=== PATIENT | female | born 2000 | race Caucasian/White ===

== ENCOUNTER 2025-06-14 16:36 | Emergency (ER) | payer OTHER, MEDICAID, SELFPAY ==
[2025-06-14 16:46] VITALS: BP 101/59; PULSE 65; RESP 14; TEMP 36.7; O2SAT 97
[2025-06-14 16:56] VITALS: O2SAT 98
--- NOTE | 2025-06-14 17:16 | ED_ITS ---
HPI - General Adult General Chief complaint: Seizure Stated complaint: Seizure History of Present Illness HPI narrative: This is a 25-year-old female with history of pseudoseizures presenting for a seizure. Patient was at work when she had her typical seizure. EMS was called and she was brought to the hospital. The patient is able to answer my questions appropriately. She is declining all workup. She would like to be discharged. Related Data Allergies Allergy/AdvReac Type Severity Reaction Status Date / Time amoxicillin Allergy Severe Anaphylaxis Verified 06/14/25 16:59 Exam Narrative: APPEARANCE: No apparent distress. Head: atraumatic. EYES: EOMI, PERRL NOSE: Atraumatic NECK: Trachea midline RESPIRATORY: No increased rate of breathing CARDIOVASCULAR: RRR, ABDOMINAL: Non-distended MUSCULOSKELETAl: No obvious deformities NEURO: Alert. Cranial nerves 2-12 grossly intact. Sensation light touch, motor function cerebellar function intact for 4 extremities. Gait exam was normal. SKIN:: Warm, dry. Normal color PSYCHIATRIC: Normal affect Course Vital Signs Vital signs: Vital Signs Temperature 98.0 F 06/14/25 16:46 Pulse Rate 65 06/14/25 16:46 Respiratory Rate 14 06/14/25 16:46 Blood Pressure 101/59 L 06/14/25 16:46 Pulse Oximetry 97 06/14/25 16:46 Oxygen Delivery Room Air 06/14/25 16:46 Temperature 98.0 F 06/14/25 16:46 Pulse Rate 65 06/14/25 16:46 Respiratory Rate 14 06/14/25 16:46 Blood Pressure 101/59 L 06/14/25 16:46 Pulse Oximetry 98 06/14/25 16:56 Oxygen Delivery Room Air 06/14/25 16:56 Medical Decision Making [facility] Narrative Medical decision making narrative: -Course: 25-year-old female with pseudoseizures presenting after typical seizure. By time she arrived in the ED she was able to answer questions appropriately. She has declined all intervention or evaluation. She can answer questions appropriately. Her neurologic exam is normal. She will be discharged. -DDX includes but is not limited to: Pseudo-seizure, seizure Vital Signs Vital Signs: Vital Signs Temperature 98.0 F 06/14/25 16:46 Pulse Rate 65 06/14/25 16:46 Respiratory Rate 14 06/14/25 16:46 Blood Pressure 101/59 L 06/14/25 16:46 Pulse Oximetry 97 06/14/25 16:46 Oxygen Delivery Room Air 06/14/25 16:46 Temperature 98.0 F 06/14/25 16:46 Pulse Rate 65 06/14/25 16:46 Respiratory Rate 14 06/14/25 16:46 Blood Pressure 101/59 L 06/14/25 16:46 Pulse Oximetry 98 06/14/25 16:56 Oxygen Delivery Room Air 06/14/25 16:56 Lab Data Labs: Lab Results 06/14/25 Range/Units 17:12 POC Capillary Glucose 94 (65-105) mg/dl Discharge Plan Discharge Clinical Impression: Seizure disorder Patient Disposition: Home Condition: Stable Instructions: Antibiotic Form, Nonepileptic Seizures (ED) Additional Instructions: Please follow-up with your neurologist. If you develop any new symptoms or want to be evaluated by Please return to the ED. Patient Language: Salvadorean
--- OUTSIDE RECORDS SUMMARY | 2025-06-14 18:21 | XMS_ITS | Encounter Summary ---
Author Organization [facility] Address [address] [place] [address] Care Team Providers Care Pharmacist In Charge Owner Name Role Phone Kassy Jay MD Primary Care Provider [phone] Encounter Details Date Type Department Care Team (Late Contact Info) Description 08/01/[address] [facility] Pediatrics - [facility] [address] [place] [address] [place] [address] [place] [address] Social History Tobacco Use Types Packs/Day Years Used Date Smoking Tobacco: Never Assessed Comments Unknown Sex and Gender Information Value Date Recorded Sex Assigned at Not on file Legal Sex Female 4:02 AM REJOINER Gender Identity Not on file Sexual Orientation Not on file documented as of this encounter Plan of Treatment Upcoming Encounters Date Type Department Care Team (Late Contact Info) Description 06/26/2025 9:00 AM CDT Video Visit [facility] Adult Psychiatry [place] [address] [address] Argelia Law NP [address] [address] 08/08/2025 7:30 AM REJOINER Video Visit [facility] Adult Psychiatry [place] [address] [address] [place] [address] Argelia Law NP 1420 [facility] [address] [place] [address] 09/25/2025 8:00 AM REJOINER Office Visit [facility] Primary Care - Kirby Herrmann [address] [place] [address] Kassy Jay MD [address] [place] [address] documented as of this encounter Visit Diagnoses Not on filedocumented in this encounter Additional Health Concerns Infection Onset Date Last Indicated Resolved Time R/O COVID-19 06/02/2021 06/03/2021 06/03/2021 7:34 PM CDT R/O COVID-19 12/22/2022 12/22/2022 12/22/2022 12:2 5 PM CDT R/O COVID-19 09/07/2023 09/07/2023 09/07/2023 9:52 PM REJOINER documented as of this encounter Care Teams Pharmacist In Charge Owner Relationship Specialty Start Date End Date Kassy Jay MD [address] [place] [address] PCP - General Family Practice 12/04/22 documented as of this encounter
--- OUTSIDE RECORDS SUMMARY | 2025-06-14 18:21 | XMS_ITS | Encounter Summary ---
Author Organization [facility] Address [address] [place] [address] Care Team Providers Care Supervising Film Or Videotape Editor Name Role Phone Kassy Jay MD Primary Care Provider [phone] Encounter Details Date Type Department Care Team (Latest Contact Info) Description 02/13/2005 Outpatient Historical [facility] Gustavo Sims ASTHMA UNSPECIFIED (Primary Dx) Social History Tobacco Use Types Packs/Day Years Used Date Smoking Tobacco: Never Assessed Comments Unknown Sex and Gender Information Value Date Recorded Sex Assigned at Not on file Legal Sex Female 4:02 AM NURSE PLASTICS Gender Identity Not on file Sexual Orientation Not on file documented as of this encounter Plan of Treatment Upcoming Encounters Date Type Department Care Team (Late st Contact Info) Description 06/26/2025 9:00 AM CDT Video Visit [facility] Adult Psychiatry [address] [place] [address] Argelia Law NP [address] [place] [address] [place] [address] 08/08/2025 7:30 AM NURSE PLASTICS Video Visit [facility] Adult Psychiatry [address] [place] [address] Argelia Law NP [address] [place] [address] [place] [address] 09/25/2025 8:00 AM NURSE PLASTICS Office Visit [facility] Primary Care - Kirby Herrmann [address] [place] [phone] Kassy Jay MD [address] [place] [place] [phone] documented as of this encounter Visit Diagnoses Diagnosis Unspecified asthma(493.90)- Primary Unspecified asthma documented in this encounter Additional Health Concerns Infection Onset Date Last Indicated Resolved Time R/O COVID-19 06/02/2021 06/03/2021 06/03/2021 7:34 PM CDT R/O COVID-19 12/22/2022 12/22/2022 12/22/2022 12:2 5 PM CDT R/O COVID-19 09/07/2023 09/07/2023 09/07/2023 9:52 PM NURSE PLASTICS documented as of this encounter Care Teams Supervising Film Or Videotape Editor Relationship Specialty Start Date End Date Kassy Jay MD [address] [place] [place] [phone] PCP - General Family Practice 12/04/22 documented as of this encounter
--- OUTSIDE RECORDS SUMMARY | 2025-06-14 18:21 | XMS_ITS | Encounter Summary ---
Author Organization [facility] Address [address] [place] [address] Care Team Providers Care Manager Ccu Name Role Phone Kassy Jay MD Primary Care Provider [phone] Encounter Details Date Type Department Care Team (Late Contact Info) Description 07/06/2002 Outpatient Historical [facility] Pediatrics - [facility] [address] [place] [address] [place] [address] [place] [address] Social History Tobacco Use Types Packs/Day Years Used Date Smoking Tobacco: Never Assessed Comments Unknown Sex and Gender Information Value Date Recorded Sex Assigned at Not on file Legal Sex Female 4:02 AM SHRIMPING BOAT CAPTAIN Gender Identity Not on file Sexual Orientation Not on file documented as of this encounter Plan of Treatment Upcoming Encounters Date Type Department Care Team (Late Contact Info) Description 06/26/2025 9:00 AM CDT Video Visit [facility] Adult Psychiatry [place] [address] [phone] Argelia Law NP [address] [address] 08/08/2025 7:30 AM SHRIMPING BOAT CAPTAIN Video Visit [facility] Adult Psychiatry [place] [address] [place] [address] [place] [address] Argelia Law NP 1420 [facility] [address] [place] [address] 09/25/2025 8:00 AM SHRIMPING BOAT CAPTAIN Office Visit [facility] Primary Care - Kirby Herrmann [address] [place] [address] Kassy Jay MD [address] [place] [address] [address] documented as of this encounter Visit Diagnoses Not on filedocumented in this encounter Additional Health Concerns Infection Onset Date Last Indicated Resolved Time R/O COVID-19 06/02/2021 06/03/2021 06/03/2021 7:34 PM CDT R/O COVID-19 12/22/2022 12/22/2022 12/22/2022 12:2 5 PM CDT R/O COVID-19 09/07/2023 09/07/2023 09/07/2023 9:52 PM SHRIMPING BOAT CAPTAIN documented as of this encounter Care Teams Manager Ccu Relationship Specialty Start Date End Date Kassy Jay MD [address] [place] [address] [phone] PCP - General Family Practice 12/04/22 documented as of this encounter
--- OUTSIDE RECORDS SUMMARY | 2025-06-14 18:21 | XMS_ITS | Encounter Summary ---
Author Organization [facility] Address [address] [place] [address] Care Team Providers Care Psychological Aide Name Role Phone Kassy Jay MD Primary Care Provider [phone] Encounter Details Date Type Department Care Team (Late Contact Info) Description 06/16/2002 Outpatient Historical [facility] Childrens Respiratory and Sleep Medicine [address] [facility] [address] [address] Gustavo Sims Social History Tobacco Use Types Packs/Day Years Used Date Smoking Tobacco: Never Assessed Comments Unknown Sex and Gender Information Value Date Recorded Sex Assigned at Not on file Legal Sex Female 4:02 AM SINGLE STROKE PREFORMER Gender Identity Not on file Sexual Orientation Not on file documented as of this encounter Plan of Treatment Upcoming Encounters Date Type Department Care Team ([facility] Contact Info) Description 06/26/2025 9:00 AM CDT Video Visit [facility] Adult Psychiatry [address] [phone] Argelia aLw NP [address] [place] [address] 08/08/2025 7:30 AM SINGLE STROKE PREFORMER Video Visit [facility] Adult Psychiatry [address] [address] Argelia Law NP [address] [place] [address] [place] [address] 09/25/2025 8:00 AM SINGLE STROKE PREFORMER Office Visit [facility] Primary Care - Kirby Herrmann [address] [place] [address] [address] Kassy Jay MD [address] [place] [address] [address] documented as of this encounter Visit Diagnoses Not on filedocumented in this encounter Additional Health Concerns Infection Onset Date Last Indicated Resolved Time R/O COVID-19 06/02/2021 06/03/2021 06/03/2021 7:34 PM CDT R/O COVID-19 12/22/2022 12/22/2022 12/22/2022 12:2 5 PM CDT R/O COVID-19 09/07/2023 09/07/2023 09/07/2023 9:52 PM SINGLE STROKE PREFORMER documented as of this encounter Care Teams Psychological Aide Relationship Specialty Start Date End Date Kassy Jay MD [address] [place] [place] [phone] PCP - General Family Practice 12/04/22 documented as of this encounter
--- OUTSIDE RECORDS SUMMARY | 2025-06-14 18:21 | XMS_ITS | Encounter Summary ---
Author Organization [facility] Address [address] [place] [address] Care Team Providers Care Channel Program Manager Name Role Phone Kassy Jay MD Primary Care Provider [phone] Encounter Details Date Type Department Care Team (Latest Contact Info) Description 04/13/2002 Outpatient Historical [facility] [place] [address] [facility] [address] [place] [address] UNS ASTHMA WOSTATUS ASTHMATICUS (Primary Dx) Social History Tobacco Use Types Packs/Day Years Used Date Smoking Tobacco: Never Assessed Comments Unknown Sex and Gender Information Value Date Recorded Sex Assigned at Not on file Legal Sex Female 4:02 AM TAILMAN Gender Identity Not on file Sexual Orientation Not on file documented as of this encounter Plan of Treatment Upcoming Encounters Date Type Department Care Team (Late st Contact Info) Description 06/26/2025 9:00 AM CDT Video Visit [facility] Adult Psychiatry [address] [address] Argelia Law NP [address] [id number] 08/08/2025 7:30 AM TAILMAN Video Visit [facility] Adult Psychiatry [address] [address] Argelia Law, EARLY CHILDHOOD LEAD TEACHER [address] [place] [address] [address] [place] [address] 09/25/2025 8:00 AM TAILMAN Office Visit [facility] Primary Care - Kirby Herrmann [address] [address] [address] Kassy Jay MD [address] [place] [address] [address] documented as of this encounter Visit Diagnoses Diagnosis Unspecified asthma(493.90)- Primary Unspecified asthma documented in this encounter Additional Health Concerns Infection Onset Date Last Indicated Resolved Time R/O COVID-19 06/02/2021 06/03/2021 06/03/2021 7:34 PM CDT R/O COVID-19 12/22/2022 12/22/2022 12/22/2022 12:2 5 PM CDT R/O COVID-19 09/07/2023 09/07/2023 09/07/2023 9:52 PM TAILMAN documented as of this encounter Care Teams Channel Program Manager Relationship Specialty Start Date End Date Kassy Jay MD [address] [place] [address] [phone] PCP - General Family Practice 12/04/22 documented as of this encounter
--- OUTSIDE RECORDS SUMMARY | 2025-06-14 18:21 | XMS_ITS | Encounter Summary ---
Author Organization [facility] Address [address] [place] [address] Care Team Providers Care Automatic I Threading Machine Feeder Name Role Phone Kassy Jay MD Primary Care Provider [phone] Encounter Details Date Type Department Care Team (Late Contact Info) Description 09/30/2002 Outpatient Historical [facility] Pediatrics - [facility] [address] [place] [address] [place] [address] [place] [address] Social History Tobacco Use Types Packs/Day Years Used Date Smoking Tobacco: Never Assessed Comments Unknown Sex and Gender Information Value Date Recorded Sex Assigned at Not on file Legal Sex Female 4:02 AM FISHERIES TECHNICAL OFFICER Gender Identity Not on file Sexual Orientation Not on file documented as of this encounter Plan of Treatment Upcoming Encounters Date Type Department Care Team (Late Contact Info) Description 06/26/2025 9:00 AM CDT Video Visit [facility] Adult Psychiatry [place] [address] [address] Argelia Law NP [address] [address] 08/08/2025 7:30 AM FISHERIES TECHNICAL OFFICER Video Visit [facility] Adult Psychiatry [place] [address] [place] [address] [address] [place] [address] Argelia Law NP 1420 [facility] [address] [place] [address] 09/25/2025 8:00 AM FISHERIES TECHNICAL OFFICER Office Visit [facility] Primary Care - Kirby Herrmann [address] [place] [address] [address] Kassy Jay MD [address] [place] [address] documented as of this encounter Visit Diagnoses Not on filedocumented in this encounter Additional Health Concerns Infection Onset Date Last Indicated Resolved Time R/O COVID-19 06/02/2021 06/03/2021 06/03/2021 7:34 PM CDT R/O COVID-19 12/22/2022 12/22/2022 12/22/2022 12:2 5 PM CDT R/O COVID-19 09/07/2023 09/07/2023 09/07/2023 9:52 PM FISHERIES TECHNICAL OFFICER documented as of this encounter Care Teams Automatic I Threading Machine Feeder Relationship Specialty Start Date End Date Kassy Jay MD [address] [place] [address] [phone] PCP - General Family Practice 12/04/22 documented as of this encounter
--- OUTSIDE RECORDS SUMMARY | 2025-06-14 18:21 | XMS_ITS | Encounter Summary ---
Author Organization [facility] Address [address] [place] [address] Care Team Providers Care Medical Laboratory Technologist Name Role Phone Kassy Jay MD Primary Care Provider [phone] Encounter Details Date Type Department Care Team (Latest Contact Info) Description 10/09/2003 Outpatient Historical [facility] Gustavo Sims ASTHMA UNSPECIFIED (Primary Dx) Social History Tobacco Use Types Packs/Day Years Used Date Smoking Tobacco: Never Assessed Comments Unknown Sex and Gender Information Value Date Recorded Sex Assigned at Not on file Legal Sex Female 4:02 AM TIME STUDY TECHNOLOGIST Gender Identity Not on file Sexual Orientation Not on file documented as of this encounter Plan of Treatment Upcoming Encounters Date Type Department Care Team (Late st Contact Info) Description 06/26/2025 9:00 AM CDT Video Visit [facility] Adult Psychiatry [address] [place] [address] Argelia Law NP [address] [place] [address] [place] [address] 08/08/2025 7:30 AM TIME STUDY TECHNOLOGIST Video Visit [facility] Adult Psychiatry [address] [place] [address] Argelia Law NP [address] [place] [address] [place] [address] 09/25/2025 8:00 AM TIME STUDY TECHNOLOGIST Office Visit [facility] Primary Care - Kirby Herrmann [address] [place] [phone] Kassy Jay MD [address] [place] [address] [phone] documented as of this encounter Visit Diagnoses Diagnosis Unspecified asthma(493.90)- Primary Unspecified asthma documented in this encounter Additional Health Concerns Infection Onset Date Last Indicated Resolved Time R/O COVID-19 06/02/2021 06/03/2021 06/03/2021 7:34 PM CDT R/O COVID-19 12/22/2022 12/22/2022 12/22/2022 12:2 5 PM CDT R/O COVID-19 09/07/2023 09/07/2023 09/07/2023 9:52 PM TIME STUDY TECHNOLOGIST documented as of this encounter Care Teams Medical Laboratory Technologist Relationship Specialty Start Date End Date Kassy Jay MD [address] [place] [address] [phone] PCP - General Family Practice 12/04/22 documented as of this encounter
--- OUTSIDE RECORDS SUMMARY | 2025-06-14 18:21 | XMS_ITS | Encounter Summary ---
Author Organization [facility] Address [address] [place] [address] Care Team Providers Care Hot Packer Name Role Phone Kassy Jay MD Primary Care Provider [phone] Encounter Details Date Type Department Care Team (Late Contact Info) Description 04/07/2002 Outpatient Historical [facility] Pediatrics - [facility] [address] [address] [facility] [address] [place] [address] Darren Tabor MD NO ADDRESS ON FILE Social History Tobacco Use Types Packs/Day Years Used Date Smoking Tobacco: Never Assessed Comments Unknown Sex and Gender Information Value Date Recorded Sex Assigned at Not on file Legal Sex Female 4:02 AM BLENDER SNUFF Gender Identity Not on file Sexual Orientation Not on file documented as of this encounter Plan of Treatment Upcoming Encounters Date Type Department Care Team (Late Contact Info) Description 06/26/2025 9:00 AM CDT Video Visit [facility] Adult Psychiatry [address] [address] Argelia Law NP [address] [place] [address] 08/08/2025 7:30 AM BLENDER SNUFF Video Visit [facility] Adult Psychiatry [address] [address] Argelia Law NP [address] [place] [address] [address] [place] [address] 09/25/2025 8:00 AM BLENDER SNUFF Office Visit [facility] Primary Care - Kirby Herrmann [address] [place] [address] Kassy Jay MD [address] [place] [place] [phone] documented as of this encounter Visit Diagnoses Not on filedocumented in this encounter Additional Health Concerns Infection Onset Date Last Indicated Resolved Time R/O COVID-19 06/02/2021 06/03/2021 06/03/2021 7:34 PM CDT R/O COVID-19 12/22/2022 12/22/2022 12/22/2022 12:2 5 PM CDT R/O COVID-19 09/07/2023 09/07/2023 09/07/2023 9:52 PM BLENDER SNUFF documented as of this encounter Care Teams Hot Packer Relationship Specialty Start Date End Date Kassy Jay MD [address] [place] [address] [phone] PCP - General Family Practice 12/04/22 documented as of this encounter
--- OUTSIDE RECORDS SUMMARY | 2025-06-14 18:21 | XMS_ITS | Encounter Summary ---
Author Organization [facility] Address [address] [place] [address] Care Team Providers Care Credit Card Interviewer Name Role Phone Kassy Jay MD Primary Care Provider [phone] Encounter Details Date Type Department Care Team (Late Contact Info) Description 04/21/2003 Outpatient Historical [facility] Pediatrics - [facility] [address] [facility] [address] [facility] [address] [place] [address] [place] [address] [place] [address] Social History Tobacco Use Types Packs/Day Years Used Date Smoking Tobacco: Never Assessed Comments Unknown Sex and Gender Information Value Date Recorded Sex Assigned at Not on file Legal Sex Female 4:02 AM TANK INSULATOR RUBBER Gender Identity Not on file Sexual Orientation Not on file documented as of this encounter Plan of Treatment Upcoming Encounters Date Type Department Care Team (Late Contact Info) Description 06/26/2025 9:00 AM CDT Video Visit [facility] Adult Psychiatry [place] [address] [address] Argelia Law NP [address] [address] 08/08/2025 7:30 AM TANK INSULATOR RUBBER Video Visit [facility] Adult Psychiatry [place] [address] [place] [address] [address] [place] [address] Argelia Law NP 1420 [facility] [address] [place] [address] [address] 09/25/2025 8:00 AM TANK INSULATOR RUBBER Office Visit [facility] Primary Care - Kirby Herrmann [address] [address] Kassy Jay MD [address] [place] [address] [address] documented as of this encounter Visit Diagnoses Not on filedocumented in this encounter Additional Health Concerns Infection Onset Date Last Indicated Resolved Time R/O COVID-19 06/02/2021 06/03/2021 06/03/2021 7:34 PM CDT R/O COVID-19 12/22/2022 12/22/2022 12/22/2022 12:2 5 PM CDT R/O COVID-19 09/07/2023 09/07/2023 09/07/2023 9:52 PM TANK INSULATOR RUBBER documented as of this encounter Care Teams Credit Card Interviewer Relationship Specialty Start Date End Date Kassy Jay MD [address] [place] [address] [phone] PCP - General Family Practice 12/04/22 documented as of this encounter
--- OUTSIDE RECORDS SUMMARY | 2025-06-14 18:21 | XMS_ITS | Encounter Summary ---
Author Organization [facility] Address [address] [place] [address] Care Team Providers Care Procurement Representative Name Role Phone Kassy Jay MD Primary Care Provider [phone] Encounter Details Date Type Department Care Team (Late Contact Info) Description 10/09/2003 Outpatient Historical [facility] Childrens Respiratory and Sleep Medicine [address] [facility] [address] [address] Gustavo Sims Social History Tobacco Use Types Packs/Day Years Used Date Smoking Tobacco: Never Assessed Comments Unknown Sex and Gender Information Value Date Recorded Sex Assigned at Not on file Legal Sex Female 4:02 AM EXPANDED FUNCTION DENTAL ASSISTANT Gender Identity Not on file Sexual Orientation Not on file documented as of this encounter Plan of Treatment Upcoming Encounters Date Type Department Care Team ([facility] Contact Info) Description 06/26/2025 9:00 AM CDT Video Visit [facility] Adult Psychiatry [address] [phone] Argelia Law NP [address] [place] [address] 08/08/2025 7:30 AM EXPANDED FUNCTION DENTAL ASSISTANT Video Visit [facility] Adult Psychiatry [address] [address] Argelia Law NP [address] [place] [address] [place] [address] 09/25/2025 8:00 AM EXPANDED FUNCTION DENTAL ASSISTANT Office Visit [facility] Primary Care - Kirby Herrmann [address] [place] [address] Kassy Jay MD [address] [place] [address] [address] documented as of this encounter Visit Diagnoses Not on filedocumented in this encounter Additional Health Concerns Infection Onset Date Last Indicated Resolved Time R/O COVID-19 06/02/2021 06/03/2021 06/03/2021 7:34 PM CDT R/O COVID-19 12/22/2022 12/22/2022 12/22/2022 12:2 5 PM CDT R/O COVID-19 09/07/2023 09/07/2023 09/07/2023 9:52 PM EXPANDED FUNCTION DENTAL ASSISTANT documented as of this encounter Care Teams Procurement Representative Relationship Specialty Start Date End Date Kassy Jay MD [address] [place] [address] [phone] PCP - General Family Practice 12/04/22 documented as of this encounter
--- OUTSIDE RECORDS SUMMARY | 2025-06-14 18:21 | XMS_ITS | Encounter Summary ---
Author Organization [facility] Address [address] [place] [address] Care Team Providers Care Dependency Case Manager Name Role Phone Kassy Jay MD Primary Care Provider [phone] Encounter Details Date Type Department Care Team (Late Contact Info) Description 10/07/2002 Outpatient Historical [facility] - [facility] [address] [place] [address] [place] [address] [place] [address] Social History Tobacco Use Types Packs/Day Years Used Date Smoking Tobacco: Never Assessed Comments Unknown Sex and Gender Information Value Date Recorded Sex Assigned at Not on file Legal Sex Female 4:02 AM CUSTOMS HOUSE BROKER Gender Identity Not on file Sexual Orientation Not on file documented as of this encounter Plan of Treatment Upcoming Encounters Date Type Department Care Team (Late Contact Info) Description 06/26/2025 9:00 AM CDT Video Visit [facility] Adult Psychiatry [place] [address] [phone] Argelia Law NP [address] [address] 08/08/2025 7:30 AM CUSTOMS HOUSE BROKER Video Visit [facility] Adult Psychiatry [place] [address] [place] [address] [address] [address] Argelia Law NP 1420 [facility] [address] [address] 09/25/2025 8:00 AM CUSTOMS HOUSE BROKER Office Visit [facility] Primary Care - Kirby Herr[place] [address] [place] [address] Kassy Jay MD [address] [place] [address] documented as of this encounter Visit Diagnoses Not on filedocumented in this encounter Additional Health Concerns Infection Onset Date Last Indicated Resolved Time R/O COVID-19 06/02/2021 06/03/2021 06/03/2021 7:34 PM CDT R/O COVID-19 12/22/2022 12/22/2022 12/22/2022 12:2 5 PM CDT R/O COVID-19 09/07/2023 09/07/2023 09/07/2023 9:52 PM CUSTOMS HOUSE BROKER documented as of this encounter Care Teams Dependency Case Manager Relationship Specialty Start Date End Date Kassy Jay MD [address] [place] [address] [address] PCP - General Family Practice 12/04/22 documented as of this encounter
--- OUTSIDE RECORDS SUMMARY | 2025-06-14 18:21 | XMS_ITS | Encounter Summary ---
Author Organization [facility] Address [address] [place] [address] Care Team Providers Care Senior Counsel Commercial Name Role Phone Kassy Jay MD Primary Care Provider [phone] Encounter Details Date Type Department Care Team (Late Contact Info) Description 12/15/2003 Outpatient Historical [facility] Respiratory and Sleep Medicine [address] [facility] [address] [address] Gustavo Sims Social History Tobacco Use Types Packs/Day Years Used Date Smoking Tobacco: Never Assessed Comments Unknown Sex and Gender Information Value Date Recorded Sex Assigned at Not on file Legal Sex Female 4:02 AM PRESCRIPTION CLERK LENSES Gender Identity Not on file Sexual Orientation Not on file documented as of this encounter Plan of Treatment Upcoming Encounters Date Type Department Care Team ([facility] Contact Info) Description 06/26/2025 9:00 AM CDT Video Visit [facility] Adult Psychiatry [address] [phone] Argelia Law NP [address] [place] [place] [address] 08/08/2025 7:30 AM PRESCRIPTION CLERK LENSES Video Visit [facility] Adult Psychiatry [address] [phone] Argelia Law NP [address] [place] [address] [place] [address] 09/25/2025 8:00 AM PRESCRIPTION CLERK LENSES Office Visit [facility] Primary Care - Kirby Herrmann [address] [place] [address] Kassy Jay MD [address] [place] [address] documented as of this encounter Visit Diagnoses Not on filedocumented in this encounter Additional Health Concerns Infection Onset Date Last Indicated Resolved Time R/O COVID-19 06/02/2021 06/03/2021 06/03/2021 7:34 PM CDT R/O COVID-19 12/22/2022 12/22/2022 12/22/2022 12:2 5 PM CDT R/O COVID-19 09/07/2023 09/07/2023 09/07/2023 9:52 PM PRESCRIPTION CLERK LENSES documented as of this encounter Care Teams Senior Counsel Commercial Relationship Specialty Start Date End Date Kassy Jay MD [address] [place] [address] [phone] PCP - General Family Practice 12/04/22 documented as of this encounter
--- OUTSIDE RECORDS SUMMARY | 2025-06-14 18:21 | XMS_ITS | Encounter Summary ---
Author Organization [facility] Address [address] [place] [address] Care Team Providers Care Environmental Change Analyst Name Role Phone Kassy Jay MD Primary Care Provider [phone] Encounter Details Date Type Department Care Team (Late Contact Info) Description 10/09/2003 Outpatient Historical [facility] Childrens Respiratory and Sleep Medicine [address] [facility] [address] [address] Gustavo Sims Social History Tobacco Use Types Packs/Day Years Used Date Smoking Tobacco: Never Assessed Comments Unknown Sex and Gender Information Value Date Recorded Sex Assigned at Not on file Legal Sex Female 4:02 AM PERCH MACHINE INSPECTOR Gender Identity Not on file Sexual Orientation Not on file documented as of this encounter Plan of Treatment Upcoming Encounters Date Type Department Care Team ([facility] Contact Info) Description 06/26/2025 9:00 AM CDT Video Visit [facility] Adult Psychiatry [address] [phone] Argelia Law NP [address] [place] [address] 08/08/2025 7:30 AM PERCH MACHINE INSPECTOR Video Visit [facility] Adult Psychiatry [address] [phone] Argelia Law NP [address] [place] [address] [place] [address] 09/25/2025 8:00 AM PERCH MACHINE INSPECTOR Office Visit [facility] Primary Care - Kirby Herrmann [address] [place] [address] [address] Kassy Jay MD [address] [place] [address] [address] documented as of this encounter Visit Diagnoses Not on filedocumented in this encounter Additional Health Concerns Infection Onset Date Last Indicated Resolved Time R/O COVID-19 06/02/2021 06/03/2021 06/03/2021 7:34 PM CDT R/O COVID-19 12/22/2022 12/22/2022 12/22/2022 12:2 5 PM CDT R/O COVID-19 09/07/2023 09/07/2023 09/07/2023 9:52 PM PERCH MACHINE INSPECTOR documented as of this encounter Care Teams Environmental Change Analyst Relationship Specialty Start Date End Date Kassy Jay MD [address] [place] [phone] PCP - General Family Practice 12/04/22 documented as of this encounter
--- OUTSIDE RECORDS SUMMARY | 2025-06-14 18:21 | XMS_ITS | Encounter Summary ---
Author Organization [facility] Address [address] [place] [address] Care Team Providers Care Stone Layer Name Role Phone Kassy Jay MD Primary Care Provider [phone] Encounter Details Date Type Department Care Team (Late Contact Info) Description 02/10/2003 Outpatient Historical [facility] - [facility] [address] [place] [address] [place] [address] [place] [address] Social History Tobacco Use Types Packs/Day Years Used Date Smoking Tobacco: Never Assessed Comments Unknown Sex and Gender Information Value Date Recorded Sex Assigned at Not on file Legal Sex Female 4:02 AM PHOTOGRAPHER FINISH Gender Identity Not on file Sexual Orientation Not on file documented as of this encounter Plan of Treatment Upcoming Encounters Date Type Department Care Team (Late Contact Info) Description 06/26/2025 9:00 AM CDT Video Visit [facility] Adult Psychiatry [place] [address] [phone] Argelia Law NP [address] [address] 08/08/2025 7:30 AM PHOTOGRAPHER FINISH Video Visit [facility] Adult Psychiatry [place] [address] [place] [address] [place] [address] Argelia Law NP 1420 [facility] [address] [address] 09/25/2025 8:00 AM PHOTOGRAPHER FINISH Office Visit [facility] Primary Care - Kirby Herrmann [address] [address] [address] Kassy Jay MD [address] [place] [address] documented as of this encounter Visit Diagnoses Not on filedocumented in this encounter Additional Health Concerns Infection Onset Date Last Indicated Resolved Time R/O COVID-19 06/02/2021 06/03/2021 06/03/2021 7:34 PM CDT R/O COVID-19 12/22/2022 12/22/2022 12/22/2022 12:2 5 PM CDT R/O COVID-19 09/07/2023 09/07/2023 09/07/2023 9:52 PM PHOTOGRAPHER FINISH documented as of this encounter Care Teams Stone Layer Relationship Specialty Start Date End Date Kassy Jay MD [address] [place] [address] [address] PCP - General Family Practice 12/04/22 documented as of this encounter
--- OUTSIDE RECORDS SUMMARY | 2025-06-14 18:21 | XMS_ITS | Encounter Summary ---
Author Organization [facility] Address [address] [place] [address] Care Team Providers Care Extractor Loader And Unloader Name Role Phone Kassy Jay MD Primary Care Provider [phone] Encounter Details Date Type Department Care Team (Late Contact Info) Description 03/27/2004 Outpatient Historical [facility] Childrens Respiratory and Sleep Medicine [address] [facility] [address] [address] Gustavo Sims Social History Tobacco Use Types Packs/Day Years Used Date Smoking Tobacco: Never Assessed Comments Unknown Sex and Gender Information Value Date Recorded Sex Assigned at Not on file Legal Sex Female 4:02 AM RUBBER MILL OPERATOR Gender Identity Not on file Sexual Orientation Not on file documented as of this encounter Plan of Treatment Upcoming Encounters Date Type Department Care Team ([facility] Contact Info) Description 06/26/2025 9:00 AM CDT Video Visit [facility] Adult Psychiatry [address] [phone] Argelia Law NP [address] [place] [address] 08/08/2025 7:30 AM RUBBER MILL OPERATOR Video Visit [facility] Adult Psychiatry [address] [address] Argelia Law NP [address] [place] [address] [place] [address] 09/25/2025 8:00 AM RUBBER MILL OPERATOR Office Visit [facility] Primary Care - Kirby Herrmann [address] [place] [address] [address] Kassy Jay MD [address] [place] [address] documented as of this encounter Visit Diagnoses Not on filedocumented in this encounter Additional Health Concerns Infection Onset Date Last Indicated Resolved Time R/O COVID-19 06/02/2021 06/03/2021 06/03/2021 7:34 PM CDT R/O COVID-19 12/22/2022 12/22/2022 12/22/2022 12:2 5 PM CDT R/O COVID-19 09/07/2023 09/07/2023 09/07/2023 9:52 PM RUBBER MILL OPERATOR documented as of this encounter Care Teams Extractor Loader And Unloader Relationship Specialty Start Date End Date Kassy Jay MD [address] [phone] PCP - General Family Practice 12/04/22 documented as of this encounter
--- OUTSIDE RECORDS SUMMARY | 2025-06-14 18:21 | XMS_ITS | Encounter Summary ---
Author Organization [facility] Address [address] [place] [address] Care Team Providers Care Nuclear Supervising Operator Name Role Phone Kassy Jay MD Primary Care Provider [phone] Encounter Details Date Type Department Care Team (Late Contact Info) Description 04/13/2002 Outpatient Historical [facility] Department of Peds at [address] [phone] Diandra Brown MD [address] [facility] [address] [place] [address] [place] [phone] Social History Tobacco Use Types Packs/Day Years Used Date Smoking Tobacco: Never Assessed Comments Unknown Sex and Gender Information Value Date Recorded Sex Assigned at Not on file Legal Sex Female 4:02 AM DRYING FRAME OPERATOR Gender Identity Not on file Sexual Orientation Not on file documented as of this encounter Plan of Treatment Upcoming Encounters Date Type Department Care Team (Late Contact Info) Description 06/26/2025 9:00 AM CDT Video Visit [facility] Adult Psychiatry [place] [address] [phone] Argelia Law NP [address] [address] 08/08/2025 7:30 AM DRYING FRAME OPERATOR Video Visit [facility] Adult Psychiatry [place] [address] [place] [address] [address] [place] [address] Argelia Law NP 1420 [facility] [address] [address] 09/25/2025 8:00 AM DRYING FRAME OPERATOR Office Visit [facility] Primary Care - Kirby Herrmann [address] [place] [address] [address] Kassy Jay MD [address] [place] [address] documented as of this encounter Visit Diagnoses Not on filedocumented in this encounter Additional Health Concerns Infection Onset Date Last Indicated Resolved Time R/O COVID-19 06/02/2021 06/03/2021 06/03/2021 7:34 PM CDT R/O COVID-19 12/22/2022 12/22/2022 12/22/2022 12:2 5 PM CDT R/O COVID-19 09/07/2023 09/07/2023 09/07/2023 9:52 PM DRYING FRAME OPERATOR documented as of this encounter Care Teams Nuclear Supervising Operator Relationship Specialty Start Date End Date Kassy Jay MD [address] [place] [phone] PCP - General Family Practice 12/04/22 documented as of this encounter
--- OUTSIDE RECORDS SUMMARY | 2025-06-14 18:21 | XMS_ITS | Encounter Summary ---
Author Organization [facility] Address [address] [place] [address] Care Team Providers Care Silver Solderer Name Role Phone Kassy Jay MD Primary Care Provider [phone] Encounter Details Date Type Department Care Team (Late Contact Info) Description 04/13/2002 Outpatient Historical [facility] Pediatrics - [facility] [address] [place] [address] [place] [address] [place] [address] Social History Tobacco Use Types Packs/Day Years Used Date Smoking Tobacco: Never Assessed Comments Unknown Sex and Gender Information Value Date Recorded Sex Assigned at Not on file Legal Sex Female 4:02 AM PRODUCT SCIENTIST Gender Identity Not on file Sexual Orientation Not on file documented as of this encounter Plan of Treatment Upcoming Encounters Date Type Department Care Team (Late Contact Info) Description 06/26/2025 9:00 AM CDT Video Visit [facility] Adult Psychiatry [place] [address] [phone] Argelia Law NP [address] [address] 08/08/2025 7:30 AM PRODUCT SCIENTIST Video Visit [facility] Adult Psychiatry [place] [address] [place] [address] [place] [address] Argelia Law NP 1420 [facility] [address] [address] 09/25/2025 8:00 AM PRODUCT SCIENTIST Office Visit [facility] Primary Care - Kirby Herrmann [address] [place] [address] Kassy Jay MD [address] [place] [address] [address] documented as of this encounter Visit Diagnoses Not on filedocumented in this encounter Additional Health Concerns Infection Onset Date Last Indicated Resolved Time R/O COVID-19 06/02/2021 06/03/2021 06/03/2021 7:34 PM CDT R/O COVID-19 12/22/2022 12/22/2022 12/22/2022 12:2 5 PM CDT R/O COVID-19 09/07/2023 09/07/2023 09/07/2023 9:52 PM PRODUCT SCIENTIST documented as of this encounter Care Teams Silver Solderer Relationship Specialty Start Date End Date Kassy Jay MD [address] [place] [address] [phone] PCP - General Family Practice 12/04/22 documented as of this encounter
--- OUTSIDE RECORDS SUMMARY | 2025-06-14 18:21 | XMS_ITS | Encounter Summary ---
Author Organization [facility] Address [address] [place] [address] Care Team Providers Care Coil Connector Name Role Phone Kassy Jay MD Primary Care Provider Encounter Details Date Type Department Care Team (Late Contact Info) Description 07/18/2004 Outpatient Historical [facility] Pediatrics - [facility] [address] [facility] [address] [place] [address] [place] [address] [facility] [address] [address] [address] [place] [address] Social History Tobacco Use Types Packs/Day Years Used Date Smoking Tobacco: Never Assessed Comments Unknown Sex and Gender Information Value Date Recorded Sex Assigned at Not on file Legal Sex Female 4:02 AM TECHNICAL SERVICES ANALYST Gender Identity Not on file Sexual Orientation Not on file documented as of this encounter Plan of Treatment Upcoming Encounters Date Type Department Care Team (Late Contact Info) Description 06/26/2025 9:00 AM CDT Video Visit [facility] Adult Psychiatry [place] [address] [phone] Argelia Law NP [address] [address] 08/08/2025 7:30 AM TECHNICAL SERVICES ANALYST Video Visit [facility] Adult Psychiatry [place] [address] [place] [address] [address] [place] [address] Argelia Law NP 1420 [facility] [address] [address] 09/25/2025 8:00 AM TECHNICAL SERVICES ANALYST Office Visit [facility] Primary Care - Kirby Herrmann [address] [address] Kassy Jay MD [address] [place] [address] [address] documented as of this encounter Visit Diagnoses Not on filedocumented in this encounter Additional Health Concerns Infection Onset Date Last Indicated Resolved Time R/O COVID-19 06/02/2021 06/03/2021 06/03/2021 7:34 PM CDT R/O COVID-19 12/22/2022 12/22/2022 12/22/2022 12:2 5 PM CDT R/O COVID-19 09/07/2023 09/07/2023 09/07/2023 9:52 PM TECHNICAL SERVICES ANALYST documented as of this encounter Care Teams Coil Connector Relationship Specialty Start Date End Date Kassy Jay MD [address] [place] [address] [address] PCP - General Family Practice 12/04/22 documented as of this encounter
--- OUTSIDE RECORDS SUMMARY | 2025-06-14 18:21 | XMS_ITS | Encounter Summary ---
Author Organization [facility] Address [address] [place] [address] Care Team Providers Care Hod Carrier Name Role Phone Kassy Jay MD Primary Care Provider [phone] Encounter Details Date Type Department Care Team (Late Contact Info) Description 08/23/2001 Outpatient Historical [facility] Pediatrics - [facility] [address] [facility] [address] [place] [address] [place] [address] [place] [address] Social History Tobacco Use Types Packs/Day Years Used Date Smoking Tobacco: Never Assessed Comments Unknown Sex and Gender Information Value Date Recorded Sex Assigned at Not on file Legal Sex Female 4:02 AM LAST MODEL DEPARTMENT SUPERVISOR Gender Identity Not on file Sexual Orientation Not on file documented as of this encounter Plan of Treatment Upcoming Encounters Date Type Department Care Team (Late Contact Info) Description 06/26/2025 9:00 AM CDT Video Visit [facility] Adult Psychiatry [place] [address] [phone] Argelia Law NP [address] [address] 08/08/2025 7:30 AM LAST MODEL DEPARTMENT SUPERVISOR Video Visit [facility] Adult Psychiatry [place] [address] [place] [address] [address] [address] Argelia Law NP 1420 [facility] [address] [address] 09/25/2025 8:00 AM LAST MODEL DEPARTMENT SUPERVISOR Office Visit [facility] Primary Care - Kirby Herrmann [address] [place] [address] [address] Kassy Jay MD [address] [place] [address] documented as of this encounter Visit Diagnoses Not on filedocumented in this encounter Additional Health Concerns Infection Onset Date Last Indicated Resolved Time R/O COVID-19 06/02/2021 06/03/2021 06/03/2021 7:34 PM CDT R/O COVID-19 12/22/2022 12/22/2022 12/22/2022 12:2 5 PM CDT R/O COVID-19 09/07/2023 09/07/2023 09/07/2023 9:52 PM LAST MODEL DEPARTMENT SUPERVISOR documented as of this encounter Care Teams Hod Carrier Relationship Specialty Start Date End Date Kassy Jay MD [address] [place] [address] [address] PCP - General Family Practice 12/04/22 documented as of this encounter
--- OUTSIDE RECORDS SUMMARY | 2025-06-14 18:21 | XMS_ITS | Encounter Summary ---
Author Organization [facility] Address [address] [place] [address] Care Team Providers Care Application Processor Name Role Phone Kassy Jay MD Primary Care Provider [phone] Encounter Details Date Type Department Care Team (Latest Contact Info) Description 12/15/2003 Outpatient Historical [facility] Gustavo Sims ASTHMA UNSPECIFIED (Primary Dx) Social History Tobacco Use Types Packs/Day Years Used Date Smoking Tobacco: Never Assessed Comments Unknown Sex and Gender Information Value Date Recorded Sex Assigned at Not on file Legal Sex Female 4:02 AM MORTGAGE ADVISOR Gender Identity Not on file Sexual Orientation Not on file documented as of this encounter Plan of Treatment Upcoming Encounters Date Type Department Care Team (Late st Contact Info) Description 06/26/2025 9:00 AM CDT Video Visit [facility] Adult Psychiatry [address] [place] [address] Argelia Law NP [address] [place] [address] [place] [address] 08/08/2025 7:30 AM MORTGAGE ADVISOR Video Visit [facility] Adult Psychiatry [address] [place] [address] Argelia Law NP [address] [place] [address] [place] [address] 09/25/2025 8:00 AM MORTGAGE ADVISOR Office Visit [facility] Primary Care - Kirby Herrmann [address] [place] [phone] Kassy Jay MD [address] [place] [place] [phone] documented as of this encounter Visit Diagnoses Diagnosis Unspecified asthma(493.90)- Primary Unspecified asthma documented in this encounter Additional Health Concerns Infection Onset Date Last Indicated Resolved Time R/O COVID-19 06/02/2021 06/03/2021 06/03/2021 7:34 PM CDT R/O COVID-19 12/22/2022 12/22/2022 12/22/2022 12:2 5 PM CDT R/O COVID-19 09/07/2023 09/07/2023 09/07/2023 9:52 PM MORTGAGE ADVISOR documented as of this encounter Care Teams Application Processor Relationship Specialty Start Date End Date Kassy Jay MD [address] [place] [phone] PCP - General Family Practice 12/04/22 documented as of this encounter
--- OUTSIDE RECORDS SUMMARY | 2025-06-14 18:21 | XMS_ITS | Encounter Summary ---
Author Organization [facility] Address [address] [place] [address] Care Team Providers Care Sales Analytics Manager Name Role Phone Kassy Jay MD Primary Care Provider [phone] Encounter Details Date Type Department Care Team (Late Contact Info) Description 07/18/2004 Outpatient Historical [facility] Pediatrics - [facility] [address] [facility] [address] [place] [address] [place] [address] [place] [address] Social History Tobacco Use Types Packs/Day Years Used Date Smoking Tobacco: Never Assessed Comments Unknown Sex and Gender Information Value Date Recorded Sex Assigned at Not on file Legal Sex Female 4:02 AM CANDLE WRAPPER Gender Identity Not on file Sexual Orientation Not on file documented as of this encounter Plan of Treatment Upcoming Encounters Date Type Department Care Team (Late Contact Info) Description 06/26/2025 9:00 AM CDT Video Visit [facility] Adult Psychiatry [place] [address] [address] Argelia Law NP [address] [address] 08/08/2025 7:30 AM CANDLE WRAPPER Video Visit [facility] Adult Psychiatry [place] [address] [address] [place] [address] Argelia Law NP 1420 [facility] [address] [address] [place] [address] 09/25/2025 8:00 AM CANDLE WRAPPER Office Visit [facility] Primary Care - Kirby Herr[place] [address] [place] [address] Kassy Jay MD [address] [place] [address] documented as of this encounter Visit Diagnoses Not on filedocumented in this encounter Additional Health Concerns Infection Onset Date Last Indicated Resolved Time R/O COVID-19 06/02/2021 06/03/2021 06/03/2021 7:34 PM CDT R/O COVID-19 12/22/2022 12/22/2022 12/22/2022 12:2 5 PM CDT R/O COVID-19 09/07/2023 09/07/2023 09/07/2023 9:52 PM CANDLE WRAPPER documented as of this encounter Care Teams Sales Analytics Manager Relationship Specialty Start Date End Date Kassy Jay MD [address] [place] [address] PCP - General Family Practice 12/04/22 documented as of this encounter
--- OUTSIDE RECORDS SUMMARY | 2025-06-14 18:21 | XMS_ITS | Encounter Summary ---
Author Organization [facility] Address [address] [place] [address] Care Team Providers Care Acid Adjuster Name Role Phone Kassy Jay MD Primary Care Provider [phone] Encounter Details Date Type Department Care Team (Late Contact Info) Description 03/15/2002 Outpatient Historical [facility] Pediatrics - [facility] [address] [address] [place] [address] [place] [address] [place] [address] Social History Tobacco Use Types Packs/Day Years Used Date Smoking Tobacco: Never Assessed Comments Unknown Sex and Gender Information Value Date Recorded Sex Assigned at Not on file Legal Sex Female 4:02 AM EQUAL EMPLOYMENT OPPORTUNITY OFFICER Gender Identity Not on file Sexual Orientation Not on file documented as of this encounter Plan of Treatment Upcoming Encounters Date Type Department Care Team (Late Contact Info) Description 06/26/2025 9:00 AM CDT Video Visit [facility] Adult Psychiatry [place] [address] [address] Argelia Law NP [address] [address] 08/08/2025 7:30 AM EQUAL EMPLOYMENT OPPORTUNITY OFFICER Video Visit [facility] Adult Psychiatry [place] [address] [address] [place] [address] Argelia Law NP 1420 [facility] [address] [place] [address] 09/25/2025 8:00 AM EQUAL EMPLOYMENT OPPORTUNITY OFFICER Office Visit [facility] Primary Care - Kirby Herrmann [address] [place] [address] Kassy Jay MD [address] [place] [address] documented as of this encounter Visit Diagnoses Not on filedocumented in this encounter Additional Health Concerns Infection Onset Date Last Indicated Resolved Time R/O COVID-19 06/02/2021 06/03/2021 06/03/2021 7:34 PM CDT R/O COVID-19 12/22/2022 12/22/2022 12/22/2022 12:2 5 PM CDT R/O COVID-19 09/07/2023 09/07/2023 09/07/2023 9:52 PM EQUAL EMPLOYMENT OPPORTUNITY OFFICER documented as of this encounter Care Teams Acid Adjuster Relationship Specialty Start Date End Date Kassy Jay MD [address] [place] [address] [phone] PCP - General Family Practice 12/04/22 documented as of this encounter
--- OUTSIDE RECORDS SUMMARY | 2025-06-14 18:21 | XMS_ITS | Encounter Summary ---
Author Organization [facility] Address [address] [place] [address] Care Team Providers Care Holistic Nutritionist Name Role Phone Kassy Jay MD Primary Care Provider [phone] Encounter Details Date Type Department Care Team (Latest Contact Info) Description 03/27/2004 Outpatient Historical [facility] Gustavo Sims ASTHMA UNSPECIFIED (Primary Dx) Social History Tobacco Use Types Packs/Day Years Used Date Smoking Tobacco: Never Assessed Comments Unknown Sex and Gender Information Value Date Recorded Sex Assigned at Not on file Legal Sex Female 4:02 AM LOAD DISPATCHER LOCAL Gender Identity Not on file Sexual Orientation Not on file documented as of this encounter Plan of Treatment Upcoming Encounters Date Type Department Care Team (Late st Contact Info) Description 06/26/2025 9:00 AM CDT Video Visit [facility] Adult Psychiatry [address] [place] [address] Argelia Law NP [address] [place] [address] [place] [address] 08/08/2025 7:30 AM LOAD DISPATCHER LOCAL Video Visit [facility] Adult Psychiatry [address] [place] [address] Argelia Law NP [address] [place] [address] [place] [address] 09/25/2025 8:00 AM LOAD DISPATCHER LOCAL Office Visit [facility] Primary Care - Kirby Herrmann [address] [place] [phone] Kassy Jay MD [address] [place] [phone] documented as of this encounter Visit Diagnoses Diagnosis Unspecified asthma(493.90)- Primary Unspecified asthma documented in this encounter Additional Health Concerns Infection Onset Date Last Indicated Resolved Time R/O COVID-19 06/02/2021 06/03/2021 06/03/2021 7:34 PM CDT R/O COVID-19 12/22/2022 12/22/2022 12/22/2022 12:2 5 PM CDT R/O COVID-19 09/07/2023 09/07/2023 09/07/2023 9:52 PM LOAD DISPATCHER LOCAL documented as of this encounter Care Teams Holistic Nutritionist Relationship Specialty Start Date End Date Kassy Jay MD [address] [place] [address] [phone] PCP - General Family Practice 12/04/22 documented as of this encounter
--- OUTSIDE RECORDS SUMMARY | 2025-06-14 18:21 | XMS_ITS | Encounter Summary ---
Author Organization [facility] Address [address] [place] [address] Care Team Providers Care Farm Management Professor Name Role Phone Kassy Jay MD Primary Care Provider [phone] Encounter Details Date Type Department Care Team (Late Contact Info) Description 04/25/2003 Outpatient Historical [facility] Pediatrics - [facility] [address] [facility] [address] [place] [address] [place] [address] [place] [address] Social History Tobacco Use Types Packs/Day Years Used Date Smoking Tobacco: Never Assessed Comments Unknown Sex and Gender Information Value Date Recorded Sex Assigned at Not on file Legal Sex Female 4:02 AM GAS LOAD DISPATCHER Gender Identity Not on file Sexual Orientation Not on file documented as of this encounter Plan of Treatment Upcoming Encounters Date Type Department Care Team (Late Contact Info) Description 06/26/2025 9:00 AM CDT Video Visit [facility] Adult Psychiatry [place] [address] [address] Argelia Law NP [address] [address] 08/08/2025 7:30 AM GAS LOAD DISPATCHER Video Visit [facility] Adult Psychiatry [place] [address] [place] [address] [address] [place] [address] Argelia Law NP 1420 [facility] [address] [place] [address] 09/25/2025 8:00 AM GAS LOAD DISPATCHER Office Visit [facility] Primary Care - Kirby Herrmann [address] [address] [address] Kassy Jay MD [address] [place] [address] [address] documented as of this encounter Visit Diagnoses Not on filedocumented in this encounter Additional Health Concerns Infection Onset Date Last Indicated Resolved Time R/O COVID-19 06/02/2021 06/03/2021 06/03/2021 7:34 PM CDT R/O COVID-19 12/22/2022 12/22/2022 12/22/2022 12:2 5 PM CDT R/O COVID-19 09/07/2023 09/07/2023 09/07/2023 9:52 PM GAS LOAD DISPATCHER documented as of this encounter Care Teams Farm Management Professor Relationship Specialty Start Date End Date Kassy Jay MD [address] [place] [address] [phone] PCP - General Family Practice 12/04/22 documented as of this encounter
--- OUTSIDE RECORDS SUMMARY | 2025-06-14 18:21 | XMS_ITS | Encounter Summary ---
Author Organization [facility] Address [address] [place] [address] Care Team Providers Care Imaging Clerk Name Role Phone Kassy Jay MD Primary Care Provider [phone] Encounter Details Date Type Department Care Team (Late Contact Info) Description 09/02/2004 Outpatient Historical [facility] Pediatrics - [facility] [address] [facility] [address] [place] [address] [place] [address] [place] [address] Social History Tobacco Use Types Packs/Day Years Used Date Smoking Tobacco: Never Assessed Comments Unknown Sex and Gender Information Value Date Recorded Sex Assigned at Not on file Legal Sex Female 4:02 AM WAREHOUSE PROCESSOR Gender Identity Not on file Sexual Orientation Not on file documented as of this encounter Plan of Treatment Upcoming Encounters Date Type Department Care Team (Late Contact Info) Description 06/26/2025 9:00 AM CDT Video Visit [facility] Adult Psychiatry [place] [address] [phone] Argelia Law NP [address] [address] 08/08/2025 7:30 AM WAREHOUSE PROCESSOR Video Visit [facility] Adult Psychiatry [place] [address] [address] [place] [address] Argelia Law NP 1420 [facility] [address] [address] [address] 09/25/2025 8:00 AM WAREHOUSE PROCESSOR Office Visit [facility] Primary Care - Kirby Herrmann [address] [place] [address] [address] Kassy Jay MD [address] [place] [address] [phone] documented as of this encounter Visit Diagnoses Not on filedocumented in this encounter Additional Health Concerns Infection Onset Date Last Indicated Resolved Time R/O COVID-19 06/02/2021 06/03/2021 06/03/2021 7:34 PM CDT R/O COVID-19 12/22/2022 12/22/2022 12/22/2022 12:2 5 PM CDT R/O COVID-19 09/07/2023 09/07/2023 09/07/2023 9:52 PM WAREHOUSE PROCESSOR documented as of this encounter Care Teams Imaging Clerk Relationship Specialty Start Date End Date Kassy Jay MD [address] [place] [address] [phone] PCP - General Family Practice 12/04/22 documented as of this encounter
--- OUTSIDE RECORDS SUMMARY | 2025-06-14 18:21 | XMS_ITS | Encounter Summary ---
Author Organization [facility] Address [address] [place] [address] Care Team Providers Care Derrick Boat Leverman Name Role Phone Kassy Jay MD Primary Care Provider [phone] Encounter Details Date Type Department Care Team (Late Contact Info) Description 04/18/2002 Outpatient Historical [facility] Pediatrics - [facility] [address] [facility] [address] [place] [address] [place] [address] [place] [address] Social History Tobacco Use Types Packs/Day Years Used Date Smoking Tobacco: Never Assessed Comments Unknown Sex and Gender Information Value Date Recorded Sex Assigned at Not on file Legal Sex Female 4:02 AM SERGER Gender Identity Not on file Sexual Orientation Not on file documented as of this encounter Plan of Treatment Upcoming Encounters Date Type Department Care Team (Late Contact Info) Description 06/26/2025 9:00 AM CDT Video Visit [facility] Adult Psychiatry [place] [address] [address] Argelia Law NP [address] [address] 08/08/2025 7:30 AM SERGER Video Visit [facility] Adult Psychiatry [place] [address] [address] [place] [address] Argelia Law NP 1420 [facility] [address] [address] 09/25/2025 8:00 AM SERGER Office Visit [facility] Primary Care - Kirby Herrmann [address] [place] [address] [address] Kassy Jay MD [address] [place] [address] [address] documented as of this encounter Visit Diagnoses Not on filedocumented in this encounter Additional Health Concerns Infection Onset Date Last Indicated Resolved Time R/O COVID-19 06/02/2021 06/03/2021 06/03/2021 7:34 PM CDT R/O COVID-19 12/22/2022 12/22/2022 12/22/2022 12:2 5 PM CDT R/O COVID-19 09/07/2023 09/07/2023 09/07/2023 9:52 PM SERGER documented as of this encounter Care Teams Derrick Boat Leverman Relationship Specialty Start Date End Date Kassy Jay MD [address] [place] [address] [phone] PCP - General Family Practice 12/04/22 documented as of this encounter
--- OUTSIDE RECORDS SUMMARY | 2025-06-14 18:21 | XMS_ITS | Encounter Summary ---
Author Organization [facility] Address [address] [place] [address] Care Team Providers Care Coding Specialist Name Role Phone Kassy Jay MD Primary Care Provider Encounter Details Date Type Department Care Team (Late Contact Info) Description 02/13/2005 Outpatient Historical [facility] Childrens Respiratory and Sleep Medicine [address] [address] [address] Gustavo Sims Social History Tobacco Use Types Packs/Day Years Used Date Smoking Tobacco: Never Assessed Comments Unknown Sex and Gender Information Value Date Recorded Sex Assigned at Not on file Legal Sex Female 4:02 AM SPOOL CLEANER Gender Identity Not on file Sexual Orientation Not on file documented as of this encounter Plan of Treatment Upcoming Encounters Date Type Department Care Team ([facility] Contact Info) Description 06/26/2025 9:00 AM CDT Video Visit [facility] Adult Psychiatry [address] [phone] Argelia Law NP [address] [place] [address] 08/08/2025 7:30 AM SPOOL CLEANER Video Visit [facility] Adult Psychiatry [address] [address] Argelia Law NP [address] [place] [address] [place] [address] 09/25/2025 8:00 AM SPOOL CLEANER Office Visit [facility] Primary Care - Kirby Herrmann [address] [place] [address] [address] Kassy Jay MD [address] [place] [address] [address] documented as of this encounter Visit Diagnoses Not on filedocumented in this encounter Additional Health Concerns Infection Onset Date Last Indicated Resolved Time R/O COVID-19 06/02/2021 06/03/2021 06/03/2021 7:34 PM CDT R/O COVID-19 12/22/2022 12/22/2022 12/22/2022 12:2 5 PM CDT R/O COVID-19 09/07/2023 09/07/2023 09/07/2023 9:52 PM SPOOL CLEANER documented as of this encounter Care Teams Coding Specialist Relationship Specialty Start Date End Date Kassy Jay MD [address] [place] [address] [phone] PCP - General Family Practice 12/04/22 documented as of this encounter
--- OUTSIDE RECORDS SUMMARY | 2025-06-14 18:21 | XMS_ITS | Encounter Summary ---
Author Organization [facility] Address [address] [place] [address] Care Team Providers Care Calendering Machine Operator Name Role Phone Kassy Jay MD Primary Care Provider [phone] Encounter Details Date Type Department Care Team (Late Contact Info) Description 05/06/2002 Outpatient Historical [facility] Childrens Respiratory and Sleep Medicine [address] [address] [address] Gustavo Sims Social History Tobacco Use Types Packs/Day Years Used Date Smoking Tobacco: Never Assessed Comments Unknown Sex and Gender Information Value Date Recorded Sex Assigned at Not on file Legal Sex Female 4:02 AM FRONT MAKER Gender Identity Not on file Sexual Orientation Not on file documented as of this encounter Plan of Treatment Upcoming Encounters Date Type Department Care Team ([facility] Contact Info) Description 06/26/2025 9:00 AM CDT Video Visit [facility] Adult Psychiatry [address] [phone] Argelia Law NP [address] [place] [address] 08/08/2025 7:30 AM FRONT MAKER Video Visit [facility] Adult Psychiatry [address] [address] Argelia Law NP [address] [place] [address] [place] [address] 09/25/2025 8:00 AM FRONT MAKER Office Visit [facility] Primary Care - Kirby Herrmann [address] [place] [address] [address] Kassy Jay MD [address] [place] [address] [address] documented as of this encounter Visit Diagnoses Not on filedocumented in this encounter Additional Health Concerns Infection Onset Date Last Indicated Resolved Time R/O COVID-19 06/02/2021 06/03/2021 06/03/2021 7:34 PM CDT R/O COVID-19 12/22/2022 12/22/2022 12/22/2022 12:2 5 PM CDT R/O COVID-19 09/07/2023 09/07/2023 09/07/2023 9:52 PM FRONT MAKER documented as of this encounter Care Teams Calendering Machine Operator Relationship Specialty Start Date End Date Kassy Jay MD [address] [place] [address] [phone] PCP - General Family Practice 12/04/22 documented as of this encounter
--- OUTSIDE RECORDS SUMMARY | 2025-06-14 18:21 | XMS_ITS | Encounter Summary ---
Author Organization [facility] Address [address] [place] [address] Care Team Providers Care Strip Mill Operator Name Role Phone Kassy Jay MD Primary Care Provider [phone] Encounter Details Date Type Department Care Team (Late Contact Info) Description 07/13/2001 Outpatient Historical [facility] Pediatrics - [facility] [address] [facility] [address] [place] [address] [place] [address] [place] [address] Social History Tobacco Use Types Packs/Day Years Used Date Smoking Tobacco: Never Assessed Comments Unknown Sex and Gender Information Value Date Recorded Sex Assigned at Not on file Legal Sex Female 4:02 AM MANUAL LATHE MACHINIST Gender Identity Not on file Sexual Orientation Not on file documented as of this encounter Plan of Treatment Upcoming Encounters Date Type Department Care Team (Late Contact Info) Description 06/26/2025 9:00 AM CDT Video Visit [facility] Adult Psychiatry [place] [address] [phone] Argelia Law NP [address] [address] 08/08/2025 7:30 AM MANUAL LATHE MACHINIST Video Visit [facility] Adult Psychiatry [place] [address] [address] [address] [address] [address] Argelia Law NP 1420 [facility] [address] [place] [address] 09/25/2025 8:00 AM MANUAL LATHE MACHINIST Office Visit [facility] Primary Care - Kirby Herrmann [address] [place] [address] [address] Kassy Jay MD [address] [place] [address] [address] documented as of this encounter Visit Diagnoses Not on filedocumented in this encounter Additional Health Concerns Infection Onset Date Last Indicated Resolved Time R/O COVID-19 06/02/2021 06/03/2021 06/03/2021 7:34 PM CDT R/O COVID-19 12/22/2022 12/22/2022 12/22/2022 12:2 5 PM CDT R/O COVID-19 09/07/2023 09/07/2023 09/07/2023 9:52 PM MANUAL LATHE MACHINIST documented as of this encounter Care Teams Strip Mill Operator Relationship Specialty Start Date End Date Kassy Jay MD [address] [place] [address] [phone] PCP - General Family Practice 12/04/22 documented as of this encounter
--- OUTSIDE RECORDS SUMMARY | 2025-06-14 18:21 | XMS_ITS | Encounter Summary ---
Author Organization [facility] Address [address] [place] [address] Care Team Providers Care Interior Specialist Name Role Phone Kassy Jay MD Primary Care Provider [phone] Encounter Details Date Type Department Care Team (Late Contact Info) Description 11/08/2004 Outpatient Historical [facility] Pediatrics - [facility] [address] [place] [address] [place] [address] [place] [address] Social History Tobacco Use Types Packs/Day Years Used Date Smoking Tobacco: Never Assessed Comments Unknown Sex and Gender Information Value Date Recorded Sex Assigned at Not on file Legal Sex Female 4:02 AM RELATIONSHIP ASSOCIATE Gender Identity Not on file Sexual Orientation Not on file documented as of this encounter Plan of Treatment Upcoming Encounters Date Type Department Care Team (Late Contact Info) Description 06/26/2025 9:00 AM CDT Video Visit [facility] Adult Psychiatry [place] [address] [phone] Argelia Law NP [address] [address] 08/08/2025 7:30 AM RELATIONSHIP ASSOCIATE Video Visit [facility] Adult Psychiatry [place] [address] [address] [address] [place] [address] Argelia Law NP 1420 [facility] [address] [place] [address] 09/25/2025 8:00 AM RELATIONSHIP ASSOCIATE Office Visit [facility] Primary Care - Kirby Herrmann [address] [place] [address] Kassy Jay MD [address] [place] [address] [address] documented as of this encounter Visit Diagnoses Not on filedocumented in this encounter Additional Health Concerns Infection Onset Date Last Indicated Resolved Time R/O COVID-19 06/02/2021 06/03/2021 06/03/2021 7:34 PM CDT R/O COVID-19 12/22/2022 12/22/2022 12/22/2022 12:2 5 PM CDT R/O COVID-19 09/07/2023 09/07/2023 09/07/2023 9:52 PM RELATIONSHIP ASSOCIATE documented as of this encounter Care Teams Interior Specialist Relationship Specialty Start Date End Date Kassy Jay MD [address] [place] [address] [address] PCP - General Family Practice 12/04/22 documented as of this encounter
--- OUTSIDE RECORDS SUMMARY | 2025-06-14 18:21 | XMS_ITS | Encounter Summary ---
Author Organization [facility] Address [address] [place] [address] Care Team Providers Care Supervisor Train Operations Name Role Phone Kassy Jay MD Primary Care Provider Encounter Details Date Type Department Care Team (Late Contact Info) Description 09/02/2004 Outpatient Historical [facility] Pediatrics - [facility] [address] [place] [address] [place] [address] [place] [address] Social History Tobacco Use Types Packs/Day Years Used Date Smoking Tobacco: Never Assessed Comments Unknown Sex and Gender Information Value Date Recorded Sex Assigned at Not on file Legal Sex Female 4:02 AM DIETETICS DIRECTOR Gender Identity Not on file Sexual Orientation Not on file documented as of this encounter Plan of Treatment Upcoming Encounters Date Type Department Care Team (Late Contact Info) Description 06/26/2025 9:00 AM CDT Video Visit [facility] Adult Psychiatry [place] [address] [phone] Argelia Law NP [address] [address] 08/08/2025 7:30 AM DIETETICS DIRECTOR Video Visit [facility] Adult Psychiatry [place] [address] [address] [place] [address] Argelia Law NP 1420 [facility] [address] [place] [address] 09/25/2025 8:00 AM DIETETICS DIRECTOR Office Visit [facility] Primary Care - Kirby Herrmann [address] [address] [address] Kassy Jay MD [address] [place] [address] documented as of this encounter Visit Diagnoses Not on filedocumented in this encounter Additional Health Concerns Infection Onset Date Last Indicated Resolved Time R/O COVID-19 06/02/2021 06/03/2021 06/03/2021 7:34 PM CDT R/O COVID-19 12/22/2022 12/22/2022 12/22/2022 12:2 5 PM CDT R/O COVID-19 09/07/2023 09/07/2023 09/07/2023 9:52 PM DIETETICS DIRECTOR documented as of this encounter Care Teams Supervisor Train Operations Relationship Specialty Start Date End Date Kassy Jay MD [address] [place] [address] PCP - General Family Practice 12/04/22 documented as of this encounter
--- OUTSIDE RECORDS SUMMARY | 2025-06-14 18:21 | XMS_ITS | Encounter Summary ---
Author Organization [facility] Address [address] [place] [address] Care Team Providers Care Sales Order Specialist Name Role Phone Kassy Jay MD Primary Care Provider [phone] Encounter Details Date Type Department Care Team (Late Contact Info) Description 06/07/2003 Outpatient Historical [facility] [address] [facility] [address] [address] Gustavo Sims Social History Tobacco Use Types Packs/Day Years Used Date Smoking Tobacco: Never Assessed Comments Unknown Sex and Gender Information Value Date Recorded Sex Assigned at Not on file Legal Sex Female 4:02 AM WATER TREATMENT PLANT MECHANIC Gender Identity Not on file Sexual Orientation Not on file documented as of this encounter Plan of Treatment Upcoming Encounters Date Type Department Care Team ([facility] Contact Info) Description 06/26/2025 9:00 AM CDT Video Visit [facility] Adult Psychiatry [address] [phone] Argelia Law NP [address] [place] [address] 08/08/2025 7:30 AM WATER TREATMENT PLANT MECHANIC Video Visit [facility] Adult Psychiatry [address] [phone] Argelia Law NP [address] [place] [address] [place] [address] 09/25/2025 8:00 AM WATER TREATMENT PLANT MECHANIC Office Visit [facility] Primary Care - Kirby Herrmann [address] [place] [address] Kassy Jay MD [address] [place] [address] documented as of this encounter Visit Diagnoses Not on filedocumented in this encounter Additional Health Concerns Infection Onset Date Last Indicated Resolved Time R/O COVID-19 06/02/2021 06/03/2021 06/03/2021 7:34 PM CDT R/O COVID-19 12/22/2022 12/22/2022 12/22/2022 12:2 5 PM CDT R/O COVID-19 09/07/2023 09/07/2023 09/07/2023 9:52 PM WATER TREATMENT PLANT MECHANIC documented as of this encounter Care Teams Sales Order Specialist Relationship Specialty Start Date End Date Kassy Jay MD [address] [place] [phone] PCP - General Family Practice 12/04/22 documented as of this encounter
--- OUTSIDE RECORDS SUMMARY | 2025-06-14 18:21 | XMS_ITS | Encounter Summary ---
Author Organization [facility] Address [address] [place] [address] Care Team Providers Care Floor Space Allocator Name Role Phone Kassy Jay MD Primary Care Provider [phone] Encounter Details Date Type Department Care Team (Late Contact Info) Description 03/27/2004 Outpatient Historical [facility] [address] [facility] [address] [address] Gustavo Sims Social History Tobacco Use Types Packs/Day Years Used Date Smoking Tobacco: Never Assessed Comments Unknown Sex and Gender Information Value Date Recorded Sex Assigned at Not on file Legal Sex Female 4:02 AM TAXATION ECONOMIST Gender Identity Not on file Sexual Orientation Not on file documented as of this encounter Plan of Treatment Upcoming Encounters Date Type Department Care Team ([facility] Contact Info) Description 06/26/2025 9:00 AM CDT Video Visit [facility] Adult Psychiatry [address] [phone] Argelia Law NP [address] [place] [address] 08/08/2025 7:30 AM TAXATION ECONOMIST Video Visit [facility] Adult Psychiatry [address] [address] Argelia Law NP [address] [place] [address] [place] [address] 09/25/2025 8:00 AM TAXATION ECONOMIST Office Visit [facility] Primary Care - Kirby Herrmann [address] [place] [address] Kassy Jay MD [address] [place] [address] [address] documented as of this encounter Visit Diagnoses Not on filedocumented in this encounter Additional Health Concerns Infection Onset Date Last Indicated Resolved Time R/O COVID-19 06/02/2021 06/03/2021 06/03/2021 7:34 PM CDT R/O COVID-19 12/22/2022 12/22/2022 12/22/2022 12:2 5 PM CDT R/O COVID-19 09/07/2023 09/07/2023 09/07/2023 9:52 PM TAXATION ECONOMIST documented as of this encounter Care Teams Floor Space Allocator Relationship Specialty Start Date End Date Kassy Jay MD [address] [place] [phone] PCP - General Family Practice 12/04/22 documented as of this encounter
--- OUTSIDE RECORDS SUMMARY | 2025-06-14 18:21 | XMS_ITS | Encounter Summary ---
Author Organization [facility] Address [address] [place] [address] Care Team Providers Care Eligibility Specialist Name Role Phone Kassy Jay MD Primary Care Provider [phone] Encounter Details Date Type Department Care Team (Late Contact Info) Description 12/05/2002 Outpatient Historical [facility] [address] [facility] [address] [address] Gustavo Sims Social History Tobacco Use Types Packs/Day Years Used Date Smoking Tobacco: Never Assessed Comments Unknown Sex and Gender Information Value Date Recorded Sex Assigned at Not on file Legal Sex Female 4:02 AM TOWNSHIP CLERK Gender Identity Not on file Sexual Orientation Not on file documented as of this encounter Plan of Treatment Upcoming Encounters Date Type Department Care Team ([facility] Contact Info) Description 06/26/2025 9:00 AM CDT Video Visit [facility] Adult Psychiatry [address] [phone] Argelia Law NP [address] [place] [address] 08/08/2025 7:30 AM TOWNSHIP CLERK Video Visit [facility] Adult Psychiatry [address] [address] Argelia Law NP [address] [place] [address] [place] [address] 09/25/2025 8:00 AM TOWNSHIP CLERK Office Visit [facility] Primary Care - Kirby Herrmann [address] [place] [address] [phone] Kassy Jay MD [address] [place] [address] documented as of this encounter Visit Diagnoses Not on filedocumented in this encounter Additional Health Concerns Infection Onset Date Last Indicated Resolved Time R/O COVID-19 06/02/2021 06/03/2021 06/03/2021 7:34 PM CDT R/O COVID-19 12/22/2022 12/22/2022 12/22/2022 12:2 5 PM CDT R/O COVID-19 09/07/2023 09/07/2023 09/07/2023 9:52 PM TOWNSHIP CLERK documented as of this encounter Care Teams Eligibility Specialist Relationship Specialty Start Date End Date Kassy Jay MD [address] [place] [phone] PCP - General Family Practice 12/04/22 documented as of this encounter
--- OUTSIDE RECORDS SUMMARY | 2025-06-14 18:21 | XMS_ITS | Encounter Summary ---
Author Organization [facility] Address [address] [place] [address] Care Team Providers Care Fleet Driver Name Role Phone Kassy Jay MD Primary Care Provider [phone] Encounter Details Date Type Department Care Team (Late Contact Info) Description 12/15/2003 Outpatient Historical [facility] Children[facility] Res[facility] Sleep Medicine [address] [facility] [address] [address] Gustavo Sims Social History Tobacco Use Types Packs/Day Years Used Date Smoking Tobacco: Never Assessed Comments Unknown Sex and Gender Information Value Date Recorded Sex Assigned at Not on file Legal Sex Female 4:02 AM PLANT BIOLOGY PROFESSOR Gender Identity Not on file Sexual Orientation Not on file documented as of this encounter Plan of Treatment Upcoming Encounters Date Type Department Care Team ([facility] Contact Info) Description 06/26/2025 9:00 AM CDT Video Visit [facility] Adult Psychiatry [address] [phone] Argelia Law NP [address] [place] [address] 08/08/2025 7:30 AM PLANT BIOLOGY PROFESSOR Video Visit [facility] Adult Psychiatry [address] [address] Argelia Law NP [address] [place] [address] [place] [address] 09/25/2025 8:00 AM PLANT BIOLOGY PROFESSOR Office Visit [facility] Primary Care - Kirby Herrmann [address] [place] [address] [address] Kassy Jay MD [address] [place] [address] [address] documented as of this encounter Visit Diagnoses Not on filedocumented in this encounter Additional Health Concerns Infection Onset Date Last Indicated Resolved Time R/O COVID-19 06/02/2021 06/03/2021 06/03/2021 7:34 PM CDT R/O COVID-19 12/22/2022 12/22/2022 12/22/2022 12:2 5 PM CDT R/O COVID-19 09/07/2023 09/07/2023 09/07/2023 9:52 PM PLANT BIOLOGY PROFESSOR documented as of this encounter Care Teams Fleet Driver Relationship Specialty Start Date End Date Kassy Jay MD [address] [phone] PCP - General Family Practice 12/04/22 documented as of this encounter
--- OUTSIDE RECORDS SUMMARY | 2025-06-14 18:21 | XMS_ITS | Encounter Summary ---
Author Organization [facility] Address [address] [place] [address] Care Team Providers Care Manager Fraud Name Role Phone Kassy Jay MD Primary Care Provider [phone] Encounter Details Date Type Department Care Team (Late Contact Info) Description 10/20/2001 Outpatient Historical [facility] Pediatrics - [facility] [address] [facility] [address] [place] [address] [place] [address] [place] [address] Social History Tobacco Use Types Packs/Day Years Used Date Smoking Tobacco: Never Assessed Comments Unknown Sex and Gender Information Value Date Recorded Sex Assigned at Not on file Legal Sex Female 4:02 AM CONTROL TOWER OPERATOR Gender Identity Not on file Sexual Orientation Not on file documented as of this encounter Plan of Treatment Upcoming Encounters Date Type Department Care Team (Late Contact Info) Description 06/26/2025 9:00 AM CDT Video Visit [facility] Adult Psychiatry [place] [address] [phone] Argelia Law NP [address] [address] 08/08/2025 7:30 AM CONTROL TOWER OPERATOR Video Visit [facility] Adult Psychiatry [place] [address] [address] [place] [phone] Argelia Law NP 1420 [facility] [address] [address] [address] 09/25/2025 8:00 AM CONTROL TOWER OPERATOR Office Visit [facility] Primary Care - Kirby Herrmann [address] [address] Kassy Jay MD [address] [place] [address] [address] documented as of this encounter Visit Diagnoses Not on filedocumented in this encounter Additional Health Concerns Infection Onset Date Last Indicated Resolved Time R/O COVID-19 06/02/2021 06/03/2021 06/03/2021 7:34 PM CDT R/O COVID-19 12/22/2022 12/22/2022 12/22/2022 12:2 5 PM CDT R/O COVID-19 09/07/2023 09/07/2023 09/07/2023 9:52 PM CONTROL TOWER OPERATOR documented as of this encounter Care Teams Manager Fraud Relationship Specialty Start Date End Date Kassy Jay MD [address] [place] [address] [phone] PCP - General Family Practice 12/04/22 documented as of this encounter
--- OUTSIDE RECORDS SUMMARY | 2025-06-14 18:21 | XMS_ITS | Encounter Summary ---
Author Organization [facility] Address [address] [place] [address] Care Team Providers Care .Net Architect Name Role Phone Kassy Jay MD Primary Care Provider Encounter Details Date Type Department Care Team (Late Contact Info) Description 02/13/2005 Outpatient Historical [facility] Childrens Respiratory and Sleep Medicine [address] [facility] [address] [address] Gustavo Sims Social History Tobacco Use Types Packs/Day Years Used Date Smoking Tobacco: Never Assessed Comments Unknown Sex and Gender Information Value Date Recorded Sex Assigned at Not on file Legal Sex Female 4:[address]QUIPMENT OPERATOR Gender Identity Not on file Sexual Orientation Not on file documented as of this encounter Plan of Treatment Upcoming Encounters Date Type Department Care Team ([facility] Contact Info) Description 06/26/2025 9:00 AM CDT Video Visit [facility] Adult Psychiatry [address] [phone] Argelia Law NP [address] [place] [address] 08/08/2025 7:[address]QUIPMENT OPERATOR Video Visit [facility] Adult Psychiatry [address] [phone] Argelia Law NP [address] [place] [address] [place] [address] 09/25/2025 8:[address]QUIPMENT OPERATOR Office Visit [facility] Primary Care - Kirby Herrmann [address] [place] [address] Kassy Jay MD [address] [place] [address] documented as of this encounter Visit Diagnoses Not on filedocumented in this encounter Additional Health Concerns Infection Onset Date Last Indicated Resolved Time R/O COVID-19 06/02/2021 06/03/2021 06/03/2021 7:34 PM CDT R/O COVID-19 12/22/2022 12/22/2022 12/22/2022 12:2 5 PM CDT R/O COVID-19 09/07/2023 09/07/2023 09/07/2023 9:[address]QUIPMENT OPERATOR documented as of this encounter Care Teams .Net Architect Relationship Specialty Start Date End Date Kassy Jay MD [address] [phone] PCP - General Family Practice 12/04/22 documented as of this encounter
--- OUTSIDE RECORDS SUMMARY | 2025-06-14 18:21 | XMS_ITS | Encounter Summary ---
Author Organization [facility] Address [address] [place] [address] Care Team Providers Care Bench Precision Assembler Name Role Phone Kassy Jay MD Primary Care Provider [phone] Encounter Details Date Type Department Care Team ([facility] Contact Info) Description 05/09/2004 Outpatient Historical [facility] Pediatrics - [facility] [address] [facility] [address] [place] [address] Garrett Mittal MD [address] [facility] [address] [place] [address] Social History Tobacco Use Types Packs/Day Years Used Date Smoking Tobacco: Never Assessed Comments Unknown Sex and Gender Information Value Date Recorded Sex Assigned at Not on file Legal Sex Female 4:02 AM RETAIL PROJECT MERCHANDISER Gender Identity Not on file Sexual Orientation Not on file documented as of this encounter Last Filed Vital Signs Vital Sign Reading Time Taken Comments Blood Pressure - - Pulse 88 05/09/2004 9:15 AM CDT Temperature 36.9 C (98.4 F) 05/09/2004 9:15 AM CDT Respiratory Rate 25 05/09/2004 9:15 AM CDT Oxygen Saturation - - Inhaled Oxygen Concentration - - Weight 20.9 kg (46 lb) 05/09/2004 9:15 AM CDT Height - - Body Mass Index - - documented in this encounter Plan of Treatment Upcoming Encounters Date Type Department Care Team (Late Contact Info) Description 06/26/2025 9:00 AM CDT Video Visit [facility] Adult Psychiatry [place] [address] [address] [place], [place] [address] Thanh, Argelia Lopez, [place] [address] [address] [place] [address] 08/08/2025 7:30 AM RETAIL PROJECT MERCHANDISER Video Visit [facility] Adult Psychiatry [place] [address] [address] [place], [place] [address] Thanh, Argelia Lopez NP [address] [address] [place] [address] 09/25/2025 8:00 AM RETAIL PROJECT MERCHANDISER Office Visit [facility] Primary Care - Kirby Herrmann [address] [place] [address] [address] Kassy Jay MD [address] [place] [address] [phone] documented as of this encounter Visit Diagnoses Not on filedocumented in this encounter Additional Health Concerns Infection Onset Date Last Indicated Resolved Time R/O COVID-19 06/02/2021 06/03/2021 06/03/2021 7:34 PM CDT R/O COVID-19 12/22/2022 12/22/2022 12/22/2022 12:2 5 PM CDT R/O COVID-19 09/07/2023 09/07/2023 09/07/2023 9:52 PM RETAIL PROJECT MERCHANDISER documented as of this encounter Care Teams Bench Precision Assembler Relationship Specialty Start Date End Date Kassy Jay MD [address] [place] [address] [phone] PCP - General Family Practice 12/04/22 documented as of this encounter
--- OUTSIDE RECORDS SUMMARY | 2025-06-14 18:21 | XMS_ITS | Encounter Summary ---
Author Organization [facility] Address [address] [place] [address] Care Team Providers Care Corporate Lawyer Name Role Phone Kassy Jay MD Primary Care Provider [phone] Encounter Details Date Type Department Care Team (Late Contact Info) Description 11/08/[address] [facility] Pediatrics - [facility] [address] [place] [address] [place] [address] [place] [address] Social History Tobacco Use Types Packs/Day Years Used Date Smoking Tobacco: Never Assessed Comments Unknown Sex and Gender Information Value Date Recorded Sex Assigned at Not on file Legal Sex Female 4:02 AM SHIRT IRONER Gender Identity Not on file Sexual Orientation Not on file documented as of this encounter Plan of Treatment Upcoming Encounters Date Type Department Care Team (Late Contact Info) Description 06/26/2025 9:00 AM CDT Video Visit [facility] Adult Psychiatry [place] [address] [phone] Argelia Law NP [address] [address] 08/08/2025 7:30 AM SHIRT IRONER Video Visit [facility] Adult Psychiatry [place] [address] [address] [place] [address] Argelia Law NP 1420 [facility] [address] [address] [address] 09/25/2025 8:00 AM SHIRT IRONER Office Visit [facility] Primary Care - Kirby Herrmann [address] [place] [address] [address] Kassy Jay MD [address] [place] [address] documented as of this encounter Visit Diagnoses Not on filedocumented in this encounter Additional Health Concerns Infection Onset Date Last Indicated Resolved Time R/O COVID-19 06/02/2021 06/03/2021 06/03/2021 7:34 PM CDT R/O COVID-19 12/22/2022 12/22/2022 12/22/2022 12:2 5 PM CDT R/O COVID-19 09/07/2023 09/07/2023 09/07/2023 9:52 PM SHIRT IRONER documented as of this encounter Care Teams Corporate Lawyer Relationship Specialty Start Date End Date Kassy Jay MD [address] [place] [address] [phone] PCP - General Family Practice 12/04/22 documented as of this encounter
--- OUTSIDE RECORDS SUMMARY | 2025-06-14 18:21 | XMS_ITS | Encounter Summary ---
Author Organization [facility] Address [address] [place] [address] Care Team Providers Care Linoleum Layer Apprentice Name Role Phone Kassy Jay MD Primary Care Provider [phone] Encounter Details Date Type Department Care Team (Late Contact Info) Description 04/14/2002 Outpatient Historical [facility] Pediatrics - [facility] [address] [facility] [address] [facility] [address] [place] [address] [place] [address] [place] [address] Social History Tobacco Use Types Packs/Day Years Used Date Smoking Tobacco: Never Assessed Comments Unknown Sex and Gender Information Value Date Recorded Sex Assigned at Not on file Legal Sex Female 4:02 AM VACUUM TECHNICIAN Gender Identity Not on file Sexual Orientation Not on file documented as of this encounter Plan of Treatment Upcoming Encounters Date Type Department Care Team (Late Contact Info) Description 06/26/2025 9:00 AM CDT Video Visit [facility] Adult Psychiatry [place] [address] [phone] Argelia Law NP [address] [address] 08/08/2025 7:30 AM VACUUM TECHNICIAN Video Visit [facility] Adult Psychiatry [place] [address] [address] [place] [address] Argelia Law NP 1420 [facility] [address] [place] [address] 09/25/2025 8:00 AM VACUUM TECHNICIAN Office Visit [facility] Primary Care - Kirby Herrmann [address] [address] [address] Kassy Jay MD [address] [place] [address] [address] documented as of this encounter Visit Diagnoses Not on filedocumented in this encounter Additional Health Concerns Infection Onset Date Last Indicated Resolved Time R/O COVID-19 06/02/2021 06/03/2021 06/03/2021 7:34 PM CDT R/O COVID-19 12/22/2022 12/22/2022 12/22/2022 12:2 5 PM CDT R/O COVID-19 09/07/2023 09/07/2023 09/07/2023 9:52 PM VACUUM TECHNICIAN documented as of this encounter Care Teams Linoleum Layer Apprentice Relationship Specialty Start Date End Date Kassy Jay MD [address] [place] [address] [phone] PCP - General Family Practice 12/04/22 documented as of this encounter
--- OUTSIDE RECORDS SUMMARY | 2025-06-14 18:21 | XMS_ITS | Encounter Summary ---
Author Organization [facility] Address [address] [place] [address] Care Team Providers Care Manager Of Environmental Services Name Role Phone Kassy Jay MD Primary Care Provider [phone] Encounter Details Date Type Department Care Team (Late Contact Info) Description 03/26/2004 Outpatient Historical [facility] Pediatrics - [facility] [address] [address] [place] [address] [place] [address] [place] [address] Social History Tobacco Use Types Packs/Day Years Used Date Smoking Tobacco: Never Assessed Comments Unknown Sex and Gender Information Value Date Recorded Sex Assigned at Not on file Legal Sex Female 4:02 AM CREPE MACHINE OPERATOR Gender Identity Not on file Sexual Orientation Not on file documented as of this encounter Plan of Treatment Upcoming Encounters Date Type Department Care Team (Late Contact Info) Description 06/26/2025 9:00 AM CDT Video Visit [facility] Adult Psychiatry [place] [address] [phone] Argelia Law NP [address] [address] 08/08/2025 7:30 AM CREPE MACHINE OPERATOR Video Visit [facility] Adult Psychiatry [place] [address] [address] [place] [address] Argelia Law NP 1420 [facility] [address] [place] [address] 09/25/2025 8:00 AM CREPE MACHINE OPERATOR Office Visit [facility] Primary Care - Kirby Herrmann [address] [place] [address] Kassy Jay MD [address] [place] [address] documented as of this encounter Visit Diagnoses Not on filedocumented in this encounter Additional Health Concerns Infection Onset Date Last Indicated Resolved Time R/O COVID-19 06/02/2021 06/03/2021 06/03/2021 7:34 PM CDT R/O COVID-19 12/22/2022 12/22/2022 12/22/2022 12:2 5 PM CDT R/O COVID-19 09/07/2023 09/07/2023 09/07/2023 9:52 PM CREPE MACHINE OPERATOR documented as of this encounter Care Teams Manager Of Environmental Services Relationship Specialty Start Date End Date Kassy Jay MD [address] [place] [address] PCP - General Family Practice 12/04/22 documented as of this encounter
--- OUTSIDE RECORDS SUMMARY | 2025-06-14 18:21 | XMS_ITS | Encounter Summary ---
Author Organization [facility] Address [address] [place] [address] Care Team Providers Care Synthetic Resin Operator Name Role Phone Kassy Jay MD Primary Care Provider [phone] Encounter Details Date Type Department Care Team (Late Contact Info) Description 02/10/2003 Outpatient Historical [facility] Pediatrics - [facility] [address] [facility] [address] [place] [address] [place] [address] [place] [address] Social History Tobacco Use Types Packs/Day Years Used Date Smoking Tobacco: Never Assessed Comments Unknown Sex and Gender Information Value Date Recorded Sex Assigned at Not on file Legal Sex Female 4:02 AM MARKETING AUTOMATION ANALYST Gender Identity Not on file Sexual Orientation Not on file documented as of this encounter Plan of Treatment Upcoming Encounters Date Type Department Care Team (Late Contact Info) Description 06/26/2025 9:00 AM CDT Video Visit [facility] Adult Psychiatry [place] [address] [phone] Argelia Law NP [address] [address] 08/08/2025 7:30 AM MARKETING AUTOMATION ANALYST Video Visit [facility] Adult Psychiatry [place] [address] [address] [place] [address] Argelia Law NP 1420 [facility] [address] [place] [address] 09/25/2025 8:00 AM MARKETING AUTOMATION ANALYST Office Visit [facility] Primary Care - Kirby Herrmann [address] [place] [address] Kassy Jay MD [address] [place] [address] documented as of this encounter Visit Diagnoses Not on filedocumented in this encounter Additional Health Concerns Infection Onset Date Last Indicated Resolved Time R/O COVID-19 06/02/2021 06/03/2021 06/03/2021 7:34 PM CDT R/O COVID-19 12/22/2022 12/22/2022 12/22/2022 12:2 5 PM CDT R/O COVID-19 09/07/2023 09/07/2023 09/07/2023 9:52 PM MARKETING AUTOMATION ANALYST documented as of this encounter Care Teams Synthetic Resin Operator Relationship Specialty Start Date End Date Kassy Jay MD [address] [place] [address] [address] PCP - General Family Practice 12/04/22 documented as of this encounter
--- OUTSIDE RECORDS SUMMARY | 2025-06-14 18:21 | XMS_ITS | Encounter Summary ---
Author Organization Address [address] [place] [address] Care Team Providers Care Vacuum Metalizer Operator Name Role Phone Kassy Jay MD Primary Care Provider [phone] Encounter Details Date Type Department Care Team (Late Contact Info) Description 05/02/2002 Outpatient Historical [facility] Pediatrics - [facility] [address] [facility] [address] [place] [address] [place] [address] [address] [place] [address] Social History Tobacco Use Types Packs/Day Years Used Date Smoking Tobacco: Never Assessed Comments Unknown Sex and Gender Information Value Date Recorded Sex Assigned at Not on file Legal Sex Female 4:02 AM SUPERVISOR HYDROCHLORIC AREA Gender Identity Not on file Sexual Orientation Not on file documented as of this encounter Plan of Treatment Upcoming Encounters Date Type Department Care Team (Late Contact Info) Description 06/26/2025 9:00 AM CDT Video Visit [facility] Adult Psychiatry [place] [address] [address] Argelia Law NP [address] [address] 08/08/2025 7:30 AM SUPERVISOR HYDROCHLORIC AREA Video Visit [facility] Adult Psychiatry [place] [address] [place] [address] [place] [address] Argelia Law NP 1420 [facility] [address] [place] [address] 09/25/2025 8:00 AM SUPERVISOR HYDROCHLORIC AREA Office Visit [facility] Primary Care - Kirby Herrmann [address] [place] [address] [address] Kassy Jay MD [address] [place] [address] [phone] documented as of this encounter Visit Diagnoses Not on filedocumented in this encounter Additional Health Concerns Infection Onset Date Last Indicated Resolved Time R/O COVID-19 06/02/2021 06/03/2021 06/03/2021 7:34 PM CDT R/O COVID-19 12/22/2022 12/22/2022 12/22/2022 12:2 5 PM CDT R/O COVID-19 09/07/2023 09/07/2023 09/07/2023 9:52 PM SUPERVISOR HYDROCHLORIC AREA documented as of this encounter Care Teams Vacuum Metalizer Operator Relationship Specialty Start Date End Date Kassy Jay MD [address] [place] [address] [phone] PCP - General Family Practice 12/04/22 documented as of this encounter
--- OUTSIDE RECORDS SUMMARY | 2025-06-14 18:22 | XMS_ITS | Encounter Summary ---
Author Organization [facility] Address [address] [place] [address] Care Team Providers Care Aerosol Supervisor Name Role Phone Kassy Jay MD Primary Care Provider Encounter Details Date Type Department Care Team (Late Contact Info) Description 06/15/2000 Outpatient Historical [facility] Pediatrics - [facility] [address] [facility] [address] [place] [address] [place] [address] [place] [address] Social History Tobacco Use Types Packs/Day Years Used Date Smoking Tobacco: Never Assessed Comments Unknown Sex and Gender Information Value Date Recorded Sex Assigned at Not on file Legal Sex Female 4:02 AM APPLE THINNER Gender Identity Not on file Sexual Orientation Not on file documented as of this encounter Plan of Treatment Upcoming Encounters Date Type Department Care Team (Late Contact Info) Description 06/26/2025 9:00 AM CDT Video Visit [facility] Adult Psychiatry [place] [address] [address] Argelia Law NP [address] [address] 08/08/2025 7:30 AM APPLE THINNER Video Visit [facility] Adult Psychiatry [place] [address] [place] [address] [address] [place] [address] Argelia Law NP 1420 [facility] [address] [place] [address] 09/25/2025 8:00 AM APPLE THINNER Office Visit [facility] Primary Care - Kirby Herrmann [address] [place] [address] Kassy Jay MD [address] [place] [address] documented as of this encounter Visit Diagnoses Not on filedocumented in this encounter Additional Health Concerns Infection Onset Date Last Indicated Resolved Time R/O COVID-19 06/02/2021 06/03/2021 06/03/2021 7:34 PM CDT R/O COVID-19 12/22/2022 12/22/2022 12/22/2022 12:2 5 PM CDT R/O COVID-19 09/07/2023 09/07/2023 09/07/2023 9:52 PM APPLE THINNER documented as of this encounter Care Teams Aerosol Supervisor Relationship Specialty Start Date End Date Kassy Jay MD [address] [place] [address] [address] PCP - General Family Practice 12/04/22 documented as of this encounter
--- OUTSIDE RECORDS SUMMARY | 2025-06-14 18:22 | XMS_ITS | Encounter Summary ---
Author Organization [facility] Address [address] [place] [address] Care Team Providers Care Rail Car Welder Name Role Phone Kassy Jay MD Primary Care Provider [phone] Encounter Details Date Type Department Care Team (Late Contact Info) Description 01/21/2006 Outpatient Historical [facility] Pediatrics - [facility] [address] [facility] [address] [place] [address] [place] [address] [place] [address] Social History Tobacco Use Types Packs/Day Years Used Date Smoking Tobacco: Never Assessed Comments Unknown Sex and Gender Information Value Date Recorded Sex Assigned at Not on file Legal Sex Female 4:02 AM DOT ETCHER APPRENTICE Gender Identity Not on file Sexual Orientation Not on file documented as of this encounter Plan of Treatment Upcoming Encounters Date Type Department Care Team (Late Contact Info) Description 06/26/2025 9:00 AM CDT Video Visit [facility] Adult Psychiatry [place] [address] [phone] Argelia Law NP [address] [address] 08/08/2025 7:30 AM DOT ETCHER APPRENTICE Video Visit [facility] Adult Psychiatry [place] [address] [place] [address] [address] [place] [address] Argelia Law NP 1420 [facility] [address] [place] [address] 09/25/2025 8:00 AM DOT ETCHER APPRENTICE Office Visit [facility] Primary Care - Kirby Herrmann [address] [address] [address] Kassy Jay MD [address] [place] [address] [address] documented as of this encounter Visit Diagnoses Not on filedocumented in this encounter Additional Health Concerns Infection Onset Date Last Indicated Resolved Time R/O COVID-19 06/02/2021 06/03/2021 06/03/2021 7:34 PM CDT R/O COVID-19 12/22/2022 12/22/2022 12/22/2022 12:2 5 PM CDT R/O COVID-19 09/07/2023 09/07/2023 09/07/2023 9:52 PM DOT ETCHER APPRENTICE documented as of this encounter Care Teams Rail Car Welder Relationship Specialty Start Date End Date Kassy Jay MD [address] [place] [address] [address] PCP - General Family Practice 12/04/22 documented as of this encounter
--- OUTSIDE RECORDS SUMMARY | 2025-06-14 18:22 | XMS_ITS | Encounter Summary ---
Author Organization [facility] Address [address] [place] [address] Care Team Providers Care Pest Control Operator Name Role Phone Kassy Jay MD Primary Care Provider [phone] Encounter Details Date Type Department Care Team (Late Contact Info) Description [address]patient [address] [facility] MAURICIO Yadav, Alley Cid MD [address] [place] [address] Social History Tobacco Use Types Packs/Day Years Used Date Smoking Tobacco: Never Assessed Comments Unknown Sex and Gender Information Value Date Recorded Sex Assigned at Not on file Legal Sex Female 4:02 AM DRAFTING SUPERVISOR Gender Identity Not on file Sexual Orientation Not on file documented as of this encounter Plan of Treatment Upcoming Encounters Date Type Department Care Team (Late Contact Info) Description 06/26/2025 9:00 AM CDT Video Visit [facility] Adult Psychiatry [address] [place] [address] Argelia Law NP [address] [place], [place] [address] [address] 08/08/2025 7:30 AM DRAFTING SUPERVISOR Video Visit [facility] Adult Psychiatry [address] [place] [address] Argelia Lwa NP [address] [place] [address] [address] [place] [address] [address] 09/25/2025 8:00 AM DRAFTING SUPERVISOR Office Visit [facility] Primary Care - Kirby Herrmann [address] [address] [address] Kassy Jay MD [address] [place] [address] [phone] documented as of this encounter Visit Diagnoses Not on filedocumented in this encounter Additional Health Concerns Infection Onset Date Last Indicated Resolved Time R/O COVID-19 06/02/2021 06/03/2021 06/03/2021 7:34 PM CDT R/O COVID-19 12/22/2022 12/22/2022 12/22/2022 12:2 5 PM CDT R/O COVID-19 09/07/2023 09/07/2023 09/07/2023 9:52 PM DRAFTING SUPERVISOR documented as of this encounter Care Teams Pest Control Operator Relationship Specialty Start Date End Date Kassy Jay MD [address] [place] [place] [address] [phone] PCP - General Family Practice 12/04/22 documented as of this encounter
--- OUTSIDE RECORDS SUMMARY | 2025-06-14 18:22 | XMS_ITS | Encounter Summary ---
Author Organization [facility] Address [address] [place] [address] Care Team Providers Care Mime Artist Name Role Phone Kassy Jay MD Primary Care Provider [phone] Encounter Details Date Type Department Care Team ([facility] Contact Info) Description 09/04/[address] [facility] Childrens Respiratory and Sleep Medicine [address] [facility] [address] [address] Gustavo Sims Social History Tobacco Use Types Packs/Day Years Used Date Smoking Tobacco: Never Assessed Comments Unknown Sex and Gender Information Value Date Recorded Sex Assigned at Not on file Legal Sex Female 4:02 AM SUPERVISOR OF GUIDANCE AND TESTING Gender Identity Not on file Sexual Orientation Not on file documented as of this encounter Plan of Treatment Upcoming Encounters Date Type Department Care Team ([facility] Contact Info) Description 06/26/2025 9:00 AM CDT Video Visit [facility] Adult Psychiatry [address] [phone] Argelia Law NP [address] [place] [address] 08/08/2025 7:30 AM SUPERVISOR OF GUIDANCE AND TESTING Video Visit [facility] Adult Psychiatry [address] [address] Argelia Law NP [address] [place] [address] [place] [address] 09/25/2025 8:00 AM SUPERVISOR OF GUIDANCE AND TESTING Office Visit [facility] Primary Care - Kirby Herrmann [address] [place] [address] Kassy Jay MD [address] [place] [place] [address] documented as of this encounter Visit Diagnoses Not on filedocumented in this encounter Additional Health Concerns Infection Onset Date Last Indicated Resolved Time R/O COVID-19 06/02/2021 06/03/2021 06/03/2021 7:34 PM CDT R/O COVID-19 12/22/2022 12/22/2022 12/22/2022 12:2 5 PM CDT R/O COVID-19 09/07/2023 09/07/2023 09/07/2023 9:52 PM SUPERVISOR OF GUIDANCE AND TESTING documented as of this encounter Care Teams Mime Artist Relationship Specialty Start Date End Date Kassy Jay MD [address] [phone] PCP - General Family Practice 12/04/22 documented as of this encounter
--- OUTSIDE RECORDS SUMMARY | 2025-06-14 18:22 | XMS_ITS | Encounter Summary ---
Author Organization [facility] Address [address] [place] [address] Care Team Providers Care Chainer Name Role Phone Kassy Jay MD Primary Care Provider [phone] Encounter Details Date Type Department Care Team (Late Contact Info) Description 01/01/2006 Outpatient Historical [facility] Childrens Respiratory and Sleep Medicine [address] [facility] [address] [address] Gustavo Sims Social History Tobacco Use Types Packs/Day Years Used Date Smoking Tobacco: Never Assessed Comments Unknown Sex and Gender Information Value Date Recorded Sex Assigned at Not on file Legal Sex Female 4:02 AM TEXTILE ENGRAVER Gender Identity Not on file Sexual Orientation Not on file documented as of this encounter Plan of Treatment Upcoming Encounters Date Type Department Care Team ([facility] Contact Info) Description 06/26/2025 9:00 AM CDT Video Visit [facility] Adult Psychiatry [address] [phone] Argelia Law NP [address] [place] [address] 08/08/2025 7:30 AM TEXTILE ENGRAVER Video Visit [facility] Adult Psychiatry [address] [address] Argelia Law NP [address] [place] [address] [place] [address] 09/25/2025 8:00 AM TEXTILE ENGRAVER Office Visit [facility] Primary Care - Kirby Herrmann [address] [place] [address] [address] Kassy Jay MD [address] [place] [address] documented as of this encounter Visit Diagnoses Not on filedocumented in this encounter Additional Health Concerns Infection Onset Date Last Indicated Resolved Time R/O COVID-19 06/02/2021 06/03/2021 06/03/2021 7:34 PM CDT R/O COVID-19 12/22/2022 12/22/2022 12/22/2022 12:2 5 PM CDT R/O COVID-19 09/07/2023 09/07/2023 09/07/2023 9:52 PM TEXTILE ENGRAVER documented as of this encounter Care Teams Chainer Relationship Specialty Start Date End Date Kassy Jay MD [address] [place] [phone] PCP - General Family Practice 12/04/22 documented as of this encounter
--- OUTSIDE RECORDS SUMMARY | 2025-06-14 18:22 | XMS_ITS | Encounter Summary ---
Author Organization [facility] Address [address] [place] [address] Care Team Providers Care Radio Station Engineer Name Role Phone Kassy Jay MD Primary Care Provider [phone] Encounter Details Date Type Department Care Team (Late Contact Info) Description 07/18/2005 Outpatient Historical [facility] Pediatrics - [facility] [address] [facility] [address] [place] [address] [place] [address] [place] [address] Social History Tobacco Use Types Packs/Day Years Used Date Smoking Tobacco: Never Assessed Comments Unknown Sex and Gender Information Value Date Recorded Sex Assigned at Not on file Legal Sex Female 4:02 AM PAN WASHER HAND Gender Identity Not on file Sexual Orientation Not on file documented as of this encounter Plan of Treatment Upcoming Encounters Date Type Department Care Team (Late Contact Info) Description 06/26/2025 9:00 AM CDT Video Visit [facility] Adult Psychiatry [place] [address] [phone] Argelia Law NP [address] [address] 08/08/2025 7:30 AM PAN WASHER HAND Video Visit [facility] Adult Psychiatry [place] [address] [address] [place] [address] Argelia Law NP 1420 [facility] [address] [place] [address] 09/25/2025 8:00 AM PAN WASHER HAND Office Visit [facility] Primary Care - Kirby Herrmann [address] [place] [address] Kassy Jay MD [address] [place] [address] [address] documented as of this encounter Visit Diagnoses Not on filedocumented in this encounter Additional Health Concerns Infection Onset Date Last Indicated Resolved Time R/O COVID-19 06/02/2021 06/03/2021 06/03/2021 7:34 PM CDT R/O COVID-19 12/22/2022 12/22/2022 12/22/2022 12:2 5 PM CDT R/O COVID-19 09/07/2023 09/07/2023 09/07/2023 9:52 PM PAN WASHER HAND documented as of this encounter Care Teams Radio Station Engineer Relationship Specialty Start Date End Date Kassy Jay MD [address] [place] [address] [phone] PCP - General Family Practice 12/04/22 documented as of this encounter
--- OUTSIDE RECORDS SUMMARY | 2025-06-14 18:22 | XMS_ITS | Encounter Summary ---
Author Organization [facility] Address [address] [place] [address] Care Team Providers Care Welding Tester Name Role Phone Kassy Jay MD Primary Care Provider [phone] Encounter Details Date Type Department Care Team (Late Contact Info) Description 03/29/2001 Outpatient Historical [facility] Pediatrics - [facility] [address] [facility] [address] [place] [address] [place] [address] [address] [place] [address] Social History Tobacco Use Types Packs/Day Years Used Date Smoking Tobacco: Never Assessed Comments Unknown Sex and Gender Information Value Date Recorded Sex Assigned at Not on file Legal Sex Female 4:02 AM SENIOR TECHNICAL SPECIALIST Gender Identity Not on file Sexual Orientation Not on file documented as of this encounter Plan of Treatment Upcoming Encounters Date Type Department Care Team (Late Contact Info) Description 06/26/2025 9:00 AM CDT Video Visit [facility] Adult Psychiatry [place] [address] [phone] Argelia Law NP [address] [address] 08/08/2025 7:30 AM SENIOR TECHNICAL SPECIALIST Video Visit [facility] Adult Psychiatry [place] [address] [place] [address] [address] [place] [address] Argelia Law NP 1420 [facility] [address] [address] [address] 09/25/2025 8:00 AM SENIOR TECHNICAL SPECIALIST Office Visit [facility] Primary Care - Kirby Herrmann [address] [place] [address] Kassy Jay MD [address] [place] [address] [address] documented as of this encounter Visit Diagnoses Not on filedocumented in this encounter Additional Health Concerns Infection Onset Date Last Indicated Resolved Time R/O COVID-19 06/02/2021 06/03/2021 06/03/2021 7:34 PM CDT R/O COVID-19 12/22/2022 12/22/2022 12/22/2022 12:2 5 PM CDT R/O COVID-19 09/07/2023 09/07/2023 09/07/2023 9:52 PM SENIOR TECHNICAL SPECIALIST documented as of this encounter Care Teams Welding Tester Relationship Specialty Start Date End Date Kassy Jay MD [address] [place] [address] [phone] PCP - General Family Practice 12/04/22 documented as of this encounter
--- OUTSIDE RECORDS SUMMARY | 2025-06-14 18:22 | XMS_ITS | Encounter Summary ---
Author Organization [facility] Address [address] [place] [address] Care Team Providers Care Professor Of Engineering Name Role Phone Kassy Jay MD Primary Care Provider [phone] Encounter Details Date Type Department Care Team ([facility] Contact Info) Description 08/11/2007 Outpatient Historical [facility] Pediatrics - [facility] [address] [place] [address] [place] [address] [place] [address] Social History Tobacco Use Types Packs/Day Years Used Date Smoking Tobacco: Never Assessed Comments Unknown Sex and Gender Information Value Date Recorded Sex Assigned at Not on file Legal Sex Female 4:02 AM ESCALATION ENGINEER Gender Identity Not on file Sexual Orientation Not on file documented as of this encounter Last Filed Vital Signs Vital Sign Reading Time Taken Comments Blood Pressure - - Pulse 104 08/11/2007 9:45 AM ESCALATION ENGINEER Temperature 36.7 C (98.1 F) 08/11/2007 9:45 AM ESCALATION ENGINEER Respiratory Rate 20 08/11/2007 9:45 AM ESCALATION ENGINEER Oxygen Saturation - - Inhaled Oxygen Concentration - - Weight 34 kg (75 lb) 08/11/2007 9:45 AM ESCALATION ENGINEER Height - - Body Mass Index - - documented in this encounter Plan of Treatment Upcoming Encounters Date Type Department Care Team ([facility] Contact Info) Description 06/26/2025 9:00 AM CDT Video Visit [facility] Adult Psychiatry [place] [address] [address] [place] [address] Argelia Law, ARAMIS [address] [address] [place] [address] 08/08/2025 7:30 AM ESCALATION ENGINEER Video Visit [facility] Adult Psychiatry [place] [address] [address] [place] [address] Argelia Law, ARAMIS [address] [address] [place] [address] 09/25/2025 8:00 AM ESCALATION ENGINEER Office Visit [facility] Primary Care - Kirby Herrmann [address] [place] [address] Kassy Jay MD [address] [place] [address] documented as of this encounter Visit Diagnoses Not on filedocumented in this encounter Additional Health Concerns Infection Onset Date Last Indicated Resolved Time R/O COVID-19 06/02/2021 06/03/2021 06/03/2021 7:34 PM CDT R/O COVID-19 12/22/2022 12/22/2022 12/22/2022 12:2 5 PM CDT R/O COVID-19 09/07/2023 09/07/2023 09/07/2023 9:52 PM ESCALATION ENGINEER documented as of this encounter Care Teams Professor Of Engineering Relationship Specialty Start Date End Date Kassy Jay MD [address] [address] PCP - General Family Practice 12/04/22 documented as of this encounter
--- OUTSIDE RECORDS SUMMARY | 2025-06-14 18:22 | XMS_ITS | Encounter Summary ---
Author Organization [facility] Address [address] [place] [address] Care Team Providers Care Screed Operator Name Role Phone Kassy Jay MD Primary Care Provider [phone] Encounter Details Date Type Department Care Team (Late st Contact Info) Description 04/19/2007 Orders Only [facility] Pediatrics - [facility] [address] [facility] [address] [place] [address] [place] [address] [facility] [address] [place] [address] Social History Tobacco Use Types Packs/Day Years Used Date Smoking Tobacco: Never Assessed Comments Unknown Sex and Gender Information Value Date Recorded Sex Assigned at Not on file Legal Sex Female 4:02 AM ELECTRICAL APPRENTICE Gender Identity Not on file Sexual Orientation Not on file documented as of this encounter Progress Notes * Lacie Malik MD - 02/09/2008 1:24 PM CDT PATIENT'S AGE: 7 yrs, 1 mth, 3 wks, 2 days VITALS: TEMP: 98.3??f Oral PULSE: 78 Apical, Regular RESPIRATIONS: 24. WEIGHT: 68lbs NURSE NAME: Mony Cook L ACCOMPANIED BY: Father. ALLERGIES: CURRENT ALLERGY LIST: AUGMENTIN PEANUTS MEDICATIONS: Patient is taking no medications at present. Needs a refill rx for Epipen. CHIEF COMPLAINT: The child is here for left earache. HISTORY: HPI: Has been vacationing in [place]. Has been swimming. Developed left ear pain on 04-16 which was treated with otc ear drops for swimmers ear. Has been fine since then. Here for evaluation because had ear infections as a younger child. Denies any current pain. Afebrile and no URI symptoms. PHYSICAL EXAM: CONSTITUTIONAL: GENERAL APPEARANCE: Healthy appearing, alert patient, normally nourished, developmentally normal and in no acute distress. EYES: CONJUNCTIVA/LIDS: Conjunctivae and lids appear normal. PUPILS: Pupils equal and round. EARS, NOSE, MOUTH AND THROAT: EXTERNAL/EARS AND NOSE: Overall appearance normal without lesions or masses. EARS: Tympanic membranes shiny without retraction. Canals unremarkable. Hearing grossly normal. NOSE (AND SINUS): No abnormality of the nose or sinuses is noted. ORAL: Inspection of gums, lips, palate, and dentition normal. No lesions or masses. Oral mucosa unremarkable with non-inflamed posterior pharynx. NECK: No lymphadenopathy noted. Supple. RESPIRATORY: Clear to auscultation. Normal respiratory effort. CARDIOVASCULAR: CARDIAC: Regular rhythm with no murmurs, rubs, gallops, or abnormal heart sounds. GASTROINTESTINAL: ABDOMEN: Soft, non-tender, without masses. Bowel sound active. LIVER/SPLEEN/KIDNEY: No hepatosplenomegaly. SKIN: INSPECTION: Good color, no rashes, birthmarks or lesions noted on arms, chest or abdomen. ASSESSMENT/PLAN: 380.12-SWIMMER'S EAR STATUS: Resolved. RETURN VISIT/GUIDANCE: Patient is to return on an as needed basis or to call with concerns or changes in condition. if pain returns Electronically Signed by: Lacie Malik MD on Thursday, April 19, 2007 documented in this encounter Plan of Treatment Upcoming Encounters Date Type Department Care Team (Late st Contact Info) Description 06/26/2025 9:00 AM CDT Video Visit [facility] Adult Psychiatry [place] [address] [place] [address] [place], Argelia Lopez NP [address] [place] [address] 08/08/2025 7:30 AM ELECTRICAL APPRENTICE Video Visit [facility] Adult Psychiatry [place] [address] [address] [place] [address] Argelia LawARAMIS [address] [address] [place] [address] 09/25/2025 8:00 AM ELECTRICAL APPRENTICE Office Visit [facility] Primary Care - Kirby Herrmann [address] [address] [address] Kassy Jay MD [address] [place] [address] documented as of this encounter Visit Diagnoses Not on filedocumented in this encounter Additional Health Concerns Infection Onset Date Last Indicated Resolved Time R/O COVID-19 06/02/2021 06/03/2021 06/03/2021 7:34 PM CDT R/O COVID-19 12/22/2022 12/22/2022 12/22/2022 12:2 5 PM CDT R/O COVID-19 09/07/2023 09/07/2023 09/07/2023 9:52 PM ELECTRICAL APPRENTICE documented as of this encounter Care Teams Screed Operator Relationship Specialty Start Date End Date Kassy Jay MD [address] [place] [address] [address] PCP - General Family Practice 12/04/22 documented as of this encounter
--- OUTSIDE RECORDS SUMMARY | 2025-06-14 18:22 | XMS_ITS | Encounter Summary ---
Author Organization [facility] Address [address] [place] [address] Care Team Providers Care Typesetting Supervisor Name Role Phone Kassy Jay MD Primary Care Provider [phone] Encounter Details Date Type Department Care Team (Late Contact Info) Description 1998 Outpatient Historical [facility] Pediatrics - [facility] [address] [address] [facility] [address] [place] [address] Garrett Mittal MD [address] [address] [place] [address] Social History Tobacco Use Types Packs/Day Years Used Date Smoking Tobacco: Never Assessed Comments Unknown Sex and Gender Information Value Date Recorded Sex Assigned at Not on file Legal Sex Female 4:02 AM PILOT CAN ROUTER Gender Identity Not on file Sexual Orientation Not on file documented as of this encounter Plan of Treatment Upcoming Encounters Date Type Department Care Team (Late Contact Info) Description 06/26/2025 9:00 AM CDT Video Visit [facility] Adult Psychiatry [address] [phone] Argelia Law NP [address] [address] 08/08/2025 7:30 AM PILOT CAN ROUTER Video Visit [facility] Adult Psychiatry [address] [place] [address] Thanh Argelia Renaldosharmaine, ARAMIS [address] [address] [place] [address] 09/25/2025 8:00 AM PILOT CAN ROUTER Office Visit [facility] Primary Care - Kirby Herrmann [address] [place] [address] [address] Kassy Jay MD [address] [place] [address] [address] documented as of this encounter Visit Diagnoses Not on filedocumented in this encounter Additional Health Concerns Infection Onset Date Last Indicated Resolved Time R/O COVID-19 06/02/2021 06/03/2021 06/03/2021 7:34 PM CDT R/O COVID-19 12/22/2022 12/22/2022 12/22/2022 12:2 5 PM CDT R/O COVID-19 09/07/2023 09/07/2023 09/07/2023 9:52 PM PILOT CAN ROUTER documented as of this encounter Care Teams Typesetting Supervisor Relationship Specialty Start Date End Date Kassy Jay MD [address] [place] [address] [address] PCP - General Family Practice 12/04/22 documented as of this encounter
--- OUTSIDE RECORDS SUMMARY | 2025-06-14 18:22 | XMS_ITS | Encounter Summary ---
Author Organization [facility] Address [address] [place] [address] Care Team Providers Care Nutrition Faculty Member Name Role Phone Kassy Jay MD Primary Care Provider [phone] Encounter Details Date Type Department Care Team ([facility] Contact Info) Description 07/03/2007 Outpatient Historical [facility] Pediatrics - [facility] [address] [address] [facility] [address] [place] [address] [place] [address] [facility] [address] [place] [address] Social History Tobacco Use Types Packs/Day Years Used Date Smoking Tobacco: Never Assessed Comments Unknown Sex and Gender Information Value Date Recorded Sex Assigned at Not on file Legal Sex Female 4:02 AM MANAGER OF FINANCIAL PLANNING Gender Identity Not on file Sexual Orientation Not on file documented as of this encounter Last Filed Vital Signs Vital Sign Reading Time Taken Comments Blood Pressure - - Pulse 94 07/03/2007 9:00 AM CDT Temperature 36.9 C (98.4 F) 07/03/2007 9:00 AM CDT Respiratory Rate 20 07/03/2007 9:00 AM CDT Oxygen Saturation - - Inhaled Oxygen Concentration - - Weight 33.1 kg (73 lb) 07/03/2007 9:00 AM CDT Height - - Body Mass Index - - documented in this encounter Plan of Treatment Upcoming Encounters Date Type Department Care Team ([facility] Contact Info) Description 06/26/2025 9:00 AM CDT Video Visit [facility] Adult Psychiatry [place] [address] [address] [place], [place] [address] Argelia Law, ARAMIS [address] [address] [place] [address] 08/08/2025 7:30 AM MANAGER OF FINANCIAL PLANNING Video Visit [facility] Adult Psychiatry [place] [address] [address] [place] [address] Argelia Law, ARAMIS [address] [address] [place] [address] 09/25/2025 8:00 AM MANAGER OF FINANCIAL PLANNING Office Visit [facility] Primary Care - Kirby Herrmann [address] [place] [address] [address] Kassy Jay MD [address] [place] [place] [address] documented as of this encounter Visit Diagnoses Not on filedocumented in this encounter Additional Health Concerns Infection Onset Date Last Indicated Resolved Time R/O COVID-19 06/02/2021 06/03/2021 06/03/2021 7:34 PM CDT R/O COVID-19 12/22/2022 12/22/2022 12/22/2022 12:2 5 PM CDT R/O COVID-19 09/07/2023 09/07/2023 09/07/2023 9:52 PM MANAGER OF FINANCIAL PLANNING documented as of this encounter Care Teams Nutrition Faculty Member Relationship Specialty Start Date End Date Kassy Jay MD [address] [place] [place] [address] [address] PCP - General Family Practice 12/04/22 documented as of this encounter
--- OUTSIDE RECORDS SUMMARY | 2025-06-14 18:22 | XMS_ITS | Encounter Summary ---
Author Organization [facility] Address [address] [place] [address] Care Team Providers Care Furniture Upholsterer Apprentice Name Role Phone Kassy Jay MD Primary Care Provider [phone] Encounter Details Date Type Department Care Team (Late Contact Info) Description 02/26/1999 Outpatient Historical [facility] Pediatrics - [facility] [address] [address] [facility] [address] [place] [address] Darren Tabor MD NO ADDRESS ON FILE Social History Tobacco Use Types Packs/Day Years Used Date Smoking Tobacco: Never Assessed Comments Unknown Sex and Gender Information Value Date Recorded Sex Assigned at Not on file Legal Sex Female 4:02 AM ASSISTANT DIRECTOR OF FINANCIAL AID Gender Identity Not on file Sexual Orientation Not on file documented as of this encounter Plan of Treatment Upcoming Encounters Date Type Department Care Team (Late Contact Info) Description 06/26/2025 9:00 AM CDT Video Visit [facility] Adult Psychiatry [address] [address] Argelia Law NP [address] [place] [address] 08/08/2025 7:30 AM ASSISTANT DIRECTOR OF FINANCIAL AID Video Visit [facility] Adult Psychiatry [address] [address] Argelia Law NP [address] [address] [place] [address] 09/25/2025 8:00 AM ASSISTANT DIRECTOR OF FINANCIAL AID Office Visit [facility] Primary Care - Kirby Herrmann [address] [place] [address] [address] Kassy Jay MD [address] [place] [phone] documented as of this encounter Visit Diagnoses Not on filedocumented in this encounter Additional Health Concerns Infection Onset Date Last Indicated Resolved Time R/O COVID-19 06/02/2021 06/03/2021 06/03/2021 7:34 PM CDT R/O COVID-19 12/22/2022 12/22/2022 12/22/2022 12:2 5 PM CDT R/O COVID-19 09/07/2023 09/07/2023 09/07/2023 9:52 PM ASSISTANT DIRECTOR OF FINANCIAL AID documented as of this encounter Care Teams Furniture Upholsterer Apprentice Relationship Specialty Start Date End Date Kassy Jay MD [address] [place] [address] [place] [phone] PCP - General Family Practice 12/04/22 documented as of this encounter
--- OUTSIDE RECORDS SUMMARY | 2025-06-14 18:22 | XMS_ITS | Encounter Summary ---
Author Organization [facility] Address [address] [place] [address] Care Team Providers Care Medical Liaison Name Role Phone Kassy Jay MD Primary Care Provider [phone] Encounter Details Date Type Department Care Team (Late Contact Info) Description 01/01/2006 Outpatient Historical [facility] Childrens Respiratory [facility] Sleep Medicine [address] [facility] [address] [address] Gustavo Sims Social History Tobacco Use Types Packs/Day Years Used Date Smoking Tobacco: Never Assessed Comments Unknown Sex and Gender Information Value Date Recorded Sex Assigned at Not on file Legal Sex Female 4:02 AM GROUND CREW LINESMAN Gender Identity Not on file Sexual Orientation Not on file documented as of this encounter Plan of Treatment Upcoming Encounters Date Type Department Care Team ([facility] Contact Info) Description 06/26/2025 9:00 AM CDT Video Visit [facility] Adult Psychiatry [address] [phone] Argelia Law NP [address] [place] [address] 08/08/2025 7:30 AM GROUND CREW LINESMAN Video Visit [facility] Adult Psychiatry [address] [address] Argelia Law NP [address] [place] [address] [place] [address] 09/25/2025 8:00 AM GROUND CREW LINESMAN Office Visit [facility] Primary Care - Kirby Herrmann [address] [place] [address] [address] Kassy Jay MD [address] [place] [address] [address] documented as of this encounter Visit Diagnoses Not on filedocumented in this encounter Additional Health Concerns Infection Onset Date Last Indicated Resolved Time R/O COVID-19 06/02/2021 06/03/2021 06/03/2021 7:34 PM CDT R/O COVID-19 12/22/2022 12/22/2022 12/22/2022 12:2 5 PM CDT R/O COVID-19 09/07/2023 09/07/2023 09/07/2023 9:52 PM GROUND CREW LINESMAN documented as of this encounter Care Teams Medical Liaison Relationship Specialty Start Date End Date Kassy Jay MD [address] [phone] PCP - General Family Practice 12/04/22 documented as of this encounter
--- OUTSIDE RECORDS SUMMARY | 2025-06-14 18:22 | XMS_ITS | Encounter Summary ---
Author Organization [facility] Address [address] [place] [address] Care Team Providers Care Manager Of Construction Name Role Phone Kassy Jay MD Primary Care Provider [phone] Encounter Details Date Type Department Care Team (Late Contact Info) Description 11/23/2000 Outpatient Historical [facility] Pediatrics - [facility] [address] [address] [facility] [address] [place] [address] [place] [address] [place] [address] Social History Tobacco Use Types Packs/Day Years Used Date Smoking Tobacco: Never Assessed Comments Unknown Sex and Gender Information Value Date Recorded Sex Assigned at Not on file Legal Sex Female 4:02 AM CHANGE RELEASE MANAGER Gender Identity Not on file Sexual Orientation Not on file documented as of this encounter Plan of Treatment Upcoming Encounters Date Type Department Care Team (Late Contact Info) Description 06/26/2025 9:00 AM CDT [facility] Adult Psychiatry [place] [address] [address] Argelia Law NP [address] [address] 08/08/2025 7:30 AM CHANGE RELEASE MANAGER Video Visit [facility] Adult Psychiatry [place] [address] [address] [place] [address] Argelia Law NP [address] [facility] [address] [place] [address] 09/25/2025 8:00 AM CHANGE RELEASE MANAGER Office Visit [facility] Primary Care - Kirby Herrmann [address] [place] [address] Kassy Jay MD [address] [place] [address] [address] documented as of this encounter Visit Diagnoses Not on filedocumented in this encounter Additional Health Concerns Infection Onset Date Last Indicated Resolved Time R/O COVID-19 06/02/2021 06/03/2021 06/03/2021 7:34 PM CDT R/O COVID-19 12/22/2022 12/22/2022 12/22/2022 12:2 5 PM CDT R/O COVID-19 09/07/2023 09/07/2023 09/07/2023 9:52 PM CHANGE RELEASE MANAGER documented as of this encounter Care Teams Manager Of Construction Relationship Specialty Start Date End Date Kassy Jay MD [address] [place] [address] [address] PCP - General Family Practice 12/04/22 documented as of this encounter
--- OUTSIDE RECORDS SUMMARY | 2025-06-14 18:22 | XMS_ITS | Encounter Summary ---
Author Organization [facility] Address [address] [place] [address] Care Team Providers Care Professor Of Law Name Role Phone Kassy Jay MD Primary Care Provider [phone] Encounter Details Date Type Department Care Team (Late Contact Info) Description 01/21/2006 Outpatient Historical [facility] Pediatrics - [facility] [address] [address] [facility] [address] [place] [address] [place] [address] [place] [address] Social History Tobacco Use Types Packs/Day Years Used Date Smoking Tobacco: Never Assessed Comments Unknown Sex and Gender Information Value Date Recorded Sex Assigned at Not on file Legal Sex Female 4:02 AM ASSEMBLER LAY UPS Gender Identity Not on file Sexual Orientation Not on file documented as of this encounter Plan of Treatment Upcoming Encounters Date Type Department Care Team (Late Contact Info) Description 06/26/2025 9:00 AM CDT Video Visit [facility] Adult Psychiatry [place] [address] [address] Argelia Law NP [address] [address] 08/08/2025 7:30 AM ASSEMBLER LAY UPS Video Visit [facility] Adult Psychiatry [place] [address] [address] [place] [address] Argelia Law NP [address] [facility] [address] [place] [address] 09/25/2025 8:00 AM ASSEMBLER LAY UPS Office Visit [facility] Primary Care - Kirby Herrmann [address] [place] [address] [address] [address] Kassy Jay MD [address] [place] [address] [address] documented as of this encounter Visit Diagnoses Not on filedocumented in this encounter Additional Health Concerns Infection Onset Date Last Indicated Resolved Time R/O COVID-19 06/02/2021 06/03/2021 06/03/2021 7:34 PM CDT R/O COVID-19 12/22/2022 12/22/2022 12/22/2022 12:2 5 PM CDT R/O COVID-19 09/07/2023 09/07/2023 09/07/2023 9:52 PM ASSEMBLER LAY UPS documented as of this encounter Care Teams Professor Of Law Relationship Specialty Start Date End Date Kassy Jay MD [address] [place] [address] [phone] PCP - General Family Practice 12/04/22 documented as of this encounter
--- OUTSIDE RECORDS SUMMARY | 2025-06-14 18:22 | XMS_ITS | Encounter Summary ---
Author Organization [facility] Address [address] [place] [address] Care Team Providers Care Desktop Administrator Name Role Phone Kassy Jay MD Primary Care Provider [phone] Encounter Details Date Type Department Care Team (Late Contact Info) Description 07/21/2005 Outpatient Historical [facility] Pediatrics - [facility] [address] [facility] [address] [place] [address] [place] [address] [address] [place] [address] Social History Tobacco Use Types Packs/Day Years Used Date Smoking Tobacco: Never Assessed Comments Unknown Sex and Gender Information Value Date Recorded Sex Assigned at Not on file Legal Sex Female 4:02 AM FINISHING FRAME RUNNER Gender Identity Not on file Sexual Orientation Not on file documented as of this encounter Plan of Treatment Upcoming Encounters Date Type Department Care Team (Late Contact Info) Description 06/26/2025 9:00 AM CDT Video Visit [facility] Adult Psychiatry [place] [address] [phone] Argelia Law NP [address] [address] 08/08/2025 7:30 AM FINISHING FRAME RUNNER Video Visit [facility] Adult Psychiatry [place] [address] [address] [place] [address] Argelia Law NP [address] [facility] [address] [place] [address] 09/25/2025 8:00 AM FINISHING FRAME RUNNER Office Visit [facility] Primary Care - Kirby Herrmann [address] [place] [address] [address] Kassy Jay MD [address] [place] [address] [address] documented as of this encounter Visit Diagnoses Not on filedocumented in this encounter Additional Health Concerns Infection Onset Date Last Indicated Resolved Time R/O COVID-19 06/02/2021 06/03/2021 06/03/2021 7:34 PM CDT R/O COVID-19 12/22/2022 12/22/2022 12/22/2022 12:2 5 PM CDT R/O COVID-19 09/07/2023 09/07/2023 09/07/2023 9:52 PM FINISHING FRAME RUNNER documented as of this encounter Care Teams Desktop Administrator Relationship Specialty Start Date End Date Kassy Jay MD [address] [place] [address] [address] PCP - General Family Practice 12/04/22 documented as of this encounter
--- OUTSIDE RECORDS SUMMARY | 2025-06-14 18:22 | XMS_ITS | Encounter Summary ---
Author Organization [facility] Address [address] [place] [address] Care Team Providers Care Certified Prosthetist Name Role Phone Kassy Jay MD Primary Care Provider [phone] Encounter Details Date Type Department Care Team ([facility] Contact Info) Description 04/19/2007 Outpatient Historical [facility] Pediatrics - [facility] [address] [place] [address] [place] [address] [facility] [address] [place] [address] Social History Tobacco Use Types Packs/Day Years Used Date Smoking Tobacco: Never Assessed Comments Unknown Sex and Gender Information Value Date Recorded Sex Assigned at Not on file Legal Sex Female 4:02 AM LAW LIBRARIAN Gender Identity Not on file Sexual Orientation Not on file documented as of this encounter Last Filed Vital Signs Vital Sign Reading Time Taken Comments Blood Pressure - - Pulse 78 04/19/2007 10:45 AM CDT Temperature 36.8 C (98.3 F) 04/19/2007 10:45 AM CDT Respiratory Rate 24 04/19/2007 10:45 AM CDT Oxygen Saturation - - Inhaled Oxygen Concentration - - Weight 30.8 kg (68 lb) 04/19/2007 10:45 AM CDT Height - - Body Mass Index - - documented in this encounter Plan of Treatment Upcoming Encounters Date Type Department Care Team ([facility] Contact Info) Description 06/26/2025 9:00 AM CDT Video Visit [facility] Adult Psychiatry [place] [address] [address] [place], [place] [address] Argelia Law, [place] [address] [address] [place] [address] 08/08/2025 7:30 AM LAW LIBRARIAN Video Visit [facility] Adult Psychiatry [place] [address] [address] [place] [address] Argelia Law, ARAM[place] [address] [address] [place] [address] 09/25/2025 8:00 AM LAW LIBRARIAN Office Visit [facility] Primary Care - Kirby Herrmann [address] [place] [address] Kassy Jay MD [address] [place] [phone] documented as of this encounter Visit Diagnoses Not on filedocumented in this encounter Additional Health Concerns Infection Onset Date Last Indicated Resolved Time R/O COVID-19 06/02/2021 06/03/2021 06/03/2021 7:34 PM CDT R/O COVID-19 12/22/2022 12/22/2022 12/22/2022 12:2 5 PM CDT R/O COVID-19 09/07/2023 09/07/2023 09/07/2023 9:52 PM LAW LIBRARIAN documented as of this encounter Care Teams Certified Prosthetist Relationship Specialty Start Date End Date Kassy Jay MD [address] [place] [address] PCP - General Family Practice 12/04/22 documented as of this encounter
--- OUTSIDE RECORDS SUMMARY | 2025-06-14 18:22 | XMS_ITS | Encounter Summary ---
Author Organization [facility] Address [address] [place] [address] Care Team Providers Care Retail Pharmacy Merchandiser Name Role Phone Kassy Jay MD Primary Care Provider [phone] Encounter Details Date Type Department Care Team (Late st Contact Info) Description 04/28/2006 Orders Only [facility] Pediatrics - [facility] [address] [facility] [address] [place] [address] [place] [address] [facility] [address] [place] [address] Social History Tobacco Use Types Packs/Day Years Used Date Smoking Tobacco: Never Assessed Comments Unknown Sex and Gender Information Value Date Recorded Sex Assigned at Not on file Legal Sex Female 4:02 AM PETROLEUM REFINERY LABORER Gender Identity Not on file Sexual Orientation Not on file documented as of this encounter Progress Notes * Lacie Malik MD - 06/29/2008 9:55 PM CDT TIME:10:41 am PATIENT`S HOME PHONE: PATIENT`S WORK PHONE: PATIENT`S INSURANCE: [facility] WHO TOOK THE CALL: Alana Ba A PATIENT'S AGE: 6 yrs, 2 mths, 0 wks, 1 day GENERAL INFORMATION PCP: King. WHO CALLED: Patient`s father called. SECTION 1: REQUESTED ACTION: mcdopa 04/28/06 at 10:42 am MEDICATION REQUEST: Epi-Pen needed for school. Dad states this script is written each year for her school. [address] in [place].////Alana DOCTOR`S RESPONSE: nicole 04/28/06 at 11:33 am MEDICATIONS: Call in to Pharmacy EPIPEN JR INTRAMUSCULAR DEVICE 1:2000 UNITS, use as directed, 1 Dispensed, status: NEW PRESCRIPTION, 04/28/2006. SECTION 2: called out meds and dad aware kr Electronically Signed by: Huyen Merrill on Friday, April 28, 2006 documented in this encounter Plan of Treatment Upcoming Encounters Date Type Department Care Team (Late st Contact Info) Description 06/26/2025 9:00 AM CDT Video Visit [facility] Adult Psychiatry [address] [address] Argelia Law NP [address] [place] [address] 08/08/2025 7:30 AM PETROLEUM REFINERY LABORER Video Visit [facility] Adult Psychiatry [address] [address] Argelia Law NP [address] [place] [address] 09/25/2025 8:00 AM PETROLEUM REFINERY LABORER Office Visit [facility] Primary [place] [address] Kassy Jay MD [address] [place] [address] documented as of this encounter Visit Diagnoses Not on filedocumented in this encounter Additional Health Concerns Infection Onset Date Last Indicated Resolved Time R/O COVID-19 06/02/2021 06/03/2021 06/03/2021 7:34 PM CDT R/O COVID-19 12/22/2022 12/22/2022 12/22/2022 12:2 5 PM CDT R/O COVID-19 09/07/2023 09/07/2023 09/07/2023 9:52 PM PETROLEUM REFINERY LABORER documented as of this encounter Care Teams Retail Pharmacy Merchandiser Relationship Specialty Start Date End Date Kassy Jay MD [address] [place] [phone] PCP - General Family Practice 12/04/22 documented as of this encounter
--- OUTSIDE RECORDS SUMMARY | 2025-06-14 18:22 | XMS_ITS | Encounter Summary ---
Author Organization [facility] Address [address] [place] [address] Care Team Providers Care Biomass Boiler Operator Name Role Phone Kassy Jay MD Primary Care Provider [phone] Encounter Details Date Type Department Care Team ([facility] Contact Info) Description 1998 Outpatient Historical [facility] MAURIC[facility] Tabor, Darren Ruiz MD NO ADDRESS ON FILE Social History Tobacco Use Types Packs/Day Years Used Date Smoking Tobacco: Never Assessed Comments Unknown Sex and Gender Information Value Date Recorded Sex Assigned at Not on file Legal Sex Female 4:02 AM PORT CRANE OPERATOR Gender Identity Not on file Sexual Orientation Not on file documented as of this encounter Plan of Treatment Upcoming Encounters Date Type Department Care Team ([facility] Contact Info) Description 06/26/2025 9:00 AM CDT Video Visit [facility] [place]iatry [address] [place] [address] Argelia Law NP [address] [place], [place] [address] [address] 08/08/2025 7:30 AM PORT CRANE OPERATOR Video Visit [facility] [place] Psychiatry [address] [address] Argelia Law NP [address] [place] [address] [place] [address] 09/25/2025 8:00 AM PORT CRANE OPERATOR Office Visit [facility] Primary Care - Kirby Herrmann [address] [place] [address] [address] Kassy Jay MD [address] [place] [phone] documented as of this encounter Visit Diagnoses Not on filedocumented in this encounter Additional Health Concerns Infection Onset Date Last Indicated Resolved Time R/O COVID-19 06/02/2021 06/03/2021 06/03/2021 7:34 PM CDT R/O COVID-19 12/22/2022 12/22/2022 12/22/2022 12:2 5 PM CDT R/O COVID-19 09/07/2023 09/07/2023 09/07/2023 9:52 PM PORT CRANE OPERATOR documented as of this encounter Care Teams Biomass Boiler Operator Relationship Specialty Start Date End Date Kassy Jay MD [address] [place] [phone] PCP - General Family Practice 12/04/22 documented as of this encounter
--- OUTSIDE RECORDS SUMMARY | 2025-06-14 18:22 | XMS_ITS | Encounter Summary ---
Author Organization [facility] Address [address] [place] [address] Care Team Providers Care Zigzagger Name Role Phone Kassy Jay MD Primary Care Provider [phone] Encounter Details Date Type Department Care Team (Late Contact Info) Description 1998 Outpatient Historical [facility] MAURICIO Yadav, Alley Cid MD [address] [place] [phone] Social History Tobacco Use Types Packs/Day Years Used Date Smoking Tobacco: Never Assessed Comments Unknown Sex and Gender Information Value Date Recorded Sex Assigned at Not on file Legal Sex Female 4:02 AM MATTRESS SPRING ENCASER Gender Identity Not on file Sexual Orientation Not on file documented as of this encounter Plan of Treatment Upcoming Encounters Date Type Department Care Team (Late Contact Info) Description 06/26/2025 9:00 AM CDT Video Visit [facility] Adult [place]iat[place] [address] [place] [address] Argelia Law NP [address] [place], [place] [address] [address] 08/08/2025 7:30 AM MATTRESS SPRING ENCASER Video Visit [facility] Adult Psychiatry [address] [place] [address] Argelia Law NP [address] [address] [place] [address] 09/25/2025 8:00 AM MATTRESS SPRING ENCASER Office Visit [facility] Primary Care - Kirby Herrmann [address] [address] Kassy Jay MD [address] [place] [phone] documented as of this encounter Visit Diagnoses Not on filedocumented in this encounter Additional Health Concerns Infection Onset Date Last Indicated Resolved Time R/O COVID-19 06/02/2021 06/03/2021 06/03/2021 7:34 PM CDT R/O COVID-19 12/22/2022 12/22/2022 12/22/2022 12:2 5 PM CDT R/O COVID-19 09/07/2023 09/07/2023 09/07/2023 9:52 PM MATTRESS SPRING ENCASER documented as of this encounter Care Teams Zigzagger Relationship Specialty Start Date End Date Kassy Jay MD [address] [place] [phone] PCP - General Family Practice 12/04/22 documented as of this encounter
--- OUTSIDE RECORDS SUMMARY | 2025-06-14 18:22 | XMS_ITS | Encounter Summary ---
Author Organization [facility] Address [address] [place] [address] Care Team Providers Care Genetic Counsellor Name Role Phone Kassy Jay MD Primary Care Provider [phone] Encounter Details Date Type Department Care Team (Late Contact Info) Description 08/06/1999 Outpatient Historical [facility] Pediatrics - [facility] [address] [address] [facility] [address] [place] [address] Darren Tabor MD NO ADDRESS ON FILE Social History Tobacco Use Types Packs/Day Years Used Date Smoking Tobacco: Never Assessed Comments Unknown Sex and Gender Information Value Date Recorded Sex Assigned at Not on file Legal Sex Female 4:02 AM GARAGE ATTENDANT Gender Identity Not on file Sexual Orientation Not on file documented as of this encounter Plan of Treatment Upcoming Encounters Date Type Department Care Team (Late Contact Info) Description 06/26/2025 9:00 AM CDT Video Visit [facility] Adult Psychiatry [address] [address] Argelia Law NP [address] [place] [address] 08/08/2025 7:30 AM GARAGE ATTENDANT Video Visit [facility] Adult Psychiatry [address] [address] Argelia Law NP [address] [address] [place] [address] 09/25/2025 8:00 AM GARAGE ATTENDANT Office Visit [facility] Primary Care - Kirby Herrmann [address] [place] [address] Kassy Jay MD [address] [place] [phone] documented as of this encounter Visit Diagnoses Not on filedocumented in this encounter Additional Health Concerns Infection Onset Date Last Indicated Resolved Time R/O COVID-19 06/02/2021 06/03/2021 06/03/2021 7:34 PM CDT R/O COVID-19 12/22/2022 12/22/2022 12/22/2022 12:2 5 PM CDT R/O COVID-19 09/07/2023 09/07/2023 09/07/2023 9:52 PM GARAGE ATTENDANT documented as of this encounter Care Teams Genetic Counsellor Relationship Specialty Start Date End Date Kassy Jay MD [address] [place] [phone] PCP - General Family Practice 12/04/22 documented as of this encounter
--- OUTSIDE RECORDS SUMMARY | 2025-06-14 18:22 | XMS_ITS | Encounter Summary ---
Author Organization [facility] Address [address] [place] [address] Care Team Providers Care Tailor Men'S Ready To Wear Name Role Phone Kassy Jay MD Primary Care Provider [phone] Encounter Details Date Type Department Care Team (Late Contact Info) Description 1998 Outpatient Historical [facility] Pediatrics - [facility] [address] [address] [facility] [address] [place] [address] Darren Tabor MD NO ADDRESS ON FILE Social History Tobacco Use Types Packs/Day Years Used Date Smoking Tobacco: Never Assessed Comments Unknown Sex and Gender Information Value Date Recorded Sex Assigned at Not on file Legal Sex Female 4:02 AM MORGUE KEEPER Gender Identity Not on file Sexual Orientation Not on file documented as of this encounter Plan of Treatment Upcoming Encounters Date Type Department Care Team (Late Contact Info) Description 06/26/2025 9:00 AM CDT Video Visit [facility] Adult Psychiatry [address] [address] Argelia Law NP [address] [place] [address] 08/08/2025 7:30 AM MORGUE KEEPER Video Visit [facility] Adult Psychiatry [address] [address] Argelia Law NP [address] [address] [place] [address] 09/25/2025 8:00 AM MORGUE KEEPER Office Visit [facility] Primary Care - Kirby Herrmann [address] [place] [address] [address] Kassy Jay MD [address] [place] [place] [place] [phone] documented as of this encounter Visit Diagnoses Not on filedocumented in this encounter Additional Health Concerns Infection Onset Date Last Indicated Resolved Time R/O COVID-19 06/02/2021 06/03/2021 06/03/2021 7:34 PM CDT R/O COVID-19 12/22/2022 12/22/2022 12/22/2022 12:2 5 PM CDT R/O COVID-19 09/07/2023 09/07/2023 09/07/2023 9:52 PM MORGUE KEEPER documented as of this encounter Care Teams Tailor Men'S Ready To Wear Relationship Specialty Start Date End Date Kassy Jay MD [address] [place] [place] [phone] PCP - General Family Practice 12/04/22 documented as of this encounter
--- OUTSIDE RECORDS SUMMARY | 2025-06-14 18:22 | XMS_ITS | Clinical Summary ---
Author Organization [facility] Address [address] [facility] [place] [address] Care Team Providers Care Change Control Coordinator Name Role Phone Kassy Jay MD Primary Care Provider [phone] Source Comments [facility] [employer],non-owned Affiliates and Associated Physician Practices is amultiple site organization consisting of ambulatory clinics and hospital sitesin [place], [place], [place] and [place]. This disclosure is being madepursuant to the Care Everywhere program and may not contain all information available regarding this patient. Last updated 18.[facility] [employer] Allergies Active Allergy Reactions Criticality Noted Date Comments Allergy Anaphylaxis High 07/20/2022 Amoxicillin GI Discomfort 03/29/2015 Amoxicillin-Pot Clavulanate Nausea and/or Vomiting Low 07/17/2016 Amoxicillin-Pot Clavulanate Anaphylaxis,GI Discomfort High 09/30/2018 Augmentin Urticaria Medium 08/31/2023 Bee Venom Anaphylaxis High 03/23/2022 Cat Hair Extract Urticaria Medium 03/22/2020 Clavulanic Acid GI Discomfort 03/29/2015 Tree Nuts Shortness of Breath High 02/27/2010 Other reaction(s): Hives, Other (See Comments) Tingling in mouth Venomil Honey Bee Anaphylaxis High 04/23/2020 Medications * This document contains information received from the source organization and may not represent a complete record from that organization. * Be aware that medications may not be up to date on this document. Alwaysverify current medications with the patient. Nebulizer Use as directed Acti ve albuterol (PROVENTIL;VENT LOUISA) (2.5 MG/3ML) 0.083% nebulizer solution 9 Active levonorgestrel (MIRENA, 52 MG,) 20 MCG/24HR IUD 1 (one) device by Intrauterine route as directed Active famotidine (PEPCID) 20 MG tablet Take 1 (one) tablet by mouth 2 times daily 2 Active albuterol HFA (Proventil; Ventolin; Proair) 108 (90 Base) MCG/ACT inhaler Inhale 2 (two) puffs by mouth every 6 hours 2 Active ondansetron (Zofran) 8 MG tablet Take 1 (one) tablet by mouth every 8 hours as needed 3 Active EPINEPHrine (Epipen) 0.3 MG/0.3ML auto-injector pen Inject 0.3 mL into muscle once daily as needed 2 Active gabapentin (Neurontin) 300 MG capsule Take 2 (two) capsules by mouth at bedtime 3 capsules at bedtime 3 Active albuterol-iprat ropium (Duo-Neb) 0.5-2.5 (3) MG/3ML nebulizer solution every 12 hours as needed 2 Active Gvoke PFS 1 MG/0.2ML SOSY INJECT 1 MG UNDER THE SKIN ONCE FOR 1 DOSE 3 Active amphetamine-dex troamphetamine XR 24hr (Adderall XR) 15 MG capsule Take 20 mg by mouth once daily 4 Active amphetamine-dex troamphetamine (Adderall) 10 MG tablet Take 1 (one) tablet by mouth once daily 4 Active benztropine (Cogentin) 1 MG tablet Take 1 (one) tablet by mouth 2 times daily 4 Active cariprazine (Vraylar) 6 MG capsule Take 1 (one) capsule by mouth once daily 4 Active traZODone (Desyrel) 100 MG tablet Take 4 (four) tablets by mouth at bedtime 4 Active folic acid (Folvite) 1 MG tablet Take 1 (one) tablet by mouth once daily 800 mcg Active LORazepam (Ativan) 2 MG tablet Take 1 (one) tablet by mouth every 8 hours as needed 4 Active Sodium Fluoride 5000 Plus 1.1 % 4 Active Active Problems Problem Noted Date Diagnosed Date Abnormal uterine bleeding 08/31/20232022 Acute non-recurrent frontal sinusitis 08/31/2023 08/31/2023 Anemia 08/31/2023 08/31/2023 Bruising 08/31/2023 08/31/2023 Dysgeusia 08/31/2023 08/31/2023 Electrolyte abnormality 08/31/2023 08/31/20 23 Elevated prolactin level 08/31/2023 023 Hyponatremia 08/31/2023 08/31/2023 Major depressive disorder, single episode, unspe cified 08/31/2023 08/31/2023 Pulmonary infiltrates on CXR 08/31/202307/2023 Seizure-like activity 08/31/2023 08/31/2023 Syncope 08/31/2023 08/31/2023 Tinea corporis 08/31/2023 08/31/2023 Vaginal yeast infection 08/31/2023 08/31/20 23 Migraine without status migrainosus, not intract able 08/31/2023 08/31/2023 Status migrainosus 08/31/2023 08/31/2023 History of positive PPD 08/31/2023 08/31/20 23 Loss of appetite 12/05/2022 08/31/2023 Acute post-traumatic stress disorder 12/05/2022 08/31/2023 Bipolar affective disorder, current episode depr essed 12/05/2022 08/31/2023 Hyperprolactinemia 07/21/2022 08/31/2023 Overview (08/31/2023): Last Assessment & Plan: 34 most recently. Likely 2/2 Latuda per endocrine Adverse drug effect 06/17/2022 08/31/2023 Overview (08/31/2023): Consider possible drug reaction. Stop Cymbalta. Zyrtec & solumedrol given. Make appt with urogynaecologist. Axillary hyperhidrosis 06/17/2022 Overview (08/31/2023): Ref to derm, # given Hypoglycemia 06/17/2022 08/31/2023 Overview (08/31/2023): Last Assessment & Plan: Reports several episodes of hypoglycemia since April, was following with [facility] Endocrinology. Recently started on diazoxide. BG meter alarmed low BG on day of presentation, pt attempted to eat but lost consciousness. Possibly due to polypharmacy vs rare insulinoma. - Endocrine follwoing, started on 72hr fasting protocol, fasting started on 07/20/22 at 11AM - q4h BG checks - when BG <60, send serum glucose, insulin, c-peptide, proinsulin, sulfonylurea screen, and beta-hydroxybutyrate - if serum glucose >60, cancel all tests and continue fast, checking BG q1h - if serum glucose 45-60, continue fast and send hourly insulin, C-peptide, proinsulin, sulfonylurea, and beta-hydroxybutyrate unless pt has symptoms of hypoglycemia - end fast if serum glucose <45, symptoms of hypoglycemia, or if 72h elapsed. Give 1mg IV glucagon and send serum glucose before glucagon administration and at 10, 20, and 30 min after. - TSH 0.78, free T4 0.90, A1C 5.6%. Cosyntropin stim test WNL (10.7->22.9->26.4). 17-hydroxyprogesterone pending. Anti-insulin Ab pending. - hold home diazoxide Completed 72h fast today, sent hypoglycemia labs. Discussed with veronica, outpatient fashion supervisor Dr. Mejia will f/u with results & further management. Endo to coordinate sending results to Dr. Mejia. Recurrent. Followed by Dr Diego. Continue freestyle efren to monitor. Screening for tuberculosis 02/05/202208/31 Vitamin B12 deficiency (non anemic) 12/16/2021 08/31/2023 Unspecified mood (affective) disorder 08/19/2021 08/31/2023 Episodic mood disorder 08/19/2021 Injury of left foot 08/09/2021 08/31/2023 Nightmares 07/01/2021 08/31/2023 Bipolar I disorder 04/30/2021 08/31/2023 Atrial tachycardia 04/15/2021 08/31/2023 Elevated blood pressure read ing without diagnosis of hypertension 04/15/2021 08/31/2023 Febrile illness 04/15/2021 08/31/2023 Frequent headaches 04/15/2021 08/31/2023 Hospital discharge follow-up 04/15/202107/2023 Mild intermittent asthma 04/15/2021 023 Pain of right lower extremity 04/15/2021 Weight gain 04/15/2021 08/31/2023 Pain of multiple sites 03/12/2021 Positive TB test 02/26/2021 08/31/2023 Insomnia 11/27/2020 08/31/2023 Breakthrough bleeding associ ated with intrauterine device (IUD) 05/17/2020 Panic disorder without agoraphobia 04/25/2020 Moderate episode of recurrent major depressive d isorder 04/25/2020 Morbid (severe) obesity due to excess calories 0 04/19/2020 08/31/2023 PTSD (post-traumatic stress disorder) 03/18/2020 08/31/2023 ADD (attention deficit disorder) 03/06/2020 Bipolar affective disorder, currently depressed, moderate 03/06/2020 08/31/2023 Generalized anxiety disorder 03/06/202007/2023 Panic disorder 03/06/2020 08/31/2023 Severe episode of recurrent major depressive disorder, without psychotic features 01/27/2020 08/31/2023 Overview (08/31/2023): 06/17/22 PHQ9 = 14 Suicidal ideations 01/27/2020 Gastroesophageal reflux disease 09/22/2019 08/31/2023 Overview (08/31/2023): Last Assessment & Plan: -cont pepcid and ppi Depression with anxiety 09/22/2019 08/31/20 23 Migraine 09/22/2019 08/31/2023 Obsessive-compulsive disorder 09/22/2019 History of positive PPD 09/22/2019 08/31/20 23 Nonspecific reaction to tube rculin skin test without active tuberculosis 03/23/2019 08/31/2023 Psychologic conversion disorder 02/22/2019 08/31/2023 Overview (08/31/2023): Last Assessment & Plan: - pt presenting after shaking episode similar to previous episodes of psychogenic nonepileptic seizures. 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 - Admitted for Observation secondary to sedation. Back to baseline mental status today. 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 Pharmacy list confirmed with patient. Concern of polypharmacy discussed with patient. - witnessed pseudoseizure 11 AM, VS stable and BG 111. No meds given. Self resolved. - Continue home Lamictal, Topomax and gabapentin Anxiety state 08/24/2018 History of OCD (obsessive compulsive disorder) 1 10/25/2017 Obesity (BMI 30-39.9) 08/20/2018 08/31/2023 Body mass index (BMI) less t morton 5th percentile for age in pediatric patient 08/20/2018 08/31/2023 Cluster B personality disorder in adult 05/22/20 Overview (08/31/2023): Last Assessment & Plan: - Continue home Latuda Eczema 06/10/2017 Heart murmur 06/10/2017 History of anemia 06/10/2017 Cat allergies 06/10/2017 08/31/2023 Encounter for health-related screening 7 08/31/2023 Tree nut allergy 03/31/2017 08/31/2023 Generalized anxiety disorder 01/21/2017 Overview (01/14/2018): Overview: Dr. Bowles; on atarax and celexa Irregular menses 01/21/2017 Overview (01/14/2018): Overview: Thinks from [facility]; has follow up with 02/06/17 Generalized anxiety disorder 01/21/201707/2023 Overview (08/31/2023): Overview: Overview: Dr. Bowles; on atarax and celexa Last Assessment & Plan: - patient with chart history of BARBIE, MDD, ptsd, and borderline personality disorder. - follows with psychiatrist and on extensive medication regimen. - cont home duloxetine, lurasidone, lamotrigine, and prazosin. - held several medications including nortriptyline, temazepam,clonazepam and gabapentin given drowsiness Irregular menses 01/21/2017 08/31/2023 Overview (08/31/2023): Overview: Thinks from [facility]; has follow up with 02/06/17 Overview: Overview: Thinks from [facility]; has follow up with 02/06/17 Health management deficit 12/11/20152022 Asthma 03/29/2015 Overview (08/31/2023): Last Assessment & Plan: - stable, cont home inhalers Asthma, moderate persistent 06/16/201108/21 Overview (08/31/2023): Last Assessment & Plan: Without acute exacerbation - substitute Breo to home Advair and albuterol prn. Allergic rhinitis 05/21/2005 Resolved Problems Problem Noted Date Diagnosed Date Resolved Date Scabies 08/31/2023 08/31/2023 09/28/2023 Bilateral impacted cerumen 04/15/2021 08/31/2023 1 11/15/2022 Diarrhea 04/15/2021 08/31/2023 09/28/2023 Overview (08/31/2023): Last Assessment & Plan: -cont linzess Nonintractable epilepsy with complex partial seizures 10/08/2018 08/31/2023 Recurrent major depressive d isorder, in full remission 01/14/2018 01/14/2018 Encounters Date Type Department Care Team Description 03/21/2025 Telephone [facility] - LIST OF FIRST JOB IDEAS [address] [place] [phone] Sam Cui MD Itching Vaginal from Last 3 Months Immunizations Immunization Administration Dates Next Due INFLUENZA VACCINE, TRIV. (AF LURIA, FLUZONE TRIVALENT; 6MO+) (IIV3) 09/04/2011,07/10/2009,07/03/2007,07/18,07/18/2004,08/01/2003,07/06/2002 ,08/23/2001,07/13/2001 Covid Moderna primary monova lent 12+ yr 0.5mL 07/15/2021,11/24/2020,10/27/2020 DTaP VACCINE IM (6wk-6yrs) 02/10/2003,,1998,06/29,1998 FLU VACCINE QUAD IIV4 SPLIT 0.25 ML IM 1,06/21/2020,06/21/2018 FLU VACCINE TRI IIV3 SPLIT I M (FLUVIRIN) 07/01/2021 FLU VACCINE TRI IIV3 SPLIT P F IM (FLUVIRIN) 07/29/2008 HEP B VACCINE, PED/ADOL 1998,1998, HIB-PRP-T 4 DOSE 06/03/1999, 8,1998,04/27 INFLUENZA VACCINE 09/04/2011, 9,07/10/2009,07/29,07/03/2007,07/18/2005,07/18/2004 ,08/01/2003,07/06/2002,08/23/2001,06/22 INFLUENZA VACCINE, QUADR. (A FLURIA, FLUZONE QUADRIVALENT; 6MO+) (IIV4) 06/22/2019 INFLUENZA VACCINE, QUADR. (F LUZONE PF QUADRIVALENT; 6-35MO), 0.25 ML (IIV4) 08/17/2014 INFLUENZA VACCINE, QUADR. (F LUZONE; FLULAVAL; FLUARIX; AFLURIA QUADRIVALENT; 6MO+), 0.5 ML (IIV4) 06/22/2020 MENINGOCOCCAL ACWY (MCV4P) VAC IM 03/31/2017,05/2010 MENINGOCOCCAL ACWY MENVEO 02/27/2010 MENINGOCOCCAL B RECOMBINANT, 2 OR 3 DOSE, IM 06/11/2021,03/31/2017 MMR 02/10/2003,02/26/1999 Meningococcal B Recombinant 2 Dose, IM 7 POLIO IPV 02/10/2003, 9,1998,04/27 TDAP (7yrs+) 05/16/2021, 0,03/05/2011,02/27 VARICELLA 02/15/2016,02/26/1999 Family History Medical History Relation Name Comments Other - Cardiac Father heart diseas e Cancer - Breast Maternal Aunt Hypertension Mother Hypertension Paternal Grandfather CAD (Coronary Artery Disease) Paternal Grandmother Relation Name Status Comments Father Alive Maternal Aunt Alive Maternal Grandfather unknown Other Maternal Grandmother Alive Mother Alive Paternal Grandfather Paternal Grandmother Alive Social History Tobacco Use Types Packs/Day Years Used Date Smoking Tobacco: Never Passive Smoke Exposure: Yes Smokeless Tobacco: Never Tobacco Cessation:Counseling Given: Not Answered Alcohol Use Standard Drinks/Week Comments No 0 (1 standard drink = 0.6 oz pur e alcohol) AUDIT-C Answer Date Recorded Q1: How often do you have a drink containing alcohol? Never 11/26/2023 Q2: How many drinks containi ng alcohol do you have on a typical day when you are drinking? Patient does not drink Q3: How often do you have si x or more drinks on one occasion? Never 11/26/2023 Overall Financial Resource Strain (CARDIA) Answe r Date Recorded Difficulty of Paying Living Expenses Not hard at all 05/20/2019 PHQ-2 Answer Date Recorded Patient Health Questionnaire-2 Score 0 07/05/2024 Hunger Vital Sign Answer Date Recorded Worried About Running Out of Food in the Last Ye ar Never true 05/20/2019 Ran Out of Food in the Last Year Never true 05/20/2019 PRAPARE - Transportation Answer Date Re corded Lack of Transportation (Medical) No 05/20/2019 Lack of Transportation (Non-Medical) No 05/20/2019 Comments No Sex and Gender Information Value Date Recorded Sex Assigned at Not on file Legal Sex Female 9:13 AM CDT Gender Identity Not on file Sexual Orientation Not on file Occupation Industry Job Start Date Job End Date [facility] Not on file Not on file Not on file Last Filed Vital Signs Vital Sign Reading Time Taken Comments Blood Pressure 113/71 10/11/2024 2:05 PM PRIMER POWDER BLENDER WET Pulse 82 10/11/2024 2:05 PM [employer]ER POWDER BLENDER W[employer] Temperature 36.7 C (98.1 F) 10/11/2024 11:52 AM PRIMER POWDER BLENDER WET Respiratory Rate 20 10/11/2024 2:05 PM PRIMER POWDER BLENDER WET Oxygen Saturation 98% 10/11/2024 2:05 PM PRIMER POWDER BLENDER WET Inhaled Oxygen Concentration - - Weight 81.6 kg (180 lb) 10/11/2024 11:52 AM PR[employer]ER POWDER BLENDER WET Height 154.9 cm (5' 1) 10/11/2024 11:52 AM PRIMER POWDER BLENDER WET Body Mass Index 34.01 10/11/2024 11:52 AM PRIMER POWDER BLENDER WET Plan of Treatment Upcoming Encounters Date Type Department Care Team (Late st Contact Info) Description 09/12/2025 9:45 AM PRIMER POWDER BLENDER WET Office Visit [facility] - LIST OF FIRST JOB IDEAS [address] [place] [address], [facility] [address] [place] [phone] [place] [address] [place] [address] [address] [place] [place] [phone] Health Maintenance Due Date Last Done Comments HIV SCREENING 2013 HEPATITIS C SCREENING 02/21/2016 PNEUMOCOCCAL VACCINE (1 of 2 - PCV) 2017 HPV VACCINE (1 - 3-dose SCDM series) 2025 COVID-19 VACCINE ( season) 2025 06/21/2023, 08/03/2022, 07/15/2021, Additional history exists INFLUENZA VACCINE (#1) 2025 , 06/05/2023, 06/20/2022, Additional history exists PAP SMEAR 08/31/2026 08/31/2023, 04/23/2020 DTAP/TDAP/TD VACCINES (10 - Td or Tdap) 05/16/2031 05/16/2021, 02/15/2020, 03/05/2011, Additional history exists ZOSTER VACCINE (1 of 2) 02/26/2048 HEPATITIS B VACCINE Completed 1998, 1998, 1998 HIB VACCINE Completed 06/03/1999, 08/21, 1998, Additional history exists MENINGOCOCCAL GROUPS A/C/Y/W VACCINE Aged Out 03/31/2017, 02/27/2010, 02/27/2010 No longer eligible based on patient's age to complete this topic MENINGOCOCCAL (Group B) VACCINE SHARED DECISION-MAKING Completed 06/11/2021, 03/31/2017, 03/31/2017 Procedures Procedure Name Priority Date/Time Associated Diagnosis Comments PAP IG RFLX HPV HR ALL PATH Routine 08/31/2023 10:35 AM PRIMER POWDER BLENDER WET Routine cervical smear from Last 3 Months or Most Recently Relevant to Health Maintenance Results * PAP IG RFLX HPV HR ALL PATH (08/31/2023 10:35 AM PRIMER POWDER BLENDER WET) Diagnosis [email or web address] INSURANCE BILL Comment: NEGATIVE FOR INTRAEPITHELIAL LESION OR MALIGNANCY. REACTIVE CELLULAR CHANGES AND/OR REPAIR ARE PRESENT. Specimen Adequacy [facility] INSURANCE BILL Comment: Satisfactory for evaluation. Endocervical and/or squamous metaplastic cells (endocervical component) are present. Clinician Provided ICD10 [email or web address] INSURANCE BILL Comment: Z01.419 Z12.4 Z97.5 Performed by [facility] INSURANCE BILL Comment:Casey Dunn hnologist (ASCP) Electronically Signed by [employer] INSURANCE BILL Comment:Mony Hermosillo MD, P athologist Comment . [facility] INSURANCE BILL Note [facility] INSURANCE BILL Comment: The Pap smear is a screening test designed to aid in the detection of premalignant and malignant conditions of the uterine cervix. It is not a diagnostic procedure and should not be used as the sole means of detecting cervical cancer. Both false-positive and false-negative reports do occur. . [facility] CPT Code Automation [email or web address] INSURANCE BILL Comment: This liquid based ThinPrep(R) pap test was screened with the use of an image guided system. Note [facility] INSURANCE BILL Comment: The HPV DNA reflex criteria were not met with this specimen result therefore, no HPV testing was performed. . Pathology/Cytolog y ENTIRE ENDOCERVIX / Unknown 08/31/2023 10:35 AM PRIMER POWDER BLENDER WET 09/01/2023 Narrative [facility] INSURANCE BILL - 09/03/2023 3:09 PM PR[employer]ER POWDER BLENDER WET Source.............Cervix No. of containers..01 ThinPrep Vial Resulting Agency Comment Lab Testing performed at: [facility] [id number] Sam Cui MD LAB - PATHOLOGY/CYTOLOGY ORDERAB LES Final Result [email or web address] INSURANCE BILL [address] [place] [address] from Last 3 Months or Most Recently Relevant to Health Maintenance Insurance MEDICAID [employer] Care Teams Change Control Coordinator Relationship Specialty Start Date End Date Kassy Jay MD [address] [place] [phone] PCP - General Family Medicine 06/15/23
--- OUTSIDE RECORDS SUMMARY | 2025-06-14 18:22 | XMS_ITS | Encounter Summary ---
Author Organization [facility] Address [address] [place] [address] Care Team Providers Care Underwater Hunter Trapper Name Role Phone Kassy Jay MD Primary Care Provider [phone] Encounter Details Date Type Department Care Team (Late Contact Info) Description 07/27/2000 Outpatient Historical [facility] - [facility] [address] [place] [address] [place] [address] [place] [address] Social History Tobacco Use Types Packs/Day Years Used Date Smoking Tobacco: Never Assessed Comments Unknown Sex and Gender Information Value Date Recorded Sex Assigned at Not on file Legal Sex Female 4:02 AM OXYGEN THERAPY TECHNICIAN Gender Identity Not on file Sexual Orientation Not on file documented as of this encounter Plan of Treatment Upcoming Encounters Date Type Department Care Team (Late Contact Info) Description 06/26/2025 9:00 AM CDT Video Visit [facility] [place] [address] [phone] Argelia Law NP [address] [address] 08/08/2025 7:30 AM OXYGEN THERAPY TECHNICIAN Video Visit [facility] [place] [address] [place] [address] [place] [place] [place] [phone] Argelia Law NP [address] [facility] [address] [place] [address] 09/25/2025 8:00 AM OXYGEN THERAPY TECHNICIAN Office Visit [facility] - [facility] [place] [address] [place] [phone] Kassy Jay MD [address] [place] [phone] documented as of this encounter Visit Diagnoses Not on filedocumented in this encounter Additional Health Concerns Infection Onset Date Last Indicated Resolved Time R/O COVID-19 06/02/2021 06/03/2021 06/03/2021 7:34 PM CDT R/O COVID-19 12/22/2022 12/22/2022 12/22/2022 12:2 5 PM CDT R/O COVID-19 09/07/2023 09/07/2023 09/07/2023 9:52 PM OXYGEN THERAPY TECHNICIAN documented as of this encounter Care Teams Underwater Hunter Trapper Relationship Specialty Start Date End Date Kassy Jay MD [address] [place] [phone] PCP - General Family Practice 12/04/22 documented as of this encounter
--- OUTSIDE RECORDS SUMMARY | 2025-06-14 18:22 | XMS_ITS | Encounter Summary ---
Author Organization [facility] Address [address] [place] [address] Care Team Providers Care Program Checker Name Role Phone Kassy Jay MD Primary Care Provider [phone] Encounter Details Date Type Department Care Team (Late Contact Info) Description 04/19/[address] [facility] Pediatrics - [facility] [address] [address] [facility] [address] [place] [address] Darren Tabor MD NO ADDRESS ON FILE Social History Tobacco Use Types Packs/Day Years Used Date Smoking Tobacco: Never Assessed Comments Unknown Sex and Gender Information Value Date Recorded Sex Assigned at Not on file Legal Sex Female 4:02 AM PROVIDER RELATIONS MANAGER Gender Identity Not on file Sexual Orientation Not on file documented as of this encounter Plan of Treatment Upcoming Encounters Date Type Department Care Team (Late Contact Info) Description 06/26/2025 9:00 AM CDT Video Visit [facility] Adult Psychiatry [address] [phone] Argelia Law NP [address] [place] [address] 08/08/2025 7:30 AM PROVIDER RELATIONS MANAGER Video Visit [facility] Adult Psychiatry [address] [phone] Argelia Law NP [address] [place] [address] [place] [address] 09/25/2025 8:00 AM PROVIDER RELATIONS MANAGER Office Visit [facility] Primary Care - [place] [facility] [address] [place] [phone] Kassy Jay MD [address] [place] [phone] documented as of this encounter Visit Diagnoses Not on filedocumented in this encounter Additional Health Concerns Infection Onset Date Last Indicated Resolved Time R/O COVID-19 06/02/2021 06/03/2021 06/03/2021 7:34 PM CDT R/O COVID-19 12/22/2022 12/22/2022 12/22/2022 12:2 5 PM CDT R/O COVID-19 09/07/2023 09/07/2023 09/07/2023 9:52 PM PROVIDER RELATIONS MANAGER documented as of this encounter Care Teams Program Checker Relationship Specialty Start Date End Date Kassy Jay MD [address] [place] [phone] PCP - General Family Practice 12/04/22 documented as of this encounter
--- OUTSIDE RECORDS SUMMARY | 2025-06-14 18:22 | XMS_ITS | Encounter Summary ---
Author Organization [facility] Address [address] [place] [address] Care Team Providers Care Director Of Assisted Living Name Role Phone Kassy Jay MD Primary Care Provider [phone] Encounter Details Date Type Department Care Team (Late Contact Info) Description 08/16/1999 Outpatient Historical [facility] ([facility] Pediatrics - [facility] [address] [address] [facility] [address] [place] [address] Darren Tabor MD NO ADDRESS ON FILE Social History Tobacco Use Types Packs/Day Years Used Date Smoking Tobacco: Never Assessed Comments Unknown Sex and Gender Information Value Date Recorded Sex Assigned at Not on file Legal Sex Female 4:02 AM MANAGER LEASING Gender Identity Not on file Sexual Orientation Not on file documented as of this encounter Plan of Treatment Upcoming Encounters Date Type Department Care Team (Late Contact Info) Description 06/26/2025 9:00 AM CDT Video Visit [facility] Adult Psychiatry [address] [address] Argelia Law NP [address] [place] [address] 08/08/2025 7:30 AM MANAGER LEASING Video Visit [facility] Adult Psychiatry [address] [address] Argelia Law NP [address] [address] [place] [address] 09/25/2025 8:00 AM MANAGER LEASING Office Visit [facility] Primary Care - Kirby Herrmann [address] [place] [address] [address] Kassy Jay MD [address] [place] [place] [phone] documented as of this encounter Visit Diagnoses Not on filedocumented in this encounter Additional Health Concerns Infection Onset Date Last Indicated Resolved Time R/O COVID-19 06/02/2021 06/03/2021 06/03/2021 7:34 PM CDT R/O COVID-19 12/22/2022 12/22/2022 12/22/2022 12:2 5 PM CDT R/O COVID-19 09/07/2023 09/07/2023 09/07/2023 9:52 PM MANAGER LEASING documented as of this encounter Care Teams Director Of Assisted Living Relationship Specialty Start Date End Date Kassy Jay MD [address] [place] [address] [place] [phone] PCP - General Family Practice 12/04/22 documented as of this encounter
--- OUTSIDE RECORDS SUMMARY | 2025-06-14 18:22 | XMS_ITS | Encounter Summary ---
Author Organization [facility] Address [address] [place] [address] Care Team Providers Care Exercise Teacher Name Role Phone Kassy Jay MD Primary Care Provider [phone] Encounter Details Date Type Department Care Team ([facility] Contact Info) Description 1998 Outpatient Historical [facility] MAURICIO Tabor, Darren Ruiz MD NO ADDRESS ON FILE Social History Tobacco Use Types Packs/Day Years Used Date Smoking Tobacco: Never Assessed Comments Unknown Sex and Gender Information Value Date Recorded Sex Assigned at Not on file Legal Sex Female 4:02 AM AIRCRAFT ORDNANCE SYSTEMS MECHANIC Gender Identity Not on file Sexual Orientation Not on file documented as of this encounter Plan of Treatment Upcoming Encounters Date Type Department Care Team ([facility] Contact Info) Description 06/26/2025 9:00 AM CDT Video Visit [facility] Adult Psychiatry [address] [place] [address] Argelia Law NP [address] [place], [place] [address] [address] 08/08/2025 7:30 AM AIRCRAFT ORDNANCE SYSTEMS MECHANIC Video Visit [facility] Adult Psychiatry [address] [place] [place] [address] Argelia Law NP [address] [place] [address] [place] [address] 09/25/2025 8:00 AM AIRCRAFT ORDNANCE SYSTEMS MECHANIC Office Visit [facility] Primary Care - Kirby Herrmann [address] [place] [address] [address] Kassy Jay MD [address] [place] [phone] documented as of this encounter Visit Diagnoses Not on filedocumented in this encounter Additional Health Concerns Infection Onset Date Last Indicated Resolved Time R/O COVID-19 06/02/2021 06/03/2021 06/03/2021 7:34 PM CDT R/O COVID-19 12/22/2022 12/22/2022 12/22/2022 12:2 5 PM CDT R/O COVID-19 09/07/2023 09/07/2023 09/07/2023 9:52 PM AIRCRAFT ORDNANCE SYSTEMS MECHANIC documented as of this encounter Care Teams Exercise Teacher Relationship Specialty Start Date End Date Kassy Jay MD [address] [place] [address] [phone] PCP - General Family Practice 12/04/22 documented as of this encounter
--- OUTSIDE RECORDS SUMMARY | 2025-06-14 18:22 | XMS_ITS | Encounter Summary ---
Author Organization [facility] Address [address] [place] [address] Care Team Providers Care Sheet Folder Name Role Phone Kassy Jay MD Primary Care Provider [phone] Encounter Details Date Type Department Care Team (Latest Contact Info) Description 01/01/2006 Outpatient Historical [facility] Gustavo Sims Extrinsic Asthma, Unspecified (Primary Dx) Social History Tobacco Use Types Packs/Day Years Used Date Smoking Tobacco: Never Assessed Comments Unknown Sex and Gender Information Value Date Recorded Sex Assigned at Not on file Legal Sex Female 4:02 AM WEDGER Gender Identity Not on file Sexual Orientation Not on file documented as of this encounter Plan of Treatment Upcoming Encounters Date Type Department Care Team (Late st Contact Info) Description 06/26/2025 9:00 AM CDT Video Visit [facility] Adult Psychiatry [address] [place] [address] Argelia Law NP [address] [place], [place] [address] [address] 08/08/2025 7:30 AM WEDGER Video Visit [facility] Adult Psychiatry [address] [address] [place] [address] Argelia Law NP [address] [place], [place] [address] [place] [address] 09/25/2025 8:00 AM WEDGER Office Visit [facility] Primary Care - Kirby Herrmann [address] [place] [phone] Kassy Jay MD [address] [place] [phone] documented as of this encounter Visit Diagnoses Diagnosis Extrinsic asthma, unspecified- Primary documented in this encounter Additional Health Concerns Infection Onset Date Last Indicated Resolved Time R/O COVID-19 06/02/2021 06/03/2021 06/03/2021 7:34 PM CDT R/O COVID-19 12/22/2022 12/22/2022 12/22/2022 12:2 5 PM CDT R/O COVID-19 09/07/2023 09/07/2023 09/07/2023 9:52 PM WEDGER documented as of this encounter Care Teams Sheet Folder Relationship Specialty Start Date End Date Kassy Jay MD [address] [place] [address] [phone] PCP - General Family Practice 12/04/22 documented as of this encounter
--- OUTSIDE RECORDS SUMMARY | 2025-06-14 18:22 | XMS_ITS | Encounter Summary ---
Author Organization [facility] Address [address] [place] [address] Care Team Providers Care Ingredient Scaler Name Role Phone Kassy Jay MD Primary Care Provider [phone] Encounter Details Date Type Department Care Team (Late Contact Info) Description 06/03/1999 Outpatient Historical [facility] Pediatrics - [facility] [address] [address] [facility] [address] [place] [address] Darren Tabor MD NO ADDRESS ON FILE Social History Tobacco Use Types Packs/Day Years Used Date Smoking Tobacco: Never Assessed Comments Unknown Sex and Gender Information Value Date Recorded Sex Assigned at Not on file Legal Sex Female 4:02 AM CERAMIST Gender Identity Not on file Sexual Orientation Not on file documented as of this encounter Plan of Treatment Upcoming Encounters Date Type Department Care Team (Late Contact Info) Description 06/26/2025 9:00 AM CDT Video Visit [facility] Adult Psychiatry [address] [address] Argelia Law NP [address] [place] [address] 08/08/2025 7:30 AM CERAMIST Video Visit [facility] Adult Psychiatry [address] [address] Argelia Law NP [address] [address] [place] [address] 09/25/2025 8:00 AM CERAMIST Office Visit [facility] Primary Care - Kirby Herrmann [address] [place] [address] [phone] Kassy Jay MD [address] [place] [address] [phone] documented as of this encounter Visit Diagnoses Not on filedocumented in this encounter Additional Health Concerns Infection Onset Date Last Indicated Resolved Time R/O COVID-19 06/02/2021 06/03/2021 06/03/2021 7:34 PM CDT R/O COVID-19 12/22/2022 12/22/2022 12/22/2022 12:2 5 PM CDT R/O COVID-19 09/07/2023 09/07/2023 09/07/2023 9:52 PM CERAMIST documented as of this encounter Care Teams Ingredient Scaler Relationship Specialty Start Date End Date Kassy Jay MD [address] [place] [phone] PCP - General Family Practice 12/04/22 documented as of this encounter
--- OUTSIDE RECORDS SUMMARY | 2025-06-14 18:22 | XMS_ITS | Encounter Summary ---
Author Organization [facility] Address [address] [place] [address] Care Team Providers Care Service Desk Technician Name Role Phone Kassy Jay MD Primary Care Provider Encounter Details Date Type Department Care Team (Late Contact Info) Description 09/11/[address] [facility] Pediatrics - [facility] [address] [address] [facility] [address] [place] [address] [place] [address] [place] [address] Social History Tobacco Use Types Packs/Day Years Used Date Smoking Tobacco: Never Assessed Comments Unknown Sex and Gender Information Value Date Recorded Sex Assigned at Not on file Legal Sex Female 4:02 AM BRIGADIER Gender Identity Not on file Sexual Orientation Not on file documented as of this encounter Last Filed Vital Signs Vital Sign Reading Time Taken Comments Blood Pressure - - Pulse 88 09/11/2006 8:45 AM BRIGADIER Temperature 36.7 C (98 F) 09/11/2006 8:45 AM BRIGADIER Respiratory Rate 20 09/11/2006 8:45 AM BRIGADIER Oxygen Saturation - - Inhaled Oxygen Concentration - - Weight 30.2 kg (66 lb 8 oz) 09/11/2006 8:[address] Height - - Body Mass Index - - documented in this encounter Plan of Treatment Upcoming Encounters Date Type Department Care Team (Late Contact Info) Description 06/26/2025 9:00 AM CDT Video Visit [facility] Adult Psychiatry [place] [address] [address] [place], [place] [address] Thanh, Argelia Lopez, [place] [address] [address] [place], [place] [address] 08/08/2025 7:30 AM BRIGADIER Video Visit [facility] Adult Psychiatry [place] [address] [address] [place], [place] [address] Thanh, Argelia Lopez NP [address] [address] [place], [place] [address] 09/25/2025 8:00 AM BRIGADIER Office Visit [facility] Primary Care - Kirby Herrmann [address] [place] [phone] Kassy Jay MD [address] [place] [phone] documented as of this encounter Visit Diagnoses Not on filedocumented in this encounter Additional Health Concerns Infection Onset Date Last Indicated Resolved Time R/O COVID-19 06/02/2021 06/03/2021 06/03/2021 7:34 PM CDT R/O COVID-19 12/22/2022 12/22/2022 12/22/2022 12:2 5 PM CDT R/O COVID-19 09/07/2023 09/07/2023 09/07/2023 9:52 PM BRIGADIER documented as of this encounter Care Teams Service Desk Technician Relationship Specialty Start Date End Date Kassy Jay MD [address] [place] [phone] PCP - General Family Practice 12/04/22 documented as of this encounter
--- OUTSIDE RECORDS SUMMARY | 2025-06-14 18:22 | XMS_ITS | Encounter Summary ---
Author Organization [facility] Address [address] [place] [address] Care Team Providers Care News Assistant Name Role Phone Kassy Jay MD Primary Care Provider [phone] Encounter Details Date Type Department Care Team ([facility] Contact Info) Description 1998 Outpatient Historical [facility] MAURICIO Tabor, Darren Ruiz MD NO ADDRESS ON FILE Social History Tobacco Use Types Packs/Day Years Used Date Smoking Tobacco: Never Assessed Comments Unknown Sex and Gender Information Value Date Recorded Sex Assigned at Not on file Legal Sex Female 4:02 AM NET C DEVELOPER Gender Identity Not on file Sexual Orientation Not on file documented as of this encounter Plan of Treatment Upcoming Encounters Date Type Department Care Team ([facility] Contact Info) Description 06/26/2025 9:00 AM CDT Video Visit [facility] Adult Psychiatry [address] [place] [address] Argelia Law NP [address] [place], [place] [address] [address] 08/08/2025 7:30 AM NET C DEVELOPER Video Visit [facility] Adult Psychiatry [address] [place] [address] Argelia Law NP [address] [place] [address] [place] [address] 09/25/2025 8:00 AM NET C DEVELOPER Office Visit [facility] Primary Care - Kirby Herrmann [address] [place] [address] Kassy Jay MD [address] [place] [address] [phone] documented as of this encounter Visit Diagnoses Not on filedocumented in this encounter Additional Health Concerns Infection Onset Date Last Indicated Resolved Time R/O COVID-19 06/02/2021 06/03/2021 06/03/2021 7:34 PM CDT R/O COVID-19 12/22/2022 12/22/2022 12/22/2022 12:2 5 PM CDT R/O COVID-19 09/07/2023 09/07/2023 09/07/2023 9:52 PM NET C DEVELOPER documented as of this encounter Care Teams News Assistant Relationship Specialty Start Date End Date Kassy Jay MD [address] [place] [address] [phone] PCP - General Family Practice 12/04/22 documented as of this encounter
--- OUTSIDE RECORDS SUMMARY | 2025-06-14 18:22 | XMS_ITS | Encounter Summary ---
Author Organization [facility] Address [address] [place] [address] Care Team Providers Care Colored Liquid Plastic Applier Name Role Phone Kassy Jay MD Primary Care Provider [phone] Encounter Details Date Type Department Care Team (Late Contact Info) Description 1998 Outpatient Historical [facility] Pediatrics - [facility] [address] [address] [facility] [address] [place] [address] Darren Tabor MD NO ADDRESS ON FILE Social History Tobacco Use Types Packs/Day Years Used Date Smoking Tobacco: Never Assessed Comments Unknown Sex and Gender Information Value Date Recorded Sex Assigned at Not on file Legal Sex Female 4:02 AM HEADING MACHINE OPERATOR Gender Identity Not on file Sexual Orientation Not on file documented as of this encounter Plan of Treatment Upcoming Encounters Date Type Department Care Team (Late Contact Info) Description 06/26/2025 9:00 AM CDT Video Visit [facility] Adult Psychiatry [address] [address] Argelia Law NP [address] [place] [address] 08/08/2025 7:30 AM HEADING MACHINE OPERATOR Video Visit [facility] Adult Psychiatry [address] [address] Argelia Law NP [address] [address] [place] [address] 09/25/2025 8:00 AM HEADING MACHINE OPERATOR Office Visit [facility] Primary Care - Kirby Herrmann [address] [place] [phone] Kassy Jay MD [address] [place] [phone] documented as of this encounter Visit Diagnoses Not on filedocumented in this encounter Additional Health Concerns Infection Onset Date Last Indicated Resolved Time R/O COVID-19 06/02/2021 06/03/2021 06/03/2021 7:34 PM CDT R/O COVID-19 12/22/2022 12/22/2022 12/22/2022 12:2 5 PM CDT R/O COVID-19 09/07/2023 09/07/2023 09/07/2023 9:52 PM HEADING MACHINE OPERATOR documented as of this encounter Care Teams Colored Liquid Plastic Applier Relationship Specialty Start Date End Date Kassy Jay MD [address] [place] [phone] PCP - General Family Practice 12/04/22 documented as of this encounter
--- OUTSIDE RECORDS SUMMARY | 2025-06-14 18:22 | XMS_ITS | Encounter Summary ---
Author Organization [facility] Address [address] [place] [address] Care Team Providers Care Supervisor Metalizing Name Role Phone Kassy Jay MD Primary Care Provider [phone] Encounter Details Date Type Department Care Team (Late Contact Info) Description 11/20/1999 Outpatient Historical [facility] Pediatrics - [facility] [address] [address] [facility] [address] [place] [address] [place] [address] [facility] [place] [address] Social History Tobacco Use Types Packs/Day Years Used Date Smoking Tobacco: Never Assessed Comments Unknown Sex and Gender Information Value Date Recorded Sex Assigned at Not on file Legal Sex Female 4:02 AM DIRECTOR OF KNOWLEDGE MANAGEMENT Gender Identity Not on file Sexual Orientation Not on file documented as of this encounter Plan of Treatment Upcoming Encounters Date Type Department Care Team (Late Contact Info) Description 06/26/2025 9:00 AM CDT Video Visit [facility] Adult Psychiatry [address] [address] Argelia Law NP [address] [address] 08/08/2025 7:30 AM DIRECTOR OF KNOWLEDGE MANAGEMENT Video Visit [facility] Adult Psychiatry [place] [address] [address] [place] [address] Argelia Law NP [address]20 [facility] [address] [place] [address] 09/25/2025 8:00 AM DIRECTOR OF KNOWLEDGE MANAGEMENT Office Visit [facility] Primary Care - Kirby Herrmann [address] [address] Kassy Jay MD [address] [place] [address] [phone] documented as of this encounter Visit Diagnoses Not on filedocumented in this encounter Additional Health Concerns Infection Onset Date Last Indicated Resolved Time R/O COVID-19 06/02/2021 06/03/2021 06/03/2021 7:34 PM CDT R/O COVID-19 12/22/2022 12/22/2022 12/22/2022 12:2 5 PM CDT R/O COVID-19 09/07/2023 09/07/2023 09/07/2023 9:52 PM DIRECTOR OF KNOWLEDGE MANAGEMENT documented as of this encounter Care Teams Supervisor Metalizing Relationship Specialty Start Date End Date Kassy Jay MD [address] [place] [address] [phone] PCP - General Family Practice 12/04/22 documented as of this encounter
--- OUTSIDE RECORDS SUMMARY | 2025-06-14 18:22 | XMS_ITS | Encounter Summary ---
Author Organization [facility] Address [address] [place] [address] Care Team Providers Care Cup Machine Operator Name Role Phone Kassy Jay MD Primary Care Provider Encounter Details Date Type Department Care Team ([facility] Contact Info) Description 08/27/2005 Outpatient Historical [facility] Pediatrics - [facility] [address] [address] [facility] [address] [place] [address] [place] [address] [facility] [address] [place] [address] Social History Tobacco Use Types Packs/Day Years Used Date Smoking Tobacco: Never Assessed Comments Unknown Sex and Gender Information Value Date Recorded Sex Assigned at Not on file Legal Sex Female 4:02 AM COMMISSARY ASSISTANT Gender Identity Not on file Sexual Orientation Not on file documented as of this encounter Last Filed Vital Signs Vital Sign Reading Time Taken Comments Blood Pressure - - Pulse 102 08/27/2005 3:00 PM COMMISSARY ASSISTANT Temperature 36.8 C (98.3 F) 08/27/2005 3:00 PM COMMISSARY ASSISTANT Respiratory Rate 21 08/27/2005 3:00 PM COMMISSARY ASSISTANT Oxygen Saturation - - Inhaled Oxygen Concentration - - Weight 25.9 kg (57 lb) 08/27/2005 3:00 PM COMMISSARY ASSISTANT Height - - Body Mass Index - - documented in this encounter Plan of Treatment Upcoming Encounters Date Type Department Care Team (Late st Contact Info) Description 06/26/2025 9:00 AM CDT Video Visit [facility] Adult Psychiatry [place] [address] [place] [address] Thanh Argelia John, [place] [address] [address] [place], [place] [address] 08/08/2025 7:30 AM COMMISSARY ASSISTANT Video Visit [facility] Adult Psychiatry [place] [address] [address] [place], [place] [address] Argelia Law, [place] [address] [address] [place], [place] [address] 09/25/2025 8:00 AM COMMISSARY ASSISTANT Office Visit [facility] Primary Care - Kirby Herrmann [address] [place] [address] [address] Kassy Jay MD [address] [place] [address] [phone] documented as of this encounter Visit Diagnoses Not on filedocumented in this encounter Additional Health Concerns Infection Onset Date Last Indicated Resolved Time R/O COVID-19 06/02/2021 06/03/2021 06/03/2021 7:34 PM CDT R/O COVID-19 12/22/2022 12/22/2022 12/22/2022 12:2 5 PM CDT R/O COVID-19 09/07/2023 09/07/2023 09/07/2023 9:52 PM COMMISSARY ASSISTANT documented as of this encounter Care Teams Cup Machine Operator Relationship Specialty Start Date End Date Kassy Jay MD [address] [place] [address] [phone] PCP - General Family Practice 12/04/22 documented as of this encounter
--- OUTSIDE RECORDS SUMMARY | 2025-06-14 18:22 | XMS_ITS | Encounter Summary ---
Author Organization [facility] Address [address] [place] [address] Care Team Providers Care Career Center Director Name Role Phone Kassy Jay MD Primary Care Provider [phone] Encounter Details Date Type Department Care Team (Late Contact Info) Description 07/21/2005 Outpatient Historical [facility] Pediatrics - [facility] [address] [address] [facility] [address] [place] [address] [place] [address] [facility] [place] [address] Social History Tobacco Use Types Packs/Day Years Used Date Smoking Tobacco: Never Assessed Comments Unknown Sex and Gender Information Value Date Recorded Sex Assigned at Not on file Legal Sex Female 4:02 AM DATA ENTRY ASSOCIATE Gender Identity Not on file Sexual Orientation Not on file documented as of this encounter Plan of Treatment Upcoming Encounters Date Type Department Care Team (Late Contact Info) Description 06/26/2025 9:00 AM CDT Video Visit [facility] Adult Psychiatry [place] [address] [address] Argelia Law NP [address] [address] 08/08/2025 7:30 AM DATA ENTRY ASSOCIATE Video Visit [facility] Adult Psychiatry [place] [address] [address] [place] [address] Argelia Law NP [address] [facility] [address] [place] [address] 09/25/2025 8:00 AM DATA ENTRY ASSOCIATE Office Visit [facility] Primary Care - Kirby Herrmann [address] [place] [address] Kasys Jay MD [address] [place] [phone] documented as of this encounter Visit Diagnoses Not on filedocumented in this encounter Additional Health Concerns Infection Onset Date Last Indicated Resolved Time R/O COVID-19 06/02/2021 06/03/2021 06/03/2021 7:34 PM CDT R/O COVID-19 12/22/2022 12/22/2022 12/22/2022 12:2 5 PM CDT R/O COVID-19 09/07/2023 09/07/2023 09/07/2023 9:52 PM DATA ENTRY ASSOCIATE documented as of this encounter Care Teams Career Center Director Relationship Specialty Start Date End Date Kassy Jay MD [address] [place] [phone] PCP - General Family Practice 12/04/22 documented as of this encounter
--- OUTSIDE RECORDS SUMMARY | 2025-06-14 18:22 | XMS_ITS | Encounter Summary ---
Author Organization [facility] Address [address] [place] [address] Care Team Providers Care Wallcovering Texturer Name Role Phone Kassy Jay MD Primary Care Provider [phone] Encounter Details Date Type Department Care Team ([facility] Contact Info) Description 09/04/2005 Outpatient Historical [facility] [address] [facility] [facility] [address] Gustavo Sims Social History Tobacco Use Types Packs/Day Years Used Date Smoking Tobacco: Never Assessed Comments Unknown Sex and Gender Information Value Date Recorded Sex Assigned at Not on file Legal Sex Female 4:02 AM BOAT REPAIRER Gender Identity Not on file Sexual Orientation Not on file documented as of this encounter Plan of Treatment Upcoming Encounters Date Type Department Care Team ([facility] Contact Info) Description 06/26/2025 9:00 AM CDT Video Visit [facility] Adult Psychiatry [address] [phone] Argelia Law NP [address] [place] [address] 08/08/2025 7:30 AM BOAT REPAIRER Video Visit [facility] Adult Psychiatry [address] [address] Argelia Law NP [address] [place] [address] [place] [address] 09/25/2025 8:00 AM BOAT REPAIRER Office Visit [facility] Primary Care - Kirby Herrmann [address] [place] [address] [address] Kassy Jay MD [address] [place] [address] documented as of this encounter Visit Diagnoses Not on filedocumented in this encounter Additional Health Concerns Infection Onset Date Last Indicated Resolved Time R/O COVID-19 06/02/2021 06/03/2021 06/03/2021 7:34 PM CDT R/O COVID-19 12/22/2022 12/22/2022 12/22/2022 12:2 5 PM CDT R/O COVID-19 09/07/2023 09/07/2023 09/07/2023 9:52 PM BOAT REPAIRER documented as of this encounter Care Teams Wallcovering Texturer Relationship Specialty Start Date End Date Kassy Jay MD [address] [place] [address] [phone] PCP - General Family Practice 12/04/22 documented as of this encounter
--- OUTSIDE RECORDS SUMMARY | 2025-06-14 18:22 | XMS_ITS | Encounter Summary ---
Author Organization [facility] Address [address] [place] [address] Care Team Providers Care Check Out Cashier Name Role Phone Kassy Jay MD Primary Care Provider [phone] Encounter Details Date Type Department Care Team (Late Contact Info) Description 05/16/2006 Outpatient Historical [facility] Pediatrics - [facility] [address] [facility] [address] [place] [address] [place] [address] [place] [address] Social History Tobacco Use Types Packs/Day Years Used Date Smoking Tobacco: Never Assessed Comments Unknown Sex and Gender Information Value Date Recorded Sex Assigned at Not on file Legal Sex Female 4:02 AM CLINICAL DOCUMENTATION CONSULTANT Gender Identity Not on file Sexual Orientation Not on file documented as of this encounter Plan of Treatment Upcoming Encounters Date Type Department Care Team (Late Contact Info) Description 06/26/2025 9:00 AM CDT Video Visit [facility] Adult Psychiatry [place] [address] [address] Argelia Law NP [address] [address] 08/08/2025 7:30 AM CLINICAL DOCUMENTATION CONSULTANT Video Visit [facility] Adult Psychiatry [place] [address] [address] [address] [place] [address] Argelia Law NP 1420 [facility] [address] [place] [address] [address] 09/25/2025 8:00 AM CLINICAL DOCUMENTATION CONSULTANT Office Visit [facility] Primary Care - Kirby Herrmann [address] [place] [address] Kassy Jay MD [address] [place] [address] [address] documented as of this encounter Visit Diagnoses Not on filedocumented in this encounter Additional Health Concerns Infection Onset Date Last Indicated Resolved Time R/O COVID-19 06/02/2021 06/03/2021 06/03/2021 7:34 PM CDT R/O COVID-19 12/22/2022 12/22/2022 12/22/2022 12:2 5 PM CDT R/O COVID-19 09/07/2023 09/07/2023 09/07/2023 9:52 PM CLINICAL DOCUMENTATION CONSULTANT documented as of this encounter Care Teams Check Out Cashier Relationship Specialty Start Date End Date Kassy Jay MD [address] [place] [address] [address] PCP - General Family Practice 12/04/22 documented as of this encounter
--- OUTSIDE RECORDS SUMMARY | 2025-06-14 18:22 | XMS_ITS | Encounter Summary ---
Author Organization [facility] Address [address] [place] [address] Care Team Providers Care Director Marketing Communications Name Role Phone Kassy Jay MD Primary Care Provider [phone] Encounter Details Date Type Department Care Team (Late Contact Info) Description 02/03/2001 Outpatient Historical [facility] Pediatrics - [facility] [address] [place] [address] [place] [address] [place] [address] Social History Tobacco Use Types Packs/Day Years Used Date Smoking Tobacco: Never Assessed Comments Unknown Sex and Gender Information Value Date Recorded Sex Assigned at Not on file Legal Sex Female 4:02 AM MACHINE TAILER Gender Identity Not on file Sexual Orientation Not on file documented as of this encounter Plan of Treatment Upcoming Encounters Date Type Department Care Team (Late Contact Info) Description 06/26/2025 9:00 AM CDT Video Visit [facility] Adult Psychiatry [place] [address] [address] Argelia Law NP [address] [address] 08/08/2025 7:30 AM MACHINE TAILER Video Visit [facility] Adult Psychiatry [place] [address] [address] [place] [address] Argelia Law NP 1420 [facility] [address] [place] [address] 09/25/2025 8:00 AM MACHINE TAILER Office Visit [facility] Primary Care - Kirby Herrmann [address] [place] [address] [address] Kassy Jay MD [address] [place] [address] [address] documented as of this encounter Visit Diagnoses Not on filedocumented in this encounter Additional Health Concerns Infection Onset Date Last Indicated Resolved Time R/O COVID-19 06/02/2021 06/03/2021 06/03/2021 7:34 PM CDT R/O COVID-19 12/22/2022 12/22/2022 12/22/2022 12:2 5 PM CDT R/O COVID-19 09/07/2023 09/07/2023 09/07/2023 9:52 PM MACHINE TAILER documented as of this encounter Care Teams Director Marketing Communications Relationship Specialty Start Date End Date Kassy Jay MD [address] [place] [address] [phone] PCP - General Family Practice 12/04/22 documented as of this encounter
--- OUTSIDE RECORDS SUMMARY | 2025-06-14 18:22 | XMS_ITS | Encounter Summary ---
Author Organization [facility] Address [address] [place] [address] Care Team Providers Care Machine Hostler Name Role Phone Kassy Jay MD Primary Care Provider Encounter Details Date Type Department Care Team (Late Contact Info) Description 01/01/2000 Outpatient Historical [facility] Pediatrics - [facility] [address] [place] [address] [place] [address] [place] [address] Social History Tobacco Use Types Packs/Day Years Used Date Smoking Tobacco: Never Assessed Comments Unknown Sex and Gender Information Value Date Recorded Sex Assigned at Not on file Legal Sex Female 4:02 AM COMBINE DRIVER Gender Identity Not on file Sexual Orientation Not on file documented as of this encounter Plan of Treatment Upcoming Encounters Date Type Department Care Team (Late Contact Info) Description 06/26/2025 9:00 AM CDT Video Visit [facility] Adult Psychiatry [place] [address] [phone] Argelia Law NP [address] [address] 08/08/2025 7:30 AM COMBINE DRIVER Video Visit [facility] Adult Psychiatry [place] [address] [address] [place] [address] Argelia Law NP 1420 [facility] [address] [place] [address] 09/25/2025 8:00 AM COMBINE DRIVER Office Visit [facility] Primary Care - Kirby Herrmann [address] [address] [address] Kassy Jay MD [address] [place] [address] [address] documented as of this encounter Visit Diagnoses Not on filedocumented in this encounter Additional Health Concerns Infection Onset Date Last Indicated Resolved Time R/O COVID-19 06/02/2021 06/03/2021 06/03/2021 7:34 PM CDT R/O COVID-19 12/22/2022 12/22/2022 12/22/2022 12:2 5 PM CDT R/O COVID-19 09/07/2023 09/07/2023 09/07/2023 9:52 PM COMBINE DRIVER documented as of this encounter Care Teams Machine Hostler Relationship Specialty Start Date End Date Kassy Jay MD [address] [place] [address] [address] PCP - General Family Practice 12/04/22 documented as of this encounter
--- OUTSIDE RECORDS SUMMARY | 2025-06-14 18:22 | XMS_ITS | Encounter Summary ---
Author Organization [facility] Address [address] [place] [address] Care Team Providers Care Conveyor Technician Name Role Phone Kassy Jay MD Primary Care Provider [phone] Encounter Details Date Type Department Care Team (Late Contact Info) Description 07/21/2005 Outpatient Historical [facility] Pediatrics - [facility] [address] [facility] [address] [facility] [address] [place] [address] [place] [address] [place] [address] Social History Tobacco Use Types Packs/Day Years Used Date Smoking Tobacco: Never Assessed Comments Unknown Sex and Gender Information Value Date Recorded Sex Assigned at Not on file Legal Sex Female 4:02 AM COMMUNITY ADMINISTRATOR Gender Identity Not on file Sexual Orientation Not on file documented as of this encounter Plan of Treatment Upcoming Encounters Date Type Department Care Team (Late Contact Info) Description 06/26/2025 9:00 AM CDT Video Visit [facility] Adult Psychiatry [place] [address] [place] [address] [address] Argelia Law NP [address] [place] [address] [address] 08/08/2025 7:30 AM COMMUNITY ADMINISTRATOR Video Visit [facility] Adult Psychiatry [place] [address] [address] [place] [address] [address] Argelia Law NP 1420 [facility] [address] [address] 09/25/2025 8:00 AM COMMUNITY ADMINISTRATOR Office Visit [facility] Primary Care - Kirby Herrmann [address] [place] [address] [address] Kassy Jay MD [address] [place] [address] [address] documented as of this encounter Visit Diagnoses Not on filedocumented in this encounter Additional Health Concerns Infection Onset Date Last Indicated Resolved Time R/O COVID-19 06/02/2021 06/03/2021 06/03/2021 7:34 PM CDT R/O COVID-19 12/22/2022 12/22/2022 12/22/2022 12:2 5 PM CDT R/O COVID-19 09/07/2023 09/07/2023 09/07/2023 9:52 PM COMMUNITY ADMINISTRATOR documented as of this encounter Care Teams Conveyor Technician Relationship Specialty Start Date End Date Kassy Jay MD [address] [place] [address] [phone] PCP - General Family Practice 12/04/22 documented as of this encounter
--- OUTSIDE RECORDS SUMMARY | 2025-06-14 18:22 | XMS_ITS | Encounter Summary ---
Author Organization [facility] Address [address] [place] [address] Care Team Providers Care Data Designer Name Role Phone Kassy Jay MD Primary Care Provider [phone] Encounter Details Date Type Department Care Team ([facility] [address] [facility] Contact Info) Description 1998 Outpatient [address] [facility] MAURICIO Tabor, Darren Ruiz MD NO ADDRESS ON FILE Social History Tobacco Use Types Packs/Day Years Used Date Smoking Tobacco: Never Assessed Comments Unknown Sex and Gender Information Value Date Recorded Sex Assigned at Not on file Legal Sex Female 4:02 AM B AND B GANG WORKER Gender Identity Not on file Sexual Orientation Not on file documented as of this encounter Plan of Treatment Upcoming Encounters Date Type Department Care Team ([facility] [address] Contact Info) Description 06/26/2025 9:00 AM CDT Video Visit [facility] Adult Psychiatry [address] [place] [address] Argelia Law NP [address] [place], [place] [address] [place] [address] 08/08/2025 7:30 AM B AND B GANG WORKER Video Visit [facility] Adult Psychiatry [address] [place] [address] Argelia Law NP [address] [place] [address] [place] [address] 09/25/2025 8:00 AM B AND B GANG WORKER Office Visit [facility] Primary Care - Kirby Herrmann [address] [place] [address] [address] Kassy Jay MD [address] [place] [address] [phone] documented as of this encounter Visit Diagnoses Not on filedocumented in this encounter Additional Health Concerns Infection Onset Date Last Indicated Resolved Time R/O COVID-19 06/02/2021 06/03/2021 06/03/2021 7:34 PM CDT R/O COVID-19 12/22/2022 12/22/2022 12/22/2022 12:2 5 PM CDT R/O COVID-19 09/07/2023 09/07/2023 09/07/2023 9:52 PM B AND B GANG WORKER documented as of this encounter Care Teams Data Designer Relationship Specialty Start Date End Date Kassy Jay MD [address] [place] [phone] PCP - General Family Practice 12/04/22 documented as of this encounter
--- OUTSIDE RECORDS SUMMARY | 2025-06-14 18:22 | XMS_ITS | Encounter Summary ---
Author Organization [facility] Address [address] [place] [address] Care Team Providers Care Pecan Grower Name Role Phone Kassy Jay MD Primary Care Provider [phone] Encounter Details Date Type Department Care Team ([facility] Contact Info) Description 07/29/2005 Outpatient Historical [facility] Pediatrics - [facility] [address] [place] [address] [place] [address] [facility] [address] [place] [address] Social History Tobacco Use Types Packs/Day Years Used Date Smoking Tobacco: Never Assessed Comments Unknown Sex and Gender Information Value Date Recorded Sex Assigned at Not on file Legal Sex Female 4:02 AM BINGO CHECKER Gender Identity Not on file Sexual Orientation Not on file documented as of this encounter Last Filed Vital Signs Vital Sign Reading Time Taken Comments Blood Pressure - - Pulse 64 07/29/2005 3:45 PM BINGO CHECKER Temperature 37.1 C (98.7 F) 07/29/2005 3:45 PM BINGO CHECKER Respiratory Rate 32 07/29/2005 3:45 PM BINGO CHECKER Oxygen Saturation - - Inhaled Oxygen Concentration - - Weight 25.2 kg (55 lb 8 oz) 07/29/2005 3:[address] Height - - Body Mass Index - - documented in this encounter Plan of Treatment Upcoming Encounters Date Type Department Care Team (Late Contact Info) Description 06/26/2025 9:00 AM CDT Video Visit [facility] Adult Psychiatry [place] [address] [address] [place] [address] Argelia Law, [place] [address] [address] [place] [address] 08/08/2025 7:30 AM BINGO CHECKER Video Visit [facility] Adult Psychiatry [place] [address] [address] [place] [address] Argelia Law NP [address] [address] [place] [address] 09/25/2025 8:00 AM BINGO CHECKER Office Visit [facility] Primary Care - Kirby Herrmann [address] [place] [address] Kassy Jay MD [address] [place] [address] [address] documented as of this encounter Visit Diagnoses Not on filedocumented in this encounter Additional Health Concerns Infection Onset Date Last Indicated Resolved Time R/O COVID-19 06/02/2021 06/03/2021 06/03/2021 7:34 PM CDT R/O COVID-19 12/22/2022 12/22/2022 12/22/2022 12:2 5 PM CDT R/O COVID-19 09/07/2023 09/07/2023 09/07/2023 9:52 PM BINGO CHECKER documented as of this encounter Care Teams Pecan Grower Relationship Specialty Start Date End Date Kassy Jay MD [address] [place] [phone] PCP - General Family Practice 12/04/22 documented as of this encounter
--- OUTSIDE RECORDS SUMMARY | 2025-06-14 18:22 | XMS_ITS | Encounter Summary ---
Author Organization [facility] Address [address] [place] [address] Care Team Providers Care Nurses' Registry Director Name Role Phone Kassy Jay MD Primary Care Provider [phone] Encounter Details Date Type Department Care Team (Late Contact Info) Description 1998 Outpatient Historical [facility] Pediatrics - [facility] [address] [address] [facility] [address] [place] [address] Darren Tabor MD NO ADDRESS ON FILE Social History Tobacco Use Types Packs/Day Years Used Date Smoking Tobacco: Never Assessed Comments Unknown Sex and Gender Information Value Date Recorded Sex Assigned at Not on file Legal Sex Female 4:02 AM PERFORATOR LOADER Gender Identity Not on file Sexual Orientation Not on file documented as of this encounter Plan of Treatment Upcoming Encounters Date Type Department Care Team (Late Contact Info) Description 06/26/2025 9:00 AM CDT Video Visit [facility] Adult Psychiatry [address] [address] Argelia Law NP [address] [place] [address] 08/08/2025 7:30 AM PERFORATOR LOADER Video Visit [facility] Adult Psychiatry [address] [address] Argelia Law NP [address] [place] [address] [place] [address] 09/25/2025 8:00 AM PERFORATOR LOADER Office Visit [facility] Primary Care - Kirby Herrmann [address] [place] [address] Kassy Jay MD [address] [phone] documented as of this encounter Visit Diagnoses Not on filedocumented in this encounter Additional Health Concerns Infection Onset Date Last Indicated Resolved Time R/O COVID-19 06/02/2021 06/03/2021 06/03/2021 7:34 PM CDT R/O COVID-19 12/22/2022 12/22/2022 12/22/2022 12:2 5 PM CDT R/O COVID-19 09/07/2023 09/07/2023 09/07/2023 9:52 PM PERFORATOR LOADER documented as of this encounter Care Teams Nurses' Registry Director Relationship Specialty Start Date End Date Kassy Jay MD [address] [phone] PCP - General Family Practice 12/04/22 documented as of this encounter
--- OUTSIDE RECORDS SUMMARY | 2025-06-14 18:22 | XMS_ITS | Encounter Summary ---
Author Organization [facility] Address [address] [place] [address] Care Team Providers Care Turf Keeper Name Role Phone Kassy Jay MD Primary Care Provider [phone] Encounter Details Date Type Department Care Team (Late st Contact Info) Description 01/21/2006 Orders Only [facility] Pediatrics - [facility] [address] [facility] [facility] [address] [place] [address] [place] [address] [facility] [address] [place] [address] Social History Tobacco Use Types Packs/Day Years Used Date Smoking Tobacco: Never Assessed Comments Unknown Sex and Gender Information Value Date Recorded Sex Assigned at Not on file Legal Sex Female 4:02 AM CERTIFIED REAL ESTATE APPRAISER Gender Identity Not on file Sexual Orientation Not on file documented as of this encounter Progress Notes * Lacie Malik MD - 06/30/2008 3:28 AM CDT PATIENT'S AGE: 5 yrs, 10 mths, 3 wks, 5 days VITALS: TEMP: 102??f Oral PULSE: 92 Apical, Regular RESPIRATIONS: 23. WEIGHT: 62lbs NURSE NAME: Dianne Alvarez S ACCOMPANIED BY: Mother. HISTORY PROVIDED BY: Mother. ALLERGIES: Allergies are as listed. MEDICATIONS: Tylenol CHIEF COMPLAINT: The child is here for evaluation of fever, sore throat. HISTORY: HPI: SORE THROAT: The sore throat began approximately 1 day ago. The patient has no symptoms of abdominal pain, the patient does not have a cough, has no symptoms of ear pain, the degree of the fever hasbeen up to 104, has no symptoms of headache, has no symptoms of loss of appetite, the patient does not have nasal congestion, has no symptoms of rash, the patient does not have any vomiting, has no symptoms of wheezing. Therapies tried include Tylenol. PHYSICAL EXAM: CONSTITUTIONAL: GENERAL APPEARANCE: Healthy appearing, [...] the nose or sinuses is noted. ORAL: ERYTHEMA NOTED ON THE POSTERIOR PHARYNX. NECK: Supple. RESPIRATORY: Clear to auscultation. Normal respiratory effort. CARDIOVASCULAR: CARDIAC: Regular rhythm with no murmurs, rubs, gallops, or abnormal heart sounds. GASTROINTESTINAL: ABDOMEN: Soft, non-tender, without masses. Bowel sound active. LIVER/SPLEEN/KIDNEY: No hepatosplenomegaly. LYMPHATICS: MULTIPLE MOBILE, NON-TENDER, ENLARGED LYMPH NODES NOTED IN THE ANTERIOR CERVICAL CHAINSBILATERALLY. SKIN: INSPECTION: Good color, no rashes, birthmarks or lesions noted on arms, chest or abdomen. OFFICE PROCEDURE: RAPID STREP: The rapid strep test done in the office was POSITIVE. ASSESSMENT/PLAN: 034.0-STREPTOCOCCAL SORE THROAT MEDICATIONS: CEPHALEXIN ORAL SUSPENSION WHEN RECONSTITUTED 250 MG/5ML MILLILITERS, 5 cc po tid x 10 days, 150 Dispensed, status: NEW PRESCRIPTION, 01/21/2006. LAB ORDERS: Order number: [id number] Test Ordered: RAPID STREP [id number] RETURN VISIT/GUIDANCE: Instructed to:Take OTC meds as directed Call office if concerned or if child is no better Return if symptoms are not resolved. Electronically Signed by: Lacie Malik M.D. on Saturday, January 21, 2006 documented in this encounter Plan of Treatment Upcoming Encounters Date Type Department Care Team (Late st Contact Info) Description 06/26/2025 9:00 AM CDT Video Visit [facility] Adult Psychiatry [address] [address] [place] [address] Thanh, Argelia Lopez NP [address] [address] [place] [address] 08/08/2025 7:30 AM CERTIFIED REAL ESTATE APPRAISER Video Visit [facility] Adult Psychiatry [address] [address] [place] [address] Argelia Law NP [address] [address] [place] [address] 09/25/2025 8:00 AM CERTIFIED REAL ESTATE APPRAISER Office Visit [facility] Primary Care - Kirby Herrmann [address] [place] [address] Kassy Jay MD [address] [place] [address] [phone] documented as of this encounter Visit Diagnoses Not on filedocumented in this encounter Additional Health Concerns Infection Onset Date Last Indicated Resolved Time R/O COVID-19 06/02/2021 06/03/2021 06/03/2021 7:34 PM CDT R/O COVID-19 12/22/2022 12/22/2022 12/22/2022 12:2 5 PM CDT R/O COVID-19 09/07/2023 09/07/2023 09/07/2023 9:52 PM CERTIFIED REAL ESTATE APPRAISER documented as of this encounter Care Teams Turf Keeper Relationship Specialty Start Date End Date Kassy Jay MD [address] [place] [address] PCP - General Family Practice 12/04/22 documented as of this encounter
--- OUTSIDE RECORDS SUMMARY | 2025-06-14 18:22 | XMS_ITS | Encounter Summary ---
Author Organization [facility] Address [address] [place] [address] Care Team Providers Care Senior Staff Accountant Name Role Phone Kassy Jay MD Primary Care Provider [phone] Encounter Details Date Type Department Care Team (Late Contact Info) Description 06/30/2007 Outpatient Historical [facility] Pediatrics - [facility] [address] [facility] [address] [place] [address] [place] [address] [place] [address] Social History Tobacco Use Types Packs/Day Years Used Date Smoking Tobacco: Never Assessed Comments Unknown Sex and Gender Information Value Date Recorded Sex Assigned at Not on file Legal Sex Female 4:02 AM COPPER PLATE PRINTER Gender Identity Not on file Sexual Orientation Not on file documented as of this encounter Plan of Treatment Upcoming Encounters Date Type Department Care Team (Late Contact Info) Description 06/26/2025 9:00 AM CDT Video Visit [facility] Adult Psychiatry [place] [address] [address] Argelia Law NP [address] [address] 08/08/2025 7:30 AM COPPER PLATE PRINTER Video Visit [facility] Adult Psychiatry [place] [address] [place] [address] [place] [address] Argelia Law NP 1420 [facility] [address] [place] [address] 09/25/2025 8:00 AM COPPER PLATE PRINTER Office Visit [facility] Primary Care - Kirby Herr[place] [address] [place] [address] Kassy Jay MD [address] [place] [address] documented as of this encounter Visit Diagnoses Not on filedocumented in this encounter Additional Health Concerns Infection Onset Date Last Indicated Resolved Time R/O COVID-19 06/02/2021 06/03/2021 06/03/2021 7:34 PM CDT R/O COVID-19 12/22/2022 12/22/2022 12/22/2022 12:2 5 PM CDT R/O COVID-19 09/07/2023 09/07/2023 09/07/2023 9:52 PM COPPER PLATE PRINTER documented as of this encounter Care Teams Senior Staff Accountant Relationship Specialty Start Date End Date Kassy Jay MD [address] [place] [address] [address] PCP - General Family Practice 12/04/22 documented as of this encounter
--- OUTSIDE RECORDS SUMMARY | 2025-06-14 18:22 | XMS_ITS | Encounter Summary ---
Author Organization [facility] Address [address] [place] [address] Care Team Providers Care Director Education Name Role Phone Kassy Jay MD Primary Care Provider [phone] Encounter Details Date Type Department Care Team ([facility] Contact Info) Description 1998 Outpatient Historical [facility] MAURICIO Tabor, Darren Ruiz MD NO ADDRESS ON FILE Social History Tobacco Use Types Packs/Day Years Used Date Smoking Tobacco: Never Assessed Comments Unknown Sex and Gender Information Value Date Recorded Sex Assigned at Not on file Legal Sex Female 4:02 AM CIGAR MAKING SUPERVISOR Gender Identity Not on file Sexual Orientation Not on file documented as of this encounter Plan of Treatment Upcoming Encounters Date Type Department Care Team ([facility] Contact Info) Description 06/26/2025 9:00 AM CDT Video Visit [facility] Adult Psychiatry [address] [place] [address] Argelia Law NP [address] [place], [place] [address] [address] 08/08/2025 7:30 AM CIGAR MAKING SUPERVISOR Video Visit [facility] Adult Psychiatry [address] [place] [address] Argelia Law NP [address] [place] [address] [place] [address] 09/25/2025 8:00 AM CIGAR MAKING SUPERVISOR Office Visit [facility] Primary Care - Kirby Herrmann [address] [place] [address] Kassy Jay MD [address] [place] [phone] documented as of this encounter Visit Diagnoses Not on filedocumented in this encounter Additional Health Concerns Infection Onset Date Last Indicated Resolved Time R/O COVID-19 06/02/2021 06/03/2021 06/03/2021 7:34 PM CDT R/O COVID-19 12/22/2022 12/22/2022 12/22/2022 12:2 5 PM CDT R/O COVID-19 09/07/2023 09/07/2023 09/07/2023 9:52 PM CIGAR MAKING SUPERVISOR documented as of this encounter Care Teams Director Education Relationship Specialty Start Date End Date Kassy Jay MD [address] [place] [phone] PCP - General Family Practice 12/04/22 documented as of this encounter
--- OUTSIDE RECORDS SUMMARY | 2025-06-14 18:22 | XMS_ITS | Encounter Summary ---
Author Organization [facility] Address [address] [place] [address] Care Team Providers Care Supervisor Kosher Dietary Service Name Role Phone Kassy Jay MD Primary Care Provider [phone] Encounter Details Date Type Department Care Team (Late Contact Info) Description 1998 Outpatient Historical [facility] Pediatrics - [facility] [address] [address] [facility] [address] [place] [address] Darren Tabor MD NO ADDRESS ON FILE Social History Tobacco Use Types Packs/Day Years Used Date Smoking Tobacco: Never Assessed Comments Unknown Sex and Gender Information Value Date Recorded Sex Assigned at Not on file Legal Sex Female 4:02 AM ASSOCIATE PROFESSOR OF CRIMINAL JUSTICE Gender Identity Not on file Sexual Orientation Not on file documented as of this encounter Plan of Treatment Upcoming Encounters Date Type Department Care Team (Late Contact Info) Description 06/26/2025 9:00 AM CDT Video Visit [facility] Adult Psychiatry [address] [address] Argelia Law NP [address] [place] [address] 08/08/2025 7:30 AM ASSOCIATE PROFESSOR OF CRIMINAL JUSTICE Video Visit [facility] Adult Psychiatry [address] [address] Argelia Law NP [address] [place] [address] [place] [address] 09/25/2025 8:00 AM ASSOCIATE PROFESSOR OF CRIMINAL JUSTICE Office Visit [facility] Primary Care - Kirby Herrmann [address] [place] [address] [address] Kassy Jay MD [address] [place] [place] [place] [phone] documented as of this encounter Visit Diagnoses Not on filedocumented in this encounter Additional Health Concerns Infection Onset Date Last Indicated Resolved Time R/O COVID-19 06/02/2021 06/03/2021 06/03/2021 7:34 PM CDT R/O COVID-19 12/22/2022 12/22/2022 12/22/2022 12:2 5 PM CDT R/O COVID-19 09/07/2023 09/07/2023 09/07/2023 9:52 PM ASSOCIATE PROFESSOR OF CRIMINAL JUSTICE documented as of this encounter Care Teams Supervisor Kosher Dietary Service Relationship Specialty Start Date End Date Kassy Jay MD [address] [place] [phone] PCP - General Family Practice 12/04/22 documented as of this encounter
--- OUTSIDE RECORDS SUMMARY | 2025-06-14 18:22 | XMS_ITS | Encounter Summary ---
Author Organization [facility] Address [address] [place] [address] Care Team Providers Care Secretary Office Clerk Name Role Phone Kassy Jay MD Primary Care Provider [phone] Encounter Details Date Type Department Care Team (Late st Contact Info) Description 09/11/2006 Orders Only [facility] Pediatrics - [facility] [address] [facility] [address] [place] [address] [place] [address] [facility] [address] [place] [address] Social History Tobacco Use Types Packs/Day Years Used Date Smoking Tobacco: Never Assessed Comments Unknown Sex and Gender Information Value Date Recorded Sex Assigned at Not on file Legal Sex Female 4:02 AM STIFF STRAW HAT WASHER Gender Identity Not on file Sexual Orientation Not on file documented as of this encounter Progress Notes * Lacie Malik MD - 07/05/2008 4:31 AM CDT PATIENT'S AGE: 6 yrs, 6 mths, 2 wks, 1 day VITALS: TEMP: 98??f Oral PULSE: 88 Apical, Regular RESPIRATIONS: 20. WEIGHT: [id number] NURSE NAME: Jesusita Williamson L ACCOMPANIED BY: Father. ALLERGIES: CURRENT ALLERGY LIST: AUGMENTIN PEANUTS MEDICATIONS: otc CHIEF COMPLAINT: The child is here for evaluation of cough. HISTORY: HPI: URI: The upper respiratory symptoms began approximately 3 weeks ago. The patient has no symptoms ofchest congestion, the patient has a cough, the patient does not have ear pain, the patient does nothave a fever, no loss of appetite, the patient has nasal congestion, symptoms include post nasal drainage, no symptoms of shortness of breath, no symptoms of sore throat, the patient does not have any vomiting, no symptoms of wheezing. The symptoms have not changed intermittently. The patient is sally cough suppressant. PHYSICAL EXAM: CONSTITUTIONAL: GENERAL APPEARANCE: Healthy appearing, [...] pharynx. NECK: No lymphadenopathy noted. Supple. RESPIRATORY: HARSH BREATH SOUNDS BILATERALLY. CARDIOVASCULAR: CARDIAC: Regular rhythm with no murmurs, rubs, gallops, or abnormal heart sounds. GASTROINTESTINAL: ABDOMEN: Soft, non-tender, without masses. Bowel sound active. LIVER/SPLEEN/KIDNEY: No hepatosplenomegaly. SKIN: INSPECTION: Good color, no rashes, birthmarks or lesions noted on arms, chest or abdomen. ASSESSMENT/PLAN: 466.0-BRONCHITIS ACUTE MEDICATIONS: ZITHROMAX ORAL SUSPENSION WHEN RECONSTITUTED 200 MG/5ML MILLILITERS, 1 and 1/2 tsp po today, 3/4 tsp po daily x 4 days, 22.5 Dispensed, status: NEW PRESCRIPTION, 09/11/2006. RETURN VISIT/GUIDANCE: Instructed to:Take OTC meds as directed Call office if concerned or if child is no better Return if symptoms are not resolved. Electronically Signed by: Lacie Malik MD on Thursday, September 11, 2006 documented in this encounter Plan of Treatment Upcoming Encounters Date Type Department Care Team (Late st Contact Info) Description 06/26/2025 9:00 AM CDT Video Visit [facility] Adult Psychiatry [place] [address] [place] [address] [place] [address] Argelia Law, [place] [address] [place] [address] [address] [place] [address] 08/08/2025 7:30 AM STIFF STRAW HAT WASHER Video Visit [facility] Adult Psychiatry [place] [address] [address] [address] [place], [place] [address] Argelia Law NP [address] [place] [address] [address] [place], [place] [address] 09/25/2025 8:00 AM STIFF STRAW HAT WASHER Office Visit [facility] Primary Care - Kirby Herrmann [address] [place] [address] [address] Kassy Jay MD [address] [place] [phone] documented as of this encounter Visit Diagnoses Not on filedocumented in this encounter Additional Health Concerns Infection Onset Date Last Indicated Resolved Time R/O COVID-19 06/02/2021 06/03/2021 06/03/2021 7:34 PM CDT R/O COVID-19 12/22/2022 12/22/2022 12/22/2022 12:2 5 PM CDT R/O COVID-19 09/07/2023 09/07/2023 09/07/2023 9:52 PM STIFF STRAW HAT WASHER documented as of this encounter Care Teams Secretary Office Clerk Relationship Specialty Start Date End Date Kassy Jay MD [address] [place] [phone] PCP - General Family Practice 12/04/22 documented as of this encounter
--- OUTSIDE RECORDS SUMMARY | 2025-06-14 18:22 | XMS_ITS | Encounter Summary ---
Author Organization [facility] Address [address] [place] [address] Care Team Providers Care Train System Operator Name Role Phone Kassy Jay MD Primary Care Provider [phone] Encounter Details Date Type Department Care Team (Late st Contact Info) Description 05/16/2006 Orders Only [facility] Pediatrics - [facility] [address] [facility] [address] [place] [address] [place] [address] [facility] [address] [place] [address] Social History Tobacco Use Types Packs/Day Years Used Date Smoking Tobacco: Never Assessed Comments Unknown Sex and Gender Information Value Date Recorded Sex Assigned at Not on file Legal Sex Female 4:02 AM IMITATION MARBLE MECHANIC Gender Identity Not on file Sexual Orientation Not on file documented as of this encounter Progress Notes * Lacie Malik MD - 06/29/2008 11:38 PM CDT PATIENT'S AGE: 6 yrs, 2 mths, 2 wks, 5 days VITALS: TEMP: 98.4??f Oral PULSE: 96 Apical, Regular RESPIRATIONS: 28. WEIGHT: 65lbs NURSE NAME: Polly Vides A ACCOMPANIED BY: Father. ALLERGIES: CURRENT ALLERGY LIST: AUGMENTIN MEDICATIONS: pulmonary rx CHIEF COMPLAINT: The child is here for evaluation of sore throat, vomiting. HISTORY: HPI: SORE THROAT: The sore throat began approximately 2 days ago. The patient has no symptoms of chest congestion, the patient has a cough, the patient does not have diarrhea, has no symptoms of ear pain,the patient does not have a fever, has no symptoms of hoarseness, has symptoms of loss of appetite,the patient does not have nasal congestion, has no symptoms of rash, has no symptoms of shortness of breath, the patient has vomiting, has no symptoms of wheezing. The symptoms have been worsening. No therapies have been tried. PHYSICAL EXAM: CONSTITUTIONAL: GENERAL APPEARANCE: Healthy appearing, [...] the nose or sinuses is noted. ORAL: PETECHIAE NOTED ON THE PALATE, ERYTHEMA NOTED ON THE POSTERIOR PHARYNX. NECK: No lymphadenopathy noted. Supple. RESPIRATORY: Clear [...] strep test done in the office was negative. ASSESSMENT/PLAN: 462-PHARYNGITIS MEDICATIONS: CEPHALEXIN ORAL SUSPENSION WHEN RECONSTITUTED 250 MG/5ML MILLILITERS, 5 cc po tid x 10 days, 150 Dispensed, status: NEW PRESCRIPTION, 05/16/2006. LAB ORDERS: Order number: [id number] Test Ordered: STREPTOCOCCUS, GROUP A CULTURE 4485 Order number: [id number] Test Ordered: RAPID STREP [id number] RETURN VISIT/GUIDANCE: Instructed to:Take OTC meds as directed Call office if concerned or if child is no better Return if symptoms are not resolved. Call thursday for results Electronically Signed by: Lacie Malik M.D. on Tuesday, May 16, 2006 documented in this encounter Plan of Treatment Upcoming Encounters Date Type Department Care Team (Late st Contact Info) Description 06/26/2025 9:00 AM CDT Video Visit [facility] Adult Psychiatry [place] [address] [address] [place] [address] Thanh, Argelia Lopez NP [address] [place] [address] [place] [address] 08/08/2025 7:30 AM IMITATION MARBLE MECHANIC Video Visit [facility] Adult Psychiatry [address] [place] [address] Thanh, Argelia Lopez NP [address] [place] [address] [place] [address] 09/25/2025 8:00 AM IMITATION MARBLE MECHANIC Office Visit [facility] Primary Care - Kirby Herrmann [address] [place] [address] [address] Kassy Jay MD [address] [place] [address] documented as of this encounter Visit Diagnoses Not on filedocumented in this encounter Additional Health Concerns Infection Onset Date Last Indicated Resolved Time R/O COVID-19 06/02/2021 06/03/2021 06/03/2021 7:34 PM CDT R/O COVID-19 12/22/2022 12/22/2022 12/22/2022 12:2 5 PM CDT R/O COVID-19 09/07/2023 09/07/2023 09/07/2023 9:52 PM IMITATION MARBLE MECHANIC documented as of this encounter Care Teams Train System Operator Relationship Specialty Start Date End Date Kassy Jay MD [address] [address] PCP - General Family Practice 12/04/22 documented as of this encounter
--- OUTSIDE RECORDS SUMMARY | 2025-06-14 18:22 | XMS_ITS | Encounter Summary ---
Author Organization [facility] Address [address] [place] [address] Care Team Providers Care Signal Repairer Name Role Phone Kassy Jay MD Primary Care Provider [phone] Encounter Details Date Type Department Care Team (Late Contact Info) Description 10/14/1999 Outpatient Historical [facility] Pediatrics - [facility] [address] [facility] [address] [place] [address] [place] [address] [facility] [facility] [facility] [address] [place] [address] Social History Tobacco Use Types Packs/Day Years Used Date Smoking Tobacco: Never Assessed Comments Unknown Sex and Gender Information Value Date Recorded Sex Assigned at Not on file Legal Sex Female 4:02 AM BOTTOM SANDER Gender Identity Not on file Sexual Orientation Not on file documented as of this encounter Plan of Treatment Upcoming Encounters Date Type Department Care Team (Late Contact Info) Description 06/26/2025 9:00 AM CDT Video Visit [facility] Adult Psychiatry [place] [address] [address] Agrelia Law NP [address] [address] 08/08/2025 7:30 AM BOTTOM SANDER Video Visit [facility] Adult Psychiatry [place] [address] [place] [address] [place] [address] Argelia Law NP 1420 [facility] [address] [place] [address] 09/25/2025 8:00 AM BOTTOM SANDER Office Visit [facility] Primary Care - Kirby Herrmann [address] [place] [address] Kassy Jay MD [address] [place] [address] documented as of this encounter Visit Diagnoses Not on filedocumented in this encounter Additional Health Concerns Infection Onset Date Last Indicated Resolved Time R/O COVID-19 06/02/2021 06/03/2021 06/03/2021 7:34 PM CDT R/O COVID-19 12/22/2022 12/22/2022 12/22/2022 12:2 5 PM CDT R/O COVID-19 09/07/2023 09/07/2023 09/07/2023 9:52 PM BOTTOM SANDER documented as of this encounter Care Teams Signal Repairer Relationship Specialty Start Date End Date Kassy Jay MD [address] [place] [address] [address] PCP - General Family Practice 12/04/22 documented as of this encounter
--- OUTSIDE RECORDS SUMMARY | 2025-06-14 18:22 | XMS_ITS | Encounter Summary ---
Author Organization [facility] Address [address] [place] [address] Care Team Providers Care Petroleum Products Sales Representative Name Role Phone Kassy Jay MD Primary Care Provider [phone] Encounter Details Date Type Department Care Team (Late Contact Info) Description 02/24/2001 Outpatient Historical [facility] Pediatrics - [facility] [address] [facility] [address] [place] [address] [place] [address] [facility] [address] [place] [address] Social History Tobacco Use Types Packs/Day Years Used Date Smoking Tobacco: Never Assessed Comments Unknown Sex and Gender Information Value Date Recorded Sex Assigned at Not on file Legal Sex Female 4:02 AM CLAIM PROCESSOR Gender Identity Not on file Sexual Orientation Not on file documented as of this encounter Plan of Treatment Upcoming Encounters Date Type Department Care Team (Late Contact Info) Description 06/26/2025 9:00 AM CDT Video Visit [facility] Adult Psychiatry [place] [address] [address] Argelai Law NP [address] [address] 08/08/2025 7:30 AM CLAIM PROCESSOR Video Visit [facility] Adult Psychiatry [place] [address] [place] [address] [address] [place] [address] Argelia Law NP 1420 [facility] [address] [place] [address] 09/25/2025 8:00 AM CLAIM PROCESSOR Office Visit [facility] Primary Care - Kirby Herrmann [address] [place] [address] Kassy Jay MD [address] [place] [address] [address] documented as of this encounter Visit Diagnoses Not on filedocumented in this encounter Additional Health Concerns Infection Onset Date Last Indicated Resolved Time R/O COVID-19 06/02/2021 06/03/2021 06/03/2021 7:34 PM CDT R/O COVID-19 12/22/2022 12/22/2022 12/22/2022 12:2 5 PM CDT R/O COVID-19 09/07/2023 09/07/2023 09/07/2023 9:52 PM CLAIM PROCESSOR documented as of this encounter Care Teams Petroleum Products Sales Representative Relationship Specialty Start Date End Date Kassy Jay MD [address] [place] [address] [address] PCP - General Family Practice 12/04/22 documented as of this encounter
--- OUTSIDE RECORDS SUMMARY | 2025-06-14 18:22 | XMS_ITS | Encounter Summary ---
Author Organization [facility] Address [address] [place] [address] Care Team Providers Care Business Strategist Name Role Phone Kassy Jay MD Primary Care Provider [phone] Encounter Details Date Type Department Care Team (Late Contact Info) Description 04/06/1999 Outpatient Historical [facility] Pediatrics - [facility] [address] [facility] [address] [place] [address] Darren Tabor MD NO ADDRESS ON FILE Social History Tobacco Use Types Packs/Day Years Used Date Smoking Tobacco: Never Assessed Comments Unknown Sex and Gender Information Value Date Recorded Sex Assigned at Not on file Legal Sex Female 4:02 AM FLAGMAN Gender Identity Not on file Sexual Orientation Not on file documented as of this encounter Plan of Treatment Upcoming Encounters Date Type Department Care Team (Late Contact Info) Description 06/26/2025 9:00 AM CDT Video Visit [facility] Adult Psychiatry [address] [address] Argelia Law NP [address] [place] [address] 08/08/2025 7:30 AM FLAGMAN Video Visit [facility] Adult Psychiatry [address] [address] Argelia Law NP [address] [place] [address] [place] [address] 09/25/2025 8:00 AM FLAGMAN Office Visit [facility] Primary Care - Kirby Herrmann [address] [place] [address] Kassy Jay MD [address] [place] [phone] documented as of this encounter Visit Diagnoses Not on filedocumented in this encounter Additional Health Concerns Infection Onset Date Last Indicated Resolved Time R/O COVID-19 06/02/2021 06/03/2021 06/03/2021 7:34 PM CDT R/O COVID-19 12/22/2022 12/22/2022 12/22/2022 12:2 5 PM CDT R/O COVID-19 09/07/2023 09/07/2023 09/07/2023 9:52 PM FLAGMAN documented as of this encounter Care Teams Business Strategist Relationship Specialty Start Date End Date Kassy Jay MD [address] [place] [phone] PCP - General Family Practice 12/04/22 documented as of this encounter
--- OUTSIDE RECORDS SUMMARY | 2025-06-14 18:22 | XMS_ITS | Encounter Summary ---
Author Organization [facility] Address [address] [place] [address] Care Team Providers Care Agricultural Real Estate Agent Name Role Phone Kassy Jay MD Primary Care Provider [phone] Encounter Details Date Type Department Care Team (Late Contact Info) Description 1998 Outpatient Historical [facility] Pediatrics - [facility] [address] [facility] [address] [place] [address] [place] [address] [facility] [place] [address] Social History Tobacco Use Types Packs/Day Years Used Date Smoking Tobacco: Never Assessed Comments Unknown Sex and Gender Information Value Date Recorded Sex Assigned at Not on file Legal Sex Female 4:02 AM PULPER OPERATOR Gender Identity Not on file Sexual Orientation Not on file documented as of this encounter Plan of Treatment Upcoming Encounters Date Type Department Care Team (Late Contact Info) Description 06/26/2025 9:00 AM CDT Video Visit [facility] Adult Psychiatry [place] [address] [address] Argelia Law NP [address] [address] 08/08/2025 7:30 AM PULPER OPERATOR Video Visit [facility] Adult Psychiatry [place] [address] [place] [address] [address] [place] [address] Argelia Law NP 1420 [facility] [address] [place] [address] 09/25/2025 8:00 AM PULPER OPERATOR Office Visit [facility] Primary Care - Kirby Herrmann [address] [place] [address] [address] Kassy Jay MD [address] [place] [address] documented as of this encounter Visit Diagnoses Not on filedocumented in this encounter Additional Health Concerns Infection Onset Date Last Indicated Resolved Time R/O COVID-19 06/02/2021 06/03/2021 06/03/2021 7:34 PM CDT R/O COVID-19 12/22/2022 12/22/2022 12/22/2022 12:2 5 PM CDT R/O COVID-19 09/07/2023 09/07/2023 09/07/2023 9:52 PM PULPER OPERATOR documented as of this encounter Care Teams Agricultural Real Estate Agent Relationship Specialty Start Date End Date Kassy Jay MD [address] [place] [address] [address] PCP - General Family Practice 12/04/22 documented as of this encounter
--- OUTSIDE RECORDS SUMMARY | 2025-06-14 18:22 | XMS_ITS | Encounter Summary ---
Author Organization [facility] Address [address] [place] [address] Care Team Providers Care Account Receivable Associate Name Role Phone Kassy Jay MD Primary Care Provider [phone] Encounter Details Date Type Department Care Team (Late Contact Info) Description 06/30/2007 Outpatient Historical [facility] Pediatrics - [facility] [address] [place] [address] [place] [address] [address] [place] [address] Social History Tobacco Use Types Packs/Day Years Used Date Smoking Tobacco: Never Assessed Comments Unknown Sex and Gender Information Value Date Recorded Sex Assigned at Not on file Legal Sex Female 4:02 AM PATIENT ACCOUNTS COORDINATOR Gender Identity Not on file Sexual Orientation Not on file documented as of this encounter Plan of Treatment Upcoming Encounters Date Type Department Care Team (Late Contact Info) Description 06/26/2025 9:00 AM CDT Video Visit [facility] Adult Psychiatry [place] [address] [address] Argelia Law NP [address] [address] 08/08/2025 7:30 AM PATIENT ACCOUNTS COORDINATOR Video Visit [facility] Adult Psychiatry [place] [address] [address] [place] [address] Argelia Law NP 1420 [facility] [address] [place] [address] 09/25/2025 8:00 AM PATIENT ACCOUNTS COORDINATOR Office Visit [facility] Primary Care - Kirby Herr[place] [address] [place] [address] Kassy Jay MD [address] [place] [phone] documented as of this encounter Visit Diagnoses Not on filedocumented in this encounter Additional Health Concerns Infection Onset Date Last Indicated Resolved Time R/O COVID-19 06/02/2021 06/03/2021 06/03/2021 7:34 PM CDT R/O COVID-19 12/22/2022 12/22/2022 12/22/2022 12:2 5 PM CDT R/O COVID-19 09/07/2023 09/07/2023 09/07/2023 9:52 PM PATIENT ACCOUNTS COORDINATOR documented as of this encounter Care Teams Account Receivable Associate Relationship Specialty Start Date End Date Kassy Jay MD [address] [place] [address] [address] PCP - General Family Practice 12/04/22 documented as of this encounter
--- OUTSIDE RECORDS SUMMARY | 2025-06-14 18:22 | XMS_ITS | Encounter Summary ---
Author Organization [facility] Address [address] [place] [address] Care Team Providers Care Driver Trainee Name Role Phone Kassy Jay MD Primary Care Provider [phone] Encounter Details Date Type Department Care Team (Late Contact Info) Description 05/16/2006 Outpatient Historical [facility] Pediatrics - [facility] [address] [facility] [facility] [address] [place] [address] [place] [address] [place] [address] Social History Tobacco Use Types Packs/Day Years Used Date Smoking Tobacco: Never Assessed Comments Unknown Sex and Gender Information Value Date Recorded Sex Assigned at Not on file Legal Sex Female 4:02 AM PULVERIZER Gender Identity Not on file Sexual Orientation Not on file documented as of this encounter Plan of Treatment Upcoming Encounters Date Type Department Care Team (Late Contact Info) Description 06/26/2025 9:00 AM CDT Video Visit [facility] Adult Psychiatry [place] [address] [address] Argelia Law NP [address] [address] 08/08/2025 7:30 AM PULVERIZER Video Visit [facility] Adult Psychiatry [place] [address] [address] [place] [address] Argelia Law NP 1420 [facility] [address] [place] [address] 09/25/2025 8:00 AM PULVERIZER Office Visit [facility] Primary Care - Kirby Herrmann [address] [place] [address] Kassy Jay MD [address] [place] [address] documented as of this encounter Visit Diagnoses Not on filedocumented in this encounter Additional Health Concerns Infection Onset Date Last Indicated Resolved Time R/O COVID-19 06/02/2021 06/03/2021 06/03/2021 7:34 PM CDT R/O COVID-19 12/22/2022 12/22/2022 12/22/2022 12:2 5 PM CDT R/O COVID-19 09/07/2023 09/07/2023 09/07/2023 9:52 PM PULVERIZER documented as of this encounter Care Teams Driver Trainee Relationship Specialty Start Date End Date Kassy Jay MD [address] [place] [address] [address] PCP - General Family Practice 12/04/22 documented as of this encounter
--- OUTSIDE RECORDS SUMMARY | 2025-06-14 18:22 | XMS_ITS | Encounter Summary ---
Author Organization [facility] Address [address] [place] [address] Care Team Providers Care Lna Name Role Phone Kassy Jay MD Primary Care Provider [phone] Encounter Details Date Type Department Care Team (Latest Contact Info) Description 09/04/2005 Outpatient Historical [facility] Gustavo Sims EXTRINSIC ASTHMA UNSPECIFIED (Primary Dx) Social History Tobacco Use Types Packs/Day Years Used Date Smoking Tobacco: Never Assessed Comments Unknown Sex and Gender Information Value Date Recorded Sex Assigned at Not on file Legal Sex Female 4:02 AM WELL DRILL OPERATOR HELPER CABLE TOOL Gender Identity Not on file Sexual Orientation Not on file documented as of this encounter Plan of Treatment Upcoming Encounters Date Type Department Care Team (Late st Contact Info) Description 06/26/2025 9:00 AM CDT Video Visit [facility] Adult [place]iat[place] [address] [place] [address] Argelia Law NP [address] [place], [place] [address] [place] [address] 08/08/2025 7:30 AM WELL DRILL OPERATOR HELPER CABLE TOOL Video Visit [facility] Adult Psychiatry [address] [address] Argelia Law NP [address] [place], [place] [address] [place] [address] 09/25/2025 8:00 AM WELL DRILL OPERATOR HELPER CABLE TOOL Office Visit [facility] Primary Care - Kirby Herrmann [address] [place] [address] Kassy Jay MD [address] [place] [address] [place] [phone] documented as of this encounter Visit Diagnoses Diagnosis Extrinsic asthma, unspecified- Primary documented in this encounter Additional Health Concerns Infection Onset Date Last Indicated Resolved Time R/O COVID-19 06/02/2021 06/03/2021 06/03/2021 7:34 PM CDT R/O COVID-19 12/22/2022 12/22/2022 12/22/2022 12:2 5 PM CDT R/O COVID-19 09/07/2023 09/07/2023 09/07/2023 9:52 PM WELL DRILL OPERATOR HELPER CABLE TOOL documented as of this encounter Care Teams Lna Relationship Specialty Start Date End Date Kassy Jay MD [address] [place] [address] PCP - General Family Practice 12/04/22 documented as of this encounter
--- OUTSIDE RECORDS SUMMARY | 2025-06-14 18:22 | XMS_ITS | Encounter Summary ---
Author Organization [facility] Address [address] [place] [address] Care Team Providers Care Staff Command And Control Officer Name Role Phone Kassy Jay MD Primary Care Provider [phone] Encounter Details Date Type Department Care Team (Late Contact Info) Description 03/02/2000 Outpatient Historical [facility] Pediatrics - [facility] [address] [place] [address] [place] [address] [place] [address] Social History Tobacco Use Types Packs/Day Years Used Date Smoking Tobacco: Never Assessed Comments Unknown Sex and Gender Information Value Date Recorded Sex Assigned at Not on file Legal Sex Female 4:02 AM SUTURE POLISHER Gender Identity Not on file Sexual Orientation Not on file documented as of this encounter Plan of Treatment Upcoming Encounters Date Type Department Care Team (Late Contact Info) Description 06/26/2025 9:00 AM CDT Video Visit [facility] Adult Psychiatry [place] [address] [phone] Argelia Law NP [address] [address] 08/08/2025 7:30 AM SUTURE POLISHER Video Visit [facility] Adult Psychiatry [place] [address] [address] [place] [address] Argelia Law NP 1420 [facility] [address] [place] [address] 09/25/2025 8:00 AM SUTURE POLISHER Office Visit [facility] Primary Care - Kirby Herrmann [address] [place] [address] Kassy Jay MD [address] [place] [phone] documented as of this encounter Visit Diagnoses Not on filedocumented in this encounter Additional Health Concerns Infection Onset Date Last Indicated Resolved Time R/O COVID-19 06/02/2021 06/03/2021 06/03/2021 7:34 PM CDT R/O COVID-19 12/22/2022 12/22/2022 12/22/2022 12:2 5 PM CDT R/O COVID-19 09/07/2023 09/07/2023 09/07/2023 9:52 PM SUTURE POLISHER documented as of this encounter Care Teams Staff Command And Control Officer Relationship Specialty Start Date End Date Kassy Jay MD [address] [place] [address] PCP - General Family Practice 12/04/22 documented as of this encounter
--- OUTSIDE RECORDS SUMMARY | 2025-06-14 18:22 | XMS_ITS | Encounter Summary ---
Author Organization [facility] Address [address] [place] [address] Care Team Providers Care Compliance Paralegal Name Role Phone Kassy Jay MD Primary Care Provider [phone] Encounter Details Date Type Department Care Team (Late Contact Info) Description 1998 Outpatient Historical [facility] Pediatrics - [facility] [address] [address] [facility] [address] [place] [address] Darren Tabor MD NO ADDRESS ON FILE Social History Tobacco Use Types Packs/Day Years Used Date Smoking Tobacco: Never Assessed Comments Unknown Sex and Gender Information Value Date Recorded Sex Assigned at Not on file Legal Sex Female 4:02 AM LIQUOR INSPECTOR Gender Identity Not on file Sexual Orientation Not on file documented as of this encounter Plan of Treatment Upcoming Encounters Date Type Department Care Team (Late Contact Info) Description 06/26/2025 9:00 AM CDT Video Visit [facility] Adult Psychiatry [address] [address] Argelia Law NP [address] [place] [address] 08/08/2025 7:30 AM LIQUOR INSPECTOR Video Visit [facility] Adult Psychiatry [address] [address] Argelia Law NP [address] [place] [address] [address] [place] [address] 09/25/2025 8:00 AM LIQUOR INSPECTOR Office Visit [facility] Primary Care - Kirby Herrmann [address] [place] [address] Kassy Jay MD [address] [place] [phone] documented as of this encounter Visit Diagnoses Not on filedocumented in this encounter Additional Health Concerns Infection Onset Date Last Indicated Resolved Time R/O COVID-19 06/02/2021 06/03/2021 06/03/2021 7:34 PM CDT R/O COVID-19 12/22/2022 12/22/2022 12/22/2022 12:2 5 PM CDT R/O COVID-19 09/07/2023 09/07/2023 09/07/2023 9:52 PM LIQUOR INSPECTOR documented as of this encounter Care Teams Compliance Paralegal Relationship Specialty Start Date End Date Kassy Jay MD [address] [place] [phone] PCP - General Family Practice 12/04/22 documented as of this encounter
--- OUTSIDE RECORDS SUMMARY | 2025-06-14 18:22 | XMS_ITS | Encounter Summary ---
Author Organization [facility] Address [address] [place] [address] Care Team Providers Care Loan Officer Name Role Phone Kassy Jay MD Primary Care Provider Encounter Details Date Type Department Care Team (Late Contact Info) Description 07/18/2005 Outpatient Historical [facility] Pediatrics - [facility] [address] [facility] [address] [facility] [address] [place] [address] [place] [address] [place] [address] Social History Tobacco Use Types Packs/Day Years Used Date Smoking Tobacco: Never Assessed Comments Unknown Sex and Gender Information Value Date Recorded Sex Assigned at Not on file Legal Sex Female 4:02 AM AIRPLANE FLIGHT ATTENDANT Gender Identity Not on file Sexual Orientation Not on file documented as of this encounter Plan of Treatment Upcoming Encounters Date Type Department Care Team (Late Contact Info) Description 06/26/2025 9:00 AM CDT Video Visit [facility] Adult Psychiatry [place] [address] [address] Argelia Law NP [address] [address] 08/08/2025 7:30 AM AIRPLANE FLIGHT ATTENDANT Video Visit [facility] Adult Psychiatry [place] [address] [address] [place] [address] Argelia Law NP 1420 [facility] [address] [address] 09/25/2025 8:00 AM AIRPLANE FLIGHT ATTENDANT Office Visit [facility] Primary Care - Kirby Herrmann [address] [address] [address] [address] Kassy Jay MD [address] [place] [address] [address] documented as of this encounter Visit Diagnoses Not on filedocumented in this encounter Additional Health Concerns Infection Onset Date Last Indicated Resolved Time R/O COVID-19 06/02/2021 06/03/2021 06/03/2021 7:34 PM CDT R/O COVID-19 12/22/2022 12/22/2022 12/22/2022 12:2 5 PM CDT R/O COVID-19 09/07/2023 09/07/2023 09/07/2023 9:52 PM AIRPLANE FLIGHT ATTENDANT documented as of this encounter Care Teams Loan Officer Relationship Specialty Start Date End Date Kassy Jay MD [address] [place] [address] [phone] PCP - General Family Practice 12/04/22 documented as of this encounter
--- OUTSIDE RECORDS SUMMARY | 2025-06-14 18:22 | XMS_ITS | Encounter Summary ---
Author Organization [facility] Address [address] [place] [address] Care Team Providers Care Crate Tier Name Role Phone Kassy Jay MD Primary Care Provider [phone] Encounter Details Date Type Department Care Team ([facility] Contact Info) Description 05/21/2005 Outpatient Historical [facility] Pediatrics - [facility] [address] [address] [facility] [address] [place] [address] Garrett Mittal MD [address] [facility] [address] [place] [address] Social History Tobacco Use Types Packs/Day Years Used Date Smoking Tobacco: Never Assessed Comments Unknown Sex and Gender Information Value Date Recorded Sex Assigned at Not on file Legal Sex Female 4:02 AM KEG FILLER Gender Identity Not on file Sexual Orientation Not on file documented as of this encounter Last Filed Vital Signs Vital Sign Reading Time Taken Comments Blood Pressure - - Pulse 99 05/21/2005 4:15 PM CDT Temperature 37 C (98.6 F) 05/21/2005 4:15 PM CDT Respiratory Rate 22 05/21/2005 4:15 PM CDT Oxygen Saturation - - Inhaled Oxygen Concentration - - Weight 24.5 kg (54 lb) 05/21/2005 4:15 PM CDT Height - - Body Mass Index - - documented in this encounter Plan of Treatment Upcoming Encounters Date Type Department Care Team ([facility] Contact Info) Description 06/26/2025 9:00 AM CDT Video Visit [facility] Adult Psychiatry [place] [address] [address] [place] [address] Argelia Law, MARKETING TECHNOLOGY SPECIALIST [address] [address] [place] [address] 08/08/2025 7:30 AM KEG FILLER Video Visit [facility] Adult Psychiatry [place] [address] [address] [place] [address] Thanh Argelia Lopez, [place] [address] [address] [place] [address] 09/25/2025 8:00 AM KEG FILLER Office Visit [facility] Primary Care - Kirby Herrmann [address] [place] [address] [address] Kassy Jay MD [address] [phone] documented as of this encounter Visit Diagnoses Not on filedocumented in this encounter Additional Health Concerns Infection Onset Date Last Indicated Resolved Time R/O COVID-19 06/02/2021 06/03/2021 06/03/2021 7:34 PM CDT R/O COVID-19 12/22/2022 12/22/2022 12/22/2022 12:2 5 PM CDT R/O COVID-19 09/07/2023 09/07/2023 09/07/2023 9:52 PM KEG FILLER documented as of this encounter Care Teams Crate Tier Relationship Specialty Start Date End Date Kassy Jay MD [address] [phone] PCP - General Family Practice 12/04/22 documented as of this encounter
--- OUTSIDE RECORDS SUMMARY | 2025-06-14 18:22 | XMS_ITS | Encounter Summary ---
Author Organization [facility] Address [address] [place] [address] Care Team Providers Care Associate Professor Computer Science Name Role Phone Kassy Jay MD Primary Care Provider [phone] Encounter Details Date Type Department Care Team (Late Contact Info) Description 1998 Outpatient Historical [facility] Pediatrics - [facility] [address] [address] [facility] [address] [place] [address] Darren Tabor MD NO ADDRESS ON FILE Social History Tobacco Use Types Packs/Day Years Used Date Smoking Tobacco: Never Assessed Comments Unknown Sex and Gender Information Value Date Recorded Sex Assigned at Not on file Legal Sex Female 4:02 AM CELL STRIPPER Gender Identity Not on file Sexual Orientation Not on file documented as of this encounter Plan of Treatment Upcoming Encounters Date Type Department Care Team (Late Contact Info) Description 06/26/2025 9:00 AM CDT Video Visit [facility] Adult Psychiatry [address] [address] Argelia Law NP [address] [place] [address] 08/08/2025 7:30 AM CELL STRIPPER Video Visit [facility] Adult Psychiatry [address] [address] Argelia Law NP [address] [address] [place] [address] 09/25/2025 8:00 AM CELL STRIPPER Office Visit [facility] Primary Care - Kirby Herrmann [address] [place] [address] Kassy Jay MD [address] [place] [place] [phone] documented as of this encounter Visit Diagnoses Not on filedocumented in this encounter Additional Health Concerns Infection Onset Date Last Indicated Resolved Time R/O COVID-19 06/02/2021 06/03/2021 06/03/2021 7:34 PM CDT R/O COVID-19 12/22/2022 12/22/2022 12/22/2022 12:2 5 PM CDT R/O COVID-19 09/07/2023 09/07/2023 09/07/2023 9:52 PM CELL STRIPPER documented as of this encounter Care Teams Associate Professor Computer Science Relationship Specialty Start Date End Date Kassy Jay MD [address] [phone] PCP - General Family Practice 12/04/22 documented as of this encounter
--- OUTSIDE RECORDS SUMMARY | 2025-06-14 18:22 | XMS_ITS | Encounter Summary ---
Author Organization [facility] Address [address] [place] [address] Care Team Providers Care Bar Tacker Name Role Phone Kassy Jay MD Primary Care Provider [phone] Encounter Details Date Type Department Care Team (Late Contact Info) Description 02/11/1999 Outpatient Historical [facility] Pediatrics - [facility] [address] [address] [facility] [address] [place] [address] Darren Tabor MD NO ADDRESS ON FILE Social History Tobacco Use Types Packs/Day Years Used Date Smoking Tobacco: Never Assessed Comments Unknown Sex and Gender Information Value Date Recorded Sex Assigned at Not on file Legal Sex Female 4:02 AM ATTENUATOR Gender Identity Not on file Sexual Orientation Not on file documented as of this encounter Plan of Treatment Upcoming Encounters Date Type Department Care Team (Late Contact Info) Description 06/26/2025 9:00 AM CDT Video Visit [facility] Adult Psychiatry [address] [address] Argelia Law NP [address] [place] [address] 08/08/2025 7:30 AM ATTENUATOR Video Visit [facility] Adult Psychiatry [address] [address] Argelia Law NP [address] [address] [place] [address] 09/25/2025 8:00 AM ATTENUATOR Office Visit [facility] Primary Care - Kirby Herrmann [address] [place] [address] [address] Kassy Jay MD [address] [phone] documented as of this encounter Visit Diagnoses Not on filedocumented in this encounter Additional Health Concerns Infection Onset Date Last Indicated Resolved Time R/O COVID-19 06/02/2021 06/03/2021 06/03/2021 7:34 PM CDT R/O COVID-19 12/22/2022 12/22/2022 12/22/2022 12:2 5 PM CDT R/O COVID-19 09/07/2023 09/07/2023 09/07/2023 9:52 PM ATTENUATOR documented as of this encounter Care Teams Bar Tacker Relationship Specialty Start Date End Date Kassy Jay MD [address] [place] [address] [phone] PCP - General Family Practice 12/04/22 documented as of this encounter
--- OUTSIDE RECORDS SUMMARY | 2025-06-14 18:23 | XMS_ITS | Encounter Summary ---
Author Organization [facility] Address [address] [place] [address] Care Team Providers Care Report Writer Name Role Phone Kassy Jay MD Primary Care Provider [phone] Encounter Details Date Type Department Care Team (Late Contact Info) Description 12/06/2007 Outpatient Historical [facility] Pediatrics - [facility] [address] [facility] [place] [address] [place] [address] [place] [address] Social History Tobacco Use Types Packs/Day Years Used Date Smoking Tobacco: Never Assessed Comments Unknown Sex and Gender Information Value Date Recorded Sex Assigned at Not on file Legal Sex Female 4:02 AM HARDSCAPE FOREMAN Gender Identity Not on file Sexual Orientation Not on file documented as of this encounter Plan of Treatment Upcoming Encounters Date Type Department Care Team (Late Contact Info) Description 06/26/2025 9:00 AM CDT Video Visit [facility] Adult Psychiatry [place] [address] [address] Argelia Law NP [address] [address] 08/08/2025 7:30 AM HARDSCAPE FOREMAN Video Visit [facility] Adult Psychiatry [place] [address] [address] [place] [address] Argelia Law NP 1420 [facility] [address] [address] [address] 09/25/2025 8:00 AM HARDSCAPE FOREMAN Office Visit [facility] Primary Care - Kirby Herrmann [address] [place] [address] Kassy Jay MD [address] [place] [phone] documented as of this encounter Visit Diagnoses Not on filedocumented in this encounter Additional Health Concerns Infection Onset Date Last Indicated Resolved Time R/O COVID-19 06/02/2021 06/03/2021 06/03/2021 7:34 PM CDT R/O COVID-19 12/22/2022 12/22/2022 12/22/2022 12:2 5 PM CDT R/O COVID-19 09/07/2023 09/07/2023 09/07/2023 9:52 PM HARDSCAPE FOREMAN documented as of this encounter Care Teams Report Writer Relationship Specialty Start Date End Date Kassy Jay MD [address] [place] [phone] PCP - General Family Practice 12/04/22 documented as of this encounter
--- OUTSIDE RECORDS SUMMARY | 2025-06-14 18:23 | XMS_ITS | Encounter Summary ---
Author Organization [facility] Address [address] [place] [address] Care Team Providers Care Alteration Hand Name Role Phone Kassy Jay MD Primary Care Provider [phone] Encounter Details Date Type Department Care Team (Late Contact Info) Description 12/06/2007 Outpatient Historical [facility] Pediatrics - [facility] [address] [place] [address] [place] [address] [address] [place] [address] Social History Tobacco Use Types Packs/Day Years Used Date Smoking Tobacco: Never Assessed Comments Unknown Sex and Gender Information Value Date Recorded Sex Assigned at Not on file Legal Sex Female 4:02 AM ENGINEERING TEST SPECIALIST Gender Identity Not on file Sexual Orientation Not on file documented as of this encounter Plan of Treatment Upcoming Encounters Date Type Department Care Team (Late Contact Info) Description 06/26/2025 9:00 AM CDT Video Visit [facility] Adult Psychiatry [place] [address] [phone] Argelia Law NP [address] [address] 08/08/2025 7:30 AM ENGINEERING TEST SPECIALIST Video Visit [facility] Adult Psychiatry [place] [address] [address] [place] [phone] Argelia Law NP [address] [facility] [address] [place] [address] 09/25/2025 8:00 AM ENGINEERING TEST SPECIALIST Office Visit [facility] Primary Care - Kirby Herrmann [address] [place] [phone] Kassy Jay MD [address] [place] [address] documented as of this encounter Visit Diagnoses Not on filedocumented in this encounter Additional Health Concerns Infection Onset Date Last Indicated Resolved Time R/O COVID-19 06/02/2021 06/03/2021 06/03/2021 7:34 PM CDT R/O COVID-19 12/22/2022 12/22/2022 12/22/2022 12:2 5 PM CDT R/O COVID-19 09/07/2023 09/07/2023 09/07/2023 9:52 PM ENGINEERING TEST SPECIALIST documented as of this encounter Care Teams Alteration Hand Relationship Specialty Start Date End Date Kassy Jay MD [address] [place] [address] [phone] PCP - General Family Practice 12/04/22 documented as of this encounter
--- OUTSIDE RECORDS SUMMARY | 2025-06-14 18:23 | XMS_ITS | Encounter Summary ---
Author Organization [facility] Address [address] [place] [address] Care Team Providers Care Logistics Lead Name Role Phone Kassy Jay MD Primary Care Provider [phone] Encounter Details Date Type Department Care Team (Late st Contact Info) Description 12/06/2007 Orders Only [facility] Pediatrics - [facility] [address] [place] [address] [place] [address] [address] [address] [place] [address] Social History Tobacco Use Types Packs/Day Years Used Date Smoking Tobacco: Never Assessed Comments Unknown Sex and Gender Information Value Date Recorded Sex Assigned at Not on file Legal Sex Female 4:02 AM DINING ROOM HOST Gender Identity Not on file Sexual Orientation Not on file documented as of this encounter Progress Notes * Lacie Malik MD - 02/24/2008 6:49 PM CDT PATIENT'S AGE: 7 yrs, 9 mths, 1 wk, 3 days VITALS: TEMP: 98.4??f Oral PULSE: 116 Apical, Regular RESPIRATIONS: 20. WEIGHT: [id number] NURSE NAME: Lakeshia Fan J ACCOMPANIED BY: Father. ALLERGIES: CURRENT ALLERGY LIST: AUGMENTIN PEANUTS MEDICATIONS: Albuterol, Singulair CHIEF COMPLAINT: Coughing and wheezing. HISTORY: HPI: Coughing for a couple weeks - worse at night. Wheezing occasionally with increasing frequency.No fevers. Had to use albuterol twice at school today, had to stop dance class and rest because of cough. Is on singulair. No known exposures to anything that triggered asthma. PHYSICAL EXAM: CONSTITUTIONAL: GENERAL APPEARANCE: Healthy appearing, [...] pharynx. NECK: No lymphadenopathy noted. Supple. RESPIRATORY: MODERATE EXPIRATORY WHEEZE HEARD THROUGHOUT BOTH LUNG GORDON. CARDIOVASCULAR: CARDIAC: Regular rhythm with no murmurs, rubs, gallops, or abnormal heart sounds. GASTROINTESTINAL: ABDOMEN: Soft, non-tender, without masses. Bowel sound active. LIVER/SPLEEN/KIDNEY: No hepatosplenomegaly. SKIN: INSPECTION: Good color, no rashes, birthmarks or lesions noted on arms, chest or abdomen. OFFICE PROCEDURE: Nebulizer treatment administered using 2.5 mg Albuterol in 2 cc Normal Saline. RESPONSE TO TREATMENT #1 Response to treatment showed increased aeration, decreased wheezing. ASSESSMENT/PLAN: 493.92-ASTHMA UNS W AC EXACER MEDICATIONS: ORAPRED ODT ORAL TABLET DISPERSIBLE 15 MG TABLETS, 3 po daily x 5 days, 15 Dispensed, status: NEW PRESCRIPTION, 12/06/2007. albuterol q 4 - 6 hours RETURN VISIT/GUIDANCE: Patient is to return on an as needed basis or to call with concerns or changes in condition. Electronically Signed by: Lacie Malik MD on Thursday, December 06, 2007 documented in this encounter Plan of Treatment Upcoming Encounters Date Type Department Care Team (Late st Contact Info) Description 06/26/2025 9:00 AM CDT Video Visit [facility] Adult Psychiatry [place] [address] [address] [place], [place] [phone] Argelia Law, [place] [address] [address] [place] [address] 08/08/2025 7:30 AM DINING ROOM HOST Video Visit [facility] Adult Psychiatry [place] [address] [address] [place] [phone] Argelia Law NP [address] [address] [place] [address] 09/25/2025 8:00 AM DINING ROOM HOST Office Visit [facility] Primary Care - [facility] Herrmann [address] [place] [address] Kassy Jay MD [address] [place] [place] [phone] documented as of this encounter Visit Diagnoses Not on filedocumented in this encounter Additional Health Concerns Infection Onset Date Last Indicated Resolved Time R/O COVID-19 06/02/2021 06/03/2021 06/03/2021 7:34 PM CDT R/O COVID-19 12/22/2022 12/22/2022 12/22/2022 12:2 5 PM CDT R/O COVID-19 09/07/2023 09/07/2023 09/07/2023 9:52 PM DINING ROOM HOST documented as of this encounter Care Teams Logistics Lead Relationship Specialty Start Date End Date Kassy Jay MD [address] [place] [phone] PCP - General Family Practice 12/04/22 documented as of this encounter
--- OUTSIDE RECORDS SUMMARY | 2025-06-14 18:23 | XMS_ITS | Encounter Summary ---
Author Organization [facility] Address [address] [place] [address] Care Team Providers Care Vector Control Assistant Name Role Phone Kassy Jay MD Primary Care Provider [phone] Encounter Details Date Type Department Care Team (Late st Contact Info) Description 08/11/2007 Orders Only [facility] Pediatrics - [facility] [address] [place] [address] [place] [address] [facility] [address] [place] [address] Social History Tobacco Use Types Packs/Day Years Used Date Smoking Tobacco: Never Assessed Comments Unknown Sex and Gender Information Value Date Recorded Sex Assigned at Not on file Legal Sex Female 4:02 AM WRECKING CRANE ENGINE OPERATOR Gender Identity Not on file Sexual Orientation Not on file documented as of this encounter Progress Notes * Lacie Malik MD - 02/03/2008 7:28 PM CDT PATIENT'S AGE: 7 yrs, 5 mths, 2 wks, 0 days VITALS: TEMP: 98.1??f Oral PULSE: 104 Apical, Regular RESPIRATIONS: 20. WEIGHT: 75lbs NURSE NAME: Jeanna Jean ACCOMPANIED BY: Father. ALLERGIES: CURRENT ALLERGY LIST: AUGMENTIN PEANUTS MEDICATIONS: RN/MA reviewed medications. ALBUTEROL, Advair, Singulair. CHIEF COMPLAINT: The child is here for evaluation of cough. HISTORY: HPI: COUGH: The symptoms began approximately 1 month ago, to 2 months ago. The patient has no symptoms of chest congestion, the patient has a cough, no symptoms of coughing up blood, the patient does nothave a fever, no symptoms of loss of appetite, the patient does not have nasal congestion, no symptoms of shortness of breath, the patient does not have any vomiting, no symptoms of wheezing. The symptoms have not changed a great deal recently. Patient has been diagnosed with asthma. cough is worseat night and with exercise PHYSICAL EXAM: CONSTITUTIONAL: GENERAL APPEARANCE: Healthy appearing, [...] Supple. RESPIRATORY: Clear to auscultation. Normal respiratory effort.prolonged exp phase CARDIOVASCULAR: CARDIAC: Regular rhythm with no murmurs, rubs, gallops, or abnormal heart sounds. GASTROINTESTINAL: ABDOMEN: Soft, non-tender, without masses. Bowel sound active. LIVER/SPLEEN/KIDNEY: No hepatosplenomegaly. SKIN: INSPECTION: Good color, no rashes, birthmarks or lesions noted on arms, chest or abdomen. ASSESSMENT/PLAN: 493.92-ASTHMA UNS W AC EXACER MEDICATIONS: ORAPRED ORAL SOLUTION 15 MG/5ML MILLILITERS, 2 tsp po bid x 5 days, 100 Dispensed, status: NEW PRESCRIPTION, 08/11/2007. RETURN VISIT/GUIDANCE: Patient is to return on an as needed basis or to call with concerns or changes in condition., inb Electronically Signed by: Lacie Malik MD on Thursday, August 11, 2007 documented in this encounter Plan of Treatment Upcoming Encounters Date Type Department Care Team (Late st Contact Info) Description 06/26/2025 9:00 AM CDT Video Visit [facility] Adult Psychiatry [place] [address] [address] [place] [address] Thanh, Argelia Lopez, [place] [address] [address] [place] [address] 08/08/2025 7:30 AM WRECKING CRANE ENGINE OPERATOR Video Visit [facility] Adult Psychiatry [place] [address] [place] [address] Thanh, Argelia Lopez NP [address] [address] [place] [address] 09/25/2025 8:00 AM WRECKING CRANE ENGINE OPERATOR Office Visit [facility] Primary Care - [facility] Herrmann [address] [place] [address] Kassy Jay MD [address] [place] [phone] documented as of this encounter Visit Diagnoses Not on filedocumented in this encounter Additional Health Concerns Infection Onset Date Last Indicated Resolved Time R/O COVID-19 06/02/2021 06/03/2021 06/03/2021 7:34 PM CDT R/O COVID-19 12/22/2022 12/22/2022 12/22/2022 12:2 5 PM CDT R/O COVID-19 09/07/2023 09/07/2023 09/07/2023 9:52 PM WRECKING CRANE ENGINE OPERATOR documented as of this encounter Care Teams Vector Control Assistant Relationship Specialty Start Date End Date Kassy Jay MD [address] [place] [address] PCP - General Family Practice 12/04/22 documented as of this encounter
--- OUTSIDE RECORDS SUMMARY | 2025-06-14 18:23 | XMS_ITS | Encounter Summary ---
Author Organization [facility] Address [address] [place] [address] Care Team Providers Care Paratransit Operator Name Role Phone Kassy Jay MD Primary Care Provider [phone] Encounter Details Date Type Department Care Team (Late Contact Info) Description 05/04/2008 Outpatient Historical [facility] [address] [facility] [address] [place] [address] Headache Social History Tobacco Use Types Packs/Day Years Used Date Smoking Tobacco: Never Assessed Comments No Sex and Gender Information Value Date Recorded Sex Assigned at Not on file Legal Sex 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 Gender Identity Not on file Sexual Orientation Not on file documented as of this encounter Plan of Treatment Upcoming Encounters Date Type Department Care Team ([facility] Contact Info) Description 06/26/2025 9:00 AM CDT Video Visit [facility] Adult Psychiatry [address] [phone] Argelia Law NP [address] [address] 08/08/2025 7:30 AM 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 Video Visit [facility] Adult Psychiatry [address] [phone] Debbie Lawney John, BANQUET BARTENDER [address] [address] [place] [address] 09/25/2025 8:00 AM 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 Office Visit [facility] Primary Care - Kirby Herrmann [address] [place] [address] [address] Kassy Jay MD [address] [place] [phone] documented as of this encounter Visit Diagnoses Diagnosis Headache(784.0) Headache documented in this encounter Additional Health Concerns Infection Onset Date Last Indicated Resolved Time R/O COVID-19 06/02/2021 06/03/2021 06/03/2021 7:34 PM CDT R/O COVID-19 12/22/2022 12/22/2022 12/22/2022 12:2 5 PM CDT R/O COVID-19 09/07/2023 09/07/2023 09/07/2023 9:52 PM 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
--- OUTSIDE RECORDS SUMMARY | 2025-06-14 18:23 | XMS_ITS | Clinical Summary ---
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 TECHNICIAN Office Visit [facility] Primary Care - Michael Herrmann [address] [place] [phone] Kassy Jay MD [address] [place] [phone] Health Maintenance Due Date Last Done Comments HPV/Cotest (21-29) 2019 HPV VACCINES (1 - 3-dose SCD M series) 2025 COVID-19 Vaccine (2024-2 6 season) 2025 06/21/2023, 08/03/2022, 07/15/2021, Additional history exists CERVICAL CANCER SCREENING 08/31/2026 PAP SMEAR 08/31/2026 08/31/2023, 04/23/2020 DTAP/TDAP/TD VACCINES (10 - Td or Tdap) 05/16/2031 05/16/2021, 02/15/2020, 03/05/2011, Additional history exists HEPATITIS B VACCINES Completed 1998, 1998, 1998 Preventative Visit- Commercial Completed 0 10/11/2024, 09/06/2024, 10/07/2023, Additional history exists INFLUENZA VACCINE Completed 05/31/2025, , 06/05/2023, Additional history exists Medical Devices Implanted Type Area Violin Repairer Device Identifier Shelf Expiration Date Model / Serial / Lot Clip Ti Med/Lg 3200 - Csc - [id number] Implanted:Qty: 2 on 01/03/2025 by Tarik Cervantes DO at [facility] Clip N/A: Abdomen TELEFLEX- WECK CLOSURE SYS 06/09/2029 [id number] / / [id number] Iud Procedures Procedure Name Priority Date/Time Associated Diagnosis Comments HOLTER MONITOR Routine 04/09/2025 9:20 PM CDT Chest pain, unspecified type Anorexia Syncope, unspecified syncope type CBC WITH DIFFERENTIAL Routine 04/07/2025 2:47 PM CDT Iron deficiency anemia, unspecified iron deficiency anemia type COMPREHENSIVE METABOLIC PANEL Routine 04/07/2025 2:47 PM CDT BARBIE (generalized anxiety disorder) Severe calorie deficiency STRESS TEST EXERCISE TREADMILL Routine 04/06/2025 1:34 PM CDT Chest pain, unspecified type Anorexia Syncope, unspecified syncope type HCG QUALITATIVE, SERUM Stat 2:57 PM CDT TROPONIN BASELINE, 5TH GEN Stat 04/01/2025 2:57 PM CDT COMPREHENSIVE METABOLIC PANEL Stat 04/01/2025 2:57 PM CDT CBC WITH DIFFERENTIAL Stat 04/01/2025 2:57 PM CDT EKG 12-LEAD Stat 04/01/2025 2:53 PM CDT URINALYSIS WITH REFLEX CULTURE Routine 03/29/2025 8:12 AM CDT Severe calorie deficiency AMYLASE Routine 03/29/2025 8:10 AM CDT Severe calorie deficiency VITAMIN D 25 HYDROXY Routine 03/29/2025 8:10 AM CDT Encounter for vitamin deficiency screening Severe calorie deficiency VITAMIN B12 AND FOLATE Routine 8:10 AM CDT Vitamin B12 deficiency (non anemic) Severe calorie deficiency CK Routine 03/29/2025 8:10 AM CDT Severe calorie deficiency MAGNESIUM LEVEL Routine 03/29/2025 8:10 AM CDT Encounter for vitamin deficiency screening Severe calorie deficiency IRON, TIBC, AND PERCENT SATURATION Routine 03/29/2025 8:10 AM CDT Iron deficiency anemia, unspecified iron deficiency anemia type FERRITIN Routine 03/29/2025 8:10 AM CDT Iron deficiency anemia, unspecified iron deficiency anemia type CBC WITH DIFFERENTIAL Routine 03/29/2025 8:10 AM CDT Iron deficiency anemia, unspecified iron deficiency anemia type TSH REFLEXIVE Routine 03/29/2025 8:10 AM CDT BARBIE (generalized anxiety disorder) HEMOGLOBIN A1C Routine 03/29/2025 8:10 AM CDT Screening for diabetes mellitus COMPREHENSIVE METABOLIC PANEL Routine 03/29/2025 8:10 AM CDT BARBIE (generalized anxiety disorder) Severe calorie deficiency VA ECG ROUTINE ECG W/LEAST 12 LDS W/I&R Routine 03/29/2025 7:30 AM CDT Severe calorie deficiency Abnormal weight loss BARBIE (generalized anxiety disorder) from Last 3 Months Results * HOLTER MONITOR (04/09/2025 9:20 PM CDT) 04/09/2025 9:20 PM CDT Narrative INTERFACE SYSTEM - 04/10/2025 4:32 PM CDT [place] [id number] Test Date: 2025-04-09 Pat Name: ISAURA FRANCIS Department: Room: Gender: Female Industrial Service Technician: : 2000 Requested By: JARETT Gibson Order Number: [id number] Travon RODRIGUEZ: Hayes Otero Interpretive Statements Patient monitored for 2d, analyzable time was 2d starting on 04/06/2025 12:51 pm. Primary rhythm was Sinus Rhythm. Average heart rate was 79 bpm, Minimum heart rate was 53 bpm on Day :52:14 am, Max heart rate was 147 bpm on Day :55:52 pm SVE(s): [place] was less than 0.01 %, 3 total SVE(s) PVC(s): [place] was less than 0.01 %, 5 total PVC(s), 2 disparate morphologies Patient recorded 3 event(s) during the monitoring period Impression: 1. Primary rhythm was sinus with normal heart rate profile. 2. Trivial ectopy burden. 3. There were 3 patient triggered symptomatic events for symptoms of dizziness, lightheadedness, chest pain. Symptoms corresponded to normal sinus rhythm and mild sinus tachycardia. Electronically Signed On 04-10-2025 16:32:38 CDT by Hayes Otero Procedure Note Hayes Otero MD - 04/10/2025 [place] [address] Test Date: 2025-04-09 Pat Name: ISAURA FRANCIS Department: Room: Gender: Female Industrial Service Technician: : 2000 Requested By: JARETT Gibson Order Number: [id number] Travon RODRIGUEZ: Hayes Otero Interpretive Statements Patient monitored for 2d, analyzable time was 2d starting on 2:51 pm. Primary rhythm was Sinus Rhythm. Average heart rate was 79 bpm, Minimumheart rate was 53 bpm on Day :52:14 am, Max heart rate was 147 bpm on Day:55:52 pm SVE(s): [place] was less than 0.01 %, 3 total SVE(s) PVC(s): [place] was less than 0.01 %, 5 total PVC(s), 2 disparatemorphologies Patient recorded 3 event(s) during the monitoring period Impression: 1. Primary rhythm was sinus with normal heart rate profile. 2. Trivial ectopy burden. 3. There were 3 patient triggered symptomatic events for symptoms of dizziness, lightheadedness, chest pain. Symptoms corresponded to normal sinus rhythm and mild sinus tachycardia. Electronically Signed On 04-10-2025 16:32:38 CDT by Hayes Otero Jarett Rodney MD CARDIAC SERVICES ORDERABLES Final Result INTERFACE SYSTEM Refer to clinic/hospital department * (ABNORMAL) CBC WITH DIFFERENTIAL (04/07/2025 2:47 PM CDT) Only the most recent of3 resultswithin the time period is included. WBC 7.2 3.8 - 10.8 Thousand/ uL [facility] RBC 5.04 3.80 - 5.10 Million/u L [facility] HEMOGLOBIN 14.6 11.7 - 15.5 g/dL [facility] HEMATOCRIT 45.5(H) 35.0 - 45.0 % [facility] MCV 90.3 80.0 - 100.0 fL [facility] MCH 29.0 27.0 - 33.0 pg [facility] MCHC 32.1 32.0 - 36.0 g/dL [facility] Comment: For adults, a slight decrease in the calculated MCHC value (in the range of 30 to 32 g/dL) is most likely not clinically significant; however, it should be interpreted with caution in correlation with other red cell parameters and the patient's clinical condition. RDW 13.0 11.0 - 15.0 % [facility] PLATELETS 261 140 - 400 Thousand/ uL [facility] MPV 9.9 7.5 - 12.5 fL [facility] NEUTROPHIL ABSOLUTE 4,889 1,500 - 7,800 cells/uL [facility] LYMPHOCYTE ABSOLUTE 1,937 850 - 3,900 cells/uL [facility] MONOCYTE ABSOLUTE 302 200 - 950 cells/uL [facility] EOSINOPHIL ABSOLUTE 43 15 - 500 cells/uL [facility] BASOPHILS ABSOLUTE 29 0 - 200 cells/uL [facility] NEUTROPHIL 67.9 % [facility] Faina[facility]sor[facility] LYMPHOCYTES 26.9 % [facility] Fain[facility]sor[facility] el[facility] MONOCYTE 4.2 % [facility] EisenbergOsor[facility] elvi Ramos EOSINOPHILS 0.6 % [facility] EisenbergOsorio elvi Ramos BASOPHILS 0.4 % [facility] Comment: Test Performed at: [facility] [place] [address] [place] [address] Lc Andrews Blood 04/07/2025 2:47 PM CDT 04/07/2025 2:48 PM CDT Rayne Rojo RETOUCHER PHOTOENGRAVING HEMATOLOGY ORDERABLES Final Result [facility] [phone] [facility] [address] [address] [place] [address] * (ABNORMAL) COMPREHENSIVE METABOLIC PANEL (04/07/2025 2:47 PM CDT) Only the most recent of3 resultswithin the time period is included. GLUCOSE 144(H) 65 - 99 mg/dL [facility] Comment: Fasting reference interval For someone without known diabetes, a glucose value >125 mg/dL indicates that they may have diabetes and this should be confirmed with a follow-up test. BUN 12 7 - 25 mg/dL [facility] CREATININE 0.63 0.50 - 0.96 mg/dL [facility] GFR 125 > OR = 60 mL/min/1. 73m2 [facility] BUN/CREAT RATIO SEE NOTE: 6 - 22 (calc) [facility] Comment: Not Reported: BUN and Creatinine are within reference range. SODIUM 140 135 - 146 mmol/L [facility] POTASSIUM 3.9 3.5 - 5.3 mmol/L [facility] CHLORIDE 103 98 - 110 mmol/L [facility] CO2 28 20 - 32 mmol/L [facility] CALCIUM 9.8 8.6 - 10.2 mg/dL [facility] TOTAL PROTEIN 7.2 6.1 - 8.1 g/dL [facility] ALBUMIN 4.6 3.6 - 5.1 g/dL [facility] GLOBULIN 2.6 1.9 - 3.7 g/dL (calc) [facility] ALBUMIN/GLOBULIN RATIO 1.8 1.0 - 2.5 (calc) [facility] BILIRUBIN TOTAL 0.3 0.2 - 1.2 mg/dL [facility] ALKALINE PHOSPHATASE 50 31 - 125 U/L [facility]so AST 13 10 - 30 U/L [facility] ALT 12 6 - 29 U/L [facility] Comment: Test Performed at: [facility] [place] [address] [place] [address] Lc Andrews Blood 04/07/2025 2:47 PM CDT 04/07/2025 2:48 PM CDT Rayne Rojo RETOUCHER PHOTOENGRAVING CHEMISTRY ORDERABLES Final Result [facility] [phone] [facility] [place] [address] [place] [address] * STRESS TEST EXERCISE TREADMILL (04/06/2025 1:34 PM CDT) EJECTION FRACTION EF: INTERFACE SYSTEM 04/06/2025 2:00 PM CDT Narrative INTERFACE SYSTEM - 04/06/2025 2:48 PM CDT [facility] Heart and Vascular Testing Stress Electrography Redd Protocol Patient: Isaura Francis Study ID: Gender: F : 2000 Age: 25 Race: KIT Height 154.9cm Study Date: 04/06/2025 Weight: 71.7kg Access. #: [id number] BP: 116 / 88 *Referring Physician:Jarett Johns *Ordering Physician:Jarett Johns maintenance groundman: Nurse: JESSE Indications: Chest pain. Syncope. History: PMH: Asthma. Anorexia. Anxiety. GERD. ADHD. PTSD. Risk factors: Hypertension. Family history is significant for coronary artery disease. STUDY CONCLUSIONS: SUMMARY: - Stress ECG conclusions: The stress ECG is negative for ischemia. Mays scoring: exercise time of 6 min 30 sec; maximum ST deviation of 0mm; no angina; resulting score is 7. This score predicts a low risk of cardiac events. - Stress data: There is a normal resting blood pressure with an appropriate response to stress. The patient experienced no chest pain during stress. Patient experienced moderate dizziness at peak stress, relieving in recovery with rest. Functional capacity was decreased. Impressions: Maximal Exercise Treadmill Stress Test at 86% of predicted heart rate for age. Negative for ischemia by ECG. Cardiac Anatomy: Baseline ECG: Sinus tachycardia [address]-T wave abnormalities. Stress protocol: - Baseline HR: 110bpm BP: 116/88 - Peak stress HR: 166bpm BP: 158/80 - Recovery HR: 106bpm BP: 126/80 Stress results: Maximal heart rate during stress was 166bpm (86% of maximal predicted heart rate). The maximal predicted heart rate was 193bpm. The target heart rate was 164bpm. The target heart rate was achieved. The heart rate response to stress is normal. There is a normal resting blood pressure with an appropriate response to stress. The rate-pressure product for the peak heart rate and blood pressure was 85549vf Hg/min. The patient experienced no chest pain during stress. The patient experienced moderate dizziness during peak stress, relieving in recovery with rest. Functional capacity was decreased. Treadmill exercise testing was performed using the Redd protocol. The patient exercised for 6 min 25 sec, to protocol stage 3, to a maximal work rate of 8.2mets. Exercise was terminated moderate dyspnea and moderate fatigue. Stress ECG: The stress ECG is negative for ischemia. Mays scoring: exercise time of 6 min 30 sec; maximum ST deviation of 0mm; no angina; resulting score is 7. This score predicts a low risk of cardiac events. Procedure data: MCHOD Consent: The risks, benefits, and alternatives to the procedure were explained to the patient and informed consent was obtained. Procedure information: The patient arrived at the laboratory. A baseline ECG was recorded. Surface ECG leads and manual cuff blood pressure measurements were monitored. Study completion: There were no complications. Redd protocol. Stress electrography. Birthdate: Patient birthdate: 2000. Age: Patient is 25year(s) old. Sex: gender: female. Height: 154.9cm. 61in. Weight: 71.7kg. 158.1lb. Body mass index: 29.9kg/m^2. Body surface area: 1.78m^2. Blood pressure: 116/88 Patient status: Outpatient. Study date: Study date: 04/06/2025. Study time: 02:00 PM. Location: Echo laboratory. Prepared and Electronically Authenticated Jarett Rodney [id number] Procedure Note Jarett Rodney MD - 04/06/2025 [facility] Stress Electrography Redd Protocol Patient: Isaura Francis Study ID: Gender: F : 2000 Age: 25 Race: KIT Height 154.9cm Study Date: 04/06/2025 Weight: 71.7kg Access. #: [id number] BP: 116 / 88 *Referring Physician:* Jarett Rodney *Ordering Physician:Jarett Johns maintenance groundman: Nurse: JESSE Indications: Chest pain. Syncope. History: PMH: Asthma. Anorexia. Anxiety. GERD. ADHD. PTSD. Risk factors: Hypertension. Family history is significant for coronary artery disease. STUDY CONCLUSIONS: SUMMARY: - Stress ECG conclusions: The stress ECG is negative for ischemia. Mays scoring: exercise time of 6 min 30 sec; maximum ST deviation of 0mm;no angina; resulting score is 7. This score predicts a low risk ofcardiac events. - Stress data: There is a normal resting blood pressure with anappropriate response to stress. The patient experienced no chest pain duringstress. Patient experienced moderate dizziness at peak stress, relieving inrecovery with rest. Functional capacity was decreased. Impressions: Maximal Exercise Treadmill Stress Test at 86% of predictedheart rate for age. Negative for ischemia by ECG. Cardiac Anatomy: Baseline ECG: Sinus tachycardia [address]-T waveabnormalities. Stress protocol: - Baseline HR: 110bpm BP: 116/88 - Peak stress HR: 166bpm BP: 158/80 - Recovery HR: 106bpm BP: 126/80 Stress results: Maximal heart rate during stress was 166bpm (86% ofmaximal predicted heart rate). The maximal predicted heart rate was 193bpm. Thetarget heart rate was 164bpm. The target heart rate was achieved. The heartrate response to stress is normal. There is a normal resting blood pressurewith an appropriate response to stress. The rate-pressure product for the peakheart rate and blood pressure was 74303iz Hg/min. The patient experienced nochest pain during stress. The patient experienced moderate dizziness duringpeak stress, relieving in recovery with rest. Functional capacity wasdecreased. Treadmill exercise testing was performed using the Redd protocol. Thepatient exercised for 6 min 25 sec, to protocol stage 3, to a maximal work rateof 8.2mets. Exercise was terminated moderate dyspnea and moderate fatigue. Stress ECG: The stress ECG is negative for ischemia. Mays scoring: exercise time of 6 min 30 sec; maximum ST deviation of 0mm; no angina; resulting score is 7. This score predicts a low risk of cardiac events. Procedure data: MCHOD Consent: The risks, benefits, and alternatives to the procedurewere explained to the patient and informed consent was obtained. Procedure information: The patient arrived at the laboratory. A baseline ECG was recorded. Surface ECG leads and manual cuff blood pressure measurementswere monitored. Study completion: There were no complications.Redd protocol. Stress electrography. Birthdate: Patient birthdate:2000. Age: Patient is 25year(s) old. Sex: gender: female. Height: 154.9cm. 61in. Weight: 71.7kg. 158.1lb. Body mass index: 29.9kg/m^2.Body surface area: 1.78m^2. Blood pressure: 116/88 Patient status: Outpatient. Study date: Study date: 04/06/2025. Study time: 02:00 PM. Location: Echo laboratory. Prepared and ElectronicallyAuthenticated Jarett Rodney [id number]:45 us Jarett Rodney MD MT ORDERABLES Final Resul t INTERFACE SYSTEM Refer to clinic/hospital department * TROPONIN BASELINE, 5TH GEN (04/01/2025 2:57 PM CDT) TROPONIN T, BASELINE 5TH GEN <6 <=10 ng/L 04/01/2025 3:53 PM CDT [facility] [id number] [facility] Blood Venipuncture / Unknown 04/01/2025 2:57 PM CDT 04/01/2025 3:18 PM CDT Narrative [facility] - 04/01/2025 3:53 PM CDT Troponin Undetectable us Protocol [facility] MD CHEMISTRY ORDERABLES Final Result Performing Organization Address City/[facility]/ZIP Co de Phone Number [facility] CLIA# [id number] [address] [place] [address] * HCG QUALITATIVE, BLOOD (04/01/2025 2:57 PM CDT) HCG QUAL, BLOOD Negative Negative 04/01/2025 3:34 PM CDT [facility] Blood Venipuncture / Unknown 04/01/2025 2:57 PM CDT 04/01/2025 3:13 PM CDT us Protocol [facility] MD CHEMISTRY ORDERABLES Final Result Performing Organization Address City/[facility] Co de Phone Number [facility] CLIA# [id number] [address] [place] [address] * EKG 12-LEAD (04/01/2025 2:53 PM CDT) Only the most recent of2 resultswithin the time period is included. 04/01/2025 2:53 PM CDT Narrative INTERFACE SYSTEM - 04/02/2025 11:56 AM CDT [facility] [id number] [place] [address] Test Date: 2025-04-01 Pat Name: ISAURA FRANCIS Department: 92 Room: Gender: Female Industrial Service Technician: : 2000 Requested By: Order Number: [id number] Travon MD: Loy Malone Measurements Intervals [place] Rate: 77 P: 20 VA: 150 QRS: 11 QRSD: 80 T: 35 QT: 386 QTc: 436 Interpretive Statements Normal sinus rhythm with sinus arrhythmia Normal ECG Compared to ECG 03/03/2025 17:52:21 T-wave abnormality no longer present Electronically Signed On 04-02-2025 11:56:32 CDT by Loy Malone Procedure Note Loy Malone MD - 04/02/2025 [facility] [place] [address] [place] [address] Test Date: 2025-04-01 Pat Name: ISAURA FRANCIS Department: 92 Room: Gender: Female Industrial Service Technician: : 2000 Requested By: Order Number: [id number] Reading MD: Loy Malone Measurements Intervals [place] Rate: 77 P: 20 VA: 150 QRS: 11 QRSD: 80 T: 35 QT: 386 QTc: 436 Interpretive Statements Normal sinus rhythm with sinus arrhythmia Normal ECG Compared to ECG 03/03/2025 17:52:21 T-wave abnormality no longer present Electronically Signed On 04-02-2025 11:56:32 CDT by Loy Malone us Protocol [facility] MD ECG ORDERABLES Final Result Performing Organization Address City/State/[facility] Co de Phone Number INTERFACE SYSTEM Refer to clinic/hospital department * URINALYSIS WITH REFLEX CULTURE (03/29/2025 8:12 AM CDT) COLOR UA YELLOW YELLOW [facility] CLARITY UA CLEAR CLEAR [facility] SPECIFIC GRAVITY UA 1.019 1.001 - 1.035 [facility] PH UA 6.5 5.0 - 8.0 [facility] GLUCOSE UA NEGATIVE NEGATIVE [facility] BILIRUBIN UA NEGATIVE NEGATIVE [facility] KETONES UA NEGATIVE NEGATIVE [facility] BLOOD UA NEGATIVE NEGATIVE [facility] PROTEIN UA NEGATIVE NEGATIVE [facility] NITRITE UA NEGATIVE NEGATIVE [facility] LEUKOCYTE ESTERASE UA NEGATIVE NEGATIVE [facility] WBC UA NONE SEEN < OR = 5 /HPF [facility] RBC UA NONE SEEN < OR = 2 /HPF [facility] EPITHELIAL CELLS, URINE 0-5 < OR = 5 /HPF [facility] BACTERIA UA NONE SEEN NONE SEEN /HPF [facility] HYALINE CAST NONE SEEN NONE SEEN /LPF [facility] URINE NOTE [facility] Comment: This urine was analyzed for the presence of WBC, RBC, bacteria, casts, and other formed elements. Only those elements seen were reported. URINE CULTURE [facility] Comment: NO CULTURE INDICATED Test Performed at: [place] [address] [address] [address] [facility] Darryl Urine URINE SPECIMEN OBTAINED BY CLEAN CATCH PROCEDURE / Unknown 03/29/2025 8:12 AM CDT 03/29/2025 8:12 AM CDT Rayne Rojo [facility] URINE ORDERABLES Jessica l Result Performing Organization Address City/[facility]/ZIP Code Phone Number [facility] [phone] [place] [address] [place] [address] * TSH REFLEXIVE (03/29/2025 8:10 AM CDT) Pathologist [facility] TSH 2.22 mIU/L [facility] Comment: Reference Range > or = 20 Years 0.40-4.50 Ranges First trimester 0.26-2.66 Second trimester 0.55-2.73 Third trimester 0.43-2.91 FASTING:NO FASTING: NO Test Performed at: [place] [address] [address] [address] SusiJeanette Andre Blood 03/29/2025 8:10 AM CDT 03/29/2025 8:11 AM CDT Rayne Rojo [facility] CHEMISTRY ORDERABLES Final Result Performing Organization Address City/[facility]/ZIP Code Phone Number [facility] [phone] [place] [address] [place] [address] * (ABNORMAL) VITAMIN B12 AND FOLATE (03/29/2025 8:10 AM CDT) VITAMIN B12 466 200 - 1100 pg/mL [facility] FOLATE, SERUM 4.5(L) ng/mL [facility] Comment: Reference Range Low: <3.4 Borderline: 3.4-5.4 Normal: >5.4 Test Performed at: [facility] [address] [place] [address] Lc Andrews MD Blood 03/29/2025 8:10 AM CDT 03/29/2025 8:11 AM CDT Rayne Rojo [facility] CHEMISTRY ORDERABLES Final Result Performing Organization Address [facility] Co de Phone Number [facility] [phone] [facility] [address] * IRON, TIBC, AND PERCENT SATURATION (03/29/2025 8:10 AM CDT) IRON 50 40 - 190 mcg/dL [facility] [facility] TIBC 287 250 - 450 mcg/dL (calc) [facility] IRON % SATURATION 17 16 - 45 % (calc) [facility] Comment: FASTING:NO FASTING: NO Test Performed at: [facility] [address] Lc Andrews MD Blood 03/29/2025 8:10 AM CDT 03/29/2025 8:11 AM CDT Rayne Rojo [facility] CHEMISTRY ORDERABLES Final Result Performing Organization Address [facility] de Phone Number [facility] [phone] [facility] [address] * VITAMIN D 25 HYDROXY (03/29/2025 8:10 AM CDT) VITAMIN D, 25 OH, TOTAL 55 30 - 100 ng/mL [facility] Comment: Vitamin D Status 25-OH Vitamin D: Deficiency: <20 ng/mL Insufficiency: 20 - 29 ng/mL Optimal: > or = 30 ng/mL For 25-OH Vitamin D testing on patients on D2-supplementation and patients for whom quantitation of D2 and D3 fractions is required, the QuestAssureD(TM) 25-OH VIT D, (D2,D3), LC/MS/MS is recommended: order code 27266 (patients >2yrs). See Note 1 Note 1 For additional information, please refer to http://education.2Win-Solutions/faq/ANB283 (This link is being provided for informational/ educational purposes only.) FASTING:NO FASTING: NO Test Performed at: [facility] [address] [facility] [place] [address] Lc Andrews MD Blood 03/29/2025 8:10 AM CDT 03/29/2025 8:11 AM CDT Rayne Rojo [facility] CHEMISTRY ORDERABLES Final Result Performing Organization Address City/State/ZIP Mi de Phone Number [facility] [phone] [facility] [place] [id number] [facility] [place] [address] * MAGNESIUM LEVEL (03/29/2025 8:10 AM CDT) Pathologist [facility] MAGNESIUM 1.9 1.5 - 2.5 mg/dL [facility] Comment: Test Performed at: [facility] [place] [address] [place] [address] Lc Andrews Blood 03/29/2025 8:10 AM CDT 03/29/2025 8:11 AM CDT Rayne ESPOSITOP CHEMISTRY ORDERABLES Final Result Performing Organization Address City/[facility]/ZIP [facility] Phone Number [facility] [phone] [place] [address] [place] [address] * HEMOGLOBIN A1C (03/29/2025 8:10 AM CDT) HEMOGLOBIN A1C 5.2 <5.7 % of total Hgb [facility] Comment: For the purpose of screening for the presence of diabetes: <5.7% Consistent with the absence of diabetes 5.7-6.4% Consistent with increased risk for diabetes (prediabetes) > or =6.5% Consistent with diabetes This assay result is consistent with a decreased risk of diabetes. Currently, no consensus exists regarding use of hemoglobin A1c for diagnosis of diabetes in children. According to [place] Diabetes Association (ADA) guidelines, hemoglobin A1c <7.0% represents optimal control in non- diabetic patients. Different metrics may apply to specific patient populations. Standards of Medical Care in Diabetes(ADA). ESTIMATED AVERAGE GLUCOSE (MG/DL) 103 mg/dL [facility] elvi Ramos ESTIMATED AVERAGE GLUCOSE (MMOL/L) 5.7 mmol/L [facility] Comment: FASTING:NO FASTING: NO Test Performed at: [place] [address] [place] [address] SusiJeanette Andrews Blood 03/29/2025 8:10 AM CDT 03/29/2025 8:11 AM CDT Rayne ESPOSITOP CHEMISTRY ORDERABLES Final Result [facility] [phone] [facility] [place] [address] [place] [address] * FERRITIN (03/29/2025 8:10 AM CDT) FERRITIN 32 16 - 154 ng/mL [facility] Comment: Test Performed at: [facility] [address] [place] [address] SusiJeanette Andrews MD Blood 03/29/2025 8:10 AM CDT 03/29/2025 8:11 AM CDT Rayne ESPOSITOP CHEMISTRY ORDERABLES Final Result Performing Organization Address City/State/ZIP Co va Phone Number [facility] [phone] [facility] [address] [place] [address] * CK (03/29/2025 8:10 AM CDT) CK 30 20 - 239 U/L [facility] MediaOsorio elvi Ramos Comment: Test Performed at: [place] [address] [place] [address] Lc Andrews Blood 03/29/2025 8:10 AM CDT 03/29/2025 8:11 AM CDT Rayne Rojo [facility] CHEMISTRY ORDERABLES Final Result [facility] [phone] [place] [address] [place] [address] * AMYLASE (03/29/2025 8:10 AM CDT) AMYLASE 28 21 - 101 U/L [facility] Comment: FASTING:NO FASTING: NO Test Performed at: [place] [address] [place] [address] SusiJeanette Andre Vo Blood 03/29/2025 8:10 AM CDT 03/29/2025 8:11 AM CDT Rayne Rojo [facility] CHEMISTRY ORDERABLES Final Result Performing Organization Address City/[facility]/ZIP Code Phone Number [facility] [phone] [place] [address] [address] [place] [address] from Last 3 Months Insurance [facility] MEDICAID AETNA OPEN CHOICE PPO STUDENT RESOURCES [id number] AETNA CHOICE POS II RX INFOCROSSING Medicaid RX [facility] [employer] RX [place] PLANS (INTERNAL) [facility] Plans [facility] MEDICAID AETNA OPEN CHOICE PPO Advance Directives For more information, please contact: [phone] * Full Code (Latest Code Status on File) Date Activated Date Inactivated Comments 09/14/2023 4:20 AM 09/18/2023 1:37 PM * Full Code Date Activated Date Inactivated Comments 09/07/2023 11:32 PM 09/13/2023 11:23 PM * Full Code Date Activated Date Inactivated Comments 08/06/2022 6:03 PM 08/11/2022 2:17 PM * Full Code Date Activated Date Inactivated Comments 12/11/2021 10:32 PM 12/14/2021 8:32 PM * Full Code Date Activated Date Inactivated Comments 10/03/2021 8:57 PM 10/10/2021 1:06 PM Care Teams Multimedia Services Coordinator Relationship Specialty Start Date End Date Kassy Jay MD [address] [facility] [address] [place] [facility] [place] [phone] PCP - General Family Practice 12/04/22
--- OUTSIDE RECORDS SUMMARY | 2025-06-14 18:23 | XMS_ITS | Clinical Summary ---
Author Organization [facility] Address [address] [place] [address] Care Team Providers Care Rotor Plate Washer Name Role Phone Kassy Jay MD Primary Care Provider [phone] No, Physician Unavailable Allergies Active Allergy Reactions Criticality Noted Date Comments Amoxicillin-Pot Clavulanate Hives,Stomach upset Medium 09/30/2018 Venom-Honey Bee Anaphylaxis High 07/20/2022 Cat Dander Anaphylaxis High 07/20/2022 Tree Nut Anaphylaxis High 09/30/2018 Medications albuterol HFA (PROVENTIL HFA,VENTOLIN HFA,PROAIR HFA) 90 mcg/actuation inhaler Inhale 2 puffs every 30 minutes as needed 0 Active famotidine (PEPCID) 20 mg tablet Take 20 mg by mouth 2 (two) times a day Active EPINEPHrine 0.3 mg/0.3 mL auto-injection syringeIndicati ons:Anaphylaxis Inject 1 Syringe into the muscle as instructed Active fluticasone propion-salmete roL (ADVAIR DISKUS) 250-50 mcg/dose diskus inhaler Inhale 1 puff every 12 hours 2 Active cetirizine (ZyrTEC) 10 mg tablet Take 10 mg by mouth daily [address] (CYMBALTA) 60 mg capsule Take 120 mg by mouth daily Take with 30mg for total of 90mg daily 2 Active gabapentin (NEURONTIN) 300 mg capsule Take 300 mg by mouth 2 (two) times a day 1 Active lamoTRIgine (LaMICtal) 200 mg tablet Take 200 mg by mouth 2 (two) times a day 1 Active lurasidone (LATUDA) 120 mg tablet Take 120 mg by mouth nightly 2 Active linaCLOtide (LINZESS) 145 mcg capsule Take 145 mcg by mouth daily before breakfast 2 Active montelukast (SINGULAIR) 10 mg tablet Take 10 mg by mouth daily 2 Active oxybutynin XL (DITROPAN-XL) 5 mg 24 hr tablet Take 5 mg by mouth daily [address] (PROTONIX) 40 mg EC tablet Take 40 mg by mouth nightly 2 Active prazosin (MINIPRESS) 2 mg capsule Take 4 mg by mouth nightly 2 Active topiramate (TOPAMAX) 100 mg tablet Take 100 mg by mouth nightly 2 Active levomefolate calcium 15 mg tablet Take 15 mg by mouth daily 2 Active Active Problems Problem Noted Date Diagnosed Date Psychogenic nonepileptic seizure 08/25/2022 Assessment & Plan (08/26/2022 1:10 PM ROADS SUPERINTENDENT): - pt presenting after shaking episode similar to previous episodes of psychogenic nonepileptic seizures. 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 - Admitted for Observation secondary to sedation. Back to baseline mental status today. Assessment & Plan (08/25/2022 10:54 PM ROADS SUPERINTENDENT): - pt presenting after shaking episode similar to previous episodes of psychogenic nonepileptic seizures. 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 - she is being admitted for observation given ongoing drowsiness. She was awake and able to answer questions on my exam although it appears she has been less interactive for previous providers. - highest concern that her decreased alertness is volitional as she has had different levels of interaction with different staff in similar time frames. She did receive IV benzodiazepines earlier so will monitor overnight and reassess mental status in AM. -Will hold several of her sedating medications as discussed below. Hyperprolactinemia 07/21/2022 Assessment & Plan (07/22/2022 9:01 AM CDT): 34 most recently. Likely 2/2 Latuda per endocrine Hypoglycemia 07/20/2022 Assessment & Plan (07/23/2022 2:36 PM CDT): Reports several episodes of hypoglycemia since April, was following with [facility]. Recently started on diazoxide. BG [...] sent hypoglycemia labs. Discussed with veronica, outpatient security auditor Dr. Mejia will f/u with results & further management. Endo to coordinate sending results to Dr. Mejia. Assessment & Plan (07/20/2022 8:32 PM CDT): -Possibly due to polypharmacy vs rare insulinoma. -Endocrine consulted, continue 72hr fasting protocol per endocrine, fasting started on 07/20/22 at 11AM. Continue home diazoxide. -Obtain ACTH stim test, Hb A1c in AM and fT4 in AM. Constipation 07/20/2022 Assessment & Plan (08/25/2022 10:40 PM ROADS SUPERINTENDENT): -cont linzess Assessment & Plan (07/21/2022 10:08 AM CDT): - Continue home Linzess and Colace Assessment & Plan (07/20/2022 8:31 PM CDT): -Continue home Linzess and Colace. Asthma 11/06/2020 Assessment & Plan (08/26/2022 1:11 PM ROADS SUPERINTENDENT): - stable, cont home inhalers Assessment & Plan (08/25/2022 10:41 PM ROADS SUPERINTENDENT): -cont home inhalers Gastroesophageal reflux disease 11/06/2020 Assessment & Plan (08/26/2022 1:11 PM ROADS SUPERINTENDENT): -cont pepcid and ppi Assessment & Plan (08/25/2022 10:40 PM ROADS SUPERINTENDENT): - cont pepcid and ppi Assessment & Plan (07/21/2022 10:00 AM CDT): - Patient reports on dual therapy with Pepcid and Pantoprazole, continue Assessment & Plan (07/20/2022 8:31 PM CDT): -Patient reports on dual therapy with Pepcid and Pantoprazole, continue while inpatient. Breakthrough bleeding associ ated with intrauterine device (IUD) 05/17/2020 Attention deficit hyperactiv ity disorder (ADHD), predominantly inattentive type 04/25/2020 Moderate episode of recurrent major depressive d isorder 04/25/2020 Dissociative convulsions 03/06/2020 Severe episode of recurrent major depressive disorder, without psychotic features 01/27/2020 Iron deficiency anemia 10/28/2018 Overview (05/17/2020): 10/09 start niferex Nonintractable epilepsy with complex partial seizures (CMS/HCC) 10/08/2018 Assessment & Plan (07/22/2022 9:01 AM CDT): Patient reports follows with [facility] psychiatry. Pharmacy list confirmed with patient. Concern of polypharmacy discussed with patient. - witnessed pseudoseizure 07/22 AM, VS stable and BG 111. No meds given. Self resolved. - Continue home Lamictal, Topomax and gabapentin Assessment & Plan (07/20/2022 8:27 PM CDT): -Patient reports follows with [facility] psychiatry. Pharmacy list confirmed with patient. Concern of polypharmacy discussed with patient. -Continue home Lamictal, Topomax and gabapentin. History of OCD (obsessive compulsive disorder) 1 10/25/2017 Cluster B personality disorder in adult (CMS/HCC ) 05/22/2018 Assessment & Plan (07/21/2022 10:00 AM CDT): - Continue home Latuda Assessment & Plan (07/20/2022 8:30 PM CDT): -Continue home Latuda. Atopic dermatitis 06/10/2017 Heart murmur 06/10/2017 History of anemia 06/10/2017 Generalized anxiety disorder 01/21/2017 Overview (05/17/2020): Overview: Overview: Dr. Bowles; on atarax and celexa Assessment & Plan (08/26/2022 1:11 PM ROADS SUPERINTENDENT): - patient with chart history of BARBIE, MDD, ptsd, and borderline personality disorder. - follows with psychiatrist and on extensive medication regimen. - cont home duloxetine, lurasidone, lamotrigine, and prazosin. - held several medications including nortriptyline, temazepam,clonazepam and gabapentin given drowsiness Assessment & Plan (08/25/2022 10:46 PM ROADS SUPERINTENDENT): - patient with chart history of BARBIE, MDD, ptsd, and borderline personality disorder. - follows with psychiatrist and on extensive medication regimen. - cont home duloxetine, lurasidone, lamotrigine, and prazosin. - holding several medications including nortriptyline, temazepam,clonazepam and gabapentin given drowsiness Assessment & Plan (07/21/2022 10:00 AM CDT): - Continue home duloxetine, nortriptyline, clonazepam, temazepam and prazosin Assessment & Plan (07/20/2022 8:29 PM CDT): -Continue home duloxetine, nortriptyline, clonazepam, temazepam and prazosin. Irregular menses 01/21/2017 Overview (05/17/2020): Overview: Overview: Thinks from [facility]; has follow up with 02/06/17 Asthma, moderate persistent 06/16/2011 Assessment & Plan (07/21/2022 9:59 AM CDT): Without acute exacerbation - substitute Breo to home Advair and albuterol prn. Assessment & Plan (07/20/2022 8:30 PM CDT): -Without acute exacerbation, substitute Breo to home Advair and albuterol prn. Allergic rhinitis 05/21/2005 Immunizations Immunization Administration Dates Next Due Influenza, Unspecified 06/20/2022 Surgical History Surgery Date Site/Laterality Comments NO PAST SURGERIES Medical History Medical History Date Comments Seizures (HCC) Nonepileptic BARBIE (generalized anxiety disorder) OCD (obsessive compulsive disorder) Pseudoseizure Asthma Borderline personality disorder (HCC) History of electroconvulsive therapy Family History Medical History Relation Name Comments No Known Problems Father No Known Problems Mother Relation Name Status Comments Father Mother Social History Tobacco Use Types Packs/Day Years Used Date Smoking Tobacco: Never Smokeless Tobacco: Never Tobacco Cessation:Counseling Given: Not Answered AUDIT-C Answer Date Recorded Q1: How often do you have a drink containing alcohol? Never 07/20/2022 Q2: How many drinks containi ng alcohol do you have on a typical day when you are drinking? Patient does not drink Q3: How often do you have si x or more drinks on one occasion? Never 07/20/2022 PHQ-2 Answer Date Recorded PHQ-2 Total Score (If total score is 3 or more points, staff should administer the PHQ-9) 6 08/25/2022 Comments No Sex and Gender Information Value Date Recorded Sex Assigned at Not on file Legal Sex Female 11:33 PM ROADS SUPERINTENDENT Gender Identity Female 05/17/2020 9:28 AM CDT Sexual Orientation Straight 05/17/2020 9: 28 AM CDT Obstetrics History Last Filed Vital Signs Vital Sign Reading Time Taken Comments Blood Pressure 106/54 08/26/2022 8:50 AM ROADS SUPERINTENDENT Pulse 92 08/26/2022 8:18 AM ROADS SUPERINTENDENT Temperature 36.6 C (97.9 F) 08/26/2022 8:18 AM ROADS SUPERINTENDENT Respiratory Rate 16 08/26/2022 8:18 AM ROADS SUPERINTENDENT Oxygen Saturation 97% 08/26/2022 8:18 AM ROADS SUPERINTENDENT Inhaled Oxygen Concentration - - Weight 93.4 kg (205 lb 14.4 oz) 022 11:06 PM ROADS SUPERINTENDENT Height 154.9 cm (5' 1) 08/25/2022 11:0 6 PM ROADS SUPERINTENDENT Body Mass Index 38.9 08/25/2022 11:06 PM ROADS SUPERINTENDENT Plan of Treatment Health Maintenance Due Date Last Done Comments Cervical Cancer Screening 1998 Hepatitis C Screening 1998 Regular Well Visit/Exam 18-64 02/26/2016 Pneumococcal vaccine <65 (1 of 2 - PCV) 2017 Depression Screening 08/25/2023 08/25/2022, 08/25/20 22 HPV Vaccines (1 - 3-dose SCD M series) 2025 Covid-19 Vaccine (4 - 2024-2 6 season) 2025 07/15/2021, 11/24/2020, 10/27/2020 Influenza Vaccine (#1) 2025 , 06/20/2022, 06/05/2022, Additional history exists DTaP/Tdap/Td Vaccine (10 - T d or Tdap) 05/16/2031 05/16/2021, 02/15/2020, 03/05/2011, Additional history exists Hepatitis B Screening Completed 1998 , 1998, 1998 Varicella Vaccines Completed 02/15/2016, 02/26/1999 Insurance BLUE [facility] CHOICE OOS [facility] CHOICE OOS Member Subscriber Plan / Payer (Ef fective 2017-Present) Name:Isaura Holland Relation to Subscriber:Child Name:AMALIAORIN Date of :[birth year]99 (Home) Address: [address] [place] [address] Payer ID:[id number] (NAIC) Type:[employer] Address: [address] BLUE [place] BLUE ACC CHOICE OOS [place]UE [place] Advance Directives For more information, please contact: [phone] * Full Code (Latest Code Status on File) Date Activated Date Inactivated Comments 08/25/2022 11:05 PM 08/26/2022 6:08 PM * Full Code Date Activated Date Inactivated Comments 07/20/2022 7:11 PM 07/23/2022 7:19 PM Care Teams Rotor Plate Washer Relationship Specialty Start Date End Date Kassy Jay MD [address] [place] [phone] PCP - General Family Practice 07/21/22 No, Physician 08/26/22
--- OUTSIDE RECORDS SUMMARY | 2025-06-14 18:23 | XMS_ITS | Encounter Summary ---
Author Organization [facility] Address [address] [place] [address] Care Team Providers Care Screen Making Technician Name Role Phone Kassy Jay MD Primary Care Provider [phone] Encounter Details Date Type Department Care Team (Late Contact Info) Description 12/06/2007 Outpatient Historical [facility] Pediatrics - [facility] [address] [place] [address] [place] [address] [place] [address] Social History Tobacco Use Types Packs/Day Years Used Date Smoking Tobacco: Never Assessed Comments Unknown Sex and Gender Information Value Date Recorded Sex Assigned at Not on file Legal Sex Female 4:02 AM ORNITHOLOGY TEACHER Gender Identity Not on file Sexual Orientation Not on file documented as of this encounter Plan of Treatment Upcoming Encounters Date Type Department Care Team (Late Contact Info) Description 06/26/2025 9:00 AM CDT Video Visit [facility] Adult Psychiatry [place] [address] [phone] Argelia Law NP [address] [address] 08/08/2025 7:30 AM ORNITHOLOGY TEACHER Video Visit [facility] Adult Psychiatry [place] [address] [place] [address] [address] [place] [address] Argelia Law NP [address] [facility] [address] [place] [address] 09/25/2025 8:00 AM ORNITHOLOGY TEACHER Office Visit [facility] Primary Care - [place] [address] [place] [address] Kassy Jay MD [address] [place] [address] documented as of this encounter Visit Diagnoses Not on filedocumented in this encounter Additional Health Concerns Infection Onset Date Last Indicated Resolved Time R/O COVID-19 06/02/2021 06/03/2021 06/03/2021 7:34 PM CDT R/O COVID-19 12/22/2022 12/22/2022 12/22/2022 12:2 5 PM CDT R/O COVID-19 09/07/2023 09/07/2023 09/07/2023 9:52 PM ORNITHOLOGY TEACHER documented as of this encounter Care Teams Screen Making Technician Relationship Specialty Start Date End Date Kassy Jay MD [address] [place] [phone] PCP - General Family Practice 12/04/22 documented as of this encounter
[2025-06-14 18:42] VITALS: BP 93/56; PULSE 63; RESP 12; O2SAT 98
== END 2025-06-14 18:47 | disposition home or self-care (01) ==
PROVIDERS: Emergency Provider Emergency Medicine
DX: R56.9 Unspecified convulsions (principal)
CPT/HCPCS: 82948; 99282

== ENCOUNTER 2025-06-16 08:45 | Emergency (ER) | payer OTHER, MEDICAID, SELFPAY ==
--- NOTE | ~2025-06-16 | CT_ITS ---
EXAMINATION: CT brain wo con DATE: 06/16/2025 09:21 INDICATION: Head injury TECHNIQUE: Computed tomography (CT) of the head was performed without intravenous contrast. The dose-length product was 529.67 mGy-cm. COMPARISON: None FINDINGS: No acute intracranial hemorrhage. No mass effect. No midline shift. No hydrocephalus. No skull fracture. Visualized paranasal sinuses mastoid air cells are clear. IMPRESSION: 1. No acute intracranial hemorrhage. No mass effect. Reviewed, dictated and finalized at location Q.
[2025-06-16 08:48] VITALS: BP 136/85; PULSE 75; RESP 18; TEMP 36.8; O2SAT 100
--- OUTSIDE RECORDS SUMMARY | 2025-06-16 09:19 | XMS_ITS | Encounter Summary ---
Author Organization [facility] Address [address] [place] [address] Care Team Providers Care Magistrate Name Role Phone Kassy Jay MD Primary Care Provider [phone] Encounter Details Date Type Department Care Team (Late Contact Info) Description 09/02/2004 Outpatient Historical [facility] Pediatrics - [facility] [address] [place] [address] [place] [address] [address] [place] [address] Social History Tobacco Use Types Packs/Day Years Used Date Smoking Tobacco: Never Assessed Comments Unknown Sex and Gender Information Value Date Recorded Sex Assigned at Not on file Legal Sex Female 4:02 AM WATER COMMISSIONER Gender Identity Not on file Sexual Orientation Not on file documented as of this encounter Plan of Treatment Upcoming Encounters Date Type Department Care Team (Late Contact Info) Description 06/26/2025 9:00 AM CDT Video Visit [facility] Adult Psychiatry [place] [address] [phone] Argelia Law NP [address] [address] 08/08/2025 7:30 AM WATER COMMISSIONER Video Visit [facility] Adult Psychiatry [place] [address] [place] [address] [address] [place] [address] Argelia Law NP [address] [facility] [address] [place] [address] 09/25/2025 8:00 AM WATER COMMISSIONER Office Visit [facility] Primary Care - [place] [address] [place] [address] Kassy Jay MD [address] [place] [address] documented as of this encounter Visit Diagnoses Not on filedocumented in this encounter Additional Health Concerns Infection Onset Date Last Indicated Resolved Time R/O COVID-19 06/02/2021 06/03/2021 06/03/2021 7:34 PM CDT R/O COVID-19 12/22/2022 12/22/2022 12/22/2022 12:2 5 PM CDT R/O COVID-19 09/07/2023 09/07/2023 09/07/2023 9:52 PM WATER COMMISSIONER documented as of this encounter Care Teams Magistrate Relationship Specialty Start Date End Date Kassy Jay MD [address] [place] [phone] PCP - General Family Practice 12/04/22 documented as of this encounter
--- OUTSIDE RECORDS SUMMARY | 2025-06-16 09:20 | XMS_ITS | Encounter Summary ---
Author Organization [facility] Address [address] [place] [address] Care Team Providers Care Slope Hoist Operator Name Role Phone Kassy Jay MD Primary Care Provider [phone] Encounter Details Date Type Department Care Team ([facility] Contact Info) Description 04/19/2007 Outpatient Historical [facility] - [facility] [address] [facility] [address] [place] [address] [place] [address] [facility] [address] [place] [address] Social History Tobacco Use Types Packs/Day Years Used Date Smoking Tobacco: Never Assessed Comments Unknown Sex and Gender Information Value Date Recorded Sex Assigned at Not on file Legal Sex Female 4:02 AM CROSSBAND LAYER Gender Identity Not on file Sexual Orientation [...] Upcoming Encounters Date Type Department Care Team ([facility] Contact Info) Description 06/26/2025 9:00 AM CDT Video Visit [facility] Adult [facility]ry [place] [address] [address] [place] [address] Argelia Law, ARAMIS [address] [address] [place] [address] 08/08/2025 7:30 AM CROSSBAND LAYER Video Visit [facility] Adult [facility] [place] [address] [address] [place] [address] Argelia Law, ARAMIS [address] [address] [place] [address] 09/25/2025 8:00 AM CROSSBAND LAYER Office Visit [facility] Primary Care - Kirby Herrmann [address] [place] [address] [address] Kassy Jay MD [address] [place] [address] documented as of this encounter Visit Diagnoses Not on filedocumented in this encounter Additional Health Concerns Infection Onset Date Last Indicated Resolved Time R/O COVID-19 06/02/2021 06/03/2021 06/03/2021 7:34 PM CDT R/O COVID-19 12/22/2022 12/22/2022 12/22/2022 12:2 5 PM CDT R/O COVID-19 09/07/2023 09/07/2023 09/07/2023 9:52 PM CROSSBAND LAYER documented as of this encounter Care Teams Slope Hoist Operator Relationship Specialty Start Date End Date Kassy Jay MD [address] [place] [address] PCP - General Family Practice 12/04/22 documented as of this encounter
--- OUTSIDE RECORDS SUMMARY | 2025-06-16 09:20 | XMS_ITS | Encounter Summary ---
Author Organization [facility] Address [address] [place] [address] Care Team Providers Care Core Driller Helper Name Role Phone Kassy Jay MD Primary Care Provider [phone] Encounter Details Date Type Department Care Team (Late Contact Info) Description 04/13/2002 Outpatient Historical [facility] Pediatrics - [facility] [address] [facility] [address] [place] [address] [place] [address] [facility] [address] [place] [address] Social History Tobacco Use Types Packs/Day Years Used Date Smoking Tobacco: Never Assessed Comments Unknown Sex and Gender Information Value Date Recorded Sex Assigned at Not on file Legal Sex Female 4:02 AM ARMORED SERVICE TECHNICIAN Gender Identity Not on file Sexual Orientation Not on file documented as of this encounter Plan of Treatment Upcoming Encounters Date Type Department Care Team (Late Contact Info) Description 06/26/2025 9:00 AM CDT Video Visit [facility] Adult Psychiatry [place] [address] [address] Argelia Law NP [address] [address] 08/08/2025 7:30 AM ARMORED SERVICE TECHNICIAN Video Visit [facility] Adult Psychiatry [place] [address] [address] [place] [address] Argelia Law NP 1420 [facility] [address] [place] [address] 09/25/2025 8:00 AM ARMORED SERVICE TECHNICIAN Office Visit [facility] Primary Care - Kirby Herrmann [address] [place] [address] [address] Kassy Jay MD [address] [place] [address] documented as of this encounter Visit Diagnoses Not on filedocumented in this encounter Additional Health Concerns Infection Onset Date Last Indicated Resolved Time R/O COVID-19 06/02/2021 06/03/2021 06/03/2021 7:34 PM CDT R/O COVID-19 12/22/2022 12/22/2022 12/22/2022 12:2 5 PM CDT R/O COVID-19 09/07/2023 09/07/2023 09/07/2023 9:52 PM ARMORED SERVICE TECHNICIAN documented as of this encounter Care Teams Core Driller Helper Relationship Specialty Start Date End Date Kassy Jay MD [address] [place] [address] [address] PCP - General Family Practice 12/04/22 documented as of this encounter
--- OUTSIDE RECORDS SUMMARY | 2025-06-16 09:20 | XMS_ITS | Encounter Summary ---
Author Organization [facility] Address [address] [place] [address] Care Team Providers Care Cardiology Tech Name Role Phone Kassy Jay MD Primary Care Provider [phone] Encounter Details Date Type Department Care Team (Latest Contact Info) Description 10/09/2003 Outpatient Historical [facility] Gustavo Sims ASTHMA UNSPECIFIED (Primary Dx) Social History Tobacco Use Types Packs/Day Years Used Date Smoking Tobacco: Never Assessed Comments Unknown Sex and Gender Information Value Date Recorded Sex Assigned at Not on file Legal Sex Female 4:02 AM DATABASE DEVELOPMENT PROJECT MANAGER Gender Identity Not on file Sexual Orientation Not on file documented as of this encounter Plan of Treatment Upcoming Encounters Date Type Department Care Team (Late st Contact Info) Description 06/26/2025 9:00 AM CDT Video Visit [facility] Adult Psychiatry [address] [place] [address] Argelia Law NP [address] [place] [address] [place] [address] 08/08/2025 7:30 AM DATABASE DEVELOPMENT PROJECT MANAGER Video Visit [facility] Adult Psychiatry [address] [place] [address] Argelia Law NP [address] [place] [address] [place] [address] 09/25/2025 8:00 AM DATABASE DEVELOPMENT PROJECT MANAGER Office Visit [facility] Primary Care - Kirby Herrmann [address] [place] [place] [phone] Kassy Jay MD [address] [place] [phone] documented as of this encounter Visit Diagnoses Diagnosis Unspecified asthma(493.90)- Primary Unspecified asthma documented in this encounter Additional Health Concerns Infection Onset Date Last Indicated Resolved Time R/O COVID-19 06/02/2021 06/03/2021 06/03/2021 7:34 PM CDT R/O COVID-19 12/22/2022 12/22/2022 12/22/2022 12:2 5 PM CDT R/O COVID-19 09/07/2023 09/07/2023 09/07/2023 9:52 PM DATABASE DEVELOPMENT PROJECT MANAGER documented as of this encounter Care Teams Cardiology Tech Relationship Specialty Start Date End Date Kassy Jay MD [address] [place] [phone] PCP - General Family Practice 12/04/22 documented as of this encounter
--- OUTSIDE RECORDS SUMMARY | 2025-06-16 09:20 | XMS_ITS | Encounter Summary ---
Author Organization [facility] Address [address] [place] [address] Care Team Providers Care Polymer Chemist Name Role Phone Kassy Jay MD Primary Care Provider [phone] Encounter Details Date Type Department Care Team (Late Contact Info) Description 06/30/2007 Outpatient Historical [facility] Pediatrics - [facility] [address] [facility] [address] [place] [address] [place] [address] [address] [place] [address] Social History Tobacco Use Types Packs/Day Years Used Date Smoking Tobacco: Never Assessed Comments Unknown Sex and Gender Information Value Date Recorded Sex Assigned at Not on file Legal Sex Female 4:02 AM FLAT SURFACER JEWEL Gender Identity Not on file Sexual Orientation Not on file documented as of this encounter Plan of Treatment Upcoming Encounters Date Type Department Care Team (Late Contact Info) Description 06/26/2025 9:00 AM CDT Video Visit [facility] Adult Psychiatry [place] [address] [phone] Argelia Law NP [address] [address] 08/08/2025 7:30 AM FLAT SURFACER JEWEL Video Visit [facility] Adult Psychiatry [place] [address] [address] [place] [address] Argelia Law NP 1420 [facility] [address] [place] [address] 09/25/2025 8:00 AM FLAT SURFACER JEWEL Office Visit [facility] Primary Care - Kirby Herrmann [address] [place] [address] Kassy Jay MD [address] [place] [address] [address] documented as of this encounter Visit Diagnoses Not on filedocumented in this encounter Additional Health Concerns Infection Onset Date Last Indicated Resolved Time R/O COVID-19 06/02/2021 06/03/2021 06/03/2021 7:34 PM CDT R/O COVID-19 12/22/2022 12/22/2022 12/22/2022 12:2 5 PM CDT R/O COVID-19 09/07/2023 09/07/2023 09/07/2023 9:52 PM FLAT SURFACER JEWEL documented as of this encounter Care Teams Polymer Chemist Relationship Specialty Start Date End Date Kassy Jay MD [address] [place] [address] [phone] PCP - General Family Practice 12/04/22 documented as of this encounter
--- OUTSIDE RECORDS SUMMARY | 2025-06-16 09:20 | XMS_ITS | Encounter Summary ---
Author Organization [facility] Address [address] [place] [address] Care Team Providers Care Agile Developer Name Role Phone Kassy Jay MD Primary Care Provider [phone] Encounter Details Date Type Department Care Team (Late Contact Info) Description 10/20/2001 Outpatient Historical [facility] Pediatrics - [facility] [address] [facility] [address] [place] [address] [place] [address] [facility] [facility] [facility] [address] [place] [address] Social History Tobacco Use Types Packs/Day Years Used Date Smoking Tobacco: Never Assessed Comments Unknown Sex and Gender Information Value Date Recorded Sex Assigned at Not on file Legal Sex Female 4:02 AM HOT ROOM ATTENDANT Gender Identity Not on file Sexual Orientation Not on file documented as of this encounter Plan of Treatment Upcoming Encounters Date Type Department Care Team (Late Contact Info) Description 06/26/2025 9:00 AM CDT Video Visit [facility] Adult Psychiatry [place] [address] [address] Argelia Law NP [address] [address] 08/08/2025 7:30 AM HOT ROOM ATTENDANT Video Visit [facility] Adult Psychiatry [place] [address] [address] [place] [address] Argelia Law NP 1420 [facility] [address] [place] [address] 09/25/2025 8:00 AM HOT ROOM ATTENDANT Office Visit [facility] Primary Care - Kirby Herrmann [address] [place] [address] [address] Kassy Jay MD [address] [place] [address] documented as of this encounter Visit Diagnoses Not on filedocumented in this encounter Additional Health Concerns Infection Onset Date Last Indicated Resolved Time R/O COVID-19 06/02/2021 06/03/2021 06/03/2021 7:34 PM CDT R/O COVID-19 12/22/2022 12/22/2022 12/22/2022 12:2 5 PM CDT R/O COVID-19 09/07/2023 09/07/2023 09/07/2023 9:52 PM HOT ROOM ATTENDANT documented as of this encounter Care Teams Agile Developer Relationship Specialty Start Date End Date Kassy Jay MD [address] [place] [address] [address] PCP - General Family Practice 12/04/22 documented as of this encounter
--- OUTSIDE RECORDS SUMMARY | 2025-06-16 09:20 | XMS_ITS | Encounter Summary ---
Author Organization [facility] Address [address] [place] [address] Care Team Providers Care Regional Tanker Truck Driver Name Role Phone Kasys Jay MD Primary Care Provider [phone] Encounter Details Date Type Department Care Team (Late Contact Info) Description 11/08/2004 Outpatient Historical [facility] Pediatrics - [facility] [address] [place] [address] [place] [address] [address] [address] [facility] [address] [place] [address] Social History Tobacco Use Types Packs/Day Years Used Date Smoking Tobacco: Never Assessed Comments Unknown Sex and Gender Information Value Date Recorded Sex Assigned at Not on file Legal Sex Female 4:02 AM OUTSOLE TACKER Gender Identity Not on file Sexual Orientation Not on file documented as of this encounter Plan of Treatment Upcoming Encounters Date Type Department Care Team (Late Contact Info) Description 06/26/2025 9:00 AM CDT Video Visit [facility] Adult Psychiatry [place] [address] [phone] Argelia Law NP [address] [address] 08/08/2025 7:30 AM OUTSOLE TACKER Video Visit [facility] Adult Psychiatry [place] [address] [address] [place] [address] Argelia Law NP 1420 [facility] [address] [place] [address] 09/25/2025 8:00 AM OUTSOLE TACKER Office Visit [facility] Primary Care - Kirby Herrmann [address] [place] [address] [address] Kassy Jay MD [address] [place] [address] documented as of this encounter Visit Diagnoses Not on filedocumented in this encounter Additional Health Concerns Infection Onset Date Last Indicated Resolved Time R/O COVID-19 06/02/2021 06/03/2021 06/03/2021 7:34 PM CDT R/O COVID-19 12/22/2022 12/22/2022 12/22/2022 12:2 5 PM CDT R/O COVID-19 09/07/2023 09/07/2023 09/07/2023 9:52 PM OUTSOLE TACKER documented as of this encounter Care Teams Regional Tanker Truck Driver Relationship Specialty Start Date End Date Kassy Jay MD [address] [place] [address] [address] PCP - General Family Practice 12/04/22 documented as of this encounter
--- OUTSIDE RECORDS SUMMARY | 2025-06-16 09:20 | XMS_ITS | Encounter Summary ---
Author Organization [facility] Address [address] [place] [address] Care Team Providers Care Senior Devops Engineer Name Role Phone Kassy Jay MD Primary Care Provider [phone] Encounter Details Date Type Department Care Team (Late Contact Info) Description 03/15/2002 Outpatient Historical [facility] Pediatrics - [facility] [address] [facility] [address] [place] [address] [place] [address] [place] [address] Social History Tobacco Use Types Packs/Day Years Used Date Smoking Tobacco: Never Assessed Comments Unknown Sex and Gender Information Value Date Recorded Sex Assigned at Not on file Legal Sex Female 4:02 AM FISHING GUIDE Gender Identity Not on file Sexual Orientation Not on file documented as of this encounter Plan of Treatment Upcoming Encounters Date Type Department Care Team (Late Contact Info) Description 06/26/2025 9:00 AM CDT Video Visit [facility] Adult Psychiatry [place] [address] [phone] Argelia Law NP [address] [address] 08/08/2025 7:30 AM FISHING GUIDE Video Visit [facility] Adult Psychiatry [place] [address] [address] [place] [address] Argelia Law NP 1420 [facility] [address] [place] [address] 09/25/2025 8:00 AM FISHING GUIDE Office Visit [facility] Primary Care - Kirby Herrmann [address] [place] [address] Kassy Jay MD [address] [place] [address] [address] documented as of this encounter Visit Diagnoses Not on filedocumented in this encounter Additional Health Concerns Infection Onset Date Last Indicated Resolved Time R/O COVID-19 06/02/2021 06/03/2021 06/03/2021 7:34 PM CDT R/O COVID-19 12/22/2022 12/22/2022 12/22/2022 12:2 5 PM CDT R/O COVID-19 09/07/2023 09/07/2023 09/07/2023 9:52 PM FISHING GUIDE documented as of this encounter Care Teams Senior Devops Engineer Relationship Specialty Start Date End Date Kassy Jay MD [address] [place] [address] [phone] PCP - General Family Practice 12/04/22 documented as of this encounter
--- OUTSIDE RECORDS SUMMARY | 2025-06-16 09:20 | XMS_ITS | Encounter Summary ---
Author Organization [facility] Address [address] [place] [address] Care Team Providers Care Electronic Coils Supervisor Name Role Phone Kassy Jay MD Primary Care Provider [phone] Encounter Details Date Type Department Care Team (Late Contact Info) Description 09/30/2002 Outpatient Historical [facility] Pediatrics - [facility] [address] [facility] [address] [facility] [address] [place] [address] [place] [address] [place] [address] Social History Tobacco Use Types Packs/Day Years Used Date Smoking Tobacco: Never Assessed Comments Unknown Sex and Gender Information Value Date Recorded Sex Assigned at Not on file Legal Sex Female 4:02 AM MIDDLEWARE CONSULTANT Gender Identity Not on file Sexual Orientation Not on file documented as of this encounter Plan of Treatment Upcoming Encounters Date Type Department Care Team (Late Contact Info) Description 06/26/2025 9:00 AM CDT Video Visit [facility] Adult Psychiatry [place] [address] [address] Argelia Law NP [address] [address] 08/08/2025 7:30 AM MIDDLEWARE CONSULTANT Video Visit [facility] Adult Psychiatry [place] [address] [address] [place] [address] Argelia Law NP 1420 [facility] [address] [place] [address] 09/25/2025 8:00 AM MIDDLEWARE CONSULTANT Office Visit [facility] Primary Care - Kirby Herrmann [address] [place] [address] Kassy Jay MD [address] [place] [address] documented as of this encounter Visit Diagnoses Not on filedocumented in this encounter Additional Health Concerns Infection Onset Date Last Indicated Resolved Time R/O COVID-19 06/02/2021 06/03/2021 06/03/2021 7:34 PM CDT R/O COVID-19 12/22/2022 12/22/2022 12/22/2022 12:2 5 PM CDT R/O COVID-19 09/07/2023 09/07/2023 09/07/2023 9:52 PM MIDDLEWARE CONSULTANT documented as of this encounter Care Teams Electronic Coils Supervisor Relationship Specialty Start Date End Date Kassy Jay MD [address] [place] [address] [address] PCP - General Family Practice 12/04/22 documented as of this encounter
--- OUTSIDE RECORDS SUMMARY | 2025-06-16 09:20 | XMS_ITS | Encounter Summary ---
Author Organization [facility] Address [address] [place] [address] Care Team Providers Care Reinsurance Accountant Name Role Phone Kassy Jay MD Primary Care Provider [phone] Encounter Details Date Type Department Care Team (Late Contact Info) Description 08/01/2003 Outpatient Historical [facility] Pediatrics - [facility] [address] [facility] [address] [place] [address] [place] [address] [facility] [place] [address] Social History Tobacco Use Types Packs/Day Years Used Date Smoking Tobacco: Never Assessed Comments Unknown Sex and Gender Information Value Date Recorded Sex Assigned at Not on file Legal Sex Female 4:02 AM LYFT DRIVER Gender Identity Not on file Sexual Orientation Not on file documented as of this encounter Plan of Treatment Upcoming Encounters Date Type Department Care Team (Late Contact Info) Description 06/26/2025 9:00 AM CDT Video Visit [facility] Adult Psychiatry [place] [address] [address] Argelia Law NP [address] [address] 08/08/2025 7:30 AM LYFT DRIVER Video Visit [facility] Adult Psychiatry [place] [address] [address] [place] [address] Argelia Law NP 1420 [facility] [address] [place] [address] 09/25/2025 8:00 AM LYFT DRIVER Office Visit [facility] Primary Care - Kirby Herrmann [address] [address] [address] Kassy Jay MD [address] [place] [address] [address] documented as of this encounter Visit Diagnoses Not on filedocumented in this encounter Additional Health Concerns Infection Onset Date Last Indicated Resolved Time R/O COVID-19 06/02/2021 06/03/2021 06/03/2021 7:34 PM CDT R/O COVID-19 12/22/2022 12/22/2022 12/22/2022 12:2 5 PM CDT R/O COVID-19 09/07/2023 09/07/2023 09/07/2023 9:52 PM LYFT DRIVER documented as of this encounter Care Teams Reinsurance Accountant Relationship Specialty Start Date End Date Kassy Jay MD [address] [place] [address] [phone] PCP - General Family Practice 12/04/22 documented as of this encounter
--- OUTSIDE RECORDS SUMMARY | 2025-06-16 09:20 | XMS_ITS | Encounter Summary ---
Author Organization [facility] Address [address] [place] [address] Care Team Providers Care Distance Learning Program Coordinator Name Role Phone Kassy Jay MD Primary Care Provider [phone] Encounter Details Date Type Department Care Team ([facility] Contact Info) Description 05/09/2004 Outpatient Historical [facility] - [facility] [address] [facility] [address] [place] [address] Garrett Mittal MD [address] [facility] [address] [place] [address] Social History Tobacco Use Types Packs/Day Years Used Date Smoking Tobacco: Never Assessed Comments Unknown Sex and Gender Information Value Date Recorded Sex Assigned at Not on file Legal Sex Female 4:02 AM ACCOUNTANT COST Gender Identity Not on file Sexual Orientation [...] [facility] [place] [address] [address] [place] [address] Thanh, Argelia Lopez, [place] [address] [address] [place] [address] 08/08/2025 7:30 AM ACCOUNTANT COST Video Visit [facility] Adult [facility]iatry [place] [address] [address] [place] [address] Thanh, Argelia oLpez NP [address] [address] [place] [address] 09/25/2025 8:00 AM ACCOUNTANT COST [facility] Visit [facility] Primary Care - Kirby Herrmann [address] [place] [address] [address] Kassy Jay MD [address] [place] [address] documented as of this encounter Visit Diagnoses Not on filedocumented in this encounter Additional Health Concerns Infection Onset Date Last Indicated Resolved Time R/O COVID-19 06/02/2021 06/03/2021 06/03/2021 7:34 PM CDT R/O COVID-19 12/22/2022 12/22/2022 12/22/2022 12:2 5 PM CDT R/O COVID-19 09/07/2023 09/07/2023 09/07/2023 9:52 PM ACCOUNTANT COST documented as of this encounter Care Teams Distance Learning Program Coordinator Relationship Specialty Start Date End Date Kassy Jay MD [address] [place] [phone] PCP - General Family Practice 12/04/22 documented as of this encounter
--- OUTSIDE RECORDS SUMMARY | 2025-06-16 09:20 | XMS_ITS | Encounter Summary ---
Author Organization [facility] Address [address] [place] [address] Care Team Providers Care Belt Builder Helper Name Role Phone Kassy Jay MD Primary Care Provider [phone] Encounter Details Date Type Department Care Team (Late Contact Info) Description 02/10/2003 Outpatient Historical [facility] Pediatrics - [facility] [address] [place] [address] [place] [address] [place] [address] Social History Tobacco Use Types Packs/Day Years Used Date Smoking Tobacco: Never Assessed Comments Unknown Sex and Gender Information Value Date Recorded Sex Assigned at Not on file Legal Sex Female 4:02 AM HOOP PUNCH OPERATOR HELPER Gender Identity Not on file Sexual Orientation Not on file documented as of this encounter Plan of Treatment Upcoming Encounters Date Type Department Care Team (Late Contact Info) Description 06/26/2025 9:00 AM CDT Video Visit [facility] Adult Psychiatry [place] [address] [phone] Argelia Law NP [address] [address] 08/08/2025 7:30 AM HOOP PUNCH OPERATOR HELPER Video Visit [facility] Adult Psychiatry [place] [address] [place] [address] [address] [address] [phone] Argelia Law NP 1420 [facility] [address] [address] 09/25/2025 8:00 AM HOOP PUNCH OPERATOR HELPER Office Visit [facility] Primary Care - Kirby Herr[place] [address] [place] [address] Kassy Jay MD [address] [place] [address] documented as of this encounter Visit Diagnoses Not on filedocumented in this encounter Additional Health Concerns Infection Onset Date Last Indicated Resolved Time R/O COVID-19 06/02/2021 06/03/2021 06/03/2021 7:34 PM CDT R/O COVID-19 12/22/2022 12/22/2022 12/22/2022 12:2 5 PM CDT R/O COVID-19 09/07/2023 09/07/2023 09/07/2023 9:52 PM HOOP PUNCH OPERATOR HELPER documented as of this encounter Care Teams Belt Builder Helper Relationship Specialty Start Date End Date Kassy Jay MD [address] [place] [phone] PCP - General Family Practice 12/04/22 documented as of this encounter
--- OUTSIDE RECORDS SUMMARY | 2025-06-16 09:20 | XMS_ITS | Encounter Summary ---
Author Organization [facility] Address [address] [place] [address] Care Team Providers Care Shirt Marker Name Role Phone Kassy Jay MD Primary Care Provider Encounter Details Date Type Department Care Team (Late Contact Info) Description 12/05/2002 Outpatient Historical [facility] Childrens Res[facility] Medicine [address] [facility] [address] [address] Gustavo Sims Social History Tobacco Use Types Packs/Day Years Used Date Smoking Tobacco: Never Assessed Comments Unknown Sex and Gender Information Value Date Recorded Sex Assigned at Not on file Legal Sex Female 4:02 AM NATURAL GAS PLANT SUPERVISOR Gender Identity Not on file Sexual Orientation Not on file documented as of this encounter Plan of Treatment Upcoming Encounters Date Type Department Care Team ([facility] Contact Info) Description 06/26/2025 9:00 AM CDT Video Visit [facility] Adult Psychiatry [address] [phone] Argelia Law NP [address] [place] [address] 08/08/2025 7:30 AM NATURAL GAS PLANT SUPERVISOR Video Visit [facility] Adult Psychiatry [address] [phone] Argelia Law NP [address] [place] [address] [place] [address] 09/25/2025 8:00 AM NATURAL GAS PLANT SUPERVISOR Office Visit [facility] Primary Care - Kirby Herrmann [address] [place] [address] Kassy Jay MD [address] [place] [address] documented as of this encounter Visit Diagnoses Not on filedocumented in this encounter Additional Health Concerns Infection Onset Date Last Indicated Resolved Time R/O COVID-19 06/02/2021 06/03/2021 06/03/2021 7:34 PM CDT R/O COVID-19 12/22/2022 12/22/2022 12/22/2022 12:2 5 PM CDT R/O COVID-19 09/07/2023 09/07/2023 09/07/2023 9:52 PM NATURAL GAS PLANT SUPERVISOR documented as of this encounter Care Teams Shirt Marker Relationship Specialty Start Date End Date Kassy Jay MD [address] [phone] PCP - General Family Practice 12/04/22 documented as of this encounter
--- OUTSIDE RECORDS SUMMARY | 2025-06-16 09:20 | XMS_ITS | Encounter Summary ---
Author Organization [facility] Address [address] [place] [address] Care Team Providers Care Conche Loader And Unloader Name Role Phone Kassy Jay MD Primary Care Provider [phone] Encounter Details Date Type Department Care Team (Late Contact Info) Description 04/21/2003 Outpatient Historical [facility] Pediatrics - [facility] [address] [address] [facility] [address] [place] [address] [place] [address] [place] [address] Social History Tobacco Use Types Packs/Day Years Used Date Smoking Tobacco: Never Assessed Comments Unknown Sex and Gender Information Value Date Recorded Sex Assigned at Not on file Legal Sex Female 4:02 AM SILVICULTURE FORESTER Gender Identity Not on file Sexual Orientation Not on file documented as of this encounter Plan of Treatment Upcoming Encounters Date Type Department Care Team (Late Contact Info) Description 06/26/2025 9:00 AM CDT Video Visit [facility] Adult Psychiatry [place] [address] [phone] Argelia Law NP [address] [address] 08/08/2025 7:30 AM SILVICULTURE FORESTER Video Visit [facility] Adult Psychiatry [place] [address] [place] [address] [address] [address] Argelia Law NP 1420 [facility] [address] [place] [address] 09/25/2025 8:00 AM SILVICULTURE FORESTER Office Visit [facility] Primary Care - Kirby Herrmann [address] [place] [address] [address] Kassy Jay MD [address] [place] [address] [address] documented as of this encounter Visit Diagnoses Not on filedocumented in this encounter Additional Health Concerns Infection Onset Date Last Indicated Resolved Time R/O COVID-19 06/02/2021 06/03/2021 06/03/2021 7:34 PM CDT R/O COVID-19 12/22/2022 12/22/2022 12/22/2022 12:2 5 PM CDT R/O COVID-19 09/07/2023 09/07/2023 09/07/2023 9:52 PM SILVICULTURE FORESTER documented as of this encounter Care Teams Conche Loader And Unloader Relationship Specialty Start Date End Date Kassy Jay MD [address] [place] [address] [phone] PCP - General Family Practice 12/04/22 documented as of this encounter
--- OUTSIDE RECORDS SUMMARY | 2025-06-16 09:20 | XMS_ITS | Encounter Summary ---
Author Organization [facility] Address [address] [place] [address] Care Team Providers Care Bee Keeper Name Role Phone Kassy Jay MD Primary Care Provider [phone] Encounter Details Date Type Department Care Team (Late Contact Info) Description 08/23/2001 Outpatient Historical [facility] Pediatrics - [facility] [address] [facility] [facility] [address] [place] [address] [place] [address] [place] [address] Social History Tobacco Use Types Packs/Day Years Used Date Smoking Tobacco: Never Assessed Comments Unknown Sex and Gender Information Value Date Recorded Sex Assigned at Not on file Legal Sex Female 4:02 AM TERRITORY MANAGER GENERAL SALES Gender Identity Not on file Sexual Orientation Not on file documented as of this encounter Plan of Treatment Upcoming Encounters Date Type Department Care Team (Late Contact Info) Description 06/26/2025 9:00 AM CDT Video Visit [facility] Adult Psychiatry [place] [address] [phone] Argelia Law NP [address] [address] 08/08/2025 7:30 AM TERRITORY MANAGER GENERAL SALES Video Visit [facility] Adult Psychiatry [place] [address] [place] [address] [address] [place] [address] Argelia Law NP 1420 [facility] [address] [place] [address] 09/25/2025 8:00 AM TERRITORY MANAGER GENERAL SALES Office Visit [facility] Primary Care - Kirby Herrmann [address] [address] [address] Kassy Jay MD [address] [place] [address] documented as of this encounter Visit Diagnoses Not on filedocumented in this encounter Additional Health Concerns Infection Onset Date Last Indicated Resolved Time R/O COVID-19 06/02/2021 06/03/2021 06/03/2021 7:34 PM CDT R/O COVID-19 12/22/2022 12/22/2022 12/22/2022 12:2 5 PM CDT R/O COVID-19 09/07/2023 09/07/2023 09/07/2023 9:52 PM TERRITORY MANAGER GENERAL SALES documented as of this encounter Care Teams Bee Keeper Relationship Specialty Start Date End Date Kassy Jay MD [address] [place] [address] [phone] PCP - General Family Practice 12/04/22 documented as of this encounter
--- OUTSIDE RECORDS SUMMARY | 2025-06-16 09:20 | XMS_ITS | Encounter Summary ---
Author Organization [facility] Address [address] [place] [address] Care Team Providers Care Glycerine Plant Operator Name Role Phone Kassy Jay MD Primary Care Provider [phone] Encounter Details Date Type Department Care Team (Late Contact Info) Description 03/27/2004 Outpatient Historical [facility] Childrens Respiratory and Sleep Medicine [address] [facility] [address] [address] Gustavo Sims Social History Tobacco Use Types Packs/Day Years Used Date Smoking Tobacco: Never Assessed Comments Unknown Sex and Gender Information Value Date Recorded Sex Assigned at Not on file Legal Sex Female 4:02 AM SUSTAINABILITY OFFICER Gender Identity Not on file Sexual Orientation Not on file documented as of this encounter Plan of Treatment Upcoming Encounters Date Type Department Care Team ([facility] Contact Info) Description 06/26/2025 9:00 AM CDT Video Visit [facility] Adult Psychiatry [address] [phone] Argelia Law NP [address] [place] [address] 08/08/2025 7:30 AM SUSTAINABILITY OFFICER Video Visit [facility] Adult Psychiatry [address] [address] Argelia Law NP [address] [place] [address] [place] [address] 09/25/2025 8:00 AM SUSTAINABILITY OFFICER Office Visit [facility] Primary Care - Kirby Herrmann [address] [place] [address] [address] Kassy Jay MD [address] [place] [address] documented as of this encounter Visit Diagnoses Not on filedocumented in this encounter Additional Health Concerns Infection Onset Date Last Indicated Resolved Time R/O COVID-19 06/02/2021 06/03/2021 06/03/2021 7:34 PM CDT R/O COVID-19 12/22/2022 12/22/2022 12/22/2022 12:2 5 PM CDT R/O COVID-19 09/07/2023 09/07/2023 09/07/2023 9:52 PM SUSTAINABILITY OFFICER documented as of this encounter Care Teams Glycerine Plant Operator Relationship Specialty Start Date End Date Kassy Jay MD [address] [place] [phone] PCP - General Family Practice 12/04/22 documented as of this encounter
--- OUTSIDE RECORDS SUMMARY | 2025-06-16 09:20 | XMS_ITS | Encounter Summary ---
Author Organization [facility] Address [address] [place] [address] Care Team Providers Care Paying Teller Name Role Phone Kassy Jay MD Primary Care Provider [phone] Encounter Details Date Type Department Care Team (Late Contact Info) Description 05/02/2002 Outpatient Historical [facility] Pediatrics - [facility] [address] [place] [address] [place] [address] [address] [place] [address] Social History Tobacco Use Types Packs/Day Years Used Date Smoking Tobacco: Never Assessed Comments Unknown Sex and Gender Information Value Date Recorded Sex Assigned at Not on file Legal Sex Female 4:02 AM CARROT GRADER INSPECTOR Gender Identity Not on file Sexual Orientation Not on file documented as of this encounter Plan of Treatment Upcoming Encounters Date Type Department Care Team (Late Contact Info) Description 06/26/2025 9:00 AM CDT Video Visit [facility] Adult Psychiatry [place] [address] [address] Argelia Law NP [address] [address] 08/08/2025 7:30 AM CARROT GRADER INSPECTOR Video Visit [facility] Adult Psychiatry [place] [address] [place] [address] [address] [place] [address] Argelia Law NP 1420 [facility] [address] [place] [address] 09/25/2025 8:00 AM CARROT GRADER INSPECTOR Office Visit [facility] Primary Care - Kirby Herrmann [address] [place] [address] [address] Kassy Jay MD [address] [place] [address] [address] documented as of this encounter Visit Diagnoses Not on filedocumented in this encounter Additional Health Concerns Infection Onset Date Last Indicated Resolved Time R/O COVID-19 06/02/2021 06/03/2021 06/03/2021 7:34 PM CDT R/O COVID-19 12/22/2022 12/22/2022 12/22/2022 12:2 5 PM CDT R/O COVID-19 09/07/2023 09/07/2023 09/07/2023 9:52 PM CARROT GRADER INSPECTOR documented as of this encounter Care Teams Paying Teller Relationship Specialty Start Date End Date Kassy Jay MD [address] [place] [address] [phone] PCP - General Family Practice 12/04/22 documented as of this encounter
--- OUTSIDE RECORDS SUMMARY | 2025-06-16 09:20 | XMS_ITS | Encounter Summary ---
Author Organization [facility] Address [address] [place] [address] Care Team Providers Care Engagement Engineer Name Role Phone Kassy Jay MD Primary Care Provider Encounter Details Date Type Department Care Team (Late Contact Info) Description 11/08/2004 Outpatient Historical [facility] Pediatrics - [facility] [address] [facility] [address] [place] [address] [place] [address] [facility] [place] [address] Social History Tobacco Use Types Packs/Day Years Used Date Smoking Tobacco: Never Assessed Comments Unknown Sex and Gender Information Value Date Recorded Sex Assigned at Not on file Legal Sex Female 4:02 AM RADIO ASSEMBLER Gender Identity Not on file Sexual Orientation Not on file documented as of this encounter Plan of Treatment Upcoming Encounters Date Type Department Care Team (Late Contact Info) Description 06/26/2025 9:00 AM CDT Video Visit [facility] Adult Psychiatry [place] [address] [address] Argelia Law NP [address] [address] 08/08/2025 7:30 AM RADIO ASSEMBLER Video Visit [facility] Adult Psychiatry [place] [address] [place] [address] [address] [place] [address] Argelia Law NP 1420 [facility] [address] [address] 09/25/2025 8:00 AM RADIO ASSEMBLER Office Visit [facility] Primary Care - Kirby Herrmann [address] [place] [address] Kassy Jay MD [address] [place] [address] [address] documented as of this encounter Visit Diagnoses Not on filedocumented in this encounter Additional Health Concerns Infection Onset Date Last Indicated Resolved Time R/O COVID-19 06/02/2021 06/03/2021 06/03/2021 7:34 PM CDT R/O COVID-19 12/22/2022 12/22/2022 12/22/2022 12:2 5 PM CDT R/O COVID-19 09/07/2023 09/07/2023 09/07/2023 9:52 PM RADIO ASSEMBLER documented as of this encounter Care Teams Engagement Engineer Relationship Specialty Start Date End Date Kassy Jay MD [address] [place] [address] [phone] PCP - General Family Practice 12/04/22 documented as of this encounter
--- OUTSIDE RECORDS SUMMARY | 2025-06-16 09:20 | XMS_ITS | Encounter Summary ---
Author Organization [facility] Address [address] [place] [address] Care Team Providers Care Svp Digital Sales Food & Cooking Name Role Phone Kassy Jay MD Primary Care Provider Encounter Details Date Type Department Care Team (Late Contact Info) Description 07/18/2004 Outpatient Historical [facility] Pediatrics - [facility] [address] [address] [facility] [address] [place] [address] [place] [address] [place] [address] Social History Tobacco Use Types Packs/Day Years Used Date Smoking Tobacco: Never Assessed Comments Unknown Sex and Gender Information Value Date Recorded Sex Assigned at Not on file Legal Sex Female 4:02 AM GROUND OPERATIONS SUPERVISOR Gender Identity Not on file Sexual Orientation Not on file documented as of this encounter Plan of Treatment Upcoming Encounters Date Type Department Care Team (Late Contact Info) Description 06/26/2025 9:00 AM CDT Video Visit [facility] Adult Psychiatry [place] [address] [address] Argelia Law NP [address] [address] 08/08/2025 7:30 AM GROUND OPERATIONS SUPERVISOR Video Visit [facility] Adult Psychiatry [place] [address] [place] [address] [address] [address] Argelia Law NP 1420 [facility] [address] [address] 09/25/2025 8:00 AM GROUND OPERATIONS SUPERVISOR Office Visit [facility] Primary Care - Kirby Herrmann [address] [place] [address] Kassy Jay MD [address] [place] [address] [address] documented as of this encounter Visit Diagnoses Not on filedocumented in this encounter Additional Health Concerns Infection Onset Date Last Indicated Resolved Time R/O COVID-19 06/02/2021 06/03/2021 06/03/2021 7:34 PM CDT R/O COVID-19 12/22/2022 12/22/2022 12/22/2022 12:2 5 PM CDT R/O COVID-19 09/07/2023 09/07/2023 09/07/2023 9:52 PM GROUND OPERATIONS SUPERVISOR documented as of this encounter Care Teams Svp Digital Sales Food & Cooking Relationship Specialty Start Date End Date Kassy Jay MD [address] [place] [address] [phone] PCP - General Family Practice 12/04/22 documented as of this encounter
--- OUTSIDE RECORDS SUMMARY | 2025-06-16 09:20 | XMS_ITS | Encounter Summary ---
Author Organization [facility] Address [address] [place] [address] Care Team Providers Care Ocean Freight Manager Name Role Phone Kassy Jay MD Primary Care Provider [phone] Encounter Details Date Type Department Care Team (Late Contact Info) Description 07/13/2001 Outpatient Historical [facility] Pediatrics - [facility] [address] [facility] [address] [place] [address] [place] [address] [place] [address] Social History Tobacco Use Types Packs/Day Years Used Date Smoking Tobacco: Never Assessed Comments Unknown Sex and Gender Information Value Date Recorded Sex Assigned at Not on file Legal Sex Female 4:02 AM ELECTRICAL CONTROLS TECHNICIAN Gender Identity Not on file Sexual Orientation Not on file documented as of this encounter Plan of Treatment Upcoming Encounters Date Type Department Care Team (Late Contact Info) Description 06/26/2025 9:00 AM CDT Video Visit [facility] Adult Psychiatry [place] [address] [address] Argelia Law NP [address] [address] 08/08/2025 7:30 AM ELECTRICAL CONTROLS TECHNICIAN Video Visit [facility] Adult Psychiatry [place] [address] [place] [address] [address] [address] Argelia Law NP 1420 [facility] [address] [address] 09/25/2025 8:00 AM ELECTRICAL CONTROLS TECHNICIAN Office Visit [facility] Primary Care - Kirby Herrmann [address] [place] [address] [address] Kassy Jay MD [address] [place] [address] [address] documented as of this encounter Visit Diagnoses Not on filedocumented in this encounter Additional Health Concerns Infection Onset Date Last Indicated Resolved Time R/O COVID-19 06/02/2021 06/03/2021 06/03/2021 7:34 PM CDT R/O COVID-19 12/22/2022 12/22/2022 12/22/2022 12:2 5 PM CDT R/O COVID-19 09/07/2023 09/07/2023 09/07/2023 9:52 PM ELECTRICAL CONTROLS TECHNICIAN documented as of this encounter Care Teams Ocean Freight Manager Relationship Specialty Start Date End Date Kassy Jay MD [address] [place] [address] [phone] PCP - General Family Practice 12/04/22 documented as of this encounter
--- OUTSIDE RECORDS SUMMARY | 2025-06-16 09:20 | XMS_ITS | Encounter Summary ---
Author Organization [facility] Address [address] [place] [address] Care Team Providers Care Top Stop Attacher Name Role Phone Kassy Jay MD Primary Care Provider [phone] Encounter Details Date Type Department Care Team (Late Contact Info) Description 06/07/2003 Outpatient Historical [facility] Childrens Respiratory and Sleep Medicine [address] [facility] [address] [address] Gustavo Sims Social History Tobacco Use Types Packs/Day Years Used Date Smoking Tobacco: Never Assessed Comments Unknown Sex and Gender Information Value Date Recorded Sex Assigned at Not on file Legal Sex Female 4:02 AM SEMICONDUCTOR ASSEMBLER Gender Identity Not on file Sexual Orientation Not on file documented as of this encounter Plan of Treatment Upcoming Encounters Date Type Department Care Team ([facility] Contact Info) Description 06/26/2025 9:00 AM CDT Video Visit [facility] Adult Psychiatry [address] [phone] Argelia Law NP [address] [place] [address] 08/08/2025 7:30 AM SEMICONDUCTOR ASSEMBLER Video Visit [facility] Adult Psychiatry [address] [address] Argelia Law NP [address] [place] [address] [place] [address] 09/25/2025 8:00 AM SEMICONDUCTOR ASSEMBLER Office Visit [facility] Primary Care - Kirby Herrmann [address] [place] [address] [address] Kassy Jay MD [address] [place] [address] [address] documented as of this encounter Visit Diagnoses Not on filedocumented in this encounter Additional Health Concerns Infection Onset Date Last Indicated Resolved Time R/O COVID-19 06/02/2021 06/03/2021 06/03/2021 7:34 PM CDT R/O COVID-19 12/22/2022 12/22/2022 12/22/2022 12:2 5 PM CDT R/O COVID-19 09/07/2023 09/07/2023 09/07/2023 9:52 PM SEMICONDUCTOR ASSEMBLER documented as of this encounter Care Teams Top Stop Attacher Relationship Specialty Start Date End Date Kassy Jay MD [address] [place] [phone] PCP - General Family Practice 12/04/22 documented as of this encounter
--- OUTSIDE RECORDS SUMMARY | 2025-06-16 09:20 | XMS_ITS | Encounter Summary ---
Author Organization [facility] Address [address] [place] [address] Care Team Providers Care Dealer Compliance Representative Name Role Phone Kassy Jay MD Primary Care Provider [phone] Encounter Details Date Type Department Care Team (Late Contact Info) Description 10/09/2003 Outpatient Historical [facility] Childrens Respiratory and Sleep Medicine [address] [facility] [address] [address] Gustavo Sims Social History Tobacco Use Types Packs/Day Years Used Date Smoking Tobacco: Never Assessed Comments Unknown Sex and Gender Information Value Date Recorded Sex Assigned at Not on file Legal Sex Female 4:02 AM SEAMARK ADVANCED OPERATOR MAINTAINER Gender Identity Not on file Sexual Orientation Not on file documented as of this encounter Plan of Treatment Upcoming Encounters Date Type Department Care Team ([facility] Contact Info) Description 06/26/2025 9:00 AM CDT Video Visit [facility] Adult Psychiatry [address] [phone] Argelia Law NP [address] [place] [address] 08/08/2025 7:30 AM SEAMARK ADVANCED OPERATOR MAINTAINER Video Visit [facility] Adult Psychiatry [address] [address] Argelia Law NP [address] [place] [address] [place] [address] 09/25/2025 8:00 AM SEAMARK ADVANCED OPERATOR MAINTAINER Office Visit [facility] Primary Care - Kirby Herrmann [address] [place] [phone] Kassy Jay MD [address] [place] [address] documented as of this encounter Visit Diagnoses Not on filedocumented in this encounter Additional Health Concerns Infection Onset Date Last Indicated Resolved Time R/O COVID-19 06/02/2021 06/03/2021 06/03/2021 7:34 PM CDT R/O COVID-19 12/22/2022 12/22/2022 12/22/2022 12:2 5 PM CDT R/O COVID-19 09/07/2023 09/07/2023 09/07/2023 9:52 PM SEAMARK ADVANCED OPERATOR MAINTAINER documented as of this encounter Care Teams Dealer Compliance Representative Relationship Specialty Start Date End Date Kassy Jay MD [address] [place] [place] [phone] PCP - General Family Practice 12/04/22 documented as of this encounter
--- OUTSIDE RECORDS SUMMARY | 2025-06-16 09:20 | XMS_ITS | Encounter Summary ---
Author Organization [facility] Address [address] [place] [address] Care Team Providers Care Directory Clerk Name Role Phone Kassy Jay MD Primary Care Provider [phone] Encounter Details Date Type Department Care Team ([facility] Contact Info) Description 07/03/2007 Outpatient Historical [facility] - [facility] [address] [facility] [address] [place] [address] [place] [address] [facility] [address] [place] [address] Social History Tobacco Use Types Packs/Day Years Used Date Smoking Tobacco: Never Assessed Comments Unknown Sex and Gender Information Value Date Recorded Sex Assigned at Not on file Legal Sex Female 4:02 AM ENTHONE SOLDER STRIPPER Gender Identity Not on file Sexual [...] Date Type Department Care Team ([facility] Contact Info) Description 06/26/2025 9:00 AM CDT Video Visit [facility] Adult [facility]iat[facility] [place] [address] [address] [place], [place] [address] Argelia Law, [place] [address] [address] [place] [address] 08/08/2025 7:30 AM ENTHONE SOLDER STRIPPER Video Visit [facility] Adult [facility]iat[facility] [place] [address] [address] [place] [address] Argelia Law, ARAMIS [address] [address] [place] [address] 09/25/2025 8:00 AM ENTHONE SOLDER STRIPPER Office Visit [facility] Primary Care - Kirby Herrmann [address] [place] [address] [address] Kassy Jay MD [address] [place] [address] documented as of this encounter Visit Diagnoses Not on filedocumented in this encounter Additional Health Concerns Infection Onset Date Last Indicated Resolved Time R/O COVID-19 06/02/2021 06/03/2021 06/03/2021 7:34 PM CDT R/O COVID-19 12/22/2022 12/22/2022 12/22/2022 12:2 5 PM CDT R/O COVID-19 09/07/2023 09/07/2023 09/07/2023 9:52 PM ENTHONE SOLDER STRIPPER documented as of this encounter Care Teams Directory Clerk Relationship Specialty Start Date End Date Kassy aJy MD [address] [place] [phone] PCP - General Family Practice 12/04/22 documented as of this encounter
--- OUTSIDE RECORDS SUMMARY | 2025-06-16 09:20 | XMS_ITS | Encounter Summary ---
Author Organization [facility] Address [address] [place] [address] Care Team Providers Care Database Analyst Name Role Phone Kassy Jay MD Primary Care Provider [phone] Encounter Details Date Type Department Care Team (Late st Contact Info) Description 04/19/2007 Orders Only [facility] Pediatrics - [facility] [address] [facility] [address] [place] [address] [place] [address] [facility] [address] [place] [address] Social History Tobacco Use Types Packs/Day Years Used Date Smoking Tobacco: Never Assessed Comments Unknown Sex and Gender Information Value Date Recorded Sex Assigned at Not on file Legal Sex Female 4:02 AM COOK ITALIAN STYLE FOOD Gender Identity Not on file Sexual Orientation [...] earache. HISTORY: HPI: Has been vacationing in [place]. Has been swimming. Developed left ear pain [...] CDT Video Visit [facility] Adult Psychiatry [place] [address] [place] [address] S[place], Argelia Lopez NP [address] [place] [address] 08/08/2025 7:30 AM COOK ITALIAN STYLE FOOD Video Visit [facility] Adult Psychiatry [place] [address] [address] [place] [address] Argelia LawARAMIS [address] [address] [place] [address] 09/25/2025 8:00 AM COOK ITALIAN STYLE FOOD Office Visit [facility] Primary Care - Kirby Herrmann [address] [place] [address] Kassy Jay MD [address] [place] [address] documented as of this encounter Visit Diagnoses Not on filedocumented in this encounter Additional Health Concerns Infection Onset Date Last Indicated Resolved Time R/O COVID-19 06/02/2021 06/03/2021 06/03/2021 7:34 PM CDT R/O COVID-19 12/22/2022 12/22/2022 12/22/2022 12:2 5 PM CDT R/O COVID-19 09/07/2023 09/07/2023 09/07/2023 9:52 PM COOK ITALIAN STYLE FOOD documented as of this encounter Care Teams Database Analyst Relationship Specialty Start Date End Date Kassy Jay MD [address] [place] [address] [phone] PCP - General Family Practice 12/04/22 documented as of this encounter
--- OUTSIDE RECORDS SUMMARY | 2025-06-16 09:20 | XMS_ITS | Encounter Summary ---
Author Organization [facility] Address [address] [place] [address] Care Team Providers Care Rug Inspector Helper Name Role Phone Kassy Jay MD Primary Care Provider [phone] Encounter Details Date Type Department Care Team (Late Contact Info) Description 03/27/2004 Outpatient Historical [facility] Childrens Respiratory and Sleep Medicine [address] [facility] [place] [facility] [address] [address] Gustavo Sims Social History Tobacco Use Types Packs/Day Years Used Date Smoking Tobacco: Never Assessed Comments Unknown Sex and Gender Information Value Date Recorded Sex Assigned at Not on file Legal Sex Female 4:02 AM CABBAGE SALTER Gender Identity Not on file Sexual Orientation Not on file documented as of this encounter Plan of Treatment Upcoming Encounters Date Type Department Care Team ([facility] Contact Info) Description 06/26/2025 9:00 AM CDT Video Visit [facility] Adult Psychiatry [address] [phone] Argelia Law NP [address] [place] [address] 08/08/2025 7:30 AM CABBAGE SALTER Video Visit [facility] Adult Psychiatry [address] [address] Argelia Law NP [address] [place] [address] [place] [address] 09/25/2025 8:00 AM CABBAGE SALTER Office Visit [facility] Primary Care - Kirby Herrmann [address] [place] [address] [address] Kassy Jay MD [address] [place] [address] documented as of this encounter Visit Diagnoses Not on filedocumented in this encounter Additional Health Concerns Infection Onset Date Last Indicated Resolved Time R/O COVID-19 06/02/2021 06/03/2021 06/03/2021 7:34 PM CDT R/O COVID-19 12/22/2022 12/22/2022 12/22/2022 12:2 5 PM CDT R/O COVID-19 09/07/2023 09/07/2023 09/07/2023 9:52 PM CABBAGE SALTER documented as of this encounter Care Teams Rug Inspector Helper Relationship Specialty Start Date End Date Kassy Jay MD [address] [place] [phone] PCP - General Family Practice 12/04/22 documented as of this encounter
--- OUTSIDE RECORDS SUMMARY | 2025-06-16 09:20 | XMS_ITS | Encounter Summary ---
Author Organization [facility] Address [address] [place] [address] Care Team Providers Care Shipping Processor Name Role Phone Kassy Jay MD Primary Care Provider [phone] Encounter Details Date Type Department Care Team (Late Contact Info) Description 06/16/2002 Outpatient Historical [facility] Childrens Respiratory and Sleep Medicine [address] [facility] [address] [address] Gustavo Sims Social History Tobacco Use Types Packs/Day Years Used Date Smoking Tobacco: Never Assessed Comments Unknown Sex and Gender Information Value Date Recorded Sex Assigned at Not on file Legal Sex Female 4:02 AM HEAD OF ICT Gender Identity Not on file Sexual Orientation Not on file documented as of this encounter Plan of Treatment Upcoming Encounters Date Type Department Care Team ([facility] Contact Info) Description 06/26/2025 9:00 AM CDT Video Visit [facility] Adult Psychiatry [address] [phone] Argelia Law NP [address] [place] [address] 08/08/2025 7:30 AM HEAD OF ICT Video Visit [facility] Adult Psychiatry [address] [address] Argelia Law NP [address] [place] [address] [place] [address] 09/25/2025 8:00 AM HEAD OF ICT Office Visit [facility] Primary Care - Kirby Herrmann [address] [place] [address] Kassy Jay MD [address] [place] [place] [place] [address] [address] documented as of this encounter Visit Diagnoses Not on filedocumented in this encounter Additional Health Concerns Infection Onset Date Last Indicated Resolved Time R/O COVID-19 06/02/2021 06/03/2021 06/03/2021 7:34 PM CDT R/O COVID-19 12/22/2022 12/22/2022 12/22/2022 12:2 5 PM CDT R/O COVID-19 09/07/2023 09/07/2023 09/07/2023 9:52 PM HEAD OF ICT documented as of this encounter Care Teams Shipping Processor Relationship Specialty Start Date End Date Kassy Jay MD [address] [place] [place] [address] [phone] PCP - General Family Practice 12/04/22 documented as of this encounter
--- OUTSIDE RECORDS SUMMARY | 2025-06-16 09:20 | XMS_ITS | Encounter Summary ---
Author Organization [facility] Address [address] [place] [address] Care Team Providers Care Upholstery Instructor Name Role Phone Kassy Jay MD Primary Care Provider [phone] Encounter Details Date Type Department Care Team (Late Contact Info) Description 10/09/2003 Outpatient Historical [facility] Childrens Respiratory and Sleep Medicine [address] [facility] [address] [address] Gustavo Sims Social History Tobacco Use Types Packs/Day Years Used Date Smoking Tobacco: Never Assessed Comments Unknown Sex and Gender Information Value Date Recorded Sex Assigned at Not on file Legal Sex Female 4:02 AM ATMOSPHERIC DRIER TENDER Gender Identity Not on file Sexual Orientation Not on file documented as of this encounter Plan of Treatment Upcoming Encounters Date Type Department Care Team ([facility] Contact Info) Description 06/26/2025 9:00 AM CDT Video Visit [facility] Adult Psychiatry [address] [phone] Argelia Law NP [address] [place] [address] 08/08/2025 7:30 AM ATMOSPHERIC DRIER TENDER Video Visit [facility] Adult Psychiatry [address] [address] Argelia Law NP [address] [place] [address] [place] [address] 09/25/2025 8:00 AM ATMOSPHERIC DRIER TENDER Office Visit [facility] Primary Care - Kirby Herrmann [address] [place] [address] [address] Kassy Jay MD [address] [place] [address] [address] documented as of this encounter Visit Diagnoses Not on filedocumented in this encounter Additional Health Concerns Infection Onset Date Last Indicated Resolved Time R/O COVID-19 06/02/2021 06/03/2021 06/03/2021 7:34 PM CDT R/O COVID-19 12/22/2022 12/22/2022 12/22/2022 12:2 5 PM CDT R/O COVID-19 09/07/2023 09/07/2023 09/07/2023 9:52 PM ATMOSPHERIC DRIER TENDER documented as of this encounter Care Teams Upholstery Instructor Relationship Specialty Start Date End Date Kassy Jay MD [address] [phone] PCP - General Family Practice 12/04/22 documented as of this encounter
--- OUTSIDE RECORDS SUMMARY | 2025-06-16 09:20 | XMS_ITS | Encounter Summary ---
Author Organization [facility] Address [address] [place] [address] Care Team Providers Care Corporate Coordinator Name Role Phone Kassy Jay MD Primary Care Provider [phone] Encounter Details Date Type Department Care Team (Latest Contact Info) Description 12/15/2003 Outpatient Historical [facility] Gustavo Sims ASTHMA UNSPECIFIED (Primary Dx) Social History Tobacco Use Types Packs/Day Years Used Date Smoking Tobacco: Never Assessed Comments Unknown Sex and Gender Information Value Date Recorded Sex Assigned at Not on file Legal Sex Female 4:02 AM ORCHESTRA MUSICIAN Gender Identity Not on file Sexual Orientation Not on file documented as of this encounter Plan of Treatment Upcoming Encounters Date Type Department Care Team (Late st Contact Info) Description 06/26/2025 9:00 AM CDT Video Visit [facility] Adult Psychiatry [address] [place] [address] Argelia Law NP [address] [place] [address] [place] [address] 08/08/2025 7:30 AM ORCHESTRA MUSICIAN Video Visit [facility] Adult Psychiatry [address] [place] [address] Argelia Law NP [address] [place] [address] [place] [address] 09/25/2025 8:00 AM ORCHESTRA MUSICIAN Office Visit [facility] Primary Care - Kirby Herrmann [address] [place] [phone] Kassy Jay MD [address] [place] [address] [phone] documented as of this encounter Visit Diagnoses Diagnosis Unspecified asthma(493.90)- Primary Unspecified asthma documented in this encounter Additional Health Concerns Infection Onset Date Last Indicated Resolved Time R/O COVID-19 06/02/2021 06/03/2021 06/03/2021 7:34 PM CDT R/O COVID-19 12/22/2022 12/22/2022 12/22/2022 12:2 5 PM CDT R/O COVID-19 09/07/2023 09/07/2023 09/07/2023 9:52 PM ORCHESTRA MUSICIAN documented as of this encounter Care Teams Corporate Coordinator Relationship Specialty Start Date End Date Kassy Jay MD [address] [place] [address] [phone] PCP - General Family Practice 12/04/22 documented as of this encounter
--- OUTSIDE RECORDS SUMMARY | 2025-06-16 09:20 | XMS_ITS | Encounter Summary ---
Author Organization [facility] Address [address] [place] [address] Care Team Providers Care Code Enforcement Inspector Name Role Phone Kassy Jay MD Primary Care Provider [phone] Encounter Details Date Type Department Care Team (Late Contact Info) Description 12/15/2003 Outpatient Historical [facility] Childrens Respiratory and Sleep Medicine [address] [facility] [address] [address] Gustavo Sims Social History Tobacco Use Types Packs/Day Years Used Date Smoking Tobacco: Never Assessed Comments Unknown Sex and Gender Information Value Date Recorded Sex Assigned at Not on file Legal Sex Female 4:02 AM OWNER Gender Identity Not on file Sexual Orientation Not on file documented as of this encounter Plan of Treatment Upcoming Encounters Date Type Department Care Team ([facility] Contact Info) Description 06/26/2025 9:00 AM CDT Video Visit [facility] Adult Psychiatry [address] [phone] Argelia Law NP [address] [place] [address] 08/08/2025 7:30 AM OWNER Video Visit [facility] Adult Psychiatry [address] [address] Argelia Law NP [address] [place] [address] [place] [address] 09/25/2025 8:00 AM OWNER Office Visit [facility] Primary Care - Kirby Herrmann [address] [place] [address] [address] Kassy Jay MD [address] [place] [place] [address] documented as of this encounter Visit Diagnoses Not on filedocumented in this encounter Additional Health Concerns Infection Onset Date Last Indicated Resolved Time R/O COVID-19 06/02/2021 06/03/2021 06/03/2021 7:34 PM CDT R/O COVID-19 12/22/2022 12/22/2022 12/22/2022 12:2 5 PM CDT R/O COVID-19 09/07/2023 09/07/2023 09/07/2023 9:52 PM OWNER documented as of this encounter Care Teams Code Enforcement Inspector Relationship Specialty Start Date End Date Kassy Jay MD [address] [phone] PCP - General Family Practice 12/04/22 documented as of this encounter
--- OUTSIDE RECORDS SUMMARY | 2025-06-16 09:20 | XMS_ITS | Encounter Summary ---
Author Organization [facility] Address [address] [place] [address] Care Team Providers Care Batch And Furnace Operator Name Role Phone Kassy Jay MD Primary Care Provider [phone] Encounter Details Date Type Department Care Team (Latest Contact Info) Description 02/13/2005 Outpatient Historical [facility] Gustavo Sims ASTHMA UNSPECIFIED (Primary Dx) Social History Tobacco Use Types Packs/Day Years Used Date Smoking Tobacco: Never Assessed Comments Unknown Sex and Gender Information Value Date Recorded Sex Assigned at Not on file Legal Sex Female 4:02 AM CAGE LOADER Gender Identity Not on file Sexual Orientation Not on file documented as of this encounter Plan of Treatment Upcoming Encounters Date Type Department Care Team (Late st Contact Info) Description 06/26/2025 9:00 AM CDT Video Visit [facility] Adult Psychiatry [address] [place] [address] Argelia Law NP [address] [place] [address] [place] [address] 08/08/2025 7:30 AM CAGE LOADER Video Visit [facility] Adult Psychiatry [address] [place] [address] Argelia Law NP [address] [place] [address] [place] [address] 09/25/2025 8:00 AM CAGE LOADER Office Visit [facility] Primary Care - Kirby Herrmann [address] [place] [address] [phone] Kassy Jay MD [address] [place] [phone] documented as of this encounter Visit Diagnoses Diagnosis Unspecified asthma(493.90)- Primary Unspecified asthma documented in this encounter Additional Health Concerns Infection Onset Date Last Indicated Resolved Time R/O COVID-19 06/02/2021 06/03/2021 06/03/2021 7:34 PM CDT R/O COVID-19 12/22/2022 12/22/2022 12/22/2022 12:2 5 PM CDT R/O COVID-19 09/07/2023 09/07/2023 09/07/2023 9:52 PM CAGE LOADER documented as of this encounter Care Teams Batch And Furnace Operator Relationship Specialty Start Date End Date Kassy Jay MD [address] [place] [phone] PCP - General Family Practice 12/04/22 documented as of this encounter
--- OUTSIDE RECORDS SUMMARY | 2025-06-16 09:20 | XMS_ITS | Encounter Summary ---
Author Organization [facility] Address [address] [place] [address] Care Team Providers Care Trimmer Buffing Wheel Name Role Phone Kassy Jay MD Primary Care Provider [phone] Encounter Details Date Type Department Care Team (Late Contact Info) Description 06/30/2007 Outpatient Historical [facility] Pediatrics - [facility] [address] [place] [address] [place] [address] [facility] [address] [place] [address] Social History Tobacco Use Types Packs/Day Years Used Date Smoking Tobacco: Never Assessed Comments Unknown Sex and Gender Information Value Date Recorded Sex Assigned at Not on file Legal Sex Female 4:02 AM HEMP FIBER TAKER OFF Gender Identity Not on file Sexual Orientation Not on file documented as of this encounter Plan of Treatment Upcoming Encounters Date Type Department Care Team (Late Contact Info) Description 06/26/2025 9:00 AM CDT Video Visit [facility] Adult Psychiatry [place] [address] [address] Argelia Law NP [address] [address] 08/08/2025 7:30 AM HEMP FIBER TAKER OFF Video Visit [facility] Adult Psychiatry [place] [address] [address] [address] [address] Argelia Law NP [address] [facility] [address] [address] 09/25/2025 8:00 AM HEMP FIBER TAKER OFF Office Visit [facility] Primary Care - Kirby Herrmann [address] [place] [address] Kassy Jay MD [address] [place] [address] documented as of this encounter Visit Diagnoses Not on filedocumented in this encounter Additional Health Concerns Infection Onset Date Last Indicated Resolved Time R/O COVID-19 06/02/2021 06/03/2021 06/03/2021 7:34 PM CDT R/O COVID-19 12/22/2022 12/22/2022 12/22/2022 12:2 5 PM CDT R/O COVID-19 09/07/2023 09/07/2023 09/07/2023 9:52 PM HEMP FIBER TAKER OFF documented as of this encounter Care Teams Trimmer Buffing Wheel Relationship Specialty Start Date End Date Kassy Jay MD [address] [place] [phone] PCP - General Family Practice 12/04/22 documented as of this encounter
--- OUTSIDE RECORDS SUMMARY | 2025-06-16 09:20 | XMS_ITS | Encounter Summary ---
Author Organization [facility] Address [address] [place] [address] Care Team Providers Care Honing Job Setter Name Role Phone Kassy Jay MD Primary Care Provider [phone] Encounter Details Date Type Department Care Team (Late Contact Info) Description 04/14/2002 Outpatient Historical [facility] - [facility] [address] [facility] [address] [place] [address] [place] [address] [facility] [address] [place] [address] Social History Tobacco Use Types Packs/Day Years Used Date Smoking Tobacco: Never Assessed Comments Unknown Sex and Gender Information Value Date Recorded Sex Assigned at Not on file Legal Sex Female 4:02 AM RECEPTIONIST TELEPHONE OPERATOR Gender Identity Not on file Sexual Orientation Not on file documented as of this encounter Plan of Treatment Upcoming Encounters Date Type Department Care Team (Late Contact Info) Description 06/26/2025 9:00 AM CDT Video Visit [facility] [place] [address] [address] Argelia Law NP [address] [address] 08/08/2025 7:30 AM RECEPTIONIST TELEPHONE OPERATOR Video Visit [facility] [place] [address] [address] [address] [address] Argelia Law NP 1420 [facility] [address] [place] [address] 09/25/2025 8:00 AM RECEPTIONIST TELEPHONE OPERATOR Office Visit [facility] - [place] Herrmann [address] [place] [address] [address] Kassy Jay MD [address] [place] [address] documented as of this encounter Visit Diagnoses Not on filedocumented in this encounter Additional Health Concerns Infection Onset Date Last Indicated Resolved Time R/O COVID-19 06/02/2021 06/03/2021 06/03/2021 7:34 PM CDT R/O COVID-19 12/22/2022 12/22/2022 12/22/2022 12:2 5 PM CDT R/O COVID-19 09/07/2023 09/07/2023 09/07/2023 9:52 PM RECEPTIONIST TELEPHONE OPERATOR documented as of this encounter Care Teams Honing Job Setter Relationship Specialty Start Date End Date Kassy Jay MD [address] [place] [address] [address] PCP - General Family Practice 12/04/22 documented as of this encounter
--- OUTSIDE RECORDS SUMMARY | 2025-06-16 09:20 | XMS_ITS | Encounter Summary ---
Author Organization [facility] Address [address] [place] [address] Care Team Providers Care Staff Interpreter Name Role Phone Kassy Jay MD Primary Care Provider [phone] Encounter Details Date Type Department Care Team (Late Contact Info) Description 03/26/2004 Outpatient Historical [facility] Pediatrics - [facility] [address] [facility] [address] [place] [address] [place] [address] [facility] [address] [place] [address] Social History Tobacco Use Types Packs/Day Years Used Date Smoking Tobacco: Never Assessed Comments Unknown Sex and Gender Information Value Date Recorded Sex Assigned at Not on file Legal Sex Female 4:02 AM JUNIOR ELECTRICAL ENGINEER Gender Identity Not on file Sexual Orientation Not on file documented as of this encounter Plan of Treatment Upcoming Encounters Date Type Department Care Team (Late Contact Info) Description 06/26/2025 9:00 AM CDT Video Visit [facility] Adult Psychiatry [place] [address] [phone] Argelia Law NP [address] [address] 08/08/2025 7:30 AM JUNIOR ELECTRICAL ENGINEER Video Visit [facility] Adult Psychiatry [place] [address] [place] [address] [address] [place] [address] Argelia Law NP 1420 [facility] 61 [place] [address] 09/25/2025 8:00 AM JUNIOR ELECTRICAL ENGINEER Office Visit [facility] Primary Care - Kirby Herrmann [address] [address] [address] Kassy Jay MD [address] [place] [address] [address] documented as of this encounter Visit Diagnoses Not on filedocumented in this encounter Additional Health Concerns Infection Onset Date Last Indicated Resolved Time R/O COVID-19 06/02/2021 06/03/2021 06/03/2021 7:34 PM CDT R/O COVID-19 12/22/2022 12/22/2022 12/22/2022 12:2 5 PM CDT R/O COVID-19 09/07/2023 09/07/2023 09/07/2023 9:52 PM JUNIOR ELECTRICAL ENGINEER documented as of this encounter Care Teams Staff Interpreter Relationship Specialty Start Date End Date Kassy Jay MD [address] [place] [address] [address] PCP - General Family Practice 12/04/22 documented as of this encounter
--- OUTSIDE RECORDS SUMMARY | 2025-06-16 09:20 | XMS_ITS | Encounter Summary ---
Author Organization [facility] Address [address] [place] [address] Care Team Providers Care Acid Changer Name Role Phone Kassy Jay MD Primary Care Provider [phone] Encounter Details Date Type Department Care Team (Late Contact Info) Description 10/07/2002 Outpatient Historical [facility] Pediatrics - [facility] [address] [facility] [address] [place] [address] [place] [address] [facility] [address] [place] [address] Social History Tobacco Use Types Packs/Day Years Used Date Smoking Tobacco: Never Assessed Comments Unknown Sex and Gender Information Value Date Recorded Sex Assigned at Not on file Legal Sex Female 4:02 AM ACQUISITIONS ANALYST Gender Identity Not on file Sexual Orientation Not on file documented as of this encounter Plan of Treatment Upcoming Encounters Date Type Department Care Team (Late Contact Info) Description 06/26/2025 9:00 AM CDT Video Visit [facility] Adult Psychiatry [place] [address] [address] Argelia Law NP [address] [address] 08/08/2025 7:30 AM ACQUISITIONS ANALYST Video Visit [facility] Adult Psychiatry [place] [address] [place] [address] [place] [address] Argelia Law NP 1420 [facility] [address] [place] [address] 09/25/2025 8:00 AM ACQUISITIONS ANALYST Office Visit [facility] Primary Care - Kirby Herrmann [address] [place] [address] [address] Kassy Jay MD [address] [place] [address] [address] documented as of this encounter Visit Diagnoses Not on filedocumented in this encounter Additional Health Concerns Infection Onset Date Last Indicated Resolved Time R/O COVID-19 06/02/2021 06/03/2021 06/03/2021 7:34 PM CDT R/O COVID-19 12/22/2022 12/22/2022 12/22/2022 12:2 5 PM CDT R/O COVID-19 09/07/2023 09/07/2023 09/07/2023 9:52 PM ACQUISITIONS ANALYST documented as of this encounter Care Teams Acid Changer Relationship Specialty Start Date End Date Kassy Jay MD [address] [place] [address] [address] PCP - General Family Practice 12/04/22 documented as of this encounter
--- OUTSIDE RECORDS SUMMARY | 2025-06-16 09:20 | XMS_ITS | Encounter Summary ---
Author Organization [facility] Address [address] [place] [address] Care Team Providers Care Cobol Application Developer Name Role Phone Kassy Jay MD Primary Care Provider Encounter Details Date Type Department Care Team (Late Contact Info) Description 09/02/2004 Outpatient Historical [facility] Pediatric[facility] - [facility] [address] [facility] [address] [place] [address] [place] [address] [facility] [facility] [address] [place] [address] Social History Tobacco Use Types Packs/Day Years Used Date Smoking Tobacco: Never Assessed Comments Unknown Sex and Gender Information Value Date Recorded Sex Assigned at Not on file Legal Sex Female 4:02 AM COMPRESSION MOLDING MACHINE TENDER Gender Identity Not on file Sexual Orientation Not on file documented as of this encounter Plan of Treatment Upcoming Encounters Date Type Department Care Team (Late Contact Info) Description 06/26/2025 9:00 AM CDT Video Visit [facility] Adult Psychiatry [place] [address] [address] Argelia Law NP [address] [address] 08/08/2025 7:30 AM COMPRESSION MOLDING MACHINE TENDER Video Visit [facility] Adult Psychiatry [place] [address] [place] [address] [address] [place] [address] Argelia Law NP 1420 [facility] 61 [place] [address] 09/25/2025 8:00 AM COMPRESSION MOLDING MACHINE TENDER Office Visit [facility] Primary Care - Kirby Herrmann [address] [place] [address] [address] Kassy Jay MD [address] [place] [address] [address] documented as of this encounter Visit Diagnoses Not on filedocumented in this encounter Additional Health Concerns Infection Onset Date Last Indicated Resolved Time R/O COVID-19 06/02/2021 06/03/2021 06/03/2021 7:34 PM CDT R/O COVID-19 12/22/2022 12/22/2022 12/22/2022 12:2 5 PM CDT R/O COVID-19 09/07/2023 09/07/2023 09/07/2023 9:52 PM COMPRESSION MOLDING MACHINE TENDER documented as of this encounter Care Teams Cobol Application Developer Relationship Specialty Start Date End Date Kassy Jay MD [address] [place] [address] [address] PCP - General Family Practice 12/04/22 documented as of this encounter
--- OUTSIDE RECORDS SUMMARY | 2025-06-16 09:20 | XMS_ITS | Encounter Summary ---
Author Organization [facility] Address [address] [place] [address] Care Team Providers Care Quill Machine Operator Name Role Phone Kassy Jay MD Primary Care Provider [phone] Encounter Details Date Type Department Care Team (Late Contact Info) Description 07/18/2004 Outpatient Historical [facility] Pediatrics - [facility] [address] [facility] [address] [place] [address] [place] [address] [facility] [address] [place] [address] Social History Tobacco Use Types Packs/Day Years Used Date Smoking Tobacco: Never Assessed Comments Unknown Sex and Gender Information Value Date Recorded Sex Assigned at Not on file Legal Sex Female 4:02 AM SAW FILER Gender Identity Not on file Sexual Orientation Not on file documented as of this encounter Plan of Treatment Upcoming Encounters Date Type Department Care Team (Late Contact Info) Description 06/26/2025 9:00 AM CDT Video Visit [facility] Adult Psychiatry [place] [address] [phone] Argelia Law NP [address] [address] 08/08/2025 7:30 AM SAW FILER Video Visit [facility] Adult Psychiatry [place] [address] [place] [address] [address] [place] [address] Argelia Law NP 1420 [facility] [address] [place] [address] 09/25/2025 8:00 AM SAW FILER Office Visit [facility] Primary Care - Kirby Herrmann [address] [address] [address] Kassy Jay MD [address] [place] [address] [address] documented as of this encounter Visit Diagnoses Not on filedocumented in this encounter Additional Health Concerns Infection Onset Date Last Indicated Resolved Time R/O COVID-19 06/02/2021 06/03/2021 06/03/2021 7:34 PM CDT R/O COVID-19 12/22/2022 12/22/2022 12/22/2022 12:2 5 PM CDT R/O COVID-19 09/07/2023 09/07/2023 09/07/2023 9:52 PM SAW FILER documented as of this encounter Care Teams Quill Machine Operator Relationship Specialty Start Date End Date Kassy Jay MD [address] [place] [address] [address] PCP - General Family Practice 12/04/22 documented as of this encounter
--- OUTSIDE RECORDS SUMMARY | 2025-06-16 09:20 | XMS_ITS | Encounter Summary ---
Author Organization [facility] Address [address] [place] [address] Care Team Providers Care Felt Finisher Name Role Phone Kassy Jay MD Primary Care Provider [phone] Encounter Details Date Type Department Care Team (Late Contact Info) Description 05/06/2002 Outpatient Historical [facility] [address] [facility] [address] [address] Gustavo Sims Social History Tobacco Use Types Packs/Day Years Used Date Smoking Tobacco: Never Assessed Comments Unknown Sex and Gender Information Value Date Recorded Sex Assigned at Not on file Legal Sex Female 4:02 AM DRIER AND PULVERIZER TENDER Gender Identity Not on file Sexual Orientation Not on file documented as of this encounter Plan of Treatment Upcoming Encounters Date Type Department Care Team ([facility] Contact Info) Description 06/26/2025 9:00 AM CDT Video Visit [facility] Adult Psychiatry [address] [phone] Argelia Law NP [address] [place] [address] 08/08/2025 7:30 AM DRIER AND PULVERIZER TENDER Video Visit [facility] Adult Psychiatry [address] [phone] Argelia Law NP [address] [place] [address] [place] [address] 09/25/2025 8:00 AM DRIER AND PULVERIZER TENDER Office Visit [facility] Primary Care - Kirby Herrmann [address] [place] [address] [address] Kassy Jay MD [address] [place] [address] documented as of this encounter Visit Diagnoses Not on filedocumented in this encounter Additional Health Concerns Infection Onset Date Last Indicated Resolved Time R/O COVID-19 06/02/2021 06/03/2021 06/03/2021 7:34 PM CDT R/O COVID-19 12/22/2022 12/22/2022 12/22/2022 12:2 5 PM CDT R/O COVID-19 09/07/2023 09/07/2023 09/07/2023 9:52 PM DRIER AND PULVERIZER TENDER documented as of this encounter Care Teams Felt Finisher Relationship Specialty Start Date End Date Kassy Jay MD [address] [place] [place] [place] [phone] PCP - General Family Practice 12/04/22 documented as of this encounter
--- OUTSIDE RECORDS SUMMARY | 2025-06-16 09:20 | XMS_ITS | Encounter Summary ---
Author Organization [facility] Address [address] [place] [address] Care Team Providers Care Director Talent Name Role Phone Kassy Jay MD Primary Care Provider [phone] Encounter Details Date Type Department Care Team (Latest Contact Info) Description 04/13/2002 Outpatient Historical [facility] [place] [address] [facility] [address] [place] [address] UNS ASTHMA WOSTATUS ASTHMATICUS (Primary Dx) Social History Tobacco Use Types Packs/Day Years Used Date Smoking Tobacco: Never Assessed Comments Unknown Sex and Gender Information Value Date Recorded Sex Assigned at Not on file Legal Sex Female 4:02 AM DEFENCE FORCE MEMBER OTHER RANKS Gender Identity Not on file Sexual Orientation Not on file documented as of this encounter Plan of Treatment Upcoming Encounters Date Type Department Care Team (Late st Contact Info) Description 06/26/2025 9:00 AM CDT Video Visit [facility] Adult Psychiatry [address] [address] Argelia Law NP [address] [phone] 08/08/2025 7:30 AM DEFENCE FORCE MEMBER OTHER RANKS Video Visit [facility] Adult Psychiatry [address] [address] Argelia Law, EMERGENCY ROOM RN [address] [place] [address] [address] [place] [address] 09/25/2025 8:00 AM DEFENCE FORCE MEMBER OTHER RANKS Office Visit [facility] Primary Care - Kirby Herrmann [address] [place] [address] Kassy Jay MD [address] [place] [address] [address] documented as of this encounter Visit Diagnoses Diagnosis Unspecified asthma(493.90)- Primary Unspecified asthma documented in this encounter Additional Health Concerns Infection Onset Date Last Indicated Resolved Time R/O COVID-19 06/02/2021 06/03/2021 06/03/2021 7:34 PM CDT R/O COVID-19 12/22/2022 12/22/2022 12/22/2022 12:2 5 PM CDT R/O COVID-19 09/07/2023 09/07/2023 09/07/2023 9:52 PM DEFENCE FORCE MEMBER OTHER RANKS documented as of this encounter Care Teams Director Talent Relationship Specialty Start Date End Date Kassy Jay MD [address] [place] [address] [address] PCP - General Family Practice 12/04/22 documented as of this encounter
--- OUTSIDE RECORDS SUMMARY | 2025-06-16 09:20 | XMS_ITS | Encounter Summary ---
Author Organization [facility] Address [address] [place] [address] Care Team Providers Care Academic Affairs Dean Name Role Phone Kassy Jay MD Primary Care Provider [phone] Encounter Details Date Type Department Care Team (Late Contact Info) Description 04/18/2002 Outpatient Historical [facility] Pediatric[facility] - [facility] [address] [facility] [address] [place] [address] [place] [address] [address] [facility] [address] [place] [address] Social History Tobacco Use Types Packs/Day Years Used Date Smoking Tobacco: Never Assessed Comments Unknown Sex and Gender Information Value Date Recorded Sex Assigned at Not on file Legal Sex Female 4:02 AM SAFETY TEACHER Gender Identity Not on file Sexual Orientation Not on file documented as of this encounter Plan of Treatment Upcoming Encounters Date Type Department Care Team (Late Contact Info) Description 06/26/2025 9:00 AM CDT Video Visit [facility] Adult Psychiatry [place] [address] [phone] Argelia Law NP [address] [address] 08/08/2025 7:30 AM SAFETY TEACHER Video Visit [facility] Adult Psychiatry [place] [address] [place] [address] [address] [address] [address] Argelia Law NP 1420 [facility] [address] [address] [address] 09/25/2025 8:00 AM SAFETY TEACHER Office Visit [facility] Primary Care - Kirby Herrmann [address] [address] [address] Kassy Jay MD [address] [place] [address] [address] documented as of this encounter Visit Diagnoses Not on filedocumented in this encounter Additional Health Concerns Infection Onset Date Last Indicated Resolved Time R/O COVID-19 06/02/2021 06/03/2021 06/03/2021 7:34 PM CDT R/O COVID-19 12/22/2022 12/22/2022 12/22/2022 12:2 5 PM CDT R/O COVID-19 09/07/2023 09/07/2023 09/07/2023 9:52 PM SAFETY TEACHER documented as of this encounter Care Teams Academic Affairs Dean Relationship Specialty Start Date End Date Kassy Jay MD [address] [place] [address] [address] PCP - General Family Practice 12/04/22 documented as of this encounter
--- OUTSIDE RECORDS SUMMARY | 2025-06-16 09:20 | XMS_ITS | Encounter Summary ---
Author Organization [facility] Address [address] [place] [address] Care Team Providers Care Knifer Up Name Role Phone Kassy Jay MD Primary Care Provider [phone] Encounter Details Date Type Department Care Team (Late Contact Info) Description 04/07/2002 Outpatient Historical [facility] - [facility] [address] [address] [facility] [address] [place] [address] Darren Tabor MD NO ADDRESS ON FILE Social History Tobacco Use Types Packs/Day Years Used Date Smoking Tobacco: Never Assessed Comments Unknown Sex and Gender Information Value Date Recorded Sex Assigned at Not on file Legal Sex Female 4:02 AM BILLING CUSTOMER SERVICE REPRESENTATIVE Gender Identity Not on file Sexual Orientation Not on file documented as of this encounter Plan of Treatment Upcoming Encounters Date Type Department Care Team (Late Contact Info) Description 06/26/2025 9:00 AM CDT Video Visit [facility] Psychiat[facility] [address] [phone] Argelia Law NP [address] [place] [address] 08/08/2025 7:30 AM BILLING CUSTOMER SERVICE REPRESENTATIVE Video Visit [facility] [address] [address] Argelia Law NP [address] [place] [address] [address] [address] [place] [address] 09/25/2025 8:00 AM BILLING CUSTOMER SERVICE REPRESENTATIVE Office Visit [facility] Primary Care - Kirby Herrmann [address] [place] [address] [address] Kassy Jay MD [address] [phone] documented as of this encounter Visit Diagnoses Not on filedocumented in this encounter Additional Health Concerns Infection Onset Date Last Indicated Resolved Time R/O COVID-19 06/02/2021 06/03/2021 06/03/2021 7:34 PM CDT R/O COVID-19 12/22/2022 12/22/2022 12/22/2022 12:2 5 PM CDT R/O COVID-19 09/07/2023 09/07/2023 09/07/2023 9:52 PM BILLING CUSTOMER SERVICE REPRESENTATIVE documented as of this encounter Care Teams Knifer Up Relationship Specialty Start Date End Date Kassy Jay MD [address] [phone] PCP - General Family Practice 12/04/22 documented as of this encounter
--- OUTSIDE RECORDS SUMMARY | 2025-06-16 09:20 | XMS_ITS | Encounter Summary ---
Author Organization [facility] Address [address] [place] [address] Care Team Providers Care Medical Librarian Name Role Phone Kassy Jay MD Primary Care Provider [phone] Encounter Details Date Type Department Care Team (Late Contact Info) Description 07/06/2002 Outpatient Historical [facility] Pediatrics - [facility] [address] [facility] [address] [place] [address] [place] [address] [place] [address] Social History Tobacco Use Types Packs/Day Years Used Date Smoking Tobacco: Never Assessed Comments Unknown Sex and Gender Information Value Date Recorded Sex Assigned at Not on file Legal Sex Female 4:02 AM HOSE MENDER Gender Identity Not on file Sexual Orientation Not on file documented as of this encounter Plan of Treatment Upcoming Encounters Date Type Department Care Team (Late Contact Info) Description 06/26/2025 9:00 AM CDT Video Visit [facility] Adult Psychiatry [place] [address] [phone] Argelia Law NP [address] [address] 08/08/2025 7:30 AM HOSE MENDER Video Visit [facility] Adult Psychiatry [place] [address] [address] [address] [address] [address] Argelia Law NP 1420 [facility] [address] [address] 09/25/2025 8:00 AM HOSE MENDER Office Visit [facility] Primary Care - Kirby Herrmann [address] [place] [address] Kassy Jay MD [address] [place] [address] [address] documented as of this encounter Visit Diagnoses Not on filedocumented in this encounter Additional Health Concerns Infection Onset Date Last Indicated Resolved Time R/O COVID-19 06/02/2021 06/03/2021 06/03/2021 7:34 PM CDT R/O COVID-19 12/22/2022 12/22/2022 12/22/2022 12:2 5 PM CDT R/O COVID-19 09/07/2023 09/07/2023 09/07/2023 9:52 PM HOSE MENDER documented as of this encounter Care Teams Medical Librarian Relationship Specialty Start Date End Date Kassy Jay MD [address] [place] [address] [phone] PCP - General Family Practice 12/04/22 documented as of this encounter
--- OUTSIDE RECORDS SUMMARY | 2025-06-16 09:20 | XMS_ITS | Encounter Summary ---
Author Organization [facility] Address [address] [place] [address] Care Team Providers Care Air Compressor Mechanic Name Role Phone Kassy Jay MD Primary Care Provider [phone] Encounter Details Date Type Department Care Team (Late Contact Info) Description 02/13/2005 Outpatient Historical [facility] [address] [facility] [address] [address] Gustavo Sims Social History Tobacco Use Types Packs/Day Years Used Date Smoking Tobacco: Never Assessed Comments Unknown Sex and Gender Information Value Date Recorded Sex Assigned at Not on file Legal Sex Female 4:02 AM TYPING SECTION CHIEF Gender Identity Not on file Sexual Orientation Not on file documented as of this encounter Plan of Treatment Upcoming Encounters Date Type Department Care Team ([facility] Contact Info) Description 06/26/2025 9:00 AM CDT Video Visit [facility] Adult [facility]iatry [address] [phone] Argelia Law NP [address] [place] [address] 08/08/2025 7:30 AM TYPING SECTION CHIEF Video Visit [facility] [address] [address] Agrelia Law NP [address] [place] [address] [place] [address] 09/25/2025 8:00 AM TYPING SECTION CHIEF Office Visit [facility] Primary Care - Kirby Herrmann [address] [place] [address] [address] Kassy Jay MD [address] [place] [address] documented as of this encounter Visit Diagnoses Not on filedocumented in this encounter Additional Health Concerns Infection Onset Date Last Indicated Resolved Time R/O COVID-19 06/02/2021 06/03/2021 06/03/2021 7:34 PM CDT R/O COVID-19 12/22/2022 12/22/2022 12/22/2022 12:2 5 PM CDT R/O COVID-19 09/07/2023 09/07/2023 09/07/2023 9:52 PM TYPING SECTION CHIEF documented as of this encounter Care Teams Air Compressor Mechanic Relationship Specialty Start Date End Date Kassy Jay MD [address] [place] [phone] PCP - General Family Practice 12/04/22 documented as of this encounter
--- OUTSIDE RECORDS SUMMARY | 2025-06-16 09:20 | XMS_ITS | Encounter Summary ---
Author Organization [facility] Address [address] [place] [address] Care Team Providers Care Union Steward Name Role Phone Kassy Jay MD Primary Care Provider [phone] Encounter Details Date Type Department Care Team (Latest Contact Info) Description 03/27/2004 Outpatient Historical [facility] Gustavo Sims ASTHMA UNSPECIFIED (Primary Dx) Social History Tobacco Use Types Packs/Day Years Used Date Smoking Tobacco: Never Assessed Comments Unknown Sex and Gender Information Value Date Recorded Sex Assigned at Not on file Legal Sex Female 4:02 AM SPRINKLER FITTER Gender Identity Not on file Sexual Orientation Not on file documented as of this encounter Plan of Treatment Upcoming Encounters Date Type Department Care Team (Late st Contact Info) Description 06/26/2025 9:00 AM CDT Video Visit [facility] Adult Psychiatry [address] [place] [address] Argelia Law NP [address] [place] [address] [place] [address] 08/08/2025 7:30 AM SPRINKLER FITTER Video Visit [facility] Adult Psychiatry [address] [place] [address] Argelia Law NP [address] [place] [address] [place] [address] 09/25/2025 8:00 AM SPRINKLER FITTER Office Visit [facility] Primary Care - Kirby Herrmann [address] [place] [address] [phone] Kassy Jay MD [address] [place] [phone] documented as of this encounter Visit Diagnoses Diagnosis Unspecified asthma(493.90)- Primary Unspecified asthma documented in this encounter Additional Health Concerns Infection Onset Date Last Indicated Resolved Time R/O COVID-19 06/02/2021 06/03/2021 06/03/2021 7:34 PM CDT R/O COVID-19 12/22/2022 12/22/2022 12/22/2022 12:2 5 PM CDT R/O COVID-19 09/07/2023 09/07/2023 09/07/2023 9:52 PM SPRINKLER FITTER documented as of this encounter Care Teams Union Steward Relationship Specialty Start Date End Date Kassy Jay MD [address] [place] [phone] PCP - General Family Practice 12/04/22 documented as of this encounter
--- OUTSIDE RECORDS SUMMARY | 2025-06-16 09:20 | XMS_ITS | Encounter Summary ---
Author Organization [facility] Address [address] [place] [address] Care Team Providers Care Risk Management Consultant Name Role Phone Kassy Jay MD Primary Care Provider [phone] Encounter Details Date Type Department Care Team (Late Contact Info) Description 12/15/2003 Outpatient Historical [facility] [address] [facility] [address] [address] Gustavo Sims Social History Tobacco Use Types Packs/Day Years Used Date Smoking Tobacco: Never Assessed Comments Unknown Sex and Gender Information Value Date Recorded Sex Assigned at Not on file Legal Sex Female 4:02 AM GUIDE CRUISE Gender Identity Not on file Sexual Orientation Not on file documented as of this encounter Plan of Treatment Upcoming Encounters Date Type Department Care Team ([facility] Contact Info) Description 06/26/2025 9:00 AM CDT Video Visit [facility] Adult Psychiatry [address] [phone] Argelia Law NP [address] [place] [address] 08/08/2025 7:30 AM GUIDE CRUISE Video Visit [facility] Adult Psychiatry [address] [address] Argelia Law NP [address] [place] [address] [place] [address] 09/25/2025 8:00 AM GUIDE CRUISE Office Visit [facility] Primary Care - Kirby Herrmann [address] [place] [address] [address] Kassy Jay MD [address] [place] [address] [address] documented as of this encounter Visit Diagnoses Not on filedocumented in this encounter Additional Health Concerns Infection Onset Date Last Indicated Resolved Time R/O COVID-19 06/02/2021 06/03/2021 06/03/2021 7:34 PM CDT R/O COVID-19 12/22/2022 12/22/2022 12/22/2022 12:2 5 PM CDT R/O COVID-19 09/07/2023 09/07/2023 09/07/2023 9:52 PM GUIDE CRUISE documented as of this encounter Care Teams Risk Management Consultant Relationship Specialty Start Date End Date Kassy Jay MD [address] [place] [address] [phone] PCP - General Family Practice 12/04/22 documented as of this encounter
--- OUTSIDE RECORDS SUMMARY | 2025-06-16 09:20 | XMS_ITS | Encounter Summary ---
Author Organization [facility] Address [address] [place] [address] Care Team Providers Care Layout Man Name Role Phone Kassy Jay MD Primary Care Provider [phone] Encounter Details Date Type Department Care Team (Late Contact Info) Description 04/25/2003 Outpatient Historical [facility] Pediatrics - [facility] [address] [place] [address] [place] [address] [place] [address] Social History Tobacco Use Types Packs/Day Years Used Date Smoking Tobacco: Never Assessed Comments Unknown Sex and Gender Information Value Date Recorded Sex Assigned at Not on file Legal Sex Female 4:02 AM TRAINING ASSOCIATE Gender Identity Not on file Sexual Orientation Not on file documented as of this encounter Plan of Treatment Upcoming Encounters Date Type Department Care Team (Late Contact Info) Description 06/26/2025 9:00 AM CDT Video Visit [facility] Adult Psychiatry [place] [address] [phone] Argelia Law NP [address] [address] 08/08/2025 7:30 AM TRAINING ASSOCIATE Video Visit [facility] Adult Psychiatry [place] [address] [place] [address] [address] Argelia Law NP [address] [facility] [address] [address] 09/25/2025 8:00 AM TRAINING ASSOCIATE Office Visit [facility] Primary Care - Kirby Herrmann [address] [place] [address] Kassy Jay MD [address] [place] [address] [phone] documented as of this encounter Visit Diagnoses Not on filedocumented in this encounter Additional Health Concerns Infection Onset Date Last Indicated Resolved Time R/O COVID-19 06/02/2021 06/03/2021 06/03/2021 7:34 PM CDT R/O COVID-19 12/22/2022 12/22/2022 12/22/2022 12:2 5 PM CDT R/O COVID-19 09/07/2023 09/07/2023 09/07/2023 9:52 PM TRAINING ASSOCIATE documented as of this encounter Care Teams Layout Man Relationship Specialty Start Date End Date Kassy Jay MD [address] [place] [address] [phone] PCP - General Family Practice 12/04/22 documented as of this encounter
--- OUTSIDE RECORDS SUMMARY | 2025-06-16 09:20 | XMS_ITS | Encounter Summary ---
Author Organization [facility] Address [address] [place] [address] Care Team Providers Care Pizza [employer] Team Member Name Role Phone Kassy Jay MD Primary Care Provider [phone] Encounter Details Date Type Department Care Team (Late Contact Info) Description 02/13/2005 Outpatient Historical [facility] Children[facility] Respiratory [facility] Sleep Medicine [address] [facility] [address] [address] Gustavo Sims Social History Tobacco Use Types Packs/Day Years Used Date Smoking Tobacco: Never Assessed Comments Unknown Sex and Gender Information Value Date Recorded Sex Assigned at Not on file Legal Sex Female 4:02 AM MANAGEMENT SME Gender Identity Not on file Sexual Orientation Not on file documented as of this encounter Plan of Treatment Upcoming Encounters Date Type Department Care Team ([facility] Contact Info) Description 06/26/2025 9:00 AM CDT Video Visit [facility] Adult Psychiatry [address] [phone] Argelia Law NP [address] [place] [address] 08/08/2025 7:30 AM MANAGEMENT SME Video Visit [facility] Adult Psychiatry [address] [phone] Argelia Law NP [address] [place] [address] [place] [address] 09/25/2025 8:00 AM MANAGEMENT SME Office Visit [facility] Primary Care - Kirby Herrmann [address] [place] [phone] Kassy Jay MD [address] [place] [phone] documented as of this encounter Visit Diagnoses Not on filedocumented in this encounter Additional Health Concerns Infection Onset Date Last Indicated Resolved Time R/O COVID-19 06/02/2021 06/03/2021 06/03/2021 7:34 PM CDT R/O COVID-19 12/22/2022 12/22/2022 12/22/2022 12:2 5 PM CDT R/O COVID-19 09/07/2023 09/07/2023 09/07/2023 9:52 PM MANAGEMENT SME documented as of this encounter Care Teams Pizza Hut Team Member Relationship Specialty Start Date End Date Kassy Jay MD [address] [place] [place] [address] [phone] PCP - General Family Practice 12/04/22 documented as of this encounter
--- OUTSIDE RECORDS SUMMARY | 2025-06-16 09:20 | XMS_ITS | Encounter Summary ---
Author Organization [facility] Address [address] [place] [address] Care Team Providers Care Manager Target Name Role Phone Kassy Jay MD Primary Care Provider [phone] Encounter Details Date Type Department Care Team (Late Contact Info) Description 02/10/2003 Outpatient Historical [facility] - [facility] [address] [place] [address] [place] [address] [place] [address] Social History Tobacco Use Types Packs/Day Years Used Date Smoking Tobacco: Never Assessed Comments Unknown Sex and Gender Information Value Date Recorded Sex Assigned at Not on file Legal Sex Female 4:02 AM PIPING SUPERVISOR Gender Identity Not on file Sexual Orientation Not on file documented as of this encounter Plan of Treatment Upcoming Encounters Date Type Department Care Team (Late Contact Info) Description 06/26/2025 9:00 AM CDT Video Visit [facility] Adult Psychiatry [place] [address] [phone] Argelia Law NP [address] [address] 08/08/2025 7:30 AM PIPING SUPERVISOR Video Visit [facility] Adult Psychiatry [place] [address] [place] [address] [address] [address] Argelia Law NP [address] [facility] [address] [address] 09/25/2025 8:00 AM PIPING SUPERVISOR Office Visit [facility] Primary Care - Kirby Herrmann [address] [place] [address] [address] Kassy Jay MD [address] [place] [address] [phone] documented as of this encounter Visit Diagnoses Not on filedocumented in this encounter Additional Health Concerns Infection Onset Date Last Indicated Resolved Time R/O COVID-19 06/02/2021 06/03/2021 06/03/2021 7:34 PM CDT R/O COVID-19 12/22/2022 12/22/2022 12/22/2022 12:2 5 PM CDT R/O COVID-19 09/07/2023 09/07/2023 09/07/2023 9:52 PM PIPING SUPERVISOR documented as of this encounter Care Teams Manager Target Relationship Specialty Start Date End Date Kassy Jay MD [address] [place] [address] [phone] PCP - General Family Practice 12/04/22 documented as of this encounter
--- OUTSIDE RECORDS SUMMARY | 2025-06-16 09:20 | XMS_ITS | Encounter Summary ---
Author Organization [facility] Address [address] [place] [address] Care Team Providers Care Pump Servicer Supervisor Name Role Phone Kassy Jay MD Primary Care Provider [phone] Encounter Details Date Type Department Care Team (Late Contact Info) Description 04/13/2002 Outpatient Historical [facility] Department of Peds at [address] [phone] Diandra Brown MD [address] [facility] [address] [address] Social History Tobacco Use Types Packs/Day Years Used Date Smoking Tobacco: Never Assessed Comments Unknown Sex and Gender Information Value Date Recorded Sex Assigned at Not on file Legal Sex Female 4:02 AM INFORMATION SCIENTIST Gender Identity Not on file Sexual Orientation Not on file documented as of this encounter Plan of Treatment Upcoming Encounters Date Type Department Care Team (Late Contact Info) Description 06/26/2025 9:00 AM CDT Video Visit [facility] Adult Psychiatry [place] [address] [phone] Argelia Law NP [address] [address] 08/08/2025 7:30 AM INFORMATION SCIENTIST Video Visit [facility] Adult Psychiatry [place] [address] [place] [address] [address] [address] Argelia Law NP 1420 [facility] [address] [address] 09/25/2025 8:00 AM INFORMATION SCIENTIST Office Visit [facility] Primary Care - Kirby Herrmann [address] [place] [address] [address] Kassy Jay MD [address] [place] [address] [phone] documented as of this encounter Visit Diagnoses Not on filedocumented in this encounter Additional Health Concerns Infection Onset Date Last Indicated Resolved Time R/O COVID-19 06/02/2021 06/03/2021 06/03/2021 7:34 PM CDT R/O COVID-19 12/22/2022 12/22/2022 12/22/2022 12:2 5 PM CDT R/O COVID-19 09/07/2023 09/07/2023 09/07/2023 9:52 PM INFORMATION SCIENTIST documented as of this encounter Care Teams Pump Servicer Supervisor Relationship Specialty Start Date End Date Kassy Jay MD [address] [place] [address] [phone] PCP - General Family Practice 12/04/22 documented as of this encounter
--- OUTSIDE RECORDS SUMMARY | 2025-06-16 09:21 | XMS_ITS | Encounter Summary ---
Author Organization [facility] Address [address] [place] [address] Care Team Providers Care Ring Making Machine Operator Name Role Phone Kassy Jay MD Primary Care Provider [phone] Encounter Details Date Type Department Care Team (Late Contact Info) Description 07/18/2005 Outpatient Historical [facility] Pediatrics - [facility] [address] [facility] [address] [place] [address] [place] [address] [place] [address] Social History Tobacco Use Types Packs/Day Years Used Date Smoking Tobacco: Never Assessed Comments Unknown Sex and Gender Information Value Date Recorded Sex Assigned at Not on file Legal Sex Female 4:02 AM TELEMARKETING MANAGER Gender Identity Not on file Sexual Orientation Not on file documented as of this encounter Plan of Treatment Upcoming Encounters Date Type Department Care Team (Late Contact Info) Description 06/26/2025 9:00 AM CDT Video Visit [facility] Adult Psychiatry [place] [address] [phone] Argelia Law NP [address] [address] 08/08/2025 7:30 AM TELEMARKETING MANAGER Video Visit [facility] Adult Psychiatry [place] [address] [place] [address] [address] [address] Argelia Law NP 1420 [facility] [address] [address] 09/25/2025 8:00 AM TELEMARKETING MANAGER Office Visit [facility] Primary Care - Kirby Herrmann [address] [place] [address] [address] Kassy Jay MD [address] [place] [address] [address] documented as of this encounter Visit Diagnoses Not on filedocumented in this encounter Additional Health Concerns Infection Onset Date Last Indicated Resolved Time R/O COVID-19 06/02/2021 06/03/2021 06/03/2021 7:34 PM CDT R/O COVID-19 12/22/2022 12/22/2022 12/22/2022 12:2 5 PM CDT R/O COVID-19 09/07/2023 09/07/2023 09/07/2023 9:52 PM TELEMARKETING MANAGER documented as of this encounter Care Teams Ring Making Machine Operator Relationship Specialty Start Date End Date Kassy Jay MD [address] [place] [phone] PCP - General Family Practice 12/04/22 documented as of this encounter
--- OUTSIDE RECORDS SUMMARY | 2025-06-16 09:21 | XMS_ITS | Encounter Summary ---
Author Organization [facility] Address [address] [place] [address] Care Team Providers Care Business Services Associate Name Role Phone Kassy Jay MD Primary Care Provider [phone] Encounter Details Date Type Department Care Team (Late Contact Info) Description 02/24/2001 Outpatient Historical [facility] Pediatrics - [facility] [address] [facility] [address] [place] [address] [place] [address] [place] [address] Social History Tobacco Use Types Packs/Day Years Used Date Smoking Tobacco: Never Assessed Comments Unknown Sex and Gender Information Value Date Recorded Sex Assigned at Not on file Legal Sex Female 4:02 AM FOLDING MACHINE TENDER Gender Identity Not on file Sexual Orientation Not on file documented as of this encounter Plan of Treatment Upcoming Encounters Date Type Department Care Team (Late Contact Info) Description 06/26/2025 9:00 AM CDT Video Visit [facility] Adult Psychiatry [place] [address] [phone] Argelia Law NP [address] [address] 08/08/2025 7:30 AM FOLDING MACHINE TENDER Video Visit [facility] Adult Psychiatry [place] [address] [place] [address] [address] [address] Argelia Law NP 1420 [facility] [address] [address] 09/25/2025 8:00 AM FOLDING MACHINE TENDER Office Visit [facility] Primary Care - Kirby Herrmann [address] [place] [address] [address] [address] Kassy Jay MD [address] [place] [address] [address] documented as of this encounter Visit Diagnoses Not on filedocumented in this encounter Additional Health Concerns Infection Onset Date Last Indicated Resolved Time R/O COVID-19 06/02/2021 06/03/2021 06/03/2021 7:34 PM CDT R/O COVID-19 12/22/2022 12/22/2022 12/22/2022 12:2 5 PM CDT R/O COVID-19 09/07/2023 09/07/2023 09/07/2023 9:52 PM FOLDING MACHINE TENDER documented as of this encounter Care Teams Business Services Associate Relationship Specialty Start Date End Date Kassy Jay MD [address] [place] [place] [place] [address] [phone] PCP - General Family Practice 12/04/22 documented as of this encounter
--- OUTSIDE RECORDS SUMMARY | 2025-06-16 09:21 | XMS_ITS | Encounter Summary ---
Author Organization [facility] Address [address] [place] [address] Care Team Providers Care Automotive Dismantler Name Role Phone Kassy Jay MD Primary Care Provider [phone] Encounter Details Date Type Department Care Team (Late st Contact Info) Description 04/28/2006 Orders Only [facility] Pediatrics - [facility] [address] [facility] [address] [place] [address] [place] [address] [facility] [address] [place] [address] Social History Tobacco Use Types Packs/Day Years Used Date Smoking Tobacco: Never Assessed Comments Unknown Sex and Gender Information Value Date Recorded Sex Assigned at Not on file Legal Sex Female 4:02 AM WELL TENDER Gender Identity Not on file Sexual Orientation Not on file documented as of this encounter Progress Notes * Lacie Malik MD - 06/29/2008 9:55 PM CDT TIME:10:41 am PATIENT`S HOME PHONE: PATIENT`S WORK PHONE: PATIENT`S INSURANCE: [facility] WHO TOOK THE CALL: Alana Ba A PATIENT'S AGE: 6 yrs, 2 mths, 0 wks, 1 day GENERAL INFORMATION PCP: King. WHO CALLED: Patient`s father called. SECTION 1: REQUESTED ACTION: [facility] 04/28/06 at 10:42 am MEDICATION REQUEST: Epi-Pen needed for school. Dad states this script is written each year for her school. [address] in [place].////[place] DOCTOR`S RESPONSE: nicole 04/28/06 at 11:33 am [...] AM CDT Video Visit [facility] Adult Psychiatry [address] [address] Argelia Law NP [address] [place] [address] 08/08/2025 7:30 AM WELL TENDER Video Visit [facility] Adult Psychiatry [address] [address] Argelia Law NP [address] [place] [address] 09/25/2025 8:00 AM WELL TENDER Office Visit [facility] Primary [place] [address] [place] [address] Kassy Jay MD [address] [place] [address] documented as of this encounter Visit Diagnoses Not on filedocumented in this encounter Additional Health Concerns Infection Onset Date Last Indicated Resolved Time R/O COVID-19 06/02/2021 06/03/2021 06/03/2021 7:34 PM CDT R/O COVID-19 12/22/2022 12/22/2022 12/22/2022 12:2 5 PM CDT R/O COVID-19 09/07/2023 09/07/2023 09/07/2023 9:52 PM WELL TENDER documented as of this encounter Care Teams Automotive Dismantler Relationship Specialty Start Date End Date Kassy Jay MD [address] [place] [phone] PCP - General Family Practice 12/04/22 documented as of this encounter
--- OUTSIDE RECORDS SUMMARY | 2025-06-16 09:21 | XMS_ITS | Encounter Summary ---
Author Organization [facility] Address [address] [place] [address] Care Team Providers Care Direct Marketing Manager Name Role Phone Kassy Jay MD [...] on file Legal Sex Female 4:02 AM GARDENING MANAGER Gender Identity Not on file Sexual Orientation Not on file documented as of this encounter Plan of Treatment Upcoming Encounters Date Type Department Care Team (Late st Contact Info) Description 06/26/2025 9:00 AM CDT Video Visit [facility] Adult Psychiatry [address] [place] [address] Argelia Law NP [address] [place], [place] [address] [place] [id number] 08/08/2025 7:30 AM GARDENING MANAGER Video Visit [facility] Adult Psychiatry [address] [address] Argelia Law NP [address] [place] [address] [place] [address] 09/25/2025 8:00 AM GARDENING MANAGER Office Visit [facility] Primary Care - Kirby Herrmann [address] [place] [address] [address] Kassy Jay MD [address] [place] [place] [phone] documented as of this encounter Visit Diagnoses Diagnosis Extrinsic asthma, unspecified- Primary documented in this encounter Additional Health Concerns Infection Onset Date Last Indicated Resolved Time R/O COVID-19 06/02/2021 06/03/2021 06/03/2021 7:34 PM CDT R/O COVID-19 12/22/2022 12/22/2022 12/22/2022 12:2 5 PM CDT R/O COVID-19 09/07/2023 09/07/2023 09/07/2023 9:52 PM GARDENING MANAGER documented as of this encounter Care Teams Direct Marketing Manager Relationship Specialty Start Date End Date Kassy Jay MD [address] [place] [address] PCP - General Family Practice 12/04/22 documented as of this encounter
--- OUTSIDE RECORDS SUMMARY | 2025-06-16 09:21 | XMS_ITS | Encounter Summary ---
Author Organization [facility] Address [address] [place] [address] Care Team Providers Care Construction Person Name Role Phone Kassy Jay MD Primary Care Provider [phone] Encounter Details Date Type Department Care Team ([facility] Contact Info) Description 05/21/2005 Outpatient Historical [facility] Pediatrics - [facility] [address] [place] [address] Garrett Mittal MD [address] [facility] [address] [place] [address] Social History Tobacco Use Types Packs/Day Years Used Date Smoking Tobacco: Never Assessed Comments Unknown Sex and Gender Information Value Date Recorded Sex Assigned at Not on file Legal Sex Female 4:02 AM SOLUTION SALES SENIOR EXECUTIVE Gender Identity Not on file Sexual Orientation [...] Department Care Team ([facility] Contact Info) Description 06/26/2025 9:00 AM CDT Video Visit [facility] Adult Psychiatry [place] [address] [address] [place] [address] Argelia Law, SERVICE ADVISOR [address] [address] [place] [address] 08/08/2025 7:30 AM SOLUTION SALES SENIOR EXECUTIVE Video Visit [facility] Adult Psychiatry [place] [address] [address] [place] [address] Thanh Argelia Lopez, ARAMIS [address] [address] [place] [address] 09/25/2025 8:00 AM SOLUTION SALES SENIOR EXECUTIVE Office Visit [facility] Primary Care - Kirby Herrmann [address] [place] [address] [address] Kassy Jay MD [address] [place] [place] [address] documented as of this encounter Visit Diagnoses Not on filedocumented in this encounter Additional Health Concerns Infection Onset Date Last Indicated Resolved Time R/O COVID-19 06/02/2021 06/03/2021 06/03/2021 7:34 PM CDT R/O COVID-19 12/22/2022 12/22/2022 12/22/2022 12:2 5 PM CDT R/O COVID-19 09/07/2023 09/07/2023 09/07/2023 9:52 PM SOLUTION SALES SENIOR EXECUTIVE documented as of this encounter Care Teams Construction Person Relationship Specialty Start Date End Date Kassy Jay MD [address] [address] PCP - General Family Practice 12/04/22 documented as of this encounter
--- OUTSIDE RECORDS SUMMARY | 2025-06-16 09:21 | XMS_ITS | Encounter Summary ---
Author Organization [facility] Address [address] [place] [address] Care Team Providers Care Welding Machine Assembler Name Role Phone Kassy Jay MD Primary Care Provider [phone] Encounter Details Date Type Department Care Team (Late Contact Info) Description 01/01/[address] [facility] Childrens Respiratory and Sleep Medicine [address] [facility] [address] [address] Gustavo Sims Social History Tobacco Use Types Packs/Day Years Used Date Smoking Tobacco: Never Assessed Comments Unknown Sex and Gender Information Value Date Recorded Sex Assigned at Not on file Legal Sex Female 4:02 AM INTERNAL GRINDER Gender Identity Not on file Sexual Orientation Not on file documented as of this encounter Plan of Treatment Upcoming Encounters Date Type Department Care Team ([facility] Contact Info) Description 06/26/2025 9:00 AM CDT Video Visit [facility] Adult Psychiatry [address] [phone] Argelia Law NP [address] [place] [address] 08/08/2025 7:30 AM INTERNAL GRINDER Video Visit [facility] Adult Psychiatry [address] [address] Argelia Law NP [address] [place] [address] [place] [address] 09/25/2025 8:00 AM INTERNAL GRINDER Office Visit [facility] Primary Care - Kirby Herrmann [address] [place] [address] [address] Kassy Jay MD [address] [place] [address] documented as of this encounter Visit Diagnoses Not on filedocumented in this encounter Additional Health Concerns Infection Onset Date Last Indicated Resolved Time R/O COVID-19 06/02/2021 06/03/2021 06/03/2021 7:34 PM CDT R/O COVID-19 12/22/2022 12/22/2022 12/22/2022 12:2 5 PM CDT R/O COVID-19 09/07/2023 09/07/2023 09/07/2023 9:52 PM INTERNAL GRINDER documented as of this encounter Care Teams Welding Machine Assembler Relationship Specialty Start Date End Date Kassy Jay MD [address] [phone] PCP - General Family Practice 12/04/22 documented as of this encounter
--- OUTSIDE RECORDS SUMMARY | 2025-06-16 09:21 | XMS_ITS | Encounter Summary ---
Author Organization [facility] Address [address] [place] [address] Care Team Providers Care White Shoe Examiner Name Role Phone Kassy Jay MD Primary Care Provider [phone] Encounter Details Date Type Department Care Team (Late Contact Info) Description 04/19/1999 Outpatient Historical [facility] Pediatrics - [facility] [address] [address] [facility] [address] [place] [address] Darren Tabor MD NO ADDRESS ON FILE Social History Tobacco Use Types Packs/Day Years Used Date Smoking Tobacco: Never Assessed Comments Unknown Sex and Gender Information Value Date Recorded Sex Assigned at Not on file Legal Sex Female 4:02 AM PULL OUT OPERATOR Gender Identity Not on file Sexual Orientation Not on file documented as of this encounter Plan of Treatment Upcoming Encounters Date Type Department Care Team (Late Contact Info) Description 06/26/2025 9:00 AM CDT Video Visit [facility] Adult Psychiatry [address] [address] Argelia Law NP [address] [place] [address] 08/08/2025 7:30 AM PULL OUT OPERATOR Video Visit [facility] Adult Psychiatry [address] [address] Argelia Law NP [address] [address] [place] [address] 09/25/2025 8:00 AM PULL OUT OPERATOR Office Visit [facility] Primary Care - Kirby Herrmann [address] [place] [address] [address] Kassy Jay MD [address] [place] [phone] documented as of this encounter Visit Diagnoses Not on filedocumented in this encounter Additional Health Concerns Infection Onset Date Last Indicated Resolved Time R/O COVID-19 06/02/2021 06/03/2021 06/03/2021 7:34 PM CDT R/O COVID-19 12/22/2022 12/22/2022 12/22/2022 12:2 5 PM CDT R/O COVID-19 09/07/2023 09/07/2023 09/07/2023 9:52 PM PULL OUT OPERATOR documented as of this encounter Care Teams White Shoe Examiner Relationship Specialty Start Date End Date Kassy Jay MD [address] [phone] PCP - General Family Practice 12/04/22 documented as of this encounter
--- OUTSIDE RECORDS SUMMARY | 2025-06-16 09:21 | XMS_ITS | Encounter Summary ---
Author Organization [facility] Address [address] [place] [address] Care Team Providers Care Clinic Director Name Role Phone Kassy Jay MD Primary Care Provider [phone] Encounter Details Date Type Department Care Team (Late Contact Info) Description 05/16/2006 Outpatient Historical [facility] Pediatrics - [facility] [address] [place] [address] [place] [address] [place] [address] Social History Tobacco Use Types Packs/Day Years Used Date Smoking Tobacco: Never Assessed Comments Unknown Sex and Gender Information Value Date Recorded Sex Assigned at Not on file Legal Sex Female 4:02 AM RELIGION PROFESSOR Gender Identity Not on file Sexual Orientation Not on file documented as of this encounter Plan of Treatment Upcoming Encounters Date Type Department Care Team (Late Contact Info) Description 06/26/2025 9:00 AM CDT Video Visit [facility] Adult Psychiatry [place] [address] [phone] Argelia Law NP [address] [address] 08/08/2025 7:30 AM RELIGION PROFESSOR Video Visit [facility] Adult Psychiatry [place] [address] [address] [place] [address] Argelia Law NP [address] [facility] [address] [place] [address] 09/25/2025 8:00 AM RELIGION PROFESSOR Office Visit [facility] Primary Care - Kirby Herrmann [address] [place] [address] [address] Kassy Jay MD [address] [place] [address] [address] documented as of this encounter Visit Diagnoses Not on filedocumented in this encounter Additional Health Concerns Infection Onset Date Last Indicated Resolved Time R/O COVID-19 06/02/2021 06/03/2021 06/03/2021 7:34 PM CDT R/O COVID-19 12/22/2022 12/22/2022 12/22/2022 12:2 5 PM CDT R/O COVID-19 09/07/2023 09/07/2023 09/07/2023 9:52 PM RELIGION PROFESSOR documented as of this encounter Care Teams Clinic Director Relationship Specialty Start Date End Date Kassy Jay MD [address] [place] [address] [phone] PCP - General Family Practice 12/04/22 documented as of this encounter
--- OUTSIDE RECORDS SUMMARY | 2025-06-16 09:21 | XMS_ITS | Encounter Summary ---
Author Organization [facility] Address [address] [place] [address] Care Team Providers Care Interactive Art Director Name Role Phone Kassy Jay MD Primary Care Provider [phone] Encounter Details Date Type Department Care Team ([facility] Contact Info) Description 09/04/2005 Outpatient Historical [facility] Childrens Respiratory and Sleep Medicine [address] [facility] [address] [address] Gustavo Sims Social History Tobacco Use Types Packs/Day Years Used Date Smoking Tobacco: Never Assessed Comments Unknown Sex and Gender Information Value Date Recorded Sex Assigned at Not on file Legal Sex Female 4:02 AM DRY CLEANER PRESSER Gender Identity Not on file Sexual Orientation Not on file documented as of this encounter Plan of Treatment Upcoming Encounters Date Type Department Care Team ([facility] Contact Info) Description 06/26/2025 9:00 AM CDT Video Visit [facility] Adult Psychiatry [address] [phone] Argelia Law NP [address] [place] [address] 08/08/2025 7:30 AM DRY CLEANER PRESSER Video Visit [facility] Adult Psychiatry [address] [address] Argelia Law NP [address] [place] [address] [place] [address] 09/25/2025 8:00 AM DRY CLEANER PRESSER Office Visit [facility] Primary Care - Kirby Herramnn [address] [place] [address] Kassy Jay MD [address] [place] [place] [address] documented as of this encounter Visit Diagnoses Not on filedocumented in this encounter Additional Health Concerns Infection Onset Date Last Indicated Resolved Time R/O COVID-19 06/02/2021 06/03/2021 06/03/2021 7:34 PM CDT R/O COVID-19 12/22/2022 12/22/2022 12/22/2022 12:2 5 PM CDT R/O COVID-19 09/07/2023 09/07/2023 09/07/2023 9:52 PM DRY CLEANER PRESSER documented as of this encounter Care Teams Interactive Art Director Relationship Specialty Start Date End Date Kassy Jay MD [address] [place] [place] [address] [phone] PCP - General Family Practice 12/04/22 documented as of this encounter
--- OUTSIDE RECORDS SUMMARY | 2025-06-16 09:21 | XMS_ITS | Encounter Summary ---
Author Organization [facility] Address [address] [place] [address] Care Team Providers Care Apprentice Embalmer Name Role Phone Kassy Jay MD Primary Care Provider [phone] Encounter Details Date Type Department Care Team (Late st Contact Info) Description 05/16/2006 Orders Only [facility] Pediatrics - [facility] [address] [address] [facility] [address] [place] [address] [place] [address] [facility] [address] [place] [address] Social History Tobacco Use Types Packs/Day Years Used Date Smoking Tobacco: Never Assessed Comments Unknown Sex and Gender Information Value Date Recorded Sex Assigned at Not on file Legal Sex Female 4:02 AM WEB CONTENT DEVELOPER Gender Identity Not on file Sexual [...] NEW PRESCRIPTION, 05/16/2006. LAB ORDERS: Order number: [id number] Test Ordered: STREPTOCOCCUS, GROUP A CULTURE 4485 Order number: [id number] Test Ordered: RAPID STREP [id number] RETURN VISIT/GUIDANCE: Instructed to:Take OTC meds as [...] Description 06/26/2025 9:00 AM CDT Video Visit [facility] Adult Psychiatry [address] [address] [place] [address] Thanh, Argelia Lopez NP [address] [address] [place] [address] 08/08/2025 7:30 AM WEB CONTENT DEVELOPER Video Visit [facility] Adult Psychiatry [address] [place] [address] Thanh, Argelia Lopez NP [address] [address] [place] [address] 09/25/2025 8:00 AM WEB CONTENT DEVELOPER Office Visit [facility] Primary Care - Kirby Herrmann [address] [place] [address] [address] Kassy Jay MD [address] [place] [address] [phone] documented as of this encounter Visit Diagnoses Not on filedocumented in this encounter Additional Health Concerns Infection Onset Date Last Indicated Resolved Time R/O COVID-19 06/02/2021 06/03/2021 06/03/2021 7:34 PM CDT R/O COVID-19 12/22/2022 12/22/2022 12/22/2022 12:2 5 PM CDT R/O COVID-19 09/07/2023 09/07/2023 09/07/2023 9:52 PM WEB CONTENT DEVELOPER documented as of this encounter Care Teams Apprentice Embalmer Relationship Specialty Start Date End Date Kassy Jay MD [address] [address] PCP - General Family Practice 12/04/22 documented as of this encounter
--- OUTSIDE RECORDS SUMMARY | 2025-06-16 09:21 | XMS_ITS | Encounter Summary ---
Author Organization [facility] Address [address] [place] [address] Care Team Providers Care Supervisor Education Name Role Phone Kassy Jay MD Primary Care Provider [phone] Encounter Details Date Type Department Care Team (Late Contact Info) Description 07/21/2005 Outpatient Historical [facility] Pediatrics - [facility] [address] [facility] [address] [place] [address] [place] [address] [place] [address] Social History Tobacco Use Types Packs/Day Years Used Date Smoking Tobacco: Never Assessed Comments Unknown Sex and Gender Information Value Date Recorded Sex Assigned at Not on file Legal Sex Female 4:02 AM AUTOMOTIVE ELECTRICAL FITTER Gender Identity Not on file Sexual Orientation Not on file documented as of this encounter Plan of Treatment Upcoming Encounters Date Type Department Care Team (Late Contact Info) Description 06/26/2025 9:00 AM CDT Video Visit [facility] Adult Psychiatry [place] [address] [address] Argelia Law NP [address] [address] 08/08/2025 7:30 AM AUTOMOTIVE ELECTRICAL FITTER Video Visit [facility] Adult Psychiatry [place] [address] [address] [place] [address] Argelia Law NP [address] [facility] [address] [place] [address] 09/25/2025 8:00 AM AUTOMOTIVE ELECTRICAL FITTER Office Visit [facility] Primary Care - Kirby Herrmann [address] [place] [address] Kassy Jay MD [address] [place] [address] documented as of this encounter Visit Diagnoses Not on filedocumented in this encounter Additional Health Concerns Infection Onset Date Last Indicated Resolved Time R/O COVID-19 06/02/2021 06/03/2021 06/03/2021 7:34 PM CDT R/O COVID-19 12/22/2022 12/22/2022 12/22/2022 12:2 5 PM CDT R/O COVID-19 09/07/2023 09/07/2023 09/07/2023 9:52 PM AUTOMOTIVE ELECTRICAL FITTER documented as of this encounter Care Teams Supervisor Education Relationship Specialty Start Date End Date Kassy Jay MD [address] [place] [address] [phone] PCP - General Family Practice 12/04/22 documented as of this encounter
--- OUTSIDE RECORDS SUMMARY | 2025-06-16 09:21 | XMS_ITS | Clinical Summary ---
Author Organization [facility] Address [address] [facility] [address] [address] Care Team Providers Care Therapeutic Radiologist Name Role Phone Kassy Jay MD Primary Care Provider [phone] Source Comments [facility] [employer],non-owned Affiliates and Associated Physician Practices is amultiple site organization consisting of ambulatory clinics and hospital sitesin [place], [place], [place] and [place]. This disclosure is being madepursuant to the Care Everywhere program and may not contain all information available regarding this patient. Last updated 18.[facility] [employer] Allergies Active Allergy Reactions Criticality Noted Date [...] Zyrtec & solumedrol given. Make appt with bone worker. 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 Recently started on diazoxide. BG meter [...] sent hypoglycemia labs. Discussed with veronica, outpatient leasing property manager Dr. Mejia will f/u with results & [...] Assessment & Plan: Patient reports follows with [facility] psychiatry. Pharmacy list confirmed with patient. Concern [...] Type Department Care Team Description 03/21/2025 Telephone [facility] - JUNIOR BUSINESS ANALYST [address] [place] [address] Sam Cui MD Itching Vaginal from [...] Industry Job Start Date Job End Date [employer] [facility] Not on file Not on file Not on file Last Filed Vital Signs Vital Sign Reading Time Taken Comments Blood Pressure 113/71 10/11/2024 2:05 PM FUDGE CANDY MAKER Pulse 82 10/11/2024 2:05 PM FUDGE CANDY MAKER Temperature 36.7 C (98.1 F) 10/11/2024 11:52 AM FUDGE CANDY MAKER Respiratory Rate 20 10/11/2024 2:05 PM FUDGE CANDY MAKER Oxygen Saturation 98% 10/11/2024 2:05 PM FUDGE CANDY MAKER Inhaled Oxygen Concentration - - Weight 81.6 kg (180 lb) 10/11/2024 11:52 AM FUDGE CANDY MAKER Height 154.9 cm (5' 1) 10/11/2024 11:52 AM FUDGE CANDY MAKER Body Mass Index 34.01 10/11/2024 11:52 AM FUDGE CANDY MAKER Plan of Treatment Upcoming Encounters Date Type Department Care Team (Late st Contact Info) Description 09/12/2025 9:45 AM FUDGE CANDY MAKER Office Visit [facility] - JUNIOR BUSINESS ANALYST [address] [place] [address], [facility] [address] [place] [address] [place] [address] [place] [address] [address] [place] [address] Health Maintenance [...] HR ALL PATH Routine 08/31/2023 10:35 AM FUDGE CANDY MAKER Routine cervical smear from Last 3 Months or Most Recently Relevant to Health Maintenance Results * PAP IG RFLX HPV HR ALL PATH (08/31/2023 10:35 AM FUDGE CANDY MAKER) Diagnosis [facility] INSURANCE BILL Comment: NEGATIVE FOR INTRAEPITHELIAL LESION OR MALIGNANCY. REACTIVE CELLULAR CHANGES AND/OR REPAIR ARE PRESENT. Specimen Adequacy [facility] INSURANCE BILL Comment: Satisfactory for evaluation. Endocervical and/or squamous metaplastic cells (endocervical component) are present. Clinician Provided ICD10 [facility] INSURANCE BILL Comment: Z01.419 Z12.4 Z97.5 Performed by [facility] INSURANCE BILL Comment:Casey Dunn hnologist (ASCP) Electronically Signed by [employer] INSURANCE BILL Comment:Mony Hermosillo MD, P athologist Comment . [facility] INSURANCE BILL Note [facility] INSURANCE BILL Comment: The Pap smear is a screening test designed to aid in the detection of premalignant and malignant conditions of the uterine cervix. It is not a diagnostic procedure and should not be used as the sole means of detecting cervical cancer. Both false-positive and false-negative reports do occur. . [facility] CPT Code Automation [facility] INSURANCE BILL Comment: This liquid based ThinPrep(R) pap test was screened with the use of an image guided system. Note [facility] INSURANCE BILL Comment: The HPV DNA reflex criteria were not met with this specimen result therefore, no HPV testing was performed. . Pathology/Cytolog y ENTIRE ENDOCERVIX / Unknown 08/31/2023 10:35 AM FUDGE CANDY MAKER 09/01/2023 Narrative [facility] INSURANCE BILL - 09/03/2023 3:09 PM FUDGE CANDY MAKER Source.............Cervix No. of containers..01 ThinPrep Vial Resulting Agency Comment Lab Testing performed at: [facility] [id number] Sam Cui MD LAB - PATHOLOGY/CYTOLOGY ORDERAB LES Final Result [facility] INSURANCE BILL [address] [place] [address] from Last 3 Months or Most Recently Relevant to Health Maintenance Insurance MEDICAID [employer] Care Teams Therapeutic Radiologist Relationship Specialty Start Date End Date Kassy Jay MD [address] [place] [phone] PCP - General Family Medicine 06/15/23
--- OUTSIDE RECORDS SUMMARY | 2025-06-16 09:21 | XMS_ITS | Encounter Summary ---
Author Organization [facility] Address [address] [place] [address] Care Team Providers Care Butadiene Converter Operator Name Role Phone Kassy Jay MD Primary Care Provider [phone] Encounter Details Date Type Department Care Team (Latest Contact Info) Description 01/01/2006 Outpatient Historical [facility] Gustavo Sims Extrinsic Asthma, Unspecified (Primary Dx) Social History Tobacco Use Types Packs/Day Years Used Date Smoking Tobacco: Never Assessed Comments Unknown Sex and Gender Information Value Date Recorded Sex Assigned at Not on file Legal Sex Female 4:02 AM MILIEU TECHNICIAN Gender Identity Not on file Sexual Orientation Not on file documented as of this encounter Plan of Treatment Upcoming Encounters Date Type Department Care Team (Late st Contact Info) Description 06/26/2025 9:00 AM CDT Video Visit [facility] Adult Psychiatry [address] [place] [address] Argelia Law NP [address] [place], [place] [address] [address] 08/08/2025 7:30 AM MILIEU TECHNICIAN Video Visit [facility] Adult Psychiatry [address] [address] [place] [address] Argelia Law NP [address] [place], [place] [address] [place] [address] 09/25/2025 8:00 AM MILIEU TECHNICIAN Office Visit [facility] Primary Care - Kirby Herrmann [address] [place] [address] [address] Kassy Jay MD [address] [place] [place] [phone] documented as of this encounter Visit Diagnoses Diagnosis Extrinsic asthma, unspecified- Primary documented in this encounter Additional Health Concerns Infection Onset Date Last Indicated Resolved Time R/O COVID-19 06/02/2021 06/03/2021 06/03/2021 7:34 PM CDT R/O COVID-19 12/22/2022 12/22/2022 12/22/2022 12:2 5 PM CDT R/O COVID-19 09/07/2023 09/07/2023 09/07/2023 9:52 PM MILIEU TECHNICIAN documented as of this encounter Care Teams Butadiene Converter Operator Relationship Specialty Start Date End Date Kassy Jay MD [address] [place] [address] PCP - General Family Practice 12/04/22 documented as of this encounter
--- OUTSIDE RECORDS SUMMARY | 2025-06-16 09:21 | XMS_ITS | Encounter Summary ---
Author Organization [facility] Address [address] [place] [address] Care Team Providers Care Extractor Operator Helper Name Role Phone Kassy Jay MD Primary Care Provider [phone] Encounter Details Date Type Department Care Team (Late Contact Info) Description 07/21/[address] [facility] Pediatrics - [facility] [address] [facility] [facility] [address] [place] [address] [place] [address] [place] [address] Social History Tobacco Use Types Packs/Day Years Used Date Smoking Tobacco: Never Assessed Comments Unknown Sex and Gender Information Value Date Recorded Sex Assigned at Not on file Legal Sex Female 4:02 AM NITROGLYCERIN NEUTRALIZER Gender Identity Not on file Sexual Orientation Not on file documented as of this encounter Plan of Treatment Upcoming Encounters Date Type Department Care Team (Late Contact Info) Description 06/26/2025 9:00 AM CDT Video Visit [facility] Adult Psychiatry [place] [address] [address] Argelia Law NP [address] [address] 08/08/2025 7:30 AM NITROGLYCERIN NEUTRALIZER Video Visit [facility] Adult Psychiatry [place] [address] [address] [place] [address] Argelia Law NP 1420 [facility] [address] [place] [address] 09/25/2025 8:00 AM NITROGLYCERIN NEUTRALIZER Office Visit [facility] Primary Care - Kirby Herrmann [address] [place] [address] Kassy Jay MD [address] [place] [address] documented as of this encounter Visit Diagnoses Not on filedocumented in this encounter Additional Health Concerns Infection Onset Date Last Indicated Resolved Time R/O COVID-19 06/02/2021 06/03/2021 06/03/2021 7:34 PM CDT R/O COVID-19 12/22/2022 12/22/2022 12/22/2022 12:2 5 PM CDT R/O COVID-19 09/07/2023 09/07/2023 09/07/2023 9:52 PM NITROGLYCERIN NEUTRALIZER documented as of this encounter Care Teams Extractor Operator Helper Relationship Specialty Start Date End Date Kassy Jay MD [address] [place] [address] [address] PCP - General Family Practice 12/04/22 documented as of this encounter
--- OUTSIDE RECORDS SUMMARY | 2025-06-16 09:21 | XMS_ITS | Encounter Summary ---
Author Organization [facility] Address [address] [place] [address] Care Team Providers Care Visual Artist Name Role Phone Kassy Jay MD Primary Care Provider [phone] Encounter Details Date Type Department Care Team (Late Contact Info) Description 07/18/2005 Outpatient Historical [facility] Pediatrics - [facility] [address] [facility] [address] [place] [address] [place] [address] [place] [address] Social History Tobacco Use Types Packs/Day Years Used Date Smoking Tobacco: Never Assessed Comments Unknown Sex and Gender Information Value Date Recorded Sex Assigned at Not on file Legal Sex Female 4:02 AM MAILING MACHINE ASSISTANT Gender Identity Not on file Sexual Orientation Not on file documented as of this encounter Plan of Treatment Upcoming Encounters Date Type Department Care Team (Late Contact Info) Description 06/26/2025 9:00 AM CDT Video Visit [facility] Adult Psychiatry [place] [address] [address] Argelia Law NP [address] [address] 08/08/2025 7:30 AM MAILING MACHINE ASSISTANT Video Visit [facility] Adult Psychiatry [place] [address] [address] [place] [address] Argelia Law NP 1420 [facility] [address] [place] [address] 09/25/2025 8:00 AM MAILING MACHINE ASSISTANT Office Visit [facility] Primary Care - Kirby Herrmann [address] [place] [place] [address] Kassy Jay MD [address] [place] [address] [address] documented as of this encounter Visit Diagnoses Not on filedocumented in this encounter Additional Health Concerns Infection Onset Date Last Indicated Resolved Time R/O COVID-19 06/02/2021 06/03/2021 06/03/2021 7:34 PM CDT R/O COVID-19 12/22/2022 12/22/2022 12/22/2022 12:2 5 PM CDT R/O COVID-19 09/07/2023 09/07/2023 09/07/2023 9:52 PM MAILING MACHINE ASSISTANT documented as of this encounter Care Teams Visual Artist Relationship Specialty Start Date End Date Kassy Jay MD [address] [place] [address] [address] PCP - General Family Practice 12/04/22 documented as of this encounter
--- OUTSIDE RECORDS SUMMARY | 2025-06-16 09:21 | XMS_ITS | Encounter Summary ---
Author Organization [facility] Address [address] [place] [address] Care Team Providers Care Clerk Cashier Name Role Phone Kassy Jay MD Primary Care Provider [phone] Encounter Details Date Type Department Care Team ([facility] Contact Info) Description 08/27/2005 Outpatient Historical [facility] Pediatrics - [facility] [address] [place] [address] [place] [address] [facility] [address] [place] [address] Social History Tobacco Use Types Packs/Day Years Used Date Smoking Tobacco: Never Assessed Comments Unknown Sex and Gender Information Value Date Recorded Sex Assigned at Not on file Legal Sex Female 4:02 AM PRE CODER Gender Identity Not on file Sexual Orientation Not on file documented as of this encounter Last Filed Vital Signs Vital Sign Reading Time Taken Comments Blood Pressure - - Pulse 102 08/27/2005 3:00 PM PRE CODER Temperature 36.8 C (98.3 F) 08/27/2005 3:00 PM PRE CODER Respiratory Rate 21 08/27/2005 3:00 PM PRE CODER Oxygen Saturation - - Inhaled Oxygen Concentration - - Weight 25.9 kg (57 lb) 08/27/2005 3:00 PM PRE CODER Height - - Body Mass Index - - documented in this encounter Plan of Treatment Upcoming Encounters Date Type Department Care Team (Late st Contact Info) Description 06/26/2025 9:00 AM CDT Video Visit [facility] Adult Psychiatry [place] [address] [address] [place] [address] Thanh Argelia John, [place] [address] [address] [place] [address] 08/08/2025 7:30 AM PRE CODER Video Visit [facility] Adult Psychiatry [place] [address] [address] [place] [address] Argelia Law, [place] [address] [address] [place] [address] 09/25/2025 8:00 AM PRE CODER Office Visit [facility] Primary Care - Kirby Herrmann [address] [place] [address] Kassy Jay MD [address] [place] [address] [address] documented as of this encounter Visit Diagnoses Not on filedocumented in this encounter Additional Health Concerns Infection Onset Date Last Indicated Resolved Time R/O COVID-19 06/02/2021 06/03/2021 06/03/2021 7:34 PM CDT R/O COVID-19 12/22/2022 12/22/2022 12/22/2022 12:2 5 PM CDT R/O COVID-19 09/07/2023 09/07/2023 09/07/2023 9:52 PM PRE CODER documented as of this encounter Care Teams Clerk Cashier Relationship Specialty Start Date End Date Kassy Jay MD [address] [place] [phone] PCP - General Family Practice 12/04/22 documented as of this encounter
--- OUTSIDE RECORDS SUMMARY | 2025-06-16 09:21 | XMS_ITS | Encounter Summary ---
Author Organization [facility] Address [address] [place] [address] Care Team Providers Care Manufacturing Business Analyst Name Role Phone Kassy Jay MD Primary Care Provider [phone] Encounter Details Date Type Department Care Team (Late Contact Info) Description 08/16/1999 Outpatient Historical [facility] Pediatrics - [facility] [address] [address] [facility] [address] [place] [address] Darren Tabor MD NO ADDRESS ON FILE Social History Tobacco Use Types Packs/Day Years Used Date Smoking Tobacco: Never Assessed Comments Unknown Sex and Gender Information Value Date Recorded Sex Assigned at Not on file Legal Sex Female 4:02 AM MEDICAL OFFICE REP Gender Identity Not on file Sexual Orientation Not on file documented as of this encounter Plan of Treatment Upcoming Encounters Date Type Department Care Team (Late Contact Info) Description 06/26/2025 9:00 AM CDT Video Visit [facility] Adult Psychiatry [address] [address] Argelia Law NP [address] [place] [address] 08/08/2025 7:30 AM MEDICAL OFFICE REP Video Visit [facility] Adult Psychiatry [address] [address] Argelia Law NP [address] [address] [place] [address] 09/25/2025 8:00 AM MEDICAL OFFICE REP Office Visit [facility] Primary Care - Kirby Herrmann [address] [place] [address] [address] Kassy Jay MD [address] [place] [phone] documented as of this encounter Visit Diagnoses Not on filedocumented in this encounter Additional Health Concerns Infection Onset Date Last Indicated Resolved Time R/O COVID-19 06/02/2021 06/03/2021 06/03/2021 7:34 PM CDT R/O COVID-19 12/22/2022 12/22/2022 12/22/2022 12:2 5 PM CDT R/O COVID-19 09/07/2023 09/07/2023 09/07/2023 9:52 PM MEDICAL OFFICE REP documented as of this encounter Care Teams Manufacturing Business Analyst Relationship Specialty Start Date End Date Kassy Jay MD [address] [place] [phone] PCP - General Family Practice 12/04/22 documented as of this encounter
--- OUTSIDE RECORDS SUMMARY | 2025-06-16 09:21 | XMS_ITS | Encounter Summary ---
Author Organization [facility] Address [address] [place] [address] Care Team Providers Care Laboratory Veterinarian Name Role Phone Kassy Jay MD Primary Care Provider [phone] Encounter Details Date Type Department Care Team ([facility] Contact Info) Description 07/29/2005 Outpatient Historical [facility] Pediatrics - [facility] [address] [place] [address] [place] [address] [facility] [address] [place] [address] Social History Tobacco Use Types Packs/Day Years Used Date Smoking Tobacco: Never Assessed Comments Unknown Sex and Gender Information Value Date Recorded Sex Assigned at Not on file Legal Sex Female 4:02 AM PLANT SUPERINTENDENT Gender Identity Not on file Sexual Orientation Not on file documented as of this encounter Last Filed Vital Signs Vital Sign Reading Time Taken Comments Blood Pressure - - Pulse 64 07/29/2005 3:45 PM PLANT SUPERINTENDENT Temperature 37.1 C (98.7 F) 07/29/2005 3:45 PM PLANT SUPERINTENDENT Respiratory Rate 32 07/29/2005 3:45 PM PLANT SUPERINTENDENT Oxygen Saturation - - Inhaled Oxygen Concentration - - Weight 25.2 kg (55 lb 8 oz) 07/29/2005 3:[address] Height - - Body Mass Index - - documented in this encounter Plan of Treatment Upcoming Encounters Date Type Department Care Team (Late Contact Info) Description 06/26/2025 9:00 AM CDT Video Visit [facility] Adult Psychiatry [place] [address] [address] [place] [address] Argelia Law, [place] [address] [address] [place] [address] 08/08/2025 7:30 AM PLANT SUPERINTENDENT Video Visit [facility] Adult Psychiatry [place] [address] [address] [place] [address] Argelia Law NP [address] [address] [place] [address] 09/25/2025 8:00 AM PLANT SUPERINTENDENT Office Visit [facility] Primary Care - Kirby Herrmann [address] [place] [address] Kassy Jay MD [address] [place] [address] [address] documented as of this encounter Visit Diagnoses Not on filedocumented in this encounter Additional Health Concerns Infection Onset Date Last Indicated Resolved Time R/O COVID-19 06/02/2021 06/03/2021 06/03/2021 7:34 PM CDT R/O COVID-19 12/22/2022 12/22/2022 12/22/2022 12:2 5 PM CDT R/O COVID-19 09/07/2023 09/07/2023 09/07/2023 9:52 PM PLANT SUPERINTENDENT documented as of this encounter Care Teams Laboratory Veterinarian Relationship Specialty Start Date End Date Kassy Jay MD [address] [place] [place] [phone] PCP - General Family Practice 12/04/22 documented as of this encounter
--- OUTSIDE RECORDS SUMMARY | 2025-06-16 09:21 | XMS_ITS | Encounter Summary ---
Author Organization [facility] Address [address] [place] [address] Care Team Providers Care Manufacturing Test Technician Name Role Phone Kassy Jay MD Primary Care Provider [phone] Encounter Details Date Type Department Care Team (Late Contact Info) Description 08/06/1999 Outpatient Historical [facility] Pediatrics - [facility] [address] [address] [facility] [address] [place] [address] Darren Tabor MD NO ADDRESS ON FILE Social History Tobacco Use Types Packs/Day Years Used Date Smoking Tobacco: Never Assessed Comments Unknown Sex and Gender Information Value Date Recorded Sex Assigned at Not on file Legal Sex Female 4:02 AM AUTO BODY SHOP MANAGER Gender Identity Not on file Sexual Orientation Not on file documented as of this encounter Plan of Treatment Upcoming Encounters Date Type Department Care Team (Late Contact Info) Description 06/26/2025 9:00 AM CDT Video Visit [facility] Adult Psychiatry [address] [address] Argelia Law NP [address] [place] [address] 08/08/2025 7:30 AM AUTO BODY SHOP MANAGER Video Visit [facility] Adult Psychiatry [address] [address] Argelia Law NP [address] [address] [place] [address] 09/25/2025 8:00 AM AUTO BODY SHOP MANAGER Office Visit [facility] Primary Care - Kirby Herrmann [address] [place] [address] [address] Kassy Jay MD [address] [place] [place] [address] [phone] documented as of this encounter Visit Diagnoses Not on filedocumented in this encounter Additional Health Concerns Infection Onset Date Last Indicated Resolved Time R/O COVID-19 06/02/2021 06/03/2021 06/03/2021 7:34 PM CDT R/O COVID-19 12/22/2022 12/22/2022 12/22/2022 12:2 5 PM CDT R/O COVID-19 09/07/2023 09/07/2023 09/07/2023 9:52 PM AUTO BODY SHOP MANAGER documented as of this encounter Care Teams Manufacturing Test Technician Relationship Specialty Start Date End Date Kassy Jay MD [address] [phone] PCP - General Family Practice 12/04/22 documented as of this encounter
--- OUTSIDE RECORDS SUMMARY | 2025-06-16 09:21 | XMS_ITS | Encounter Summary ---
Author Organization [facility] Address [address] [place] [address] Care Team Providers Care Rail Grinder Name Role Phone Kassy Jay MD Primary Care Provider [phone] Encounter Details Date Type Department Care Team (Late Contact Info) Description 11/23/[address] [facility] Pediatrics - [facility] [address] [facility] [address] [place] [address] [place] [address] [place] [address] Social History Tobacco Use Types Packs/Day Years Used Date Smoking Tobacco: Never Assessed Comments Unknown Sex and Gender Information Value Date Recorded Sex Assigned at Not on file Legal Sex Female 4:02 AM DEVELOPMENT VICE PRESIDENT Gender Identity Not on file Sexual Orientation Not on file documented as of this encounter Plan of Treatment Upcoming Encounters Date Type Department Care Team (Late Contact Info) Description 06/26/2025 9:00 AM CDT Video Visit [facility] Adult Psychiatry [place] [address] [address] Argelia Law NP [address] [address] 08/08/2025 7:30 AM DEVELOPMENT VICE PRESIDENT Video Visit [facility] Adult Psychiatry [place] [address] [address] [place] [address] Argelia Law NP 1420 [facility] [address] [place] [address] 09/25/2025 8:00 AM DEVELOPMENT VICE PRESIDENT Office Visit [facility] Primary Care - Kirby Herrmann [address] [address] [address] Kassy Jay MD [address] [place] [address] [address] documented as of this encounter Visit Diagnoses Not on filedocumented in this encounter Additional Health Concerns Infection Onset Date Last Indicated Resolved Time R/O COVID-19 06/02/2021 06/03/2021 06/03/2021 7:34 PM CDT R/O COVID-19 12/22/2022 12/22/2022 12/22/2022 12:2 5 PM CDT R/O COVID-19 09/07/2023 09/07/2023 09/07/2023 9:52 PM DEVELOPMENT VICE PRESIDENT documented as of this encounter Care Teams Rail Grinder Relationship Specialty Start Date End Date Kassy Jay MD [address] [place] [address] PCP - General Family Practice 12/04/22 documented as of this encounter
--- OUTSIDE RECORDS SUMMARY | 2025-06-16 09:21 | XMS_ITS | Encounter Summary ---
Author Organization [facility] Address [address] [place] [address] Care Team Providers Care Online Tutor Name Role Phone Kassy Jay MD Primary Care Provider [phone] Encounter Details Date Type Department Care Team (Late st Contact Info) Description 09/11/2006 Orders Only [facility] Pediatrics - [facility] [address] [address] [facility] [address] [place] [address] [place] [address] [facility] [address] [place] [address] Social History Tobacco Use Types Packs/Day Years Used Date Smoking Tobacco: Never Assessed Comments Unknown Sex and Gender Information Value Date Recorded Sex Assigned at Not on file Legal Sex Female 4:02 AM VEGETABLE FARMWORKER Gender Identity Not on file Sexual Orientation Not on file documented as of this encounter Progress Notes * Lacie Malik MD - 07/05/2008 4:31 AM CDT PATIENT'S AGE: 6 yrs, 6 mths, 2 wks, 1 day VITALS: TEMP: 98??f Oral PULSE: 88 Apical, Regular RESPIRATIONS: 20. WEIGHT: [id number] NURSE NAME: Jesusita Williamson L ACCOMPANIED BY: [...] CDT Video Visit [facility] Adult Psychiatry [place] [address] [place] [address] [address] [place] [address] Argelia Law, [place] [address] [address] [place] [address] 08/08/2025 7:30 AM VEGETABLE FARMWORKER Video Visit [facility] Adult Psychiatry [place] [address] [address] [place] [address] Argelia Law NP [address] [address] [place] [address] 09/25/2025 8:00 AM VEGETABLE FARMWORKER Office Visit [facility] Primary Care - Kirby Herrmann [address] [place] [address] Kassy Jay MD [address] [place] [address] documented as of this encounter Visit Diagnoses Not on filedocumented in this encounter Additional Health Concerns Infection Onset Date Last Indicated Resolved Time R/O COVID-19 06/02/2021 06/03/2021 06/03/2021 7:34 PM CDT R/O COVID-19 12/22/2022 12/22/2022 12/22/2022 12:2 5 PM CDT R/O COVID-19 09/07/2023 09/07/2023 09/07/2023 9:52 PM VEGETABLE FARMWORKER documented as of this encounter Care Teams Online Tutor Relationship Specialty Start Date End Date Kassy Jay MD [address] [place] [phone] PCP - General Family Practice 12/04/22 documented as of this encounter
--- OUTSIDE RECORDS SUMMARY | 2025-06-16 09:21 | XMS_ITS | Encounter Summary ---
Author Organization [facility] Address [address] [place] [address] Care Team Providers Care Elevator Service Mechanic Name Role Phone Kassy Jay MD Primary Care Provider [phone] Encounter Details Date Type Department Care Team (Late Contact Info) Description 01/21/2006 Outpatient Historical [facility] Pediatrics - [facility] [address] [facility] [address] [place] [address] [place] [address] [address] [place] [address] Social History Tobacco Use Types Packs/Day Years Used Date Smoking Tobacco: Never Assessed Comments Unknown Sex and Gender Information Value Date Recorded Sex Assigned at Not on file Legal Sex Female 4:02 AM LOAN AUDITOR Gender Identity Not on file Sexual Orientation Not on file documented as of this encounter Plan of Treatment Upcoming Encounters Date Type Department Care Team (Late Contact Info) Description 06/26/2025 9:00 AM CDT Video Visit [facility] Adult Psychiatry [place] [address] [address] Argelia Law NP [address] [address] 08/08/2025 7:30 AM LOAN AUDITOR Video Visit [facility] Adult Psychiatry [place] [address] [address] [place] [address] Argelia Law NP 1420 [facility] [address] [place] [address] 09/25/2025 8:00 AM LOAN AUDITOR Office Visit [facility] Primary Care - Kirby Herrmann [address] [place] [address] Kassy Jay MD [address] [place] [address] documented as of this encounter Visit Diagnoses Not on filedocumented in this encounter Additional Health Concerns Infection Onset Date Last Indicated Resolved Time R/O COVID-19 06/02/2021 06/03/2021 06/03/2021 7:34 PM CDT R/O COVID-19 12/22/2022 12/22/2022 12/22/2022 12:2 5 PM CDT R/O COVID-19 09/07/2023 09/07/2023 09/07/2023 9:52 PM LOAN AUDITOR documented as of this encounter Care Teams Elevator Service Mechanic Relationship Specialty Start Date End Date Kassy Jay MD [address] [place] [address] [address] PCP - General Family Practice 12/04/22 documented as of this encounter
--- OUTSIDE RECORDS SUMMARY | 2025-06-16 09:21 | XMS_ITS | Encounter Summary ---
Author Organization [facility] Address [address] [place] [address] Care Team Providers Care Painter Aircraft Name Role Phone Kassy Jay MD Primary Care Provider [phone] Encounter Details Date Type Department Care Team (Late Contact Info) Description 02/03/[address] [facility] Pediatrics - [facility] [address] [place] [address] [place] [address] [place] [address] Social History Tobacco Use Types Packs/Day Years Used Date Smoking Tobacco: Never Assessed Comments Unknown Sex and Gender Information Value Date Recorded Sex Assigned at Not on file Legal Sex Female 4:02 AM INSPECTING MACHINE ADJUSTER Gender Identity Not on file Sexual Orientation Not on file documented as of this encounter Plan of Treatment Upcoming Encounters Date Type Department Care Team (Late Contact Info) Description 06/26/2025 9:00 AM CDT Video Visit [facility] Adult Psychiatry [place] [address] [phone] Argelia Law NP [address] [address] 08/08/2025 7:30 AM INSPECTING MACHINE ADJUSTER Video Visit [facility] Adult Psychiatry [place] [address] [address] [place] [address] Argelia Law NP 1420 [facility] [address] [place] [address] 09/25/2025 8:00 AM INSPECTING MACHINE ADJUSTER Office Visit [facility] Primary Care - Kirby Herrmann [address] [place] [address] Kassy Jay MD [address] [place] [address] documented as of this encounter Visit Diagnoses Not on filedocumented in this encounter Additional Health Concerns Infection Onset Date Last Indicated Resolved Time R/O COVID-19 06/02/2021 06/03/2021 06/03/2021 7:34 PM CDT R/O COVID-19 12/22/2022 12/22/2022 12/22/2022 12:2 5 PM CDT R/O COVID-19 09/07/2023 09/07/2023 09/07/2023 9:52 PM INSPECTING MACHINE ADJUSTER documented as of this encounter Care Teams Painter Aircraft Relationship Specialty Start Date End Date Kassy Jay MD [address] [place] [address] [address] PCP - General Family Practice 12/04/22 documented as of this encounter
--- OUTSIDE RECORDS SUMMARY | 2025-06-16 09:21 | XMS_ITS | Encounter Summary ---
Author Organization [facility] Address [address] [place] [address] Care Team Providers Care Service Desk Director Name Role Phone Kassy Jay MD Primary Care Provider [phone] Encounter Details Date Type Department Care Team (Late st Contact Info) Description 01/21/2006 Orders Only [facility] Pediatrics - [facility] [address] [place] [address] [place] [address] [facility] [address] [place] [address] Social History Tobacco Use Types Packs/Day Years Used Date Smoking Tobacco: Never Assessed Comments Unknown Sex and Gender Information Value Date Recorded Sex Assigned at Not on file Legal Sex Female 4:02 AM EDITORIAL DIRECTOR Gender Identity Not on file Sexual [...] NEW PRESCRIPTION, 01/21/2006. LAB ORDERS: Order number: [id number] Test Ordered: RAPID STREP [id number] RETURN VISIT/GUIDANCE: Instructed to:Take OTC meds as [...] Visit [facility] Adult Psychiatry [address] [address] [place] [address] Thanh, Argelia Lopez NP [address] [address] [place] [address] 08/08/2025 7:30 AM EDITORIAL DIRECTOR Video Visit [facility] Adult Psychiatry [address] [address] [place] [address] Argelia Law NP [address] [address] [place] [address] 09/25/2025 8:00 AM EDITORIAL DIRECTOR Office Visit [facility] Primary Care - Kirby Herrmann [address] [place] [address] Kassy Jay MD [address] [place] [address] documented as of this encounter Visit Diagnoses Not on filedocumented in this encounter Additional Health Concerns Infection Onset Date Last Indicated Resolved Time R/O COVID-19 06/02/2021 06/03/2021 06/03/2021 7:34 PM CDT R/O COVID-19 12/22/2022 12/22/2022 12/22/2022 12:2 5 PM CDT R/O COVID-19 09/07/2023 09/07/2023 09/07/2023 9:52 PM EDITORIAL DIRECTOR documented as of this encounter Care Teams Service Desk Director Relationship Specialty Start Date End Date Kassy Jay MD [address] [place] [address] PCP - General Family Practice 12/04/22 documented as of this encounter
--- OUTSIDE RECORDS SUMMARY | 2025-06-16 09:21 | XMS_ITS | Encounter Summary ---
Author Organization [facility] Address [address] [place] [address] Care Team Providers Care Wharfinger Chief Name Role Phone Kassy Jay MD Primary Care Provider [phone] Encounter Details Date Type Department Care Team ([facility] Contact Info) Description 09/04/2005 Outpatient Historical [facility] [address] [facility] [address] [address] Gustavo Sims Social History Tobacco Use Types Packs/Day Years Used Date Smoking Tobacco: Never Assessed Comments Unknown Sex and Gender Information Value Date Recorded Sex Assigned at Not on file Legal Sex Female 4:02 AM RN RECRUITMENT Gender Identity Not on file Sexual Orientation Not on file documented as of this encounter Plan of Treatment Upcoming Encounters Date Type Department Care Team ([facility] Contact Info) Description 06/26/2025 9:00 AM CDT Video Visit [facility] Adult Psychiatry [address] [phone] Argelia Law NP [address] [place] [address] 08/08/2025 7:30 AM RN RECRUITMENT Video Visit [facility] Adult Psychiatry [address] [address] Argelia Law NP [address] [place] [address] [place] [address] 09/25/2025 8:00 AM RN RECRUITMENT Office Visit [facility] Primary Care - Kirby Herrmann [address] [place] [address] [address] Kassy Jay MD [address] [place] [address] documented as of this encounter Visit Diagnoses Not on filedocumented in this encounter Additional Health Concerns Infection Onset Date Last Indicated Resolved Time R/O COVID-19 06/02/2021 06/03/2021 06/03/2021 7:34 PM CDT R/O COVID-19 12/22/2022 12/22/2022 12/22/2022 12:2 5 PM CDT R/O COVID-19 09/07/2023 09/07/2023 09/07/2023 9:52 PM RN RECRUITMENT documented as of this encounter Care Teams Wharfinger Chief Relationship Specialty Start Date End Date Kassy Jay MD [address] [place] [address] [phone] PCP - General Family Practice 12/04/22 documented as of this encounter
--- OUTSIDE RECORDS SUMMARY | 2025-06-16 09:21 | XMS_ITS | Encounter Summary ---
Author Organization [facility] Address [address] [place] [address] Care Team Providers Care Camera Supervisor Name Role Phone Kassy Jay MD Primary Care Provider [phone] Encounter Details Date Type Department Care Team (Late Contact Info) Description 07/21/2005 Outpatient Historical [facility] Pediatrics - [facility] [address] [facility] [address] [place] [address] [place] [address] [place] [address] Social History Tobacco Use Types Packs/Day Years Used Date Smoking Tobacco: Never Assessed Comments Unknown Sex and Gender Information Value Date Recorded Sex Assigned at Not on file Legal Sex Female 4:02 AM RN MANAGER Gender Identity Not on file Sexual Orientation Not on file documented as of this encounter Plan of Treatment Upcoming Encounters Date Type Department Care Team (Late Contact Info) Description 06/26/2025 9:00 AM CDT Video Visit [facility] Adult Psychiatry [place] [address] [address] Argelia Law NP [address] [address] 08/08/2025 7:30 AM RN MANAGER Video Visit [facility] Adult Psychiatry [place] [address] [address] [place] [address] Argelia Law NP 1420 [facility] [address] [place] [address] 09/25/2025 8:00 AM RN MANAGER Office Visit [facility] Primary Care - Kirby Herrmann [address] [place] [address] [address] Kassy Jay MD [address] [place] [address] [address] documented as of this encounter Visit Diagnoses Not on filedocumented in this encounter Additional Health Concerns Infection Onset Date Last Indicated Resolved Time R/O COVID-19 06/02/2021 06/03/2021 06/03/2021 7:34 PM CDT R/O COVID-19 12/22/2022 12/22/2022 12/22/2022 12:2 5 PM CDT R/O COVID-19 09/07/2023 09/07/2023 09/07/2023 9:52 PM RN MANAGER documented as of this encounter Care Teams Camera Supervisor Relationship Specialty Start Date End Date Kassy Jay MD [address] [place] [address] [address] [address] PCP - General Family Practice 12/04/22 documented as of this encounter
--- OUTSIDE RECORDS SUMMARY | 2025-06-16 09:21 | XMS_ITS | Encounter Summary ---
Author Organization [facility] Address [address] [place] [address] Care Team Providers Care Passenger Relations Representative Name Role Phone Kassy Jay MD Primary Care Provider [phone] Encounter Details Date Type Department Care Team (Late Contact Info) Description 01/21/2006 Outpatient Historical [facility] Pediatrics - [facility] [address] [place] [address] [place] [address] [place] [address] Social History Tobacco Use Types Packs/Day Years Used Date Smoking Tobacco: Never Assessed Comments Unknown Sex and Gender Information Value Date Recorded Sex Assigned at Not on file Legal Sex Female 4:02 AM PATIENT TRANSPORTER Gender Identity Not on file Sexual Orientation Not on file documented as of this encounter Plan of Treatment Upcoming Encounters Date Type Department Care Team (Late Contact Info) Description 06/26/2025 9:00 AM CDT Video Visit [facility] Adult Psychiatry [place] [address] [address] Argelia Law NP [address] [address] 08/08/2025 7:30 AM PATIENT TRANSPORTER Video Visit [facility] Adult Psychiatry [place] [address] [address] [place] [address] Argelia Law NP 1420 [facility] [address] [place] [address] 09/25/2025 8:00 AM PATIENT TRANSPORTER Office Visit [facility] Primary Care - Kirby Herrmann [address] [address] [address] [address] Kassy Jay MD [address] [place] [address] [address] documented as of this encounter Visit Diagnoses Not on filedocumented in this encounter Additional Health Concerns Infection Onset Date Last Indicated Resolved Time R/O COVID-19 06/02/2021 06/03/2021 06/03/2021 7:34 PM CDT R/O COVID-19 12/22/2022 12/22/2022 12/22/2022 12:2 5 PM CDT R/O COVID-19 09/07/2023 09/07/2023 09/07/2023 9:52 PM PATIENT TRANSPORTER documented as of this encounter Care Teams Passenger Relations Representative Relationship Specialty Start Date End Date Kassy Jay MD [address] [place] [address] [address] [phone] PCP - General Family Practice 12/04/22 documented as of this encounter
--- OUTSIDE RECORDS SUMMARY | 2025-06-16 09:21 | XMS_ITS | Encounter Summary ---
Author Organization [facility] Address [address] [place] [address] Care Team Providers Care Tobacco Drying Machine Operator Name Role Phone Kassy Jay MD Primary Care Provider Encounter Details Date Type Department Care Team (Late Contact Info) Description 03/29/2001 Outpatient Historical [facility] Pediatrics - [facility] [address] [facility] [address] [facility] [address] [place] [address] [place] [address] [place] [address] Social History Tobacco Use Types Packs/Day Years Used Date Smoking Tobacco: Never Assessed Comments Unknown Sex and Gender Information Value Date Recorded Sex Assigned at Not on file Legal Sex Female 4:02 AM BUSINESS SERVICES MANAGER Gender Identity Not on file Sexual Orientation Not on file documented as of this encounter Plan of Treatment Upcoming Encounters Date Type Department Care Team (Late Contact Info) Description 06/26/2025 9:00 AM CDT Video Visit [facility] Adult Psychiatry [place] [address] [address] Argelia Law NP [address] [address] 08/08/2025 7:30 AM BUSINESS SERVICES MANAGER Video Visit [facility] Adult Psychiatry [place] [address] [address] [place] [address] Argelia Law NP 1420 [facility] [address] [place] [address] 09/25/2025 8:00 AM BUSINESS SERVICES MANAGER Office Visit [facility] Primary Care - Kirby Herrmann [address] [place] [address] Kassy Jay MD [address] [place] [address] [address] documented as of this encounter Visit Diagnoses Not on filedocumented in this encounter Additional Health Concerns Infection Onset Date Last Indicated Resolved Time R/O COVID-19 06/02/2021 06/03/2021 06/03/2021 7:34 PM CDT R/O COVID-19 12/22/2022 12/22/2022 12/22/2022 12:2 5 PM CDT R/O COVID-19 09/07/2023 09/07/2023 09/07/2023 9:52 PM BUSINESS SERVICES MANAGER documented as of this encounter Care Teams Tobacco Drying Machine Operator Relationship Specialty Start Date End Date Kassy Jya MD [address] [place] [address] [address] PCP - General Family Practice 12/04/22 documented as of this encounter
--- OUTSIDE RECORDS SUMMARY | 2025-06-16 09:21 | XMS_ITS | Encounter Summary ---
Author Organization [facility] Address [address] [place] [address] Care Team Providers Care Grapple Operator Name Role Phone Kassy Jay MD Primary Care Provider [phone] Encounter Details Date Type Department Care Team (Late Contact Info) Description 05/16/2006 Outpatient Historical [facility] Pediatrics - [facility] [address] [place] [address] [place] [address] [place] [address] Social History Tobacco Use Types Packs/Day Years Used Date Smoking Tobacco: Never Assessed Comments Unknown Sex and Gender Information Value Date Recorded Sex Assigned at Not on file Legal Sex Female 4:02 AM WINDOW DISPLAY DESIGNER Gender Identity Not on file Sexual Orientation Not on file documented as of this encounter Plan of Treatment Upcoming Encounters Date Type Department Care Team (Late Contact Info) Description 06/26/2025 9:00 AM CDT Video Visit [facility] Adult Psychiatry [place] [address] [address] Argelia Law NP [address] [address] 08/08/2025 7:30 AM WINDOW DISPLAY DESIGNER Video Visit [facility] Adult Psychiatry [place] [address] [address] [place] [address] Argelia Law NP 1420 [facility] [address] [place] [address] 09/25/2025 8:00 AM WINDOW DISPLAY DESIGNER Office Visit [facility] Primary Care - Kirby Herrmann [address] [place] [address] Kassy Jay MD [address] [place] [address] [address] documented as of this encounter Visit Diagnoses Not on filedocumented in this encounter Additional Health Concerns Infection Onset Date Last Indicated Resolved Time R/O COVID-19 06/02/2021 06/03/2021 06/03/2021 7:34 PM CDT R/O COVID-19 12/22/2022 12/22/2022 12/22/2022 12:2 5 PM CDT R/O COVID-19 09/07/2023 09/07/2023 09/07/2023 9:52 PM WINDOW DISPLAY DESIGNER documented as of this encounter Care Teams Grapple Operator Relationship Specialty Start Date End Date Kassy Jay MD [address] [place] [address] [address] PCP - General Family Practice 12/04/22 documented as of this encounter
--- OUTSIDE RECORDS SUMMARY | 2025-06-16 09:21 | XMS_ITS | Encounter Summary ---
Author Organization [facility] Address [address] [place] [address] Care Team Providers Care Joint Cutter Machine Name Role Phone Kassy Jay MD Primary Care Provider [phone] Encounter Details Date Type Department Care Team ([facility] Contact Info) Description 08/11/2007 Outpatient Historical [facility] Pediatrics - [facility] [address] [facility] [facility] [address] [place] [address] [place] [address] [place] [address] Social History Tobacco Use Types Packs/Day Years Used Date Smoking Tobacco: Never Assessed Comments Unknown Sex and Gender Information Value Date Recorded Sex Assigned at Not on file Legal Sex Female 4:02 AM TECHNICAL DOCUMENT WRITER Gender Identity Not on file Sexual Orientation Not on file documented as of this encounter Last Filed Vital Signs Vital Sign Reading Time Taken Comments Blood Pressure - - Pulse 104 08/11/2007 9:45 AM TECHNICAL DOCUMENT WRITER Temperature 36.7 C (98.1 F) 08/11/2007 9:45 AM TECHNICAL DOCUMENT WRITER Respiratory Rate 20 08/11/2007 9:45 AM TECHNICAL DOCUMENT WRITER Oxygen Saturation - - Inhaled Oxygen Concentration - - Weight 34 kg (75 lb) 08/11/2007 9:45 AM TECHNICAL DOCUMENT WRITER Height - - Body Mass Index - - documented in this encounter Plan of Treatment Upcoming Encounters Date Type Department Care Team ([facility] Contact Info) Description 06/26/2025 9:00 AM CDT Video Visit [facility] Adult Psychiatry [place] [address] [address] [place] [address] Argelia Law, [place] [address] [address] [place] [address] 08/08/2025 7:30 AM TECHNICAL DOCUMENT WRITER Video Visit [facility] Adult Psychiatry [place] [address] [address] [place] [address] Argelia Law, [place] [address] [address] [place] [address] 09/25/2025 8:00 AM TECHNICAL DOCUMENT WRITER Office Visit [facility] Primary Care - Kirby Herrmann [address] [place] [address] [address] Kassy Jay MD [address] [place] [place] [place] [address] documented as of this encounter Visit Diagnoses Not on filedocumented in this encounter Additional Health Concerns Infection Onset Date Last Indicated Resolved Time R/O COVID-19 06/02/2021 06/03/2021 06/03/2021 7:34 PM CDT R/O COVID-19 12/22/2022 12/22/2022 12/22/2022 12:2 5 PM CDT R/O COVID-19 09/07/2023 09/07/2023 09/07/2023 9:52 PM TECHNICAL DOCUMENT WRITER documented as of this encounter Care Teams Joint Cutter Machine Relationship Specialty Start Date End Date Kassy Jay MD [address] [address] PCP - General Family Practice 12/04/22 documented as of this encounter
--- OUTSIDE RECORDS SUMMARY | 2025-06-16 09:21 | XMS_ITS | Encounter Summary ---
Author Organization [facility] Address [address] [place] [address] Care Team Providers Care Crutch Maker Name Role Phone Kassy Jay MD Primary Care Provider [phone] Encounter Details Date Type Department Care Team (Late Contact Info) Description 09/11/2006 Outpatient Historical [facility] Pediatrics - [facility] [address] [address] [facility] [address] [place] [address] [place] [address] [place] [address] Social History Tobacco Use Types Packs/Day Years Used Date Smoking Tobacco: Never Assessed Comments Unknown Sex and Gender Information Value Date Recorded Sex Assigned at Not on file Legal Sex Female 4:02 AM BLOOD BANK CREDIT CLERK Gender Identity Not on file Sexual Orientation Not on file documented as of this encounter Last Filed Vital Signs Vital Sign Reading Time Taken Comments Blood Pressure - - Pulse 88 09/11/2006 8:45 AM BLOOD BANK CREDIT CLERK Temperature 36.7 C (98 F) 09/11/2006 8:45 AM BLOOD BANK CREDIT CLERK Respiratory Rate 20 09/11/2006 8:45 AM BLOOD BANK CREDIT CLERK Oxygen Saturation - - Inhaled Oxygen Concentration - - Weight 30.2 kg (66 lb 8 oz) 09/11/2006 8:[address] Height - - Body Mass Index - - documented in this encounter Plan of Treatment Upcoming Encounters Date Type Department Care Team (Late Contact Info) Description 06/26/2025 9:00 AM CDT Video Visit [facility] Adult Psychiatry [place] [address] [address] [place], [place] [address] Thanh, Argelia Lopez, [place] [address] [address] [place], [place] [address] 08/08/2025 7:30 AM BLOOD BANK CREDIT CLERK Video Visit [facility] Adult Psychiatry [place] [address] [address] [place], [place] [address] Thanh, Argelia Lopez NP [address] [address] [place], [place] [address] 09/25/2025 8:00 AM BLOOD BANK CREDIT CLERK Office Visit [facility] Primary Care - Kirby Herrmann [address] [place] [address] [address] Kassy Jay MD [address] [place] [address] documented as of this encounter Visit Diagnoses Not on filedocumented in this encounter Additional Health Concerns Infection Onset Date Last Indicated Resolved Time R/O COVID-19 06/02/2021 06/03/2021 06/03/2021 7:34 PM CDT R/O COVID-19 12/22/2022 12/22/2022 12/22/2022 12:2 5 PM CDT R/O COVID-19 09/07/2023 09/07/2023 09/07/2023 9:52 PM BLOOD BANK CREDIT CLERK documented as of this encounter Care Teams Crutch Maker Relationship Specialty Start Date End Date Kassy Jay MD [address] [place] [address] PCP - General Family Practice 12/04/22 documented as of this encounter
--- OUTSIDE RECORDS SUMMARY | 2025-06-16 09:21 | XMS_ITS | Encounter Summary ---
Author Organization [facility] Address [address] [place] [address] Care Team Providers Care Scudding Inspector Name Role Phone Kassy Jay MD Primary Care Provider [phone] Encounter Details Date Type Department Care Team (Late Contact Info) Description 11/20/1999 Outpatient Historical [facility] Pediatrics - [facility] [address] [facility] [address] [place] [address] [place] [address] [place] [address] Social History Tobacco Use Types Packs/Day Years Used Date Smoking Tobacco: Never Assessed Comments Unknown Sex and Gender Information Value Date Recorded Sex Assigned at Not on file Legal Sex Female 4:02 AM TAXIMETER REPAIRER Gender Identity Not on file Sexual Orientation Not on file documented as of this encounter Plan of Treatment Upcoming Encounters Date Type Department Care Team (Late Contact Info) Description 06/26/2025 9:00 AM CDT Video Visit [facility] Adult Psychiatry [place] [address] [address] Argelia Law NP [address] [address] 08/08/2025 7:30 AM TAXIMETER REPAIRER Video Visit [facility] Adult Psychiatry [place] [address] [address] [place] [address] Argelia Law NP 1420 [facility] [address] [place] [address] 09/25/2025 8:00 AM TAXIMETER REPAIRER Office Visit [facility] Primary Care - Kirby Herrmann [address] [place] [address] Kassy Jay MD [address] [place] [address] [address] documented as of this encounter Visit Diagnoses Not on filedocumented in this encounter Additional Health Concerns Infection Onset Date Last Indicated Resolved Time R/O COVID-19 06/02/2021 06/03/2021 06/03/2021 7:34 PM CDT R/O COVID-19 12/22/2022 12/22/2022 12/22/2022 12:2 5 PM CDT R/O COVID-19 09/07/2023 09/07/2023 09/07/2023 9:52 PM TAXIMETER REPAIRER documented as of this encounter Care Teams Scudding Inspector Relationship Specialty Start Date End Date Kassy Jay MD [address] [place] [address] [address] PCP - General Family Practice 12/04/22 documented as of this encounter
--- OUTSIDE RECORDS SUMMARY | 2025-06-16 09:21 | XMS_ITS | Encounter Summary ---
Author Organization [facility] Address [address] [place] [address] Care Team Providers Care Spring Coiling Machine Setter Name Role Phone Kassy Jay MD Primary Care Provider [phone] Encounter Details Date Type Department Care Team (Late Contact Info) Description 01/01/2006 Outpatient Historical [facility] [address] [facility] [address] [address] Gustavo Sims Social History Tobacco Use Types Packs/Day Years Used Date Smoking Tobacco: Never Assessed Comments Unknown Sex and Gender Information Value Date Recorded Sex Assigned at Not on file Legal Sex Female 4:02 AM LEAN MANAGER Gender Identity Not on file Sexual Orientation Not on file documented as of this encounter Plan of Treatment Upcoming Encounters Date Type Department Care Team ([facility] Contact Info) Description 06/26/2025 9:00 AM CDT Video Visit [facility] Adult Psychiatry [address] [phone] Argelia Law NP [address] [place] [address] 08/08/2025 7:30 AM LEAN MANAGER Video Visit [facility] Adult Psychiatry [address] [address] Argelia Law NP [address] [place] [address] [place] [address] 09/25/2025 8:00 AM LEAN MANAGER Office Visit [facility] Primary Care - Kirby Herrmann [address] [place] [address] Kassy Jay MD [address] [place] [address] documented as of this encounter Visit Diagnoses Not on filedocumented in this encounter Additional Health Concerns Infection Onset Date Last Indicated Resolved Time R/O COVID-19 06/02/2021 06/03/2021 06/03/2021 7:34 PM CDT R/O COVID-19 12/22/2022 12/22/2022 12/22/2022 12:2 5 PM CDT R/O COVID-19 09/07/2023 09/07/2023 09/07/2023 9:52 PM LEAN MANAGER documented as of this encounter Care Teams Spring Coiling Machine Setter Relationship Specialty Start Date End Date Kassy Jay MD [address] [place] [address] [phone] PCP - General Family Practice 12/04/22 documented as of this encounter
--- OUTSIDE RECORDS SUMMARY | 2025-06-16 09:21 | XMS_ITS | Encounter Summary ---
Author Organization [facility] Address [address] [place] [address] Care Team Providers Care Electric Motor Controls Assembler Name Role Phone Kassy Jay MD Primary Care Provider [phone] Encounter Details Date Type Department Care Team (Late Contact Info) Description 06/03/1999 Outpatient Historical [facility] Pediatrics - [facility] [address] [address] [facility] [address] [place] [address] Darren Tabor MD NO ADDRESS ON FILE Social History Tobacco Use Types Packs/Day Years Used Date Smoking Tobacco: Never Assessed Comments Unknown Sex and Gender Information Value Date Recorded Sex Assigned at Not on file Legal Sex Female 4:02 AM ROUNDHOUSE WORKER Gender Identity Not on file Sexual Orientation Not on file documented as of this encounter Plan of Treatment Upcoming Encounters Date Type Department Care Team (Late Contact Info) Description 06/26/2025 9:00 AM CDT Video Visit [facility] Adult Psychiatry [address] [address] Argelia Law NP [address] [place] [address] 08/08/2025 7:30 AM ROUNDHOUSE WORKER Video Visit [facility] Adult Psychiatry [address] [address] Argelia Law NP [address] [address] [address] [place] [address] 09/25/2025 8:00 AM ROUNDHOUSE WORKER Office Visit [facility] Primary Care - Kirby Herrmann [address] [place] [address] Kassy Jay MD [address] [place] [phone] documented as of this encounter Visit Diagnoses Not on filedocumented in this encounter Additional Health Concerns Infection Onset Date Last Indicated Resolved Time R/O COVID-19 06/02/2021 06/03/2021 06/03/2021 7:34 PM CDT R/O COVID-19 12/22/2022 12/22/2022 12/22/2022 12:2 5 PM CDT R/O COVID-19 09/07/2023 09/07/2023 09/07/2023 9:52 PM ROUNDHOUSE WORKER documented as of this encounter Care Teams Electric Motor Controls Assembler Relationship Specialty Start Date End Date Kassy Jay MD [address] [place] [address] [phone] PCP - General Family Practice 12/04/22 documented as of this encounter
--- OUTSIDE RECORDS SUMMARY | 2025-06-16 09:22 | XMS_ITS | Encounter Summary ---
Author Organization [facility] Address [address] [place] [address] Care Team Providers Care Gameroom Technician Name Role Phone Kassy Jay MD Primary Care Provider [phone] Encounter Details Date Type Department Care Team (Late Contact Info) Description 06/15/2000 Outpatient Historical [facility] Pediatrics - [facility] [address] [address] [facility] [address] [place] [address] [place] [address] [facility] [address] [place] [address] Social History Tobacco Use Types Packs/Day Years Used Date Smoking Tobacco: Never Assessed Comments Unknown Sex and Gender Information Value Date Recorded Sex Assigned at Not on file Legal Sex Female 4:02 AM REGASIFICATION PLANT OPERATOR Gender Identity Not on file Sexual Orientation Not on file documented as of this encounter Plan of Treatment Upcoming Encounters Date Type Department Care Team (Late Contact Info) Description 06/26/2025 9:00 AM CDT Video Visit [facility] Adult Psychiatry [place] [address] [phone] Argelia Law NP [address] [address] 08/08/2025 7:30 AM REGASIFICATION PLANT OPERATOR Video Visit [facility] Adult Psychiatry [place] [address] [place] [address] [place] [address] Argelia Law NP [address] [facility] [address] [place] [address] 09/25/2025 8:00 AM REGASIFICATION PLANT OPERATOR Office Visit [facility] Primary Care - Kirby Herrmann [address] [place] [address] Kassy Jay MD [address] [place] [address] [phone] documented as of this encounter Visit Diagnoses Not on filedocumented in this encounter Additional Health Concerns Infection Onset Date Last Indicated Resolved Time R/O COVID-19 06/02/2021 06/03/2021 06/03/2021 7:34 PM CDT R/O COVID-19 12/22/2022 12/22/2022 12/22/2022 12:2 5 PM CDT R/O COVID-19 09/07/2023 09/07/2023 09/07/2023 9:52 PM REGASIFICATION PLANT OPERATOR documented as of this encounter Care Teams Gameroom Technician Relationship Specialty Start Date End Date Kassy Jay MD [address] [place] [address] [phone] PCP - General Family Practice 12/04/22 documented as of this encounter
--- OUTSIDE RECORDS SUMMARY | 2025-06-16 09:22 | XMS_ITS | Encounter Summary ---
Author Organization [facility] Address [address] [place] [address] Care Team Providers Care Boxing Machine Operator Name Role Phone Kassy Jay MD Primary Care Provider [phone] Encounter Details Date Type Department Care Team (Late Contact Info) Description 1998 Outpatient Historical [facility]IC[facility] Yadav, Alley Cid MD [address] [place] [address] Social History Tobacco Use Types Packs/Day Years Used Date Smoking Tobacco: Never Assessed Comments Unknown Sex and Gender Information Value Date Recorded Sex Assigned at Not on file Legal Sex Female 4:02 AM POWER SWEEPER OPERATOR Gender Identity Not on file Sexual Orientation Not on file documented as of this encounter Plan of Treatment Upcoming Encounters Date Type Department Care Team (Late Contact Info) Description 06/26/2025 9:00 AM CDT Video Visit [facility] Adult Psychiatry [address] [place] [address] Argelia Law NP [address] [place], [place] [address] [address] 08/08/2025 7:30 AM POWER SWEEPER OPERATOR Video Visit [facility] Adult Psychiatry [address] [place] [address] Argelia Law NP [address] [address] [place] [address] 09/25/2025 8:00 AM POWER SWEEPER OPERATOR Office Visit [facility] Primary Care - Kirby Herrmann [address] [place] [address] Kassy Jay MD [address] [place] [phone] documented as of this encounter Visit Diagnoses Not on filedocumented in this encounter Additional Health Concerns Infection Onset Date Last Indicated Resolved Time R/O COVID-19 06/02/2021 06/03/2021 06/03/2021 7:34 PM CDT R/O COVID-19 12/22/2022 12/22/2022 12/22/2022 12:2 5 PM CDT R/O COVID-19 09/07/2023 09/07/2023 09/07/2023 9:52 PM POWER SWEEPER OPERATOR documented as of this encounter Care Teams Boxing Machine Operator Relationship Specialty Start Date End Date Kassy Jay MD [address] [place] [address] [phone] PCP - General Family Practice 12/04/22 documented as of this encounter
--- OUTSIDE RECORDS SUMMARY | 2025-06-16 09:22 | XMS_ITS | Encounter Summary ---
Author Organization [facility] Address [address] [place] [address] Care Team Providers Care Solderer Production Line Name Role Phone Kassy Jay MD Primary Care Provider [phone] Encounter Details Date Type Department Care Team ([facility] Contact Info) Description 1998 Outpatient Historical [facility] MA[facility] Tabor, Darren Ruiz MD NO ADDRESS ON FILE Social History Tobacco Use Types Packs/Day Years Used Date Smoking Tobacco: Never Assessed Comments Unknown Sex and Gender Information Value Date Recorded Sex Assigned at Not on file Legal Sex Female 4:02 AM CIRCUS TRAINER Gender Identity Not on file Sexual Orientation Not on file documented as of this encounter Plan of Treatment Upcoming Encounters Date Type Department Care Team ([facility] Contact Info) Description 06/26/2025 9:00 AM CDT Video Visit [facility] Adult Psychiatry [address] [place] [address] Argelia Law NP [address] [place], [place] [address] [address] 08/08/2025 7:30 AM CIRCUS TRAINER Video Visit [facility] Adult Psychiatry [address] [place] [place] [address] Argelia Law NP [address] [place] [address] [place] [address] 09/25/2025 8:00 AM CIRCUS TRAINER Office Visit [facility] Primary Care - Kirby Herrmann [address] [place] [address] [address] Kassy Jay MD [address] [place] [address] [phone] documented as of this encounter Visit Diagnoses Not on filedocumented in this encounter Additional Health Concerns Infection Onset Date Last Indicated Resolved Time R/O COVID-19 06/02/2021 06/03/2021 06/03/2021 7:34 PM CDT R/O COVID-19 12/22/2022 12/22/2022 12/22/2022 12:2 5 PM CDT R/O COVID-19 09/07/2023 09/07/2023 09/07/2023 9:52 PM CIRCUS TRAINER documented as of this encounter Care Teams Solderer Production Line Relationship Specialty Start Date End Date Kassy Jay MD [address] [place] [address] [phone] PCP - General Family Practice 12/04/22 documented as of this encounter
--- OUTSIDE RECORDS SUMMARY | 2025-06-16 09:22 | XMS_ITS | Encounter Summary ---
Author Organization [facility] Address [address] [place] [address] Care Team Providers Care Freight Weigher Name Role Phone Kassy Jay MD Primary Care Provider [phone] Encounter Details Date Type Department Care Team (Late Contact Info) Description [address] [facility] Pediatrics - [facility] [address] [facility] [address] [place] [address] Garrett Mittal MD [address] [facility] [address] [place] [address] Social History Tobacco Use Types Packs/Day Years Used Date Smoking Tobacco: Never Assessed Comments Unknown Sex and Gender Information Value Date Recorded Sex Assigned at Not on file Legal Sex Female 4:02 AM ROCK ROOM WORKER Gender Identity Not on file Sexual Orientation Not on file documented as of this encounter Plan of Treatment Upcoming Encounters Date Type Department Care Team (Late Contact Info) Description 06/26/2025 9:00 AM CDT Video Visit [facility] Adult Psychiatry [address] [phone] Argelia Law NP [address] [address] 08/08/2025 7:30 AM ROCK ROOM WORKER Video Visit [facility] Adult Psychiatry [address] [place] [address] Thanh Argelia Renaldosharmaine, ARAMIS [address] [address] [place] [address] 09/25/2025 8:00 AM ROCK ROOM WORKER Office Visit [facility] Primary Care - Kirby Herrmann [address] [place] [address] Kassy Jay MD [address] [place] [address] [phone] documented as of this encounter Visit Diagnoses Not on filedocumented in this encounter Additional Health Concerns Infection Onset Date Last Indicated Resolved Time R/O COVID-19 06/02/2021 06/03/2021 06/03/2021 7:34 PM CDT R/O COVID-19 12/22/2022 12/22/2022 12/22/2022 12:2 5 PM CDT R/O COVID-19 09/07/2023 09/07/2023 09/07/2023 9:52 PM ROCK ROOM WORKER documented as of this encounter Care Teams Freight Weigher Relationship Specialty Start Date End Date Kassy Jay MD [address] [place] [address] [phone] PCP - General Family Practice 12/04/22 documented as of this encounter
--- OUTSIDE RECORDS SUMMARY | 2025-06-16 09:22 | XMS_ITS | Encounter Summary ---
Author Organization [facility] Address [address] [place] [address] Care Team Providers Care Management Assistant Name Role Phone Kassy Jay MD Primary Care Provider [phone] Encounter Details Date Type Department Care Team (Late Contact Info) Description 1998 Outpatient Historical [facility] Pediatrics - [facility] [address] [address] [facility] [address] [place] [address] Darren Tabor MD NO ADDRESS ON FILE Social History Tobacco Use Types Packs/Day Years Used Date Smoking Tobacco: Never Assessed Comments Unknown Sex and Gender Information Value Date Recorded Sex Assigned at Not on file Legal Sex Female 4:02 AM ASPHALT PAVER Gender Identity Not on file Sexual Orientation Not on file documented as of this encounter Plan of Treatment Upcoming Encounters Date Type Department Care Team (Late Contact Info) Description 06/26/2025 9:00 AM CDT Video Visit [facility] Adult Psychiatry [address] [address] Argelia Law NP [address] [place] [address] 08/08/2025 7:30 AM ASPHALT PAVER Video Visit [facility] Adult Psychiatry [address] [address] Argelia Law NP [address] [place] [address] [place] [address] 09/25/2025 8:00 AM ASPHALT PAVER Office Visit [facility] Primary Care - Kirby Herrmann [address] [place] [address] [address] Kassy Jay MD [address] [phone] documented as of this encounter Visit Diagnoses Not on filedocumented in this encounter Additional Health Concerns Infection Onset Date Last Indicated Resolved Time R/O COVID-19 06/02/2021 06/03/2021 06/03/2021 7:34 PM CDT R/O COVID-19 12/22/2022 12/22/2022 12/22/2022 12:2 5 PM CDT R/O COVID-19 09/07/2023 09/07/2023 09/07/2023 9:52 PM ASPHALT PAVER documented as of this encounter Care Teams Management Assistant Relationship Specialty Start Date End Date Kassy Jay MD [address] [place] [phone] PCP - General Family Practice 12/04/22 documented as of this encounter
--- OUTSIDE RECORDS SUMMARY | 2025-06-16 09:22 | XMS_ITS | Encounter Summary ---
Author Organization [facility] Address [address] [place] [address] Care Team Providers Care Manager In Home Name Role Phone Kassy Jay MD Primary Care Provider [phone] Encounter Details Date Type Department Care Team (Late Contact Info) Description 07/27/[address] [facility] Pediatrics - [facility] [address] [facility] [address] [place] [address] [place] [address] [place] [address] Social History Tobacco Use Types Packs/Day Years Used Date Smoking Tobacco: Never Assessed Comments Unknown Sex and Gender Information Value Date Recorded Sex Assigned at Not on file Legal Sex Female 4:02 AM DENT REMOVER Gender Identity Not on file Sexual Orientation Not on file documented as of this encounter Plan of Treatment Upcoming Encounters Date Type Department Care Team (Late Contact Info) Description 06/26/2025 9:00 AM CDT Video Visit [facility] Adult Psychiatry [place] [address] [address] Argelia Law NP [address] [address] 08/08/2025 7:30 AM DENT REMOVER Video Visit [facility] Adult Psychiatry [place] [address] [place] [address] [place] [address] Argelia Law NP [address] [facility] [address] [address] 09/25/2025 8:00 AM DENT REMOVER Office Visit [facility] Primary Care - Kirby Herrmann [address] [address] [address] Kassy Jay MD [address] [place] [phone] documented as of this encounter Visit Diagnoses Not on filedocumented in this encounter Additional Health Concerns Infection Onset Date Last Indicated Resolved Time R/O COVID-19 06/02/2021 06/03/2021 06/03/2021 7:34 PM CDT R/O COVID-19 12/22/2022 12/22/2022 12/22/2022 12:2 5 PM CDT R/O COVID-19 09/07/2023 09/07/2023 09/07/2023 9:52 PM DENT REMOVER documented as of this encounter Care Teams Manager In Home Relationship Specialty Start Date End Date Kassy Jay MD [address] [place] [address] [phone] PCP - General Family Practice 12/04/22 documented as of this encounter
--- OUTSIDE RECORDS SUMMARY | 2025-06-16 09:22 | XMS_ITS | Encounter Summary ---
Author Organization [facility] Address [address] [place] [address] Care Team Providers Care Label Printing Machinist Name Role Phone Kassy Jay MD Primary Care Provider [phone] Encounter Details Date Type Department Care Team ([facility] Contact Info) Description 1998 Outpatient Historical HIS [facility] MA[facility] Tabor, Darren Ruiz MD NO ADDRESS ON FILE Social History Tobacco Use Types Packs/Day Years Used Date Smoking Tobacco: Never Assessed Comments Unknown Sex and Gender Information Value Date Recorded Sex Assigned at Not on file Legal Sex Female 4:02 AM SHUTTLECOCK ASSEMBLER Gender Identity Not on file Sexual Orientation Not on file documented as of this encounter Plan of Treatment Upcoming Encounters Date Type Department Care Team ([facility] Contact Info) Description 06/26/2025 9:00 AM CDT Video Visit [facility] Adult Psychiatry [address] [place] [address] Argelia Law NP [address] [place], [place] [address] [address] 08/08/2025 7:30 AM SHUTTLECOCK ASSEMBLER Video Visit [facility] Adult Psychiatry [address] [place] [address] Argelia Law NP [address] [place] [address] [place] [address] 09/25/2025 8:00 AM SHUTTLECOCK ASSEMBLER Office Visit [facility] Primary Care - Kirby Herrmann [address] [place] [address] Kassy Jay MD [address] [place] [place] [phone] documented as of this encounter Visit Diagnoses Not on filedocumented in this encounter Additional Health Concerns Infection Onset Date Last Indicated Resolved Time R/O COVID-19 06/02/2021 06/03/2021 06/03/2021 7:34 PM CDT R/O COVID-19 12/22/2022 12/22/2022 12/22/2022 12:2 5 PM CDT R/O COVID-19 09/07/2023 09/07/2023 09/07/2023 9:52 PM SHUTTLECOCK ASSEMBLER documented as of this encounter Care Teams Label Printing Machinist Relationship Specialty Start Date End Date Kassy Jay MD [address] [phone] PCP - General Family Practice 12/04/22 documented as of this encounter
--- OUTSIDE RECORDS SUMMARY | 2025-06-16 09:22 | XMS_ITS | Encounter Summary ---
Author Organization [facility] Address [address] [place] [address] Care Team Providers Care Curator Zoological Museum Name Role Phone Kassy Jay MD Primary Care Provider [phone] Encounter Details Date Type Department Care Team (Late Contact Info) Description 1998 Outpatient Historical [facility] Pediatrics - [facility] [address] [address] [facility] [address] [place] [address] Darren Tabor MD NO ADDRESS ON FILE Social History Tobacco Use Types Packs/Day Years Used Date Smoking Tobacco: Never Assessed Comments Unknown Sex and Gender Information Value Date Recorded Sex Assigned at Not on file Legal Sex Female 4:02 AM JOURNEYMAN ELECTRICIAN PV INSTALLER Gender Identity Not on file Sexual Orientation Not on file documented as of this encounter Plan of Treatment Upcoming Encounters Date Type Department Care Team (Late Contact Info) Description 06/26/2025 9:00 AM CDT Video Visit [facility] Adult Psychiatry [address] [address] Argelia Law NP [address] [place] [address] 08/08/2025 7:30 AM JOURNEYMAN ELECTRICIAN PV INSTALLER Video Visit [facility] Adult Psychiatry [address] [address] Argelia Law NP [address] [place] [address] [place] [address] 09/25/2025 8:00 AM JOURNEYMAN ELECTRICIAN PV INSTALLER Office Visit [facility] Primary Care - Kirby Herrmann [address] [place] [address] [address] Kassy Jay MD [address] [phone] documented as of this encounter Visit Diagnoses Not on filedocumented in this encounter Additional Health Concerns Infection Onset Date Last Indicated Resolved Time R/O COVID-19 06/02/2021 06/03/2021 06/03/2021 7:34 PM CDT R/O COVID-19 12/22/2022 12/22/2022 12/22/2022 12:2 5 PM CDT R/O COVID-19 09/07/2023 09/07/2023 09/07/2023 9:52 PM JOURNEYMAN ELECTRICIAN PV INSTALLER documented as of this encounter Care Teams Curator Zoological Museum Relationship Specialty Start Date End Date Kassy Jay MD [address] [phone] PCP - General Family Practice 12/04/22 documented as of this encounter
--- OUTSIDE RECORDS SUMMARY | 2025-06-16 09:22 | XMS_ITS | Encounter Summary ---
Author Organization [facility] Address [address] [place] [address] Care Team Providers Care Dairy Farmworker Name Role Phone Kassy Jay MD Primary Care Provider [phone] Encounter Details Date Type Department Care Team (Late Contact Info) Description 1998 Outpatient Historical [facility] Pediatrics - [facility] [address] [address] [facility] [address] [place] [address] Darren Tabor MD NO ADDRESS ON FILE Social History Tobacco Use Types Packs/Day Years Used Date Smoking Tobacco: Never Assessed Comments Unknown Sex and Gender Information Value Date Recorded Sex Assigned at Not on file Legal Sex Female 4:02 AM MANAGER LINE Gender Identity Not on file Sexual Orientation Not on file documented as of this encounter Plan of Treatment Upcoming Encounters Date Type Department Care Team (Late Contact Info) Description 06/26/2025 9:00 AM CDT Video Visit [facility] Adult Psychiatry [address] [address] Argelia Law NP [address] [place] [address] 08/08/2025 7:30 AM MANAGER LINE Video Visit [facility] Adult Psychiatry [address] [address] Argelia Law NP [address] [address] [place] [address] 09/25/2025 8:00 AM MANAGER LINE Office Visit [facility] Primary Care - Kirby Herrmann [address] [place] [address] [address] Kassy Jay MD [address] [place] [phone] documented as of this encounter Visit Diagnoses Not on filedocumented in this encounter Additional Health Concerns Infection Onset Date Last Indicated Resolved Time R/O COVID-19 06/02/2021 06/03/2021 06/03/2021 7:34 PM CDT R/O COVID-19 12/22/2022 12/22/2022 12/22/2022 12:2 5 PM CDT R/O COVID-19 09/07/2023 09/07/2023 09/07/2023 9:52 PM MANAGER LINE documented as of this encounter Care Teams Dairy Farmworker Relationship Specialty Start Date End Date Kassy Jay MD [address] [place] [place] [phone] PCP - General Family Practice 12/04/22 documented as of this encounter
--- OUTSIDE RECORDS SUMMARY | 2025-06-16 09:22 | XMS_ITS | Encounter Summary ---
Author Organization [facility] Address [address] [place] [address] Care Team Providers Care Managed Security Sales Consultant Name Role Phone Kassy Jay MD Primary Care Provider [phone] Encounter Details Date Type Department Care Team (Late st Contact Info) Description 12/06/2007 Orders Only [facility] Pediatrics - [facility] [address] [facility] [address] [place] [address] [place] [address] [facility] [address] [place] [address] Social History Tobacco Use Types Packs/Day Years Used Date Smoking Tobacco: Never Assessed Comments Unknown Sex and Gender Information Value Date Recorded Sex Assigned at Not on file Legal Sex Female 4:02 AM HIGH SCHOOL GUIDANCE COUNSELOR Gender Identity Not on file Sexual Orientation Not on file documented as of this encounter Progress Notes * Lacie Malik MD - 02/24/2008 6:49 PM CDT PATIENT'S AGE: 7 yrs, 9 mths, 1 wk, 3 days VITALS: TEMP: 98.4??f Oral PULSE: 116 Apical, Regular RESPIRATIONS: 20. WEIGHT: 22kim1au NURSE NAME: Lakeshia Fan J ACCOMPANIED BY: [...] [facility] Adult Psychiatry [place] [address] [address] [place], [place] [address] Argelia Law, ARAM[place] [address] [address] [place] [address] 08/08/2025 7:30 AM HIGH SCHOOL GUIDANCE COUNSELOR Video Visit [facility] Adult Psychiatry [place] [address] [address] [place] [address] Argelia Law NP [address] [address] [place] [address] 09/25/2025 8:00 AM HIGH SCHOOL GUIDANCE COUNSELOR Office Visit [facility] Primary Care - Kirby Herrmann [address] [place] [phone] Kassy Jay MD [address] [place] [address] [phone] documented as of this encounter Visit Diagnoses Not on filedocumented in this encounter Additional Health Concerns Infection Onset Date Last Indicated Resolved Time R/O COVID-19 06/02/2021 06/03/2021 06/03/2021 7:34 PM CDT R/O COVID-19 12/22/2022 12/22/2022 12/22/2022 12:2 5 PM CDT R/O COVID-19 09/07/2023 09/07/2023 09/07/2023 9:52 PM HIGH SCHOOL GUIDANCE COUNSELOR documented as of this encounter Care Teams Managed Security Sales Consultant Relationship Specialty Start Date End Date Kassy Jay MD [address] [place] [phone] PCP - General Family Practice 12/04/22 documented as of this encounter
--- OUTSIDE RECORDS SUMMARY | 2025-06-16 09:22 | XMS_ITS | Encounter Summary ---
Author Organization [facility] Address [address] [place] [address] Care Team Providers Care Dead Mail Checker Name Role Phone Kassy Jay MD Primary Care Provider [phone] Encounter Details Date Type Department Care Team (Late Contact Info) Description 12/06/2007 Outpatient Historical [facility] Pediatrics - [facility] [address] [facility] [address] [place] [address] [place] [address] [place] [address] Social History Tobacco Use Types Packs/Day Years Used Date Smoking Tobacco: Never Assessed Comments Unknown Sex and Gender Information Value Date Recorded Sex Assigned at Not on file Legal Sex Female 4:02 AM PLEATER Gender Identity Not on file Sexual Orientation Not on file documented as of this encounter Plan of Treatment Upcoming Encounters Date Type Department Care Team (Late Contact Info) Description 06/26/2025 9:00 AM CDT Video Visit [facility] Adult Psychiatry [place] [address] [address] Argelia Law NP [address] [address] 08/08/2025 7:30 AM PLEATER Video Visit [facility] Adult Psychiatry [place] [address] [address] [place] [address] Argelia Law NP [address]20 [facility] [address] [place] [address] 09/25/2025 8:00 AM PLEATER Office Visit [facility] Primary Care - Kirby Herrmann [address] [place] [address] Kassy Jay MD [address] [place] [address] [phone] documented as of this encounter Visit Diagnoses Not on filedocumented in this encounter Additional Health Concerns Infection Onset Date Last Indicated Resolved Time R/O COVID-19 06/02/2021 06/03/2021 06/03/2021 7:34 PM CDT R/O COVID-19 12/22/2022 12/22/2022 12/22/2022 12:2 5 PM CDT R/O COVID-19 09/07/2023 09/07/2023 09/07/2023 9:52 PM PLEATER documented as of this encounter Care Teams Dead Mail Checker Relationship Specialty Start Date End Date Kassy Jay MD [address] [place] [address] [phone] PCP - General Family Practice 12/04/22 documented as of this encounter
--- OUTSIDE RECORDS SUMMARY | 2025-06-16 09:22 | XMS_ITS | Clinical Summary ---
Author Organization [facility] Address [address] [place] [address] Care Team Providers Care Director Enterprise Systems Name Role Phone Kassy Jay MD Primary Care Provider [phone] No, Physician Unavailable Allergies Active Allergy Reactions [...] 08/25/2022 Assessment & Plan (08/26/2022 1:10 PM BRIM PLATER): - pt presenting after shaking episode similar to previous episodes of psychogenic nonepileptic seizures. 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 - Admitted for Observation secondary to sedation. Back to baseline mental status today. Assessment & Plan (08/25/2022 10:54 PM BRIM PLATER): - pt presenting after shaking episode similar [...] of hypoglycemia since April, was following with [facility] Endocrinology. Recently started on diazoxide. BG [...] sent hypoglycemia labs. Discussed with veronica, outpatient tsa screener Dr. Mejia will f/u with results & [...] 07/20/2022 Assessment & Plan (08/25/2022 10:40 PM BRIM PLATER): -cont linzess Assessment & Plan (07/21/2022 10:08 AM CDT): - Continue home Linzess and Colace Assessment & Plan (07/20/2022 8:31 PM CDT): -Continue home Linzess and Colace. Asthma 11/06/2020 Assessment & Plan (08/26/2022 1:11 PM BRIM PLATER): - stable, cont home inhalers Assessment & Plan (08/25/2022 10:41 PM BRIM PLATER): -cont home inhalers Gastroesophageal reflux disease 11/06/2020 Assessment & Plan (08/26/2022 1:11 PM BRIM PLATER): -cont pepcid and ppi Assessment & Plan (08/25/2022 10:40 PM BRIM PLATER): - cont pepcid and ppi Assessment & [...] 9:01 AM CDT): Patient reports follows with [facility] psychiatry. Pharmacy list confirmed with patient. Concern of polypharmacy discussed with patient. - witnessed pseudoseizure 07/22 AM, VS stable and BG 111. No meds given. Self resolved. - Continue home Lamictal, Topomax and gabapentin Assessment & Plan (07/20/2022 8:27 PM CDT): -Patient reports follows with [facility] psychiatry. Pharmacy list confirmed with patient. [...] celexa Assessment & Plan (08/26/2022 1:11 PM BRIM PLATER): - patient with chart history of BARBIE, MDD, ptsd, and borderline personality disorder. - follows with psychiatrist and on extensive medication regimen. - cont home duloxetine, lurasidone, lamotrigine, and prazosin. - held several medications including nortriptyline, temazepam,clonazepam and gabapentin given drowsiness Assessment & Plan (08/25/2022 10:46 PM BRIM PLATER): - patient with chart history of BARBIE, [...] 01/21/2017 Overview (05/17/2020): Overview: Overview: Thinks from [facility]; has follow up with 02/06/17 Asthma, moderate [...] on file Legal Sex Female 11:33 PM BRIM PLATER Gender Identity Female 05/17/2020 9:28 AM CDT Sexual Orientation Straight 05/17/2020 9: 28 AM CDT Obstetrics History Last Filed Vital Signs Vital Sign Reading Time Taken Comments Blood Pressure 106/54 08/26/2022 8:50 AM BRIM PLATER Pulse 92 08/26/2022 8:18 AM BRIM PLATER Temperature 36.6 C (97.9 F) 08/26/2022 8:18 AM BRIM PLATER Respiratory Rate 16 08/26/2022 8:18 AM BRIM PLATER Oxygen Saturation 97% 08/26/2022 8:18 AM BRIM PLATER Inhaled Oxygen Concentration - - Weight 93.4 kg (205 lb 14.4 oz) 022 11:06 PM BRIM PLATER Height 154.9 cm (5' 1) 08/25/2022 11:0 6 PM BRIM PLATER Body Mass Index 38.9 08/25/2022 11:06 PM BRIM PLATER Plan of Treatment Health Maintenance Due Date [...] Varicella Vaccines Completed 02/15/2016, 02/26/1999 Insurance BLUE [facility] CHOICE OOS [facility] CHOICE OOS Member Subscriber Plan / Payer (Ef fective 2017-Present) Name:Isaura Holland Relation to Subscriber:Child Name:AMALIAORIN Date of :1899 (Home) Address: [address] [place] [address] Payer ID:[id number] (NAIC) Type:[employer] Address: [address] BLUE ID BLUE ACC CHOICE OOS [place]ALTH[place] BLUE [place] Advance Directives For more information, please contact: [phone] * Full Code (Latest Code Status on File) Date Activated Date Inactivated Comments 08/25/2022 11:05 PM 08/26/2022 6:08 PM * Full Code Date Activated Date Inactivated Comments 07/20/2022 7:11 PM 07/23/2022 7:19 PM Care Teams Director Enterprise Systems Relationship Specialty Start Date End Date Kassy Jay MD [address] [place] [phone] PCP - General Family Practice 07/21/22 No, Physician 08/26/22
--- OUTSIDE RECORDS SUMMARY | 2025-06-16 09:22 | XMS_ITS | Encounter Summary ---
Author Organization [facility] Address [address] [place] [address] Care Team Providers Care Flight Engineer Name Role Phone Kassy Jay MD Primary Care Provider [phone] Encounter Details Date Type Department Care Team (Late Contact Info) Description 02/26/1999 Outpatient Historical [facility] Pediatrics - [facility] [address] [address] [facility] [address] [place] [address] Darren Tabor MD NO ADDRESS ON FILE Social History Tobacco Use Types Packs/Day Years Used Date Smoking Tobacco: Never Assessed Comments Unknown Sex and Gender Information Value Date Recorded Sex Assigned at Not on file Legal Sex Female 4:02 AM STONE CRUSHER OPERATOR Gender Identity Not on file Sexual Orientation Not on file documented as of this encounter Plan of Treatment Upcoming Encounters Date Type Department Care Team (Late Contact Info) Description 06/26/2025 9:00 AM CDT Video Visit [facility] Adult Psychiatry [address] [address] Argelia Law NP [address] [place] [address] 08/08/2025 7:30 AM STONE CRUSHER OPERATOR Video Visit [facility] Adult Psychiatry [address] [address] Argelia Law NP [address] [address] [place] [address] 09/25/2025 8:00 AM STONE CRUSHER OPERATOR Office Visit [facility] Primary Care - Kirby Herrmann [address] [place] [address] Kassy Jay MD [address] [place] [phone] documented as of this encounter Visit Diagnoses Not on filedocumented in this encounter Additional Health Concerns Infection Onset Date Last Indicated Resolved Time R/O COVID-19 06/02/2021 06/03/2021 06/03/2021 7:34 PM CDT R/O COVID-19 12/22/2022 12/22/2022 12/22/2022 12:2 5 PM CDT R/O COVID-19 09/07/2023 09/07/2023 09/07/2023 9:52 PM STONE CRUSHER OPERATOR documented as of this encounter Care Teams Flight Engineer Relationship Specialty Start Date End Date Kassy Jay MD [address] [place] [address] [phone] PCP - General Family Practice 12/04/22 documented as of this encounter
--- OUTSIDE RECORDS SUMMARY | 2025-06-16 09:22 | XMS_ITS | Encounter Summary ---
Author Organization [facility] Address [address] [place] [address] Care Team Providers Care University Internship Name Role Phone Kassy Jay MD Primary Care Provider [phone] Encounter Details Date Type Department Care Team (Late Contact Info) Description 10/14/1999 Outpatient Historical [facility] Pediatrics - [facility] [address] [address] [facility] [address] [place] [address] [place] [address] [place] [address] Social History Tobacco Use Types Packs/Day Years Used Date Smoking Tobacco: Never Assessed Comments Unknown Sex and Gender Information Value Date Recorded Sex Assigned at Not on file Legal Sex Female 4:02 AM HUNTING AND FISHING GUIDE Gender Identity Not on file Sexual Orientation Not on file documented as of this encounter Plan of Treatment Upcoming Encounters Date Type Department Care Team (Late Contact Info) Description 06/26/2025 9:00 AM CDT Video Visit [facility] Adult Psychiatry [place] [address] [address] Argelia Law NP [address] [address] 08/08/2025 7:30 AM HUNTING AND FISHING GUIDE Video Visit [facility] Adult Psychiatry [place] [address] [address] [place] [address] Argelia Law NP [address]20 [facility] [address] [place] [address] 09/25/2025 8:00 AM HUNTING AND FISHING GUIDE Office Visit [facility] Primary Care - Kirby Herrmann [address] [place] [address] Kassy Jay MD [address] [place] [address] documented as of this encounter Visit Diagnoses Not on filedocumented in this encounter Additional Health Concerns Infection Onset Date Last Indicated Resolved Time R/O COVID-19 06/02/2021 06/03/2021 06/03/2021 7:34 PM CDT R/O COVID-19 12/22/2022 12/22/2022 12/22/2022 12:2 5 PM CDT R/O COVID-19 09/07/2023 09/07/2023 09/07/2023 9:52 PM HUNTING AND FISHING GUIDE documented as of this encounter Care Teams University Internship Relationship Specialty Start Date End Date Kassy Jay MD [address] [place] [address] [phone] PCP - General Family Practice 12/04/22 documented as of this encounter
--- OUTSIDE RECORDS SUMMARY | 2025-06-16 09:22 | XMS_ITS | Encounter Summary ---
Author Organization [facility] Address [address] [place] [address] Care Team Providers Care Rail Car Unloader Name Role Phone Kassy Jay MD Primary Care Provider [phone] Encounter Details Date Type Department Care Team (Late Contact Info) Description 1998 Outpatient Historical [facility] MAURICIO Yadav, Alley Cid MD [address] [place] [address] Social History Tobacco Use Types Packs/Day Years Used Date Smoking Tobacco: Never Assessed Comments Unknown Sex and Gender Information Value Date Recorded Sex Assigned at Not on file Legal Sex Female 4:02 AM DEVIL TENDER Gender Identity Not on file Sexual Orientation Not on file documented as of this encounter Plan of Treatment Upcoming Encounters Date Type Department Care Team (Late Contact Info) Description 06/26/2025 9:00 AM CDT Video Visit [facility] Adult [place]iatry [address] [place] [address] Argelia Law NP [address] [place], [place] [address] [address] 08/08/2025 7:30 AM DEVIL TENDER Video Visit [facility] Adult Psychiatry [address] [place] [address] Argelia Law NP [address] [address] [place] [address] 09/25/2025 8:00 AM DEVIL TENDER Office Visit [facility] Primary Care - Kirby Herrmann [address] [address] Kassy Jay MD [address] [place] [phone] documented as of this encounter Visit Diagnoses Not on filedocumented in this encounter Additional Health Concerns Infection Onset Date Last Indicated Resolved Time R/O COVID-19 06/02/2021 06/03/2021 06/03/2021 7:34 PM CDT R/O COVID-19 12/22/2022 12/22/2022 12/22/2022 12:2 5 PM CDT R/O COVID-19 09/07/2023 09/07/2023 09/07/2023 9:52 PM DEVIL TENDER documented as of this encounter Care Teams Rail Car Unloader Relationship Specialty Start Date End Date Kassy Jay MD [address] [place] [phone] PCP - General Family Practice 12/04/22 documented as of this encounter
--- OUTSIDE RECORDS SUMMARY | 2025-06-16 09:22 | XMS_ITS | Encounter Summary ---
Author Organization [facility] Address [address] [place] [address] Care Team Providers Care Plant Breeder Scientist Name Role Phone Kassy Jay MD Primary Care Provider [phone] Encounter Details Date Type Department Care Team (Late Contact Info) Description 1998 Outpatient Historical [facility] Pediatrics - [facility] [address] [facility] [address] [place] [address] [place] [address] [address] [address] [address] [place] [address] Social History Tobacco Use Types Packs/Day Years Used Date Smoking Tobacco: Never Assessed Comments Unknown Sex and Gender Information Value Date Recorded Sex Assigned at Not on file Legal Sex Female 4:02 AM FINANCIAL RETIREMENT PLAN SPECIALIST Gender Identity Not on file Sexual Orientation Not on file documented as of this encounter Plan of Treatment Upcoming Encounters Date Type Department Care Team (Late Contact Info) Description 06/26/2025 9:00 AM CDT Video Visit [facility] Adult Psychiatry [place] [address] [address] Argelia Law NP [address] [address] 08/08/2025 7:30 AM FINANCIAL RETIREMENT PLAN SPECIALIST Video Visit [facility] Adult Psychiatry [place] [address] [address] [place] [address] Argelia Law NP 1420 [facility] [address] [place] [address] 09/25/2025 8:00 AM FINANCIAL RETIREMENT PLAN SPECIALIST Office Visit [facility] Primary Care - Kirby Herrmann [address] [place] [address] Kassy Jay MD [address] [place] [address] [phone] documented as of this encounter Visit Diagnoses Not on filedocumented in this encounter Additional Health Concerns Infection Onset Date Last Indicated Resolved Time R/O COVID-19 06/02/2021 06/03/2021 06/03/2021 7:34 PM CDT R/O COVID-19 12/22/2022 12/22/2022 12/22/2022 12:2 5 PM CDT R/O COVID-19 09/07/2023 09/07/2023 09/07/2023 9:52 PM FINANCIAL RETIREMENT PLAN SPECIALIST documented as of this encounter Care Teams Plant Breeder Scientist Relationship Specialty Start Date End Date Kassy Jay MD [address] [place] [address] [phone] PCP - General Family Practice 12/04/22 documented as of this encounter
--- OUTSIDE RECORDS SUMMARY | 2025-06-16 09:22 | XMS_ITS | Encounter Summary ---
Author Organization [facility] Address [address] [place] [address] Care Team Providers Care Podopediatrician Name Role Phone Kassy Jay MD Primary Care Provider [phone] Encounter Details Date Type Department Care Team (Late Contact Info) Description 02/11/[address] [facility] Pediatrics - [facility] [address] [address] [facility] [address] [place] [address] Darren Tabor MD NO ADDRESS ON FILE Social History Tobacco Use Types Packs/Day Years Used Date Smoking Tobacco: Never Assessed Comments Unknown Sex and Gender Information Value Date Recorded Sex Assigned at Not on file Legal Sex Female 4:02 AM MATH AND PHYSICS INSTRUCTOR Gender Identity Not on file Sexual Orientation Not on file documented as of this encounter Plan of Treatment Upcoming Encounters Date Type Department Care Team (Late Contact Info) Description 06/26/2025 9:00 AM CDT Video Visit [facility] Adult Psychiatry [address] [address] Argelia Law NP [address] [place] [address] 08/08/2025 7:30 AM MATH AND PHYSICS INSTRUCTOR Video Visit [facility] Adult Psychiatry [address] [address] Argelia Law NP [address] [address] [place] [address] 09/25/2025 8:00 AM MATH AND PHYSICS INSTRUCTOR Office Visit [facility] Primary Care - Kirby Herrmann [address] [place] [address] Kassy Jay MD [address] [place] [place] [phone] documented as of this encounter Visit Diagnoses Not on filedocumented in this encounter Additional Health Concerns Infection Onset Date Last Indicated Resolved Time R/O COVID-19 06/02/2021 06/03/2021 06/03/2021 7:34 PM CDT R/O COVID-19 12/22/2022 12/22/2022 12/22/2022 12:2 5 PM CDT R/O COVID-19 09/07/2023 09/07/2023 09/07/2023 9:52 PM MATH AND PHYSICS INSTRUCTOR documented as of this encounter Care Teams Podopediatrician Relationship Specialty Start Date End Date Kassy Jay MD [address] [phone] PCP - General Family Practice 12/04/22 documented as of this encounter
--- OUTSIDE RECORDS SUMMARY | 2025-06-16 09:22 | XMS_ITS | Encounter Summary ---
Author Organization [facility] Address [address] [place] [address] Care Team Providers Care Glass Furnace Operator Name Role Phone Kassy Jay MD Primary Care Provider [phone] Encounter Details Date Type Department Care Team (Late Contact Info) Description 12/06/2007 Outpatient Historical [facility] Pediatrics - [facility] [address] [place] [address] [place] [address] [place] [address] Social History Tobacco Use Types Packs/Day Years Used Date Smoking Tobacco: Never Assessed Comments Unknown Sex and Gender Information Value Date Recorded Sex Assigned at Not on file Legal Sex Female 4:02 AM DECK SCALER Gender Identity Not on file Sexual Orientation Not on file documented as of this encounter Plan of Treatment Upcoming Encounters Date Type Department Care Team (Late Contact Info) Description 06/26/2025 9:00 AM CDT Video Visit [facility] Adult Psychiatry [place] [address] [address] Argelia Law NP [address] [address] 08/08/2025 7:30 AM DECK SCALER Video Visit [facility] Adult Psychiatry [place] [address] [place] [address] [address] [place] [address] Argelia Law NP 1420 [facility] [address] [place] [address] 09/25/2025 8:00 AM DECK SCALER Office Visit [facility] Primary Care - Kirby Herrmann [address] [place] [address] Kasys Jay MD [address] [place] [address] documented as of this encounter Visit Diagnoses Not on filedocumented in this encounter Additional Health Concerns Infection Onset Date Last Indicated Resolved Time R/O COVID-19 06/02/2021 06/03/2021 06/03/2021 7:34 PM CDT R/O COVID-19 12/22/2022 12/22/2022 12/22/2022 12:2 5 PM CDT R/O COVID-19 09/07/2023 09/07/2023 09/07/2023 9:52 PM DECK SCALER documented as of this encounter Care Teams Glass Furnace Operator Relationship Specialty Start Date End Date Kassy Jay MD [address] [place] [address] [address] PCP - General Family Practice 12/04/22 documented as of this encounter
--- OUTSIDE RECORDS SUMMARY | 2025-06-16 09:22 | XMS_ITS | Encounter Summary ---
Author Organization [facility] Address [address] [place] [address] Care Team Providers Care Primer Supervisor Name Role Phone Kassy Jay MD Primary Care Provider [phone] Encounter Details Date Type Department Care Team ([facility] Contact Info) Description 1998 Outpatient Historical [facility] MAURICIO Tabor, Darren Ruiz MD NO ADDRESS ON FILE Social History Tobacco Use Types Packs/Day Years Used Date Smoking Tobacco: Never Assessed Comments Unknown Sex and Gender Information Value Date Recorded Sex Assigned at Not on file Legal Sex Female 4:02 AM TIMBER SUPERVISOR Gender Identity Not on file Sexual Orientation Not on file documented as of this encounter Plan of Treatment Upcoming Encounters Date Type Department Care Team ([facility] Contact Info) Description 06/26/2025 9:00 AM CDT Video Visit [facility]3] Adult [place]iat[place] [address] [place] [address] Argelia Law NP [address] [place], [place] [address] [place] [address] 08/08/2025 7:30 AM TIMBER SUPERVISOR Video Visit [facility] ([facility]3] [place] Psychiatry [address] [place] [address] Argelia Law NP [address] [place] [address] [place] [address] 09/25/2025 8:00 AM TIMBER SUPERVISOR Office Visit [facility] ([facility]3] Primary Care - Kirby Herrmann [address] [place] [address] [address] Kassy Jay MD [address] [place] [phone] documented as of this encounter Visit Diagnoses Not on filedocumented in this encounter Additional Health Concerns Infection Onset Date Last Indicated Resolved Time R/O COVID-19 06/02/2021 06/03/2021 06/03/2021 7:34 PM CDT R/O COVID-19 12/22/2022 12/22/2022 12/22/2022 12:2 5 PM CDT R/O COVID-19 09/07/2023 09/07/2023 09/07/2023 9:52 PM TIMBER SUPERVISOR documented as of this encounter Care Teams Primer Supervisor Relationship Specialty Start Date End Date Kassy Jay MD [address] [place] [address] [phone] PCP - General Family Practice 12/04/22 documented as of this encounter
--- OUTSIDE RECORDS SUMMARY | 2025-06-16 09:22 | XMS_ITS | Encounter Summary ---
Author Organization [facility] Address [address] [place] [address] Care Team Providers Care Tank Car Reconditioner Name Role Phone Kassy Jay MD Primary Care Provider [phone] Encounter Details Date Type Department Care Team (Late Contact Info) Description 1998 Outpatient Historical [facility] Pediatrics - [facility] [address] [address] [facility] [address] [place] [address] Darren Tabor MD NO ADDRESS ON FILE Social History Tobacco Use Types Packs/Day Years Used Date Smoking Tobacco: Never Assessed Comments Unknown Sex and Gender Information Value Date Recorded Sex Assigned at Not on file Legal Sex Female 4:02 AM PIZZAMAKER Gender Identity Not on file Sexual Orientation Not on file documented as of this encounter Plan of Treatment Upcoming Encounters Date Type Department Care Team (Late Contact Info) Description 06/26/2025 9:00 AM CDT Video Visit [facility] Adult Psychiatry [address] [address] Argelia Law NP [address] [place] [address] 08/08/2025 7:30 AM PIZZAMAKER Video Visit [facility] Adult Psychiatry [address] [address] Argelia Law NP [address] [place] [address] [place] [address] 09/25/2025 8:00 AM PIZZAMAKER Office Visit [facility] Primary Care - Kirby Herrmann [address] [place] [address] [address] Kassy Jay MD [address] [place] [phone] documented as of this encounter Visit Diagnoses Not on filedocumented in this encounter Additional Health Concerns Infection Onset Date Last Indicated Resolved Time R/O COVID-19 06/02/2021 06/03/2021 06/03/2021 7:34 PM CDT R/O COVID-19 12/22/2022 12/22/2022 12/22/2022 12:2 5 PM CDT R/O COVID-19 09/07/2023 09/07/2023 09/07/2023 9:52 PM PIZZAMAKER documented as of this encounter Care Teams Tank Car Reconditioner Relationship Specialty Start Date End Date Kassy Jay MD [address] [place] [phone] PCP - General Family Practice 12/04/22 documented as of this encounter
--- OUTSIDE RECORDS SUMMARY | 2025-06-16 09:22 | XMS_ITS | Encounter Summary ---
Author Organization [facility] Address [address] [place] [address] Care Team Providers Care Data Conversion Operator Name Role Phone Kassy Jay MD Primary Care Provider [phone] Encounter Details Date Type Department Care Team ([facility] Contact Info) Description 1998 Outpatient Historical HIS [facility] DR[facility] MAURICIO Tabor, Darren Ruiz MD NO ADDRESS ON FILE Social History Tobacco Use Types Packs/Day Years Used Date Smoking Tobacco: Never Assessed Comments Unknown Sex and Gender Information Value Date Recorded Sex Assigned at Not on file Legal Sex Female 4:02 AM LEAD INFORMATICA DEVELOPER Gender Identity Not on file Sexual Orientation Not on file documented as of this encounter Plan of Treatment Upcoming Encounters Date Type Department Care Team ([facility] Contact Info) Description 06/26/2025 9:00 AM CDT Video Visit [facility] Adult Psychiatry [address] [place] [address] Argelia Law NP [address] [place], [place] [address] [address] 08/08/2025 7:30 AM LEAD INFORMATICA DEVELOPER Video Visit [facility] [place] Psychiatry [address] [place] [address] Argelia Law NP [address] [place] [address] [place] [address] 09/25/2025 8:00 AM LEAD INFORMATICA DEVELOPER Office Visit [facility] Primary Care - Kirby Herrmann [address] [place] [address] [address] [address] Kassy Jay MD [address] [place] [phone] documented as of this encounter Visit Diagnoses Not on filedocumented in this encounter Additional Health Concerns Infection Onset Date Last Indicated Resolved Time R/O COVID-19 06/02/2021 06/03/2021 06/03/2021 7:34 PM CDT R/O COVID-19 12/22/2022 12/22/2022 12/22/2022 12:2 5 PM CDT R/O COVID-19 09/07/2023 09/07/2023 09/07/2023 9:52 PM LEAD INFORMATICA DEVELOPER documented as of this encounter Care Teams Data Conversion Operator Relationship Specialty Start Date End Date Kassy Jay MD [address] [place] [address] [phone] PCP - General Family Practice 12/04/22 documented as of this encounter
--- OUTSIDE RECORDS SUMMARY | 2025-06-16 09:22 | XMS_ITS | Encounter Summary ---
Author Organization [facility] Address [address] [place] [address] Care Team Providers Care Window Decorator Name Role Phone Kassy Jay MD Primary Care Provider [phone] Encounter Details Date Type Department Care Team (Late Contact Info) Description 03/02/2000 Outpatient Historical [facility] Pediatrics - [facility] [address] [address] [facility] [address] [place] [address] [place] [address] [place] [address] Social History Tobacco Use Types Packs/Day Years Used Date Smoking Tobacco: Never Assessed Comments Unknown Sex and Gender Information Value Date Recorded Sex Assigned at Not on file Legal Sex Female 4:02 AM MOTOR EQUIPMENT CAPTAIN Gender Identity Not on file Sexual Orientation Not on file documented as of this encounter Plan of Treatment Upcoming Encounters Date Type Department Care Team (Late Contact Info) Description 06/26/2025 9:00 AM CDT Video Visit [facility] Adult Psychiatry [place] [address] [address] Argelia Law NP [address] [address] 08/08/2025 7:30 AM MOTOR EQUIPMENT CAPTAIN Video Visit [facility] Adult Psychiatry [place] [address] [place] [address] [address] [place] [address] Argelia Law NP 1420 [facility] 61 [place] [address] 09/25/2025 8:00 AM MOTOR EQUIPMENT CAPTAIN Office Visit [facility] Primary Care - Kirby Herrmann [address] [phone] Kassy Jay MD [address] [place] [phone] documented as of this encounter Visit Diagnoses Not on filedocumented in this encounter Additional Health Concerns Infection Onset Date Last Indicated Resolved Time R/O COVID-19 06/02/2021 06/03/2021 06/03/2021 7:34 PM CDT R/O COVID-19 12/22/2022 12/22/2022 12/22/2022 12:2 5 PM CDT R/O COVID-19 09/07/2023 09/07/2023 09/07/2023 9:52 PM MOTOR EQUIPMENT CAPTAIN documented as of this encounter Care Teams Window Decorator Relationship Specialty Start Date End Date Kassy Jay MD [address] [place] [address] [phone] PCP - General Family Practice 12/04/22 documented as of this encounter
--- OUTSIDE RECORDS SUMMARY | 2025-06-16 09:22 | XMS_ITS | Encounter Summary ---
Author Organization [facility] Address [address] [place] [address] Care Team Providers Care Case Technician Name Role Phone Kassy Jay MD Primary Care Provider [phone] Encounter Details Date Type Department Care Team (Late Contact Info) Description 12/06/2007 Outpatient Historical [facility] Pediatrics - [facility] [address] [address] [facility] [address] [place] [address] [place] [address] [facility] [address] [place] [address] Social History Tobacco Use Types Packs/Day Years Used Date Smoking Tobacco: Never Assessed Comments Unknown Sex and Gender Information Value Date Recorded Sex Assigned at Not on file Legal Sex Female 4:02 AM INSTALLER METAL FLOORING Gender Identity Not on file Sexual Orientation Not on file documented as of this encounter Plan of Treatment Upcoming Encounters Date Type Department Care Team (Late Contact Info) Description 06/26/2025 9:00 AM CDT Video Visit [facility] Adult Psychiatry [place] [address] [address] Argelia Law NP [address] [address] 08/08/2025 7:30 AM INSTALLER METAL FLOORING Video Visit [facility] Adult Psychiatry [place] [address] [place] [address] [address] [place] [address] Argelia Law NP 1420 [facility] 61 [place] [address] 09/25/2025 8:00 AM INSTALLER METAL FLOORING Office Visit [facility] Primary Care - Kirby Herrmann [address] [place] [address] [address] Kassy Jay MD [address] [place] [address] [phone] documented as of this encounter Visit Diagnoses Not on filedocumented in this encounter Additional Health Concerns Infection Onset Date Last Indicated Resolved Time R/O COVID-19 06/02/2021 06/03/2021 06/03/2021 7:34 PM CDT R/O COVID-19 12/22/2022 12/22/2022 12/22/2022 12:2 5 PM CDT R/O COVID-19 09/07/2023 09/07/2023 09/07/2023 9:52 PM INSTALLER METAL FLOORING documented as of this encounter Care Teams Case Technician Relationship Specialty Start Date End Date Kassy Jay MD [address] [place] [address] [address] [phone] PCP - General Family Practice 12/04/22 documented as of this encounter
--- OUTSIDE RECORDS SUMMARY | 2025-06-16 09:22 | XMS_ITS | Encounter Summary ---
Author Organization [facility] Address [address] [place] [address] Care Team Providers Care Power Plant Manager Name Role Phone Kassy Jay MD Primary Care Provider [phone] Encounter Details Date Type Department Care Team (Late Contact Info) Description 1998 Outpatient Historical [facility] Pediatrics - [place] [address] [address] [facility] [address] [place] [address] Darren Tabor MD NO ADDRESS ON FILE Social History Tobacco Use Types Packs/Day Years Used Date Smoking Tobacco: Never Assessed Comments Unknown Sex and Gender Information Value Date Recorded Sex Assigned at Not on file Legal Sex Female 4:02 AM PATTERNMAKER WOOD Gender Identity Not on file Sexual Orientation Not on file documented as of this encounter Plan of Treatment Upcoming Encounters Date Type Department Care Team (Late Contact Info) Description 06/26/2025 9:00 AM CDT Video Visit [facility] Adult Psychiatry [address] [address] Argelia Law NP [address] [place] [address] 08/08/2025 7:30 AM PATTERNMAKER WOOD Video Visit [facility] Adult Psychiatry [address] [address] Argelia Law NP [address] [place] [address] [place] [address] 09/25/2025 8:00 AM PATTERNMAKER WOOD Office Visit [facility] Primary Care - Kirby Herrmann [address] [place] [address] [address] Kassy Jay MD [address] [place] [phone] documented as of this encounter Visit Diagnoses Not on filedocumented in this encounter Additional Health Concerns Infection Onset Date Last Indicated Resolved Time R/O COVID-19 06/02/2021 06/03/2021 06/03/2021 7:34 PM CDT R/O COVID-19 12/22/2022 12/22/2022 12/22/2022 12:2 5 PM CDT R/O COVID-19 09/07/2023 09/07/2023 09/07/2023 9:52 PM PATTERNMAKER WOOD documented as of this encounter Care Teams Power Plant Manager Relationship Specialty Start Date End Date Kassy Jay MD [address] [place] [address] [phone] PCP - General Family Practice 12/04/22 documented as of this encounter
--- OUTSIDE RECORDS SUMMARY | 2025-06-16 09:22 | XMS_ITS | Encounter Summary ---
Author Organization [facility] Address [address] [place] [address] Care Team Providers Care Icicle Machine Operator Name Role Phone Kassy Jay MD Primary Care Provider [phone] Encounter Details Date Type Department Care Team (Late Contact Info) Description 05/04/2008 Outpatient Historical [facility] [address] [facility] [address] [place] [address] Headache Social History Tobacco Use Types Packs/Day Years Used Date Smoking Tobacco: Never Assessed Comments No Sex and Gender Information Value Date Recorded Sex Assigned at Not on file Legal Sex Female 4:02 AM VP CLINICAL Gender Identity Not on file Sexual Orientation Not on file documented as of this encounter Plan of Treatment Upcoming Encounters Date Type Department Care Team ([facility] Contact Info) Description 06/26/2025 9:00 AM CDT Video Visit [facility] Adult Psychiatry [address] [phone] Argelia Law NP [address] [address] 08/08/2025 7:30 AM VP CLINICAL Video Visit [facility] Adult Psychiatry [address] [phone] Debbie Lawney John, RADIOLOGY SCHEDULER [address] [place] [address] [place] [address] 09/25/2025 8:00 AM VP CLINICAL Office Visit [facility] Primary Care - Kirby Herrmann [address] [place] [address] [address] Kassy Jay MD [address] [phone] documented as of this encounter Visit Diagnoses Diagnosis Headache(784.0) Headache documented in this encounter Additional Health Concerns Infection Onset Date Last Indicated Resolved Time R/O COVID-19 06/02/2021 06/03/2021 06/03/2021 7:34 PM CDT R/O COVID-19 12/22/2022 12/22/2022 12/22/2022 12:2 5 PM CDT R/O COVID-19 09/07/2023 09/07/2023 09/07/2023 9:52 PM VP CLINICAL documented as of this encounter Care Teams Icicle Machine Operator Relationship Specialty Start Date End Date Kassy Jay MD [address] [place] [phone] PCP - General Family Practice 12/04/22 documented as of this encounter
--- OUTSIDE RECORDS SUMMARY | 2025-06-16 09:22 | XMS_ITS | Encounter Summary ---
Author Organization [facility] Address [address] [place] [address] Care Team Providers Care Orthotist Or Prosthetist Name Role Phone Kassy Jay MD Primary Care Provider [phone] Encounter Details Date Type Department Care Team (Late Contact Info) Description 1998 Outpatient Historical [facility] Pediatrics - [facility] [address] [address] [facility] [address] [place] [address] Darren Tabor MD NO ADDRESS ON FILE Social History Tobacco Use Types Packs/Day Years Used Date Smoking Tobacco: Never Assessed Comments Unknown Sex and Gender Information Value Date Recorded Sex Assigned at Not on file Legal Sex Female 4:02 AM DIAMOND GRINDER Gender Identity Not on file Sexual Orientation Not on file documented as of this encounter Plan of Treatment Upcoming Encounters Date Type Department Care Team (Late Contact Info) Description 06/26/2025 9:00 AM CDT Video Visit [facility] Adult Psychiatry [address] [address] Argelia Law NP [address] [place] [address] 08/08/2025 7:30 AM DIAMOND GRINDER Video Visit [facility] Adult Psychiatry [address] [address] Argelia Law NP [address] [place] [address] [place] [address] 09/25/2025 8:00 AM DIAMOND GRINDER Office Visit [facility] Primary Care - Kirby Herrmann [address] [place] [address] [address] Kassy Jay MD [address] [place] [phone] documented as of this encounter Visit Diagnoses Not on filedocumented in this encounter Additional Health Concerns Infection Onset Date Last Indicated Resolved Time R/O COVID-19 06/02/2021 06/03/2021 06/03/2021 7:34 PM CDT R/O COVID-19 12/22/2022 12/22/2022 12/22/2022 12:2 5 PM CDT R/O COVID-19 09/07/2023 09/07/2023 09/07/2023 9:52 PM DIAMOND GRINDER documented as of this encounter Care Teams Orthotist Or Prosthetist Relationship Specialty Start Date End Date Kassy Jay MD [address] [place] [place] [address] [phone] PCP - General Family Practice 12/04/22 documented as of this encounter
--- OUTSIDE RECORDS SUMMARY | 2025-06-16 09:22 | XMS_ITS | Encounter Summary ---
Author Organization [facility] Address [address] [place] [address] Care Team Providers Care Horseradish Grinder Name Role Phone Kassy Jay MD Primary Care Provider [phone] Encounter Details Date Type Department Care Team ([facility] Contact Info) Description 1998 Outpatient Historical HIS [facility] DR[facility] MAURICIO Tabor, Darren Ruiz MD NO ADDRESS ON FILE Social History Tobacco Use Types Packs/Day Years Used Date Smoking Tobacco: Never Assessed Comments Unknown Sex and Gender Information Value Date Recorded Sex Assigned at Not on file Legal Sex Female 4:02 AM MECHANICAL TEST ENGINEER Gender Identity Not on file Sexual Orientation Not on file documented as of this encounter Plan of Treatment Upcoming Encounters Date Type Department Care Team ([facility] Contact Info) Description 06/26/2025 9:00 AM CDT Video Visit [facility] Adult Psychiatry [address] [place] [address] Argelia Law NP [address] [place], [place] [address] [address] 08/08/2025 7:30 AM MECHANICAL TEST ENGINEER Video Visit [facility] Adult Psychiatry [address] [address] Argelia Law NP [address] [place] [address] [place] [address] 09/25/2025 8:00 AM MECHANICAL TEST ENGINEER Office Visit [facility] Primary Care - Kirby Herrmann [address] [place] [address] Kassy Jay MD [address] [place] [phone] documented as of this encounter Visit Diagnoses Not on filedocumented in this encounter Additional Health Concerns Infection Onset Date Last Indicated Resolved Time R/O COVID-19 06/02/2021 06/03/2021 06/03/2021 7:34 PM CDT R/O COVID-19 12/22/2022 12/22/2022 12/22/2022 12:2 5 PM CDT R/O COVID-19 09/07/2023 09/07/2023 09/07/2023 9:52 PM MECHANICAL TEST ENGINEER documented as of this encounter Care Teams Horseradish Grinder Relationship Specialty Start Date End Date Kassy Jay MD [address] [place] [phone] PCP - General Family Practice 12/04/22 documented as of this encounter
--- OUTSIDE RECORDS SUMMARY | 2025-06-16 09:22 | XMS_ITS | Encounter Summary ---
Author Organization [facility] Address [address] [place] [address] Care Team Providers Care New Home Sales Consultant Name Role Phone Kassy Jay MD Primary Care Provider [phone] Encounter Details Date Type Department Care Team (Late st Contact Info) Description 08/11/2007 Orders Only [facility] Pediatrics - [facility] [address] [address] [facility] [address] [place] [address] [place] [address] [facility] [address] [place] [address] Social History Tobacco Use Types Packs/Day Years Used Date Smoking Tobacco: Never Assessed Comments Unknown Sex and Gender Information Value Date Recorded Sex Assigned at Not on file Legal Sex Female 4:02 AM RADIO DESPATCHER Gender Identity Not on file Sexual Orientation [...] [facility] Adult Psychiatry [place] [address] [place] [address] Thanh, Argelia Lopez, [place] [address] [place] [address] [place] [address] 08/08/2025 7:30 AM RADIO DESPATCHER Video Visit [facility] Adult Psychiatry [place] [address] [place] [phone] Thanh, Argelia Lopez NP [address] [place] [address] [address] [place] [address] 09/25/2025 8:00 AM RADIO DESPATCHER Office Visit [facility] Primary Care - Kirby Herrmann [address] [place] [phone] Kassy Jya MD [address] [place] [phone] documented as of this encounter Visit Diagnoses Not on filedocumented in this encounter Additional Health Concerns Infection Onset Date Last Indicated Resolved Time R/O COVID-19 06/02/2021 06/03/2021 06/03/2021 7:34 PM CDT R/O COVID-19 12/22/2022 12/22/2022 12/22/2022 12:2 5 PM CDT R/O COVID-19 09/07/2023 09/07/2023 09/07/2023 9:52 PM RADIO DESPATCHER documented as of this encounter Care Teams New Home Sales Consultant Relationship Specialty Start Date End Date Kassy Jay MD [address] [place] [address] [phone] PCP - General Family Practice 12/04/22 documented as of this encounter
--- OUTSIDE RECORDS SUMMARY | 2025-06-16 09:22 | XMS_ITS | Encounter Summary ---
Author Organization [facility] Address [address] [place] [address] Care Team Providers Care News Clerk Name Role Phone Kassy Jay MD Primary Care Provider [phone] Encounter Details Date Type Department Care Team (Late Contact Info) Description 04/06/1999 Outpatient Historical [facility] - [facility] [phone] [id number] [facility] [address] [place] [address] Darren Tabor MD NO ADDRESS ON FILE Social History Tobacco Use Types Packs/Day Years Used Date Smoking Tobacco: Never Assessed Comments Unknown Sex and Gender Information Value Date Recorded Sex Assigned at Not on file Legal Sex Female 4:02 AM [employer] Gender Identity Not on file Sexual Orientation Not on file documented as of this encounter Plan of Treatment Upcoming Encounters Date Type Department Care Team (Late Contact Info) Description 06/26/2025 9:00 AM CDT Video Visit [facility] [address] [phone] Argelia Law NP [address] [place] [id number] 08/08/2025 7:30 AM [employer] Video Visit [facility] [address] [phone] Argelia Law NP [address] [address] [address] [id number] 09/25/2025 8:00 AM [employer] Office Visit [facility] - Kirby Herrmann [address] [place] [phone] Kassy Jay MD [address] [place] [phone] documented as of this encounter Visit Diagnoses Not on filedocumented in this encounter Additional Health Concerns Infection Onset Date Last Indicated Resolved Time R/O COVID-19 06/02/2021 06/03/2021 06/03/2021 7:34 PM CDT R/O COVID-19 12/22/2022 12/22/2022 12/22/2022 12:2 5 PM CDT R/O COVID-19 09/07/2023 09/07/2023 09/07/2023 9:52 PM [employer] documented as of this encounter Care Teams News Clerk Relationship Specialty Start Date End Date Kassy Jay MD [address] [place] [place] [id number] PCP - General Family Practice 12/04/22 documented as of this encounter
--- OUTSIDE RECORDS SUMMARY | 2025-06-16 09:22 | XMS_ITS | Clinical Summary ---
Author Organization [facility] Address [address] [place] [address] Phone Care Team Providers Care Rhythmic Gymnastics Coach Name Role Phone Kassy Jay MD Primary Care Provider [phone] Allergies Active Allergy Reactions Criticality Noted Date [...] Zyrtec & solumedrol given. 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 Psychogenic nonepileptic seizure 12/16/2021 08/19/2023 Nightmares 07/01/2021 [...] Description 06/12/2025 2:00 PM CDT Video Visit [facility] [place] [address] [address] [place] [address] Argelia Law NP Bipolar 1 disorder, mixed, partial remission (CMS/HCC) (Primary Dx); BARBIE (generalized anxiety disorder); Borderline personality disorder (CMS/HCC); Attention deficit hyperactivity disorder (ADHD), predominantly inattentive type; Insomnia, unspecified type; Atypical anorexia nervosa; PTSD (post-traumatic stress disorder); Panic disorder; Unspecified mood (affective) disorder 06/12/2025 [facility] Psychiatry [address] [address] [place] [address] Argelia Law NP Attention deficit hyperactivity disorder (ADHD), predominantly inattentive type 06/07/2025 External Device Data STL ABSTRACTION Provider, Abstract 06/06/2025 External Device Data STL ABSTRACTION Provider, Abstract 06/02/2025 [facility] Psychiatry [address] [place] [address] Argelia Law NP BARBIE (generalized anxiety disorder) 05/30/2025 External Device Data STL ABSTRACTION Provider, Abstract 05/29/2025 7:30 AM CDT Video Visit [facility] Psychiatry [address] [place] [address] Argelia Law NP Attention deficit hyperactivity disorder (ADHD), predominantly inattentive type (Primary Dx); BARBIE (generalized anxiety disorder); Insomnia, unspecified type; Bipolar 1 disorder, mixed, partial remission (CMS/HCC); Borderline personality disorder (CMS/HCC); Atypical anorexia nervosa; PTSD (post-traumatic stress disorder); Panic disorder 05/29/2025 [facility] Psychiatry [address] [place] [address] Argelia Law NP Attention deficit hyperactivity disorder (ADHD), predominantly inattentive type (Primary Dx) 05/24/2025 External Device Data STL ABSTRACTION Provider, Abstract 05/23/2025 Telephone [facility] Psych[facility]ry [facility] [address] and [place] [facility] [place] [address] Argelia Law NP Medication Problem 05/18/2025 Refill [facility] Adult Psychiatry [address] [place] [address] Argelia Law NP BARBIE (generalized anxiety disorder) 05/18/2025 Refill [facility] Adult Psychiatry [address] [address] [place], [place] [address] Argelia Law NP Insomnia, unspecified type (Primary Dx) 05/09/2025 7:30 AM CDT Video Visit [facility] Adult Psychiatry [address] [address] [place], [place] [address] Argelia Law NP Bipolar 1 disorder, mixed, partial remission (CMS/HCC) (Primary Dx); Borderline personality disorder (CMS/HCC); BARBIE (generalized anxiety disorder); Atypical anorexia nervosa; Insomnia, unspecified type; PTSD (post-traumatic stress disorder); Attention deficit hyperactivity disorder (ADHD), predominantly inattentive type; Panic disorder 05/03/2025 [facility] Adult Psychiatry [address] [address] [place] [address] Argelia Law NP BARBIE (generalized anxiety disorder) 05/02/2025 External Device Data STL ABSTRACTION Provider, Abstract 04/29/2025 [facility] Adult Psychiatry [address] [address] [place], [place] [address] Argelia Law NP BARBIE (generalized anxiety disorder); Bipolar 1 disorder, mixed (CMS/HCC) 04/27/2025 [facility] Psychiatry [address] [place] [address] Argelia Law NP BARBIE (generalized anxiety disorder) 04/26/2025 Telephone [facility] Psychiatry [address] AND [facility] [place] [address] Argelia Law NP Letter for School/Work 04/12/2025 Telephone [facility] Primary Care - Michael Herrmann [address] [place] [address] Kassy Jay MD Provider Call 04/10/2025 4:00 PM CDT Video Visit [facility] Adult Psychiatry [address] [address] [place] [address] Argelia Law NP Bipolar 1 disorder, mixed, partial remission (CMS/HCC) (Primary Dx); Unspecified mood (affective) disorder; BARBIE (generalized anxiety disorder); Borderline personality disorder (CMS/HCC); Attention deficit hyperactivity disorder (ADHD), predominantly inattentive type; Atypical anorexia nervosa; Insomnia, unspecified type; PTSD (post-traumatic stress disorder); Panic disorder 04/10/2025 [facility] Adult Psychiatry [address] [address] [place] [address] Argelia Law NP Attention deficit hyperactivity disorder (ADHD), predominantly inattentive type 04/10/2025 [facility] [place] [address] Kassy Jay MD [facility] Physician Form 04/10/2025 [facility] [address] [place] [address] Kassy Jay MD Remote Monitoring 04/09/2025 Results Follow-Up [facility] [place] [address] Rayne Rojo FNP COMPREHENSIVE METABOLIC PANEL, CBC WITH DIFFERENTIAL 04/07/2025 2:40 PM CDT Clinical Support [facility] [place] [address] Severe calorie deficiency (Primary Dx) 04/07/[facility] [place] [address] Kassy Jay MD Blood Pressure Monitoring 04/07/2025 [facility] [place] [address] Kassy Jay MD Provider Call; Patient Communication 04/07/2025 [facility] [place] [address] Kassy Jay MD Needs Orders Written 04/06/2025 12:52 PM CDT - 04/06/2025 11:59 PM CDT Hospital Encounter [facility] Heart and Vascular Testing [facility] [address] [facility] [address] [place] [address] Jarett Rodney MD Discharge Disposition: Home or Self Care 04/06/2025 12:51 PM CDT - 04/06/2025 11:59 PM CDT Hospital Encounter [facility] Heart and Vascular Testing [facility] [address] [facility] [address] [place] [address] Jarett Rodney MD Discharge Disposition: Home or Self Care 04/06/2025 Results Follow-Up [facility] Heart [facility] Vascular - [address] [place] [address] Jarett Rodney MD STRESS TEST EXERCISE TREADMILL, HOLTER MONITOR 04/06/2025 Chart Note [facility] - [address] [facility] [address] [facility] [address] [place] [address] Anthony Rae ANP 04/03/2025 12:50 PM CDT Office Visit [facility] - [address] [facility] [address] [facility] [address] [place] [address] Jarett Rodney MD Chest pain, unspecified type (Primary Dx); Anorexia; Syncope, unspecified syncope type 04/01/2025 4:15 PM CDT - 04/01/2025 4:50 PM CDT Emergency [facility] [address] [place] [address] Concussion with loss of consciousness of 30 minutes or less, initial encounter (Primary Dx) Discharge Disposition: Home or Self Care 04/01/2025 Travel 03/31/2025 Telephone [facility] Primary Care - [place] Herrmann [address] [place] [address] Kassy Jay MD Information 03/31/2025 Telephone [facility] Heart and Vascular - [address] [address] [address] [place] [address] Rayne Rojo FNP urgent new pt appt; 1st call, LMOR 03/31/25 03/31/2025 Results Follow-Up [facility] Care [facility] [address] [place] [address] Ranye Rojo FNP COMPREHENSIVE METABOLIC PANEL, HEMOGLOBIN A1C, TSH REFLEXIVE, Additional followed-up results: 03/31/2025 [facility] [address] [place] [address] Kassy Jay MD Clinical Consult Before Scheduling; Patient Communication 03/29/2025 7:30 AM CDT Office Visit [facility] [address] [place] [address] Rayne Rojo FNP Severe calorie deficiency (Primary Dx); Abnormal weight loss; Vitamin B12 deficiency (non anemic); Iron deficiency anemia, unspecified iron deficiency anemia type; BARBIE (generalized anxiety disorder); Encounter for vitamin deficiency screening; Screening for diabetes mellitus; Primary insomnia; Gastroesophageal reflux disease without esophagitis 03/23/2025 [facility] [address] [place] [address] Kassy Jay MD Provider Call 03/21/2025 [facility] [address] [place] [address] Kassy Jay MD Needs Orders Written; Patient Communication 03/21/2025 [facility] Psychiatry [place] [address] [place] [facility] [place] [phone] Argelia Law, [place] Medication Question from Last 3 Months Immunizations Immunization Administration [...] Augustin Love in 2011 from fall in group home No Known Problems Paternal Grandmother Celiac Disease [...] Never 02/09/2020 How often do you attend shinto or spiritism serv ices? 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 Gender Identity Not on file [...] [facility] Psych[facility] [address] [address] [place] [address] Argelia Law NP [address] [place] [address] [place] [address] 08/08/2025 7:30 AM KERFER MACHINE OPERATOR Video Visit [facility] Adult Psychiatry [address] [address] [place] [address] Argelia Law NP [address] [place] [address], [place] [address] 09/25/2025 8:00 AM KERFER MACHINE OPERATOR Office Visit [facility] Primary Care - [place] Herrmann [address] [place] [address] Kassy Jay MD [address] [place] [address] Health Maintenance Due Date Last Done Comments HPV/Cotest (-) 2019 HPV VACCINES (1 - 3-dose SCD [...] history exists Medical Devices Implanted Type Area Strap Maker Device Identifier Shelf Expiration Date Model / Serial / Lot Clip Ti Med/Lg 3200 - Csc - [id number] Implanted:Qty: 2 on 01/03/2025 by Tarik Cervantes DO at [facility] N/A: Abdomen TELEFLEX- WECK CLOSURE SYS 06/09/2029 [id number] / / [id number] Iud Procedures Procedure Name Priority Date/Time Associated [...] BARBIE (generalized anxiety disorder) Severe calorie deficiency HI ECG ROUTINE ECG W/LEAST 12 LDS W/I&R Routine 03/29/2025 7:30 AM CDT Severe calorie deficiency Abnormal weight loss BARBIE (generalized anxiety disorder) from Last 3 Months Results * HOLTER MONITOR (04/09/2025 9:20 PM CDT) 04/09/2025 9:20 PM CDT Narrative INTERFACE SYSTEM - 04/10/2025 4:32 PM [address]T [address] [address] Test Date: 2025-04-09 Pat Name: ISAURA FRANCIS Department: Room: Gender: Female 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 Primary rhythm was Sinus Rhythm. Average heart rate was 79 bpm, Minimum heart rate was 53 bpm on Day 3 / :52:14 am, Max heart rate was 147 bpm on Day :55:52 pm SVE(s): Lenore was less than 0.01 %, 3 total SVE(s) PVC(s): Lenore was less than 0.01 %, 5 total [...] Procedure Note Hayes Otero MD - 04/10/[address] [address] Test Date: 2025-04-09 Pat Name: ISAURA FRANCIS Department: Room: Gender: Female Rivet Hole Machine Operator: : 2000 Requested By: JARETT Gibson Order Number: [id number] Reading MD: Hayes Otero Interpretive Statements Patient monitored for 2d, analyzable time was 2d starting on 2:51 pm. Primary rhythm was Sinus Rhythm. Average heart rate was 79 bpm, Minimumheart rate was 53 bpm on Day 3 :52:14 am, Max heart rate was 147 bpm on Day:55:52 pm SVE(s): Lenore was less than 0.01 %, 3 total SVE(s) PVC(s): Lenore was less than 0.01 %, 5 total [...] On 04-10-2025 16:32:38 CDT by Hayes Otero us Jarett Rodney MD CARDIAC SERVICES ORDERABLES Final Result INTERFACE SYSTEM Refer to clinic/hospital department * (ABNORMAL) CBC WITH DIFFERENTIAL (04/07/2025 2:47 PM CDT) Only the most recent of3 resultswithin the time period is included. WBC 7.2 3.8 - 10.8 Thousand/ uL [facility] RBC 5.04 3.80 - 5.10 Million/u L [facility] HEMOGLOBIN 14.6 11.7 - 15.5 g/dL [facility] HEMATOCRIT 45.5(H) 35.0 - 45.0 % [facility] MCV 90.3 80.0 - 100.0 fL [facility] MCH 29.0 27.0 - 33.0 pg [facility] MCHC 32.1 32.0 - 36.0 g/dL [facility] Comment: For adults, a slight decrease in the calculated MCHC value (in the range of 30 to 32 g/dL) is most likely not clinically significant; however, it should be interpreted with caution in correlation with other red cell parameters and the patient's clinical condition. RDW 13.0 11.0 - 15.0 % [facility] PLATELETS 261 140 - 400 Thousand/ uL [facility] MPV 9.9 7.5 - 12.5 fL [facility] NEUTROPHIL ABSOLUTE 4,889 1,500 - 7,800 cells/uL [facility] LYMPHOCYTE ABSOLUTE 1,937 850 - 3,900 cells/uL [facility] MONOCYTE ABSOLUTE 302 200 - 950 cells/uL [facility] EOSINOPHIL ABSOLUTE 43 15 - 500 cells/uL [facility] BASOPHILS ABSOLUTE 29 0 - 200 cells/uL [facility] NEUTROPHIL 67.9 % [facility] LYMPHOCYTES 26.9 % [facility] MONOCYTE 4.2 % [facility] EOSINOPHILS 0.6 % [facility] BASOPHILS 0.4 % [facility] Comment: Test Performed at: [facility] [address] [place] [address] Lc Andrews Blood 04/07/2025 2:47 PM CDT 04/07/2025 2:48 PM CDT Rayne Rojo BRICKLAYER PAVING BRICK HEMATOLOGY ORDERABLES Final Result [facility] [phone] [facility] [address] [place] [address] * (ABNORMAL) COMPREHENSIVE METABOLIC PANEL (04/07/2025 2:47 PM CDT) Only the most recent of3 resultswithin the time period is included. GLUCOSE 144(H) 65 - 99 mg/dL [facility] Comment: Fasting reference interval For someone without known diabetes, a glucose value >125 mg/dL indicates that they may have diabetes and this should be confirmed with a follow-up test. BUN 12 7 - 25 mg/dL [facility] CREATININE 0.63 0.50 - 0.96 mg/dL [facility] GFR 125 > OR = 60 mL/min/1. 73m2 [facility] BUN/CREAT RATIO SEE NOTE: (calc) [facility] Comment: Not Reported: BUN and Creatinine are within reference range. SODIUM 140 135 - 146 mmol/L [facility] POTASSIUM 3.9 3.5 - 5.3 mmol/L [facility] Richard CHLORIDE 103 98 - 110 mmol/L [facility] Richard CO2 28 20 - 32 mmol/L [facility] Richard CALCIUM 9.8 8.6 - 10.2 mg/dL [facility] TOTAL PROTEIN 7.2 6.1 - 8.1 g/dL [facility] Richard ALBUMIN 4.6 3.6 - 5.1 g/dL [facility] Richard GLOBULIN 2.6 1.9 - 3.7 g/dL (calc) [facility] Richard ALBUMIN/GLOBULIN RATIO 1.8 1.0 - 2.5 (calc) [facility] Ramos BILIRUBIN TOTAL 0.3 0.2 - 1.2 mg/dL [facility] Richard ALKALINE PHOSPHATASE 50 31 - 125 U/L [facility] AST 13 10 - 30 U/L [facility] ALT 12 6 - 29 U/L [facility] Comment: Test Performed at: [facility] [address] [place] [address] Susi-Jeanette Thi Vo Blood 04/07/2025 2:47 PM CDT 04/07/2025 2:48 PM CDT Rayne Rojo BRICKLAYER PAVING BRICK CHEMISTRY ORDERABLES Final Result [facility] [phone] [facility] [address] [place] [address] * STRESS TEST EXERCISE TREADMILL (04/06/2025 1:34 PM CDT) EJECTION FRACTION EF: INTERFACE SYSTEM 04/06/2025 2:00 PM CDT Narrative INTERFACE SYSTEM - 04/06/2025 2:48 PM CDT [facility] Stress Electrography Redd Protocol Patient: Isaura Francis Study ID: Gender: Karan : 2000 Age: 25 Race: KIT Height 154.9cm Study Date: 04/06/2025 Weight: 71.7kg Access. #: [id number] BP: 116 / 88 *Referring Physician:Jarett Johns *Ordering Physician:* Jarett Rodney road packer operator: Nurse: JESSE Indications: Chest pain. Syncope. History: [...] peak heart rate and blood pressure was 57527sg Hg/min. The patient experienced no chest pain [...] laboratory. Prepared and Electronically Authenticated Jarett Rodney [id number]:48:45 Procedure Note Jarett Rodney MD - 04/06/2025 [facility] Stress Electrography Redd Protocol Patient: Isaura Francis Study ID: Gender: F : 2000 Age: 25 Race: KIT Height 154.9cm Study Date: 04/06/2025 Weight: 71.7kg Access. #: [id number] BP: 116 / 88 *Referring Physician:Jarett Johns *Ordering Physician:Jarett Johns road packer operator: Nurse: HT Indications: Chest pain. Syncope. History: PMH: Asthma. [...] the peakheart rate and blood pressure was 01786pu Hg/min. The patient experienced nochest pain during [...] Echo laboratory. Prepared and ElectronicallyAuthenticated Jarett Rodney [id number]:48:45 us Jarett Rodney MD NM ORDERABLES Final Resul t Performing Organization Address City/State/[facility] Co de Phone Number INTERFACE SYSTEM Refer to clinic/hospital department * TROPONIN BASELINE, 5TH GEN (04/01/2025 2:57 PM CDT) TROPONIN T, BASELINE 5TH GEN <6 <=10 ng/L 04/01/2025 3:53 PM CDT [facility] [place] [facility] Blood Venipuncture / Unknown 04/01/2025 2:57 PM CDT 04/01/2025 3:18 PM CDT Narrative [facility] [place] [facility] - 04/01/2025 3:53 PM CDT Troponin Undetectable us Protocol [facility] MD CHEMISTRY ORDERABLES Final Result [facility] [place] [facility] CLIA# [id number] [address] [place] [address] * HCG QUALITATIVE, BLOOD (04/01/2025 2:57 PM CDT) HCG QUAL, BLOOD Negative Negative 04/01/2025 3:34 PM CDT [facility] [place] [facility] Blood Venipuncture / Unknown 04/01/2025 2:57 PM CDT 04/01/2025 3:13 PM CDT us Protocol [facility] MD CHEMISTRY ORDERABLES Final Result [facility] LABORATORY SERVICES - [facility]# [id number] [address] [place] [address] * EKG 12-LEAD (04/01/2025 2:53 PM CDT) Only the most recent of2 resultswithin the time period is included. 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 Operator: : 2000 Requested By: Order Number: [id number] Reading : Loy Malone Measurements Intervals [place] Rate: 77 P: 20 HI: 150 QRS: 11 QRSD: 80 T: 35 QT: 386 QTc: 436 Interpretive Statements Normal sinus rhythm with sinus arrhythmia Normal ECG Compared to ECG 03/03/2025 17:52:21 T-wave abnormality no longer present Electronically Signed On 04-02-2025 11:56:32 CDT by Loy Malone Procedure Note Loy Malone MD - 04/02/2025 [place] [address] Test Date: 2025-04-01 Pat Name: ISAURA FRANCIS Department: 92 Room: Gender: Female 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 Machine Operator: : 2000 Requested By: Order Number: [id number] Reading : Loy Malone Measurements Intervals [place] Rate: 77 P: 20 HI: 150 QRS: 11 QRSD: 80 T: 35 QT: 386 QTc: 436 Interpretive Statements Normal sinus rhythm with sinus arrhythmia Normal ECG Compared to ECG 03/03/2025 17:52:21 T-wave abnormality no longer present Electronically Signed On 7-13-2025 11:56:32 CDT by Loy Malone Protocol [facility] MD ECG ORDERABLES Final Result INTERFACE SYSTEM Refer to clinic/hospital department * URINALYSIS WITH REFLEX CULTURE (03/29/2025 8:12 AM CDT) COLOR UA YELLOW YELLOW [facility] CLARITY UA CLEAR CLEAR [facility] SPECIFIC GRAVITY UA 1.019 1.001 - 1.[address] [facility] PH UA 6.5 5.0 - 8.[address] [facility] GLUCOSE UA NEGATIVE NEGATIVE [facility] BILIRUBIN UA NEGATIVE NEGATIVE [facility] KETONES UA NEGATIVE NEGATIVE [facility] BLOOD UA NEGATIVE NEGATIVE [facility] PROTEIN UA NEGATIVE NEGATIVE [facility] NITRITE UA NEGATIVE NEGATIVE [facility] LEUKOCYTE ESTERASE UA NEGATIVE NEGATIVE [facility] WBC UA NONE SEEN < OR = 5 /HPF [facility] RBC UA NONE SEEN < OR = 2 /HPF [facility] EPITHELIAL CELLS, URINE 0-5 < OR = 5 /HPF [facility] BACTERIA UA NONE SEEN NONE SEEN /HPF [facility] HYALINE CAST NONE SEEN NONE SEEN /LPF [facility] URINE NOTE [facility] Comment: This urine was analyzed for the presence of WBC, RBC, bacteria, casts, and other formed elements. Only those elements seen were reported. URINE CULTURE [facility] Comment: NO CULTURE INDICATED Test Performed at: [employer] [place] [address] [place] [address] Lc Andre Vo Urine URINE SPECIMEN OBTAINED BY CLEAN CATCH PROCEDURE / Unknown 03/29/2025 8:12 AM CDT 03/29/2025 8:12 AM CDT us Rayne Rojo BRICKLAYER PAVING BRICK URINE ORDERABLES Jessica l Result [facility] [phone] [place] [address] [address] [place] [address] * TSH REFLEXIVE (03/29/2025 8:10 AM CDT) TSH 2.22 mIU/L [facility] Comment: Reference Range > or = 20 Years 0.40-4.50 Ranges First trimester 0.26-2.66 Second trimester 0.55-2.73 Third trimester 0.43-2.91 FASTING:NO FASTING: NO Test Performed at: [place] [address] [place] [address] Lc Andrews Blood 03/29/2025 8:10 AM CDT 03/29/2025 8:11 AM CDT Rayne Rojo [facility] CHEMISTRY ORDERABLES Final Result [facility] [phone] [place] [address] [address] [place] [address] * (ABNORMAL) VITAMIN B12 AND FOLATE (03/29/2025 8:10 AM CDT) Pathologist [facility] VITAMIN B12 466 200 - 1100 pg/mL [facility] FOLATE, SERUM 4.5(L) ng/mL [facility] Comment: Reference Range Low: <3.4 Borderline: 3.4-5.4 Normal: >5.4 Test Performed at: [place] [address] [place] [address] [facility] Elvi Andrews MD Blood 03/29/2025 8:10 AM CDT 03/29/2025 8:11 AM CDT Rayne Rojo [facility] CHEMISTRY ORDERABLES Final Result Performing Organization Address City/State/ZIP [facility] Phone Number [facility] [phone] [facility] [address] [place] [address] * IRON, TIBC, AND PERCENT SATURATION (03/29/2025 8:10 AM CDT) Pathologist [facility] IRON 50 40 - 190 mcg/dL [facility] TIBC 287 250 - 450 mcg/dL (calc) [facility] IRON % SATURATION 17 16 - 45 % (calc) [facility] Comment: FASTING:NO FASTING: NO Test Performed at: [facility] [address] [place] [address] Lc Andrews MD Blood 03/29/2025 8:10 AM CDT 03/29/2025 8:11 AM CDT Rayne Rojo [facility] CHEMISTRY ORDERABLES Final Result [facility] [phone] [facility] [address] [place], [place] [address]ner [place] [address] * VITAMIN D 25 HYDROXY (03/29/2025 8:10 AM CDT) Pathologist [facility] VITAMIN D, 25 OH, TOTAL 55 30 - 100 ng/mL [facility] Comment: Vitamin D Status 25-OH Vitamin D: Deficiency: <20 ng/mL Insufficiency: 20 - 29 ng/mL Optimal: > or = 30 ng/mL For 25-OH Vitamin D testing on patients on D2-supplementation and patients for whom quantitation of D2 and D3 fractions is required, the QuestAssureD(TM) 25-OH VIT D, (D2,D3), LC/MS/MS is recommended: order code 02495 (patients >2yrs). See Note 1 Note 1 For additional information, please refer to http://education.Health: Elt/faq/RZN750 (This link is being provided for informational/ educational purposes only.) FASTING:NO FASTING: NO Test Performed at: [facility] [address] [place] [address] Lc Andrews MD Blood 03/29/2025 8:10 AM CDT 03/29/2025 8:11 AM CDT Rayne [facility] CHEMISTRY ORDERABLES Final Result [facility] [phone] [facility] [address] [place] [address] [place] [address] * MAGNESIUM LEVEL (03/29/2025 8:10 AM CDT) MAGNESIUM 1.9 1.5 - 2.5 mg/dL [facility] Comment: Test Performed at: [facility] [address] [address] [address] [facility] Blood 03/29/2025 8:10 AM CDT 03/29/2025 8:11 AM CDT Rayne Rojo [facility] CHEMISTRY ORDERABLES Final Result [facility] [phone] [facility] [place] [facility] [address] [address] [address] * HEMOGLOBIN A1C (03/29/2025 8:10 AM CDT) HEMOGLOBIN A1C 5.2 <5.7 % of total Hgb [facility] Comment: For the purpose of screening for the presence of diabetes: <5.7% Consistent with the absence of diabetes 5.7-6.4% Consistent with increased risk for diabetes (prediabetes) > or =6.5% Consistent with diabetes This assay result is consistent with a decreased risk of diabetes. Currently, no consensus exists regarding use of hemoglobin A1c for diagnosis of diabetes in children. According to [place] Diabetes Association (ADA) guidelines, hemoglobin A1c <7.0% represents optimal control in non- diabetic patients. Different metrics may apply to specific patient populations. Standards of Medical Care in Diabetes(ADA). ESTIMATED AVERAGE GLUCOSE (MG/DL) 103 mg/dL [facility] ESTIMATED AVERAGE GLUCOSE (MMOL/L) 5.7 mmol/L [facility] eliv Raoms Comment: FASTING:NO FASTING: NO Test Performed at: [facility] [address] [address] [address] [facility] Blood 03/29/2025 8:10 AM CDT 03/29/2025 8:11 AM CDT Rayne Rojo [facility] CHEMISTRY ORDERABLES Final Result [facility] [phone] [place] [address] [address] [address] * FERRITIN (03/29/2025 8:10 AM CDT) FERRITIN 32 16 - 154 ng/mL [facility] Comment: Test Performed at: [facility] [address] [place] [address] SusiJeanette Andrews MD Blood 03/29/2025 8:10 AM CDT 03/29/2025 8:11 AM CDT Rayne Rojo [facility] CHEMISTRY ORDERABLES Final Result Performing Organization Address City/[facility]/ZIP [facility] Phone Number [facility] [phone] [facility] [facility] [address] [place] [address] * CK (03/29/2025 8:10 AM CDT) Pathologist [facility] CK 30 20 - 239 U/L [facility] Comment: Test Performed at: [facility] [place] [address] [address] [address] SusiJeanette Andrews Blood 03/29/2025 8:10 AM CDT 03/29/2025 8:11 AM CDT Rayne Rojo [facility] CHEMISTRY ORDERABLES Final Result Performing Organization Address City/State/ZIP [facility] Phone Number [facility] [phone] [place] [address] [address] [address] * AMYLASE (03/29/2025 8:10 AM CDT) AMYLASE 28 21 - 101 U/L [facility] Comment: FASTING:NO FASTING: NO Test Performed at: [facility] [place] [address] [address] [address] Lc Andrews Blood 03/29/2025 8:10 AM CDT 03/29/2025 8:11 AM CDT Rayne Boydezequielcarmencita [facility] CHEMISTRY ORDERABLES Final Result [facility] [phone] [facility] [address] [address] [place] [address] from Last 3 Months Insurance [employer] [address] AETNA OPEN CHOICE PPO STUDENT RESOURCES [id number] AETNA CHOICE POS II RX INFOCROSSING Medicaid RX [facility] RX [place] PLANS (INTERNAL) [facility] Plans BC[place] [address] AET[employer] OPEN CHOICE PPO Advance Directives For more information, please contact: [phone] * Full Code (Latest Code Status on [...] 8:57 PM 10/10/2021 1:06 PM Care Teams Rhythmic Gymnastics Coach Relationship Specialty Start Date End Date Kassy Jay MD [address] [place] [address] PCP - General Family Practice 12/04/22
--- OUTSIDE RECORDS SUMMARY | 2025-06-16 09:22 | XMS_ITS | Encounter Summary ---
Author Organization [facility] Address [address] [place] [address] Care Team Providers Care Workers Compensation Claims Analyst Name Role Phone Kassy Jay MD Primary Care Provider [phone] Encounter Details Date Type Department Care Team (Late Contact Info) Description 01/01/2000 Outpatient Historical [facility] Pediatrics - [facility] [address] [place] [address] [place] [address] [place] [address] Social History Tobacco Use Types Packs/Day Years Used Date Smoking Tobacco: Never Assessed Comments Unknown Sex and Gender Information Value Date Recorded Sex Assigned at Not on file Legal Sex Female 4:02 AM MULTIMEDIA PRODUCTION ASSISTANT Gender Identity Not on file Sexual Orientation Not on file documented as of this encounter Plan of Treatment Upcoming Encounters Date Type Department Care Team (Late Contact Info) Description 06/26/2025 9:00 AM CDT Video Visit [facility] Adult Psychiatry [place] [address] [address] Argelia Law NP [address] [address] 08/08/2025 7:30 AM MULTIMEDIA PRODUCTION ASSISTANT Video Visit [facility] Adult Psychiatry [place] [address] [place] [address] [address] [place] [address] Argelia Law NP [address] [facility] [address] [place] [address] 09/25/2025 8:00 AM MULTIMEDIA PRODUCTION ASSISTANT Office Visit [facility] Primary Care - [place] [address] [place] [address] Kassy Jay MD [address] [place] [address] documented as of this encounter Visit Diagnoses Not on filedocumented in this encounter Additional Health Concerns Infection Onset Date Last Indicated Resolved Time R/O COVID-19 06/02/2021 06/03/2021 06/03/2021 7:34 PM CDT R/O COVID-19 12/22/2022 12/22/2022 12/22/2022 12:2 5 PM CDT R/O COVID-19 09/07/2023 09/07/2023 09/07/2023 9:52 PM MULTIMEDIA PRODUCTION ASSISTANT documented as of this encounter Care Teams Workers Compensation Claims Analyst Relationship Specialty Start Date End Date Kassy Jay MD [address] [place] [address] PCP - General Family Practice 12/04/22 documented as of this encounter
[2025-06-16] MEDS: SODIUM CHLORIDE 0.9% IV 1,000 ML 999 ML IV CONT (09:44)
[2025-06-16] MEDS: ONDANSETRON INJ 4 MG/2 ML VIAL IV PUSH (09:45)
--- NOTE | 2025-06-16 09:55 | ED.GENADULT ---
HPI - General Adult General Chief complaint: Unspecified Stated complaint: ?concussion Time Seen by Provider: 06/16/25 09:12 Source: patient Mode of arrival: ambulatory Limitations: no limitations History of Present Illness HPI narrative: This is a 25-year-old female that presents to the emergency department for a headache, nausea, dizziness. Reports she was seen a couple of days prior after a pseudo-seizure. She did sustain a head injury during this. She had refused any further workup at the time, including CT brain. Presents for further evaluation. She also endorses a rash to the lower abdomen which has been present over the last 2 weeks. Describes it as itchy. She does not endorse any concern for STDs. Denies fevers, dysuria. Related Data Allergies Allergy/AdvReac Type Severity Reaction Status Date / Time amoxicillin Allergy Severe Anaphylaxis Verified 06/16/25 08:56 Review of Systems Review of Systems: All systems reviewed & are unremarkable except as noted in HPI and below PMFSH Past Medical History Medical History (Updated 06/16/25 @ 10:36 by Justyna Martinez PA-C) Anxiety GERD (gastroesophageal reflux disease) Bipolar disorder Exam Narrative: GENERAL: Well-appearing, well-nourished, and in no acute distress. HEAD: Normocephalic, atraumatic. EYES: PERRLA and EOMI. ENT: Nares clear, no rhinorrhea or epistaxis. Mucous membranes moist. Oropharynx without tonsillar hypertrophy exudate or other lesions. Bilateral TMs pearly moore non-bulging NECK: Supple. No adenopathy or masses. No midline spinal tenderness CHEST: Clear to auscultation. No respiratory distress. No wheezes rales or rhonchi HEART: Regular rate and rhythm. No murmur heard. Normal peripheral pulses. EXTREMITIES: Normal range of motion. No edema. Strength equal in bilateral upper and lower extremities (5/5) SKIN: Warm, dry, no rash. NEURO: No focal deficits. Alert and oriented x3. CN II-XII grossly intact PSYCH: Normal mood and affect Course Vital Signs Vital signs: Vital Signs Temperature 98.2 F 06/16/25 08:48 Pulse Rate 75 06/16/25 08:48 Respiratory Rate 18 06/16/25 08:48 Blood Pressure 136/85 06/16/25 08:48 Pulse Oximetry 100 06/16/25 08:48 Oxygen Delivery Room Air 09/26/25 08:48 Temperature 98.2 F 06/16/25 08:48 Pulse Rate 75 06/16/25 08:48 Respiratory Rate 18 06/16/25 08:48 Blood Pressure 136/85 06/16/25 08:48 Pulse Oximetry 100 06/16/25 08:48 Oxygen Delivery Room Air 06/16/25 08:48 Medical Decision Making MDM Narrative Medical decision making narrative: Patient presents the emergency department after a head injury 2 days ago with headache, nausea, dizziness. Her vitals are stable. CT brain without acute findings. She is neurologically intact. Additionally endorsing a rash on her abdomen which is itchy. She does not have any concern for STDs, does not want to be tested or treated. Rash looks suspicious for folliculitis. Will be started on topical mupirocin as this is been persistent/irritative for the last couple of weeks. She was given warnings to return to the ER Differential Diagnosis Differential Diagnosis: Concussion, subdural hemorrhage, folliculitis, candidiasis Vital Signs Vital Signs: Vital Signs Temperature 98.2 F 06/16/25 08:48 Pulse Rate 75 06/16/25 08:48 Respiratory Rate 18 06/16/25 08:48 Blood Pressure 136/85 06/16/25 08:48 Pulse Oximetry 100 06/16/25 08:48 Oxygen Delivery Room Air 06/16/25 08:48 Temperature 98.2 F 06/16/25 08:48 Pulse Rate 75 06/16/25 08:48 Respiratory Rate 18 06/16/25 08:48 Blood Pressure 136/85 06/16/25 08:48 Pulse Oximetry 100 06/16/25 08:48 Oxygen Delivery Room Air 06/16/25 08:48 Imaging Data Radiologist's impression: ITS Impressions Head CT 06/16/25 09:23 IMPRESSION: 1. No acute intracranial hemorrhage. No mass effect. Critical Care Time Critical Care Time Critical Care Time: No Discharge Plan Discharge Clinical Impression: Head injury, Rash Patient Disposition: Home Condition: Stable Instructions: Antibiotic Form, Head Injury (ED), Acute Rash (ED) Additional Instructions: Return to the emergency department if you experience fever, chest pain, shortness of breath, abdominal pain with nausea and vomiting, weakness, numbness, or any other symptoms that are concerning to you. Rest. Remain well hydrated. Tylenol or ibuprofen as needed for pain. Apply antibiotic ointment as prescribed Follow up with primary care doctor Patient Language: Belarusian Prescriptions: New mupirocin [Centany] 2 % ointment 1 applic topical TID 7 Days Qty: 22 0RF Follow-up/Referrals: UNKNOWN,DOCTOR [Primary Care Provider]
[2025-06-16 10:49] VITALS: BP 142/90; PULSE 79; RESP 18; O2SAT 99
== END 2025-06-16 10:51 | disposition home or self-care (01) ==
PROVIDERS: Emergency Provider Physician Assistant
DX: S09.90XA Unspecified injury of head, initial encounter (principal); R21 Rash and other nonspecific skin eruption; X58.XXXA Exposure to other specified factors, initial encounter
CPT/HCPCS: 70450; 96361; 96374; 99284; J2405; J7030

== ENCOUNTER 2025-06-22 08:26 | Emergency (ER) | payer OTHER, MEDICAID, SELFPAY ==
--- OUTSIDE RECORDS SUMMARY | 2022-07-21 04:24 | XMS_ITS | Continuity of Care Document ---
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 Name Role Phone Briana Siegel MD Unavailable Unavailable Allergies, Adverse Reactions, Alerts Substance Reaction Status Criticality POTASSIUM CLAVULANATE abdominal pain(mild) Active No Information AMOXICILLIN TRIHYDRATE abdominal pain(mild) Active No Information Medications Medication Instructions Dosage Effective Dates (start - stop) Status Comments ProAir HFA 90 mcg/actuation aerosol inhaler inhale 2 puffs by Oral route 4 times every day prn 2 puffs - Active hold until patient calls to fill EpiPen 0.3 mg/0.3 mL injection, auto-injector take 1 by Subcutaneous route once NEEDED - Active OK FOR GENERIC Latuda 120 mg tablet take 1 tablet by oral route every day with food (at least 350 calories) 120 MG - Active Dosage increase per psych 08/19/21 prazosin 2 mg capsule take 2 capsule by oral route every day 4 MG - Active Zyrtec 10 mg tablet take 1 tablet by oral route every day 10 MG - Active iron 325 mg (65 mg iron) tablet take 1 tablet by oral route every day 325 MG - Active B12 5,000 mcg-100 mcg sublingual lozenge - Active metformin 1,000 mg tablet TAKE 1 TABLET TWICE A DAY WITH MORNING AND EVENING MEALS - Active Please dispense day supply. Pepcid 20 mg tablet take 1 tablet by oral route 2 times every day 20 MG - Active Advair Diskus 250 mcg-50 mcg/dose powder for inhalation inhale 1 puff by inhalation route 2 times every day approximately 12 hours apart at the same times each day 1.00 puff - Active gabapentin 300 mg capsule take 1 capsule by oral route 2 times every day 300 MG - Active This is a dosage change to 300mg bid Lamictal 200 mg tablet take 1 tablet by oral route 2 times every day 200 MG - Active Ubrelvy 100 mg tablet take 1 tablet by oral route once may repeat dose once after 2 hours if needed, not to exceed 200 mg in24 hours 100 MG - Active Mirena 20 mcg/24 hours (6 yrs) 52 mg intrauterine device insert 1 by Intrauterine route 1 - Active Klonopin 2 mg tablet take 1 tablet by oral route 3 times every day 2 MG - Active zaleplon 10 mg capsule take 2 capsule by oral route every day at bedtime 20 MG - Active desvenlafaxine ER 100 mg tablet,extended release 24 hr take 1 tablet by oral route every day 100 MG - Active nortriptyline 50 mg capsule take 1 Capsule by oral route every bedtime 50 MG - Active Procedures Procedure Date Chest Xray, 2 Views FORM CHARGE OFFICE NQRSQ-[id number]-WLHDLQUP BODY MASS INDEX DOCD SYST BP LT 130 MM HG DIAST BP < 80 MM HG Pt inelig neg scrn depres PREVENTATIVE-EST: 18-39 BODY MASS INDEX DOCD SYST BP LT 130 MM HG DIAST BP 80-89 MM HG SPECIAL SERVICE OR FORM CHARGE DSCHRG MED/CURRENT MED MERGE X-RAY FOOT COMPLETE OFFICE CUCUR-CDV-ICAABOOU BODY MASS INDEX DOCD SYST BP LT 130 MM HG DIAST BP < 80 MM HG IMMUN ADMIN (INC PERCUTANEOUS) SINGLE, F IRST INJ (Trumenba) Meningococcal Recombinant, Li poprotein Brief Emotional/Behavioral A ssessment, With Scoring/Doct, Per Stndrd Instrument Clin depression screen doc PREVENTATIVE-EST: 18- OFFICE KUQZA-XYB-ZNVX BODY MASS INDEX DOCD SYST BP LT 130 MM HG DIAST BP 80-89 MM HG IMMUN ADMIN (INC PERCUTANEOUS) SINGLE, F IRST INJ TDAP INTRAMUSCULAR USE OFFICE XMOTA-KYB-ZIDQIRVY BODY MASS INDEX DOCD SYST BP LT 130 MM HG DIAST BP 80-89 MM HG Chest Xray, 2 Views Clin depression screen doc CBC, INC PLATELETS AND DIFFERENTIAL COMPREHEN METABOLIC PANEL CMP HEMOGLOBIN A1C HGA1C, GLYCO ROUTINE VENIPUNCTURE OFFICE EIQLE-AAR-QNNZVAIA BODY MASS INDEX DOCD SYST BP LT 130 MM HG DIAST BP < 80 MM HG OFFICE NGJPD-YOX-EUIYHSTW GENERAL HEALTH PANEL HEMOGLOBIN A1C HGA1C, GLYCO LIPID PANEL ROUTINE VENIPUNCTURE PREVENTATIVE-EST: 18-39 BODY MASS INDEX DOCD SYST BP LT 130 MM HG DIAST BP < 80 MM HG OFFICE OETTJ-HNN-ZRDLXAKY BODY MASS INDEX DOCD SYST BP LT 130 MM HG DIAST BP >= 90 MM HG Chest Xray, 2 Views Kept Appointment No Charge Encounter Feb Transitional Care- First 7 Days Of Disch arge Pt inelig neg scrn depres OFFICE JCSYV-BBW-THMVAODL GIJIEJ-QMEEULFHC-5GC HOUR BODY MASS INDEX DOCD SYST BP LT 130 MM HG DIAST BP 80-89 MM HG EAR WASH, REMOVAL IMPACTED CERUMEN Requi ring Instrumentation GENERAL HEALTH PANEL INFLUENZA, RAPID INFLUENZA B, RAPID - OFFICE LAB 020 ROUTINE VENIPUNCTURE Chest Xray, 3 Views Kept Appointment No Charge Encounter Mar PREVENTATIVE-EST: 18-39 BODY MASS INDEX DOCD SYST BP LT 130 MM HG DIAST BP < 80 MM HG SKIN TEST, PPD OFFICE FBGLZ-TIF-GQUJUAOF BODY MASS INDEX DOCD SYST BP LT 130 MM HG DIAST BP 80-89 MM HG Advance Directives Directive Yes / No Effective Date File Name Life Support Not Answered N/A N/A Intubation Not Answered N/A N/A Antibiotics Not Answered N/A N/A IV Fluid Support Not Answered N/A N/A Tube Feed Not Answered N/A N/A Other Directive N/A N/A WARNING:The information contained in this section is historical and is provided for information only and does not constitute a legal document or any assurance that the information is still accurate. Please verify the information with the coronado of the legal document before using it for clinical purposes. Encounters Encounter Description Practice Location Reason(s) For Visit Diagnoses Date Provider Providers Copied on Encounter [facility], [address], [place], [place], [address] , [place] tel:[phone] Anisha STARKS No Information 2 Christal Johnson. [address], [address], [place], [place], [address], . tel:[phone] [facility], [address], [place], [place], [address] , tel: [phone] [facility] Encounter for screening for respiratory tuberculosis 2 Christal Johnson. [address], [address] , [place], [address] [place] [address], . tel:[phone] Referring Provider: Briana Siegel, [address], [place], [address] [place] [address]. tel:[phone] [facility], [address], [place], [place], [address] , tel:[phone] Anisha IM No Information 2 Christal Johnson. [address], [address] , [place], [address] [place] [address], . tel:[phone] Referring Provider: Briana Siegel, [address], [place], [address] [place] [address]. tel:[phone] [facility], [address], [place], [address] [place] [address] , tel:[phone] Anisha IM Screening for tuberculosis 2 Christal Johnson. [address], [address] , [place], [address] [place] [address], . tel:[phone] [facility], [address], [place], [place], [address] , tel: [phone] Anisha IM No Information 2 Christal Johnson. [address], [address] , [place], [address] [place] [address], . tel:[phone] OFFICE LIRXM-CFY-RHK RONEN [facility], [address], [place], [address] , tel: [phone] [facility] Obesity (chief complaint). ..continued (chief complaint) Obesity (BMI 30-39.9)Body mass index [BMI] 36.0-36.9, adult 2 Christal Johnson. [address], [address], [place], [place], [address], . tel:[phone] Referring Provider: [address], [place], [address]. tel:[phone] [facility], [address], [place], [place], [address] , tel:[phone] [facility] No Information 2 Yina Kerns. [address] [facility] [address], [place], [facility], . tel:[phone] [facility], [address], [place], [place], [address] , tel:[phone] [facility] IM No Information 2 Christal Johnson. [address], [address], [place], [address] [place] [address], . tel:[phone] PREVENTATIVE- EST: 18-39 [facility], [address], [place], [place], [address] , tel:[phone] [facility] preventive exam (chief complaint) Body mass index [BMI] 36.0-36.9, adultPhysical exam 2 Christal Johnson. [address], [address], [place], [place], [address], . tel:[phone] Referring Provider: [address], [place], [address]. tel:[phone] [facility], [address], [place], [place], [address] , tel: [phone] [facility] IM No Information 2 Christal Johnson. [address], [address], [place], [address] [place] [address], . tel:[phone] [facility], [address], [place], [place], [address] , tel: [phone] Anisha IM No Information 1 Christal Johnson. [address], [address], [place], [address] [place] [address], . tel:[phone] Referring Provider: Briana Siegel, [address], [place], [address] [place] [address]. tel:[phone] [facility], [address], [place], [place], [address] , tel: [phone] Anisha IM No Information 1 Yolie Fenton. [address], [address], [place], [address] [place] [address], . tel:[phone] Referring Provider: Briana Siegel, [address], [place], [address] [place] [address]. tel:[phone] [facility], [address], [place], [address] [place] [address] , tel: [phone] [facility] Unspecified injury of left foot, subsequent encounter 1 Yolie Fenton. [facility] [address], [place], [address] [place] [address], . tel:[phone] Referring Provider: Jossy Urbano, [facility] [address], [place], [address] [place] [address]. [phone] OFFICE VCTFQ-UGH-FSH RONEN [facility], [address], [place], [place], [address] , tel: [phone] Anisha IM many concerns, return to work note (chief complaint) Body mass index [BMI] 33.0-33.9, adultInjury of left foot, subsequent encounter 1 Yolie Fenton. [address], [address], [place], [address] [place] [address], . tel:[phone] Referring Provider: Briana Siegel, [address], [place], [address]. tel:[phone] [facility], [address], [place], [place], [address] , tel: [phone] Anisha STARKS No Information 1 Christal Johnson. [address], [address], [place], [place], [address], . tel:[phone] Referring Provider: Briana Siegel, [address], [place], [address]. tel:[phone] PREVENTATIVE- EST: 18-39 [facility], [address], [place], [place], [address] , tel: [phone] Anisha IM physical (chief complaint) Encntr for general adult medical exam w/o abnormal findingsNeed for hepatitis C screening testChronic insomniaAnxie ty and depressionMil d intermittent asthma with allergic rhinitis without complicationH istory of positive PPDGastroesop hageal reflux disease, unspecified whether esophagitis presentPain of multiple sitesElevated blood pressure reading in office without diagnosis of hypertensionD ysgeusiaBilat eral impacted cerumenEncoun ter for screening for depressionBod y mass index (BMI) 33.0-33.9, adultEncounte r for exam of blood pressure w/o abnormal findingsEncou nter for immunization 1 Yolie Fenton. [address], [address], [place], [place], [address], . tel:[phone] Referring Provider: Briana Siegel, [address], [place], [address]. tel:[phone] OFFICE YDRLT-HGI-QBF RONEN [facility], [address], [place], [address] , [place] tel: [phone] Anisha IM migraines (chief complaint) Body mass index (BMI) 35.0-35.9, adultStatus migrainosusPa in of multiple sitesAnxiety and depressionMaj or depressive disorder, single episode, unspecifiedCh ronic insomniaBilat eral impacted cerumen 1 Yolie Fenton. [address], [address], [place], [place], [address], [place]. tel:[phone] Referring Provider: Briana Siegel, [address], [place], [address]. tel:[phone] [facility], [address], [place], [address] , [place] tel: [phone] Anisha IM Pulmonary infiltrates on CXR 1 Shonna Cedillo. [address], [address], [place], [place], [address], [place]. tel:[phone] [facility], [address], [place], [address] , [place] tel: [phone] [facility] Nonspecific reaction to skin test w/o active tuberculosis 1 Christal Johnson. [address], [address], [place], [place], [address], [place]. tel:[phone] Referring Provider: Briana Siegel, [address], [place], [address]. tel:[phone] [facility], [address], [place], [address] , tel: [phone] Anisha IM Nonspecific reaction to tuberculin skin test without active tuberculosis 1 Shonna Cedillo. [address], [address], [place], [place], [address], [place]. tel:[phone] OFFICE LXIYB-UJV-BVD RONEN [facility], [address], [place], [place], [address] , tel: [phone] Anisha IM med check (chief complaint) Mild intermittent asthma, unspecified whether complicatedSe heidi episode of recurrent major depressive disorder, without psychotic featuresObesi ty (BMI 30-39.9) 1 Shonna Cedillo. [address], [address], [place], [address], [place]. tel:[phone] Referring Provider: Sauyma Ruiz, [address] [facility] [address], [place], [address]. tel:[phone] [facility], [address], [place], [place], [address] , [place] tel: [phone] [facility] Diarrhea, unspecified type Sep-2 0 Real Cheng. [address], [place], [place], [address]. tel:[phone] [facility], [address], [place], [address] , [place] tel: [phone] [facility] Diarrhea, unspecified type Sep-2 0 Shonna Cedillo. [address], [address], [place], [place], [address], [place]. tel:[phone] OFFICE SMIOZ-UZM-RQJ ANDED [facility], [address], [place], [address] , [place] tel: [phone] Danitason TEREZA Asthma (chief complaint) Mild intermittent asthma, unspecified whether complicatedGa stroesophagea l reflux disease, esophagitis presence not specifiedDiar oscar, unspecified type Sep-1 0 Shonna Cedillo. [address], [address], [place], [place], [address], [place]. tel:[phone] Referring Provider: Skylar Noble, [address], [place], [address]. tel:[phone] PREVENTATIVE- EST: 18-39 [facility], [address], [place], [place], [address] , [place] tel: [phone] [facility] Physical Exam (chief complaint) Body mass index (BMI) 40.0-44.9, adultMorbid (severe) obesity due to excess caloriesEncou nter for general adult medical examination with abnormal findingsSever e episode of recurrent major depressive disorder, without psychotic featuresPain in both lower extremitiesPa in in left leg 0202 0 Shonna Cedillo. [address], [address], [place], [address], [place]. tel:[phone] Referring Provider: Skylar Noble, [address], [place], [address]. tel:[phone] OFFICE QEKRB-NGG-DMQ RONEN [facility], [address], [place], [address] , tel: [phone] Anisha IM Rt leg pain (chief complaint) Elevated blood pressure reading without diagnosis of hypertensionA nxiety and depressionPai n of right lower extremityBody mass index (BMI) 40.0-44.9, adult 0 Yolie Fenton. [address], [address], [place], [place], [address], . tel:[phone] Referring Provider: Skylar Noble, [address], [place], [address]. tel:[phone] [facility], [address], [place], [place], [address] , tel: [phone] [facility] Nonspecific reaction to skin test w/o active tuberculosis Feb-0 0 Real Cheng. [address], [address], [place], [place], [address]. tel:[phone] Referring Provider: Skylar Noble, [address], [place], [address]. tel:[phone] [facility], [address], [place], [place], [address] , tel: [phone] Anisha IM Positive TB test Feb-0 0 Real Cheng. [address], [address], [place], [place], [address]. tel:[phone] Transitional Care- First 7 Days Of Discharge [facility], [address], [place], [place], [address] , tel: [phone] Anisha STARKS Telehealth hospital follow up (chief complaint) Hospital discharge follow-upSeve re episode of recurrent major depressive disorder, without psychotic features 0 Real Cheng. [address], [address], [place], [place], [address]. tel:[phone] Referring Provider: Skylar Noble, [address], [place], [address]. tel:[phone] OFFICE XHSVM-FON-OGO RONEN [facility], [address], [place], [place], [address] , tel: [phone] Anisha STARKS many concerns (chief complaint) Weight gainFebrile illnessFreque nt headachesAlle rgic rhinitis, unspecified seasonality, unspecified triggerAnxiet y and depressionPse udoseizuresMi ld intermittent asthma, unspecified whether complicatedGa stroesophagea l reflux disease, esophagitis presence not specifiedBila teral impacted cerumenAtrial tachycardiaBo dy mass index (BMI) 38.0-38.9, adult 0 Yolie Fenton. [address], [address], [place], [place], [address], . tel:[phone] Referring Provider: Skylar Noble, [address], [place], [address]. tel:[phone] [facility], [address], [place], [address] , tel: [phone] Anisha IM Nonspecific reaction to skin test w/o active tuberculosis 9 Real Cheng. [address], [address], [place], [place], [address]. tel:[phone] [facility], [address], [place], [address] , tel: [phone] [facility] Nonspecific reaction to skin test w/o active tuberculosis 3 9 Rela Cheng. [address], [address], [place], [place], [address]. tel:[phone] Referring Provider: Skylar Noble, [address], [place], [address]. tel:[phone] [facility], [address], [place], [address] , tel: [phone] Danitason IM Positive PPD Real Cheng. [address], [address], [place], [place], [address]. tel:[phone] Referring Provider: Skylar Noble, [address] [facility] [address], [place], [address]. tel:[phone] PREVENTATIVE- EST: 18-39 [facility], [address], [place], [place], [address] , tel: [phone] [facility] Physical exam (chief complaint) Body mass index (BMI) 36.0-36.9, adultEncounte r for general adult medical examination with abnormal findingsConve rsion disorder Shonna Cedillo. [address], [address], [place], [place], [address], . tel:[phone] Referring Provider: Skylar Noble, [address] [facility] [address], [place], [address]. tel:[phone] OFFICE GDRKQ-RCN-CQW RONEN [facility], [address], [place], [address] , tel: [phone] Tesson IM rash fingers/sto mach (chief complaint) Dyshidrotic eczemaEczema, unspecified type Real Cheng. [address], [address], [place], [place], [address]. tel:[phone] Referring Provider: Skylar Noble, [address], [place], [address]. tel:[phone] [facility], [address], [place], [place], [address] , tel: [phone] Tesson IM Cold symptoms (chief complaint) Body mass index (BMI) 37.0-37.9, adultAcute non-recurrent frontal sinusitisBMI pediatric, less than 5th percentile for age 9 Shonna Cedillo. [address], [address], [place], [place], [address], . tel:[phone] Referring Provider: Skylar Noble, [address], [place], [address]. tel:[phone] [facility], [address], [place], [place], [address] , tel: [phone] Anisha IM Seizures (chief complaint) Seizure-like activityEleva lyndon blood pressure reading without diagnosis of hypertension 9 Real Cheng. [address], [address], [place], [place], [address]. tel:[phone] Referring Provider: Skylar Noble, [address], [place], [address]. tel:[phone] [facility], [address], [place], [place], [address] , tel: [phone] Danitason IM Body mass index (BMI) 38.0-38.9, adultSyncope, unspecified syncope typeBMI pediatric, less than 5th percentile for age 8 Shonna Cedillo. [address], [address], [place], [place], [address], . tel:[phone] Referring Provider: Skylar Noble, [address], [place], [address]. tel:[phone] [facility], [address], [place], [place], [address] , tel: [phone] Danitason IM Abnormal uterine bleedingBruis ingMigraine without status migrainosus, not intractable, unspecified migraine typeGAD (generalized anxiety disorder)Atop ic dermatitis, unspecified typeHistory of anemiaHeart murmurCat allergies 7 Yolie Fenton. [address], [address], [place], [place], [address], [place]. tel:[phone] Referring Provider: Skylar Noble, [address], [place], [address]. tel:[phone] [facility], [address], [place], [address] , [place] tel: [phone] Tess[facility] IM Encntr for general adult medical exam w/o abnormal findingsAbnor mal uterine bleedingGAD (generalized anxiety disorder)Mild intermittent asthma without complicationT ree nut allergy 7 Real Cheng. [address], [address], [place], [place], [address]. tel:[phone] Referring Provider: Skylar Noble, [address], [place], [address]. tel:[phone] [facility], [address], [place], [address] , [place] tel: [phone] [facility] Panic disorder 6 Michael Linares. [address], [address], [place], [address], [place]. tel:[phone] Referring Provider: Vijay Gibson, [address], [place], [address]. tel:[phone] [facility], [address], [place], [place], [address] , [place] tel: [phone] [facility] Physical examEncounter for immunization 6 Sergio Cloud. [address], [address], [place], [address], [place]. tel:[phone] Referring Provider: Vijay Gibson, [address], [place], [address]. tel:[phone] [facility], [address], [place], [place], [address] , tel: [phone] [facility] Screening 6 Michael Linares. [address], [address], [place], [place], [address], . tel:[phone] Referring Provider: Vijay Gibson, [address], [place], [address] [place] [address]. tel:[phone] [facility], [address], [place], [place], [address] , tel:[phone] [facility] Jock itchTinea corporisVagin al yeast infection 6 Sergio Cloud. [address], [place], [place], [address], . tel:[phone] Referring Provider: Vijay Gibson, [facility] [address], [place], [address] [place] [address]. tel:[phone] [facility], [address], [place], [address] , tel:[phone] [facility] Scabies 6 Sergio Cloud. [address], [place], [place], [address], . tel:[phone] Referring Provider: Vijay Gibson, [facility] [address], [place], [address]. tel:[phone] [facility], [address], [place], [place], [address] , tel: [phone] Tesson IM Routine medical examKnee painAsthma 5 Michael Linares. [facility] [address], [place], [place], [id number], . tel: [phone] Referring Provider: Vijay Gibson, [address], [place], [address]. tel:[phone] Family History Family Member Type Diagnosis Age At Onset Father Problem (finding) raised blood lipids Mother Problem (finding) hypertension Father Problem (finding) coronary arterioscleros is Mother Problem (finding) migraine Mother Problem (finding) osteoarthritis Mother Problem (finding) asthma Immunizations Vaccine Date Status Comments Moderna (Low Dose) COVID19 Vaccine, 0.25mL per dose, booster dose administered Source: Other Provid er Fluzone Quad, split virus, 0.5mL dosage administered Source: Other Provid er meningococcal B, recombinant , 2 or 3 dose schedule administered Source: New Immuniza tion Record Tdap administered Source: New Imm unization Record Moderna COVID19 Vaccine, 0.5 mL per dose, 2 doses, administered 28 days apart administered Source: Other Provid er Moderna COVID19 Vaccine, 0.5 mL per dose, 2 doses, administered 28 days apart administered Source: Other Provid er Fluzone Quad, split virus, 0.5mL dosage administered Note: [facility] ; So urce: Other Registry Fluzone Quad, split virus, 0.5mL dosage administered Note: [facility] ; So urce: Other Provider Fluzone Quad, split virus, 0.5mL dosage administered Source: Other Provid er meningococcal B, recombinant , 3 dose schedule administered Source: New Immuniza tion Record meningococcal MCV4P administered Source: New Immunization Record Varicella administered Source: New Imm unization Record Influenza, injectable, quadrivalent, preservative free, 6-35 mos administered Source: Other Provid er Tdap administered Source: Other P rovider measles, mumps and rubella virus vaccine administered Source: Other Provid er Varicella administered Source: Other P rovider MMR administered Source: Other P rovider hepatitis B vaccine, pediatr ic or pediatric/adolescent dosage administered Source: O ther Provider hepatitis B vaccine, pediatr ic or pediatric/adolescent dosage administered Source: O ther Provider Hep B, adolescent or pediatr ic, 3 dose administered Source: Other Provid er meningococcal B, recombinant , 2 or 3 dose schedule pending Source: New Immuniza tion Record Payers Payer name Insurance type Covered libertarian ID Authoriza tion(s) BCBS ACCESS CHOICE BL [id number] BCBS ACCESS CHOICE BL [id number] BC[employer] ACCESS CHOICE BL [id number] [employer] INACTIVE OUT OF STATE BL [id number] [employer] INACTIVE OUT OF STATE BL [id number] Social History Type Description Quantity Date Captured Comments Alcohol Use Details Unknown Caffeine Use Details Unknown Tobacco Use Status No Information Smoking Status No Information Sex Female Sexual Orientation Straight or heterosexual Gender Identity Female Chief Complaint And Reason For Visit No Information Reason For Referral Reason For Referral No Information Plan Of Treatment Date Type Action Status Goal Dietary manageme nt education, guidance, and counseling completed Goal Dietary manageme nt education, guidance, and counseling completed Goal Dietary manageme nt education, guidance, and counseling completed Goal Dietary manageme nt education, guidance, and counseling completed Goal Dietary manageme nt education, guidance, and counseling completed Goal Dietary manageme nt education, guidance, and counseling completed Goal Dietary manageme nt education, guidance, and counseling completed Goal Dietary manageme nt education, guidance, and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 depressive disorder, without psychotic features Encouraged her to le t her parents hold her meds. Discussed need to reach out for suicidal plans. Encouraged continued follow up with psychiatrist and counseling, daily outdoor physical activity, activities to distract self and give her a sense of purpose. Tried my best to encourage her. RTC 3 months and prn. Related to Hospital discharge follow-up Disease process Your heart is beatin g fast today and I suspect related to your symptoms including anxiety and frequent use of albuterol. Will follow over time and check labs as detailed above. Related to Atrial tachycardia I cannot prescribe o meprazole to you because of the potential interaction with your high dose citalopram. When combined, these meds can cause a deadly heart rhythm condition (prolonged QT syndrome). Tagamet can also have an interaction. Will prescribe pepcid 20mg daily. OK to add tums as needed. Related to Gastroesophageal reflux disease, esophagitis presence not specified Your ears were irrig ated today to clear the cerumen impaction. Related to Bilateral impacted cerumen Add breo as detailed above and try to use your albuterol only as needed. Related to Mild intermittent asthma, unspecified whether complicated You have stated this is controlled but have also had a recent ER visit for this concern. Continue to follow up with your psychiatrist and would advise to follow up with your neurologist as well. 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 Continue to follow all care advice from your psychiatrist. if you have any thoughts of harm to yourself or others then go to the ER. Related to Anxiety and depression Your allergies may a lso be contributing to your symptoms. Try taking a stronger anti-histamine such as xyxal daily instead of claritin. You have not found flonase to be helpful in the past. Discussed trial of ipratropium spray. Will add breo 100mcg once daily to help with your chest symptoms. It can be increased to a higher dosage if needed. i would not recommend prednisone pills at this time. Related to Allergic rhinitis, unspecified seasonality, unspecified trigger It is common to have frequent headaches when your body is feeling poorly and you have head injury. I would recommend you follow up with your neurologist for this concern. OK to take tylenol as needed. Avoid ibuprofen and anti-inflammatory meds since these can cause stomach acid to be worse. Related to Frequent headaches Your Influenza testi ng is negative today and you have had a flu shot so likely not influenza at this time. I can check your white blood cells in lab testing today. Try taking mucinex as needed for your cold symptoms. Please drink lots of fluids. Related to Febrile illness I can check your thy roid lab testing today but the most likely cause for your weight gain is the meds you are taking. Work on diet and exercise to improve. Will check labs today for cbc, cmp, and TSH. Related to Weight gain Disease process Dietary management e ducation, guidance, and counseling Related to Body mass index (BMI) 38.0-38.9, adult Work on better diet and exercise to achieve weight loss goals. Desired BMI 18-25. Current BMI 36. Related to Body mass index (BMI) 36.0-36.9, adult Focus on health main tenance and disease prevention. Advised good diet and exercise. PPD placed today, will return on 03/23/19 for reading. Related to Encounter for general adult medical examination with abnormal findings Continue with your psychiatrist. 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 Related to Dyshidrotic eczema Rx TAC 0.1% cream bi d and emollients as above.Declined to write note for emotional support animal. RTC as previously scheduled and prn. Related to Eczema, unspecified type Disease process Start Doxycycline 10 0 mg twice daily for ten days. Increase fluids and rest. Start hot, steamy showers. Use humidifier in bedroom at night. Use nasal saline rinses as well. Tylenol, ibuprofen, or Aleve for aches and pains. Mucinex DM will help with congestion and cough. Call if no improvement. Related to Acute non-recurrent frontal sinusitis Disease process Dietary management e ducation, guidance, and counseling Related to Body mass index (BMI) 37.0-37.9, adult She will follow up w ith new neurologist as scheduled. Discussed staying open to the possibility that these could be pseudoseizures and that it doesn't mean she's faking. Needs to work at finding a psychiatrist and a counselor she likes and can stay with [facility] either way. Happy to refer her if needed; she plans to ask one of the counselors for a new psychiatrist and stick with one of the two counselors. Will request notes from Dr. Jones. Related to Seizure-like activity She reports typicall y 105/70 when seen in the ER. She is seen frequently so okay to watch.RTC as previously scheduled and prn. Related to Elevated blood pressure reading without diagnosis of hypertension Disease process Assessments Type Assessment Date No Information Patient Care Teams Name Effective Dates (start - stop) Status Members No Information
--- OUTSIDE RECORDS SUMMARY | 2024-05-20 13:58 | XMS_ITS | Continuity of Care Document ---
Author Organization [facility] Address [address] [place] [address] Phone Care Team Providers Care Buggy Ladle Tender Name Role Phone Ruddy Mera MD Unavailable Unavailable Advance Directives Directive Yes / No Effective Date File Name No Information Encounters Encounter Description Practice Location Reason(s) For Visit Diagnoses Date Provider Providers Copied on Encounter [facility], [address], [place], [place], [id number], [place] tel:[phone] [facility] No Information Samaria Fox. [address], [address] [facility] [address], [place], [place], [id number] , [place]. tel: [phone] Family History Family Member Type Diagnosis Age [...]
--- NOTE | ~2025-06-22 | XR_ITS ---
EXAMINATION: XR chest 2V, 06/22/2025 12:00 CDT HISTORY: Sob, SHARP CHEST PAIN, HIGH BLOOD PRESSURE COMPARISON: No comparisons available. Technique: 2 views obtained. Findings: The lungs are clear, no effusion. No pneumothorax. Heart is normal size. Mediastinal and hilar contours are within normal limits. Bony thorax no acute abnormality. Impression: No acute cardiopulmonary abnormality. Reviewed, dictated and finalized at location P. Impression: No acute cardiopulmonary abnormality.
--- NOTE | ~2025-06-22 | CT_ITS ---
EXAMINATION: CT brain wo con COMPARISON: None HISTORY: seizure, AMS TECHNIQUE: Axial images were obtained through the brain without IV contrast. CT scan performed using dose optimization techniques including the following automated exposure control; adjustment of mA and/or kV; use of iterative reconstruction technique. Automatic exposure control was used to reduce radiation dose. Permanent radiation dose record is archived to PACS. FINDINGS: No acute infarct or parenchymal hemorrhage. No abnormal mass or mass effect. No midline shift. No extra-axial fluid collections. No hydrocephalus. . Mastoid air cells unremarkable. Sinuses and orbits unremarkable. No acute fracture. No significant facial or scalp soft tissue swelling evident. No radiopaque foreign body is seen. Impression: 1.No acute intracranial abnormality. Reviewed, dictated and finalized at location P. Impression: 1.No acute intracranial abnormality.
--- NOTE | ~2025-06-22 | CT_ITS ---
EXAMINATION: CT cervical spine wo con COMPARISON: None HISTORY: trauma TECHNIQUE: Axial images were obtained through the spine without IV contrast. Coronal, sagittal reconstruction images were obtained from the axial views. CT scan performed using dose optimization techniques including the following automated exposure control; adjustment of mA and/or kV; use of iterative reconstruction technique. Automatic exposure control was used to reduce radiation dose. Permanent radiation dose record is archived to PACS. FINDINGS: The vertebral heights are intact. No fracture or subluxation. Moderate loss of disc height at C5-6 with mild canal and foraminal stenosis. Soft tissues unremarkable. Impression: No acute abnormality. Reviewed, dictated and finalized at location P. Impression: No acute abnormality.
[2025-06-22 08:26] VITALS: BP 150/106; PULSE 78; RESP 18; TEMP 36.6; O2SAT 100
[2025-06-22 08:47] VITALS: PULSE 80; O2SAT 99
[2025-06-22 08:59] LABS: Hematocrit 40.9 % (37.0-47.0); Hemoglobin 13.8 g/dL (12.0-15.0); Immature Granulocyte Percent A 0.3 % (0-0.5); Lymphocytes Absolute Auto 2.14 K/mm3 (0.9-3.2); Mean Corpuscular HGB Conc 33.7 g/dl (32-36); Mean Corpuscular Hemoglobin 29.4 pg (26-34); Mean Corpuscular Volume 87.2 fl (80-100); Nucleated Red Blood Cells Absolute Auto 0.000 K/mm3 (0.0-0.012); Nucleated Red Blood Cells Perc 0.0 % (0.0-0.2); Platelet Count Result 243 k/mm3 (150-375); Red Blood Count 4.69 M/mm3 (4.2-5.4); White Blood Count 9.6 K/mm3 (4.5-10.0)
--- NOTE | 2025-06-22 09:04 | ED.GENADULT ---
HPI - General Adult General Chief complaint: Altered Mental Status Stated complaint: altered LOC Time Seen by Provider: 06/22/25 08:31 History of Present Illness HPI narrative: 25-year-old female history of pseudo-seizure presents to the emergency department for evaluation for altered mental status. Patient states that this morning she was having some anxiety and she did take her Ativan. 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 Patient reports she was having difficulty finding her class. Upon arrival to the emergency department by EMS patient is more alert and appropriate. Patient was concerned that perhaps she was having a stroke because 1 her father had a stroke a few months ago he was having similar symptoms. Patient denies any focal numbness or weakness. Patient also complains of neck pain secondary to a head injury that happened a few weeks ago. Related Data Home Medications ?Medication ?Instructions ?Recorded ?Confirmed ?Last Taken ?Type benztropine 1 mg tablet 1 mg PO BID 06/22/25 06/22/25 06/22/25 History cariprazine 6 mg capsule (Vraylar) 6 mg PO DAILY 06/22/25 06/22/25 06/22/25 History famotidine 20 mg tablet (Pepcid) 20 mg PO BID 06/22/25 06/22/25 06/22/25 History fluoxetine 20 mg capsule 20 mg PO DAILY 06/22/25 06/22/25 06/22/25 History fluoxetine 40 mg capsule 40 mg PO DAILY 06/22/25 06/22/25 06/22/25 History lorazepam 2 mg tablet 2 mg PO TID 06/22/25 06/22/25 06/22/25 History methylphenidate HCl 18 mg 18 mg PO ONCE 06/22/25 06/22/25 06/22/25 History tablet,extended release 24 hr (Concerta) methylphenidate HCl 5 mg tablet 5 mg PO BID 06/22/25 06/22/25 06/22/25 History (Ritalin) thiamine HCl (vitamin B1) 250 mg 250 mg PO DAILY 06/22/25 06/22/25 06/22/25 History tablet (Vitamin B-1) trazodone 100 mg tablet 300 mg PO HS 06/22/25 06/22/25 06/21/25 History trazodone 300 mg tablet 300 mg PO HS 06/22/25 06/22/25 06/21/25 History Allergies Allergy/AdvReac Type Severity Reaction Status Date / Time amoxicillin Allergy Severe Anaphylaxis Verified 06/22/25 08:50 Review of Systems Review of Systems: All systems reviewed & are unremarkable except as noted in HPI and below PMFSH Past Medical History Medical History (Updated 06/22/25 @ 12:37 by Alex Rouse MD) Anxiety GERD (gastroesophageal reflux disease) Bipolar disorder Exam Narrative: APPEARANCE: Well appearing, no pain, no distress, well-nourished. HEAD: normocephalic, atraumatic. EYES: PERRLA/EOMI, conjunctivae clear. NOSE: Normal no drainage EARS:TMS clear with good light reflex. THROAT: Pharynx clear, no exudate. NECK: Supple. No adenopathy, no masses. RESPIRATORY: Airway patent, respirations nonlabored. Clear to auscultation bilaterally, no rales, rhonchi, wheezing. CARDIOVASCULAR: Regular rate and rhythm without murmurs rubs or gallops. ABDOMINAL: Soft, nontender, nondistended, normal bowel sounds MUSCULOSKELETAL: Moves all extremities. Strength/ROM intact, No edema, No calf tenderness. NEURO: Alert. Cranial nerves II through XII intact. Good gait. Good coordination SKIN: Warm, dry. Normal Color Course Vital Signs Vital signs: Vital Signs Temperature 97.9 F 06/22/25 08:26 Pulse Rate 78 06/22/25 08:26 Respiratory Rate 18 06/22/25 08:26 Blood Pressure 150/106 H 06/22/25 08:26 Pulse Oximetry 100 06/22/25 08:26 Oxygen Delivery Room Air 06/22/25 08:26 Temperature 97.9 F 06/22/25 08:26 Pulse Rate 77 06/22/25 13:00 Respiratory Rate 16 06/22/25 13:00 Blood Pressure 145/99 H 06/22/25 13:00 Pulse Oximetry 97 06/22/25 13:00 Oxygen Delivery Room Air 06/22/25 08:47 Medical Decision Making [facility] Narrative Medical decision making narrative: 25-year-old female presents emergency department for evaluation for a period of confusion. Patient did take her Ativan this morning patient does have a history of pseudoseizures. Patient is unsure if she had a pseudo-seizure. Patient is currently afebrile no leukocytosis hemoglobin of 13.8. Patient has an INR of 1.0 with no acute abnormalities on her CMP UA was negative for infection. Negative the urine drug screen and patient is negative influenza RSV COVID and for strep. Patient does complain of feeling ill and having some chest congestion and sore throat but patient's chest x-ray is negative for acute cardiopulmonary abnormality. Head CT was negative for acute intracranial abnormality. Patient was complaining of neck pain after a recent head injury last week and her cervical CT spine was negative. Patient was updated results of her workup. Symptoms may be secondary to post concussive syndrome. Patient was up to the results of workup she was comfortable plan for discharge and close follow-up. Patient was provided Tessalon Perles for cough. Patient did request a work note and school note. At time of discharge patient was working on a computer and doing her school work Differential Diagnosis Differential Diagnosis: Pseudo-seizure, seizure subdural, subarachnoid hemorrhage, anxiety, adverse drug reaction Vital Signs Vital Signs: Vital Signs Temperature 97.9 F 06/22/25 08:26 Pulse Rate 78 06/22/25 08:26 Respiratory Rate 18 06/22/25 08:26 Blood Pressure 150/106 H 06/22/25 08:26 Pulse Oximetry 100 06/22/25 08:26 Oxygen Delivery Room Air 06/22/25 08:26 Temperature 97.9 F 06/22/25 08:26 Pulse Rate 77 06/22/25 13:00 Respiratory Rate 16 06/22/25 13:00 Blood Pressure 145/99 H 06/22/25 13:00 Pulse Oximetry 97 06/22/25 13:00 Oxygen Delivery Room Air 06/22/25 08:47 Lab Data Lab results reviewed: Yes I reviewed the patient's lab results. 06/22/25 08:52 06/22/25 08:52 Labs: Lab Results 06/22/25 06/22/25 06/22/25 Range/Units 08:52 09:27 09:36 WBC 9.6 (4.5-10.0) K/mm3 RBC 4.69 (4.2-5.4) M/mm3 Hgb 13.8 (12.0-15.0) g/dL Hct 40.9 (37.0-47.0) % MCV 87.2 (80-100) fl MCH 29.4 (26-34) pg MCHC 33.7 (32-36) g/dl RDW 12.0 (11.5-14.5) % Plt Count 243 (150-375) k/mm3 MPV 9.5 (7.4-10.4) fl Immature Gran % (Auto) 0.3 (0-0.5) % Neut % (Auto) 66.0 (45.5-73.1) % Lymph % (Auto) 22.4 (18.3-44.2) % Cascade % (Auto) 6.3 (2.6-8.5) % Eos % (Auto) 4.4 (0-4.4) % Baso % (Auto) 0.6 (0.2-1.2) % Lymph # (Auto) 2.14 (0.9-3.2) K/mm3 Cascade # (Auto) 0.6 (0.1-0.6) K/mm3 Eos # (Auto) 0.4 H (0-0.3) K/mm3 Baso # (Auto) 0.1 (0.0-0.1) K/mm3 Abs Immat Gran (auto) 0.03 (0.00-0.031) K/mm3 Absolute Neuts (auto) 6.3 (1.3-6.7) K/mm3 Absolute Nucleated RBC 0.000 (0.0-0.012) K/mm3 Nucleated RBC % 0.0 (0.0-0.2) % PT 12.9 (11.1-14.7) Seconds INR 1.0 APTT 29.9 (22.3-36.8) Seconds Sodium 139 (137-145) mmol/L Potassium 4.1 (3.4-5.0) mmol/L Chloride 103 (98-107) mmol/L Carbon Dioxide 26 (22-30) mmol/L Anion Gap 10 (4-12) mmol/L BUN 13 (7-17) mg/dL Creatinine 0.55 L (0.7-1.0) mg/dL Estim Creat Clear Calc 121 ml/min Estimated GFR > 60 (59 - ) Glucose 101 (65-110) mg/dL Lactic Acid 1.3 (0.7-2.0) mmol/L Calcium 9.3 (8.4-10.2) mg/dL Total Bilirubin 0.3 (0.2-1.3) mg/dL AST 26 (14-36) U/L ALT 23 (6-35) U/L Alkaline Phosphatase 59 (38-126) U/L Total Protein 7.6 (6.3-8.2) g/dL Albumin 4.5 (3.5-5.1) g/dL Urine Color Yellow (Yellow) Urine Appearance Clear (Clear) Urine pH 8.5 (5.0-9.0) Ur Specific [place] 1.011 (1.001-1.035) Urine Protein Negative (Negative) mg/dL Urine Glucose (UA) Negative (Negative) mg/dL Urine Ketones Negative (Negative) mg/dL Ur Blood (Man) Negative (Negative) Urine Nitrate Negative (Negative) Urine Bilirubin Negative (Negative) Urine Urobilinogen 0.2 (<2.0) mg/dL Leukocyte Esterase Rfl Negative (Negative) SENAIT/UL Urine Opiates Screen Negative (Negative) Urine Methadone Screen Negative (Negative) Ur Barbiturates Screen Negative (Negative) Ur Phencyclidine Scrn Negative (Negative) Ur Amphetamine Screen Negative (Negative) U Benzodiazepines Scrn Negative (Negative) Urine Cocaine Screen Negative (Negative) U Cannabinoids Screen Negative (Negative) Influenza A (RT-PCR) Negative (Negative) Influenza B (RT-PCR) Negative (Negative) RSV (RT-PCR) Negative (Negative) SARS-CoV-2 RNA (RT-PCR) Negative (Negative) Group A Strep (PCR) Not detected (Negative) Imaging Data Radiologist's impression: Impressions Head CT 06/22/25 09:18 Impression: 1.No acute intracranial abnormality. Cervical Spine CT 06/22/25 11:41 Impression: No acute abnormality. Chest X-Ray 06/22/25 12:19 Impression: No acute cardiopulmonary abnormality. Discharge Plan Discharge Clinical Impression: Acute confusion, Acute viral syndrome, Cough Patient Disposition: Home Condition: Stable Instructions: Antibiotic Form Additional Instructions: Have close follow-up with your primary care physician. Elsa Bhatt for cough. If you have any worsening symptoms and please call or return to the emergency department. Patient Language: Dutch Prescriptions: New benzonatate 100 mg capsule 100 mg PO TID PRN (Reason: cough) Qty: 14 0RF No Action benztropine 1 mg tablet 1 mg PO BID methylphenidate HCl [Concerta] 18 mg tablet extended release 24hr 18 mg PO ONCE famotidine [Pepcid] 20 mg tablet 20 mg PO BID fluoxetine 40 mg capsule 40 mg PO DAILY lorazepam 2 mg tablet 2 mg PO TID fluoxetine 20 mg capsule 20 mg PO DAILY methylphenidate HCl [Ritalin] 5 mg tablet 5 mg PO BID trazodone 100 mg tablet 300 mg PO HS trazodone 300 mg tablet 300 mg PO HS thiamine HCl (vitamin B1) [Vitamin B-1] 250 mg tablet 250 mg PO DAILY Vraylar 6 mg capsule 6 mg PO DAILY Follow-up/Referrals: UNKNOWN,DOCTOR [Primary Care Provider] Stand Alone Forms: Work/School Release IP
[2025-06-22 09:10] LABS: INR 1.0; Partial Thromboplastin Time 29.9 Seconds (22.3-36.8); Prothrombin Time 12.9 Seconds (11.1-14.7)
[2025-06-22 09:19] LABS: Alanine Aminotransferase 23 U/L (6-35); Albumin Level 4.5 g/dL (3.5-5.1); Alkaline Phosphatase 59 U/L (38-126); Anion Gap 10 mmol/L (4-12); Aspartate Amino Transferase 26 U/L (14-36); Bilirubin,Total 0.3 mg/dL (0.2-1.3); Blood Urea Nitrogen 13 mg/dL (7-17); Calcium 9.3 mg/dL (8.4-10.2); Carbon Dioxide 26 mmol/L (22-30); Chloride 103 mmol/L (98-107); Estimated CRCL calculation 121 ml/min; Estimated Glomerular Filt Rate > 60; Glucose 101 mg/dL (65-110); Potassium 4.1 mmol/L (3.4-5.0); Sodium 139 mmol/L (137-145); Total Protein 7.6 g/dL (6.3-8.2)
--- OUTSIDE RECORDS SUMMARY | 2025-06-22 09:29 | XMS_ITS | Encounter Summary ---
Author Organization [facility] Address [address] [place] [address] Care Team Providers Care Refrigeration Mechanic Name Role Phone Kassy Jay MD Primary Care Provider [phone] Encounter Details Date Type Department Care Team (Late Contact Info) Description 10/09/2003 Outpatient Historical [facility] Childrens Respiratory and Sleep Medicine [address] [address] Gustavo Sims Social History Tobacco Use Types Packs/Day Years Used Date Smoking Tobacco: Never Assessed Comments Unknown Sex and Gender Information Value Date Recorded Sex Assigned at Not on file Legal Sex Female 4:02 AM MATERNITY NURSE Gender Identity Not on file Sexual Orientation Not on file documented as of this encounter Plan of Treatment Upcoming Encounters Date Type Department Care Team ([facility] Contact Info) Description 06/26/2025 9:00 AM CDT Video Visit [facility] Adult Psychiatry [address] [phone] Argelia Law NP [address] [place] [address] 08/08/2025 7:30 AM MATERNITY NURSE Video Visit [facility] Adult Psychiatry [address] [address] Argelia Law NP [address] [place] [address] [place] [address] 09/25/2025 8:00 AM MATERNITY NURSE Office Visit [facility] Primary Care - Kirby Herrmann [address] [place] [address] Kassy Jay MD [address] [place] [address] documented as of this encounter Visit Diagnoses Not on filedocumented in this encounter Additional Health Concerns Infection Onset Date Last Indicated Resolved Time R/O COVID-19 06/02/2021 06/03/2021 06/03/2021 7:34 PM CDT R/O COVID-19 12/22/2022 12/22/2022 12/22/2022 12:2 5 PM CDT R/O COVID-19 09/07/2023 09/07/2023 09/07/2023 9:52 PM MATERNITY NURSE documented as of this encounter Care Teams Refrigeration Mechanic Relationship Specialty Start Date End Date Kassy Jay MD [address] [place] [place] [phone] PCP - General Family Practice 12/04/22 documented as of this encounter
--- OUTSIDE RECORDS SUMMARY | 2025-06-22 09:29 | XMS_ITS | Encounter Summary ---
Author Organization [facility] Address [address] [place] [address] Care Team Providers Care Slipper Maker Name Role Phone Kassy Jay MD Primary Care Provider [phone] Encounter Details Date Type Department Care Team (Latest Contact Info) Description 04/13/2002 Outpatient Historical [facility] [place] [address] [facility] [address] [place] [address] UNS ASTHMA WOSTATUS ASTHMATICUS (Primary Dx) Social History Tobacco Use Types Packs/Day Years Used Date Smoking Tobacco: Never Assessed Comments Unknown Sex and Gender Information Value Date Recorded Sex Assigned at Not on file Legal Sex Female 4:02 AM UNDERWRITING SPECIALIST Gender Identity Not on file Sexual Orientation Not on file documented as of this encounter Plan of Treatment Upcoming Encounters Date Type Department Care Team (Late st Contact Info) Description 06/26/2025 9:00 AM CDT Video Visit [facility] Adult Psychiatry [address] [address] Argelia Law NP [address] [id number] 08/08/2025 7:30 AM UNDERWRITING SPECIALIST Video Visit [facility] Adult Psychiatry [address] [address] Argelia Law, INSULATION CUTTER AND FORMER [address] [address] [address] [address] 09/25/2025 8:00 AM UNDERWRITING SPECIALIST Office Visit [facility] Primary Care - Kirby Herrmann [address] [place] [address] [address] Kassy Jay MD [address] [place] [address] documented as of this encounter Visit Diagnoses Diagnosis Unspecified asthma(493.90)- Primary Unspecified asthma documented in this encounter Additional Health Concerns Infection Onset Date Last Indicated Resolved Time R/O COVID-19 06/02/2021 06/03/2021 06/03/2021 7:34 PM CDT R/O COVID-19 12/22/2022 12/22/2022 12/22/2022 12:2 5 PM CDT R/O COVID-19 09/07/2023 09/07/2023 09/07/2023 9:5 2 PM UNDERWRITING SPECIALIST documented as of this encounter Care Teams Slipper Maker Relationship Specialty Start Date End Date Kassy Jay MD [address] [place] [address] [address] PCP - General Family Practice 12/04/22 documented as of this encounter
--- OUTSIDE RECORDS SUMMARY | 2025-06-22 09:29 | XMS_ITS | Encounter Summary ---
Author Organization [facility] Address [address] [place] [address] Care Team Providers Care Curing Press Operator Name Role Phone Kassy Jay MD Primary Care Provider [phone] Encounter Details Date Type Department Care Team (Late Contact Info) Description 02/13/2005 Outpatient Historical [facility] Childrens Respiratory and Sleep Medicine [address] [address] Gustavo Sims Social History Tobacco Use Types Packs/Day Years Used Date Smoking Tobacco: Never Assessed Comments Unknown Sex and Gender Information Value Date Recorded Sex Assigned at Not on file Legal Sex Female 4:02 AM WRINKLE CHASER Gender Identity Not on file Sexual Orientation Not on file documented as of this encounter Plan of Treatment Upcoming Encounters Date Type Department Care Team ([facility] Contact Info) Description 06/26/2025 9:00 AM CDT Video Visit [facility] Adult Psychiatry [address] [phone] Argelia Law NP [address] [place] [address] 08/08/2025 7:30 AM WRINKLE CHASER Video Visit [facility] Adult Psychiatry [address] [address] Argelia Law NP [address] [place] [address] [place] [address] 09/25/2025 8:00 AM WRINKLE CHASER Office Visit [facility] Primary Care - Kirby Herrmann [address] [place] [address] Kassy Jay MD [address] [place] [address] [address] documented as of this encounter Visit Diagnoses Not on filedocumented in this encounter Additional Health Concerns Infection Onset Date Last Indicated Resolved Time R/O COVID-19 06/02/2021 06/03/2021 06/03/2021 7:34 PM CDT R/O COVID-19 12/22/2022 12/22/2022 12/22/2022 12:2 5 PM CDT R/O COVID-19 09/07/2023 09/07/2023 09/07/2023 9:52 PM WRINKLE CHASER documented as of this encounter Care Teams Curing Press Operator Relationship Specialty Start Date End Date Kassy Jay MD [address] [place] [place] [phone] PCP - General Family Practice 12/04/22 documented as of this encounter
--- OUTSIDE RECORDS SUMMARY | 2025-06-22 09:29 | XMS_ITS | Encounter Summary ---
Author Organization [facility] Address [address] [place] [address] Care Team Providers Care Senior Technical Support Engineer Name Role Phone Kassy Jay MD Primary Care Provider [phone] Encounter Details Date Type Department Care Team (Late Contact Info) Description 02/13/2005 Outpatient Historical [facility] Childrens Respiratory and Sleep Medicine [address] [facility] [address] [address] Gustavo Sims Social History Tobacco Use Types Packs/Day Years Used Date Smoking Tobacco: Never Assessed Comments Unknown Sex and Gender Information Value Date Recorded Sex Assigned at Not on file Legal Sex Female 4:02 AM REAL ESTATE ANALYST Gender Identity Not on file Sexual Orientation Not on file documented as of this encounter Plan of Treatment Upcoming Encounters Date Type Department Care Team ([facility] Contact Info) Description 06/26/2025 9:00 AM CDT Video Visit [facility] Adult Psychiatry [address] [phone] Argelia Law NP [address] [place] [address] 08/08/2025 7:30 AM REAL ESTATE ANALYST Video Visit [facility] Adult Psychiatry [address] [address] Argelia aLw NP [address] [place] [address] [place] [address] 09/25/2025 8:00 AM REAL ESTATE ANALYST Office Visit [facility] Primary Care - Kirby Herrmann [address] [place] [address] [address] Kassy Jay MD [address] [place] [address] [address] documented as of this encounter Visit Diagnoses Not on filedocumented in this encounter Additional Health Concerns Infection Onset Date Last Indicated Resolved Time R/O COVID-19 06/02/2021 06/03/2021 06/03/2021 7:34 PM CDT R/O COVID-19 12/22/2022 12/22/2022 12/22/2022 12:2 5 PM CDT R/O COVID-19 09/07/2023 09/07/2023 09/07/2023 9:52 PM REAL ESTATE ANALYST documented as of this encounter Care Teams Senior Technical Support Engineer Relationship Specialty Start Date End Date Kassy Jay MD [address] [place] [phone] PCP - General Family Practice 12/04/22 documented as of this encounter
--- OUTSIDE RECORDS SUMMARY | 2025-06-22 09:29 | XMS_ITS | Encounter Summary ---
Author Organization [facility] Address [address] [place] [address] Care Team Providers Care Compliance Lead Name Role Phone Kassy Jay MD Primary Care Provider [phone] Encounter Details Date Type Department Care Team (Late Contact Info) Description 05/06/2002 Outpatient Historical [facility] Childrens Respiratory and Sleep Medicine [address] [facility] [address] [address] Gustavo Sims Social History Tobacco Use Types Packs/Day Years Used Date Smoking Tobacco: Never Assessed Comments Unknown Sex and Gender Information Value Date Recorded Sex Assigned at Not on file Legal Sex Female 4:02 AM CORE MEASURES ABSTRACTOR Gender Identity Not on file Sexual Orientation Not on file documented as of this encounter Plan of Treatment Upcoming Encounters Date Type Department Care Team ([facility] Contact Info) Description 06/26/2025 9:00 AM CDT Video Visit [facility] Adult Psychiatry [address] [phone] Argelia Law NP [address] [place] [address] 08/08/2025 7:30 AM CORE MEASURES ABSTRACTOR Video Visit [facility] Adult Psychiatry [address] [address] Argelia Law NP [address] [place] [address] [place] [address] 09/25/2025 8:00 AM CORE MEASURES ABSTRACTOR Office Visit [facility] Primary Care - Kirby Herrmann [address] [place] [address] [address] Kassy Jay MD [address] [place] [address] [address] documented as of this encounter Visit Diagnoses Not on filedocumented in this encounter Additional Health Concerns Infection Onset Date Last Indicated Resolved Time R/O COVID-19 06/02/2021 06/03/2021 06/03/2021 7:34 PM CDT R/O COVID-19 12/22/2022 12/22/2022 12/22/2022 12:2 5 PM CDT R/O COVID-19 09/07/2023 09/07/2023 09/07/2023 9:52 PM CORE MEASURES ABSTRACTOR documented as of this encounter Care Teams Compliance Lead Relationship Specialty Start Date End Date Kassy Jay MD [address] [address] [place] [phone] PCP - General Family Practice 12/04/22 documented as of this encounter
--- OUTSIDE RECORDS SUMMARY | 2025-06-22 09:29 | XMS_ITS | Encounter Summary ---
Author Organization [facility] Address [address] [place] [address] Care Team Providers Care Inspector Aluminum Boat Name Role Phone Kassy Jay MD Primary Care Provider [phone] Encounter Details Date Type Department Care Team (Late Contact Info) Description 10/20/2001 Outpatient Historical [facility] [address] [place] [address] [place] [address] [place] [address] Social History Tobacco Use Types Packs/Day Years Used Date Smoking Tobacco: Never Assessed Comments Unknown Sex and Gender Information Value Date Recorded Sex Assigned at Not on file Legal Sex Female 4:02 AM INBOUND CUSTOMER SERVICE AGENT Gender Identity Not on file Sexual Orientation Not on file documented as of this encounter Plan of Treatment Upcoming Encounters Date Type Department Care Team (Late Contact Info) Description 06/26/2025 9:00 AM CDT Video Visit [facility] Adult Psychiat[facility] [place] [address] [phone] Argelia Law NP [address] [address] 08/08/2025 7:30 AM INBOUND CUSTOMER SERVICE AGENT Video Visit [facility] Adult Psychiatry [place] [address] [address] [address] [address] Argelia Law NP [address]20 [facility] [address] [address] 09/25/2025 8:00 AM INBOUND CUSTOMER SERVICE AGENT Office Visit [facility] Primary Care - Kirby Herrmann [address] [address] Kassy Jay MD [address] [place] [address] [address] documented as of this encounter Visit Diagnoses Not on filedocumented in this encounter Additional Health Concerns Infection Onset Date Last Indicated Resolved Time R/O COVID-19 06/02/2021 06/03/2021 06/03/2021 7:34 PM CDT R/O COVID-19 12/22/2022 12/22/2022 12/22/2022 12:2 5 PM CDT R/O COVID-19 09/07/2023 09/07/2023 09/07/2023 9:52 PM INBOUND CUSTOMER SERVICE AGENT documented as of this encounter Care Teams Inspector Aluminum Boat Relationship Specialty Start Date End Date Kassy Jay MD [address] [place] [address] [phone] PCP - General Family Practice 12/04/22 documented as of this encounter
--- OUTSIDE RECORDS SUMMARY | 2025-06-22 09:29 | XMS_ITS | Encounter Summary ---
Author Organization [facility] Address [address] [place] [address] Care Team Providers Care Ship'S Carpenter Name Role Phone Kassy Jay MD Primary Care Provider [phone] Encounter Details Date Type Department Care Team (Late Contact Info) Description 03/27/2004 Outpatient Historical [facility] Childrens Respiratory and Sleep Medicine [address] [facility] [address] [address] Gustavo Sims Social History Tobacco Use Types Packs/Day Years Used Date Smoking Tobacco: Never Assessed Comments Unknown Sex and Gender Information Value Date Recorded Sex Assigned at Not on file Legal Sex Female 4:02 AM HEALTH AND SAFETY COORDINATOR Gender Identity Not on file Sexual Orientation Not on file documented as of this encounter Plan of Treatment Upcoming Encounters Date Type Department Care Team ([facility] Contact Info) Description 06/26/2025 9:00 AM CDT Video Visit [facility] Adult Psychiatry [address] [phone] Argelia Law NP [address] [place] [address] 08/08/2025 7:30 AM HEALTH AND SAFETY COORDINATOR Video Visit [facility] Adult Psychiatry [address] [address] Argelia Law NP [address] [place] [address] [place] [address] 09/25/2025 8:00 AM HEALTH AND SAFETY COORDINATOR Office Visit [facility] Primary Care - Kirby Herrmann [address] [place] [address] Kassy Jay MD [address] [place] [place] [address] [address] documented as of this encounter Visit Diagnoses Not on filedocumented in this encounter Additional Health Concerns Infection Onset Date Last Indicated Resolved Time R/O COVID-19 06/02/2021 06/03/2021 06/03/2021 7:34 PM CDT R/O COVID-19 12/22/2022 12/22/2022 12/22/2022 12:2 5 PM CDT R/O COVID-19 09/07/2023 09/07/2023 09/07/2023 9:52 PM HEALTH AND SAFETY COORDINATOR documented as of this encounter Care Teams Ship'S Carpenter Relationship Specialty Start Date End Date Kassy Jay MD [address] [place] [place] [phone] PCP - General Family Practice 12/04/22 documented as of this encounter
--- OUTSIDE RECORDS SUMMARY | 2025-06-22 09:29 | XMS_ITS | Encounter Summary ---
Author Organization [facility] Address [address] [place] [address] Care Team Providers Care Hydraulic Jack Adjuster Name Role Phone Kassy Jay MD Primary Care Provider [phone] Encounter Details Date Type Department Care Team (Late Contact Info) Description 04/13/2002 Outpatient Historical [facility] Department of Peds at [address] [phone] Diandra Brown MD [address] [place] [address] [place] [phone] Social History Tobacco Use Types Packs/Day Years Used Date Smoking Tobacco: Never Assessed Comments Unknown Sex and Gender Information Value Date Recorded Sex Assigned at Not on file Legal Sex Female 4:02 AM PERINATAL EDUCATOR Gender Identity Not on file Sexual Orientation Not on file documented as of this encounter Plan of Treatment Upcoming Encounters Date Type Department Care Team (Late Contact Info) Description 06/26/2025 9:00 AM CDT Video Visit [facility] Adult Psychiatry [place] [address] [phone] Argelia Law NP [address] [address] 08/08/2025 7:30 AM PERINATAL EDUCATOR Video Visit [facility]3] Adult Psychiatry [place] [address] [address] [address] [address] Argelia Law NP 14[address] [facility] [address] [address] 09/25/2025 8:00 AM PERINATAL EDUCATOR Office Visit [facility]3] Primary Care - Kirby Herrmann [address] [place] [address] [address] Kassy Jay MD [address] [place] [address] [phone] documented as of this encounter Visit Diagnoses Not on filedocumented in this encounter Additional Health Concerns Infection Onset Date Last Indicated Resolved Time R/O COVID-19 06/02/2021 06/03/2021 06/03/2021 7:34 PM CDT R/O COVID-19 12/22/2022 12/22/2022 12/22/2022 12:2 5 PM CDT R/O COVID-19 09/07/2023 09/07/2023 09/07/2023 9:52 PM PERINATAL EDUCATOR documented as of this encounter Care Teams Hydraulic Jack Adjuster Relationship Specialty Start Date End Date Kassy Jay MD [address] [place] [phone] PCP - General Family Practice 12/04/22 documented as of this encounter
--- OUTSIDE RECORDS SUMMARY | 2025-06-22 09:29 | XMS_ITS | Encounter Summary ---
Author Organization [facility] Address [address] [place] [address] Care Team Providers Care Lunchroom Supervisor Name Role Phone Kassy Jay MD Primary Care Provider [phone] Encounter Details Date Type Department Care Team (Late Contact Info) Description 07/18/2004 Outpatient Historical [facility] Pediatrics - [facility] [address] [place] [address] [place] [address] [place] [address] Social History Tobacco Use Types Packs/Day Years Used Date Smoking Tobacco: Never Assessed Comments Unknown Sex and Gender Information Value Date Recorded Sex Assigned at Not on file Legal Sex Female 4:02 AM BARBER APPRENTICE Gender Identity Not on file Sexual Orientation Not on file documented as of this encounter Plan of Treatment Upcoming Encounters Date Type Department Care Team (Late Contact Info) Description 06/26/2025 9:00 AM CDT Video Visit [facility] Adult Psychiatry [place] [address] [phone] Argelia Law NP [address] [address] 08/08/2025 7:30 AM BARBER APPRENTICE Video Visit [facility] Adult Psychiatry [place] [address] [address] [address] [address] Argelia Law NP [address] [facility] [address] [address] 09/25/2025 8:00 AM BARBER APPRENTICE Office Visit [facility] Primary Care - Kirby Herrmann [address] [address] Kassy Jay MD [address] [place] [address] [address] documented as of this encounter Visit Diagnoses Not on filedocumented in this encounter Additional Health Concerns Infection Onset Date Last Indicated Resolved Time R/O COVID-19 06/02/2021 06/03/2021 06/03/2021 7:34 PM CDT R/O COVID-19 12/22/2022 12/22/2022 12/22/2022 12:2 5 PM CDT R/O COVID-19 09/07/2023 09/07/2023 09/07/2023 9:52 PM BARBER APPRENTICE documented as of this encounter Care Teams Lunchroom Supervisor Relationship Specialty Start Date End Date Kassy Jay MD [address] [place] [address] [phone] PCP - General Family Practice 12/04/22 documented as of this encounter
--- OUTSIDE RECORDS SUMMARY | 2025-06-22 09:29 | XMS_ITS | Encounter Summary ---
Author Organization [facility] Address [address] [place] [address] Care Team Providers Care Life Skills Instructor Name Role Phone Kassy Jay MD Primary Care Provider [phone] Encounter Details Date Type Department Care Team (Late Contact Info) Description 04/13/2002 Outpatient Historical [facility] Pediatrics - [facility] [address] [place] [address] [place] [address] [place] [address] Social History Tobacco Use Types Packs/Day Years Used Date Smoking Tobacco: Never Assessed Comments Unknown Sex and Gender Information Value Date Recorded Sex Assigned at Not on file Legal Sex Female 4:02 AM JAVA JSF DEVELOPER Gender Identity Not on file Sexual Orientation Not on file documented as of this encounter Plan of Treatment Upcoming Encounters Date Type Department Care Team (Late Contact Info) Description 06/26/2025 9:00 AM CDT Video Visit [facility] Adult Psychiatry [place] [address] [phone] Argelia Law NP [address] [address] 08/08/2025 7:30 AM JAVA JSF DEVELOPER Video Visit [facility] Adult Psychiatry [place] [address] [place] [address] [address] [address] [address] Argelia Law NP [address]20 [facility] [address] [address] 09/25/2025 8:00 AM JAVA JSF DEVELOPER Office Visit [facility] Primary Care - Kirby Herrmann [address] [place] [address] [address] Kassy Jay MD [address] [place] [address] [address] documented as of this encounter Visit Diagnoses Not on filedocumented in this encounter Additional Health Concerns Infection Onset Date Last Indicated Resolved Time R/O COVID-19 06/02/2021 06/03/2021 06/03/2021 7:34 PM CDT R/O COVID-19 12/22/2022 12/22/2022 12/22/2022 12:2 5 PM CDT R/O COVID-19 09/07/2023 09/07/2023 09/07/2023 9:52 PM JAVA JSF DEVELOPER documented as of this encounter Care Teams Life Skills Instructor Relationship Specialty Start Date End Date Kassy Jay MD [address] [place] [address] PCP - General Family Practice 12/04/22 documented as of this encounter
--- OUTSIDE RECORDS SUMMARY | 2025-06-22 09:29 | XMS_ITS | Encounter Summary ---
Author Organization [facility] Address [address] [place] [address] Care Team Providers Care Manager Life Sciences Name Role Phone Kassy Jay MD Primary Care Provider [phone] Encounter Details Date Type Department Care Team (Late Contact Info) Description 04/21/2003 Outpatient Historical [facility] Pediatrics - [facility] [address] [facility] [place] [address] [place] [address] [place] [address] Social History Tobacco Use Types Packs/Day Years Used Date Smoking Tobacco: Never Assessed Comments Unknown Sex and Gender Information Value Date Recorded Sex Assigned at Not on file Legal Sex Female 4:02 AM FIRST AID TRAINER Gender Identity Not on file Sexual Orientation Not on file documented as of this encounter Plan of Treatment Upcoming Encounters Date Type Department Care Team (Late Contact Info) Description 06/26/2025 9:00 AM CDT Video Visit [facility] Adult Psychiatry [place] [address] [address] Argelia Law NP [address] [address] 08/08/2025 7:30 AM FIRST AID TRAINER Video Visit [facility] Adult Psychiatry [place] [address] [place] [address] [address] [place] [address] Argelia Law NP 1420 [facility] [address] [place] [address] 09/25/2025 8:00 AM FIRST AID TRAINER Office Visit [facility] Primary Care - Kirby Herrmann [address] [place] [place] [address] Kassy Jay MD [address] [place] [address] documented as of this encounter Visit Diagnoses Not on filedocumented in this encounter Additional Health Concerns Infection Onset Date Last Indicated Resolved Time R/O COVID-19 06/02/2021 06/03/2021 06/03/2021 7:34 PM CDT R/O COVID-19 12/22/2022 12/22/2022 12/22/2022 12:2 5 PM CDT R/O COVID-19 09/07/2023 09/07/2023 09/07/2023 9:52 PM FIRST AID TRAINER documented as of this encounter Care Teams Manager Life Sciences Relationship Specialty Start Date End Date Kassy Jay MD [address] [place] [address] PCP - General Family Practice 12/04/22 documented as of this encounter
--- OUTSIDE RECORDS SUMMARY | 2025-06-22 09:29 | XMS_ITS | Encounter Summary ---
Author Organization [facility] Address [address] [place] [address] Care Team Providers Care Shift Production Supervisor Name Role Phone Kassy Jay MD Primary Care Provider [phone] Encounter Details Date Type Department Care Team (Late Contact Info) Description 04/14/2002 Outpatient Historical [facility]3] Pediatrics - [facility] [address] [facility] [address] [facility] [address] [place] [address] [place] [address] [place] [address] Social History Tobacco Use Types Packs/Day Years Used Date Smoking Tobacco: Never Assessed Comments Unknown Sex and Gender Information Value Date Recorded Sex Assigned at Not on file Legal Sex Female 4:02 AM CYTOLOGY SUPERVISOR Gender Identity Not on file Sexual Orientation Not on file documented as of this encounter Plan of Treatment Upcoming Encounters Date Type Department Care Team (Late Contact Info) Description 06/26/2025 9:00 AM CDT Video Visit [facility]3] Adult Psychiatry [place] [address] [address] Argelia Law NP [address] [address] 08/08/2025 7:30 AM CYTOLOGY SUPERVISOR Video Visit [facility]3] Adult Psychiatry [place] [address] [address] [place] [address] Argelia Law NP 1420 [facility] [address] [place] [address] 09/25/2025 8:00 AM CYTOLOGY SUPERVISOR Office Visit [facility]3] Primary Care - Kirby Herrmann [address] [place] [address] Kassy Jay MD [address] [place] [address] documented as of this encounter Visit Diagnoses Not on filedocumented in this encounter Additional Health Concerns Infection Onset Date Last Indicated Resolved Time R/O COVID-19 06/02/2021 06/03/2021 06/03/2021 7:34 PM CDT R/O COVID-19 12/22/2022 12/22/2022 12/22/2022 12:2 5 PM CDT R/O COVID-19 09/07/2023 09/07/2023 09/07/2023 9:52 PM CYTOLOGY SUPERVISOR documented as of this encounter Care Teams Shift Production Supervisor Relationship Specialty Start Date End Date Kassy Jay MD [address] [place] [address] [address] PCP - General Family Practice 12/04/22 documented as of this encounter
--- OUTSIDE RECORDS SUMMARY | 2025-06-22 09:29 | XMS_ITS | Encounter Summary ---
Author Organization [facility] Address [address] [place] [address] Care Team Providers Care Oil Field Roustabout Name Role Phone Kassy Jay MD Primary Care Provider [phone] Encounter Details Date Type Department Care Team (Late Contact Info) Description 12/05/2002 Outpatient Historical [facility] Childrens Respiratory and Sleep Medicine [address] [facility] [address] [address] Gustavo Sims Social History Tobacco Use Types Packs/Day Years Used Date Smoking Tobacco: Never Assessed Comments Unknown Sex and Gender Information Value Date Recorded Sex Assigned at Not on file Legal Sex Female 4:02 AM V/STOL LANDING SIGNAL OFFICER Gender Identity Not on file Sexual Orientation Not on file documented as of this encounter Plan of Treatment Upcoming Encounters Date Type Department Care Team ([facility] Contact Info) Description 06/26/2025 9:00 AM CDT Video Visit [facility] Adult Psychiatry [address] [phone] Argelia Law NP [address] [place] [address] 08/08/2025 7:30 AM V/STOL LANDING SIGNAL OFFICER Video Visit [facility] Adult Psychiatry [address] [address] Argelia Law NP [address] [place] [address] [place] [address] 09/25/2025 8:00 AM V/STOL LANDING SIGNAL OFFICER Office Visit [facility] Primary Care - Kirby Herrmann [address] [place] [place] [address] Kassy Jay MD [address] [place] [address] documented as of this encounter Visit Diagnoses Not on filedocumented in this encounter Additional Health Concerns Infection Onset Date Last Indicated Resolved Time R/O COVID-19 06/02/2021 06/03/2021 06/03/2021 7:34 PM CDT R/O COVID-19 12/22/2022 12/22/2022 12/22/2022 12:2 5 PM CDT R/O COVID-19 09/07/2023 09/07/2023 09/07/2023 9:52 PM V/STOL LANDING SIGNAL OFFICER documented as of this encounter Care Teams Oil Field Roustabout Relationship Specialty Start Date End Date Kassy Jay MD [address] [place] [address] [phone] PCP - General Family Practice 12/04/22 documented as of this encounter
--- OUTSIDE RECORDS SUMMARY | 2025-06-22 09:29 | XMS_ITS | Encounter Summary ---
Author Organization [facility] Address [address] [place] [address] Care Team Providers Care Bench Worker Helper Name Role Phone Kassy Jay MD Primary Care Provider [phone] Encounter Details Date Type Department Care Team (Late Contact Info) Description 06/16/2002 Outpatient Historical [facility] Childrens Respiratory and Sleep Medicine [address] [facility] [address] [address] Gustavo Sims Social History Tobacco Use Types Packs/Day Years Used Date Smoking Tobacco: Never Assessed Comments Unknown Sex and Gender Information Value Date Recorded Sex Assigned at Not on file Legal Sex Female 4:02 AM SUPERVISOR INTELLIGENCE ANALYST Gender Identity Not on file Sexual Orientation Not on file documented as of this encounter Plan of Treatment Upcoming Encounters Date Type Department Care Team ([facility] Contact Info) Description 06/26/2025 9:00 AM CDT Video Visit [facility] Adult Psychiatry [address] [phone] Argelia Law NP [address] [place] [address] 08/08/2025 7:30 AM SUPERVISOR INTELLIGENCE ANALYST Video Visit [facility] Adult Psychiatry [address] [address] Argelia Law NP [address] [place] [address] [place] [address] 09/25/2025 8:00 AM SUPERVISOR INTELLIGENCE ANALYST Office Visit [facility] Primary Care - Kirby Herrmann [address] [place] [address] Kassy Jay MD [address] [place] [address] documented as of this encounter Visit Diagnoses Not on filedocumented in this encounter Additional Health Concerns Infection Onset Date Last Indicated Resolved Time R/O COVID-19 06/02/2021 06/03/2021 06/03/2021 7:34 PM CDT R/O COVID-19 12/22/2022 12/22/2022 12/22/2022 12:2 5 PM CDT R/O COVID-19 09/07/2023 09/07/2023 09/07/2023 9:52 PM SUPERVISOR INTELLIGENCE ANALYST documented as of this encounter Care Teams Bench Worker Helper Relationship Specialty Start Date End Date Kassy Jay MD [address] [place] [place] [phone] PCP - General Family Practice 12/04/22 documented as of this encounter
--- OUTSIDE RECORDS SUMMARY | 2025-06-22 09:29 | XMS_ITS | Encounter Summary ---
Author Organization [facility] Address [address] [place] [address] Care Team Providers Care Production Control Expert Name Role Phone Kassy Jay MD Primary Care Provider [phone] Encounter Details Date Type Department Care Team (Late Contact Info) Description 06/07/2003 Outpatient Historical [facility] Childrens Respiratory and Sleep Medicine [address] [facility] [address] [address] Gustavo Sims Social History Tobacco Use Types Packs/Day Years Used Date Smoking Tobacco: Never Assessed Comments Unknown Sex and Gender Information Value Date Recorded Sex Assigned at Not on file Legal Sex Female 4:02 AM WEB SITE SPECIALIST Gender Identity Not on file Sexual Orientation Not on file documented as of this encounter Plan of Treatment Upcoming Encounters Date Type Department Care Team ([facility] Contact Info) Description 06/26/2025 9:00 AM CDT Video Visit [facility] Adult Psychiatry [address] [phone] Argelia Law NP [address] [place] [address] 08/08/2025 7:30 AM WEB SITE SPECIALIST Video Visit [facility] Adult Psychiatry [address] [address] Argelia Law NP [address] [place] [address] [place] [address] 09/25/2025 8:00 AM WEB SITE SPECIALIST Office Visit [facility] Primary Care - Kirby Herrmann [address] [place] [address] [address] Kassy Jay MD [address] [place] [place] [address] [address] documented as of this encounter Visit Diagnoses Not on filedocumented in this encounter Additional Health Concerns Infection Onset Date Last Indicated Resolved Time R/O COVID-19 06/02/2021 06/03/2021 06/03/2021 7:34 PM CDT R/O COVID-19 12/22/2022 12/22/2022 12/22/2022 12:2 5 PM CDT R/O COVID-19 09/07/2023 09/07/2023 09/07/2023 9:52 PM WEB SITE SPECIALIST documented as of this encounter Care Teams Production Control Expert Relationship Specialty Start Date End Date Kassy Jay MD [address] [place] [place] [phone] PCP - General Family Practice 12/04/22 documented as of this encounter
--- OUTSIDE RECORDS SUMMARY | 2025-06-22 09:29 | XMS_ITS | Encounter Summary ---
Author Organization [facility] Address [address] [place] [address] Care Team Providers Care News Commentator Name Role Phone Kassy Jay MD Primary Care Provider [phone] Encounter Details Date Type Department Care Team (Latest Contact Info) Description 03/27/2004 Outpatient Historical [facility] Gustavo Sims ASTHMA UNSPECIFIED (Primary Dx) Social History Tobacco Use Types Packs/Day Years Used Date Smoking Tobacco: Never Assessed Comments Unknown Sex and Gender Information Value Date Recorded Sex Assigned at Not on file Legal Sex Female 4:02 AM ORACLE ENDECA CONSULTANT Gender Identity Not on file Sexual Orientation Not on file documented as of this encounter Plan of Treatment Upcoming Encounters Date Type Department Care Team (Late st Contact Info) Description 06/26/2025 9:00 AM CDT Video Visit [facility] Adult Psychiatry [address] [place] [address] Argelia Law NP [address] [place] [address] [place] [address] 08/08/2025 7:30 AM ORACLE ENDECA CONSULTANT Video Visit [facility] Adult Psychiatry [address] [place] [address] Argelia Law NP [address] [place] [address] [place] [address] 09/25/2025 8:00 AM ORACLE ENDECA CONSULTANT Office Visit [facility] Primary Care - Kirby Herrmann [address] [place] [phone] Kassy Jay MD [address] [place] [phone] documented as of this encounter Visit Diagnoses Diagnosis Unspecified asthma(493.90)- Primary Unspecified asthma documented in this encounter Additional Health Concerns Infection Onset Date Last Indicated Resolved Time R/O COVID-19 06/02/2021 06/03/2021 06/03/2021 7:34 PM CDT R/O COVID-19 12/22/2022 12/22/2022 12/22/2022 12:2 5 PM CDT R/O COVID-19 09/07/2023 09/07/2023 09/07/2023 9:52 PM ORACLE ENDECA CONSULTANT documented as of this encounter Care Teams News Commentator Relationship Specialty Start Date End Date Kassy Jay MD [address] [place] [phone] PCP - General Family Practice 12/04/22 documented as of this encounter
--- OUTSIDE RECORDS SUMMARY | 2025-06-22 09:29 | XMS_ITS | Encounter Summary ---
Author Organization [facility] Address [address] [place] [address] Care Team Providers Care Tnt Line Supervisor Name Role Phone Kassy Jay MD Primary Care Provider [phone] Encounter Details Date Type Department Care Team (Late Contact Info) Description 12/15/2003 Outpatient Historical [facility] Childrens Respiratory and Sleep Medicine [address] [facility] [address] [address] Gustavo Sims Social History Tobacco Use Types Packs/Day Years Used Date Smoking Tobacco: Never Assessed Comments Unknown Sex and Gender Information Value Date Recorded Sex Assigned at Not on file Legal Sex Female 4:02 AM HOSPITAL TELEVISION RENTAL CLERK Gender Identity Not on file Sexual Orientation Not on file documented as of this encounter Plan of Treatment Upcoming Encounters Date Type Department Care Team ([facility] Contact Info) Description 06/26/2025 9:00 AM CDT Video Visit [facility] Adult Psychiatry [address] [phone] Argelia Law NP [address] [place] [address] 08/08/2025 7:30 AM HOSPITAL TELEVISION RENTAL CLERK Video Visit [facility] Adult Psychiatry [address] [address] Argelia Law NP [address] [place] [address] [place] [address] 09/25/2025 8:00 AM HOSPITAL TELEVISION RENTAL CLERK Office Visit [facility] Primary Care - Kirby Herrmann [address] [place] [address] Kassy Jay MD [address] [place] [place] [address] [address] documented as of this encounter Visit Diagnoses Not on filedocumented in this encounter Additional Health Concerns Infection Onset Date Last Indicated Resolved Time R/O COVID-19 06/02/2021 06/03/2021 06/03/2021 7:34 PM CDT R/O COVID-19 12/22/2022 12/22/2022 12/22/2022 12:2 5 PM CDT R/O COVID-19 09/07/2023 09/07/2023 09/07/2023 9:52 PM HOSPITAL TELEVISION RENTAL CLERK documented as of this encounter Care Teams Tnt Line Supervisor Relationship Specialty Start Date End Date Kassy Jay MD [address] [place] [place] [phone] PCP - General Family Practice 12/04/22 documented as of this encounter
--- OUTSIDE RECORDS SUMMARY | 2025-06-22 09:29 | XMS_ITS | Encounter Summary ---
Author Organization [facility] Address [address] [place] [address] Care Team Providers Care Pathologist Name Role Phone Kassy Jay MD Primary Care Provider [phone] Encounter Details Date Type Department Care Team (Latest Contact Info) Description 10/09/2003 Outpatient Historical [facility] Gustavo Sims ASTHMA UNSPECIFIED (Primary Dx) Social History Tobacco Use Types Packs/Day Years Used Date Smoking Tobacco: Never Assessed Comments Unknown Sex and Gender Information Value Date Recorded Sex Assigned at Not on file Legal Sex Female 4:02 AM LOIN TRIMMER Gender Identity Not on file Sexual Orientation Not on file documented as of this encounter Plan of Treatment Upcoming Encounters Date Type Department Care Team (Late st Contact Info) Description 06/26/2025 9:00 AM CDT Video Visit [facility] Adult Psychiatry [address] [place] [address] Argelia Law NP [address] [place] [address] [place] [address] 08/08/2025 7:30 AM LOIN TRIMMER Video Visit [facility] Adult Psychiatry [address] [place] [address] Argelia Law NP [address] [place] [address] [place] [address] 09/25/2025 8:00 AM LOIN TRIMMER Office Visit [facility] Primary Care - Kirby Herrmann [address] [place] [phone] Kassy Jay MD [address] [place] [phone] documented as of this encounter Visit Diagnoses Diagnosis Unspecified asthma(493.90)- Primary Unspecified asthma documented in this encounter Additional Health Concerns Infection Onset Date Last Indicated Resolved Time R/O COVID-19 06/02/2021 06/03/2021 06/03/2021 7:34 PM CDT R/O COVID-19 12/22/2022 12/22/2022 12/22/2022 12:2 5 PM CDT R/O COVID-19 09/07/2023 09/07/2023 09/07/2023 9:52 PM LOIN TRIMMER documented as of this encounter Care Teams Pathologist Relationship Specialty Start Date End Date Kassy Jay MD [address] [place] [address] [phone] PCP - General Family Practice 12/04/22 documented as of this encounter
--- OUTSIDE RECORDS SUMMARY | 2025-06-22 09:29 | XMS_ITS | Encounter Summary ---
Author Organization [facility] Address [address] [place] [address] Care Team Providers Care Holder Pile Driving Name Role Phone Kassy Jay MD Primary Care Provider [phone] Encounter Details Date Type Department Care Team (Late Contact Info) Description 03/26/2004 Outpatient Historical [facility] Pediatrics - [facility] [address] [facility] [address] [place] [address] [place] [address] [place] [address] Social History Tobacco Use Types Packs/Day Years Used Date Smoking Tobacco: Never Assessed Comments Unknown Sex and Gender Information Value Date Recorded Sex Assigned at Not on file Legal Sex Female 4:02 AM BAKERY CHEF Gender Identity Not on file Sexual Orientation Not on file documented as of this encounter Plan of Treatment Upcoming Encounters Date Type Department Care Team (Late Contact Info) Description 06/26/2025 9:00 AM CDT Video Visit [facility] Adult Psychiatry [place] [address] [phone] Argelia Law NP [address] [address] 08/08/2025 7:30 AM BAKERY CHEF Video Visit [facility] Adult Psychiatry [place] [address] [address] [address] [address] Argelia Law NP [address] [facility] [address] [address] 09/25/2025 8:00 AM BAKERY CHEF Office Visit [facility] Primary Care - Kirby Herrmann [address] [place] [address] Kassy Jay MD [address] [place] [address] documented as of this encounter Visit Diagnoses Not on filedocumented in this encounter Additional Health Concerns Infection Onset Date Last Indicated Resolved Time R/O COVID-19 06/02/2021 06/03/2021 06/03/2021 7:34 PM CDT R/O COVID-19 12/22/2022 12/22/2022 12/22/2022 12:2 5 PM CDT R/O COVID-19 09/07/2023 09/07/2023 09/07/2023 9:52 PM BAKERY CHEF documented as of this encounter Care Teams Holder Pile Driving Relationship Specialty Start Date End Date Kassy Jay MD [address] [place] [address] [phone] PCP - General Family Practice 12/04/22 documented as of this encounter
--- OUTSIDE RECORDS SUMMARY | 2025-06-22 09:29 | XMS_ITS | Encounter Summary ---
Author Organization [facility] Address [address] [place] [address] Care Team Providers Care Commercial Journeyman Electrician Name Role Phone Kassy Jay MD Primary Care Provider [phone] Encounter Details Date Type Department Care Team (Late Contact Info) Description 08/23/2001 Outpatient Historical [facility] Pediatrics - [facility] [address] [facility] [address] [place] [address] [place] [address] [place] [address] Social History Tobacco Use Types Packs/Day Years Used Date Smoking Tobacco: Never Assessed Comments Unknown Sex and Gender Information Value Date Recorded Sex Assigned at Not on file Legal Sex Female 4:02 AM FELT MACHINE MECHANIC Gender Identity Not on file Sexual Orientation Not on file documented as of this encounter Plan of Treatment Upcoming Encounters Date Type Department Care Team (Late Contact Info) Description 06/26/2025 9:00 AM CDT Video Visit [facility] Adult Psychiatry [place] [address] [phone] Argelia Law NP [address] [address] 08/08/2025 7:30 AM FELT MACHINE MECHANIC Video Visit [facility] Adult Psychiatry [place] [address] [place] [address] [address] [address] Argelia Law NP 1420 [facility] [address] [address] 09/25/2025 8:00 AM FELT MACHINE MECHANIC Office Visit [facility] Primary Care - Kirby Herrmann [address] [place] [address] Kassy Jay MD [address] [place] [address] documented as of this encounter Visit Diagnoses Not on filedocumented in this encounter Additional Health Concerns Infection Onset Date Last Indicated Resolved Time R/O COVID-19 06/02/2021 06/03/2021 06/03/2021 7:34 PM CDT R/O COVID-19 12/22/2022 12/22/2022 12/22/2022 12:2 5 PM CDT R/O COVID-19 09/07/2023 09/07/2023 09/07/2023 9:52 PM FELT MACHINE MECHANIC documented as of this encounter Care Teams Commercial Journeyman Electrician Relationship Specialty Start Date End Date Kassy Jay MD [address] [place] [address] [phone] PCP - General Family Practice 12/04/22 documented as of this encounter
--- OUTSIDE RECORDS SUMMARY | 2025-06-22 09:29 | XMS_ITS | Encounter Summary ---
Author Organization [facility] Address [address] [place] [address] Care Team Providers Care Cmm Programmer Name Role Phone Kassy Jay MD Primary Care Provider [phone] Encounter Details Date Type Department Care Team (Late Contact Info) Description 04/07/2002 Outpatient Historical [facility] Pediatrics - [facility] [address] [address] [facility] [address] [place] [address] Darren Tabor MD NO ADDRESS ON FILE Social History Tobacco Use Types Packs/Day Years Used Date Smoking Tobacco: Never Assessed Comments Unknown Sex and Gender Information Value Date Recorded Sex Assigned at Not on file Legal Sex Female 4:02 AM INSULATOR HELPER Gender Identity Not on file Sexual Orientation Not on file documented as of this encounter Plan of Treatment Upcoming Encounters Date Type Department Care Team (Late Contact Info) Description 06/26/2025 9:00 AM CDT Video Visit [facility] Adult Psychiatry [address] [address] Argelia Law NP [address] [place] [address] 08/08/2025 7:30 AM INSULATOR HELPER Video Visit [facility] Adult Psychiatry [address] [address] Argelia Law NP [address] [address] [place] [address] 09/25/2025 8:00 AM INSULATOR HELPER Office Visit [facility] Primary Care - Kirby Herrmann [address] [place] [address] [address] Kassy Jay MD [address] [place] [phone] documented as of this encounter Visit Diagnoses Not on filedocumented in this encounter Additional Health Concerns Infection Onset Date Last Indicated Resolved Time R/O COVID-19 06/02/2021 06/03/2021 06/03/2021 7:34 PM CDT R/O COVID-19 12/22/2022 12/22/2022 12/22/2022 12:2 5 PM CDT R/O COVID-19 09/07/2023 09/07/2023 09/07/2023 9:52 PM INSULATOR HELPER documented as of this encounter Care Teams Cmm Programmer Relationship Specialty Start Date End Date Kassy Jay MD [address] [place] [place] [phone] PCP - General Family Practice 12/04/22 documented as of this encounter
--- OUTSIDE RECORDS SUMMARY | 2025-06-22 09:29 | XMS_ITS | Encounter Summary ---
Author Organization [facility] Address [address] [place] [address] Care Team Providers Care Garment Supervisor Name Role Phone Kassy Jay MD Primary Care Provider [phone] Encounter Details Date Type Department Care Team (Late Contact Info) Description 07/13/2001 Outpatient Historical [facility] Pediatrics - [facility] [address] [facility] [address] [place] [address] [place] [address] [place] [address] Social History Tobacco Use Types Packs/Day Years Used Date Smoking Tobacco: Never Assessed Comments Unknown Sex and Gender Information Value Date Recorded Sex Assigned at Not on file Legal Sex Female 4:02 AM SALES AGENT PROTECTIVE SERVICE Gender Identity Not on file Sexual Orientation Not on file documented as of this encounter Plan of Treatment Upcoming Encounters Date Type Department Care Team (Late Contact Info) Description 06/26/2025 9:00 AM CDT Video Visit [facility] Adult Psychiatry [place] [address] [phone] Argelia Law NP [address] [address] 08/08/2025 7:30 AM SALES AGENT PROTECTIVE SERVICE Video Visit [facility] Adult Psychiatry [place] [address] [address] [place] [address] Argelia Law NP [address]20 [facility] [address] [place] [address] 09/25/2025 8:00 AM SALES AGENT PROTECTIVE SERVICE Office Visit [facility] Primary Care - Kirby Herrmann [address] [place] [address] Kassy Jay MD [address] [place] [address] documented as of this encounter Visit Diagnoses Not on filedocumented in this encounter Additional Health Concerns Infection Onset Date Last Indicated Resolved Time R/O COVID-19 06/02/2021 06/03/2021 06/03/2021 7:34 PM CDT R/O COVID-19 12/22/2022 12/22/2022 12/22/2022 12:2 5 PM CDT R/O COVID-19 09/07/2023 09/07/2023 09/07/2023 9:52 PM SALES AGENT PROTECTIVE SERVICE documented as of this encounter Care Teams Garment Supervisor Relationship Specialty Start Date End Date Kassy Jay MD [address] [place] [address] [address] PCP - General Family Practice 12/04/22 documented as of this encounter
--- OUTSIDE RECORDS SUMMARY | 2025-06-22 09:29 | XMS_ITS | Encounter Summary ---
Author Organization [facility] Address [address] [place] [address] Care Team Providers Care Baker Paint Name Role Phone Kassy Jay MD Primary Care Provider [phone] Encounter Details Date Type Department Care Team (Late Contact Info) Description 04/18/2002 Outpatient Historical [facility] Pediatrics - [facility] [address] [facility] [address] [place] [address] [place] [address] [place] [address] Social History Tobacco Use Types Packs/Day Years Used Date Smoking Tobacco: Never Assessed Comments Unknown Sex and Gender Information Value Date Recorded Sex Assigned at Not on file Legal Sex Female 4:02 AM ROTARY ROCK DRILLING MACHINE OPERATOR Gender Identity Not on file Sexual Orientation Not on file documented as of this encounter Plan of Treatment Upcoming Encounters Date Type Department Care Team (Late Contact Info) Description 06/26/2025 9:00 AM CDT Video Visit [facility] Adult Psychiatry [place] [address] [phone] Argelia Law NP [address] [address] 08/08/2025 7:30 AM ROTARY ROCK DRILLING MACHINE OPERATOR Video Visit [facility] Adult Psychiatry [place] [address] [address] [place] [address] Argelia Law NP 1420 [facility] [address] [place] [address] 09/25/2025 8:00 AM ROTARY ROCK DRILLING MACHINE OPERATOR Office Visit [facility] Primary Care - Kirby Herrmann [address] [place] [address] [address] Kassy Jay MD [address] [place] [address] documented as of this encounter Visit Diagnoses Not on filedocumented in this encounter Additional Health Concerns Infection Onset Date Last Indicated Resolved Time R/O COVID-19 06/02/2021 06/03/2021 06/03/2021 7:34 PM CDT R/O COVID-19 12/22/2022 12/22/2022 12/22/2022 12:2 5 PM CDT R/O COVID-19 09/07/2023 09/07/2023 09/07/2023 9:52 PM ROTARY ROCK DRILLING MACHINE OPERATOR documented as of this encounter Care Teams Baker Paint Relationship Specialty Start Date End Date Kassy Jay MD [address] [place] [address] [address] PCP - General Family Practice 12/04/22 documented as of this encounter
--- OUTSIDE RECORDS SUMMARY | 2025-06-22 09:29 | XMS_ITS | Encounter Summary ---
Author Organization [facility] Address [address] [place] [address] Care Team Providers Care Farmworker Bulbs Name Role Phone Kassy Jay MD Primary Care Provider [phone] Encounter Details Date Type Department Care Team (Late Contact Info) Description 03/27/2004 Outpatient Historical [facility] Childrens Respiratory and Sleep Medicine [address] [facility] [address] [address] Gustavo Sims Social History Tobacco Use Types Packs/Day Years Used Date Smoking Tobacco: Never Assessed Comments Unknown Sex and Gender Information Value Date Recorded Sex Assigned at Not on file Legal Sex Female 4:02 AM BIOLOGY INTERNSHIP Gender Identity Not on file Sexual Orientation Not on file documented as of this encounter Plan of Treatment Upcoming Encounters Date Type Department Care Team ([facility] Contact Info) Description 06/26/2025 9:00 AM CDT Video Visit [facility] Adult Psychiatry [address] [phone] Argelia Law NP [address] [place] [address] 08/08/2025 7:30 AM BIOLOGY INTERNSHIP Video Visit [facility] Adult Psychiatry [address] [address] Argelia Law NP [address] [place] [address] [place] [address] 09/25/2025 8:00 AM BIOLOGY INTERNSHIP Office Visit [facility] Primary Care - Kirby Herrmann [address] [place] [address] [phone] Kassy Jay MD [address] [place] [address] [address] documented as of this encounter Visit Diagnoses Not on filedocumented in this encounter Additional Health Concerns Infection Onset Date Last Indicated Resolved Time R/O COVID-19 06/02/2021 06/03/2021 06/03/2021 7:34 PM CDT R/O COVID-19 12/22/2022 12/22/2022 12/22/2022 12:2 5 PM CDT R/O COVID-19 09/07/2023 09/07/2023 09/07/2023 9:52 PM BIOLOGY INTERNSHIP documented as of this encounter Care Teams Farmworker Bulbs Relationship Specialty Start Date End Date Kassy Jay MD [address] [place] [address] [phone] PCP - General Family Practice 12/04/22 documented as of this encounter
--- OUTSIDE RECORDS SUMMARY | 2025-06-22 09:29 | XMS_ITS | Encounter Summary ---
Author Organization [facility] Address [address] [place] [address] Care Team Providers Care Spike Machine Heater Name Role Phone Kassy Jay MD Primary Care Provider [phone] Encounter Details Date Type Department Care Team ([facility] Contact Info) Description 04/19/2007 Outpatient Historical [facility] Pediatrics - [facility] [address] [facility] [address] [place] [address] [place] [address] [facility] [address] [place] [address] Social History Tobacco Use Types Packs/Day Years Used Date Smoking Tobacco: Never Assessed Comments Unknown Sex and Gender Information Value Date Recorded Sex Assigned at Not on file Legal Sex Female 4:02 AM RADIO EQUIPMENT INSTALLER Gender Identity Not on file Sexual [...] Upcoming Encounters Date Type Department Care Team ([facility] Contact Info) Description 06/26/2025 9:00 AM CDT Video Visit [facility] Adult Psychiatry [place] [address] [address] [place], [place] [address] Argelia Law, [place] [address] [address] [place] [address] 08/08/2025 7:30 AM RADIO EQUIPMENT INSTALLER Video Visit [facility] Adult Psychiatry [place] [address] [address] [place] [address] Argelia Law, [place] [address] [address] [place] [address] 09/25/2025 8:00 AM RADIO EQUIPMENT INSTALLER Office Visit [facility] Primary Care - Kirby Herrmann [address] [place] [address] Kassy Jay MD [address] [place] [address] documented as of this encounter Visit Diagnoses Not on filedocumented in this encounter Additional Health Concerns Infection Onset Date Last Indicated Resolved Time R/O COVID-19 06/02/2021 06/03/2021 06/03/2021 7:34 PM CDT R/O COVID-19 12/22/2022 12/22/2022 12/22/2022 12:2 5 PM CDT R/O COVID-19 09/07/2023 09/07/2023 09/07/2023 9:52 PM RADIO EQUIPMENT INSTALLER documented as of this encounter Care Teams Spike Machine Heater Relationship Specialty Start Date End Date Kassy Jay MD [address] [place] [phone] PCP - General Family Practice 12/04/22 documented as of this encounter
--- OUTSIDE RECORDS SUMMARY | 2025-06-22 09:29 | XMS_ITS | Encounter Summary ---
Author Organization [facility] Address [address] [place] [address] Care Team Providers Care Clinical Informatics Manager Name Role Phone Kassy Jay MD Primary Care Provider [phone] Encounter Details Date Type Department Care Team ([facility] Contact Info) Description 05/09/2004 Outpatient Historical [facility] Pediatrics - [facility] [address] [address] [facility] [address] [place] [address] [place] [address] [facility] [address] [address] [place] [address] Social History Tobacco Use Types Packs/Day Years Used Date Smoking Tobacco: Never Assessed Comments Unknown Sex and Gender Information Value Date Recorded Sex Assigned at Not on file Legal Sex Female 4:02 AM PAPER SLITTER Gender Identity Not on file Sexual Orientation [...] Description 06/26/2025 9:00 AM CDT Video Visit [facility] Adult Psychiatry [place] [address] [address] [place] [address] Thanh, Argelia Lopez, [place] [address] [address] [place] [address] 08/08/2025 7:30 AM PAPER SLITTER Video Visit [facility] Adult Psychiatry [place] [address] [address] [place] [address] Thanh, Argelia Lopez NP [address] [address] [place] [address] 09/25/2025 8:00 AM PAPER SLITTER Office Visit [facility] Primary Care - Kirby Herrmann [address] [place] [address] [address] Kassy Jay MD [address] [place] [address] documented as of this encounter Visit Diagnoses Not on filedocumented in this encounter Additional Health Concerns Infection Onset Date Last Indicated Resolved Time R/O COVID-19 06/02/2021 06/03/2021 06/03/2021 7:34 PM CDT R/O COVID-19 12/22/2022 12/22/2022 12/22/2022 12:2 5 PM CDT R/O COVID-19 09/07/2023 09/07/2023 09/07/2023 9:52 PM PAPER SLITTER documented as of this encounter Care Teams Clinical Informatics Manager Relationship Specialty Start Date End Date Kassy Jay MD [address] [place] [phone] PCP - General Family Practice 12/04/22 documented as of this encounter
--- OUTSIDE RECORDS SUMMARY | 2025-06-22 09:29 | XMS_ITS | Encounter Summary ---
Author Organization [facility] Address [address] [place] [address] Care Team Providers Care Regional Sales Trainer Name Role Phone Kassy Jay MD Primary Care Provider [phone] Encounter Details Date Type Department Care Team (Late Contact Info) Description 11/08/2004 Outpatient Historical [facility] Pediatrics - [facility] [address] [address] [facility] [address] [place] [address] [place] [address] [facility] [place] [address] Social History Tobacco Use Types Packs/Day Years Used Date Smoking Tobacco: Never Assessed Comments Unknown Sex and Gender Information Value Date Recorded Sex Assigned at Not on file Legal Sex Female 4:02 AM SALES RECRUITER Gender Identity Not on file Sexual Orientation Not on file documented as of this encounter Plan of Treatment Upcoming Encounters Date Type Department Care Team (Late Contact Info) Description 06/26/2025 9:00 AM CDT Video Visit [facility] Adult Psychiatry [place] [address] [address] Argelia Law NP [address] [address] 08/08/2025 7:30 AM SALES RECRUITER Video Visit [facility] Adult Psychiatry [place] [address] [address] [place] [address] Argelia Law NP 1420 [facility] [address] [place] [address] 09/25/2025 8:00 AM SALES RECRUITER Office Visit [facility] Primary Care - Kirby Herrmann [address] [address] [address] [address] Kassy Jay MD [address] [place] [address] [address] documented as of this encounter Visit Diagnoses Not on filedocumented in this encounter Additional Health Concerns Infection Onset Date Last Indicated Resolved Time R/O COVID-19 06/02/2021 06/03/2021 06/03/2021 7:34 PM CDT R/O COVID-19 12/22/2022 12/22/2022 12/22/2022 12:2 5 PM CDT R/O COVID-19 09/07/2023 09/07/2023 09/07/2023 9:52 PM SALES RECRUITER documented as of this encounter Care Teams Regional Sales Trainer Relationship Specialty Start Date End Date Kassy Jay MD [address] [place] [address] [phone] PCP - General Family Practice 12/04/22 documented as of this encounter
--- OUTSIDE RECORDS SUMMARY | 2025-06-22 09:29 | XMS_ITS | Encounter Summary ---
Author Organization [facility] Address [address] [place] [address] Care Team Providers Care Barrow Worker Name Role Phone Kassy Jay MD Primary Care Provider [phone] Encounter Details Date Type Department Care Team (Late Contact Info) Description 06/30/2007 Outpatient Historical [facility] Pediatrics - [facility] [address] [facility] [address] [place] [address] [place] [address] [place] [address] Social History Tobacco Use Types Packs/Day Years Used Date Smoking Tobacco: Never Assessed Comments Unknown Sex and Gender Information Value Date Recorded Sex Assigned at Not on file Legal Sex Female 4:02 AM MUNITIONS HANDLER Gender Identity Not on file Sexual Orientation Not on file documented as of this encounter Plan of Treatment Upcoming Encounters Date Type Department Care Team (Late Contact Info) Description 06/26/2025 9:00 AM CDT Video Visit [facility] Adult Psychiatry [place] [address] [phone] Argelia Law NP [address] [address] 08/08/2025 7:30 AM MUNITIONS HANDLER Video Visit [facility] Adult Psychiatry [place] [address] [address] [place] [address] Argelia Law NP 1420 [facility] [address] [place] [address] 09/25/2025 8:00 AM MUNITIONS HANDLER Office Visit [facility] Primary Care - Kirby Herrmann [address] [place] [address] [address] [address] Kassy Jay MD [address] [place] [address] [address] documented as of this encounter Visit Diagnoses Not on filedocumented in this encounter Additional Health Concerns Infection Onset Date Last Indicated Resolved Time R/O COVID-19 06/02/2021 06/03/2021 06/03/2021 7:34 PM CDT R/O COVID-19 12/22/2022 12/22/2022 12/22/2022 12:2 5 PM CDT R/O COVID-19 09/07/2023 09/07/2023 09/07/2023 9:52 PM MUNITIONS HANDLER documented as of this encounter Care Teams Barrow Worker Relationship Specialty Start Date End Date Kassy Jay MD [address] [place] [address] [phone] PCP - General Family Practice 12/04/22 documented as of this encounter
--- OUTSIDE RECORDS SUMMARY | 2025-06-22 09:29 | XMS_ITS | Encounter Summary ---
Author Organization [facility] Address [address] [place] [address] Care Team Providers Care Soil Science Professor Name Role Phone Kassy Jay MD Primary Care Provider [phone] Encounter Details Date Type Department Care Team (Late Contact Info) Description 09/30/2002 Outpatient Historical [facility] Pediatrics - [facility] [address] [facility] [address] [place] [address] [place] [address] [place] [address] Social History Tobacco Use Types Packs/Day Years Used Date Smoking Tobacco: Never Assessed Comments Unknown Sex and Gender Information Value Date Recorded Sex Assigned at Not on file Legal Sex Female 4:02 AM POSITION CLASSIFICATION MANAGER Gender Identity Not on file Sexual Orientation Not on file documented as of this encounter Plan of Treatment Upcoming Encounters Date Type Department Care Team (Late Contact Info) Description 06/26/2025 9:00 AM CDT Video Visit [facility] Adult Psychiatry [place] [address] [address] Argelia Law NP [address] [address] 08/08/2025 7:30 AM POSITION CLASSIFICATION MANAGER Video Visit [facility] Adult Psychiatry [place] [address] [address] [place] [address] Argelia Law NP 1420 [facility] [address] [place] [address] 09/25/2025 8:00 AM POSITION CLASSIFICATION MANAGER Office Visit [facility] Primary Care - Kirby Herrmann [address] [place] [address] [address] [address] Kassy Jay MD [address] [place] [address] [address] documented as of this encounter Visit Diagnoses Not on filedocumented in this encounter Additional Health Concerns Infection Onset Date Last Indicated Resolved Time R/O COVID-19 06/02/2021 06/03/2021 06/03/2021 7:34 PM CDT R/O COVID-19 12/22/2022 12/22/2022 12/22/2022 12:2 5 PM CDT R/O COVID-19 09/07/2023 09/07/2023 09/07/2023 9:52 PM POSITION CLASSIFICATION MANAGER documented as of this encounter Care Teams Soil Science Professor Relationship Specialty Start Date End Date Kassy Jay MD [address] [place] [address] [address] PCP - General Family Practice 12/04/22 documented as of this encounter
--- OUTSIDE RECORDS SUMMARY | 2025-06-22 09:29 | XMS_ITS | Encounter Summary ---
Author Organization [facility] Address [address] [place] [address] Care Team Providers Care Theater Technician Name Role Phone Kassy Jya MD Primary Care Provider [phone] Encounter Details Date Type Department Care Team (Late st Contact Info) Description 04/19/2007 Orders Only [facility] Pediatrics - [facility] [address] [facility] [address] [place] [address] [place] [address] [facility] [address] [place] [address] Social History Tobacco Use Types Packs/Day Years Used Date Smoking Tobacco: Never Assessed Comments Unknown Sex and Gender Information Value Date Recorded Sex Assigned at Not on file Legal Sex Female 4:02 AM ASSISTANT ANALYST Gender Identity Not on file Sexual [...] earache. HISTORY: HPI: Has been vacationing in [place]. Has been swimming. Developed left ear pain [...] CDT Video Visit [facility] Adult Psychiatry [place] [address] [place] [address] [place], Argelia Lopez NP [address] [place] [address] 08/08/2025 7:30 AM ASSISTANT ANALYST Video Visit [facility] Adult Psychiatry [place] [address] [address] [place] [address] Argelia LawARAMIS [address] [address] [place] [address] 09/25/2025 8:00 AM ASSISTANT ANALYST Office Visit [facility] Primary Care - Kirby Herrmann [address] [place] [address] [address] Kassy Jay MD [address] [place] [address] documented as of this encounter Visit Diagnoses Not on filedocumented in this encounter Additional Health Concerns Infection Onset Date Last Indicated Resolved Time R/O COVID-19 06/02/2021 06/03/2021 06/03/2021 7:34 PM CDT R/O COVID-19 12/22/2022 12/22/2022 12/22/2022 12:2 5 PM CDT R/O COVID-19 09/07/2023 09/07/2023 09/07/2023 9:52 PM ASSISTANT ANALYST documented as of this encounter Care Teams Theater Technician Relationship Specialty Start Date End Date Kassy Jay MD [address] [place] [address] [phone] PCP - General Family Practice 12/04/22 documented as of this encounter
--- OUTSIDE RECORDS SUMMARY | 2025-06-22 09:29 | XMS_ITS | Encounter Summary ---
Author Organization [facility] Address [address] [place] [address] Care Team Providers Care Computer Typesetter Name Role Phone Kassy Jay MD Primary Care Provider [phone] Encounter Details Date Type Department Care Team (Late Contact Info) Description 06/30/2007 Outpatient Historical [facility] Pediatrics - [facility] [address] [facility] [address] [place] [address] [place] [address] [address] [place] [address] Social History Tobacco Use Types Packs/Day Years Used Date Smoking Tobacco: Never Assessed Comments Unknown Sex and Gender Information Value Date Recorded Sex Assigned at Not on file Legal Sex Female 4:02 AM PURCHASER Gender Identity Not on file Sexual Orientation Not on file documented as of this encounter Plan of Treatment Upcoming Encounters Date Type Department Care Team (Late Contact Info) Description 06/26/2025 9:00 AM CDT Video Visit [facility] Adult Psychiatry [place] [address] [address] Argelia Law NP [address] [address] 08/08/2025 7:30 AM PURCHASER Video Visit [facility] Adult Psychiatry [place] [address] [address] [place] [address] Argelia Law NP 1420 [facility] [address] [place] [address] 09/25/2025 8:00 AM PURCHASER Office Visit [facility] Primary Care - Kirby Herr[place] [address] [place] [address] [address] Kassy Jay MD [address] [place] [address] documented as of this encounter Visit Diagnoses Not on filedocumented in this encounter Additional Health Concerns Infection Onset Date Last Indicated Resolved Time R/O COVID-19 06/02/2021 06/03/2021 06/03/2021 7:34 PM CDT R/O COVID-19 12/22/2022 12/22/2022 12/22/2022 12:2 5 PM CDT R/O COVID-19 09/07/2023 09/07/2023 09/07/2023 9:52 PM PURCHASER documented as of this encounter Care Teams Computer Typesetter Relationship Specialty Start Date End Date Kassy Jay MD [address] [place] [address] [address] [address] PCP - General Family Practice 12/04/22 documented as of this encounter
--- OUTSIDE RECORDS SUMMARY | 2025-06-22 09:29 | XMS_ITS | Encounter Summary ---
Author Organization [facility] Address [address] [place] [address] Care Team Providers Care Quality Supervisor Name Role Phone Kassy Jay MD Primary Care Provider [phone] Encounter Details Date Type Department Care Team (Latest Contact Info) Description 02/13/2005 Outpatient Historical [facility] Gustavo Sims ASTHMA UNSPECIFIED (Primary Dx) Social History Tobacco Use Types Packs/Day Years Used Date Smoking Tobacco: Never Assessed Comments Unknown Sex and Gender Information Value Date Recorded Sex Assigned at Not on file Legal Sex Female 4:02 AM SENIOR SECURITY ANALYST Gender Identity Not on file Sexual Orientation Not on file documented as of this encounter Plan of Treatment Upcoming Encounters Date Type Department Care Team (Late st Contact Info) Description 06/26/2025 9:00 AM CDT Video Visit [facility] Adult Psychiatry [address] [place] [address] Argelia Law NP [address] [place] [address] [place] [address] 08/08/2025 7:30 AM SENIOR SECURITY ANALYST Video Visit [facility] Adult Psychiatry [address] [place] [address] Argelia Law NP [address] [place] [address] [place] [address] 09/25/2025 8:00 AM SENIOR SECURITY ANALYST Office Visit [facility] Primary Care - Kirby Herrmann [address] [place] [address] [phone] Kassy Jay MD [address] [place] [phone] documented as of this encounter Visit Diagnoses Diagnosis Unspecified asthma(493.90)- Primary Unspecified asthma documented in this encounter Additional Health Concerns Infection Onset Date Last Indicated Resolved Time R/O COVID-19 06/02/2021 06/03/2021 06/03/2021 7:34 PM CDT R/O COVID-19 12/22/2022 12/22/2022 12/22/2022 12:2 5 PM CDT R/O COVID-19 09/07/2023 09/07/2023 09/07/2023 9:52 PM SENIOR SECURITY ANALYST documented as of this encounter Care Teams Quality Supervisor Relationship Specialty Start Date End Date Kassy Jay MD [address] [place] [address] [phone] PCP - General Family Practice 12/04/22 documented as of this encounter
--- OUTSIDE RECORDS SUMMARY | 2025-06-22 09:29 | XMS_ITS | Encounter Summary ---
Author Organization [facility] Address [address] [place] [address] Care Team Providers Care Engraver Seals Name Role Phone Kassy Jay MD Primary Care Provider [phone] Encounter Details Date Type Department Care Team (Late Contact Info) Description 08/01/2003 Outpatient Historical [facility] Pediatrics - [facility] [address] [facility] [address] [place] [address] [place] [address] [facility] [address] [place] [address] Social History Tobacco Use Types Packs/Day Years Used Date Smoking Tobacco: Never Assessed Comments Unknown Sex and Gender Information Value Date Recorded Sex Assigned at Not on file Legal Sex Female 4:02 AM JOB PLACEMENT SPECIALIST Gender Identity Not on file Sexual Orientation Not on file documented as of this encounter Plan of Treatment Upcoming Encounters Date Type Department Care Team (Late Contact Info) Description 06/26/2025 9:00 AM CDT Video Visit [facility] Adult Psychiatry [place] [address] [address] Argelia Law NP [address] [address] 08/08/2025 7:30 AM JOB PLACEMENT SPECIALIST Video Visit [facility] Adult Psychiatry [place] [address] [address] [place] [address] Argelia Law NP 1420 [facility] [address] [place] [address] 09/25/2025 8:00 AM JOB PLACEMENT SPECIALIST Office Visit [facility] Primary Care - Kirby Herrmann [address] [place] [address] [address] Kassy Jay MD [address] [place] [address] [address] documented as of this encounter Visit Diagnoses Not on filedocumented in this encounter Additional Health Concerns Infection Onset Date Last Indicated Resolved Time R/O COVID-19 06/02/2021 06/03/2021 06/03/2021 7:34 PM CDT R/O COVID-19 12/22/2022 12/22/2022 12/22/2022 12:2 5 PM CDT R/O COVID-19 09/07/2023 09/07/2023 09/07/2023 9:52 PM JOB PLACEMENT SPECIALIST documented as of this encounter Care Teams Engraver Seals Relationship Specialty Start Date End Date Kassy Jay MD [address] [place] [address] [address] PCP - General Family Practice 12/04/22 documented as of this encounter
--- OUTSIDE RECORDS SUMMARY | 2025-06-22 09:29 | XMS_ITS | Encounter Summary ---
Author Organization [facility] Address [address] [place] [address] Care Team Providers Care Waterworks Pump Station Operator Name Role Phone Kassy Jay MD Primary Care Provider [phone] Encounter Details Date Type Department Care Team (Late Contact Info) Description 07/18/2004 Outpatient Historical [facility] Pediatrics - [facility] [address] [facility] [address] [place] [address] [place] [address] [facility] [address] [address] [facility] [address] [place] [address] Social History Tobacco Use Types Packs/Day Years Used Date Smoking Tobacco: Never Assessed Comments Unknown Sex and Gender Information Value Date Recorded Sex Assigned at Not on file Legal Sex Female 4:02 AM CAR RENTAL CLERK Gender Identity Not on file Sexual Orientation Not on file documented as of this encounter Plan of Treatment Upcoming Encounters Date Type Department Care Team (Late Contact Info) Description 06/26/2025 9:00 AM CDT Video Visit [facility] Adult Psychiatry [place] [address] [phone] Argelia Law NP [address] [address] 08/08/2025 7:30 AM CAR RENTAL CLERK Video Visit [facility] Adult Psychiatry [place] [address] [address] [place] [address] Argelia Law NP 1420 [facility] [address] [place] [address] 09/25/2025 8:00 AM CAR RENTAL CLERK Office Visit [facility] Primary Care - Kirby Herrmann [address] [place] [address] [address] Kassy Jay MD [address] [place] [address] [address] documented as of this encounter Visit Diagnoses Not on filedocumented in this encounter Additional Health Concerns Infection Onset Date Last Indicated Resolved Time R/O COVID-19 06/02/2021 06/03/2021 06/03/2021 7:34 PM CDT R/O COVID-19 12/22/2022 12/22/2022 12/22/2022 12:2 5 PM CDT R/O COVID-19 09/07/2023 09/07/2023 09/07/2023 9:52 PM CAR RENTAL CLERK documented as of this encounter Care Teams Waterworks Pump Station Operator Relationship Specialty Start Date End Date Kassy Jay MD [address] [place] [address] [address] PCP - General Family Practice 12/04/22 documented as of this encounter
--- OUTSIDE RECORDS SUMMARY | 2025-06-22 09:29 | XMS_ITS | Encounter Summary ---
Author Organization [facility] Address [address] [place] [address] Care Team Providers Care Screen Making Technician Name Role Phone Kassy Jay MD Primary Care Provider [phone] Encounter Details Date Type Department Care Team ([facility] Contact Info) Description 07/03/2007 Outpatient Historical [facility] Pediatrics - [facility] [address] [facility] [address] [place] [address] [place] [address] [facility] [address] [place] [address] Social History Tobacco Use Types Packs/Day Years Used Date Smoking Tobacco: Never Assessed Comments Unknown Sex and Gender Information Value Date Recorded Sex Assigned at Not on file Legal Sex Female 4:02 AM BACKUP ADMINISTRATOR Gender Identity Not on file Sexual [...] [facility] Adult [facility] [place] [address] [address] [place], [place] [address] Argelia Law, [place] [address] [address] [place] [address] 08/08/2025 7:30 AM BACKUP ADMINISTRATOR Video Visit [facility] Adult Psychiatry [place] [address] [address] [place] [address] Argelia Law, [place] [address] [address] [place] [address] 09/25/2025 8:00 AM BACKUP ADMINISTRATOR Office Visit [facility] Primary Care - Kirby Herrmann [address] [place] [address] [address] Kassy Jay MD [address] [place] [address] documented as of this encounter Visit Diagnoses Not on filedocumented in this encounter Additional Health Concerns Infection Onset Date Last Indicated Resolved Time R/O COVID-19 06/02/2021 06/03/2021 06/03/2021 7:34 PM CDT R/O COVID-19 12/22/2022 12/22/2022 12/22/2022 12:2 5 PM CDT R/O COVID-19 09/07/2023 09/07/2023 09/07/2023 9:52 PM BACKUP ADMINISTRATOR documented as of this encounter Care Teams Screen Making Technician Relationship Specialty Start Date End Date Kassy Jay MD [address] [place] [address] PCP - General Family Practice 12/04/22 documented as of this encounter
--- OUTSIDE RECORDS SUMMARY | 2025-06-22 09:29 | XMS_ITS | Encounter Summary ---
Author Organization [facility] Address [address] [place] [address] Care Team Providers Care Polysomnographic Technician Name Role Phone Kassy Jay MD Primary Care Provider [phone] Encounter Details Date Type Department Care Team (Late Contact Info) Description 04/25/2003 Outpatient Historical [facility] Pediatrics - [facility] [address] [facility] [address] [place] [address] [place] [address] [place] [address] Social History Tobacco Use Types Packs/Day Years Used Date Smoking Tobacco: Never Assessed Comments Unknown Sex and Gender Information Value Date Recorded Sex Assigned at Not on file Legal Sex Female 4:02 AM VINEGAR MAKER Gender Identity Not on file Sexual Orientation Not on file documented as of this encounter Plan of Treatment Upcoming Encounters Date Type Department Care Team (Late Contact Info) Description 06/26/2025 9:00 AM CDT Video Visit [facility] Adult Psychiatry [place] [address] [address] Argelia Law NP [address] [address] 08/08/2025 7:30 AM VINEGAR MAKER Video Visit [facility] Adult Psychiatry [place] [address] [address] [place] [address] Argelia Law NP 1420 [facility] [address] [place] [address] 09/25/2025 8:00 AM VINEGAR MAKER Office Visit [facility] Primary Care - Kirby Herrmann [address] [place] [address] [address] Kassy Jay MD [address] [place] [address] [address] documented as of this encounter Visit Diagnoses Not on filedocumented in this encounter Additional Health Concerns Infection Onset Date Last Indicated Resolved Time R/O COVID-19 06/02/2021 06/03/2021 06/03/2021 7:34 PM CDT R/O COVID-19 12/22/2022 12/22/2022 12/22/2022 12:2 5 PM CDT R/O COVID-19 09/07/2023 09/07/2023 09/07/2023 9:52 PM VINEGAR MAKER documented as of this encounter Care Teams Polysomnographic Technician Relationship Specialty Start Date End Date Kassy Jay MD [address] [place] [address] [address] [phone] PCP - General Family Practice 12/04/22 documented as of this encounter
--- OUTSIDE RECORDS SUMMARY | 2025-06-22 09:29 | XMS_ITS | Encounter Summary ---
Author Organization [facility] Address [address] [place] [address] Care Team Providers Care Quality Inspector Name Role Phone Kassy Jay MD Primary Care Provider [phone] Encounter Details Date Type Department Care Team (Late Contact Info) Description 11/08/2004 Outpatient Historical [facility] Pediatrics - [facility] [address] [address] [facility] [address] [place] [address] [place] [address] [facility] [address] [address] [place] [address] Social History Tobacco Use Types Packs/Day Years Used Date Smoking Tobacco: Never Assessed Comments Unknown Sex and Gender Information Value Date Recorded Sex Assigned at Not on file Legal Sex Female 4:02 AM COMMISSION CLERK Gender Identity Not on file Sexual Orientation Not on file documented as of this encounter Plan of Treatment Upcoming Encounters Date Type Department Care Team (Late Contact Info) Description 06/26/2025 9:00 AM CDT Video Visit [facility] Adult Psychiatry [place] [address] [address] Argelia Law NP [address] [address] 08/08/2025 7:30 AM COMMISSION CLERK Video Visit [facility] Adult Psychiatry [place] [address] [place] [address] [address] [place] [address] Argelia Law NP 1420 [facility] [address] [place] [address] 09/25/2025 8:00 AM COMMISSION CLERK Office Visit [facility] Primary Care - Kirby Herrmann [address] [place] [address] [address] [address] Kassy Jay MD [address] [place] [address] [address] documented as of this encounter Visit Diagnoses Not on filedocumented in this encounter Additional Health Concerns Infection Onset Date Last Indicated Resolved Time R/O COVID-19 06/02/2021 06/03/2021 06/03/2021 7:34 PM CDT R/O COVID-19 12/22/2022 12/22/2022 12/22/2022 12:2 5 PM CDT R/O COVID-19 09/07/2023 09/07/2023 09/07/2023 9:52 PM COMMISSION CLERK documented as of this encounter Care Teams Quality Inspector Relationship Specialty Start Date End Date Kassy Jay MD [address] [place] [address] [address] PCP - General Family Practice 12/04/22 documented as of this encounter
--- OUTSIDE RECORDS SUMMARY | 2025-06-22 09:29 | XMS_ITS | Encounter Summary ---
Author Organization [facility] Address [address] [place] [address] Care Team Providers Care Sulfonation Equipment Operator Name Role Phone Kassy Jay MD Primary Care Provider [phone] Encounter Details Date Type Department Care Team (Late Contact Info) Description 02/10/2003 Outpatient Historical [facility] Pediatrics - [facility] [address] [facility] [address] [place] [address] [place] [address] [place] [address] Social History Tobacco Use Types Packs/Day Years Used Date Smoking Tobacco: Never Assessed Comments Unknown Sex and Gender Information Value Date Recorded Sex Assigned at Not on file Legal Sex Female 4:02 AM FLEXOGRAPHIC PRINTING MACHINIST Gender Identity Not on file Sexual Orientation Not on file documented as of this encounter Plan of Treatment Upcoming Encounters Date Type Department Care Team (Late Contact Info) Description 06/26/2025 9:00 AM CDT Video Visit [facility] Adult Psychiatry [place] [address] [address] Argelia Law NP [address] [address] 08/08/2025 7:30 AM FLEXOGRAPHIC PRINTING MACHINIST Video Visit [facility] Adult Psychiatry [place] [address] [address] [address] [place] [address] Argelia Law NP 1420 [facility] [address] [place] [address] 09/25/2025 8:00 AM FLEXOGRAPHIC PRINTING MACHINIST Office Visit [facility] Primary Care - Kirby Herrmann [address] [place] [address] [address] Kassy Jay MD [address] [place] [address] documented as of this encounter Visit Diagnoses Not on filedocumented in this encounter Additional Health Concerns Infection Onset Date Last Indicated Resolved Time R/O COVID-19 06/02/2021 06/03/2021 06/03/2021 7:34 PM CDT R/O COVID-19 12/22/2022 12/22/2022 12/22/2022 12:2 5 PM CDT R/O COVID-19 09/07/2023 09/07/2023 09/07/2023 9:52 PM FLEXOGRAPHIC PRINTING MACHINIST documented as of this encounter Care Teams Sulfonation Equipment Operator Relationship Specialty Start Date End Date Kassy Jay MD [address] [place] [address] [address] PCP - General Family Practice 12/04/22 documented as of this encounter
--- OUTSIDE RECORDS SUMMARY | 2025-06-22 09:29 | XMS_ITS | Encounter Summary ---
Author Organization [facility] Address [address] [place] [address] Care Team Providers Care Cold Strip Roller Name Role Phone Kassy Jya MD Primary Care Provider [phone] Encounter Details Date Type Department Care Team (Late Contact Info) Description 09/02/2004 Outpatient Historical [facility] Pediatrics - [facility] [address] [address] [facility] [address] [place] [address] [place] [address] [facility] [facility] [address] [place] [address] Social History Tobacco Use Types Packs/Day Years Used Date Smoking Tobacco: Never Assessed Comments Unknown Sex and Gender Information Value Date Recorded Sex Assigned at Not on file Legal Sex Female 4:02 AM TUG BOAT CAPTAIN Gender Identity Not on file Sexual Orientation Not on file documented as of this encounter Plan of Treatment Upcoming Encounters Date Type Department Care Team (Late Contact Info) Description 06/26/2025 9:00 AM CDT Video Visit [facility] Adult Psychiatry [place] [address] [address] Argelia Law NP [address] [address] 08/08/2025 7:30 AM TUG BOAT CAPTAIN Video Visit [facility] Adult Psychiatry [place] [address] [address] [place] [address] Argelia Law NP 1420 [facility] [address] [place] [address] 09/25/2025 8:00 AM TUG BOAT CAPTAIN Office Visit [facility] Primary Care - Kirby Herrmann [address] [address] [address] Kassy Jay MD [address] [place] [address] documented as of this encounter Visit Diagnoses Not on filedocumented in this encounter Additional Health Concerns Infection Onset Date Last Indicated Resolved Time R/O COVID-19 06/02/2021 06/03/2021 06/03/2021 7:34 PM CDT R/O COVID-19 12/22/2022 12/22/2022 12/22/2022 12:2 5 PM CDT R/O COVID-19 09/07/2023 09/07/2023 09/07/2023 9:52 PM TUG BOAT CAPTAIN documented as of this encounter Care Teams Cold Strip Roller Relationship Specialty Start Date End Date Kassy Jay MD [address] [place] [address] [address] PCP - General Family Practice 12/04/22 documented as of this encounter
--- OUTSIDE RECORDS SUMMARY | 2025-06-22 09:29 | XMS_ITS | Encounter Summary ---
Author Organization [facility] Address [address] [place] [address] Care Team Providers Care Summer Law Clerk Name Role Phone Kassy Jay MD Primary Care Provider [phone] Encounter Details Date Type Department Care Team (Latest Contact Info) Description 12/15/2003 Outpatient Historical [facility] Gustavo Sims ASTHMA UNSPECIFIED (Primary Dx) Social History Tobacco Use Types Packs/Day Years Used Date Smoking Tobacco: Never Assessed Comments Unknown Sex and Gender Information Value Date Recorded Sex Assigned at Not on file Legal Sex Female 4:02 AM RETAIL LOSS PREVENTION SPECIALIST Gender Identity Not on file Sexual Orientation Not on file documented as of this encounter Plan of Treatment Upcoming Encounters Date Type Department Care Team (Late st Contact Info) Description 06/26/2025 9:00 AM CDT Video Visit [facility] Adult Psychiatry [address] [place] [address] Argelia Law NP [address] [place] [address] [place] [address] 08/08/2025 7:30 AM RETAIL LOSS PREVENTION SPECIALIST Video Visit [facility] Adult Psychiatry [address] [place] [address] Argelia Law NP [address] [place] [address] [place] [address] 09/25/2025 8:00 AM RETAIL LOSS PREVENTION SPECIALIST Office Visit [facility] Primary Care - Kirby Herrmann [address] [place] [phone] Kassy Jay MD [address] [place] [place] [phone] documented as of this encounter Visit Diagnoses Diagnosis Unspecified asthma(493.90)- Primary Unspecified asthma documented in this encounter Additional Health Concerns Infection Onset Date Last Indicated Resolved Time R/O COVID-19 06/02/2021 06/03/2021 06/03/2021 7:34 PM CDT R/O COVID-19 12/22/2022 12/22/2022 12/22/2022 12:2 5 PM CDT R/O COVID-19 09/07/2023 09/07/2023 09/07/2023 9:52 PM RETAIL LOSS PREVENTION SPECIALIST documented as of this encounter Care Teams Summer Law Clerk Relationship Specialty Start Date End Date Kassy Jay MD [address] [place] [phone] PCP - General Family Practice 12/04/22 documented as of this encounter
--- OUTSIDE RECORDS SUMMARY | 2025-06-22 09:29 | XMS_ITS | Encounter Summary ---
Author Organization [facility] Address [address] [place] [address] Care Team Providers Care Steam Generating Powerplant Mechanic Name Role Phone Kassy Jay MD Primary Care Provider [phone] Encounter Details Date Type Department Care Team (Late Contact Info) Description 09/02/2004 Outpatient Historical [facility] Pediatrics - [facility] [address] [facility] [address] [place] [address] [place] [address] [place] [address] Social History Tobacco Use Types Packs/Day Years Used Date Smoking Tobacco: Never Assessed Comments Unknown Sex and Gender Information Value Date Recorded Sex Assigned at Not on file Legal Sex Female 4:02 AM INVENTORY ANALYST Gender Identity Not on file Sexual Orientation Not on file documented as of this encounter Plan of Treatment Upcoming Encounters Date Type Department Care Team (Late Contact Info) Description 06/26/2025 9:00 AM CDT Video Visit [facility] Adult Psychiatry [place] [address] [address] Argelia Law NP [address] [address] 08/08/2025 7:30 AM INVENTORY ANALYST Video Visit [facility] Adult Psychiatry [place] [address] [address] [address] [address] [place] [address] Argelia Law NP 1420 [facility] [address] [place] [address] 09/25/2025 8:00 AM INVENTORY ANALYST Office Visit [facility] Primary Care - Kirby Herr[place] [address] [place] [address] [address] Kassy Jay MD [address] [place] [address] documented as of this encounter Visit Diagnoses Not on filedocumented in this encounter Additional Health Concerns Infection Onset Date Last Indicated Resolved Time R/O COVID-19 06/02/2021 06/03/2021 06/03/2021 7:34 PM CDT R/O COVID-19 12/22/2022 12/22/2022 12/22/2022 12:2 5 PM CDT R/O COVID-19 09/07/2023 09/07/2023 09/07/2023 9:52 PM INVENTORY ANALYST documented as of this encounter Care Teams Steam Generating Powerplant Mechanic Relationship Specialty Start Date End Date Kassy Jay MD [address] [place] [address] [phone] PCP - General Family Practice 12/04/22 documented as of this encounter
--- OUTSIDE RECORDS SUMMARY | 2025-06-22 09:29 | XMS_ITS | Encounter Summary ---
Author Organization [facility] Address [address] [place] [address] Care Team Providers Care Drying Machine Operator Package Yarns Name Role Phone Kassy Jay MD Primary Care Provider [phone] Encounter Details Date Type Department Care Team (Late Contact Info) Description 02/10/2003 Outpatient Historical [facility] Pediatrics - [facility] [address] [place] [address] [place] [address] [place] [address] Social History Tobacco Use Types Packs/Day Years Used Date Smoking Tobacco: Never Assessed Comments Unknown Sex and Gender Information Value Date Recorded Sex Assigned at Not on file Legal Sex Female 4:02 AM ENGINEERING COORDINATOR Gender Identity Not on file Sexual Orientation Not on file documented as of this encounter Plan of Treatment Upcoming Encounters Date Type Department Care Team (Late Contact Info) Description 06/26/2025 9:00 AM CDT Video Visit [facility] Adult Psychiatry [place] [address] [phone] Argelia Law NP [address] [address] 08/08/2025 7:30 AM ENGINEERING COORDINATOR Video Visit [facility] Adult Psychiatry [place] [address] [place] [address] [place] [address] Argelia Law NP 1420 [facility] [address] [place] [address] 09/25/2025 8:00 AM ENGINEERING COORDINATOR Office Visit [facility] Primary Care - Kirby Herrmann [address] [address] [address] Kassy Jay MD [address] [place] [address] [address] documented as of this encounter Visit Diagnoses Not on filedocumented in this encounter Additional Health Concerns Infection Onset Date Last Indicated Resolved Time R/O COVID-19 06/02/2021 06/03/2021 06/03/2021 7:34 PM CDT R/O COVID-19 12/22/2022 12/22/2022 12/22/2022 12:2 5 PM CDT R/O COVID-19 09/07/2023 09/07/2023 09/07/2023 9:52 PM ENGINEERING COORDINATOR documented as of this encounter Care Teams Drying Machine Operator Package Yarns Relationship Specialty Start Date End Date Kassy Jay MD [address] [place] [phone] PCP - General Family Practice 12/04/22 documented as of this encounter
--- OUTSIDE RECORDS SUMMARY | 2025-06-22 09:29 | XMS_ITS | Encounter Summary ---
Author Organization [facility] Address [address] [place] [address] Care Team Providers Care Relief Cook Name Role Phone aKssy Jay MD Primary Care Provider [phone] Encounter Details Date Type Department Care Team (Late Contact Info) Description 10/09/2003 Outpatient Historical [facility] Childrens Respiratory and Sleep Medicine [address] [facility] [address] [address] Gustavo Sims Social History Tobacco Use Types Packs/Day Years Used Date Smoking Tobacco: Never Assessed Comments Unknown Sex and Gender Information Value Date Recorded Sex Assigned at Not on file Legal Sex Female 4:02 AM PILOT SAFETY INSPECTOR Gender Identity Not on file Sexual Orientation Not on file documented as of this encounter Plan of Treatment Upcoming Encounters Date Type Department Care Team ([facility] Contact Info) Description 06/26/2025 9:00 AM CDT Video Visit [facility] Adult Psychiatry [address] [phone] Argelia Law NP [address] [place] [address] 08/08/2025 7:30 AM PILOT SAFETY INSPECTOR Video Visit [facility] Adult Psychiatry [address] [address] Argelia Law NP [address] [place] [address] [place] [address] 09/25/2025 8:00 AM PILOT SAFETY INSPECTOR Office Visit [facility] Primary Care - Kirby Herrmann [address] [place] [address] [address] Kassy Jay MD [address] [place] [place] [address] documented as of this encounter Visit Diagnoses Not on filedocumented in this encounter Additional Health Concerns Infection Onset Date Last Indicated Resolved Time R/O COVID-19 06/02/2021 06/03/2021 06/03/2021 7:34 PM CDT R/O COVID-19 12/22/2022 12/22/2022 12/22/2022 12:2 5 PM CDT R/O COVID-19 09/07/2023 09/07/2023 09/07/2023 9:52 PM PILOT SAFETY INSPECTOR documented as of this encounter Care Teams Relief Cook Relationship Specialty Start Date End Date Kassy Jay MD [address] [phone] PCP - General Family Practice 12/04/22 documented as of this encounter
--- OUTSIDE RECORDS SUMMARY | 2025-06-22 09:29 | XMS_ITS | Encounter Summary ---
Author Organization [facility] Address [address] [place] [address] Care Team Providers Care Sqe Name Role Phone Kassy Jay MD Primary Care Provider [phone] Encounter Details Date Type Department Care Team (Late Contact Info) Description 03/15/2002 Outpatient Historical [facility] Pediatrics - [facility] [address] [facility] [address] [place] [address] [place] [address] [place] [address] Social History Tobacco Use Types Packs/Day Years Used Date Smoking Tobacco: Never Assessed Comments Unknown Sex and Gender Information Value Date Recorded Sex Assigned at Not on file Legal Sex Female 4:02 AM STEWARD/STEWARDESS Gender Identity Not on file Sexual Orientation Not on file documented as of this encounter Plan of Treatment Upcoming Encounters Date Type Department Care Team (Late Contact Info) Description 06/26/2025 9:00 AM CDT Video Visit [facility] Adult Psychiatry [place] [address] [phone] Argelia Law NP [address] [address] 08/08/2025 7:30 AM STEWARD/STEWARDESS Video Visit [facility] Adult Psychiatry [place] [address] [place] [address] [address] [place] [address] Argelia Law NP 1420 [facility] [address] [place] [address] [address] 09/25/2025 8:00 AM STEWARD/STEWARDESS Office Visit [facility] Primary Care - Kirby Herrmann [address] [place] [address] [address] Kassy Jay MD [address] [place] [address] documented as of this encounter Visit Diagnoses Not on filedocumented in this encounter Additional Health Concerns Infection Onset Date Last Indicated Resolved Time R/O COVID-19 06/02/2021 06/03/2021 06/03/2021 7:34 PM CDT R/O COVID-19 12/22/2022 12/22/2022 12/22/2022 12:2 5 PM CDT R/O COVID-19 09/07/2023 09/07/2023 09/07/2023 9:52 PM STEWARD/STEWARDESS documented as of this encounter Care Teams Sqe Relationship Specialty Start Date End Date Kassy Jay MD [address] [place] [address] [phone] PCP - General Family Practice 12/04/22 documented as of this encounter
--- OUTSIDE RECORDS SUMMARY | 2025-06-22 09:29 | XMS_ITS | Encounter Summary ---
Author Organization [facility] Address [address] [place] [address] Care Team Providers Care Print Binding And Finishing Worker Name Role Phone Kassy Jay MD Primary Care Provider [phone] Encounter Details Date Type Department Care Team (Late Contact Info) Description 07/06/2002 Outpatient Historical [facility] Pediatrics - [facility] [address] [facility] [address] [place] [address] [place] [address] [place] [address] Social History Tobacco Use Types Packs/Day Years Used Date Smoking Tobacco: Never Assessed Comments Unknown Sex and Gender Information Value Date Recorded Sex Assigned at Not on file Legal Sex Female 4:02 AM MARRIAGE AND FAMILY TEACHER Gender Identity Not on file Sexual Orientation Not on file documented as of this encounter Plan of Treatment Upcoming Encounters Date Type Department Care Team (Late Contact Info) Description 06/26/2025 9:00 AM CDT Video Visit [facility] Adult Psychiatry [place] [address] [phone] Argelia Law NP [address] [address] 08/08/2025 7:30 AM MARRIAGE AND FAMILY TEACHER Video Visit [facility] Adult Psychiatry [place] [address] [address] [place] [address] Argelia Law NP 1420 [facility] [address] [place] [address] 09/25/2025 8:00 AM MARRIAGE AND FAMILY TEACHER Office Visit [facility] Primary Care - Kirby Herrmann [address] [address] [address] Kassy Jay MD [address] [place] [address] documented as of this encounter Visit Diagnoses Not on filedocumented in this encounter Additional Health Concerns Infection Onset Date Last Indicated Resolved Time R/O COVID-19 06/02/2021 06/03/2021 06/03/2021 7:34 PM CDT R/O COVID-19 12/22/2022 12/22/2022 12/22/2022 12:2 5 PM CDT R/O COVID-19 09/07/2023 09/07/2023 09/07/2023 9:52 PM MARRIAGE AND FAMILY TEACHER documented as of this encounter Care Teams Print Binding And Finishing Worker Relationship Specialty Start Date End Date Kassy Jay MD [address] [place] [address] [phone] PCP - General Family Practice 12/04/22 documented as of this encounter
--- OUTSIDE RECORDS SUMMARY | 2025-06-22 09:29 | XMS_ITS | Encounter Summary ---
Author Organization [facility] Address [address] [place] [address] Care Team Providers Care Senior Cisco Network Engineer Name Role Phone Kassy Jay MD Primary Care Provider [phone] Encounter Details Date Type Department Care Team (Late Contact Info) Description 10/07/2002 Outpatient Historical [facility] Pediatrics - [facility] [address] [facility] [address] [place] [address] [place] [address] [place] [address] Social History Tobacco Use Types Packs/Day Years Used Date Smoking Tobacco: Never Assessed Comments Unknown Sex and Gender Information Value Date Recorded Sex Assigned at Not on file Legal Sex Female 4:02 AM RUBBER FACTORY WORKER Gender Identity Not on file Sexual Orientation Not on file documented as of this encounter Plan of Treatment Upcoming Encounters Date Type Department Care Team (Late Contact Info) Description 06/26/2025 9:00 AM CDT Video Visit [facility] Adult Psychiatry [place] [address] [phone] Argelia Law NP [address] [address] 08/08/2025 7:30 AM RUBBER FACTORY WORKER Video Visit [facility] Adult Psychiatry [place] [address] [address] [address] [address] Argelia Law NP 1420 [facility] [address] [place] [address] 09/25/2025 8:00 AM RUBBER FACTORY WORKER Office Visit [facility] Primary Care - Kirby Herrmann [address] [address] [address] Kassy Jay MD [address] [place] [address] documented as of this encounter Visit Diagnoses Not on filedocumented in this encounter Additional Health Concerns Infection Onset Date Last Indicated Resolved Time R/O COVID-19 06/02/2021 06/03/2021 06/03/2021 7:34 PM CDT R/O COVID-19 12/22/2022 12/22/2022 12/22/2022 12:2 5 PM CDT R/O COVID-19 09/07/2023 09/07/2023 09/07/2023 9:52 PM RUBBER FACTORY WORKER documented as of this encounter Care Teams Senior Cisco Network Engineer Relationship Specialty Start Date End Date Kassy Jay MD [address] [place] [address] [phone] PCP - General Family Practice 12/04/22 documented as of this encounter
--- OUTSIDE RECORDS SUMMARY | 2025-06-22 09:29 | XMS_ITS | Encounter Summary ---
Author Organization [facility] Address [address] [place] [address] Care Team Providers Care Material Processor Name Role Phone Kassy Jay MD Primary Care Provider [phone] Encounter Details Date Type Department Care Team (Late Contact Info) Description 05/02/2002 Outpatient Historical [facility] Pediatrics - [facility] [address] [place] [address] [place] [address] [place] [address] Social History Tobacco Use Types Packs/Day Years Used Date Smoking Tobacco: Never Assessed Comments Unknown Sex and Gender Information Value Date Recorded Sex Assigned at Not on file Legal Sex Female 4:02 AM SUBSCRIPTION CREW LEADER Gender Identity Not on file Sexual Orientation Not on file documented as of this encounter Plan of Treatment Upcoming Encounters Date Type Department Care Team (Late Contact Info) Description 06/26/2025 9:00 AM CDT Video Visit [facility] Adult Psychiatry [place] [address] [phone] Argelia Law NP [address] [address] 08/08/2025 7:30 AM SUBSCRIPTION CREW LEADER Video Visit [facility] Adult Psychiatry [place] [address] [address] [place] [address] [address] Argelia Law NP 1420 [facility] [address] [place] [address] 09/25/2025 8:00 AM SUBSCRIPTION CREW LEADER Office Visit [facility] Primary Care - Kirby Herrmann [address] [place] [address] [address] Kassy Jay MD [address] [place] [address] [address] documented as of this encounter Visit Diagnoses Not on filedocumented in this encounter Additional Health Concerns Infection Onset Date Last Indicated Resolved Time R/O COVID-19 06/02/2021 06/03/2021 06/03/2021 7:34 PM CDT R/O COVID-19 12/22/2022 12/22/2022 12/22/2022 12:2 5 PM CDT R/O COVID-19 09/07/2023 09/07/2023 09/07/2023 9:52 PM SUBSCRIPTION CREW LEADER documented as of this encounter Care Teams Material Processor Relationship Specialty Start Date End Date Kassy Jay MD [address] [place] [address] [phone] PCP - General Family Practice 12/04/22 documented as of this encounter
--- OUTSIDE RECORDS SUMMARY | 2025-06-22 09:29 | XMS_ITS | Encounter Summary ---
Author Organization [facility] Address [address] [place] [address] Care Team Providers Care Product Safety Officer Name Role Phone Kasys Jay MD Primary Care Provider [phone] Encounter Details Date Type Department Care Team (Late Contact Info) Description 12/15/2003 Outpatient Historical [facility] Childrens Respiratory and Sleep Medicine [address] [facility] [address] [address] Gustavo Sims Social History Tobacco Use Types Packs/Day Years Used Date Smoking Tobacco: Never Assessed Comments Unknown Sex and Gender Information Value Date Recorded Sex Assigned at Not on file Legal Sex Female 4:02 AM HEARING AND SPEECH ASSISTANT Gender Identity Not on file Sexual Orientation Not on file documented as of this encounter Plan of Treatment Upcoming Encounters Date Type Department Care Team ([facility] [address] Contact Info) Description 06/26/2025 9:00 AM CDT Video Visit [facility] Adult Psychiatry [address] [phone] Argelia Law NP [address] [place] [address] 08/08/2025 7:30 AM HEARING AND SPEECH ASSISTANT Video Visit [facility] Adult Psychiatry [address] [address] Argelia Law NP [address] [place] [address] [place] [address] 09/25/2025 8:00 AM HEARING AND SPEECH ASSISTANT Office Visit [facility] Primary Care - Kirby Herrmann [address] [place] [address] [address] Kassy Jay MD [address] [place] [address] documented as of this encounter Visit Diagnoses Not on filedocumented in this encounter Additional Health Concerns Infection Onset Date Last Indicated Resolved Time R/O COVID-19 06/02/2021 06/03/2021 06/03/2021 7:34 PM CDT R/O COVID-19 12/22/2022 12/22/2022 12/22/2022 12:2 5 PM CDT R/O COVID-19 09/07/2023 09/07/2023 09/07/2023 9:52 PM HEARING AND SPEECH ASSISTANT documented as of this encounter Care Teams Product Safety Officer Relationship Specialty Start Date End Date Kassy Jay MD [address] [phone] PCP - General Family Practice 12/04/22 documented as of this encounter
[2025-06-22] MEDS: LACTATED RINGERS 1,000 ML 999 ML IV CONT (09:30)
--- OUTSIDE RECORDS SUMMARY | 2025-06-22 09:30 | XMS_ITS | Encounter Summary ---
Author Organization [facility] Address [address] [place] [address] Care Team Providers Care Operation Specialist Name Role Phone Kassy Jay MD Primary Care Provider [phone] Encounter Details Date Type Department Care Team (Late Contact Info) Description 11/23/2000 Outpatient Historical [facility] Pediatrics - [facility] [address] [facility] [address] [place] [address] [place] [address] [place] [address] Social History Tobacco Use Types Packs/Day Years Used Date Smoking Tobacco: Never Assessed Comments Unknown Sex and Gender Information Value Date Recorded Sex Assigned at Not on file Legal Sex Female 4:02 AM BOWLING ALLEY OPERATOR Gender Identity Not on file Sexual Orientation Not on file documented as of this encounter Plan of Treatment Upcoming Encounters Date Type Department Care Team (Late Contact Info) Description 06/26/2025 9:00 AM CDT Video Visit [facility] Adult Psychiatry [place] [address] [phone] Argelia Law NP [address] [address] 08/08/2025 7:30 AM BOWLING ALLEY OPERATOR Video Visit [facility] Adult Psychiatry [place] [address] [address] [place] [address] [address] Argelia Law NP 1420 [facility] [address] [place] [address] 09/25/2025 8:00 AM BOWLING ALLEY OPERATOR Office Visit [facility] Primary Care - Kirby Herrmann [address] [place] [address] [address] [address] Kassy Jay MD [address] [place] [address] [phone] documented as of this encounter Visit Diagnoses Not on filedocumented in this encounter Additional Health Concerns Infection Onset Date Last Indicated Resolved Time R/O COVID-19 06/02/2021 06/03/2021 06/03/2021 7:34 PM CDT R/O COVID-19 12/22/2022 12/22/2022 12/22/2022 12:2 5 PM CDT R/O COVID-19 09/07/2023 09/07/2023 09/07/2023 9:52 PM BOWLING ALLEY OPERATOR documented as of this encounter Care Teams Operation Specialist Relationship Specialty Start Date End Date Kassy Jay MD [address] [place] [address] [address] PCP - General Family Practice 12/04/22 documented as of this encounter
--- OUTSIDE RECORDS SUMMARY | 2025-06-22 09:30 | XMS_ITS | Encounter Summary ---
Author Organization [facility] Address [address] [place] [address] Care Team Providers Care Filing And Polishing Supervisor Name Role Phone Kassy Jay MD Primary Care Provider [phone] Encounter Details Date Type Department Care Team (Late Contact Info) Description 03/29/2001 Outpatient Historical [facility] Pediatrics - [facility] [address] [facility] [address] [place] [address] [place] [address] [place] [address] Social History Tobacco Use Types Packs/Day Years Used Date Smoking Tobacco: Never Assessed Comments Unknown Sex and Gender Information Value Date Recorded Sex Assigned at Not on file Legal Sex Female 4:02 AM SAFETY SITTER Gender Identity Not on file Sexual Orientation Not on file documented as of this encounter Plan of Treatment Upcoming Encounters Date Type Department Care Team (Late Contact Info) Description 06/26/2025 9:00 AM CDT Video Visit [facility] Adult Psychiatry [place] [address] [phone] Argelia Law NP [address] [address] 08/08/2025 7:30 AM SAFETY SITTER Video Visit [facility] Adult Psychiatry [place] [address] [address] [address] [place] [phone] Argelia Law NP 1420 [facility] [address] [place] [address] 09/25/2025 8:00 AM SAFETY SITTER Office Visit [facility] Primary Care - Kirby Herrmann [address] [place] [address] Kassy Jay MD [address] [place] [address] [address] documented as of this encounter Visit Diagnoses Not on filedocumented in this encounter Additional Health Concerns Infection Onset Date Last Indicated Resolved Time R/O COVID-19 06/02/2021 06/03/2021 06/03/2021 7:34 PM CDT R/O COVID-19 12/22/2022 12/22/2022 12/22/2022 12:2 5 PM CDT R/O COVID-19 09/07/2023 09/07/2023 09/07/2023 9:52 PM SAFETY SITTER documented as of this encounter Care Teams Filing And Polishing Supervisor Relationship Specialty Start Date End Date Kassy Jay MD [address] [place] [address] [phone] PCP - General Family Practice 12/04/22 documented as of this encounter
--- OUTSIDE RECORDS SUMMARY | 2025-06-22 09:30 | XMS_ITS | Encounter Summary ---
Author Organization [facility] Address [address] [place] [address] Care Team Providers Care Fire Protection Inspector Name Role Phone Kassy Jay MD Primary Care Provider [phone] Encounter Details Date Type Department Care Team (Late Contact Info) Description 05/16/2006 Outpatient Historical [facility] Pediatrics - [facility] [address] [place] [address] [place] [address] [place] [address] Social History Tobacco Use Types Packs/Day Years Used Date Smoking Tobacco: Never Assessed Comments Unknown Sex and Gender Information Value Date Recorded Sex Assigned at Not on file Legal Sex Female 4:02 AM TRANSFER MAN Gender Identity Not on file Sexual Orientation Not on file documented as of this encounter Plan of Treatment Upcoming Encounters Date Type Department Care Team (Late Contact Info) Description 06/26/2025 9:00 AM CDT Video Visit [facility] Adult Psychiatry [place] [address] [phone] Argelia Law NP [address] [address] 08/08/2025 7:30 AM TRANSFER MAN Video Visit [facility] Adult Psychiatry [place] [address] [place] [address] [place] [address] Argelia Law NP 1420 [facility] [address] [place] [address] 09/25/2025 8:00 AM TRANSFER MAN Office Visit [facility] Primary Care - Kirby Herr[place] [address] [place] [address] Kassy Jay MD [address] [place] [address] documented as of this encounter Visit Diagnoses Not on filedocumented in this encounter Additional Health Concerns Infection Onset Date Last Indicated Resolved Time R/O COVID-19 06/02/2021 06/03/2021 06/03/2021 7:34 PM CDT R/O COVID-19 12/22/2022 12/22/2022 12/22/2022 12:2 5 PM CDT R/O COVID-19 09/07/2023 09/07/2023 09/07/2023 9:52 PM TRANSFER MAN documented as of this encounter Care Teams Fire Protection Inspector Relationship Specialty Start Date End Date Kassy Jay MD [address] [place] [address] PCP - General Family Practice 12/04/22 documented as of this encounter
--- OUTSIDE RECORDS SUMMARY | 2025-06-22 09:30 | XMS_ITS | Encounter Summary ---
Author Organization [facility] Address [address] [place] [address] Care Team Providers Care Fur Ironer Name Role Phone Kassy Jay MD Primary Care Provider [phone] Encounter Details Date Type Department Care Team (Late st Contact Info) Description 09/11/2006 Orders Only [facility] Pediatrics - [facility] [address] [place] [address] [place] [address] [facility] [address] [place] [address] Social History Tobacco Use Types Packs/Day Years Used Date Smoking Tobacco: Never Assessed Comments Unknown Sex and Gender Information Value Date Recorded Sex Assigned at Not on file Legal Sex Female 4:02 AM DIVISION SERVICE MANAGER Gender Identity Not on file Sexual Orientation Not on file documented as of this encounter Progress Notes * Lacie Malik MD - 07/05/2008 4:31 AM CDT PATIENT'S AGE: 6 yrs, 6 mths, 2 wks, 1 day VITALS: TEMP: 98??f Oral PULSE: 88 Apical, Regular RESPIRATIONS: 20. WEIGHT: [id number] NURSE NAME: Jesusita Williamson L ACCOMPANIED BY: [...] 06/26/2025 9:00 AM CDT Video Visit [facility] Adult Psychiatry [place] [address] [place] [address] [place] [address] Argelia Law, [place] [address] [address] [place] [address] 08/08/2025 7:30 AM DIVISION SERVICE MANAGER Video Visit [facility] Adult Psychiatry [place] [address] [address] [place], [place] [address] Argelia Law NP [address] [place] [address] [place], [place] [address] 09/25/2025 8:00 AM DIVISION SERVICE MANAGER Office Visit [facility] Primary Care - Kirby Herrmann [address] [place] [address] Kassy Jay MD [address] [place] [address] documented as of this encounter Visit Diagnoses Not on filedocumented in this encounter Additional Health Concerns Infection Onset Date Last Indicated Resolved Time R/O COVID-19 06/02/2021 06/03/2021 06/03/2021 7:34 PM CDT R/O COVID-19 12/22/2022 12/22/2022 12/22/2022 12:2 5 PM CDT R/O COVID-19 09/07/2023 09/07/2023 09/07/2023 9:52 PM DIVISION SERVICE MANAGER documented as of this encounter Care Teams Fur Ironer Relationship Specialty Start Date End Date Kassy Jay MD [address] [place] [address] PCP - General Family Practice 12/04/22 documented as of this encounter
--- OUTSIDE RECORDS SUMMARY | 2025-06-22 09:30 | XMS_ITS | Encounter Summary ---
Author Organization [facility] Address [address] [place] [address] Care Team Providers Care Newspaper Photographer Name Role Phone Kassy Jay MD Primary Care Provider [phone] Encounter Details Date Type Department Care Team (Late Contact Info) Description 05/16/2006 Outpatient Historical [facility] Pediatrics - [facility] [address] [facility] [address] [place] [address] [place] [address] [place] [address] Social History Tobacco Use Types Packs/Day Years Used Date Smoking Tobacco: Never Assessed Comments Unknown Sex and Gender Information Value Date Recorded Sex Assigned at Not on file Legal Sex Female 4:02 AM ELECTRIC STOVE MECHANIC Gender Identity Not on file Sexual Orientation Not on file documented as of this encounter Plan of Treatment Upcoming Encounters Date Type Department Care Team (Late Contact Info) Description 06/26/2025 9:00 AM CDT Video Visit [facility] Adult Psychiatry [place] [address] [phone] Argelia Law NP [address] [address] 08/08/2025 7:30 AM ELECTRIC STOVE MECHANIC Video Visit [facility] Adult Psychiatry [place] [address] [place] [address] [place] [address] Argelia Law NP 1420 [facility] 61 [place] [address] 09/25/2025 8:00 AM ELECTRIC STOVE MECHANIC Office Visit [facility] Primary Care - Kirby Herrmann [address] [place] [address] Kassy Jay MD [address] [place] [address] documented as of this encounter Visit Diagnoses Not on filedocumented in this encounter Additional Health Concerns Infection Onset Date Last Indicated Resolved Time R/O COVID-19 06/02/2021 06/03/2021 06/03/2021 7:34 PM CDT R/O COVID-19 12/22/2022 12/22/2022 12/22/2022 12:2 5 PM CDT R/O COVID-19 09/07/2023 09/07/2023 09/07/2023 9:52 PM ELECTRIC STOVE MECHANIC documented as of this encounter Care Teams Newspaper Photographer Relationship Specialty Start Date End Date Kassy Jay MD [address] [place] [address] [address] PCP - General Family Practice 12/04/22 documented as of this encounter
--- OUTSIDE RECORDS SUMMARY | 2025-06-22 09:30 | XMS_ITS | Encounter Summary ---
Author Organization [facility] Address [address] [place] [address] Care Team Providers Care Hadoop Consultant Name Role Phone Kassy Jay MD Primary Care Provider [phone] Encounter Details Date Type Department Care Team (Late Contact Info) Description 07/21/2005 Outpatient Historical [facility] Pediatrics - [facility] [address] [place] [address] [place] [address] [place] [address] Social History Tobacco Use Types Packs/Day Years Used Date Smoking Tobacco: Never Assessed Comments Unknown Sex and Gender Information Value Date Recorded Sex Assigned at Not on file Legal Sex Female 4:02 AM PELT DROPPER Gender Identity Not on file Sexual Orientation Not on file documented as of this encounter Plan of Treatment Upcoming Encounters Date Type Department Care Team (Late Contact Info) Description 06/26/2025 9:00 AM CDT Video Visit [facility] Adult Psychiatry [place] [address] [phone] Argelia Law NP [address] [address] 08/08/2025 7:30 AM PELT DROPPER Video Visit [facility] Adult Psychiatry [place] [address] [place] [address] [address] [place] [address] Argelia Law NP 1420 [facility] 61 [place] [address] 09/25/2025 8:00 AM PELT DROPPER Office Visit [facility] Primary Care - Kirby Herrmann [address] [place] [address] Kassy Jay MD [address] [place] [address] [address] documented as of this encounter Visit Diagnoses Not on filedocumented in this encounter Additional Health Concerns Infection Onset Date Last Indicated Resolved Time R/O COVID-19 06/02/2021 06/03/2021 06/03/2021 7:34 PM CDT R/O COVID-19 12/22/2022 12/22/2022 12/22/2022 12:2 5 PM CDT R/O COVID-19 09/07/2023 09/07/2023 09/07/2023 9:52 PM PELT DROPPER documented as of this encounter Care Teams Hadoop Consultant Relationship Specialty Start Date End Date Kassy Jay MD [address] [place] [address] [address] PCP - General Family Practice 12/04/22 documented as of this encounter
--- OUTSIDE RECORDS SUMMARY | 2025-06-22 09:30 | XMS_ITS | Encounter Summary ---
Author Organization [facility] Address [address] [place] [address] Care Team Providers Care Security Officer Name Role Phone Kassy Jay MD Primary Care Provider [phone] Encounter Details Date Type Department Care Team (Late Contact Info) Description 07/18/2005 Outpatient Historical [facility] Pediatrics - [facility] [address] [facility] [address] [place] [address] [place] [address] [place] [address] Social History Tobacco Use Types Packs/Day Years Used Date Smoking Tobacco: Never Assessed Comments Unknown Sex and Gender Information Value Date Recorded Sex Assigned at Not on file Legal Sex Female 4:02 AM VACCINE CUSTOMER REPRESENTATIVE Gender Identity Not on file Sexual Orientation Not on file documented as of this encounter Plan of Treatment Upcoming Encounters Date Type Department Care Team (Late Contact Info) Description 06/26/2025 9:00 AM CDT Video Visit [facility] Adult Psychiatry [place] [address] [phone] Argelia Law NP [address] [address] 08/08/2025 7:30 AM VACCINE CUSTOMER REPRESENTATIVE Video Visit [facility] Adult Psychiatry [place] [address] [place] [address] [place] [address] Argelia Law NP 1420 [facility] 61 [place] [address] 09/25/2025 8:00 AM VACCINE CUSTOMER REPRESENTATIVE Office Visit [facility] Primary Care - Kirby Herrmann [address] [place] [address] Kassy Jay MD [address] [place] [address] documented as of this encounter Visit Diagnoses Not on filedocumented in this encounter Additional Health Concerns Infection Onset Date Last Indicated Resolved Time R/O COVID-19 06/02/2021 06/03/2021 06/03/2021 7:34 PM CDT R/O COVID-19 12/22/2022 12/22/2022 12/22/2022 12:2 5 PM CDT R/O COVID-19 09/07/2023 09/07/2023 09/07/2023 9:52 PM VACCINE CUSTOMER REPRESENTATIVE documented as of this encounter Care Teams Security Officer Relationship Specialty Start Date End Date Kassy Jay MD [address] [place] [address] [address] PCP - General Family Practice 12/04/22 documented as of this encounter
--- OUTSIDE RECORDS SUMMARY | 2025-06-22 09:30 | XMS_ITS | Encounter Summary ---
Author Organization [facility] Address [address] [place] [address] Care Team Providers Care Weight Trainer Name Role Phone Kassy Jay MD Primary Care Provider [phone] Encounter Details Date Type Department Care Team (Latest Contact Info) Description 09/04/2005 Outpatient Historical [facility] Gustavo Sims EXTRINSIC ASTHMA UNSPECIFIED (Primary Dx) Social History Tobacco Use Types Packs/Day Years Used Date Smoking Tobacco: Never Assessed Comments Unknown Sex and Gender Information Value Date Recorded Sex Assigned at Not on file Legal Sex Female 4:02 AM INTERNAL SALES ENGINEER Gender Identity Not on file Sexual Orientation Not on file documented as of this encounter Plan of Treatment Upcoming Encounters Date Type Department Care Team (Late st Contact Info) Description 06/26/2025 9:00 AM CDT Video Visit [facility] Adult [place]iatry [address] [place] [address] Argelia Law NP [address] [place], [place] [address] [address] 08/08/2025 7:30 AM INTERNAL SALES ENGINEER Video Visit [facility] Adult Psychiatry [address] [place] [address] Argelia Law NP [address] [place], [place] [address] [address] 09/25/2025 8:00 AM INTERNAL SALES ENGINEER Office Visit [facility] Primary Care - Kirby Herrmann [address] [place] [address] Kassy Jay MD [address] [place] [phone] documented as of this encounter Visit Diagnoses Diagnosis Extrinsic asthma, unspecified- Primary documented in this encounter Additional Health Concerns Infection Onset Date Last Indicated Resolved Time R/O COVID-19 06/02/2021 06/03/2021 06/03/2021 7:34 PM CDT R/O COVID-19 12/22/2022 12/22/2022 12/22/2022 12:2 5 PM CDT R/O COVID-19 09/07/2023 09/07/2023 09/07/2023 9:52 PM INTERNAL SALES ENGINEER documented as of this encounter Care Teams Weight Trainer Relationship Specialty Start Date End Date Kassy Jay MD [address] [place] [address] PCP - General Family Practice 12/04/22 documented as of this encounter
--- OUTSIDE RECORDS SUMMARY | 2025-06-22 09:30 | XMS_ITS | Encounter Summary ---
Author Organization [facility] Address [address] [place] [address] Care Team Providers Care English As A Second Language Teacher Name Role Phone Kassy Jay MD Primary Care Provider [phone] Encounter Details Date Type Department Care Team (Late st Contact Info) Description 04/28/2006 Orders Only [facility] Pediatrics - [facility] [address] [facility] [address] [place] [address] [place] [address] [facility] [address] [place] [address] Social History Tobacco Use Types Packs/Day Years Used Date Smoking Tobacco: Never Assessed Comments Unknown Sex and Gender Information Value Date Recorded Sex Assigned at Not on file Legal Sex Female 4:02 AM ABRASIVE MIXER HELPER Gender Identity Not on file Sexual Orientation Not on file documented as of this encounter Progress Notes * Lacie Malik MD - 06/29/2008 9:55 PM CDT TIME:10:41 am PATIENT`S HOME PHONE: PATIENT`S WORK PHONE: PATIENT`S INSURANCE: [facility] WHO TOOK THE CALL: Alana Ba A [...] Visit [facility] Adult Psychiatry [address] [address] Argelia Law NP [address] [place] [address] 08/08/2025 7:30 AM ABRASIVE MIXER HELPER Video Visit [facility] Adult Psychiatry [address] [address] Argelia Law NP [address] [place] [address] 09/25/2025 8:00 AM ABRASIVE MIXER HELPER Office Visit [facility] Primary [place] [address] Kassy Jay MD [address] [place] [address] documented as of this encounter Visit Diagnoses Not on filedocumented in this encounter Additional Health Concerns Infection Onset Date Last Indicated Resolved Time R/O COVID-19 06/02/2021 06/03/2021 06/03/2021 7:34 PM CDT R/O COVID-19 12/22/2022 12/22/2022 12/22/2022 12:2 5 PM CDT R/O COVID-19 09/07/2023 09/07/2023 09/07/2023 9:52 PM ABRASIVE MIXER HELPER documented as of this encounter Care Teams English As A Second Language Teacher Relationship Specialty Start Date End Date Kassy Jay MD [address] [place] [phone] PCP - General Family Practice 12/04/22 documented as of this encounter
--- OUTSIDE RECORDS SUMMARY | 2025-06-22 09:30 | XMS_ITS | Encounter Summary ---
Author Organization [facility] Address [address] [place] [address] Care Team Providers Care Healthcare Analyst Name Role Phone Kassy Jay MD Primary Care Provider [phone] Encounter Details Date Type Department Care Team (Late Contact Info) Description 01/01/2006 Outpatient Historical [facility] [address] [facility] [address] [address] Gustavo Sims Social History Tobacco Use Types Packs/Day Years Used Date Smoking Tobacco: Never Assessed Comments Unknown Sex and Gender Information Value Date Recorded Sex Assigned at Not on file Legal Sex Female 4:02 AM PHOTOENGRAVING PROOFER APPRENTICE Gender Identity Not on file Sexual Orientation Not on file documented as of this encounter Plan of Treatment Upcoming Encounters Date Type Department Care Team ([facility] Contact Info) Description 06/26/2025 9:00 AM CDT Video Visit [facility] Adult Psychiatry [address] [phone] Argelia Law NP [address] [place] [address] 08/08/2025 7:30 AM PHOTOENGRAVING PROOFER APPRENTICE Video Visit [facility] Adult Psychiatry [address] [address] Argelia Law NP [address] [place] [address] [place] [address] 09/25/2025 8:00 AM PHOTOENGRAVING PROOFER APPRENTICE Office Visit [facility] Primary Care - Kirby Herrmann [address] [place] [address] Kassy Jay MD [address] [place] [address] [address] documented as of this encounter Visit Diagnoses Not on filedocumented in this encounter Additional Health Concerns Infection Onset Date Last Indicated Resolved Time R/O COVID-19 06/02/2021 06/03/2021 06/03/2021 7:34 PM CDT R/O COVID-19 12/22/2022 12/22/2022 12/22/2022 12:2 5 PM CDT R/O COVID-19 09/07/2023 09/07/2023 09/07/2023 9:52 PM PHOTOENGRAVING PROOFER APPRENTICE documented as of this encounter Care Teams Healthcare Analyst Relationship Specialty Start Date End Date Kassy Jay MD [address] [phone] PCP - General Family Practice 12/04/22 documented as of this encounter
--- OUTSIDE RECORDS SUMMARY | 2025-06-22 09:30 | XMS_ITS | Encounter Summary ---
Author Organization [facility] Address [address] [place] [address] Care Team Providers Care Wash House Worker Name Role Phone Kassy Jay MD Primary Care Provider [phone] Encounter Details Date Type Department Care Team (Late Contact Info) Description 01/21/2006 Outpatient Historical [facility] Pediatrics - [facility] [address] [facility] [address] [place] [address] [place] [address] [place] [address] Social History Tobacco Use Types Packs/Day Years Used Date Smoking Tobacco: Never Assessed Comments Unknown Sex and Gender Information Value Date Recorded Sex Assigned at Not on file Legal Sex Female 4:02 AM NEON GLASS BENDER Gender Identity Not on file Sexual Orientation Not on file documented as of this encounter Plan of Treatment Upcoming Encounters Date Type Department Care Team (Late Contact Info) Description 06/26/2025 9:00 AM CDT Video Visit [facility] Adult Psychiatry [place] [address] [phone] Argelia Law NP [address] [address] 08/08/2025 7:30 AM NEON GLASS BENDER Video Visit [facility] Adult Psychiatry [place] [address] [place] [address] [address] [place] [address] Argelia Law NP 1420 [facility] [address] [place] [address] 09/25/2025 8:00 AM NEON GLASS BENDER Office Visit [facility] Primary Care - Kirby Herrmann [address] [place] [address] Kassy Jay MD [address] [place] [address] [address] documented as of this encounter Visit Diagnoses Not on filedocumented in this encounter Additional Health Concerns Infection Onset Date Last Indicated Resolved Time R/O COVID-19 06/02/2021 06/03/2021 06/03/2021 7:34 PM CDT R/O COVID-19 12/22/2022 12/22/2022 12/22/2022 12:2 5 PM CDT R/O COVID-19 09/07/2023 09/07/2023 09/07/2023 9:52 PM NEON GLASS BENDER documented as of this encounter Care Teams Wash House Worker Relationship Specialty Start Date End Date Kassy Jay MD [address] [place] [address] [address] PCP - General Family Practice 12/04/22 documented as of this encounter
--- OUTSIDE RECORDS SUMMARY | 2025-06-22 09:30 | XMS_ITS | Encounter Summary ---
Author Organization [facility] Address [address] [place] [address] Care Team Providers Care Dump Grader Name Role Phone Kassy Jay MD Primary Care Provider [phone] Encounter Details Date Type Department Care Team (Late Contact Info) Description 07/21/2005 Outpatient Historical [facility] Pediatrics - [facility] [address] [facility] [address] [place] [address] [place] [address] [place] [address] Social History Tobacco Use Types Packs/Day Years Used Date Smoking Tobacco: Never Assessed Comments Unknown Sex and Gender Information Value Date Recorded Sex Assigned at Not on file Legal Sex Female 4:02 AM CROSSCUTTER ROLLED GLASS Gender Identity Not on file Sexual Orientation Not on file documented as of this encounter Plan of Treatment Upcoming Encounters Date Type Department Care Team (Late Contact Info) Description 06/26/2025 9:00 AM CDT Video Visit [facility] Adult Psychiatry [place] [address] [address] Argelia Law NP [address] [address] 08/08/2025 7:30 AM CROSSCUTTER ROLLED GLASS Video Visit [facility] Adult Psychiatry [place] [address] [place] [address] [address] [place] [address] Argelia Law NP 1420 [facility] [address] [place] [address] 09/25/2025 8:00 AM CROSSCUTTER ROLLED GLASS Office Visit [facility] Primary Care - Kirby Herrmann [address] [place] [address] Kassy Jay MD [address] [place] [address] [address] documented as of this encounter Visit Diagnoses Not on filedocumented in this encounter Additional Health Concerns Infection Onset Date Last Indicated Resolved Time R/O COVID-19 06/02/2021 06/03/2021 06/03/2021 7:34 PM CDT R/O COVID-19 12/22/2022 12/22/2022 12/22/2022 12:2 5 PM CDT R/O COVID-19 09/07/2023 09/07/2023 09/07/2023 9:52 PM CROSSCUTTER ROLLED GLASS documented as of this encounter Care Teams Dump Grader Relationship Specialty Start Date End Date Kassy Jay MD [address] [place] [address] [address] PCP - General Family Practice 12/04/22 documented as of this encounter
--- OUTSIDE RECORDS SUMMARY | 2025-06-22 09:30 | XMS_ITS | Encounter Summary ---
Author Organization [facility] Address [address] [place] [address] Care Team Providers Care Languages And Literature Instructor Name Role Phone Kassy Jay MD Primary Care Provider [phone] Encounter Details Date Type Department Care Team (Late Contact Info) Description 09/11/2006 Outpatient Historical [facility] Pediatrics - [facility] [address] [address] [place] [address] [place] [address] [place] [address] Social History Tobacco Use Types Packs/Day Years Used Date Smoking Tobacco: Never Assessed Comments Unknown Sex and Gender Information Value Date Recorded Sex Assigned at Not on file Legal Sex Female 4:02 AM INFORMATION MANAGEMENT OFFICER Gender Identity Not on file Sexual Orientation Not on file documented as of this encounter Last Filed Vital Signs Vital Sign Reading Time Taken Comments Blood Pressure - - Pulse 88 09/11/2006 8:45 AM INFORMATION MANAGEMENT OFFICER Temperature 36.7 C (98 F) 09/11/2006 8:45 AM INFORMATION MANAGEMENT OFFICER Respiratory Rate 20 09/11/2006 8:45 AM INFORMATION MANAGEMENT OFFICER Oxygen Saturation - - Inhaled Oxygen Concentration - - Weight 30.2 kg (66 lb 8 oz) 09/11/2006 8:[address] Height - - Body Mass Index - - documented in this encounter Plan of Treatment Upcoming Encounters Date Type Department Care Team (Late Contact Info) Description 06/26/2025 9:00 AM CDT Video Visit [facility] Adult Psychiatry [place] [address] [address] [place] [address] Thanh, Argelia Lopez, ARAMIS [address] [address] [place] [address] 08/08/2025 7:30 AM INFORMATION MANAGEMENT OFFICER Video Visit [facility] Adult Psychiatry [place] [address] [address] [place] [address] Thanh, Argelia Lopez NP [address] [address] [place] [address] 09/25/2025 8:00 AM INFORMATION MANAGEMENT OFFICER Office Visit [facility] Primary Care - Kirby Herrmann [address] [place] [address] [address] Kassy Jay MD [address] [place] [address] documented as of this encounter Visit Diagnoses Not on filedocumented in this encounter Additional Health Concerns Infection Onset Date Last Indicated Resolved Time R/O COVID-19 06/02/2021 06/03/2021 06/03/2021 7:34 PM CDT R/O COVID-19 12/22/2022 12/22/2022 12/22/2022 12:2 5 PM CDT R/O COVID-19 09/07/2023 09/07/2023 09/07/2023 9:52 PM INFORMATION MANAGEMENT OFFICER documented as of this encounter Care Teams Languages And Literature Instructor Relationship Specialty Start Date End Date Kassy Jay MD [address] [place] [address] PCP - General Family Practice 12/04/22 documented as of this encounter
--- OUTSIDE RECORDS SUMMARY | 2025-06-22 09:30 | XMS_ITS | Clinical Summary ---
Author Organization [facility] Address [address] [place] [address] Care Team Providers Care Wood Heel Attacher Name Role Phone Kassy Jay MD Primary Care Provider [phone] Source Comments [facility],non-owned Affiliates and Associated Physician Practices is amultiple site organization consisting of ambulatory clinics and hospital sitesin [place], [place], [place] and [place]. This disclosure is being madepursuant to the Care Everywhere program and may not contain all information available regarding this patient. Last updated 18.[facility] Allergies Active Allergy Reactions Criticality Noted Date [...] Zyrtec & solumedrol given. Make appt with afterschool. 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 Recently started on diazoxide. BG meter [...] sent hypoglycemia labs. Discussed with veronica, outpatient diorama model maker Dr. Mejia will f/u with results & [...] Assessment & Plan: Patient reports follows with [facility] psychiatry. Pharmacy list confirmed with patient. Concern [...] d isorder, in full remission 01/14/2018 01/14/2018 Immunizations Immunization Administration Dates Next Due INFLUENZA VACCINE, TRIV. (AF LURIA, FLUZONE TRIVALENT; 6MO+) (IIV3) 09/04/2011,07/10/2009,07/03/2007,07/18,07/18/2004,08/01/2003,07/06/2002 ,08/23/2001,07/13/2001 Covid Moderna primary monova lent 12+ yr 0.5mL 07/15/2021,11/24/2020,10/27/2020 DTaP VACCINE IM (6wk-6yrs) 02/10/2003,,1998,06/29,1998 FLU VACCINE QUAD IIV4 SPLIT 0.25 ML IM ,06/21/2020,06/21/2018 FLU VACCINE TRI IIV3 SPLIT I M [...] Industry Job Start Date Job End Date [employer] Not on file Not on file Not on file Last Filed Vital Signs Vital Sign Reading Time Taken Comments Blood Pressure 113/71 10/11/2024 2:05 PM EDITING INTERNSHIP Pulse 82 10/11/2024 2:05 PM EDITING INTERNSHIP Temperature 36.7 C (98.1 F) 10/11/2024 11:52 AM EDITING INTERNSHIP Respiratory Rate 20 10/11/2024 2:05 PM EDITING INTERNSHIP Oxygen Saturation 98% 10/11/2024 2:05 PM EDITING INTERNSHIP Inhaled Oxygen Concentration - - Weight 81.6 kg (180 lb) 10/11/2024 11:52 AM EDITING INTERNSHIP Height 154.9 cm (5' 1) 10/11/2024 11:52 AM EDITING INTERNSHIP Body Mass Index 34.01 10/11/2024 11:52 AM EDITING INTERNSHIP Plan of Treatment Upcoming Encounters Date Type Department Care Team (Late st Contact Info) Description 09/12/2025 9:45 AM EDITING INTERNSHIP Office Visit [facility] - RETURNING OFFICER [address] [facility] [address] [place] [address] Sam Cui MD [address] [facility] [address] [place] [address] Health Maintenance [...] HR ALL PATH Routine 08/31/2023 10:35 AM EDITING INTERNSHIP Routine cervical smear from Last 3 Months or Most Recently Relevant to Health Maintenance Results * PAP IG RFLX HPV HR ALL PATH (08/31/2023 10:35 AM EDIT[employer] INTERNSHIP) Diagnosis [facility] INSURANCE BILL Comment: NEGATIVE FOR INTRAEPITHELIAL LESION OR MALIGNANCY. REACTIVE CELLULAR CHANGES AND/OR REPAIR ARE PRESENT. Specimen Adequacy [facility] INSURANCE BILL Comment: Satisfactory for evaluation. Endocervical and/or squamous metaplastic cells (endocervical component) are present. Clinician Provided ICD10 [facility] INSURANCE BILL Comment: Z01.419 Z12.4 Z97.5 Performed by [facility] INSURANCE BILL Comment:Casey Dunn hnologist (ASCP) Electronically Signed by [facility] INSURANCE BILL Comment:Mony Hermosillo MD, P athologist Comment . [facility] INSURANCE BILL Note [facility] INSURANCE BILL Comment: The Pap smear is a screening test designed to aid in the detection of premalignant and malignant conditions of the uterine cervix. It is not a diagnostic procedure and should not be used as the sole means of detecting cervical cancer. Both false-positive and false-negative reports do occur. . [facility] CPT Code Automation [facility] INSURANCE BILL Comment: This liquid based ThinPrep(R) pap test was screened with the use of an image guided system. Note [facility] INSURANCE BILL Comment: The HPV DNA reflex criteria were not met with this specimen result therefore, no HPV testing was performed. . Pathology/Cytolog y ENTIRE ENDOCERVIX / Unknown 08/31/2023 10:35 AM EDITING INTERNSHIP 09/01/2023 Narrative [facility] INSURANCE BILL - 09/03/2023 3:09 PM EDITING INTERNSHIP Source.............Cervix No. of containers..01 ThinPrep Vial Resulting Agency Comment Lab Testing performed at: [facility] [id number] Sam Cui MD LAB - PATHOLOGY/CYTOLOGY ORDERAB LES Final Result [facility] INSURANCE BILL [address] [place] [address] from Last 3 Months or Most Recently Relevant to Health Maintenance Insurance MEDICAID [employer] Care Teams Wood Heel Attacher Relationship Specialty Start Date End Date Kassy Jay MD [address] [place] [phone] PCP - General Family Medicine 06/15/23
--- OUTSIDE RECORDS SUMMARY | 2025-06-22 09:30 | XMS_ITS | Encounter Summary ---
Author Organization [facility] Address [address] [place] [address] Care Team Providers Care Web Press Operator Name Role Phone Kassy Jay MD Primary Care Provider [phone] Encounter Details Date Type Department Care Team (Late st Contact Info) Description 01/21/[address] [facility] Pediatrics - [facility] [address] [facility] [address] [place] [address] [place] [address] [facility] [address] [place] [address] Social History Tobacco Use Types Packs/Day Years Used Date Smoking Tobacco: Never Assessed Comments Unknown Sex and Gender Information Value Date Recorded Sex Assigned at Not on file Legal Sex Female 4:02 AM LIFE AGENT Gender Identity Not on file Sexual [...] ear pain, the degree of the fever has been up to 104, has no symptoms of [...] NEW PRESCRIPTION, 01/21/2006. LAB ORDERS: Order number: [id number] Test Ordered: RAPID STREP [id number] RETURN VISIT/GUIDANCE: Instructed to:Take OTC meds as [...] Visit [facility] Adult Psychiatry [address] [address] [place] [address] Thanh, Argelia Lopez NP [address] [address] [place] [address] 08/08/2025 7:30 AM LIFE AGENT Video Visit [facility] Adult Psychiatry [address] [address] [place] [address] Thanh, Argelia Lopez NP [address] [address] [place] [address] 09/25/2025 8:00 AM LIFE AGENT Office Visit [facility] Primary Care - Kirby Herrmann [address] [place] [address] Kassy Jay MD [address] [place] [address] documented as of this encounter Visit Diagnoses Not on filedocumented in this encounter Additional Health Concerns Infection Onset Date Last Indicated Resolved Time R/O COVID-19 06/02/2021 06/03/2021 06/03/2021 7:34 PM CDT R/O COVID-19 12/22/2022 12/22/2022 12/22/2022 12:2 5 PM CDT R/O COVID-19 09/07/2023 09/07/2023 09/07/2023 9:52 PM LIFE AGENT documented as of this encounter Care Teams Web Press Operator Relationship Specialty Start Date End Date Kassy Jay MD [address] [place] [address] [address] PCP - General Family Practice 12/04/22 documented as of this encounter
--- OUTSIDE RECORDS SUMMARY | 2025-06-22 09:30 | XMS_ITS | Encounter Summary ---
Author Organization [facility] Address [address] [place] [address] Care Team Providers Care Station Supervisor Name Role Phone Kassy Jay MD Primary Care Provider [phone] Encounter Details Date Type Department Care Team ([facility] Contact Info) Description 08/27/2005 Outpatient Historical [facility] Pediatrics - [facility] [address] [facility] [address] [place] [address] [place] [address] [facility] [address] [place] [address] Social History Tobacco Use Types Packs/Day Years Used Date Smoking Tobacco: Never Assessed Comments Unknown Sex and Gender Information Value Date Recorded Sex Assigned at Not on file Legal Sex Female 4:02 AM ROUGH RIB GRADER Gender Identity Not on file Sexual Orientation Not on file documented as of this encounter Last Filed Vital Signs Vital Sign Reading Time Taken Comments Blood Pressure - - Pulse 102 08/27/2005 3:00 PM ROUGH RIB GRADER Temperature 36.8 C (98.3 F) 08/27/2005 3:00 PM ROUGH RIB GRADER Respiratory Rate 21 08/27/2005 3:00 PM ROUGH RIB GRADER Oxygen Saturation - - Inhaled Oxygen Concentration - - Weight 25.9 kg (57 lb) 08/27/2005 3:00 PM ROUGH RIB GRADER Height - - Body Mass Index - - documented in this encounter Plan of Treatment Upcoming Encounters Date Type Department Care Team (Late st Contact Info) Description 06/26/2025 9:00 AM CDT Video Visit [facility] Adult Psychiatry [place] [address] [address] [place] [address] Thanh Argelia John, HOME ORGANIZER [address] [address] [place] [address] 08/08/2025 7:30 AM ROUGH RIB GRADER Video Visit [facility] Adult Psychiatry [place] [address] [address] [place] [address] Argelia Law, ARAMIS [address] [address] [place] [address] 09/25/2025 8:00 AM ROUGH RIB GRADER Office Visit [facility] Primary Care - Kirby Herrmann [address] [place] [address] Kassy Jay MD [address] [place] [address] documented as of this encounter Visit Diagnoses Not on filedocumented in this encounter Additional Health Concerns Infection Onset Date Last Indicated Resolved Time R/O COVID-19 06/02/2021 06/03/2021 06/03/2021 7:34 PM CDT R/O COVID-19 12/22/2022 12/22/2022 12/22/2022 12:2 5 PM CDT R/O COVID-19 09/07/2023 09/07/2023 09/07/2023 9:52 PM ROUGH RIB GRADER documented as of this encounter Care Teams Station Supervisor Relationship Specialty Start Date End Date Kassy Jay MD [address] [place] [address] [address] PCP - General Family Practice 12/04/22 documented as of this encounter
--- OUTSIDE RECORDS SUMMARY | 2025-06-22 09:30 | XMS_ITS | Encounter Summary ---
Author Organization [facility] Address [address] [place] [address] Care Team Providers Care Progressive Care Unit Registered Nurse Name Role Phone Kassy Jay MD Primary Care Provider [phone] Encounter Details Date Type Department Care Team (Late Contact Info) Description 07/18/2005 Outpatient Historical [facility] Pediatrics - [facility] [address] [facility] [address] [facility] [address] [place] [address] [place] [address] [place] [address] Social History Tobacco Use Types Packs/Day Years Used Date Smoking Tobacco: Never Assessed Comments Unknown Sex and Gender Information Value Date Recorded Sex Assigned at Not on file Legal Sex Female 4:02 AM RUG CLEANER HELPER Gender Identity Not on file Sexual Orientation Not on file documented as of this encounter Plan of Treatment Upcoming Encounters Date Type Department Care Team (Late Contact Info) Description 06/26/2025 9:00 AM CDT Video Visit [facility] Adult Psychiatry [place] [address] [address] Argelia Law NP [address] [address] 08/08/2025 7:30 AM RUG CLEANER HELPER Video Visit [facility] Adult Psychiatry [place] [address] [address] [place] [address] Argelia Law NP [address] [facility] [address] [place] [address] 09/25/2025 8:00 AM RUG CLEANER HELPER Office Visit [facility] Primary Care - Kirby Herrmann [address] [place] [address] Kassy Jay MD [address] [place] [address] documented as of this encounter Visit Diagnoses Not on filedocumented in this encounter Additional Health Concerns Infection Onset Date Last Indicated Resolved Time R/O COVID-19 06/02/2021 06/03/2021 06/03/2021 7:34 PM CDT R/O COVID-19 12/22/2022 12/22/2022 12/22/2022 12:2 5 PM CDT R/O COVID-19 09/07/2023 09/07/2023 09/07/2023 9:52 PM RUG CLEANER HELPER documented as of this encounter Care Teams Progressive Care Unit Registered Nurse Relationship Specialty Start Date End Date Kassy Jay MD [address] [place] [address] [address] PCP - General Family Practice 12/04/22 documented as of this encounter
--- OUTSIDE RECORDS SUMMARY | 2025-06-22 09:30 | XMS_ITS | Encounter Summary ---
Author Organization [facility] Address [address] [place] [address] Care Team Providers Care Wire Tester Name Role Phone Kassy Jay MD Primary Care Provider [phone] Encounter Details Date Type Department Care Team (Late Contact Info) Description 07/21/2005 Outpatient Historical [facility] Pediatrics - [facility] [address] [facility] [address] [place] [address] [place] [address] [place] [address] Social History Tobacco Use Types Packs/Day Years Used Date Smoking Tobacco: Never Assessed Comments Unknown Sex and Gender Information Value Date Recorded Sex Assigned at Not on file Legal Sex Female 4:02 AM SLAG DUMPER Gender Identity Not on file Sexual Orientation Not on file documented as of this encounter Plan of Treatment Upcoming Encounters Date Type Department Care Team (Late Contact Info) Description 06/26/2025 9:00 AM CDT Video Visit [facility] Adult Psychiatry [place] [address] [address] Argelia Law NP [address] [address] 08/08/2025 7:30 AM SLAG DUMPER Video Visit [facility] Adult Psychiatry [place] [address] [address] [place] [address] Argelia Law NP [address] [facility] [address] [place] [address] 09/25/2025 8:00 AM SLAG DUMPER Office Visit [facility] Primary Care - Kirby Herrmann [address] [place] [address] Kassy Jay MD [address] [place] [address] documented as of this encounter Visit Diagnoses Not on filedocumented in this encounter Additional Health Concerns Infection Onset Date Last Indicated Resolved Time R/O COVID-19 06/02/2021 06/03/2021 06/03/2021 7:34 PM CDT R/O COVID-19 12/22/2022 12/22/2022 12/22/2022 12:2 5 PM CDT R/O COVID-19 09/07/2023 09/07/2023 09/07/2023 9:52 PM SLAG DUMPER documented as of this encounter Care Teams Wire Tester Relationship Specialty Start Date End Date Kassy Jay MD [address] [place] [address] [address] PCP - General Family Practice 12/04/22 documented as of this encounter
--- OUTSIDE RECORDS SUMMARY | 2025-06-22 09:30 | XMS_ITS | Encounter Summary ---
Author Organization [facility] Address [address] [place] [address] Care Team Providers Care Vacuum Applicator Operator Name Role Phone Kassy Jay MD Primary Care Provider [phone] Encounter Details Date Type Department Care Team (Late Contact Info) Description 01/21/[address] [facility] Pediatrics - [facility] [address] [facility] [address] [place] [address] [place] [address] [place] [address] Social History Tobacco Use Types Packs/Day Years Used Date Smoking Tobacco: Never Assessed Comments Unknown Sex and Gender Information Value Date Recorded Sex Assigned at Not on file Legal Sex Female 4:02 AM FLIPPING MACHINE OPERATOR Gender Identity Not on file Sexual Orientation Not on file documented as of this encounter Plan of Treatment Upcoming Encounters Date Type Department Care Team (Late Contact Info) Description 06/26/2025 9:00 AM CDT Video Visit [facility] Adult Psychiatry [place] [address] [address] Argelia Law NP [address] [address] 08/08/2025 7:30 AM FLIPPING MACHINE OPERATOR Video Visit [facility] Adult Psychiatry [place] [address] [address] [place] [address] Argelia Law NP [address] [facility] [address] [place] [address] 09/25/2025 8:00 AM FLIPPING MACHINE OPERATOR Office Visit [facility] Primary Care - Kirby Herrmann [address] [place] [address] Kassy Jay MD [address] [place] [address] [address] documented as of this encounter Visit Diagnoses Not on filedocumented in this encounter Additional Health Concerns Infection Onset Date Last Indicated Resolved Time R/O COVID-19 06/02/2021 06/03/2021 06/03/2021 7:34 PM CDT R/O COVID-19 12/22/2022 12/22/2022 12/22/2022 12:2 5 PM CDT R/O COVID-19 09/07/2023 09/07/2023 09/07/2023 9:52 PM FLIPPING MACHINE OPERATOR documented as of this encounter Care Teams Vacuum Applicator Operator Relationship Specialty Start Date End Date Kassy Jay MD [address] [place] [address] [address] PCP - General Family Practice 12/04/22 documented as of this encounter
--- OUTSIDE RECORDS SUMMARY | 2025-06-22 09:30 | XMS_ITS | Encounter Summary ---
Author Organization [facility] Address [address] [place] [address] Care Team Providers Care Screen Repairer Crusher Name Role Phone Kassy Jay MD Primary Care Provider [phone] Encounter Details Date Type Department Care Team ([facility] Contact Info) Description 07/29/2005 Outpatient Historical [facility] Pediatrics - [facility] [address] [facility] [address] [place] [address] [place] [address] [facility] [address] [place] [address] Social History Tobacco Use Types Packs/Day Years Used Date Smoking Tobacco: Never Assessed Comments Unknown Sex and Gender Information Value Date Recorded Sex Assigned at Not on file Legal Sex Female 4:02 AM BOX SEALING MACHINE OPERATOR Gender Identity Not on file Sexual Orientation Not on file documented as of this encounter Last Filed Vital Signs Vital Sign Reading Time Taken Comments Blood Pressure - - Pulse 64 07/29/2005 3:45 PM BOX SEALING MACHINE OPERATOR Temperature 37.1 C (98.7 F) 07/29/2005 3:45 PM BOX SEALING MACHINE OPERATOR Respiratory Rate 32 07/29/2005 3:45 PM BOX SEALING MACHINE OPERATOR Oxygen Saturation - - Inhaled Oxygen Concentration - - Weight 25.2 kg (55 lb 8 oz) 07/29/2005 3:[address] Height - - Body Mass Index - - documented in this encounter Plan of Treatment Upcoming Encounters Date Type Department Care Team (Late Contact Info) Description 06/26/2025 9:00 AM CDT Video Visit [facility] Adult Psychiatry [place] [address] [address] [place] [address] Argelia Law, ARAMIS [address] [address] [place] [address] 08/08/2025 7:30 AM BOX SEALING MACHINE OPERATOR Video Visit [facility] Adult Psychiatry [place] [address] [address] [place] [address] Argelia Law NP [address] [address] [place] [address] 09/25/2025 8:00 AM BOX SEALING MACHINE OPERATOR Office Visit [facility] Primary Care - Kirby Herrmann [address] [place] [address] [address] Kassy Jay MD [address] [place] [address] documented as of this encounter Visit Diagnoses Not on filedocumented in this encounter Additional Health Concerns Infection Onset Date Last Indicated Resolved Time R/O COVID-19 06/02/2021 06/03/2021 06/03/2021 7:34 PM CDT R/O COVID-19 12/22/2022 12/22/2022 12/22/2022 12:2 5 PM CDT R/O COVID-19 09/07/2023 09/07/2023 09/07/2023 9:52 PM BOX SEALING MACHINE OPERATOR documented as of this encounter Care Teams Screen Repairer Crusher Relationship Specialty Start Date End Date Kassy Jay MD [address] [place] [address] PCP - General Family Practice 12/04/22 documented as of this encounter
--- OUTSIDE RECORDS SUMMARY | 2025-06-22 09:30 | XMS_ITS | Encounter Summary ---
Author Organization [facility] Address [address] [place] [address] Care Team Providers Care Pole Cutter Name Role Phone Kassy Jay MD Primary Care Provider [phone] Encounter Details Date Type Department Care Team ([facility] Contact Info) Description 09/04/2005 Outpatient Historical [facility] Childrens Respiratory and Sleep Medicine [address] [facility] [address] [address] Gustavo Sims Social History Tobacco Use Types Packs/Day Years Used Date Smoking Tobacco: Never Assessed Comments Unknown Sex and Gender Information Value Date Recorded Sex Assigned at Not on file Legal Sex Female 4:02 AM REGISTER OF DEEDS Gender Identity Not on file Sexual Orientation Not on file documented as of this encounter Plan of Treatment Upcoming Encounters Date Type Department Care Team ([facility] Contact Info) Description 06/26/2025 9:00 AM CDT Video Visit [facility] Adult Psychiatry [address] [phone] Argelia Law NP [address] [place] [address] 08/08/2025 7:30 AM REGISTER OF DEEDS Video Visit [facility] Adult Psychiatry [address] [address] Argelia Law NP [address] [place] [address] [place] [address] 09/25/2025 8:00 AM REGISTER OF DEEDS Office Visit [facility] Primary Care - Kirby Herrmann [address] [place] [address] Kassy Jay MD [address] [place] [address] documented as of this encounter Visit Diagnoses Not on filedocumented in this encounter Additional Health Concerns Infection Onset Date Last Indicated Resolved Time R/O COVID-19 06/02/2021 06/03/2021 06/03/2021 7:34 PM CDT R/O COVID-19 12/22/2022 12/22/2022 12/22/2022 12:2 5 PM CDT R/O COVID-19 09/07/2023 09/07/2023 09/07/2023 9:52 PM REGISTER OF DEEDS documented as of this encounter Care Teams Pole Cutter Relationship Specialty Start Date End Date Kassy Jay MD [address] [place] [place] [address] [phone] PCP - General Family Practice 12/04/22 documented as of this encounter
--- OUTSIDE RECORDS SUMMARY | 2025-06-22 09:30 | XMS_ITS | Encounter Summary ---
Author Organization [facility] Address [address] [place] [address] Care Team Providers Care Cellar Supervisor Name Role Phone Kassy Jay MD Primary Care Provider [phone] Encounter Details Date Type Department Care Team (Late st Contact Info) Description 05/16/2006 Orders Only [facility] Pediatrics - [facility] [address] [place] [address] [place] [address] [facility] [address] [place] [address] Social History Tobacco Use Types Packs/Day Years Used Date Smoking Tobacco: Never Assessed Comments Unknown Sex and Gender Information Value Date Recorded Sex Assigned at Not on file Legal Sex Female 4:02 AM OLEOMARGARINE MAKER Gender Identity Not on file Sexual [...] NEW PRESCRIPTION, 05/16/2006. LAB ORDERS: Order number: [id number] Test Ordered: STREPTOCOCCUS, GROUP A CULTURE 4485 Order number: [id number] Test Ordered: RAPID STREP [id number] RETURN VISIT/GUIDANCE: Instructed to:Take OTC meds as [...] Visit [facility] Adult Psychiatry [address] [address] [place] [address] Thanh, Argelia Lopez NP [address] [address] [place] [address] 08/08/2025 7:30 AM OLEOMARGARINE MAKER Video Visit [facility] Adult Psychiatry [address] [place] [address] Thanh, Argelia Lopez NP [address] [address] [place] [address] 09/25/2025 8:00 AM OLEOMARGARINE MAKER Office Visit [facility] Primary Care - Kirby Herrmann [address] [place] [address] Kassy Jay MD [address] [place] [address] [address] documented as of this encounter Visit Diagnoses Not on filedocumented in this encounter Additional Health Concerns Infection Onset Date Last Indicated Resolved Time R/O COVID-19 06/02/2021 06/03/2021 06/03/2021 7:34 PM CDT R/O COVID-19 12/22/2022 12/22/2022 12/22/2022 12:2 5 PM CDT R/O COVID-19 09/07/2023 09/07/2023 09/07/2023 9:52 PM OLEOMARGARINE MAKER documented as of this encounter Care Teams Cellar Supervisor Relationship Specialty Start Date End Date Kassy Jay MD [address] [place] [address] PCP - General Family Practice 12/04/22 documented as of this encounter
--- OUTSIDE RECORDS SUMMARY | 2025-06-22 09:30 | XMS_ITS | Encounter Summary ---
Author Organization [facility] Address [address] [place] [address] Care Team Providers Care Coil Wrapper Name Role Phone Kassy Jay MD Primary Care Provider [phone] Encounter Details Date Type Department Care Team (Late Contact Info) Description 01/01/2006 Outpatient Historical [facility] Childrens Respiratory and Sleep Medicine [address] [facility] [address] [address] Gustavo Sims Social History Tobacco Use Types Packs/Day Years Used Date Smoking Tobacco: Never Assessed Comments Unknown Sex and Gender Information Value Date Recorded Sex Assigned at Not on file Legal Sex Female 4:02 AM LOLLYPOP MACHINE OPERATOR Gender Identity Not on file Sexual Orientation Not on file documented as of this encounter Plan of Treatment Upcoming Encounters Date Type Department Care Team ([facility] Contact Info) Description 06/26/2025 9:00 AM CDT Video Visit [facility] Adult Psychiatry [address] [phone] Argelia Law NP [address] [place] [address] 08/08/2025 7:30 AM LOLLYPOP MACHINE OPERATOR Video Visit [facility] Adult Psychiatry [address] [address] Argelia Law NP [address] [place] [address] [place] [address] 09/25/2025 8:00 AM LOLLYPOP MACHINE OPERATOR Office Visit [facility] Primary Care - Kirby Herrmann [address] [place] [address] Kassy Jay MD [address] [place] [place] [address] documented as of this encounter Visit Diagnoses Not on filedocumented in this encounter Additional Health Concerns Infection Onset Date Last Indicated Resolved Time R/O COVID-19 06/02/2021 06/03/2021 06/03/2021 7:34 PM CDT R/O COVID-19 12/22/2022 12/22/2022 12/22/2022 12:2 5 PM CDT R/O COVID-19 09/07/2023 09/07/2023 09/07/2023 9:52 PM LOLLYPOP MACHINE OPERATOR documented as of this encounter Care Teams Coil Wrapper Relationship Specialty Start Date End Date Kassy Jay MD [address] [phone] PCP - General Family Practice 12/04/22 documented as of this encounter
--- OUTSIDE RECORDS SUMMARY | 2025-06-22 09:30 | XMS_ITS | Encounter Summary ---
Author Organization [facility] Address [address] [place] [address] Care Team Providers Care Char Filter Tank Tender Name Role Phone Kassy Jay MD Primary Care Provider [phone] Encounter Details Date Type Department Care Team (Late Contact Info) Description 06/03/1999 Outpatient Historical [facility] Pediatrics - [facility] [address] [address] [facility] [address] [place] [address] Darren Tabor MD NO ADDRESS ON FILE Social History Tobacco Use Types Packs/Day Years Used Date Smoking Tobacco: Never Assessed Comments Unknown Sex and Gender Information Value Date Recorded Sex Assigned at Not on file Legal Sex Female 4:02 AM TABBER Gender Identity Not on file Sexual Orientation Not on file documented as of this encounter Plan of Treatment Upcoming Encounters Date Type Department Care Team (Late Contact Info) Description 06/26/2025 9:00 AM CDT Video Visit [facility] Adult Psychiatry [address] [address] Argelia Law NP [address] [place] [address] 08/08/2025 7:30 AM TABBER Video Visit [facility] Adult Psychiatry [address] [address] Argelia Law NP [address] [address] [address] [place] [address] 09/25/2025 8:00 AM TABBER Office Visit [facility] Primary Care - Kirby Herrmann [address] [place] [address] [address] [address] Kassy Jay MD [address] [phone] documented as of this encounter Visit Diagnoses Not on filedocumented in this encounter Additional Health Concerns Infection Onset Date Last Indicated Resolved Time R/O COVID-19 06/02/2021 06/03/2021 06/03/2021 7:34 PM CDT R/O COVID-19 12/22/2022 12/22/2022 12/22/2022 12:2 5 PM CDT R/O COVID-19 09/07/2023 09/07/2023 09/07/2023 9:52 PM TABBER documented as of this encounter Care Teams Char Filter Tank Tender Relationship Specialty Start Date End Date Kassy Jay MD [address] [place] [place] [place] [phone] PCP - General Family Practice 12/04/22 documented as of this encounter
--- OUTSIDE RECORDS SUMMARY | 2025-06-22 09:30 | XMS_ITS | Encounter Summary ---
Author Organization [facility] Address [address] [place] [address] Care Team Providers Care Receptionist Clerk Name Role Phone Kassy Jay MD Primary Care Provider [phone] Encounter Details Date Type Department Care Team (Latest Contact Info) Description 01/01/2006 Outpatient Historical [facility] Gustaov Sims Extrinsic Asthma, Unspecified (Primary Dx) Social History Tobacco Use Types Packs/Day Years Used Date Smoking Tobacco: Never Assessed Comments Unknown Sex and Gender Information Value Date Recorded Sex Assigned at Not on file Legal Sex Female 4:02 AM INTERNAL AUDIT DIRECTOR Gender Identity Not on file Sexual Orientation Not on file documented as of this encounter Plan of Treatment Upcoming Encounters Date Type Department Care Team (Late st Contact Info) Description 06/26/2025 9:00 AM CDT Video Visit [facility] Adult Psychiatry [address] [place] [address] Argelia Law NP [address] [place], [place] [address] [address] 08/08/2025 7:30 AM INTERNAL AUDIT DIRECTOR Video Visit [facility] Adult Psychiatry [address] [address] [place] [address] Argelia Law NP [address] [place], [place] [address] [place] [address] 09/25/2025 8:00 AM INTERNAL AUDIT DIRECTOR Office Visit [facility] Primary Care - Kirby Herrmann [address] [place] [address] Kassy Jay MD [address] [phone] documented as of this encounter Visit Diagnoses Diagnosis Extrinsic asthma, unspecified- Primary documented in this encounter Additional Health Concerns Infection Onset Date Last Indicated Resolved Time R/O COVID-19 06/02/2021 06/03/2021 06/03/2021 7:34 PM CDT R/O COVID-19 12/22/2022 12/22/2022 12/22/2022 12:2 5 PM CDT R/O COVID-19 09/07/2023 09/07/2023 09/07/2023 9:52 PM INTERNAL AUDIT DIRECTOR documented as of this encounter Care Teams Receptionist Clerk Relationship Specialty Start Date End Date Kassy Jay MD [address] [place] [address] [phone] PCP - General Family Practice 12/04/22 documented as of this encounter
--- OUTSIDE RECORDS SUMMARY | 2025-06-22 09:30 | XMS_ITS | Encounter Summary ---
Author Organization [facility] Address [address] [place] [address] Care Team Providers Care A R Collections Rep Name Role Phone Kassy Jay MD Primary Care Provider [phone] Encounter Details Date Type Department Care Team ([facility] Contact Info) Description 05/21/2005 Outpatient Historical [facility] Pediatrics - [facility] [address] [facility] [address] [place] [address] Garrett Mittal MD [address] [facility] [facility] [address] [place] [address] Social History Tobacco Use Types Packs/Day Years Used Date Smoking Tobacco: Never Assessed Comments Unknown Sex and Gender Information Value Date Recorded Sex Assigned at Not on file Legal Sex Female 4:02 AM ENGINEER Gender Identity Not on file Sexual [facility] [place] [address] [address] [place] [address] Argelia Law, AIRCRAFT INSTRUMENT ENGINEER [address] [address] [place] [address] 08/08/2025 7:30 AM ENGINEER Video Visit [facility] Adult Psychiatry [place] [address] [address] [place] [address] Thanh Argelia Lopez, [place] [address] [address] [place] [address] 09/25/2025 8:00 AM ENGINEER Office Visit [facility] Primary Care - Kirby Herrmann [address] [place] [address] [address] Kassy Jay MD [address] [place] [place] [phone] documented as of this encounter Visit Diagnoses Not on filedocumented in this encounter Additional Health Concerns Infection Onset Date Last Indicated Resolved Time R/O COVID-19 06/02/2021 06/03/2021 06/03/2021 7:34 PM CDT R/O COVID-19 12/22/2022 12/22/2022 12/22/2022 12:2 5 PM CDT R/O COVID-19 09/07/2023 09/07/2023 09/07/2023 9:52 PM ENGINEER documented as of this encounter Care Teams A R Collections Rep Relationship Specialty Start Date End Date Kassy Jay MD [address] [phone] PCP - General Family Practice 12/04/22 documented as of this encounter
--- OUTSIDE RECORDS SUMMARY | 2025-06-22 09:30 | XMS_ITS | Encounter Summary ---
Author Organization [facility] Address [address] [place] [address] Care Team Providers Care Calendering Machine Operator Name Role Phone Kassy Jay MD Primary Care Provider [phone] Encounter Details Date Type Department Care Team ([facility] Contact Info) Description 09/04/2005 Outpatient Historical [facility] Childrens Respiratory and Sleep Medicine [address] [facility] [address] [address] Gustavo Sims Social History Tobacco Use Types Packs/Day Years Used Date Smoking Tobacco: Never Assessed Comments Unknown Sex and Gender Information Value Date Recorded Sex Assigned at Not on file Legal Sex Female 4:02 AM SALES PERFORMANCE ANALYST Gender Identity Not on file Sexual Orientation Not on file documented as of this encounter Plan of Treatment Upcoming Encounters Date Type Department Care Team ([facility] Contact Info) Description 06/26/2025 9:00 AM CDT Video Visit [facility] Adult Psychiatry [address] [phone] Argelia Law NP [address] [place] [address] 08/08/2025 7:30 AM SALES PERFORMANCE ANALYST Video Visit [facility]3] Adult Psychiatry [address] [address] Argelia Law NP [address] [place] [address] [place] [address] 09/25/2025 8:00 AM SALES PERFORMANCE ANALYST Office Visit [facility]3] Primary Care - Kirby Hrermann [address] [place] [address] [address] Kassy Jay MD [address] [place] [address] documented as of this encounter Visit Diagnoses Not on filedocumented in this encounter Additional Health Concerns Infection Onset Date Last Indicated Resolved Time R/O COVID-19 06/02/2021 06/03/2021 06/03/2021 7:34 PM CDT R/O COVID-19 12/22/2022 12/22/2022 12/22/2022 12:2 5 PM CDT R/O COVID-19 09/07/2023 09/07/2023 09/07/2023 9:52 PM SALES PERFORMANCE ANALYST documented as of this encounter Care Teams Calendering Machine Operator Relationship Specialty Start Date End Date Kassy Jay MD [address] [phone] PCP - General Family Practice 12/04/22 documented as of this encounter
--- OUTSIDE RECORDS SUMMARY | 2025-06-22 09:30 | XMS_ITS | Encounter Summary ---
Author Organization [facility] Address [address] [place] [address] Care Team Providers Care Voicer Name Role Phone Kassy Jay MD Primary Care Provider [phone] Encounter Details Date Type Department Care Team (Late Contact Info) Description 02/24/[address] [facility] Pediatrics - [facility] [address] [facility] [address] [place] [address] [place] [address] [address] [address] [place] [address] Social History Tobacco Use Types Packs/Day Years Used Date Smoking Tobacco: Never Assessed Comments Unknown Sex and Gender Information Value Date Recorded Sex Assigned at Not on file Legal Sex Female 4:02 AM LAND CLEARER Gender Identity Not on file Sexual Orientation Not on file documented as of this encounter Plan of Treatment Upcoming Encounters Date Type Department Care Team (Late Contact Info) Description 06/26/2025 9:00 AM CDT Video Visit [facility] Adult Psychiatry [address] [address] Argelia Law NP [address] [address] 08/08/2025 7:30 AM LAND CLEARER Video Visit [facility] Adult Psychiatry [place] [address] [address] [address] [address] Argelia Law NP [address] [facility] [address] [address] 09/25/2025 8:00 AM LAND CLEARER Office Visit [facility] Primary Care - Kirby Herrmann [address] [place] [place] [address] Kassy Jay MD [address] [place] [place] [address] documented as of this encounter Visit Diagnoses Not on filedocumented in this encounter Additional Health Concerns Infection Onset Date Last Indicated Resolved Time R/O COVID-19 06/02/2021 06/03/2021 06/03/2021 7:34 PM CDT R/O COVID-19 12/22/2022 12/22/2022 12/22/2022 12:2 5 PM CDT R/O COVID-19 09/07/2023 09/07/2023 09/07/2023 9:52 PM LAND CLEARER documented as of this encounter Care Teams Voicer Relationship Specialty Start Date End Date Kassy Jay MD [address] [phone] PCP - General Family Practice 12/04/22 documented as of this encounter
--- OUTSIDE RECORDS SUMMARY | 2025-06-22 09:30 | XMS_ITS | Encounter Summary ---
Author Organization [facility] Address [address] [place] [address] Care Team Providers Care Tangible Personal Property Appraiser Name Role Phone Kassy Jay MD Primary Care Provider [phone] Encounter Details Date Type Department Care Team (Late Contact Info) Description 02/03/2001 Outpatient Historical [facility] Pediatrics - [facility] [address] [facility] [address] [facility] [address] [place] [address] [place] [address] [place] [address] Social History Tobacco Use Types Packs/Day Years Used Date Smoking Tobacco: Never Assessed Comments Unknown Sex and Gender Information Value Date Recorded Sex Assigned at Not on file Legal Sex Female 4:02 AM ADMINISTRATIVE DIETITIAN Gender Identity Not on file Sexual Orientation Not on file documented as of this encounter Plan of Treatment Upcoming Encounters Date Type Department Care Team (Late Contact Info) Description 06/26/2025 9:00 AM CDT Video Visit [facility] Adult Psychiatry [address] [address] [address] Argelia Law NP [address] [address] 08/08/2025 7:30 AM ADMINISTRATIVE DIETITIAN Video Visit [facility] Adult Psychiatry [place] [address] [address] [place] [address] Argelia Law NP [address] [facility] [address] [address] 09/25/2025 8:00 AM ADMINISTRATIVE DIETITIAN Office Visit [facility] Primary Care - Kirby Herrmann [address] [place] [address] Kassy Jay MD [address] [place] [address] [address] documented as of this encounter Visit Diagnoses Not on filedocumented in this encounter Additional Health Concerns Infection Onset Date Last Indicated Resolved Time R/O COVID-19 06/02/2021 06/03/2021 06/03/2021 7:34 PM CDT R/O COVID-19 12/22/2022 12/22/2022 12/22/2022 12:2 5 PM CDT R/O COVID-19 09/07/2023 09/07/2023 09/07/2023 9:52 PM ADMINISTRATIVE DIETITIAN documented as of this encounter Care Teams Tangible Personal Property Appraiser Relationship Specialty Start Date End Date Kassy Jay MD [address] [phone] PCP - General Family Practice 12/04/22 documented as of this encounter
--- OUTSIDE RECORDS SUMMARY | 2025-06-22 09:30 | XMS_ITS | Encounter Summary ---
Author Organization [facility] Address [address] [place] [address] Care Team Providers Care Production Broaching Machine Operator Name Role Phone Kassy Jay MD Primary Care Provider [phone] Encounter Details Date Type Department Care Team ([facility] Contact Info) Description 08/11/2007 Outpatient Historical [facility] Pediatrics - [facility] [address] [place] [address] [place] [address] [place] [address] Social History Tobacco Use Types Packs/Day Years Used Date Smoking Tobacco: Never Assessed Comments Unknown Sex and Gender Information Value Date Recorded Sex Assigned at Not on file Legal Sex Female 4:02 AM WELL DRILL OPERATOR CABLE TOOL Gender Identity Not on file Sexual Orientation Not on file documented as of this encounter Last Filed Vital Signs Vital Sign Reading Time Taken Comments Blood Pressure - - Pulse 104 08/11/2007 9:45 AM WELL DRILL OPERATOR CABLE TOOL Temperature 36.7 C (98.1 F) 08/11/2007 9:45 AM WELL DRILL OPERATOR CABLE TOOL Respiratory Rate 20 08/11/2007 9:45 AM WELL DRILL OPERATOR CABLE TOOL Oxygen Saturation - - Inhaled Oxygen Concentration - - Weight 34 kg (75 lb) 08/11/2007 9:45 AM WELL DRILL OPERATOR CABLE TOOL Height - - Body Mass Index - - documented in this encounter Plan of Treatment Upcoming Encounters Date Type Department Care Team ([facility] Contact Info) Description 06/26/2025 9:00 AM CDT Video Visit [facility] Adult Psychiatry [place] [address] [address] [place] [address] Argelia Law, ARAMIS [address] [address] [place] [address] 08/08/2025 7:30 AM WELL DRILL OPERATOR CABLE TOOL Video Visit [facility] Adult Psychiatry [place] [address] [address] [place] [address] Argelia Law, ARAMIS [address] [address] [place] [address] 09/25/2025 8:00 AM WELL DRILL OPERATOR CABLE TOOL Office Visit [facility] Primary Care - Kirby Herrmann [address] [place] [address] [address] Kassy Jay MD [address] [place] [phone] documented as of this encounter Visit Diagnoses Not on filedocumented in this encounter Additional Health Concerns Infection Onset Date Last Indicated Resolved Time R/O COVID-19 06/02/2021 06/03/2021 06/03/2021 7:34 PM CDT R/O COVID-19 12/22/2022 12/22/2022 12/22/2022 12:2 5 PM CDT R/O COVID-19 09/07/2023 09/07/2023 09/07/2023 9:52 PM WELL DRILL OPERATOR CABLE TOOL documented as of this encounter Care Teams Production Broaching Machine Operator Relationship Specialty Start Date End Date Kassy Jay MD [address] [address] PCP - General Family Practice 12/04/22 documented as of this encounter
--- OUTSIDE RECORDS SUMMARY | 2025-06-22 09:31 | XMS_ITS | Encounter Summary ---
Author Organization [facility] Address [address] [place] [address] Care Team Providers Care Gas Pipe Layer Name Role Phone Kassy Jay MD Primary Care Provider [phone] Encounter Details Date Type Department Care Team (Late Contact Info) Description 1998 Outpatient Historical [facility] MAURICIO Yadav, Alley Cid MD [address] [place] [address] Social History Tobacco Use Types Packs/Day Years Used Date Smoking Tobacco: Never Assessed Comments Unknown Sex and Gender Information Value Date Recorded Sex Assigned at Not on file Legal Sex Female 4:02 AM INDUSTRIAL SAFETY AND HEALTH SPECIALIST Gender Identity Not on file Sexual Orientation Not on file documented as of this encounter Plan of Treatment Upcoming Encounters Date Type Department Care Team (Late Contact Info) Description 06/26/2025 9:00 AM CDT Video Visit [facility] Adult Psychiatry [address] [place] [address] Argelia Law NP [address] [place], [place] [address] [address] 08/08/2025 7:30 AM INDUSTRIAL SAFETY AND HEALTH SPECIALIST Video Visit [facility] Adult Psychiatry [address] [place] [address] Argelia Law NP [address] [address] [place] [address] 09/25/2025 8:00 AM INDUSTRIAL SAFETY AND HEALTH SPECIALIST Office Visit [facility] Primary Care - Kirby Herr[place] [address] [place] [place] [address] Kassy Jay MD [address] [place] [phone] documented as of this encounter Visit Diagnoses Not on filedocumented in this encounter Additional Health Concerns Infection Onset Date Last Indicated Resolved Time R/O COVID-19 06/02/2021 06/03/2021 06/03/2021 7:34 PM CDT R/O COVID-19 12/22/2022 12/22/2022 12/22/2022 12:2 5 PM CDT R/O COVID-19 09/07/2023 09/07/2023 09/07/2023 9:52 PM INDUSTRIAL SAFETY AND HEALTH SPECIALIST documented as of this encounter Care Teams Gas Pipe Layer Relationship Specialty Start Date End Date Kassy Jay MD [address] [place] [address] [phone] PCP - General Family Practice 12/04/22 documented as of this encounter
--- OUTSIDE RECORDS SUMMARY | 2025-06-22 09:31 | XMS_ITS | Encounter Summary ---
Author Organization [facility] Address [address] [place] [address] Care Team Providers Care Rn Mobile Name Role Phone Kassy Jay MD Primary Care Provider [phone] Encounter Details Date Type Department Care Team (Late Contact Info) Description 10/14/1999 Outpatient Historical [facility] Pediatrics - [facility] [address] [address] [place] [address] [place] [address] [place] [address] Social History Tobacco Use Types Packs/Day Years Used Date Smoking Tobacco: Never Assessed Comments Unknown Sex and Gender Information Value Date Recorded Sex Assigned at Not on file Legal Sex Female 4:02 AM WHOLESALE AND RETAIL MERCHANT Gender Identity Not on file Sexual Orientation Not on file documented as of this encounter Plan of Treatment Upcoming Encounters Date Type Department Care Team (Late Contact Info) Description 06/26/2025 9:00 AM CDT Video Visit [facility] Adult Psychiatry [place] [address] [phone] Argelia Law NP [address] [address] 08/08/2025 7:30 AM WHOLESALE AND RETAIL MERCHANT Video Visit [facility] Adult Psychiatry [place] [address] [address] [place] [address] Argelia Law NP [address]20 [facility] [address] [place] [address] 09/25/2025 8:00 AM WHOLESALE AND RETAIL MERCHANT Office Visit [facility] Primary Care - Kirby Herrmann [address] [place] [phone] Kassy Jay MD [address] [place] [address] documented as of this encounter Visit Diagnoses Not on filedocumented in this encounter Additional Health Concerns Infection Onset Date Last Indicated Resolved Time R/O COVID-19 06/02/2021 06/03/2021 06/03/2021 7:34 PM CDT R/O COVID-19 12/22/2022 12/22/2022 12/22/2022 12:2 5 PM CDT R/O COVID-19 09/07/2023 09/07/2023 09/07/2023 9:52 PM WHOLESALE AND RETAIL MERCHANT documented as of this encounter Care Teams Rn Mobile Relationship Specialty Start Date End Date Kassy Jay MD [address] [place] [address] [address] PCP - General Family Practice 12/04/22 documented as of this encounter
--- OUTSIDE RECORDS SUMMARY | 2025-06-22 09:31 | XMS_ITS | Encounter Summary ---
Author Organization [facility] Address [address] [place] [address] Care Team Providers Care Nutrition Technician Name Role Phone Kassy Jay MD Primary Care Provider [phone] Encounter Details Date Type Department Care Team (Late Contact Info) Description 08/16/1999 Outpatient Historical [facility] [place]s - [place] [address] [address] [facility] [address] [place] [address] Darren Tabor MD NO ADDRESS ON FILE Social History Tobacco Use Types Packs/Day Years Used Date Smoking Tobacco: Never Assessed Comments Unknown Sex and Gender Information Value Date Recorded Sex Assigned at Not on file Legal Sex Female 4:02 AM RIVET CATCHER Gender Identity Not on file Sexual Orientation Not on file documented as of this encounter Plan of Treatment Upcoming Encounters Date Type Department Care Team (Late Contact Info) Description 06/26/2025 9:00 AM CDT Video Visit [facility] Adult Psychiatry [address] [address] Argelia Law NP [address] [place] [address] 08/08/2025 7:30 AM RIVET CATCHER Video Visit [facility] Adult Psychiatry [address] [address] Argelia Law NP [address] [place] [address] [place] [address] 09/25/2025 8:00 AM RIVET CATCHER Office Visit [facility] Primary Care - Kirby Herrmann [address] [place] [address] Kassy Jay MD [address] [place] [place] [place] [place] [phone] documented as of this encounter Visit Diagnoses Not on filedocumented in this encounter Additional Health Concerns Infection Onset Date Last Indicated Resolved Time R/O COVID-19 06/02/2021 06/03/2021 06/03/2021 7:34 PM CDT R/O COVID-19 12/22/2022 12/22/2022 12/22/2022 12:2 5 PM CDT R/O COVID-19 09/07/2023 09/07/2023 09/07/2023 9:52 PM RIVET CATCHER documented as of this encounter Care Teams Nutrition Technician Relationship Specialty Start Date End Date Kassy Jay MD [address] [place] [phone] PCP - General Family Practice 12/04/22 documented as of this encounter
--- OUTSIDE RECORDS SUMMARY | 2025-06-22 09:31 | XMS_ITS | Encounter Summary ---
Author Organization [facility] Address [address] [place] [address] Care Team Providers Care Hosiery Looper Name Role Phone Kassy Jay MD Primary Care Provider Encounter Details Date Type Department Care Team (Late Contact Info) Description 02/11/1999 Outpatient Historical [facility] Pediatrics - [facility] [address] [address] [facility] [address] [place] [address] Darren Tabor MD NO ADDRESS ON FILE Social History Tobacco Use Types Packs/Day Years Used Date Smoking Tobacco: Never Assessed Comments Unknown Sex and Gender Information Value Date Recorded Sex Assigned at Not on file Legal Sex Female 4:02 AM CARD SERVICES SPECIALIST Gender Identity Not on file Sexual Orientation Not on file documented as of this encounter Plan of Treatment Upcoming Encounters Date Type Department Care Team (Late Contact Info) Description 06/26/2025 9:00 AM CDT Video Visit [facility] Adult Psychiatry [address] [address] Argelia Law NP [address] [place] [address] 08/08/2025 7:30 AM CARD SERVICES SPECIALIST Video Visit [facility] Adult Psychiatry [address] [address] Argelia Law NP [address] [address] [place] [address] 09/25/2025 8:00 AM CARD SERVICES SPECIALIST Office Visit [facility] Primary Care - Kirby Herrmann [address] [place] [address] [address] Kassy aJy MD [address] [phone] documented as of this encounter Visit Diagnoses Not on filedocumented in this encounter Additional Health Concerns Infection Onset Date Last Indicated Resolved Time R/O COVID-19 06/02/2021 06/03/2021 06/03/2021 7:34 PM CDT R/O COVID-19 12/22/2022 12/22/2022 12/22/2022 12:2 5 PM CDT R/O COVID-19 09/07/2023 09/07/2023 09/07/2023 9:52 PM CARD SERVICES SPECIALIST documented as of this encounter Care Teams Hosiery Looper Relationship Specialty Start Date End Date Kassy Jay MD [address] [place] [phone] PCP - General Family Practice 12/04/22 documented as of this encounter
--- OUTSIDE RECORDS SUMMARY | 2025-06-22 09:31 | XMS_ITS | Encounter Summary ---
Author Organization [facility] Address [address] [place] [address] Care Team Providers Care Cycle Specialist Name Role Phone Kassy Jay MD Primary Care Provider [phone] Encounter Details Date Type Department Care Team (Late st Contact Info) Description 12/06/2007 Orders Only [facility] Pediatrics - [facility] [address] [facility] [address] [place] [address] [place] [address] [facility] [address] [place] [address] Social History Tobacco Use Types Packs/Day Years Used Date Smoking Tobacco: Never Assessed Comments Unknown Sex and Gender Information Value Date Recorded Sex Assigned at Not on file Legal Sex Female 4:02 AM OVERHEAD DISTRIBUTION ENGINEER Gender Identity Not on file Sexual Orientation Not on file documented as of this encounter Progress Notes * Lacie Malik MD - 02/24/2008 6:49 PM CDT PATIENT'S AGE: 7 yrs, 9 mths, 1 wk, 3 days VITALS: TEMP: 98.4??f Oral PULSE: 116 Apical, Regular RESPIRATIONS: 20. WEIGHT: [id number] NURSE NAME: Lakeshia Fan J ACCOMPANIED BY: [...] [facility] Adult Psychiatry [place] [address] [address] [place], [place] [address] Argelia Law, [place] [address] [address] [place] [address] 08/08/2025 7:30 AM OVERHEAD DISTRIBUTION ENGINEER Video Visit [facility] Adult Psychiatry [place] [address] [address] [place] [address] Argelia Law NP [address] [address] [place] [address] 09/25/2025 8:00 AM OVERHEAD DISTRIBUTION ENGINEER Office Visit [facility] Primary Care - Kirby Herrmann [address] [place] [address] Kassy Jay MD [address] [place] [address] documented as of this encounter Visit Diagnoses Not on filedocumented in this encounter Additional Health Concerns Infection Onset Date Last Indicated Resolved Time R/O COVID-19 06/02/2021 06/03/2021 06/03/2021 7:34 PM CDT R/O COVID-19 12/22/2022 12/22/2022 12/22/2022 12:2 5 PM CDT R/O COVID-19 09/07/2023 09/07/2023 09/07/2023 9:52 PM OVERHEAD DISTRIBUTION ENGINEER documented as of this encounter Care Teams Cycle Specialist Relationship Specialty Start Date End Date Kassy Jay MD [address] [place] [address] [phone] PCP - General Family Practice 12/04/22 documented as of this encounter
--- OUTSIDE RECORDS SUMMARY | 2025-06-22 09:31 | XMS_ITS | Encounter Summary ---
Author Organization [facility] Address [address] [place] [address] Care Team Providers Care Industrial Electrician Journeyman Name Role Phone Kassy Jay MD Primary Care Provider [phone] Encounter Details Date Type Department Care Team (Late Contact Info) Description 05/04/2008 Outpatient Historical [facility] [address] [facility] [address] [place] [address] Headache Social History Tobacco Use Types Packs/Day Years Used Date Smoking Tobacco: Never Assessed Comments No Sex and Gender Information Value Date Recorded Sex Assigned at Not on file Legal Sex Female 4:02 AM CRA Gender Identity Not on file Sexual Orientation Not on file documented as of this encounter Plan of Treatment Upcoming Encounters Date Type Department Care Team ([facility] Contact Info) Description 06/26/2025 9:00 AM CDT Video Visit [facility] Adult Psychiatry [address] [phone] Argelia Law NP [address] [address] 08/08/2025 7:30 AM CRA Video Visit [facility] Adult Psychiatry [address] [phone] Debbie Lawney John, OUTPATIENT THERAPIST [address] [address] [place] [address] 09/25/2025 8:00 AM CRA Office Visit [facility] Primary Care - Kirby Herrmann [address] [place] [address] [address] Kassy Jay MD [address] [phone] documented as of this encounter Visit Diagnoses Diagnosis Headache(784.0) Headache documented in this encounter Additional Health Concerns Infection Onset Date Last Indicated Resolved Time R/O COVID-19 06/02/2021 06/03/2021 06/03/2021 7:34 PM CDT R/O COVID-19 12/22/2022 12/22/2022 12/22/2022 12:2 5 PM CDT R/O COVID-19 09/07/2023 09/07/2023 09/07/2023 9:52 PM CRA documented as of this encounter Care Teams Industrial Electrician Journeyman Relationship Specialty Start Date End Date Kassy Jay MD [address] [place] [phone] PCP - General Family Practice 12/04/22 documented as of this encounter
--- OUTSIDE RECORDS SUMMARY | 2025-06-22 09:31 | XMS_ITS | Encounter Summary ---
Author Organization [facility] Address [address] [place] [address] Care Team Providers Care Cook Helper Vegetable Name Role Phone Kassy Jay MD Primary Care Provider [phone] Encounter Details Date Type Department Care Team (Late Contact Info) Description 1998 Outpatient Historical [facility] Pediatrics - [facility] [address] [address] [facility] [address] [place] [address] Darren Tabor MD NO ADDRESS ON FILE Social History Tobacco Use Types Packs/Day Years Used Date Smoking Tobacco: Never Assessed Comments Unknown Sex and Gender Information Value Date Recorded Sex Assigned at Not on file Legal Sex Female 4:02 AM FOREST SUPERVISOR Gender Identity Not on file Sexual Orientation Not on file documented as of this encounter Plan of Treatment Upcoming Encounters Date Type Department Care Team (Late Contact Info) Description 06/26/2025 9:00 AM CDT Video Visit [facility] Adult Psychiatry [address] [address] Argelia Law NP [address] [place] [address] 08/08/2025 7:30 AM FOREST SUPERVISOR Video Visit [facility] Adult Psychiatry [address] [address] Argelia Law NP [address] [address] [place] [address] 09/25/2025 8:00 AM FOREST SUPERVISOR Office Visit [facility] Primary Care - Kirby Herrmann [address] [place] [address] [address] Kassy Jay MD [address] [place] [phone] documented as of this encounter Visit Diagnoses Not on filedocumented in this encounter Additional Health Concerns Infection Onset Date Last Indicated Resolved Time R/O COVID-19 06/02/2021 06/03/2021 06/03/2021 7:34 PM CDT R/O COVID-19 12/22/2022 12/22/2022 12/22/2022 12:2 5 PM CDT R/O COVID-19 09/07/2023 09/07/2023 09/07/2023 9:52 PM FOREST SUPERVISOR documented as of this encounter Care Teams Cook Helper Vegetable Relationship Specialty Start Date End Date Kassy Jay MD [address] [place] [address] [phone] PCP - General Family Practice 12/04/22 documented as of this encounter
--- OUTSIDE RECORDS SUMMARY | 2025-06-22 09:31 | XMS_ITS | Encounter Summary ---
Author Organization [facility] Address [address] [place] [address] Care Team Providers Care Double Head Machine Operator Name Role Phone Kassy Jay MD Primary Care Provider [phone] Encounter Details Date Type Department Care Team (Late Contact Info) Description 11/20/1999 Outpatient Historical [facility] Pediatrics - [facility] [address] [facility] [address] [place] [address] [place] [address] [facility] [address] [address] [place] [address] Social History Tobacco Use Types Packs/Day Years Used Date Smoking Tobacco: Never Assessed Comments Unknown Sex and Gender Information Value Date Recorded Sex Assigned at Not on file Legal Sex Female 4:02 AM CHUCKING AND BORING MACHINE OPERATOR Gender Identity Not on file Sexual Orientation Not on file documented as of this encounter Plan of Treatment Upcoming Encounters Date Type Department Care Team (Late Contact Info) Description 06/26/2025 9:00 AM CDT Video Visit [facility] Adult Psychiatry [place] [address] [address] Argelia Law NP [address] [address] 08/08/2025 7:30 AM CHUCKING AND BORING MACHINE OPERATOR Video Visit [facility] Adult Psychiatry [place] [address] [address] [place] [address] Argelia Law NP [address] [facility] [address] [place] [address] 09/25/2025 8:00 AM CHUCKING AND BORING MACHINE OPERATOR Office Visit [facility] Primary Care - Kirby Herrmann [address] [place] [address] Kassy Jay MD [address] [place] [address] documented as of this encounter Visit Diagnoses Not on filedocumented in this encounter Additional Health Concerns Infection Onset Date Last Indicated Resolved Time R/O COVID-19 06/02/2021 06/03/2021 06/03/2021 7:34 PM CDT R/O COVID-19 12/22/2022 12/22/2022 12/22/2022 12:2 5 PM CDT R/O COVID-19 09/07/2023 09/07/2023 09/07/2023 9:52 PM CHUCKING AND BORING MACHINE OPERATOR documented as of this encounter Care Teams Double Head Machine Operator Relationship Specialty Start Date End Date Kassy Jay MD [address] [place] [address] [phone] PCP - General Family Practice 12/04/22 documented as of this encounter
--- OUTSIDE RECORDS SUMMARY | 2025-06-22 09:31 | XMS_ITS | Clinical Summary ---
Author Organization [facility] Address [address] [place] [address] Care Team Providers Care Last Pattern Grader Name Role Phone Kassy Jay MD Primary Care Provider [phone] No, Physician Unavailable Allergies Active Allergy Reactions [...] 08/25/2022 Assessment & Plan (08/26/2022 1:10 PM MEDICAL ILLUSTRATOR): - pt presenting after shaking episode similar to previous episodes of psychogenic nonepileptic seizures. 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 - Admitted for Observation secondary to sedation. Back to baseline mental status today. Assessment & Plan (08/25/2022 10:54 PM MEDICAL ILLUSTRATOR): - pt presenting after shaking episode similar [...] of hypoglycemia since April, was following with [facility] Endocrinology. Recently started on diazoxide. BG [...] sent hypoglycemia labs. Discussed with veronica, outpatient field service engineer Dr. Mejia will f/u with results & [...] 07/20/2022 Assessment & Plan (08/25/2022 10:40 PM MEDICAL ILLUSTRATOR): -cont linzess Assessment & Plan (07/21/2022 10:08 AM CDT): - Continue home Linzess and Colace Assessment & Plan (07/20/2022 8:31 PM CDT): -Continue home Linzess and Colace. Asthma 11/06/2020 Assessment & Plan (08/26/2022 1:11 PM MEDICAL ILLUSTRATOR): - stable, cont home inhalers Assessment & Plan (08/25/2022 10:41 PM MEDICAL ILLUSTRATOR): -cont home inhalers Gastroesophageal reflux disease 11/06/2020 Assessment & Plan (08/26/2022 1:11 PM MEDICAL ILLUSTRATOR): -cont pepcid and ppi Assessment & Plan (08/25/2022 10:40 PM MEDICAL ILLUSTRATOR): - cont pepcid and ppi Assessment & [...] 9:01 AM CDT): Patient reports follows with [facility] psychiatry. Pharmacy list confirmed with patient. Concern of polypharmacy discussed with patient. - witnessed pseudoseizure 07/22 AM, VS stable and BG 111. No meds given. Self resolved. - Continue home Lamictal, Topomax and gabapentin Assessment & Plan (07/20/2022 8:27 PM CDT): -Patient reports follows with [facility] psychiatry. Pharmacy list confirmed with patient. [...] celexa Assessment & Plan (08/26/2022 1:11 PM MEDICAL ILLUSTRATOR): - patient with chart history of BARBIE, MDD, ptsd, and borderline personality disorder. - follows with psychiatrist and on extensive medication regimen. - cont home duloxetine, lurasidone, lamotrigine, and prazosin. - held several medications including nortriptyline, temazepam,clonazepam and gabapentin given drowsiness Assessment & Plan (08/25/2022 10:46 PM MEDICAL ILLUSTRATOR): - patient with chart history of BARBIE, [...] 01/21/2017 Overview (05/17/2020): Overview: Overview: [facility]inks from [facility]; has follow up with 02/06/17 Asthma, moderate [...] on file Legal Sex Female 11:33 PM MEDICAL ILLUSTRATOR Gender Identity Female 05/17/2020 9:28 AM CDT Sexual Orientation Straight 05/17/2020 9: 28 AM CDT Obstetrics History Last Filed Vital Signs Vital Sign Reading Time Taken Comments Blood Pressure 106/54 08/26/2022 8:50 AM MEDICAL ILLUSTRATOR Pulse 92 08/26/2022 8:18 AM MEDICAL ILLUSTRATOR Temperature 36.6 C (97.9 F) 08/26/2022 8:18 AM MEDICAL ILLUSTRATOR Respiratory Rate 16 08/26/2022 8:18 AM MEDICAL ILLUSTRATOR Oxygen Saturation 97% 08/26/2022 8:18 AM MEDICAL ILLUSTRATOR Inhaled Oxygen Concentration - - Weight 93.4 kg (205 lb 14.4 oz) 022 11:06 PM MEDICAL ILLUSTRATOR Height 154.9 cm (5' 1) 08/25/2022 11:0 6 PM MEDICAL ILLUSTRATOR Body Mass Index 38.9 08/25/2022 11:06 PM MEDICAL ILLUSTRATOR Plan of Treatment Health Maintenance Due Date [...] Varicella Vaccines Completed 02/15/2016, 02/26/1999 Insurance [facility]UE [facility] CHOICE OOS [facility] CHOICE OOS Member Subscriber Plan / Payer (Ef fective 2017-Present) Name:Isaura Holland Relation to Subscriber:Child Name:AMALIAORIN Date of :1899 (Home) Address: [address] [place] [place] [address] Payer ID:[id number] (NAIC) Type:[employer] Address: [address] [place] CHOICE [place]UE [place] Advance Directives For more information, please contact: [phone] * Full Code (Latest Code Status on File) Date Activated Date Inactivated Comments 08/25/2022 11:05 PM 08/26/2022 6:08 PM * Full Code Date Activated Date Inactivated Comments 07/20/2022 7:11 PM 07/23/2022 7:19 PM Care Teams Last Pattern Grader Relationship Specialty Start Date End Date Kassy Jay MD [address] [place] [phone] PCP - General Family Practice 07/21/22 No, Physician 08/26/22
--- OUTSIDE RECORDS SUMMARY | 2025-06-22 09:31 | XMS_ITS | Encounter Summary ---
Author Organization [facility] Address [address] [place] [address] Care Team Providers Care Data Coder Operator Name Role Phone Kassy Jay MD Primary Care Provider [phone] Encounter Details Date Type Department Care Team (Late Contact Info) Description 04/19/1999 Outpatient Historical [facility] Pediatrics - [facility] [address] [address] [facility] [address] [place] [address] Darren Tabor MD NO ADDRESS ON FILE Social History Tobacco Use Types Packs/Day Years Used Date Smoking Tobacco: Never Assessed Comments Unknown Sex and Gender Information Value Date Recorded Sex Assigned at Not on file Legal Sex Female 4:02 AM PIPE FITTER Gender Identity Not on file Sexual Orientation Not on file documented as of this encounter Plan of Treatment Upcoming Encounters Date Type Department Care Team (Late Contact Info) Description 06/26/2025 9:00 AM CDT Video Visit [facility] Adult Psychiatry [address] [address] Argelia Law NP [address] [place] [address] 08/08/2025 7:30 AM PIPE FITTER Video Visit [facility] Adult Psychiatry [address] [address] Argelia Law NP [address] [place] [address] [place] [address] 09/25/2025 8:00 AM PIPE FITTER Office Visit [facility] Primary Care - Kirby Herrmann [address] [place] [address] Kassy Jay MD [address] [place] [phone] documented as of this encounter Visit Diagnoses Not on filedocumented in this encounter Additional Health Concerns Infection Onset Date Last Indicated Resolved Time R/O COVID-19 06/02/2021 06/03/2021 06/03/2021 7:34 PM CDT R/O COVID-19 12/22/2022 12/22/2022 12/22/2022 12:2 5 PM CDT R/O COVID-19 09/07/2023 09/07/2023 09/07/2023 9:52 PM PIPE FITTER documented as of this encounter Care Teams Data Coder Operator Relationship Specialty Start Date End Date Kassy Jay MD [address] [place] [phone] PCP - General Family Practice 12/04/22 documented as of this encounter
--- OUTSIDE RECORDS SUMMARY | 2025-06-22 09:31 | XMS_ITS | Encounter Summary ---
Author Organization [facility] Address [address] [place] [address] Care Team Providers Care Aluminum Container Tester Name Role Phone Kassy Jay MD Primary Care Provider [phone] Encounter Details Date Type Department Care Team (Late Contact Info) Description 02/26/1999 Outpatient Historical [facility] Pediatrics - [facility] [address] [address] [facility] [address] [place] [address] Darren Tabor MD NO ADDRESS ON FILE Social History Tobacco Use Types Packs/Day Years Used Date Smoking Tobacco: Never Assessed Comments Unknown Sex and Gender Information Value Date Recorded Sex Assigned at Not on file Legal Sex Female 4:02 AM UNIVERSAL BANKER Gender Identity Not on file Sexual Orientation Not on file documented as of this encounter Plan of Treatment Upcoming Encounters Date Type Department Care Team (Late Contact Info) Description 06/26/2025 9:00 AM CDT Video Visit [facility] Adult Psychiatry [address] [address] Argelia Law NP [address] [place] [address] 08/08/2025 7:30 AM UNIVERSAL BANKER Video Visit [facility] Adult Psychiatry [address] [address] Argelia Law NP [address] [place] [address] [place] [address] 09/25/2025 8:00 AM UNIVERSAL BANKER Office Visit [facility] Primary Care - Kirby Herrmann [address] [place] [address] Kassy Jay MD [address] [place] [address] [phone] documented as of this encounter Visit Diagnoses Not on filedocumented in this encounter Additional Health Concerns Infection Onset Date Last Indicated Resolved Time R/O COVID-19 06/02/2021 06/03/2021 06/03/2021 7:34 PM CDT R/O COVID-19 12/22/2022 12/22/2022 12/22/2022 12:2 5 PM CDT R/O COVID-19 09/07/2023 09/07/2023 09/07/2023 9:52 PM UNIVERSAL BANKER documented as of this encounter Care Teams Aluminum Container Tester Relationship Specialty Start Date End Date Kassy Jay MD [address] [place] [address] [phone] PCP - General Family Practice 12/04/22 documented as of this encounter
--- OUTSIDE RECORDS SUMMARY | 2025-06-22 09:31 | XMS_ITS | Encounter Summary ---
Author Organization [facility] Address [address] [place] [address] Care Team Providers Care Glaciologist Name Role Phone Kassy Jay MD Primary Care Provider [phone] Encounter Details Date Type Department Care Team (Late Contact Info) Description 08/06/[address] [facility] Pediatrics - [facility] [address] [address] [facility] [address] [place] [address] Darren Tabor MD NO ADDRESS ON FILE Social History Tobacco Use Types Packs/Day Years Used Date Smoking Tobacco: Never Assessed Comments Unknown Sex and Gender Information Value Date Recorded Sex Assigned at Not on file Legal Sex Female 4:02 AM BOOM SUPERVISOR Gender Identity Not on file Sexual Orientation Not on file documented as of this encounter Plan of Treatment Upcoming Encounters Date Type Department Care Team (Late Contact Info) Description 06/26/2025 9:00 AM CDT Video Visit [facility] Adult Psychiatry [address] [address] Argelia Law NP [address] [place] [address] 08/08/2025 7:30 AM BOOM SUPERVISOR Video Visit [facility] Adult Psychiatry [address] [address] Argelia Law NP [address] [place] [address] [place] [address] 09/25/2025 8:00 AM BOOM SUPERVISOR Office Visit [facility] Primary Care - Kirby Herrmann [address] [place] [address] [address] [phone] Kassy Jay MD [address] [place] [phone] documented as of this encounter Visit Diagnoses Not on filedocumented in this encounter Additional Health Concerns Infection Onset Date Last Indicated Resolved Time R/O COVID-19 06/02/2021 06/03/2021 06/03/2021 7:34 PM CDT R/O COVID-19 12/22/2022 12/22/2022 12/22/2022 12:2 5 PM CDT R/O COVID-19 09/07/2023 09/07/2023 09/07/2023 9:52 PM BOOM SUPERVISOR documented as of this encounter Care Teams Glaciologist Relationship Specialty Start Date End Date Kassy Jay MD [address] [place] [place] [phone] PCP - General Family Practice 12/04/22 documented as of this encounter
--- OUTSIDE RECORDS SUMMARY | 2025-06-22 09:31 | XMS_ITS | Encounter Summary ---
Author Organization [facility] Address [address] [place] [address] Care Team Providers Care Track Layer Head Name Role Phone Kassy Jay MD Primary Care Provider [phone] Encounter Details Date Type Department Care Team ([facility] Contact Info) Description 1998 Outpatient Historical [facility] Tabor, Darren Ruiz MD NO ADDRESS ON FILE Social History Tobacco Use Types Packs/Day Years Used Date Smoking Tobacco: Never Assessed Comments Unknown Sex and Gender Information Value Date Recorded Sex Assigned at Not on file Legal Sex Female 4:02 AM LOADER DEMOLDER Gender Identity Not on file Sexual Orientation Not on file documented as of this encounter Plan of Treatment Upcoming Encounters Date Type Department Care Team ([facility] Contact Info) Description 06/26/2025 9:00 AM CDT Video Visit [facility] Adult [place]iatry [address] [place] [address] Argelia Law NP [address] [place], [place] [address] [address] 08/08/2025 7:30 AM LOADER DEMOLDER Video Visit [facility] [place] Psychiatry [address] [address] Argelia Law NP [address] [place] [address] [address] 09/25/2025 8:00 AM LOADER DEMOLDER Office Visit [facility] Primary Care - Kirby Herrmann [address] [place] [address] [address] Kassy Jay MD [address] [place] [address] [phone] documented as of this encounter Visit Diagnoses Not on filedocumented in this encounter Additional Health Concerns Infection Onset Date Last Indicated Resolved Time R/O COVID-19 06/02/2021 06/03/2021 06/03/2021 7:34 PM CDT R/O COVID-19 12/22/2022 12/22/2022 12/22/2022 12:2 5 PM CDT R/O COVID-19 09/07/2023 09/07/2023 09/07/2023 9:52 PM LOADER DEMOLDER documented as of this encounter Care Teams Track Layer Head Relationship Specialty Start Date End Date Kassy Jay MD [address] [place] [address] [phone] PCP - General Family Practice 12/04/22 documented as of this encounter
--- OUTSIDE RECORDS SUMMARY | 2025-06-22 09:31 | XMS_ITS | Encounter Summary ---
Author Organization [facility] Address [address] [place] [address] Care Team Providers Care Clinical Specialist Name Role Phone Kassy Jay MD Primary Care Provider [phone] Encounter Details Date Type Department Care Team (Late Contact Info) Description 1998 Outpatient Historical [facility] Pediatrics - [facility] [address] [address] [facility] [address] [place] [address] Garrett Mittal MD [address] [facility] [address] [place] [address] Social History Tobacco Use Types Packs/Day Years Used Date Smoking Tobacco: Never Assessed Comments Unknown Sex and Gender Information Value Date Recorded Sex Assigned at Not on file Legal Sex Female 4:02 AM INSTRUCTOR TRAFFIC SAFETY Gender Identity Not on file Sexual Orientation Not on file documented as of this encounter Plan of Treatment Upcoming Encounters Date Type Department Care Team (Late Contact Info) Description 06/26/2025 9:00 AM CDT Video Visit [facility] Adult Psychiatry [address] [phone] Argelia Law NP [address] [address] 08/08/2025 7:30 AM INSTRUCTOR TRAFFIC SAFETY Video Visit [facility] Adult Psychiatry [address] [place] [address] Thanh Argelia Renaldosharmaine, [place] [address] [place] [address] [address] [place] [address] 09/25/2025 8:00 AM INSTRUCTOR TRAFFIC SAFETY Office Visit [facility] Primary Care - Kirby Herrmann [address] [place] [address] [phone] Kassy Jay MD [address] [place] [address] [phone] documented as of this encounter Visit Diagnoses Not on filedocumented in this encounter Additional Health Concerns Infection Onset Date Last Indicated Resolved Time R/O COVID-19 06/02/2021 06/03/2021 06/03/2021 7:34 PM CDT R/O COVID-19 12/22/2022 12/22/2022 12/22/2022 12:2 5 PM CDT R/O COVID-19 09/07/2023 09/07/2023 09/07/2023 9:52 PM INSTRUCTOR TRAFFIC SAFETY documented as of this encounter Care Teams Clinical Specialist Relationship Specialty Start Date End Date Kassy Jay MD [address] [place] [phone] PCP - General Family Practice 12/04/22 documented as of this encounter
--- OUTSIDE RECORDS SUMMARY | 2025-06-22 09:31 | XMS_ITS | Encounter Summary ---
Author Organization [facility] Address [address] [place] [address] Care Team Providers Care Performance Manager Name Role Phone Kassy Jay MD Primary Care Provider [phone] Encounter Details Date Type Department Care Team (Late Contact Info) Description 1998 Outpatient Historical [facility] Pediatrics - [place] [address] [address] [facility] [address] [place] [address] Darren Tabor MD NO ADDRESS ON FILE Social History Tobacco Use Types Packs/Day Years Used Date Smoking Tobacco: Never Assessed Comments Unknown Sex and Gender Information Value Date Recorded Sex Assigned at Not on file Legal Sex Female 4:02 AM ENGINEERING RESEARCH MANAGER Gender Identity Not on file Sexual Orientation Not on file documented as of this encounter Plan of Treatment Upcoming Encounters Date Type Department Care Team (Late Contact Info) Description 06/26/2025 9:00 AM CDT Video Visit [facility] Adult Psychiatry [address] [address] Argelia Law NP [address] [place] [address] 08/08/2025 7:30 AM ENGINEERING RESEARCH MANAGER Video Visit [facility] Adult Psychiatry [address] [address] Argelia Law NP [address] [place] [address] [place] [address] 09/25/2025 8:00 AM ENGINEERING RESEARCH MANAGER Office Visit [facility] Primary Care - Kirby Herrmann [address] [place] [address] [phone] Kassy Jay MD [address] [phone] documented as of this encounter Visit Diagnoses Not on filedocumented in this encounter Additional Health Concerns Infection Onset Date Last Indicated Resolved Time R/O COVID-19 06/02/2021 06/03/2021 06/03/2021 7:34 PM CDT R/O COVID-19 12/22/2022 12/22/2022 12/22/2022 12:2 5 PM CDT R/O COVID-19 09/07/2023 09/07/2023 09/07/2023 9:52 PM ENGINEERING RESEARCH MANAGER documented as of this encounter Care Teams Performance Manager Relationship Specialty Start Date End Date Kassy Jay MD [address] [place] [phone] PCP - General Family Practice 12/04/22 documented as of this encounter
--- OUTSIDE RECORDS SUMMARY | 2025-06-22 09:31 | XMS_ITS | Encounter Summary ---
Author Organization [facility] Address [address] [place] [address] Care Team Providers Care Engine Service Repairer Name Role Phone Kassy Jay MD Primary Care Provider [phone] Encounter Details Date Type Department Care Team (Late Contact Info) Description 1998 Outpatient Historical [facility] Pediatrics - [facility] [address] [address] [facility] [address] [place] [address] [place] [address] [facility] [address] [place] [address] Social History Tobacco Use Types Packs/Day Years Used Date Smoking Tobacco: Never Assessed Comments Unknown Sex and Gender Information Value Date Recorded Sex Assigned at Not on file Legal Sex Female 4:02 AM LIVESTOCK FARM WORKERS Gender Identity Not on file Sexual Orientation Not on file documented as of this encounter Plan of Treatment Upcoming Encounters Date Type Department Care Team (Late Contact Info) Description 06/26/2025 9:00 AM CDT Video Visit [facility] Adult Psychiatry [place] [address] [address] Argelia Law NP [address] [address] 08/08/2025 7:30 AM LIVESTOCK FARM WORKERS Video Visit [facility] Adult Psychiatry [place] [address] [place] [address] [place] [address] Argelia Law NP [address] [facility] [address] [place] [address] 09/25/2025 8:00 AM LIVESTOCK FARM WORKERS Office Visit [facility] Primary Care - Kirby Herrmann [address] [address] Kassy Jay MD [address] [place] [phone] documented as of this encounter Visit Diagnoses Not on filedocumented in this encounter Additional Health Concerns Infection Onset Date Last Indicated Resolved Time R/O COVID-19 06/02/2021 06/03/2021 06/03/2021 7:34 PM CDT R/O COVID-19 12/22/2022 12/22/2022 12/22/2022 12:2 5 PM CDT R/O COVID-19 09/07/2023 09/07/2023 09/07/2023 9:52 PM LIVESTOCK FARM WORKERS documented as of this encounter Care Teams Engine Service Repairer Relationship Specialty Start Date End Date Kassy Jay MD [address] [place] [address] [phone] PCP - General Family Practice 12/04/22 documented as of this encounter
--- OUTSIDE RECORDS SUMMARY | 2025-06-22 09:31 | XMS_ITS | Encounter Summary ---
Author Organization [facility] Address [address] [place] [address] Care Team Providers Care Special Procedures Technologist Name Role Phone Kassy Jay MD Primary Care Provider [phone] Encounter Details Date Type Department Care Team (Late Contact Info) Description [address] [facility] Pediatrics - [facility] [address] [address] [facility] [address] [place] [address] Darren Tabor MD NO ADDRESS ON FILE Social History Tobacco Use Types Packs/Day Years Used Date Smoking Tobacco: Never Assessed Comments Unknown Sex and Gender Information Value Date Recorded Sex Assigned at Not on file Legal Sex Female 4:02 AM CASE RESOURCE MANAGER Gender Identity Not on file Sexual Orientation Not on file documented as of this encounter Plan of Treatment Upcoming Encounters Date Type Department Care Team (Late Contact Info) Description 06/26/2025 9:00 AM CDT Video Visit [facility] Adult Psychiatry [address] [address] Argelia Law NP [address] [place] [address] 08/08/2025 7:30 AM CASE RESOURCE MANAGER Video Visit [facility] Adult Psychiatry [address] [address] Argelia Law NP [address] [place] [address] [place] [address] 09/25/2025 8:00 AM CASE RESOURCE MANAGER Office Visit [facility] Primary Care - Kirby Herrmann [address] [place] [phone] Kassy Jay MD [address] [place] [phone] documented as of this encounter Visit Diagnoses Not on filedocumented in this encounter Additional Health Concerns Infection Onset Date Last Indicated Resolved Time R/O COVID-19 06/02/2021 06/03/2021 06/03/2021 7:34 PM CDT R/O COVID-19 12/22/2022 12/22/2022 12/22/2022 12:2 5 PM CDT R/O COVID-19 09/07/2023 09/07/2023 09/07/2023 9:52 PM CASE RESOURCE MANAGER documented as of this encounter Care Teams Special Procedures Technologist Relationship Specialty Start Date End Date Kassy Jay MD [address] [phone] PCP - General Family Practice 12/04/22 documented as of this encounter
--- OUTSIDE RECORDS SUMMARY | 2025-06-22 09:31 | XMS_ITS | Encounter Summary ---
Author Organization [facility] Address [address] [place] [address] Care Team Providers Care Steel Placer Name Role Phone Kassy Jay MD Primary Care Provider [phone] Encounter Details Date Type Department Care Team ([facility] Contact Info) Description 1998 Outpatient Historical [facility] MAURICIO Tabor, Darren Ruiz MD NO ADDRESS ON FILE Social History Tobacco Use Types Packs/Day Years Used Date Smoking Tobacco: Never Assessed Comments Unknown Sex and Gender Information Value Date Recorded Sex Assigned at Not on file Legal Sex Female 4:02 AM BABY REGISTRY SALES CONSULTANT Gender Identity Not on file Sexual Orientation Not on file documented as of this encounter Plan of Treatment Upcoming Encounters Date Type Department Care Team ([facility] Contact Info) Description 06/26/2025 9:00 AM CDT Video Visit [facility] Adult Psychiatry [address] [place] [address] Argelia Law NP [address] [place], [place] [address] [address] 08/08/2025 7:30 AM BABY REGISTRY SALES CONSULTANT Video Visit [facility] Adult Psychiatry [address] [place] [place] [address] Argelia Law NP [address] [place] [address] [place] [address] 09/25/2025 8:00 AM BABY REGISTRY SALES CONSULTANT Office Visit [facility] Primary Care - Kirby Herrmann [address] [place] [address] [address] Kassy Jay MD [address] [place] [phone] documented as of this encounter Visit Diagnoses Not on filedocumented in this encounter Additional Health Concerns Infection Onset Date Last Indicated Resolved Time R/O COVID-19 06/02/2021 06/03/2021 06/03/2021 7:34 PM CDT R/O COVID-19 12/22/2022 12/22/2022 12/22/2022 12:2 5 PM CDT R/O COVID-19 09/07/2023 09/07/2023 09/07/2023 9:52 PM BABY REGISTRY SALES CONSULTANT documented as of this encounter Care Teams Steel Placer Relationship Specialty Start Date End Date Kassy Jay MD [address] [place] [phone] PCP - General Family Practice 12/04/22 documented as of this encounter
--- OUTSIDE RECORDS SUMMARY | 2025-06-22 09:31 | XMS_ITS | Encounter Summary ---
Author Organization [facility] Address [address] [place] [address] Care Team Providers Care Cableway Operator Name Role Phone Kassy Jay MD Primary Care Provider [phone] Encounter Details Date Type Department Care Team (Late Contact Info) Description 12/06/2007 Outpatient Historical [facility] Pediatrics - [facility] [address] [facility] [address] [place] [address] [place] [address] [facility] [address] [place] [address] Social History Tobacco Use Types Packs/Day Years Used Date Smoking Tobacco: Never Assessed Comments Unknown Sex and Gender Information Value Date Recorded Sex Assigned at Not on file Legal Sex Female 4:02 AM EXTENSION FORESTER Gender Identity Not on file Sexual Orientation Not on file documented as of this encounter Plan of Treatment Upcoming Encounters Date Type Department Care Team (Late Contact Info) Description 06/26/2025 9:00 AM CDT Video Visit [facility] Adult Psychiatry [place] [address] [address] Argelia Law NP [address] [address] 08/08/2025 7:30 AM EXTENSION FORESTER Video Visit [facility] Adult Psychiatry [place] [address] [place] [address] [place] [address] Argelia Law NP [address] [facility] [address] [place] [address] 09/25/2025 8:00 AM EXTENSION FORESTER Office Visit [facility] Primary Care - Kirby Herrmann [address] [address] Kassy Jay MD [address] [place] [address] [phone] documented as of this encounter Visit Diagnoses Not on filedocumented in this encounter Additional Health Concerns Infection Onset Date Last Indicated Resolved Time R/O COVID-19 06/02/2021 06/03/2021 06/03/2021 7:34 PM CDT R/O COVID-19 12/22/2022 12/22/2022 12/22/2022 12:2 5 PM CDT R/O COVID-19 09/07/2023 09/07/2023 09/07/2023 9:52 PM EXTENSION FORESTER documented as of this encounter Care Teams Cableway Operator Relationship Specialty Start Date End Date Kassy Jay MD [address] [place] [address] [phone] PCP - General Family Practice 12/04/22 documented as of this encounter
--- OUTSIDE RECORDS SUMMARY | 2025-06-22 09:31 | XMS_ITS | Encounter Summary ---
Author Organization [facility] Address [address] [place] [address] Care Team Providers Care Ruching Machine Operator Name Role Phone Kassy Jay MD Primary Care Provider Encounter Details Date Type Department Care Team ([facility] Contact Info) Description 1998 Outpatient Historical [facility] MAURICIO Tabor, Darren Ruiz MD NO ADDRESS ON FILE Social History Tobacco Use Types Packs/Day Years Used Date Smoking Tobacco: Never Assessed Comments Unknown Sex and Gender Information Value Date Recorded Sex Assigned at Not on file Legal Sex Female 4:02 AM INTERNATIONAL BANK MANAGER Gender Identity Not on file Sexual Orientation Not on file documented as of this encounter Plan of Treatment Upcoming Encounters Date Type Department Care Team ([facility] Contact Info) Description 06/26/2025 9:00 AM CDT Video Visit [facility] [place] [address] [place] [address] Argelia Law NP [address] [place], [place] [address] [id number] 08/08/2025 7:30 AM INTERNATIONAL BANK MANAGER Video Visit [facility] [place] [address] [place] [phone] Argelia Law NP [address] [place] [address] [place] [address] 09/25/2025 8:00 AM INTERNATIONAL BANK MANAGER Office Visit [facility] [place] Primary Care - Kirby Herrmann [address] [place] [address] Kassy Jay MD [address] [place] [phone] documented as of this encounter Visit Diagnoses Not on filedocumented in this encounter Additional Health Concerns Infection Onset Date Last Indicated Resolved Time R/O COVID-19 06/02/2021 06/03/2021 06/03/2021 7:34 PM CDT R/O COVID-19 12/22/2022 12/22/2022 12/22/2022 12:2 5 PM CDT R/O COVID-19 09/07/2023 09/07/2023 09/07/2023 9:52 PM INTERNATIONAL BANK MANAGER documented as of this encounter Care Teams Ruching Machine Operator Relationship Specialty Start Date End Date Kassy Jay MD [address] [place] [place] [phone] PCP - General Family Practice 12/04/22 documented as of this encounter
--- OUTSIDE RECORDS SUMMARY | 2025-06-22 09:31 | XMS_ITS | Encounter Summary ---
Author Organization [facility] Address [address] [place] [address] Care Team Providers Care Rough Rib Grader Name Role Phone Kassy Jay MD Primary Care Provider [phone] Encounter Details Date Type Department Care Team (Late Contact Info) Description 1998 Outpatient Historical HIS [facility] DR[facility] MAURICIO Yadav, Alley Cid MD [address] [place] [phone] Social History Tobacco Use Types Packs/Day Years Used Date Smoking Tobacco: Never Assessed Comments Unknown Sex and Gender Information Value Date Recorded Sex Assigned at Not on file Legal Sex Female 4:02 AM LUMP ROOM SUPERVISOR Gender Identity Not on file Sexual Orientation Not on file documented as of this encounter Plan of Treatment Upcoming Encounters Date Type Department Care Team (Late Contact Info) Description 06/26/2025 9:00 AM CDT Video Visit [facility] [place]iat[place] [address] [place] [phone] Argelia Law NP [address] [place] [address] [place] [address] 08/08/2025 7:30 AM LUMP ROOM SUPERVISOR Video Visit [facility] Adult [place]iatry [address] [place] [address] Argelia Law NP [address] [address] [place] [address] 09/25/2025 8:00 AM LUMP ROOM SUPERVISOR Office Visit [facility] Primary Care - Kirby Herrmann [address] [place] [phone] Kassy Jay MD [address] [place] [phone] documented as of this encounter Visit Diagnoses Not on filedocumented in this encounter Additional Health Concerns Infection Onset Date Last Indicated Resolved Time R/O COVID-19 06/02/2021 06/03/2021 06/03/2021 7:34 PM CDT R/O COVID-19 12/22/2022 12/22/2022 12/22/2022 12:2 5 PM CDT R/O COVID-19 09/07/2023 09/07/2023 09/07/2023 9:52 PM LUMP ROOM SUPERVISOR documented as of this encounter Care Teams Rough Rib Grader Relationship Specialty Start Date End Date Kassy Jay MD [address] [place] [phone] PCP - General Family Practice 12/04/22 documented as of this encounter
--- OUTSIDE RECORDS SUMMARY | 2025-06-22 09:31 | XMS_ITS | Clinical Summary ---
Author Organization [facility] Address [address] [place] [address] Phone Care Team Providers Care Account Retention Representative Name Role Phone Kassy Jay MD Primary Care Provider [phone] Allergies Active Allergy Reactions Criticality Noted Date [...] (40 mg) by mouth daily. 30 Capsule Active cariprazine (Vraylar) 6 mg Capsule capsuleIndicatio ns:Unspecified mood (affective) disorder,Bipolar 1 disorder, mixed, partial remission (CMS/HCC),BARBIE (generalized anxiety disorder),Border line personality disorder (CMS/HCC) Take 1 Capsule (6 mg) by mouth daily. 30 Capsule 1 2024 Discontinued(R eorder) FLUoxetine (PROzac) 40 mg capsuleIndicatio ns:BARBIE (generalized anxiety disorder) Take 1 Capsule (40 mg) by mouth daily. 30 Capsule 025 2024 Discontinued amphetamine-dext roamphetamine (ADDERALL XR) [...] 10 mg 30 Tablet 025 2024 Discontinued LORazepam (ATIVAN) 2 mg tabletIndication s:BARBIE (generalized anxiety disorder) Take 1 Tablet (2 mg) by mouth 3 times daily as needed for Anxiety. 90 Tablet 025 2024 Discontinued(O ther) methylphenidate ER 27 [...] menses 01/21/2017 Overview (04/15/2021): Overview: [facility]; has follow up with 02/06/17 Overview: Overview: [facility]; has follow up with 02/06/17 Gastroesophageal reflux disease Asthma Elevated prolactin level Resolved Problems Problem Noted Date Diagnosed Date Resolved Date Adjustment disorder with mix ed disturbance of emotions and conduct 09/08/2023 03/22/2024 Axillary hyperhidrosis 06/17/202208/19 Overview (06/17/2022): Ref to derm, # given Drug reaction 06/17/2022 08/19/2023 Overview (06/17/2022): Consider possible drug reaction. Stop Cymbalta. Zyrtec & solumedrol given. Make appt with fish and game warden. Psychogenic nonepileptic seizure 12/16/2021 08/19/2023 Nightmares 07/01/2021 [...] Encounters Date Type Department Care Team Description 06/20/2025 Telephone [facility] [place] [address] [place] [facility] [place] [phone] Argelia Law NP Erroneous encounter-disregard 06/12/2025 2:00 PM CDT Video Visit [facility] [place] [address] [place] [phone] Argelia Law NP Bipolar 1 disorder, mixed, partial remission (CMS/HCC) (Primary Dx); BARBIE (generalized anxiety disorder); Borderline personality disorder (CMS/HCC); Attention deficit hyperactivity disorder (ADHD), predominantly inattentive type; Insomnia, unspecified type; Atypical anorexia nervosa; PTSD (post-traumatic stress disorder); Panic disorder; Unspecified mood (affective) disorder 06/12/2025 [facility] [place] [address] [place] [address] Argelia Law NP Attention deficit hyperactivity disorder (ADHD), predominantly inattentive type 06/07/2025 External Device Data STL ABSTRACTION Provider, Abstract 06/06/2025 External Device Data [facility] ABSTRACTION Provider, Abstract 06/02/2025 [facility] [place] [address] [place] [address] Argelia Law NP BARBIE (generalized anxiety disorder) 05/30/2025 External Device Data STL ABSTRACTION Provider, Abstract 05/29/2025 7:30 AM CDT Video Visit [facility] [place] [address] [place] [address] Argelia Law NP Attention deficit hyperactivity disorder (ADHD), predominantly inattentive type (Primary Dx); BARBIE (generalized anxiety disorder); Insomnia, unspecified type; Bipolar 1 disorder, mixed, partial remission (CMS/HCC); Borderline personality disorder (CMS/HCC); Atypical anorexia nervosa; PTSD (post-traumatic stress disorder); Panic disorder 05/29/2025 [facility] [place] [address] [place] [address] Argelia Law NP Attention deficit hyperactivity disorder (ADHD), predominantly inattentive type (Primary Dx) 05/24/2025 External Device Data STL ABSTRACTION Provider, Abstract 05/23/2025 Telephone [facility] [place] [address] [place] [address] [address] [facility] [address] [place], [place] [address] Argelia Law NP Medication Problem 05/18/2025 [facility] [place] [address] [place] [address] Argelia Law NP BARBIE (generalized anxiety disorder) 05/18/2025 [facility] [place] [address] [place], [place] [address] Argelia Law NP Insomnia, unspecified type (Primary Dx) 05/09/2025 7:30 AM CDT Video Visit [facility] [place] [address] [place] [address] Argelia Law NP Bipolar 1 disorder, mixed, partial remission (CMS/HCC) (Primary Dx); Borderline personality disorder (CMS/HCC); BARBIE (generalized anxiety disorder); Atypical anorexia nervosa; Insomnia, unspecified type; PTSD (post-traumatic stress disorder); Attention deficit hyperactivity disorder (ADHD), predominantly inattentive type; Panic disorder 05/03/2025 [facility] [place] [address] [place] [address] rAgelia Law NP BARBIE (generalized anxiety disorder) 05/02/2025 External Device Data STL ABSTRACTION Provider, Abstract 04/29/2025 [facility] [place] [address] [place] [address] Argelia Law NP BARBIE (generalized anxiety disorder); Bipolar 1 disorder, mixed (CMS/HCC) 04/27/2025 [facility] [address] [place] [address] Argelia Law NP BARBIE (generalized anxiety disorder) 04/26/2025 Telephone [facility] [address] [place] [address] Argelia Law NP Letter for School/Work 04/12/2025 Telephone [facility] - Michael Herrmann [facility] [place] [address] Kassy Jay MD Provider Call 04/10/2025 4:00 PM CDT Video Visit [facility] [address] [place] [address] Argelia Law NP Bipolar 1 disorder, mixed, partial remission (CMS/HCC) (Primary Dx); Unspecified mood (affective) disorder; BARBIE (generalized anxiety disorder); Borderline personality disorder (CMS/HCC); Attention deficit hyperactivity disorder (ADHD), predominantly inattentive type; Atypical anorexia nervosa; Insomnia, unspecified type; PTSD (post-traumatic stress disorder); Panic disorder 04/10/2025 [facility] [place] [address] [place] [address] Argelia Law NP Attention deficit hyperactivity disorder (ADHD), predominantly inattentive type 04/10/2025 [facility] [place] [address] [place] [phone] Kassy [facility] MD [facility] 04/10/2025 [facility] Alize [place] [address] [address] Kassy Jay MD Remote Monitoring 04/09/2025 Results Follow-Up [facility] Alize [place] [address] [phone] Rayne Rojo FNP COMPREHENSIVE METABOLIC PANEL, CBC WITH DIFFERENTIAL 04/07/2025 2:40 PM CDT [facility] [place] [phone] Severe calorie deficiency (Primary Dx) 04/07/2025 [facility] [phone] Kassy Jay MD Blood Pressure Monitoring 04/07/2025 [facility] [phone] Kassy Jay MD Provider Call; Patient Communication 04/07/2025 [facility] [address] [address] Kassy Jay MD Needs Orders Written 04/06/2025 12:52 PM CDT - 04/06/2025 11:59 PM CDT Hospital Encounter [facility] [address] [address] [place] [address] Jarett Rodney MD Discharge Disposition: Home or Self Care 04/06/2025 12:51 PM CDT - 04/06/2025 11:59 PM CDT Hospital Encounter [facility] Testing [facility] [address] [facility] [address] [place] [address] Jarett Rodney MD Discharge Disposition: Home or Self Care 04/06/2025 Results Follow-Up [facility] - [address] [place] [address] Jarett Rodney MD STRESS TEST EXERCISE TREADMILL, HOLTER MONITOR 04/06/2025 Chart Note [facility] - [address] [facility] [address] [address] [facility] [address] [place] [address] Anthony Rae ANP 04/03/2025 12:50 PM CDT Office Visit [facility] - [address] [facility] [address] [address] [facility] [address] [place] [address] Jarett Rodney MD Chest pain, unspecified type (Primary Dx); Anorexia; Syncope, unspecified syncope type 04/01/2025 4:15 PM CDT - 04/01/2025 4:50 PM CDT Emergency [facility] [address] [place] [address] Concussion with loss of consciousness of 30 minutes or less, initial encounter (Primary Dx) Discharge Disposition: Home or Self Care 04/01/2025 Travel 03/31/2025 Telephone [facility] - [place] Herrmann [address] [place] [address] Kassy Jay MD Information 03/31/2025 Telephone [facility] - [address] [place] [address] Rayne Rojo FNP urgent new pt appt; 1st call, LMOR 03/31/25 03/31/2025 Results Follow-Up [facility] - Michael [address] [address] Rayne Rojo FNP COMPREHENSIVE METABOLIC PANEL, HEMOGLOBIN A1C, TSH REFLEXIVE, Additional followed-up results: 03/31/2025 Telephone [facility] - Michael [address] [address] Kassy Jay MD Clinical Consult Before Scheduling; Patient Communication 03/29/2025 7:30 AM CDT Office Visit [facility] - Michael [address] [address] Rayne Rojo FNP Severe calorie deficiency (Primary Dx); Abnormal weight loss; Vitamin B12 deficiency (non anemic); Iron deficiency anemia, unspecified iron deficiency anemia type; BARBIE (generalized anxiety disorder); Encounter for vitamin deficiency screening; Screening for diabetes mellitus; Primary insomnia; Gastroesophageal reflux disease without esophagitis 03/23/2025 [facility] [address] [address] Kassy Jay MD Provider Call from Last 3 Months Immunizations Immunization Administration [...] Never 02/09/2020 How often do you attend presybeterian or restorationist serv ices? 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 Gender Identity Not on file [...] CDT Video Visit [facility] [address] [address] Argelia Law NP [facility] [address] [address] 08/08/2025 7:30 AM PUMPING PLANT OPERATOR Video Visit [facility] [address] [address] Argelia Law NP [address] [address] 09/25/2025 8:00 AM PUMPING PLANT OPERATOR Office Visit [facility] [place] [phone] Kassy Jay MD [address] [address] [phone] Health Maintenance Due Date Last Done Comments HPV/Cotest (21-) 2019 HPV VACCINES (1 - 3-dose SCD M series) 2025 COVID-19 Vaccine (6 - 2024-2 6 season) 2025 06/21/2023, 08/03/2022, 07/15/2021, Additional [...] history exists Medical Devices Implanted Type Area Tape Maker Device Identifier Shelf Expiration Date Model / Serial / Lot Clip Med/Lg 3200 - Csc - [id number] Implanted:Qty: 2 on 01/03/2025 by Tarik Cervantes DO at [facility] N/A: Abdomen TELEFLEX- WECK CLOSURE SYS 06/09/2029 [id number] / / [id number] Iud Procedures Procedure Name Priority Date/Time Associated [...] BARBIE (generalized anxiety disorder) Severe calorie deficiency [place] ECG ROUTINE ECG W/LEAST 12 LDS W/I&R Routine 03/29/2025 7:30 AM CDT Severe calorie deficiency Abnormal weight loss BARBIE (generalized anxiety disorder) from Last 3 Months Results * HOLTER MONITOR (04/09/2025 9:20 PM CDT) 04/09/2025 9:20 PM CDT Narrative INTERFACE SYSTEM - 04/10/2025 4:32 PM CDT [address] [address] Test Date: 2025-04-09 Pat Name: ISAURA FRANCIS Department: Room: Gender: Female City Carrier Assistant: : 2000 Requested By: JARETT Gibson Order Number: [id number] Reading MD: Hayes Otero Interpretive Statements Patient monitored for 2d, analyzable time was 2d starting on 04/06/2025 12:51 pm. Primary rhythm was Sinus Rhythm. Average heart rate was 79 bpm, Minimum heart rate was 53 bpm on Day 3 / 05:52:14 am, Max heart rate was 147 bpm on Day 1 / 12:55:52 pm SVE(s): [place] was less than 0.01 %, 3 total SVE(s) PVC(s): [place] was less than 0.01 %, 5 total [...] Procedure Note Hayes Otero MD - 04/10/[address] [address] Test Date: 2025-04-09 Pat Name: ISAURA FRANCIS Department: Room: Gender: Female City Carrier Assistant: : 2000 Requested By: JARETT Gibson Order Number: [id number] Reading MD: Hayes Otero Interpretive Statements Patient monitored for 2d, analyzable time was 2d starting on 512:51 pm. Primary rhythm was Sinus Rhythm. Average heart rate was 79 bpm, Minimumheart rate was 53 bpm on Day 3 :52:14 am, Max heart rate was 147 bpm on Day:55:52 pm SVE(s): [place] was less than 0.01 %, 3 total SVE(s) PVC(s): [place] was less than 0.01 %, 5 total [...] Richard MCHC 32.1 32.0 - 36.0 g/dL [facility] Comment: For adults, a slight decrease in the calculated MCHC value (in the range of 30 to 32 g/dL) is most likely not clinically significant; however, it should be interpreted with caution in correlation with other red cell parameters and the patient's clinical condition. RDW 13.0 11.0 - 15.0 % [facility] PLATELETS 261 140 - 400 Thousand/ uL [facility] MPV 9.9 7.5 - 12.5 fL [facility] Richard NEUTROPHIL ABSOLUTE 4,889 1,500 - 7,800 cells/uL [facility] Ramos LYMPHOCYTE ABSOLUTE 1,937 850 - 3,900 cells/uL [facility] el[facility] Ramos MONOCYTE ABSOLUTE 302 200 - 950 cells/uL [facility] Ramos EOSINOPHIL ABSOLUTE 43 15 - 500 cells/uL [facility] Ramos BASOPHILS ABSOLUTE 29 0 - 200 cells/uL [facility] NEUTROPHIL 67.9 % [facility] LYMPHOCYTES 26.9 % [facility] MONOCYTE 4.2 % [facility] Richard EOSINOPHILS 0.6 % [facility] BASOPHILS 0.4 % [facility] Comment: Test Performed at: [place] [address] [place] [address] Lc Andrews Blood 04/07/2025 2:47 PM CDT 04/07/2025 2:48 PM CDT Rayne Rojo [facility] HEMATOLOGY ORDERABLES Final Result [facility] [phone] [place] [address] [place] [address] * (ABNORMAL) COMPREHENSIVE METABOLIC PANEL (04/07/2025 2:47 PM CDT) Only the most recent of3 resultswithin the time period is included. GLUCOSE 144(H) 65 - 99 mg/dL [facility] Comment: Fasting reference interval For someone without known diabetes, a glucose value >125 mg/dL indicates that they may have diabetes and this should be confirmed with a follow-up test. BUN 12 7 - 25 mg/dL [facility] el[facility] CREATININE 0.63 0.50 - 0.96 mg/dL [facility] GFR 125 > OR = 60 mL/min/1. 73m2 [facility] BUN/CREAT RATIO SEE NOTE: 6 - 22 (calc) [facility] Comment: Not Reported: BUN and Creatinine are within reference range. SODIUM 140 135 - 146 mmol/L [facility] POTASSIUM 3.9 3.5 - 5.3 mmol/L [facility] elvi Ramos CHLORIDE 103 98 - 110 mmol/L [facility] elvi Ramos CO2 28 20 - 32 mmol/L [facility] elvi Ramos CALCIUM 9.8 8.6 - 10.2 mg/dL [facility] el[facility] TOTAL PROTEIN 7.2 6.1 - 8.1 g/dL [facility] elvi Ramos ALBUMIN 4.6 3.6 - 5.1 g/dL [facility] Richard GLOBULIN 2.6 1.9 - 3.7 g/dL (calc) [facility] ALBUMIN/GLOBULIN RATIO 1.8 1.0 - 2.5 (calc) [facility] BILIRUBIN TOTAL 0.3 0.2 - 1.2 mg/dL [facility]Osorio Ramos ALKALINE PHOSPHATASE 50 31 - 125 U/L [facility] el[facility] AST 13 10 - 30 U/L [facility] el[facility] ALT 12 6 - 29 U/L [facility] el[facility] Ramos Comment: Test Performed at: [place] [address] [address] [place] [address] Lc Andrews Blood 04/07/2025 2:47 PM CDT 04/07/2025 2:48 PM CDT Rayne GONZALEZ CHEMISTRY ORDERABLES Final Result [facility] [phone] [facility] [address] [address] [place] [address] * STRESS TEST EXERCISE TREADMILL (04/06/2025 1:34 PM CDT) EJECTION FRACTION EF: INTERFACE SYSTEM 04/06/2025 2:00 PM CDT Narrative INTERFACE SYSTEM - 04/06/2025 2:48 PM CDT [facility] Stress Electrography Redd Protocol Patient: Isaura Francis Study ID: Gender: Karan : 2000 Age: 25 Race: KIT Height 154.9cm Study Date: 04/06/2025 Weight: 71.7kg Access. #: [id number] BP: 116 / 88 *Referring Physician:Jarett Johns *Ordering Physician:Jarett Johns core laying machine operator: Nurse: HT Indications: Chest pain. Syncope. [...] peak heart rate and blood pressure was [address]no Hg/min. The patient experienced no chest pain [...] laboratory. Prepared and Electronically Authenticated Jarett Rodney [id number]:48:45 Procedure Note Jarett Rodney MD - 04/06/2025 [facility] Stress Electrography Redd Protocol Patient: Isaura Francis Study ID: Gender: Karan : 2000 Age: 25 Race: KIT Height 154.9cm Study Date: 04/06/2025 Weight: 71.7kg Access. #: [id number] BP: 116 / 88 *Referring Physician:* Jarett Rodney *Ordering Physician:* Jarett Rodney core laying machine operator: Nurse: HT Indications: Chest pain. Syncope. [...] the peakheart rate and blood pressure was 05254wi Hg/min. The patient experienced nochest pain during [...] date: 04/06/2025. Study time: 02:00 PM. Location: [place] laboratory. Prepared and ElectronicallyAuthenticated Jarett Rodney [id number]:[id number]:45 us Jarett Rodney MD NM ORDERABLES Final Resul t INTERFACE SYSTEM Refer to clinic/hospital department * TROPONIN BASELINE, 5TH GEN (04/01/2025 2:57 PM CDT) TROPONIN T, BASELINE 5TH GEN <6 <=10 ng/L 04/01/2025 3:53 PM CDT [facility] Blood Venipuncture / Unknown 04/01/2025 2:57 PM CDT 04/01/2025 3:18 PM CDT Narrative [facility] LABORATORY [facility] - 04/01/2025 3:53 PM CDT Troponin Undetectable us Protocol [facility] MD CHEMISTRY ORDERABLES Final Result Performing Organization Address City/[facility]/ZIP Co de Phone Number [facility] [employer] [facility] CLIA# [id number] [address] [place] [address] * HCG QUALITATIVE, BLOOD (04/01/2025 2:57 PM CDT) Pathologist [facility] HCG QUAL, BLOOD Negative Negative 04/01/2025 3:34 PM CDT [facility] Blood Venipuncture / Unknown 04/01/2025 2:57 PM CDT 04/01/2025 3:13 PM CDT us Protocol [facility] Emergency MD CHEMISTRY ORDERABLES Final Result [facility] CLIA# [id number] [address] [place] [address] * EKG 12-LEAD (04/01/2025 2:53 PM CDT) Only the most recent of2 resultswithin the time period is included. 04/01/2025 2:53 PM CDT Narrative INTERFACE SYSTEM - 04/02/2025 11:56 [place] [address] Test Date: 2025-04-01 Pat Name: ISAURA FRANCIS Department: 92 Room: Gender: Female City Carrier Assistant: : 2000 Requested By: Order Number: [id number] Reading MD: Loy Malone Measurements Intervals [place] Rate: 77 P: 20 NH: 150 QRS: 11 QRSD: 80 T: 35 QT: 386 QTc: 436 Interpretive Statements Normal sinus rhythm with sinus arrhythmia Normal ECG Compared to ECG 03/03/2025 17:52:21 T-wave abnormality no longer present Electronically Signed On 04-02-2025 11:56:32 CDT by Loy Malone Procedure Note Loy Malone MD - 04/02/2025 [place] [address] Test Date: 2025-04-01 Pat Name: ISAURA FRANCIS Department: 92 Room: Gender: Female City Carrier Assistant: : 2000 Requested By: Order Number: [id number] Reading : Loy Malone Measurements Intervals [place] Rate: 77 P: 20 NH: 150 QRS: 11 QRSD: 80 T: 35 QT: 386 QTc: 436 Interpretive Statements Normal sinus rhythm with sinus arrhythmia Normal ECG Compared to ECG 03/03/2025 17:52:21 T-wave abnormality no longer present Electronically Signed On 04-02-2025 11:56:32 CDT by Loy Malone us Protocol [facility] MD ECG ORDERABLES Final Result INTERFACE SYSTEM Refer to clinic/hospital department * URINALYSIS WITH REFLEX CULTURE (03/29/2025 8:12 AM CDT) COLOR UA YELLOW YELLOW [facility] CLARITY UA CLEAR CLEAR [facility] SPECIFIC GRAVITY UA 1.019 1.001 - 1.035 [facility] PH UA 6.5 5.0 - 8.0 [facility] GLUCOSE UA NEGATIVE NEGATIVE [facility] BILIRUBIN UA NEGATIVE NEGATIVE [facility] KETONES UA NEGATIVE NEGATIVE [facility] BLOOD UA NEGATIVE NEGATIVE [facility] PROTEIN UA NEGATIVE NEGATIVE [facility] NITRITE UA NEGATIVE NEGATIVE [facility] LEUKOCYTE ESTERASE UA NEGATIVE NEGATIVE [facility] WBC UA NONE SEEN < OR = 5 /HPF [facility] RBC UA NONE SEEN < OR = 2 /HPF [facility] EPITHELIAL CELLS, URINE 0-5 < OR = 5 /HPF [facility] BACTERIA UA NONE SEEN NONE SEEN /HPF [facility] HYALINE CAST NONE SEEN NONE SEEN /LPF [facility] URINE NOTE [facility] Comment: This urine was analyzed for the presence of WBC, RBC, bacteria, casts, and other formed elements. Only those elements seen were reported. URINE CULTURE [facility] Comment: NO CULTURE INDICATED Test Performed at: [place] [address] [address] [place] [address] Lc Andrews Urine URINE SPECIMEN OBTAINED BY CLEAN CATCH PROCEDURE / Unknown 03/29/2025 8:12 AM CDT 03/29/2025 8:12 AM CDT Rayne Rojo DIGITAL MARKETING MANAGER URINE ORDERABLES Jessica l Result [facility] [phone] [place] [address] [address] [place] [address] * TSH REFLEXIVE (03/29/2025 8:10 AM CDT) TSH 2.22 mIU/L [facility] Comment: Reference Range > or = 20 Years 0.40-4.50 Ranges First trimester 0.26-2.66 Second trimester 0.55-2.73 Third trimester 0.43-2.91 FASTING:NO FASTING: NO Test Performed at: [facility] [place] [address] [address] [place] [address] Lc Andrews Blood 03/29/2025 8:10 AM CDT 03/29/2025 8:11 AM CDT Rayne Rojo [facility] CHEMISTRY ORDERABLES Final Result [facility] [phone] [facility] [address] [place] [address] * (ABNORMAL) VITAMIN B12 AND FOLATE (03/29/2025 8:10 AM CDT) Pathologist [facility] VITAMIN B12 466 200 - 1100 pg/mL [facility] FOLATE, SERUM 4.5(L) ng/mL [facility] Comment: Reference Range Low: <3.4 Borderline: 3.4-5.4 Normal: >5.4 Test Performed at: [employer] [address] [place] [address] Lc Andrews MD Blood 03/29/2025 8:10 AM CDT 03/29/2025 8:11 AM CDT Rayne Rojo [facility] CHEMISTRY ORDERABLES Final Result Performing Organization Address City/State/ZIP [place] Phone Number [facility] [phone] [facility] ([facility])[address] [address] * IRON, TIBC, AND PERCENT SATURATION (03/29/2025 8:10 AM CDT) Pathologist [facility] IRON 50 40 - 190 mcg/dL [facility] TIBC 287 250 - 450 mcg/dL (calc) [facility] IRON % SATURATION 17 16 - 45 % (calc) [facility] Comment: FASTING:NO FASTING: NO Test Performed at: [employer] [address] [address] [place] [address] Lc Andrews MD Blood 03/29/2025 8:10 AM CDT 03/29/2025 8:11 AM CDT Rayne Rojo [facility] CHEMISTRY ORDERABLES Final Result Performing Organization Address City/[facility]/ZIP Co de Phone Number [facility] [phone] [facility] ([facility])[place] [address] [place] [address] * VITAMIN D 25 HYDROXY (03/29/2025 8:10 AM CDT) VITAMIN D, 25 OH, TOTAL 55 30 - 100 ng/mL [facility] Comment: Vitamin D Status 25-OH Vitamin D: Deficiency: <20 ng/mL Insufficiency: 20 - 29 ng/mL Optimal: > or = 30 ng/mL For 25-OH Vitamin D testing on patients on D2-supplementation and patients for whom quantitation of D2 and D3 fractions is required, the [facility](TM) 25-OH VIT D, (D2,D3), LC/MS/MS is recommended: order code 53740 (patients >2yrs). See Note 1 Note 1 For additional information, please refer to http://education.BIlprospekt/faq/KWM983 (This link is being provided for informational/ educational purposes only.) FASTING:NO FASTING: NO Test Performed at: [place] [address] [address] [place] [address] Lc Andrews MD Blood 03/29/2025 8:10 AM CDT 03/29/2025 8:11 AM CDT Rayne Rojo [facility] CHEMISTRY ORDERABLES Final Result Performing Organization Address City/[facility]/ZIP Co de Phone Number [facility] [phone] [facility] ([facility])[place] [address] [place] [address] * MAGNESIUM LEVEL (03/29/2025 8:10 AM CDT) MAGNESIUM 1.9 1.5 - 2.5 mg/dL [facility] Comment: Test Performed at: [facility] [address] [address] [place] [address] Lc Andrews Blood 03/29/2025 8:10 AM CDT 03/29/2025 8:11 AM CDT Rayne Rojo [facility] CHEMISTRY ORDERABLES Final Result Performing Organization Address City/[facility]/ZIP Code Phone Number [facility] [phone] [place] [address] [address] [place] [address] * HEMOGLOBIN A1C (03/29/2025 8:10 AM CDT) Pathologist [facility] HEMOGLOBIN A1C 5.2 <5.7 % of total Hgb [facility] ([facility])Osorio Ramos Comment: For the purpose of screening for the presence of diabetes: <5.7% Consistent with the absence of diabetes 5.7-6.4% Consistent with increased risk for diabetes (prediabetes) > or =6.5% Consistent with diabetes This assay result is consistent with a decreased risk of diabetes. Currently, no consensus exists regarding use of hemoglobin A1c for diagnosis of diabetes in children. According to [place] Diabetes Association (ADA) guidelines, hemoglobin A1c <7.0% represents optimal control in non- diabetic patients. Different metrics may apply to specific patient populations. Standards of Medical Care in Diabetes(ADA). ESTIMATED AVERAGE GLUCOSE (MG/DL) 103 mg/dL [facility] ([facility])Osorio Ramos ESTIMATED AVERAGE GLUCOSE (MMOL/L) 5.7 mmol/L [facility] ([facility])Osorio Ramos Comment: FASTING:NO FASTING: NO Test Performed at: [place] [address] [address] [place] [address] [facility] Blood 03/29/2025 8:10 AM CDT 03/29/2025 8:11 AM CDT Rayne Rojo [facility] CHEMISTRY ORDERABLES Final Result Performing Organization Address City/[facility]/ZIP Code Phone Number [facility] [phone] [place] [address] [address] [place] [address] * FERRITIN (03/29/2025 8:10 AM CDT) Pathologist [facility] FERRITIN 32 16 - 154 ng/mL [facility] Comment: Test Performed at: [facility] [address] [address] [place] [address] SusiJeanette Andrews MD Blood 03/29/2025 8:10 AM CDT 03/29/2025 8:11 AM CDT Rayne Rojo DIGITAL MARKETING MANAGER CHEMISTRY ORDERABLES Final Result Performing Organization Address City/State/ZIP [facility] Phone Number [facility] [phone] [facility] ([facility] [address] [place] [address] * CK (03/29/2025 8:10 AM CDT) CK 30 20 - 239 U/L [facility] Comment: Test Performed at: [facility] ([facility])[place] [address] [address] [place] [address] [facility] Andrews Blood 03/29/2025 8:10 AM CDT 03/29/2025 8:11 AM CDT Rayne [facility] CHEMISTRY ORDERABLES Final Result [facility] [phone] [place] [address] [address] [place] [address] * AMYLASE (03/29/2025 8:10 AM CDT) AMYLASE 28 21 - 101 U/L [facility] ([facility] Comment: FASTING:NO FASTING: NO Test Performed at: [place] [address] [address] [place] [address] [facility] Blood 03/29/2025 8:10 AM CDT 03/29/2025 8:11 AM CDT Rayne Rojo DIGITAL MARKETING MANAGER CHEMISTRY ORDERABLES Final Result [facility] [phone] [place] [address] [address] [place] [address] from Last 3 Months Insurance [facility] [place] AETNA OPEN CHOICE PPO [facility] [id number] AETNA CHOICE POS II RX INFOCROSSING Medicaid RX [facility] [employer] RX [place] PLANS (INTERNAL) [facility] Plans [facility] [place] AETNA OPEN CHOICE PPO Advance Directives For more information, please contact: [phone] * Full Code (Latest Code Status on [...] 8:57 PM 10/10/2021 1:06 PM Care Teams Account Retention Representative Relationship Specialty Start Date End Date Kassy Jay MD [address] [place] [phone] PCP - General Family Practice 12/04/22
--- OUTSIDE RECORDS SUMMARY | 2025-06-22 09:31 | XMS_ITS | Encounter Summary ---
Author Organization [facility] Address [address] [place] [address] Care Team Providers Care Remote Recruiter Name Role Phone Kassy Jay MD Primary Care Provider [phone] Encounter Details Date Type Department Care Team (Late Contact Info) Description 12/06/2007 Outpatient Historical [facility] Pediatrics - [facility] [address] [facility] [address] [place] [address] [place] [address] [place] [address] Social History Tobacco Use Types Packs/Day Years Used Date Smoking Tobacco: Never Assessed Comments Unknown Sex and Gender Information Value Date Recorded Sex Assigned at Not on file Legal Sex Female 4:02 AM COMMANDING OFFICER MOTORIZED SQUAD Gender Identity Not on file Sexual Orientation Not on file documented as of this encounter Plan of Treatment Upcoming Encounters Date Type Department Care Team (Late Contact Info) Description 06/26/2025 9:00 AM CDT Video Visit [facility] Adult Psychiatry [place] [address] [address] Argelia Law NP [address] [address] 08/08/2025 7:30 AM COMMANDING OFFICER MOTORIZED SQUAD Video Visit [facility] Adult Psychiatry [place] [address] [place] [address] [place] [address] Argelia Law NP 1420 [facility] [address] [place] [address] 09/25/2025 8:00 AM COMMANDING OFFICER MOTORIZED SQUAD Office Visit [facility] Primary Care - [place] Herr[place] [address] [place] [address] Kassy Jay MD [address] [place] [address] documented as of this encounter Visit Diagnoses Not on filedocumented in this encounter Additional Health Concerns Infection Onset Date Last Indicated Resolved Time R/O COVID-19 06/02/2021 06/03/2021 06/03/2021 7:34 PM CDT R/O COVID-19 12/22/2022 12/22/2022 12/22/2022 12:2 5 PM CDT R/O COVID-19 09/07/2023 09/07/2023 09/07/2023 9:52 PM COMMANDING OFFICER MOTORIZED SQUAD documented as of this encounter Care Teams Remote Recruiter Relationship Specialty Start Date End Date Kassy Jay MD [address] [place] [address] PCP - General Family Practice 12/04/22 documented as of this encounter
--- OUTSIDE RECORDS SUMMARY | 2025-06-22 09:31 | XMS_ITS | Encounter Summary ---
Author Organization [facility] Address [address] [place] [address] Care Team Providers Care Hand Tube Winder Name Role Phone Kassy Jay MD Primary Care Provider [phone] Encounter Details Date Type Department Care Team (Late Contact Info) Description 07/27/2000 Outpatient Historical [facility] Pediatrics - [facility] [address] [place] [address] [place] [address] [place] [address] Social History Tobacco Use Types Packs/Day Years Used Date Smoking Tobacco: Never Assessed Comments Unknown Sex and Gender Information Value Date Recorded Sex Assigned at Not on file Legal Sex Female 4:02 AM DRYING UNIT FELTING MACHINE OPERATOR Gender Identity Not on file Sexual Orientation Not on file documented as of this encounter Plan of Treatment Upcoming Encounters Date Type Department Care Team (Late Contact Info) Description 06/26/2025 9:00 AM CDT Video Visit [facility] Adult Psychiatry [place] [address] [address] Argelia Law NP [address] [address] 08/08/2025 7:30 AM DRYING UNIT FELTING MACHINE OPERATOR Video Visit [facility] Adult Psychiatry [place] [address] [place] [address] [place] [address] Argelia Law NP 1420 [facility] [address] [place] [address] 09/25/2025 8:00 AM DRYING UNIT FELTING MACHINE OPERATOR Office Visit [facility] Primary Care - [place] [address] [place] [address] Kassy Jay MD [address] [place] [address] documented as of this encounter Visit Diagnoses Not on filedocumented in this encounter Additional Health Concerns Infection Onset Date Last Indicated Resolved Time R/O COVID-19 06/02/2021 06/03/2021 06/03/2021 7:34 PM CDT R/O COVID-19 12/22/2022 12/22/2022 12/22/2022 12:2 5 PM CDT R/O COVID-19 09/07/2023 09/07/2023 09/07/2023 9:52 PM DRYING UNIT FELTING MACHINE OPERATOR documented as of this encounter Care Teams Hand Tube Winder Relationship Specialty Start Date End Date Kassy Jay MD [address] [place] [phone] PCP - General Family Practice 12/04/22 documented as of this encounter
--- OUTSIDE RECORDS SUMMARY | 2025-06-22 09:31 | XMS_ITS | Encounter Summary ---
Author Organization [facility] Address [address] [place] [address] Care Team Providers Care Medical Specialist Name Role Phone Kassy Jay MD Primary Care Provider [phone] Encounter Details Date Type Department Care Team (Late Contact Info) Description 1998 Outpatient Historical [facility] Pediatrics - [facility] [address] [address] [facility] [address] [place] [address] Darren Tabor MD NO ADDRESS ON FILE Social History Tobacco Use Types Packs/Day Years Used Date Smoking Tobacco: Never Assessed Comments Unknown Sex and Gender Information Value Date Recorded Sex Assigned at Not on file Legal Sex Female 4:02 AM HAND MEXICAN FOOD MAKER Gender Identity Not on file Sexual Orientation Not on file documented as of this encounter Plan of Treatment Upcoming Encounters Date Type Department Care Team (Late Contact Info) Description 06/26/2025 9:00 AM CDT Video Visit [facility] Adult Psychiatry [address] [address] Argelia Law NP [address] [place] [address] 08/08/2025 7:30 AM HAND MEXICAN FOOD MAKER Video Visit [facility] Adult Psychiatry [address] [address] Argelia Law NP [address] [place] [address] [place] [address] 09/25/2025 8:00 AM HAND MEXICAN FOOD MAKER Office Visit [facility] Primary Care - Kirby Herrmann [address] [place] [address] Kassy Jay MD [address] [place] [place] [phone] documented as of this encounter Visit Diagnoses Not on filedocumented in this encounter Additional Health Concerns Infection Onset Date Last Indicated Resolved Time R/O COVID-19 06/02/2021 06/03/2021 06/03/2021 7:34 PM CDT R/O COVID-19 12/22/2022 12/22/2022 12/22/2022 12:2 5 PM CDT R/O COVID-19 09/07/2023 09/07/2023 09/07/2023 9:52 PM HAND MEXICAN FOOD MAKER documented as of this encounter Care Teams Medical Specialist Relationship Specialty Start Date End Date Kassy Jay MD [address] [place] [phone] PCP - General Family Practice 12/04/22 documented as of this encounter
--- OUTSIDE RECORDS SUMMARY | 2025-06-22 09:31 | XMS_ITS | Encounter Summary ---
Author Organization [facility] Address [address] [place] [address] Care Team Providers Care Flight Engineer Helicopter Name Role Phone Kassy Jay MD Primary Care Provider Encounter Details Date Type Department Care Team (Late Contact Info) Description 12/06/2007 Outpatient Historical [facility] Pediatrics - [facility] [address] [place] [address] [place] [address] [place] [address] Social History Tobacco Use Types Packs/Day Years Used Date Smoking Tobacco: Never Assessed Comments Unknown Sex and Gender Information Value Date Recorded Sex Assigned at Not on file Legal Sex Female 4:02 AM SOLAR DEVELOPMENT ENGINEER Gender Identity Not on file Sexual Orientation Not on file documented as of this encounter Plan of Treatment Upcoming Encounters Date Type Department Care Team (Late Contact Info) Description 06/26/2025 9:00 AM CDT Video Visit [facility] Adult Psychiatry [place] [address] [address] Argelia Law NP [address] [address] 08/08/2025 7:30 AM SOLAR DEVELOPMENT ENGINEER Video Visit [facility] Adult Psychiatry [place] [address] [place] [address] [place] [address] Argelia Law NP 1420 [facility] [address] [place] [address] 09/25/2025 8:00 AM SOLAR DEVELOPMENT ENGINEER Office Visit [facility] Primary Care - Kirby Herrmann [address] [place] [address] Kassy Jay MD [address] [place] [phone] documented as of this encounter Visit Diagnoses Not on filedocumented in this encounter Additional Health Concerns Infection Onset Date Last Indicated Resolved Time R/O COVID-19 06/02/2021 06/03/2021 06/03/2021 7:34 PM CDT R/O COVID-19 12/22/2022 12/22/2022 12/22/2022 12:2 5 PM CDT R/O COVID-19 09/07/2023 09/07/2023 09/07/2023 9:52 PM SOLAR DEVELOPMENT ENGINEER documented as of this encounter Care Teams Flight Engineer Helicopter Relationship Specialty Start Date End Date Kassy Jay MD [address] [place] [address] [address] PCP - General Family Practice 12/04/22 documented as of this encounter
--- OUTSIDE RECORDS SUMMARY | 2025-06-22 09:31 | XMS_ITS | Encounter Summary ---
Author Organization [facility] Address [address] [place] [address] Care Team Providers Care Supervisor Cigar Making Hand Name Role Phone Kassy Jay MD Primary Care Provider [phone] Encounter Details Date Type Department Care Team (Late Contact Info) Description 06/15/2000 Outpatient Historical [facility] Pediatrics - [facility] [address] [facility] [place] [address] [place] [address] [place] [address] Social History Tobacco Use Types Packs/Day Years Used Date Smoking Tobacco: Never Assessed Comments Unknown Sex and Gender Information Value Date Recorded Sex Assigned at Not on file Legal Sex Female 4:02 AM WEB ANALYST Gender Identity Not on file Sexual Orientation Not on file documented as of this encounter Plan of Treatment Upcoming Encounters Date Type Department Care Team (Late Contact Info) Description 06/26/2025 9:00 AM CDT Video Visit [facility] Adult Psychiatry [place] [address] [address] Argelia Law NP [address] [address] 08/08/2025 7:30 AM WEB ANALYST Video Visit [facility] Adult Psychiatry [place] [address] [place] [address] [place] [address] Argelia Law NP 1420 [facility] [address] [place] [address] 09/25/2025 8:00 AM WEB ANALYST Office Visit [facility] Primary Care - Kirby Herrmann [address] [place] [address] Kassy Jay MD [address] [place] [phone] documented as of this encounter Visit Diagnoses Not on filedocumented in this encounter Additional Health Concerns Infection Onset Date Last Indicated Resolved Time R/O COVID-19 06/02/2021 06/03/2021 06/03/2021 7:34 PM CDT R/O COVID-19 12/22/2022 12/22/2022 12/22/2022 12:2 5 PM CDT R/O COVID-19 09/07/2023 09/07/2023 09/07/2023 9:52 PM WEB ANALYST documented as of this encounter Care Teams Supervisor Cigar Making Hand Relationship Specialty Start Date End Date Kassy Jay MD [address] [place] [address] [address] [phone] PCP - General Family Practice 12/04/22 documented as of this encounter
--- OUTSIDE RECORDS SUMMARY | 2025-06-22 09:31 | XMS_ITS | Encounter Summary ---
Author Organization [facility] Address [address] [place] [address] Care Team Providers Care Director Of Exhibits Name Role Phone Kassy Jay MD Primary Care Provider [phone] Encounter Details Date Type Department Care Team (Late Contact Info) Description 03/02/2000 Outpatient Historical [facility] Pediatrics - [facility] [address] [place] [address] [place] [address] [place] [address] Social History Tobacco Use Types Packs/Day Years Used Date Smoking Tobacco: Never Assessed Comments Unknown Sex and Gender Information Value Date Recorded Sex Assigned at Not on file Legal Sex Female 4:02 AM AUTO GARAGE MECHANIC Gender Identity Not on file Sexual Orientation Not on file documented as of this encounter Plan of Treatment Upcoming Encounters Date Type Department Care Team (Late Contact Info) Description 06/26/2025 9:00 AM CDT Video Visit [facility] Adult Psychiatry [place] [address] [phone] Argelia Law NP [address] [address] 08/08/2025 7:30 AM AUTO GARAGE MECHANIC Video Visit [facility] Adult Psychiatry [place] [address] [place] [address] [place] [address] Argelia Law NP 1420 [facility] [address] [place] [address] 09/25/2025 8:00 AM AUTO GARAGE MECHANIC Office Visit [facility] Primary Care - Kirby Herrmann [address] [place] [address] [address] Kassy Jay MD [address] [place] [address] documented as of this encounter Visit Diagnoses Not on filedocumented in this encounter Additional Health Concerns Infection Onset Date Last Indicated Resolved Time R/O COVID-19 06/02/2021 06/03/2021 06/03/2021 7:34 PM CDT R/O COVID-19 12/22/2022 12/22/2022 12/22/2022 12:2 5 PM CDT R/O COVID-19 09/07/2023 09/07/2023 09/07/2023 9:52 PM AUTO GARAGE MECHANIC documented as of this encounter Care Teams Director Of Exhibits Relationship Specialty Start Date End Date Kassy Jay MD [address] [place] [address] [phone] PCP - General Family Practice 12/04/22 documented as of this encounter
--- OUTSIDE RECORDS SUMMARY | 2025-06-22 09:31 | XMS_ITS | Encounter Summary ---
Author Organization [facility] Address [address] [place] [address] Care Team Providers Care Fast Food Assistant Restaurant Manager Name Role Phone Kassy Jay MD Primary Care Provider [phone] Encounter Details Date Type Department Care Team ([facility] Contact Info) Description 1998 Outpatient Historical [facility] MAURICIO Tabor, Darren Ruiz MD NO ADDRESS ON FILE Social History Tobacco Use Types Packs/Day Years Used Date Smoking Tobacco: Never Assessed Comments Unknown Sex and Gender Information Value Date Recorded Sex Assigned at Not on file Legal Sex Female 4:02 AM WEB GRAPHIC DESIGNER Gender Identity Not on file Sexual Orientation Not on file documented as of this encounter Plan of Treatment Upcoming Encounters Date Type Department Care Team ([facility] Contact Info) Description 06/26/2025 9:00 AM CDT Video Visit [facility] Adult Psychiatry [address] [place] [address] Argelia Law NP [address] [place], [place] [address] [address] 08/08/2025 7:30 AM WEB GRAPHIC DESIGNER Video Visit [facility] Adult Psychiatry [address] [place] [address] Argelia Law NP [address] [place] [address] [place] [address] 09/25/2025 8:00 AM WEB GRAPHIC DESIGNER Office Visit [facility] Primary Care - Kirby Herrmann [address] [place] [address] [address] Kassy Jay MD [address] [place] [place] [phone] documented as of this encounter Visit Diagnoses Not on filedocumented in this encounter Additional Health Concerns Infection Onset Date Last Indicated Resolved Time R/O COVID-19 06/02/2021 06/03/2021 06/03/2021 7:34 PM CDT R/O COVID-19 12/22/2022 12/22/2022 12/22/2022 12:2 5 PM CDT R/O COVID-19 09/07/2023 09/07/2023 09/07/2023 9:52 PM WEB GRAPHIC DESIGNER documented as of this encounter Care Teams Fast Food Assistant Restaurant Manager Relationship Specialty Start Date End Date Kassy Jay MD [address] [place] [phone] PCP - General Family Practice 12/04/22 documented as of this encounter
--- OUTSIDE RECORDS SUMMARY | 2025-06-22 09:31 | XMS_ITS | Encounter Summary ---
Author Organization [facility] Address [address] [place] [address] Care Team Providers Care Envelope Press Operator Name Role Phone Kassy Jay MD Primary Care Provider [phone] Encounter Details Date Type Department Care Team (Late Contact Info) Description 1998 Outpatient Historical [facility] Pediatrics - [facility] [address] [address] [facility] [address] [place] [address] Darren Tabor MD NO ADDRESS ON FILE Social History Tobacco Use Types Packs/Day Years Used Date Smoking Tobacco: Never Assessed Comments Unknown Sex and Gender Information Value Date Recorded Sex Assigned at Not on file Legal Sex Female 4:02 AM METAL FILER Gender Identity Not on file Sexual Orientation Not on file documented as of this encounter Plan of Treatment Upcoming Encounters Date Type Department Care Team (Late Contact Info) Description 06/26/2025 9:00 AM CDT Video Visit [facility] Adult Psychiatry [address] [address] Argelia Law NP [address] [place] [address] 08/08/2025 7:30 AM METAL FILER Video Visit [facility] Adult Psychiatry [address] [address] Argelia Law NP [address] [address] [place] [address] 09/25/2025 8:00 AM METAL FILER Office Visit [facility] Primary Care - Kirby Herrmann [address] [place] [address] Kassy Jay MD [address] [place] [phone] documented as of this encounter Visit Diagnoses Not on filedocumented in this encounter Additional Health Concerns Infection Onset Date Last Indicated Resolved Time R/O COVID-19 06/02/2021 06/03/2021 06/03/2021 7:34 PM CDT R/O COVID-19 12/22/2022 12/22/2022 12/22/2022 12:2 5 PM CDT R/O COVID-19 09/07/2023 09/07/2023 09/07/2023 9:52 PM METAL FILER documented as of this encounter Care Teams Envelope Press Operator Relationship Specialty Start Date End Date Kassy Jay MD [address] [place] [place] [phone] PCP - General Family Practice 12/04/22 documented as of this encounter
--- OUTSIDE RECORDS SUMMARY | 2025-06-22 09:31 | XMS_ITS | Encounter Summary ---
Author Organization [facility] Address [address] [place] [address] Care Team Providers Care Baseball Scout Name Role Phone Kassy Jay MD Primary Care Provider [phone] Encounter Details Date Type Department Care Team (Late Contact Info) Description 01/01/2000 Outpatient Historical [facility] Pediatrics - [facility] [address] [facility] [address] [place] [address] [place] [address] [place] [address] Social History Tobacco Use Types Packs/Day Years Used Date Smoking Tobacco: Never Assessed Comments Unknown Sex and Gender Information Value Date Recorded Sex Assigned at Not on file Legal Sex Female 4:02 AM ROLL CHANGER Gender Identity Not on file Sexual Orientation Not on file documented as of this encounter Plan of Treatment Upcoming Encounters Date Type Department Care Team (Late Contact Info) Description 06/26/2025 9:00 AM CDT Video Visit [facility] Adult Psychiatry [place] [address] [address] Argelia Law NP [address] [address] 08/08/2025 7:30 AM ROLL CHANGER Video Visit [facility] Adult Psychiatry [place] [address] [address] [place] [address] Argelia Law NP [address] [facility] [address] [place] [address] 09/25/2025 8:00 AM ROLL CHANGER Office Visit [facility] Primary Care - Kirby Herrmann [address] [place] [phone] Kassy Jay MD [address] [place] [phone] documented as of this encounter Visit Diagnoses Not on filedocumented in this encounter Additional Health Concerns Infection Onset Date Last Indicated Resolved Time R/O COVID-19 06/02/2021 06/03/2021 06/03/2021 7:34 PM CDT R/O COVID-19 12/22/2022 12/22/2022 12/22/2022 12:2 5 PM CDT R/O COVID-19 09/07/2023 09/07/2023 09/07/2023 9:52 PM ROLL CHANGER documented as of this encounter Care Teams Baseball Scout Relationship Specialty Start Date End Date Kassy Jay MD [address] [place] [address] [phone] PCP - General Family Practice 12/04/22 documented as of this encounter
--- OUTSIDE RECORDS SUMMARY | 2025-06-22 09:31 | XMS_ITS | Encounter Summary ---
Author Organization [facility] Address [address] [place] [address] Care Team Providers Care Trimming Inspector Name Role Phone Kassy Jay MD Primary Care Provider [phone] Encounter Details Date Type Department Care Team (Late Contact Info) Description 1998 Outpatient Historical [facility] Pediatrics - [facility] [address] [address] [facility] [address] [place] [address] Darren Tabor MD NO ADDRESS ON FILE Social History Tobacco Use Types Packs/Day Years Used Date Smoking Tobacco: Never Assessed Comments Unknown Sex and Gender Information Value Date Recorded Sex Assigned at Not on file Legal Sex Female 4:02 AM ADMINISTRATOR SOCIAL WELFARE Gender Identity Not on file Sexual Orientation Not on file documented as of this encounter Plan of Treatment Upcoming Encounters Date Type Department Care Team (Late Contact Info) Description 06/26/2025 9:00 AM CDT Video Visit [facility] Adult Psychiatry [address] [address] Argelia Law NP [address] [place] [address] 08/08/2025 7:30 AM ADMINISTRATOR SOCIAL WELFARE Video Visit [facility] Adult Psychiatry [address] [address] Argelia Law NP [address] [place] [address] [place] [address] 09/25/2025 8:00 AM ADMINISTRATOR SOCIAL WELFARE Office Visit [facility] Primary Care - Kirby Herrmann [address] [place] [address] Kassy Jay MD [address] [place] [phone] documented as of this encounter Visit Diagnoses Not on filedocumented in this encounter Additional Health Concerns Infection Onset Date Last Indicated Resolved Time R/O COVID-19 06/02/2021 06/03/2021 06/03/2021 7:34 PM CDT R/O COVID-19 12/22/2022 12/22/2022 12/22/2022 12:2 5 PM CDT R/O COVID-19 09/07/2023 09/07/2023 09/07/2023 9:52 PM ADMINISTRATOR SOCIAL WELFARE documented as of this encounter Care Teams Trimming Inspector Relationship Specialty Start Date End Date Kassy Jay MD [address] [place] [phone] PCP - General Family Practice 12/04/22 documented as of this encounter
--- OUTSIDE RECORDS SUMMARY | 2025-06-22 09:31 | XMS_ITS | Encounter Summary ---
Author Organization [facility] Address [address] [place] [address] Care Team Providers Care Tape Librarian Name Role Phone Kassy Jay MD Primary Care Provider [phone] Encounter Details Date Type Department Care Team (Late st Contact Info) Description 08/11/2007 Orders Only [facility] Pediatrics - [facility] [address] [place] [address] [place] [address] [facility] [address] [place] [address] Social History Tobacco Use Types Packs/Day Years Used Date Smoking Tobacco: Never Assessed Comments Unknown Sex and Gender Information Value Date Recorded Sex Assigned at Not on file Legal Sex Female 4:02 AM CABLE TELEVISION TECHNICIAN Gender Identity Not on file Sexual [...] of coughing up blood, the patient does not have a fever, no symptoms of loss of appetite, the patient does not have nasal congestion, no symptoms of shortness of breath, the patient does not have any vomiting, no symptoms of wheezing. The symptoms have not changed a great deal recently. Patient has been diagnosed with asthma. cough is worse at night and with exercise PHYSICAL EXAM: CONSTITUTIONAL: [...] Visit [facility] Adult Psychiatry [address] [address] [address] [place], [place] [address] Thanh, Argelia Lopez, [place] [address] [address] [place], [place] [address] 08/08/2025 7:30 AM CABLE TELEVISION TECHNICIAN Video Visit [facility] Adult Psychiatry [place] [phone] [place] [address] [place], [place] [address] Thanh, Argelia Lopez NP [address] [address] [place], [place] [address] 09/25/2025 8:00 AM CABLE TELEVISION TECHNICIAN Office Visit [facility] Primary Care - Kirby Herrmann [address] [place] [address] [phone] Kassy Jay MD [address] [place] [phone] documented as of this encounter Visit Diagnoses Not on filedocumented in this encounter Additional Health Concerns Infection Onset Date Last Indicated Resolved Time R/O COVID-19 06/02/2021 06/03/2021 06/03/2021 7:34 PM CDT R/O COVID-19 12/22/2022 12/22/2022 12/22/2022 12:2 5 PM CDT R/O COVID-19 09/07/2023 09/07/2023 09/07/2023 9:52 PM CABLE TELEVISION TECHNICIAN documented as of this encounter Care Teams Tape Librarian Relationship Specialty Start Date End Date Kassy Jay MD [address] [place] [address] [phone] PCP - General Family Practice 12/04/22 documented as of this encounter
--- OUTSIDE RECORDS SUMMARY | 2025-06-22 09:31 | XMS_ITS | Encounter Summary ---
Author Organization [facility] Address [address] [place] [address] Care Team Providers Care Animal Caretaker Name Role Phone Kassy Jay MD Primary Care Provider [phone] Encounter Details Date Type Department Care Team (Late Contact Info) Description 04/06/1999 Outpatient Historical [facility] Pediatrics - [facility] [address] [address] [facility] [address] [place] [address] Darren Tabor MD NO ADDRESS ON FILE Social History Tobacco Use Types Packs/Day Years Used Date Smoking Tobacco: Never Assessed Comments Unknown Sex and Gender Information Value Date Recorded Sex Assigned at Not on file Legal Sex Female 4:02 AM INSERTING OPERATOR Gender Identity Not on file Sexual Orientation Not on file documented as of this encounter Plan of Treatment Upcoming Encounters Date Type Department Care Team (Late Contact Info) Description 06/26/2025 9:00 AM CDT Video Visit [facility] Adult Psychiatry [address] [address] Argelia Law NP [address] [place] [address] 08/08/2025 7:30 AM INSERTING OPERATOR Video Visit [facility] Adult Psychiatry [address] [address] Argelia Law NP [address] [place] [address] [place] [address] 09/25/2025 8:00 AM INSERTING OPERATOR Office Visit [facility] Primary Care - Kirby Herrmann [address] [place] [phone] Kassy Jay MD [address] [place] [phone] documented as of this encounter Visit Diagnoses Not on filedocumented in this encounter Additional Health Concerns Infection Onset Date Last Indicated Resolved Time R/O COVID-19 06/02/2021 06/03/2021 06/03/2021 7:34 PM CDT R/O COVID-19 12/22/2022 12/22/2022 12/22/2022 12:2 5 PM CDT R/O COVID-19 09/07/2023 09/07/2023 09/07/2023 9:52 PM INSERTING OPERATOR documented as of this encounter Care Teams Animal Caretaker Relationship Specialty Start Date End Date Kassy Jay MD [address] [place] [place] [phone] PCP - General Family Practice 12/04/22 documented as of this encounter
--- OUTSIDE RECORDS SUMMARY | 2025-06-22 09:31 | XMS_ITS | Encounter Summary ---
Author Organization [facility] Address [address] [place] [address] Care Team Providers Care Aeronautical Drafter Name Role Phone Kassy Jay MD Primary Care Provider Encounter Details Date Type Department Care Team ([facility] Contact Info) Description 1998 Outpatient Historical 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 Gender Identity Not on file Sexual Orientation Not on file documented as of this encounter Plan of Treatment Upcoming Encounters Date Type Department Care Team ([facility] Contact Info) Description 06/26/2025 9:00 AM CDT Video Visit [facility] [place] Psychiatry [address] [place] [address] Argelia Law NP [address] [place], [place] [address] [address] 08/08/2025 7:30 AM SPEECH COMMUNICATION INSTRUCTOR Video Visit [facility] [place] Psychiatry [address] [place] [address] Argelia Law NP [address] [place] [address] [place] [address] 09/25/2025 8:00 AM SPEECH COMMUNICATION INSTRUCTOR Office Visit [facility] Primary Care - Kirby Herrmann [address] [place] [address] [address] Kassy Jay MD [address] [place] [phone] documented as of this encounter Visit Diagnoses Not on filedocumented in this encounter Additional Health Concerns Infection Onset Date Last Indicated Resolved Time R/O COVID-19 06/02/2021 06/03/2021 06/03/2021 7:34 PM CDT R/O COVID-19 12/22/2022 12/22/2022 12/22/2022 12:2 5 PM CDT R/O COVID-19 09/07/2023 09/07/2023 09/07/2023 9:52 PM SPEECH COMMUNICATION INSTRUCTOR documented as of this encounter Care Teams Aeronautical Drafter Relationship Specialty Start Date End Date Kassy Jay MD [address] [phone] PCP - General Family Practice 12/04/22 documented as of this encounter
[2025-06-22 09:34] LABS: Influenza A QL RT-PCR Negative (Negative); Influenza B QL RT-PCR Negative (Negative); RSV RNA, RT-PCR Negative (Negative); SARS-CoV-2 RNA PCR Negative (Negative)
[2025-06-22 09:43] LABS: Add Urine Microscopic? NO; Appearance Urine Clear (Clear); Glucose Urine UA Negative (Negative); Leukocyte Esterase Ur Negative LEU/UL (Negative); Nitrate Urine Negative (Negative); Specific Grav Ur 1.011 (1.001-1.035)
[2025-06-22 09:56] LABS: Strep Group A RT-PCR NOT DETECTED (Negative)
[2025-06-22 10:00] LABS: Cannabinoid Screen Urine Negative (Negative)
[2025-06-22] MEDS: BENZONATATE 100 MG CAPSULE 200 MG PO (11:50)
[2025-06-22 12:06] VITALS: BP 141/94; PULSE 74; RESP 23; O2SAT 100
[2025-06-22 12:27] VITALS: BP 151/108; PULSE 79; RESP 30; O2SAT 100
[2025-06-22 12:31] VITALS: BP 127/93; PULSE 76; RESP 26; O2SAT 99
[2025-06-22 13:00] VITALS: BP 145/99; PULSE 77; RESP 16; O2SAT 97
== END 2025-06-22 13:00 | disposition home or self-care (01) ==
PROVIDERS: Emergency Provider Emergency Medicine
DX: R41.0 Disorientation, unspecified (principal); B34.9 Viral infection, unspecified; R05.9 Cough, unspecified; Z20.822 Contact with and (suspected) exposure to COVID-19; K21.9 Gastro-esophageal reflux disease without esophagitis; F41.9 Anxiety disorder, unspecified; F31.9 Bipolar disorder, unspecified; Z79.899 Other long term (current) drug therapy
CPT/HCPCS: 36415; 70450; 71046; 72125; 80053; 80307; 81003; 83605; 85025; 85610; 85730; 87637; 87651; 96360; 99284; A9270; J7120

== ENCOUNTER 2025-06-28 09:28 | Emergency (ER) | payer OTHER, MEDICAID, SELFPAY ==
[2025-06-28] VITALS (9 sets, daily range): BP systolic 132–142; BP diastolic 81–96; PULSE 71–93; RESP 14–20; TEMP 36.6; O2SAT 98–100
--- NOTE | 2025-06-28 10:18 | ECG_ITS ---
Test Date: 2025-06-28 10:33:37 Measurements Intervals [place] Rate: 69 P: 6 IA: 157 QRS: 9 QRSD: 94 T: 43 QT: 382 QTc: 411 Interpretive Statements SINUS RHYTHM BASELINE ARTIFACT- I, II, AVR, V1 NORMAL ECG No previous ECG available for comparison Electronically Signed On 06-28-2025 10:41:11 CDT by Phillip Duval D.O.
[2025-06-28] MEDS: SODIUM CHLORIDE 0.9% IV 1,000 ML 999 ML IV CONT (10:22)
--- NOTE | 2025-06-28 10:26 | ED.GENADULT ---
HPI - General Adult General Chief complaint: Seizure Stated complaint: seizure Time Seen by Provider: 06/28/25 09:40 History of Present Illness HPI narrative: Chavez Francis is a 25-year-old female who presents today with complaints of having history of the chronic dizziness for years, eating disorder, pseudoseizures. She states that she sees a neurologist for her dizziness but they have cleared her for being treated with seizures to her neurologist and says that her seizures are psychiatric and she sees her psychiatrist for her seizure disorder. She states that she only takes Ativan for seizures and today she is asking if she can be started on Keppra. She states that today she was at class and when outside is a phone and when she came back in class she did feel a little bit dizzy and held onto the wall and slid down the wall onto the floor. She has a friend with her that within the classroom who said that she did not hit her head she basically just slid down the wall and when she lay down her eyes were fluttering and the friend thinks maybe lasted for about 3 minutes and EMS brought her here. Patient states that she is currently on a she is on Scopolamine patch for her dizziness. Related Data Home Medications ?Medication ?Instructions ?Recorded ?Confirmed ?Last Taken ?Type benztropine 1 mg tablet 1 mg PO BID 06/22/25 06/22/25 06/22/25 History cariprazine 6 mg capsule (Vraylar) 6 mg PO DAILY 06/22/25 06/22/25 06/22/25 History famotidine 20 mg tablet (Pepcid) 20 mg PO BID 06/22/25 06/22/25 06/22/25 History fluoxetine 20 mg capsule 20 mg PO DAILY 06/22/25 06/22/25 06/22/25 History fluoxetine 40 mg capsule 40 mg PO DAILY 06/22/25 06/22/25 06/22/25 History lorazepam 2 mg tablet 2 mg PO TID 06/22/25 06/22/25 06/22/25 History methylphenidate HCl 18 mg 18 mg PO ONCE 06/22/25 06/22/25 06/22/25 History tablet,extended release 24 hr (Concerta) methylphenidate HCl 5 mg tablet 5 mg PO BID 06/22/25 06/22/25 06/22/25 History (Ritalin) thiamine HCl (vitamin B1) 250 mg 250 mg PO DAILY 06/22/25 06/22/25 06/22/25 History tablet (Vitamin B-1) trazodone 100 mg tablet 300 mg PO HS 06/22/25 06/22/25 06/21/25 History trazodone 300 mg tablet 300 mg PO HS 06/22/25 06/22/25 06/21/25 History Allergies Allergy/AdvReac Type Severity Reaction Status Date / Time amoxicillin Allergy Severe Anaphylaxis Verified 06/28/25 09:40 Review of Systems Review of Systems: All systems reviewed & are unremarkable except as noted in HPI and below PMFSH Past Medical History Medical History Anxiety GERD (gastroesophageal reflux disease) Bipolar disorder Exam Narrative: GENERAL: Well-appearing, well-nourished, and in no acute distress. HEAD: Normocephalic, atraumatic. EYES: PERRLA and EOMI. ENT: Nares clear, no rhinorrhea or epistaxis. Mucous membranes moist. Oropharynx without tonsillar hypertrophy exudate or other lesions. NECK: Supple. No adenopathy or masses. No carotid bruits or JVD CHEST: Clear to auscultation. No respiratory distress. No wheezes rales or rhonchi HEART: Regular rate and rhythm. No murmur heard. Normal peripheral pulses. ABDOMEN: Soft, nontender, nondistended, normal active bowel sounds. EXTREMITIES: Normal range of motion. No edema. SKIN: Warm, dry, no rash. NEURO: No focal deficits. Alert and oriented x3. PSYCH: Normal mood and affect. Course Vital Signs Vital signs: Vital Signs Temperature 36.6 C 06/28/25 09:27 Pulse Rate 88 06/28/25 09:27 Respiratory Rate 18 06/28/25 09:27 Blood Pressure 142/94 H 06/28/25 09:27 Pulse Oximetry 99 06/28/25 09:27 Oxygen Delivery Room Air 06/28/25 09:27 Temperature 36.6 C 06/28/25 09:27 Pulse Rate 82 06/28/25 10:22 Respiratory Rate 20 06/28/25 10:22 Blood Pressure 134/96 H 06/28/25 10:22 Pulse Oximetry 100 06/28/25 10:22 Oxygen Delivery Room Air 06/28/25 09:36 Medical Decision Making MDM Narrative Medical decision making narrative: 25-year-old female who presents today with reports of having her pseudoseizures at school today. It was witnessed by a friend who is here with her here the states that she did not hit her head she held onto the wall and slid down the wall the left side of her body and laid down and then had a eye fluttering that the friend feels like lasted about 3 minutes. Patient states that she has been worked up with Neurology and Psychiatry for these in the believes they are psychiatric seizures and she only takes Ativan for them. Otherwise she has been in her normal state of health . Concern for : electrolyte imbalance, anemia, anxiety, UTI, infection Plan to check labs and give IV fluids and likely d/c home with continued management with her specialties. EKG-sinus rhythm rate 69 CBC-no leukocytosis, hemodynamically stable CMP-unremarkable Troponin-negative Magnesium-1.8 Lactate-1.2 UA-unremarkable Urine -negative Patient's workup is grossly stable she was here last week for similar and had a very thorough workup completed as well I feel comfortable with discharging her and stable condition home to continue her home medications and follow up with her neurologist and her psychiatrist and is always return precautions as needed. Medical Records Medical records reviewed: Yes I reviewed the external patient's medical records. Vital Signs Vital Signs: Vital Signs Temperature 36.6 C 06/28/25 09:27 Pulse Rate 88 06/28/25 09:27 Respiratory Rate 18 06/28/25 09:27 Blood Pressure 142/94 H 06/28/25 09:27 Pulse Oximetry 99 06/28/25 09:27 Oxygen Delivery Room Air 06/28/25 09:27 Temperature 36.6 C 06/28/25 09:27 Pulse Rate 82 06/28/25 10:22 Respiratory Rate 20 06/28/25 10:22 Blood Pressure 134/96 H 06/28/25 10:22 Pulse Oximetry 100 06/28/25 10:22 Oxygen Delivery Room Air 06/28/25 09:36 Vitals reviewed by me Lab Data Lab results reviewed: Yes I reviewed the patient's lab results. 06/28/25 10:32 06/28/25 10:32 Labs: Lab Results 10/08/25 10/08/25 Range/Units 10:32 10:38 WBC 8.4 (4.5-10.0) K/mm3 RBC 4.64 (4.2-5.4) M/mm3 Hgb 13.5 (12.0-15.0) g/dL Hct 40.6 (37.0-47.0) % MCV 87.5 (80-100) fl MCH 29.1 (26-34) pg MCHC 33.3 (32-36) g/dl RDW 11.8 (11.5-14.5) % Plt Count 242 (150-375) k/mm3 MPV 9.5 (7.4-10.4) fl Immature Gran % (Auto) 0.6 H (0-0.5) % Neut % (Auto) 61.2 (45.5-73.1) % Lymph % (Auto) 29.0 (18.3-44.2) % [place] % (Auto) 6.1 (2.6-8.5) % Eos % (Auto) 2.7 (0-4.4) % Baso % (Auto) 0.4 (0.2-1.2) % Lymph # (Auto) 2.44 (0.9-3.2) K/mm3 [place] # (Auto) 0.5 (0.1-0.6) K/mm3 Eos # (Auto) 0.2 (0-0.3) K/mm3 Baso # (Auto) 0.0 (0.0-0.1) K/mm3 Abs Immat Gran (auto) 0.05 H (0.00-0.031) K/mm3 Absolute Neuts (auto) 5.2 (1.3-6.7) K/mm3 Absolute Nucleated RBC 0.000 (0.0-0.012) K/mm3 Nucleated RBC % 0.0 (0.0-0.2) % Sodium 137 (137-145) mmol/L Potassium 4.0 (3.4-5.0) mmol/L Chloride 101 (98-107) mmol/L Carbon Dioxide 27 (22-30) mmol/L Anion Gap 9 (4-12) mmol/L BUN 14 (7-17) mg/dL Creatinine 0.53 L (0.7-1.0) mg/dL Estim Creat Clear Calc 126 ml/min Estimated GFR > 60 (59 - ) Glucose 100 (65-110) mg/dL Lactic Acid 1.2 (0.7-2.0) mmol/L Calcium 9.5 (8.4-10.2) mg/dL Magnesium 1.8 (1.6-2.3) mg/dL Total Bilirubin 0.1 L (0.2-1.3) mg/dL AST 23 (14-36) U/L ALT 23 (6-35) U/L Alkaline Phosphatase 59 (38-126) U/L Troponin I < 0.012 (0.000-0.034) ng/mL Total Protein 7.6 (6.3-8.2) g/dL Albumin 4.6 (3.5-5.1) g/dL Urine Color Yellow (Yellow) Urine Appearance Clear (Clear) Urine pH 8.0 (5.0-9.0) Ur Specific [place] 1.007 (1.001-1.035) Urine Protein Negative (Negative) mg/dL Urine Glucose (UA) Negative (Negative) mg/dL Urine Ketones Negative (Negative) mg/dL Ur Blood (Man) Negative (Negative) Urine Nitrate Negative (Negative) Urine Bilirubin Negative (Negative) Urine Urobilinogen 0.2 (<2.0) mg/dL Leukocyte Esterase Rfl Negative (Negative) SENAIT/UL POC Urine HCG, Qual Negative (Negative) ECG Data EKG #1: ECG completion date: 06/28/25 ECG completion time: 10:33 Interpretation: Rate 69 [place] 157 QRSd 94 QT 382 QTc 411 --[place]-- P 6 QRS 9 T 43 SINUS RHYTHM BASELINE ARTIFACT- I, II, AVR, V1 NORMAL ECG Discharge Plan Discharge Clinical Impression: Seizures, transient Patient Disposition: Home Condition: Stable Instructions: Antibiotic Form, Nonepileptic Seizures (ED) Additional Instructions: Continue to take your medications as previously prescribed make sure drinking plenty of fluid and eating 3 meals a day. Please follow-up with your neurologist and your psychiatrist as discussed. If he should develop any new or worsening symptoms as always return to the emergency department. Patient Language: Burmese Prescriptions: No Action benztropine 1 mg tablet 1 mg PO BID methylphenidate HCl [Concerta] 18 mg tablet extended release 24hr 18 mg PO ONCE famotidine [Pepcid] 20 mg tablet 20 mg PO BID fluoxetine 40 mg capsule 40 mg PO DAILY lorazepam 2 mg tablet 2 mg PO TID fluoxetine 20 mg capsule 20 mg PO DAILY methylphenidate HCl [Ritalin] 5 mg tablet 5 mg PO BID trazodone 100 mg tablet 300 mg PO HS trazodone 300 mg tablet 300 mg PO HS thiamine HCl (vitamin B1) [Vitamin B-1] 250 mg tablet 250 mg PO DAILY Vraylar 6 mg capsule 6 mg PO DAILY benzonatate 100 mg capsule 100 mg PO TID PRN (Reason: cough) Qty: 14 0RF Follow-up/Referrals: UNKNOWN,DOCTOR [Primary Care Provider] Stand Alone Forms: Work/School Release IP Time of Disposition: 11:32
[2025-06-28 10:41] LABS: BEDSIDEPREGUCG Negative (Negative)
[2025-06-28 10:42] LABS: Hematocrit 40.6 % (37.0-47.0); Hemoglobin 13.5 g/dL (12.0-15.0); Immature Granulocyte Percent A 0.6 % (0-0.5); Lymphocytes Absolute Auto 2.44 K/mm3 (0.9-3.2); Mean Corpuscular HGB Conc 33.3 g/dl (32-36); Mean Corpuscular Hemoglobin 29.1 pg (26-34); Mean Corpuscular Volume 87.5 fl (80-100); Nucleated Red Blood Cells Absolute Auto 0.000 K/mm3 (0.0-0.012); Nucleated Red Blood Cells Perc 0.0 % (0.0-0.2); Platelet Count Result 242 k/mm3 (150-375); Red Blood Count 4.64 M/mm3 (4.2-5.4); White Blood Count 8.4 K/mm3 (4.5-10.0)
[2025-06-28 10:50] LABS: Add Urine Microscopic? NO; Appearance Urine Clear (Clear); Glucose Urine UA Negative (Negative); Leukocyte Esterase Ur Negative LEU/UL (Negative); Nitrate Urine Negative (Negative); Specific Grav Ur 1.007 (1.001-1.035)
[2025-06-28 10:53] LABS: Alanine Aminotransferase 23 U/L (6-35); Albumin Level 4.6 g/dL (3.5-5.1); Alkaline Phosphatase 59 U/L (38-126); Anion Gap 9 mmol/L (4-12); Aspartate Amino Transferase 23 U/L (14-36); Bilirubin,Total 0.1 mg/dL (0.2-1.3); Blood Urea Nitrogen 14 mg/dL (7-17); Calcium 9.5 mg/dL (8.4-10.2); Carbon Dioxide 27 mmol/L (22-30); Chloride 101 mmol/L (98-107); Estimated CRCL calculation 126 ml/min; Estimated Glomerular Filt Rate > 60; Glucose 100 mg/dL (65-110); Magnesium 1.8 mg/dL (1.6-2.3); Potassium 4.0 mmol/L (3.4-5.0); Sodium 137 mmol/L (137-145); Total Protein 7.6 g/dL (6.3-8.2)
[2025-06-28 11:05] LABS: Troponin I < 0.012 ng/mL (0.000-0.034)
== END 2025-06-28 11:47 | disposition home or self-care (01) ==
PROVIDERS: Emergency Provider Nurse Practitioner Family
DX: R56.9 Unspecified convulsions (principal); K21.9 Gastro-esophageal reflux disease without esophagitis; F41.9 Anxiety disorder, unspecified; F31.9 Bipolar disorder, unspecified; Z79.899 Other long term (current) drug therapy
CPT/HCPCS: 36415; 80053; 81003; 81025; 83605; 83735; 84484; 85025; 93005; 96360; 99284; J7030

== ENCOUNTER 2025-07-18 10:02 | Emergency (ER) | payer OTHER, MEDICAID, SELFPAY ==
--- NOTE | ~2025-07-18 | CT_ITS ---
EXAMINATION: CT brain wo con COMPARISON: None HISTORY: AMS TECHNIQUE: Axial images were obtained through the brain without IV contrast. CT scan performed using dose optimization techniques including the following automated exposure control; adjustment of mA and/or kV; use of iterative reconstruction technique. Automatic exposure control was used to reduce radiation dose. Permanent radiation dose record is archived to PACS. FINDINGS: No acute infarct or parenchymal hemorrhage. No abnormal mass or mass effect. No midline shift. No extra-axial fluid collections. No hydrocephalus. . Mastoid air cells unremarkable. Sinuses and orbits unremarkable. No acute fracture. No significant facial or scalp soft tissue swelling evident. No radiopaque foreign body is seen. Impression: 1.No acute intracranial abnormality. Reviewed, dictated and finalized at location P. Impression: 1.No acute intracranial abnormality.
[2025-07-18 10:01] VITALS: BP 133/75; PULSE 113; RESP 18; TEMP 36.8; O2SAT 99
--- NOTE | 2025-07-18 10:07 | ECG_ITS ---
Test Date: 2025-07-18 10:09:26 Measurements Intervals [place] Rate: 111 P: 23 MO: 140 QRS: 3 QRSD: 86 T: 54 QT: 340 QTc: 462 Interpretive Statements SINUS TACHYCARDIA ABNORMAL ECG Compared to ECG 06/28/2025 10:33:37 HEART RATE HAS INCREASED Electronically Signed On 07-18-2025 10:23:23 CDT by Phillip Duval D.O.
[2025-07-18 10:08] VITALS: PULSE 113
[2025-07-18 10:31] VITALS: BP 119/71; PULSE 113; RESP 21; O2SAT 98
--- NOTE | 2025-07-18 10:39 | ED.SEIZURE ---
HPI - Seizure General Chief Complaint: Seizure Stated Complaint: pseudoseizure Time Seen by Provider: 07/18/25 10:13 Source: patient Mode of arrival: ambulatory Limitations: no limitations History of Present Illness HPI Narrative: This is a 25 year old female that presents to the ER for a possible seizure. Reports history of pseudoseizures. Reports she went to the bathroom during class and then ended up in the office and they called an ambulance as she seemed confused. Denies focal numbness, weakness. Related Data Home Medications ?Medication ?Instructions ?Recorded ?Confirmed ?Last Taken ?Type benztropine 1 mg tablet 1 mg PO BID 06/22/25 07/18/25 07/18/25 History cariprazine 6 mg capsule (Vraylar) 6 mg PO DAILY 06/22/25 07/18/25 07/18/25 History famotidine 20 mg tablet (Pepcid) 20 mg PO BID 06/22/25 07/18/25 07/18/25 History fluoxetine 20 mg capsule 20 mg PO DAILY 06/22/25 07/18/25 07/18/25 History fluoxetine 40 mg capsule 40 mg PO DAILY 06/22/25 07/18/25 07/18/25 History lorazepam 2 mg tablet 2 mg PO TID 06/22/25 07/18/25 07/18/25 History methylphenidate HCl 18 mg 18 mg PO ONCE 06/22/25 07/18/25 07/18/25 History tablet,extended release 24 hr (Concerta) methylphenidate HCl 5 mg tablet 5 mg PO BID 06/22/25 07/18/25 07/18/25 History (Ritalin) thiamine HCl (vitamin B1) 250 mg 250 mg PO DAILY 06/22/25 07/18/25 07/18/25 History tablet (Vitamin B-1) trazodone 100 mg tablet 200 mg PO HS 06/22/25 07/18/25 07/17/25 History Allergies Allergy/AdvReac Type Severity Reaction Status Date / Time amoxicillin Allergy Severe Anaphylaxis Verified 07/18/25 10:09 Review of Systems Review of Systems: All systems reviewed & are unremarkable except as noted in HPI and below PMFSH Past Medical History Medical History Anxiety GERD (gastroesophageal reflux disease) Bipolar disorder Exam Narrative: GENERAL: Well-appearing, well-nourished, and in no acute distress. HEAD: Normocephalic, atraumatic. EYES: PERRLA and EOMI. ENT: Nares clear, no rhinorrhea or epistaxis. Mucous membranes moist. Oropharynx without tonsillar hypertrophy exudate or other lesions. Bilateral TMs [place] non-bulging NECK: Supple. No adenopathy or masses. CHEST: Clear to auscultation. No respiratory distress. No wheezes rales or rhonchi HEART: Regular rate and rhythm. No murmur heard. Normal peripheral pulses. ABDOMEN: Soft, nontender, nondistended, normal active bowel sounds. EXTREMITIES: Normal range of motion. No edema. Strength equal in bilateral upper and lower extremities (5/5) SKIN: Warm, dry, no rash. NEURO: No focal deficits. Alert and oriented x3. Cranial nerves 2-12 grossly PSYCH: Normal mood and affect Course Vital Signs Vital signs: Vital Signs Temperature 98.2 F 07/18/25 10:01 Pulse Rate 113 H 07/18/25 10:01 Respiratory Rate 18 07/18/25 10:01 Blood Pressure 133/75 07/18/25 10:01 Pulse Oximetry 99 07/18/25 10:01 Oxygen Delivery Room Air 07/18/25 10:01 Temperature 98.2 F 07/18/25 10:01 Pulse Rate 86 07/18/25 13:46 Respiratory Rate 19 07/18/25 13:46 Blood Pressure 156/79 H 07/18/25 13:46 Pulse Oximetry 97 07/18/25 13:46 Oxygen Delivery Room Air 07/18/25 10:01 MDM - Seizure MDM Narrative Medical decision making narrative: Patient presents to the emergency department for a possible pseudo seizure today. History of same. Reportedly was confused at her school and ended up in the [employer] office. She is afebrile and nontoxic appearing. Alert oriented in the ER without focal deficits. Tachycardic upon arrival, this normalized with IV fluids. Cbc without leukocytosis. Metabolic panel without concerning findings. Urine without evidence of infection. Drug screen negative. test negative. Alcohol level is not elevated. CT brain without acute findings. Patient updated on her workup. Instructed to have further follow-up with her primary provider. She was given warnings to return to the ER Differential Diagnosis Differential diagnosis: Likely focal seizure, new onset seizure and other (Pseudo-seizure, electrolyte derangement, dehydration, infection, intoxication, adverse drug reaction) Lab Data Attestation: I reviewed the patient's lab results. 07/18/25 10:44 07/18/25 10:44 Labs: Lab Results 07/18/25 07/18/25 07/18/25 Range/Units 10:44 12:02 12:17 WBC 8.3 (4.5-10.0) K/mm3 RBC 4.49 (4.2-5.4) M/mm3 Hgb 13.1 (12.0-15.0) g/dL Hct 39.5 (37.0-47.0) % MCV 88.0 (80-100) fl MCH 29.2 (26-34) pg MCHC 33.2 (32-36) g/dl RDW 12.1 (11.5-14.5) % Plt Count 224 (150-375) k/mm3 MPV 9.2 (7.4-10.4) fl Immature Gran % (Auto) 0.6 H (0-0.5) % Neut % (Auto) 55.0 (45.5-73.1) % Lymph % (Auto) 29.6 (18.3-44.2) % [place] % (Auto) 5.8 (2.6-8.5) % Eos % (Auto) 8.6 H (0-4.4) % Baso % (Auto) 0.4 (0.2-1.2) % Lymph # (Auto) 2.47 (0.9-3.2) K/mm3 [place] # (Auto) 0.5 (0.1-0.6) K/mm3 Eos # (Auto) 0.7 H (0-0.3) K/mm3 Baso # (Auto) 0.0 (0.0-0.1) K/mm3 Abs Immat Gran (auto) 0.05 H (0.00-0.031) K/mm3 Absolute Neuts (auto) 4.6 (1.3-6.7) K/mm3 Absolute Nucleated RBC 0.000 (0.0-0.012) K/mm3 Nucleated RBC % 0.0 (0.0-0.2) % PT 12.5 (11.1-14.7) Seconds INR 0.9 APTT 27.9 (22.3-36.8) Seconds Sodium 136 L (137-145) mmol/L Potassium 4.4 (3.4-5.0) mmol/L Chloride 105 (98-107) mmol/L Carbon Dioxide 23 (22-30) mmol/L Anion Gap 8 (4-12) mmol/L BUN 25 H D (7-17) mg/dL Creatinine 0.54 L (0.7-1.0) mg/dL Estim Creat Clear Calc 125 ml/min Estimated GFR > 60 (59 - ) Glucose 102 (65-110) mg/dL Calcium 9.2 (8.4-10.2) mg/dL Total Bilirubin 0.2 (0.2-1.3) mg/dL AST 26 (14-36) U/L ALT 23 (6-35) U/L Alkaline Phosphatase 57 (38-126) U/L Total Protein 7.2 (6.3-8.2) g/dL Albumin 4.3 (3.5-5.1) g/dL Urine Color Yellow (Yellow) Urine Appearance Clear (Clear) Urine pH 5.5 (5.0-9.0) Ur Specific [place] 1.019 (1.001-1.035) Urine Protein Negative (Negative) mg/dL Urine Glucose (UA) Negative (Negative) mg/dL Urine Ketones Negative (Negative) mg/dL Ur Blood (Man) 1+ H (Negative) Urine Nitrate Negative (Negative) Urine Bilirubin Negative (Negative) Urine Urobilinogen 0.2 (<2.0) mg/dL Add Ur Microanalysis Reviewed Leukocyte Esterase Rfl 1+ H (Negative) SENAIT/UL Urine RBC 0-2 (0-2) /hpf Urine WBC 0-5 (0-3) /hpf Ur Squamous Epith Cells None seen (Few) /hpf Urine Bacteria Rare /hpf Urine Casts 0-2 POC Urine HCG, Qual Negative (Negative) Urine Opiates Screen Negative (Negative) Urine Methadone Screen Negative (Negative) Ur Barbiturates Screen Negative (Negative) Ur Phencyclidine Scrn Negative (Negative) Ur Amphetamine Screen Negative (Negative) U Benzodiazepines Scrn Negative (Negative) Urine Cocaine Screen Negative (Negative) U Cannabinoids Screen Negative (Negative) Ethyl Alcohol < 10 (<10) mg/dL Imaging Data Radiologist's impression: ITS Impressions Head CT 07/18/25 11:11 Impression: 1.No acute intracranial abnormality. ECG Data EKG #1: ECG completion date: 07/18/25 EKG Interpretation: tachycardia, sinus rhythm, no ST changes and normal QT Critical Care Time Critical Care Time Critical Care Time: No Discharge Plan Discharge Clinical Impression: Acute confusion Patient Disposition: Home Condition: Improved Instructions: Altered Mental Status (ED) Additional Instructions: Return to the emergency department if you experience fever, chest pain, shortness of breath, abdominal pain with nausea and vomiting, weakness, numbness, or any other symptoms that are concerning to you. Follow up with your primary care doctor Patient Language: Estonian Prescriptions: No Action benztropine 1 mg tablet 1 mg PO BID methylphenidate HCl [Concerta] 18 mg tablet extended release 24hr 18 mg PO ONCE famotidine [Pepcid] 20 mg tablet 20 mg PO BID fluoxetine 40 mg capsule 40 mg PO DAILY lorazepam 2 mg tablet 2 mg PO TID fluoxetine 20 mg capsule 20 mg PO DAILY methylphenidate HCl [Ritalin] 5 mg tablet 5 mg PO BID trazodone 100 mg tablet 200 mg PO HS thiamine HCl (vitamin B1) [Vitamin B-1] 250 mg tablet 250 mg PO DAILY Vraylar 6 mg capsule 6 mg PO DAILY Follow-up/Referrals: UNKNOWN,DOCTOR [Primary Care Provider]
[2025-07-18] MEDS: SODIUM CHLORIDE 0.9% IV 1,000 ML 999 ML IV CONT (10:40)
[2025-07-18 10:54] LABS: Hematocrit 39.5 % (37.0-47.0); Hemoglobin 13.1 g/dL (12.0-15.0); Immature Granulocyte Percent A 0.6 % (0-0.5); Lymphocytes Absolute Auto 2.47 K/mm3 (0.9-3.2); Mean Corpuscular HGB Conc 33.2 g/dl (32-36); Mean Corpuscular Hemoglobin 29.2 pg (26-34); Mean Corpuscular Volume 88.0 fl (80-100); Nucleated Red Blood Cells Absolute Auto 0.000 K/mm3 (0.0-0.012); Nucleated Red Blood Cells Perc 0.0 % (0.0-0.2); Platelet Count Result 224 k/mm3 (150-375); Red Blood Count 4.49 M/mm3 (4.2-5.4); White Blood Count 8.3 K/mm3 (4.5-10.0)
--- NOTE | 2025-07-18 11:00 | PC.NURSE ---
Pt attempted to give a urine sample and was not able too.
[2025-07-18 11:01] VITALS: BP 119/69; PULSE 107; RESP 24; O2SAT 99
[2025-07-18 11:07] LABS: INR 0.9; Prothrombin Time 12.5 Seconds (11.1-14.7)
[2025-07-18 11:08] LABS: Alanine Aminotransferase 23 U/L (6-35); Albumin Level 4.3 g/dL (3.5-5.1); Alkaline Phosphatase 57 U/L (38-126); Anion Gap 8 mmol/L (4-12); Aspartate Amino Transferase 26 U/L (14-36); Bilirubin,Total 0.2 mg/dL (0.2-1.3); Blood Urea Nitrogen 25 mg/dL (7-17); Calcium 9.2 mg/dL (8.4-10.2); Carbon Dioxide 23 mmol/L (22-30); Chloride 105 mmol/L (98-107); Estimated CRCL calculation 125 ml/min; Estimated Glomerular Filt Rate > 60; Glucose 102 mg/dL (65-110); Partial Thromboplastin Time 27.9 Seconds (22.3-36.8); Potassium 4.4 mmol/L (3.4-5.0); Sodium 136 mmol/L (137-145); Total Protein 7.2 g/dL (6.3-8.2)
[2025-07-18 12:20] LABS: BEDSIDEPREGUCG Negative (Negative)
[2025-07-18 12:25] LABS: Add Urine Microscopic? YES; Appearance Urine Clear (Clear); Glucose Urine UA Negative (Negative); Leukocyte Esterase Ur 1+ LEU/UL (Negative); Need Manual Microscopic Reviewed; Nitrate Urine Negative (Negative); Non Pathogenic Casts 0-2; Specific Grav Ur 1.019 (1.001-1.035)
[2025-07-18 12:32] VITALS: BP 104/72; PULSE 78; RESP 23; O2SAT 100
[2025-07-18 12:45] LABS: Cannabinoid Screen Urine Negative (Negative)
--- OUTSIDE RECORDS SUMMARY | 2025-07-18 13:22 | XMS_ITS | Clinical Summary ---
Author Organization [facility] Address [address] [place] [address] Care Team Providers Care Inspector And Adjuster [employer] Name Role Phone Kassy Jay MD Primary Care Provider [phone] No, Physician Unavailable Allergies Active Allergy Reactions [...] 08/25/2022 Assessment & Plan (08/26/2022 1:10 PM HAND CULTIVATOR): - pt presenting after shaking episode similar to previous episodes of psychogenic nonepileptic seizures. 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 - Admitted for Observation secondary to sedation. Back to baseline mental status today. Assessment & Plan (08/25/2022 10:54 PM HAND CULTIVATOR): - pt presenting after shaking episode similar [...] sent hypoglycemia labs. Discussed with veronica, outpatient graphics edit technician Dr. Mejia will f/u with results & [...] 07/20/2022 Assessment & Plan (08/25/2022 10:40 PM HAND CULTIVATOR): -cont linzess Assessment & Plan (07/21/2022 10:08 AM CDT): - Continue home Linzess and Colace Assessment & Plan (07/20/2022 8:31 PM CDT): -Continue home Linzess and Colace. Asthma 11/06/2020 Assessment & Plan (08/26/2022 1:11 PM HAND CULTIVATOR): - stable, cont home inhalers Assessment & Plan (08/25/2022 10:41 PM HAND CULTIVATOR): -cont home inhalers Gastroesophageal reflux disease 11/06/2020 Assessment & Plan (08/26/2022 1:11 PM HAND CULTIVATOR): -cont pepcid and ppi Assessment & Plan (08/25/2022 10:40 PM HAND CULTIVATOR): - cont pepcid and ppi Assessment & [...] 9:01 AM CDT): Patient reports follows with [facility] psychiatry. Pharmacy list confirmed with patient. Concern of polypharmacy discussed with patient. - witnessed pseudoseizure 07/22 AM, VS stable and BG 111. No meds given. Self resolved. - Continue home Lamictal, Topomax and gabapentin Assessment & Plan (07/20/2022 8:27 PM CDT): -[facility] [...] celexa Assessment & Plan (08/26/2022 1:11 PM HAND CULTIVATOR): - patient with chart history of BARBIE, MDD, ptsd, and borderline personality disorder. - follows with psychiatrist and on extensive medication regimen. - cont home duloxetine, lurasidone, lamotrigine, and prazosin. - held several medications including nortriptyline, temazepam,clonazepam and gabapentin given drowsiness Assessment & Plan (08/25/2022 10:46 PM HAND CULTIVATOR): - patient with chart history of BARBIE, [...] 01/21/2017 Overview (05/17/2020): Overview: Overview: Thinks from [facility]; has follow up with 02/06/17 Asthma, moderate [...] on file Legal Sex Female 11:33 PM HAND CULTIVATOR Gender Identity Female 05/17/2020 9:28 AM CDT Sexual Orientation Straight 05/17/2020 9: 28 AM CDT Obstetrics History Last Filed Vital Signs Vital Sign Reading Time Taken Comments Blood Pressure 106/54 08/26/2022 8:50 AM HAND CULTIVATOR Pulse 92 08/26/2022 8:18 AM HAND CULTIVATOR Temperature 36.6 C (97.9 F) 08/26/2022 8:18 AM HAND CULTIVATOR Respiratory Rate 16 08/26/2022 8:18 AM HAND CULTIVATOR Oxygen Saturation 97% 08/26/2022 8:18 AM HAND CULTIVATOR Inhaled Oxygen Concentration - - Weight 93.4 kg (205 lb 14.4 oz) 022 11:06 PM HAND CULTIVATOR Height 154.9 cm (5' 1) 08/25/2022 11:0 6 PM HAND CULTIVATOR Body Mass Index 38.9 08/25/2022 11:06 PM HAND CULTIVATOR Plan of Treatment Health Maintenance Due Date [...] Varicella Vaccines Completed 02/15/2016, 02/26/1999 Insurance BLUE [facility] CHOICE OOS [facility] CHOICE OOS Member Subscriber Plan / Payer (Ef fective 2017-Present) Name:Isaura Holland Relation to Subscriber:Child Name:AMALIAORIN Date of :1899 (Home) Address: [address] [place] [address] Payer ID:[id number] (NAIC) Type:Arista [employer] Address: [address] [place]UE [place] BLUE [place] CHOICE [place] Advance Directives For more information, please contact: [phone] * Full Code (Latest Code Status on File) Date Activated Date Inactivated Comments 08/25/2022 11:05 PM 08/26/2022 6:08 PM * Full Code Date Activated Date Inactivated Comments 07/20/2022 7:11 PM 07/23/2022 7:19 PM Care Teams Inspector And Adjuster [employer] Relationship Specialty Start Date End Date Kassy Jay MD [id number] [place] [id number] PCP - General Family Practice 07/21/22 No, Physician 08/26/22
--- OUTSIDE RECORDS SUMMARY | 2025-07-18 13:23 | XMS_ITS | Clinical Summary ---
Author Organization [facility] Address [address] [facility] [address] [address] Care Team Providers Care Funeral Service Practitioner/Embalmer Name Role Phone Kassy Jay MD Primary Care Provider [phone] Source Comments [facility] [employer],non-owned Affiliates and Associated Physician Practices is amultiple site organization consisting of ambulatory clinics and hospital sitesin [place], [place], [place] and [place]. This disclosure is being madepursuant to the Care Everywhere program and may not contain all information available regarding this patient. Last updated 18.[facility] [employer] Allergies Active Allergy Reactions Criticality Noted Date [...] Zyrtec & solumedrol given. Make appt with securities supervisor. 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 Endocrinology. Recently started on diazoxide. BG [...] sent hypoglycemia labs. Discussed with veronica, outpatient feed and farm management adviser Dr. Mejia will f/u with results & [...] Assessment & Plan: Patient reports follows with [facility] psychiatry. Pharmacy list confirmed with patient. [...] Comments Blood Pressure 113/71 10/11/2024 2:05 PM RESEARCH AND DEVELOPMENT TECHNICIAN Pulse 82 10/11/2024 2:05 PM RESEARCH AND DEVELOPMENT TECHNICIAN Temperature 36.7 C (98.1 F) 10/11/2024 11:52 AM RESEARCH AND DEVELOPMENT TECHNICIAN Respiratory Rate 20 10/11/2024 2:05 PM RESEARCH AND DEVELOPMENT TECHNICIAN Oxygen Saturation 98% 10/11/2024 2:05 PM RESEARCH AND DEVELOPMENT TECHNICIAN Inhaled Oxygen Concentration - - Weight 81.6 kg (180 lb) 10/11/2024 11:52 AM RESEARCH AND DEVELOPMENT TECHNICIAN Height 154.9 cm (5' 1) 10/11/2024 11:52 AM RESEARCH AND DEVELOPMENT TECHNICIAN Body Mass Index 34.01 10/11/2024 11:52 AM RESEARCH AND DEVELOPMENT TECHNICIAN Plan of Treatment Upcoming Encounters Date Type Department Care Team (Late st Contact Info) Description 09/12/2025 9:45 AM RESEARCH AND DEVELOPMENT TECHNICIAN Office Visit [facility] Medical [facility] - EQUIPMENT SCHEDULER [address] [facility], [facility] [address] [address] Sam Cui MD [address] [facility] [address] [place] [address] Health Maintenance [...] HR ALL PATH Routine 08/31/2023 10:35 AM RESEARCH AND DEVELOPMENT TECHNICIAN Routine cervical smear from Last 3 Months or Most Recently Relevant to Health Maintenance Results * PAP IG RFLX HPV HR ALL PATH (08/31/2023 10:35 AM RESEARCH AND DEVELOPMENT TECHNICIAN) Diagnosis [facility] INSURANCE BILL Comment: NEGATIVE FOR INTRAEPITHELIAL LESION OR MALIGNANCY. REACTIVE CELLULAR CHANGES AND/OR REPAIR ARE PRESENT. Specimen Adequacy [facility] INSURANCE BILL Comment: Satisfactory for evaluation. Endocervical and/or squamous metaplastic cells (endocervical component) are present. Clinician Provided ICD10 [facility] INSURANCE BILL Comment: Z01.419 Z12.4 Z97.5 Performed by [facility] INSURANCE BILL Comment:Casey Dunn hnologist (ASCP) Electronically Signed by [facility] INSURANCE BILL Comment:Mony Hermosillo MD, P athologist Comment . [facility] INSURANCE BILL Note [facility] INSURANCE BILL Comment: The Pap smear is a screening test designed to aid in the detection of premalignant and malignant conditions of the uterine cervix. It is not a diagnostic procedure and should not be used as the sole means of detecting cervical cancer. Both false-positive and false-negative reports do occur. . IGLBP CPT Code Automation [facility] INSURANCE BILL Comment: This liquid based ThinPrep(R) pap test was screened with the use of an image guided system. Note [facility] INSURANCE BILL Comment: The HPV DNA reflex criteria were not met with this specimen result therefore, no HPV testing was performed. . Pathology/Cytolog y ENTIRE ENDOCERVIX / Unknown 08/31/2023 10:35 AM RESEARCH AND DEVELOPMENT TECHNICIAN 09/01/2023 Narrative [facility] INSURANCE BILL - 09/03/2023 3:09 PM RESEARCH AND DEVELOPMENT TECHNICIAN Source.............Cervix No. of containers..01 ThinPrep Vial Resulting Agency Comment Lab Testing performed at: [facility] [id number] Sam Cui MD LAB - PATHOLOGY/CYTOLOGY ORDERAB LES Final Result [facility] INSURANCE BILL [address] [place] [address] from Last 3 Months or Most Recently Relevant to Health Maintenance Insurance [place] [address] [employer] Care Teams Funeral Service Practitioner/Embalmer Relationship Specialty Start Date End Date Kassy Jay MD [address] [place] [phone] PCP - General Family Medicine 06/15/23
[2025-07-18 13:46] VITALS: BP 156/79; PULSE 86; RESP 19; O2SAT 97
== END 2025-07-18 13:48 | disposition home or self-care (01) ==
PROVIDERS: Emergency Medicine; Emergency Provider Physician Assistant
DX: R41.0 Disorientation, unspecified (principal); K21.9 Gastro-esophageal reflux disease without esophagitis; F31.9 Bipolar disorder, unspecified; F41.9 Anxiety disorder, unspecified; Z79.899 Other long term (current) drug therapy
CPT/HCPCS: 36415; 70450; 80053; 80307; 81001; 81025; 82077; 85025; 85610; 85730; 87086; 93005; 96360; 99284; J7030

== ENCOUNTER 2025-07-29 15:13 | Emergency (ER) | payer OTHER, MEDICAID, SELFPAY ==
--- OUTSIDE RECORDS SUMMARY | 2024-05-20 12:58 | XMS_ITS | Continuity of Care Document ---
Author Organization [facility] Address [address] [place] [address] Phone Care Team Providers Care Oil Refinery Process Technician Name Role Phone Ruddy Mera MD Unavailable Unavailable Advance Directives Directive Yes / No Effective Date File Name No Information Encounters Encounter Description Practice Location Reason(s) For Visit Diagnoses Date Provider Providers Copied on Encounter [facility], [address], [place], [place], [id number], [place] tel:[phone] [facility] No Information Samaria Fox. [address], [facility] [address], [place], [place], [id number] , [place]. tel: [phone] Family History Family Member Type Diagnosis Age [...]
--- NOTE | ~2025-07-29 | CT_ITS ---
EXAMINATION: CT brain wo con COMPARISON: None HISTORY: SEIZURE TECHNIQUE: Axial images were obtained through the brain without IV contrast. CT scan performed using dose optimization techniques including the following automated exposure control; adjustment of mA and/or kV; use of iterative reconstruction technique. Automatic exposure control was used to reduce radiation dose. Permanent radiation dose record is archived to PACS. FINDINGS: No acute infarct or parenchymal hemorrhage. No abnormal mass or mass effect. No midline shift. No extra-axial fluid collections. No hydrocephalus. . Mastoid air cells unremarkable. Moderate right maxillary sinusitis No acute fracture. No significant facial or scalp soft tissue swelling evident. No radiopaque foreign body is seen. Impression: 1.No acute intracranial abnormality. Reviewed, dictated and finalized at location P. CONFORMING MACHINE OPERATOR Impression: 1.No acute intracranial abnormality.
--- NOTE | ~2025-07-29 | CT_ITS ---
EXAMINATION: CT cervical spine wo con COMPARISON: None HISTORY: SEIZURE TECHNIQUE: Axial images were obtained through the spine without IV contrast. Coronal, sagittal reconstruction images were obtained from the axial views. CT scan performed using dose optimization techniques including the following automated exposure control; adjustment of mA and/or kV; use of iterative reconstruction technique. Automatic exposure control was used to reduce radiation dose. Permanent radiation dose record is archived to PACS. FINDINGS: The vertebral heights are intact. No fracture or subluxation. Moderate loss of disc height at C5-C6. Soft tissues unremarkable. Impression: No acute abnormality. Reviewed, dictated and finalized at location P. EYOR MINE Impression: No acute abnormality.
--- NOTE | ~2025-07-29 | XR_ITS ---
EXAMINATION: XR chest 1V portable COMPARISON: No comparisons available. HISTORY: SEIZURE FINDINGS: The lungs are clear, no effusion. No pneumothorax. Heart is normal size. Mediastinal and hilar contours are within normal limits. Bony thorax no acute abnormality. Miscellaneous: None Impression: No acute cardiopulmonary abnormality. Reviewed, dictated and finalized at location P. RUMENT REPAIR TECHNICIAN Impression: No acute cardiopulmonary abnormality.
--- OUTSIDE RECORDS SUMMARY | 2025-07-29 15:15 | XMS_ITS | Clinical Summary ---
Author Organization [facility] Address [address] [facility] [address] [place] [address] Care Team Providers Care Drywall Metal Stud Worker Name Role Phone Kassy Jay MD Primary Care Provider [phone] Source Comments [facility] [employer],non-owned Affiliates and Associated Physician Practices is amultiple site organization consisting of ambulatory clinics and hospital sitesin [place], [place], [place] and [place]. This disclosure is being madepursuant to the Care Everywhere program and may not contain all information available regarding this patient. Last updated 18.[facility] [employer] Allergies Active Allergy Reactions Criticality Noted Date [...] Zyrtec & solumedrol given. Make appt with chairman president and chief executive officer. Axillary hyperhidrosis 06/17/2022 Overview (08/31/2023): Ref to derm, # given Hypoglycemia 06/17/2022 08/31/2023 Overview (08/31/2023): Last Assessment & Plan: Reports several episodes of hypoglycemia since April, was following with [facility] Endocrinology. Recently started on diazoxide. BG meter [...] sent hypoglycemia labs. Discussed with veronica, outpatient photoradio operator Dr. Mejia will f/u with results & [...] Assessment & Plan: Patient reports follows with [facility] psychiatry. Pharmacy list confirmed with patient. Concern [...] Industry Job Start Date Job End Date [facility] Not on file Not on file Not on file Last Filed Vital Signs Vital Sign Reading Time Taken Comments Blood Pressure 113/71 10/11/2024 2:05 PM [employer] Pulse 82 10/11/2024 2:05 PM [employer] Temperature 36.7 C (98.1 F) 10/11/2024 11:52 AM COMMUNITY HEALTH ADVOCATE Respiratory Rate 20 10/11/2024 2:05 PM [employer] Oxygen Saturation 98% 10/11/2024 2:05 PM COMM[employer]ITY HEALTH [employer] Inhaled Oxygen Concentration - - Weight 81.6 kg (180 lb) 10/11/2024 11:52 AM COMM[employer]ITY HEALTH AD[employer] Height 154.9 cm (5' 1) 10/11/2024 11:52 AM COMMUNITY HEALTH AD[employer]OCATE Body Mass Index 34.01 10/11/2024 11:52 AM COMMUNITY HEALTH AD[employer]OCATE Plan of Treatment Upcoming Encounters Date Type Department Care Team (Late st Contact Info) Description 09/12/2025 9:45 AM COMMUNITY HEALTH ADVOCATE Office Visit [facility] Health Medical Group - RN TESTING [address] [facility], [facility] [address] [address] Sam Cui MD [address] [facility] [address] [place] [address] Health Maintenance [...] HR ALL PATH Routine 08/31/2023 10:35 AM COMMUNITY HEALTH ADVOCATE Routine cervical smear from Last 3 Months or Most Recently Relevant to Health Maintenance Results * PAP IG RFLX HPV HR ALL PATH (08/31/2023 10:35 AM COMMUNITY HEALTH ADVOCATE) Diagnosis [facility] INSURANCE BILL Comment: NEGATIVE FOR INTRAEPITHELIAL LESION OR MALIGNANCY. REACTIVE CELLULAR CHANGES AND/OR REPAIR ARE PRESENT. Specimen Adequacy [facility] INSURANCE BILL Comment: Satisfactory for evaluation. Endocervical and/or squamous metaplastic cells (endocervical component) are present. Clinician Provided ICD10 [facility] INSURANCE BILL Comment: Z01.419 Z12.4 Z97.5 Performed by [facility] INSURANCE BILL Comment:Casey Dunn hnologist (ASCP) Electronically Signed by [facility] INSURANCE BILL Comment:Mony Hermosillo MD, P athologist Comment . [facility] INSURANCE BILL Note [facility] INSURANCE BILL Comment: The Pap smear is a screening test designed to aid in the detection of premalignant and malignant conditions of the uterine cervix. It is not a diagnostic procedure and should not be used as the sole means of detecting cervical cancer. Both false-positive and false-negative reports do occur. . IGLBP CPT Code Automation [facility] INSURANCE BILL Comment: This liquid based ThinPrep(R) pap test was screened with the use of an image guided system. Note [facility] INSURANCE BILL Comment: The HPV DNA reflex criteria were not met with this specimen result therefore, no HPV testing was performed. . Pathology/Cytolog y ENTIRE ENDOCERVIX / Unknown 08/31/2023 10:35 AM [facility] 09/01/2023 Narrative [facility] INSURANCE BILL - 09/03/2023 3:09 PM COMM[employer]ITY HE[employer] Source.............Cervix No. of containers..01 ThinPrep Vial Resulting Agency Comment Lab Testing performed at: [facility] [facility] [id number] Sam Cui MD LAB - PATHOLOGY/CYTOLOGY ORDERAB LES Final Result [facility] INSURANCE BILL [address] [place] [address] from Last 3 Months or Most Recently Relevant to Health Maintenance Insurance MEDICAID [employer] Care Teams Drywall Metal Stud Worker Relationship Specialty Start Date End Date Kassy Jay MD [address] [place] [phone] PCP - General Family Medicine 06/15/23
[2025-07-29 16:07] VITALS: BP 114/75; PULSE 82; RESP 18; TEMP 36.4; O2SAT 99
--- NOTE | 2025-07-29 16:36 | ED.SEIZURE ---
HPI - Seizure General Chief Complaint: Seizure Stated Complaint: seizure Time Seen by Provider: 07/29/25 16:35 Source: patient Mode of arrival: ambulatory Limitations: no limitations History of Present Illness HPI Narrative: 25 YEARS OLD WHITE FEMALE WITH HISTORY OF PSEUDO SEIZURE LAST 1 WAS 1 MONTH AGO CURRENTLY ON ATIVAN 2 MG T.I.D. PATIENT IS TELLING ME THAT SHE HAD TO SEIZURE TODAY AT SCHOOL WITNESSED BY COLLEAGUE. PATIENT CAME ALONE, NO SIGNIFICANT OTHER'S OR FRIENDS AT THE BEDSIDE AT THIS TIME. PATIENT REPORT THIS SEIZURE TODAY IS DIFFERENT THAN HER JAZZMINE THE SEIZURE BECAUSE THE POST ICTAL DURATION TODAY SHORTER THAN NORMAL. SHE DENIES BITING HER TONGUE OR URINE INCONTINENCE. PATIENT MAIN COMPLAINT AT THIS TIME IS NECK PAIN. PATIENT DENIES SEXUAL ACTIVITY, DRINKING OR SMOKING OR USING DRUGS PATIENT DENIED RUNNING OUT OF ATIVAN. BEEN USING IT EVERY DAY ON TIME. MD complaint: seizure Related Data Home Medications ?Medication ?Instructions ?Recorded ?Confirmed ?Last Taken ?Type benztropine 1 mg tablet 1 mg PO BID 06/22/25 07/18/25 07/18/25 History cariprazine 6 mg capsule (Vraylar) 6 mg PO DAILY 06/22/25 07/18/25 07/18/25 History famotidine 20 mg tablet (Pepcid) 20 mg PO BID 06/22/25 07/18/25 07/18/25 History fluoxetine 20 mg capsule 20 mg PO DAILY 06/22/25 07/18/25 07/18/25 History fluoxetine 40 mg capsule 40 mg PO DAILY 06/22/25 07/18/25 07/18/25 History lorazepam 2 mg tablet 2 mg PO TID 06/22/25 07/18/25 07/18/25 History methylphenidate HCl 18 mg 18 mg PO ONCE 06/22/25 07/18/25 07/18/25 History tablet,extended release 24 hr (Concerta) methylphenidate HCl 5 mg tablet 5 mg PO BID 06/22/25 07/18/25 07/18/25 History (Ritalin) thiamine HCl (vitamin B1) 250 mg 250 mg PO DAILY 06/22/25 07/18/25 07/18/25 History tablet (Vitamin B-1) trazodone 100 mg tablet 200 mg PO HS 06/22/25 07/18/25 07/17/25 History Allergies Allergy/AdvReac Type Severity Reaction Status Date / Time amoxicillin Allergy Severe Anaphylaxis Verified 07/18/25 10:09 [facility] Past Medical History Medical History Anxiety GERD (gastroesophageal reflux disease) Bipolar disorder Exam Narrative: GENERAL APPEARANCE: WELL-DEVELOPED, WELL-NOURISHED SKIN: NORMAL COLOR HEAD: NORMOCEPHALIC, NONTRAUMATIC EYES: CLEAR CONJUNCTIVA ENT: OROPHARYNX NORMAL, EARS NORMAL, NOSE NORMAL NECK: DIFFUSE POSTERIOR, SLIGHT LIMITED RANGE OF MOTION, C-COLLAR ON CHEST AND RESPIRATORY: AIRWAY PATENT, NO RESPIRATORY DISTRESS, NO ACCESSORY MUSCLE USE HEART: REGULAR RATE/RHYTHM ABDOMEN: SOFT, NONTENDER, NO ORGANOMEGALY, QUIET BOWEL SOUNDS VASCULAR: NORMAL PERIPHERAL PULSES, NORMAL CAPILLARY REFILL. MUSCULOSKELETAL: NORMAL RANGE OF MOTION, NONTENDER BACK NEUROLOGIC: ALERT AND ORIENTED ?3, LOG PREPARER IS NORMAL TESTED, NO GROSS MOTOR DEFICIT Course Vital Signs Vital signs: Vital Signs Temperature 36.4 C 07/29/25 16:07 Pulse Rate 82 07/29/25 16:07 Respiratory Rate 18 07/29/25 16:07 Blood Pressure 114/75 07/29/25 16:07 Pulse Oximetry 99 07/29/25 16:07 Temperature 36.4 C 07/29/25 16:07 Pulse Rate 61 07/29/25 18:25 Respiratory Rate 19 07/29/25 18:25 Blood Pressure 110/70 07/29/25 18:25 Pulse Oximetry 100 07/29/25 18:25 Oxygen Delivery Room Air 07/29/25 16:17 MDM - Seizure MDM Narrative Medical decision making narrative: PATIENT IS TELLING ME THAT SHE HAD SEIZURE X2 PRIOR TO ARRIVAL WITH SHORTER PERIODS OF POSTICTAL COMPARED TO HER REGULAR JAZZMINE THE SEIZURE, HISTORY OF PSEUDO-SEIZURE CURRENTLY ON ATIVAN 2 MG T.I.D. VITAL SIGNS ARE STABLE PHYSICAL EXAMINATION SHOWING C-COLLAR ON, TENDERNESS OF THE NECK POSTERIORLY OTHERWISE WITHIN NORMAL LIMIT DIFFERENTIAL DIAGNOSIS INCLUDES WITH SEIZURE, STRESS, ANXIETY, DEPRESSION, NECK SPRAIN/STRAIN BLOOD WORKUP TODAY INCLUDES CBC, CMP SHOWED NO SIGNIFICANT ABNORMALITIES CT HEAD WITHOUT CONTRAST AND CT CERVICAL SPINE WITHOUT CONTRAST SHOWED NO SIGNIFICANT ABNORMALITY CHEST X-RAY SHOWED NO SIGNIFICANT ABNORMALITY DIAGNOSIS: SEIZURE WORKUP TODAY SHOWED NO SIGNIFICANT ABNORMALITY TO EXPLAIN PATIENT CONDITION. PSEUDO SEIZURE IS MY CONCERN. PATIENT TO FOLLOW-UP WITH HER NEUROLOGIST SOON POSSIBLE. THE PT WAS DISCHARGED TO HOME.THE PT,S CONDITION UPON DISCHARGE WAS FAIR,EDUCATION WAS PROVIDED TO THE PT IN REFERENCE TO THE FINAL IMPRESSION,DISCHARGE STUDY RESULTS,TREATMENT,PROGNOSIS AND NEED FOR FOLLOW UP . Differential Diagnosis Differential diagnosis: Likely other ( ABOVE) Medical Records Attestation: I reviewed the patient's medical records. Lab Data Attestation: I reviewed the patient's lab results. 07/29/25 17:30 07/29/25 17:30 Labs: Lab Results 07/29/25 Range/Units 17:30 WBC 8.9 (4.5-10.0) K/mm3 RBC 4.65 (4.2-5.4) M/mm3 Hgb 13.4 (12.0-15.0) g/dL Hct 40.1 (37.0-47.0) % MCV 86.2 (80-100) fl MCH 28.8 (26-34) pg MCHC 33.4 (32-36) g/dl RDW 11.9 (11.5-14.5) % Plt Count 256 (150-375) k/mm3 MPV 9.4 (7.4-10.4) fl Immature Gran % (Auto) 0.2 (0-0.5) % Neut % (Auto) 58.6 (45.5-73.1) % Lymph % (Auto) 32.1 (18.3-44.2) % [place] % (Auto) 4.7 (2.6-8.5) % Eos % (Auto) 4.1 (0-4.4) % Baso % (Auto) 0.3 (0.2-1.2) % Lymph # (Auto) 2.87 (0.9-3.2) K/mm3 [place] # (Auto) 0.4 (0.1-0.6) K/mm3 Eos # (Auto) 0.4 H (0-0.3) K/mm3 Baso # (Auto) 0.0 (0.0-0.1) K/mm3 Abs Immat Gran (auto) 0.02 (0.00-0.031) K/mm3 Absolute Neuts (auto) 5.2 (1.3-6.7) K/mm3 Absolute Nucleated RBC 0.000 (0.0-0.012) K/mm3 Nucleated RBC % 0.0 (0.0-0.2) % Sodium 135 L (137-145) mmol/L Potassium 3.8 (3.4-5.0) mmol/L Chloride 101 (98-107) mmol/L Carbon Dioxide 26 (22-30) mmol/L Anion Gap 8 (4-12) mmol/L BUN 25 H (7-17) mg/dL Creatinine 0.57 L (0.7-1.0) mg/dL Estim Creat Clear Calc Not Reportable Estimated GFR > 60 (59 - ) Glucose 85 (65-110) mg/dL Calcium 9.4 (8.4-10.2) mg/dL Total Bilirubin 0.3 (0.2-1.3) mg/dL AST 37 H (14-36) U/L ALT 18 (6-35) U/L Alkaline Phosphatase 56 (38-126) U/L Total Creatine Kinase 51 (30-135) U/L Total Protein 7.6 (6.3-8.2) g/dL Albumin 4.5 (3.5-5.1) g/dL Imaging Data Radiologist's impression: Impressions Head CT 07/29/25 17:33 Impression: 1.No acute intracranial abnormality. Chest X-Ray 07/29/25 17:41 Impression: No acute cardiopulmonary abnormality. Cervical Spine CT 07/29/25 17:45 Impression: No acute abnormality. Critical Care Time Critical Care Time Critical Care Time: No Discharge Plan Discharge Clinical Impression: Recurrent seizures Patient Disposition: Home Condition: Improved Instructions: Recurrent Seizures in Adults (ED) Patient Language: Indonesian Prescriptions: No Action benztropine 1 mg tablet 1 mg PO BID methylphenidate HCl [Concerta] 18 mg tablet extended release 24hr 18 mg PO ONCE famotidine [Pepcid] 20 mg tablet 20 mg PO BID fluoxetine 40 mg capsule 40 mg PO DAILY lorazepam 2 mg tablet 2 mg PO TID fluoxetine 20 mg capsule 20 mg PO DAILY methylphenidate HCl [Ritalin] 5 mg tablet 5 mg PO BID trazodone 100 mg tablet 200 mg PO HS thiamine HCl (vitamin B1) [Vitamin B-1] 250 mg tablet 250 mg PO DAILY Vraylar 6 mg capsule 6 mg PO DAILY Follow-up/Referrals: UNKNOWN,DOCTOR [Primary Care Provider]
[2025-07-29 17:36] LABS: Hematocrit 40.1 % (37.0-47.0); Hemoglobin 13.4 g/dL (12.0-15.0); Immature Granulocyte Percent A 0.2 % (0-0.5); Lymphocytes Absolute Auto 2.87 K/mm3 (0.9-3.2); Mean Corpuscular HGB Conc 33.4 g/dl (32-36); Mean Corpuscular Hemoglobin 28.8 pg (26-34); Mean Corpuscular Volume 86.2 fl (80-100); Nucleated Red Blood Cells Absolute Auto 0.000 K/mm3 (0.0-0.012); Nucleated Red Blood Cells Perc 0.0 % (0.0-0.2); Platelet Count Result 256 k/mm3 (150-375); Red Blood Count 4.65 M/mm3 (4.2-5.4); White Blood Count 8.9 K/mm3 (4.5-10.0)
[2025-07-29 17:49] LABS: Alanine Aminotransferase 18 U/L (6-35); Albumin Level 4.5 g/dL (3.5-5.1); Alkaline Phosphatase 56 U/L (38-126); Anion Gap 8 mmol/L (4-12); Aspartate Amino Transferase 37 U/L (14-36); Bilirubin,Total 0.3 mg/dL (0.2-1.3); Blood Urea Nitrogen 25 mg/dL (7-17); Calcium 9.4 mg/dL (8.4-10.2); Carbon Dioxide 26 mmol/L (22-30); Chloride 101 mmol/L (98-107); Creatine Kinase 51 U/L (30-135); Estimated Glomerular Filt Rate > 60; Glucose 85 mg/dL (65-110); Potassium 3.8 mmol/L (3.4-5.0); Sodium 135 mmol/L (137-145); Total Protein 7.6 g/dL (6.3-8.2)
[2025-07-29 18:25] VITALS: BP 110/70; PULSE 61; RESP 19; O2SAT 100
== END 2025-07-29 19:10 | disposition home or self-care (01) ==
PROVIDERS: Emergency Provider Emergency Medicine
DX: R56.9 Unspecified convulsions (principal); K21.9 Gastro-esophageal reflux disease without esophagitis; F31.9 Bipolar disorder, unspecified; F41.9 Anxiety disorder, unspecified
CPT/HCPCS: 36415; 70450; 71045; 72125; 80053; 82550; 85025; 99284

== ENCOUNTER 2025-08-02 18:43 | Emergency (ER) | payer OTHER, MEDICAID, SELFPAY ==
--- OUTSIDE RECORDS SUMMARY | 2024-05-20 12:58 | XMS_ITS | Continuity of Care Document ---
Author Organization [facility] Address [address] [place] [address] Phone Care Team Providers Care Water Inspector Name Role Phone Ruddy Mera MD Unavailable Unavailable Advance Directives Directive Yes / No Effective Date File Name No Information Encounters Encounter Description Practice Location Reason(s) For Visit Diagnoses Date Provider Providers Copied on Encounter [facility], [address], [place], [place], [id number], [place] tel:[phone] [facility] No Information Samaria Fox. [address], [address], [place], [place], [id number] , [place]. tel: [phone] Family History Family Member Type Diagnosis Age At Onset Mother Problem (finding) Asthma Payers Payer name Insurance type Covered republican ID Authoriza tion(s) No Information Social History Type Description Quantity Date Captured Comments Alcohol Use Details Unknown Caffeine Use Details Unknown Tobacco Use Status Smoking Status Never smoker Non-Smoking Tobacco Use Details : No Details Available : No Details Available Sex Female Gender Identity Chief Complaint And Reason For Visit No Information Reason For Referral Reason For Referral No Information History Of Present Illness Encounter Date Complaint History Of Prese nt Illness No Information Functional Status Date Functional Assessmen t No Information Instructions Date Instruction Additional Infor mation No Information Assessments Type Assessment Date No Information Patient Care Teams Name Effective Dates (start - stop) Status Members No Information
--- OUTSIDE RECORDS SUMMARY | 2024-05-20 12:58 | XMS_ITS | Continuity of Care Document ---
Author Organization [facility] Address [address] [place] [address] Phone Care Team Providers Care Pets Salesperson Name Role Phone Ruddy Mera MD Unavailable Unavailable Advance Directives Directive Yes / No Effective Date File Name No Information Encounters Encounter Description Practice Location Reason(s) For Visit Diagnoses Date Provider Providers Copied on Encounter [facility], [address], [place], [place], [id number], [place] tel:[phone] [facility] No Information Samaria Fox. [address], [facility] [address], [place], [place], [id number] , [place]. tel: [phone] Family History Family Member Type Diagnosis Age At Onset Mother Problem (finding) Asthma Payers Payer name Insurance type Covered libertarian ID Authoriza tion(s) No Information Social History [...]
--- OUTSIDE RECORDS SUMMARY | 2025-02-21 04:30 | XMS_ITS | Continuity of Care Document ---
Author Organization [facility] Address [address] [place] [address] Phone Care Team Providers Care Chimney Repairer Name Role Phone Annita Pena DMD Unavailable Unavailable Allergies, Adverse Reactions, Alerts Substance Reaction Status Criticality amoxicillin DifficultyBreathing, Hives Active N o Information Medications Medication Instructions Dosage Effective Dates (start - stop) Status Comments Sodium Fluoride 5000 Plus 1.1 % dental cream Place pea sized amount on toothbrush and brush for 2 minutes at night; spit and do not rinse. - Active Procedures Procedure Date Periapical first film Periapical ea add Periapical ea add Periapical ea add Dental bitewings four films Periodic oral evaluation Caries risk assessment w/ low risk Sealant Not Recommended Dental prophylaxis adult ages 13 & older Dental prophylaxis adult ages 13 & older Dental panoramic film Comprehensive oral evaluation Caries risk assessment w/ low risk Jul- Sealant Not Recommended Periapical first film Periapical ea add Periapical ea add Periapical ea add Periapical ea add Do Not Charge Periapical Xrays Dental bitewings four films Do Not Charge Periapical Xrays 24 Advance Directives Directive Yes / No Effective Date File Name No Information Encounters Encounter Description Practice Location Reason(s) For Visit Diagnoses Date Provider Providers Copied on Encounter [facility], [address] [place] [address], [id number], tel:[phone] DARYL Jones Encounter for screening for dental disordersEncounter for dental examination and cleaning without abnormal findingsBody mass index [BMI] 32.0-32.9, adult 5 [place] Annita. [address], [place], [address], [place]. tel:[phone] Referring Provider: Mary Cheek [facility], [address], [place], [address]. [facility], [address] [place] [address], [id number], tel:[phone] DARYL Avendano Jones Deposits [accretions] on teeth 4 [place] Marie. [address] [facility], [place], [address], [place]. tel:[phone] Referring Provider: Billie Mayen [facility], [address], [place], [address]. [facility], [address] [place] [address], [id number], tel:[phone] DARYL Anderson Encounter for dental examination and cleaning without abnormal findings 4 [place] MIKAYLA Ronna. [address], [place], [address], [place]. tel:[phone] Family History Family Member Type Diagnosis Age At Onset No Information Payers Payer name Insurance type Covered constitution party ID Authoriza tion(s) [employer] [place] [id number] Social History Type Description Quantity Date Captured Comments Alcohol Use Details Unknown Caffeine Use Details Unknown Tobacco Use Status No Information Smoking Status No Information Sex Female Sexual Orientation Straight or heterosexual Gender Identity Female Vital Signs Date / Time: Height Weight BMI Pulse Rate Blood Pressure Temperature Respiratory Rate Body Surface Area Head Circumference Head Circ. Percentile Wt./Xavier. Percentile BMI percentile Pulse Ox Inhaled Ox 10:28 AM 61.00 in 78.925 kg (174.00 lbs) 32.8 8 kg/m eter (2) 87 /min 123/90 mm[Hg] Chief Complaint And Reason For Visit No Information Reason For Referral Reason For Referral No Information Plan Of Treatment Date Type Action Status Goal MOSBIRT Screening. Due on due Goal BMI Adult Follow-Up. Due on due Goal Depression Follow-Up. Due on due Goal Tobacco screening. Due on due Goal PAP. Due on due Goal Depression screening. Due on due Goal Tdap. Due on due Goal Hepatitis C screening. Due o n due Goal Tobacco Cessation. Due on due Goal BMI. Due on due Goal HIV Screen. Due on due Goal Dietary manageme nt education, guidance, and counseling completed Appointment Isaura Francis BOOKED Appointment Isaura Francis BOOKED History Of Present Illness Encounter Date Complaint History Of Prese nt Illness No Information Functional Status Date Functional Assessmen t No Information Instructions Date Instruction Additional Infor mation Giving encouragement to exercise Related to Body mass index [BMI] 32.0-32.9, adult Dietary management e ducation, guidance, and counseling Related to Body mass index [BMI] 32.0-32.9, adult Assessments Type Assessment Date assessment Encounter for screening for dent al disorders assessment Encounter for dental examination and cleaning without abnormal findings assessment Body mass index [BMI] 32.0-32.9, adult Patient Care Teams Name Effective Dates (start - stop) Status Members No Information
--- OUTSIDE RECORDS SUMMARY | 2025-02-21 04:30 | XMS_ITS | Continuity of Care Document ---
Author Organization [facility] Address [address] [place] [address] Phone Care Team Providers Care Semi Driver Name Role Phone Annita Pena DMD Unavailable [...] Diagnoses Date Provider Providers Copied on Encounter [facility], [address] [place] [address], [id number], tel:[phone] DARYL Jones Encounter for screening for dental disordersEncounter for dental examination and cleaning without abnormal findingsBody mass index [BMI] 32.0-32.9, adult 5 [place] Annita. [address], [place], [address], [place]. tel:[phone] Referring Provider: Mary Cheek [facility], [address], [place], [address]. [facility], [address] [place] [address], [id number], tel:[phone] DARYL Avendano Jones Deposits [accretions] on teeth 4 [place] Marie. [address] [facility], [place], [address], [place]. tel:[phone] Referring Provider: Billie Mayen [facility], [address], [place], [address]. [facility], [address] [place] [address], [id number], tel:[phone] DARYL Anderson Encounter for dental examination and cleaning without abnormal findings 4 [place] MIKAYLA Ronna. [address], [place], [address], [place]. tel:[phone] Family History Family Member Type Diagnosis Age At Onset No Information Payers Payer name Insurance type Covered republican ID Authoriza tion(s) [employer] Adult [employer] [place] [id number] Social History Type Description Quantity Date Captured [...] BMI Adult Follow-Up. Due on due Goal HIV Screen. Due on due Goal Depression Follow-Up. Due on due Goal Tobacco screening. Due on due Goal PAP. Due on due Goal Depression screening. Due on due Goal Tdap. Due on due Goal Hepatitis C screening. Due o n due Goal Tobacco Cessation. Due on due Goal BMI. Due on due Goal Dietary manageme nt [...]
--- NOTE | ~2025-08-02 | CT_ITS ---
CT brain wo con HISTORY:head injury COMPARISON: None. TECHNIQUE: Axial images were obtained of the head without intravenous contrast. FINDINGS: No acute intracranial hemorrhage, mass effect or midline shift. No extra-axial fluid collections. The calvarium is intact. Visualized paranasal sinuses and mastoid air cells are clear. IMPRESSION: No acute intracranial hemorrhage or extra axial fluid collections. All CT scans at this facility are performed using low dose modulation techniques as appropriate to perform exam including the following: automated exposure control; use of iterative reconstruction technique; adjustment of the mA and/or kV according to patient size (this includes techniques or standardized protocols for targeted exams where dose is matched to indication/reason for exam). Reviewed, dictated and finalized at location S. S WASHER IMPRESSION: No acute intracranial hemorrhage or extra axial fluid collections. All CT scans at this facility are performed using low dose modulation techniqu es as appropriate to perform exam including the following: automated exposure c ontrol; use of iterative reconstruction technique; adjustment of the mA and/or kV according to patient size (this includes techniques or standardized protocol s for targeted exams where dose is matched to indication/reason for exam).
--- NOTE | ~2025-08-02 | CT_ITS ---
CT cervical spine wo con HISTORY: trauma COMPARISON: None TECHNIQUE: Axial images of the cervical spine were obtained. Multiplanar reconstruction in the coronal, sagittal and axial reformats to evaluate for cervical fracture. FINDINGS: The images demonstrate no acute fracture or paravertebral soft tissue swelling. Degenerative changes with disc space narrowing and endplate sclerosis C5-C6. No severe central canal or foraminal stenosis. The visualized aspect of the upper lungs are clear. IMPRESSION: No acute fracture or subluxation. All CT scans at this facility are performed using low dose modulation techniques as appropriate to perform exam including the following: automated exposure control; adjustment of the mA and/or kV according to patient size (this includes techniques or standardized protocols for targeted exams where does is matched to indication/reason for exam; i.e. extremities or head); use of iterative reconstruction technique). Reviewed, dictated and finalized at location S. CREW OFFICER IMPRESSION: No acute fracture or subluxation. All CT scans at this facility are performed using low dose modulation techniqu es as appropriate to perform exam including the following: automated exposure c ontrol; adjustment of the mA and/or kV according to patient size (this includes techniques or standardized protocols for targeted exams where does is matched to indication/reason for exam; i.e. extremities or head); use of iterative ajit nstruction technique).
--- OUTSIDE RECORDS SUMMARY | 2025-08-02 18:45 | XMS_ITS | Encounter Summary ---
Author Organization [facility] Address [address] [place] [address] Care Team Providers Care Shuttle Route Vehicle Operator Name Role Phone Kassy Jay MD Primary Care Provider [phone] Encounter Details Date Type Department Care Team (Late Contact Info) Description 08/01/2003 Outpatient Historical [facility] Pediatrics - [facility] [id number] [place] [address] [place] [address] [place] [address] Social History Tobacco Use Types Packs/Day Years Used Date Smoking Tobacco: Never Assessed Comments Unknown Sex and Gender Information Value Date Recorded Sex Assigned at Not on file Legal Sex Female 4:02 AM AZURE DEVELOPER Gender Identity Not on file Sexual Orientation Not on file documented as of this encounter Plan of Treatment Upcoming Encounters Date Type Department Care Team (Late Contact Info) Description 08/15/2025 1:30 PM AZURE DEVELOPER Office Visit [facility] Primary Care - Kirby Herrmann [address] [place] [phone] Kassy Jay MD [address] [place] [phone] 09/25/2025 8:30 AM AZURE DEVELOPER Video Visit [facility] Adult Psychiatry Varinder [address] [address] [address] [place] [phone] Argelia Law NP [address] [address] [address] [place] [address] documented as of this encounter Visit Diagnoses Not on filedocumented in this encounter Additional Health Concerns Infection Onset Date Last Indicated Resolved Time R/O COVID-19 06/02/2021 06/03/2021 06/03/2021 7:34 PM CDT R/O COVID-19 12/22/2022 12/22/2022 12/22/2022 12:2 5 PM CDT R/O COVID-19 09/07/2023 09/07/2023 09/07/2023 9:52 PM AZURE DEVELOPER documented as of this encounter Care Teams Shuttle Route Vehicle Operator Relationship Specialty Start Date End Date Kassy Jay MD [address] [place] [phone] PCP - General Family Practice 12/04/22 documented as of this encounter
--- OUTSIDE RECORDS SUMMARY | 2025-08-02 18:45 | XMS_ITS | Encounter Summary ---
Author Organization [facility] Address [address] [place] [address] Care Team Providers Care Molder Meat Name Role Phone Kassy Jay MD Primary Care Provider [phone] Encounter Details Date Type Department Care Team (Latest Contact Info) Description 03/27/2004 Outpatient Historical [facility] Gustavo Sims ASTHMA UNSPECIFIED (Primary Dx) Social History Tobacco Use Types Packs/Day Years Used Date Smoking Tobacco: Never Assessed Comments Unknown Sex and Gender Information Value Date Recorded Sex Assigned at Not on file Legal Sex Female 4:02 AM INSPECTOR BALANCE WHEEL MOTION Gender Identity Not on file Sexual Orientation Not on file documented as of this encounter Plan of Treatment Upcoming Encounters Date Type Department Care Team (Late st Contact Info) Description 08/15/2025 1:30 PM INSPECTOR BALANCE WHEEL MOTION Office Visit [facility] Primary Care - [place] [address] [place] [phone] Kassy Jay MD [address] [place] [phone] 09/25/2025 8:30 AM INSPECTOR BALANCE WHEEL MOTION Video Visit [facility] Adult Psychiatry [place] [address] [address] [place] [phone] Argelia Law NP [address] [address] [place] [address] documented as of this encounter Visit Diagnoses Diagnosis Unspecified asthma(493.90)- Primary Unspecified asthma documented in this encounter Additional Health Concerns Infection Onset Date Last Indicated Resolved Time R/O COVID-19 06/02/2021 06/03/2021 06/03/2021 7:34 PM CDT R/O COVID-19 12/22/2022 12/22/2022 12/22/2022 12:2 5 PM CDT R/O COVID-19 09/07/2023 09/07/2023 09/07/2023 9:52 PM INSPECTOR BALANCE WHEEL MOTION documented as of this encounter Care Teams Molder Meat Relationship Specialty Start Date End Date Kassy Jay MD [address] [place] [phone] PCP - General Family Practice 12/04/22 documented as of this encounter
--- OUTSIDE RECORDS SUMMARY | 2025-08-02 18:45 | XMS_ITS | Encounter Summary ---
Author Organization [facility] Address [address] [place] [address] Care Team Providers Care Community Relations Officer Name Role Phone Kassy Jay MD Primary Care Provider [phone] Encounter Details Date Type Department Care Team (Late Contact Info) Description 02/10/2003 Outpatient Historical [facility] Pediatrics - [facility] [address] [place] [address] [place] [address] [place] [address] Social History Tobacco Use Types Packs/Day Years Used Date Smoking Tobacco: Never Assessed Comments Unknown Sex and Gender Information Value Date Recorded Sex Assigned at Not on file Legal Sex Female 4:02 AM LUBRICATING SPECIALIST Gender Identity Not on file Sexual Orientation Not on file documented as of this encounter Plan of Treatment Upcoming Encounters Date Type Department Care Team (Late Contact Info) Description 08/15/2025 1:30 PM LUBRICATING SPECIALIST Office Visit [facility] Primary Care - Kirby Herrmann [address] [place] [phone] Kassy Jay MD [address] [place] [phone] 09/25/2025 8:30 AM LUBRICATING SPECIALIST Video Visit [facility] Adult Psychiatry [place] [address] [address] [place] [phone] Argelia Law NP [address] [address] [place] [address] documented as of this encounter Visit Diagnoses Not on filedocumented in this encounter Additional Health Concerns Infection Onset Date Last Indicated Resolved Time R/O COVID-19 06/02/2021 06/03/2021 06/03/2021 7:34 PM CDT R/O COVID-19 12/22/2022 12/22/2022 12/22/2022 12:2 5 PM CDT R/O COVID-19 09/07/2023 09/07/2023 09/07/2023 9:52 PM LUBRICATING SPECIALIST documented as of this encounter Care Teams Community Relations Officer Relationship Specialty Start Date End Date Kassy Jay MD [address] [place] [address] [phone] PCP - General Family Practice 12/04/22 documented as of this encounter
--- OUTSIDE RECORDS SUMMARY | 2025-08-02 18:45 | XMS_ITS | Encounter Summary ---
Author Organization [facility] Address [address] [place] [address] Care Team Providers Care Tube And Manifold Builder Name Role Phone Kassy Jay MD Primary Care Provider [phone] Encounter Details Date Type Department Care Team (Late Contact Info) Description 03/27/2004 Outpatient Historical [facility] Childrens Respiratory and Sleep Medicine [address] [facility] [address] [address] Gustavo Sims Social History Tobacco Use Types Packs/Day Years Used Date Smoking Tobacco: Never Assessed Comments Unknown Sex and Gender Information Value Date Recorded Sex Assigned at Not on file Legal Sex Female 4:02 AM PRIMER WATERPROOFING MACHINE ADJUSTER Gender Identity Not on file Sexual Orientation Not on file documented as of this encounter Plan of Treatment Upcoming Encounters Date Type Department Care Team (Late Contact Info) Description 08/15/2025 1:30 PM PRIMER WATERPROOFING MACHINE ADJUSTER Office Visit [facility] Primary [place] [phone] Kassy Jay MD [address] [place] [phone] 09/25/2025 8:30 AM PRIMER WATERPROOFING MACHINE ADJUSTER Video Visit [facility] Adult Psychiatry [address] [address] [address] [phone] [place], Argelia Lopez NP [address] [address] [place] [address] documented as of this encounter Visit Diagnoses Not on filedocumented in this encounter Additional Health Concerns Infection Onset Date Last Indicated Resolved Time R/O COVID-19 06/02/2021 06/03/2021 06/03/2021 7:34 PM CDT R/O COVID-19 12/22/2022 12/22/2022 12/22/2022 12:2 5 PM CDT R/O COVID-19 09/07/2023 09/07/2023 09/07/2023 9:52 PM PRIMER WATERPROOFING MACHINE ADJUSTER documented as of this encounter Care Teams Tube And Manifold Builder Relationship Specialty Start Date End Date Kassy Jay MD [address] [facility] [place] [phone] PCP - General Family Practice 12/04/22 documented as of this encounter
--- OUTSIDE RECORDS SUMMARY | 2025-08-02 18:45 | XMS_ITS | Encounter Summary ---
Author Organization [facility] Address [address] [place] [address] Care Team Providers Care Airfreight Loading Supervisor Name Role Phone Kassy Jay MD Primary Care Provider [phone] Encounter Details Date Type Department Care Team (Late Contact Info) Description 12/15/2003 Outpatient Historical [facility] Childrens Respiratory and Sleep Medicine [address] [facility] [address] [address] Gustavo Sims Social History Tobacco Use Types Packs/Day Years Used Date Smoking Tobacco: Never Assessed Comments Unknown Sex and Gender Information Value Date Recorded Sex Assigned at Not on file Legal Sex Female 4:02 AM MANAGER COLLEGE Gender Identity Not on file Sexual Orientation Not on file documented as of this encounter Plan of Treatment Upcoming Encounters Date Type Department Care Team (Late Contact Info) Description 08/15/2025 1:30 PM MANAGER COLLEGE Office Visit [facility] [place] [phone] Kassy Jay MD [address] [place] [address] 09/25/2025 8:30 AM MANAGER COLLEGE Video Visit [facility] Adult Psychiatry [address] [address] [address] [phone] [place], Argelia Lopez NP [address] [address] [place] [address] documented as of this encounter Visit Diagnoses Not on filedocumented in this encounter Additional Health Concerns Infection Onset Date Last Indicated Resolved Time R/O COVID-19 06/02/2021 06/03/2021 06/03/2021 7:34 PM CDT R/O COVID-19 12/22/2022 12/22/2022 12/22/2022 12:2 5 PM CDT R/O COVID-19 09/07/2023 09/07/2023 09/07/2023 9:52 PM MANAGER COLLEGE documented as of this encounter Care Teams Airfreight Loading Supervisor Relationship Specialty Start Date End Date Kassy Jay MD [address] [facility] [place] [phone] PCP - General Family Practice 12/04/22 documented as of this encounter
--- OUTSIDE RECORDS SUMMARY | 2025-08-02 18:45 | XMS_ITS | Encounter Summary ---
Author Organization [facility] Address [address] [place] [address] Care Team Providers Care Careers Adviser Name Role Phone Kassy Jay MD Primary Care Provider [phone] Encounter Details Date Type Department Care Team (Late Contact Info) Description 02/13/2005 Outpatient Historical [facility] Childrens Respiratory and Sleep Medicine [address] [facility] [address] [address] Gustavo Sims Social History Tobacco Use Types Packs/Day Years Used Date Smoking Tobacco: Never Assessed Comments Unknown Sex and Gender Information Value Date Recorded Sex Assigned at Not on file Legal Sex Female 4:02 AM TALEND DEVELOPER Gender Identity Not on file Sexual Orientation Not on file documented as of this encounter Plan of Treatment Upcoming Encounters Date Type Department Care Team (Late Contact Info) Description 08/15/2025 1:30 PM TALEND DEVELOPER Office Visit [facility] [place] [phone] Kassy Jay MD [address] [place] [address] 09/25/2025 8:30 AM TALEND DEVELOPER Video Visit [facility] Adult Psychiatry [address] [place] [address] [place] [phone] [place], Argelia Lopez NP [address] [address] [place] [address] documented as of this encounter Visit Diagnoses Not on filedocumented in this encounter Additional Health Concerns Infection Onset Date Last Indicated Resolved Time R/O COVID-19 06/02/2021 06/03/2021 06/03/2021 7:34 PM CDT R/O COVID-19 12/22/2022 12/22/2022 12/22/2022 12:2 5 PM CDT R/O COVID-19 09/07/2023 09/07/2023 09/07/2023 9:52 PM TALEND DEVELOPER documented as of this encounter Care Teams Careers Adviser Relationship Specialty Start Date End Date Kassy Jay MD [address] [facility] [place] [address] PCP - General Family Practice 12/04/22 documented as of this encounter
--- OUTSIDE RECORDS SUMMARY | 2025-08-02 18:45 | XMS_ITS | Encounter Summary ---
Author Organization [facility] Address [address] [place] [address] Care Team Providers Care Backfiller Name Role Phone Kassy Jay MD Primary Care Provider [phone] Encounter Details Date Type Department Care Team (Latest Contact Info) Description 12/15/2003 Outpatient Historical [facility] Gustavo Sims ASTHMA UNSPECIFIED (Primary Dx) Social History Tobacco Use Types Packs/Day Years Used Date Smoking Tobacco: Never Assessed Comments Unknown Sex and Gender Information Value Date Recorded Sex Assigned at Not on file Legal Sex Female 4:02 AM NURSE AUDITOR Gender Identity Not on file Sexual Orientation Not on file documented as of this encounter Plan of Treatment Upcoming Encounters Date Type Department Care Team (Late st Contact Info) Description 08/15/2025 1:30 PM NURSE AUDITOR Office Visit [facility] Primary Care - Kirby Herrmann [address] [phone] Kassy Jay MD [address] [place] [address] [address] [phone] 09/25/2025 8:30 AM NURSE AUDITOR Video Visit [facility] Adult Psychiatry [place] [address] [address] [place] [phone] Argelia Law NP [address] [address] [place] [address] documented as of this encounter Visit Diagnoses Diagnosis Unspecified asthma(493.90)- Primary Unspecified asthma documented in this encounter Additional Health Concerns Infection Onset Date Last Indicated Resolved Time R/O COVID-19 06/02/2021 06/03/2021 06/03/2021 7:34 PM CDT R/O COVID-19 12/22/2022 12/22/2022 12/22/2022 12:2 5 PM CDT R/O COVID-19 09/07/2023 09/07/2023 09/07/2023 9:52 PM NURSE AUDITOR documented as of this encounter Care Teams Backfiller Relationship Specialty Start Date End Date Kassy Jay MD [address] [place] [address] [address] [phone] PCP - General Family Practice 12/04/22 documented as of this encounter
--- OUTSIDE RECORDS SUMMARY | 2025-08-02 18:45 | XMS_ITS | Encounter Summary ---
Author Organization [facility] Address [address] [place] [address] Care Team Providers Care Photographic Laboratory Supervisor Name Role Phone Kassy Jay MD Primary Care Provider [phone] Encounter Details Date Type Department Care Team (Late Contact Info) Description 06/07/2003 Outpatient Historical [facility] Childrens Respiratory and Sleep Medicine [address] [facility] [address] [address] Gustavo Sims Social History Tobacco Use Types Packs/Day Years Used Date Smoking Tobacco: Never Assessed Comments Unknown Sex and Gender Information Value Date Recorded Sex Assigned at Not on file Legal Sex Female 4:02 AM SHOP TAILOR Gender Identity Not on file Sexual Orientation Not on file documented as of this encounter Plan of Treatment Upcoming Encounters Date Type Department Care Team (Late Contact Info) Description 08/15/2025 1:30 PM SHOP TAILOR Office Visit [facility] Primary [place] [phone] Kassy Jay MD [address] [place] [address] 09/25/2025 8:30 AM SHOP TAILOR Video Visit [facility] Adult Psychiatry [place] [address] [place] [phone] [place], Argelia Lopez NP [address] [address] [place] [address] documented as of this encounter Visit Diagnoses Not on filedocumented in this encounter Additional Health Concerns Infection Onset Date Last Indicated Resolved Time R/O COVID-19 06/02/2021 06/03/2021 06/03/2021 7:34 PM CDT R/O COVID-19 12/22/2022 12/22/2022 12/22/2022 12:2 5 PM CDT R/O COVID-19 09/07/2023 09/07/2023 09/07/2023 9:52 PM SHOP TAILOR documented as of this encounter Care Teams Photographic Laboratory Supervisor Relationship Specialty Start Date End Date Kassy Jay MD [address] [facility] [place] [phone] PCP - General Family Practice 12/04/22 documented as of this encounter
--- OUTSIDE RECORDS SUMMARY | 2025-08-02 18:45 | XMS_ITS | Encounter Summary ---
Author Organization [facility] Address [address] [place] [address] Care Team Providers Care Grease Maker Name Role Phone Kassy Jay MD Primary Care Provider [phone] Encounter Details Date Type Department Care Team (Latest Contact Info) Description 10/09/2003 Outpatient Historical [facility] Gustavo Sims ASTHMA UNSPECIFIED (Primary Dx) Social History Tobacco Use Types Packs/Day Years Used Date Smoking Tobacco: Never Assessed Comments Unknown Sex and Gender Information Value Date Recorded Sex Assigned at Not on file Legal Sex Female 4:02 AM INSPECTOR ELECTROMECHANICAL Gender Identity Not on file Sexual Orientation Not on file documented as of this encounter Plan of Treatment Upcoming Encounters Date Type Department Care Team (Late st Contact Info) Description 08/15/2025 1:30 PM INSPECTOR ELECTROMECHANICAL Office Visit [facility] Primary Care - Kirby Herrmann [address] [place] [address] [address] [address] Kassy Jay MD [address] [phone] 09/25/2025 8:30 AM INSPECTOR ELECTROMECHANICAL Video Visit [facility] Adult Psychiatry [place] [address] [address] [place] [phone] Argelia Law NP [address] [address] [place] [address] documented as of this encounter Visit Diagnoses Diagnosis Unspecified asthma(493.90)- Primary Unspecified asthma documented in this encounter Additional Health Concerns Infection Onset Date Last Indicated Resolved Time R/O COVID-19 06/02/2021 06/03/2021 06/03/2021 7:34 PM CDT R/O COVID-19 12/22/2022 12/22/2022 12/22/2022 12:2 5 PM CDT R/O COVID-19 09/07/2023 09/07/2023 09/07/2023 9:52 PM INSPECTOR ELECTROMECHANICAL documented as of this encounter Care Teams Grease Maker Relationship Specialty Start Date End Date Kassy Jay MD [address] [place] [address] [phone] PCP - General Family Practice 12/04/22 documented as of this encounter
--- OUTSIDE RECORDS SUMMARY | 2025-08-02 18:45 | XMS_ITS | Encounter Summary ---
Author Organization [facility] Address [address] [place] [address] Care Team Providers Care Tree Farmer Name Role Phone Kassy Jay MD Primary Care Provider Encounter Details Date Type Department Care Team (Late Contact Info) Description 07/18/2004 Outpatient Historical [facility] Pediatrics - [facility] [address] [place] [address] [place] [address] [place] [address] Social History Tobacco Use Types Packs/Day Years Used Date Smoking Tobacco: Never Assessed Comments Unknown Sex and Gender Information Value Date Recorded Sex Assigned at Not on file Legal Sex Female 4:02 AM SENIOR IT BUSINESS ANALYST Gender Identity Not on file Sexual Orientation Not on file documented as of this encounter Plan of Treatment Upcoming Encounters Date Type Department Care Team (Late Contact Info) Description 08/15/2025 1:30 PM SENIOR IT BUSINESS ANALYST Office Visit [facility] Primary Care - Kirby Herrmann [address] [address] [address] [phone] Kassy Jay MD [address] [place] [address] [phone] 09/25/2025 8:30 AM SENIOR IT BUSINESS ANALYST Video Visit [facility] Adult Psychiatry [place] [address] [address] [place] [phone] Argelia Law NP [address] [address] [place] [address] documented as of this encounter Visit Diagnoses Not on filedocumented in this encounter Additional Health Concerns Infection Onset Date Last Indicated Resolved Time R/O COVID-19 06/02/2021 06/03/2021 06/03/2021 7:34 PM CDT R/O COVID-19 12/22/2022 12/22/2022 12/22/2022 12:2 5 PM CDT R/O COVID-19 09/07/2023 09/07/2023 09/07/2023 9:52 PM SENIOR IT BUSINESS ANALYST documented as of this encounter Care Teams Tree Farmer Relationship Specialty Start Date End Date Kassy Jay MD [address] [place] [address] [phone] PCP - General Family Practice 12/04/22 documented as of this encounter
--- OUTSIDE RECORDS SUMMARY | 2025-08-02 18:45 | XMS_ITS | Encounter Summary ---
Author Organization [facility] Address [address] [place] [address] Care Team Providers Care Food Production Supervisor Name Role Phone Kassy Jay MD Primary Care Provider [phone] Encounter Details Date Type Department Care Team (Late Contact Info) Description 10/09/2003 Outpatient Historical [facility] Childrens Respiratory and Sleep Medicine [address] [facility] [address] [address] Gustavo Sims Social History Tobacco Use Types Packs/Day Years Used Date Smoking Tobacco: Never Assessed Comments Unknown Sex and Gender Information Value Date Recorded Sex Assigned at Not on file Legal Sex Female 4:02 AM CORPORATE STRATEGIST Gender Identity Not on file Sexual Orientation Not on file documented as of this encounter Plan of Treatment Upcoming Encounters Date Type Department Care Team (Late Contact Info) Description 08/15/2025 1:30 PM CORPORATE STRATEGIST Office Visit [facility] Primary [place] [phone] Kassy Jay MD [address] [place] [phone] 09/25/2025 8:30 AM CORPORATE STRATEGIST Video Visit [facility] Adult Psychiatry [address] [address] [place] [phone] [place], Argelia Lopez NP [address] [address] [place] [address] documented as of this encounter Visit Diagnoses Not on filedocumented in this encounter Additional Health Concerns Infection Onset Date Last Indicated Resolved Time R/O COVID-19 06/02/2021 06/03/2021 06/03/2021 7:34 PM CDT R/O COVID-19 12/22/2022 12/22/2022 12/22/2022 12:2 5 PM CDT R/O COVID-19 09/07/2023 09/07/2023 09/07/2023 9:52 PM CORPORATE STRATEGIST documented as of this encounter Care Teams Food Production Supervisor Relationship Specialty Start Date End Date Kassy Jay MD [address] [facility] [place] [phone] PCP - General Family Practice 12/04/22 documented as of this encounter
--- OUTSIDE RECORDS SUMMARY | 2025-08-02 18:45 | XMS_ITS | Encounter Summary ---
Author Organization [facility] Address [address] [place] [address] Care Team Providers Care Aoc Director Intelligence Officer Name Role Phone Kassy Jay MD Primary Care Provider [phone] Encounter Details Date Type Department Care Team (Late Contact Info) Description 02/13/2005 Outpatient Historical [facility] Childrens Respiratory and Sleep Medicine [address] [facility] [address] [address] Gustavo Sims Social History Tobacco Use Types Packs/Day Years Used Date Smoking Tobacco: Never Assessed Comments Unknown Sex and Gender Information Value Date Recorded Sex Assigned at Not on file Legal Sex Female 4:02 AM INTERNAL RECRUITER Gender Identity Not on file Sexual Orientation Not on file documented as of this encounter Plan of Treatment Upcoming Encounters Date Type Department Care Team (Late Contact Info) Description 08/15/2025 1:30 PM INTERNAL RECRUITER Office Visit [facility] [place] [phone] Kassy aJy MD [address] [place] [phone] 09/25/2025 8:30 AM INTERNAL RECRUITER Video Visit [facility] Adult Psychiatry [place] [address] [place] [phone] [place], Argelia Lopez NP [address] [address] [place] [address] documented as of this encounter Visit Diagnoses Not on filedocumented in this encounter Additional Health Concerns Infection Onset Date Last Indicated Resolved Time R/O COVID-19 06/02/2021 06/03/2021 06/03/2021 7:34 PM CDT R/O COVID-19 12/22/2022 12/22/2022 12/22/2022 12:2 5 PM CDT R/O COVID-19 09/07/2023 09/07/2023 09/07/2023 9:52 PM INTERNAL RECRUITER documented as of this encounter Care Teams Aoc Director Intelligence Officer Relationship Specialty Start Date End Date Kassy Jay MD [address] [facility] [place] [address] PCP - General Family Practice 12/04/22 documented as of this encounter
--- OUTSIDE RECORDS SUMMARY | 2025-08-02 18:45 | XMS_ITS | Encounter Summary ---
Author Organization [facility] Address [address] [place] [address] Care Team Providers Care Manager State Name Role Phone Kassy Jay MD Primary Care Provider [phone] Encounter Details Date Type Department Care Team (Late Contact Info) Description 03/27/2004 Outpatient Historical [facility] Childrens Respiratory and Sleep Medicine [address] [facility] [facility] [address] Gustavo Sims Social History Tobacco Use Types Packs/Day Years Used Date Smoking Tobacco: Never Assessed Comments Unknown Sex and Gender Information Value Date Recorded Sex Assigned at Not on file Legal Sex Female 4:02 AM ASSESSMENT NURSE Gender Identity Not on file Sexual Orientation Not on file documented as of this encounter Plan of Treatment Upcoming Encounters Date Type Department Care Team (Late Contact Info) Description 08/15/2025 1:30 PM ASSESSMENT NURSE Office Visit [facility] [place] [phone] Kassy Jay MD [address] [place] [address] 09/25/2025 8:30 AM ASSESSMENT NURSE Video Visit [facility] Adult Psychiatry [address] [address] [place] [phone] [place], Argelia Lopez NP [address] [address] [place] [address] documented as of this encounter Visit Diagnoses Not on filedocumented in this encounter Additional Health Concerns Infection Onset Date Last Indicated Resolved Time R/O COVID-19 06/02/2021 06/03/2021 06/03/2021 7:34 PM CDT R/O COVID-19 12/22/2022 12/22/2022 12/22/2022 12:2 5 PM CDT R/O COVID-19 09/07/2023 09/07/2023 09/07/2023 9:52 PM ASSESSMENT NURSE documented as of this encounter Care Teams Manager State Relationship Specialty Start Date End Date Kassy Jay MD [address] [facility] [place] [address] PCP - General Family Practice 12/04/22 documented as of this encounter
--- OUTSIDE RECORDS SUMMARY | 2025-08-02 18:45 | XMS_ITS | Encounter Summary ---
Author Organization [facility] Address [address] [place] [address] Care Team Providers Care Aircraft Structural Fitter Name Role Phone Kassy Jay MD Primary Care Provider [phone] Encounter Details Date Type Department Care Team (Late Contact Info) Description 09/02/2004 Outpatient Historical [facility] - [facility] [address] [place] [address] [place] [address] [facility] [facility] [address] [place] [address] Social History Tobacco Use Types Packs/Day Years Used Date Smoking Tobacco: Never Assessed Comments Unknown Sex and Gender Information Value Date Recorded Sex Assigned at Not on file Legal Sex Female 4:02 AM MANAGER SUPPLY CHAIN PLANNING Gender Identity Not on file Sexual Orientation Not on file documented as of this encounter Plan of Treatment Upcoming Encounters Date Type Department Care Team (Late Contact Info) Description 08/15/2025 1:30 PM MANAGER SUPPLY CHAIN PLANNING Office Visit [facility] Primary Care - Kirby Herr[place] [address] [place] [phone] Kassy Jay MD [address] [place] [phone] 09/25/2025 8:30 AM MANAGER SUPPLY CHAIN PLANNING Video Visit [facility] Adult Psychiatry [place] [address] [address] [place] [address] Argelia Law NP [address] [address] [place] [address] documented as of this encounter Visit Diagnoses Not on filedocumented in this encounter Additional Health Concerns Infection Onset Date Last Indicated Resolved Time R/O COVID-19 06/02/2021 06/03/2021 06/03/2021 7:34 PM CDT R/O COVID-19 12/22/2022 12/22/2022 12/22/2022 12:2 5 PM CDT R/O COVID-19 09/07/2023 09/07/2023 09/07/2023 9:52 PM MANAGER SUPPLY CHAIN PLANNING documented as of this encounter Care Teams Aircraft Structural Fitter Relationship Specialty Start Date End Date Kassy Jay MD [address] [place] [address] PCP - General Family Practice 12/04/22 documented as of this encounter
--- OUTSIDE RECORDS SUMMARY | 2025-08-02 18:45 | XMS_ITS | Encounter Summary ---
Author Organization [facility] Address [address] [place] [address] Care Team Providers Care Government Relations Manager Name Role Phone Kasys Jay MD Primary Care Provider [phone] Encounter Details Date Type Department Care Team ([facility] Contact Info) Description 05/09/2004 Outpatient Historical [facility] - [facility] [address] [place] [address] [place] Mittal [place] [address] [place] [address] Social History Tobacco Use Types Packs/Day Years Used Date Smoking Tobacco: Never Assessed Comments Unknown Sex and Gender Information Value Date Recorded Sex Assigned at Not on file Legal Sex Female 4:02 AM STEEL CHIPPER Gender Identity Not on file Sexual Orientation [...] (Late Contact Info) Description 08/15/2025 1:30 PM STEEL CHIPPER Office Visit [facility] Primary Care - [place] Herrmann [address] [place] [address] Kassy Jay MD [address] [place] [phone] 09/25/2025 8:30 AM STEEL CHIPPER Video Visit [facility] Adult Psychiatry [place] [address] [facility] [address] [place] [address] Argelia Law NP [address] [facility] [address] [place] [address] documented as of this encounter Visit Diagnoses Not on filedocumented in this encounter Additional Health Concerns Infection Onset Date Last Indicated Resolved Time R/O COVID-19 06/02/2021 06/03/2021 06/03/2021 7:34 PM CDT R/O COVID-19 12/22/2022 12/22/2022 12/22/2022 12:2 5 PM CDT R/O COVID-19 09/07/2023 09/07/2023 09/07/2023 9:52 PM STEEL CHIPPER documented as of this encounter Care Teams Government Relations Manager Relationship Specialty Start Date End Date Kassy Jay MD [address] [place] [address] [phone] PCP - General Family Practice 12/04/22 documented as of this encounter
--- OUTSIDE RECORDS SUMMARY | 2025-08-02 18:45 | XMS_ITS | Encounter Summary ---
Author Organization [facility] Address [address] [place] [address] Care Team Providers Care Docket Clerk Name Role Phone Kassy Jay MD Primary Care Provider [phone] Encounter Details Date Type Department Care Team (Latest Contact Info) Description 02/13/2005 Outpatient Historical [facility] Gustavo Sims ASTHMA UNSPECIFIED (Primary Dx) Social History Tobacco Use Types Packs/Day Years Used Date Smoking Tobacco: Never Assessed Comments Unknown Sex and Gender Information Value Date Recorded Sex Assigned at Not on file Legal Sex Female 4:02 AM METER READER CHIEF Gender Identity Not on file Sexual Orientation Not on file documented as of this encounter Plan of Treatment Upcoming Encounters Date Type Department Care Team (Late st Contact Info) Description 08/15/2025 1:30 PM METER READER CHIEF Office Visit [facility] Primary Care - Kirby Herrmann [address] [place] [phone] Kassy Jay MD [address] [place] [address] [phone] 09/25/2025 8:30 AM METER READER CHIEF Video Visit [facility] Adult Psychiatry [place] [address] [address] [place] [phone] Argelia Law NP [address] [address] [place] [address] documented as of this encounter Visit Diagnoses Diagnosis Unspecified asthma(493.90)- Primary Unspecified asthma documented in this encounter Additional Health Concerns Infection Onset Date Last Indicated Resolved Time R/O COVID-19 06/02/2021 06/03/2021 06/03/2021 7:34 PM CDT R/O COVID-19 12/22/2022 12/22/2022 12/22/2022 12:2 5 PM CDT R/O COVID-19 09/07/2023 09/07/2023 09/07/2023 9:52 PM METER READER CHIEF documented as of this encounter Care Teams Docket Clerk Relationship Specialty Start Date End Date Kassy Jay MD [address] [place] [address] [phone] PCP - General Family Practice 12/04/22 documented as of this encounter
--- OUTSIDE RECORDS SUMMARY | 2025-08-02 18:45 | XMS_ITS | Encounter Summary ---
Author Organization [facility] Address [address] [place] [address] Care Team Providers Care Automobile Parker Name Role Phone Kassy Jay MD Primary Care Provider [phone] Encounter Details Date Type Department Care Team (Late Contact Info) Description 02/10/2003 Outpatient Historical [facility] - [facility] [address] [place] [address] [place] [address] [facility] [address] [place] [address] Social History Tobacco Use Types Packs/Day Years Used Date Smoking Tobacco: Never Assessed Comments Unknown Sex and Gender Information Value Date Recorded Sex Assigned at Not on file Legal Sex Female 4:02 AM TRACER CLERK Gender Identity Not on file Sexual Orientation Not on file documented as of this encounter Plan of Treatment Upcoming Encounters Date Type Department Care Team (Late Contact Info) Description 08/15/2025 1:30 PM TRACER CLERK Office Visit [facility] Primary Care - Kirby Herr[place] [address] [place] [phone] Kassy Jay MD [address] [place] [phone] 09/25/2025 8:30 AM TRACER CLERK Video Visit [facility] Adult Psychiatry [place] [address] [address] [place] [phone] Argelia Law NP [address] [address] [place] [address] documented as of this encounter Visit Diagnoses Not on filedocumented in this encounter Additional Health Concerns Infection Onset Date Last Indicated Resolved Time R/O COVID-19 06/02/2021 06/03/2021 06/03/2021 7:34 PM CDT R/O COVID-19 12/22/2022 12/22/2022 12/22/2022 12:2 5 PM CDT R/O COVID-19 09/07/2023 09/07/2023 09/07/2023 9:52 PM TRACER CLERK documented as of this encounter Care Teams Automobile Parker Relationship Specialty Start Date End Date Kassy Jay MD [address] [place] [address] [phone] PCP - General Family Practice 12/04/22 documented as of this encounter
--- OUTSIDE RECORDS SUMMARY | 2025-08-02 18:45 | XMS_ITS | Encounter Summary ---
Author Organization [facility] Address [address] [place] [address] Care Team Providers Care Injection Wax Molder Name Role Phone Kassy Jay MD Primary Care Provider [phone] Encounter Details Date Type Department Care Team (Late Contact Info) Description 03/26/2004 Outpatient Historical [facility] Pediatrics - [facility] [address] [place] [address] [place] [address] [place] [address] Social History Tobacco Use Types Packs/Day Years Used Date Smoking Tobacco: Never Assessed Comments Unknown Sex and Gender Information Value Date Recorded Sex Assigned at Not on file Legal Sex Female 4:02 AM FAMILY MEDICINE RESIDENT Gender Identity Not on file Sexual Orientation Not on file documented as of this encounter Plan of Treatment Upcoming Encounters Date Type Department Care Team (Late Contact Info) Description 08/15/2025 1:30 PM FAMILY MEDICINE RESIDENT Office Visit [facility] Primary Care - Kirby Herrmann [address] [place] [phone] Kassy Jay MD [address] [place] [phone] 09/25/2025 8:30 AM FAMILY MEDICINE RESIDENT Video Visit [facility] Adult Psychiatry [place] [address] [address] [place] [phone] Argelia Law NP [address] [address] [place] [address] documented as of this encounter Visit Diagnoses Not on filedocumented in this encounter Additional Health Concerns Infection Onset Date Last Indicated Resolved Time R/O COVID-19 06/02/2021 06/03/2021 06/03/2021 7:34 PM CDT R/O COVID-19 12/22/2022 12/22/2022 12/22/2022 12:2 5 PM CDT R/O COVID-19 09/07/2023 09/07/2023 09/07/2023 9:52 PM FAMILY MEDICINE RESIDENT documented as of this encounter Care Teams Injection Wax Molder Relationship Specialty Start Date End Date Kassy Jay MD [address] [place] [address] [phone] PCP - General Family Practice 12/04/22 documented as of this encounter
--- OUTSIDE RECORDS SUMMARY | 2025-08-02 18:45 | XMS_ITS | Encounter Summary ---
Author Organization [facility] Address [address] [place] [address] Care Team Providers Care Sweeper Driver Name Role Phone Kassy Jay MD Primary Care Provider Encounter Details Date Type Department Care Team (Late Contact Info) Description 04/25/2003 Outpatient Historical [facility] Pediatrics - [facility] [address] [place] [address] [place] [address] [facility] [address] [place] [address] Social History Tobacco Use Types Packs/Day Years Used Date Smoking Tobacco: Never Assessed Comments Unknown Sex and Gender Information Value Date Recorded Sex Assigned at Not on file Legal Sex Female 4:02 AM SHOT POLISHER AND INSPECTOR Gender Identity Not on file Sexual Orientation Not on file documented as of this encounter Plan of Treatment Upcoming Encounters Date Type Department Care Team (Late Contact Info) Description 08/15/2025 1:30 PM SHOT POLISHER AND INSPECTOR Office Visit [facility] Primary Care - Kirby Herrmann [address] [place] [address] [phone] Kassy Jay MD [address] [place] [phone] 09/25/2025 8:30 AM SHOT POLISHER AND INSPECTOR Video Visit [facility] Adult Psychiatry [place] [address] [address] [place] [phone] Argelia Law NP [address] [address] [place] [address] documented as of this encounter Visit Diagnoses Not on filedocumented in this encounter Additional Health Concerns Infection Onset Date Last Indicated Resolved Time R/O COVID-19 06/02/2021 06/03/2021 06/03/2021 7:34 PM CDT R/O COVID-19 12/22/2022 12/22/2022 12/22/2022 12:2 5 PM CDT R/O COVID-19 09/07/2023 09/07/2023 09/07/2023 9:52 PM SHOT POLISHER AND INSPECTOR documented as of this encounter Care Teams Sweeper Driver Relationship Specialty Start Date End Date Kassy Jay MD [address] [place] [address] [phone] PCP - General Family Practice 12/04/22 documented as of this encounter
--- OUTSIDE RECORDS SUMMARY | 2025-08-02 18:45 | XMS_ITS | Encounter Summary ---
Author Organization [facility] Address [address] [place] [address] Care Team Providers Care Active Directory Systems Administrator Name Role Phone Kassy Jay MD Primary Care Provider [phone] Encounter Details Date Type Department Care Team (Late Contact Info) Description 04/21/2003 Outpatient Historical [facility] Pediatrics - [facility] [address] [facility] [address] [facility] [address] [place] [address] [place] [address] [place] [address] Social History Tobacco Use Types Packs/Day Years Used Date Smoking Tobacco: Never Assessed Comments Unknown Sex and Gender Information Value Date Recorded Sex Assigned at Not on file Legal Sex Female 4:02 AM REFRACTORY MANAGER Gender Identity Not on file Sexual Orientation Not on file documented as of this encounter Plan of Treatment Upcoming Encounters Date Type Department Care Team (Late Contact Info) Description 08/15/2025 1:30 PM REFRACTORY MANAGER Office Visit [facility] Primary Care - Kirby Herrmann [address] [address] [phone] Kassy Jay MD [address] [place] [place] [phone] 09/25/2025 8:30 AM REFRACTORY MANAGER Video Visit [facility] Adult Psychiatry [place] [address] [address] [place] [phone] Argelia Law NP [address] [address] [place] [address] documented as of this encounter Visit Diagnoses Not on filedocumented in this encounter Additional Health Concerns Infection Onset Date Last Indicated Resolved Time R/O COVID-19 06/02/2021 06/03/2021 06/03/2021 7:34 PM CDT R/O COVID-19 12/22/2022 12/22/2022 12/22/2022 12:2 5 PM CDT R/O COVID-19 09/07/2023 09/07/2023 09/07/2023 9:52 PM REFRACTORY MANAGER documented as of this encounter Care Teams Active Directory Systems Administrator Relationship Specialty Start Date End Date Kassy Jay MD [address] [place] [address] [phone] PCP - General Family Practice 12/04/22 documented as of this encounter
--- OUTSIDE RECORDS SUMMARY | 2025-08-02 18:45 | XMS_ITS | Encounter Summary ---
Author Organization [facility] Address [address] [place] [address] Care Team Providers Care Director Global Name Role Phone Kassy Jay MD Primary Care Provider [phone] Encounter Details Date Type Department Care Team (Late Contact Info) Description 11/08/2004 Outpatient Historical [facility] Pediatrics - [facility] [address] [place] [address] [place] [address] [place] [address] Social History Tobacco Use Types Packs/Day Years Used Date Smoking Tobacco: Never Assessed Comments Unknown Sex and Gender Information Value Date Recorded Sex Assigned at Not on file Legal Sex Female 4:02 AM MIDDLE SCHOOL MUSIC TEACHER Gender Identity Not on file Sexual Orientation Not on file documented as of this encounter Plan of Treatment Upcoming Encounters Date Type Department Care Team (Late Contact Info) Description 08/15/2025 1:30 PM MIDDLE SCHOOL MUSIC TEACHER Office Visit [facility] Primary Care - Kirby Herrmann [address] [place] [phone] Kassy Jay MD [address] [place] [address] [phone] 09/25/2025 8:30 AM MIDDLE SCHOOL MUSIC TEACHER Video Visit [facility] Adult Psychiatry [place] [address] [address] [place] [phone] Argelia Law NP [address] [address] [place] [address] documented as of this encounter Visit Diagnoses Not on filedocumented in this encounter Additional Health Concerns Infection Onset Date Last Indicated Resolved Time R/O COVID-19 06/02/2021 06/03/2021 06/03/2021 7:34 PM CDT R/O COVID-19 12/22/2022 12/22/2022 12/22/2022 12:2 5 PM CDT R/O COVID-19 09/07/2023 09/07/2023 09/07/2023 9:52 PM MIDDLE SCHOOL MUSIC TEACHER documented as of this encounter Care Teams Director Global Relationship Specialty Start Date End Date Kassy Jay MD [address] [place] [address] [phone] PCP - General Family Practice 12/04/22 documented as of this encounter
--- OUTSIDE RECORDS SUMMARY | 2025-08-02 18:45 | XMS_ITS | Encounter Summary ---
Author Organization [facility] Address [address] [place] [address] Care Team Providers Care Final Dressing Cutter Name Role Phone Kassy Jay MD Primary Care Provider [phone] Encounter Details Date Type Department Care Team (Late Contact Info) Description 12/15/2003 Outpatient Historical [facility] Childrens Respiratory and Sleep Medicine [address] [facility] [address] [address] Gustavo Sims Social History Tobacco Use Types Packs/Day Years Used Date Smoking Tobacco: Never Assessed Comments Unknown Sex and Gender Information Value Date Recorded Sex Assigned at Not on file Legal Sex Female 4:02 AM GAS OPERATION MANAGER Gender Identity Not on file Sexual Orientation Not on file documented as of this encounter Plan of Treatment Upcoming Encounters Date Type Department Care Team (Late Contact Info) Description 08/15/2025 1:30 PM GAS OPERATION MANAGER Office Visit [facility] Primary [place] [phone] Kassy Jay MD [address] [place] [phone] 09/25/2025 8:30 AM GAS OPERATION MANAGER Video Visit [facility] Adult Psychiatry [place] [address] [place] [phone] [place], Argelia Lopez NP [address] [address] [place] [address] documented as of this encounter Visit Diagnoses Not on filedocumented in this encounter Additional Health Concerns Infection Onset Date Last Indicated Resolved Time R/O COVID-19 06/02/2021 06/03/2021 06/03/2021 7:34 PM CDT R/O COVID-19 12/22/2022 12/22/2022 12/22/2022 12:2 5 PM CDT R/O COVID-19 09/07/2023 09/07/2023 09/07/2023 9:52 PM GAS OPERATION MANAGER documented as of this encounter Care Teams Final Dressing Cutter Relationship Specialty Start Date End Date Kassy Jay MD [address] [facility] [place] [phone] PCP - General Family Practice 12/04/22 documented as of this encounter
--- OUTSIDE RECORDS SUMMARY | 2025-08-02 18:45 | XMS_ITS | Encounter Summary ---
Author Organization [facility] Address [address] [place] [address] Care Team Providers Care Residential Designer Name Role Phone Kassy Jay MD Primary Care Provider [phone] Encounter Details Date Type Department Care Team (Late Contact Info) Description 12/05/2002 Outpatient Historical [facility] Childrens Respiratory and Sleep Medicine [address] [facility] [address] [address] [address] Gustavo Sims Social History Tobacco Use Types Packs/Day Years Used Date Smoking Tobacco: Never Assessed Comments Unknown Sex and Gender Information Value Date Recorded Sex Assigned at Not on file Legal Sex Female 4:02 AM MENTAL HEALTH ADVANCED PRACTICE NURSE Gender Identity Not on file Sexual Orientation Not on file documented as of this encounter Plan of Treatment Upcoming Encounters Date Type Department Care Team (Late Contact Info) Description 08/15/2025 1:30 PM MENTAL HEALTH ADVANCED PRACTICE NURSE Office Visit [facility] [place] [phone] Kassy Jay MD [address] [place] [phone] 09/25/2025 8:30 AM MENTAL HEALTH ADVANCED PRACTICE NURSE Video Visit [facility] Adult Psychiatry [address] [address] [place] [phone] [place], Argelia Lopez NP [address] [address] [place] [address] documented as of this encounter Visit Diagnoses Not on filedocumented in this encounter Additional Health Concerns Infection Onset Date Last Indicated Resolved Time R/O COVID-19 06/02/2021 06/03/2021 06/03/2021 7:34 PM CDT R/O COVID-19 12/22/2022 12/22/2022 12/22/2022 12:2 5 PM CDT R/O COVID-19 09/07/2023 09/07/2023 09/07/2023 9:52 PM MENTAL HEALTH ADVANCED PRACTICE NURSE documented as of this encounter Care Teams Residential Designer Relationship Specialty Start Date End Date Kassy Jay MD [address] [facility] [place] [phone] PCP - General Family Practice 12/04/22 documented as of this encounter
--- OUTSIDE RECORDS SUMMARY | 2025-08-02 18:45 | XMS_ITS | Encounter Summary ---
Author Organization [facility] Address [address] [place] [address] Care Team Providers Care Hydraulic Plumber Name Role Phone Kassy Jay MD Primary Care Provider [phone] Encounter Details Date Type Department Care Team (Late Contact Info) Description 11/08/2004 Outpatient Historical [facility] ([facility]3] Pediatrics - [facility] [address] [facility] [address] [place] [address] [place] [address] [facility] [address] [place] [address] Social History Tobacco Use Types Packs/Day Years Used Date Smoking Tobacco: Never Assessed Comments Unknown Sex and Gender Information Value Date Recorded Sex Assigned at Not on file Legal Sex Female 4:02 AM EMERGENCY ROOM SPECIALIST Gender Identity Not on file Sexual Orientation Not on file documented as of this encounter Plan of Treatment Upcoming Encounters Date Type Department Care Team (Late Contact Info) Description 08/15/2025 1:30 PM EMERGENCY ROOM SPECIALIST Office Visit [facility] ([facility]3] Primary Care - Kirby Herr[place] [address] [phone] Kassy Jay MD [address] [place] [phone] 09/25/2025 8:30 AM EMERGENCY ROOM SPECIALIST Video Visit [facility] ([facility]3] Adult Psychiatry [place] [address] [address] [place] [phone] Argelia Law NP [address] [address] [place] [address] documented as of this encounter Visit Diagnoses Not on filedocumented in this encounter Additional Health Concerns Infection Onset Date Last Indicated Resolved Time R/O COVID-19 06/02/2021 06/03/2021 06/03/2021 7:34 PM CDT R/O COVID-19 12/22/2022 12/22/2022 12/22/2022 12:2 5 PM CDT R/O COVID-19 09/07/2023 09/07/2023 09/07/2023 9:52 PM EMERGENCY ROOM SPECIALIST documented as of this encounter Care Teams Hydraulic Plumber Relationship Specialty Start Date End Date Kassy Jay MD [address] [place] [address] [phone] PCP - General Family Practice 12/04/22 documented as of this encounter
--- OUTSIDE RECORDS SUMMARY | 2025-08-02 18:45 | XMS_ITS | Encounter Summary ---
Author Organization [facility] Address [address] [place] [address] Care Team Providers Care Director Of Group Counseling Program Name Role Phone Kassy Jay MD Primary Care Provider [phone] Encounter Details Date Type Department Care Team (Late Contact Info) Description 10/09/2003 Outpatient Historical [facility] [address] [facility] [address] [address] Gustavo Sims Social History Tobacco Use Types Packs/Day Years Used Date Smoking Tobacco: Never Assessed Comments Unknown Sex and Gender Information Value Date Recorded Sex Assigned at Not on file Legal Sex Female 4:02 AM SLURRY PLANT OPERATOR Gender Identity Not on file Sexual Orientation Not on file documented as of this encounter Plan of Treatment Upcoming Encounters Date Type Department Care Team (Late Contact Info) Description 08/15/2025 1:30 PM SLURRY PLANT OPERATOR Office Visit [facility] [place] [phone] Kassy Jay MD [address] [place] [address] 09/25/2025 8:30 AM SLURRY PLANT OPERATOR Video Visit [facility] Adult Psychiatry [address] [address] [place] [phone] [place], Argelia Lopez NP [address] [address] [place] [address] documented as of this encounter Visit Diagnoses Not on filedocumented in this encounter Additional Health Concerns Infection Onset Date Last Indicated Resolved Time R/O COVID-19 06/02/2021 06/03/2021 06/03/2021 7:34 PM CDT R/O COVID-19 12/22/2022 12/22/2022 12/22/2022 12:2 5 PM CDT R/O COVID-19 09/07/2023 09/07/2023 09/07/2023 9:52 PM SLURRY PLANT OPERATOR documented as of this encounter Care Teams Director Of Group Counseling Program Relationship Specialty Start Date End Date Kassy Jay MD [address] [facility] [place] [phone] PCP - General Family Practice 12/04/22 documented as of this encounter
--- OUTSIDE RECORDS SUMMARY | 2025-08-02 18:45 | XMS_ITS | Encounter Summary ---
Author Organization [facility] Address [address] [place] [address] Care Team Providers Care Supervisor Customer Complaint Service Name Role Phone Kassy Jay MD Primary Care Provider [phone] Encounter Details Date Type Department Care Team (Late Contact Info) Description 07/18/2004 Outpatient Historical [facility] Pediatrics - [facility] [address] [facility] [address] [place] [address] [place] [address] [place] [address] Social History Tobacco Use Types Packs/Day Years Used Date Smoking Tobacco: Never Assessed Comments Unknown Sex and Gender Information Value Date Recorded Sex Assigned at Not on file Legal Sex Female 4:02 AM FINAL RAIL CUTTER Gender Identity Not on file Sexual Orientation Not on file documented as of this encounter Plan of Treatment Upcoming Encounters Date Type Department Care Team (Late Contact Info) Description 08/15/2025 1:30 PM FINAL RAIL CUTTER Office Visit [facility] Primary Care - Kirby Herrmann [address] [place] [address] [phone] Kassy Jay MD [address] [place] [address] [phone] 09/25/2025 8:30 AM FINAL RAIL CUTTER Video Visit [facility] Adult Psychiatry Varinder [address] [address] [place] [phone] Argelia Law NP [address] [address] [place] [address] documented as of this encounter Visit Diagnoses Not on filedocumented in this encounter Additional Health Concerns Infection Onset Date Last Indicated Resolved Time R/O COVID-19 06/02/2021 06/03/2021 06/03/2021 7:34 PM CDT R/O COVID-19 12/22/2022 12/22/2022 12/22/2022 12:2 5 PM CDT R/O COVID-19 09/07/2023 09/07/2023 09/07/2023 9:52 PM FINAL RAIL CUTTER documented as of this encounter Care Teams Supervisor Customer Complaint Service Relationship Specialty Start Date End Date Kassy Jay MD [address] [place] [address] [phone] PCP - General Family Practice 12/04/22 documented as of this encounter
[2025-08-02 18:46] VITALS: BP 130/88; PULSE 86; RESP 16; TEMP 36.6; O2SAT 98
--- OUTSIDE RECORDS SUMMARY | 2025-08-02 18:46 | XMS_ITS | Encounter Summary ---
Author Organization [facility] Address [address] [place] [address] Care Team Providers Care Shaker Out Name Role Phone Kassy Jay MD Primary Care Provider [phone] Encounter Details Date Type Department Care Team (Latest Contact Info) Description 01/01/2006 Outpatient Historical [facility] Gustavo Sims Extrinsic Asthma, Unspecified (Primary Dx) Social History Tobacco Use Types Packs/Day Years Used Date Smoking Tobacco: Never Assessed Comments Unknown Sex and Gender Information Value Date Recorded Sex Assigned at Not on file Legal Sex Female 4:02 AM SMASH HAND Gender Identity Not on file Sexual Orientation Not on file documented as of this encounter Plan of Treatment Upcoming Encounters Date Type Department Care Team (Late st Contact Info) Description 08/15/2025 1:30 PM SMASH HAND Office Visit [facility] Primary Care - Kirby Herrmann [address] [address] [phone] Kassy Jay MD [address] [place] [address] [phone] 09/25/2025 8:30 AM SMASH HAND Video Visit [facility] Adult Psychiatry [place] [address] [address] [place] [phone] Argelia Law NP [address] [address] [place] [address] documented as of this encounter Visit Diagnoses Diagnosis Extrinsic asthma, unspecified- Primary documented in this encounter Additional Health Concerns Infection Onset Date Last Indicated Resolved Time R/O COVID-19 06/02/2021 06/03/2021 06/03/2021 7:34 PM CDT R/O COVID-19 12/22/2022 12/22/2022 12/22/2022 12:2 5 PM CDT R/O COVID-19 09/07/2023 09/07/2023 09/07/2023 9:52 PM SMASH HAND documented as of this encounter Care Teams Shaker Out Relationship Specialty Start Date End Date Kassy Jay MD [address] [place] [address] [phone] PCP - General Family Practice 12/04/22 documented as of this encounter
--- OUTSIDE RECORDS SUMMARY | 2025-08-02 18:46 | XMS_ITS | Encounter Summary ---
Author Organization [facility] Address [address] [place] [address] Care Team Providers Care Operating Cost Clerk Name Role Phone Kassy Jay MD Primary Care Provider [phone] Encounter Details Date Type Department Care Team (Late Contact Info) Description 1998 Outpatient Historical [facility] Pediatrics - [facility] [address] [facility] [address] [place] [address] Darren Tabor MD NO ADDRESS ON FILE Social History Tobacco Use Types Packs/Day Years Used Date Smoking Tobacco: Never Assessed Comments Unknown Sex and Gender Information Value Date Recorded Sex Assigned at Not on file Legal Sex Female 4:02 AM OXYGEN EQUIPMENT TECHNICIAN Gender Identity Not on file Sexual Orientation Not on file documented as of this encounter Plan of Treatment Upcoming Encounters Date Type Department Care Team (Late Contact Info) Description 08/15/2025 1:30 PM OXYGEN EQUIPMENT TECHNICIAN Office Visit [facility] Primary Care - Kirby Herrmann [address] [address] [phone] Kassy Jay MD [address] [place] [place] [phone] 09/25/2025 8:30 AM OXYGEN EQUIPMENT TECHNICIAN Video Visit [facility] [address]iatry [address] [phone] Argelia Law, [place] [address] [address] [place] [address] documented as of this encounter Visit Diagnoses Not on filedocumented in this encounter Additional Health Concerns Infection Onset Date Last Indicated Resolved Time R/O COVID-19 06/02/2021 06/03/2021 06/03/2021 7:34 PM CDT R/O COVID-19 12/22/2022 12/22/2022 12/22/2022 12:2 5 PM CDT R/O COVID-19 09/07/2023 09/07/2023 09/07/2023 9:52 PM OXYGEN EQUIPMENT TECHNICIAN documented as of this encounter Care Teams Operating Cost Clerk Relationship Specialty Start Date End Date Kassy Jay MD [address] [phone] PCP - General Family Practice 12/04/22 documented as of this encounter
--- OUTSIDE RECORDS SUMMARY | 2025-08-02 18:46 | XMS_ITS | Encounter Summary ---
Author Organization [facility] Address [address] [place] [address] Care Team Providers Care Resident Physician In Radiology Name Role Phone Kassy Jay MD Primary Care Provider Encounter Details Date Type Department Care Team (Late Contact Info) Description 10/07/2002 Outpatient Historical [facility] Pediatrics - [facility] [address] [facility] [address] [place] [address] [place] [address] [place] [address] Social History Tobacco Use Types Packs/Day Years Used Date Smoking Tobacco: Never Assessed Comments Unknown Sex and Gender Information Value Date Recorded Sex Assigned at Not on file Legal Sex Female 4:02 AM TEST INSPECTION ENGINEER Gender Identity Not on file Sexual Orientation Not on file documented as of this encounter Plan of Treatment Upcoming Encounters Date Type Department Care Team (Late Contact Info) Description 08/15/2025 1:30 PM TEST INSPECTION ENGINEER Office Visit [facility] Primary Care - Kirby Herrmann [address] [address] [phone] Kassy Jay MD [address] [place] [phone] 09/25/2025 8:30 AM TEST INSPECTION ENGINEER Video Visit [facility] Adult Psychiatry Varinder [address] [address] [place] [phone] Argelia Law NP [address] [address] [place] [address] documented as of this encounter Visit Diagnoses Not on filedocumented in this encounter Additional Health Concerns Infection Onset Date Last Indicated Resolved Time R/O COVID-19 06/02/2021 06/03/2021 06/03/2021 7:34 PM CDT R/O COVID-19 12/22/2022 12/22/2022 12/22/2022 12:2 5 PM CDT R/O COVID-19 09/07/2023 09/07/2023 09/07/2023 9:52 PM TEST INSPECTION ENGINEER documented as of this encounter Care Teams Resident Physician In Radiology Relationship Specialty Start Date End Date Kassy Jay MD [address] [phone] PCP - General Family Practice 12/04/22 documented as of this encounter
--- OUTSIDE RECORDS SUMMARY | 2025-08-02 18:46 | XMS_ITS | Encounter Summary ---
Author Organization [facility] Address [address] [place] [address] Care Team Providers Care Inside Sales Associate Name Role Phone Kassy Jay MD Primary Care Provider Encounter Details Date Type Department Care Team (Late Contact Info) Description 07/18/2005 Outpatient Historical [facility] Pediatrics - [facility] [address] [address] [facility] [address] [place] [address] [place] [address] [facility] [address] [place] [address] Social History Tobacco Use Types Packs/Day Years Used Date Smoking Tobacco: Never Assessed Comments Unknown Sex and Gender Information Value Date Recorded Sex Assigned at Not on file Legal Sex Female 4:02 AM HIM ASSISTANT Gender Identity Not on file Sexual Orientation Not on file documented as of this encounter Plan of Treatment Upcoming Encounters Date Type Department Care Team (Late Contact Info) Description 08/15/2025 1:30 PM HIM ASSISTANT Office Visit [facility] Primary Care - Kirby Herrmann [address] [address] [phone] Kassy Jay MD [address] [phone] 09/25/2025 8:30 AM HIM ASSISTANT Video Visit [facility] Adult Psychiatry Varinder [address] [address] [place] [phone] Argelia Law NP [address] [address] [place] [address] documented as of this encounter Visit Diagnoses Not on filedocumented in this encounter Additional Health Concerns Infection Onset Date Last Indicated Resolved Time R/O COVID-19 06/02/2021 06/03/2021 06/03/2021 7:34 PM CDT R/O COVID-19 12/22/2022 12/22/2022 12/22/2022 12:2 5 PM CDT R/O COVID-19 09/07/2023 09/07/2023 09/07/2023 9:52 PM HIM ASSISTANT documented as of this encounter Care Teams Inside Sales Associate Relationship Specialty Start Date End Date Kassy Jay MD [address] [place] [address] [phone] PCP - General Family Practice 12/04/22 documented as of this encounter
--- OUTSIDE RECORDS SUMMARY | 2025-08-02 18:46 | XMS_ITS | Encounter Summary ---
Author Organization [facility] Address [address] [place] [address] Care Team Providers Care Jacquard Loom Heddles Tier Name Role Phone Kassy Jay MD Primary Care Provider [phone] Encounter Details Date Type Department Care Team (Late Contact Info) Description 07/21/[address] [facility] Pediatrics - [facility] [address] [facility] [address] [place] [address] [place] [address] [facility] [address] [place] [address] Social History Tobacco Use Types Packs/Day Years Used Date Smoking Tobacco: Never Assessed Comments Unknown Sex and Gender Information Value Date Recorded Sex Assigned at Not on file Legal Sex Female 4:02 AM SLATE CUTTER Gender Identity Not on file Sexual Orientation Not on file documented as of this encounter Plan of Treatment Upcoming Encounters Date Type Department Care Team (Late Contact Info) Description 08/15/2025 1:30 PM SLATE CUTTER Office Visit [facility] Primary Care - Kirby Herrmann [address] [address] [phone] Kassy Jay MD [address] [address] [phone] 09/25/2025 8:30 AM SLATE CUTTER Video Visit [facility] Adult Psychiatry Varinder [address] [address] [place] [phone] Argelia Law NP [address] [address] [place] [address] documented as of this encounter Visit Diagnoses Not on filedocumented in this encounter Additional Health Concerns Infection Onset Date Last Indicated Resolved Time R/O COVID-19 06/02/2021 06/03/2021 06/03/2021 7:34 PM CDT R/O COVID-19 12/22/2022 12/22/2022 12/22/2022 12:2 5 PM CDT R/O COVID-19 09/07/2023 09/07/2023 09/07/2023 9:52 PM SLATE CUTTER documented as of this encounter Care Teams Jacquard Loom Heddles Tier Relationship Specialty Start Date End Date Kassy Jay MD [address] [place] [phone] PCP - General Family Practice 12/04/22 documented as of this encounter
--- OUTSIDE RECORDS SUMMARY | 2025-08-02 18:46 | XMS_ITS | Encounter Summary ---
Author Organization [facility] Address [address] [place] [address] Care Team Providers Care Can Crimper Name Role Phone Kassy Jay MD Primary Care Provider [phone] Encounter Details Date Type Department Care Team (Late Contact Info) Description 1998 Outpatient Historical [facility] Pediatrics - [facility] [address] [facility] [address] [place] [address] Darren Tabor MD NO ADDRESS [...] (Late Contact Info) Description 08/15/2025 1:30 PM CRA Office Visit [facility] Primary Care - Kirby Herrmann [address] [phone] Kassy Jay MD [address] [place] [place] [phone] 09/25/2025 8:30 AM CRA Video Visit [facility] [address]iatry [address] [phone] Argelia Law, [place] [address] [address] [place] [address] documented as of this encounter Visit Diagnoses Not on filedocumented in this encounter Additional Health Concerns Infection Onset Date Last Indicated Resolved Time R/O COVID-19 06/02/2021 06/03/2021 06/03/2021 7:34 PM CDT R/O COVID-19 12/22/2022 12/22/2022 12/22/2022 12:2 5 PM CDT R/O COVID-19 09/07/2023 09/07/2023 09/07/2023 9:52 PM CRA documented as of this encounter Care Teams Can Crimper Relationship Specialty Start Date End Date Kassy Jay MD [address] [place] [phone] PCP - General Family Practice 12/04/22 documented as of this encounter
--- OUTSIDE RECORDS SUMMARY | 2025-08-02 18:46 | XMS_ITS | Encounter Summary ---
Author Organization Address [address] [place] [address] Care Team Providers Care Clinical Outcomes Manager Name Role Phone Kassy Jay MD Primary Care Provider [phone] Encounter Details Date Type Department Care Team (Late Contact Info) Description 07/13/2001 Outpatient Historical [facility] Pediatrics - [facility] [address] [facility] [address] [place] [address] [place] [address] [facility] [place] [address] Social History Tobacco Use Types Packs/Day Years Used Date Smoking Tobacco: Never Assessed Comments Unknown Sex and Gender Information Value Date Recorded Sex Assigned at Not on file Legal Sex Female 4:02 AM METAL DOOR ASSEMBLER Gender Identity Not on file Sexual Orientation Not on file documented as of this encounter Plan of Treatment Upcoming Encounters Date Type Department Care Team (Late Contact Info) Description 08/15/2025 1:30 PM METAL DOOR ASSEMBLER Office Visit [facility] Primary Care - Kirby Herrmann [address] [place] [address] [phone] Kassy Jay MD [address] [place] [address] [phone] 09/25/2025 8:30 AM METAL DOOR ASSEMBLER Video Visit [facility] Adult Psychiatry Var[place] [address] [address] [place] [phone] Argelia Law NP [address] [address] [place] [address] documented as of this encounter Visit Diagnoses Not on filedocumented in this encounter Additional Health Concerns Infection Onset Date Last Indicated Resolved Time R/O COVID-19 06/02/2021 06/03/2021 06/03/2021 7:34 PM CDT R/O COVID-19 12/22/2022 12/22/2022 12/22/2022 12:2 5 PM CDT R/O COVID-19 09/07/2023 09/07/2023 09/07/2023 9:52 PM METAL DOOR ASSEMBLER documented as of this encounter Care Teams Clinical Outcomes Manager Relationship Specialty Start Date End Date Kassy Jay MD [address] [place] [address] [phone] PCP - General Family Practice 12/04/22 documented as of this encounter
--- OUTSIDE RECORDS SUMMARY | 2025-08-02 18:46 | XMS_ITS | Encounter Summary ---
Author Organization [facility] Address [address] [place] [address] Care Team Providers Care Supervisor Instrument Maintenance Name Role Phone Kassy Jay MD Primary Care Provider [phone] Encounter Details Date Type Department Care Team ([facility] Contact Info) Description 07/03/2007 Outpatient Historical [facility] Pediatrics - [facility] [address] [address] [facility] [address] [place] [address] [place] [address] [facility] [address] [place] [address] Social History Tobacco Use Types Packs/Day Years Used Date Smoking Tobacco: Never Assessed Comments Unknown Sex and Gender Information Value Date Recorded Sex Assigned at Not on file Legal Sex Female 4:02 AM ELECTRONICS INSTRUCTOR Gender Identity Not on file Sexual [...] Upcoming Encounters Date Type Department Care Team ([facility] Contact Info) Description 08/15/2025 1:30 PM ELECTRONICS INSTRUCTOR Office Visit [facility] Primary Care - Michael Herrmann [address] [place] [phone] Kassy Jay MD [address] [place] [phone] 09/25/2025 8:30 AM ELECTRONICS INSTRUCTOR Video Visit [facility] Adult Psychiatry Varinder [address] [address] [place] [address] Argelia Law NP [address] [address] [place] [address] documented as of this encounter Visit Diagnoses Not on filedocumented in this encounter Additional Health Concerns Infection Onset Date Last Indicated Resolved Time R/O COVID-19 06/02/2021 06/03/2021 06/03/2021 7:34 PM CDT R/O COVID-19 12/22/2022 12/22/2022 12/22/2022 12:2 5 PM CDT R/O COVID-19 09/07/2023 09/07/2023 09/07/2023 9:52 PM ELECTRONICS INSTRUCTOR documented as of this encounter Care Teams Supervisor Instrument Maintenance Relationship Specialty Start Date End Date Kassy Jay MD [address] [place] [phone] PCP - General Family Practice 12/04/22 documented as of this encounter
--- OUTSIDE RECORDS SUMMARY | 2025-08-02 18:46 | XMS_ITS | Encounter Summary ---
Author Organization [facility] Address [address] [place] [address] Care Team Providers Care Inhalation Therapy Aides Teacher Name Role Phone Kassy Jay MD Primary Care Provider Encounter Details Date Type Department Care Team (Late Contact Info) Description 07/21/2005 Outpatient Historical [facility] ([facility]3] Pediatrics - [facility] [address] [place] [address] [place] [address] [place] [address] Social History Tobacco Use Types Packs/Day Years Used Date Smoking Tobacco: Never Assessed Comments Unknown Sex and Gender Information Value Date Recorded Sex Assigned at Not on file Legal Sex Female 4:02 AM TEXTILE MACHINE OPERATOR Gender Identity Not on file Sexual Orientation Not on file documented as of this encounter Plan of Treatment Upcoming Encounters Date Type Department Care Team (Late Contact Info) Description 08/15/2025 1:30 PM TEXTILE MACHINE OPERATOR Office Visit [facility] ([facility]3] Primary Care - Kirby Herr[place] [address] [place] [phone] Kassy Jay MD [address] [place] [phone] 09/25/2025 8:30 AM TEXTILE MACHINE OPERATOR Video Visit [facility] ([facility]3] Adult Psychiatry Varinder [address] [address] [place] [address] Argelia Law NP [address] [address] [place] [address] documented as of this encounter Visit Diagnoses Not on filedocumented in this encounter Additional Health Concerns Infection Onset Date Last Indicated Resolved Time R/O COVID-19 06/02/2021 06/03/2021 06/03/2021 7:34 PM CDT R/O COVID-19 12/22/2022 12/22/2022 12/22/2022 12:2 5 PM CDT R/O COVID-19 09/07/2023 09/07/2023 09/07/2023 9:52 PM TEXTILE MACHINE OPERATOR documented as of this encounter Care Teams Inhalation Therapy Aides Teacher Relationship Specialty Start Date End Date Kassy Jay MD [address] [place] [address] [phone] PCP - General Family Practice 12/04/22 documented as of this encounter
--- OUTSIDE RECORDS SUMMARY | 2025-08-02 18:46 | XMS_ITS | Encounter Summary ---
Author Organization [facility] Address [address] [place] [address] Care Team Providers Care Water Treatment Plant Mechanic Name Role Phone Kassy Jay MD Primary Care Provider [phone] Encounter Details Date Type Department Care Team (Late Contact Info) Description 05/02/2002 Outpatient Historical [facility] Pediatrics - [facility] [address] [place] [address] [place] [address] [address] [address] [place] [address] Social History Tobacco Use Types Packs/Day Years Used Date Smoking Tobacco: Never Assessed Comments Unknown Sex and Gender Information Value Date Recorded Sex Assigned at Not on file Legal Sex Female 4:02 AM MATH AND SCIENCE INSTRUCTOR Gender Identity Not on file Sexual Orientation Not on file documented as of this encounter Plan of Treatment Upcoming Encounters Date Type Department Care Team (Late Contact Info) Description 08/15/2025 1:30 PM MATH AND SCIENCE INSTRUCTOR Office Visit [facility] Primary Care - Kirby Herrmann [address] [place] [phone] Kassy Jay MD [address] [place] [address] [phone] 09/25/2025 8:30 AM MATH AND SCIENCE INSTRUCTOR Video Visit [facility] Adult Psychiatry Varinder [address] [address] [place] [address] Argelia Law NP [address] [address] [place] [address] documented as of this encounter Visit Diagnoses Not on filedocumented in this encounter Additional Health Concerns Infection Onset Date Last Indicated Resolved Time R/O COVID-19 06/02/2021 06/03/2021 06/03/2021 7:34 PM CDT R/O COVID-19 12/22/2022 12/22/2022 12/22/2022 12:2 5 PM CDT R/O COVID-19 09/07/2023 09/07/2023 09/07/2023 9:52 PM MATH AND SCIENCE INSTRUCTOR documented as of this encounter Care Teams Water Treatment Plant Mechanic Relationship Specialty Start Date End Date Kassy Jay MD [address] [place] [address] [phone] PCP - General Family Practice 12/04/22 documented as of this encounter
--- OUTSIDE RECORDS SUMMARY | 2025-08-02 18:46 | XMS_ITS | Encounter Summary ---
Author Organization [facility] Address [address] [place] [address] Care Team Providers Care Grill Chef Name Role Phone Kassy Jay MD Primary Care Provider [phone] Encounter Details Date Type Department Care Team (Late st Contact Info) Description 04/19/2007 Orders Only [facility] Pediatrics - [facility] [address] [address] [place] [address] [place] [address] [facility] [address] [place] [address] Social History Tobacco Use Types Packs/Day Years Used Date Smoking Tobacco: Never Assessed Comments Unknown Sex and Gender Information Value Date Recorded Sex Assigned at Not on file Legal Sex Female 4:02 AM FRONT END WHEEL LOADER OPERATOR Gender Identity Not on file Sexual [...] st Contact Info) Description 08/15/2025 1:30 PM FRONT END WHEEL LOADER OPERATOR Office Visit [facility] Primary Care - Kirby Herrmann [address] [address] [phone] Kassy Jay MD [address] [place] [address] 09/25/2025 8:30 AM FRONT END WHEEL LOADER OPERATOR Video Visit [facility] Adult Psychiatry Eleva [address] [facility] [address] [place] [address] Thanh, Argelia Lopez, [place]AM[place] [address] [facility] [address] [place] [address] documented as of this encounter Visit Diagnoses Not on filedocumented in this encounter Additional Health Concerns Infection Onset Date Last Indicated Resolved Time R/O COVID-19 06/02/2021 06/03/2021 06/03/2021 7:34 PM CDT R/O COVID-19 12/22/2022 12/22/2022 12/22/2022 12:2 5 PM CDT R/O COVID-19 09/07/2023 09/07/2023 09/07/2023 9:52 PM FRONT END WHEEL LOADER OPERATOR documented as of this encounter Care Teams Grill Chef Relationship Specialty Start Date End Date Kassy Jay MD [address] [place] [phone] PCP - General Family Practice 12/04/22 documented as of this encounter
--- OUTSIDE RECORDS SUMMARY | 2025-08-02 18:46 | XMS_ITS | Encounter Summary ---
Author Organization [facility] Address [address] [place] [address] Care Team Providers Care Special Officer Automat Name Role Phone Kassy Jay MD Primary Care Provider [phone] Encounter Details Date Type Department Care Team ([facility] Contact Info) Description 08/11/2007 Outpatient Historical [facility] Pediatrics - [facility] [address] [facility] [address] [address] [place] [address] [place] [address] [place] [address] Social History Tobacco Use Types Packs/Day Years Used Date Smoking Tobacco: Never Assessed Comments Unknown Sex and Gender Information Value Date Recorded Sex Assigned at Not on file Legal Sex Female 4:02 AM YOGA INSTRUCTOR Gender Identity Not on file Sexual Orientation Not on file documented as of this encounter Last Filed Vital Signs Vital Sign Reading Time Taken Comments Blood Pressure - - Pulse 104 08/11/2007 9:45 AM YOGA INSTRUCTOR Temperature 36.7 C (98.1 F) 08/11/2007 9:45 AM YOGA INSTRUCTOR Respiratory Rate 20 08/11/2007 9:45 AM YOGA INSTRUCTOR Oxygen Saturation - - Inhaled Oxygen Concentration - - Weight 34 kg (75 lb) 08/11/2007 9:45 AM YOGA INSTRUCTOR Height - - Body Mass Index - - documented in this encounter Plan of Treatment Upcoming Encounters Date Type Department Care Team ([facility] Contact Info) Description 08/15/2025 1:30 PM YOGA INSTRUCTOR Office Visit [facility] Primary Care - Michael Herrmann [address] [place] [phone] Kassy Jay MD [address] [place] [phone] 09/25/2025 8:30 AM YOGA INSTRUCTOR Video Visit [facility] Adult Psychiatry Varinder [address] [address] [place] [address] Argelia Law NP [address] [facility] [address] [place] [address] documented as of this encounter Visit Diagnoses Not on filedocumented in this encounter Additional Health Concerns Infection Onset Date Last Indicated Resolved Time R/O COVID-19 06/02/2021 06/03/2021 06/03/2021 7:34 PM CDT R/O COVID-19 12/22/2022 12/22/2022 12/22/2022 12:2 5 PM CDT R/O COVID-19 09/07/2023 09/07/2023 09/07/2023 9:52 PM YOGA INSTRUCTOR documented as of this encounter Care Teams Special Officer Automat Relationship Specialty Start Date End Date Kassy Jay MD [address] [place] [address] [phone] PCP - General Family Practice 12/04/22 documented as of this encounter
--- OUTSIDE RECORDS SUMMARY | 2025-08-02 18:46 | XMS_ITS | Encounter Summary ---
Author Organization [facility] Address [address] [place] [address] Care Team Providers Care Die Cutter Operator Name Role Phone Kassy Jay MD Primary Care Provider [phone] Encounter Details Date Type Department Care Team ([facility] Contact Info) Description 04/19/2007 Outpatient Historical [facility] Pediatrics - [facility] [address] [facility] [address] [place] [address] [place] [address] [facility] [address] [place] [address] Social History Tobacco Use Types Packs/Day Years Used Date Smoking Tobacco: Never Assessed Comments Unknown Sex and Gender Information Value Date Recorded Sex Assigned at Not on file Legal Sex Female 4:02 AM CASE MANAGEMENT MANAGER Gender Identity Not on file Sexual [...] [facility] Contact Info) Description 08/15/2025 1:30 PM CASE MANAGEMENT MANAGER Office Visit [facility] Primary Care - Michael Herrmann [address] [place] [phone] Kassy Jay MD [address] [place] [phone] 09/25/2025 8:30 AM CASE MANAGEMENT MANAGER Video Visit [facility] Adult Psychiatry Varinder [address] [address] [place] [address] Argelia Law NP [address] [address] [place] [address] documented as of this encounter Visit Diagnoses Not on filedocumented in this encounter Additional Health Concerns Infection Onset Date Last Indicated Resolved Time R/O COVID-19 06/02/2021 06/03/2021 06/03/2021 7:34 PM CDT R/O COVID-19 12/22/2022 12/22/2022 12/22/2022 12:2 5 PM CDT R/O COVID-19 09/07/2023 09/07/2023 09/07/2023 9:52 PM CASE MANAGEMENT MANAGER documented as of this encounter Care Teams Die Cutter Operator Relationship Specialty Start Date End Date Kassy Jay MD [address] [place] [phone] PCP - General Family Practice 12/04/22 documented as of this encounter
--- OUTSIDE RECORDS SUMMARY | 2025-08-02 18:46 | XMS_ITS | Encounter Summary ---
Author Organization [facility] Address [address] [place] [address] Care Team Providers Care Ski Patroller Name Role Phone Kassy Jay MD Primary Care Provider [phone] Encounter Details Date Type Department Care Team (Late Contact Info) Description 02/11/1999 Outpatient Historical [facility] Pediatrics - [facility] [address] [facility] [address] [place] [address] Darren Tabor MD NO ADDRESS ON FILE Social History Tobacco Use Types Packs/Day Years Used Date Smoking Tobacco: Never Assessed Comments Unknown Sex and Gender Information Value Date Recorded Sex Assigned at Not on file Legal Sex Female 4:02 AM PICKLE SOLUTION MAKER Gender Identity Not on file Sexual Orientation Not on file documented as of this encounter Plan of Treatment Upcoming Encounters Date Type Department Care Team (Late Contact Info) Description 08/15/2025 1:30 PM PICKLE SOLUTION MAKER Office Visit [facility] Primary Care - Kirby Herrmann [address] [phone] Kassy Jay MD [address] [place] [address] [phone] 09/25/2025 8:30 AM PICKLE SOLUTION MAKER Video Visit [facility] [address]iatry [address] [phone] Argelia Law, [place] [address] [address] [place] [address] documented as of this encounter Visit Diagnoses Not on filedocumented in this encounter Additional Health Concerns Infection Onset Date Last Indicated Resolved Time R/O COVID-19 06/02/2021 06/03/2021 06/03/2021 7:34 PM CDT R/O COVID-19 12/22/2022 12/22/2022 12/22/2022 12:2 5 PM CDT R/O COVID-19 09/07/2023 09/07/2023 09/07/2023 9:52 PM PICKLE SOLUTION MAKER documented as of this encounter Care Teams Ski Patroller Relationship Specialty Start Date End Date Kassy Jay MD [address] [phone] PCP - General Family Practice 12/04/22 documented as of this encounter
--- OUTSIDE RECORDS SUMMARY | 2025-08-02 18:46 | XMS_ITS | Encounter Summary ---
Author Organization [facility] Address [address] [place] [address] Care Team Providers Care Legal Counsel Name Role Phone Kassy Jay MD Primary Care Provider [phone] Encounter Details Date Type Department Care Team (Late Contact Info) Description 01/01/2006 Outpatient Historical [facility] [address] [facility] [address] [address] Gustavo Sims Social History Tobacco Use Types Packs/Day Years Used Date Smoking Tobacco: Never Assessed Comments Unknown Sex and Gender Information Value Date Recorded Sex Assigned at Not on file Legal Sex Female 4:02 AM TECHNOLOGY INFUSION SPECIALIST Gender Identity Not on file Sexual Orientation Not on file documented as of this encounter Plan of Treatment Upcoming Encounters Date Type Department Care Team (Late Contact Info) Description 08/15/2025 1:30 PM TECHNOLOGY INFUSION SPECIALIST Office Visit [facility] [place] [phone] Kasys Jay MD [address] [place] [address] 09/25/2025 8:30 AM TECHNOLOGY INFUSION SPECIALIST Video Visit [facility] Adult Psychiatry [address] [address] [address] [phone] [place], Argelia Lopez NP [address] [address] [place] [address] documented as of this encounter Visit Diagnoses Not on filedocumented in this encounter Additional Health Concerns Infection Onset Date Last Indicated Resolved Time R/O COVID-19 06/02/2021 06/03/2021 06/03/2021 7:34 PM CDT R/O COVID-19 12/22/2022 12/22/2022 12/22/2022 12:2 5 PM CDT R/O COVID-19 09/07/2023 09/07/2023 09/07/2023 9:52 PM TECHNOLOGY INFUSION SPECIALIST documented as of this encounter Care Teams Legal Counsel Relationship Specialty Start Date End Date Kassy Jay MD [address] [facility] [address] [place] [phone] PCP - General Family Practice 12/04/22 documented as of this encounter
--- OUTSIDE RECORDS SUMMARY | 2025-08-02 18:46 | XMS_ITS | Encounter Summary ---
Author Organization Address [address] [place] [address] Care Team Providers Care Print Project Manager Name Role Phone Kassy Jay MD Primary Care Provider [phone] Encounter Details Date Type Department Care Team (Late Contact Info) Description 01/01/2000 Outpatient Historical [facility] Pediatrics - [facility] [address] [facility] [address] [place] [address] [place] [address] [facility] [facility] [address] [place] [address] Social History Tobacco Use Types Packs/Day Years Used Date Smoking Tobacco: Never Assessed Comments Unknown Sex and Gender Information Value Date Recorded Sex Assigned at Not on file Legal Sex Female 4:02 AM HYDROELECTRIC MECHANIC Gender Identity Not on file Sexual Orientation Not on file documented as of this encounter Plan of Treatment Upcoming Encounters Date Type Department Care Team (Late Contact Info) Description 08/15/2025 1:30 PM HYDROELECTRIC MECHANIC Office Visit [facility] Primary Care - Kirby Herrmann [address] [address] [phone] Kassy Jay MD [address] [address] [address] [phone] 09/25/2025 8:30 AM HYDROELECTRIC MECHANIC Video Visit [facility] Adult Psychiatry Varinder [address] [address] [address] [address] [phone] Argelia Law NP [address] [address] [place] [address] documented as of this encounter Visit Diagnoses Not on filedocumented in this encounter Additional Health Concerns Infection Onset Date Last Indicated Resolved Time R/O COVID-19 06/02/2021 06/03/2021 06/03/2021 7:34 PM CDT R/O COVID-19 12/22/2022 12/22/2022 12/22/2022 12:2 5 PM CDT R/O COVID-19 09/07/2023 09/07/2023 09/07/2023 9:52 PM HYDROELECTRIC MECHANIC documented as of this encounter Care Teams Print Project Manager Relationship Specialty Start Date End Date Kassy Jay MD [address] [place] [address] [phone] PCP - General Family Practice 12/04/22 documented as of this encounter
--- OUTSIDE RECORDS SUMMARY | 2025-08-02 18:46 | XMS_ITS | Encounter Summary ---
Author Organization [facility] Address [address] [place] [address] Care Team Providers Care Aviation Support Equipment Repairer Name Role Phone Kassy Jay MD Primary Care Provider [phone] Encounter Details Date Type Department Care Team (Late st Contact Info) Description 09/11/2006 Orders Only [facility] Pediatrics - [facility] [address] [facility] [address] [place] [address] [place] [address] [facility] [address] [place] [address] Social History Tobacco Use Types Packs/Day Years Used Date Smoking Tobacco: Never Assessed Comments Unknown Sex and Gender Information Value Date Recorded Sex Assigned at Not on file Legal Sex Female 4:02 AM MACHINE PROGRAMMER Gender Identity Not on file Sexual Orientation Not on file documented as of this encounter Progress Notes * Lacie Malik MD - 07/05/2008 4:31 AM CDT PATIENT'S AGE: 6 yrs, 6 mths, 2 wks, 1 day VITALS: TEMP: 98??f Oral PULSE: 88 Apical, Regular RESPIRATIONS: 20. WEIGHT: [id number] NURSE NAME: Jesusita Williamson L ACCOMPANIED BY: [...] have not changed intermittently. The patient is slaly cough suppressant. PHYSICAL EXAM: CONSTITUTIONAL: GENERAL APPEARANCE: [...] symptoms are not resolved. Electronically Signed by: Laice Malik MD on Thursday, September 11, 2006 documented in this encounter Plan of Treatment Upcoming Encounters Date Type Department Care Team (Late st Contact Info) Description 08/15/2025 1:30 PM MACHINE PROGRAMMER Office Visit [facility] Primary Care - Kirby Herrmann [address] [place] [address] [phone] Kassy Jay MD [address] [place] [place] [phone] 09/25/2025 8:30 AM MACHINE PROGRAMMER Video Visit [facility] Adult Psychiatry Varinder [address] [address] [place] [address] Argelia Law NP [address], [place] [address] documented as of this encounter Visit Diagnoses Not on filedocumented in this encounter Additional Health Concerns Infection Onset Date Last Indicated Resolved Time R/O COVID-19 06/02/2021 06/03/2021 06/03/2021 7:34 PM CDT R/O COVID-19 12/22/2022 12/22/2022 12/22/2022 12:2 5 PM CDT R/O COVID-19 09/07/2023 09/07/2023 09/07/2023 9:52 PM MACHINE PROGRAMMER documented as of this encounter Care Teams Aviation Support Equipment Repairer Relationship Specialty Start Date End Date Kassy Jay MD [address] [phone] PCP - General Family Practice 12/04/22 documented as of this encounter
--- OUTSIDE RECORDS SUMMARY | 2025-08-02 18:46 | XMS_ITS | Encounter Summary ---
Author Organization [facility] Address [address] [place] [address] Care Team Providers Care Information Systems Security Analyst Name Role Phone Kassy Jay MD Primary Care Provider [phone] Encounter Details Date Type Department Care Team (Late Contact Info) Description 04/18/2002 Outpatient Historical [facility] Pediatrics - [place] [address] [place] [address] [place] [address] [facility] [address] [address] [place] [address] Social History Tobacco Use Types Packs/Day Years Used Date Smoking Tobacco: Never Assessed Comments Unknown Sex and Gender Information Value Date Recorded Sex Assigned at Not on file Legal Sex Female 4:02 AM CLIENT ONBOARDING ANALYST Gender Identity Not on file Sexual Orientation Not on file documented as of this encounter Plan of Treatment Upcoming Encounters Date Type Department Care Team (Late Contact Info) Description 08/15/2025 1:30 PM CLIENT ONBOARDING ANALYST Office Visit [facility] Primary Care - Kirby Herrmann [address] [place] [phone] Kassy Jay MD [address] [place] [place] [phone] 09/25/2025 8:30 AM CLIENT ONBOARDING ANALYST Video Visit [facility] Adult Psychiatry Varinder [address] [address] [place] [phone] Argelia Law NP [address] [address] [place] [address] documented as of this encounter Visit Diagnoses Not on filedocumented in this encounter Additional Health Concerns Infection Onset Date Last Indicated Resolved Time R/O COVID-19 06/02/2021 06/03/2021 06/03/2021 7:34 PM CDT R/O COVID-19 12/22/2022 12/22/2022 12/22/2022 12:2 5 PM CDT R/O COVID-19 09/07/2023 09/07/2023 09/07/2023 9:52 PM CLIENT ONBOARDING ANALYST documented as of this encounter Care Teams Information Systems Security Analyst Relationship Specialty Start Date End Date Kassy Jay MD [address] [place] [address] [phone] PCP - General Family Practice 12/04/22 documented as of this encounter
--- OUTSIDE RECORDS SUMMARY | 2025-08-02 18:46 | XMS_ITS | Encounter Summary ---
Author Organization [facility] Address [address] [place] [address] Care Team Providers Care Mattress Stripper Name Role Phone Kassy Jay MD Primary Care Provider [phone] Encounter Details Date Type Department Care Team (Late Contact Info) Description 1998 Outpatient Historical [facility] Pediatrics - [facility] [address] [place] [address] [place] [address] [place] [address] Social History Tobacco Use Types Packs/Day Years Used Date Smoking Tobacco: Never Assessed Comments Unknown Sex and Gender Information Value Date Recorded Sex Assigned at Not on file Legal Sex Female 4:02 AM PALS SPECIALIST Gender Identity Not on file Sexual Orientation Not on file documented as of this encounter Plan of Treatment Upcoming Encounters Date Type Department Care Team (Late Contact Info) Description 08/15/2025 1:30 PM PALS SPECIALIST Office Visit [facility] Primary Care - Kirby Herr[place] [address] [place] [phone] Kassy Jay MD [address] [place] [phone] 09/25/2025 8:30 AM PALS SPECIALIST Video Visit [facility] Adult Psychiatry [place] [address] [address] [place] [address] Argelia Law NP [address] [address] [place] [address] documented as of this encounter Visit Diagnoses Not on filedocumented in this encounter Additional Health Concerns Infection Onset Date Last Indicated Resolved Time R/O COVID-19 06/02/2021 06/03/2021 06/03/2021 7:34 PM CDT R/O COVID-19 12/22/2022 12/22/2022 12/22/2022 12:2 5 PM CDT R/O COVID-19 09/07/2023 09/07/2023 09/07/2023 9:52 PM PALS SPECIALIST documented as of this encounter Care Teams Mattress Stripper Relationship Specialty Start Date End Date Kassy Jay MD [address] [place] [phone] PCP - General Family Practice 12/04/22 documented as of this encounter
--- OUTSIDE RECORDS SUMMARY | 2025-08-02 18:46 | XMS_ITS | Encounter Summary ---
Author Organization [facility] Address [address] [place] [address] Care Team Providers Care Ultrasound Spec Name Role Phone Kassy Jay MD Primary Care Provider [phone] Encounter Details Date Type Department Care Team ([facility] Contact Info) Description 08/27/2005 Outpatient Historical [facility] Pediatrics - [facility] [address] [place] [address] [place] [address] [facility] [address] [place] [address] Social History Tobacco Use Types Packs/Day Years Used Date Smoking Tobacco: Never Assessed Comments Unknown Sex and Gender Information Value Date Recorded Sex Assigned at Not on file Legal Sex Female 4:02 AM WINDOWS INFRASTRUCTURE ENGINEER Gender Identity Not on file Sexual Orientation Not on file documented as of this encounter Last Filed Vital Signs Vital Sign Reading Time Taken Comments Blood Pressure - - Pulse 102 08/27/2005 3:00 PM WINDOWS INFRASTRUCTURE ENGINEER Temperature 36.8 C (98.3 F) 08/27/2005 3:00 PM WINDOWS INFRASTRUCTURE ENGINEER Respiratory Rate 21 08/27/2005 3:00 PM WINDOWS INFRASTRUCTURE ENGINEER Oxygen Saturation - - Inhaled Oxygen Concentration - - Weight 25.9 kg (57 lb) 08/27/2005 3:00 PM WINDOWS INFRASTRUCTURE ENGINEER Height - - Body Mass Index - - documented in this encounter Plan of Treatment Upcoming Encounters Date Type Department Care Team (Late st Contact Info) Description 08/15/2025 1:30 PM WINDOWS INFRASTRUCTURE ENGINEER Office Visit [facility] Primary Care - Michael Herrmann [address] [place] [phone] Kassy Jay MD [address] [place] [phone] 09/25/2025 8:30 AM WINDOWS INFRASTRUCTURE ENGINEER Video Visit [facility] Adult Psychiatry [place] [address] [address] [place] [address] Argelia Law NP [address] [address] [place] [address] documented as of this encounter Visit Diagnoses Not on filedocumented in this encounter Additional Health Concerns Infection Onset Date Last Indicated Resolved Time R/O COVID-19 06/02/2021 06/03/2021 06/03/2021 7:34 PM CDT R/O COVID-19 12/22/2022 12/22/2022 12/22/2022 12:2 5 PM CDT R/O COVID-19 09/07/2023 09/07/2023 09/07/2023 9:52 PM WINDOWS INFRASTRUCTURE ENGINEER documented as of this encounter Care Teams Ultrasound Spec Relationship Specialty Start Date End Date Kassy Jay MD [address] [place] [address] [phone] PCP - General Family Practice 12/04/22 documented as of this encounter
--- OUTSIDE RECORDS SUMMARY | 2025-08-02 18:46 | XMS_ITS | Encounter Summary ---
Author Organization [facility] Address [address] [place] [address] Care Team Providers Care Police Cadet Name Role Phone Kassy Jay MD Primary Care Provider [phone] Encounter Details Date Type Department Care Team (Late Contact Info) Description 06/30/2007 Outpatient Historical [facility] Pediatrics - [facility] [address] [place] [address] [place] [address] [place] [address] Social History Tobacco Use Types Packs/Day Years Used Date Smoking Tobacco: Never Assessed Comments Unknown Sex and Gender Information Value Date Recorded Sex Assigned at Not on file Legal Sex Female 4:02 AM FOURDRINIER MACHINE OPERATOR Gender Identity Not on file Sexual Orientation Not on file documented as of this encounter Plan of Treatment Upcoming Encounters Date Type Department Care Team (Late Contact Info) Description 08/15/2025 1:30 PM FOURDRINIER MACHINE OPERATOR Office Visit [facility] Primary Care - Kirby Hermrann [address] [place] [phone] Kassy Jay MD [address] [place] [phone] 09/25/2025 8:30 AM FOURDRINIER MACHINE OPERATOR Video Visit [facility] Adult Psychiatry Var[place] [address] [address] [place] [phone] Argelia Law NP [address] [address] [place] [address] documented as of this encounter Visit Diagnoses Not on filedocumented in this encounter Additional Health Concerns Infection Onset Date Last Indicated Resolved Time R/O COVID-19 06/02/2021 06/03/2021 06/03/2021 7:34 PM CDT R/O COVID-19 12/22/2022 12/22/2022 12/22/2022 12:2 5 PM CDT R/O COVID-19 09/07/2023 09/07/2023 09/07/2023 9:52 PM FOURDRINIER MACHINE OPERATOR documented as of this encounter Care Teams Police Cadet Relationship Specialty Start Date End Date Kassy Jay MD [address] [place] [address] [phone] PCP - General Family Practice 12/04/22 documented as of this encounter
--- OUTSIDE RECORDS SUMMARY | 2025-08-02 18:46 | XMS_ITS | Encounter Summary ---
Author Organization [facility] Address [address] [place] [address] Care Team Providers Care Dermatology Specialist Name Role Phone Kassy Jay MD Primary Care Provider [phone] Encounter Details Date Type Department Care Team ([facility] Contact Info) Description 1998 Outpatient Historical [facility] [address] Tabor, Darren Ruiz MD NO ADDRESS ON FILE Social History Tobacco Use Types Packs/Day Years Used Date Smoking Tobacco: Never Assessed Comments Unknown Sex and Gender Information Value Date Recorded Sex Assigned at Not on file Legal Sex Female 4:02 AM UNDER PRESSER Gender Identity Not on file Sexual Orientation Not on file documented as of this encounter Plan of Treatment Upcoming Encounters Date Type Department Care Team ([facility] Contact Info) Description 08/15/2025 1:30 PM UNDER PRESSER Office Visit [facility] Primary Care - Kirby Herrmann [address] [place] [address] [address] [phone] Kassy Jay MD [address] [place] [address] [phone] 09/25/2025 8:30 AM UNDER PRESSER Video Visit [facility] Adult Psychiatry [place] [address] [address] [place] [phone] Argelia Law NP [address] [address] [place] [address] documented as of this encounter Visit Diagnoses Not on filedocumented in this encounter Additional Health Concerns Infection Onset Date Last Indicated Resolved Time R/O COVID-19 06/02/2021 06/03/2021 06/03/2021 7:34 PM CDT R/O COVID-19 12/22/2022 12/22/2022 12/22/2022 12:2 5 PM CDT R/O COVID-19 09/07/2023 09/07/2023 09/07/2023 9:52 PM UNDER PRESSER documented as of this encounter Care Teams Dermatology Specialist Relationship Specialty Start Date End Date Kassy Jay MD [address] [place] [phone] PCP - General Family Practice 12/04/22 documented as of this encounter
--- OUTSIDE RECORDS SUMMARY | 2025-08-02 18:46 | XMS_ITS | Encounter Summary ---
Author Organization [facility] Address [address] [place] [address] Care Team Providers Care Cognos Report Developer Name Role Phone Kassy Jay MD Primary Care Provider [phone] Encounter Details Date Type Department Care Team (Late Contact Info) Description 08/06/1999 Outpatient Historical [facility] Pediatrics - [facility] [address] [place] [address] Darren Tabor MD NO ADDRESS ON FILE Social History Tobacco Use Types Packs/Day Years Used Date Smoking Tobacco: Never Assessed Comments Unknown Sex and Gender Information Value Date Recorded Sex Assigned at Not on file Legal Sex Female 4:02 AM CEMENT TILE MAKER Gender Identity Not on file Sexual Orientation Not on file documented as of this encounter Plan of Treatment Upcoming Encounters Date Type Department Care Team (Late Contact Info) Description 08/15/2025 1:30 PM CEMENT TILE MAKER Office Visit [facility] Primary Care - Kirby Herrmann [address] [address] [phone] Kassy Jay MD [address] [place] [phone] 09/25/2025 8:30 AM CEMENT TILE MAKER Video Visit [facility] [address]iatry [address] [phone] Argelia Law, [place] [address] [address] [place] [address] documented as of this encounter Visit Diagnoses Not on filedocumented in this encounter Additional Health Concerns Infection Onset Date Last Indicated Resolved Time R/O COVID-19 06/02/2021 06/03/2021 06/03/2021 7:34 PM CDT R/O COVID-19 12/22/2022 12/22/2022 12/22/2022 12:2 5 PM CDT R/O COVID-19 09/07/2023 09/07/2023 09/07/2023 9:52 PM CEMENT TILE MAKER documented as of this encounter Care Teams Cognos Report Developer Relationship Specialty Start Date End Date Kassy Jay MD [address] [place] [phone] PCP - General Family Practice 12/04/22 documented as of this encounter
--- OUTSIDE RECORDS SUMMARY | 2025-08-02 18:46 | XMS_ITS | Encounter Summary ---
Author Organization [facility] Address [address] [place] [address] Care Team Providers Care Brand Inspector Name Role Phone Kassy Jay MD Primary Care Provider Encounter Details Date Type Department Care Team (Late Contact Info) Description 04/19/1999 Outpatient Historical [facility] Pediatrics - [facility] [address] [place] [address] Darren Tabor MD NO ADDRESS ON FILE Social History Tobacco Use Types Packs/Day Years Used Date Smoking Tobacco: Never Assessed Comments Unknown Sex and Gender Information Value Date Recorded Sex Assigned at Not on file Legal Sex Female 4:02 AM TAFFY PULLER Gender Identity Not on file Sexual Orientation Not on file documented as of this encounter Plan of Treatment Upcoming Encounters Date Type Department Care Team (Late Contact Info) Description 08/15/2025 1:30 PM TAFFY PULLER Office Visit [facility] Primary Care - Kirby Herrmann [address] [place] [address] [phone] Kassy Jay MD [address] [place] [place] [address] [phone] 09/25/2025 8:30 AM TAFFY PULLER Video Visit [facility] Adult Psychiatry [address] [phone] Argelia Law, [place] [address] [address] [place] [address] documented as of this encounter Visit Diagnoses Not on filedocumented in this encounter Additional Health Concerns Infection Onset Date Last Indicated Resolved Time R/O COVID-19 06/02/2021 06/03/2021 06/03/2021 7:34 PM CDT R/O COVID-19 12/22/2022 12/22/2022 12/22/2022 12:2 5 PM CDT R/O COVID-19 09/07/2023 09/07/2023 09/07/2023 9:52 PM TAFFY PULLER documented as of this encounter Care Teams Brand Inspector Relationship Specialty Start Date End Date Kassy Jay MD [address] [phone] PCP - General Family Practice 12/04/22 documented as of this encounter
--- OUTSIDE RECORDS SUMMARY | 2025-08-02 18:46 | XMS_ITS | Encounter Summary ---
Author Organization [facility] Address [address] [place] [address] Care Team Providers Care Tomato Pulper Operator Name Role Phone Kassy Jay MD Primary Care Provider [phone] Encounter Details Date Type Department Care Team (Late Contact Info) Description 06/30/2007 Outpatient Historical [facility] Pediatrics - [facility] [address] [facility] [address] [place] [address] [place] [address] [place] [address] Social History Tobacco Use Types Packs/Day Years Used Date Smoking Tobacco: Never Assessed Comments Unknown Sex and Gender Information Value Date Recorded Sex Assigned at Not on file Legal Sex Female 4:02 AM PRIMER INSERTING MACHINE ADJUSTER Gender Identity Not on file Sexual Orientation Not on file documented as of this encounter Plan of Treatment Upcoming Encounters Date Type Department Care Team (Late Contact Info) Description 08/15/2025 1:30 PM PRIMER INSERTING MACHINE ADJUSTER Office Visit [facility] Primary Care - Kirby Herrmann [address] [place] [phone] Kassy Jay MD [address] [place] [place] [phone] 09/25/2025 8:30 AM PRIMER INSERTING MACHINE ADJUSTER Video Visit [facility] Adult Psychiatry [place] [address] [address] [place] [phone] Argelia Law NP [address] [address] [place] [address] documented as of this encounter Visit Diagnoses Not on filedocumented in this encounter Additional Health Concerns Infection Onset Date Last Indicated Resolved Time R/O COVID-19 06/02/2021 06/03/2021 06/03/2021 7:34 PM CDT R/O COVID-19 12/22/2022 12/22/2022 12/22/2022 12:2 5 PM CDT R/O COVID-19 09/07/2023 09/07/2023 09/07/2023 9:52 PM PRIMER INSERTING MACHINE ADJUSTER documented as of this encounter Care Teams Tomato Pulper Operator Relationship Specialty Start Date End Date Kassy Jay MD [address] [place] [address] [phone] PCP - General Family Practice 12/04/22 documented as of this encounter
--- OUTSIDE RECORDS SUMMARY | 2025-08-02 18:46 | XMS_ITS | Encounter Summary ---
Author Organization [facility] Address [address] [place] [address] Care Team Providers Care Steel Pickler Name Role Phone Kassy Jay MD Primary Care Provider [phone] Encounter Details Date Type Department Care Team (Late Contact Info) Description 1998 Outpatient Historical [facility] Pediatrics - [facility] [address] [place] [address] Darren Tabor MD NO ADDRESS ON FILE Social History Tobacco Use Types Packs/Day Years Used Date Smoking Tobacco: Never Assessed Comments Unknown Sex and Gender Information Value Date Recorded Sex Assigned at Not on file Legal Sex Female 4:02 AM RUBBERIZING MECHANIC Gender Identity Not on file Sexual Orientation Not on file documented as of this encounter Plan of Treatment Upcoming Encounters Date Type Department Care Team (Late Contact Info) Description 08/15/2025 1:30 PM RUBBERIZING MECHANIC Office Visit [facility] Primary Care - Kirby Herrmann [address] [address] [phone] Kassy Jay MD [address] [place] [address] [phone] 09/25/2025 8:30 AM RUBBERIZING MECHANIC Video Visit [facility] Adult Psychiatry [address] [phone] Argelia Law, [place] [address] [address] [place] [address] documented as of this encounter Visit Diagnoses Not on filedocumented in this encounter Additional Health Concerns Infection Onset Date Last Indicated Resolved Time R/O COVID-19 06/02/2021 06/03/2021 06/03/2021 7:34 PM CDT R/O COVID-19 12/22/2022 12/22/2022 12/22/2022 12:2 5 PM CDT R/O COVID-19 09/07/2023 09/07/2023 09/07/2023 9:52 PM RUBBERIZING MECHANIC documented as of this encounter Care Teams Steel Pickler Relationship Specialty Start Date End Date Kassy Jay MD [address] [place] [phone] PCP - General Family Practice 12/04/22 documented as of this encounter
--- OUTSIDE RECORDS SUMMARY | 2025-08-02 18:46 | XMS_ITS | Encounter Summary ---
Author Organization [facility] Address [address] [place] [address] Care Team Providers Care Protein Purification Scientist Name Role Phone Kassy Jay MD Primary Care Provider [phone] Encounter Details Date Type Department Care Team (Late Contact Info) Description 07/21/2005 Outpatient Historical [facility] Pediatrics - [facility] [address] [facility] [address] [place] [address] [place] [address] [place] [address] Social History Tobacco Use Types Packs/Day Years Used Date Smoking Tobacco: Never Assessed Comments Unknown Sex and Gender Information Value Date Recorded Sex Assigned at Not on file Legal Sex Female 4:02 AM PRINCIPAL SYSTEM SOFTWARE ENGINEER Gender Identity Not on file Sexual Orientation Not on file documented as of this encounter Plan of Treatment Upcoming Encounters Date Type Department Care Team (Late Contact Info) Description 08/15/2025 1:30 PM PRINCIPAL SYSTEM SOFTWARE ENGINEER Office Visit [facility] Primary Care - Kirby Herrmann [address] [place] [address] [address] [phone] Kassy Jay MD [address] [address] [phone] 09/25/2025 8:30 AM PRINCIPAL SYSTEM SOFTWARE ENGINEER Video Visit [facility] Adult Psychiatry [place] [address] [address] [place] [phone] Argelia Law NP [address] [address] [place] [address] documented as of this encounter Visit Diagnoses Not on filedocumented in this encounter Additional Health Concerns Infection Onset Date Last Indicated Resolved Time R/O COVID-19 06/02/2021 06/03/2021 06/03/2021 7:34 PM CDT R/O COVID-19 12/22/2022 12/22/2022 12/22/2022 12:2 5 PM CDT R/O COVID-19 09/07/2023 09/07/2023 09/07/2023 9:52 PM PRINCIPAL SYSTEM SOFTWARE ENGINEER documented as of this encounter Care Teams Protein Purification Scientist Relationship Specialty Start Date End Date Kassy Jay MD [address] [place] [place] [address] [phone] PCP - General Family Practice 12/04/22 documented as of this encounter
--- OUTSIDE RECORDS SUMMARY | 2025-08-02 18:46 | XMS_ITS | Encounter Summary ---
Author Organization [facility] Address [address] [place] [address] Care Team Providers Care Robotics Specialist Name Role Phone Kasys Jay MD Primary Care Provider [phone] Encounter Details Date Type Department Care Team (Late Contact Info) Description 09/04/2005 Outpatient Historical [facility] [address] [address] Gustavo Sims Social History Tobacco Use Types Packs/Day Years Used Date Smoking Tobacco: Never Assessed Comments Unknown Sex and Gender Information Value Date Recorded Sex Assigned at Not on file Legal Sex Female 4:02 AM LITHOGRAPHER APPRENTICE Gender Identity Not on file Sexual Orientation Not on file documented as of this encounter Plan of Treatment Upcoming Encounters Date Type Department Care Team (Late Contact Info) Description 08/15/2025 1:30 PM LITHOGRAPHER APPRENTICE Office Visit [facility] [place] [phone] Kassy Jay MD [address] [place] [phone] 09/25/2025 8:30 AM LITHOGRAPHER APPRENTICE Video Visit [facility] Adult Psychiatry [address] [address] [place] [phone] Mitchell, Argelia Lopez NP [address] [address] [place] [address] documented as of this encounter Visit Diagnoses Not on filedocumented in this encounter Additional Health Concerns Infection Onset Date Last Indicated Resolved Time R/O COVID-19 06/02/2021 06/03/2021 06/03/2021 7:34 PM CDT R/O COVID-19 12/22/2022 12/22/2022 12/22/2022 12:2 5 PM CDT R/O COVID-19 09/07/2023 09/07/2023 09/07/2023 9:52 PM LITHOGRAPHER APPRENTICE documented as of this encounter Care Teams Robotics Specialist Relationship Specialty Start Date End Date Kassy Jay MD [address] [facility] [place] [place] [phone] PCP - General Family Practice 12/04/22 documented as of this encounter
--- OUTSIDE RECORDS SUMMARY | 2025-08-02 18:46 | XMS_ITS | Encounter Summary ---
Author Organization [facility] Address [address] [place] [address] Care Team Providers Care Coffee Shop Aide Name Role Phone Kassy Jay MD Primary Care Provider [phone] Encounter Details Date Type Department Care Team (Late Contact Info) Description 09/11/2006 Outpatient Historical [facility] Pediatrics - [facility] [address] [facility] [address] [place] [address] [place] [address] [place] [address] Social History Tobacco Use Types Packs/Day Years Used Date Smoking Tobacco: Never Assessed Comments Unknown Sex and Gender Information Value Date Recorded Sex Assigned at Not on file Legal Sex Female 4:02 AM MUSIC MANAGER Gender Identity Not on file Sexual Orientation Not on file documented as of this encounter Last Filed Vital Signs Vital Sign Reading Time Taken Comments Blood Pressure - - Pulse 88 09/11/2006 8:45 AM MUSIC MANAGER Temperature 36.7 C (98 F) 09/11/2006 8:45 AM MUSIC MANAGER Respiratory Rate 20 09/11/2006 8:45 AM MUSIC MANAGER Oxygen Saturation - - Inhaled Oxygen Concentration - - Weight 30.2 kg (66 lb 8 oz) 09/11/2006 8:[address] Height - - Body Mass Index - - documented in this encounter Plan of Treatment Upcoming Encounters Date Type Department Care Team (Late Contact Info) Description 08/15/2025 1:30 PM MUSIC MANAGER Office Visit [facility] Primary Care - Michael Herrmann [address] [place] [address] Kassy Jay MD [address] [place] [phone] 09/25/2025 8:30 AM MUSIC MANAGER Video Visit [facility] Adult Psychiatry [place] [address] [facility] [address] [place] [address] Argelia Law NP [address] [facility] [address] [place] [address] documented as of this encounter Visit Diagnoses Not on filedocumented in this encounter Additional Health Concerns Infection Onset Date Last Indicated Resolved Time R/O COVID-19 06/02/2021 06/03/2021 06/03/2021 7:34 PM CDT R/O COVID-19 12/22/2022 12/22/2022 12/22/2022 12:2 5 PM CDT R/O COVID-19 09/07/2023 09/07/2023 09/07/2023 9:52 PM MUSIC MANAGER documented as of this encounter Care Teams Coffee Shop Aide Relationship Specialty Start Date End Date Kassy Jay MD [address] [place] [phone] PCP - General Family Practice 12/04/22 documented as of this encounter
--- OUTSIDE RECORDS SUMMARY | 2025-08-02 18:46 | XMS_ITS | Encounter Summary ---
Author Organization [facility] Address [address] [place] [address] Care Team Providers Care Visual Coordinator Name Role Phone Kassy Jay MD Primary Care Provider [phone] Encounter Details Date Type Department Care Team (Late st Contact Info) Description 04/28/2006 Orders Only [facility] Pediatrics - [facility] [address] [place] [address] [place] [address] [facility] [address] [place] [address] Social History Tobacco Use Types Packs/Day Years Used Date Smoking Tobacco: Never Assessed Comments Unknown Sex and Gender Information Value Date Recorded Sex Assigned at Not on file Legal Sex Female 4:02 AM GAMEPLAY PROGRAMMER Gender Identity Not on file Sexual Orientation Not on file documented as of this encounter Progress Notes * Lacie Malik MD - 06/29/2008 9:55 PM CDT TIME:10:41 am PATIENT`S HOME PHONE: PATIENT`S WORK PHONE: PATIENT`S INSURANCE: [facility] WHO TOOK THE CALL: Alana Ba [...] st Contact Info) Description 08/15/2025 1:30 PM GAMEPLAY PROGRAMMER Office Visit [facility] Primary Care - Kirby Herrmann [address] [place] [place] [address] Kassy Jay MD [address] [place] [address] 09/25/2025 8:30 AM GAMEPLAY PROGRAMMER Video Visit [facility] Adult Psychiatry [place] [address] [place] [address] Argelia Law NP [address] [address] documented as of this encounter Visit Diagnoses Not on filedocumented in this encounter Additional Health Concerns Infection Onset Date Last Indicated Resolved Time R/O COVID-19 06/02/2021 06/03/2021 06/03/2021 7:34 PM CDT R/O COVID-19 12/22/2022 12/22/2022 12/22/2022 12:2 5 PM CDT R/O COVID-19 09/07/2023 09/07/2023 09/07/2023 9:52 PM GAMEPLAY PROGRAMMER documented as of this encounter Care Teams Visual Coordinator Relationship Specialty Start Date End Date Kassy Jay MD [address] [place] [address] [place] [phone] PCP - General Family Practice 12/04/22 documented as of this encounter
--- OUTSIDE RECORDS SUMMARY | 2025-08-02 18:46 | XMS_ITS | Encounter Summary ---
Author Organization [facility] Address [address] [place] [address] Care Team Providers Care Sanitary Aide Name Role Phone Kassy Jay MD Primary Care Provider [phone] Encounter Details Date Type Department Care Team (Late Contact Info) Description 1998 Outpatient Historical [facility] Pediatrics - [facility] [address] [facility] [address] [place] [address] Garrett Mittal MD [address] [place] [address] Social History Tobacco Use Types Packs/Day Years Used Date Smoking Tobacco: Never Assessed Comments Unknown Sex and Gender Information Value Date Recorded Sex Assigned at Not on file Legal Sex Female 4:02 AM MEDICAL ASSISTANT SECRETARY Gender Identity Not on file Sexual Orientation Not on file documented as of this encounter Plan of Treatment Upcoming Encounters Date Type Department Care Team (Late Contact Info) Description 08/15/2025 1:30 PM MEDICAL ASSISTANT SECRETARY Office Visit [facility] Primary Care - Kirby Herrmann [address] [place] [phone] Kassy Jay MD [address] [place] [phone] 09/25/2025 8:30 AM MEDICAL ASSISTANT SECRETARY Video Visit [facility] Adult Psychiatry [place] [address] [place] [address] [address] [place] [address] Argelia Law NP [address] [place] [address] [address] [place] [address] documented as of this encounter Visit Diagnoses Not on filedocumented in this encounter Additional Health Concerns Infection Onset Date Last Indicated Resolved Time R/O COVID-19 06/02/2021 06/03/2021 06/03/2021 7:34 PM CDT R/O COVID-19 12/22/2022 12/22/2022 12/22/2022 12:2 5 PM CDT R/O COVID-19 09/07/2023 09/07/2023 09/07/2023 9:52 PM MEDICAL ASSISTANT SECRETARY documented as of this encounter Care Teams Sanitary Aide Relationship Specialty Start Date End Date Kassy Jay MD [address] [place] [phone] PCP - General Family Practice 12/04/22 documented as of this encounter
--- OUTSIDE RECORDS SUMMARY | 2025-08-02 18:46 | XMS_ITS | Encounter Summary ---
Author Organization [facility] Address [address] [place] [address] Care Team Providers Care Shingle Sawyer Name Role Phone Kassy Jay MD Primary Care Provider [phone] Encounter Details Date Type Department Care Team (Late Contact Info) Description 06/03/1999 Outpatient Historical [facility] Pediatrics - [facility] [address] [facility] [address] [place] [address] Darren Tabor MD NO ADDRESS ON FILE Social History Tobacco Use Types Packs/Day Years Used Date Smoking Tobacco: Never Assessed Comments Unknown Sex and Gender Information Value Date Recorded Sex Assigned at Not on file Legal Sex Female 4:02 AM DISTRICT MANAGER PRIMARY CARE SALES Gender Identity Not on file Sexual Orientation Not on file documented as of this encounter Plan of Treatment Upcoming Encounters Date Type Department Care Team (Late Contact Info) Description 08/15/2025 1:30 PM DISTRICT MANAGER PRIMARY CARE SALES Office Visit [facility] Primary Care - Kirby Herr[address] [place] [phone] Kassy Jay MD [address] [place] [phone] 09/25/2025 8:30 AM DISTRICT MANAGER PRIMARY CARE SALES Video Visit [facility] [address] Psychiatry [address] [phone] Argelia Law, [place] [address] [place] [address] [address] [place] [address] documented as of this encounter Visit Diagnoses Not on filedocumented in this encounter Additional Health Concerns Infection Onset Date Last Indicated Resolved Time R/O COVID-19 06/02/2021 06/03/2021 06/03/2021 7:34 PM CDT R/O COVID-19 12/22/2022 12/22/2022 12/22/2022 12:2 5 PM CDT R/O COVID-19 09/07/2023 09/07/2023 09/07/2023 9:52 PM DISTRICT MANAGER PRIMARY CARE SALES documented as of this encounter Care Teams Shingle Sawyer Relationship Specialty Start Date End Date Kassy Jay MD [address] [place] [phone] PCP - General Family Practice 12/04/22 documented as of this encounter
--- OUTSIDE RECORDS SUMMARY | 2025-08-02 18:46 | XMS_ITS | Clinical Summary ---
Author Organization [facility] Address [address] [facility] [address] [place] [address] Care Team Providers Care Load Blocker Name Role Phone Kassy Jay MD Primary Care Provider [phone] Source Comments [facility],non-owned Affiliates and Associated Physician Practices is amultiple site organization consisting of ambulatory clinics and hospital sitesin [place], [place], [place] and [place]. This disclosure is being madepursuant to the Care Everywhere program and may not contain all information available regarding this patient. Last updated 18.[facility] Allergies Active Allergy Reactions Criticality Noted Date [...] Zyrtec & solumedrol given. Make appt with agricultural engineering technologist. 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 Endocrinology. Recently started on diazoxide. BG [...] sent hypoglycemia labs. Discussed with veronica, outpatient central supply supervisor Dr. Mejia will f/u with results [...] & Plan: Patient reports follows with [facility] psychiatry. Pharmacy list confirmed with patient. [...] Industry Job Start Date Job End Date [employer] Not on file Not on file Not on file Last Filed Vital Signs Vital Sign Reading Time Taken Comments Blood Pressure 113/71 10/11/2024 2:05 PM REAL ESTATE TEACHER Pulse 82 10/11/2024 2:05 PM REAL ESTATE TEACHER Temperature 36.7 C (98.1 F) 10/11/2024 11:52 AM REAL ESTATE TEACHER Respiratory Rate 20 10/11/2024 2:05 PM REAL ESTATE TEACHER Oxygen Saturation 98% 10/11/2024 2:05 PM REAL ESTATE TEACHER Inhaled Oxygen Concentration - - Weight 81.6 kg (180 lb) 10/11/2024 11:52 AM REAL ESTATE TEACHER Height 154.9 cm (5' 1) 10/11/2024 11:52 AM REAL ESTATE TEACHER Body Mass Index 34.01 10/11/2024 11:52 AM REAL ESTATE TEACHER Plan of Treatment Upcoming Encounters Date Type Department Care Team (Late st Contact Info) Description 09/12/2025 9:45 AM REAL ESTATE TEACHER Office Visit [facility] Health Medical Group - FRONT END JAVA DEVELOPER [address] [facility] [address] [place] [address] Sam Cui MD [address] [facility] [address] [place] [address] Health Maintenance [...] HR ALL PATH Routine 08/31/2023 10:35 AM REAL ESTATE TEACHER Routine cervical smear from Last 3 Months or Most Recently Relevant to Health Maintenance Results * PAP IG RFLX HPV HR ALL PATH (08/31/2023 10:35 AM REAL ESTATE TEACHER) Diagnosis [facility] INSURANCE BILL Comment: NEGATIVE FOR INTRAEPITHELIAL LESION OR MALIGNANCY. REACTIVE CELLULAR CHANGES AND/OR REPAIR ARE PRESENT. Specimen Adequacy [facility] INSURANCE BILL Comment: Satisfactory for evaluation. Endocervical and/or squamous metaplastic cells (endocervical component) are present. Clinician Provided ICD10 [facility] INSURANCE BILL Comment: Z01.419 Z12.4 Z97.5 Performed by [facility] INSURANCE BILL Comment:Casey Dunn hnologist (ASCP) Electronically Signed by [facility] INSURANCE BILL Comment:Mony Hermosillo MD, P athologist Comment . [facility] INSURANCE BILL Note [facility] INSURANCE BILL Comment: The Pap smear is a screening test designed to aid in the detection of premalignant and malignant conditions of the uterine cervix. It is not a diagnostic procedure and should not be used as the sole means of detecting cervical cancer. Both false-positive and false-negative reports do occur. . [facility] CPT Code Automation [facility] INSURANCE BILL Comment: This liquid based ThinPrep(R) pap test was screened with the use of an image guided system. Note [facility] INSURANCE BILL Comment: The HPV DNA reflex criteria were not met with this specimen result therefore, no HPV testing was performed. . Pathology/Cytolog y ENTIRE ENDOCERVIX / Unknown 08/31/2023 10:35 AM REAL ESTATE TEACHER 09/01/2023 Narrative [facility] INSURANCE BILL - 09/03/2023 3:09 PM REAL ESTATE TEACHER Source.............Cervix No. of containers..01 ThinPrep Vial Resulting Agency Comment Lab Testing performed at: [facility] [id number] Sam Cui MD LAB - PATHOLOGY/CYTOLOGY ORDERAB LES Final Result [facility] INSURANCE BILL [address] [place] [address] from Last 3 Months or Most Recently Relevant to Health Maintenance Insurance MEDICAID [employer] Care Teams Load Blocker Relationship Specialty Start Date End Date Kassy Jay MD [address] [place] [phone] PCP - General Family Medicine 06/15/23
--- OUTSIDE RECORDS SUMMARY | 2025-08-02 18:46 | XMS_ITS | Encounter Summary ---
Author Organization [facility] Address [address] [place] [address] Care Team Providers Care Linker Up Name Role Phone Kassy Jay MD Primary Care Provider [phone] Encounter Details Date Type Department Care Team (Late Contact Info) Description 04/13/2002 Outpatient Historical [facility] Pediatrics - [facility] [address] [facility] [address] [place] [address] [place] [address] [address] [facility] [place] [address] Social History Tobacco Use Types Packs/Day Years Used Date Smoking Tobacco: Never Assessed Comments Unknown Sex and Gender Information Value Date Recorded Sex Assigned at Not on file Legal Sex Female 4:02 AM LAY BROTHER Gender Identity Not on file Sexual Orientation Not on file documented as of this encounter Plan of Treatment Upcoming Encounters Date Type Department Care Team (Late Contact Info) Description 08/15/2025 1:30 PM LAY BROTHER Office Visit [facility] Primary Care - Kirby Herr[address] [place] [phone] Kassy Jay MD [address] [place] [phone] 09/25/2025 8:30 AM LAY BROTHER Video Visit [facility] Adult Psychiatry [place] [address] [place] [address] [address] [place] [address] Argelia Law NP [address] [place] [address] [address] [place] [address] documented as of this encounter Visit Diagnoses Not on filedocumented in this encounter Additional Health Concerns Infection Onset Date Last Indicated Resolved Time R/O COVID-19 06/02/2021 06/03/2021 06/03/2021 7:34 PM CDT R/O COVID-19 12/22/2022 12/22/2022 12/22/2022 12:2 5 PM CDT R/O COVID-19 09/07/2023 09/07/2023 09/07/2023 9:52 PM LAY BROTHER documented as of this encounter Care Teams Linker Up Relationship Specialty Start Date End Date Kassy Jay MD [address] [place] [phone] PCP - General Family Practice 12/04/22 documented as of this encounter
--- OUTSIDE RECORDS SUMMARY | 2025-08-02 18:46 | XMS_ITS | Encounter Summary ---
Author Organization [facility] Address [address] [place] [address] Care Team Providers Care Telephone Interceptor Operator Name Role Phone Kassy Jay MD Primary Care Provider [phone] Encounter Details Date Type Department Care Team (Late Contact Info) Description 08/23/2001 Outpatient Historical [facility] Pediatrics - [facility] [address] [facility] [address] [place] [address] [place] [address] [facility] [facility] [address] [place] [address] Social History Tobacco Use Types Packs/Day Years Used Date Smoking Tobacco: Never Assessed Comments Unknown Sex and Gender Information Value Date Recorded Sex Assigned at Not on file Legal Sex Female 4:02 AM COMPRESSOR STATION ENGINEER Gender Identity Not on file Sexual Orientation Not on file documented as of this encounter Plan of Treatment Upcoming Encounters Date Type Department Care Team (Late Contact Info) Description 08/15/2025 1:30 PM COMPRESSOR STATION ENGINEER Office Visit [facility] Primary Care - [address] [phone] Kassy Jay MD [address] [place] [phone] 09/25/2025 8:30 AM COMPRESSOR STATION ENGINEER Video Visit [facility] Adult Psychiatry [place] [address] [place] [address] [address] [phone] Argelia Law NP [address] [place] [address] [address] [place] [address] documented as of this encounter Visit Diagnoses Not on filedocumented in this encounter Additional Health Concerns Infection Onset Date Last Indicated Resolved Time R/O COVID-19 06/02/2021 06/03/2021 06/03/2021 7:34 PM CDT R/O COVID-19 12/22/2022 12/22/2022 12/22/2022 12:2 5 PM CDT R/O COVID-19 09/07/2023 09/07/2023 09/07/2023 9:52 PM COMPRESSOR STATION ENGINEER documented as of this encounter Care Teams Telephone Interceptor Operator Relationship Specialty Start Date End Date Kassy Jay MD [address] [place] [address] [phone] PCP - General Family Practice 12/04/22 documented as of this encounter
--- OUTSIDE RECORDS SUMMARY | 2025-08-02 18:46 | XMS_ITS | Encounter Summary ---
Author Organization [facility] Address [address] [place] [address] Care Team Providers Care Expansion Joint Finisher Name Role Phone Kassy Jay MD Primary Care Provider [phone] Encounter Details Date Type Department Care Team (Late Contact Info) Description 09/04/2005 Outpatient Historical [facility] Children[facility] Respiratory and Sleep Medicine [address] [facility] [address] [address] Gustavo Sims Social History Tobacco Use Types Packs/Day Years Used Date Smoking Tobacco: Never Assessed Comments Unknown Sex and Gender Information Value Date Recorded Sex Assigned at Not on file Legal Sex Female 4:02 AM RISK COMPLIANCE ANALYST Gender Identity Not on file Sexual Orientation Not on file documented as of this encounter Plan of Treatment Upcoming Encounters Date Type Department Care Team (Late Contact Info) Description 08/15/2025 1:30 PM RISK COMPLIANCE ANALYST Office Visit [facility] [place] [phone] Kassy Jay MD [address] [place] [phone] 09/25/2025 8:30 AM RISK COMPLIANCE ANALYST Video Visit [facility] Adult Psychiatry [place] [address] [address] [place] [phone] [place], Argelia Lopez NP [address] [place] [address] [address] [address] documented as of this encounter Visit Diagnoses Not on filedocumented in this encounter Additional Health Concerns Infection Onset Date Last Indicated Resolved Time R/O COVID-19 06/02/2021 06/03/2021 06/03/2021 7:34 PM CDT R/O COVID-19 12/22/2022 12/22/2022 12/22/2022 12:2 5 PM CDT R/O COVID-19 09/07/2023 09/07/2023 09/07/2023 9:52 PM RISK COMPLIANCE ANALYST documented as of this encounter Care Teams Expansion Joint Finisher Relationship Specialty Start Date End Date Kassy Jay MD [address] [facility] [address] [place] [phone] PCP - General Family Practice 12/04/22 documented as of this encounter
--- OUTSIDE RECORDS SUMMARY | 2025-08-02 18:46 | XMS_ITS | Encounter Summary ---
Author Organization [facility] Address [address] [place] [address] Care Team Providers Care Space Operations Officer Name Role Phone Kassy Jay MD Primary Care Provider [phone] Encounter Details Date Type Department Care Team (Late Contact Info) Description 02/26/1999 Outpatient Historical [facility] Pediatrics - [facility] [address] [facility] [address] [place] [address] Darren Tabor MD NO ADDRESS ON FILE Social History Tobacco Use Types Packs/Day Years Used Date Smoking Tobacco: Never Assessed Comments Unknown Sex and Gender Information Value Date Recorded Sex Assigned at Not on file Legal Sex Female 4:02 AM MANAGER INTERNET RETAILS SALES Gender Identity Not on file Sexual Orientation Not on file documented as of this encounter Plan of Treatment Upcoming Encounters Date Type Department Care Team (Late Contact Info) Description 08/15/2025 1:30 PM MANAGER INTERNET RETAILS SALES Office Visit [facility] Primary Care - Kirby Herr[address] [address] [phone] Kassy Jay MD [address] [place] [phone] 09/25/2025 8:30 AM MANAGER INTERNET RETAILS SALES Video Visit [facility] Adult Psychiatry [address] [phone] Argelia Law, [place] [address] [place] [address] [address] [place] [address] documented as of this encounter Visit Diagnoses Not on filedocumented in this encounter Additional Health Concerns Infection Onset Date Last Indicated Resolved Time R/O COVID-19 06/02/2021 06/03/2021 06/03/2021 7:34 PM CDT R/O COVID-19 12/22/2022 12/22/2022 12/22/2022 12:2 5 PM CDT R/O COVID-19 09/07/2023 09/07/2023 09/07/2023 9:52 PM MANAGER INTERNET RETAILS SALES documented as of this encounter Care Teams Space Operations Officer Relationship Specialty Start Date End Date Kassy Jay MD [address] [place] [phone] PCP - General Family Practice 12/04/22 documented as of this encounter
--- OUTSIDE RECORDS SUMMARY | 2025-08-02 18:46 | XMS_ITS | Encounter Summary ---
Author Organization [facility] Address [address] [place] [address] Care Team Providers Care Fur Glazer Name Role Phone Kassy Jay MD Primary Care Provider [phone] Encounter Details Date Type Department Care Team (Late Contact Info) Description 11/23/2000 Outpatient Historical [facility] Pediatrics - [facility] [address] [place] [address] [place] [address] [place] [address] Social History Tobacco Use Types Packs/Day Years Used Date Smoking Tobacco: Never Assessed Comments Unknown Sex and Gender Information Value Date Recorded Sex Assigned at Not on file Legal Sex Female 4:02 AM BANQUET DIRECTOR Gender Identity Not on file Sexual Orientation Not on file documented as of this encounter Plan of Treatment Upcoming Encounters Date Type Department Care Team (Late Contact Info) Description 08/15/2025 1:30 PM BANQUET DIRECTOR Office Visit [facility] Primary Care - [address] [place] [phone] Kassy Jay MD [address] [place] [place] [phone] 09/25/2025 8:30 AM BANQUET DIRECTOR Video Visit [facility] Adult Psychiatry [place] [address] [place] [address] [address] [place] [phone] Argelia Law NP [address] [place] [address] [address] [address] [address] documented as of this encounter Visit Diagnoses Not on filedocumented in this encounter Additional Health Concerns Infection Onset Date Last Indicated Resolved Time R/O COVID-19 06/02/2021 06/03/2021 06/03/2021 7:34 PM CDT R/O COVID-19 12/22/2022 12/22/2022 12/22/2022 12:2 5 PM CDT R/O COVID-19 09/07/2023 09/07/2023 09/07/2023 9:52 PM BANQUET DIRECTOR documented as of this encounter Care Teams Fur Glazer Relationship Specialty Start Date End Date Kassy Jay MD [address] [place] [address] [phone] PCP - General Family Practice 12/04/22 documented as of this encounter
--- OUTSIDE RECORDS SUMMARY | 2025-08-02 18:46 | XMS_ITS | Encounter Summary ---
Author Organization [employer] Address [address] [place] [address] Care Team Providers Care Cottonseed Meat Presser Name Role Phone Kassy Jay MD Primary Care Provider [phone] Encounter Details Date Type Department Care Team (Late st Contact Info) Description 08/01/2025 External Device Data [facility] ABSTRACTION Provider, Abstract NO ADDRESS ON FILE Social History Tobacco Use Types Packs/Day Years Used Date Smoking Tobacco: Never Cigarettes Passive Smoke Exposure: Yes Smokeless Tobacco: Never Alcohol Use Standard Drinks/Week Comments Never 0 [...] Never 02/09/2020 How often do you attend pentecostalism or anabaptist serv ices? 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 Primary Care - Kirby Herrmann [address] [place] [address] [phone] Kassy Jay MD [address] [place] [place] [phone] 09/25/2025 8:30 AM CERAMIC PRODUCTS SALES ENGINEER Video Visit [facility] Adult Psychiatry [place] [address] [place] [address] [place] [address] Argelia Law NP [address] [place] [address] documented as of this encounter Visit Diagnoses Not on filedocumented in this encounter Care Teams Cottonseed Meat Presser Relationship Specialty Start Date End Date Kassy Jay MD [address] [place] [address] PCP - General Family Practice 12/04/22 documented as of this encounter
--- OUTSIDE RECORDS SUMMARY | 2025-08-02 18:46 | XMS_ITS | Encounter Summary ---
Author Organization [facility] Address [address] [place] [address] Care Team Providers Care Human Resources Manager Name Role Phone Kassy Jay MD Primary Care Provider [phone] Encounter Details Date Type Department Care Team ([facility] Contact Info) Description 1998 Outpatient Historical HIS [facility] DR. MAURICIO Tabor, Darren Ruiz MD NO ADDRESS ON FILE Social History Tobacco Use Types Packs/Day Years Used Date Smoking Tobacco: Never Assessed Comments Unknown Sex and Gender Information Value Date Recorded Sex Assigned at Not on file Legal Sex Female 4:02 AM OPTICIAN Gender Identity Not on file Sexual Orientation Not on file documented as of this encounter Plan of Treatment Upcoming Encounters Date Type Department Care Team ([facility] Contact Info) Description 08/15/2025 1:30 PM OPTICIAN Office Visit [facility] Primary Care - Kirby Herr[place] [address] [place] [address] Kassy Jay MD [address] [place] [phone] 09/25/2025 8:30 AM OPTICIAN Video Visit [facility] Adult Psychiatry [place] [address] [address] [place] [address] Argelia Law NP [address] [address] [place] [address] documented as of this encounter Visit Diagnoses Not on filedocumented in this encounter Additional Health Concerns Infection Onset Date Last Indicated Resolved Time R/O COVID-19 06/02/2021 06/03/2021 06/03/2021 7:34 PM CDT R/O COVID-19 12/22/2022 12/22/2022 12/22/2022 12:2 5 PM CDT R/O COVID-19 09/07/2023 09/07/2023 09/07/2023 9:52 PM OPTICIAN documented as of this encounter Care Teams Human Resources Manager Relationship Specialty Start Date End Date Kassy Jay MD [address] [place] [place] [phone] PCP - General Family Practice 12/04/22 documented as of this encounter
--- OUTSIDE RECORDS SUMMARY | 2025-08-02 18:46 | XMS_ITS | Encounter Summary ---
Author Organization [facility] Address [address] [place] [address] Care Team Providers Care Cotton Puller Name Role Phone Kassy Jay MD Primary Care Provider [phone] Encounter Details Date Type Department Care Team (Late Contact Info) Description 03/02/2000 Outpatient Historical [facility] Pediatrics - [facility] [address] [facility] [address] [place] [address] [place] [address] [place] [address] Social History Tobacco Use Types Packs/Day Years Used Date Smoking Tobacco: Never Assessed Comments Unknown Sex and Gender Information Value Date Recorded Sex Assigned at Not on file Legal Sex Female 4:02 AM DIRECTOR GEOTHERMAL OPERATIONS Gender Identity Not on file Sexual Orientation Not on file documented as of this encounter Plan of Treatment Upcoming Encounters Date Type Department Care Team (Late Contact Info) Description 08/15/2025 1:30 PM DIRECTOR GEOTHERMAL OPERATIONS Office Visit [facility] Primary Care - Kirby Herrmann [address] [place] [phone] Kassy Jay MD [address] [place] [phone] 09/25/2025 8:30 AM DIRECTOR GEOTHERMAL OPERATIONS Video Visit [facility] Adult Psychiatry [place] [address] [address] [place] [address] Argelia Law NP [address] [address] [place] [address] documented as of this encounter Visit Diagnoses Not on filedocumented in this encounter Additional Health Concerns Infection Onset Date Last Indicated Resolved Time R/O COVID-19 06/02/2021 06/03/2021 06/03/2021 7:34 PM CDT R/O COVID-19 12/22/2022 12/22/2022 12/22/2022 12:2 5 PM CDT R/O COVID-19 09/07/2023 09/07/2023 09/07/2023 9:52 PM DIRECTOR GEOTHERMAL OPERATIONS documented as of this encounter Care Teams Cotton Puller Relationship Specialty Start Date End Date Kassy Jay MD [address] [place] [address] [phone] PCP - General Family Practice 12/04/22 documented as of this encounter
--- OUTSIDE RECORDS SUMMARY | 2025-08-02 18:46 | XMS_ITS | Encounter Summary ---
Author Organization [facility] Address [address] [place] [address] Care Team Providers Care Letterer Name Role Phone Kassy Jay MD Primary Care Provider [phone] Encounter Details Date Type Department Care Team (Latest Contact Info) Description 04/13/2002 Outpatient Historical HIS [place] [address] [facility] [address] [place] [address] UNS ASTHMA WOSTATUS ASTHMATICUS (Primary Dx) Social History Tobacco Use Types Packs/Day Years Used Date Smoking Tobacco: Never Assessed Comments Unknown Sex and Gender Information Value Date Recorded Sex Assigned at Not on file Legal Sex Female 4:02 AM PROFILER HAND Gender Identity Not on file Sexual Orientation Not on file documented as of this encounter Plan of Treatment Upcoming Encounters Date Type Department Care Team (Late st Contact Info) Description 08/15/2025 1:30 PM PROFILER HAND Office Visit [facility] Primary Care - [address] [place] [address] Kassy Jay MD [address] [place] [phone] 09/25/2025 8:30 AM PROFILER HAND Video Visit [facility] Adult Psychiatry [address] [address] [place] [address] Argelia LwaARAMIS [address] [address] [place] [address] documented as of this encounter Visit Diagnoses Diagnosis Unspecified asthma(493.90)- Primary Unspecified asthma documented in this encounter Additional Health Concerns Infection Onset Date Last Indicated Resolved Time R/O COVID-19 06/02/2021 06/03/2021 06/03/2021 7:34 PM CDT R/O COVID-19 12/22/2022 12/22/2022 12/22/2022 12:2 5 PM CDT R/O COVID-19 09/07/2023 09/07/2023 09/07/2023 9:52 PM PROFILER HAND documented as of this encounter Care Teams Letterer Relationship Specialty Start Date End Date Kassy Jay MD [address] [place] [phone] PCP - General Family Practice 12/04/22 documented as of this encounter
--- OUTSIDE RECORDS SUMMARY | 2025-08-02 18:46 | XMS_ITS | Encounter Summary ---
Author Organization [facility] Address [address] [place] [address] Care Team Providers Care Cloth Painter Name Role Phone Kassy Jay MD Primary Care Provider [phone] Encounter Details Date Type Department Care Team ([facility] Contact Info) Description 05/21/[address] [facility] Pediatrics - [facility] [address] [place] [address] Garrett Mittal MD [address] [facility] [address] [address] [place] [address] Social History Tobacco Use Types Packs/Day Years Used Date Smoking Tobacco: Never Assessed Comments Unknown Sex and Gender Information Value Date Recorded Sex Assigned at Not on file Legal Sex Female 4:02 AM ORDER PICKER/ASSEMBLER Gender Identity Not on file Sexual Orientation [...] Care Team ([facility] Contact Info) Description 08/15/2025 1:30 PM ORDER PICKER/ASSEMBLER Office Visit [facility] Primary Care - Michael Herrmann [address] [place] [address] Kassy Jay MD [address] [place] [phone] 09/25/2025 8:30 AM ORDER PICKER/ASSEMBLER Video Visit [facility] Adult Psychiatry [place] [address] [address] [place] [address] Argelia Law NP [address] [facility] [address] [place] [address] documented as of this encounter Visit Diagnoses Not on filedocumented in this encounter Additional Health Concerns Infection Onset Date Last Indicated Resolved Time R/O COVID-19 06/02/2021 06/03/2021 06/03/2021 7:34 PM CDT R/O COVID-19 12/22/2022 12/22/2022 12/22/2022 12:2 5 PM CDT R/O COVID-19 09/07/2023 09/07/2023 09/07/2023 9:52 PM ORDER PICKER/ASSEMBLER documented as of this encounter Care Teams Cloth Painter Relationship Specialty Start Date End Date Kassy Jay MD [address] [place] [address] [phone] PCP - General Family Practice 12/04/22 documented as of this encounter
--- OUTSIDE RECORDS SUMMARY | 2025-08-02 18:46 | XMS_ITS | Encounter Summary ---
Author Organization [facility] Address [address] [place] [address] Care Team Providers Care Forming Machine Tender Name Role Phone Kassy Jay MD Primary Care Provider [phone] Encounter Details Date Type Department Care Team (Late Contact Info) Description 1998 Outpatient Historical [facility] Pediatrics - [facility] [address] [address] [facility] [address] [place] [address] Darren Tabor MD NO ADDRESS ON FILE Social History Tobacco Use Types Packs/Day Years Used Date Smoking Tobacco: Never Assessed Comments Unknown Sex and Gender Information Value Date Recorded Sex Assigned at Not on file Legal Sex Female 4:02 AM FRUIT HARVESTER MACHINE OPERATOR Gender Identity Not on file Sexual Orientation Not on file documented as of this encounter Plan of Treatment Upcoming Encounters Date Type Department Care Team (Late Contact Info) Description 08/15/2025 1:30 PM FRUIT HARVESTER MACHINE OPERATOR Office Visit [facility] Primary Care - Kirby Herrmann [address] [phone] Kassy Jay MD [address] [place] [phone] 09/25/2025 8:30 AM FRUIT HARVESTER MACHINE OPERATOR Video Visit [facility] Adult Psychiatry [address] [phone] Argelia Law, [place] [address] [address] [place] [address] documented as of this encounter Visit Diagnoses Not on filedocumented in this encounter Additional Health Concerns Infection Onset Date Last Indicated Resolved Time R/O COVID-19 06/02/2021 06/03/2021 06/03/2021 7:34 PM CDT R/O COVID-19 12/22/2022 12/22/2022 12/22/2022 12:2 5 PM CDT R/O COVID-19 09/07/2023 09/07/2023 09/07/2023 9:52 PM FRUIT HARVESTER MACHINE OPERATOR documented as of this encounter Care Teams Forming Machine Tender Relationship Specialty Start Date End Date Kassy Jay MD [address] [place] [phone] PCP - General Family Practice 12/04/22 documented as of this encounter
--- OUTSIDE RECORDS SUMMARY | 2025-08-02 18:46 | XMS_ITS | Encounter Summary ---
Author Organization [facility] Address [address] [place] [address] Care Team Providers Care Career Services Coordinator Name Role Phone Kassy Jay MD Primary Care Provider [phone] Encounter Details Date Type Department Care Team (Late st Contact Info) Description 01/21/2006 Orders Only [facility] Pediatrics - [facility] [address] [facility] [address] [place] [address] [place] [address] [facility] [address] [place] [address] Social History Tobacco Use Types Packs/Day Years Used Date Smoking Tobacco: Never Assessed Comments Unknown Sex and Gender Information Value Date Recorded Sex Assigned at Not on file Legal Sex Female 4:02 AM MINERAL ECONOMIST Gender Identity Not on file Sexual [...] NEW PRESCRIPTION, 01/21/2006. LAB ORDERS: Order number: [id number] Test Ordered: RAPID STREP [id number] RETURN VISIT/GUIDANCE: Instructed to:Take OTC meds as directed Call office if concerned or if child is no better Return if symptoms are not resolved. Electronically Signed by: Lacie Malik M.D. on Saturday, January 21, 2006 documented in this encounter Plan of Treatment Upcoming Encounters Date Type Department Care Team (Late st Contact Info) Description 08/15/2025 1:30 PM MINERAL ECONOMIST Office Visit [facility] Primary Care - Kirby Herrmann [address] [place] [address] [address] Kassy Jay MD [address] [place] [place] [place] [phone] 09/25/2025 8:30 AM MINERAL ECONOMIST Video Visit [facility] Adult Psychiatry [place] [address] [place] [address] Argelia Law NP [address] [place] [address] documented as of this encounter Visit Diagnoses Not on filedocumented in this encounter Additional Health Concerns Infection Onset Date Last Indicated Resolved Time R/O COVID-19 06/02/2021 06/03/2021 06/03/2021 7:34 PM CDT R/O COVID-19 12/22/2022 12/22/2022 12/22/2022 12:2 5 PM CDT R/O COVID-19 09/07/2023 09/07/2023 09/07/2023 9:52 PM MINERAL ECONOMIST documented as of this encounter Care Teams Career Services Coordinator Relationship Specialty Start Date End Date Kassy Jay MD [address] [place] [place] [address] PCP - General Family Practice 12/04/22 documented as of this encounter
--- OUTSIDE RECORDS SUMMARY | 2025-08-02 18:46 | XMS_ITS | Encounter Summary ---
Author Organization [facility] Address [address] [place] [address] Care Team Providers Care Camp Tender Name Role Phone Kassy Jay MD Primary Care Provider [phone] Encounter Details Date Type Department Care Team (Late Contact Info) Description 05/16/2006 Outpatient Historical [facility] Pediatrics - [facility] [address] [facility] [address] [place] [address] [place] [address] [facility] [address] [place] [address] Social History Tobacco Use Types Packs/Day Years Used Date Smoking Tobacco: Never Assessed Comments Unknown Sex and Gender Information Value Date Recorded Sex Assigned at Not on file Legal Sex Female 4:02 AM BUILDING SUPPLIES SALESPERSON RETAIL Gender Identity Not on file Sexual Orientation Not on file documented as of this encounter Plan of Treatment Upcoming Encounters Date Type Department Care Team (Late Contact Info) Description 08/15/2025 1:30 PM BUILDING SUPPLIES SALESPERSON RETAIL Office Visit [facility] Primary Care - Kirby Herrmann [address] [place] [phone] Kassy Jay MD [address] [place] [place] [phone] 09/25/2025 8:30 AM BUILDING SUPPLIES SALESPERSON RETAIL Video Visit [facility] Adult Psychiatry [place] [address] [address] [place] [address] Argelia Law NP [address] [address] [place] [address] documented as of this encounter Visit Diagnoses Not on filedocumented in this encounter Additional Health Concerns Infection Onset Date Last Indicated Resolved Time R/O COVID-19 06/02/2021 06/03/2021 06/03/2021 7:34 PM CDT R/O COVID-19 12/22/2022 12/22/2022 12/22/2022 12:2 5 PM CDT R/O COVID-19 09/07/2023 09/07/2023 09/07/2023 9:52 PM BUILDING SUPPLIES SALESPERSON RETAIL documented as of this encounter Care Teams Camp Tender Relationship Specialty Start Date End Date Kassy Jay MD [address] [place] [place] [address] [phone] PCP - General Family Practice 12/04/22 documented as of this encounter
--- OUTSIDE RECORDS SUMMARY | 2025-08-02 18:46 | XMS_ITS | Encounter Summary ---
Author Organization [facility] Address [address] [place] [address] Care Team Providers Care Labeling Associate Name Role Phone Kassy Jay MD Primary Care Provider [phone] Encounter Details Date Type Department Care Team (Late Contact Info) Description 04/06/1999 Outpatient Historical [facility] Pediatrics - [facility] [address] [facility] [address] [place] [address] Darren Tabor MD NO ADDRESS ON FILE Social History Tobacco Use Types Packs/Day Years Used Date Smoking Tobacco: Never Assessed Comments Unknown Sex and Gender Information Value Date Recorded Sex Assigned at Not on file Legal Sex Female 4:[address] Gender Identity Not on file Sexual Orientation Not on file documented as of this encounter Plan of Treatment Upcoming Encounters Date Type Department Care Team (Late Contact Info) Description 08/15/2025 1:[address] Office Visit [facility] Primary Care - Kirby Herrmann [address] [phone] Kassy Jay MD [address] [place] [address] [place] [phone] 09/25/2025 8:[address] Video Visit [facility] Adult Psychiatry [address] [phone] Argelia Law, [place] [address] [address] [place] [address] documented as of this encounter Visit Diagnoses Not on filedocumented in this encounter Additional Health Concerns Infection Onset Date Last Indicated Resolved Time R/O COVID-19 06/02/2021 06/03/2021 06/03/2021 7:34 PM CDT R/O COVID-19 12/22/2022 12/22/2022 12/22/2022 12:2 5 PM CDT R/O COVID-19 09/07/2023 09/07/2023 09/07/2023 9:[address] documented as of this encounter Care Teams Labeling Associate Relationship Specialty Start Date End Date Kassy Jay MD [address] [place] [phone] PCP - General Family Practice 12/04/22 documented as of this encounter
--- OUTSIDE RECORDS SUMMARY | 2025-08-02 18:46 | XMS_ITS | Encounter Summary ---
Author Organization [facility] Address [address] [place] [address] Care Team Providers Care Dynamometer Tester Engine Name Role Phone Kassy Jay MD Primary Care Provider [phone] Encounter Details Date Type Department Care Team (Late Contact Info) Description 1998 Outpatient Historical HIS MMG DR. MAURICIO Yadav, Alley Cid MD [address] [place] [address] Social History Tobacco Use Types Packs/Day Years Used Date Smoking Tobacco: Never Assessed Comments Unknown Sex and Gender Information Value Date Recorded Sex Assigned at Not on file Legal Sex Female 4:02 AM METAL MILLING MACHINE OPERATOR Gender Identity Not on file Sexual Orientation Not on file documented as of this encounter Plan of Treatment Upcoming Encounters Date Type Department Care Team (Late Contact Info) Description 08/15/2025 1:30 PM METAL MILLING MACHINE OPERATOR Office Visit [facility] Primary Care - Kirby Herrmann [address] [phone] Kassy Jay MD [address] [place] [place] [phone] 09/25/2025 8:30 AM METAL MILLING MACHINE OPERATOR Video Visit [facility] Adult Psychiatry [address] [address] [place] [phone] Argelia Law, ARAM[place] [address] [address] [place] [address] documented as of this encounter Visit Diagnoses Not on filedocumented in this encounter Additional Health Concerns Infection Onset Date Last Indicated Resolved Time R/O COVID-19 06/02/2021 06/03/2021 06/03/2021 7:34 PM CDT R/O COVID-19 12/22/2022 12/22/2022 12/22/2022 12:2 5 PM CDT R/O COVID-19 09/07/2023 09/07/2023 09/07/2023 9:52 PM METAL MILLING MACHINE OPERATOR documented as of this encounter Care Teams Dynamometer Tester Engine Relationship Specialty Start Date End Date Kassy Jay MD [address] [place] [phone] PCP - General Family Practice 12/04/22 documented as of this encounter
--- OUTSIDE RECORDS SUMMARY | 2025-08-02 18:46 | XMS_ITS | Encounter Summary ---
Author Organization [facility] Address [address] [place] [address] Care Team Providers Care Residence Leasing Agent Name Role Phone Kassy Jay MD Primary Care Provider [phone] Encounter Details Date Type Department Care Team (Late st Contact Info) Description 05/16/2006 Orders Only [facility] Pediatrics - [facility] [address] [facility] [address] [place] [address] [place] [address] [facility] [address] [place] [address] Social History Tobacco Use Types Packs/Day Years Used Date Smoking Tobacco: Never Assessed Comments Unknown Sex and Gender Information Value Date Recorded Sex Assigned at Not on file Legal Sex Female 4:02 AM SANITIZER Gender Identity Not on file Sexual Orientation [...] NEW PRESCRIPTION, 05/16/2006. LAB ORDERS: Order number: [id number] Test Ordered: STREPTOCOCCUS, GROUP A CULTURE [id number] Order number: [id number] Test Ordered: RAPID STREP [id number] RETURN VISIT/GUIDANCE: Instructed to:Take OTC meds as directed Call office if concerned or if child is no better Return if symptoms are not resolved. Call thursday for results Electronically Signed by: Lacie Malik M.D. on Tuesday, May 16, 2006 documented in this encounter Plan of Treatment Upcoming Encounters Date Type Department Care Team (Late st Contact Info) Description 08/15/2025 1:30 PM SANITIZER Office Visit [facility] Primary Care - Kirby Herrmann [address] [place] [address] [address] Kassy Jay MD [address] [place] [place] [address] 09/25/2025 8:30 AM SANITIZER Video Visit [facility] Adult Psychiatry [place] [address] [place] [address] Argelia Law NP [address] [address] documented as of this encounter Visit Diagnoses Not on filedocumented in this encounter Additional Health Concerns Infection Onset Date Last Indicated Resolved Time R/O COVID-19 06/02/2021 06/03/2021 06/03/2021 7:34 PM CDT R/O COVID-19 12/22/2022 12/22/2022 12/22/2022 12:2 5 PM CDT R/O COVID-19 09/07/2023 09/07/2023 09/07/2023 9:52 PM SANITIZER documented as of this encounter Care Teams Residence Leasing Agent Relationship Specialty Start Date End Date Kassy Jay MD [address] [place] [phone] PCP - General Family Practice 12/04/22 documented as of this encounter
--- OUTSIDE RECORDS SUMMARY | 2025-08-02 18:46 | XMS_ITS | Encounter Summary ---
Author Organization [facility] Address [address] [place] [address] Care Team Providers Care Cloth Brushing And Sueding Supervisor Name Role Phone Kassy Jay MD Primary Care Provider [phone] Encounter Details Date Type Department Care Team (Late Contact Info) Description 09/30/2002 Outpatient Historical [facility] Pediatrics - [facility] [address] [place] [address] [place] [address] [facility] [address] [place] [address] Social History Tobacco Use Types Packs/Day Years Used Date Smoking Tobacco: Never Assessed Comments Unknown Sex and Gender Information Value Date Recorded Sex Assigned at Not on file Legal Sex Female 4:02 AM ANTIQUE FURNITURE REPRODUCER Gender Identity Not on file Sexual Orientation Not on file documented as of this encounter Plan of Treatment Upcoming Encounters Date Type Department Care Team (Late Contact Info) Description 08/15/2025 1:30 PM ANTIQUE FURNITURE REPRODUCER Office Visit [facility] Primary Care - Kirby Herrmann [address] [place] [address] [phone] Kassy Jay MD [address] [phone] 09/25/2025 8:30 AM ANTIQUE FURNITURE REPRODUCER Video Visit [facility] Adult Psychiatry [place] [address] [address] [place] [phone] Argelia Law NP [address] [address] [place] [address] documented as of this encounter Visit Diagnoses Not on filedocumented in this encounter Additional Health Concerns Infection Onset Date Last Indicated Resolved Time R/O COVID-19 06/02/2021 06/03/2021 06/03/2021 7:34 PM CDT R/O COVID-19 12/22/2022 12/22/2022 12/22/2022 12:2 5 PM CDT R/O COVID-19 09/07/2023 09/07/2023 09/07/2023 9:52 PM ANTIQUE FURNITURE REPRODUCER documented as of this encounter Care Teams Cloth Brushing And Sueding Supervisor Relationship Specialty Start Date End Date Kassy Jay MD [address] [place] [address] [address] PCP - General Family Practice 12/04/22 documented as of this encounter
--- OUTSIDE RECORDS SUMMARY | 2025-08-02 18:46 | XMS_ITS | Encounter Summary ---
Author Organization [facility] Address [address] [place] [address] Care Team Providers Care Excavating Machine Operator Name Role Phone Kassy Jay MD Primary Care Provider [phone] Encounter Details Date Type Department Care Team (Late Contact Info) Description 05/16/[address] [facility] Pediatrics - [facility] [address] [place] [address] [place] [address] [place] [address] Social History Tobacco Use Types Packs/Day Years Used Date Smoking Tobacco: Never Assessed Comments Unknown Sex and Gender Information Value Date Recorded Sex Assigned at Not on file Legal Sex Female 4:02 AM RADIATOR SPECIALIST Gender Identity Not on file Sexual Orientation Not on file documented as of this encounter Plan of Treatment Upcoming Encounters Date Type Department Care Team (Late Contact Info) Description 08/15/2025 1:30 PM RADIATOR SPECIALIST Office Visit [facility] Primary Care - Kirby Herr[address] [place] [phone] Kassy Jay MD [address] [place] [phone] 09/25/2025 8:30 AM RADIATOR SPECIALIST Video Visit [facility] Adult Psychiatry Varinder [address] [address] [place] [address] Argelia Law NP [address] [address] [place] [address] documented as of this encounter Visit Diagnoses Not on filedocumented in this encounter Additional Health Concerns Infection Onset Date Last Indicated Resolved Time R/O COVID-19 06/02/2021 06/03/2021 06/03/2021 7:34 PM CDT R/O COVID-19 12/22/2022 12/22/2022 12/22/2022 12:2 5 PM CDT R/O COVID-19 09/07/2023 09/07/2023 09/07/2023 9:52 PM RADIATOR SPECIALIST documented as of this encounter Care Teams Excavating Machine Operator Relationship Specialty Start Date End Date Kassy Jay MD [address] [place] [address] PCP - General Family Practice 12/04/22 documented as of this encounter
--- OUTSIDE RECORDS SUMMARY | 2025-08-02 18:46 | XMS_ITS | Encounter Summary ---
Author Organization [facility] Address [address] [place] [address] Care Team Providers Care Hoop Expander Name Role Phone Kassy Jay MD Primary Care Provider [phone] Encounter Details Date Type Department Care Team (Late Contact Info) Description 06/15/2000 Outpatient Historical [facility] Pediatrics - [facility] [address] [facility] [address] [place] [address] [place] [address] [address] [place] [address] Social History Tobacco Use Types Packs/Day Years Used Date Smoking Tobacco: Never Assessed Comments Unknown Sex and Gender Information Value Date Recorded Sex Assigned at Not on file Legal Sex Female 4:02 AM VASCULAR TECHNICIAN Gender Identity Not on file Sexual Orientation Not on file documented as of this encounter Plan of Treatment Upcoming Encounters Date Type Department Care Team (Late Contact Info) Description 08/15/2025 1:30 PM VASCULAR TECHNICIAN Office Visit [facility] Primary Care - Kirby Herrmann [address] [place] [address] [address] [phone] Kassy Jay MD [address] [place] [phone] 09/25/2025 8:30 AM VASCULAR TECHNICIAN Video Visit [facility] Adult Psychiatry Varinder [address] [address] [place] [address] Argelia Law NP [address] [address] [place] [address] documented as of this encounter Visit Diagnoses Not on filedocumented in this encounter Additional Health Concerns Infection Onset Date Last Indicated Resolved Time R/O COVID-19 06/02/2021 06/03/2021 06/03/2021 7:34 PM CDT R/O COVID-19 12/22/2022 12/22/2022 12/22/2022 12:2 5 PM CDT R/O COVID-19 09/07/2023 09/07/2023 09/07/2023 9:52 PM VASCULAR TECHNICIAN documented as of this encounter Care Teams Hoop Expander Relationship Specialty Start Date End Date Kassy Jay MD [address] [place] [address] [phone] PCP - General Family Practice 12/04/22 documented as of this encounter
--- OUTSIDE RECORDS SUMMARY | 2025-08-02 18:46 | XMS_ITS | Encounter Summary ---
Author Organization [facility] Address [address] [place] [address] Care Team Providers Care Casino Controller Name Role Phone Kassy Jay MD Primary Care Provider [phone] Encounter Details Date Type Department Care Team (Late Contact Info) Description 04/13/2002 Outpatient Historical [facility] Department of Peds at [address] [phone] Diandra Brown MD [address] [place] [address] Social History Tobacco Use Types Packs/Day Years Used Date Smoking Tobacco: Never Assessed Comments Unknown Sex and Gender Information Value Date Recorded Sex Assigned at Not on file Legal Sex Female 4:02 AM REGULATORY ADMINISTRATOR Gender Identity Not on file Sexual Orientation Not on file documented as of this encounter Plan of Treatment Upcoming Encounters Date Type Department Care Team (Late Contact Info) Description 08/15/2025 1:30 PM REGULATORY ADMINISTRATOR Office Visit [facility] Primary Care - [address] [place] [phone] Kassy Jay MD [address] [place] [phone] 09/25/2025 8:30 AM REGULATORY ADMINISTRATOR Video Visit [facility] Adult Psychiatry Varinder [address] [address] [place] [phone] Argelia Law NP [address] [address] [place] [address] documented as of this encounter Visit Diagnoses Not on filedocumented in this encounter Additional Health Concerns Infection Onset Date Last Indicated Resolved Time R/O COVID-19 06/02/2021 06/03/2021 06/03/2021 7:34 PM CDT R/O COVID-19 12/22/2022 12/22/2022 12/22/2022 12:2 5 PM CDT R/O COVID-19 09/07/2023 09/07/2023 09/07/2023 9:52 PM REGULATORY ADMINISTRATOR documented as of this encounter Care Teams Casino Controller Relationship Specialty Start Date End Date Kassy Jay MD [address] [place] [address] PCP - General Family Practice 12/04/22 documented as of this encounter
--- OUTSIDE RECORDS SUMMARY | 2025-08-02 18:46 | XMS_ITS | Encounter Summary ---
Author Organization [facility] Address [address] [place] [address] Care Team Providers Care Steam Turbine Operator Name Role Phone Kassy Jay MD Primary Care Provider [phone] Encounter Details Date Type Department Care Team (Late Contact Info) Description 1998 Outpatient Historical [facility] Pediatrics - [facility] [address] [place] [address] Darren Tabor MD NO ADDRESS ON FILE Social History Tobacco Use Types Packs/Day Years Used Date Smoking Tobacco: Never Assessed Comments Unknown Sex and Gender Information Value Date Recorded Sex Assigned at Not on file Legal Sex Female 4:02 AM PROPAGATOR Gender Identity Not on file Sexual Orientation Not on file documented as of this encounter Plan of Treatment Upcoming Encounters Date Type Department Care Team (Late Contact Info) Description 08/15/2025 1:30 PM PROPAGATOR Office Visit [facility] Primary Care - Kirby Herrmann [address] [place] [phone] Kassy Jay MD [address] [place] [address] [phone] 09/25/2025 8:30 AM PROPAGATOR Video Visit [facility] [address]iatry [address] [phone] Argelia Law, [place] [address] [address] [address] [address] [address] documented as of this encounter Visit Diagnoses Not on filedocumented in this encounter Additional Health Concerns Infection Onset Date Last Indicated Resolved Time R/O COVID-19 06/02/2021 06/03/2021 06/03/2021 7:34 PM CDT R/O COVID-19 12/22/2022 12/22/2022 12/22/2022 12:2 5 PM CDT R/O COVID-19 09/07/2023 09/07/2023 09/07/2023 9:52 PM PROPAGATOR documented as of this encounter Care Teams Steam Turbine Operator Relationship Specialty Start Date End Date Kassy Jay MD [address] [phone] PCP - General Family Practice 12/04/22 documented as of this encounter
--- OUTSIDE RECORDS SUMMARY | 2025-08-02 18:46 | XMS_ITS | Encounter Summary ---
Author Organization [facility] Address [address] [place] [address] Care Team Providers Care Director Supply Chain Name Role Phone Kassy Jay MD Primary Care Provider [phone] Encounter Details Date Type Department Care Team ([facility] Contact Info) Description 07/29/2005 Outpatient Historical [facility]3] Pediatrics - [facility] [address] [facility] [facility] [address] [place] [address] [place] [address] [facility] [address] [place] [address] Social History Tobacco Use Types Packs/Day Years Used Date Smoking Tobacco: Never Assessed Comments Unknown Sex and Gender Information Value Date Recorded Sex Assigned at Not on file Legal Sex Female 4:02 AM SUPERVISOR COMPOSING ROOM Gender Identity Not on file Sexual Orientation Not on file documented as of this encounter Last Filed Vital Signs Vital Sign Reading Time Taken Comments Blood Pressure - - Pulse 64 07/29/2005 3:45 PM SUPERVISOR COMPOSING ROOM Temperature 37.1 C (98.7 F) 07/29/2005 3:45 PM SUPERVISOR COMPOSING ROOM Respiratory Rate 32 07/29/2005 3:45 PM SUPERVISOR COMPOSING ROOM Oxygen Saturation - - Inhaled Oxygen Concentration - - Weight 25.2 kg (55 lb 8 oz) 07/29/2005 3:[address] Height - - Body Mass Index - - documented in this encounter Plan of Treatment Upcoming Encounters Date Type Department Care Team (Late Contact Info) Description 08/15/2025 1:30 PM SUPERVISOR COMPOSING ROOM Office Visit [facility]3] Primary Care - Kirby Herrmann [address] [place] [address] [phone] Kassy Jay MD [address] [place] [place] [phone] 09/25/2025 8:30 AM SUPERVISOR COMPOSING ROOM Video Visit [facility]3] Adult Psychiatry Varinder [address] [address] [place] [address] Argelia Law NP [address] [address] [place] [address] documented as of this encounter Visit Diagnoses Not on filedocumented in this encounter Additional Health Concerns Infection Onset Date Last Indicated Resolved Time R/O COVID-19 06/02/2021 06/03/2021 06/03/2021 7:34 PM CDT R/O COVID-19 12/22/2022 12/22/2022 12/22/2022 12:2 5 PM CDT R/O COVID-19 09/07/2023 09/07/2023 09/07/2023 9:52 PM SUPERVISOR COMPOSING ROOM documented as of this encounter Care Teams Director Supply Chain Relationship Specialty Start Date End Date Kassy Jay MD [address] [place] [phone] PCP - General Family Practice 12/04/22 documented as of this encounter
--- OUTSIDE RECORDS SUMMARY | 2025-08-02 18:46 | XMS_ITS | Encounter Summary ---
Author Organization [facility] Address [address] [place] [address] Care Team Providers Care Base Loader Name Role Phone Kassy Jay MD Primary Care Provider [phone] Encounter Details Date Type Department Care Team (Late Contact Info) Description 08/16/1999 Outpatient Historical [facility] Pediatrics - [facility] [address] [facility] [address] [place] [address] Darren Tabor MD NO ADDRESS ON FILE Social History Tobacco Use Types Packs/Day Years Used Date Smoking Tobacco: Never Assessed Comments Unknown Sex and Gender Information Value Date Recorded Sex Assigned at Not on file Legal Sex Female 4:02 AM FUR REPAIR INSPECTOR Gender Identity Not on file Sexual Orientation Not on file documented as of this encounter Plan of Treatment Upcoming Encounters Date Type Department Care Team (Late Contact Info) Description 08/15/2025 1:30 PM FUR REPAIR INSPECTOR Office Visit [facility] Primary Care - Kirby Hermrann [address] [place] [address] [phone] Kassy Jay MD [address] [place] [phone] 09/25/2025 8:30 AM FUR REPAIR INSPECTOR Video Visit [facility] [address]iatry [address] [phone] Argelia Law, [place] [address] [address] [place] [address] documented as of this encounter Visit Diagnoses Not on filedocumented in this encounter Additional Health Concerns Infection Onset Date Last Indicated Resolved Time R/O COVID-19 06/02/2021 06/03/2021 06/03/2021 7:34 PM CDT R/O COVID-19 12/22/2022 12/22/2022 12/22/2022 12:2 5 PM CDT R/O COVID-19 09/07/2023 09/07/2023 09/07/2023 9:52 PM FUR REPAIR INSPECTOR documented as of this encounter Care Teams Base Loader Relationship Specialty Start Date End Date Kassy Jay MD [address] [phone] PCP - General Family Practice 12/04/22 documented as of this encounter
--- OUTSIDE RECORDS SUMMARY | 2025-08-02 18:46 | XMS_ITS | Encounter Summary ---
Author Organization [facility] Address [address] [place] [address] Care Team Providers Care Case Mgr Name Role Phone Kassy Jay MD Primary Care Provider [phone] Encounter Details Date Type Department Care Team (Late Contact Info) Description 11/20/1999 Outpatient Historical [facility] Pediatrics - [facility] [address] [facility] [address] [place] [address] [place] [address] [place] [address] Social History Tobacco Use Types Packs/Day Years Used Date Smoking Tobacco: Never Assessed Comments Unknown Sex and Gender Information Value Date Recorded Sex Assigned at Not on file Legal Sex Female 4:02 AM TEACHER MUSIC Gender Identity Not on file Sexual Orientation Not on file documented as of this encounter Plan of Treatment Upcoming Encounters Date Type Department Care Team (Late Contact Info) Description 08/15/2025 1:30 PM TEACHER MUSIC Office Visit [facility] Primary Care - Kirby Herrmann [address] [place] [address] [address] [phone] Kassy Jay MD [address] [address] [phone] 09/25/2025 8:30 AM TEACHER MUSIC Video Visit [facility] Adult Psychiatry Varinder [address] [address] [place] [phone] Argelia Law NP [address] [address] [place] [address] documented as of this encounter Visit Diagnoses Not on filedocumented in this encounter Additional Health Concerns Infection Onset Date Last Indicated Resolved Time R/O COVID-19 06/02/2021 06/03/2021 06/03/2021 7:34 PM CDT R/O COVID-19 12/22/2022 12/22/2022 12/22/2022 12:2 5 PM CDT R/O COVID-19 09/07/2023 09/07/2023 09/07/2023 9:52 PM TEACHER MUSIC documented as of this encounter Care Teams Case Mgr Relationship Specialty Start Date End Date Kassy Jay MD [address] [place] [address] [phone] PCP - General Family Practice 12/04/22 documented as of this encounter
--- OUTSIDE RECORDS SUMMARY | 2025-08-02 18:46 | XMS_ITS | Encounter Summary ---
Author Organization [facility] Address [address] [place] [address] Care Team Providers Care Field Underwriter Name Role Phone Kassy Jay MD Primary Care Provider [phone] Encounter Details Date Type Department Care Team (Late Contact Info) Description 05/06/2002 Outpatient Historical [facility]3] [facility] [address] [address] Gustavo Sims Social History Tobacco Use Types Packs/Day Years Used Date Smoking Tobacco: Never Assessed Comments Unknown Sex and Gender Information Value Date Recorded Sex Assigned at Not on file Legal Sex Female 4:02 AM AGRICULTURE INTERN Gender Identity Not on file Sexual Orientation Not on file documented as of this encounter Plan of Treatment Upcoming Encounters Date Type Department Care Team (Late Contact Info) Description 08/15/2025 1:30 PM AGRICULTURE INTERN Office Visit [facility]3] [place] [place] [phone] Kassy Jay MD [address] [place] [phone] 09/25/2025 8:30 AM AGRICULTURE INTERN Video Visit [facility]3] Adult Psychiatry [address] [address] [address] [place] [phone] [place], Argelia Lopez NP [address] [address] [place] [address] documented as of this encounter Visit Diagnoses Not on filedocumented in this encounter Additional Health Concerns Infection Onset Date Last Indicated Resolved Time R/O COVID-19 06/02/2021 06/03/2021 06/03/2021 7:34 PM CDT R/O COVID-19 12/22/2022 12/22/2022 12/22/2022 12:2 5 PM CDT R/O COVID-19 09/07/2023 09/07/2023 09/07/2023 9:52 PM AGRICULTURE INTERN documented as of this encounter Care Teams Field Underwriter Relationship Specialty Start Date End Date Kassy Jay MD [address] [facility] [address] [place] [phone] PCP - General Family Practice 12/04/22 documented as of this encounter
--- OUTSIDE RECORDS SUMMARY | 2025-08-02 18:46 | XMS_ITS | Encounter Summary ---
Author Organization [facility] Address [address] [place] [address] Care Team Providers Care Getterer Name Role Phone Kassy Jay MD Primary Care Provider [phone] Encounter Details Date Type Department Care Team (Late Contact Info) Description 07/06/[address] [facility] Pediatrics - [facility] [address] [address] [facility] [address] [place] [address] [place] [address] [place] [address] Social History Tobacco Use Types Packs/Day Years Used Date Smoking Tobacco: Never Assessed Comments Unknown Sex and Gender Information Value Date Recorded Sex Assigned at Not on file Legal Sex Female 4:02 AM CAREER TECHNOLOGY TEACHER Gender Identity Not on file Sexual Orientation Not on file documented as of this encounter Plan of Treatment Upcoming Encounters Date Type Department Care Team (Late Contact Info) Description 08/15/2025 1:30 PM CAREER TECHNOLOGY TEACHER Office Visit [facility] Primary Care - Kirby Herrmann [address] [place] [address] [phone] Kassy Jay MD [address] [place] [phone] 09/25/2025 8:30 AM CAREER TECHNOLOGY TEACHER Video Visit [facility] Adult Psychiatry Varinder [address] [address] [place] [address] [phone] Argelia Law NP [address] [address] [place] [address] documented as of this encounter Visit Diagnoses Not on filedocumented in this encounter Additional Health Concerns Infection Onset Date Last Indicated Resolved Time R/O COVID-19 06/02/2021 06/03/2021 06/03/2021 7:34 PM CDT R/O COVID-19 12/22/2022 12/22/2022 12/22/2022 12:2 5 PM CDT R/O COVID-19 09/07/2023 09/07/2023 09/07/2023 9:52 PM CAREER TECHNOLOGY TEACHER documented as of this encounter Care Teams Getterer Relationship Specialty Start Date End Date Kassy Jay MD [address] [place] [address] [phone] PCP - General Family Practice 12/04/22 documented as of this encounter
--- OUTSIDE RECORDS SUMMARY | 2025-08-02 18:46 | XMS_ITS | Encounter Summary ---
Author Organization [facility] Address [address] [place] [address] Care Team Providers Care Software Asset Manager Name Role Phone Kassy Jay MD Primary Care Provider Encounter Details Date Type Department Care Team (Late Contact Info) Description 01/01/2006 Outpatient Historical [facility] [address] [facility] [address] [address] Gustavo Sims Social History Tobacco Use Types Packs/Day Years Used Date Smoking Tobacco: Never Assessed Comments Unknown Sex and Gender Information Value Date Recorded Sex Assigned at Not on file Legal Sex Female 4:02 AM MANAGER RADIATION Gender Identity Not on file Sexual Orientation Not on file documented as of this encounter Plan of Treatment Upcoming Encounters Date Type Department Care Team (Late Contact Info) Description 08/15/2025 1:30 PM MANAGER RADIATION Office Visit [facility] Primary [place] [phone] Kassy Jay MD [address] [place] [address] 09/25/2025 8:30 AM MANAGER RADIATION Video Visit [facility] Adult Psychiatry [address] [address] [address] [phone] [place], Argelia Lopez NP [address] [address] [place] [address] documented as of this encounter Visit Diagnoses Not on filedocumented in this encounter Additional Health Concerns Infection Onset Date Last Indicated Resolved Time R/O COVID-19 06/02/2021 06/03/2021 06/03/2021 7:34 PM CDT R/O COVID-19 12/22/2022 12/22/2022 12/22/2022 12:2 5 PM CDT R/O COVID-19 09/07/2023 09/07/2023 09/07/2023 9:52 PM MANAGER RADIATION documented as of this encounter Care Teams Software Asset Manager Relationship Specialty Start Date End Date Kassy Jay MD [address] [facility] [address] [phone] PCP - General Family Practice 12/04/22 documented as of this encounter
--- OUTSIDE RECORDS SUMMARY | 2025-08-02 18:46 | XMS_ITS | Encounter Summary ---
Author Organization [facility] Address [address] [place] [address] Care Team Providers Care Decision Support Analyst Name Role Phone Kassy Jay MD Primary Care Provider [phone] Encounter Details Date Type Department Care Team (Late Contact Info) Description 03/15/2002 Outpatient Historical [facility] Pediatrics - [facility] [address] [address] [facility] [address] [address] [place] [address] [place] [address] [facility] [facility] [address] [place] [address] Social History Tobacco Use Types Packs/Day Years Used Date Smoking Tobacco: Never Assessed Comments Unknown Sex and Gender Information Value Date Recorded Sex Assigned at Not on file Legal Sex Female 4:02 AM VOCATIONAL NURSE LVN Gender Identity Not on file Sexual Orientation Not on file documented as of this encounter Plan of Treatment Upcoming Encounters Date Type Department Care Team (Late Contact Info) Description 08/15/2025 1:30 PM VOCATIONAL NURSE LVN Office Visit [facility] Primary Care - Kirby Herrmann [address] [place] [address] [address] [phone] Kassy Jay MD [address] [place] [phone] 09/25/2025 8:30 AM VOCATIONAL NURSE LVN Video Visit [facility] Adult Psychiatry Varinder [address] [address] [address] [phone] Argelia Law NP [address] [address] [place] [address] documented as of this encounter Visit Diagnoses Not on filedocumented in this encounter Additional Health Concerns Infection Onset Date Last Indicated Resolved Time R/O COVID-19 06/02/2021 06/03/2021 06/03/2021 7:34 PM CDT R/O COVID-19 12/22/2022 12/22/2022 12/22/2022 12:2 5 PM CDT R/O COVID-19 09/07/2023 09/07/2023 09/07/2023 9:52 PM VOCATIONAL NURSE LVN documented as of this encounter Care Teams Decision Support Analyst Relationship Specialty Start Date End Date Kassy Jay MD [address] [place] [phone] PCP - General Family Practice 12/04/22 documented as of this encounter
--- OUTSIDE RECORDS SUMMARY | 2025-08-02 18:46 | XMS_ITS | Encounter Summary ---
Author Organization [facility] Address [address] [place] [address] Care Team Providers Care Concrete Paving Supervisor Name Role Phone Kassy Jay MD Primary Care Provider Encounter Details Date Type Department Care Team (Late Contact Info) Description 01/21/2006 Outpatient Historical [facility] Pediatrics - [facility] [address] [place] [address] [place] [address] [address] [place] [address] Social History Tobacco Use Types Packs/Day Years Used Date Smoking Tobacco: Never Assessed Comments Unknown Sex and Gender Information Value Date Recorded Sex Assigned at Not on file Legal Sex Female 4:02 AM PAPER NOVELTY MAKER Gender Identity Not on file Sexual Orientation Not on file documented as of this encounter Plan of Treatment Upcoming Encounters Date Type Department Care Team (Late Contact Info) Description 08/15/2025 1:30 PM PAPER NOVELTY MAKER Office Visit [facility] Primary Care - Kirby Herr[place] [address] [phone] Kassy Jay MD [address] [place] [place] [phone] 09/25/2025 8:30 AM PAPER NOVELTY MAKER Video Visit [facility] Adult Psychiatry [place] [address] [address] [place] [address] Argelia Law NP [address] [address] [place] [address] documented as of this encounter Visit Diagnoses Not on filedocumented in this encounter Additional Health Concerns Infection Onset Date Last Indicated Resolved Time R/O COVID-19 06/02/2021 06/03/2021 06/03/2021 7:34 PM CDT R/O COVID-19 12/22/2022 12/22/2022 12/22/2022 12:2 5 PM CDT R/O COVID-19 09/07/2023 09/07/2023 09/07/2023 9:52 PM PAPER NOVELTY MAKER documented as of this encounter Care Teams Concrete Paving Supervisor Relationship Specialty Start Date End Date Kassy Jay MD [address] [place] [address] [phone] PCP - General Family Practice 12/04/22 documented as of this encounter
--- OUTSIDE RECORDS SUMMARY | 2025-08-02 18:46 | XMS_ITS | Encounter Summary ---
Author Organization [facility] Address [address] [place] [address] Care Team Providers Care Frame Tender Name Role Phone Kassy Jay MD Primary Care Provider [phone] Encounter Details Date Type Department Care Team (Late Contact Info) Description 04/14/2002 Outpatient Historical [facility] Pediatrics - [facility] [address] [address] [facility] [facility] [address] [place] [address] [place] [address] [address] [facility] [address] [address] [place] [address] Social History Tobacco Use Types Packs/Day Years Used Date Smoking Tobacco: Never Assessed Comments Unknown Sex and Gender Information Value Date Recorded Sex Assigned at Not on file Legal Sex Female 4:02 AM LEAF STICKER Gender Identity Not on file Sexual Orientation Not on file documented as of this encounter Plan of Treatment Upcoming Encounters Date Type Department Care Team (Late Contact Info) Description 08/15/2025 1:30 PM LEAF STICKER Office Visit [facility] Primary Care - Kirby Herrmann [address] [phone] Kassy Jay MD [address] [place] [address] [phone] 09/25/2025 8:30 AM LEAF STICKER Video Visit [facility] Adult Psychiatry [place] [address] [address] [place] [phone] Argelia Law NP [address] [address] [place] [address] documented as of this encounter Visit Diagnoses Not on filedocumented in this encounter Additional Health Concerns Infection Onset Date Last Indicated Resolved Time R/O COVID-19 06/02/2021 06/03/2021 06/03/2021 7:34 PM CDT R/O COVID-19 12/22/2022 12/22/2022 12/22/2022 12:2 5 PM CDT R/O COVID-19 09/07/2023 09/07/2023 09/07/2023 9:52 PM LEAF STICKER documented as of this encounter Care Teams Frame Tender Relationship Specialty Start Date End Date Kassy Jay MD [address] [address] [phone] PCP - General Family Practice 12/04/22 documented as of this encounter
--- OUTSIDE RECORDS SUMMARY | 2025-08-02 18:46 | XMS_ITS | Encounter Summary ---
Author Organization [facility] Address [address] [place] [address] Care Team Providers Care Email Manager Name Role Phone Kassy Jay MD Primary Care Provider [phone] Encounter Details Date Type Department Care Team ([facility] Contact Info) Description 1998 Outpatient Historical [facility] MAURICIO Tabor, Darren Ruiz MD NO ADDRESS ON FILE Social History Tobacco Use Types Packs/Day Years Used Date Smoking Tobacco: Never Assessed Comments Unknown Sex and Gender Information Value Date Recorded Sex Assigned at Not on file Legal Sex Female 4:02 AM PERIOPERATIVE NURSE Gender Identity Not on file Sexual Orientation Not on file documented as of this encounter Plan of Treatment Upcoming Encounters Date Type Department Care Team ([facility] Contact Info) Description 08/15/2025 1:30 PM PERIOPERATIVE NURSE Office Visit [facility] Primary Care - Kirby Herrmann [address] [phone] Kassy Jay MD [address] [place] [place] [address] [phone] 09/25/2025 8:30 AM PERIOPERATIVE NURSE Video Visit [facility] Adult Psychiatry [place] [address] [address] [place] [phone] Argelia Law NP [address] [address] [place] [address] documented as of this encounter Visit Diagnoses Not on filedocumented in this encounter Additional Health Concerns Infection Onset Date Last Indicated Resolved Time R/O COVID-19 06/02/2021 06/03/2021 06/03/2021 7:34 PM CDT R/O COVID-19 12/22/2022 12/22/2022 12/22/2022 12:2 5 PM CDT R/O COVID-19 09/07/2023 09/07/2023 09/07/2023 9:52 PM PERIOPERATIVE NURSE documented as of this encounter Care Teams Email Manager Relationship Specialty Start Date End Date Kassy Jay MD [address] [place] [phone] PCP - General Family Practice 12/04/22 documented as of this encounter
--- OUTSIDE RECORDS SUMMARY | 2025-08-02 18:46 | XMS_ITS | Encounter Summary ---
Author Organization [facility] Address [address] [place] [address] Care Team Providers Care Crystallizer Operator Name Role Phone Kassy Jay MD Primary Care Provider [phone] Encounter Details Date Type Department Care Team (Late Contact Info) Description 04/07/2002 Outpatient Historical [facility] Pediatrics - [facility] [address] [facility] [address] [place] [address] Darren Tabor MD NO ADDRESS ON FILE Social History Tobacco Use Types Packs/Day Years Used Date Smoking Tobacco: Never Assessed Comments Unknown Sex and Gender Information Value Date Recorded Sex Assigned at Not on file Legal Sex Female 4:02 AM CELLOPHANE BAG MACHINE OPERATOR Gender Identity Not on file Sexual Orientation Not on file documented as of this encounter Plan of Treatment Upcoming Encounters Date Type Department Care Team (Late Contact Info) Description 08/15/2025 1:30 PM CELLOPHANE BAG MACHINE OPERATOR Office Visit [facility] Primary Care - Kirby Herrmann [address] [phone] Kassy Jay MD [address] [place] [address] [phone] 09/25/2025 8:30 AM CELLOPHANE BAG MACHINE OPERATOR Video Visit [facility] [address]iatry [address] [phone] Argelia Law, [place] [address] [address] [place] [address] documented as of this encounter Visit Diagnoses Not on filedocumented in this encounter Additional Health Concerns Infection Onset Date Last Indicated Resolved Time R/O COVID-19 06/02/2021 06/03/2021 06/03/2021 7:34 PM CDT R/O COVID-19 12/22/2022 12/22/2022 12/22/2022 12:2 5 PM CDT R/O COVID-19 09/07/2023 09/07/2023 09/07/2023 9:52 PM CELLOPHANE BAG MACHINE OPERATOR documented as of this encounter Care Teams Crystallizer Operator Relationship Specialty Start Date End Date Kassy Jay MD [address] [place] [phone] PCP - General Family Practice 12/04/22 documented as of this encounter
--- OUTSIDE RECORDS SUMMARY | 2025-08-02 18:46 | XMS_ITS | Encounter Summary ---
Author Organization [facility] Address [address] [place] [address] Care Team Providers Care On Air Announcer Name Role Phone Kassy Jay MD Primary Care Provider [phone] Encounter Details Date Type Department Care Team (Latest Contact Info) Description 09/04/2005 Outpatient Historical [facility] Gustavo Sims EXTRINSIC ASTHMA UNSPECIFIED (Primary Dx) Social History Tobacco Use Types Packs/Day Years Used Date Smoking Tobacco: Never Assessed Comments Unknown Sex and Gender Information Value Date Recorded Sex Assigned at Not on file Legal Sex Female 4:02 AM ADULT BASIC EDUCATION TEACHER Gender Identity Not on file Sexual Orientation Not on file documented as of this encounter Plan of Treatment Upcoming Encounters Date Type Department Care Team (Late st Contact Info) Description 08/15/2025 1:30 PM ADULT BASIC EDUCATION TEACHER Office Visit [facility] Primary Care - Kirby Herrmann [address] [address] [phone] Kassy Jay MD [address] [place] [address] [phone] 09/25/2025 8:30 AM ADULT BASIC EDUCATION TEACHER Video Visit [facility] Adult Psychiatry [place] [address] [address] [place] [phone] Argelia Law NP [address] [address] [place] [address] documented as of this encounter Visit Diagnoses Diagnosis Extrinsic asthma, unspecified- Primary documented in this encounter Additional Health Concerns Infection Onset Date Last Indicated Resolved Time R/O COVID-19 06/02/2021 06/03/2021 06/03/2021 7:34 PM CDT R/O COVID-19 12/22/2022 12/22/2022 12/22/2022 12:2 5 PM CDT R/O COVID-19 09/07/2023 09/07/2023 09/07/2023 9:52 PM ADULT BASIC EDUCATION TEACHER documented as of this encounter Care Teams On Air Announcer Relationship Specialty Start Date End Date Kassy Jay MD [address] [place] [address] [phone] PCP - General Family Practice 12/04/22 documented as of this encounter
--- OUTSIDE RECORDS SUMMARY | 2025-08-02 18:46 | XMS_ITS | Encounter Summary ---
Author Organization [facility] [facility] Address [address] [place] [address] Care Team Providers Care Quantitative Consultant Name Role Phone Kassy Jay MD Primary Care Provider [phone] Encounter Details Date Type Department Care Team (Late Contact Info) Description 02/24/2001 Outpatient Historical [facility] Pediatrics - [facility] [address] [place] [address] [place] [address] [place] [address] Social History Tobacco Use Types Packs/Day Years Used Date Smoking Tobacco: Never Assessed Comments Unknown Sex and Gender Information Value Date Recorded Sex Assigned at Not on file Legal Sex Female 4:02 AM ELECTRONIC INDUCTION HARDENER Gender Identity Not on file Sexual Orientation Not on file documented as of this encounter Plan of Treatment Upcoming Encounters Date Type Department Care Team (Late Contact Info) Description 08/15/2025 1:30 PM ELECTRONIC INDUCTION HARDENER Office Visit [facility] Primary Care - Kirby Herrmann [address] [phone] Kassy Jay MD [address] [address] [phone] 09/25/2025 8:30 AM ELECTRONIC INDUCTION HARDENER Video Visit [facility] Adult Psychiatry [place] [address] [address] [place] [phone] Argelia Law NP [address] [address] [place] [address] documented as of this encounter Visit Diagnoses Not on filedocumented in this encounter Additional Health Concerns Infection Onset Date Last Indicated Resolved Time R/O COVID-19 06/02/2021 06/03/2021 06/03/2021 7:34 PM CDT R/O COVID-19 12/22/2022 12/22/2022 12/22/2022 12:2 5 PM CDT R/O COVID-19 09/07/2023 09/07/2023 09/07/2023 9:52 PM ELECTRONIC INDUCTION HARDENER documented as of this encounter Care Teams Quantitative Consultant Relationship Specialty Start Date End Date Kassy Jay MD [address] [place] [place] [address] [phone] PCP - General Family Practice 12/04/22 documented as of this encounter
--- OUTSIDE RECORDS SUMMARY | 2025-08-02 18:46 | XMS_ITS | Encounter Summary ---
Author Organization [facility] Address [address] [place] [address] Care Team Providers Care Securities Attorney Name Role Phone Kassy Jay MD Primary Care Provider [phone] Encounter Details Date Type Department Care Team (Late Contact Info) Description 03/29/2001 Outpatient Historical [facility] Pediatrics - [facility] [address] [place] [address] [place] [address] [place] [address] Social History Tobacco Use Types Packs/Day Years Used Date Smoking Tobacco: Never Assessed Comments Unknown Sex and Gender Information Value Date Recorded Sex Assigned at Not on file Legal Sex Female 4:02 AM MICROCOMPUTER SUPPORT SPECIALIST Gender Identity Not on file Sexual Orientation Not on file documented as of this encounter Plan of Treatment Upcoming Encounters Date Type Department Care Team (Late Contact Info) Description 08/15/2025 1:30 PM MICROCOMPUTER SUPPORT SPECIALIST Office Visit [facility] Primary Care - Kirby Herrmann [address] [phone] Kassy Jay MD [address] [address] [phone] 09/25/2025 8:30 AM MICROCOMPUTER SUPPORT SPECIALIST Video Visit [facility] Adult Psychiatry [place] [address] [address] [place] [phone] Argelia Law NP [address] [address] [place] [address] documented as of this encounter Visit Diagnoses Not on filedocumented in this encounter Additional Health Concerns Infection Onset Date Last Indicated Resolved Time R/O COVID-19 06/02/2021 06/03/2021 06/03/2021 7:34 PM CDT R/O COVID-19 12/22/2022 12/22/2022 12/22/2022 12:2 5 PM CDT R/O COVID-19 09/07/2023 09/07/2023 09/07/2023 9:52 PM MICROCOMPUTER SUPPORT SPECIALIST documented as of this encounter Care Teams Securities Attorney Relationship Specialty Start Date End Date Kassy Jay MD [address] [place] [address] [phone] PCP - General Family Practice 12/04/22 documented as of this encounter
--- OUTSIDE RECORDS SUMMARY | 2025-08-02 18:46 | XMS_ITS | Encounter Summary ---
Author Organization [facility] Address [address] [place] [address] Care Team Providers Care Decorator Lighting Fixtures Name Role Phone Kassy Jay MD Primary Care Provider [phone] Encounter Details Date Type Department Care Team ([facility] Contact Info) Description 1998 Outpatient Historical [facility] MAURICIO Tabor, Darren Ruiz MD NO ADDRESS ON FILE Social History Tobacco Use Types Packs/Day Years Used Date Smoking Tobacco: Never Assessed Comments Unknown Sex and Gender Information Value Date Recorded Sex Assigned at Not on file Legal Sex Female 4:02 AM ELECTRIC APPLIANCE INSTALLER Gender Identity Not on file Sexual Orientation Not on file documented as of this encounter Plan of Treatment Upcoming Encounters Date Type Department Care Team ([facility] Contact Info) Description 08/15/2025 1:30 PM ELECTRIC APPLIANCE INSTALLER Office Visit [facility] Primary Care - Kirby Herrmann [address] [phone] Kassy Jay MD [address] [phone] 09/25/2025 8:30 AM ELECTRIC APPLIANCE INSTALLER Video Visit [facility] Adult Psychiatry [place] [address] [address] [place] [phone] Argelia Law NP [address] [address] [place] [address] documented as of this encounter Visit Diagnoses Not on filedocumented in this encounter Additional Health Concerns Infection Onset Date Last Indicated Resolved Time R/O COVID-19 06/02/2021 06/03/2021 06/03/2021 7:34 PM CDT R/O COVID-19 12/22/2022 12/22/2022 12/22/2022 12:2 5 PM CDT R/O COVID-19 09/07/2023 09/07/2023 09/07/2023 9:52 PM ELECTRIC APPLIANCE INSTALLER documented as of this encounter Care Teams Decorator Lighting Fixtures Relationship Specialty Start Date End Date Kassy Jay MD [address] [place] [address] [phone] PCP - General Family Practice 12/04/22 documented as of this encounter
--- OUTSIDE RECORDS SUMMARY | 2025-08-02 18:46 | XMS_ITS | Encounter Summary ---
Author Organization [facility] Address [address] [place] [address] Care Team Providers Care Lay Health Advocate Name Role Phone Kassy Jya MD Primary Care Provider [phone] Encounter Details Date Type Department Care Team (Late Contact Info) Description 10/14/1999 Outpatient Historical [facility] Pediatrics - [facility] [address] [place] [address] [place] [address] [place] [address] Social History Tobacco Use Types Packs/Day Years Used Date Smoking Tobacco: Never Assessed Comments Unknown Sex and Gender Information Value Date Recorded Sex Assigned at Not on file Legal Sex Female 4:02 AM CHIPS SCREEN TENDER Gender Identity Not on file Sexual Orientation Not on file documented as of this encounter Plan of Treatment Upcoming Encounters Date Type Department Care Team (Late Contact Info) Description 08/15/2025 1:30 PM CHIPS SCREEN TENDER Office Visit [facility] Primary Care - Kirby Herrmann [address] [phone] Kassy Jay MD [address] [address] [phone] 09/25/2025 8:30 AM CHIPS SCREEN TENDER Video Visit [facility] Adult Psychiatry [place] [address] [address] [place] [phone] Argelia Law NP [address] [address] [place] [address] documented as of this encounter Visit Diagnoses Not on filedocumented in this encounter Additional Health Concerns Infection Onset Date Last Indicated Resolved Time R/O COVID-19 06/02/2021 06/03/2021 06/03/2021 7:34 PM CDT R/O COVID-19 12/22/2022 12/22/2022 12/22/2022 12:2 5 PM CDT R/O COVID-19 09/07/2023 09/07/2023 09/07/2023 9:52 PM CHIPS SCREEN TENDER documented as of this encounter Care Teams Lay Health Advocate Relationship Specialty Start Date End Date Kassy Jay MD [address] [place] [address] [phone] PCP - General Family Practice 12/04/22 documented as of this encounter
--- OUTSIDE RECORDS SUMMARY | 2025-08-02 18:46 | XMS_ITS | Encounter Summary ---
Author Organization [facility] Address [address] [place] [address] Care Team Providers Care Scrap Separator Name Role Phone Kassy Jay MD Primary Care Provider [phone] Encounter Details Date Type Department Care Team (Late Contact Info) Description 1998 Outpatient Historical [facility] Pediatrics - [facility] [address] [place] [address] Darren Tabor MD NO ADDRESS ON FILE Social History Tobacco Use Types Packs/Day Years Used Date Smoking Tobacco: Never Assessed Comments Unknown Sex and Gender Information Value Date Recorded Sex Assigned at Not on file Legal Sex Female 4:02 AM PET WALKER Gender Identity Not on file Sexual Orientation Not on file documented as of this encounter Plan of Treatment Upcoming Encounters Date Type Department Care Team (Late Contact Info) Description 08/15/2025 1:30 PM PET WALKER Office Visit [facility] Primary Care - Kirby Herrmann [address] [phone] Kassy Jay MD [address] [place] [address] [phone] 09/25/2025 8:30 AM PET WALKER Video Visit [facility] Adult Psychiatry [address] [phone] Argelia Law, [place] [address] [address] [place] [address] documented as of this encounter Visit Diagnoses Not on filedocumented in this encounter Additional Health Concerns Infection Onset Date Last Indicated Resolved Time R/O COVID-19 06/02/2021 06/03/2021 06/03/2021 7:34 PM CDT R/O COVID-19 12/22/2022 12/22/2022 12/22/2022 12:2 5 PM CDT R/O COVID-19 09/07/2023 09/07/2023 09/07/2023 9:52 PM PET WALKER documented as of this encounter Care Teams Scrap Separator Relationship Specialty Start Date End Date Kassy Jay MD [address] [place] [phone] PCP - General Family Practice 12/04/22 documented as of this encounter
--- OUTSIDE RECORDS SUMMARY | 2025-08-02 18:46 | XMS_ITS | Encounter Summary ---
Author Organization [facility] Address [address] [place] [address] Care Team Providers Care Mash Filter Press Operator Name Role Phone Kassy Jay MD Primary Care Provider [phone] Encounter Details Date Type Department Care Team (Late Contact Info) Description 01/21/2006 Outpatient Historical [facility] Pediatrics - [facility] [address] [place] [address] [place] [address] [place] [address] Social History Tobacco Use Types Packs/Day Years Used Date Smoking Tobacco: Never Assessed Comments Unknown Sex and Gender Information Value Date Recorded Sex Assigned at Not on file Legal Sex Female 4:02 AM CONTAINER FINISHER Gender Identity Not on file Sexual Orientation Not on file documented as of this encounter Plan of Treatment Upcoming Encounters Date Type Department Care Team (Late Contact Info) Description 08/15/2025 1:30 PM CONTAINER FINISHER Office Visit [facility] Primary Care - Kirby Herrmann [address] [place] [address] [phone] Kassy Jay MD [address] [place] [address] [phone] 09/25/2025 8:30 AM CONTAINER FINISHER Video Visit [facility] Adult Psychiatry [place] [address] [address] [place] [phone] Argelia Law NP [address] [address] [place] [address] documented as of this encounter Visit Diagnoses Not on filedocumented in this encounter Additional Health Concerns Infection Onset Date Last Indicated Resolved Time R/O COVID-19 06/02/2021 06/03/2021 06/03/2021 7:34 PM CDT R/O COVID-19 12/22/2022 12/22/2022 12/22/2022 12:2 5 PM CDT R/O COVID-19 09/07/2023 09/07/2023 09/07/2023 9:52 PM CONTAINER FINISHER documented as of this encounter Care Teams Mash Filter Press Operator Relationship Specialty Start Date End Date Kassy Jay MD [address] [place] [address] [phone] PCP - General Family Practice 12/04/22 documented as of this encounter
--- OUTSIDE RECORDS SUMMARY | 2025-08-02 18:46 | XMS_ITS | Encounter Summary ---
Author Organization [facility] Address [address] [place] [address] Care Team Providers Care Field Service Engineer Name Role Phone Kassy Jay MD Primary Care Provider [phone] Encounter Details Date Type Department Care Team (Late Contact Info) Description 1998 Outpatient Historical [facility] MAURICIO Yadav, Alley Cid MD [address] [place] [phone] Social History Tobacco Use Types Packs/Day Years Used Date Smoking Tobacco: Never Assessed Comments Unknown Sex and Gender Information Value Date Recorded Sex Assigned at Not on file Legal Sex Female 4:02 AM SPUDDER Gender Identity Not on file Sexual Orientation Not on file documented as of this encounter Plan of Treatment Upcoming Encounters Date Type Department Care Team (Late Contact Info) Description 08/15/2025 1:30 PM SPUDDER Office Visit [facility] Primary Care - [address] [place] [phone] Kassy Jay MD [address] [place] [phone] 09/25/2025 8:30 AM SPUDDER Video Visit [facility] Adult Psychiatry [address] [address] [place] [phone] Argelia Law, [place] [address] [address] [place] [address] documented as of this encounter Visit Diagnoses Not on filedocumented in this encounter Additional Health Concerns Infection Onset Date Last Indicated Resolved Time R/O COVID-19 06/02/2021 06/03/2021 06/03/2021 7:34 PM CDT R/O COVID-19 12/22/2022 12/22/2022 12/22/2022 12:2 5 PM CDT R/O COVID-19 09/07/2023 09/07/2023 09/07/2023 9:52 PM SPUDDER documented as of this encounter Care Teams Field Service Engineer Relationship Specialty Start Date End Date Kassy Jay MD [address] [place] [phone] PCP - General Family Practice 12/04/22 documented as of this encounter
--- OUTSIDE RECORDS SUMMARY | 2025-08-02 18:46 | XMS_ITS | Encounter Summary ---
Author Organization [facility] Address [address] [place] [address] Care Team Providers Care Bilingual Sales Consultant Name Role Phone Kassy Jay MD Primary Care Provider [phone] Encounter Details Date Type Department Care Team (Late Contact Info) Description 07/27/2000 Outpatient Historical [facility] Pediatrics - [facility] [address] [place] [address] [place] [address] [place] [address] Social History Tobacco Use Types Packs/Day Years Used Date Smoking Tobacco: Never Assessed Comments Unknown Sex and Gender Information Value Date Recorded Sex Assigned at Not on file Legal Sex Female 4:02 AM STOREKEEPER STEWARD Gender Identity Not on file Sexual Orientation Not on file documented as of this encounter Plan of Treatment Upcoming Encounters Date Type Department Care Team (Late Contact Info) Description 08/15/2025 1:30 PM STOREKEEPER STEWARD Office Visit [facility] Primary Care - [place] [address] [place] [phone] Kassy Jay MD [address] [place] [phone] 09/25/2025 8:30 AM STOREKEEPER STEWARD Video Visit [facility] Adult Psychiatry [place] [address] [address] [place] [phone] Argelia Law NP [address] [address] [place] [address] documented as of this encounter Visit Diagnoses Not on filedocumented in this encounter Additional Health Concerns Infection Onset Date Last Indicated Resolved Time R/O COVID-19 06/02/2021 06/03/2021 06/03/2021 7:34 PM CDT R/O COVID-19 12/22/2022 12/22/2022 12/22/2022 12:2 5 PM CDT R/O COVID-19 09/07/2023 09/07/2023 09/07/2023 9:52 PM STOREKEEPER STEWARD documented as of this encounter Care Teams Bilingual Sales Consultant Relationship Specialty Start Date End Date Kassy Jay MD [address] [place] [address] [phone] PCP - General Family Practice 12/04/22 documented as of this encounter
--- OUTSIDE RECORDS SUMMARY | 2025-08-02 18:46 | XMS_ITS | Encounter Summary ---
Author Organization [facility] Address [address] [place] [address] Care Team Providers Care Veneer Clipper Name Role Phone Kassy Jay MD Primary Care Provider [phone] Encounter Details Date Type Department Care Team (Late Contact Info) Description 02/03/[address] [facility] Pediatrics - [facility] [address] [place] [address] [place] [address] [place] [address] Social History Tobacco Use Types Packs/Day Years Used Date Smoking Tobacco: Never Assessed Comments Unknown Sex and Gender Information Value Date Recorded Sex Assigned at Not on file Legal Sex Female 4:02 AM STEEL HANDLER Gender Identity Not on file Sexual Orientation Not on file documented as of this encounter Plan of Treatment Upcoming Encounters Date Type Department Care Team (Late Contact Info) Description 08/15/2025 1:30 PM STEEL HANDLER Office Visit [facility] Primary Care - [place] [address] [address] [phone] Kassy Jay MD [address] [place] [phone] 09/25/2025 8:30 AM STEEL HANDLER Video Visit [facility] Adult Psychiatry [place] [address] [address] [place] [phone] Argelia Law NP [address] [address] [place] [address] documented as of this encounter Visit Diagnoses Not on filedocumented in this encounter Additional Health Concerns Infection Onset Date Last Indicated Resolved Time R/O COVID-19 06/02/2021 06/03/2021 06/03/2021 7:34 PM CDT R/O COVID-19 12/22/2022 12/22/2022 12/22/2022 12:2 5 PM CDT R/O COVID-19 09/07/2023 09/07/2023 09/07/2023 9:52 PM STEEL HANDLER documented as of this encounter Care Teams Veneer Clipper Relationship Specialty Start Date End Date Kassy Jay MD [address] [place] [address] [phone] PCP - General Family Practice 12/04/22 documented as of this encounter
--- OUTSIDE RECORDS SUMMARY | 2025-08-02 18:46 | XMS_ITS | Encounter Summary ---
Author Organization [facility] Address [address] [place] [address] Care Team Providers Care Oracle Database Developer Name Role Phone Kassy Jay MD Primary Care Provider [phone] Encounter Details Date Type Department Care Team ([facility] Contact Info) Description 1998 Outpatient Historical [facility] MAURICIO Tabor, Darren Ruiz MD NO ADDRESS ON FILE Social History Tobacco Use Types Packs/Day Years Used Date Smoking Tobacco: Never Assessed Comments Unknown Sex and Gender Information Value Date Recorded Sex Assigned at Not on file Legal Sex Female 4:02 AM SULFIDE HEAD OPERATOR Gender Identity Not on file Sexual Orientation Not on file documented as of this encounter Plan of Treatment Upcoming Encounters Date Type Department Care Team ([facility] Contact Info) Description 08/15/2025 1:30 PM SULFIDE HEAD OPERATOR Office Visit [facility] Primary Care - [place] [address] [phone] Kassy Jay MD [address] [place] [phone] 09/25/2025 8:30 AM SULFIDE HEAD OPERATOR Video Visit [facility] Adult Psychiatry [place] [address] [address] [place] [phone] Argelia Law NP [address] [address] [place] [address] documented as of this encounter Visit Diagnoses Not on filedocumented in this encounter Additional Health Concerns Infection Onset Date Last Indicated Resolved Time R/O COVID-19 06/02/2021 06/03/2021 06/03/2021 7:34 PM CDT R/O COVID-19 12/22/2022 12/22/2022 12/22/2022 12:2 5 PM CDT R/O COVID-19 09/07/2023 09/07/2023 09/07/2023 9:52 PM SULFIDE HEAD OPERATOR documented as of this encounter Care Teams Oracle Database Developer Relationship Specialty Start Date End Date Kassy Jay MD [address] [place] [phone] PCP - General Family Practice 12/04/22 documented as of this encounter
--- OUTSIDE RECORDS SUMMARY | 2025-08-02 18:46 | XMS_ITS | Encounter Summary ---
Author Organization [facility] Address [address] [place] [address] Care Team Providers Care Batch Mixer Name Role Phone Kassy Jay MD Primary Care Provider Encounter Details Date Type Department Care Team (Late Contact Info) Description 10/20/2001 Outpatient Historical [facility] Pediatrics - [facility] [address] [address] [facility] [address] [place] [address] [place] [address] [place] [address] Social History Tobacco Use Types Packs/Day Years Used Date Smoking Tobacco: Never Assessed Comments Unknown Sex and Gender Information Value Date Recorded Sex Assigned at Not on file Legal Sex Female 4:02 AM GUIDE FOREIGN TOUR Gender Identity Not on file Sexual Orientation Not on file documented as of this encounter Plan of Treatment Upcoming Encounters Date Type Department Care Team (Late Contact Info) Description 08/15/2025 1:30 PM GUIDE FOREIGN TOUR Office Visit [facility] Primary Care - [place] [address] [address] [phone] Kassy Jay MD [address] [address] [phone] 09/25/2025 8:30 AM GUIDE FOREIGN TOUR Video Visit [facility] Adult Psychiatry Var[place] [address] [address] [place] [phone] Argelia Law NP [address] [address] [place] [address] documented as of this encounter Visit Diagnoses Not on filedocumented in this encounter Additional Health Concerns Infection Onset Date Last Indicated Resolved Time R/O COVID-19 06/02/2021 06/03/2021 06/03/2021 7:34 PM CDT R/O COVID-19 12/22/2022 12/22/2022 12/22/2022 12:2 5 PM CDT R/O COVID-19 09/07/2023 09/07/2023 09/07/2023 9:52 PM GUIDE FOREIGN TOUR documented as of this encounter Care Teams Batch Mixer Relationship Specialty Start Date End Date Kassy Jay MD [address] [place] [phone] PCP - General Family Practice 12/04/22 documented as of this encounter
--- OUTSIDE RECORDS SUMMARY | 2025-08-02 18:46 | XMS_ITS | Encounter Summary ---
Author Organization [facility] Address [address] [place] [address] Care Team Providers Care Plant Maintenance Worker Name Role Phone Kassy Jay MD Primary Care Provider Encounter Details Date Type Department Care Team (Late Contact Info) Description 06/16/2002 Outpatient Historical [facility] [address] [facility] [address] [address] Gustavo Sims Social History Tobacco Use Types Packs/Day Years Used Date Smoking Tobacco: Never Assessed Comments Unknown Sex and Gender Information Value Date Recorded Sex Assigned at Not on file Legal Sex Female 4:02 AM HUMAN RESOURCES TRAINER Gender Identity Not on file Sexual Orientation Not on file documented as of this encounter Plan of Treatment Upcoming Encounters Date Type Department Care Team (Late Contact Info) Description 08/15/2025 1:30 PM HUMAN RESOURCES TRAINER Office Visit [facility] [place] [phone] Kassy Jay MD [address] [place] [phone] 09/25/2025 8:30 AM HUMAN RESOURCES TRAINER Video Visit [facility] Adult Psychiatry [address] [address] [place] [phone] [place], Argelia Lopez NP [address] [address] [place] [address] documented as of this encounter Visit Diagnoses Not on filedocumented in this encounter Additional Health Concerns Infection Onset Date Last Indicated Resolved Time R/O COVID-19 06/02/2021 06/03/2021 06/03/2021 7:34 PM CDT R/O COVID-19 12/22/2022 12/22/2022 12/22/2022 12:2 5 PM CDT R/O COVID-19 09/07/2023 09/07/2023 09/07/2023 9:52 PM HUMAN RESOURCES TRAINER documented as of this encounter Care Teams Plant Maintenance Worker Relationship Specialty Start Date End Date Kassy Jay MD [address] [facility] [place] [phone] PCP - General Family Practice 12/04/22 documented as of this encounter
--- OUTSIDE RECORDS SUMMARY | 2025-08-02 18:46 | XMS_ITS | Encounter Summary ---
Author Organization [facility] Address [address] [place] [address] Care Team Providers Care Bankruptcy Legal Assistant Name Role Phone Kassy Jay MD Primary Care Provider [phone] Encounter Details Date Type Department Care Team (Late Contact Info) Description 07/18/2005 Outpatient Historical [facility] - [facility] [address] [place] [address] [place] [address] [place] [address] Social History Tobacco Use Types Packs/Day Years Used Date Smoking Tobacco: Never Assessed Comments Unknown Sex and Gender Information Value Date Recorded Sex Assigned at Not on file Legal Sex Female 4:02 AM LEAF SUCKER OPERATOR Gender Identity Not on file Sexual Orientation Not on file documented as of this encounter Plan of Treatment Upcoming Encounters Date Type Department Care Team (Late Contact Info) Description 08/15/2025 1:30 PM LEAF SUCKER OPERATOR Office Visit [facility] Primary Care - [place] [address] [phone] Kassy Jay MD [address] [place] [place] [address] [phone] 09/25/2025 8:30 AM LEAF SUCKER OPERATOR Video Visit [facility] Adult Psychiatry [place] [address] [address] [place] [phone] Argelia Law NP [address] [address] [place] [address] documented as of this encounter Visit Diagnoses Not on filedocumented in this encounter Additional Health Concerns Infection Onset Date Last Indicated Resolved Time R/O COVID-19 06/02/2021 06/03/2021 06/03/2021 7:34 PM CDT R/O COVID-19 12/22/2022 12/22/2022 12/22/2022 12:2 5 PM CDT R/O COVID-19 09/07/2023 09/07/2023 09/07/2023 9:52 PM LEAF SUCKER OPERATOR documented as of this encounter Care Teams Bankruptcy Legal Assistant Relationship Specialty Start Date End Date Kassy Jay MD [address] [place] [address] [phone] PCP - General Family Practice 12/04/22 documented as of this encounter
--- OUTSIDE RECORDS SUMMARY | 2025-08-02 18:47 | XMS_ITS | Clinical Summary ---
Author Organization [facility] Address [address] [place] [address] Phone Care Team Providers Care Electrotype Finisher Name Role Phone Kassy Jay MD Primary Care Provider [phone] Allergies Active Allergy Reactions Criticality Noted Date [...] for Anaphylaxis. 1 Each 1 025 Active methylphenidate HCl 27 mg Extended Release tabletIndication s:Attention deficit hyperactivity disorder (ADHD), predominantly inattentive type Take 1 Tablet (27 mg) by mouth daily in the morning. Max Daily Amount: 27 mg 30 Tablet 025 Active methylphenidate HCl 27 mg Extended Release tabletIndication s:Attention deficit hyperactivity disorder (ADHD), predominantly inattentive type Take 1 Tablet (27 mg) by mouth daily in the morning. Max Daily Amount: 27 mg 30 Tablet 025 Active methylphenidate HCl (Ritalin) 5 mg tabletIndication s:Attention deficit hyperactivity disorder (ADHD), predominantly inattentive type Take 1 Tablet (5 mg) by mouth 2 times daily. Max Daily Amount: 10 mg 60 Tablet 025 Active methylphenidate HCl (Ritalin) 5 mg tabletIndication s:Attention deficit hyperactivity disorder (ADHD), predominantly inattentive type Take 1 Tablet (5 mg) by mouth 2 times daily. Max Daily Amount: 10 mg 60 Tablet 025 Active methylphenidate HCl (Ritalin) 5 mg tabletIndication s:Attention deficit hyperactivity disorder (ADHD), predominantly inattentive type Take 1 Tablet (5 mg) by mouth 2 times daily. Max Daily Amount: 10 mg 60 Tablet 026 Active methylphenidate HCl 27 mg Extended Release tabletIndication s:Attention deficit hyperactivity disorder (ADHD), predominantly inattentive type Take 1 Tablet (27 mg) by mouth daily in the morning. Max Daily Amount: 27 mg 30 Tablet 026 Active traZODone (DESYREL) 100 mg tabletIndication s:Insomnia, unspecified type Take 2 Tablets (200 mg) by mouth daily at bedtime. 60 Tablet 3 Active FLUoxetine (PROzac) 20 mg capsuleIndicatio ns:BARBIE (generalized anxiety disorder) Take 1 Capsule (20 mg) by mouth daily. 30 Capsule 3 Active cariprazine (Vraylar) 6 mg Capsule capsuleIndicatio ns:BARBIE (generalized anxiety disorder),Unspec ified mood (affective) disorder,Bipolar 1 disorder, mixed, partial remission (CMS/HCC),Border line personality disorder (CMS/HCC) Take 1 Capsule (6 mg) by mouth daily. 30 Capsule 3 Active FLUoxetine (PROzac) 40 mg capsuleIndicatio ns:BARBIE (generalized anxiety disorder) Take 1 Capsule (40 mg) by mouth daily. 30 Capsule 3 Active LORazepam (ATIVAN) 2 mg tabletIndication s:BARBIE (generalized anxiety disorder) Take 1 Tablet (2 mg) by mouth 3 times daily as needed for Anxiety. 90 Tablet 3 Active traZODone (DESYREL) 300 mg tabletIndication s:BARBIE (generalized anxiety disorder) Take 1 Tablet (300 mg) by mouth daily at bedtime. Take with 1 Tablet (100mg) for total of 400mg at bedtime. 30 Tablet 1 025 2024 Discontinued traZODone (DESYREL) 100 mg tabletIndication s:Insomnia, unspecified type TAKE 1 TABLET BY MOUTH DAILY AT BEDTIME. TAKE WITH 1 TABLET (300MG) FOR TOTAL OF 400MG AT BEDTIME. 90 Tablet 025 2024 Discontinued(R eorder) LORazepam (ATIVAN) 2 mg tabletIndication s:BARBIE (generalized anxiety disorder) Take 1 Tablet (2 mg) by mouth 3 times daily as needed for Anxiety. 90 Tablet 1 025 2024 Discontinued(R eorder) FLUoxetine (PROzac) 20 mg capsuleIndicatio ns:BARBIE (generalized anxiety disorder) Take 1 Capsule (20 mg) by mouth daily. 30 Capsule 1 025 2024 Discontinued FLUoxetine (PROzac) 40 mg capsuleIndicatio ns:BARBIE (generalized anxiety disorder) Take 1 Capsule (40 mg) by mouth daily. 30 Capsule 1 025 2024 Discontinued methylphenidate ER 27 mg tablet,extended release 24 hrIndications:At tention deficit hyperactivity disorder (ADHD), predominantly inattentive type Take 1 Tablet (27 mg) by mouth daily in the morning. Max Daily Amount: 27 mg 30 Tablet 025 2024 Discontinued methylphenidate HCl (Ritalin) 5 mg tabletIndication s:Attention deficit hyperactivity disorder (ADHD), predominantly inattentive type Take 1 Tablet (5 mg) by mouth 2 times daily. Max Daily Amount: 10 mg 60 Tablet 025 2024 Discontinued cariprazine (Vraylar) 6 mg Capsule capsuleIndicatio ns:Unspecified mood (affective) disorder,Bipolar 1 disorder, mixed, partial remission (CMS/HCC),BARBIE (generalized anxiety disorder),Border line personality disorder (CMS/HCC) Take 1 Capsule (6 mg) by mouth daily. 30 Capsule 1 025 2024 Discontinued(R eorder) benztropine (COGENTIN) 1 mg tabletIndication s:Unspecified mood (affective) disorder TAKE 1 TABLET BY MOUTH TWICE A DAY 180 Tablet 025 2024 Discontinued Active Problems Problem Noted Date Diagnosed Date [...] menses 01/21/2017 Overview (04/15/2021): Overview: [facility] has follow up with 02/06/17 Overview: Overview: [facility]; has follow up with 02/06/17 Gastroesophageal reflux disease Asthma Elevated prolactin level Resolved Problems Problem Noted Date Diagnosed Date Resolved Date Adjustment disorder with mix ed disturbance of emotions and conduct 09/08/2023 03/22/2024 Axillary hyperhidrosis 06/17/202208/19 Overview (06/17/2022): Ref to derm, # given Drug reaction 06/17/2022 08/19/2023 Overview (06/17/2022): Consider possible drug reaction. Stop Cymbalta. Zyrtec & solumedrol given. Make appt with apartment community assistant manager. Psychogenic nonepileptic seizure 12/16/2021 08/19/2023 Nightmares 07/01/2021 [...] Unspecified asthma, with exacerbation 12/06/2007 08/19/2023 Routine infant or child health check 07/03/2007 01/14/2008 Acute [...] Encounters Date Type Department Care Team Description 08/01/2025 External Device Data STL ABSTRACTION Provider, Abstract 07/27/2025 7:30 AM HEAT TREAT FURNACE OPERATOR Video Visit [facility] [address] [place] [address] [place], [place] [address] Argelia Law NP Bipolar 1 disorder, mixed, partial remission (CMS/HCC) (Primary Dx); Insomnia, unspecified type; BARBIE (generalized anxiety disorder); Unspecified mood (affective) disorder; Borderline personality disorder (CMS/HCC); Attention deficit hyperactivity disorder (ADHD), predominantly inattentive type; Panic disorder; PTSD (post-traumatic stress disorder); Atypical anorexia nervosa 07/27/2025 [facility] Psych[facility] [address] [address] [place] [address] Argelia Law NP Attention deficit hyperactivity disorder (ADHD), predominantly inattentive type 07/25/2025 External Device Data STL ABSTRACTION Provider, Abstract 07/19/2025 External Device Data STL ABSTRACTION Provider, Abstract 07/19/2025 External Device Data STL ABSTRACTION Provider, Abstract 07/05/2025 [facility] Psych[facility] [address] [address] [place] [address] Argelia Law NP BARBIE (generalized anxiety disorder) 07/02/2025 [facility] Psych[facility] [address] [address] [place] [address] Argelia Law NP Unspecified mood (affective) disorder 06/26/2025 9:00 AM CDT Video Visit [facility] [address] [address] [place] [address] Argelia Law NP Bipolar 1 disorder, mixed, partial remission (CMS/HCC) (Primary Dx); Attention deficit hyperactivity disorder (ADHD), predominantly inattentive type; PTSD (post-traumatic stress disorder); BARBIE (generalized anxiety disorder); Panic disorder; Borderline personality disorder (CMS/HCC); Insomnia, unspecified type; Atypical anorexia nervosa; Unspecified mood (affective) disorder 06/26/2025 [facility] Psych[facility] [address] [address] [place] [address] Argelia Law NP Attention deficit hyperactivity disorder (ADHD), predominantly inattentive type 06/20/2025 [facility] [address] [place] [address] Argelia Law NP Erroneous encounter-disregard 06/12/2025 2:00 PM CDT Video Visit [facility] [address] [place] [address] Argelia Law NP Bipolar 1 disorder, mixed, partial remission (CMS/HCC) (Primary Dx); BARBIE (generalized anxiety disorder); Borderline personality disorder (CMS/HCC); Attention deficit hyperactivity disorder (ADHD), predominantly inattentive type; Insomnia, unspecified type; Atypical anorexia nervosa; PTSD (post-traumatic stress disorder); Panic disorder; Unspecified mood (affective) disorder 06/12/2025 [facility] Psych[facility] [address] [address] [place] [address] Argelia Law NP Attention deficit hyperactivity disorder (ADHD), predominantly inattentive type 06/07/2025 External Device Data STL ABSTRACTION Provider, Abstract 06/06/2025 External Device Data STL ABSTRACTION Provider, Abstract 06/02/2025 [facility] Psych[facility] [address] [address] [place] [address] Argelia Law NP BARBIE (generalized anxiety disorder) 05/30/2025 External Device Data STL ABSTRACTION Provider, Abstract 05/29/2025 7:30 AM CDT Video Visit [facility] [address] [address] [place] [address] Argelia Law NP Attention deficit hyperactivity disorder (ADHD), predominantly inattentive type (Primary Dx); BARBIE (generalized anxiety disorder); Insomnia, unspecified type; Bipolar 1 disorder, mixed, partial remission (CMS/HCC); Borderline personality disorder (CMS/HCC); Atypical anorexia nervosa; PTSD (post-traumatic stress disorder); Panic disorder 05/29/2025 Refill [facility] [address] [address] [place] [address] Argelia Law NP Attention deficit hyperactivity disorder (ADHD), predominantly inattentive type (Primary Dx) 05/24/2025 External Device Data STL ABSTRACTION Provider, Abstract 05/23/2025 Telephone [facility] and [place] [id number] [facility] [place] [address] Argelia Law NP Medication Problem 05/18/2025 Refill [facility] [address] [address] [place] [address] Argelia Law NP BARBIE (generalized anxiety disorder) 05/18/2025 [facility] Psych[facility] [address] [address] [place] [address] Argelia Law NP Insomnia, unspecified type (Primary Dx) 05/09/2025 7:30 AM CDT Video Visit [facility] [address] [address] [place] [address] Argelia Law NP Bipolar 1 disorder, mixed, partial remission (CMS/HCC) (Primary Dx); Borderline personality disorder (CMS/HCC); BARBIE (generalized anxiety disorder); Atypical anorexia nervosa; Insomnia, unspecified type; PTSD (post-traumatic stress disorder); Attention deficit hyperactivity disorder (ADHD), predominantly inattentive type; Panic disorder 05/03/2025 [facility] [address] [place] [address] Argelia Law NP BARBIE (generalized anxiety disorder) 05/02/2025 External Device Data STL ABSTRACTION Provider, Abstract from Last 3 Months Immunizations Immunization Administration [...] Augustin Love in 2011 from fall in retirement No Known Problems Paternal Grandmother Celiac Disease [...] Never 02/09/2020 How often do you attend christianity or rastafari serv ices? Never 02/09/2020 Do you belong to any clubs o r organizations such as christianity groups, unions, fraternal or athletic groups, or [...] on file Legal Sex Female 4:02 AM HEAT TREAT FURNACE OPERATOR Gender Identity Not on file Sexual [...] st Contact Info) Description 08/15/2025 1:30 PM HEAT TREAT FURNACE OPERATOR Office Visit [facility] [place] [address] Kassy Jay MD [address] [place] [phone] 09/25/2025 8:30 AM HEAT TREAT FURNACE OPERATOR Video Visit [facility] [place] [address] [place] [phone] [place], Argelia Lopze NP [address] [address] [place] [address] Health Maintenance Due Date Last Done Comments HPV/Cotest (21-29) 2019 HPV VACCINES (1 - 3-dose SCD M series) 2025 COVID-19 Vaccine (6 - 2024-2 6 season) 2025 06/21/2023, 08/03/2022, 07/15/2021, Additional history exists CERVICAL CANCER SCREENING 08/31/2026 PAP SMEAR 08/31/2026 08/31/2023, 04/23/2020 DTAP/TDAP/TD VACCINES (10 - Td or Tdap) 05/16/2031 05/16/2021, 02/15/2020, 03/05/2011, Additional history exists HEPATITIS B VACCINES Completed 1998, 1998, 1998 INFLUENZA VACCINE Completed 05/31/2025, , 06/05/2023, Additional history exists Medical Devices Implanted Type Area Leadite Worker Device Identifier Shelf Expiration Date Model / Serial / Lot Clip Ti Med/Lg [id number] - Csc - [id number] Implanted:Qty: 2 on 01/03/2025 by Tarik Cervantes DO at [facility] N/A: Abdomen TELEFLEX- WECK CLOSURE SYS 06/09/2029 [id number] / / [id number] Iud Insurance [facility] MEDICAID [facility] Epigami [id number] AETNA CHOICE POS II RX INFOCROSSING Medicaid RX [facility] [employer] RX [place] PL[employer] (INTERNAL) [facility] Internal Plans [facility] HEALTHY [facility] MEDICAID Advance Directives For more information, please contact: [phone] * Full Code (Latest Code Status on [...] 8:57 PM 10/10/2021 1:06 PM Care Teams Electrotype Finisher Relationship Specialty Start Date End Date Kassy Jay MD [address] [place] [phone] PCP - General Family Practice 12/04/22
--- OUTSIDE RECORDS SUMMARY | 2025-08-02 18:47 | XMS_ITS | Encounter Summary ---
Author Organization [facility] Address [address] [place] [address] Care Team Providers Care Shoe Ironer Name Role Phone Kassy Jay MD Primary Care Provider [phone] Encounter Details Date Type Department Care Team (Late Contact Info) Description 05/04/2008 Outpatient Historical [facility] [address] [address] [place] [address] Headache Social History Tobacco Use Types Packs/Day Years Used Date Smoking Tobacco: Never Assessed Comments No Sex and Gender Information Value Date Recorded Sex Assigned at Not on file Legal Sex Female 4:02 AM KNIT GOODS CUTTER HAND Gender Identity Not on file Sexual Orientation Not on file documented as of this encounter Plan of Treatment Upcoming Encounters Date Type Department Care Team (Late Contact Info) Description 08/15/2025 1:30 PM KNIT GOODS CUTTER HAND Office Visit [facility] Primary Care - [address] [phone] Kassy Jay MD [address] [place] [phone] 09/25/2025 8:30 AM KNIT GOODS CUTTER HAND Video Visit [facility] Adult Psychiatry [address] [address] [place] [address] Thanh Argelia Lopez, CLINICAL SCIENCE CONSULTANT [address] [address] [place] [address] documented as of this encounter Visit Diagnoses Diagnosis Headache(784.0) Headache documented in this encounter Additional Health Concerns Infection Onset Date Last Indicated Resolved Time R/O COVID-19 06/02/2021 06/03/2021 06/03/2021 7:34 PM CDT R/O COVID-19 12/22/2022 12/22/2022 12/22/2022 12:2 5 PM CDT R/O COVID-19 09/07/2023 09/07/2023 09/07/2023 9:52 PM KNIT GOODS CUTTER HAND documented as of this encounter Care Teams Shoe Ironer Relationship Specialty Start Date End Date Kassy Jay MD [address] [place] [phone] PCP - General Family Practice 12/04/22 documented as of this encounter
--- OUTSIDE RECORDS SUMMARY | 2025-08-02 18:47 | XMS_ITS | Encounter Summary ---
Author Organization [facility] Address [address] [place] [address] Care Team Providers Care Chauffeur Airport Limousine Name Role Phone Kassy Jay MD Primary Care Provider [phone] Encounter Details Date Type Department Care Team (Late Contact Info) Description 12/06/2007 Outpatient Historical [facility] Pediatrics - [facility] [address] [place] [address] [place] [address] [place] [address] Social History Tobacco Use Types Packs/Day Years Used Date Smoking Tobacco: Never Assessed Comments Unknown Sex and Gender Information Value Date Recorded Sex Assigned at Not on file Legal Sex Female 4:02 AM CRUSHING FOREMAN Gender Identity Not on file Sexual Orientation Not on file documented as of this encounter Plan of Treatment Upcoming Encounters Date Type Department Care Team (Late Contact Info) Description 08/15/2025 1:30 PM CRUSHING FOREMAN Office Visit [facility] Primary Care - [place] [address] [place] [phone] Kassy Jay MD [address] [place] [phone] 09/25/2025 8:30 AM CRUSHING FOREMAN Video Visit [facility] Adult Psychiatry [place] [address] [address] [place] [phone] Argelia Law NP [address] [address] [place] [address] documented as of this encounter Visit Diagnoses Not on filedocumented in this encounter Additional Health Concerns Infection Onset Date Last Indicated Resolved Time R/O COVID-19 06/02/2021 06/03/2021 06/03/2021 7:34 PM CDT R/O COVID-19 12/22/2022 12/22/2022 12/22/2022 12:2 5 PM CDT R/O COVID-19 09/07/2023 09/07/2023 09/07/2023 9:52 PM CRUSHING FOREMAN documented as of this encounter Care Teams Chauffeur [employer] Limousine Relationship Specialty Start Date End Date Kassy Jay MD [address] [place] [address] [phone] PCP - General Family Practice 12/04/22 documented as of this encounter
--- OUTSIDE RECORDS SUMMARY | 2025-08-02 18:47 | XMS_ITS | Encounter Summary ---
Author Organization [facility] Address [address] [place] [address] Care Team Providers Care Machine Ceramic Coater Name Role Phone Kassy Jay MD Primary Care Provider [phone] Encounter Details Date Type Department Care Team (Late st Contact Info) Description 08/11/2007 Orders Only [facility] Pediatrics - [facility] [address] [place] [address] [place] [address] [facility] [address] [place] [address] Social History Tobacco Use Types Packs/Day Years Used Date Smoking Tobacco: Never Assessed Comments Unknown Sex and Gender Information Value Date Recorded Sex Assigned at Not on file Legal Sex Female 4:02 AM AIRPORT MAINTENANCE LABORER Gender Identity Not on file Sexual [...] st Contact Info) Description 08/15/2025 1:30 PM AIRPORT MAINTENANCE LABORER Office Visit [facility] Primary Care - [place] [address] [place] [address] [phone] Kassy Jay MD [address] [place] [phone] 09/25/2025 8:30 AM AIRPORT MAINTENANCE LABORER Video Visit [facility] Adult Psychiatry [place] [address] [address] [place] [address] Argelia Law NP [address] [address] [place] [address] documented as of this encounter Visit Diagnoses Not on filedocumented in this encounter Additional Health Concerns Infection Onset Date Last Indicated Resolved Time R/O COVID-19 06/02/2021 06/03/2021 06/03/2021 7:34 PM CDT R/O COVID-19 12/22/2022 12/22/2022 12/22/2022 12:2 5 PM CDT R/O COVID-19 09/07/2023 09/07/2023 09/07/2023 9:52 PM AIRPORT MAINTENANCE LABORER documented as of this encounter Care Teams Machine Ceramic Coater Relationship Specialty Start Date End Date Kassy Jay MD [address] [place] [phone] PCP - General Family Practice 12/04/22 documented as of this encounter
--- OUTSIDE RECORDS SUMMARY | 2025-08-02 18:47 | XMS_ITS | Encounter Summary ---
Author Organization [facility] Address [address] [place] [address] Care Team Providers Care Animal Husbandry Technician Name Role Phone Kassy Jay MD Primary Care Provider [phone] Encounter Details Date Type Department Care Team (Late st Contact Info) Description 12/06/2007 Orders Only [facility] Pediatrics - [facility] [address] [place] [address] [place] [address] [facility] [address] [place] [address] Social History Tobacco Use Types Packs/Day Years Used Date Smoking Tobacco: Never Assessed Comments Unknown Sex and Gender Information Value Date Recorded Sex Assigned at Not on file Legal Sex Female 4:02 AM COREMAKER SUPERVISOR Gender Identity Not on file Sexual Orientation Not on file documented as of this encounter Progress Notes * Lacie Malik MD - 02/24/2008 6:49 PM CDT PATIENT'S AGE: 7 yrs, 9 mths, 1 wk, 3 days VITALS: TEMP: 98.4??f Oral PULSE: 116 Apical, Regular RESPIRATIONS: 20. WEIGHT: [id number] NURSE NAME: Lakeshia Fan J ACCOMPANIED BY: [...] st Contact Info) Description 08/15/2025 1:30 PM COREMAKER SUPERVISOR Office Visit [facility] Primary Care - [place] [address] [place] [phone] Kassy Jay MD [address] [place] [address] 09/25/2025 8:30 AM COREMAKER SUPERVISOR Video Visit [facility] Adult Psychiatry [place] [address] [address] [place] [address] Argelia Law NP [address] [address] [place] [address] documented as of this encounter Visit Diagnoses Not on filedocumented in this encounter Additional Health Concerns Infection Onset Date Last Indicated Resolved Time R/O COVID-19 06/02/2021 06/03/2021 06/03/2021 7:34 PM CDT R/O COVID-19 12/22/2022 12/22/2022 12/22/2022 12:2 5 PM CDT R/O COVID-19 09/07/2023 09/07/2023 09/07/2023 9:52 PM COREMAKER SUPERVISOR documented as of this encounter Care Teams Animal Husbandry Technician Relationship Specialty Start Date End Date Kassy Jay MD [address] [place] [phone] PCP - General Family Practice 12/04/22 documented as of this encounter
--- OUTSIDE RECORDS SUMMARY | 2025-08-02 18:47 | XMS_ITS | Clinical Summary ---
Author Organization [facility] Address [address] [place] [address] Care Team Providers Care Beauty Director Name Role Phone Kassy Jay MD Primary Care Provider [phone] No, Physician Unavailable Allergies Active Allergy Reactions [...] 08/25/2022 Assessment & Plan (08/26/2022 1:10 PM POT RELINER): - pt presenting after shaking episode similar to previous episodes of psychogenic nonepileptic seizures. 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 - Admitted for Observation secondary to sedation. Back to baseline mental status today. Assessment & Plan (08/25/2022 10:54 PM POT RELINER): - pt presenting after shaking episode similar [...] of hypoglycemia since April, was following with [facility] Endocrinology. Recently started on diazoxide. BG [...] sent hypoglycemia labs. Discussed with veronica, outpatient printed circuit board preassembler Dr. Mejia will f/u with results & [...] 07/20/2022 Assessment & Plan (08/25/2022 10:40 PM POT RELINER): -cont linzess Assessment & Plan (07/21/2022 10:08 AM CDT): - Continue home Linzess and Colace Assessment & Plan (07/20/2022 8:31 PM CDT): -Continue home Linzess and Colace. Asthma 11/06/2020 Assessment & Plan (08/26/2022 1:11 PM POT RELINER): - stable, cont home inhalers Assessment & Plan (08/25/2022 10:41 PM POT RELINER): -cont home inhalers Gastroesophageal reflux disease 11/06/2020 Assessment & Plan (08/26/2022 1:11 PM POT RELINER): -cont pepcid and ppi Assessment & Plan (08/25/2022 10:40 PM POT RELINER): - cont pepcid and ppi Assessment & [...] 9:01 AM CDT): Patient reports follows with [facility] psychiatry. Pharmacy list confirmed with patient. Concern of polypharmacy discussed with patient. - witnessed pseudoseizure 07/22 AM, VS stable and BG 111. No meds given. Self resolved. - Continue home Lamictal, Topomax and gabapentin Assessment & Plan (07/20/2022 8:27 PM CDT): -Patient reports follows with [facility] psychiatry. Pharmacy list confirmed with patient. [...] celexa Assessment & Plan (08/26/2022 1:11 PM POT RELINER): - patient with chart history of BARBIE, MDD, ptsd, and borderline personality disorder. - follows with psychiatrist and on extensive medication regimen. - cont home duloxetine, lurasidone, lamotrigine, and prazosin. - held several medications including nortriptyline, temazepam,clonazepam and gabapentin given drowsiness Assessment & Plan (08/25/2022 10:46 PM POT RELINER): - patient with chart history of BARBIE, [...] 01/21/2017 Overview (05/17/2020): Overview: Overview: [facility]; has follow up with 02/06/17 Asthma, [...] on file Legal Sex Female 11:33 PM POT RELINER Gender Identity Female 05/17/2020 9:28 AM CDT Sexual Orientation Straight 05/17/2020 9: 28 AM CDT Last Filed Vital Signs Vital Sign Reading Time Taken Comments Blood Pressure 106/54 08/26/2022 8:50 AM POT RELINER Pulse 92 08/26/2022 8:18 AM POT RELINER Temperature 36.6 C (97.9 F) 08/26/2022 8:18 AM POT RELINER Respiratory Rate 16 08/26/2022 8:18 AM POT RELINER Oxygen Saturation 97% 08/26/2022 8:18 AM POT RELINER Inhaled Oxygen Concentration - - Weight 93.4 kg (205 lb 14.4 oz) 022 11:06 PM POT RELINER Height 154.9 cm (5' 1) 08/25/2022 11:0 6 PM POT RELINER Body Mass Index 38.9 08/25/2022 11:06 PM POT RELINER Plan of Treatment Health Maintenance Due Date Last Done Comments Cervical Cancer Screening 1998 Hepatitis C Screening 1998 Regular Well Visit/Exam 18-64 02/26/2016 Pneumococcal vaccine <65 (1 of 2 - PCV) 2017 Depression Screening 08/25/2023 08/25/2022, 08/25/20 22 HPV Vaccines (1 - 3-dose SCD M series) 2025 Covid-19 Vaccine (4 - 2024-2 6 season) 2025 07/15/2021, 11/24/2020, 10/27/2020 Influenza Vaccine (#1) 2025 3, 06/20/2022, 06/05/2022, Additional history exists DTaP/Tdap/Td Vaccine (10 - T d or Tdap) 05/16/2031 05/16/2021, 02/15/2020, 03/05/2011, Additional history exists Hepatitis B Screening Completed 1998 , 1998, 1998 Varicella Vaccines Completed 02/15/2016, 02/26/1999 Insurance [facility]UE [facility] CHO[facility] OOS Member Subscriber Plan / Payer (Ef fective 2017-Present) Name:Isaura Holland Relation to Subscriber:Child Name:ORIN HOLLAND Date of :[birth year]99 (Home) Address: [address] [place] [address] Payer ID:[id number] (NAIC) Type:[employer] Address: [address] [place]UE [place] [employer] [employer] [place] [address] Advance Directives For more information, please contact: [phone] * Full Code (Latest Code Status on File) Date Activated Date Inactivated Comments 08/25/2022 11:05 PM 08/26/2022 6:08 PM * Full Code Date Activated Date Inactivated Comments 07/20/2022 7:11 PM 07/23/2022 7:19 PM Care Teams Beauty Director Relationship Specialty Start Date End Date Kassy Jay MD [address] [place] [phone] PCP - General Family Practice 07/21/22 No, Physician 08/26/22
--- OUTSIDE RECORDS SUMMARY | 2025-08-02 18:47 | XMS_ITS | Encounter Summary ---
Author Organization [facility] Address [address] [place] [address] Care Team Providers Care Electric Powerline Examiner Name Role Phone Kassy Jay MD Primary Care Provider [phone] Encounter Details Date Type Department Care Team (Late Contact Info) Description 12/06/2007 Outpatient Historical [facility] Pediatrics - [facility] [address] [place] [address] [place] [address] [place] [address] Social History Tobacco Use Types Packs/Day Years Used Date Smoking Tobacco: Never Assessed Comments Unknown Sex and Gender Information Value Date Recorded Sex Assigned at Not on file Legal Sex Female 4:02 AM ANTIQUE CLOCKS REPAIRER Gender Identity Not on file Sexual Orientation Not on file documented as of this encounter Plan of Treatment Upcoming Encounters Date Type Department Care Team (Late Contact Info) Description 08/15/2025 1:30 PM ANTIQUE CLOCKS REPAIRER Office Visit [facility] Primary Care - Kirby Herrmann [address] [place] [phone] Kassy Jay MD [address] [place] [phone] 09/25/2025 8:30 AM ANTIQUE CLOCKS REPAIRER Video Visit [facility] Adult Psychiatry [place] [address] [address] [place] [phone] Argelia Law NP [address] [address] [place] [address] documented as of this encounter Visit Diagnoses Not on filedocumented in this encounter Additional Health Concerns Infection Onset Date Last Indicated Resolved Time R/O COVID-19 06/02/2021 06/03/2021 06/03/2021 7:34 PM CDT R/O COVID-19 12/22/2022 12/22/2022 12/22/2022 12:2 5 PM CDT R/O COVID-19 09/07/2023 09/07/2023 09/07/2023 9:52 PM ANTIQUE CLOCKS REPAIRER documented as of this encounter Care Teams Electric Powerline Examiner Relationship Specialty Start Date End Date Kassy Jay MD [address] [place] [phone] PCP - General Family Practice 12/04/22 documented as of this encounter
--- OUTSIDE RECORDS SUMMARY | 2025-08-02 18:47 | XMS_ITS | Encounter Summary ---
Author Organization [facility] Address [address] [place] [address] Care Team Providers Care Warehouse Inventory Clerk Name Role Phone Kassy Jay MD Primary Care Provider [phone] Encounter Details Date Type Department Care Team (Late Contact Info) Description 12/06/2007 Outpatient Historical [facility] Pediatrics - [facility] [address] [place] [address] [place] [address] [place] [address] Social History Tobacco Use Types Packs/Day Years Used Date Smoking Tobacco: Never Assessed Comments Unknown Sex and Gender Information Value Date Recorded Sex Assigned at Not on file Legal Sex Female 4:02 AM HOUSE PAINTING INSTRUCTOR Gender Identity Not on file Sexual Orientation Not on file documented as of this encounter Plan of Treatment Upcoming Encounters Date Type Department Care Team (Late Contact Info) Description 08/15/2025 1:30 PM HOUSE PAINTING INSTRUCTOR Office Visit [facility] Primary Care - Kirby Herrmann [address] [place] [phone] Kassy Jay MD [address] [place] [phone] 09/25/2025 8:30 AM HOUSE PAINTING INSTRUCTOR Video Visit [facility] Adult Psychiatry [place] [address] [address] [place] [phone] Argelia Law NP [address] [address] [place] [address] documented as of this encounter Visit Diagnoses Not on filedocumented in this encounter Additional Health Concerns Infection Onset Date Last Indicated Resolved Time R/O COVID-19 06/02/2021 06/03/2021 06/03/2021 7:34 PM CDT R/O COVID-19 12/22/2022 12/22/2022 12/22/2022 12:2 5 PM CDT R/O COVID-19 09/07/2023 09/07/2023 09/07/2023 9:52 PM HOUSE PAINTING INSTRUCTOR documented as of this encounter Care Teams Warehouse Inventory Clerk Relationship Specialty Start Date End Date Kassy Jay MD [address] [place] [address] [phone] PCP - General Family Practice 12/04/22 documented as of this encounter
--- NOTE | 2025-08-02 19:10 | ECG_ITS ---
Test Date: 2025-08-02 20:03:28 Measurements Intervals [place] Rate: 68 P: 30 MA: 152 QRS: -1 QRSD: 90 T: 50 QT: 385 QTc: 411 Interpretive Statements SINUS RHYTHM VOLTAGE CRITERIA FOR LVH, CONSIDER NORMAL VARIANT Electronically Signed On 08-02-2025 22:34:16 CARPENTER REPAIRER by Ramírez Casas D.O
--- NOTE | 2025-08-02 19:19 | PC.NURSE ---
Pt. attempted to get out of bed stating I wanna go home. Bed alarm under pt. Pt. is A&Ox1. Speech clear. Pt. states she has nobody we can contact for her. No contacts listed in chart.
--- NOTE | 2025-08-02 19:25 | PC.NURSE ---
asked pt if she could go to the bathroom to provide us a sample and she said she did nto have to go at this time. pt reports that I want to go home
--- NOTE | 2025-08-02 19:31 | ED.GENADULT ---
HPI - General Adult General Chief complaint: Seizure Stated complaint: possible seizure? Time Seen by Provider: 08/02/25 19:19 History of Present Illness HPI narrative: 25-year-old female present to the emergency department for evaluation after having a suspected nonepileptic seizure. Patient does have a history of nonepileptic seizures and states she no longer has follow-up with Neurology. Patient states she no longer has follow-up with her counselor either. Patient states this is primarily due to an insurance issue and patient reports that her insurance is now valid and that she is going to start having therapy sessions again this July. Patient arrived to the emergency department via EMS for having a pseudo-seizure or syncopal episode in the bathroom at work. Patient suspects that she did strike her head. Patient is complaining of midline cervical spine tenderness. Related Data Home Medications ?Medication ?Instructions ?Recorded ?Confirmed ?Last Taken ?Type benztropine 1 mg tablet 1 mg PO BID 06/22/25 07/18/25 07/18/25 History cariprazine 6 mg capsule (Vraylar) 6 mg PO DAILY 06/22/25 07/18/25 07/18/25 History famotidine 20 mg tablet (Pepcid) 20 mg PO BID 06/22/25 07/18/25 07/18/25 History fluoxetine 20 mg capsule 20 mg PO DAILY 06/22/25 07/18/25 07/18/25 History fluoxetine 40 mg capsule 40 mg PO DAILY 06/22/25 07/18/25 07/18/25 History lorazepam 2 mg tablet 2 mg PO TID 06/22/25 07/18/25 07/18/25 History methylphenidate HCl 18 mg 18 mg PO ONCE 06/22/25 07/18/25 07/18/25 History tablet,extended release 24 hr (Concerta) methylphenidate HCl 5 mg tablet 5 mg PO BID 06/22/25 07/18/25 07/18/25 History (Ritalin) thiamine HCl (vitamin B1) 250 mg 250 mg PO DAILY 06/22/25 07/18/25 07/18/25 History tablet (Vitamin B-1) trazodone 100 mg tablet 200 mg PO HS 06/22/25 07/18/25 07/17/25 History Allergies Allergy/AdvReac Type Severity Reaction Status Date / Time amoxicillin Allergy Severe Anaphylaxis Verified 10/28/25 10:09 Review of Systems Review of Systems: All systems reviewed & are unremarkable except as noted in HPI and below PMFSH Past Medical History Medical History Anxiety GERD (gastroesophageal reflux disease) Bipolar disorder Exam Narrative: APPEARANCE: Well appearing, no pain, no distress, well-nourished. HEAD: normocephalic, atraumatic. EYES: PERRLA/EOMI, conjunctivae clear. NOSE: Normal no drainage EARS:TMS clear with good light reflex. THROAT: Pharynx clear, no exudate. NECK: Supple. No adenopathy, no masses. RESPIRATORY: Airway patent, respirations nonlabored. Clear to auscultation bilaterally, no rales, rhonchi, wheezing. CARDIOVASCULAR: Regular rate and rhythm without murmurs rubs or gallops. ABDOMINAL: Soft, nontender, nondistended, normal bowel sounds MUSCULOSKELETAL: Moves all extremities. Strength/ROM intact, No edema, No calf tenderness. NEURO: Alert. Cranial nerves II through XII intact. Good gait. Good coordination SKIN: Warm, dry. Normal Color Course Vital Signs Vital signs: Vital Signs Temperature 97.8 F 08/02/25 18:46 Pulse Rate 86 08/02/25 18:46 Respiratory Rate 16 08/02/25 18:46 Blood Pressure 130/88 08/02/25 18:46 Pulse Oximetry 98 08/02/25 18:46 Oxygen Delivery Room Air 08/02/25 18:46 Temperature 97.8 F 08/02/25 18:46 Pulse Rate 88 08/02/25 20:20 Respiratory Rate 16 08/02/25 20:20 Blood Pressure 126/72 08/02/25 20:20 Pulse Oximetry 98 08/02/25 20:20 Oxygen Delivery Room Air 08/02/25 18:46 Medical Decision Making MDM Narrative Medical decision making narrative: 25-year-old female present to the emergency department for evaluation after having a suspected nonepileptic seizure during which she struck her head. Upon arrival emergency department patient was in a C-collar and patient did complain of head pain and midline cervical spine tenderness. CT brain CT cervical spine were negative. Patient was cleared from the C-collar. Plan time of re-evaluation patient is alert and appropriate and back to her normal baseline. Patient is requesting discharge home. Patient was strongly encouraged to have close follow-up with her counselor. Differential Diagnosis Differential Diagnosis: Non epileptic seizure, subdural hematoma, subarachnoid hemorrhage, cervical spine fracture Vital Signs Vital Signs: Vital Signs Temperature 97.8 F 08/02/25 18:46 Pulse Rate 86 08/02/25 18:46 Respiratory Rate 16 08/02/25 18:46 Blood Pressure 130/88 08/02/25 18:46 Pulse Oximetry 98 08/02/25 18:46 Oxygen Delivery Room Air 08/02/25 18:46 Temperature 97.8 F 08/02/25 18:46 Pulse Rate 88 08/02/25 20:20 Respiratory Rate 16 08/02/25 20:20 Blood Pressure 126/72 08/02/25 20:20 Pulse Oximetry 98 08/02/25 20:20 Oxygen Delivery Room Air 08/02/25 18:46 Lab Data Lab results reviewed: Yes I reviewed the patient's lab results. 08/02/25 19:21 08/02/25 19:21 Labs: Lab Results 08/02/25 Range/Units 19:21 WBC 13.9 H (4.5-10.0) K/mm3 RBC 5.16 (4.2-5.4) M/mm3 Hgb 14.9 (12.0-15.0) g/dL Hct 43.9 (37.0-47.0) % MCV 85.1 (80-100) fl MCH 28.9 (26-34) pg MCHC 33.9 (32-36) g/dl RDW 11.9 (11.5-14.5) % Plt Count 336 (150-375) k/mm3 MPV 9.5 (7.4-10.4) fl Immature Gran % (Auto) 0.4 (0-0.5) % Neut % (Auto) 68.4 (45.5-73.1) % Lymph % (Auto) 22.4 (18.3-44.2) % [place] % (Auto) 7.7 (2.6-8.5) % Eos % (Auto) 0.7 (0-4.4) % Baso % (Auto) 0.4 (0.2-1.2) % Lymph # (Auto) 3.11 (0.9-3.2) K/mm3 [place] # (Auto) 1.1 H (0.1-0.6) K/mm3 Eos # (Auto) 0.1 (0-0.3) K/mm3 Baso # (Auto) 0.1 (0.0-0.1) K/mm3 Abs Immat Gran (auto) 0.05 H (0.00-0.031) K/mm3 Absolute Neuts (auto) 9.5 H (1.3-6.7) K/mm3 Absolute Nucleated RBC 0.000 (0.0-0.012) K/mm3 Nucleated RBC % 0.0 (0.0-0.2) % Sodium 136 L (137-145) mmol/L Potassium 3.8 (3.4-5.0) mmol/L Chloride 104 (98-107) mmol/L Carbon Dioxide 20 L (22-30) mmol/L Anion Gap 12 (4-12) mmol/L BUN 13 D (7-17) mg/dL Creatinine 0.50 L (0.7-1.0) mg/dL Estim Creat Clear Calc 134 ml/min Estimated GFR > 60 (59 - ) Glucose 97 (65-110) mg/dL Lactic Acid 0.7 (0.7-2.0) mmol/L Calcium 9.9 (8.4-10.2) mg/dL Total Bilirubin 0.3 (0.2-1.3) mg/dL AST 47 H (14-36) U/L ALT 24 (6-35) U/L Alkaline Phosphatase 68 (38-126) U/L Total Protein 8.0 (6.3-8.2) g/dL Albumin 4.9 (3.5-5.1) g/dL Discharge Plan Discharge Clinical Impression: Head injury Patient Disposition: Home Condition: Stable Instructions: Antibiotic Form, Nonepileptic Seizures (ED) Additional Instructions: Continued to seek outpatient follow-up with your counselor as. Have follow-up with neurology. If you have any worsening symptoms then please call or return to the emergency department Patient Language: Belarusian Prescriptions: No Action benztropine 1 mg tablet 1 mg PO BID methylphenidate HCl [Concerta] 18 mg tablet extended release 24hr 18 mg PO ONCE famotidine [Pepcid] 20 mg tablet 20 mg PO BID fluoxetine 40 mg capsule 40 mg PO DAILY lorazepam 2 mg tablet 2 mg PO TID fluoxetine 20 mg capsule 20 mg PO DAILY methylphenidate HCl [Ritalin] 5 mg tablet 5 mg PO BID trazodone 100 mg tablet 200 mg PO HS thiamine HCl (vitamin B1) [Vitamin B-1] 250 mg tablet 250 mg PO DAILY Vraylar 6 mg capsule 6 mg PO DAILY Follow-up/Referrals: UNKNOWN,DOCTOR [Primary Care Provider]
[2025-08-02 19:33] LABS: Hematocrit 43.9 % (37.0-47.0); Hemoglobin 14.9 g/dL (12.0-15.0); Immature Granulocyte Percent A 0.4 % (0-0.5); Lymphocytes Absolute Auto 3.11 K/mm3 (0.9-3.2); Mean Corpuscular HGB Conc 33.9 g/dl (32-36); Mean Corpuscular Hemoglobin 28.9 pg (26-34); Mean Corpuscular Volume 85.1 fl (80-100); Nucleated Red Blood Cells Absolute Auto 0.000 K/mm3 (0.0-0.012); Nucleated Red Blood Cells Perc 0.0 % (0.0-0.2); Platelet Count Result 336 k/mm3 (150-375); Red Blood Count 5.16 M/mm3 (4.2-5.4); White Blood Count 13.9 K/mm3 (4.5-10.0)
--- NOTE | 2025-08-02 19:42 | PC.NURSE ---
This RN and Blanca Godfrey RN asked the pt if she had anyone we could reach out to for her and she stated No. i dont want them to know i am here. they dont even live in this state. pts emergency contact is the [facility] main line.
--- NOTE | 2025-08-02 19:43 | PC.NURSE ---
pt was found by this RN wandering the hallway stating i want to go home. pt is still A&Ox1. pt was brought back to bed bed alarm in place
--- NOTE | 2025-08-02 19:57 | PC.NURSE ---
Dr. Rouse at bedside talking with pt. Pt. refusing urine sample at this time. Dr. Rouse aware.
--- OUTSIDE RECORDS SUMMARY | 2025-08-02 20:11 | XMS_ITS | Encounter Summary ---
Author Organization [facility] Address [address] [place] [address] Care Team Providers Care Hand Trimmer Name Role Phone Kassy Jay MD Primary Care Provider [phone] Encounter Details Date Type Department Care Team (Late Contact Info) Description 09/02/2004 Outpatient Historical [facility] Pediatrics - [facility] [address] [place] [address] [place] [address] [place] [address] Social History Tobacco Use Types Packs/Day Years Used Date Smoking Tobacco: Never Assessed Comments Unknown Sex and Gender Information Value Date Recorded Sex Assigned at Not on file Legal Sex Female 4:02 AM MEDICAL OFFICE COORDINATOR Gender Identity Not on file Sexual Orientation Not on file documented as of this encounter Plan of Treatment Upcoming Encounters Date Type Department Care Team (Late Contact Info) Description 08/15/2025 1:30 PM MEDICAL OFFICE COORDINATOR Office Visit [facility] Primary Care - Kirby Herrmann [address] [place] [phone] Kassy Jay MD [address] [place] [phone] 09/25/2025 8:30 AM MEDICAL OFFICE COORDINATOR Video Visit [facility] Adult Psychiatry Var[place] [address] [address] [address] [phone] Argelia Law NP [address] [address] [address] [place] [address] documented as of this encounter Visit Diagnoses Not on filedocumented in this encounter Additional Health Concerns Infection Onset Date Last Indicated Resolved Time R/O COVID-19 06/02/2021 06/03/2021 06/03/2021 7:34 PM CDT R/O COVID-19 12/22/2022 12/22/2022 12/22/2022 12:2 5 PM CDT R/O COVID-19 09/07/2023 09/07/2023 09/07/2023 9:52 PM MEDICAL OFFICE COORDINATOR documented as of this encounter Care Teams Hand Trimmer Relationship Specialty Start Date End Date Kassy Jay MD [address] [place] [address] [phone] PCP - General Family Practice 12/04/22 documented as of this encounter
--- OUTSIDE RECORDS SUMMARY | 2025-08-02 20:11 | XMS_ITS | Encounter Summary ---
Author Organization [facility] Address [address] [place] [address] Care Team Providers Care Erosion Control Coordinator Name Role Phone Kassy Jay MD Primary Care Provider [phone] Encounter Details Date Type Department Care Team (Latest Contact Info) Description 02/13/2005 Outpatient Historical [facility] Gustavo Sims ASTHMA UNSPECIFIED (Primary Dx) Social History Tobacco Use Types Packs/Day Years Used Date Smoking Tobacco: Never Assessed Comments Unknown Sex and Gender Information Value Date Recorded Sex Assigned at Not on file Legal Sex Female 4:02 AM ICE SCRAPER Gender Identity Not on file Sexual Orientation Not on file documented as of this encounter Plan of Treatment Upcoming Encounters Date Type Department Care Team (Late st Contact Info) Description 08/15/2025 1:30 PM ICE SCRAPER Office Visit [facility] Primary Care - Kirby Herrmann [address] [place] [phone] Kassy Jay MD [address] [place] [address] [phone] 09/25/2025 8:30 AM ICE SCRAPER Video Visit [facility] Adult Psychiatry [place] [address] [address] [address] [place] [phone] Argelia Law NP [address] [address] [address] [place] [address] documented as of this encounter Visit Diagnoses Diagnosis Unspecified asthma(493.90)- Primary Unspecified asthma documented in this encounter Additional Health Concerns Infection Onset Date Last Indicated Resolved Time R/O COVID-19 06/02/2021 06/03/2021 06/03/2021 7:34 PM CDT R/O COVID-19 12/22/2022 12/22/2022 12/22/2022 12:2 5 PM CDT R/O COVID-19 09/07/2023 09/07/2023 09/07/2023 9:52 PM ICE SCRAPER documented as of this encounter Care Teams Erosion Control Coordinator Relationship Specialty Start Date End Date Kassy Jay MD [address] [place] [address] [phone] PCP - General Family Practice 12/04/22 documented as of this encounter
--- OUTSIDE RECORDS SUMMARY | 2025-08-02 20:11 | XMS_ITS | Encounter Summary ---
Author Organization [facility] Address [address] [place] [address] Care Team Providers Care Process Eng Name Role Phone Kassy Jay MD Primary Care Provider [phone] Encounter Details Date Type Department Care Team (Late Contact Info) Description 11/08/2004 Outpatient Historical [facility] Pediatrics - [facility] [address] [place] [address] [place] [address] [place] [address] Social History Tobacco Use Types Packs/Day Years Used Date Smoking Tobacco: Never Assessed Comments Unknown Sex and Gender Information Value Date Recorded Sex Assigned at Not on file Legal Sex Female 4:02 AM BREAD JOCKEY Gender Identity Not on file Sexual Orientation Not on file documented as of this encounter Plan of Treatment Upcoming Encounters Date Type Department Care Team (Late Contact Info) Description 08/15/2025 1:30 PM BREAD JOCKEY Office Visit [facility] Primary Care - Kirby Herrmann [address] [place] [phone] Kassy Jay MD [address] [phone] 09/25/2025 8:30 AM BREAD JOCKEY Video Visit [facility] Adult Psychiatry [place] [address] [address] [address] [phone] Argelia Law NP [address] [address] [address] [address] documented as of this encounter Visit Diagnoses Not on filedocumented in this encounter Additional Health Concerns Infection Onset Date Last Indicated Resolved Time R/O COVID-19 06/02/2021 06/03/2021 06/03/2021 7:34 PM CDT R/O COVID-19 12/22/2022 12/22/2022 12/22/2022 12:2 5 PM CDT R/O COVID-19 09/07/2023 09/07/2023 09/07/2023 9:52 PM BREAD JOCKEY documented as of this encounter Care Teams Process Eng Relationship Specialty Start Date End Date Kassy Jay MD [address] [place] [address] [phone] PCP - General Family Practice 12/04/22 documented as of this encounter
--- OUTSIDE RECORDS SUMMARY | 2025-08-02 20:11 | XMS_ITS | Encounter Summary ---
Author Organization [facility] Address [address] [place] [address] Care Team Providers Care Nitrocellulose Operator Name Role Phone Kassy Jay MD Primary Care Provider [phone] Encounter Details Date Type Department Care Team (Late Contact Info) Description 09/02/2004 Outpatient Historical [facility] Pediatrics - [facility] [address] [facility] [address] [place] [address] [place] [address] [place] [address] Social History Tobacco Use Types Packs/Day Years Used Date Smoking Tobacco: Never Assessed Comments Unknown Sex and Gender Information Value Date Recorded Sex Assigned at Not on file Legal Sex Female 4:02 AM FAMILY SERVICES MANAGER Gender Identity Not on file Sexual Orientation Not on file documented as of this encounter Plan of Treatment Upcoming Encounters Date Type Department Care Team (Late Contact Info) Description 08/15/2025 1:30 PM FAMILY SERVICES MANAGER Office Visit [facility] Primary Care - Kirby Herrmann [address] [place] [phone] Kassy Jay MD [address] [place] [phone] 09/25/2025 8:30 AM FAMILY SERVICES MANAGER Video Visit [facility] Adult Psychiatry Var[place] [address] [address] [place] [address] Argelia Law NP [address] [address] [place] [address] documented as of this encounter Visit Diagnoses Not on filedocumented in this encounter Additional Health Concerns Infection Onset Date Last Indicated Resolved Time R/O COVID-19 06/02/2021 06/03/2021 06/03/2021 7:34 PM CDT R/O COVID-19 12/22/2022 12/22/2022 12/22/2022 12:2 5 PM CDT R/O COVID-19 09/07/2023 09/07/2023 09/07/2023 9:52 PM FAMILY SERVICES MANAGER documented as of this encounter Care Teams Nitrocellulose Operator Relationship Specialty Start Date End Date Kassy Jay MD [address] [place] [address] [address] PCP - General Family Practice 12/04/22 documented as of this encounter
--- OUTSIDE RECORDS SUMMARY | 2025-08-02 20:11 | XMS_ITS | Encounter Summary ---
Author Organization [facility] Address [address] [place] [address] Care Team Providers Care Street Sprinkler Name Role Phone Kassy Jay MD Primary Care Provider [phone] Encounter Details Date Type Department Care Team (Late Contact Info) Description 11/08/2004 Outpatient Historical [facility] Pediatrics - [facility] [address] [place] [address] [place] [address] [place] [address] Social History Tobacco Use Types Packs/Day Years Used Date Smoking Tobacco: Never Assessed Comments Unknown Sex and Gender Information Value Date Recorded Sex Assigned at Not on file Legal Sex Female 4:02 AM CHANNEL CEMENTER Gender Identity Not on file Sexual Orientation Not on file documented as of this encounter Plan of Treatment Upcoming Encounters Date Type Department Care Team (Late Contact Info) Description 08/15/2025 1:30 PM CHANNEL CEMENTER Office Visit [facility] Primary Care - Kirby Herrmann [address] [place] [address] [phone] Kassy Jay MD [address] [place] [phone] 09/25/2025 8:30 AM CHANNEL CEMENTER Video Visit [facility] Adult Psychiatry Var[place] [address] [address] [place] [phone] Argelia Law NP [address] [address] [place] [address] documented as of this encounter Visit Diagnoses Not on filedocumented in this encounter Additional Health Concerns Infection Onset Date Last Indicated Resolved Time R/O COVID-19 06/02/2021 06/03/2021 06/03/2021 7:34 PM CDT R/O COVID-19 12/22/2022 12/22/2022 12/22/2022 12:2 5 PM CDT R/O COVID-19 09/07/2023 09/07/2023 09/07/2023 9:52 PM CHANNEL CEMENTER documented as of this encounter Care Teams Street Sprinkler Relationship Specialty Start Date End Date Kassy Jay MD [address] [place] [address] [address] PCP - General Family Practice 12/04/22 documented as of this encounter
--- OUTSIDE RECORDS SUMMARY | 2025-08-02 20:11 | XMS_ITS | Encounter Summary ---
Author Organization [facility] Address [address] [place] [address] Care Team Providers Care Venue Attendant Name Role Phone Kassy Jay MD Primary Care Provider [phone] Encounter Details Date Type Department Care Team (Late Contact Info) Description 02/13/2005 Outpatient Historical [facility] Childrens Respiratory and Sleep Medicine [address] [facility] [address] [address] Gustavo Sims Social History Tobacco Use Types Packs/Day Years Used Date Smoking Tobacco: Never Assessed Comments Unknown Sex and Gender Information Value Date Recorded Sex Assigned at Not on file Legal Sex Female 4:02 AM HIDES AND SKINS COLORER Gender Identity Not on file Sexual Orientation Not on file documented as of this encounter Plan of Treatment Upcoming Encounters Date Type Department Care Team (Late Contact Info) Description 08/15/2025 1:30 PM HIDES AND SKINS COLORER Office Visit [facility] Primary [place] [address] [phone] Kassy Jay MD [address] [place] [address] 09/25/2025 8:30 AM HIDES AND SKINS COLORER Video Visit [facility] Adult Psychiatry [address] [address] [address] [place] [phone] [place], Argelia Lopez NP [address] [address] [place] [address] documented as of this encounter Visit Diagnoses Not on filedocumented in this encounter Additional Health Concerns Infection Onset Date Last Indicated Resolved Time R/O COVID-19 06/02/2021 06/03/2021 06/03/2021 7:34 PM CDT R/O COVID-19 12/22/2022 12/22/2022 12/22/2022 12:2 5 PM CDT R/O COVID-19 09/07/2023 09/07/2023 09/07/2023 9:52 PM HIDES AND SKINS COLORER documented as of this encounter Care Teams Venue Attendant Relationship Specialty Start Date End Date Kassy Jay MD [address] [facility] [address] [address] PCP - General Family Practice 12/04/22 documented as of this encounter
--- OUTSIDE RECORDS SUMMARY | 2025-08-02 20:11 | XMS_ITS | Encounter Summary ---
Author Organization [facility] Address [address] [place] [address] Care Team Providers Care Wood Patternmaker Apprentice Name Role Phone Kassy Jay MD Primary Care Provider [phone] Encounter Details Date Type Department Care Team (Late Contact Info) Description 02/13/2005 Outpatient Historical [facility] Childrens Respiratory and Sleep Medicine [address] [facility] [address] [address] Gustavo Sims Social History Tobacco Use Types Packs/Day Years Used Date Smoking Tobacco: Never Assessed Comments Unknown Sex and Gender Information Value Date Recorded Sex Assigned at Not on file Legal Sex Female 4:02 AM CELL BIOLOGY SCIENTIST Gender Identity Not on file Sexual Orientation Not on file documented as of this encounter Plan of Treatment Upcoming Encounters Date Type Department Care Team (Late Contact Info) Description 08/15/2025 1:30 PM CELL BIOLOGY SCIENTIST Office Visit [facility] [place] [address] [place] [phone] Kassy Jay MD [address] [place] [address] 09/25/2025 8:30 AM CELL BIOLOGY SCIENTIST Video Visit [facility] Adult Psychiatry [place] [address] [address] [place] [phone] [place], Argelia Lopez NP [address] [address] [place] [address] documented as of this encounter Visit Diagnoses Not on filedocumented in this encounter Additional Health Concerns Infection Onset Date Last Indicated Resolved Time R/O COVID-19 06/02/2021 06/03/2021 06/03/2021 7:34 PM CDT R/O COVID-19 12/22/2022 12/22/2022 12/22/2022 12:2 5 PM CDT R/O COVID-19 09/07/2023 09/07/2023 09/07/2023 9:52 PM CELL BIOLOGY SCIENTIST documented as of this encounter Care Teams Wood Patternmaker Apprentice Relationship Specialty Start Date End Date Kassy Jay MD [address] [facility] [address] [place] [address] PCP - General Family Practice 12/04/22 documented as of this encounter
--- OUTSIDE RECORDS SUMMARY | 2025-08-02 20:12 | XMS_ITS | Encounter Summary ---
Author Organization [facility] Address [address] [place] [address] Care Team Providers Care Clerical Clerk Name Role Phone Kassy Jay MD Primary Care Provider [phone] Encounter Details Date Type Department Care Team (Late Contact Info) Description 07/18/2004 Outpatient Historical [facility] Pediatrics - [facility] [address] [place] [address] [place] [address] [place] [address] Social History Tobacco Use Types Packs/Day Years Used Date Smoking Tobacco: Never Assessed Comments Unknown Sex and Gender Information Value Date Recorded Sex Assigned at Not on file Legal Sex Female 4:02 AM CONTRACTOR GENERAL ENGINEERING Gender Identity Not on file Sexual Orientation Not on file documented as of this encounter Plan of Treatment Upcoming Encounters Date Type Department Care Team (Late Contact Info) Description 08/15/2025 1:30 PM CONTRACTOR GENERAL ENGINEERING Office Visit [facility] Primary Care - Kirby Herrmann [address] [address] [phone] Kassy Jay MD [address] [place] [phone] 09/25/2025 8:30 AM CONTRACTOR GENERAL ENGINEERING Video Visit [facility] Adult Psychiatry Varinder [address] [address] [place] [address] Argelia Law NP [address] [address] [place] [address] documented as of this encounter Visit Diagnoses Not on filedocumented in this encounter Additional Health Concerns Infection Onset Date Last Indicated Resolved Time R/O COVID-19 06/02/2021 06/03/2021 06/03/2021 7:34 PM CDT R/O COVID-19 12/22/2022 12/22/2022 12/22/2022 12:2 5 PM CDT R/O COVID-19 09/07/2023 09/07/2023 09/07/2023 9:52 PM CONTRACTOR GENERAL ENGINEERING documented as of this encounter Care Teams Clerical Clerk Relationship Specialty Start Date End Date Kassy Jay MD [address] [place] [address] [phone] PCP - General Family Practice 12/04/22 documented as of this encounter
--- OUTSIDE RECORDS SUMMARY | 2025-08-02 20:12 | XMS_ITS | Encounter Summary ---
Author Organization [facility] Address [address] [place] [address] Care Team Providers Care Home Health Administrator Name Role Phone Kassy Jay MD Primary Care Provider [phone] Encounter Details Date Type Department Care Team (Latest Contact Info) Description 03/27/2004 Outpatient Historical [facility] Gustavo Sims ASTHMA UNSPECIFIED (Primary Dx) Social History Tobacco Use Types Packs/Day Years Used Date Smoking Tobacco: Never Assessed Comments Unknown Sex and Gender Information Value Date Recorded Sex Assigned at Not on file Legal Sex Female 4:02 AM MATERIAL CONTROL MANAGER Gender Identity Not on file Sexual Orientation Not on file documented as of this encounter Plan of Treatment Upcoming Encounters Date Type Department Care Team (Late st Contact Info) Description 08/15/2025 1:30 PM MATERIAL CONTROL MANAGER Office Visit [facility] Primary Care - Kirby Herrmann [address] [address] [phone] Kassy Jay MD [address] [place] [address] [phone] 09/25/2025 8:30 AM MATERIAL CONTROL MANAGER Video Visit [facility] Adult Psychiatry [facility] [address] [address] [place] [phone] Argelia Law NP [address] [address] [place] [address] documented as of this encounter Visit Diagnoses Diagnosis Unspecified asthma(493.90)- Primary Unspecified asthma documented in this encounter Additional Health Concerns Infection Onset Date Last Indicated Resolved Time R/O COVID-19 06/02/2021 06/03/2021 06/03/2021 7:34 PM CDT R/O COVID-19 12/22/2022 12/22/2022 12/22/2022 12:2 5 PM CDT R/O COVID-19 09/07/2023 09/07/2023 09/07/2023 9:52 PM MATERIAL CONTROL MANAGER documented as of this encounter Care Teams Home Health Administrator Relationship Specialty Start Date End Date Kassy Jay MD [address] [place] [address] [phone] PCP - General Family Practice 12/04/22 documented as of this encounter
--- OUTSIDE RECORDS SUMMARY | 2025-08-02 20:12 | XMS_ITS | Encounter Summary ---
Author Organization [facility] Address [address] [place] [address] Care Team Providers Care Manager Pacu Name Role Phone Kassy Jay MD Primary Care Provider [phone] Encounter Details Date Type Department Care Team (Late Contact Info) Description 10/09/2003 Outpatient Historical [facility] Childrens Respiratory and Sleep Medicine [address] [facility] [address] [address] Gustavo Sims Social History Tobacco Use Types Packs/Day Years Used Date Smoking Tobacco: Never Assessed Comments Unknown Sex and Gender Information Value Date Recorded Sex Assigned at Not on file Legal Sex Female 4:02 AM FIRER LOW PRESSURE Gender Identity Not on file Sexual Orientation Not on file documented as of this encounter Plan of Treatment Upcoming Encounters Date Type Department Care Team (Late Contact Info) Description 08/15/2025 1:30 PM FIRER LOW PRESSURE Office Visit [facility] Primary [place] [phone] Kassy Jay MD [address] [place] [phone] 09/25/2025 8:30 AM FIRER LOW PRESSURE Video Visit [facility] Adult Psychiatry [place] [address] [address] [phone] [place], Argelia Lopez NP [address] [address] [address] [address] [address] documented as of this encounter Visit Diagnoses Not on filedocumented in this encounter Additional Health Concerns Infection Onset Date Last Indicated Resolved Time R/O COVID-19 06/02/2021 06/03/2021 06/03/2021 7:34 PM CDT R/O COVID-19 12/22/2022 12/22/2022 12/22/2022 12:2 5 PM CDT R/O COVID-19 09/07/2023 09/07/2023 09/07/2023 9:52 PM FIRER LOW PRESSURE documented as of this encounter Care Teams Manager Pacu Relationship Specialty Start Date End Date Kassy Jay MD [address] [facility] [address] [phone] PCP - General Family Practice 12/04/22 documented as of this encounter
--- OUTSIDE RECORDS SUMMARY | 2025-08-02 20:12 | XMS_ITS | Encounter Summary ---
Author Organization [facility] Address [address] [place] [address] Care Team Providers Care Wax Pot Tender Name Role Phone Kassy Jay MD Primary Care Provider [phone] Encounter Details Date Type Department Care Team (Late Contact Info) Description 03/27/2004 Outpatient Historical [facility] Childrens Respiratory and Sleep Medicine [address] [facility] [address] [address] Gustavo Sims Social History Tobacco Use Types Packs/Day Years Used Date Smoking Tobacco: Never Assessed Comments Unknown Sex and Gender Information Value Date Recorded Sex Assigned at Not on file Legal Sex Female 4:02 AM FILTERING MACHINE TENDER Gender Identity Not on file Sexual Orientation Not on file documented as of this encounter Plan of Treatment Upcoming Encounters Date Type Department Care Team (Late Contact Info) Description 08/15/2025 1:30 PM FILTERING MACHINE TENDER Office Visit [facility] Primary [place] [phone] Kassy Jay MD [address] [place] [phone] 09/25/2025 8:30 AM FILTERING MACHINE TENDER Video Visit [facility] Adult Psychiatry [place] [address] [address] [place] [phone] [place], Argelia Lopez NP [address] [address] [address] [address] [address] documented as of this encounter Visit Diagnoses Not on filedocumented in this encounter Additional Health Concerns Infection Onset Date Last Indicated Resolved Time R/O COVID-19 06/02/2021 06/03/2021 06/03/2021 7:34 PM CDT R/O COVID-19 12/22/2022 12/22/2022 12/22/2022 12:2 5 PM CDT R/O COVID-19 09/07/2023 09/07/2023 09/07/2023 9:52 PM FILTERING MACHINE TENDER documented as of this encounter Care Teams Wax Pot Tender Relationship Specialty Start Date End Date Kassy Jay MD [address] [facility] [address] [place] [address] PCP - General Family Practice 12/04/22 documented as of this encounter
--- OUTSIDE RECORDS SUMMARY | 2025-08-02 20:12 | XMS_ITS | Encounter Summary ---
Author Organization [facility] Address [address] [place] [address] Care Team Providers Care Urology Teacher Name Role Phone Kassy Jay MD Primary Care Provider [phone] Encounter Details Date Type Department Care Team (Late Contact Info) Description 02/10/2003 Outpatient Historical [facility] Pediatrics - [facility] [address] [place] [address] [place] [address] [facility] [facility] [address] [place] [address] Social History Tobacco Use Types Packs/Day Years Used Date Smoking Tobacco: Never Assessed Comments Unknown Sex and Gender Information Value Date Recorded Sex Assigned at Not on file Legal Sex Female 4:02 AM OPTICAL GOODS DRILL OPERATOR Gender Identity Not on file Sexual Orientation Not on file documented as of this encounter Plan of Treatment Upcoming Encounters Date Type Department Care Team (Late Contact Info) Description 08/15/2025 1:30 PM OPTICAL GOODS DRILL OPERATOR Office Visit [facility] Primary Care - Kirby Herrmann [address] [place] [address] [phone] Kassy Jay MD [address] [place] [phone] 09/25/2025 8:30 AM OPTICAL GOODS DRILL OPERATOR Video Visit [facility] Adult Psychiatry [place] [address] [address] [address] [address] Argelia Law NP [address] [address] [address] [address] documented as of this encounter Visit Diagnoses Not on filedocumented in this encounter Additional Health Concerns Infection Onset Date Last Indicated Resolved Time R/O COVID-19 06/02/2021 06/03/2021 06/03/2021 7:34 PM CDT R/O COVID-19 12/22/2022 12/22/2022 12/22/2022 12:2 5 PM CDT R/O COVID-19 09/07/2023 09/07/2023 09/07/2023 9:52 PM OPTICAL GOODS DRILL OPERATOR documented as of this encounter Care Teams Urology Teacher Relationship Specialty Start Date End Date Kassy Jay MD [address] [place] [address] [address] PCP - General Family Practice 12/04/22 documented as of this encounter
--- OUTSIDE RECORDS SUMMARY | 2025-08-02 20:12 | XMS_ITS | Encounter Summary ---
Author Organization [facility] Address [address] [place] [address] Care Team Providers Care Gear Grinding Machine Operator Name Role Phone Kassy Jay MD Primary Care Provider [phone] Encounter Details Date Type Department Care Team (Late Contact Info) Description 05/06/2002 Outpatient Historical [facility] Childrens Respiratory and Sleep Medicine [address] [facility] [address] [address] Gustavo Sims Social History Tobacco Use Types Packs/Day Years Used Date Smoking Tobacco: Never Assessed Comments Unknown Sex and Gender Information Value Date Recorded Sex Assigned at Not on file Legal Sex Female 4:02 AM BEND SORTER Gender Identity Not on file Sexual Orientation Not on file documented as of this encounter Plan of Treatment Upcoming Encounters Date Type Department Care Team (Late Contact Info) Description 08/15/2025 1:30 PM BEND SORTER Office Visit [facility] [place] [place] [phone] Kassy Jay MD [address] [place] [phone] 09/25/2025 8:30 AM BEND SORTER Video Visit [facility] Adult Psychiatry [place] [address] [address] [phone] [place], Argelia Lopez NP [address] [address] [address] [address] [address] documented as of this encounter Visit Diagnoses Not on filedocumented in this encounter Additional Health Concerns Infection Onset Date Last Indicated Resolved Time R/O COVID-19 06/02/2021 06/03/2021 06/03/2021 7:34 PM CDT R/O COVID-19 12/22/2022 12/22/2022 12/22/2022 12:2 5 PM CDT R/O COVID-19 09/07/2023 09/07/2023 09/07/2023 9:52 PM BEND SORTER documented as of this encounter Care Teams Gear Grinding Machine Operator Relationship Specialty Start Date End Date Kassy Jay MD [address] [facility] [address] [address] PCP - General Family Practice 12/04/22 documented as of this encounter
--- OUTSIDE RECORDS SUMMARY | 2025-08-02 20:12 | XMS_ITS | Encounter Summary ---
Author Organization [facility] Address [address] [place] [address] Care Team Providers Care Director Of Occupational Therapy Name Role Phone Kassy Jay MD Primary Care Provider [phone] Encounter Details Date Type Department Care Team (Late st Contact Info) Description 04/28/2006 Orders Only [facility] Pediatrics - [facility] [address] [facility] [address] [place] [address] [place] [address] [facility] [address] [place] [address] Social History Tobacco Use Types Packs/Day Years Used Date Smoking Tobacco: Never Assessed Comments Unknown Sex and Gender Information Value Date Recorded Sex Assigned at Not on file Legal Sex Female 4:02 AM SPEED RUNNER Gender Identity Not on file Sexual Orientation Not on file documented as of this encounter Progress Notes * Lacie Malik MD - 06/29/2008 9:55 PM CDT TIME:10:41 am PATIENT`S HOME PHONE: PATIENT`S WORK PHONE: PATIENT`S INSURANCE: [facility] WHO TOOK THE CALL: Alana Ba A [...] st Contact Info) Description 08/15/2025 1:30 PM SPEED RUNNER Office Visit [facility] Primary Care - Kirby Herrmann [address] [place] [address] Kassy Jay MD [address] [place] [place] [address] 09/25/2025 8:30 AM SPEED RUNNER Video Visit [facility] Adult Psychiatry [place] [address] [place] [address] Argelia Law NP [address] [address] documented as of this encounter Visit Diagnoses Not on filedocumented in this encounter Additional Health Concerns Infection Onset Date Last Indicated Resolved Time R/O COVID-19 06/02/2021 06/03/2021 06/03/2021 7:34 PM CDT R/O COVID-19 12/22/2022 12/22/2022 12/22/2022 12:2 5 PM CDT R/O COVID-19 09/07/2023 09/07/2023 09/07/2023 9:52 PM SPEED RUNNER documented as of this encounter Care Teams Director Of Occupational Therapy Relationship Specialty Start Date End Date Kassy Jay MD [address] [place] [address] [place] [phone] PCP - General Family Practice 12/04/22 documented as of this encounter
--- OUTSIDE RECORDS SUMMARY | 2025-08-02 20:12 | XMS_ITS | Encounter Summary ---
Author Organization [facility] Address [address] [place] [address] Care Team Providers Care Design Release Engineer Name Role Phone Kassy Jay MD Primary Care Provider [phone] Encounter Details Date Type Department Care Team (Late Contact Info) Description 04/07/2002 Outpatient Historical [facility] Pediatrics - [facility] [address] [facility] [address] [place] [address] Darren Tabor MD NO ADDRESS ON FILE Social History Tobacco Use Types Packs/Day Years Used Date Smoking Tobacco: Never Assessed Comments Unknown Sex and Gender Information Value Date Recorded Sex Assigned at Not on file Legal Sex Female 4:02 AM YOUTH CARE PROFESSIONAL Gender Identity Not on file Sexual Orientation Not on file documented as of this encounter Plan of Treatment Upcoming Encounters Date Type Department Care Team (Late Contact Info) Description 08/15/2025 1:30 PM YOUTH CARE PROFESSIONAL Office Visit [facility] Primary Care - Kirby Herr[place] [address] [place] [phone] Kassy Jay MD [address] [place] [place] [address] [phone] 09/25/2025 8:30 AM YOUTH CARE PROFESSIONAL Video Visit [facility] Adult Psychiatry [address] [phone] Argelia Law, [place] [address] [address] [place] [address] documented as of this encounter Visit Diagnoses Not on filedocumented in this encounter Additional Health Concerns Infection Onset Date Last Indicated Resolved Time R/O COVID-19 06/02/2021 06/03/2021 06/03/2021 7:34 PM CDT R/O COVID-19 12/22/2022 12/22/2022 12/22/2022 12:2 5 PM CDT R/O COVID-19 09/07/2023 09/07/2023 09/07/2023 9:52 PM YOUTH CARE PROFESSIONAL documented as of this encounter Care Teams Design Release Engineer Relationship Specialty Start Date End Date Kassy Jay MD [address] [address] PCP - General Family Practice 12/04/22 documented as of this encounter
--- OUTSIDE RECORDS SUMMARY | 2025-08-02 20:12 | XMS_ITS | Encounter Summary ---
Author Organization [facility] Address [address] [place] [address] Care Team Providers Care Spring Forger Name Role Phone Kassy Jay MD Primary Care Provider [phone] Encounter Details Date Type Department Care Team ([facility] Contact Info) Description 08/11/2007 Outpatient Historical [facility] Pediatrics - [facility] [address] [place] [address] [place] [address] [address] [facility] [address] [place] [address] Social History Tobacco Use Types Packs/Day Years Used Date Smoking Tobacco: Never Assessed Comments Unknown Sex and Gender Information Value Date Recorded Sex Assigned at Not on file Legal Sex Female 4:02 AM VIRTUAL CUSTOMER ASSISTANT Gender Identity Not on file Sexual Orientation Not on file documented as of this encounter Last Filed Vital Signs Vital Sign Reading Time Taken Comments Blood Pressure - - Pulse 104 08/11/2007 9:45 AM VIRTUAL CUSTOMER ASSISTANT Temperature 36.7 C (98.1 F) 08/11/2007 9:45 AM VIRTUAL CUSTOMER ASSISTANT Respiratory Rate 20 08/11/2007 9:45 AM VIRTUAL CUSTOMER ASSISTANT Oxygen Saturation - - Inhaled Oxygen Concentration - - Weight 34 kg (75 lb) 08/11/2007 9:45 AM VIRTUAL CUSTOMER ASSISTANT Height - - Body Mass Index - - documented in this encounter Plan of Treatment Upcoming Encounters Date Type Department Care Team ([facility] Contact Info) Description 08/15/2025 1:30 PM VIRTUAL CUSTOMER ASSISTANT Office Visit [facility] Primary Care - Michael Herrmann [address] [place] [phone] Kassy Jay MD [address] [place] [phone] 09/25/2025 8:30 AM VIRTUAL CUSTOMER ASSISTANT Video Visit [facility] Adult Psychiatry [place] [address] [address] [place] [address] Argelia Law NP [address] [facility] [address] [place] [address] documented as of this encounter Visit Diagnoses Not on filedocumented in this encounter Additional Health Concerns Infection Onset Date Last Indicated Resolved Time R/O COVID-19 06/02/2021 06/03/2021 06/03/2021 7:34 PM CDT R/O COVID-19 12/22/2022 12/22/2022 12/22/2022 12:2 5 PM CDT R/O COVID-19 09/07/2023 09/07/2023 09/07/2023 9:52 PM VIRTUAL CUSTOMER ASSISTANT documented as of this encounter Care Teams Spring Forger Relationship Specialty Start Date End Date Kassy Jay MD [address] [place] [phone] PCP - General Family Practice 12/04/22 documented as of this encounter
--- OUTSIDE RECORDS SUMMARY | 2025-08-02 20:12 | XMS_ITS | Encounter Summary ---
Author Organization [facility] Address [address] [place] [address] Care Team Providers Care Social Research Assistant Name Role Phone Kassy Jay MD Primary Care Provider [phone] Encounter Details Date Type Department Care Team (Late Contact Info) Description 10/07/2002 Outpatient Historical [facility] - [place] [address] [address] [place] [facility] [facility] [address] [facility] [place] [address] [place] [address] [facility] [address] [place] [address] Social History Tobacco Use Types Packs/Day Years Used Date Smoking Tobacco: Never Assessed Comments Unknown Sex and Gender Information Value Date Recorded Sex Assigned at Not on file Legal Sex Female 4:02 AM DEMENTIA PROGRAM DIRECTOR Gender Identity Not on file Sexual Orientation Not on file documented as of this encounter Plan of Treatment Upcoming Encounters Date Type Department Care Team (Late Contact Info) Description 08/15/2025 1:30 PM DEMENTIA PROGRAM DIRECTOR Office Visit [facility] Primary Care - Kirby Herrmann [address] [place] [phone] Kassy Jay MD [address] [place] [address] [phone] 09/25/2025 8:30 AM DEMENTIA PROGRAM DIRECTOR Video Visit [facility] Adult Psychiatry [place] [address] [address] [place] [address] Argelia Law NP [address] [address] [place] [address] documented as of this encounter Visit Diagnoses Not on filedocumented in this encounter Additional Health Concerns Infection Onset Date Last Indicated Resolved Time R/O COVID-19 06/02/2021 06/03/2021 06/03/2021 7:34 PM CDT R/O COVID-19 12/22/2022 12/22/2022 12/22/2022 12:2 5 PM CDT R/O COVID-19 09/07/2023 09/07/2023 09/07/2023 9:52 PM DEMENTIA PROGRAM DIRECTOR documented as of this encounter Care Teams Social Research Assistant Relationship Specialty Start Date End Date Kassy Jay MD [address] [place] [address] [phone] PCP - General Family Practice 12/04/22 documented as of this encounter
--- OUTSIDE RECORDS SUMMARY | 2025-08-02 20:12 | XMS_ITS | Encounter Summary ---
Author Organization [facility] Address [address] [place] [address] Care Team Providers Care Brass Cutter Name Role Phone Kassy Jay MD Primary Care Provider Encounter Details Date Type Department Care Team (Late Contact Info) Description 07/06/2002 Outpatient Historical [facility] Pediatrics - [facility] [address] [facility] [address] [place] [address] [place] [address] [address] [place] [address] Social History Tobacco Use Types Packs/Day Years Used Date Smoking Tobacco: Never Assessed Comments Unknown Sex and Gender Information Value Date Recorded Sex Assigned at Not on file Legal Sex Female 4:02 AM TROUBLE LINEMAN Gender Identity Not on file Sexual Orientation Not on file documented as of this encounter Plan of Treatment Upcoming Encounters Date Type Department Care Team (Late Contact Info) Description 08/15/2025 1:30 PM TROUBLE LINEMAN Office Visit [facility] Primary Care - Kirby Herrmann [address] [phone] Kassy Jay MD [address] [phone] 09/25/2025 8:30 AM TROUBLE LINEMAN Video Visit [facility] Adult Psychiatry [place] [address] [address] [place] [address] Argelia Law NP [address] [address] [place] [address] documented as of this encounter Visit Diagnoses Not on filedocumented in this encounter Additional Health Concerns Infection Onset Date Last Indicated Resolved Time R/O COVID-19 06/02/2021 06/03/2021 06/03/2021 7:34 PM CDT R/O COVID-19 12/22/2022 12/22/2022 12/22/2022 12:2 5 PM CDT R/O COVID-19 09/07/2023 09/07/2023 09/07/2023 9:52 PM TROUBLE LINEMAN documented as of this encounter Care Teams Brass Cutter Relationship Specialty Start Date End Date Kassy Jay MD [address] [place] [address] [phone] PCP - General Family Practice 12/04/22 documented as of this encounter
--- OUTSIDE RECORDS SUMMARY | 2025-08-02 20:12 | XMS_ITS | Encounter Summary ---
Author Organization [facility] Address [address] [place] [address] Care Team Providers Care Poultry Helper Name Role Phone Kassy Jay MD Primary Care Provider [phone] Encounter Details Date Type Department Care Team (Late Contact Info) Description 02/10/2003 Outpatient Historical [facility] Pediatrics - [facility] [address] [facility] [address] [place] [address] [place] [address] [facility] [address] [place] [address] Social History Tobacco Use Types Packs/Day Years Used Date Smoking Tobacco: Never Assessed Comments Unknown Sex and Gender Information Value Date Recorded Sex Assigned at Not on file Legal Sex Female 4:02 AM PATIENT FINANCIAL SPECIALIST Gender Identity Not on file Sexual Orientation Not on file documented as of this encounter Plan of Treatment Upcoming Encounters Date Type Department Care Team (Late Contact Info) Description 08/15/2025 1:30 PM PATIENT FINANCIAL SPECIALIST Office Visit [facility] Primary Care - Kirby Herrmann [address] [address] [phone] Kassy Jay MD [address] [place] [place] [phone] 09/25/2025 8:30 AM PATIENT FINANCIAL SPECIALIST Video Visit [facility] Adult Psychiatry [place] [address] [address] [place] [address] Argelia Law NP [address] [address] [place] [address] documented as of this encounter Visit Diagnoses Not on filedocumented in this encounter Additional Health Concerns Infection Onset Date Last Indicated Resolved Time R/O COVID-19 06/02/2021 06/03/2021 06/03/2021 7:34 PM CDT R/O COVID-19 12/22/2022 12/22/2022 12/22/2022 12:2 5 PM CDT R/O COVID-19 09/07/2023 09/07/2023 09/07/2023 9:52 PM PATIENT FINANCIAL SPECIALIST documented as of this encounter Care Teams Poultry Helper Relationship Specialty Start Date End Date Kassy Jay MD [address] [place] [address] [phone] PCP - General Family Practice 12/04/22 documented as of this encounter
--- OUTSIDE RECORDS SUMMARY | 2025-08-02 20:12 | XMS_ITS | Encounter Summary ---
Author Organization [facility] Address [address] [place] [address] Care Team Providers Care Battery Recharger Name Role Phone Kassy Jay MD Primary Care Provider [phone] Encounter Details Date Type Department Care Team (Late Contact Info) Description 04/21/2003 Outpatient Historical [facility] Pediatrics - [facility] [address] [facility] [address] [place] [address] [place] [address] [facility] [address] [place] [address] Social History Tobacco Use Types Packs/Day Years Used Date Smoking Tobacco: Never Assessed Comments Unknown Sex and Gender Information Value Date Recorded Sex Assigned at Not on file Legal Sex Female 4:02 AM PANTOGRAPH OPERATOR Gender Identity Not on file Sexual Orientation Not on file documented as of this encounter Plan of Treatment Upcoming Encounters Date Type Department Care Team (Late Contact Info) Description 08/15/2025 1:30 PM PANTOGRAPH OPERATOR Office Visit [facility] Primary Care - Kirby Herrmann [address] [phone] Kassy Jay MD [address] [place] [address] [phone] 09/25/2025 8:30 AM PANTOGRAPH OPERATOR Video Visit [facility] Adult Psychiatry [place] [address] [address] [place] [phone] Argelia Law NP [address] [address] [place] [address] documented as of this encounter Visit Diagnoses Not on filedocumented in this encounter Additional Health Concerns Infection Onset Date Last Indicated Resolved Time R/O COVID-19 06/02/2021 06/03/2021 06/03/2021 7:34 PM CDT R/O COVID-19 12/22/2022 12/22/2022 12/22/2022 12:2 5 PM CDT R/O COVID-19 09/07/2023 09/07/2023 09/07/2023 9:52 PM PANTOGRAPH OPERATOR documented as of this encounter Care Teams Battery Recharger Relationship Specialty Start Date End Date Kassy Jay MD [address] [place] [address] [phone] PCP - General Family Practice 12/04/22 documented as of this encounter
--- OUTSIDE RECORDS SUMMARY | 2025-08-02 20:12 | XMS_ITS | Encounter Summary ---
Author Organization [facility] Address [address] [place] [address] Care Team Providers Care Studio Hand Name Role Phone Kassy Jay MD Primary Care Provider [phone] Encounter Details Date Type Department Care Team (Late st Contact Info) Description 05/16/2006 Orders Only [facility] Pediatrics - [facility] [address] [facility] [address] [place] [address] [place] [address] [facility] [address] [place] [address] Social History Tobacco Use Types Packs/Day Years Used Date Smoking Tobacco: Never Assessed Comments Unknown Sex and Gender Information Value Date Recorded Sex Assigned at Not on file Legal Sex Female 4:02 AM FERMENTER Gender Identity Not on file Sexual Orientation [...] NEW PRESCRIPTION, 05/16/2006. LAB ORDERS: Order number: [id number] Test Ordered: STREPTOCOCCUS, GROUP A CULTURE 4485 Order number: [id number] Test Ordered: RAPID STREP [id number] RETURN VISIT/GUIDANCE: Instructed to:Take OTC meds as directed Call office if concerned or if child is no better Return if symptoms are not resolved. Call thursday for results Electronically Signed by: Lacie Malik M.D. on Tuesday, May 16, 2006 documented in this encounter Plan of Treatment Upcoming Encounters Date Type Department Care Team (Late st Contact Info) Description 08/15/2025 1:30 PM FERMENTER Office Visit [facility] Primary Care - Kirby Herrmann [address] [place] [address] [phone] Kassy Jay MD [address] [place] [place] [phone] 09/25/2025 8:30 AM FERMENTER Video Visit [facility] Adult Psychiatry [place] [address] [place] [address] Argelia Law NP [address] [address] documented as of this encounter Visit Diagnoses Not on filedocumented in this encounter Additional Health Concerns Infection Onset Date Last Indicated Resolved Time R/O COVID-19 06/02/2021 06/03/2021 06/03/2021 7:34 PM CDT R/O COVID-19 12/22/2022 12/22/2022 12/22/2022 12:2 5 PM CDT R/O COVID-19 09/07/2023 09/07/2023 09/07/2023 9:52 PM FERMENTER documented as of this encounter Care Teams Studio Hand Relationship Specialty Start Date End Date Kassy Jay MD [address] [place] [address] [phone] PCP - General Family Practice 12/04/22 documented as of this encounter
--- OUTSIDE RECORDS SUMMARY | 2025-08-02 20:12 | XMS_ITS | Encounter Summary ---
Author Organization [facility] Address [address] [place] [address] Care Team Providers Care Socially Responsible Investment Adviser Name Role Phone Kassy Jay MD Primary Care Provider [phone] Encounter Details Date Type Department Care Team (Late Contact Info) Description 10/20/2001 Outpatient Historical [facility] Pediatrics - [facility] [address] [facility] [address] [place] [address] [place] [address] [facility] [address] [place] [address] Social History Tobacco Use Types Packs/Day Years Used Date Smoking Tobacco: Never Assessed Comments Unknown Sex and Gender Information Value Date Recorded Sex Assigned at Not on file Legal Sex Female 4:02 AM FOOD PROCESSING CHEMIST Gender Identity Not on file Sexual Orientation Not on file documented as of this encounter Plan of Treatment Upcoming Encounters Date Type Department Care Team (Late Contact Info) Description 08/15/2025 1:30 PM FOOD PROCESSING CHEMIST Office Visit [facility] Primary Care - Kirby Herrmann [address] [address] [phone] Kassy Jay MD [address] [place] [phone] 09/25/2025 8:30 AM FOOD PROCESSING CHEMIST Video Visit [facility] Adult Psychiatry [place] [address] [address] [place] [phone] Argelia Law NP [address] [address] [place] [address] documented as of this encounter Visit Diagnoses Not on filedocumented in this encounter Additional Health Concerns Infection Onset Date Last Indicated Resolved Time R/O COVID-19 06/02/2021 06/03/2021 06/03/2021 7:34 PM CDT R/O COVID-19 12/22/2022 12/22/2022 12/22/2022 12:2 5 PM CDT R/O COVID-19 09/07/2023 09/07/2023 09/07/2023 9:52 PM FOOD PROCESSING CHEMIST documented as of this encounter Care Teams Socially Responsible Investment Adviser Relationship Specialty Start Date End Date Kassy Jay MD [address] [place] [address] [phone] PCP - General Family Practice 12/04/22 documented as of this encounter
--- OUTSIDE RECORDS SUMMARY | 2025-08-02 20:12 | XMS_ITS | Encounter Summary ---
Author Organization [facility] Address [address] [place] [address] Care Team Providers Care Miniature Set Designer Name Role Phone Kassy Jay MD Primary Care Provider [phone] Encounter Details Date Type Department Care Team (Late Contact Info) Description 08/23/2001 Outpatient Historical [facility] Pediatrics - [facility] [address] [facility] [address] [place] [address] [place] [address] [facility] [address] [place] [address] Social History Tobacco Use Types Packs/Day Years Used Date Smoking Tobacco: Never Assessed Comments Unknown Sex and Gender Information Value Date Recorded Sex Assigned at Not on file Legal Sex Female 4:02 AM FREIGHT CLAIM INVESTIGATOR Gender Identity Not on file Sexual Orientation Not on file documented as of this encounter Plan of Treatment Upcoming Encounters Date Type Department Care Team (Late Contact Info) Description 08/15/2025 1:30 PM FREIGHT CLAIM INVESTIGATOR Office Visit [facility] Primary Care - Kirby Herrmann [address] [place] [phone] Kassy Jay MD [address] [phone] 09/25/2025 8:30 AM FREIGHT CLAIM INVESTIGATOR Video Visit [facility] Adult Psychiatry [place] [address] [address] [place] [phone] Argelia Law NP [address] [address] [place] [address] documented as of this encounter Visit Diagnoses Not on filedocumented in this encounter Additional Health Concerns Infection Onset Date Last Indicated Resolved Time R/O COVID-19 06/02/2021 06/03/2021 06/03/2021 7:34 PM CDT R/O COVID-19 12/22/2022 12/22/2022 12/22/2022 12:2 5 PM CDT R/O COVID-19 09/07/2023 09/07/2023 09/07/2023 9:52 PM FREIGHT CLAIM INVESTIGATOR documented as of this encounter Care Teams Miniature Set Designer Relationship Specialty Start Date End Date Kassy Jay MD [address] [place] [address] [phone] PCP - General Family Practice 12/04/22 documented as of this encounter
--- OUTSIDE RECORDS SUMMARY | 2025-08-02 20:12 | XMS_ITS | Encounter Summary ---
Author Organization [facility] Address [address] [place] [address] Care Team Providers Care Player Manager Name Role Phone Kassy Jay MD Primary Care Provider [phone] Encounter Details Date Type Department Care Team (Late Contact Info) Description 12/05/2002 Outpatient Historical [facility] Childrens Respiratory and Sleep Medicine [address] [facility] [address] [address] Gustavo Sims Social History Tobacco Use Types Packs/Day Years Used Date Smoking Tobacco: Never Assessed Comments Unknown Sex and Gender Information Value Date Recorded Sex Assigned at Not on file Legal Sex Female 4:02 AM RETURNED GOODS RECEIVING CLERK Gender Identity Not on file Sexual Orientation Not on file documented as of this encounter Plan of Treatment Upcoming Encounters Date Type Department Care Team (Late Contact Info) Description 08/15/2025 1:30 PM RETURNED GOODS RECEIVING CLERK Office Visit [facility] [place] [phone] Kassy Jay MD [address] [place] [phone] 09/25/2025 8:30 AM RETURNED GOODS RECEIVING CLERK Video Visit [facility] Adult Psychiatry [address] [address] [address] [place] [phone] [place], Argelia Lopez NP [address] [address] [place] [address] documented as of this encounter Visit Diagnoses Not on filedocumented in this encounter Additional Health Concerns Infection Onset Date Last Indicated Resolved Time R/O COVID-19 06/02/2021 06/03/2021 06/03/2021 7:34 PM CDT R/O COVID-19 12/22/2022 12/22/2022 12/22/2022 12:2 5 PM CDT R/O COVID-19 09/07/2023 09/07/2023 09/07/2023 9:52 PM RETURNED GOODS RECEIVING CLERK documented as of this encounter Care Teams Player Manager Relationship Specialty Start Date End Date Kassy Jay MD [address] [facility] [address] [place] [phone] PCP - General Family Practice 12/04/22 documented as of this encounter
--- OUTSIDE RECORDS SUMMARY | 2025-08-02 20:12 | XMS_ITS | Encounter Summary ---
Author Organization [facility] Address [address] [place] [address] Care Team Providers Care Alterations Manager Name Role Phone Kassy Jay MD Primary Care Provider [phone] Encounter Details Date Type Department Care Team ([facility] Contact Info) Description 05/09/2004 Outpatient Historical [facility] Pediatrics - [facility] [address] [facility] [address] [place] [address] Garrett Mittal MD [address] [place] [address] Social History Tobacco Use Types Packs/Day Years Used Date Smoking Tobacco: Never Assessed Comments Unknown Sex and Gender Information Value Date Recorded Sex Assigned at Not on file Legal Sex Female 4:02 AM PAN PULLER Gender Identity Not on file Sexual [...] (Late Contact Info) Description 08/15/2025 1:30 PM PAN PULLER Office Visit [facility] Primary Care - Michael Herrmann [address] [place] [address] Kassy Jay MD [address] [place] [place] [phone] 09/25/2025 8:30 AM PAN PULLER Video Visit [facility] Adult Psychiatry [place] [address] [facility] [address] [place] [address] Argelia Law NP [address] [facility] [address] [place] [address] documented as of this encounter Visit Diagnoses Not on filedocumented in this encounter Additional Health Concerns Infection Onset Date Last Indicated Resolved Time R/O COVID-19 06/02/2021 06/03/2021 06/03/2021 7:34 PM CDT R/O COVID-19 12/22/2022 12/22/2022 12/22/2022 12:2 5 PM CDT R/O COVID-19 09/07/2023 09/07/2023 09/07/2023 9:52 PM PAN PULLER documented as of this encounter Care Teams Alterations Manager Relationship Specialty Start Date End Date Kassy Jay MD [address] [place] [phone] PCP - General Family Practice 12/04/22 documented as of this encounter
--- OUTSIDE RECORDS SUMMARY | 2025-08-02 20:12 | XMS_ITS | Encounter Summary ---
Author Organization [facility] Address [address] [place] [address] Care Team Providers Care Custom Designer Name Role Phone Kassy Jay MD Primary Care Provider [phone] Encounter Details Date Type Department Care Team (Late Contact Info) Description 06/30/2007 Outpatient Historical [facility] Pediatrics - [facility] [address] [place] [address] [place] [address] [place] [address] Social History Tobacco Use Types Packs/Day Years Used Date Smoking Tobacco: Never Assessed Comments Unknown Sex and Gender Information Value Date Recorded Sex Assigned at Not on file Legal Sex Female 4:02 AM OPHTHALMIC TECH Gender Identity Not on file Sexual Orientation Not on file documented as of this encounter Plan of Treatment Upcoming Encounters Date Type Department Care Team (Late Contact Info) Description 08/15/2025 1:30 PM OPHTHALMIC TECH Office Visit [facility] Primary Care - [place] [address] [place] [phone] Kassy Jay MD [address] [place] [phone] 09/25/2025 8:30 AM OPHTHALMIC TECH Video Visit [facility] Adult Psychiatry [place] [address] [address] [place] [address] Argelia Law NP [address] [address] [place] [address] documented as of this encounter Visit Diagnoses Not on filedocumented in this encounter Additional Health Concerns Infection Onset Date Last Indicated Resolved Time R/O COVID-19 06/02/2021 06/03/2021 06/03/2021 7:34 PM CDT R/O COVID-19 12/22/2022 12/22/2022 12/22/2022 12:2 5 PM CDT R/O COVID-19 09/07/2023 09/07/2023 09/07/2023 9:52 PM OPHTHALMIC TECH documented as of this encounter Care Teams Custom Designer Relationship Specialty Start Date End Date Kassy aJy MD [address] [place] [address] PCP - General Family Practice 12/04/22 documented as of this encounter
--- OUTSIDE RECORDS SUMMARY | 2025-08-02 20:12 | XMS_ITS | Encounter Summary ---
Author Organization [facility] Address [address] [place] [address] Care Team Providers Care Insecticide Maker Name Role Phone Kassy Jay MD Primary Care Provider [phone] Encounter Details Date Type Department Care Team (Late Contact Info) Description 09/30/2002 Outpatient Historical [facility] Pediatrics - [facility] [address] [place] [address] [place] [address] [place] [address] Social History Tobacco Use Types Packs/Day Years Used Date Smoking Tobacco: Never Assessed Comments Unknown Sex and Gender Information Value Date Recorded Sex Assigned at Not on file Legal Sex Female 4:02 AM PHYSICIAN AIDE Gender Identity Not on file Sexual Orientation Not on file documented as of this encounter Plan of Treatment Upcoming Encounters Date Type Department Care Team (Late Contact Info) Description 08/15/2025 1:30 PM PHYSICIAN AIDE Office Visit [facility] Primary Care - [place] [address] [place] [phone] Kassy Jay MD [address] [place] [phone] 09/25/2025 8:30 AM PHYSICIAN AIDE Video Visit [facility] Adult Psychiatry Var[place] [address] [address] [place] [address] Argelia Law NP [address] [address] [place] [address] documented as of this encounter Visit Diagnoses Not on filedocumented in this encounter Additional Health Concerns Infection Onset Date Last Indicated Resolved Time R/O COVID-19 06/02/2021 06/03/2021 06/03/2021 7:34 PM CDT R/O COVID-19 12/22/2022 12/22/2022 12/22/2022 12:2 5 PM CDT R/O COVID-19 09/07/2023 09/07/2023 09/07/2023 9:52 PM PHYSICIAN AIDE documented as of this encounter Care Teams Insecticide Maker Relationship Specialty Start Date End Date Kassy Jay MD [address] [place] [address] [address] PCP - General Family Practice 12/04/22 documented as of this encounter
--- OUTSIDE RECORDS SUMMARY | 2025-08-02 20:12 | XMS_ITS | Encounter Summary ---
Author Organization [facility] Address [address] [place] [address] Care Team Providers Care Statistician Mathematical Name Role Phone Kassy Jay MD Primary Care Provider [phone] Encounter Details Date Type Department Care Team (Latest Contact Info) Description 04/13/2002 Outpatient Historical [facility] [place] [address] [place] [address] UNS ASTHMA WOSTATUS ASTHMATICUS (Primary Dx) Social History Tobacco Use Types Packs/Day Years Used Date Smoking Tobacco: Never Assessed Comments Unknown Sex and Gender Information Value Date Recorded Sex Assigned at Not on file Legal Sex Female 4:02 AM SEWING MACHINE OPERATOR Gender Identity Not on file Sexual Orientation Not on file documented as of this encounter Plan of Treatment Upcoming Encounters Date Type Department Care Team (Late st Contact Info) Description 08/15/2025 1:30 PM SEWING MACHINE OPERATOR Office Visit [facility] Primary Care - [place] [address] [phone] Kassy Jay MD [address] [place] [phone] 09/25/2025 8:30 AM SEWING MACHINE OPERATOR Video Visit [facility] Adult Psychiatry [place] [address] [address] [place] [address] Argelia LawARAMIS [address] [address] [place] [address] documented as of this encounter Visit Diagnoses Diagnosis Unspecified asthma(493.90)- Primary Unspecified asthma documented in this encounter Additional Health Concerns Infection Onset Date Last Indicated Resolved Time R/O COVID-19 06/02/2021 06/03/2021 06/03/2021 7:34 PM CDT R/O COVID-19 12/22/2022 12/22/2022 12/22/2022 12:2 5 PM CDT R/O COVID-19 09/07/2023 09/07/2023 09/07/2023 9:52 PM SEWING MACHINE OPERATOR documented as of this encounter Care Teams Statistician Mathematical Relationship Specialty Start Date End Date Kassy Jay MD [address] [facility] [place] [phone] PCP - General Family Practice 12/04/22 documented as of this encounter
--- OUTSIDE RECORDS SUMMARY | 2025-08-02 20:12 | XMS_ITS | Encounter Summary ---
Author Organization [facility] Address [address] [place] [address] Care Team Providers Care Ob Tech Name Role Phone Kassy Jay MD Primary Care Provider Encounter Details Date Type Department Care Team (Late Contact Info) Description 05/16/2006 Outpatient Historical [facility] Pediatrics - [facility] [address] [facility] [address] [place] [address] [place] [address] [facility] [address] [place] [address] Social History Tobacco Use Types Packs/Day Years Used Date Smoking Tobacco: Never Assessed Comments Unknown Sex and Gender Information Value Date Recorded Sex Assigned at Not on file Legal Sex Female 4:02 AM TRANSPORTATION ATTENDANT Gender Identity Not on file Sexual Orientation Not on file documented as of this encounter Plan of Treatment Upcoming Encounters Date Type Department Care Team (Late Contact Info) Description 08/15/2025 1:30 PM TRANSPORTATION ATTENDANT Office Visit [facility] Primary Care - Kirby Herrmann [address] [place] [address] [phone] Kassy Jay MD [address] [place] [phone] 09/25/2025 8:30 AM TRANSPORTATION ATTENDANT Video Visit [facility] Adult Psychiatry Varinder [address] [address] [place] [address] Argelia Law NP [address] [address] [place] [address] documented as of this encounter Visit Diagnoses Not on filedocumented in this encounter Additional Health Concerns Infection Onset Date Last Indicated Resolved Time R/O COVID-19 06/02/2021 06/03/2021 06/03/2021 7:34 PM CDT R/O COVID-19 12/22/2022 12/22/2022 12/22/2022 12:2 5 PM CDT R/O COVID-19 09/07/2023 09/07/2023 09/07/2023 9:52 PM TRANSPORTATION ATTENDANT documented as of this encounter Care Teams Ob Tech Relationship Specialty Start Date End Date Kassy Jay MD [address] [place] [address] [phone] PCP - General Family Practice 12/04/22 documented as of this encounter
--- OUTSIDE RECORDS SUMMARY | 2025-08-02 20:12 | XMS_ITS | Encounter Summary ---
Author Organization [facility] Address [address] [place] [address] Care Team Providers Care Jet Dyeing Machine Operator Name Role Phone Kassy Jay MD Primary Care Provider [phone] Encounter Details Date Type Department Care Team (Late Contact Info) Description 03/27/2004 Outpatient Historical [facility] Childrens Respiratory and Sleep Medicine [address] [facility] [address] [address] Gustavo Sims Social History Tobacco Use Types Packs/Day Years Used Date Smoking Tobacco: Never Assessed Comments Unknown Sex and Gender Information Value Date Recorded Sex Assigned at Not on file Legal Sex Female 4:02 AM CONTROL PANEL OPERATOR CRUDE UNIT Gender Identity Not on file Sexual Orientation Not on file documented as of this encounter Plan of Treatment Upcoming Encounters Date Type Department Care Team (Late Contact Info) Description 08/15/2025 1:30 PM CONTROL PANEL OPERATOR CRUDE UNIT Office Visit [facility] Primary [place] [address] [place] [phone] Kassy Jay MD [address] [place] [phone] 09/25/2025 8:30 AM CONTROL PANEL OPERATOR CRUDE UNIT Video Visit [facility] Adult Psychiatry [place] [address] [place] [phone] [place], Argelia Lopez NP [address] [address] [place] [address] documented as of this encounter Visit Diagnoses Not on filedocumented in this encounter Additional Health Concerns Infection Onset Date Last Indicated Resolved Time R/O COVID-19 06/02/2021 06/03/2021 06/03/2021 7:34 PM CDT R/O COVID-19 12/22/2022 12/22/2022 12/22/2022 12:2 5 PM CDT R/O COVID-19 09/07/2023 09/07/2023 09/07/2023 9:52 PM CONTROL PANEL OPERATOR CRUDE UNIT documented as of this encounter Care Teams Jet Dyeing Machine Operator Relationship Specialty Start Date End Date Kassy Jay MD [address] [facility] [address] [place] [phone] PCP - General Family Practice 12/04/22 documented as of this encounter
--- OUTSIDE RECORDS SUMMARY | 2025-08-02 20:12 | XMS_ITS | Encounter Summary ---
Author Organization [facility] Address [address] [place] [address] Care Team Providers Care Auto Fleet Manager Name Role Phone Kassy Jay MD Primary Care Provider [phone] Encounter Details Date Type Department Care Team (Late Contact Info) Description 12/15/2003 Outpatient Historical [facility] Childrens Respiratory and Sleep Medicine [address] [facility] [address] [address] Gustavo Sims Social History Tobacco Use Types Packs/Day Years Used Date Smoking Tobacco: Never Assessed Comments Unknown Sex and Gender Information Value Date Recorded Sex Assigned at Not on file Legal Sex Female 4:02 AM STAFF REGISTERED NURSE Gender Identity Not on file Sexual Orientation Not on file documented as of this encounter Plan of Treatment Upcoming Encounters Date Type Department Care Team (Late Contact Info) Description 08/15/2025 1:30 PM STAFF REGISTERED NURSE Office Visit [facility] [place] [phone] Kassy Jay MD [address] [place] [address] 09/25/2025 8:30 AM STAFF REGISTERED NURSE Video Visit [facility] Adult Psychiatry [address] [address] [place] [phone] [place], Argelia Lopez NP [address] [address] [place] [address] documented as of this encounter Visit Diagnoses Not on filedocumented in this encounter Additional Health Concerns Infection Onset Date Last Indicated Resolved Time R/O COVID-19 06/02/2021 06/03/2021 06/03/2021 7:34 PM CDT R/O COVID-19 12/22/2022 12/22/2022 12/22/2022 12:2 5 PM CDT R/O COVID-19 09/07/2023 09/07/2023 09/07/2023 9:52 PM STAFF REGISTERED NURSE documented as of this encounter Care Teams Auto Fleet Manager Relationship Specialty Start Date End Date Kassy Jay MD [address] [facility] [place] [phone] PCP - General Family Practice 12/04/22 documented as of this encounter
--- OUTSIDE RECORDS SUMMARY | 2025-08-02 20:12 | XMS_ITS | Encounter Summary ---
Author Organization [facility] Address [address] [place] [address] Care Team Providers Care Viscosity Worker Name Role Phone Kassy Jay MD Primary Care Provider [phone] Encounter Details Date Type Department Care Team (Late Contact Info) Description 07/18/[address] [facility] Pediatrics - [facility] [address] [address] [facility] [address] [place] [address] [place] [address] [place] [address] Social History Tobacco Use Types Packs/Day Years Used Date Smoking Tobacco: Never Assessed Comments Unknown Sex and Gender Information Value Date Recorded Sex Assigned at Not on file Legal Sex Female 4:02 AM GARNETT MECHANIC Gender Identity Not on file Sexual Orientation Not on file documented as of this encounter Plan of Treatment Upcoming Encounters Date Type Department Care Team (Late Contact Info) Description 08/15/2025 1:30 PM GARNETT MECHANIC Office Visit [facility] Primary Care - [place] Herrmann [address] [phone] Kassy Jay MD [address] [place] [place] [phone] 09/25/2025 8:30 AM GARNETT MECHANIC Video Visit [facility] Adult Psychiatry Var[address] [address] [place] [phone] Argelia Law NP [address] [address] [place] [address] documented as of this encounter Visit Diagnoses Not on filedocumented in this encounter Additional Health Concerns Infection Onset Date Last Indicated Resolved Time R/O COVID-19 06/02/2021 06/03/2021 06/03/2021 7:34 PM CDT R/O COVID-19 12/22/2022 12/22/2022 12/22/2022 12:2 5 PM CDT R/O COVID-19 09/07/2023 09/07/2023 09/07/2023 9:52 PM GARNETT MECHANIC documented as of this encounter Care Teams Viscosity Worker Relationship Specialty Start Date End Date Kassy Jay MD [address] [place] [place] [address] [phone] PCP - General Family Practice 12/04/22 documented as of this encounter
--- OUTSIDE RECORDS SUMMARY | 2025-08-02 20:12 | XMS_ITS | Encounter Summary ---
Author Organization [facility] Address [address] [place] [address] Care Team Providers Care Take Off Worker Name Role Phone Kassy Jay MD Primary Care Provider [phone] Encounter Details Date Type Department Care Team (Late Contact Info) Description 04/25/2003 Outpatient Historical [facility] Pediatrics - [facility] [address] [facility] [address] [place] [address] [place] [address] [place] [address] Social History Tobacco Use Types Packs/Day Years Used Date Smoking Tobacco: Never Assessed Comments Unknown Sex and Gender Information Value Date Recorded Sex Assigned at Not on file Legal Sex Female 4:02 AM LATIN AMERICAN STUDIES PROFESSOR Gender Identity Not on file Sexual Orientation Not on file documented as of this encounter Plan of Treatment Upcoming Encounters Date Type Department Care Team (Late Contact Info) Description 08/15/2025 1:30 PM LATIN AMERICAN STUDIES PROFESSOR Office Visit [facility] Primary Care - Kirby Herrmann [address] [address] [phone] Kassy Jay MD [address] [place] [place] [phone] 09/25/2025 8:30 AM LATIN AMERICAN STUDIES PROFESSOR Video Visit [facility] Adult Psychiatry Var[address] [address] [place] [phone] Argelia Law NP [address] [address] [place] [address] documented as of this encounter Visit Diagnoses Not on filedocumented in this encounter Additional Health Concerns Infection Onset Date Last Indicated Resolved Time R/O COVID-19 06/02/2021 06/03/2021 06/03/2021 7:34 PM CDT R/O COVID-19 12/22/2022 12/22/2022 12/22/2022 12:2 5 PM CDT R/O COVID-19 09/07/2023 09/07/2023 09/07/2023 9:52 PM LATIN AMERICAN STUDIES PROFESSOR documented as of this encounter Care Teams Take Off Worker Relationship Specialty Start Date End Date Kassy Jay MD [address] [place] [address] [phone] PCP - General Family Practice 12/04/22 documented as of this encounter
--- OUTSIDE RECORDS SUMMARY | 2025-08-02 20:12 | XMS_ITS | Encounter Summary ---
Author Organization [facility] Address [address] [place] [address] Care Team Providers Care Architectural Engineering Teacher Name Role Phone Kassy Jay MD Primary Care Provider [phone] Encounter Details Date Type Department Care Team (Late st Contact Info) Description 04/19/2007 Orders Only [facility] Pediatrics - [facility] [address] [facility] [address] [place] [address] [place] [address] [facility] [address] [place] [address] Social History Tobacco Use Types Packs/Day Years Used Date Smoking Tobacco: Never Assessed Comments Unknown Sex and Gender Information Value Date Recorded Sex Assigned at Not on file Legal Sex Female 4:02 AM SUPERVISOR OF OFFICIALS Gender Identity Not on file Sexual Orientation [...] earache. HISTORY: HPI: Has been vacationing in [place]. Has been swimming. Developed left ear pain [...] st Contact Info) Description 08/15/2025 1:30 PM SUPERVISOR OF OFFICIALS Office Visit [facility] Primary Care - Kirby Herrmann [address] [place] [address] [phone] Kassy Jay MD [address] [place] [address] 09/25/2025 8:30 AM SUPERVISOR OF OFFICIALS Video Visit [facility] Adult Psychiatry [place] [address] [facility] [address] [place] [address] [place], Argelia Lopez, ARAMIS [address] [facility] [address] [place] [address] documented as of this encounter Visit Diagnoses Not on filedocumented in this encounter Additional Health Concerns Infection Onset Date Last Indicated Resolved Time R/O COVID-19 06/02/2021 06/03/2021 06/03/2021 7:34 PM CDT R/O COVID-19 12/22/2022 12/22/2022 12/22/2022 12:2 5 PM CDT R/O COVID-19 09/07/2023 09/07/2023 09/07/2023 9:52 PM SUPERVISOR OF OFFICIALS documented as of this encounter Care Teams Architectural Engineering Teacher Relationship Specialty Start Date End Date Kassy Jay MD [address] [place] [address] PCP - General Family Practice 12/04/22 documented as of this encounter
--- OUTSIDE RECORDS SUMMARY | 2025-08-02 20:12 | XMS_ITS | Encounter Summary ---
Author Organization [facility] Address [address] [place] [address] Care Team Providers Care Geothermal Operating Engineer Name Role Phone Kassy Jay MD Primary Care Provider [phone] Encounter Details Date Type Department Care Team (Late Contact Info) Description 12/15/2003 Outpatient Historical [facility] Childrens Respiratory and Sleep Medicine [address] [facility] [address] [address] Gustavo Sims Social History Tobacco Use Types Packs/Day Years Used Date Smoking Tobacco: Never Assessed Comments Unknown Sex and Gender Information Value Date Recorded Sex Assigned at Not on file Legal Sex Female 4:02 AM STUDENT RECORDS COORDINATOR Gender Identity Not on file Sexual Orientation Not on file documented as of this encounter Plan of Treatment Upcoming Encounters Date Type Department Care Team (Late Contact Info) Description 08/15/2025 1:30 PM STUDENT RECORDS COORDINATOR Office Visit [facility] [place] [phone] Kassy Jay MD [address] [place] [address] 09/25/2025 8:30 AM STUDENT RECORDS COORDINATOR Video Visit [facility] Adult Psychiatry [place] [address] [place] [phone] [place], Argelia Lopez NP [address] [address] [place] [address] documented as of this encounter Visit Diagnoses Not on filedocumented in this encounter Additional Health Concerns Infection Onset Date Last Indicated Resolved Time R/O COVID-19 06/02/2021 06/03/2021 06/03/2021 7:34 PM CDT R/O COVID-19 12/22/2022 12/22/2022 12/22/2022 12:2 5 PM CDT R/O COVID-19 09/07/2023 09/07/2023 09/07/2023 9:52 PM STUDENT RECORDS COORDINATOR documented as of this encounter Care Teams Geothermal Operating Engineer Relationship Specialty Start Date End Date Kassy Jay MD [address] [facility] [place] [place] [phone] PCP - General Family Practice 12/04/22 documented as of this encounter
--- OUTSIDE RECORDS SUMMARY | 2025-08-02 20:12 | XMS_ITS | Encounter Summary ---
Author Organization [facility] Address [address] [place] [address] Care Team Providers Care Small Brake Form Operator Name Role Phone Kassy Jay MD Primary Care Provider [phone] Encounter Details Date Type Department Care Team (Late Contact Info) Description 03/26/2004 Outpatient Historical [facility] Pediatrics - [facility] [address] [facility] [address] [place] [address] [place] [address] [facility] [address] [place] [address] Social History Tobacco Use Types Packs/Day Years Used Date Smoking Tobacco: Never Assessed Comments Unknown Sex and Gender Information Value Date Recorded Sex Assigned at Not on file Legal Sex Female 4:02 AM BELLING MACHINE OPERATOR Gender Identity Not on file Sexual Orientation Not on file documented as of this encounter Plan of Treatment Upcoming Encounters Date Type Department Care Team (Late Contact Info) Description 08/15/2025 1:30 PM BELLING MACHINE OPERATOR Office Visit [facility] Primary Care - Kirby Herrmann [address] [place] [address] [phone] Kassy Jay MD [address] [place] [phone] 09/25/2025 8:30 AM BELLING MACHINE OPERATOR Video Visit [facility] Adult Psychiatry [place] [address] [address] [place] [address] Argelia Law NP [address] [address] [place] [address] documented as of this encounter Visit Diagnoses Not on filedocumented in this encounter Additional Health Concerns Infection Onset Date Last Indicated Resolved Time R/O COVID-19 06/02/2021 06/03/2021 06/03/2021 7:34 PM CDT R/O COVID-19 12/22/2022 12/22/2022 12/22/2022 12:2 5 PM CDT R/O COVID-19 09/07/2023 09/07/2023 09/07/2023 9:52 PM BELLING MACHINE OPERATOR documented as of this encounter Care Teams Small Brake Form Operator Relationship Specialty Start Date End Date Kassy Jay MD [address] [place] [phone] PCP - General Family Practice 12/04/22 documented as of this encounter
--- OUTSIDE RECORDS SUMMARY | 2025-08-02 20:12 | XMS_ITS | Encounter Summary ---
Author Organization [facility] Address [address] [place] [address] Care Team Providers Care Placement Interviewer Name Role Phone Kassy Jay MD Primary Care Provider [phone] Encounter Details Date Type Department Care Team (Latest Contact Info) Description 10/09/2003 Outpatient Historical [facility] Gustavo Sims ASTHMA UNSPECIFIED (Primary Dx) Social History Tobacco Use Types Packs/Day Years Used Date Smoking Tobacco: Never Assessed Comments Unknown Sex and Gender Information Value Date Recorded Sex Assigned at Not on file Legal Sex Female 4:02 AM PHYSICIST NUCLEAR Gender Identity Not on file Sexual Orientation Not on file documented as of this encounter Plan of Treatment Upcoming Encounters Date Type Department Care Team (Late st Contact Info) Description 08/15/2025 1:30 PM PHYSICIST NUCLEAR Office Visit [facility] Primary Care - Kirby Herr[place] [address] [place] [address] [phone] Kassy Jay MD [address] [place] [phone] 09/25/2025 8:30 AM PHYSICIST NUCLEAR Video Visit [facility] Adult Psychiatry [place] [address] [address] [place] [phone] Argelia Law NP [address] [address] [place] [address] documented as of this encounter Visit Diagnoses Diagnosis Unspecified asthma(493.90)- Primary Unspecified asthma documented in this encounter Additional Health Concerns Infection Onset Date Last Indicated Resolved Time R/O COVID-19 06/02/2021 06/03/2021 06/03/2021 7:34 PM CDT R/O COVID-19 12/22/2022 12/22/2022 12/22/2022 12:2 5 PM CDT R/O COVID-19 09/07/2023 09/07/2023 09/07/2023 9:52 PM PHYSICIST NUCLEAR documented as of this encounter Care Teams Placement Interviewer Relationship Specialty Start Date End Date Kassy Jay MD [address] [place] [phone] PCP - General Family Practice 12/04/22 documented as of this encounter
--- OUTSIDE RECORDS SUMMARY | 2025-08-02 20:12 | XMS_ITS | Encounter Summary ---
Author Organization [facility] Address [address] [place] [address] Care Team Providers Care Supervisor Cigar Processing Name Role Phone Kassy Jay MD Primary Care Provider [phone] Encounter Details Date Type Department Care Team (Late Contact Info) Description 05/16/2006 Outpatient Historical [facility] Pediatrics - [facility] [address] [facility] [address] [place] [address] [place] [address] [facility] [address] [place] [address] Social History Tobacco Use Types Packs/Day Years Used Date Smoking Tobacco: Never Assessed Comments Unknown Sex and Gender Information Value Date Recorded Sex Assigned at Not on file Legal Sex Female 4:02 AM GOLF BALL TRIMMER Gender Identity Not on file Sexual Orientation Not on file documented as of this encounter Plan of Treatment Upcoming Encounters Date Type Department Care Team (Late Contact Info) Description 08/15/2025 1:30 PM GOLF BALL TRIMMER Office Visit [facility] Primary Care - Kirby Herrmann [address] [place] [phone] Kassy Jay MD [address] [place] [address] [phone] 09/25/2025 8:30 AM GOLF BALL TRIMMER Video Visit [facility] Adult Psychiatry [place] [address] [address] [place] [phone] Argelia Law NP [address] [address] [place] [address] documented as of this encounter Visit Diagnoses Not on filedocumented in this encounter Additional Health Concerns Infection Onset Date Last Indicated Resolved Time R/O COVID-19 06/02/2021 06/03/2021 06/03/2021 7:34 PM CDT R/O COVID-19 12/22/2022 12/22/2022 12/22/2022 12:2 5 PM CDT R/O COVID-19 09/07/2023 09/07/2023 09/07/2023 9:52 PM GOLF BALL TRIMMER documented as of this encounter Care Teams Supervisor Cigar Processing Relationship Specialty Start Date End Date Kassy Jay MD [address] [place] [address] [phone] PCP - General Family Practice 12/04/22 documented as of this encounter
--- OUTSIDE RECORDS SUMMARY | 2025-08-02 20:12 | XMS_ITS | Encounter Summary ---
Author Organization [facility] Address [address] [place] [address] Care Team Providers Care Blindstitch Lapel Padder Name Role Phone Kassy Jay MD Primary Care Provider [phone] Encounter Details Date Type Department Care Team (Late Contact Info) Description 07/13/2001 Outpatient Historical [facility] Pediatrics - [facility] [address] [place] [address] [place] [address] [facility] [address] [address] [place] [address] Social History Tobacco Use Types Packs/Day Years Used Date Smoking Tobacco: Never Assessed Comments Unknown Sex and Gender Information Value Date Recorded Sex Assigned at Not on file Legal Sex Female 4:02 AM RUSTIC FENCE BUILDER Gender Identity Not on file Sexual Orientation Not on file documented as of this encounter Plan of Treatment Upcoming Encounters Date Type Department Care Team (Late Contact Info) Description 08/15/2025 1:30 PM RUSTIC FENCE BUILDER Office Visit [facility] Primary Care - Kirby Herrmann [address] [place] [address] [address] [phone] Kassy Jay MD [address] [place] [place] [address] [phone] 09/25/2025 8:30 AM RUSTIC FENCE BUILDER Video Visit [facility] Adult Psychiatry [place] [address] [address] [place] [phone] Argelia Law NP [address] [address] [place] [address] documented as of this encounter Visit Diagnoses Not on filedocumented in this encounter Additional Health Concerns Infection Onset Date Last Indicated Resolved Time R/O COVID-19 06/02/2021 06/03/2021 06/03/2021 7:34 PM CDT R/O COVID-19 12/22/2022 12/22/2022 12/22/2022 12:2 5 PM CDT R/O COVID-19 09/07/2023 09/07/2023 09/07/2023 9:52 PM RUSTIC FENCE BUILDER documented as of this encounter Care Teams Blindstitch Lapel Padder Relationship Specialty Start Date End Date Kassy Jay MD [address] [place] [address] [phone] PCP - General Family Practice 12/04/22 documented as of this encounter
--- OUTSIDE RECORDS SUMMARY | 2025-08-02 20:12 | XMS_ITS | Encounter Summary ---
Author Organization [facility] Address [address] [place] [address] Care Team Providers Care Buyer Agent Name Role Phone Kassy Jay MD Primary Care Provider [phone] Encounter Details Date Type Department Care Team (Late Contact Info) Description 10/09/2003 Outpatient Historical [facility] Childrens Respiratory and Sleep Medicine [address] [facility] [address] [address] Gustavo Sims Social History Tobacco Use Types Packs/Day Years Used Date Smoking Tobacco: Never Assessed Comments Unknown Sex and Gender Information Value Date Recorded Sex Assigned at Not on file Legal Sex Female 4:02 AM ETHICS MANAGER Gender Identity Not on file Sexual Orientation Not on file documented as of this encounter Plan of Treatment Upcoming Encounters Date Type Department Care Team (Late Contact Info) Description 08/15/2025 1:30 PM ETHICS MANAGER Office Visit [facility] Primary [place] [address] [place] [phone] Kassy Jay MD [address] [place] [phone] 09/25/2025 8:30 AM ETHICS MANAGER Video Visit [facility] Adult Psychiatry [place] [address] [place] [phone] [place], Argelia Lopez NP [address] [address] [place] [address] documented as of this encounter Visit Diagnoses Not on filedocumented in this encounter Additional Health Concerns Infection Onset Date Last Indicated Resolved Time R/O COVID-19 06/02/2021 06/03/2021 06/03/2021 7:34 PM CDT R/O COVID-19 12/22/2022 12/22/2022 12/22/2022 12:2 5 PM CDT R/O COVID-19 09/07/2023 09/07/2023 09/07/2023 9:52 PM ETHICS MANAGER documented as of this encounter Care Teams Buyer Agent Relationship Specialty Start Date End Date Kassy Jay MD [address] [facility] [place] [phone] PCP - General Family Practice 12/04/22 documented as of this encounter
--- OUTSIDE RECORDS SUMMARY | 2025-08-02 20:12 | XMS_ITS | Encounter Summary ---
Author Organization [facility] Address [address] [place] [address] Care Team Providers Care Modeling And Simulation Analyst Name Role Phone Kassy Jay MD Primary Care Provider [phone] Encounter Details Date Type Department Care Team (Late Contact Info) Description 06/07/[address] [facility] Childrens Respiratory and Sleep Medicine [address] [facility] [address] [address] Gustavo Sims Social History Tobacco Use Types Packs/Day Years Used Date Smoking Tobacco: Never Assessed Comments Unknown Sex and Gender Information Value Date Recorded Sex Assigned at Not on file Legal Sex Female 4:02 AM GRADUATE FELLOW Gender Identity Not on file Sexual Orientation Not on file documented as of this encounter Plan of Treatment Upcoming Encounters Date Type Department Care Team (Late Contact Info) Description 08/15/2025 1:30 PM GRADUATE FELLOW Office Visit [facility] [place] [address] [phone] Kassy Jay MD [address] [place] [phone] 09/25/2025 8:30 AM GRADUATE FELLOW Video Visit [facility] Adult Psychiatry [place] [address] [place] [phone] [place], Argelia Lopez NP [address] [address] [place] [address] documented as of this encounter Visit Diagnoses Not on filedocumented in this encounter Additional Health Concerns Infection Onset Date Last Indicated Resolved Time R/O COVID-19 06/02/2021 06/03/2021 06/03/2021 7:34 PM CDT R/O COVID-19 12/22/2022 12/22/2022 12/22/2022 12:2 5 PM CDT R/O COVID-19 09/07/2023 09/07/2023 09/07/2023 9:52 PM GRADUATE FELLOW documented as of this encounter Care Teams Modeling And Simulation Analyst Relationship Specialty Start Date End Date Kassy Jay MD [address] [facility] [place] [phone] PCP - General Family Practice 12/04/22 documented as of this encounter
--- OUTSIDE RECORDS SUMMARY | 2025-08-02 20:12 | XMS_ITS | Encounter Summary ---
Author Organization [facility] Address [address] [place] [address] Care Team Providers Care Pullboat Engineer Name Role Phone Kassy Jay MD Primary Care Provider [phone] Encounter Details Date Type Department Care Team (Late Contact Info) Description 03/15/2002 Outpatient Historical [facility] Pediatrics - [facility] [address] [facility] [address] [place] [address] [place] [address] [address] [facility] [address] [place] [address] Social History Tobacco Use Types Packs/Day Years Used Date Smoking Tobacco: Never Assessed Comments Unknown Sex and Gender Information Value Date Recorded Sex Assigned at Not on file Legal Sex Female 4:02 AM MOLECULAR PHYSICIST Gender Identity Not on file Sexual Orientation Not on file documented as of this encounter Plan of Treatment Upcoming Encounters Date Type Department Care Team (Late Contact Info) Description 08/15/2025 1:30 PM MOLECULAR PHYSICIST Office Visit [facility] Primary Care - Kirby Herrmann [address] [address] [phone] Kassy Jay MD [address] [place] [phone] 09/25/2025 8:30 AM MOLECULAR PHYSICIST Video Visit [facility] Adult Psychiatry [place] [address] [address] [place] [phone] Argelia Law NP [address] [address] [place] [address] documented as of this encounter Visit Diagnoses Not on filedocumented in this encounter Additional Health Concerns Infection Onset Date Last Indicated Resolved Time R/O COVID-19 06/02/2021 06/03/2021 06/03/2021 7:34 PM CDT R/O COVID-19 12/22/2022 12/22/2022 12/22/2022 12:2 5 PM CDT R/O COVID-19 09/07/2023 09/07/2023 09/07/2023 9:52 PM MOLECULAR PHYSICIST documented as of this encounter Care Teams Pullboat Engineer Relationship Specialty Start Date End Date Kassy Jay MD [address] [place] [phone] PCP - General Family Practice 12/04/22 documented as of this encounter
--- OUTSIDE RECORDS SUMMARY | 2025-08-02 20:12 | XMS_ITS | Encounter Summary ---
Author Organization [facility] Address [address] [place] [address] Care Team Providers Care Bid Manager Name Role Phone Kassy Jay MD Primary Care Provider [phone] Encounter Details Date Type Department Care Team (Late Contact Info) Description 05/02/2002 Outpatient Historical [facility] Pediatrics - [facility] [address] [facility] [address] [place] [address] [place] [address] [facility] [address] [place] [address] Social History Tobacco Use Types Packs/Day Years Used Date Smoking Tobacco: Never Assessed Comments Unknown Sex and Gender Information Value Date Recorded Sex Assigned at Not on file Legal Sex Female 4:02 AM CAKE WRAPPER Gender Identity Not on file Sexual Orientation Not on file documented as of this encounter Plan of Treatment Upcoming Encounters Date Type Department Care Team (Late Contact Info) Description 08/15/2025 1:30 PM CAKE WRAPPER Office Visit [facility] Primary Care - Kirby Herrmann [address] [phone] Kassy Jay MD [address] [place] [address] [phone] 09/25/2025 8:30 AM CAKE WRAPPER Video Visit [facility] Adult Psychiatry [place] [address] [address] [place] [phone] Argelia Law NP [address] [address] [place] [address] documented as of this encounter Visit Diagnoses Not on filedocumented in this encounter Additional Health Concerns Infection Onset Date Last Indicated Resolved Time R/O COVID-19 06/02/2021 06/03/2021 06/03/2021 7:34 PM CDT R/O COVID-19 12/22/2022 12/22/2022 12/22/2022 12:2 5 PM CDT R/O COVID-19 09/07/2023 09/07/2023 09/07/2023 9:52 PM CAKE WRAPPER documented as of this encounter Care Teams Bid Manager Relationship Specialty Start Date End Date Kassy Jay MD [address] [place] [place] [address] [phone] PCP - General Family Practice 12/04/22 documented as of this encounter
--- OUTSIDE RECORDS SUMMARY | 2025-08-02 20:12 | XMS_ITS | Encounter Summary ---
Author Organization [facility] Address [address] [place] [address] Care Team Providers Care Hat Block Bench Hand Name Role Phone Kassy Jay MD Primary Care Provider [phone] Encounter Details Date Type Department Care Team (Late Contact Info) Description 04/18/2002 Outpatient Historical [facility] Pediatrics - [facility] [address] [facility] [address] [place] [address] [place] [address] [facility] [address] [address] [place] [address] Social History Tobacco Use Types Packs/Day Years Used Date Smoking Tobacco: Never Assessed Comments Unknown Sex and Gender Information Value Date Recorded Sex Assigned at Not on file Legal Sex Female 4:02 AM WEIGHT LOSS CONSULTANT Gender Identity Not on file Sexual Orientation Not on file documented as of this encounter Plan of Treatment Upcoming Encounters Date Type Department Care Team (Late Contact Info) Description 08/15/2025 1:30 PM WEIGHT LOSS CONSULTANT Office Visit [facility] Primary Care - Kirby Herrmann [address] [phone] Kassy Jay MD [address] [place] [place] [address] [phone] 09/25/2025 8:30 AM WEIGHT LOSS CONSULTANT Video Visit [facility] Adult Psychiatry [place] [address] [address] [place] [phone] Argelia Law NP [address] [address] [place] [address] documented as of this encounter Visit Diagnoses Not on filedocumented in this encounter Additional Health Concerns Infection Onset Date Last Indicated Resolved Time R/O COVID-19 06/02/2021 06/03/2021 06/03/2021 7:34 PM CDT R/O COVID-19 12/22/2022 12/22/2022 12/22/2022 12:2 5 PM CDT R/O COVID-19 09/07/2023 09/07/2023 09/07/2023 9:52 PM WEIGHT LOSS CONSULTANT documented as of this encounter Care Teams Hat Block Bench Hand Relationship Specialty Start Date End Date Kassy Jay MD [address] [place] [address] [phone] PCP - General Family Practice 12/04/22 documented as of this encounter
--- OUTSIDE RECORDS SUMMARY | 2025-08-02 20:12 | XMS_ITS | Encounter Summary ---
Author Organization [facility] Address [address] [place] [address] Care Team Providers Care Skid Road Man Name Role Phone Kassy Jay MD Primary Care Provider [phone] Encounter Details Date Type Department Care Team (Late Contact Info) Description 08/01/2003 Outpatient Historical [facility] Pediatrics - [facility] [address] [facility] [address] [place] [address] [place] [address] [place] [address] Social History Tobacco Use Types Packs/Day Years Used Date Smoking Tobacco: Never Assessed Comments Unknown Sex and Gender Information Value Date Recorded Sex Assigned at Not on file Legal Sex Female 4:02 AM PASTA PRESS OPERATOR Gender Identity Not on file Sexual Orientation Not on file documented as of this encounter Plan of Treatment Upcoming Encounters Date Type Department Care Team (Late Contact Info) Description 08/15/2025 1:30 PM PASTA PRESS OPERATOR Office Visit [facility] Primary Care - Kirby Herrmann [address] [phone] Kassy Jay MD [address] [place] [address] [place] [address] [phone] 09/25/2025 8:30 AM PASTA PRESS OPERATOR Video Visit [facility] Adult Psychiatry [place] [address] [address] [place] [phone] Argelia Law NP [address] [address] [place] [address] documented as of this encounter Visit Diagnoses Not on filedocumented in this encounter Additional Health Concerns Infection Onset Date Last Indicated Resolved Time R/O COVID-19 06/02/2021 06/03/2021 06/03/2021 7:34 PM CDT R/O COVID-19 12/22/2022 12/22/2022 12/22/2022 12:2 5 PM CDT R/O COVID-19 09/07/2023 09/07/2023 09/07/2023 9:52 PM PASTA PRESS OPERATOR documented as of this encounter Care Teams Skid Road Man Relationship Specialty Start Date End Date Ksasy Jya MD [address] [place] [address] [phone] PCP - General Family Practice 12/04/22 documented as of this encounter
--- OUTSIDE RECORDS SUMMARY | 2025-08-02 20:12 | XMS_ITS | Encounter Summary ---
Author Organization [facility] Address [address] [place] [address] Care Team Providers Care Estimator Printing Name Role Phone Kassy Jay MD Primary Care Provider [phone] Encounter Details Date Type Department Care Team (Latest Contact Info) Description 12/15/2003 Outpatient Historical [facility] Gustavo Sims ASTHMA UNSPECIFIED (Primary Dx) Social History Tobacco Use Types Packs/Day Years Used Date Smoking Tobacco: Never Assessed Comments Unknown Sex and Gender Information Value Date Recorded Sex Assigned at Not on file Legal Sex Female 4:02 AM PIT BOSS Gender Identity Not on file Sexual Orientation Not on file documented as of this encounter Plan of Treatment Upcoming Encounters Date Type Department Care Team (Late st Contact Info) Description 08/15/2025 1:30 PM PIT BOSS Office Visit [facility] Primary Care - Kirby Herrmann [address] [phone] Kassy Jay MD [address] [place] [place] [address] [phone] 09/25/2025 8:30 AM PIT BOSS Video Visit [facility] Adult Psychiatry [place] [address] [address] [place] [phone] Argelia Law NP [address] [address] [place] [address] documented as of this encounter Visit Diagnoses Diagnosis Unspecified asthma(493.90)- Primary Unspecified asthma documented in this encounter Additional Health Concerns Infection Onset Date Last Indicated Resolved Time R/O COVID-19 06/02/2021 06/03/2021 06/03/2021 7:34 PM CDT R/O COVID-19 12/22/2022 12/22/2022 12/22/2022 12:2 5 PM CDT R/O COVID-19 09/07/2023 09/07/2023 09/07/2023 9:52 PM PIT BOSS documented as of this encounter Care Teams Estimator Printing Relationship Specialty Start Date End Date Kassy Jay MD [address] [place] [address] [phone] PCP - General Family Practice 12/04/22 documented as of this encounter
--- OUTSIDE RECORDS SUMMARY | 2025-08-02 20:12 | XMS_ITS | Encounter Summary ---
Author Organization [facility] Address [address] [place] [address] Care Team Providers Care Animal Hospital Clerk Name Role Phone Kassy Jay MD Primary Care Provider [phone] Encounter Details Date Type Department Care Team (Late Contact Info) Description 06/16/2002 Outpatient Historical [facility] Childrens Respiratory and Sleep Medicine [address] [facility] [address] [address] Gustavo Sims Social History Tobacco Use Types Packs/Day Years Used Date Smoking Tobacco: Never Assessed Comments Unknown Sex and Gender Information Value Date Recorded Sex Assigned at Not on file Legal Sex Female 4:02 AM MEDICAL STAFF SPECIALIST Gender Identity Not on file Sexual Orientation Not on file documented as of this encounter Plan of Treatment Upcoming Encounters Date Type Department Care Team (Late Contact Info) Description 08/15/2025 1:30 PM MEDICAL STAFF SPECIALIST Office Visit [facility] [place] [phone] Kassy Jay MD [address] [place] [address] 09/25/2025 8:30 AM MEDICAL STAFF SPECIALIST Video Visit [facility] Adult Psychiatry [place] [address] [place] [phone] [place], Argelia Lopez NP [address] [address] [place] [address] documented as of this encounter Visit Diagnoses Not on filedocumented in this encounter Additional Health Concerns Infection Onset Date Last Indicated Resolved Time R/O COVID-19 06/02/2021 06/03/2021 06/03/2021 7:34 PM CDT R/O COVID-19 12/22/2022 12/22/2022 12/22/2022 12:2 5 PM CDT R/O COVID-19 09/07/2023 09/07/2023 09/07/2023 9:52 PM MEDICAL STAFF SPECIALIST documented as of this encounter Care Teams Animal Hospital Clerk Relationship Specialty Start Date End Date Kassy Jay MD [address] [facility] [place] [phone] PCP - General Family Practice 12/04/22 documented as of this encounter
--- OUTSIDE RECORDS SUMMARY | 2025-08-02 20:12 | XMS_ITS | Encounter Summary ---
Author Organization [facility] Address [address] [place] [address] Care Team Providers Care Supply Chain Buyer Name Role Phone Kassy Jay MD Primary Care Provider [phone] Encounter Details Date Type Department Care Team ([facility] Contact Info) Description 07/03/2007 Outpatient Historical [facility] Pediatrics - [facility] [address] [facility] [address] [facility] [address] [place] [address] [place] [address] [facility] [address] [place] [address] Social History Tobacco Use Types Packs/Day Years Used Date Smoking Tobacco: Never Assessed Comments Unknown Sex and Gender Information Value Date Recorded Sex Assigned at Not on file Legal Sex Female 4:02 AM WILDLIFE MANAGEMENT PROFESSOR Gender Identity Not on file Sexual [...] Date Type Department Care Team ([facility] Contact Info) Description 08/15/2025 1:30 PM WILDLIFE MANAGEMENT PROFESSOR Office Visit [facility] Primary Care - Michael Herrmann [address] [place] [phone] Kassy Jay MD [address] [place] [phone] 09/25/2025 8:30 AM WILDLIFE MANAGEMENT PROFESSOR Video Visit [facility] Adult Psychiatry Varinder [address] [address] [place] [address] Argelia Law NP [address] [address] [place] [address] documented as of this encounter Visit Diagnoses Not on filedocumented in this encounter Additional Health Concerns Infection Onset Date Last Indicated Resolved Time R/O COVID-19 06/02/2021 06/03/2021 06/03/2021 7:34 PM CDT R/O COVID-19 12/22/2022 12/22/2022 12/22/2022 12:2 5 PM CDT R/O COVID-19 09/07/2023 09/07/2023 09/07/2023 9:52 PM WILDLIFE MANAGEMENT PROFESSOR documented as of this encounter Care Teams Supply Chain Buyer Relationship Specialty Start Date End Date Kassy Jay MD [address] [place] [address] PCP - General Family Practice 12/04/22 documented as of this encounter
--- OUTSIDE RECORDS SUMMARY | 2025-08-02 20:12 | XMS_ITS | Encounter Summary ---
Author Organization [facility] Address [address] [place] [address] Care Team Providers Care Auger Machine Offbearer Name Role Phone Kasys Jay MD Primary Care Provider [phone] Encounter Details Date Type Department Care Team (Late Contact Info) Description 04/13/2002 Outpatient Historical [facility] Department of Peds at [address] [phone] Diandra Brown MD [address] [facility] [address] [place] [address] Social History Tobacco Use Types Packs/Day Years Used Date Smoking Tobacco: Never Assessed Comments Unknown Sex and Gender Information Value Date Recorded Sex Assigned at Not on file Legal Sex Female 4:02 AM COMPUTER SYSTEMS SECURITY ADMINISTRATOR Gender Identity Not on file Sexual Orientation Not on file documented as of this encounter Plan of Treatment Upcoming Encounters Date Type Department Care Team (Late Contact Info) Description 08/15/2025 1:30 PM COMPUTER SYSTEMS SECURITY ADMINISTRATOR Office Visit [facility] Primary Care - Kirby Herrmann [address] [place] [phone] Kassy Jay MD [address] [place] [phone] 09/25/2025 8:30 AM COMPUTER SYSTEMS SECURITY ADMINISTRATOR Video Visit [facility] Adult Psychiatry Varinder [address] [address] [place] [phone] Argelia Law NP [address] [address] [place] [address] documented as of this encounter Visit Diagnoses Not on filedocumented in this encounter Additional Health Concerns Infection Onset Date Last Indicated Resolved Time R/O COVID-19 06/02/2021 06/03/2021 06/03/2021 7:34 PM CDT R/O COVID-19 12/22/2022 12/22/2022 12/22/2022 12:2 5 PM CDT R/O COVID-19 09/07/2023 09/07/2023 09/07/2023 9:52 PM COMPUTER SYSTEMS SECURITY ADMINISTRATOR documented as of this encounter Care Teams Auger Machine Offbearer Relationship Specialty Start Date End Date Kassy Jay MD [address] [place] [address] PCP - General Family Practice 12/04/22 documented as of this encounter
--- OUTSIDE RECORDS SUMMARY | 2025-08-02 20:12 | XMS_ITS | Encounter Summary ---
Author Organization [facility] Address [address] [place] [address] Care Team Providers Care Billet Heater Name Role Phone Kassy Jay MD Primary Care Provider [phone] Encounter Details Date Type Department Care Team (Late Contact Info) Description 06/30/2007 Outpatient Historical [facility] Pediatrics - [place] [address] [place] [address] [place] [address] [address] [facility] [address] [place] [address] Social History Tobacco Use Types Packs/Day Years Used Date Smoking Tobacco: Never Assessed Comments Unknown Sex and Gender Information Value Date Recorded Sex Assigned at Not on file Legal Sex Female 4:02 AM COAGULANT DIPPER Gender Identity Not on file Sexual Orientation Not on file documented as of this encounter Plan of Treatment Upcoming Encounters Date Type Department Care Team (Late Contact Info) Description 08/15/2025 1:30 PM COAGULANT DIPPER Office Visit [facility] Primary Care - Kirby Herrmann [address] [place] [address] [phone] Kassy Jya MD [address] [place] [place] [phone] 09/25/2025 8:30 AM COAGULANT DIPPER Video Visit [facility] Adult Psychiatry Varinder [address] [address] [place] [phone] Argelia Law NP [address] [address] [place] [address] documented as of this encounter Visit Diagnoses Not on filedocumented in this encounter Additional Health Concerns Infection Onset Date Last Indicated Resolved Time R/O COVID-19 06/02/2021 06/03/2021 06/03/2021 7:34 PM CDT R/O COVID-19 12/22/2022 12/22/2022 12/22/2022 12:2 5 PM CDT R/O COVID-19 09/07/2023 09/07/2023 09/07/2023 9:52 PM COAGULANT DIPPER documented as of this encounter Care Teams Billet Heater Relationship Specialty Start Date End Date Kassy Jay MD [address] [place] [address] [phone] PCP - General Family Practice 12/04/22 documented as of this encounter
--- OUTSIDE RECORDS SUMMARY | 2025-08-02 20:12 | XMS_ITS | Encounter Summary ---
Author Organization [facility] Address [address] [place] [address] Care Team Providers Care Driver Engineer Name Role Phone Kassy Jay MD Primary Care Provider [phone] Encounter Details Date Type Department Care Team (Late Contact Info) Description 04/14/2002 Outpatient Historical [facility] Pediatrics - [facility] [address] [facility] [address] [place] [address] [place] [address] [address] [facility] [address] [place] [address] Social History Tobacco Use Types Packs/Day Years Used Date Smoking Tobacco: Never Assessed Comments Unknown Sex and Gender Information Value Date Recorded Sex Assigned at Not on file Legal Sex Female 4:02 AM CINDER PIT CRANE OPERATOR Gender Identity Not on file Sexual Orientation Not on file documented as of this encounter Plan of Treatment Upcoming Encounters Date Type Department Care Team (Late Contact Info) Description 08/15/2025 1:30 PM CINDER PIT CRANE OPERATOR Office Visit [facility] Primary Care - Kirby Herrmann [address] [place] [address] [phone] Kassy Jay MD [address] [place] [phone] 09/25/2025 8:30 AM CINDER PIT CRANE OPERATOR Video Visit [facility] Adult Psychiatry Varinder [address] [address] [place] [phone] Argelia Law NP [address] [address] [place] [address] documented as of this encounter Visit Diagnoses Not on filedocumented in this encounter Additional Health Concerns Infection Onset Date Last Indicated Resolved Time R/O COVID-19 06/02/2021 06/03/2021 06/03/2021 7:34 PM CDT R/O COVID-19 12/22/2022 12/22/2022 12/22/2022 12:2 5 PM CDT R/O COVID-19 09/07/2023 09/07/2023 09/07/2023 9:52 PM CINDER PIT CRANE OPERATOR documented as of this encounter Care Teams Driver Engineer Relationship Specialty Start Date End Date Kassy Jay MD [address] [place] [address] [phone] PCP - General Family Practice 12/04/22 documented as of this encounter
--- OUTSIDE RECORDS SUMMARY | 2025-08-02 20:12 | XMS_ITS | Encounter Summary ---
Author Organization [facility] Address [address] [place] [address] Care Team Providers Care Interactive Multimedia Designer Name Role Phone Kassy Jay MD Primary Care Provider [phone] Encounter Details Date Type Department Care Team ([facility] Contact Info) Description 04/19/2007 Outpatient Historical [facility] Pediatrics - [facility] [address] [facility] [address] [place] [address] [place] [address] [facility] [address] [place] [address] Social History Tobacco Use Types Packs/Day Years Used Date Smoking Tobacco: Never Assessed Comments Unknown Sex and Gender Information Value Date Recorded Sex Assigned at Not on file Legal Sex Female 4:02 AM LANGUAGE ASST Gender Identity Not on file Sexual Orientation [...] Hospital Contact Info) Description 08/15/2025 1:30 PM LANGUAGE ASST Office Visit [facility] Primary Care - Michael Herrmann [address] [place] [phone] Kassy Jay MD [address] [place] [phone] 09/25/2025 8:30 AM LANGUAGE ASST Video Visit [facility] Adult Psychiatry Varinder [address] [address] [place] [address] Argelia Law NP [address] [address] [place] [address] documented as of this encounter Visit Diagnoses Not on filedocumented in this encounter Additional Health Concerns Infection Onset Date Last Indicated Resolved Time R/O COVID-19 06/02/2021 06/03/2021 06/03/2021 7:34 PM CDT R/O COVID-19 12/22/2022 12/22/2022 12/22/2022 12:2 5 PM CDT R/O COVID-19 09/07/2023 09/07/2023 09/07/2023 9:52 PM LANGUAGE ASST documented as of this encounter Care Teams Interactive Multimedia Designer Relationship Specialty Start Date End Date Kassy Jay MD [address] [place] [phone] PCP - General Family Practice 12/04/22 documented as of this encounter
--- OUTSIDE RECORDS SUMMARY | 2025-08-02 20:12 | XMS_ITS | Encounter Summary ---
Author Organization [facility] Address [address] [place] [address] Care Team Providers Care Cold Meat Chef Name Role Phone Kassy Jay MD Primary Care Provider [phone] Encounter Details Date Type Department Care Team (Late Contact Info) Description 04/13/2002 Outpatient Historical [facility] Pediatrics - [facility] [address] [facility] [address] [place] [address] [place] [address] [address] [facility] [address] [place] [address] Social History Tobacco Use Types Packs/Day Years Used Date Smoking Tobacco: Never Assessed Comments Unknown Sex and Gender Information Value Date Recorded Sex Assigned at Not on file Legal Sex Female 4:02 AM METALS ANALYST Gender Identity Not on file Sexual Orientation Not on file documented as of this encounter Plan of Treatment Upcoming Encounters Date Type Department Care Team (Late Contact Info) Description 08/15/2025 1:30 PM METALS ANALYST Office Visit [facility] Primary Care - Kirby Herrmann [address] [address] [phone] Kassy Jay MD [address] [place] [place] [address] [phone] 09/25/2025 8:30 AM METALS ANALYST Video Visit [facility] Adult Psychiatry Varinder [address] [address] [place] [phone] Argelia Law NP [address] [address] [place] [address] documented as of this encounter Visit Diagnoses Not on filedocumented in this encounter Additional Health Concerns Infection Onset Date Last Indicated Resolved Time R/O COVID-19 06/02/2021 06/03/2021 06/03/2021 7:34 PM CDT R/O COVID-19 12/22/2022 12/22/2022 12/22/2022 12:2 5 PM CDT R/O COVID-19 09/07/2023 09/07/2023 09/07/2023 9:52 PM METALS ANALYST documented as of this encounter Care Teams Cold Meat Chef Relationship Specialty Start Date End Date Kassy Jay MD [address] [place] [address] [phone] PCP - General Family Practice 12/04/22 documented as of this encounter
--- OUTSIDE RECORDS SUMMARY | 2025-08-02 20:13 | XMS_ITS | Encounter Summary ---
Author Organization [facility] Address [address] [place] [address] Care Team Providers Care Order Builder Name Role Phone Kassy Jay MD Primary Care Provider [phone] Encounter Details Date Type Department Care Team (Late Contact Info) Description 02/26/1999 Outpatient Historical [facility] Pediatrics - [facility] [address] [facility] [address] [address] [place] [address] Darren Tabor MD NO ADDRESS ON FILE Social History Tobacco Use Types Packs/Day Years Used Date Smoking Tobacco: Never Assessed Comments Unknown Sex and Gender Information Value Date Recorded Sex Assigned at Not on file Legal Sex Female 4:02 AM STRIPPER LATEX Gender Identity Not on file Sexual Orientation Not on file documented as of this encounter Plan of Treatment Upcoming Encounters Date Type Department Care Team (Late Contact Info) Description 08/15/2025 1:30 PM STRIPPER LATEX Office Visit [facility] Primary Care - Kirby Herrmann [address] [phone] Kassy Jay MD [address] [place] [address] [phone] 09/25/2025 8:30 AM STRIPPER LATEX Video Visit [facility] [address]iatry [address] [phone] Argelia Law, [place] [address] [address] [place] [address] documented as of this encounter Visit Diagnoses Not on filedocumented in this encounter Additional Health Concerns Infection Onset Date Last Indicated Resolved Time R/O COVID-19 06/02/2021 06/03/2021 06/03/2021 7:34 PM CDT R/O COVID-19 12/22/2022 12/22/2022 12/22/2022 12:2 5 PM CDT R/O COVID-19 09/07/2023 09/07/2023 09/07/2023 9:52 PM STRIPPER LATEX documented as of this encounter Care Teams Order Builder Relationship Specialty Start Date End Date Kassy Jay MD [address] [phone] PCP - General Family Practice 12/04/22 documented as of this encounter
--- OUTSIDE RECORDS SUMMARY | 2025-08-02 20:13 | XMS_ITS | Clinical Summary ---
Author Organization [facility] Address [address] [place] [address] Care Team Providers Care Terrazzo Journeyman Name Role Phone Kassy Jay MD Primary Care Provider No, Physician Unavailable Allergies Active Allergy Reactions [...] 08/25/2022 Assessment & Plan (08/26/2022 1:10 PM HANDICAPPER HARNESS RACING): - pt presenting after shaking episode similar to previous episodes of psychogenic nonepileptic seizures. 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 - Admitted for Observation secondary to sedation. Back to baseline mental status today. Assessment & Plan (08/25/2022 10:54 PM HANDICAPPER HARNESS RACING): - pt presenting after shaking episode similar [...] of hypoglycemia since April, was following with [facility] Endocrinology. Recently started on diazoxide. BG [...] fast today, sent hypoglycemia labs. Discussed with veroncia, outpatient grinder brake lining Dr. Mejia will f/u with results & [...] 07/20/2022 Assessment & Plan (08/25/2022 10:40 PM HANDICAPPER HARNESS RACING): -cont linzess Assessment & Plan (07/21/2022 10:08 AM CDT): - Continue home Linzess and Colace Assessment & Plan (07/20/2022 8:31 PM CDT): -Continue home Linzess and Colace. Asthma 11/06/2020 Assessment & Plan (08/26/2022 1:11 PM HANDICAPPER HARNESS RACING): - stable, cont home inhalers Assessment & Plan (08/25/2022 10:41 PM HANDICAPPER HARNESS RACING): -cont home inhalers Gastroesophageal reflux disease 11/06/2020 Assessment & Plan (08/26/2022 1:11 PM HANDICAPPER HARNESS RACING): -cont pepcid and ppi Assessment & Plan (08/25/2022 10:40 PM HANDICAPPER HARNESS RACING): - cont pepcid and ppi Assessment & [...] 9:01 AM CDT): Patient reports follows with [facility] psychiatry. Pharmacy list confirmed with patient. Concern of polypharmacy discussed with patient. - witnessed pseudoseizure 07/22 AM, VS stable and BG 111. No meds given. Self resolved. - Continue home Lamictal, Topomax and gabapentin Assessment & Plan (07/20/2022 8:27 PM CDT): -Patient reports follows with [facility] psychiatry. Pharmacy list confirmed with patient. [...] celexa Assessment & Plan (08/26/2022 1:11 PM HANDICAPPER HARNESS RACING): - patient with chart history of BARBIE, MDD, ptsd, and borderline personality disorder. - follows with psychiatrist and on extensive medication regimen. - cont home duloxetine, lurasidone, lamotrigine, and prazosin. - held several medications including nortriptyline, temazepam,clonazepam and gabapentin given drowsiness Assessment & Plan (08/25/2022 10:46 PM HANDICAPPER HARNESS RACING): - patient with chart history of BARBIE, [...] 01/21/2017 Overview (05/17/2020): Overview: Overview: Thinks from [facility]; has follow up with 02/06/17 Asthma, [...] on file Legal Sex Female 11:33 PM HANDICAPPER HARNESS RACING Gender Identity Female 05/17/2020 9:28 AM CDT Sexual Orientation Straight 05/17/2020 9: 28 AM CDT Last Filed Vital Signs Vital Sign Reading Time Taken Comments Blood Pressure 106/54 08/26/2022 8:50 AM HANDICAPPER HARNESS RACING Pulse 92 08/26/2022 8:18 AM HANDICAPPER HARNESS RACING Temperature 36.6 C (97.9 F) 08/26/2022 8:18 AM HANDICAPPER HARNESS RACING Respiratory Rate 16 08/26/2022 8:18 AM HANDICAPPER HARNESS RACING Oxygen Saturation 97% 08/26/2022 8:18 AM HANDICAPPER HARNESS RACING Inhaled Oxygen Concentration - - Weight 93.4 kg (205 lb 14.4 oz) 022 11:06 PM HANDICAPPER HARNESS RACING Height 154.9 cm (5' 1) 08/25/2022 11:0 6 PM HANDICAPPER HARNESS RACING Body Mass Index 38.9 08/25/2022 11:06 PM HANDICAPPER HARNESS RACING Plan of Treatment Health Maintenance Due Date [...] Varicella Vaccines Completed 02/15/2016, 02/26/1999 Insurance [facility] CHOICE OOS [facility] CHOICE OOS Member Subscriber Plan / Payer (Ef fective 2017-Present) Name:Isaura Holland Relation to Subscriber:Child Name:ORIN HOLLAND Date of :1899 (Home) [address]: [address] [place] [address] Payer ID:[id number] (NAIC) Type:[employer] Address: [address] BLUE MD BLUE ACC CHOICE OOS [place]ALTH[place]UE [place] Advance Directives For more information, please contact: [phone] * Full Code (Latest Code Status on File) Date Activated Date Inactivated Comments 08/25/2022 11:05 PM 08/26/2022 6:08 PM * Full Code Date Activated Date Inactivated Comments 07/20/2022 7:11 PM 07/23/2022 7:19 PM Care Teams Terrazzo Journeyman Relationship Specialty Start Date End Date Kassy Jay MD [address] [place] [phone] PCP - General Family Practice 07/21/22 No, Physician 08/26/22
--- OUTSIDE RECORDS SUMMARY | 2025-08-02 20:13 | XMS_ITS | Encounter Summary ---
Author Organization [facility] Address [address] [place] [address] Care Team Providers Care Feed Manager Name Role Phone Kassy Jay MD Primary Care Provider [phone] Encounter Details Date Type Department Care Team (Late Contact Info) Description 02/24/2001 Outpatient Historical [facility] Pediatrics - [facility] [address] [address] [facility] [address] [place] [address] [place] [address] [address] [facility] [address] [address] [place] [address] Social History Tobacco Use Types Packs/Day Years Used Date Smoking Tobacco: Never Assessed Comments Unknown Sex and Gender Information Value Date Recorded Sex Assigned at Not on file Legal Sex Female 4:02 AM DIRECTOR WEB Gender Identity Not on file Sexual Orientation Not on file documented as of this encounter Plan of Treatment Upcoming Encounters Date Type Department Care Team (Late Contact Info) Description 08/15/2025 1:30 PM DIRECTOR WEB Office Visit [facility] Primary Care - Kirby Herrmann [address] [place] [phone] Kassy Jay MD [address] [phone] 09/25/2025 8:30 AM DIRECTOR WEB Video Visit [facility] Adult Psychiatry Varinder [address] [address] [place] [phone] Argelia Law NP [address] [address] [place] [address] documented as of this encounter Visit Diagnoses Not on filedocumented in this encounter Additional Health Concerns Infection Onset Date Last Indicated Resolved Time R/O COVID-19 06/02/2021 06/03/2021 06/03/2021 7:34 PM CDT R/O COVID-19 12/22/2022 12/22/2022 12/22/2022 12:2 5 PM CDT R/O COVID-19 09/07/2023 09/07/2023 09/07/2023 9:52 PM DIRECTOR WEB documented as of this encounter Care Teams Feed Manager Relationship Specialty Start Date End Date Kassy Jay MD [address] [place] [address] [phone] PCP - General Family Practice 12/04/22 documented as of this encounter
--- OUTSIDE RECORDS SUMMARY | 2025-08-02 20:13 | XMS_ITS | Encounter Summary ---
Author Organization [facility] Address [address] [place] [address] Care Team Providers Care Sushi Chef Name Role Phone Kassy Jay MD Primary Care Provider [phone] Encounter Details Date Type Department Care Team (Late Contact Info) Description 06/15/2000 Outpatient Historical [facility] Pediatrics - [facility] [address] [facility] [place] [address] [place] [address] [address] [place] [address] Social History Tobacco Use Types Packs/Day Years Used Date Smoking Tobacco: Never Assessed Comments Unknown Sex and Gender Information Value Date Recorded Sex Assigned at Not on file Legal Sex Female 4:02 AM MANUFACTURER AGENT Gender Identity Not on file Sexual Orientation Not on file documented as of this encounter Plan of Treatment Upcoming Encounters Date Type Department Care Team (Late Contact Info) Description 08/15/2025 1:30 PM MANUFACTURER AGENT Office Visit [facility] Primary Care - Kirby Herrmann [address] [place] [phone] Kassy Jay MD [address] [place] [place] [phone] 09/25/2025 8:30 AM MANUFACTURER AGENT Video Visit [facility] Adult Psychiatry Varinder [address] [address] [place] [phone] Argelia Law NP [address] [address] [place] [address] documented as of this encounter Visit Diagnoses Not on filedocumented in this encounter Additional Health Concerns Infection Onset Date Last Indicated Resolved Time R/O COVID-19 06/02/2021 06/03/2021 06/03/2021 7:34 PM CDT R/O COVID-19 12/22/2022 12/22/2022 12/22/2022 12:2 5 PM CDT R/O COVID-19 09/07/2023 09/07/2023 09/07/2023 9:52 PM MANUFACTURER AGENT documented as of this encounter Care Teams Sushi Chef Relationship Specialty Start Date End Date Kassy Jay MD [address] [place] [phone] PCP - General Family Practice 12/04/22 documented as of this encounter
--- OUTSIDE RECORDS SUMMARY | 2025-08-02 20:13 | XMS_ITS | Encounter Summary ---
Author Organization [facility] Address [address] [place] [address] Care Team Providers Care Transport Operations Inspector Name Role Phone Kassy Jay MD Primary Care Provider [phone] Encounter Details Date Type Department Care Team (Late Contact Info) Description 01/01/[address] [facility] Pediatrics - [facility] [address] [facility] [address] [place] [address] [place] [address] [place] [address] Social History Tobacco Use Types Packs/Day Years Used Date Smoking Tobacco: Never Assessed Comments Unknown Sex and Gender Information Value Date Recorded Sex Assigned at Not on file Legal Sex Female 4:02 AM HOURLY SHIFT MANAGER Gender Identity Not on file Sexual Orientation Not on file documented as of this encounter Plan of Treatment Upcoming Encounters Date Type Department Care Team (Late Contact Info) Description 08/15/2025 1:30 PM HOURLY SHIFT MANAGER Office Visit [facility] Primary Care - Kirby Herr[place] [address] [phone] Kassy Jay MD [address] [place] [address] [place] [phone] 09/25/2025 8:30 AM HOURLY SHIFT MANAGER Video Visit [facility] Adult Psychiatry Varinder [address] [address] [place] [address] Argelia Law NP [address] [address] [place] [address] documented as of this encounter Visit Diagnoses Not on filedocumented in this encounter Additional Health Concerns Infection Onset Date Last Indicated Resolved Time R/O COVID-19 06/02/2021 06/03/2021 06/03/2021 7:34 PM CDT R/O COVID-19 12/22/2022 12/22/2022 12/22/2022 12:2 5 PM CDT R/O COVID-19 09/07/2023 09/07/2023 09/07/2023 9:52 PM HOURLY SHIFT MANAGER documented as of this encounter Care Teams Transport Operations Inspector Relationship Specialty Start Date End Date Kassy Jay MD [address] [place] [address] [phone] PCP - General Family Practice 12/04/22 documented as of this encounter
--- OUTSIDE RECORDS SUMMARY | 2025-08-02 20:13 | XMS_ITS | Encounter Summary ---
Author Organization [facility] Address [address] [place] [address] Care Team Providers Care Punch Out Crew Member Name Role Phone Kassy Jay MD Primary Care Provider [phone] Encounter Details Date Type Department Care Team (Late Contact Info) Description 1998 Outpatient [address] [facility] MA[facility]ICIO Yadav, Alley Cid MD [address] [place] [address] Social History Tobacco Use Types Packs/Day Years Used Date Smoking Tobacco: Never Assessed Comments Unknown Sex and Gender Information Value Date Recorded Sex Assigned at Not on file Legal Sex Female 4:02 AM INSTRUCTOR MODELING Gender Identity Not on file Sexual Orientation Not on file documented as of this encounter Plan of Treatment Upcoming Encounters Date Type Department Care Team (Late Contact Info) Description 08/15/2025 1:30 PM INSTRUCTOR MODELING Office Visit [facility] Primary Care - Kirby Herrmann [address] [phone] Kassy Jay MD [address] [phone] 09/25/2025 8:30 AM INSTRUCTOR MODELING Video Visit [facility] Adult Psychiatry [address] [address] [place] [phone] Argelia Law, [place] [address] [address] [place] [address] documented as of this encounter Visit Diagnoses Not on filedocumented in this encounter Additional Health Concerns Infection Onset Date Last Indicated Resolved Time R/O COVID-19 06/02/2021 06/03/2021 06/03/2021 7:34 PM CDT R/O COVID-19 12/22/2022 12/22/2022 12/22/2022 12:2 5 PM CDT R/O COVID-19 09/07/2023 09/07/2023 09/07/2023 9:52 PM INSTRUCTOR MODELING documented as of this encounter Care Teams Punch Out Crew Member Relationship Specialty Start Date End Date Kassy Jay MD [address] [phone] PCP - General Family Practice 12/04/22 documented as of this encounter
--- OUTSIDE RECORDS SUMMARY | 2025-08-02 20:13 | XMS_ITS | Encounter Summary ---
Author Organization [facility] Address [address] [place] [address] Care Team Providers Care Manager Video Name Role Phone Kassy Jay MD Primary Care Provider [phone] Encounter Details Date Type Department Care Team (Late st Contact Info) Description 01/21/2006 Orders Only [facility] Pediatrics - [facility] [address] [facility] [address] [place] [address] [place] [address] [facility] [address] [place] [address] Social History Tobacco Use Types Packs/Day Years Used Date Smoking Tobacco: Never Assessed Comments Unknown Sex and Gender Information Value Date Recorded Sex Assigned at Not on file Legal Sex Female 4:02 AM HUB INVENTORY SPECIALIST Gender Identity Not on file Sexual [...] NEW PRESCRIPTION, 01/21/2006. LAB ORDERS: Order number: [id number] Test Ordered: RAPID STREP [id number] RETURN VISIT/GUIDANCE: Instructed to:Take OTC meds as directed Call office if concerned or if child is no better Return if symptoms are not resolved. Electronically Signed by: Lacie Malik M.D. on Saturday, January 21, 2006 documented in this encounter Plan of Treatment Upcoming Encounters Date Type Department Care Team (Late st Contact Info) Description 08/15/2025 1:30 PM HUB INVENTORY SPECIALIST Office Visit [facility] Primary Care - Kirby Herrmann [address] [place] [address] [phone] Kassy Jay MD [address] [place] [address] [phone] 09/25/2025 8:30 AM HUB INVENTORY SPECIALIST Video Visit [facility] Adult Psychiatry [place] [address] [place] [address] Argelia Law NP [address] [place] [address] documented as of this encounter Visit Diagnoses Not on filedocumented in this encounter Additional Health Concerns Infection Onset Date Last Indicated Resolved Time R/O COVID-19 06/02/2021 06/03/2021 06/03/2021 7:34 PM CDT R/O COVID-19 12/22/2022 12/22/2022 12/22/2022 12:2 5 PM CDT R/O COVID-19 09/07/2023 09/07/2023 09/07/2023 9:52 PM HUB INVENTORY SPECIALIST documented as of this encounter Care Teams Manager Video Relationship Specialty Start Date End Date Kassy Jay MD [address] [place] [phone] PCP - General Family Practice 12/04/22 documented as of this encounter
--- OUTSIDE RECORDS SUMMARY | 2025-08-02 20:13 | XMS_ITS | Encounter Summary ---
Author Organization [facility] Address [address] [place] [address] Care Team Providers Care It Support Specialist Name Role Phone Kassy Jay MD Primary Care Provider [phone] Encounter Details Date Type Department Care Team (Late Contact Info) Description 01/01/2006 Outpatient Historical [facility] [address] [facility] [address] [address] Gustavo Sims Social History Tobacco Use Types Packs/Day Years Used Date Smoking Tobacco: Never Assessed Comments Unknown Sex and Gender Information Value Date Recorded Sex Assigned at Not on file Legal Sex Female 4:[address] Gender Identity Not on file Sexual Orientation Not on file documented as of this encounter Plan of Treatment Upcoming Encounters Date Type Department Care Team (Late Contact Info) Description 08/15/2025 1:[address] Office Visit [facility] [place] [phone] Kassy Jay MD [address] [place] [phone] 09/25/2025 8:[address] Video Visit [facility] Adult Psychiatry [address] [address] [address] [phone] [place], Argelia Lopez NP [address] [address] [place] [address] documented as of this encounter Visit Diagnoses Not on filedocumented in this encounter Additional Health Concerns Infection Onset Date Last Indicated Resolved Time R/O COVID-19 06/02/2021 06/03/2021 06/03/2021 7:34 PM CDT R/O COVID-19 12/22/2022 12/22/2022 12/22/2022 12:2 5 PM CDT R/O COVID-19 09/07/2023 09/07/2023 09/07/2023 9:[address] documented as of this encounter Care Teams It Support Specialist Relationship Specialty Start Date End Date Kassy Jay MD [address] [facility] [place] [phone] PCP - General Family Practice 12/04/22 documented as of this encounter
--- OUTSIDE RECORDS SUMMARY | 2025-08-02 20:13 | XMS_ITS | Encounter Summary ---
Author Organization [facility] Address [address] [place] [address] Care Team Providers Care Hardwood Floor Installer Name Role Phone Kassy Jay MD Primary Care Provider Encounter Details Date Type Department Care Team (Late Contact Info) Description 08/06/1999 Outpatient Historical [facility] Pediatrics - [facility] [address] [facility] [address] [place] [address] Darren Tabor MD NO ADDRESS ON FILE Social History Tobacco Use Types Packs/Day Years Used Date Smoking Tobacco: Never Assessed Comments Unknown Sex and Gender Information Value Date Recorded Sex Assigned at Not on file Legal Sex Female 4:02 AM FLOOR COVERINGS INSTALLER Gender Identity Not on file Sexual Orientation Not on file documented as of this encounter Plan of Treatment Upcoming Encounters Date Type Department Care Team (Late Contact Info) Description 08/15/2025 1:30 PM FLOOR COVERINGS INSTALLER Office Visit [facility] Primary Care - Kirby Herrmann [address] [phone] Kassy Jay MD [address] [place] [address] [phone] 09/25/2025 8:30 AM FLOOR COVERINGS INSTALLER Video Visit [facility] [address] Psychiatry [address] [phone] Argelia Law, [place] [address] [address] [place] [address] documented as of this encounter Visit Diagnoses Not on filedocumented in this encounter Additional Health Concerns Infection Onset Date Last Indicated Resolved Time R/O COVID-19 06/02/2021 06/03/2021 06/03/2021 7:34 PM CDT R/O COVID-19 12/22/2022 12/22/2022 12/22/2022 12:2 5 PM CDT R/O COVID-19 09/07/2023 09/07/2023 09/07/2023 9:52 PM FLOOR COVERINGS INSTALLER documented as of this encounter Care Teams Hardwood Floor Installer Relationship Specialty Start Date End Date Kassy Jay MD [address] [phone] PCP - General Family Practice 12/04/22 documented as of this encounter
--- OUTSIDE RECORDS SUMMARY | 2025-08-02 20:13 | XMS_ITS | Encounter Summary ---
Author Organization [facility] Address [address] [place] [address] Care Team Providers Care Auricular Acupuncturist Name Role Phone Kassy Jay MD Primary Care Provider Encounter Details Date Type Department Care Team (Late Contact Info) Description 02/03/2001 Outpatient Historical [facility] Pediatrics - [facility] [address] [facility] [address] [place] [address] [place] [address] [address] [place] [address] Social History Tobacco Use Types Packs/Day Years Used Date Smoking Tobacco: Never Assessed Comments Unknown Sex and Gender Information Value Date Recorded Sex Assigned at Not on file Legal Sex Female 4:02 AM TECHNICAL LEAD Gender Identity Not on file Sexual Orientation Not on file documented as of this encounter Plan of Treatment Upcoming Encounters Date Type Department Care Team (Late Contact Info) Description 08/15/2025 1:30 PM TECHNICAL LEAD Office Visit [facility] Primary Care - Kirby Herrmann [address] [phone] Kassy Jay MD [address] [phone] 09/25/2025 8:30 AM TECHNICAL LEAD Video Visit [facility] Adult Psychiatry Varinder [address] [address] [place] [phone] Argelia Law NP [address] [address] [place] [address] documented as of this encounter Visit Diagnoses Not on filedocumented in this encounter Additional Health Concerns Infection Onset Date Last Indicated Resolved Time R/O COVID-19 06/02/2021 06/03/2021 06/03/2021 7:34 PM CDT R/O COVID-19 12/22/2022 12/22/2022 12/22/2022 12:2 5 PM CDT R/O COVID-19 09/07/2023 09/07/2023 09/07/2023 9:52 PM TECHNICAL LEAD documented as of this encounter Care Teams Auricular Acupuncturist Relationship Specialty Start Date End Date Kassy Jay MD [address] [place] [address] [address] [phone] PCP - General Family Practice 12/04/22 documented as of this encounter
--- OUTSIDE RECORDS SUMMARY | 2025-08-02 20:13 | XMS_ITS | Encounter Summary ---
Author Organization [facility] Address [address] [place] [address] Care Team Providers Care Director Of Logistics Name Role Phone Kassy Jay MD Primary Care Provider [phone] Encounter Details Date Type Department Care Team ([facility] Contact Info) Description 07/29/[address] [facility] Pediatrics - [facility] [address] [facility] [address] [place] [address] [place] [address] [facility] [address] [place] [address] Social History Tobacco Use Types Packs/Day Years Used Date Smoking Tobacco: Never Assessed Comments Unknown Sex and Gender Information Value Date Recorded Sex Assigned at Not on file Legal Sex Female 4:02 AM MAIL COURIER Gender Identity Not on file Sexual Orientation Not on file documented as of this encounter Last Filed Vital Signs Vital Sign Reading Time Taken Comments Blood Pressure - - Pulse 64 07/29/2005 3:45 PM MAIL COURIER Temperature 37.1 C (98.7 F) 07/29/2005 3:45 PM MAIL COURIER Respiratory Rate 32 07/29/2005 3:45 PM MAIL COURIER Oxygen Saturation - - Inhaled Oxygen Concentration - - Weight 25.2 kg (55 lb 8 oz) 07/29/2005 3:[address] Height - - Body Mass Index - - documented in this encounter Plan of Treatment Upcoming Encounters Date Type Department Care Team (Late Contact Info) Description 08/15/2025 1:30 PM MAIL COURIER Office Visit [facility] Primary Care - Kirby Herrmann [address] [place] [address] [phone] Kassy Jay MD [address] [phone] 09/25/2025 8:30 AM MAIL COURIER Video Visit [facility] Adult Psychiatry Varinder [address] [address] [place] [address] Argelia Lwa NP [address] [address] [place] [address] documented as of this encounter Visit Diagnoses Not on filedocumented in this encounter Additional Health Concerns Infection Onset Date Last Indicated Resolved Time R/O COVID-19 06/02/2021 06/03/2021 06/03/2021 7:34 PM CDT R/O COVID-19 12/22/2022 12/22/2022 12/22/2022 12:2 5 PM CDT R/O COVID-19 09/07/2023 09/07/2023 09/07/2023 9:52 PM MAIL COURIER documented as of this encounter Care Teams Director Of Logistics Relationship Specialty Start Date End Date Kassy Jay MD [address] [place] [phone] PCP - General Family Practice 12/04/22 documented as of this encounter
--- OUTSIDE RECORDS SUMMARY | 2025-08-02 20:13 | XMS_ITS | Encounter Summary ---
Author Organization [facility] Address [address] [place] [address] Care Team Providers Care Client Account Assistant Name Role Phone Kassy Jay MD Primary Care Provider Encounter Details Date Type Department Care Team (Late Contact Info) Description 1998 Outpatient Historical [facility] Pediatrics - [facility] [address] [facility] [address] [place] [address] Darren Tabor MD NO ADDRESS ON FILE Social History Tobacco Use Types Packs/Day Years Used Date Smoking Tobacco: Never Assessed Comments Unknown Sex and Gender Information Value Date Recorded Sex Assigned at Not on file Legal Sex Female 4:02 AM COOK PICKLED MEAT Gender Identity Not on file Sexual Orientation Not on file documented as of this encounter Plan of Treatment Upcoming Encounters Date Type Department Care Team (Late Contact Info) Description 08/15/2025 1:30 PM COOK PICKLED MEAT Office Visit [facility] Primary Care - Kirby Herrmann [address] [phone] Kassy Jay MD [address] [address] [phone] 09/25/2025 8:30 AM COOK PICKLED MEAT Video Visit [facility] Adult Psychiatry [address] [phone] Argelia Law, [place] [address] [address] [place] [address] documented as of this encounter Visit Diagnoses Not on filedocumented in this encounter Additional Health Concerns Infection Onset Date Last Indicated Resolved Time R/O COVID-19 06/02/2021 06/03/2021 06/03/2021 7:34 PM CDT R/O COVID-19 12/22/2022 12/22/2022 12/22/2022 12:2 5 PM CDT R/O COVID-19 09/07/2023 09/07/2023 09/07/2023 9:52 PM COOK PICKLED MEAT documented as of this encounter Care Teams Client Account Assistant Relationship Specialty Start Date End Date Kassy Jay MD [address] [phone] PCP - General Family Practice 12/04/22 documented as of this encounter
--- OUTSIDE RECORDS SUMMARY | 2025-08-02 20:13 | XMS_ITS | Encounter Summary ---
Author Organization [facility] Address [address] [place] [address] Care Team Providers Care Director Of Managed Care Name Role Phone Kassy Jay MD Primary Care Provider [phone] Encounter Details Date Type Department Care Team (Late Contact Info) Description 07/18/2005 Outpatient Historical [facility] Pediatrics - [facility] [address] [facility] [address] [place] [address] [place] [address] [place] [address] Social History Tobacco Use Types Packs/Day Years Used Date Smoking Tobacco: Never Assessed Comments Unknown Sex and Gender Information Value Date Recorded Sex Assigned at Not on file Legal Sex Female 4:02 AM SUPERVISOR FIREARMS Gender Identity Not on file Sexual Orientation Not on file documented as of this encounter Plan of Treatment Upcoming Encounters Date Type Department Care Team (Late Contact Info) Description 08/15/2025 1:30 PM SUPERVISOR FIREARMS Office Visit [facility] Primary Care - Kirby Herrmann [address] [address] [phone] Kassy Jay MD [address] [address] [phone] 09/25/2025 8:30 AM SUPERVISOR FIREARMS Video Visit [facility] Adult Psychiatry Varinder [address] [address] [place] [phone] Argelia Law NP [address] [address] [place] [address] documented as of this encounter Visit Diagnoses Not on filedocumented in this encounter Additional Health Concerns Infection Onset Date Last Indicated Resolved Time R/O COVID-19 06/02/2021 06/03/2021 06/03/2021 7:34 PM CDT R/O COVID-19 12/22/2022 12/22/2022 12/22/2022 12:2 5 PM CDT R/O COVID-19 09/07/2023 09/07/2023 09/07/2023 9:52 PM SUPERVISOR FIREARMS documented as of this encounter Care Teams Director Of Managed Care Relationship Specialty Start Date End Date Kassy Jay MD [address] [place] [address] [phone] PCP - General Family Practice 12/04/22 documented as of this encounter
--- OUTSIDE RECORDS SUMMARY | 2025-08-02 20:13 | XMS_ITS | Encounter Summary ---
Author Organization [facility] Address [address] [place] [address] Care Team Providers Care Medical Billing And Coding Specialist Name Role Phone Kassy Jay MD Primary Care Provider [phone] Encounter Details Date Type Department Care Team [...] Never 02/09/2020 How often do you attend christian or congregational serv ices? 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 Not on file Not on file Not on file documented as of this encounter Plan of Treatment Upcoming Encounters Date Type Department Care Team (Late st Contact Info) Description 08/15/2025 1:30 PM LIQUEFACTION SUPERVISOR Office Visit [facility] Primary Care - Kirby Herrmann [address] [place] [address] [phone] Kassy Jay MD [address] [place] [phone] 09/25/2025 8:30 AM LIQUEFACTION SUPERVISOR Video Visit [facility] Adult Psychiatry Varinder [address] [address] [place] [address] Argelia Law NP [address] [place] [address] documented as of this encounter Visit Diagnoses Not on filedocumented in this encounter Care Teams Medical Billing And Coding Specialist Relationship Specialty Start Date End Date Kassy Jay MD [address] [phone] PCP - General Family Practice 12/04/22 documented as of this encounter
--- OUTSIDE RECORDS SUMMARY | 2025-08-02 20:13 | XMS_ITS | Encounter Summary ---
Author Organization [facility] Address [address] [place] [address] Care Team Providers Care Treasury Analyst Name Role Phone Kassy Jay MD Primary Care Provider [phone] Encounter Details Date Type Department Care Team (Late Contact Info) Description 1998 Outpatient Historical [facility] Pediatrics - [facility] [address] [facility] [address] [place] [address] Darren Tabor MD NO ADDRESS ON FILE Social History Tobacco Use Types Packs/Day Years Used Date Smoking Tobacco: Never Assessed Comments Unknown Sex and Gender Information Value Date Recorded Sex Assigned at Not on file Legal Sex Female 4:02 AM COLLECTIONS PROFESSIONAL Gender Identity Not on file Sexual Orientation Not on file documented as of this encounter Plan of Treatment Upcoming Encounters Date Type Department Care Team (Late Contact Info) Description 08/15/2025 1:30 PM COLLECTIONS PROFESSIONAL Office Visit [facility] Primary Care - Kirby Herrmann [address] [phone] Kassy Jay MD [address] [place] [phone] 09/25/2025 8:30 AM COLLECTIONS PROFESSIONAL Video Visit [facility] Adult Psychiatry [address] [phone] Argelia Law, [place] [address] [address] [place] [address] documented as of this encounter Visit Diagnoses Not on filedocumented in this encounter Additional Health Concerns Infection Onset Date Last Indicated Resolved Time R/O COVID-19 06/02/2021 06/03/2021 06/03/2021 7:34 PM CDT R/O COVID-19 12/22/2022 12/22/2022 12/22/2022 12:2 5 PM CDT R/O COVID-19 09/07/2023 09/07/2023 09/07/2023 9:52 PM COLLECTIONS PROFESSIONAL documented as of this encounter Care Teams Treasury Analyst Relationship Specialty Start Date End Date Kassy Jay MD [address] [phone] PCP - General Family Practice 12/04/22 documented as of this encounter
--- OUTSIDE RECORDS SUMMARY | 2025-08-02 20:13 | XMS_ITS | Encounter Summary ---
Author Organization [facility] Address [address] [place] [address] Care Team Providers Care Manager Port Name Role Phone Kassy Jay MD Primary Care Provider [phone] Encounter Details Date Type Department Care Team (Late st Contact Info) Description 08/11/2007 Orders Only [facility] Pediatrics - [facility] [address] [place] [address] [place] [address] [facility] [address] [place] [address] Social History Tobacco Use Types Packs/Day Years Used Date Smoking Tobacco: Never Assessed Comments Unknown Sex and Gender Information Value Date Recorded Sex Assigned at Not on file Legal Sex Female 4:02 AM MATERIAL MANAGER Gender Identity Not on file Sexual [...] Contact Info) Description 08/15/2025 1:30 PM MATERIAL MANAGER Office Visit [facility] Primary Care - Kirby Herrmann [address] [place] [address] [address] Kassy Jay MD [address] [place] [address] 09/25/2025 8:30 AM MATERIAL MANAGER Video Visit [facility] Adult Psychiatry [place] [address] [address] [place] [address] Argelia Law NP [address] [address] [place] [address] documented as of this encounter Visit Diagnoses Not on filedocumented in this encounter Additional Health Concerns Infection Onset Date Last Indicated Resolved Time R/O COVID-19 06/02/2021 06/03/2021 06/03/2021 7:34 PM CDT R/O COVID-19 12/22/2022 12/22/2022 12/22/2022 12:2 5 PM CDT R/O COVID-19 09/07/2023 09/07/2023 09/07/2023 9:52 PM MATERIAL MANAGER documented as of this encounter Care Teams Manager Port Relationship Specialty Start Date End Date Kassy Jay MD [address] [place] [address] [address] PCP - General Family Practice 12/04/22 documented as of this encounter
--- OUTSIDE RECORDS SUMMARY | 2025-08-02 20:13 | XMS_ITS | Encounter Summary ---
Author Organization [facility] Address [address] [place] [address] Care Team Providers Care Trim Carpenter Name Role Phone Kassy Jay MD Primary Care Provider [phone] Encounter Details Date Type Department Care Team (Late Contact Info) Description 12/06/2007 Outpatient Historical [facility] Pediatrics - [facility] [address] [facility] [address] [address] [place] [address] [place] [address] [place] [address] Social History Tobacco Use Types Packs/Day Years Used Date Smoking Tobacco: Never Assessed Comments Unknown Sex and Gender Information Value Date Recorded Sex Assigned at Not on file Legal Sex Female 4:02 AM STITCH BURNISHER Gender Identity Not on file Sexual Orientation Not on file documented as of this encounter Plan of Treatment Upcoming Encounters Date Type Department Care Team (Late Contact Info) Description 08/15/2025 1:30 PM STITCH BURNISHER Office Visit [facility] Primary Care - Kirby Herrmann [address] [place] [address] [phone] Kassy Jay MD [address] [place] [phone] 09/25/2025 8:30 AM STITCH BURNISHER Video Visit [facility] Adult Psychiatry [place] [address] [address] [address] [phone] Argelia Law NP [address] [address] [place] [address] documented as of this encounter Visit Diagnoses Not on filedocumented in this encounter Additional Health Concerns Infection Onset Date Last Indicated Resolved Time R/O COVID-19 06/02/2021 06/03/2021 06/03/2021 7:34 PM CDT R/O COVID-19 12/22/2022 12/22/2022 12/22/2022 12:2 5 PM CDT R/O COVID-19 09/07/2023 09/07/2023 09/07/2023 9:52 PM STITCH BURNISHER documented as of this encounter Care Teams Trim Carpenter Relationship Specialty Start Date End Date Kassy Jay MD [address] [place] [address] PCP - General Family Practice 12/04/22 documented as of this encounter
--- OUTSIDE RECORDS SUMMARY | 2025-08-02 20:13 | XMS_ITS | Encounter Summary ---
Author Organization [facility] Address [address] [place] [address] Care Team Providers Care Tape Recorder Repairer Name Role Phone Kassy Jay MD Primary Care Provider [phone] Encounter Details Date Type Department Care Team (Late Contact Info) Description 09/04/2005 Outpatient Historical [facility] Childrens Respiratory and Sleep Medicine [address] [facility] [address] [address] Gustavo Sims Social History Tobacco Use Types Packs/Day Years Used Date Smoking Tobacco: Never Assessed Comments Unknown Sex and Gender Information Value Date Recorded Sex Assigned at Not on file Legal Sex Female 4:02 AM MIXER AND SCALER Gender Identity Not on file Sexual Orientation Not on file documented as of this encounter Plan of Treatment Upcoming Encounters Date Type Department Care Team (Late Contact Info) Description 08/15/2025 1:30 PM MIXER AND SCALER Office Visit [facility] Primary [place] [address] [place] [phone] Kassy Jay MD [address] [place] [address] 09/25/2025 8:30 AM MIXER AND SCALER Video Visit [facility] Adult Psychiatry [place] [address] [address] [phone] [place], Argelia Lopez NP [address] [address] [place] [address] documented as of this encounter Visit Diagnoses Not on filedocumented in this encounter Additional Health Concerns Infection Onset Date Last Indicated Resolved Time R/O COVID-19 06/02/2021 06/03/2021 06/03/2021 7:34 PM CDT R/O COVID-19 12/22/2022 12/22/2022 12/22/2022 12:2 5 PM CDT R/O COVID-19 09/07/2023 09/07/2023 09/07/2023 9:52 PM MIXER AND SCALER documented as of this encounter Care Teams Tape Recorder Repairer Relationship Specialty Start Date End Date Kassy Jay MD [address] [facility] [address] [address] PCP - General Family Practice 12/04/22 documented as of this encounter
--- OUTSIDE RECORDS SUMMARY | 2025-08-02 20:13 | XMS_ITS | Encounter Summary ---
Author Organization [facility] Address [address] [place] [address] Care Team Providers Care Tufter Hand Name Role Phone Kassy Jay MD Primary Care Provider Encounter Details Date Type Department Care Team (Late Contact Info) Description 02/11/1999 Outpatient Historical [facility] Pediatrics - [facility] [address] [facility] [address] [place] [address] Darren Tabor MD NO ADDRESS ON FILE Social History Tobacco Use Types Packs/Day Years Used Date Smoking Tobacco: Never Assessed Comments Unknown Sex and Gender Information Value Date Recorded Sex Assigned at Not on file Legal Sex Female 4:02 AM CONTROL OFFICER MANAGER Gender Identity Not on file Sexual Orientation Not on file documented as of this encounter Plan of Treatment Upcoming Encounters Date Type Department Care Team (Late Contact Info) Description 08/15/2025 1:30 PM CONTROL OFFICER MANAGER Office Visit [facility] Primary Care - Kirby Herrmann [address] [place] [address] [phone] Kassy Jay MD [address] [place] [address] [phone] 09/25/2025 8:30 AM CONTROL OFFICER MANAGER Video Visit [facility] [address] Psychiatry [address] [phone] Argelia Law, [place] [address] [address] [place] [address] documented as of this encounter Visit Diagnoses Not on filedocumented in this encounter Additional Health Concerns Infection Onset Date Last Indicated Resolved Time R/O COVID-19 06/02/2021 06/03/2021 06/03/2021 7:34 PM CDT R/O COVID-19 12/22/2022 12/22/2022 12/22/2022 12:2 5 PM CDT R/O COVID-19 09/07/2023 09/07/2023 09/07/2023 9:52 PM CONTROL OFFICER MANAGER documented as of this encounter Care Teams Tufter Hand Relationship Specialty Start Date End Date Kassy Jay MD [address] [phone] PCP - General Family Practice 12/04/22 documented as of this encounter
--- OUTSIDE RECORDS SUMMARY | 2025-08-02 20:13 | XMS_ITS | Encounter Summary ---
Author Organization [facility] Address [address] [place] [address] Care Team Providers Care Magento Web Developer Name Role Phone Kassy Jay MD Primary Care Provider Encounter Details Date Type Department Care Team (Late st Contact Info) Description 09/11/2006 Orders Only [facility] Pediatrics - [facility] [address] [facility] [address] [address] [place] [address] [place] [address] [facility] [address] [place] [address] Social History Tobacco Use Types Packs/Day Years Used Date Smoking Tobacco: Never Assessed Comments Unknown Sex and Gender Information Value Date Recorded Sex Assigned at Not on file Legal Sex Female 4:02 AM COMMERCIAL SEWING INSTRUCTOR Gender Identity Not on file Sexual Orientation Not on file documented as of this encounter Progress Notes * Lacie Malik MD - 07/05/2008 4:31 AM CDT PATIENT'S AGE: 6 yrs, 6 mths, 2 wks, 1 day VITALS: TEMP: 98??f Oral PULSE: 88 Apical, Regular RESPIRATIONS: 20. WEIGHT: [id number] NURSE NAME: Jesusita Williamson L ACCOMPANIED BY: [...] st Contact Info) Description 08/15/2025 1:30 PM COMMERCIAL SEWING INSTRUCTOR Office Visit [facility] Primary Care - Kirby Herrmann [address] [place] [address] [address] Kassy Jay MD [address] [phone] 09/25/2025 8:30 AM COMMERCIAL SEWING INSTRUCTOR Video Visit [facility] Adult Psychiatry [place] [address] [address] [place] [address] Argelia Law NP [address] [id number] documented as of this encounter Visit Diagnoses Not on filedocumented in this encounter Additional Health Concerns Infection Onset Date Last Indicated Resolved Time R/O COVID-19 06/02/2021 06/03/2021 06/03/2021 7:34 PM CDT R/O COVID-19 12/22/2022 12/22/2022 12/22/2022 12:2 5 PM CDT R/O COVID-19 09/07/2023 09/07/2023 09/07/2023 9:52 PM COMMERCIAL SEWING INSTRUCTOR documented as of this encounter Care Teams Magento Web Developer Relationship Specialty Start Date End Date Kassy Jay MD [address] [place] [phone] PCP - General Family Practice 12/04/22 documented as of this encounter
--- OUTSIDE RECORDS SUMMARY | 2025-08-02 20:13 | XMS_ITS | Encounter Summary ---
Author Organization [facility] Address [address] [place] [address] Care Team Providers Care Review Nurse Name Role Phone Kassy Jay MD Primary Care Provider [phone] Encounter Details Date Type Department Care Team (Late Contact Info) Description 01/01/2006 Outpatient Historical [facility] Childrens Respiratory and Sleep Medicine [address] [facility] [address] [address] Gustavo Sims Social History Tobacco Use Types Packs/Day Years Used Date Smoking Tobacco: Never Assessed Comments Unknown Sex and Gender Information Value Date Recorded Sex Assigned at Not on file Legal Sex Female 4:02 AM PALLIATIVE NURSE Gender Identity Not on file Sexual Orientation Not on file documented as of this encounter Plan of Treatment Upcoming Encounters Date Type Department Care Team (Late Contact Info) Description 08/15/2025 1:30 PM PALLIATIVE NURSE Office Visit [facility] Primary [place] [address] [place] [phone] Kassy Jay MD [address] [place] [address] 09/25/2025 8:30 AM PALLIATIVE NURSE Video Visit [facility] Adult Psychiatry [address] [address] [address] [phone] [place], Argelia Lopez NP [address] [address] [address] [address] documented as of this encounter Visit Diagnoses Not on filedocumented in this encounter Additional Health Concerns Infection Onset Date Last Indicated Resolved Time R/O COVID-19 06/02/2021 06/03/2021 06/03/2021 7:34 PM CDT R/O COVID-19 12/22/2022 12/22/2022 12/22/2022 12:2 5 PM CDT R/O COVID-19 09/07/2023 09/07/2023 09/07/2023 9:52 PM PALLIATIVE NURSE documented as of this encounter Care Teams Review Nurse Relationship Specialty Start Date End Date Kassy Jay MD [address] [facility] [address] [place] [phone] PCP - General Family Practice 12/04/22 documented as of this encounter
--- OUTSIDE RECORDS SUMMARY | 2025-08-02 20:13 | XMS_ITS | Encounter Summary ---
Author Organization [facility] Address [address] [place] [address] Care Team Providers Care Forepart Laster Name Role Phone Kassy Jay MD Primary Care Provider [phone] Encounter Details Date Type Department Care Team (Late Contact Info) Description 07/21/2005 Outpatient Historical [facility] Pediatrics - [facility] [address] [facility] [address] [place] [address] [place] [address] [facility] [facility] [address] [place] [address] Social History Tobacco Use Types Packs/Day Years Used Date Smoking Tobacco: Never Assessed Comments Unknown Sex and Gender Information Value Date Recorded Sex Assigned at Not on file Legal Sex Female 4:02 AM PHARMACY TECHNICIAN PROGRAM DIRECTOR Gender Identity Not on file Sexual Orientation Not on file documented as of this encounter Plan of Treatment Upcoming Encounters Date Type Department Care Team (Late Contact Info) Description 08/15/2025 1:30 PM PHARMACY TECHNICIAN PROGRAM DIRECTOR Office Visit [facility] Primary Care - Kirby Herrmann [address] [place] [phone] Kassy Jay MD [address] [place] [place] [phone] 09/25/2025 8:30 AM PHARMACY TECHNICIAN PROGRAM DIRECTOR Video Visit [facility] Adult Psychiatry [place] [address] [address] [address] [phone] Argelia Law NP [address] [address] [address] [address] documented as of this encounter Visit Diagnoses Not on filedocumented in this encounter Additional Health Concerns Infection Onset Date Last Indicated Resolved Time R/O COVID-19 06/02/2021 06/03/2021 06/03/2021 7:34 PM CDT R/O COVID-19 12/22/2022 12/22/2022 12/22/2022 12:2 5 PM CDT R/O COVID-19 09/07/2023 09/07/2023 09/07/2023 9:52 PM PHARMACY TECHNICIAN PROGRAM DIRECTOR documented as of this encounter Care Teams Forepart Laster Relationship Specialty Start Date End Date Kassy Jay MD [address] [place] [address] [phone] PCP - General Family Practice 12/04/22 documented as of this encounter
--- OUTSIDE RECORDS SUMMARY | 2025-08-02 20:13 | XMS_ITS | Encounter Summary ---
Author Organization [facility] Address [address] [place] [address] Care Team Providers Care Embedded Firmware Developer Name Role Phone Kassy Jay MD Primary Care Provider [phone] Encounter Details Date Type Department Care Team (Late Contact Info) Description 1998 Outpatient Historical [facility] Pediatrics - [facility] [address] [facility] [address] [place] [address] Darren Tabor MD NO ADDRESS ON FILE Social History Tobacco Use Types Packs/Day Years Used Date Smoking Tobacco: Never Assessed Comments Unknown Sex and Gender Information Value Date Recorded Sex Assigned at Not on file Legal Sex Female 4:02 AM SOFTWARE QUALITY ASSURANCE ENGINEER Gender Identity Not on file Sexual Orientation Not on file documented as of this encounter Plan of Treatment Upcoming Encounters Date Type Department Care Team (Late Contact Info) Description 08/15/2025 1:30 PM SOFTWARE QUALITY ASSURANCE ENGINEER Office Visit [facility] Primary Care - Kirby Herrmann [address] [phone] Kassy Jay MD [address] [place] [address] [phone] 09/25/2025 8:30 AM SOFTWARE QUALITY ASSURANCE ENGINEER Video Visit [facility] Adult Psychiatry [address] [phone] Argelia Lwa, [place] [address] [address] [place] [address] documented as of this encounter Visit Diagnoses Not on filedocumented in this encounter Additional Health Concerns Infection Onset Date Last Indicated Resolved Time R/O COVID-19 06/02/2021 06/03/2021 06/03/2021 7:34 PM CDT R/O COVID-19 12/22/2022 12/22/2022 12/22/2022 12:2 5 PM CDT R/O COVID-19 09/07/2023 09/07/2023 09/07/2023 9:52 PM SOFTWARE QUALITY ASSURANCE ENGINEER documented as of this encounter Care Teams Embedded Firmware Developer Relationship Specialty Start Date End Date Kassy Jay MD [address] [phone] PCP - General Family Practice 12/04/22 documented as of this encounter
--- OUTSIDE RECORDS SUMMARY | 2025-08-02 20:13 | XMS_ITS | Encounter Summary ---
Author Organization [facility] Address [address] [place] [address] Care Team Providers Care Knitting Machine Mechanic Name Role Phone Kassy Jay MD Primary Care Provider [phone] Encounter Details Date Type Department Care Team (Late Contact Info) Description 01/21/2006 Outpatient Historical [facility] Pediatrics - [facility] [address] [facility] [facility] [address] [place] [address] [place] [address] [facility] [address] [place] [address] Social History Tobacco Use Types Packs/Day Years Used Date Smoking Tobacco: Never Assessed Comments Unknown Sex and Gender Information Value Date Recorded Sex Assigned at Not on file Legal Sex Female 4:02 AM SPRING SETTER Gender Identity Not on file Sexual Orientation Not on file documented as of this encounter Plan of Treatment Upcoming Encounters Date Type Department Care Team (Late Contact Info) Description 08/15/2025 1:30 PM SPRING SETTER Office Visit [facility] Primary Care - Kirby Herrmann [address] [place] [address] [address] [phone] Kassy Jay MD [address] [phone] 09/25/2025 8:30 AM SPRING SETTER Video Visit [facility] Adult Psychiatry [place] [address] [address] [place] [phone] Argelia Law NP [address] [address] [place] [address] [address] documented as of this encounter Visit Diagnoses Not on filedocumented in this encounter Additional Health Concerns Infection Onset Date Last Indicated Resolved Time R/O COVID-19 06/02/2021 06/03/2021 06/03/2021 7:34 PM CDT R/O COVID-19 12/22/2022 12/22/2022 12/22/2022 12:2 5 PM CDT R/O COVID-19 09/07/2023 09/07/2023 09/07/2023 9:52 PM SPRING SETTER documented as of this encounter Care Teams Knitting Machine Mechanic Relationship Specialty Start Date End Date Kassy Jay MD [address] [place] [address] [phone] PCP - General Family Practice 12/04/22 documented as of this encounter
--- OUTSIDE RECORDS SUMMARY | 2025-08-02 20:13 | XMS_ITS | Encounter Summary ---
Author Organization [facility] Address [address] [place] [address] Care Team Providers Care Candy Maker Name Role Phone Kassy Jay MD Primary Care Provider [phone] Encounter Details Date Type Department Care Team (Late Contact Info) Description 11/23/2000 Outpatient Historical [facility] Pediatrics - [facility] [address] [address] [facility] [address] [place] [address] [place] [address] [facility] [address] [place] [address] Social History Tobacco Use Types Packs/Day Years Used Date Smoking Tobacco: Never Assessed Comments Unknown Sex and Gender Information Value Date Recorded Sex Assigned at Not on file Legal Sex Female 4:02 AM CIRCUIT WALKER Gender Identity Not on file Sexual Orientation Not on file documented as of this encounter Plan of Treatment Upcoming Encounters Date Type Department Care Team (Late Contact Info) Description 08/15/2025 1:30 PM CIRCUIT WALKER Office Visit [facility] Primary Care - Kirby Herrmann [address] [place] [address] [phone] Kassy Jay MD [address] [address] [phone] 09/25/2025 8:30 AM CIRCUIT WALKER Video Visit [facility] Adult Psychiatry [place] [address] [address] [address] [phone] Argelia Law NP [address] [address] [address] [address] [address] documented as of this encounter Visit Diagnoses Not on filedocumented in this encounter Additional Health Concerns Infection Onset Date Last Indicated Resolved Time R/O COVID-19 06/02/2021 06/03/2021 06/03/2021 7:34 PM CDT R/O COVID-19 12/22/2022 12/22/2022 12/22/2022 12:2 5 PM CDT R/O COVID-19 09/07/2023 09/07/2023 09/07/2023 9:52 PM CIRCUIT WALKER documented as of this encounter Care Teams Candy Maker Relationship Specialty Start Date End Date Kassy Jay MD [address] [place] [address] [phone] PCP - General Family Practice 12/04/22 documented as of this encounter
--- OUTSIDE RECORDS SUMMARY | 2025-08-02 20:13 | XMS_ITS | Encounter Summary ---
Author Organization [facility] Address [address] [place] [address] Care Team Providers Care Director Business Name Role Phone Kassy Jay MD Primary Care Provider [phone] Encounter Details Date Type Department Care Team ([facility] Contact Info) Description [address] Outpatient [address] [facility] [facility] Tabor, Darren Ruiz MD NO ADDRESS ON FILE Social History Tobacco Use Types Packs/Day Years Used Date Smoking Tobacco: Never Assessed Comments Unknown Sex and Gender Information Value Date Recorded Sex Assigned at Not on file Legal Sex Female 4:02 AM ELECTRONIC HEALTH RECORDS SPECIALIST Gender Identity Not on file Sexual Orientation Not on file documented as of this encounter Plan of Treatment Upcoming Encounters Date Type Department Care Team ([facility] Contact Info) Description 08/15/2025 1:30 PM ELECTRONIC HEALTH RECORDS SPECIALIST Office Visit [facility] Primary Care - Kirby Herrmann [address] [place] [address] [address] [address] Kassy Jay MD [address] [place] [phone] 09/25/2025 8:30 AM ELECTRONIC HEALTH RECORDS SPECIALIST Video Visit [facility] Adult Psychiatry [place] [address] [address] [place] [address] Argelia Law NP [address] [address] [place] [address] documented as of this encounter Visit Diagnoses Not on filedocumented in this encounter Additional Health Concerns Infection Onset Date Last Indicated Resolved Time R/O COVID-19 06/02/2021 06/03/2021 06/03/2021 7:34 PM CDT R/O COVID-19 12/22/2022 12/22/2022 12/22/2022 12:2 5 PM CDT R/O COVID-19 09/07/2023 09/07/2023 09/07/2023 9:52 PM ELECTRONIC HEALTH RECORDS SPECIALIST documented as of this encounter Care Teams Director Business Relationship Specialty Start Date End Date Kassy Jay MD [address] [place] [phone] PCP - General Family Practice 12/04/22 documented as of this encounter
--- OUTSIDE RECORDS SUMMARY | 2025-08-02 20:13 | XMS_ITS | Encounter Summary ---
Author Organization [facility] Address [address] [place] [address] Care Team Providers Care Corrugator Helper Name Role Phone Kassy Jay MD Primary Care Provider [phone] Encounter Details Date Type Department Care Team (Late Contact Info) Description 07/18/2005 Outpatient Historical [facility] Pediatrics - [facility] [address] [place] [address] [place] [address] [facility] [address] [place] [address] Social History Tobacco Use Types Packs/Day Years Used Date Smoking Tobacco: Never Assessed Comments Unknown Sex and Gender Information Value Date Recorded Sex Assigned at Not on file Legal Sex Female 4:02 AM BIOSECURITY OFFICER Gender Identity Not on file Sexual Orientation Not on file documented as of this encounter Plan of Treatment Upcoming Encounters Date Type Department Care Team (Late Contact Info) Description 08/15/2025 1:30 PM BIOSECURITY OFFICER Office Visit [facility] Primary Care - Kirby Herr[place] [address] [place] [phone] Kassy Jay MD [address] [place] [place] [phone] 09/25/2025 8:30 AM BIOSECURITY OFFICER Video Visit [facility] Adult Psychiatry Var[address] [address] [place] [place] [phone] Argelia Law NP [address] [address] [place] [address] documented as of this encounter Visit Diagnoses Not on filedocumented in this encounter Additional Health Concerns Infection Onset Date Last Indicated Resolved Time R/O COVID-19 06/02/2021 06/03/2021 06/03/2021 7:34 PM CDT R/O COVID-19 12/22/2022 12/22/2022 12/22/2022 12:2 5 PM CDT R/O COVID-19 09/07/2023 09/07/2023 09/07/2023 9:52 PM BIOSECURITY OFFICER documented as of this encounter Care Teams Corrugator Helper Relationship Specialty Start Date End Date Kassy Jay MD [address] [place] [phone] PCP - General Family Practice 12/04/22 documented as of this encounter
--- OUTSIDE RECORDS SUMMARY | 2025-08-02 20:13 | XMS_ITS | Encounter Summary ---
Author Organization [facility] Address [address] [place] [address] Care Team Providers Care Volunteer Assistant Name Role Phone Kassy Jay MD Primary Care Provider [phone] Encounter Details Date Type Department Care Team (Late Contact Info) Description 09/04/2005 Outpatient Historical [facility] Childrens Respiratory and Sleep Medicine [address] [facility] [address] [address] Gustavo Sims Social History Tobacco Use Types Packs/Day Years Used Date Smoking Tobacco: Never Assessed Comments Unknown Sex and Gender Information Value Date Recorded Sex Assigned at Not on file Legal Sex Female 4:02 AM SCRAPPER Gender Identity Not on file Sexual Orientation Not on file documented as of this encounter Plan of Treatment Upcoming Encounters Date Type Department Care Team (Late Contact Info) Description 08/15/2025 1:30 PM SCRAPPER Office Visit [facility] [place] [phone] Kassy Jay MD [address] [place] [phone] 09/25/2025 8:30 AM SCRAPPER Video Visit [facility] Adult Psychiatry [address] [address] [place] [place] [phone] [place], Argelia Lopez NP [address] [address] [place] [address] documented as of this encounter Visit Diagnoses Not on filedocumented in this encounter Additional Health Concerns Infection Onset Date Last Indicated Resolved Time R/O COVID-19 06/02/2021 06/03/2021 06/03/2021 7:34 PM CDT R/O COVID-19 12/22/2022 12/22/2022 12/22/2022 12:2 5 PM CDT R/O COVID-19 09/07/2023 09/07/2023 09/07/2023 9:52 PM SCRAPPER documented as of this encounter Care Teams Volunteer Assistant Relationship Specialty Start Date End Date Kassy Jay MD [address] [facility] [address] [place] [phone] PCP - General Family Practice 12/04/22 documented as of this encounter
--- OUTSIDE RECORDS SUMMARY | 2025-08-02 20:13 | XMS_ITS | Encounter Summary ---
Author Organization [facility] Address [address] [place] [address] Care Team Providers Care Chinchilla Machine Operator Name Role Phone Kassy Jay MD Primary Care Provider Encounter Details Date Type Department Care Team (Late Contact Info) Description 07/21/2005 Outpatient Historical [facility] Pediatrics - [facility] [address] [facility] [address] [facility] [address] [place] [address] [place] [address] [facility] [address] [place] [address] Social History Tobacco Use Types Packs/Day Years Used Date Smoking Tobacco: Never Assessed Comments Unknown Sex and Gender Information Value Date Recorded Sex Assigned at Not on file Legal Sex Female 4:02 AM SOLVENT STATION ATTENDANT Gender Identity Not on file Sexual Orientation Not on file documented as of this encounter Plan of Treatment Upcoming Encounters Date Type Department Care Team (Late Contact Info) Description 08/15/2025 1:30 PM SOLVENT STATION ATTENDANT Office Visit [facility] Primary Care - Kirby Herrmann [address] [place] [phone] Kassy Jay MD [address] [place] [phone] 09/25/2025 8:30 AM SOLVENT STATION ATTENDANT Video Visit [facility] Adult Psychiatry Varinder [address] [address] [place] [phone] Argelia Law NP [address] [address] [place] [address] documented as of this encounter Visit Diagnoses Not on filedocumented in this encounter Additional Health Concerns Infection Onset Date Last Indicated Resolved Time R/O COVID-19 06/02/2021 06/03/2021 06/03/2021 7:34 PM CDT R/O COVID-19 12/22/2022 12/22/2022 12/22/2022 12:2 5 PM CDT R/O COVID-19 09/07/2023 09/07/2023 09/07/2023 9:52 PM SOLVENT STATION ATTENDANT documented as of this encounter Care Teams Chinchilla Machine Operator Relationship Specialty Start Date End Date Kassy Jay MD [address] [place] [address] [phone] PCP - General Family Practice 12/04/22 documented as of this encounter
--- OUTSIDE RECORDS SUMMARY | 2025-08-02 20:13 | XMS_ITS | Encounter Summary ---
Author Organization [facility] Address [address] [place] [address] Care Team Providers Care Painting Department Supervisor Name Role Phone Kassy Jay MD Primary Care Provider [phone] Encounter Details Date Type Department Care Team (Late Contact Info) Description 11/20/1999 Outpatient Historical [facility] Pediatrics - [facility] [address] [facility] [address] [facility] [address] [place] [address] [place] [address] [facility] [address] [place] [address] Social History Tobacco Use Types Packs/Day Years Used Date Smoking Tobacco: Never Assessed Comments Unknown Sex and Gender Information Value Date Recorded Sex Assigned at Not on file Legal Sex Female 4:02 AM COMMUNICATIONS ENGINEER Gender Identity Not on file Sexual Orientation Not on file documented as of this encounter Plan of Treatment Upcoming Encounters Date Type Department Care Team (Late Contact Info) Description 08/15/2025 1:30 PM COMMUNICATIONS ENGINEER Office Visit [facility] Primary Care - Kirby Herrmann [address] [phone] Kassy Jay MD [address] [address] [phone] 09/25/2025 8:30 AM COMMUNICATIONS ENGINEER Video Visit [facility] Adult Psychiatry Varinder [address] [address] [place] [phone] Argelia Law NP [address] [address] [place] [address] documented as of this encounter Visit Diagnoses Not on filedocumented in this encounter Additional Health Concerns Infection Onset Date Last Indicated Resolved Time R/O COVID-19 06/02/2021 06/03/2021 06/03/2021 7:34 PM CDT R/O COVID-19 12/22/2022 12/22/2022 12/22/2022 12:2 5 PM CDT R/O COVID-19 09/07/2023 09/07/2023 09/07/2023 9:52 PM COMMUNICATIONS ENGINEER documented as of this encounter Care Teams Painting Department Supervisor Relationship Specialty Start Date End Date Kassy Jay MD [address] [place] [address] [phone] PCP - General Family Practice 12/04/22 documented as of this encounter
--- OUTSIDE RECORDS SUMMARY | 2025-08-02 20:13 | XMS_ITS | Encounter Summary ---
Author Organization [facility] Address [address] [place] [address] Care Team Providers Care Upholstered Goods Crafter Name Role Phone Kassy Jay MD Primary Care Provider [phone] Encounter Details Date Type Department Care Team (Late Contact Info) Description 1998 Outpatient Historical [facility] Pediatrics - [facility] [address] [facility] [address] [place] [address] [place] [address] [facility] [address] [address] [place] [address] Social History Tobacco Use Types Packs/Day Years Used Date Smoking Tobacco: Never Assessed Comments Unknown Sex and Gender Information Value Date Recorded Sex Assigned at Not on file Legal Sex Female 4:02 AM RECONCILIATION CLERK Gender Identity Not on file Sexual Orientation Not on file documented as of this encounter Plan of Treatment Upcoming Encounters Date Type Department Care Team (Late Contact Info) Description 08/15/2025 1:30 PM RECONCILIATION CLERK Office Visit [facility] Primary Care - Kirby Herrmann [address] [phone] Kassy Jay MD [address] [place] [phone] 09/25/2025 8:30 AM RECONCILIATION CLERK Video Visit [facility] Adult Psychiatry Varinder [address] [address] [place] [phone] Argelia Law NP [address] [address] [place] [address] documented as of this encounter Visit Diagnoses Not on filedocumented in this encounter Additional Health Concerns Infection Onset Date Last Indicated Resolved Time R/O COVID-19 06/02/2021 06/03/2021 06/03/2021 7:34 PM CDT R/O COVID-19 12/22/2022 12/22/2022 12/22/2022 12:2 5 PM CDT R/O COVID-19 09/07/2023 09/07/2023 09/07/2023 9:52 PM RECONCILIATION CLERK documented as of this encounter Care Teams Upholstered Goods Crafter Relationship Specialty Start Date End Date Kassy Jay MD [address] [place] [address] [phone] PCP - General Family Practice 12/04/22 documented as of this encounter
--- OUTSIDE RECORDS SUMMARY | 2025-08-02 20:13 | XMS_ITS | Clinical Summary ---
Author Organization [email or web address] Address [address] [facility] [address] [place] [address] Care Team Providers Care Child Specialist Name Role Phone Kassy Jay MD Primary Care Provider [phone] Source Comments [email or web address],non-owned Affiliates and Associated Physician Practices is amultiple site organization consisting of ambulatory clinics and hospital sitesin [place], [place], [place] and [place]. This disclosure is being madepursuant to the Care Everywhere program and may not contain all information available regarding this patient. Last updated 18.[email or web address] Allergies Active Allergy Reactions Criticality Noted Date [...] Zyrtec & solumedrol given. Make appt with steward/stewardess room. 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 Recently started on diazoxide. [...] sent hypoglycemia labs. Discussed with veronica, outpatient tiler Dr. Mejia will f/u with results & [...] Assessment & Plan: Patient reports follows with [facility] psychiatry. Pharmacy list confirmed with [...] Industry Job Start Date Job End Date [facility] Not on file Not on file Not on file Last Filed Vital Signs Vital Sign Reading Time Taken Comments Blood Pressure 113/71 10/11/2024 2:05 PM WEBSPHERE PROCESS SERVER DEVELOPER Pulse 82 10/11/2024 2:05 PM WEBSPHERE PROCESS SERVER DEVELOPER Temperature 36.7 C (98.1 F) 10/11/2024 11:52 AM WEBSPHERE PROCESS SERVER DEVELOPER Respiratory Rate 20 10/11/2024 2:05 PM WEBSPHERE PROCESS SERVER DEVELOPER Oxygen Saturation 98% 10/11/2024 2:05 PM WEBSPHERE PROCESS SERVER DEVELOPER Inhaled Oxygen Concentration - - Weight 81.6 kg (180 lb) 10/11/2024 11:52 AM WEBSPHERE PROCESS SERVER DEVELOPER Height 154.9 cm (5' 1) 10/11/2024 11:52 AM WEBSPHERE PROCESS SERVER DEVELOPER Body Mass Index 34.01 10/11/2024 11:52 AM WEBSPHERE PROCESS SERVER DEVELOPER Plan of Treatment Upcoming Encounters Date Type Department Care Team (Late st Contact Info) Description 09/12/2025 9:45 AM WEBSPHERE PROCESS SERVER DEVELOPER Office Visit [facility] - COMMUNICATIONS ANALYST [address] [facility] [address] [place] [address] Sam Cui MD [address] [facility] [address] [place] [address] Health [...] HR ALL PATH Routine 08/31/2023 10:35 AM WEBSPHERE PROCESS SERVER DEVELOPER Routine cervical smear from Last 3 Months or Most Recently Relevant to Health Maintenance Results * PAP IG RFLX HPV HR ALL PATH (08/31/2023 10:35 AM WEBSPHERE PROCESS SERVER DEVELOPER) Diagnosis [facility] INSURANCE BILL Comment: NEGATIVE FOR INTRAEPITHELIAL LESION OR MALIGNANCY. REACTIVE CELLULAR CHANGES AND/OR REPAIR ARE PRESENT. Specimen Adequacy [facility] INSURANCE BILL Comment: Satisfactory for evaluation. Endocervical and/or squamous metaplastic cells (endocervical component) are present. Clinician Provided ICD10 [facility] INSURANCE BILL Comment: Z01.419 Z12.4 Z97.5 Performed by [facility] INSURANCE BILL Comment:Casey Dunn hnologist (ASCP) Electronically Signed by [facility] INSURANCE BILL Comment:Mony Hermosillo MD, P athologist Comment . [facility] INSURANCE BILL Note [facility] INSURANCE BILL Comment: The Pap smear is a screening test designed to aid in the detection of premalignant and malignant conditions of the uterine cervix. It is not a diagnostic procedure and should not be used as the sole means of detecting cervical cancer. Both false-positive and false-negative reports do occur. . IGLBP CPT Code Automation [facility] INSURANCE BILL Comment: This liquid based ThinPrep(R) pap test was screened with the use of an image guided system. Note [facility] INSURANCE BILL Comment: The HPV DNA reflex criteria were not met with this specimen result therefore, no HPV testing was performed. . Pathology/Cytolog y ENTIRE ENDOCERVIX / Unknown 08/31/2023 10:35 AM WEBSPHERE PROCESS SERVER DEVELOPER 09/01/2023 Narrative [facility] INSURANCE BILL - 09/03/2023 3:09 PM WEBSPHERE PROCESS SERVER DEVELOPER Source.............Cervix No. of containers..01 ThinPrep Vial Resulting Agency Comment Lab Testing performed at: [facility] [id number] Sam Cui MD LAB - PATHOLOGY/CYTOLOGY ORDERAB LES Final Result [facility] INSURANCE BILL [address] [place] [address] from Last 3 Months or Most Recently Relevant to Health Maintenance Insurance MEDICAID [employer] Care Teams Child Specialist Relationship Specialty Start Date End Date Kassy Jay MD [address] [place] [phone] PCP - General Family Medicine 06/15/23
--- OUTSIDE RECORDS SUMMARY | 2025-08-02 20:13 | XMS_ITS | Encounter Summary ---
Author Organization [facility] Address [address] [place] [address] Care Team Providers Care Glue Plant Operator Name Role Phone Kassy Jay MD Primary Care Provider [phone] Encounter Details Date Type Department Care Team (Late Contact Info) Description 04/06/1999 Outpatient Historical [facility] Pediatrics - [facility] [address] [facility] [address] [place] [address] Darren Tabor MD NO ADDRESS ON FILE Social History Tobacco Use Types Packs/Day Years Used Date Smoking Tobacco: Never Assessed Comments Unknown Sex and Gender Information Value Date Recorded Sex Assigned at Not on file Legal Sex Female 4:02 AM PATTERN ATTENDANT Gender Identity Not on file Sexual Orientation Not on file documented as of this encounter Plan of Treatment Upcoming Encounters Date Type Department Care Team (Late Contact Info) Description 08/15/2025 1:30 PM PATTERN ATTENDANT Office Visit [facility] Primary Care - Kirby Herrmann [address] [place] [address] [phone] Kassy Jay MD [address] [place] [place] [place] [phone] 09/25/2025 8:30 AM PATTERN ATTENDANT Video Visit [facility] [address]iatry [address] [phone] Argelia Law, [place] [address] [address] [place] [address] documented as of this encounter Visit Diagnoses Not on filedocumented in this encounter Additional Health Concerns Infection Onset Date Last Indicated Resolved Time R/O COVID-19 06/02/2021 06/03/2021 06/03/2021 7:34 PM CDT R/O COVID-19 12/22/2022 12/22/2022 12/22/2022 12:2 5 PM CDT R/O COVID-19 09/07/2023 09/07/2023 09/07/2023 9:52 PM PATTERN ATTENDANT documented as of this encounter Care Teams Glue Plant Operator Relationship Specialty Start Date End Date Kassy Jay MD [address] [phone] PCP - General Family Practice 12/04/22 documented as of this encounter
--- OUTSIDE RECORDS SUMMARY | 2025-08-02 20:13 | XMS_ITS | Encounter Summary ---
Author Organization Address [address] [place] [address] Care Team Providers Care Icu Nurse Name Role Phone Kassy Jay MD Primary Care Provider [phone] Encounter Details Date Type Department Care Team (Late Contact Info) Description 1998 Outpatient Historical [facility] Pediatrics - [facility] [address] [place] [address] Darren Tabor MD NO ADDRESS ON FILE Social History Tobacco Use Types Packs/Day Years Used Date Smoking Tobacco: Never Assessed Comments Unknown Sex and Gender Information Value Date Recorded Sex Assigned at Not on file Legal Sex Female 4:02 AM BULLET ASSEMBLY PRESS SETTER OPERATOR Gender Identity Not on file Sexual Orientation Not on file documented as of this encounter Plan of Treatment Upcoming Encounters Date Type Department Care Team (Late Contact Info) Description 08/15/2025 1:30 PM BULLET ASSEMBLY PRESS SETTER OPERATOR Office Visit [facility] Primary Care - Kirby Herrmann [address] [place] [phone] Kassy Jay MD [address] [place] [phone] 09/25/2025 8:30 AM BULLET ASSEMBLY PRESS SETTER OPERATOR Video Visit [facility] [address] Psychiatry [address] [phone] Argelia Law, [place] [address] [address] [place] [address] documented as of this encounter Visit Diagnoses Not on filedocumented in this encounter Additional Health Concerns Infection Onset Date Last Indicated Resolved Time R/O COVID-19 06/02/2021 06/03/2021 06/03/2021 7:34 PM CDT R/O COVID-19 12/22/2022 12/22/2022 12/22/2022 12:2 5 PM CDT R/O COVID-19 09/07/2023 09/07/2023 09/07/2023 9:52 PM BULLET ASSEMBLY PRESS SETTER OPERATOR documented as of this encounter Care Teams Icu Nurse Relationship Specialty Start Date End Date Kassy Jay MD [address] [phone] PCP - General Family Practice 12/04/22 documented as of this encounter
--- OUTSIDE RECORDS SUMMARY | 2025-08-02 20:13 | XMS_ITS | Encounter Summary ---
Author Organization [facility] Address [address] [place] [address] Care Team Providers Care Reefer Truck Driver Name Role Phone Kassy Jay MD Primary Care Provider [phone] Encounter Details Date Type Department Care Team ([facility] Contact Info) Description 05/21/2005 Outpatient Historical [facility] Pediatrics - [facility] [address] [place] [address] Garrett Mittal MD [address] [facility] [address] [place] [address] Social History Tobacco Use Types Packs/Day Years Used Date Smoking Tobacco: Never Assessed Comments Unknown Sex and Gender Information Value Date Recorded Sex Assigned at Not on file Legal Sex Female 4:02 AM APPLICATION INTEGRATION ARCHITECT Gender Identity Not on file Sexual Orientation [...] ([facility] Contact Info) Description 08/15/2025 1:30 PM APPLICATION INTEGRATION ARCHITECT Office Visit [facility] Primary Care - Michael Herrmann [address] [place] [address] [phone] Kassy Jay MD [address] [place] [phone] 09/25/2025 8:30 AM APPLICATION INTEGRATION ARCHITECT Video Visit [facility] Adult Psychiatry Varinder [address] [address] [place] [address] Argelia Law NP [address] [facility] [address] [place] [address] documented as of this encounter Visit Diagnoses Not on filedocumented in this encounter Additional Health Concerns Infection Onset Date Last Indicated Resolved Time R/O COVID-19 06/02/2021 06/03/2021 06/03/2021 7:34 PM CDT R/O COVID-19 12/22/2022 12/22/2022 12/22/2022 12:2 5 PM CDT R/O COVID-19 09/07/2023 09/07/2023 09/07/2023 9:52 PM APPLICATION INTEGRATION ARCHITECT documented as of this encounter Care Teams Reefer Truck Driver Relationship Specialty Start Date End Date Kassy Jay MD [address] [place] [place] [address] [phone] PCP - General Family Practice 12/04/22 documented as of this encounter
--- OUTSIDE RECORDS SUMMARY | 2025-08-02 20:13 | XMS_ITS | Encounter Summary ---
Author Organization [facility] Address [address] [place] [address] Care Team Providers Care Gps Navigation Installer Name Role Phone Kassy Jay MD Primary Care Provider [phone] Encounter Details Date Type Department Care Team (Late Contact Info) Description 01/21/2006 Outpatient Historical [facility] Pediatrics - [facility] [address] [facility] [address] [place] [address] [place] [address] [address] [facility] [address] [address] [place] [address] Social History Tobacco Use Types Packs/Day Years Used Date Smoking Tobacco: Never Assessed Comments Unknown Sex and Gender Information Value Date Recorded Sex Assigned at Not on file Legal Sex Female 4:02 AM OUTSIDE BARREL LATHE OPERATOR Gender Identity Not on file Sexual Orientation Not on file documented as of this encounter Plan of Treatment Upcoming Encounters Date Type Department Care Team (Late Contact Info) Description 08/15/2025 1:30 PM OUTSIDE BARREL LATHE OPERATOR Office Visit [facility] Primary Care - Kirby Herrmann [address] [place] [phone] Kassy Jay MD [address] [place] [address] [phone] 09/25/2025 8:30 AM OUTSIDE BARREL LATHE OPERATOR Video Visit [facility] Adult Psychiatry Var[address] [address] [place] [phone] Argelia Law NP [address] [address] [place] [address] documented as of this encounter Visit Diagnoses Not on filedocumented in this encounter Additional Health Concerns Infection Onset Date Last Indicated Resolved Time R/O COVID-19 06/02/2021 06/03/2021 06/03/2021 7:34 PM CDT R/O COVID-19 12/22/2022 12/22/2022 12/22/2022 12:2 5 PM CDT R/O COVID-19 09/07/2023 09/07/2023 09/07/2023 9:52 PM OUTSIDE BARREL LATHE OPERATOR documented as of this encounter Care Teams Gps Navigation Installer Relationship Specialty Start Date End Date Kassy Jay MD [address] [place] [address] [phone] PCP - General Family Practice 12/04/22 documented as of this encounter
--- OUTSIDE RECORDS SUMMARY | 2025-08-02 20:13 | XMS_ITS | Encounter Summary ---
Author Organization [facility] Address [address] [place] [address] Care Team Providers Care Supervisory Investigative Specialist Name Role Phone Kassy Jay MD Primary Care Provider [phone] Encounter Details Date Type Department Care Team (Latest Contact Info) Description 09/04/2005 Outpatient Historical [facility] Gustavo Sims EXTRINSIC ASTHMA UNSPECIFIED (Primary Dx) Social History Tobacco Use Types Packs/Day Years Used Date Smoking Tobacco: Never Assessed Comments Unknown Sex and Gender Information Value Date Recorded Sex Assigned at Not on file Legal Sex Female 4:02 AM DRAWING TRACER Gender Identity Not on file Sexual Orientation Not on file documented as of this encounter Plan of Treatment Upcoming Encounters Date Type Department Care Team (Late st Contact Info) Description 08/15/2025 1:30 PM DRAWING TRACER Office Visit [facility] Primary Care - Kirby Herr[place] [address] [place] [address] Kassy Jay MD [address] [place] [phone] 09/25/2025 8:30 AM DRAWING TRACER Video Visit [facility] Adult Psychiatry [place] [address] [address] [place] [phone] Argelia Law NP [address] [address] [place] [address] documented as of this encounter Visit Diagnoses Diagnosis Extrinsic asthma, unspecified- Primary documented in this encounter Additional Health Concerns Infection Onset Date Last Indicated Resolved Time R/O COVID-19 06/02/2021 06/03/2021 06/03/2021 7:34 PM CDT R/O COVID-19 12/22/2022 12/22/2022 12/22/2022 12:2 5 PM CDT R/O COVID-19 09/07/2023 09/07/2023 09/07/2023 9:52 PM DRAWING TRACER documented as of this encounter Care Teams Supervisory Investigative Specialist Relationship Specialty Start Date End Date Kassy Jay MD [address] [place] [phone] PCP - General Family Practice 12/04/22 documented as of this encounter
--- OUTSIDE RECORDS SUMMARY | 2025-08-02 20:13 | XMS_ITS | Encounter Summary ---
Author Organization [facility] Address [address] [place] [address] Care Team Providers Care Pipe Line Walker Name Role Phone Kassy aJy MD Primary Care Provider [phone] Encounter Details Date Type Department Care Team (Late st Contact Info) Description 12/06/[address] [facility] Pediatrics - [facility] [address] [facility] [address] [place] [address] [place] [address] [facility] [address] [place] [address] Social History Tobacco Use Types Packs/Day Years Used Date Smoking Tobacco: Never Assessed Comments Unknown Sex and Gender Information Value Date Recorded Sex Assigned at Not on file Legal Sex Female 4:02 AM SCRAP MATERIALS BUYER Gender Identity Not on file Sexual Orientation Not on file documented as of this encounter Progress Notes * Lacie Malik MD - 02/24/2008 6:49 PM CDT PATIENT'S AGE: 7 yrs, 9 mths, 1 wk, 3 days VITALS: TEMP: 98.4??f Oral PULSE: 116 Apical, Regular RESPIRATIONS: 20. WEIGHT: [id number] NURSE NAME: Lakeshia Fan J ACCOMPANIED BY: [...] st Contact Info) Description 08/15/2025 1:30 PM SCRAP MATERIALS BUYER Office Visit [facility] Primary Care - Kirby Herrmann [address] [place] [address] Kassy Jay MD [address] [place] [address] 09/25/2025 8:30 AM SCRAP MATERIALS BUYER Video Visit [facility] Adult Psychiatry [place] [address] [address] [place] [address] Argelia Law NP [address] [address] [place] [address] documented as of this encounter Visit Diagnoses Not on filedocumented in this encounter Additional Health Concerns Infection Onset Date Last Indicated Resolved Time R/O COVID-19 06/02/2021 06/03/2021 06/03/2021 7:34 PM CDT R/O COVID-19 12/22/2022 12/22/2022 12/22/2022 12:2 5 PM CDT R/O COVID-19 09/07/2023 09/07/2023 09/07/2023 9:52 PM SCRAP MATERIALS BUYER documented as of this encounter Care Teams Pipe Line Walker Relationship Specialty Start Date End Date Kassy Jay MD [address] [place] [phone] PCP - General Family Practice 12/04/22 documented as of this encounter
--- OUTSIDE RECORDS SUMMARY | 2025-08-02 20:13 | XMS_ITS | Encounter Summary ---
Author Organization [facility] Address [address] [place] [address] Care Team Providers Care Chemical Processor Name Role Phone Kassy Jay MD Primary Care Provider [phone] Encounter Details Date Type Department Care Team (Late Contact Info) Description 07/21/2005 Outpatient Historical [facility] Pediatrics - [facility] [address] [facility] [address] [place] [address] [place] [address] [place] [address] Social History Tobacco Use Types Packs/Day Years Used Date Smoking Tobacco: Never Assessed Comments Unknown Sex and Gender Information Value Date Recorded Sex Assigned at Not on file Legal Sex Female 4:02 AM AUTOMOTIVE DISMANTLER Gender Identity Not on file Sexual Orientation Not on file documented as of this encounter Plan of Treatment Upcoming Encounters Date Type Department Care Team (Late Contact Info) Description 08/15/2025 1:30 PM AUTOMOTIVE DISMANTLER Office Visit [facility] Primary Care - Kirby Herrmann [address] [address] [phone] Kassy Jay MD [address] [place] [phone] 09/25/2025 8:30 AM AUTOMOTIVE DISMANTLER Video Visit [facility] Adult Psychiatry [place] [address] [address] [place] [phone] Argelia Law NP [address] [address] [place] [address] documented as of this encounter Visit Diagnoses Not on filedocumented in this encounter Additional Health Concerns Infection Onset Date Last Indicated Resolved Time R/O COVID-19 06/02/2021 06/03/2021 06/03/2021 7:34 PM CDT R/O COVID-19 12/22/2022 12/22/2022 12/22/2022 12:2 5 PM CDT R/O COVID-19 09/07/2023 09/07/2023 09/07/2023 9:52 PM AUTOMOTIVE DISMANTLER documented as of this encounter Care Teams Chemical Processor Relationship Specialty Start Date End Date Kassy Jay MD [address] [place] [address] [phone] PCP - General Family Practice 12/04/22 documented as of this encounter
--- OUTSIDE RECORDS SUMMARY | 2025-08-02 20:13 | XMS_ITS | Encounter Summary ---
Author Organization [facility] Address [address] [place] [address] Care Team Providers Care Marksmanship Instructor Name Role Phone Kassy Jay MD Primary Care Provider [phone] Encounter Details Date Type Department Care Team (Late Contact Info) Description 07/27/2000 Outpatient Historical [facility] Pediatrics - [facility] [address] [facility] [address] [place] [address] [place] [address] [address] [place] [address] Social History Tobacco Use Types Packs/Day Years Used Date Smoking Tobacco: Never Assessed Comments Unknown Sex and Gender Information Value Date Recorded Sex Assigned at Not on file Legal Sex Female 4:02 AM VASCULAR SONOGRAPHER Gender Identity Not on file Sexual Orientation Not on file documented as of this encounter Plan of Treatment Upcoming Encounters Date Type Department Care Team (Late Contact Info) Description 08/15/2025 1:30 PM VASCULAR SONOGRAPHER Office Visit [facility] Primary Care - Kirby Herrmann [address] [place] [phone] Kassy Jay MD [address] [place] [place] [address] [phone] 09/25/2025 8:30 AM VASCULAR SONOGRAPHER Video Visit [facility] Adult Psychiatry [place] [address] [address] [place] [phone] Argelia Law NP [address] [address] [place] [address] documented as of this encounter Visit Diagnoses Not on filedocumented in this encounter Additional Health Concerns Infection Onset Date Last Indicated Resolved Time R/O COVID-19 06/02/2021 06/03/2021 06/03/2021 7:34 PM CDT R/O COVID-19 12/22/2022 12/22/2022 12/22/2022 12:2 5 PM CDT R/O COVID-19 09/07/2023 09/07/2023 09/07/2023 9:52 PM VASCULAR SONOGRAPHER documented as of this encounter Care Teams Marksmanship Instructor Relationship Specialty Start Date End Date Kassy Jay MD [address] [place] [address] [phone] PCP - General Family Practice 12/04/22 documented as of this encounter
--- OUTSIDE RECORDS SUMMARY | 2025-08-02 20:13 | XMS_ITS | Encounter Summary ---
Author Organization [facility] Address [address] [place] [address] Care Team Providers Care Windows Software Developer Name Role Phone Kassy Jay MD Primary Care Provider [phone] Encounter Details Date Type Department Care Team (Late Contact Info) Description 05/04/2008 Outpatient Historical [facility] [address] [facility] [address] [place] [address] Headache Social History Tobacco Use Types Packs/Day Years Used Date Smoking Tobacco: Never Assessed Comments No Sex and Gender Information Value Date Recorded Sex Assigned at Not on file Legal Sex Female 4:02 AM LOG SORTING SUPERVISOR Gender Identity Not on file Sexual Orientation Not on file documented as of this encounter Plan of Treatment Upcoming Encounters Date Type Department Care Team (Late Contact Info) Description 08/15/2025 1:30 PM LOG SORTING SUPERVISOR Office Visit [facility] Primary Care - Kirby Herrmann [address] [place] [address] [phone] Kassy Jay MD [address] [place] [address] [phone] 09/25/2025 8:30 AM LOG SORTING SUPERVISOR Video Visit [facility] Adult Psychiatry [place] [address] [place] [address] Thanh Argelia Lopez, CERTIFIED HEALTH EDUCATION SPECIALIST [address] [address] [place] [address] documented as of this encounter Visit Diagnoses Diagnosis Headache(784.0) Headache documented in this encounter Additional Health Concerns Infection Onset Date Last Indicated Resolved Time R/O COVID-19 06/02/2021 06/03/2021 06/03/2021 7:34 PM CDT R/O COVID-19 12/22/2022 12/22/2022 12/22/2022 12:2 5 PM CDT R/O COVID-19 09/07/2023 09/07/2023 09/07/2023 9:52 PM LOG SORTING SUPERVISOR documented as of this encounter Care Teams Windows Software Developer Relationship Specialty Start Date End Date Kassy Jay MD [address] [place] [address] [phone] PCP - General Family Practice 12/04/22 documented as of this encounter
--- OUTSIDE RECORDS SUMMARY | 2025-08-02 20:13 | XMS_ITS | Encounter Summary ---
Author Organization [facility] Address [address] [place] [address] Care Team Providers Care Specifications Writer Name Role Phone Kassy Jay MD Primary Care Provider [phone] Encounter Details Date Type Department Care Team ([facility] Contact Info) Description 1998 Outpatient Historical [facility] Tabor, Darren Ruiz MD NO ADDRESS ON FILE Social History Tobacco Use Types Packs/Day Years Used Date Smoking Tobacco: Never Assessed Comments Unknown Sex and Gender Information Value Date Recorded Sex Assigned at Not on file Legal Sex Female 4:02 AM TRAM OPERATOR Gender Identity Not on file Sexual Orientation Not on file documented as of this encounter Plan of Treatment Upcoming Encounters Date Type Department Care Team ([facility] Contact Info) Description 08/15/2025 1:30 PM TRAM OPERATOR Office Visit [facility] Primary Care - Kirby Herrmann [address] [phone] Kassy Jay MD [address] [place] [address] [phone] 09/25/2025 8:30 AM TRAM OPERATOR Video Visit [facility] Adult Psychiatry [place] [address] [address] [place] [address] Argelia Law NP [address] [address] [place] [address] documented as of this encounter Visit Diagnoses Not on filedocumented in this encounter Additional Health Concerns Infection Onset Date Last Indicated Resolved Time R/O COVID-19 06/02/2021 06/03/2021 06/03/2021 7:34 PM CDT R/O COVID-19 12/22/2022 12/22/2022 12/22/2022 12:2 5 PM CDT R/O COVID-19 09/07/2023 09/07/2023 09/07/2023 9:52 PM TRAM OPERATOR documented as of this encounter Care Teams Specifications Writer Relationship Specialty Start Date End Date Kassy Jay MD [address] [place] [phone] PCP - General Family Practice 12/04/22 documented as of this encounter
--- OUTSIDE RECORDS SUMMARY | 2025-08-02 20:13 | XMS_ITS | Encounter Summary ---
Author Organization [facility] Address [address] [place] [address] Care Team Providers Care Mds Nurse Name Role Phone Kassy Jay MD Primary Care Provider [phone] Encounter Details Date Type Department Care Team (Late Contact Info) Description 08/16/1999 Outpatient Historical [facility] Pediatrics - [facility] [address] [facility] [address] [place] [address] Darren Tabor MD NO ADDRESS ON FILE Social History Tobacco Use Types Packs/Day Years Used Date Smoking Tobacco: Never Assessed Comments Unknown Sex and Gender Information Value Date Recorded Sex Assigned at Not on file Legal Sex Female 4:02 AM FINANCIAL REPORTING ACCOUNTANT Gender Identity Not on file Sexual Orientation Not on file documented as of this encounter Plan of Treatment Upcoming Encounters Date Type Department Care Team (Late Contact Info) Description 08/15/2025 1:30 PM FINANCIAL REPORTING ACCOUNTANT Office Visit [facility] Primary Care - Kirby Herrmann [address] [phone] Kassy Jay MD [address] [place] [phone] 09/25/2025 8:30 AM FINANCIAL REPORTING ACCOUNTANT Video Visit [facility] Adult Psychiatry [address] [phone] Argelia Law, [place] [address] [address] [place] [address] documented as of this encounter Visit Diagnoses Not on filedocumented in this encounter Additional Health Concerns Infection Onset Date Last Indicated Resolved Time R/O COVID-19 06/02/2021 06/03/2021 06/03/2021 7:34 PM CDT R/O COVID-19 12/22/2022 12/22/2022 12/22/2022 12:2 5 PM CDT R/O COVID-19 09/07/2023 09/07/2023 09/07/2023 9:52 PM FINANCIAL REPORTING ACCOUNTANT documented as of this encounter Care Teams Mds Nurse Relationship Specialty Start Date End Date Kassy Jay MD [address] [place] [phone] PCP - General Family Practice 12/04/22 documented as of this encounter
--- OUTSIDE RECORDS SUMMARY | 2025-08-02 20:13 | XMS_ITS | Encounter Summary ---
Author Organization [facility] Address [address] [place] [address] Care Team Providers Care Gl Accountant Name Role Phone Kassy Jay MD Primary Care Provider [phone] Encounter Details Date Type Department Care Team ([facility] Contact Info) Description 1998 Outpatient Historical [facility] MAURICIO Tabor, Darren Ruiz MD NO ADDRESS ON FILE Social History Tobacco Use Types Packs/Day Years Used Date Smoking Tobacco: Never Assessed Comments Unknown Sex and Gender Information Value Date Recorded Sex Assigned at Not on file Legal Sex Female 4:02 AM CLINICAL REVIEW NURSE Gender Identity Not on file Sexual Orientation Not on file documented as of this encounter Plan of Treatment Upcoming Encounters Date Type Department Care Team ([facility] Contact Info) Description 08/15/2025 1:30 PM CLINICAL REVIEW NURSE Office Visit [facility] Primary Care - Kirby Herrmann [address] [address] [phone] Kassy Jay MD [address] [place] [phone] 09/25/2025 8:30 AM CLINICAL REVIEW NURSE Video Visit [facility] Adult Psychiatry [place] [address] [address] [place] [phone] Argelia Law NP [address] [address] [place] [address] documented as of this encounter Visit Diagnoses Not on filedocumented in this encounter Additional Health Concerns Infection Onset Date Last Indicated Resolved Time R/O COVID-19 06/02/2021 06/03/2021 06/03/2021 7:34 PM CDT R/O COVID-19 12/22/2022 12/22/2022 12/22/2022 12:2 5 PM CDT R/O COVID-19 09/07/2023 09/07/2023 09/07/2023 9:52 PM CLINICAL REVIEW NURSE documented as of this encounter Care Teams Gl Accountant Relationship Specialty Start Date End Date Kassy Jay MD [address] [place] [phone] PCP - General Family Practice 12/04/22 documented as of this encounter
--- OUTSIDE RECORDS SUMMARY | 2025-08-02 20:13 | XMS_ITS | Encounter Summary ---
Author Organization [facility] Address [address] [place] [address] Care Team Providers Care Retail Bakery Manager Name Role Phone Kassy Jay MD Primary Care Provider [phone] Encounter Details Date Type Department Care Team (Late Contact Info) Description 09/11/2006 Outpatient Historical [facility] Pediatrics - [facility] [address] [facility] [address] [place] [address] [place] [address] [place] [address] Social History Tobacco Use Types Packs/Day Years Used Date Smoking Tobacco: Never Assessed Comments Unknown Sex and Gender Information Value Date Recorded Sex Assigned at Not on file Legal Sex Female 4:02 AM TIRE RETREADER Gender Identity Not on file Sexual Orientation Not on file documented as of this encounter Last Filed Vital Signs Vital Sign Reading Time Taken Comments Blood Pressure - - Pulse 88 09/11/2006 8:45 AM TIRE RETREADER Temperature 36.7 C (98 F) 09/11/2006 8:45 AM TIRE RETREADER Respiratory Rate 20 09/11/2006 8:45 AM TIRE RETREADER Oxygen Saturation - - Inhaled Oxygen Concentration - - Weight 30.2 kg (66 lb 8 oz) 09/11/2006 8:[address] Height - - Body Mass Index - - documented in this encounter Plan of Treatment Upcoming Encounters Date Type Department Care Team (Late Contact Info) Description 08/15/2025 1:30 PM TIRE RETREADER Office Visit [facility] Primary Care - Michael Herrmann [address] [place] [address] Kassy Jay MD [address] [place] [phone] 09/25/2025 8:30 AM TIRE RETREADER Video Visit [facility] Adult Psychiatry [place] [address] [facility] [address] [place] [address] Argelia Law NP [address] [facility] [address] [place] [address] documented as of this encounter Visit Diagnoses Not on filedocumented in this encounter Additional Health Concerns Infection Onset Date Last Indicated Resolved Time R/O COVID-19 06/02/2021 06/03/2021 06/03/2021 7:34 PM CDT R/O COVID-19 12/22/2022 12/22/2022 12/22/2022 12:2 5 PM CDT R/O COVID-19 09/07/2023 09/07/2023 09/07/2023 9:52 PM TIRE RETREADER documented as of this encounter Care Teams Retail Bakery Manager Relationship Specialty Start Date End Date Kassy Jay MD [address] [place] [address] [phone] PCP - General Family Practice 12/04/22 documented as of this encounter
--- OUTSIDE RECORDS SUMMARY | 2025-08-02 20:13 | XMS_ITS | Encounter Summary ---
Author Organization [facility] Address [address] [place] [address] Care Team Providers Care Aeronautical Research Engineer Name Role Phone Kassy Jay MD Primary Care Provider [phone] Encounter Details Date Type Department Care Team (Late Contact Info) Description 12/06/2007 Outpatient Historical [facility] Pediatrics - [facility] [address] [facility] [address] [place] [address] [place] [address] [place] [address] Social History Tobacco Use Types Packs/Day Years Used Date Smoking Tobacco: Never Assessed Comments Unknown Sex and Gender Information Value Date Recorded Sex Assigned at Not on file Legal Sex Female 4:02 AM CHOKE REAMER Gender Identity Not on file Sexual Orientation Not on file documented as of this encounter Plan of Treatment Upcoming Encounters Date Type Department Care Team (Late Contact Info) Description 08/15/2025 1:30 PM CHOKE REAMER Office Visit [facility] Primary Care - Kirby Herrmann [address] [place] [address] [address] [phone] Kassy Jay MD [address] [place] [place] [phone] 09/25/2025 8:30 AM CHOKE REAMER Video Visit [facility] Adult Psychiatry [place] [address] [address] [place] [phone] Argelia Law NP [address] [address] [place] [address] documented as of this encounter Visit Diagnoses Not on filedocumented in this encounter Additional Health Concerns Infection Onset Date Last Indicated Resolved Time R/O COVID-19 06/02/2021 06/03/2021 06/03/2021 7:34 PM CDT R/O COVID-19 12/22/2022 12/22/2022 12/22/2022 12:2 5 PM CDT R/O COVID-19 09/07/2023 09/07/2023 09/07/2023 9:52 PM CHOKE REAMER documented as of this encounter Care Teams Aeronautical Research Engineer Relationship Specialty Start Date End Date Kassy Jay MD [address] [place] [address] [phone] PCP - General Family Practice 12/04/22 documented as of this encounter
--- OUTSIDE RECORDS SUMMARY | 2025-08-02 20:13 | XMS_ITS | Encounter Summary ---
Author Organization [facility] Address [address] [place] [address] Care Team Providers Care Brand Advocate Name Role Phone Kassy Jay MD Primary Care Provider [phone] Encounter Details Date Type Department Care Team (Late Contact Info) Description 03/02/2000 Outpatient Historical [facility] Pediatrics - [facility] [address] [facility] [address] [place] [address] [place] [address] [place] [address] Social History Tobacco Use Types Packs/Day Years Used Date Smoking Tobacco: Never Assessed Comments Unknown Sex and Gender Information Value Date Recorded Sex Assigned at Not on file Legal Sex Female 4:02 AM WATER SUPPLY ENGINEER Gender Identity Not on file Sexual Orientation Not on file documented as of this encounter Plan of Treatment Upcoming Encounters Date Type Department Care Team (Late Contact Info) Description 08/15/2025 1:30 PM WATER SUPPLY ENGINEER Office Visit [facility] Primary Care - Kirby Herrmann [address] [place] [address] [phone] Kassy Jay MD [address] [place] [place] [phone] 09/25/2025 8:30 AM WATER SUPPLY ENGINEER Video Visit [facility] Adult Psychiatry [place] [address] [address] [place] [phone] Argelia Law NP [address] [address] [place] [address] documented as of this encounter Visit Diagnoses Not on filedocumented in this encounter Additional Health Concerns Infection Onset Date Last Indicated Resolved Time R/O COVID-19 06/02/2021 06/03/2021 06/03/2021 7:34 PM CDT R/O COVID-19 12/22/2022 12/22/2022 12/22/2022 12:2 5 PM CDT R/O COVID-19 09/07/2023 09/07/2023 09/07/2023 9:52 PM WATER SUPPLY ENGINEER documented as of this encounter Care Teams Brand Advocate Relationship Specialty Start Date End Date Kassy Jay MD [address] [place] [address] [phone] PCP - General Family Practice 12/04/22 documented as of this encounter
--- OUTSIDE RECORDS SUMMARY | 2025-08-02 20:13 | XMS_ITS | Encounter Summary ---
Author Organization [facility] Address [address] [place] [address] Care Team Providers Care Head Of Sales Promotion Name Role Phone Kassy Jay MD Primary Care Provider [phone] Encounter Details Date Type Department Care Team (Late Contact Info) Description 1998 Outpatient Historical [facility] Pediatrics - [facility] [address] [address] [facility] [address] [place] [address] Darren Tabor MD NO ADDRESS ON FILE Social History Tobacco Use Types Packs/Day Years Used Date Smoking Tobacco: Never Assessed Comments Unknown Sex and Gender Information Value Date Recorded Sex Assigned at Not on file Legal Sex Female 4:02 AM PROMOTION MANAGER Gender Identity Not on file Sexual Orientation Not on file documented as of this encounter Plan of Treatment Upcoming Encounters Date Type Department Care Team (Late Contact Info) Description 08/15/2025 1:30 PM PROMOTION MANAGER Office Visit [facility] Primary Care - [address] [place] [phone] Kassy Jay MD [address] [place] [phone] 09/25/2025 8:30 AM PROMOTION MANAGER Video Visit [facility] Adult Psychiatry [address] [phone] Argelia Law, [place] [address] [address] [place] [address] documented as of this encounter Visit Diagnoses Not on filedocumented in this encounter Additional Health Concerns Infection Onset Date Last Indicated Resolved Time R/O COVID-19 06/02/2021 06/03/2021 06/03/2021 7:34 PM CDT R/O COVID-19 12/22/2022 12/22/2022 12/22/2022 12:2 5 PM CDT R/O COVID-19 09/07/2023 09/07/2023 09/07/2023 9:52 PM PROMOTION MANAGER documented as of this encounter Care Teams Head Of Sales Promotion Relationship Specialty Start Date End Date Kassy Jay MD [address] [place] [address] PCP - General Family Practice 12/04/22 documented as of this encounter
--- OUTSIDE RECORDS SUMMARY | 2025-08-02 20:13 | XMS_ITS | Encounter Summary ---
Author Organization [facility] Address [address] [place] [address] Care Team Providers Care Leather Shaver Name Role Phone Kassy Jay MD Primary Care Provider [phone] Encounter Details Date Type Department Care Team (Late Contact Info) Description 06/03/1999 Outpatient Historical [facility] Pediatrics - [facility] [address] [address] [facility] [address] [place] [address] Darren Tabor MD NO ADDRESS ON FILE Social History Tobacco Use Types Packs/Day Years Used Date Smoking Tobacco: Never Assessed Comments Unknown Sex and Gender Information Value Date Recorded Sex Assigned at Not on file Legal Sex Female 4:02 AM QA ANALYST Gender Identity Not on file Sexual Orientation Not on file documented as of this encounter Plan of Treatment Upcoming Encounters Date Type Department Care Team (Late Contact Info) Description 08/15/2025 1:30 PM QA ANALYST Office Visit [facility] Primary Care - Kirby [address] [address] [phone] Kassy Jay MD [address] [place] [place] [phone] 09/25/2025 8:30 AM QA ANALYST Video Visit [facility] Adult Psychiatry [address] [phone] Argelia Law, [place] [address] [address] [place] [address] documented as of this encounter Visit Diagnoses Not on filedocumented in this encounter Additional Health Concerns Infection Onset Date Last Indicated Resolved Time R/O COVID-19 06/02/2021 06/03/2021 06/03/2021 7:34 PM CDT R/O COVID-19 12/22/2022 12/22/2022 12/22/2022 12:2 5 PM CDT R/O COVID-19 09/07/2023 09/07/2023 09/07/2023 9:52 PM QA ANALYST documented as of this encounter Care Teams Leather Shaver Relationship Specialty Start Date End Date Kassy Jay MD [address] [place] [phone] PCP - General Family Practice 12/04/22 documented as of this encounter
--- OUTSIDE RECORDS SUMMARY | 2025-08-02 20:13 | XMS_ITS | Encounter Summary ---
Author Organization [facility] Address [address] [place] [address] Care Team Providers Care Clock Mechanic Name Role Phone Kassy Jay MD Primary Care Provider [phone] Encounter Details Date Type Department Care Team (Late Contact Info) Description 1998 Outpatient Historical [facility] Pediatrics - [facility] [address] [address] [facility] [address] [place] [address] Garrett Mittal MD [address] [facility] [address] [place] [address] Social History Tobacco Use Types Packs/Day Years Used Date Smoking Tobacco: Never Assessed Comments Unknown Sex and Gender Information Value Date Recorded Sex Assigned at Not on file Legal Sex Female 4:02 AM ALL SOURCE COLLECTION MANAGER Gender Identity Not on file Sexual Orientation Not on file documented as of this encounter Plan of Treatment Upcoming Encounters Date Type Department Care Team (Late Contact Info) Description 08/15/2025 1:30 PM ALL SOURCE COLLECTION MANAGER Office Visit [facility] Primary Care - Kirby Herrmann [address] [place] [phone] Kassy Jay MD [address] [place] [phone] 09/25/2025 8:30 AM ALL SOURCE COLLECTION MANAGER Video Visit [facility] Adult Psychiatry [place] [address] [address] [place] [phone] Argelia Law NP [address] [address] [place] [address] documented as of this encounter Visit Diagnoses Not on filedocumented in this encounter Additional Health Concerns Infection Onset Date Last Indicated Resolved Time R/O COVID-19 06/02/2021 06/03/2021 06/03/2021 7:34 PM CDT R/O COVID-19 12/22/2022 12/22/2022 12/22/2022 12:2 5 PM CDT R/O COVID-19 09/07/2023 09/07/2023 09/07/2023 9:52 PM ALL SOURCE COLLECTION MANAGER documented as of this encounter Care Teams Clock Mechanic Relationship Specialty Start Date End Date Kassy Jay MD [address] [place] [address] [phone] PCP - General Family Practice 12/04/22 documented as of this encounter
--- OUTSIDE RECORDS SUMMARY | 2025-08-02 20:13 | XMS_ITS | Encounter Summary ---
Author Organization [facility] Address [address] [place] [address] Care Team Providers Care Software Support Technician Name Role Phone Kassy Jay MD Primary Care Provider [phone] Encounter Details Date Type Department Care Team (Late Contact Info) Description 10/14/1999 Outpatient Historical [facility] Pediatrics - [facility] [address] [facility] [address] [place] [address] [place] [address] [place] [address] Social History Tobacco Use Types Packs/Day Years Used Date Smoking Tobacco: Never Assessed Comments Unknown Sex and Gender Information Value Date Recorded Sex Assigned at Not on file Legal Sex Female 4:02 AM OIL WINTERIZER Gender Identity Not on file Sexual Orientation Not on file documented as of this encounter Plan of Treatment Upcoming Encounters Date Type Department Care Team (Late Contact Info) Description 08/15/2025 1:30 PM OIL WINTERIZER Office Visit [facility] Primary Care - Kirby [address] [address] [phone] Kassy Jay MD [address] [place] [place] [address] [phone] 09/25/2025 8:30 AM OIL WINTERIZER Video Visit [facility] Adult Psychiatry [place] [address] [address] [place] [phone] Argelia Law NP [address] [address] [place] [address] documented as of this encounter Visit Diagnoses Not on filedocumented in this encounter Additional Health Concerns Infection Onset Date Last Indicated Resolved Time R/O COVID-19 06/02/2021 06/03/2021 06/03/2021 7:34 PM CDT R/O COVID-19 12/22/2022 12/22/2022 12/22/2022 12:2 5 PM CDT R/O COVID-19 09/07/2023 09/07/2023 09/07/2023 9:52 PM OIL WINTERIZER documented as of this encounter Care Teams Software Support Technician Relationship Specialty Start Date End Date Kassy Jay MD [address] [place] [address] [phone] PCP - General Family Practice 12/04/22 documented as of this encounter
--- OUTSIDE RECORDS SUMMARY | 2025-08-02 20:13 | XMS_ITS | Encounter Summary ---
Author Organization [facility] Address [address] [place] [address] Care Team Providers Care Animal Caretaker Name Role Phone Kassy Jay MD Primary Care Provider [phone] Encounter Details Date Type Department Care Team ([facility] Contact Info) Description 1998 Outpatient Historical [facility] [facility] Tabor, Darren Ruiz MD NO ADDRESS ON FILE Social History Tobacco Use Types Packs/Day Years Used Date Smoking Tobacco: Never Assessed Comments Unknown Sex and Gender Information Value Date Recorded Sex Assigned at Not on file Legal Sex Female 4:02 AM CAFE MANAGER Gender Identity Not on file Sexual Orientation Not on file documented as of this encounter Plan of Treatment Upcoming Encounters Date Type Department Care Team ([facility] Contact Info) Description 08/15/2025 1:30 PM CAFE MANAGER Office Visit [facility] Primary Care - [address] [address] [phone] Kassy Jay MD [address] [place] [address] [phone] 09/25/2025 8:30 AM CAFE MANAGER Video Visit [facility] Adult Psychiatry [place] [address] [address] [place] [address] Argelia Law NP [address] [address] [place] [address] documented as of this encounter Visit Diagnoses Not on filedocumented in this encounter Additional Health Concerns Infection Onset Date Last Indicated Resolved Time R/O COVID-19 06/02/2021 06/03/2021 06/03/2021 7:34 PM CDT R/O COVID-19 12/22/2022 12/22/2022 12/22/2022 12:2 5 PM CDT R/O COVID-19 09/07/2023 09/07/2023 09/07/2023 9:52 PM CAFE MANAGER documented as of this encounter Care Teams Animal Caretaker Relationship Specialty Start Date End Date Kassy Jay MD [address] [place] [phone] PCP - General Family Practice 12/04/22 documented as of this encounter
--- OUTSIDE RECORDS SUMMARY | 2025-08-02 20:13 | XMS_ITS | Encounter Summary ---
Author Organization [facility] Address [address] [place] [address] Care Team Providers Care Plate Worker Helper Name Role Phone Kassy Jay MD Primary Care Provider [phone] Encounter Details Date Type Department Care Team ([facility] Contact Info) Description 1998 Outpatient Historical [facility] Tabor, Darren Ruiz MD NO ADDRESS ON FILE Social History Tobacco Use Types Packs/Day Years Used Date Smoking Tobacco: Never Assessed Comments Unknown Sex and Gender Information Value Date Recorded Sex Assigned at Not on file Legal Sex Female 4:02 AM DENTAL PATIENT COORDINATOR Gender Identity Not on file Sexual Orientation Not on file documented as of this encounter Plan of Treatment Upcoming Encounters Date Type Department Care Team ([facility] Contact Info) Description 08/15/2025 1:30 PM DENTAL PATIENT COORDINATOR Office Visit [facility] Primary Care - [address] [address] [phone] Kassy Jay MD [address] [place] [address] [phone] 09/25/2025 8:30 AM DENTAL PATIENT COORDINATOR Video Visit [facility] Adult Psychiatry [place] [address] [address] [place] [phone] Argelia Law NP [address] [address] [place] [address] documented as of this encounter Visit Diagnoses Not on filedocumented in this encounter Additional Health Concerns Infection Onset Date Last Indicated Resolved Time R/O COVID-19 06/02/2021 06/03/2021 06/03/2021 7:34 PM CDT R/O COVID-19 12/22/2022 12/22/2022 12/22/2022 12:2 5 PM CDT R/O COVID-19 09/07/2023 09/07/2023 09/07/2023 9:52 PM DENTAL PATIENT COORDINATOR documented as of this encounter Care Teams Plate Worker Helper Relationship Specialty Start Date End Date Kassy Jay MD [address] [phone] PCP - General Family Practice 12/04/22 documented as of this encounter
--- OUTSIDE RECORDS SUMMARY | 2025-08-02 20:13 | XMS_ITS | Encounter Summary ---
Author Organization [facility] Address [address] [place] [address] Care Team Providers Care Drawbench Operator Name Role Phone Kassy Jay MD Primary Care Provider [phone] Encounter Details Date Type Department Care Team ([facility] Contact Info) Description 08/27/2005 Outpatient Historical [facility] Pediatrics - [facility] [address] [facility] [address] [place] [address] [place] [address] [facility] [address] [place] [address] Social History Tobacco Use Types Packs/Day Years Used Date Smoking Tobacco: Never Assessed Comments Unknown Sex and Gender Information Value Date Recorded Sex Assigned at Not on file Legal Sex Female 4:02 AM NUCLEAR MONITORING TECHNICIAN Gender Identity Not on file Sexual Orientation Not on file documented as of this encounter Last Filed Vital Signs Vital Sign Reading Time Taken Comments Blood Pressure - - Pulse 102 08/27/2005 3:00 PM NUCLEAR MONITORING TECHNICIAN Temperature 36.8 C (98.3 F) 08/27/2005 3:00 PM NUCLEAR MONITORING TECHNICIAN Respiratory Rate 21 08/27/2005 3:00 PM NUCLEAR MONITORING TECHNICIAN Oxygen Saturation - - Inhaled Oxygen Concentration - - Weight 25.9 kg (57 lb) 08/27/2005 3:00 PM NUCLEAR MONITORING TECHNICIAN Height - - Body Mass Index - - documented in this encounter Plan of Treatment Upcoming Encounters Date Type Department Care Team (Late st Contact Info) Description 08/15/2025 1:30 PM NUCLEAR MONITORING TECHNICIAN Office Visit [facility] Primary Care - Michael Herrmann [address] [place] [phone] Kassy Jay MD [address] [place] [phone] 09/25/2025 8:30 AM NUCLEAR MONITORING TECHNICIAN Video Visit [facility] Adult Psychiatry [place] [address] [address] [place] [address] Argelia Law NP [address] [address] [place] [address] documented as of this encounter Visit Diagnoses Not on filedocumented in this encounter Additional Health Concerns Infection Onset Date Last Indicated Resolved Time R/O COVID-19 06/02/2021 06/03/2021 06/03/2021 7:34 PM CDT R/O COVID-19 12/22/2022 12/22/2022 12/22/2022 12:2 5 PM CDT R/O COVID-19 09/07/2023 09/07/2023 09/07/2023 9:52 PM NUCLEAR MONITORING TECHNICIAN documented as of this encounter Care Teams Drawbench Operator Relationship Specialty Start Date End Date Kassy Jay MD [address] [place] [address] [phone] PCP - General Family Practice 12/04/22 documented as of this encounter
--- OUTSIDE RECORDS SUMMARY | 2025-08-02 20:13 | XMS_ITS | Clinical Summary ---
Author Organization [facility] Address [address] [place] [address] Phone Care Team Providers Care Lmft Name Role Phone Kassy Jay MD Primary Care Provider [phone] Allergies Active Allergy Reactions Criticality Noted Date [...] menses 01/21/2017 Overview (04/15/2021): Overview: [facility]; has follow up with 02/06/17 Overview: Overview: Thinks from [facility]; has follow up with 02/06/17 Gastroesophageal reflux disease Asthma Elevated prolactin level Resolved Problems Problem Noted Date Diagnosed Date Resolved Date Adjustment disorder with mix ed disturbance of emotions and conduct 09/08/2023 03/22/2024 Axillary hyperhidrosis 06/17/202208/19 Overview (06/17/2022): Ref to derm, # given Drug reaction 06/17/2022 08/19/2023 Overview (06/17/2022): Consider possible drug reaction. Stop Cymbalta. Zyrtec & solumedrol given. Make appt with quantitative manager. Psychogenic nonepileptic seizure 12/16/2021 08/19/2023 Nightmares [...] STL ABSTRACTION Provider, Abstract 07/27/2025 7:30 AM BILINGUAL KINDERGARTEN TEACHER Video Visit [facility] Adult Psychiatry [place] [address] [place], [place] [address] Argelia Law NP Bipolar 1 disorder, mixed, partial remission (CMS/HCC) (Primary Dx); Insomnia, unspecified type; BARBIE (generalized anxiety disorder); Unspecified mood (affective) disorder; Borderline personality disorder (CMS/HCC); Attention deficit hyperactivity disorder (ADHD), predominantly inattentive type; Panic disorder; PTSD (post-traumatic stress disorder); Atypical anorexia nervosa 07/27/2025 [facility] Psychiatry [address] [address] [place] [address] Argelia Law NP Attention deficit hyperactivity disorder (ADHD), predominantly inattentive type 07/25/2025 External Device Data STL ABSTRACTION Provider, Abstract 07/19/2025 External Device Data STL ABSTRACTION Provider, Abstract 07/19/2025 External Device Data STL ABSTRACTION Provider, Abstract 07/05/2025 [facility] Psychiatry [address] [address] [place] [address] Argelia Law NP BARBIE (generalized anxiety disorder) 07/02/2025 [facility] Psychiatry [address] [address] [place] [address] Argelia Law NP Unspecified mood (affective) disorder 06/26/2025 9:00 AM CDT Video Visit [facility] Adult Psychiatry [place] [address] [place] [address] Argelia Law NP Bipolar 1 disorder, mixed, partial remission (CMS/HCC) (Primary Dx); Attention deficit hyperactivity disorder (ADHD), predominantly inattentive type; PTSD (post-traumatic stress disorder); BARBIE (generalized anxiety disorder); Panic disorder; Borderline personality disorder (CMS/HCC); Insomnia, unspecified type; Atypical anorexia nervosa; Unspecified mood (affective) disorder 06/26/2025 [facility] Psychiatry [address] [address] [place] [address] Argelia Law NP Attention deficit hyperactivity disorder (ADHD), predominantly inattentive type 06/20/2025 [facility] Psychiatry [address] [place] [address] Argelia Law NP Erroneous encounter-disregard 06/12/2025 2:00 PM CDT Video Visit [facility] Psychiatry [address] [place] [address] Argelia Law NP Bipolar 1 disorder, mixed, partial remission (CMS/HCC) (Primary Dx); BARBIE (generalized anxiety disorder); Borderline personality disorder (CMS/HCC); Attention deficit hyperactivity disorder (ADHD), predominantly inattentive type; Insomnia, unspecified type; Atypical anorexia nervosa; PTSD (post-traumatic stress disorder); Panic disorder; Unspecified mood (affective) disorder 06/12/2025 [facility] Psychiatry [address] [address] [place] [address] Argelia Law NP Attention deficit hyperactivity disorder (ADHD), predominantly inattentive type 06/07/2025 External Device Data STL ABSTRACTION Provider, Abstract 06/06/2025 External Device Data STL ABSTRACTION Provider, Abstract 06/02/2025 [facility] Psychiatry [address] [address] [place] [address] Argelia Law NP BARBIE (generalized anxiety disorder) 05/30/2025 External Device Data STL ABSTRACTION Provider, Abstract 05/29/2025 7:30 AM CDT Video Visit [facility] Psychiatry [address] [address] [place] [address] Argelia Law NP Attention deficit hyperactivity disorder (ADHD), predominantly inattentive type (Primary Dx); BARBIE (generalized anxiety disorder); Insomnia, unspecified type; Bipolar 1 disorder, mixed, partial remission (CMS/HCC); Borderline personality disorder (CMS/HCC); Atypical anorexia nervosa; PTSD (post-traumatic stress disorder); Panic disorder 05/29/2025 Refill [facility] Adult Psychiatry [address] [address] [place] [address] Argelia Law NP Attention deficit hyperactivity disorder (ADHD), predominantly inattentive type (Primary Dx) 05/24/2025 External Device Data STL ABSTRACTION Provider, Abstract 05/23/2025 Telephone [facility] Psychiatry [facility] and [address] [place] [id number] [facility] [place] [address] Argelia Law NP Medication Problem 05/18/2025 Refill [facility] Adult Psychiatry [address] [address] [place] [address] Argelia Law NP BARBIE (generalized anxiety disorder) 05/18/2025 [facility] Psychiatry [address] [address] [place] [address] Argelia Law NP Insomnia, unspecified type (Primary Dx) 05/09/2025 7:30 AM CDT Video Visit [facility] Psychiatry [address] [address] [place] [address] Argelia Law NP Bipolar 1 disorder, mixed, partial remission (CMS/HCC) (Primary Dx); Borderline personality disorder (CMS/HCC); BARBIE (generalized anxiety disorder); Atypical anorexia nervosa; Insomnia, unspecified type; PTSD (post-traumatic stress disorder); Attention deficit hyperactivity disorder (ADHD), predominantly inattentive type; Panic disorder 05/03/2025 [facility] Psychiatry [address] [place] [address] Argelia Law NP BARBIE (generalized anxiety disorder) [...] Augustin Love in 2011 from fall in snf No Known Problems Paternal Grandmother Celiac Disease [...] Never 02/09/2020 How often do you attend episcopalian or hindu serv ices? Never 02/09/2020 Do you belong to any clubs o r organizations such as episcopalian groups, unions, fraternal or athletic groups, or [...] on file Legal Sex Female 4:02 AM BILINGUAL KINDERGARTEN TEACHER Gender Identity Not on file Sexual [...] st Contact Info) Description 08/15/2025 1:30 PM BILINGUAL KINDERGARTEN TEACHER Office Visit [facility] [place] [address] Kassy Jay MD [address] [place] [phone] 09/25/2025 8:30 AM BILINGUAL KINDERGARTEN TEACHER Video Visit [facility] Adult Psychiatry [place] [address] [place] [phone] [place], Argelia Lopez NP [address] [address] [place] [address] Health Maintenance Due Date Last Done Comments [...] history exists Medical Devices Implanted Type Area Bookstore Manager Device Identifier Shelf Expiration Date Model / Serial / Lot Clip Ti Med/Lg 3200 - Csc - [id number] Implanted:Qty: 2 on 01/03/2025 by Tarik Cervantes DO at [facility] N/A: Abdomen TELEFLEX- WECK CLOSURE SYS 06/09/2029 [id number] / / [id number] Iud Insurance [facility] [employer] [id number] AETNA CHOICE POS II RX INFOCROSSING Medicaid RX [facility] [employer] RX [place] PLANS (INTERNAL) [facility] Internal Plans [facility] HEALTHY [facility] MEDICAID Advance Directives For more information, please contact: [phone] * Full Code (Latest Code Status on [...] 8:57 PM 10/10/2021 1:06 PM Care Teams Lmft Relationship Specialty Start Date End Date Kassy Jay MD [address] [place] [address] PCP - General Family Practice 12/04/22
--- OUTSIDE RECORDS SUMMARY | 2025-08-02 20:13 | XMS_ITS | Encounter Summary ---
Author Organization [facility] Address [address] [place] [address] Care Team Providers Care Hand Sewer Name Role Phone Kassy Jay MD Primary Care Provider [phone] Encounter Details Date Type Department Care Team (Latest Contact Info) Description 01/01/2006 Outpatient Historical [facility] Gustavo Sims Extrinsic Asthma, Unspecified (Primary Dx) Social History Tobacco Use Types Packs/Day Years Used Date Smoking Tobacco: Never Assessed Comments Unknown Sex and Gender Information Value Date Recorded Sex Assigned at Not on file Legal Sex Female 4:02 AM ELECTRICAL ENGINEERING MANAGER Gender Identity Not on file Sexual Orientation Not on file documented as of this encounter Plan of Treatment Upcoming Encounters Date Type Department Care Team (Late st Contact Info) Description 08/15/2025 1:30 PM ELECTRICAL ENGINEERING MANAGER Office Visit [facility] Primary Care - [place] [address] [place] [address] Kassy Jay MD [address] [place] [phone] 09/25/2025 8:30 AM ELECTRICAL ENGINEERING MANAGER Video Visit [facility] Adult Psychiatry [place] [address] [address] [place] [phone] Argelia Law NP [address] [address] [place] [address] documented as of this encounter Visit Diagnoses Diagnosis Extrinsic asthma, unspecified- Primary documented in this encounter Additional Health Concerns Infection Onset Date Last Indicated Resolved Time R/O COVID-19 06/02/2021 06/03/2021 06/03/2021 7:34 PM CDT R/O COVID-19 12/22/2022 12/22/2022 12/22/2022 12:2 5 PM CDT R/O COVID-19 09/07/2023 09/07/2023 09/07/2023 9:52 PM ELECTRICAL ENGINEERING MANAGER documented as of this encounter Care Teams Hand Sewer Relationship Specialty Start Date End Date Kassy Jay MD [address] [place] [phone] PCP - General Family Practice 12/04/22 documented as of this encounter
--- OUTSIDE RECORDS SUMMARY | 2025-08-02 20:13 | XMS_ITS | Encounter Summary ---
Author Organization [facility] Address [address] [place] [address] Care Team Providers Care Supervisor Public Message Service Name Role Phone Kassy Jay MD Primary Care Provider [phone] Encounter Details Date Type Department Care Team (Late Contact Info) Description 1998 Outpatient Historical [facility] MAURICIO Yadav, Alley Cid MD [address] [place] [address] Social History Tobacco Use Types Packs/Day Years Used Date Smoking Tobacco: Never Assessed Comments Unknown Sex and Gender Information Value Date Recorded Sex Assigned at Not on file Legal Sex Female 4:02 AM OBSERVER HELPER Gender Identity Not on file Sexual Orientation Not on file documented as of this encounter Plan of Treatment Upcoming Encounters Date Type Department Care Team (Late Contact Info) Description 08/15/2025 1:30 PM OBSERVER HELPER Office Visit [facility] Primary Care - Kirby [place] [address] [address] [address] [phone] Kassy Jay MD [address] [place] [address] [phone] 09/25/2025 8:30 AM OBSERVER HELPER Video Visit [facility] Adult Psychiatry [place] [address] [place] [phone] Argelia Law, [place] [address] [address] [place] [address] documented as of this encounter Visit Diagnoses Not on filedocumented in this encounter Additional Health Concerns Infection Onset Date Last Indicated Resolved Time R/O COVID-19 06/02/2021 06/03/2021 06/03/2021 7:34 PM CDT R/O COVID-19 12/22/2022 12/22/2022 12/22/2022 12:2 5 PM CDT R/O COVID-19 09/07/2023 09/07/2023 09/07/2023 9:52 PM OBSERVER HELPER documented as of this encounter Care Teams Supervisor Public Message Service Relationship Specialty Start Date End Date Kassy Jay MD [address] [place] [place] [phone] PCP - General Family Practice 12/04/22 documented as of this encounter
--- OUTSIDE RECORDS SUMMARY | 2025-08-02 20:13 | XMS_ITS | Encounter Summary ---
Author Organization [facility] Address [address] [place] [address] Care Team Providers Care Machinist Linotype Name Role Phone Kassy Jay MD Primary Care Provider [phone] Encounter Details Date Type Department Care Team (Late Contact Info) Description 04/19/1999 Outpatient Historical [facility] Pediatrics - [facility] [address] [place] [address] Darren Tabor MD NO ADDRESS ON FILE Social History Tobacco Use Types Packs/Day Years Used Date Smoking Tobacco: Never Assessed Comments Unknown Sex and Gender Information Value Date Recorded Sex Assigned at Not on file Legal Sex Female 4:02 AM CATALOGUE MAKER Gender Identity Not on file Sexual Orientation Not on file documented as of this encounter Plan of Treatment Upcoming Encounters Date Type Department Care Team (Late Contact Info) Description 08/15/2025 1:30 PM CATALOGUE MAKER Office Visit [facility] Primary Care - [place] [address] [address] [phone] Kassy Jay MD [address] [place] [address] [phone] 09/25/2025 8:30 AM CATALOGUE MAKER Video Visit [facility] [address]iatry [address] [phone] Argelia Law, [place] [address] [address] [place] [address] documented as of this encounter Visit Diagnoses Not on filedocumented in this encounter Additional Health Concerns Infection Onset Date Last Indicated Resolved Time R/O COVID-19 06/02/2021 06/03/2021 06/03/2021 7:34 PM CDT R/O COVID-19 12/22/2022 12/22/2022 12/22/2022 12:2 5 PM CDT R/O COVID-19 09/07/2023 09/07/2023 09/07/2023 9:52 PM CATALOGUE MAKER documented as of this encounter Care Teams Machinist Linotype Relationship Specialty Start Date End Date Kassy Jay MD [address] [place] [phone] PCP - General Family Practice 12/04/22 documented as of this encounter
--- OUTSIDE RECORDS SUMMARY | 2025-08-02 20:13 | XMS_ITS | Encounter Summary ---
Author Organization [facility] Address [address] [place] [address] Care Team Providers Care Construction Ironworker Helper Name Role Phone Kassy Jay MD Primary Care Provider [phone] Encounter Details Date Type Department Care Team (Late Contact Info) Description 03/29/2001 Outpatient Historical [facility] Pediatrics - [facility] [address] [facility] [address] [place] [address] [place] [address] [place] [address] Social History Tobacco Use Types Packs/Day Years Used Date Smoking Tobacco: Never Assessed Comments Unknown Sex and Gender Information Value Date Recorded Sex Assigned at Not on file Legal Sex Female 4:02 AM COOK RELIEF Gender Identity Not on file Sexual Orientation Not on file documented as of this encounter Plan of Treatment Upcoming Encounters Date Type Department Care Team (Late Contact Info) Description 08/15/2025 1:30 PM COOK RELIEF Office Visit [facility] Primary Care - [place] [address] [address] [phone] Kassy Jay MD [address] [address] [phone] 09/25/2025 8:30 AM COOK RELIEF Video Visit [facility] Adult Psychiatry [place] [address] [address] [place] [phone] Argelia Law NP [address] [address] [place] [address] documented as of this encounter Visit Diagnoses Not on filedocumented in this encounter Additional Health Concerns Infection Onset Date Last Indicated Resolved Time R/O COVID-19 06/02/2021 06/03/2021 06/03/2021 7:34 PM CDT R/O COVID-19 12/22/2022 12/22/2022 12/22/2022 12:2 5 PM CDT R/O COVID-19 09/07/2023 09/07/2023 09/07/2023 9:52 PM COOK RELIEF documented as of this encounter Care Teams Construction Ironworker Helper Relationship Specialty Start Date End Date Kassy Jay MD [address] [place] [address] [phone] PCP - General Family Practice 12/04/22 documented as of this encounter
--- OUTSIDE RECORDS SUMMARY | 2025-08-02 20:13 | XMS_ITS | Encounter Summary ---
Author Organization [facility] Address [address] [place] [address] Care Team Providers Care Costumed Character Entertainer Name Role Phone Kassy Jay MD Primary Care Provider [phone] Encounter Details Date Type Department Care Team (Late Contact Info) Description 1998 Outpatient Historical [facility] Pediatrics - [facility] [address] [place] [address] Darren Tabor MD NO ADDRESS ON FILE Social History Tobacco Use Types Packs/Day Years Used Date Smoking Tobacco: Never Assessed Comments Unknown Sex and Gender Information Value Date Recorded Sex Assigned at Not on file Legal Sex Female 4:02 AM HEAD OF BUSINESS DEVELOPMENT Gender Identity Not on file Sexual Orientation Not on file documented as of this encounter Plan of Treatment Upcoming Encounters Date Type Department Care Team (Late Contact Info) Description 08/15/2025 1:30 PM HEAD OF BUSINESS DEVELOPMENT Office Visit [facility] Primary Care - [place] [address] [address] [phone] Kassy Jay MD [address] [place] [address] [phone] 09/25/2025 8:30 AM HEAD OF BUSINESS DEVELOPMENT Video Visit [facility] Adult Psychiatry [address] [phone] Argelia Law, [place] [address] [address] [place] [address] documented as of this encounter Visit Diagnoses Not on filedocumented in this encounter Additional Health Concerns Infection Onset Date Last Indicated Resolved Time R/O COVID-19 06/02/2021 06/03/2021 06/03/2021 7:34 PM CDT R/O COVID-19 12/22/2022 12/22/2022 12/22/2022 12:2 5 PM CDT R/O COVID-19 09/07/2023 09/07/2023 09/07/2023 9:52 PM HEAD OF BUSINESS DEVELOPMENT documented as of this encounter Care Teams Costumed Character Entertainer Relationship Specialty Start Date End Date Kassy Jay MD [address] [place] [phone] PCP - General Family Practice 12/04/22 documented as of this encounter
--- OUTSIDE RECORDS SUMMARY | 2025-08-02 20:13 | XMS_ITS | Encounter Summary ---
Author Organization [facility] Address [address] [place] [address] Care Team Providers Care Customer Relations Specialist Name Role Phone Kassy Jay MD Primary Care Provider [phone] Encounter Details Date Type Department Care Team (Late Contact Info) Description 12/06/2007 Outpatient Historical [facility] Pediatrics - [facility] [address] [address] [place] [address] [place] [address] [place] [address] Social History Tobacco Use Types Packs/Day Years Used Date Smoking Tobacco: Never Assessed Comments Unknown Sex and Gender Information Value Date Recorded Sex Assigned at Not on file Legal Sex Female 4:02 AM ASSISTANT BOILER OPERATOR Gender Identity Not on file Sexual Orientation Not on file documented as of this encounter Plan of Treatment Upcoming Encounters Date Type Department Care Team (Late Contact Info) Description 08/15/2025 1:30 PM ASSISTANT BOILER OPERATOR Office Visit [facility] Primary Care - [address] [phone] Kassy Jay MD [address] [address] [phone] 09/25/2025 8:30 AM ASSISTANT BOILER OPERATOR Video Visit [facility] Adult Psychiatry [place] [address] [address] [place] [phone] Argelia Law NP [address] [address] [place] [address] documented as of this encounter Visit Diagnoses Not on filedocumented in this encounter Additional Health Concerns Infection Onset Date Last Indicated Resolved Time R/O COVID-19 06/02/2021 06/03/2021 06/03/2021 7:34 PM CDT R/O COVID-19 12/22/2022 12/22/2022 12/22/2022 12:2 5 PM CDT R/O COVID-19 09/07/2023 09/07/2023 09/07/2023 9:52 PM ASSISTANT BOILER OPERATOR documented as of this encounter Care Teams Customer Relations Specialist Relationship Specialty Start Date End Date Kassy Jay MD [address] [place] [address] [phone] PCP - General Family Practice 12/04/22 documented as of this encounter
[2025-08-02 20:20] VITALS: BP 126/72; PULSE 88; RESP 16; O2SAT 98
--- NOTE | 2025-08-02 20:41 | PC.NURSE ---
Pt. walked out of room again. Pt. states she wants to leave. Pt. is now A&Ox4. Dr. Rouse notified and to bedside to reassess her. Per Dr. Rouse, pt. ok to leave as long as she has a ride home. Pt. states she has no friends or family to call and no money to pay for transport. [place] security called [facility] security since pt. is a student there. Security to pick pt. up at [place]. Pt. notified. Pt. offered food and drink but she declined. Pt. self removed c-collar. Per Dr. Rouse, c-collar does not need to be reapplied d/t negative imaging.
[2025-08-02 20:45] LABS: Alanine Aminotransferase 24 U/L (6-35); Albumin Level 4.9 g/dL (3.5-5.1); Alkaline Phosphatase 68 U/L (38-126); Anion Gap 12 mmol/L (4-12); Aspartate Amino Transferase 47 U/L (14-36); Bilirubin,Total 0.3 mg/dL (0.2-1.3); Blood Urea Nitrogen 13 mg/dL (7-17); Calcium 9.9 mg/dL (8.4-10.2); Carbon Dioxide 20 mmol/L (22-30); Chloride 104 mmol/L (98-107); Estimated CRCL calculation 134 ml/min; Estimated Glomerular Filt Rate > 60; Glucose 97 mg/dL (65-110); Potassium 3.8 mmol/L (3.4-5.0); Sodium 136 mmol/L (137-145); Total Protein 8.0 g/dL (6.3-8.2)
== END 2025-08-02 21:03 | disposition home or self-care (01) ==
PROVIDERS: Student in an Organized Health Care Education/Training Program; Emergency Provider Emergency Medicine
DX: S09.90XA Unspecified injury of head, initial encounter (principal); K21.9 Gastro-esophageal reflux disease without esophagitis; F41.9 Anxiety disorder, unspecified; F31.9 Bipolar disorder, unspecified; Z79.899 Other long term (current) drug therapy; W22.8XXA Striking against or struck by other objects, initial encounter
CPT/HCPCS: 36415; 70450; 72125; 80053; 83605; 85025; 93005; 99284

== ENCOUNTER 2025-08-21 12:08 | Emergency (ER) | payer MEDICAID, SELFPAY ==
[2025-08-21 12:13] VITALS: BP 116/79; PULSE 74; RESP 14; TEMP 36.4; O2SAT 97
[2025-08-21 13:09] VITALS: BP 116/78; PULSE 73; RESP 14; O2SAT 98
--- OUTSIDE RECORDS SUMMARY | 2025-08-21 13:59 | XMS_ITS | Encounter Summary ---
Author Organization [facility] Address [address] [place] [address] Care Team Providers Care Statue Maker Name Role Phone Kassy Jay MD Primary Care Provider [phone] Encounter Details Date Type Department Care Team (Late Contact Info) Description 09/02/2004 Outpatient Historical [facility] Pediatrics - [facility] [address] [facility] [address] [facility] [address] [place] [address] [place] [address] [place] [address] Social History Tobacco Use Types Packs/Day Years Used Date Smoking Tobacco: Never Assessed Comments Unknown Sex and Gender Information Value Date Recorded Sex Assigned at Not on file Legal Sex Female 4:02 AM BILINGUAL RECEPTIONIST Gender Identity Not on file Sexual Orientation Not on file documented as of this encounter Plan of Treatment Upcoming Encounters Date Type Department Care Team (Late Contact Info) Description 09/25/2025 8:30 AM BILINGUAL RECEPTIONIST Video Visit [facility] Adult Psychiatry [place] [address] [phone] Argelia Law NP [address] [address] documented as of this encounter Visit Diagnoses Not on filedocumented in this encounter Additional Health Concerns Infection Onset Date Last Indicated Resolved Time R/O COVID-19 06/02/2021 06/03/2021 06/03/2021 7:34 PM CDT R/O COVID-19 12/22/2022 12/22/2022 12/22/2022 12:2 5 PM CDT R/O COVID-19 09/07/2023 09/07/2023 09/07/2023 9:52 PM BILINGUAL RECEPTIONIST documented as of this encounter Care Teams Statue Maker Relationship Specialty Start Date End Date Kassy Jay MD [address] [place] [address] [phone] PCP - General Family Practice 12/04/22 documented as of this encounter
--- OUTSIDE RECORDS SUMMARY | 2025-08-21 13:59 | XMS_ITS | Encounter Summary ---
Author Organization [facility] Address [address] [place] [address] Care Team Providers Care Division Roadmaster Name Role Phone Kassy Jay MD Primary Care Provider [phone] Encounter Details Date Type Department Care Team (Late st Contact Info) Description 08/15/2025 Results Follow-Up [facility] Primary Care - Kirby Herrmann [address] [address] Kassy Jay MD [address] [place] [address] POC INFLUENZA A/B AND COVID-19 ANTIGENS, CBC WITH DIFFERENTIAL, COMPREHENSIVE METABOLIC PANEL, VITAMIN B12 AND FOLATE Social History Tobacco Use Types Packs/Day Years [...] Never 02/09/2020 How often do you attend adventist or jew serv ices? Never 02/09/2020 Do you belong to any clubs o r organizations such as adventist groups, unions, fraternal or athletic groups, or [...] on file Legal Sex Female 4:02 AM CREATIVE DIRECTOR Gender Identity Not on file Sexual Orientation Not on file Occupation Industry Job Start Date Job End Date student Not on file Not on file Not on file documented as of this encounter Plan of Treatment Upcoming Encounters Date Type Department Care Team (Late st Contact Info) Description 09/25/2025 8:30 AM CREATIVE DIRECTOR Video Visit [facility] Adult Psychiatry [place] [phone] [phone] Argelia Law NP [address] [address] documented as of this encounter Visit Diagnoses Not on filedocumented in this encounter Care Teams Division Roadmaster Relationship Specialty Start Date End Date Kassy Jay MD [address] [facility] [place] [phone] PCP - General Family Practice 12/04/22 documented as of this encounter
--- OUTSIDE RECORDS SUMMARY | 2025-08-21 13:59 | XMS_ITS | Encounter Summary ---
Author Organization [facility] Address [address] [place] [address] Care Team Providers Care Asset Protection Lead Name Role Phone Kassy Jay MD Primary Care Provider [phone] Encounter Details Date Type Department Care Team (Late Contact Info) Description 03/27/2004 Outpatient Historical [facility] Childrens Respiratory and Sleep Medicine [address] [facility] [address] [phone] Gustavo Sims Social History Tobacco Use Types Packs/Day Years Used Date Smoking Tobacco: Never Assessed Comments Unknown Sex and Gender Information Value Date Recorded Sex Assigned at Not on file Legal Sex Female 4:02 AM OPERATING MANAGER Gender Identity Not on file Sexual Orientation Not on file documented as of this encounter Plan of Treatment Upcoming Encounters Date Type Department Care Team (Late Contact Info) Description 09/25/2025 8:30 AM OPERATING MANAGER Video Visit [facility] Adult Psychiatry [place] [address] [phone] Argelia Law NP [address] [phone] documented as of this encounter Visit Diagnoses Not on filedocumented in this encounter Additional Health Concerns Infection Onset Date Last Indicated Resolved Time R/O COVID-19 06/02/2021 06/03/2021 06/03/2021 7:34 PM CDT R/O COVID-19 12/22/2022 12/22/2022 12/22/2022 12:2 5 PM CDT R/O COVID-19 09/07/2023 09/07/2023 09/07/2023 9:52 PM OPERATING MANAGER documented as of this encounter Care Teams Asset Protection Lead Relationship Specialty Start Date End Date Kassy Jay MD [address] [facility] [place] [phone] PCP - General Family Practice 12/04/22 documented as of this encounter
--- OUTSIDE RECORDS SUMMARY | 2025-08-21 13:59 | XMS_ITS | Encounter Summary ---
Author Organization [facility] Address [address] [place] [address] Care Team Providers Care Security Lead Name Role Phone Kassy Jay MD Primary Care Provider [phone] Encounter Details Date Type Department Care Team (Late Contact Info) Description 02/13/2005 Outpatient Historical [facility] Childrens Respiratory and Sleep Medicine [address] [facility] [address] [phone] Gustavo Sims Social History Tobacco Use Types Packs/Day Years Used Date Smoking Tobacco: Never Assessed Comments Unknown Sex and Gender Information Value Date Recorded Sex Assigned at Not on file Legal Sex Female 4:02 AM PRACTICE ADVISOR Gender Identity Not on file Sexual Orientation Not on file documented as of this encounter Plan of Treatment Upcoming Encounters Date Type Department Care Team (Late Contact Info) Description 09/25/2025 8:30 AM PRACTICE ADVISOR Video Visit [facility] Adult Psychiatry [place] [address] [phone] Argelia Law NP [address] [phone] documented as of this encounter Visit Diagnoses Not on filedocumented in this encounter Additional Health Concerns Infection Onset Date Last Indicated Resolved Time R/O COVID-19 06/02/2021 06/03/2021 06/03/2021 7:34 PM CDT R/O COVID-19 12/22/2022 12/22/2022 12/22/2022 12:2 5 PM CDT R/O COVID-19 09/07/2023 09/07/2023 09/07/2023 9:52 PM PRACTICE ADVISOR documented as of this encounter Care Teams Security Lead Relationship Specialty Start Date End Date Kassy Jay MD [address] [facility] [place] [phone] PCP - General Family Practice 12/04/22 documented as of this encounter
--- OUTSIDE RECORDS SUMMARY | 2025-08-21 13:59 | XMS_ITS | Encounter Summary ---
Author Organization [facility] Address [address] [place] [address] Care Team Providers Care Cant Hooker Name Role Phone Kassy Jay MD Primary Care Provider [phone] Encounter Details Date Type Department Care Team (Late Contact Info) Description 12/15/2003 Outpatient Historical [facility] Childrens Respiratory and Sleep Medicine [address] [phone] Gustavo Sims Social History Tobacco Use Types Packs/Day Years Used Date Smoking Tobacco: Never Assessed Comments Unknown Sex and Gender Information Value Date Recorded Sex Assigned at Not on file Legal Sex Female 4:02 AM PIN TICKET MACHINE OPERATOR Gender Identity Not on file Sexual Orientation Not on file documented as of this encounter Plan of Treatment Upcoming Encounters Date Type Department Care Team (Late Contact Info) Description 09/25/2025 8:30 AM PIN TICKET MACHINE OPERATOR Video Visit [facility] Adult Psychiatry Varinder [address] [phone] Argelia Law NP [address] [phone] documented as of this encounter Visit Diagnoses Not on filedocumented in this encounter Additional Health Concerns Infection Onset Date Last Indicated Resolved Time R/O COVID-19 06/02/2021 06/03/2021 06/03/2021 7:34 PM CDT R/O COVID-19 12/22/2022 12/22/2022 12/22/2022 12:2 5 PM CDT R/O COVID-19 09/07/2023 09/07/2023 09/07/2023 9:52 PM PIN TICKET MACHINE OPERATOR documented as of this encounter Care Teams Cant Hooker Relationship Specialty Start Date End Date Kassy Jay MD [address] [facility] [place] [phone] PCP - General Family Practice 12/04/22 documented as of this encounter
--- OUTSIDE RECORDS SUMMARY | 2025-08-21 13:59 | XMS_ITS | Encounter Summary ---
Author Organization [facility] Address [address] [place] [address] Care Team Providers Care Mica Inspector Name Role Phone Kassy Jay MD Primary Care Provider [phone] Encounter Details Date Type Department Care Team (Latest Contact Info) Description 10/09/2003 Outpatient Historical [facility] Gustavo Sims ASTHMA UNSPECIFIED (Primary Dx) Social History Tobacco Use Types Packs/Day Years Used Date Smoking Tobacco: Never Assessed Comments Unknown Sex and Gender Information Value Date Recorded Sex Assigned at Not on file Legal Sex Female 4:02 AM TINWARE LITHOGRAPH PRESS OPERATOR Gender Identity Not on file Sexual Orientation Not on file documented as of this encounter Plan of Treatment Upcoming Encounters Date Type Department Care Team (Late st Contact Info) Description 09/25/2025 8:30 AM TINWARE LITHOGRAPH PRESS OPERATOR Video Visit [facility] Adult Psychiatry Var[place] [address] [address] [place] [address] [place] NP [address] [place] [address] documented as of this encounter Visit Diagnoses Diagnosis Unspecified asthma(493.90)- Primary Unspecified asthma documented in this encounter Additional Health Concerns Infection Onset Date Last Indicated Resolved Time R/O COVID-19 06/02/2021 06/03/2021 06/03/2021 7:34 PM CDT R/O COVID-19 12/22/2022 12/22/2022 12/22/2022 12:2 5 PM CDT R/O COVID-19 09/07/2023 09/07/2023 09/07/2023 9:52 PM TINWARE LITHOGRAPH PRESS OPERATOR documented as of this encounter Care Teams Mica Inspector Relationship Specialty Start Date End Date Kassy Jay MD [address] [place] [phone] PCP - General Family Practice 12/04/22 documented as of this encounter
--- OUTSIDE RECORDS SUMMARY | 2025-08-21 13:59 | XMS_ITS | Encounter Summary ---
Author Organization [facility] Address [address] [place] [address] Care Team Providers Care Care Worker Name Role Phone Kassy Jay MD Primary Care Provider [phone] Encounter Details Date Type Department Care Team (Late Contact Info) Description 04/25/2003 Outpatient Historical [facility] Pediatrics - [facility] [address] [place] [address] [place] [address] [address] [place] [address] Social History Tobacco Use Types Packs/Day Years Used Date Smoking Tobacco: Never Assessed Comments Unknown Sex and Gender Information Value Date Recorded Sex Assigned at Not on file Legal Sex Female 4:02 AM HATCHERY EMPLOYEE Gender Identity Not on file Sexual Orientation Not on file documented as of this encounter Plan of Treatment Upcoming Encounters Date Type Department Care Team (Late Contact Info) Description 09/25/2025 8:30 AM HATCHERY EMPLOYEE Video Visit [facility] Adult Psychiatry Var[place] [address] [phone] Argelia Law NP [address] [address] documented as of this encounter Visit Diagnoses Not on filedocumented in this encounter Additional Health Concerns Infection Onset Date Last Indicated Resolved Time R/O COVID-19 06/02/2021 06/03/2021 06/03/2021 7:34 PM CDT R/O COVID-19 12/22/2022 12/22/2022 12/22/2022 12:2 5 PM CDT R/O COVID-19 09/07/2023 09/07/2023 09/07/2023 9:52 PM HATCHERY EMPLOYEE documented as of this encounter Care Teams Care Worker Relationship Specialty Start Date End Date Kassy Jay MD [address] [place] [phone] PCP - General Family Practice 12/04/22 documented as of this encounter
--- OUTSIDE RECORDS SUMMARY | 2025-08-21 13:59 | XMS_ITS | Encounter Summary ---
Author Organization Address [address] [place] [address] Care Team Providers Care Coremaker Bench Name Role Phone Kassy Jay MD Primary Care Provider [phone] Encounter Details Date Type Department Care Team (Late Contact Info) Description 12/05/2002 Outpatient Historical [facility] Childrens Respiratory and Sleep Medicine [address] [phone] Gustavo Sims Social History Tobacco Use Types Packs/Day Years Used Date Smoking Tobacco: Never Assessed Comments Unknown Sex and Gender Information Value Date Recorded Sex Assigned at Not on file Legal Sex Female 4:02 AM COMMERCIAL REPRESENTATIVE Gender Identity Not on file Sexual Orientation Not on file documented as of this encounter Plan of Treatment Upcoming Encounters Date Type Department Care Team (Late Contact Info) Description 09/25/2025 8:30 AM COMMERCIAL REPRESENTATIVE Video Visit [facility] Adult Psychiatry Var[place] [address] [phone] Argelia Law NP [address] [id number] documented as of this encounter Visit Diagnoses Not on filedocumented in this encounter Additional Health Concerns Infection Onset Date Last Indicated Resolved Time R/O COVID-19 06/02/2021 06/03/2021 06/03/2021 7:34 PM CDT R/O COVID-19 12/22/2022 12/22/2022 12/22/2022 12:2 5 PM CDT R/O COVID-19 09/07/2023 09/07/2023 09/07/2023 9:52 PM COMMERCIAL REPRESENTATIVE documented as of this encounter Care Teams Coremaker Bench Relationship Specialty Start Date End Date Kassy Jay MD [address] [facility] [place] [phone] PCP - General Family Practice 12/04/22 documented as of this encounter
--- OUTSIDE RECORDS SUMMARY | 2025-08-21 13:59 | XMS_ITS | Encounter Summary ---
Author Organization [facility] Address [address] [place] [address] Care Team Providers Care Lockstitch Binder Name Role Phone Kassy Jay MD Primary Care Provider [phone] Encounter Details Date Type Department Care Team (Late Contact Info) Description 03/27/2004 Outpatient Historical [facility] Childrens Respiratory and Sleep Medicine [address] [phone] Gustavo Sims Social History Tobacco Use Types Packs/Day Years Used Date Smoking Tobacco: Never Assessed Comments Unknown Sex and Gender Information Value Date Recorded Sex Assigned at Not on file Legal Sex Female 4:02 AM VP ANALYSIS Gender Identity Not on file Sexual Orientation Not on file documented as of this encounter Plan of Treatment Upcoming Encounters Date Type Department Care Team (Late Contact Info) Description 09/25/2025 8:30 AM VP ANALYSIS Video Visit [facility] Adult Psychiatry Var[place] [address] [phone] Argelia Law NP [address] [phone] documented as of this encounter Visit Diagnoses Not on filedocumented in this encounter Additional Health Concerns Infection Onset Date Last Indicated Resolved Time R/O COVID-19 06/02/2021 06/03/2021 06/03/2021 7:34 PM CDT R/O COVID-19 12/22/2022 12/22/2022 12/22/2022 12:2 5 PM CDT R/O COVID-19 09/07/2023 09/07/2023 09/07/2023 9:52 PM VP ANALYSIS documented as of this encounter Care Teams Lockstitch Binder Relationship Specialty Start Date End Date Kassy Jay MD [address] [facility] [place] [phone] PCP - General Family Practice 12/04/22 documented as of this encounter
--- OUTSIDE RECORDS SUMMARY | 2025-08-21 13:59 | XMS_ITS | Encounter Summary ---
Author Organization [facility] Address [address] [place] [address] Care Team Providers Care Sash Sticker Name Role Phone Kassy Jay MD Primary Care Provider [phone] Encounter Details Date Type Department Care Team (Late Contact Info) Description 02/13/2005 Outpatient Historical [facility] Childrens Respiratory and Sleep Medicine [address] [facility] [address] Gustavo Sims Social History Tobacco Use Types Packs/Day Years Used Date Smoking Tobacco: Never Assessed Comments Unknown Sex and Gender Information Value Date Recorded Sex Assigned at Not on file Legal Sex Female 4:02 AM PLASTIC EXTRUSION OPERATOR Gender Identity Not on file Sexual Orientation Not on file documented as of this encounter Plan of Treatment Upcoming Encounters Date Type Department Care Team (Late Contact Info) Description 09/25/2025 8:30 AM PLASTIC EXTRUSION OPERATOR Video Visit [facility] Adult Psychiatry Varinder [address] [phone] Argelia Law NP [address] [phone] documented as of this encounter Visit Diagnoses Not on filedocumented in this encounter Additional Health Concerns Infection Onset Date Last Indicated Resolved Time R/O COVID-19 06/02/2021 06/03/2021 06/03/2021 7:34 PM CDT R/O COVID-19 12/22/2022 12/22/2022 12/22/2022 12:2 5 PM CDT R/O COVID-19 09/07/2023 09/07/2023 09/07/2023 9:52 PM PLASTIC EXTRUSION OPERATOR documented as of this encounter Care Teams Sash Sticker Relationship Specialty Start Date End Date Kassy Jay MD [address] [facility] [place] [phone] PCP - General Family Practice 12/04/22 documented as of this encounter
--- OUTSIDE RECORDS SUMMARY | 2025-08-21 13:59 | XMS_ITS | Encounter Summary ---
Author Organization [facility] Address [address] [place] [address] Care Team Providers Care Chopper Gun Operator Name Role Phone Kassy Jay MD Primary Care Provider [phone] Encounter Details Date Type Department Care Team (Latest Contact Info) Description 12/15/2003 Outpatient Historical [facility] Gustavo Sims ASTHMA UNSPECIFIED (Primary Dx) Social History Tobacco Use Types Packs/Day Years Used Date Smoking Tobacco: Never Assessed Comments Unknown Sex and Gender Information Value Date Recorded Sex Assigned at Not on file Legal Sex Female 4:02 AM SUPERVISOR PUBLICATIONS PRODUCTION Gender Identity Not on file Sexual Orientation Not on file documented as of this encounter Plan of Treatment Upcoming Encounters Date Type Department Care Team (Late st Contact Info) Description 09/25/2025 8:30 AM SUPERVISOR PUBLICATIONS PRODUCTION Video Visit [facility] Adult Psychiatry Varinder [address] [address] [place] [address] [place] [address] [place] [address] documented as of this encounter Visit Diagnoses Diagnosis Unspecified asthma(493.90)- Primary Unspecified asthma documented in this encounter Additional Health Concerns Infection Onset Date Last Indicated Resolved Time R/O COVID-19 06/02/2021 06/03/2021 06/03/2021 7:34 PM CDT R/O COVID-19 12/22/2022 12/22/2022 12/22/2022 12:2 5 PM CDT R/O COVID-19 09/07/2023 09/07/2023 09/07/2023 9:52 PM SUPERVISOR PUBLICATIONS PRODUCTION documented as of this encounter Care Teams Chopper Gun Operator Relationship Specialty Start Date End Date Kassy Jay MD [address] [place] [phone] PCP - General Family Practice 12/04/22 documented as of this encounter
--- OUTSIDE RECORDS SUMMARY | 2025-08-21 13:59 | XMS_ITS | Encounter Summary ---
Author Organization [facility] Address [address] [place] [address] Care Team Providers Care Woodyard Operator Name Role Phone Kassy Jay MD Primary Care Provider [phone] Encounter Details Date Type Department Care Team (Late Contact Info) Description 02/10/2003 Outpatient Historical [facility] Pediatrics - [facility] [address] [place] [address] [place] [address] [place] [address] Social History Tobacco Use Types Packs/Day Years Used Date Smoking Tobacco: Never Assessed Comments Unknown Sex and Gender Information Value Date Recorded Sex Assigned at Not on file Legal Sex Female 4:02 AM CONSUMER CREDIT COUNSELOR Gender Identity Not on file Sexual Orientation Not on file documented as of this encounter Plan of Treatment Upcoming Encounters Date Type Department Care Team (Late Contact Info) Description 09/25/2025 8:30 AM CONSUMER CREDIT COUNSELOR Video Visit [facility] Adult Psychiatry Var[place] [address] [phone] Argelia Law NP [address] [address] documented as of this encounter Visit Diagnoses Not on filedocumented in this encounter Additional Health Concerns Infection Onset Date Last Indicated Resolved Time R/O COVID-19 06/02/2021 06/03/2021 06/03/2021 7:34 PM CDT R/O COVID-19 12/22/2022 12/22/2022 12/22/2022 12:2 5 PM CDT R/O COVID-19 09/07/2023 09/07/2023 09/07/2023 9:52 PM CONSUMER CREDIT COUNSELOR documented as of this encounter Care Teams Woodyard Operator Relationship Specialty Start Date End Date Kassy Jay MD [address] [place] [phone] PCP - General Family Practice 12/04/22 documented as of this encounter
--- OUTSIDE RECORDS SUMMARY | 2025-08-21 13:59 | XMS_ITS | Encounter Summary ---
Author Organization [facility] Address [address] [place] [address] Care Team Providers Care Planer Stone Name Role Phone Kassy Jay MD Primary Care Provider [phone] Encounter Details Date Type Department Care Team (Late Contact Info) Description 09/30/2002 Outpatient Historical [facility] Pediatrics - [facility] [address] [place] [address] [place] [address] [place] [address] Social History Tobacco Use Types Packs/Day Years Used Date Smoking Tobacco: Never Assessed Comments Unknown Sex and Gender Information Value Date Recorded Sex Assigned at Not on file Legal Sex Female 4:02 AM WELD ENGINEER Gender Identity Not on file Sexual Orientation Not on file documented as of this encounter Plan of Treatment Upcoming Encounters Date Type Department Care Team (Late Contact Info) Description 09/25/2025 8:30 AM WELD ENGINEER Video Visit [facility] Adult Psychiatry Var[place] [address] [phone] Argelia Law NP [address] [address] documented as of this encounter Visit Diagnoses Not on filedocumented in this encounter Additional Health Concerns Infection Onset Date Last Indicated Resolved Time R/O COVID-19 06/02/2021 06/03/2021 06/03/2021 7:34 PM CDT R/O COVID-19 12/22/2022 12/22/2022 12/22/2022 12:2 5 PM CDT R/O COVID-19 09/07/2023 09/07/2023 09/07/2023 9:52 PM WELD ENGINEER documented as of this encounter Care Teams Planer Stone Relationship Specialty Start Date End Date Kassy Jay MD [address] [place] [phone] PCP - General Family Practice 12/04/22 documented as of this encounter
--- OUTSIDE RECORDS SUMMARY | 2025-08-21 13:59 | XMS_ITS | Encounter Summary ---
Author Organization [facility] Address [address] [place] [address] Care Team Providers Care Assistant Secretary Name Role Phone Kassy Jay MD Primary Care Provider [phone] Encounter Details Date Type Department Care Team (Late Contact Info) Description 07/18/2004 Outpatient Historical [facility] Pediatrics - [place] [address] [address] [place] [place] [address] [place] [address] [address] [place] [address] Social History Tobacco Use Types Packs/Day Years Used Date Smoking Tobacco: Never Assessed Comments Unknown Sex and Gender Information Value Date Recorded Sex Assigned at Not on file Legal Sex Female 4:02 AM ENCHILADA MAKER Gender Identity Not on file Sexual Orientation Not on file documented as of this encounter Plan of Treatment Upcoming Encounters Date Type Department Care Team (Late Contact Info) Description 09/25/2025 8:30 AM ENCHILADA MAKER Video Visit [facility] Adult Psychiatry Varinder [address] [phone] Argelia Law NP [address] [address] documented as of this encounter Visit Diagnoses Not on filedocumented in this encounter Additional Health Concerns Infection Onset Date Last Indicated Resolved Time R/O COVID-19 06/02/2021 06/03/2021 06/03/2021 7:34 PM CDT R/O COVID-19 12/22/2022 12/22/2022 12/22/2022 12:2 5 PM CDT R/O COVID-19 09/07/2023 09/07/2023 09/07/2023 9:52 PM ENCHILADA MAKER documented as of this encounter Care Teams Assistant Secretary Relationship Specialty Start Date End Date Kassy Jay MD [address] [place] [phone] PCP - General Family Practice 12/04/22 documented as of this encounter
--- OUTSIDE RECORDS SUMMARY | 2025-08-21 13:59 | XMS_ITS | Encounter Summary ---
Author Organization [facility] Address [address] [place] [address] Care Team Providers Care Cena Name Role Phone Kassy Jay MD Primary Care Provider [phone] Encounter Details Date Type Department Care Team (Late Contact Info) Description 12/15/2003 Outpatient Historical [facility] Childrens Respiratory and Sleep Medicine [address] [facility] [address] [phone] Gustavo Sims Social History Tobacco Use Types Packs/Day Years Used Date Smoking Tobacco: Never Assessed Comments Unknown Sex and Gender Information Value Date Recorded Sex Assigned at Not on file Legal Sex Female 4:02 AM RESEARCH TECHNICIAN Gender Identity Not on file Sexual Orientation Not on file documented as of this encounter Plan of Treatment Upcoming Encounters Date Type Department Care Team (Late Contact Info) Description 09/25/2025 8:30 AM RESEARCH TECHNICIAN Video Visit [facility] Adult Psychiatry Varinder [address] [phone] Argelia Law NP [address] [phone] documented as of this encounter Visit Diagnoses Not on filedocumented in this encounter Additional Health Concerns Infection Onset Date Last Indicated Resolved Time R/O COVID-19 06/02/2021 06/03/2021 06/03/2021 7:34 PM CDT R/O COVID-19 12/22/2022 12/22/2022 12/22/2022 12:2 5 PM CDT R/O COVID-19 09/07/2023 09/07/2023 09/07/2023 9:52 PM RESEARCH TECHNICIAN documented as of this encounter Care Teams Cena Relationship Specialty Start Date End Date Kassy Jay MD [address] [facility] [place] [phone] PCP - General Family Practice 12/04/22 documented as of this encounter
--- OUTSIDE RECORDS SUMMARY | 2025-08-21 13:59 | XMS_ITS | Encounter Summary ---
Author Organization [facility] Address [address] [place] [address] Care Team Providers Care School Psychology Professor Name Role Phone Kassy Jay MD Primary Care Provider [phone] Encounter Details Date Type Department Care Team (Late Contact Info) Description 04/21/2003 Outpatient Historical [facility] Pediatrics - [facility] [address] [place] [address] [place] [address] [place] [address] Social History Tobacco Use Types Packs/Day Years Used Date Smoking Tobacco: Never Assessed Comments Unknown Sex and Gender Information Value Date Recorded Sex Assigned at Not on file Legal Sex Female 4:02 AM RESIDENT PHYSICIAN Gender Identity Not on file Sexual Orientation Not on file documented as of this encounter Plan of Treatment Upcoming Encounters Date Type Department Care Team (Late Contact Info) Description 09/25/2025 8:30 AM RESIDENT PHYSICIAN Video Visit [facility] Adult Psychiatry Varinder [address] [phone] Argelia Law NP [address] [address] documented as of this encounter Visit Diagnoses Not on filedocumented in this encounter Additional Health Concerns Infection Onset Date Last Indicated Resolved Time R/O COVID-19 06/02/2021 06/03/2021 06/03/2021 7:34 PM CDT R/O COVID-19 12/22/2022 12/22/2022 12/22/2022 12:2 5 PM CDT R/O COVID-19 09/07/2023 09/07/2023 09/07/2023 9:52 PM RESIDENT PHYSICIAN documented as of this encounter Care Teams School Psychology Professor Relationship Specialty Start Date End Date Kassy Jay MD [address] [place] [address] PCP - General Family Practice 12/04/22 documented as of this encounter
--- OUTSIDE RECORDS SUMMARY | 2025-08-21 13:59 | XMS_ITS | Encounter Summary ---
Author Organization [facility] Address [address] [place] [address] Care Team Providers Care Inventory Taker Name Role Phone Kassy Jay MD Primary Care Provider [phone] Encounter Details Date Type Department Care Team (Late Contact Info) Description 03/26/2004 Outpatient Historical [facility] Pediatrics - [facility] [address] [place] [address] [place] [address] [place] [address] Social History Tobacco Use Types Packs/Day Years Used Date Smoking Tobacco: Never Assessed Comments Unknown Sex and Gender Information Value Date Recorded Sex Assigned at Not on file Legal Sex Female 4:02 AM ROLL OUT MANAGER Gender Identity Not on file Sexual Orientation Not on file documented as of this encounter Plan of Treatment Upcoming Encounters Date Type Department Care Team (Late Contact Info) Description 09/25/2025 8:30 AM ROLL OUT MANAGER Video Visit [facility] Adult Psychiatry Varinder [address] [phone] Argelia Law NP [address] [address] documented as of this encounter Visit Diagnoses Not on filedocumented in this encounter Additional Health Concerns Infection Onset Date Last Indicated Resolved Time R/O COVID-19 06/02/2021 06/03/2021 06/03/2021 7:34 PM CDT R/O COVID-19 12/22/2022 12/22/2022 12/22/2022 12:2 5 PM CDT R/O COVID-19 09/07/2023 09/07/2023 09/07/2023 9:52 PM ROLL OUT MANAGER documented as of this encounter Care Teams Inventory Taker Relationship Specialty Start Date End Date Kassy Jay MD [address] [place] [address] PCP - General Family Practice 12/04/22 documented as of this encounter
--- OUTSIDE RECORDS SUMMARY | 2025-08-21 13:59 | XMS_ITS | Encounter Summary ---
Author Organization [facility] Address [address] [place] [address] Care Team Providers Care Antique Clocks Repairer Name Role Phone Kassy Jay MD Primary Care Provider [phone] Encounter Details Date Type Department Care Team (Late Contact Info) Description 10/09/2003 Outpatient Historical [facility] Childrens Respiratory and Sleep Medicine [address] [facility] [address] [phone] Gustavo Sims Social History Tobacco Use Types Packs/Day Years Used Date Smoking Tobacco: Never Assessed Comments Unknown Sex and Gender Information Value Date Recorded Sex Assigned at Not on file Legal Sex Female 4:02 AM UMBRELLA CUTTER Gender Identity Not on file Sexual Orientation Not on file documented as of this encounter Plan of Treatment Upcoming Encounters Date Type Department Care Team (Late Contact Info) Description 09/25/2025 8:30 AM UMBRELLA CUTTER Video Visit [facility] Adult Psychiatry Varinder [address] [phone] Argelia Law NP [address] [phone] documented as of this encounter Visit Diagnoses Not on filedocumented in this encounter Additional Health Concerns Infection Onset Date Last Indicated Resolved Time R/O COVID-19 06/02/2021 06/03/2021 06/03/2021 7:34 PM CDT R/O COVID-19 12/22/2022 12/22/2022 12/22/2022 12:2 5 PM CDT R/O COVID-19 09/07/2023 09/07/2023 09/07/2023 9:52 PM UMBRELLA CUTTER documented as of this encounter Care Teams Antique Clocks Repairer Relationship Specialty Start Date End Date Kassy Jay MD [address] [facility] [place] [address] PCP - General Family Practice 12/04/22 documented as of this encounter
--- OUTSIDE RECORDS SUMMARY | 2025-08-21 13:59 | XMS_ITS | Encounter Summary ---
Author Organization [facility] Address [address] [place] [address] Care Team Providers Care Miter Saw Operator Name Role Phone Kassy Jya MD Primary Care Provider [phone] Encounter Details Date Type Department Care Team (Late Contact Info) Description 05/06/2002 Outpatient Historical [facility] Childrens Respiratory and Sleep Medicine [address] [facility] [address] [phone] Gustavo Sims Social History Tobacco Use Types Packs/Day Years Used Date Smoking Tobacco: Never Assessed Comments Unknown Sex and Gender Information Value Date Recorded Sex Assigned at Not on file Legal Sex Female 4:02 AM COLLECTIONS OFFICER Gender Identity Not on file Sexual Orientation Not on file documented as of this encounter Plan of Treatment Upcoming Encounters Date Type Department Care Team (Late Contact Info) Description 09/25/2025 8:30 AM COLLECTIONS OFFICER Video Visit [facility] Adult Psychiatry Varinder [address] [phone] Argelia Law NP [address] [phone] documented as of this encounter Visit Diagnoses Not on filedocumented in this encounter Additional Health Concerns Infection Onset Date Last Indicated Resolved Time R/O COVID-19 06/02/2021 06/03/2021 06/03/2021 7:34 PM CDT R/O COVID-19 12/22/2022 12/22/2022 12/22/2022 12:2 5 PM CDT R/O COVID-19 09/07/2023 09/07/2023 09/07/2023 9:52 PM COLLECTIONS OFFICER documented as of this encounter Care Teams Miter Saw Operator Relationship Specialty Start Date End Date Kassy Jay MD [address] [facility] [place] [phone] PCP - General Family Practice 12/04/22 documented as of this encounter
--- OUTSIDE RECORDS SUMMARY | 2025-08-21 13:59 | XMS_ITS | Encounter Summary ---
Author Organization [facility] Address [address] [place] [address] Care Team Providers Care Automation Tester Name Role Phone Kassy Jay MD Primary Care Provider [phone] Encounter Details Date Type Department Care Team (Late Contact Info) Description 06/07/2003 Outpatient Historical [facility] Childrens Respiratory and Sleep Medicine [address] [facility] [address] [phone] Gustavo Sims Social History Tobacco Use Types Packs/Day Years Used Date Smoking Tobacco: Never Assessed Comments Unknown Sex and Gender Information Value Date Recorded Sex Assigned at Not on file Legal Sex Female 4:02 AM PUBLIC RELATIONS ACCOUNT SUPERVISOR Gender Identity Not on file Sexual Orientation Not on file documented as of this encounter Plan of Treatment Upcoming Encounters Date Type Department Care Team (Late Contact Info) Description 09/25/2025 8:30 AM PUBLIC RELATIONS ACCOUNT SUPERVISOR Video Visit [facility] Adult Psychiatry Varinder [address] [phone] Argelia Law NP [address] [phone] documented as of this encounter Visit Diagnoses Not on filedocumented in this encounter Additional Health Concerns Infection Onset Date Last Indicated Resolved Time R/O COVID-19 06/02/2021 06/03/2021 06/03/2021 7:34 PM CDT R/O COVID-19 12/22/2022 12/22/2022 12/22/2022 12:2 5 PM CDT R/O COVID-19 09/07/2023 09/07/2023 09/07/2023 9:52 PM PUBLIC RELATIONS ACCOUNT SUPERVISOR documented as of this encounter Care Teams Automation Tester Relationship Specialty Start Date End Date Kassy Jay MD [address] [facility] [place] [phone] PCP - General Family Practice 12/04/22 documented as of this encounter
--- OUTSIDE RECORDS SUMMARY | 2025-08-21 13:59 | XMS_ITS | Encounter Summary ---
Author Organization [facility] Address [address] [place] [address] Care Team Providers Care Oven Press Tender Name Role Phone Kassy Jay MD Primary Care Provider [phone] Encounter Details Date Type Department Care Team (Late Contact Info) Description 09/02/2004 Outpatient Historical [facility] Pediatrics - [facility] [address] [facility] [address] [place] [address] [place] [address] [address] [place] [address] Social History Tobacco Use Types Packs/Day Years Used Date Smoking Tobacco: Never Assessed Comments Unknown Sex and Gender Information Value Date Recorded Sex Assigned at Not on file Legal Sex Female 4:02 AM FULL CHARGE BOOKKEEPER Gender Identity Not on file Sexual Orientation Not on file documented as of this encounter Plan of Treatment Upcoming Encounters Date Type Department Care Team (Late Contact Info) Description 09/25/2025 8:30 AM FULL CHARGE BOOKKEEPER Video Visit [facility] Adult Psychiatry Varinder [address] [phone] Argelia Law NP [address] [address] documented as of this encounter Visit Diagnoses Not on filedocumented in this encounter Additional Health Concerns Infection Onset Date Last Indicated Resolved Time R/O COVID-19 06/02/2021 06/03/2021 06/03/2021 7:34 PM CDT R/O COVID-19 12/22/2022 12/22/2022 12/22/2022 12:2 5 PM CDT R/O COVID-19 09/07/2023 09/07/2023 09/07/2023 9:52 PM FULL CHARGE BOOKKEEPER documented as of this encounter Care Teams Oven Press Tender Relationship Specialty Start Date End Date Kassy Jay MD [address] [place] [address] PCP - General Family Practice 12/04/22 documented as of this encounter
--- OUTSIDE RECORDS SUMMARY | 2025-08-21 13:59 | XMS_ITS | Encounter Summary ---
Author Organization [facility] Address [address] [place] [address] Care Team Providers Care Dispensing Lead Name Role Phone Kassy Jay MD Primary Care Provider [phone] Encounter Details Date Type Department Care Team (Late Contact Info) Description 02/10/2003 Outpatient Historical [facility] Pediatrics - [facility] [address] [place] [address] [place] [address] [place] [address] Social History Tobacco Use Types Packs/Day Years Used Date Smoking Tobacco: Never Assessed Comments Unknown Sex and Gender Information Value Date Recorded Sex Assigned at Not on file Legal Sex Female 4:02 AM EXECUTOR OF ESTATE Gender Identity Not on file Sexual Orientation Not on file documented as of this encounter Plan of Treatment Upcoming Encounters Date Type Department Care Team (Late Contact Info) Description 09/25/2025 8:30 AM EXECUTOR OF ESTATE Video Visit [facility] Adult Psychiatry Var[place] [address] [phone] Argelia Law NP [address] [address] documented as of this encounter Visit Diagnoses Not on filedocumented in this encounter Additional Health Concerns Infection Onset Date Last Indicated Resolved Time R/O COVID-19 06/02/2021 06/03/2021 06/03/2021 7:34 PM CDT R/O COVID-19 12/22/2022 12/22/2022 12/22/2022 12:2 5 PM CDT R/O COVID-19 09/07/2023 09/07/2023 09/07/2023 9:52 PM EXECUTOR OF ESTATE documented as of this encounter Care Teams Dispensing Lead Relationship Specialty Start Date End Date Kassy Jay MD [address] [place] [address] PCP - General Family Practice 12/04/22 documented as of this encounter
--- OUTSIDE RECORDS SUMMARY | 2025-08-21 13:59 | XMS_ITS | Encounter Summary ---
Author Organization [facility] Address [address] [place] [address] Care Team Providers Care Radio Dispatcher Name Role Phone Kassy Jay MD Primary Care Provider [phone] Encounter Details Date Type Department Care Team (Late Contact Info) Description 11/08/2004 Outpatient Historical [facility] Pediatrics - [facility] [address] [place] [address] [place] [address] [place] [address] Social History Tobacco Use Types Packs/Day Years Used Date Smoking Tobacco: Never Assessed Comments Unknown Sex and Gender Information Value Date Recorded Sex Assigned at Not on file Legal Sex Female 4:02 AM MANAGER OF ENGINEERING Gender Identity Not on file Sexual Orientation Not on file documented as of this encounter Plan of Treatment Upcoming Encounters Date Type Department Care Team (Late Contact Info) Description 09/25/2025 8:30 AM MANAGER OF ENGINEERING Video Visit [facility] Adult Psychiatry Varinder [address] [phone] Argelia Law NP [address] [address] documented as of this encounter Visit Diagnoses Not on filedocumented in this encounter Additional Health Concerns Infection Onset Date Last Indicated Resolved Time R/O COVID-19 06/02/2021 06/03/2021 06/03/2021 7:34 PM CDT R/O COVID-19 12/22/2022 12/22/2022 12/22/2022 12:2 5 PM CDT R/O COVID-19 09/07/2023 09/07/2023 09/07/2023 9:52 PM MANAGER OF ENGINEERING documented as of this encounter Care Teams Radio Dispatcher Relationship Specialty Start Date End Date Kassy Jay MD [address] [place] [phone] PCP - General Family Practice 12/04/22 documented as of this encounter
--- OUTSIDE RECORDS SUMMARY | 2025-08-21 13:59 | XMS_ITS | Encounter Summary ---
Author Organization [facility] Address [address] [place] [address] Care Team Providers Care Dice Person Name Role Phone Kassy Jay MD Primary Care Provider [phone] Encounter Details Date Type Department Care Team ([facility] Contact Info) Description 05/09/2004 Outpatient [facility] [address] [place] [address] Garrett Mittal MD [address] [facility] [facility] [address] [place] [address] Social History Tobacco Use Types Packs/Day Years Used Date Smoking Tobacco: Never Assessed Comments Unknown Sex and Gender Information Value Date Recorded Sex Assigned at Not on file Legal Sex Female 4:02 AM SALE PROFESSIONAL DIGITAL MARKETING Gender Identity Not on file Sexual Orientation [...] (Late Contact Info) Description 09/25/2025 8:30 AM SALE PROFESSIONAL DIGITAL MARKETING Video Visit [facility] Adult Psychiatry [place] [address] [place] [address] Argelia Law NP [address] [place] [address] documented as of this encounter Visit Diagnoses Not on filedocumented in this encounter Additional Health Concerns Infection Onset Date Last Indicated Resolved Time R/O COVID-19 06/02/2021 06/03/2021 06/03/2021 7:34 PM CDT R/O COVID-19 12/22/2022 12/22/2022 12/22/2022 12:2 5 PM CDT R/O COVID-19 09/07/2023 09/07/2023 09/07/2023 9:52 PM SALE PROFESSIONAL DIGITAL MARKETING documented as of this encounter Care Teams Dice Person Relationship Specialty Start Date End Date Kassy Jay MD [address] [place] [address] PCP - General Family Practice 12/04/22 documented as of this encounter
--- OUTSIDE RECORDS SUMMARY | 2025-08-21 13:59 | XMS_ITS | Encounter Summary ---
Author Organization [facility] Address [address] [place] [address] Care Team Providers Care Bag Machine Operator Name Role Phone Kassy Jay MD Primary Care Provider [phone] Encounter Details Date Type Department Care Team (Late Contact Info) Description 10/09/2003 Outpatient Historical [facility] Childrens Respiratory and Sleep Medicine [address] [facility] [address] [address] Gustavo Sims Social History Tobacco Use Types Packs/Day Years Used Date Smoking Tobacco: Never Assessed Comments Unknown Sex and Gender Information Value Date Recorded Sex Assigned at Not on file Legal Sex Female 4:02 AM ACETYLENE TORCH OPERATOR Gender Identity Not on file Sexual Orientation Not on file documented as of this encounter Plan of Treatment Upcoming Encounters Date Type Department Care Team (Late Contact Info) Description 09/25/2025 8:30 AM ACETYLENE TORCH OPERATOR Video Visit [facility] Adult Psychiatry Varinder [address] [phone] Argelia Law NP [address] [phone] documented as of this encounter Visit Diagnoses Not on filedocumented in this encounter Additional Health Concerns Infection Onset Date Last Indicated Resolved Time R/O COVID-19 06/02/2021 06/03/2021 06/03/2021 7:34 PM CDT R/O COVID-19 12/22/2022 12/22/2022 12/22/2022 12:2 5 PM CDT R/O COVID-19 09/07/2023 09/07/2023 09/07/2023 9:52 PM ACETYLENE TORCH OPERATOR documented as of this encounter Care Teams Bag Machine Operator Relationship Specialty Start Date End Date Kassy Jay MD [address] [facility] [place] [phone] PCP - General Family Practice 12/04/22 documented as of this encounter
--- OUTSIDE RECORDS SUMMARY | 2025-08-21 13:59 | XMS_ITS | Encounter Summary ---
Author Organization [facility] Address [address] [place] [address] Care Team Providers Care Transportation Consultant Name Role Phone Kassy Jay MD Primary Care Provider [phone] Encounter Details Date Type Department Care Team (Latest Contact Info) Description 02/13/2005 Outpatient Historical [facility] Gustavo Sims ASTHMA UNSPECIFIED (Primary Dx) Social History Tobacco Use Types Packs/Day Years Used Date Smoking Tobacco: Never Assessed Comments Unknown Sex and Gender Information Value Date Recorded Sex Assigned at Not on file Legal Sex Female 4:02 AM INSTRUMENTATION SPECIALIST Gender Identity Not on file Sexual Orientation Not on file documented as of this encounter Plan of Treatment Upcoming Encounters Date Type Department Care Team (Late st Contact Info) Description 09/25/2025 8:30 AM INSTRUMENTATION SPECIALIST Video Visit [facility] Adult Psychiatry Varinder [address] [address] [place] [address] [place] [address] [place] [address] documented as of this encounter Visit Diagnoses Diagnosis Unspecified asthma(493.90)- Primary Unspecified asthma documented in this encounter Additional Health Concerns Infection Onset Date Last Indicated Resolved Time R/O COVID-19 06/02/2021 06/03/2021 06/03/2021 7:34 PM CDT R/O COVID-19 12/22/2022 12/22/2022 12/22/2022 12:2 5 PM CDT R/O COVID-19 09/07/2023 09/07/2023 09/07/2023 9:52 PM INSTRUMENTATION SPECIALIST documented as of this encounter Care Teams Transportation Consultant Relationship Specialty Start Date End Date Kassy Jay MD [address] [place] [phone] PCP - General Family Practice 12/04/22 documented as of this encounter
--- OUTSIDE RECORDS SUMMARY | 2025-08-21 13:59 | XMS_ITS | Encounter Summary ---
Author Organization [facility] Address [address] [place] [address] Care Team Providers Care Environmental Advisor Name Role Phone Kassy Jay MD Primary Care Provider [phone] Encounter Details Date Type Department Care Team (Late Contact Info) Description 06/16/2002 Outpatient Historical [facility] Childrens Respiratory and Sleep Medicine [address] [facility] [address] [address] Gustavo Sims Social History Tobacco Use Types Packs/Day Years Used Date Smoking Tobacco: Never Assessed Comments Unknown Sex and Gender Information Value Date Recorded Sex Assigned at Not on file Legal Sex Female 4:02 AM RESOLUTION AGENT Gender Identity Not on file Sexual Orientation Not on file documented as of this encounter Plan of Treatment Upcoming Encounters Date Type Department Care Team (Late Contact Info) Description 09/25/2025 8:30 AM RESOLUTION AGENT Video Visit [facility] Adult Psychiatry Varinder [address] [phone] Argelia Law NP [address] [phone] documented as of this encounter Visit Diagnoses Not on filedocumented in this encounter Additional Health Concerns Infection Onset Date Last Indicated Resolved Time R/O COVID-19 06/02/2021 06/03/2021 06/03/2021 7:34 PM CDT R/O COVID-19 12/22/2022 12/22/2022 12/22/2022 12:2 5 PM CDT R/O COVID-19 09/07/2023 09/07/2023 09/07/2023 9:52 PM RESOLUTION AGENT documented as of this encounter Care Teams Environmental Advisor Relationship Specialty Start Date End Date Kassy Jay MD [address] [facility] [place] [phone] PCP - General Family Practice 12/04/22 documented as of this encounter
--- OUTSIDE RECORDS SUMMARY | 2025-08-21 13:59 | XMS_ITS | Encounter Summary ---
Author Organization [facility] Address [address] [place] [address] Care Team Providers Care Bar And Filler Assembler Name Role Phone Kassy Jay MD Primary Care Provider [phone] Encounter Details Date Type Department Care Team (Late Contact Info) Description 11/08/2004 Outpatient Historical [facility] Pediatrics - [facility] [address] [facility] [address] [place] [address] [place] [address] [place] [address] Social History Tobacco Use Types Packs/Day Years Used Date Smoking Tobacco: Never Assessed Comments Unknown Sex and Gender Information Value Date Recorded Sex Assigned at Not on file Legal Sex Female 4:02 AM OPERATIONS DISPATCHER Gender Identity Not on file Sexual Orientation Not on file documented as of this encounter Plan of Treatment Upcoming Encounters Date Type Department Care Team (Late Contact Info) Description 09/25/2025 8:30 AM OPERATIONS DISPATCHER Video Visit [facility] Adult Psychiatry Varinder [address] [phone] Argelia Law NP [address] [address] documented as of this encounter Visit Diagnoses Not on filedocumented in this encounter Additional Health Concerns Infection Onset Date Last Indicated Resolved Time R/O COVID-19 06/02/2021 06/03/2021 06/03/2021 7:34 PM CDT R/O COVID-19 12/22/2022 12/22/2022 12/22/2022 12:2 5 PM CDT R/O COVID-19 09/07/2023 09/07/2023 09/07/2023 9:52 PM OPERATIONS DISPATCHER documented as of this encounter Care Teams Bar And Filler Assembler Relationship Specialty Start Date End Date Kassy Jay MD [address] [place] [address] PCP - General Family Practice 12/04/22 documented as of this encounter
--- OUTSIDE RECORDS SUMMARY | 2025-08-21 13:59 | XMS_ITS | Encounter Summary ---
Author Organization [facility] Address [address] [place] [address] Care Team Providers Care Tank Furnace Operator Name Role Phone Kassy Jay MD Primary Care Provider [phone] Encounter Details Date Type Department Care Team (Late Contact Info) Description 07/06/2002 Outpatient Historical [facility] Pediatrics - [place] [address] [place] [address] [place] [address] [facility] [address] [address] [place] [address] Social History Tobacco Use Types Packs/Day Years Used Date Smoking Tobacco: Never Assessed Comments Unknown Sex and Gender Information Value Date Recorded Sex Assigned at Not on file Legal Sex Female 4:02 AM ROLL HANDLER Gender Identity Not on file Sexual Orientation Not on file documented as of this encounter Plan of Treatment Upcoming Encounters Date Type Department Care Team (Late Contact Info) Description 09/25/2025 8:30 AM ROLL HANDLER Video Visit [facility] Adult Psychiatry Varinder [address] [phone] Argelia Law NP [address] [address] documented as of this encounter Visit Diagnoses Not on filedocumented in this encounter Additional Health Concerns Infection Onset Date Last Indicated Resolved Time R/O COVID-19 06/02/2021 06/03/2021 06/03/2021 7:34 PM CDT R/O COVID-19 12/22/2022 12/22/2022 12/22/2022 12:2 5 PM CDT R/O COVID-19 09/07/2023 09/07/2023 09/07/2023 9:52 PM ROLL HANDLER documented as of this encounter Care Teams Tank Furnace Operator Relationship Specialty Start Date End Date Kassy Jay MD [address] [place] [address] [address] PCP - General Family Practice 12/04/22 documented as of this encounter
--- OUTSIDE RECORDS SUMMARY | 2025-08-21 13:59 | XMS_ITS | Encounter Summary ---
Author Organization [facility] Address [address] [place] [address] Care Team Providers Care Automotive Salesperson Name Role Phone Kassy Jay MD Primary Care Provider [phone] Encounter Details Date Type Department Care Team (Late Contact Info) Description 10/07/2002 Outpatient Historical [facility] Pediatrics - [facility] [address] [facility] [address] [place] [address] [place] [address] [place] [address] Social History Tobacco Use Types Packs/Day Years Used Date Smoking Tobacco: Never Assessed Comments Unknown Sex and Gender Information Value Date Recorded Sex Assigned at Not on file Legal Sex Female 4:02 AM SPECIALTY TRANSFORMER ASSEMBLER Gender Identity Not on file Sexual Orientation Not on file documented as of this encounter Plan of Treatment Upcoming Encounters Date Type Department Care Team (Late Contact Info) Description 09/25/2025 8:30 AM SPECIALTY TRANSFORMER ASSEMBLER Video Visit [facility] Adult Psychiatry Varinder [address] [phone] Argelia Law NP [address] [address] documented as of this encounter Visit Diagnoses Not on filedocumented in this encounter Additional Health Concerns Infection Onset Date Last Indicated Resolved Time R/O COVID-19 06/02/2021 06/03/2021 06/03/2021 7:34 PM CDT R/O COVID-19 12/22/2022 12/22/2022 12/22/2022 12:2 5 PM CDT R/O COVID-19 09/07/2023 09/07/2023 09/07/2023 9:52 PM SPECIALTY TRANSFORMER ASSEMBLER documented as of this encounter Care Teams Automotive Salesperson Relationship Specialty Start Date End Date Kassy Jay MD [address] [place] [address] PCP - General Family Practice 12/04/22 documented as of this encounter
--- OUTSIDE RECORDS SUMMARY | 2025-08-21 13:59 | XMS_ITS | Encounter Summary ---
Author Organization [facility] Address [address] [place] [address] Care Team Providers Care Tool Dresser Name Role Phone Kassy Jay MD Primary Care Provider [phone] Encounter Details Date Type Department Care Team (Late Contact Info) Description 08/01/2003 Outpatient Historical [facility] Pediatrics - [facility] [address] [place] [address] [place] [address] [place] [address] Social History Tobacco Use Types Packs/Day Years Used Date Smoking Tobacco: Never Assessed Comments Unknown Sex and Gender Information Value Date Recorded Sex Assigned at Not on file Legal Sex Female 4:02 AM SEM MANAGER Gender Identity Not on file Sexual Orientation Not on file documented as of this encounter Plan of Treatment Upcoming Encounters Date Type Department Care Team (Late Contact Info) Description 09/25/2025 8:30 AM SEM MANAGER Video Visit [facility] Adult Psychiatry [place] [address] [phone] Argelia Law NP [address] [address] documented as of this encounter Visit Diagnoses Not on filedocumented in this encounter Additional Health Concerns Infection Onset Date Last Indicated Resolved Time R/O COVID-19 06/02/2021 06/03/2021 06/03/2021 7:34 PM CDT R/O COVID-19 12/22/2022 12/22/2022 12/22/2022 12:2 5 PM CDT R/O COVID-19 09/07/2023 09/07/2023 09/07/2023 9:52 PM SEM MANAGER documented as of this encounter Care Teams Tool Dresser Relationship Specialty Start Date End Date Kassy Jay MD [address] [place] [phone] PCP - General Family Practice 12/04/22 documented as of this encounter
--- OUTSIDE RECORDS SUMMARY | 2025-08-21 13:59 | XMS_ITS | Encounter Summary ---
Author Organization [facility] Address [address] [place] [address] Care Team Providers Care Research Hydrologist Name Role Phone Kassy Jay MD Primary Care Provider [phone] Encounter Details Date Type Department Care Team (Late Contact Info) Description 07/18/2004 Outpatient Historical [facility] Pediatrics - [facility] [address] [facility] [address] [place] [address] [place] [address] [place] [address] Social History Tobacco Use Types Packs/Day Years Used Date Smoking Tobacco: Never Assessed Comments Unknown Sex and Gender Information Value Date Recorded Sex Assigned at Not on file Legal Sex Female 4:02 AM INDUSTRIAL DESIGNER Gender Identity Not on file Sexual Orientation Not on file documented as of this encounter Plan of Treatment Upcoming Encounters Date Type Department Care Team (Late Contact Info) Description 09/25/2025 8:30 AM INDUSTRIAL DESIGNER Video Visit [facility] Adult Psychiatry [place] [address] [phone] Argelia Law NP [address] [address] documented as of this encounter Visit Diagnoses Not on filedocumented in this encounter Additional Health Concerns Infection Onset Date Last Indicated Resolved Time R/O COVID-19 06/02/2021 06/03/2021 06/03/2021 7:34 PM CDT R/O COVID-19 12/22/2022 12/22/2022 12/22/2022 12:2 5 PM CDT R/O COVID-19 09/07/2023 09/07/2023 09/07/2023 9:52 PM INDUSTRIAL DESIGNER documented as of this encounter Care Teams Research Hydrologist Relationship Specialty Start Date End Date Kassy Jay MD [address] [place] [address] [phone] PCP - General Family Practice 12/04/22 documented as of this encounter
--- OUTSIDE RECORDS SUMMARY | 2025-08-21 13:59 | XMS_ITS | Encounter Summary ---
Author Organization [facility] Address [address] [place] [address] Care Team Providers Care Ammunition Supervisor Name Role Phone Kassy Jay MD Primary Care Provider [phone] Encounter Details Date Type Department Care Team (Latest Contact Info) Description 03/27/2004 Outpatient Historical [facility] Gustavo Sims ASTHMA UNSPECIFIED (Primary Dx) Social History Tobacco Use Types Packs/Day Years Used Date Smoking Tobacco: Never Assessed Comments Unknown Sex and Gender Information Value Date Recorded Sex Assigned at Not on file Legal Sex Female 4:02 AM MEDICAL FACILITIES SECTION DIRECTOR Gender Identity Not on file Sexual Orientation Not on file documented as of this encounter Plan of Treatment Upcoming Encounters Date Type Department Care Team (Late st Contact Info) Description 09/25/2025 8:30 AM MEDICAL FACILITIES SECTION DIRECTOR Video Visit [facility] Adult Psychiatry [place] [address] [address] [place] [address] ChinaArgelia NP [address] [place] [address] documented as of this encounter Visit Diagnoses Diagnosis Unspecified asthma(493.90)- Primary Unspecified asthma documented in this encounter Additional Health Concerns Infection Onset Date Last Indicated Resolved Time R/O COVID-19 06/02/2021 06/03/2021 06/03/2021 7:34 PM CDT R/O COVID-19 12/22/2022 12/22/2022 12/22/2022 12:2 5 PM CDT R/O COVID-19 09/07/2023 09/07/2023 09/07/2023 9:52 PM MEDICAL FACILITIES SECTION DIRECTOR documented as of this encounter Care Teams Ammunition Supervisor Relationship Specialty Start Date End Date Kassy Jay MD [address] [place] [address] [phone] PCP - General Family Practice 12/04/22 documented as of this encounter
--- OUTSIDE RECORDS SUMMARY | 2025-08-21 14:00 | XMS_ITS | Encounter Summary ---
Author Organization [facility] Address [address] [place] [address] Care Team Providers Care Olive Grower Name Role Phone Kassy Jay MD Primary Care Provider [phone] Encounter Details Date Type Department Care Team (Late Contact Info) Description 07/27/2000 Outpatient Historical [facility] Pediatrics - [facility] [address] [place] [address] [place] [address] [address] [place] [address] Social History Tobacco Use Types Packs/Day Years Used Date Smoking Tobacco: Never Assessed Comments Unknown Sex and Gender Information Value Date Recorded Sex Assigned at Not on file Legal Sex Female 4:02 AM PAD EXTRACTOR TENDER Gender Identity Not on file Sexual Orientation Not on file documented as of this encounter Plan of Treatment Upcoming Encounters Date Type Department Care Team (Late Contact Info) Description 09/25/2025 8:30 AM PAD EXTRACTOR TENDER Video Visit [facility] Adult Psychiatry [place] [address] [phone] Argelia Law NP [address] [address] documented as of this encounter Visit Diagnoses Not on filedocumented in this encounter Additional Health Concerns Infection Onset Date Last Indicated Resolved Time R/O COVID-19 06/02/2021 06/03/2021 06/03/2021 7:34 PM CDT R/O COVID-19 12/22/2022 12/22/2022 12/22/2022 12:2 5 PM CDT R/O COVID-19 09/07/2023 09/07/2023 09/07/2023 9:52 PM PAD EXTRACTOR TENDER documented as of this encounter Care Teams Olive Grower Relationship Specialty Start Date End Date Kassy Jay MD [address] [place] [address] [phone] PCP - General Family Practice 12/04/22 documented as of this encounter
--- OUTSIDE RECORDS SUMMARY | 2025-08-21 14:00 | XMS_ITS | Encounter Summary ---
Author Organization [facility] Address [address] [place] [address] Care Team Providers Care Director [employer] Name Role Phone Kassy Jay MD Primary Care Provider [phone] Encounter Details Date Type Department Care Team (Latest Contact Info) Description 09/04/2005 Outpatient Historical [facility] Gustavo Sims EXTRINSIC ASTHMA UNSPECIFIED (Primary Dx) Social History Tobacco Use Types Packs/Day Years Used Date Smoking Tobacco: Never Assessed Comments Unknown Sex and Gender Information Value Date Recorded Sex Assigned at Not on file Legal Sex Female 4:02 AM LINK AND LINK KNITTING MACHINE OPERATOR Gender Identity Not on file Sexual Orientation Not on file documented as of this encounter Plan of Treatment Upcoming Encounters Date Type Department Care Team (Late st Contact Info) Description 09/25/2025 8:30 AM LINK AND LINK KNITTING MACHINE OPERATOR Video Visit [facility] Adult Psychiatry [place] [address] [place] [address] State LineArgelia NP [address] [address] documented as of this encounter Visit Diagnoses Diagnosis Extrinsic asthma, unspecified- Primary documented in this encounter Additional Health Concerns Infection Onset Date Last Indicated Resolved Time R/O COVID-19 06/02/2021 06/03/2021 06/03/2021 7:34 PM CDT R/O COVID-19 12/22/2022 12/22/2022 12/22/2022 12:2 5 PM CDT R/O COVID-19 09/07/2023 09/07/2023 09/07/2023 9:52 PM LINK AND LINK KNITTING MACHINE OPERATOR documented as of this encounter Care Teams Director [employer] Relationship Specialty Start Date End Date Kassy Jay MD [address] [place] [phone] PCP - General Family Practice 12/04/22 documented as of this encounter
--- OUTSIDE RECORDS SUMMARY | 2025-08-21 14:00 | XMS_ITS | Encounter Summary ---
Author Organization [facility] Address [address] [place] [address] Care Team Providers Care Revenue Cycle Specialist Name Role Phone Kassy Jay MD Primary Care Provider [phone] Encounter Details Date Type Department Care Team (Late Contact Info) Description 03/02/2000 Outpatient Historical [facility] Pediatrics - [facility] [address] [facility] [address] [place] [address] [place] [address] [place] [address] Social History Tobacco Use Types Packs/Day Years Used Date Smoking Tobacco: Never Assessed Comments Unknown Sex and Gender Information Value Date Recorded Sex Assigned at Not on file Legal Sex Female 4:02 AM MEDICAL DIRECTOR OCCUPATIONAL HEALTH Gender Identity Not on file Sexual Orientation Not on file documented as of this encounter Plan of Treatment Upcoming Encounters Date Type Department Care Team (Late Contact Info) Description 09/25/2025 8:30 AM MEDICAL DIRECTOR OCCUPATIONAL HEALTH Video Visit [facility] Adult Psychiatry [place] [address] [phone] Argelia Law NP [address] [address] documented as of this encounter Visit Diagnoses Not on filedocumented in this encounter Additional Health Concerns Infection Onset Date Last Indicated Resolved Time R/O COVID-19 06/02/2021 06/03/2021 06/03/2021 7:34 PM CDT R/O COVID-19 12/22/2022 12/22/2022 12/22/2022 12:2 5 PM CDT R/O COVID-19 09/07/2023 09/07/2023 09/07/2023 9:52 PM MEDICAL DIRECTOR OCCUPATIONAL HEALTH documented as of this encounter Care Teams Revenue Cycle Specialist Relationship Specialty Start Date End Date Kassy Jay MD [address] [place] [phone] PCP - General Family Practice 12/04/22 documented as of this encounter
--- OUTSIDE RECORDS SUMMARY | 2025-08-21 14:00 | XMS_ITS | Encounter Summary ---
Author Organization [facility] Address [address] [place] [address] Care Team Providers Care Scenic Designer Name Role Phone Kassy Jay MD Primary Care Provider [phone] Encounter Details Date Type Department Care Team (Late Contact Info) Description 08/16/1999 Outpatient Historical [facility] Pediatric[facility] - [facility] [address] [place] [address] Darren Tabor MD NO ADDRESS ON FILE Social History Tobacco Use Types Packs/Day Years Used Date Smoking Tobacco: Never Assessed Comments Unknown Sex and Gender Information Value Date Recorded Sex Assigned at Not on file Legal Sex Female 4:02 AM POWER PROJECT MANAGER Gender Identity Not on file Sexual Orientation Not on file documented as of this encounter Plan of Treatment Upcoming Encounters Date Type Department Care Team (Late Contact Info) Description 09/25/2025 8:30 AM POWER PROJECT MANAGER Video Visit [facility] Adult Psychiatry [place] [address] [phone] Thanh, Argelia Lopez NP [address] [address] documented as of this encounter Visit Diagnoses Not on filedocumented in this encounter Additional Health Concerns Infection Onset Date Last Indicated Resolved Time R/O COVID-19 06/02/2021 06/03/2021 06/03/2021 7:34 PM CDT R/O COVID-19 12/22/2022 12/22/2022 12/22/2022 12:2 5 PM CDT R/O COVID-19 09/07/2023 09/07/2023 09/07/2023 9:52 PM POWER PROJECT MANAGER documented as of this encounter Care Teams Scenic Designer Relationship Specialty Start Date End Date Kassy Jay MD [address] [facility] [place] [phone] PCP - General Family Practice 12/04/22 documented as of this encounter
--- OUTSIDE RECORDS SUMMARY | 2025-08-21 14:00 | XMS_ITS | Encounter Summary ---
Author Organization [facility] Address [address] [place] [address] Care Team Providers Care Staff Electrical Engineer Name Role Phone Kassy Jay MD Primary Care Provider [phone] Encounter Details Date Type Department Care Team (Late st Contact Info) Description 04/28/2006 Orders Only [facility] Pediatrics - [facility] [address] [address] [facility] [address] [place] [address] [place] [address] [facility] [address] [place] [address] Social History Tobacco Use Types Packs/Day Years Used Date Smoking Tobacco: Never Assessed Comments Unknown Sex and Gender Information Value Date Recorded Sex Assigned at Not on file Legal Sex Female 4:02 AM SHOT CORE DRILL OPERATOR HELPER Gender Identity Not on file Sexual Orientation Not on file documented as of this encounter Progress Notes * Lacie Malik MD - 06/29/2008 9:55 PM CDT TIME:10:41 am PATIENT`S HOME PHONE: PATIENT`S WORK PHONE: PATIENT`S INSURANCE: [facility] WHO TOOK THE CALL: Alana Ba A PATIENT'S AGE: 6 yrs, 2 mths, 0 wks, 1 day GENERAL INFORMATION PCP: King. WHO CALLED: Patient`s father called. SECTION 1: REQUESTED ACTION: mcdopa 04/28/06 at 10:42 am MEDICATION REQUEST: Epi-Pen needed for school. Dad states this script is written each year for her school. [address] in [place].////Alana DOCTOR`S RESPONSE: [email or web address] 04/28/06 at 11:33 am MEDICATIONS: Call in [...] st Contact Info) Description 09/25/2025 8:30 AM SHOT CORE DRILL OPERATOR HELPER Video Visit [facility] Adult Psychiatry [place] [address] [phone] Argelia Law NP [address] [address] documented as of this encounter Visit Diagnoses Not on filedocumented in this encounter Additional Health Concerns Infection Onset Date Last Indicated Resolved Time R/O COVID-19 06/02/2021 06/03/2021 06/03/2021 7:34 PM CDT R/O COVID-19 12/22/2022 12/22/2022 12/22/2022 12:2 5 PM CDT R/O COVID-19 09/07/2023 09/07/2023 09/07/2023 9:52 PM SHOT CORE DRILL OPERATOR HELPER documented as of this encounter Care Teams Staff Electrical Engineer Relationship Specialty Start Date End Date Kassy Jay MD [address] [place] [address] [phone] PCP - General Family Practice 12/04/22 documented as of this encounter
--- OUTSIDE RECORDS SUMMARY | 2025-08-21 14:00 | XMS_ITS | Encounter Summary ---
Author Organization [facility] Address [address] [place] [address] Care Team Providers Care Strap Setter Name Role Phone Kassy Jay MD Primary Care Provider [phone] Encounter Details Date Type Department Care Team (Late Contact Info) Description 06/03/1999 Outpatient Historical [facility] Pediatrics - [facility] [address] [place] [address] Darren Tabor MD NO ADDRESS ON FILE Social History Tobacco Use Types Packs/Day Years Used Date Smoking Tobacco: Never Assessed Comments Unknown Sex and Gender Information Value Date Recorded Sex Assigned at Not on file Legal Sex Female 4:02 AM ABSTRACT WRITER Gender Identity Not on file Sexual Orientation Not on file documented as of this encounter Plan of Treatment Upcoming Encounters Date Type Department Care Team (Late Contact Info) Description 09/25/2025 8:30 AM ABSTRACT WRITER Video Visit [facility] Adult Psychiatry [place] [address] [phone] Thanh, Argelia Lopez NP [address] [address] documented as of this encounter Visit Diagnoses Not on filedocumented in this encounter Additional Health Concerns Infection Onset Date Last Indicated Resolved Time R/O COVID-19 06/02/2021 06/03/2021 06/03/2021 7:34 PM CDT R/O COVID-19 12/22/2022 12/22/2022 12/22/2022 12:2 5 PM CDT R/O COVID-19 09/07/2023 09/07/2023 09/07/2023 9:52 PM ABSTRACT WRITER documented as of this encounter Care Teams Strap Setter Relationship Specialty Start Date End Date Kassy Jay MD [address] [facility] [place] [phone] PCP - General Family Practice 12/04/22 documented as of this encounter
--- OUTSIDE RECORDS SUMMARY | 2025-08-21 14:00 | XMS_ITS | Encounter Summary ---
Author Organization [facility] Address [address] [place] [address] Care Team Providers Care Tax Compliance Officer Name Role Phone Kassy aJy MD Primary Care Provider [phone] Encounter Details Date Type Department Care Team (Late Contact Info) Description 04/18/2002 Outpatient Historical [facility] Pediatrics - [facility] [address] [facility] [address] [place] [address] [place] [address] [place] [address] Social History Tobacco Use Types Packs/Day Years Used Date Smoking Tobacco: Never Assessed Comments Unknown Sex and Gender Information Value Date Recorded Sex Assigned at Not on file Legal Sex Female 4:02 AM ELEVATOR OPERATOR Gender Identity Not on file Sexual Orientation Not on file documented as of this encounter Plan of Treatment Upcoming Encounters Date Type Department Care Team (Late Contact Info) Description 09/25/2025 8:30 AM ELEVATOR OPERATOR Video Visit [facility] Adult Psychiatry [place] [address] [phone] Argelia Law NP [address] [address] documented as of this encounter Visit Diagnoses Not on filedocumented in this encounter Additional Health Concerns Infection Onset Date Last Indicated Resolved Time R/O COVID-19 06/02/2021 06/03/2021 06/03/2021 7:34 PM CDT R/O COVID-19 12/22/2022 12/22/2022 12/22/2022 12:2 5 PM CDT R/O COVID-19 09/07/2023 09/07/2023 09/07/2023 9:52 PM ELEVATOR OPERATOR documented as of this encounter Care Teams Tax Compliance Officer Relationship Specialty Start Date End Date Kassy Jay MD [address] [place] [phone] PCP - General Family Practice 12/04/22 documented as of this encounter
--- OUTSIDE RECORDS SUMMARY | 2025-08-21 14:00 | XMS_ITS | Encounter Summary ---
Author Organization [facility] Address [address] [place] [address] Care Team Providers Care National Sales Representative Name Role Phone Kassy Jay MD Primary Care Provider [phone] Encounter Details Date Type Department Care Team (Late Contact Info) Description 09/04/2005 Outpatient Historical [facility] [address] [facility] [address] [id number] Gustavo Sims Social History Tobacco Use Types Packs/Day Years Used Date Smoking Tobacco: Never Assessed Comments Unknown Sex and Gender Information Value Date Recorded Sex Assigned at Not on file Legal Sex Female 4:02 AM RADIO INSTALLER AUTOMOBILE Gender Identity Not on file Sexual Orientation Not on file documented as of this encounter Plan of Treatment Upcoming Encounters Date Type Department Care Team (Late Contact Info) Description 09/25/2025 8:30 AM RADIO INSTALLER AUTOMOBILE Video Visit [facility] Adult Psychiatry [place] [address] [phone] Argelia Law NP [address] [phone] documented as of this encounter Visit Diagnoses Not on filedocumented in this encounter Additional Health Concerns Infection Onset Date Last Indicated Resolved Time R/O COVID-19 06/02/2021 06/03/2021 06/03/2021 7:34 PM CDT R/O COVID-19 12/22/2022 12/22/2022 12/22/2022 12:2 5 PM CDT R/O COVID-19 09/07/2023 09/07/2023 09/07/2023 9:52 PM RADIO INSTALLER AUTOMOBILE documented as of this encounter Care Teams National Sales Representative Relationship Specialty Start Date End Date Kassy Jay MD [address] [facility] [place] [phone] PCP - General Family Practice 12/04/22 documented as of this encounter
--- OUTSIDE RECORDS SUMMARY | 2025-08-21 14:00 | XMS_ITS | Encounter Summary ---
Author Organization [facility] Address [address] [place] [address] Care Team Providers Care Skilled Nursing Professional Name Role Phone Kassy Jay MD Primary Care Provider [phone] Encounter Details Date Type Department Care Team (Late Contact Info) Description 04/13/2002 Outpatient Historical [facility] Department of Peds at [address] [phone] Diandra Brown MD [address] [place] [address] [place] [phone] Social History Tobacco Use Types Packs/Day Years Used Date Smoking Tobacco: Never Assessed Comments Unknown Sex and Gender Information Value Date Recorded Sex Assigned at Not on file Legal Sex Female 4:02 AM CRIMINOLOGY PROFESSOR Gender Identity Not on file Sexual Orientation Not on file documented as of this encounter Plan of Treatment Upcoming Encounters Date Type Department Care Team (Late Contact Info) Description 09/25/2025 8:30 AM CRIMINOLOGY PROFESSOR Video Visit [facility] Adult Psychiatry [place] [address] [phone] Argelia Law NP [address] [address] documented as of this encounter Visit Diagnoses Not on filedocumented in this encounter Additional Health Concerns Infection Onset Date Last Indicated Resolved Time R/O COVID-19 06/02/2021 06/03/2021 06/03/2021 7:34 PM CDT R/O COVID-19 12/22/2022 12/22/2022 12/22/2022 12:2 5 PM CDT R/O COVID-19 09/07/2023 09/07/2023 09/07/2023 9:52 PM CRIMINOLOGY PROFESSOR documented as of this encounter Care Teams Skilled Nursing Professional Relationship Specialty Start Date End Date Kassy Jay MD [address] [place] [phone] PCP - General Family Practice 12/04/22 documented as of this encounter
--- OUTSIDE RECORDS SUMMARY | 2025-08-21 14:00 | XMS_ITS | Encounter Summary ---
Author Organization [facility] Address [address] [place] [address] Care Team Providers Care Missile Inspector Name Role Phone Kassy Jay MD Primary Care Provider [phone] Encounter Details Date Type Department Care Team ([facility] Contact Info) Description 09/11/2006 Outpatient Historical [facility] Pediatrics - [facility] [address] [place] [address] [place] [address] [place] [address] Social History Tobacco Use Types Packs/Day Years Used Date Smoking Tobacco: Never Assessed Comments Unknown Sex and Gender Information Value Date Recorded Sex Assigned at Not on file Legal Sex Female 4:02 AM DIESEL INSPECTOR Gender Identity Not on file Sexual Orientation Not on file documented as of this encounter Last Filed Vital Signs Vital Sign Reading Time Taken Comments Blood Pressure - - Pulse 88 09/11/2006 8:45 AM DIESEL INSPECTOR Temperature 36.7 C (98 F) 09/11/2006 8:45 AM DIESEL INSPECTOR Respiratory Rate 20 09/11/2006 8:45 AM DIESEL INSPECTOR Oxygen Saturation - - Inhaled Oxygen Concentration - - Weight 30.2 kg (66 lb 8 oz) 09/11/2006 8:[address] Height - - Body Mass Index - - documented in this encounter Plan of Treatment Upcoming Encounters Date Type Department Care Team (Late Contact Info) Description 09/25/2025 8:30 AM DIESEL INSPECTOR Video Visit [facility] Adult Psychiatry [place] [address] [place] [address] Argelia Law NP [address] [place] [address] documented as of this encounter Visit Diagnoses Not on filedocumented in this encounter Additional Health Concerns Infection Onset Date Last Indicated Resolved Time R/O COVID-19 06/02/2021 06/03/2021 06/03/2021 7:34 PM CDT R/O COVID-19 12/22/2022 12/22/2022 12/22/2022 12:2 5 PM CDT R/O COVID-19 09/07/2023 09/07/2023 09/07/2023 9:52 PM DIESEL INSPECTOR documented as of this encounter Care Teams Missile Inspector Relationship Specialty Start Date End Date Kassy Jay MD [address] [place] [address] PCP - General Family Practice 12/04/22 documented as of this encounter
--- OUTSIDE RECORDS SUMMARY | 2025-08-21 14:00 | XMS_ITS | Encounter Summary ---
Author Organization [facility] Address [address] [place] [address] Care Team Providers Care Data Modeling Architect Name Role Phone Kassy Jay MD Primary Care Provider [phone] Encounter Details Date Type Department Care Team (Late Contact Info) Description 03/15/2002 Outpatient Historical [facility] Pediatrics - [facility] [address] [place] [address] [place] [address] [place] [address] Social History Tobacco Use Types Packs/Day Years Used Date Smoking Tobacco: Never Assessed Comments Unknown Sex and Gender Information Value Date Recorded Sex Assigned at Not on file Legal Sex Female 4:02 AM MEDICAL EXAMINER Gender Identity Not on file Sexual Orientation Not on file documented as of this encounter Plan of Treatment Upcoming Encounters Date Type Department Care Team (Late Contact Info) Description 09/25/2025 8:30 AM MEDICAL EXAMINER Video Visit [facility] Adult Psychiatry [place] [address] [phone] Argelia Law NP [address] [address] documented as of this encounter Visit Diagnoses Not on filedocumented in this encounter Additional Health Concerns Infection Onset Date Last Indicated Resolved Time R/O COVID-19 06/02/2021 06/03/2021 06/03/2021 7:34 PM CDT R/O COVID-19 12/22/2022 12/22/2022 12/22/2022 12:2 5 PM CDT R/O COVID-19 09/07/2023 09/07/2023 09/07/2023 9:52 PM MEDICAL EXAMINER documented as of this encounter Care Teams Data Modeling Architect Relationship Specialty Start Date End Date Kassy Jay MD [address] [place] [address] PCP - General Family Practice 12/04/22 documented as of this encounter
--- OUTSIDE RECORDS SUMMARY | 2025-08-21 14:00 | XMS_ITS | Encounter Summary ---
Author Organization [facility] Address [address] [place] [address] Care Team Providers Care Managing Partner Digital Content Marketing [employer] [place] Name Role Phone Kassy Jay MD Primary Care Provider [phone] Encounter Details Date Type Department Care Team (Late Contact Info) Description 01/01/[address] [facility] Childrens Respiratory and Sleep Medicine [address] [facility] [address] [phone] Gustavo Sims Social History Tobacco Use Types Packs/Day Years Used Date Smoking Tobacco: Never Assessed Comments Unknown Sex and Gender Information Value Date Recorded Sex Assigned at Not on file Legal Sex Female 4:02 AM CATTLE FARMER Gender Identity Not on file Sexual Orientation Not on file documented as of this encounter Plan of Treatment Upcoming Encounters Date Type Department Care Team (Late Contact Info) Description 09/25/2025 8:30 AM CATTLE FARMER Video Visit [facility] Adult Psychiatry [place] [address] [phone] Argelia Law NP [address] [id number] documented as of this encounter Visit Diagnoses Not on filedocumented in this encounter Additional Health Concerns Infection Onset Date Last Indicated Resolved Time R/O COVID-19 06/02/2021 06/03/2021 06/03/2021 7:34 PM CDT R/O COVID-19 12/22/2022 12/22/2022 12/22/2022 12:2 5 PM CDT R/O COVID-19 09/07/2023 09/07/2023 09/07/2023 9:52 PM CATTLE FARMER documented as of this encounter Care Teams Managing Partner Digital Content Marketing [place] Relationship Specialty Start Date End Date Kassy Jay MD [address] [facility] [place] [address] PCP - General Family Practice 12/04/22 documented as of this encounter
--- OUTSIDE RECORDS SUMMARY | 2025-08-21 14:00 | XMS_ITS | Encounter Summary ---
Author Organization [facility] Address [address] [place] [address] Care Team Providers Care Gore Cutter Name Role Phone Kassy Jay MD Primary Care Provider [phone] Encounter Details Date Type Department Care Team (Late Contact Info) Description 06/15/2000 Outpatient Historical [facility] Pediatrics - [facility] [address] [place] [address] [place] [address] [place] [address] Social History Tobacco Use Types Packs/Day Years Used Date Smoking Tobacco: Never Assessed Comments Unknown Sex and Gender Information Value Date Recorded Sex Assigned at Not on file Legal Sex Female 4:02 AM DISPATCHER SERVICE OR WORK Gender Identity Not on file Sexual Orientation Not on file documented as of this encounter Plan of Treatment Upcoming Encounters Date Type Department Care Team (Late Contact Info) Description 09/25/2025 8:30 AM DISPATCHER SERVICE OR WORK Video Visit [facility] Adult Psychiatry [place] [address] [phone] Argelia Law NP [address] [address] documented as of this encounter Visit Diagnoses Not on filedocumented in this encounter Additional Health Concerns Infection Onset Date Last Indicated Resolved Time R/O COVID-19 06/02/2021 06/03/2021 06/03/2021 7:34 PM CDT R/O COVID-19 12/22/2022 12/22/2022 12/22/2022 12:2 5 PM CDT R/O COVID-19 09/07/2023 09/07/2023 09/07/2023 9:52 PM DISPATCHER SERVICE OR WORK documented as of this encounter Care Teams Gore Cutter Relationship Specialty Start Date End Date Kassy Jay MD [address] [place] [address] [address] PCP - General Family Practice 12/04/22 documented as of this encounter
--- OUTSIDE RECORDS SUMMARY | 2025-08-21 14:00 | XMS_ITS | Encounter Summary ---
Author Organization [facility] Address [address] [place] [address] Care Team Providers Care Communications Analyst Name Role Phone Kassy Jay MD Primary Care Provider Encounter Details Date Type Department Care Team (Late Contact Info) Description 07/13/2001 Outpatient Historical [facility] Pediatrics - [facility] [address] [place] [address] [place] [address] [place] [address] Social History Tobacco Use Types Packs/Day Years Used Date Smoking Tobacco: Never Assessed Comments Unknown Sex and Gender Information Value Date Recorded Sex Assigned at Not on file Legal Sex Female 4:02 AM EDITOR FARM JOURNAL Gender Identity Not on file Sexual Orientation Not on file documented as of this encounter Plan of Treatment Upcoming Encounters Date Type Department Care Team (Late Contact Info) Description 09/25/2025 8:30 AM EDITOR FARM JOURNAL Video Visit [facility] Adult Psychiatry [place] [address] [phone] Argelia Law NP [address] [address] documented as of this encounter Visit Diagnoses Not on filedocumented in this encounter Additional Health Concerns Infection Onset Date Last Indicated Resolved Time R/O COVID-19 06/02/2021 06/03/2021 06/03/2021 7:34 PM CDT R/O COVID-19 12/22/2022 12/22/2022 12/22/2022 12:2 5 PM CDT R/O COVID-19 09/07/2023 09/07/2023 09/07/2023 9:52 PM EDITOR FARM JOURNAL documented as of this encounter Care Teams Communications Analyst Relationship Specialty Start Date End Date Kassy Jay MD [address] [place] [address] [address] PCP - General Family Practice 12/04/22 documented as of this encounter
--- OUTSIDE RECORDS SUMMARY | 2025-08-21 14:00 | XMS_ITS | Encounter Summary ---
Author Organization [facility] Address [address] [place] [address] Care Team Providers Care Manufacture Specialist Name Role Phone Kassy Jay MD Primary Care Provider [phone] Encounter Details Date Type Department Care Team (Late Contact Info) Description 01/01/2006 Outpatient Historical [facility] Childrens Respiratory and Sleep Medicine [address] [phone] Gustavo Sims Social History Tobacco Use Types Packs/Day Years Used Date Smoking Tobacco: Never Assessed Comments Unknown Sex and Gender Information Value Date Recorded Sex Assigned at Not on file Legal Sex Female 4:02 AM SERVICE DELIVERY DIRECTOR Gender Identity Not on file Sexual Orientation Not on file documented as of this encounter Plan of Treatment Upcoming Encounters Date Type Department Care Team (Late Contact Info) Description 09/25/2025 8:30 AM SERVICE DELIVERY DIRECTOR Video Visit [facility] Adult Psychiatry [place] [address] [phone] Argelia Law NP [address] [phone] documented as of this encounter Visit Diagnoses Not on filedocumented in this encounter Additional Health Concerns Infection Onset Date Last Indicated Resolved Time R/O COVID-19 06/02/2021 06/03/2021 06/03/2021 7:34 PM CDT R/O COVID-19 12/22/2022 12/22/2022 12/22/2022 12:2 5 PM CDT R/O COVID-19 09/07/2023 09/07/2023 09/07/2023 9:52 PM SERVICE DELIVERY DIRECTOR documented as of this encounter Care Teams Manufacture Specialist Relationship Specialty Start Date End Date Kassy Jay MD [address] [facility] [place] [address] PCP - General Family Practice 12/04/22 documented as of this encounter
--- OUTSIDE RECORDS SUMMARY | 2025-08-21 14:00 | XMS_ITS | Encounter Summary ---
Author Organization [facility] Address [address] [place] [address] Care Team Providers Care Farrowing Manager Name Role Phone Kassy Jay MD Primary Care Provider [phone] Encounter Details Date Type Department Care Team (Late Contact Info) Description 02/24/2001 Outpatient Historical [facility] Pediatrics - [facility] [address] [place] [address] [place] [address] [place] [address] Social History Tobacco Use Types Packs/Day Years Used Date Smoking Tobacco: Never Assessed Comments Unknown Sex and Gender Information Value Date Recorded Sex Assigned at Not on file Legal Sex Female 4:02 AM PIN CLEANER Gender Identity Not on file Sexual Orientation Not on file documented as of this encounter Plan of Treatment Upcoming Encounters Date Type Department Care Team (Late Contact Info) Description 09/25/2025 8:30 AM PIN CLEANER Video Visit [facility] Adult Psychiatry [place] [address] [phone] Argelia Law NP [address] [address] documented as of this encounter Visit Diagnoses Not on filedocumented in this encounter Additional Health Concerns Infection Onset Date Last Indicated Resolved Time R/O COVID-19 06/02/2021 06/03/2021 06/03/2021 7:34 PM CDT R/O COVID-19 12/22/2022 12/22/2022 12/22/2022 12:2 5 PM CDT R/O COVID-19 09/07/2023 09/07/2023 09/07/2023 9:52 PM PIN CLEANER documented as of this encounter Care Teams Farrowing Manager Relationship Specialty Start Date End Date Kassy Jay MD [address] [place] [address] [address] PCP - General Family Practice 12/04/22 documented as of this encounter
--- OUTSIDE RECORDS SUMMARY | 2025-08-21 14:00 | XMS_ITS | Encounter Summary ---
Author Organization [facility] Address [address] [place] [address] Care Team Providers Care Milled Rubber Tender Name Role Phone Kassy Jay MD Primary Care Provider [phone] Reason for Visit * Reason Onset Date Comments Medication Refill 08/21/2025 Encounter Details Date Type Department Care Team (Late st Contact Info) Description 08/21/2025 Refill [facility] Primary Care - [place] [address] [place] [phone] Kassy Jay MD [address] [place] [phone] Moderate persistent asthma without complication Social History Tobacco Use Types Packs/Day Years [...] Never 02/09/2020 How often do you attend taoist or faith serv ices? 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 Not on file Not on file Not on file documented as of this encounter Plan of Treatment Upcoming Encounters Date Type Department Care Team (Late st Contact Info) Description 09/25/2025 8:30 AM TENNIS CENTRE MANAGER Video Visit [facility] Adult Psychiatry [place] [address] [phone] Argelia Law NP [address] [address] documented as of this encounter Visit Diagnoses Diagnosis Moderate persistent asthma without complication Unspecified asthma documented in this encounter Care Teams Milled Rubber Tender Relationship Specialty Start Date End Date Kassy Jay MD [address] [place] [phone] PCP - General Family Practice 12/04/22 documented as of this encounter
--- OUTSIDE RECORDS SUMMARY | 2025-08-21 14:00 | XMS_ITS | Encounter Summary ---
Author Organization [facility] Address [address] [place] [address] Care Team Providers Care Strain Technician Name Role Phone Kassy Jay MD Primary Care Provider [phone] Encounter Details Date Type Department Care Team (Late Contact Info) Description 04/13/2002 Outpatient Historical [facility] Pediatrics - [facility] [address] [place] [address] [place] [address] [address] [place] [address] Social History Tobacco Use Types Packs/Day Years Used Date Smoking Tobacco: Never Assessed Comments Unknown Sex and Gender Information Value Date Recorded Sex Assigned at Not on file Legal Sex Female 4:02 AM VALUE ANALYSIS COORDINATOR Gender Identity Not on file Sexual Orientation Not on file documented as of this encounter Plan of Treatment Upcoming Encounters Date Type Department Care Team (Late Contact Info) Description 09/25/2025 8:30 AM VALUE ANALYSIS COORDINATOR Video Visit [facility] Adult Psychiatry [place] [address] [phone] Argelia Law NP [address] [address] documented as of this encounter Visit Diagnoses Not on filedocumented in this encounter Additional Health Concerns Infection Onset Date Last Indicated Resolved Time R/O COVID-19 06/02/2021 06/03/2021 06/03/2021 7:34 PM CDT R/O COVID-19 12/22/2022 12/22/2022 12/22/2022 12:2 5 PM CDT R/O COVID-19 09/07/2023 09/07/2023 09/07/2023 9:52 PM VALUE ANALYSIS COORDINATOR documented as of this encounter Care Teams Strain Technician Relationship Specialty Start Date End Date Kassy Jay MD [address] [place] [address] [phone] PCP - General Family Practice 12/04/22 documented as of this encounter
--- OUTSIDE RECORDS SUMMARY | 2025-08-21 14:00 | XMS_ITS | Encounter Summary ---
Author Organization [facility] Address [address] [place] [address] Care Team Providers Care Final Tester Name Role Phone Kassy Jay MD Primary Care Provider [phone] Encounter Details Date Type Department Care Team (Late Contact Info) Description 1998 Outpatient Historical [facility] Pediatrics - [facility] [address] [place] [address] Darren Tabor MD NO ADDRESS ON FILE Social History Tobacco Use Types Packs/Day Years Used Date Smoking Tobacco: Never Assessed Comments Unknown Sex and Gender Information Value Date Recorded Sex Assigned at Not on file Legal Sex Female 4:02 AM SENIOR SOFTWARE TEST ENGINEER Gender Identity Not on file Sexual Orientation Not on file documented as of this encounter Plan of Treatment Upcoming Encounters Date Type Department Care Team (Late Contact Info) Description 09/25/2025 8:30 AM SENIOR SOFTWARE TEST ENGINEER Video Visit [facility] Adult Psychiatry [place] [address] [phone] Thanh, Argelia Lopez NP [address] [address] documented as of this encounter Visit Diagnoses Not on filedocumented in this encounter Additional Health Concerns Infection Onset Date Last Indicated Resolved Time R/O COVID-19 06/02/2021 06/03/2021 06/03/2021 7:34 PM CDT R/O COVID-19 12/22/2022 12/22/2022 12/22/2022 12:2 5 PM CDT R/O COVID-19 09/07/2023 09/07/2023 09/07/2023 9:52 PM SENIOR SOFTWARE TEST ENGINEER documented as of this encounter Care Teams Final Tester Relationship Specialty Start Date End Date Kassy Jay MD [address] [facility] [place] [phone] PCP - General Family Practice 12/04/22 documented as of this encounter
--- OUTSIDE RECORDS SUMMARY | 2025-08-21 14:00 | XMS_ITS | Encounter Summary ---
Author Organization [facility] Address [address] [place] [address] Care Team Providers Care Chucking Machine Operator Name Role Phone Kassy Jay MD Primary Care Provider [phone] Encounter Details Date Type Department Care Team (Late st Contact Info) Description 04/19/2007 Orders Only [facility] Pediatrics - [facility] [address] [place] [address] [place] [address] [place] [address] Social History Tobacco Use Types Packs/Day Years Used Date Smoking Tobacco: Never Assessed Comments Unknown Sex and Gender Information Value Date Recorded Sex Assigned at Not on file Legal Sex Female 4:02 AM BLACK OFF WORKER Gender Identity Not on file Sexual [...] earache. HISTORY: HPI: Has been vacationing in [place]. Has been swimming. Developed left ear pain [...] st Contact Info) Description 09/25/2025 8:30 AM BLACK OFF WORKER Video Visit [facility] Adult Psychiatry [place] [address] [address] [place] [phone] [place], Argelia Lopez NP [address] [address] [place] [address] documented as of this encounter Visit Diagnoses Not on filedocumented in this encounter Additional Health Concerns Infection Onset Date Last Indicated Resolved Time R/O COVID-19 06/02/2021 06/03/2021 06/03/2021 7:34 PM CDT R/O COVID-19 12/22/2022 12/22/2022 12/22/2022 12:2 5 PM CDT R/O COVID-19 09/07/2023 09/07/2023 09/07/2023 9:52 PM BLACK OFF WORKER documented as of this encounter Care Teams Chucking Machine Operator Relationship Specialty Start Date End Date Kassy Jay MD [address] [facility] [place] [phone] PCP - General Family Practice 12/04/22 documented as of this encounter
--- OUTSIDE RECORDS SUMMARY | 2025-08-21 14:00 | XMS_ITS | Encounter Summary ---
Author Organization [facility] Address [address] [place] [address] Care Team Providers Care Naval Surface Fire Support Planner Name Role Phone Kassy Jay MD Primary Care Provider [phone] Encounter Details Date Type Department Care Team (Late st Contact Info) Description 05/16/2006 Orders Only [facility] Pediatrics - [facility] [address] [place] [address] [place] [address] [place] [address] Social History Tobacco Use Types Packs/Day Years Used Date Smoking Tobacco: Never Assessed Comments Unknown Sex and Gender Information Value Date Recorded Sex Assigned at Not on file Legal Sex Female 4:02 AM FAMILY LAW PARALEGAL Gender Identity Not on file Sexual Orientation [...] NEW PRESCRIPTION, 05/16/2006. LAB ORDERS: Order number: [id number] Test Ordered: STREPTOCOCCUS, GROUP A CULTURE 4485 Order number: [id number] Test Ordered: RAPID STREP [id number] RETURN VISIT/GUIDANCE: Instructed to:Take OTC meds as directed Call office if concerned or if child is no better Return if symptoms are not resolved. Call thursday for results Electronically Signed by: Lacie Malik M.D. on Tuesday, May 16, 2006 documented in this encounter Plan of Treatment Upcoming Encounters Date Type Department Care Team (Late st Contact Info) Description 09/25/2025 8:30 AM FAMILY LAW PARALEGAL Video Visit [facility] Adult Psychiatry [place] [address] [address] Argelia Law NP [address] [address] documented as of this encounter Visit Diagnoses Not on filedocumented in this encounter Additional Health Concerns Infection Onset Date Last Indicated Resolved Time R/O COVID-19 06/02/2021 06/03/2021 06/03/2021 7:34 PM CDT R/O COVID-19 12/22/2022 12/22/2022 12/22/2022 12:2 5 PM CDT R/O COVID-19 09/07/2023 09/07/2023 09/07/2023 9:52 PM FAMILY LAW PARALEGAL documented as of this encounter Care Teams Naval Surface Fire Support Planner Relationship Specialty Start Date End Date Kassy Jay MD [address] [place] [address] PCP - General Family Practice 12/04/22 documented as of this encounter
--- OUTSIDE RECORDS SUMMARY | 2025-08-21 14:00 | XMS_ITS | Encounter Summary ---
Author Organization [facility] Address [address] [place] [address] Care Team Providers Care Grinding Wheel Dresser Name Role Phone Kassy Jay MD Primary Care Provider [phone] Encounter Details Date Type Department Care Team (Late Contact Info) Description 05/16/2006 Outpatient Historical [facility] Pediatrics - [facility] [address] [place] [address] [place] [address] [address] [place] [address] Social History Tobacco Use Types Packs/Day Years Used Date Smoking Tobacco: Never Assessed Comments Unknown Sex and Gender Information Value Date Recorded Sex Assigned at Not on file Legal Sex Female 4:02 AM FINDING FASTENER Gender Identity Not on file Sexual Orientation Not on file documented as of this encounter Plan of Treatment Upcoming Encounters Date Type Department Care Team (Late Contact Info) Description 09/25/2025 8:30 AM FINDING FASTENER Video Visit [facility] Adult Psychiatry [place] [address] [phone] Argelia Law NP [address] [address] documented as of this encounter Visit Diagnoses Not on filedocumented in this encounter Additional Health Concerns Infection Onset Date Last Indicated Resolved Time R/O COVID-19 06/02/2021 06/03/2021 06/03/2021 7:34 PM CDT R/O COVID-19 12/22/2022 12/22/2022 12/22/2022 12:2 5 PM CDT R/O COVID-19 09/07/2023 09/07/2023 09/07/2023 9:52 PM FINDING FASTENER documented as of this encounter Care Teams Grinding Wheel Dresser Relationship Specialty Start Date End Date Kassy Jay MD [address] [place] [phone] PCP - General Family Practice 12/04/22 documented as of this encounter
--- OUTSIDE RECORDS SUMMARY | 2025-08-21 14:00 | XMS_ITS | Encounter Summary ---
Author Organization [facility] Address [address] [place] [address] Care Team Providers Care Facetor Name Role Phone Kassy Jay MD Primary Care Provider [phone] Encounter Details Date Type Department Care Team (Late Contact Info) Description 01/21/2006 Outpatient Historical [facility] Pediatrics - [facility] [address] [facility] [address] [place] [address] [place] [address] [place] [address] Social History Tobacco Use Types Packs/Day Years Used Date Smoking Tobacco: Never Assessed Comments Unknown Sex and Gender Information Value Date Recorded Sex Assigned at Not on file Legal Sex Female 4:02 AM MANUFACTURING PLANT MANAGER Gender Identity Not on file Sexual Orientation Not on file documented as of this encounter Plan of Treatment Upcoming Encounters Date Type Department Care Team (Late Contact Info) Description 09/25/2025 8:30 AM MANUFACTURING PLANT MANAGER Video Visit [facility] Adult Psychiatry [place] [address] [phone] Argelia Law NP [address] [address] documented as of this encounter Visit Diagnoses Not on filedocumented in this encounter Additional Health Concerns Infection Onset Date Last Indicated Resolved Time R/O COVID-19 06/02/2021 06/03/2021 06/03/2021 7:34 PM CDT R/O COVID-19 12/22/2022 12/22/2022 12/22/2022 12:2 5 PM CDT R/O COVID-19 09/07/2023 09/07/2023 09/07/2023 9:52 PM MANUFACTURING PLANT MANAGER documented as of this encounter Care Teams Facetor Relationship Specialty Start Date End Date Kassy Jay MD [address] [place] [address] [phone] PCP - General Family Practice 12/04/22 documented as of this encounter
--- OUTSIDE RECORDS SUMMARY | 2025-08-21 14:00 | XMS_ITS | Encounter Summary ---
Author Organization [facility] Address [address] [place] [address] Care Team Providers Care Food Service Employee Name Role Phone Kassy Jay MD Primary Care Provider [phone] Encounter Details Date Type Department Care Team (Late Contact Info) Description 1998 Outpatient Historical [facility] Pediatrics - [facility] [address] [place] [address] Darren Tabor MD NO ADDRESS ON FILE Social History Tobacco Use Types Packs/Day Years Used Date Smoking Tobacco: Never Assessed Comments Unknown Sex and Gender Information Value Date Recorded Sex Assigned at Not on file Legal Sex Female 4:02 AM CAD CAM PROGRAMMER Gender Identity Not on file Sexual Orientation Not on file documented as of this encounter Plan of Treatment Upcoming Encounters Date Type Department Care Team (Late Contact Info) Description 09/25/2025 8:30 AM CAD CAM PROGRAMMER Video Visit [facility] Adult Psychiatry [place] [address] [phone] Thanh, Argelia Lopez NP [address] [address] documented as of this encounter Visit Diagnoses Not on filedocumented in this encounter Additional Health Concerns Infection Onset Date Last Indicated Resolved Time R/O COVID-19 06/02/2021 06/03/2021 06/03/2021 7:34 PM CDT R/O COVID-19 12/22/2022 12/22/2022 12/22/2022 12:2 5 PM CDT R/O COVID-19 09/07/2023 09/07/2023 09/07/2023 9:52 PM CAD CAM PROGRAMMER documented as of this encounter Care Teams Food Service Employee Relationship Specialty Start Date End Date Kassy Jay MD [address] [facility] [place] [phone] PCP - General Family Practice 12/04/22 documented as of this encounter
--- OUTSIDE RECORDS SUMMARY | 2025-08-21 14:00 | XMS_ITS | Encounter Summary ---
Author Organization [facility] Address [address] [place] [address] Care Team Providers Care Yoker Name Role Phone Kassy Jay MD Primary Care Provider [phone] Encounter Details Date Type Department Care Team (Late Contact Info) Description 08/23/2001 Outpatient Historical [facility] Pediatrics - [facility] [address] [place] [address] [place] [address] [address] [place] [address] Social History Tobacco Use Types Packs/Day Years Used Date Smoking Tobacco: Never Assessed Comments Unknown Sex and Gender Information Value Date Recorded Sex Assigned at Not on file Legal Sex Female 4:02 AM HYPERION DEVELOPER Gender Identity Not on file Sexual Orientation Not on file documented as of this encounter Plan of Treatment Upcoming Encounters Date Type Department Care Team (Late Contact Info) Description 09/25/2025 8:30 AM HYPERION DEVELOPER Video Visit [facility] Adult Psychiatry [place] [address] [phone] Argelia Law NP [address] [address] documented as of this encounter Visit Diagnoses Not on filedocumented in this encounter Additional Health Concerns Infection Onset Date Last Indicated Resolved Time R/O COVID-19 06/02/2021 06/03/2021 06/03/2021 7:34 PM CDT R/O COVID-19 12/22/2022 12/22/2022 12/22/2022 12:2 5 PM CDT R/O COVID-19 09/07/2023 09/07/2023 09/07/2023 9:52 PM HYPERION DEVELOPER documented as of this encounter Care Teams Yoker Relationship Specialty Start Date End Date Kassy Jay MD [address] [place] [address] [phone] PCP - General Family Practice 12/04/22 documented as of this encounter
--- OUTSIDE RECORDS SUMMARY | 2025-08-21 14:00 | XMS_ITS | Encounter Summary ---
Author Organization [facility] Address [address] [place] [address] Care Team Providers Care Water Aerobics Instructor Name Role Phone Kassy Jay MD Primary Care Provider [phone] Encounter Details Date Type Department Care Team ([facility] Contact Info) Description 08/11/2007 Outpatient Historical [facility] Pediatrics - [facility] [address] [facility] [address] [place] [address] [place] [address] [address] [place] [address] Social History Tobacco Use Types Packs/Day Years Used Date Smoking Tobacco: Never Assessed Comments Unknown Sex and Gender Information Value Date Recorded Sex Assigned at Not on file Legal Sex Female 4:02 AM DATA MANAGEMENT ENGINEER Gender Identity Not on file Sexual Orientation Not on file documented as of this encounter Last Filed Vital Signs Vital Sign Reading Time Taken Comments Blood Pressure - - Pulse 104 08/11/2007 9:45 AM DATA MANAGEMENT ENGINEER Temperature 36.7 C (98.1 F) 08/11/2007 9:45 AM DATA MANAGEMENT ENGINEER Respiratory Rate 20 08/11/2007 9:45 AM DATA MANAGEMENT ENGINEER Oxygen Saturation - - Inhaled Oxygen Concentration - - Weight 34 kg (75 lb) 08/11/2007 9:45 AM DATA MANAGEMENT ENGINEER Height - - Body Mass Index - - documented in this encounter Plan of Treatment Upcoming Encounters Date Type Department Care Team (Late Contact Info) Description 09/25/2025 8:30 AM DATA MANAGEMENT ENGINEER Video Visit [facility] Adult Psychiatry [place] [address] [address] [address] [place] [phone] Argelia Law NP [address] [facility] [address] [place] [address] documented as of this encounter Visit Diagnoses Not on filedocumented in this encounter Additional Health Concerns Infection Onset Date Last Indicated Resolved Time R/O COVID-19 06/02/2021 06/03/2021 06/03/2021 7:34 PM CDT R/O COVID-19 12/22/2022 12/22/2022 12/22/2022 12:2 5 PM CDT R/O COVID-19 09/07/2023 09/07/2023 09/07/2023 9:52 PM DATA MANAGEMENT ENGINEER documented as of this encounter Care Teams Water Aerobics Instructor Relationship Specialty Start Date End Date Kassy Jay MD [address] [place] [address] PCP - General Family Practice 12/04/22 documented as of this encounter
--- OUTSIDE RECORDS SUMMARY | 2025-08-21 14:00 | XMS_ITS | Encounter Summary ---
Author Organization [facility] Address [address] [place] [address] Care Team Providers Care Application Support Manager Name Role Phone Kassy Jay MD Primary Care Provider [phone] Encounter Details Date Type Department Care Team (Late Contact Info) Description 10/20/2001 Outpatient Historical [facility] Pediatrics - [facility] [address] [place] [address] [place] [address] [place] [address] Social History Tobacco Use Types Packs/Day Years Used Date Smoking Tobacco: Never Assessed Comments Unknown Sex and Gender Information Value Date Recorded Sex Assigned at Not on file Legal Sex Female 4:02 AM FISHING INSTRUCTOR Gender Identity Not on file Sexual Orientation Not on file documented as of this encounter Plan of Treatment Upcoming Encounters Date Type Department Care Team (Late Contact Info) Description 09/25/2025 8:30 AM FISHING INSTRUCTOR Video Visit [facility] Adult Psychiatry [place] [address] [phone] Argelia Law NP [address] [address] documented as of this encounter Visit Diagnoses Not on filedocumented in this encounter Additional Health Concerns Infection Onset Date Last Indicated Resolved Time R/O COVID-19 06/02/2021 06/03/2021 06/03/2021 7:34 PM CDT R/O COVID-19 12/22/2022 12/22/2022 12/22/2022 12:2 5 PM CDT R/O COVID-19 09/07/2023 09/07/2023 09/07/2023 9:52 PM FISHING INSTRUCTOR documented as of this encounter Care Teams Application Support Manager Relationship Specialty Start Date End Date Kassy Jay MD [address] [place] [address] [phone] PCP - General Family Practice 12/04/22 documented as of this encounter
--- OUTSIDE RECORDS SUMMARY | 2025-08-21 14:00 | XMS_ITS | Encounter Summary ---
Author Organization [facility] Address [address] [place] [address] Care Team Providers Care Shot Blaster Name Role Phone Kassy Jay MD Primary Care Provider [phone] Encounter Details Date Type Department Care Team (Late Contact Info) Description 01/21/2006 Outpatient Historical [facility] Pediatrics - [facility] [address] [address] [facility] [address] [place] [address] [place] [address] [address] [place] [address] Social History Tobacco Use Types Packs/Day Years Used Date Smoking Tobacco: Never Assessed Comments Unknown Sex and Gender Information Value Date Recorded Sex Assigned at Not on file Legal Sex Female 4:02 AM B OPERATOR Gender Identity Not on file Sexual Orientation Not on file documented as of this encounter Plan of Treatment Upcoming Encounters Date Type Department Care Team (Late Contact Info) Description 09/25/2025 8:30 AM B OPERATOR Video Visit [facility] Adult Psychiatry [place] [address] [phone] Argelia Law NP [address] [address] documented as of this encounter Visit Diagnoses Not on filedocumented in this encounter Additional Health Concerns Infection Onset Date Last Indicated Resolved Time R/O COVID-19 06/02/2021 06/03/2021 06/03/2021 7:34 PM CDT R/O COVID-19 12/22/2022 12/22/2022 12/22/2022 12:2 5 PM CDT R/O COVID-19 09/07/2023 09/07/2023 09/07/2023 9:52 PM B OPERATOR documented as of this encounter Care Teams Shot Blaster Relationship Specialty Start Date End Date Kassy Jay MD [address] [place] [address] [phone] PCP - General Family Practice 12/04/22 documented as of this encounter
--- OUTSIDE RECORDS SUMMARY | 2025-08-21 14:00 | XMS_ITS | Encounter Summary ---
Author Organization [facility] Address [address] [place] [address] Care Team Providers Care Global Ceo Name Role Phone Kassy Jay MD Primary Care Provider [phone] Encounter Details Date Type Department Care Team (Late Contact Info) Description 06/30/2007 Outpatient Historical [facility] Pediatrics - [facility] [address] [facility] [address] [place] [address] [place] [address] [place] [address] Social History Tobacco Use Types Packs/Day Years Used Date Smoking Tobacco: Never Assessed Comments Unknown Sex and Gender Information Value Date Recorded Sex Assigned at Not on file Legal Sex Female 4:02 AM CASINO ATTENDANT Gender Identity Not on file Sexual Orientation Not on file documented as of this encounter Plan of Treatment Upcoming Encounters Date Type Department Care Team (Late Contact Info) Description 09/25/2025 8:30 AM CASINO ATTENDANT Video Visit [facility] Adult Psychiatry [place] [address] [phone] Argelia Law NP [address] [address] documented as of this encounter Visit Diagnoses Not on filedocumented in this encounter Additional Health Concerns Infection Onset Date Last Indicated Resolved Time R/O COVID-19 06/02/2021 06/03/2021 06/03/2021 7:34 PM CDT R/O COVID-19 12/22/2022 12/22/2022 12/22/2022 12:2 5 PM CDT R/O COVID-19 09/07/2023 09/07/2023 09/07/2023 9:52 PM CASINO ATTENDANT documented as of this encounter Care Teams Global Ceo Relationship Specialty Start Date End Date Kassy Jay MD [address] [place] [address] [phone] PCP - General Family Practice 12/04/22 documented as of this encounter
--- OUTSIDE RECORDS SUMMARY | 2025-08-21 14:00 | XMS_ITS | Encounter Summary ---
Author Organization [facility] Address [address] [place] [address] Care Team Providers Care Crater And Packer Name Role Phone Kassy Jay MD Primary Care Provider [phone] Encounter Details Date Type Department Care Team (Late Contact Info) Description 05/02/2002 Outpatient Historical [facility] Pediatrics - [facility] [address] [facility] [address] [place] [address] [place] [address] [place] [address] Social History Tobacco Use Types Packs/Day Years Used Date Smoking Tobacco: Never Assessed Comments Unknown Sex and Gender Information Value Date Recorded Sex Assigned at Not on file Legal Sex Female 4:02 AM ROLLING DOWN MACHINE OPERATOR Gender Identity Not on file Sexual Orientation Not on file documented as of this encounter Plan of Treatment Upcoming Encounters Date Type Department Care Team (Late Contact Info) Description 09/25/2025 8:30 AM ROLLING DOWN MACHINE OPERATOR Video Visit [facility] Adult Psychiatry [place] [address] [phone] Argelia Law NP [address] [address] documented as of this encounter Visit Diagnoses Not on filedocumented in this encounter Additional Health Concerns Infection Onset Date Last Indicated Resolved Time R/O COVID-19 06/02/2021 06/03/2021 06/03/2021 7:34 PM CDT R/O COVID-19 12/22/2022 12/22/2022 12/22/2022 12:2 5 PM CDT R/O COVID-19 09/07/2023 09/07/2023 09/07/2023 9:52 PM ROLLING DOWN MACHINE OPERATOR documented as of this encounter Care Teams Crater And Packer Relationship Specialty Start Date End Date Kassy Jay MD [address] [place] [address] [phone] PCP - General Family Practice 12/04/22 documented as of this encounter
--- OUTSIDE RECORDS SUMMARY | 2025-08-21 14:00 | XMS_ITS | Encounter Summary ---
Author Organization [facility] Address [address] [place] [address] Care Team Providers Care Student Financial Services Counselor Name Role Phone Kassy Jay MD Primary Care Provider [phone] Encounter Details Date Type Department Care Team (Late Contact Info) Description 03/29/2001 Outpatient Historical [facility] Pediatrics - [facility] [address] [facility] [address] [facility] [address] [place] [address] [place] [address] [place] [address] Social History Tobacco Use Types Packs/Day Years Used Date Smoking Tobacco: Never Assessed Comments Unknown Sex and Gender Information Value Date Recorded Sex Assigned at Not on file Legal Sex Female 4:02 AM RESEARCH COMPLIANCE SPECIALIST Gender Identity Not on file Sexual Orientation Not on file documented as of this encounter Plan of Treatment Upcoming Encounters Date Type Department Care Team (Late Contact Info) Description 09/25/2025 8:30 AM RESEARCH COMPLIANCE SPECIALIST Video Visit [facility] Adult Psychiatry Var[place] [address] [phone] Argelia Law NP [address] [address] documented as of this encounter Visit Diagnoses Not on filedocumented in this encounter Additional Health Concerns Infection Onset Date Last Indicated Resolved Time R/O COVID-19 06/02/2021 06/03/2021 06/03/2021 7:34 PM CDT R/O COVID-19 12/22/2022 12/22/2022 12/22/2022 12:2 5 PM CDT R/O COVID-19 09/07/2023 09/07/2023 09/07/2023 9:52 PM RESEARCH COMPLIANCE SPECIALIST documented as of this encounter Care Teams Student Financial Services Counselor Relationship Specialty Start Date End Date Kassy Jay MD [address] [place] [address] [phone] PCP - General Family Practice 12/04/22 documented as of this encounter
--- OUTSIDE RECORDS SUMMARY | 2025-08-21 14:00 | XMS_ITS | Encounter Summary ---
Author Organization [facility] Address [address] [place] [address] Care Team Providers Care Print Buyer Name Role Phone Kassy Jay MD Primary Care Provider [phone] Encounter Details Date Type Department Care Team (Late Contact Info) Description 07/03/[address] [facility] Pediatrics - [facility] [address] [facility] [address] [place] [address] [place] [address] [place] [address] Social History Tobacco Use Types Packs/Day Years Used Date Smoking Tobacco: Never Assessed Comments Unknown Sex and Gender Information Value Date Recorded Sex Assigned at Not on file Legal Sex Female 4:02 AM FORM SETTER STEEL PAN FORMS Gender Identity Not on file Sexual Orientation [...] (Late Contact Info) Description 09/25/2025 8:30 AM FORM SETTER STEEL PAN FORMS Video Visit [facility] Adult Psychiatry [place] [address] [address] [place] [address] Argelia Law NP [address] [address] [place] [address] documented as of this encounter Visit Diagnoses Not on filedocumented in this encounter Additional Health Concerns Infection Onset Date Last Indicated Resolved Time R/O COVID-19 06/02/2021 06/03/2021 06/03/2021 7:34 PM CDT R/O COVID-19 12/22/2022 12/22/2022 12/22/2022 12:2 5 PM CDT R/O COVID-19 09/07/2023 09/07/2023 09/07/2023 9:52 PM FORM SETTER STEEL PAN FORMS documented as of this encounter Care Teams Print Buyer Relationship Specialty Start Date End Date Kassy Jay MD [address] [facility] [place] [place] [phone] PCP - General Family Practice 12/04/22 documented as of this encounter
--- OUTSIDE RECORDS SUMMARY | 2025-08-21 14:00 | XMS_ITS | Encounter Summary ---
Author Organization [facility] Address [address] [place] [address] Care Team Providers Care Instrument Fitter Name Role Phone Kassy Jay MD Primary Care Provider [phone] Encounter Details Date Type Department Care Team (Late Contact Info) Description 02/26/1999 Outpatient Historical [facility] Pediatrics - [facility] [address] [place] [address] Darren Tabor MD NO ADDRESS ON FILE Social History Tobacco Use Types Packs/Day Years Used Date Smoking Tobacco: Never Assessed Comments Unknown Sex and Gender Information Value Date Recorded Sex Assigned at Not on file Legal Sex Female 4:02 AM MEDICAL ASSISTANT Gender Identity Not on file Sexual Orientation Not on file documented as of this encounter Plan of Treatment Upcoming Encounters Date Type Department Care Team (Late Contact Info) Description 09/25/2025 8:30 AM MEDICAL ASSISTANT Video Visit [facility] Adult Psychiatry [place] [address] [phone] Thanh, Argelia Lopez NP [address] [address] documented as of this encounter Visit Diagnoses Not on filedocumented in this encounter Additional Health Concerns Infection Onset Date Last Indicated Resolved Time R/O COVID-19 06/02/2021 06/03/2021 06/03/2021 7:34 PM CDT R/O COVID-19 12/22/2022 12/22/2022 12/22/2022 12:2 5 PM CDT R/O COVID-19 09/07/2023 09/07/2023 09/07/2023 9:52 PM MEDICAL ASSISTANT documented as of this encounter Care Teams Instrument Fitter Relationship Specialty Start Date End Date Kassy Jay MD [address] [facility] [place] [phone] PCP - General Family Practice 12/04/22 documented as of this encounter
--- OUTSIDE RECORDS SUMMARY | 2025-08-21 14:00 | XMS_ITS | Encounter Summary ---
Author Organization [facility] Address [address] [place] [address] Care Team Providers Care Steamtable Worker Name Role Phone Kassy Jay MD Primary Care Provider [phone] Encounter Details Date Type Department Care Team (Late Contact Info) Description 07/29/2005 Outpatient Historical [facility] Pediatrics - [facility] [address] [place] [address] [place] [address] [address] [place] [address] Social History Tobacco Use Types Packs/Day Years Used Date Smoking Tobacco: Never Assessed Comments Unknown Sex and Gender Information Value Date Recorded Sex Assigned at Not on file Legal Sex Female 4:02 AM JACK WINDER Gender Identity Not on file Sexual Orientation Not on file documented as of this encounter Last Filed Vital Signs Vital Sign Reading Time Taken Comments Blood Pressure - - Pulse 64 07/29/2005 3:45 PM JACK WINDER Temperature 37.1 C (98.7 F) 07/29/2005 3:45 PM JACK WINDER Respiratory Rate 32 07/29/2005 3:45 PM JACK WINDER Oxygen Saturation - - Inhaled Oxygen Concentration - - Weight 25.2 kg (55 lb 8 oz) 07/29/2005 3:[address] Height - - Body Mass Index - - documented in this encounter Plan of Treatment Upcoming Encounters Date Type Department Care Team (Late Contact Info) Description 09/25/2025 8:30 AM JACK WINDER Video Visit [facility] Adult Psychiatry [place] [address] [address] [place] [address] Argelia Law NP [address] [place] [address] documented as of this encounter Visit Diagnoses Not on filedocumented in this encounter Additional Health Concerns Infection Onset Date Last Indicated Resolved Time R/O COVID-19 06/02/2021 06/03/2021 06/03/2021 7:34 PM CDT R/O COVID-19 12/22/2022 12/22/2022 12/22/2022 12:2 5 PM CDT R/O COVID-19 09/07/2023 09/07/2023 09/07/2023 9:52 PM JACK WINDER documented as of this encounter Care Teams Steamtable Worker Relationship Specialty Start Date End Date Kassy Jay MD [address] [place] [address] PCP - General Family Practice 12/04/22 documented as of this encounter
--- OUTSIDE RECORDS SUMMARY | 2025-08-21 14:00 | XMS_ITS | Encounter Summary ---
Author Organization [facility] Address [address] [place] [address] Care Team Providers Care Head Rose Grower Name Role Phone Kassy Jay MD Primary Care Provider [phone] Encounter Details Date Type Department Care Team (Late Contact Info) Description 04/14/2002 Outpatient Historical [facility] Pediatrics - [facility] [address] [place] [address] [place] [address] [place] [address] Social History Tobacco Use Types Packs/Day Years Used Date Smoking Tobacco: Never Assessed Comments Unknown Sex and Gender Information Value Date Recorded Sex Assigned at Not on file Legal Sex Female 4:02 AM RESPIRATORY EQUIPMENT ASSISTANT Gender Identity Not on file Sexual Orientation Not on file documented as of this encounter Plan of Treatment Upcoming Encounters Date Type Department Care Team (Late Contact Info) Description 09/25/2025 8:30 AM RESPIRATORY EQUIPMENT ASSISTANT Video Visit [facility] Adult Psychiatry [place] [address] [phone] Argelia Law NP [address] [address] documented as of this encounter Visit Diagnoses Not on filedocumented in this encounter Additional Health Concerns Infection Onset Date Last Indicated Resolved Time R/O COVID-19 06/02/2021 06/03/2021 06/03/2021 7:34 PM CDT R/O COVID-19 12/22/2022 12/22/2022 12/22/2022 12:2 5 PM CDT R/O COVID-19 09/07/2023 09/07/2023 09/07/2023 9:52 PM RESPIRATORY EQUIPMENT ASSISTANT documented as of this encounter Care Teams Head Rose Grower Relationship Specialty Start Date End Date Kassy Jay MD [address] [place] [phone] PCP - General Family Practice 12/04/22 documented as of this encounter
--- OUTSIDE RECORDS SUMMARY | 2025-08-21 14:00 | XMS_ITS | Encounter Summary ---
Author Organization [facility] Address [address] [place] [address] Care Team Providers Care Doll Maker Name Role Phone Kassy Jay MD Primary Care Provider [phone] Encounter Details Date Type Department Care Team (Late Contact Info) Description 09/04/2005 Outpatient Historical [facility] [address] [facility] [address] [id number] Gustavo Sims Social History Tobacco Use Types Packs/Day Years Used Date Smoking Tobacco: Never Assessed Comments Unknown Sex and Gender Information Value Date Recorded Sex Assigned at Not on file Legal Sex Female 4:02 AM CREATIVE ART THERAPIST Gender Identity Not on file Sexual Orientation Not on file documented as of this encounter Plan of Treatment Upcoming Encounters Date Type Department Care Team (Late Contact Info) Description 09/25/2025 8:30 AM CREATIVE ART THERAPIST Video Visit [facility] Adult Psychiatry [place] [address] [phone] Argelia Law NP [address] [phone] documented as of this encounter Visit Diagnoses Not on filedocumented in this encounter Additional Health Concerns Infection Onset Date Last Indicated Resolved Time R/O COVID-19 06/02/2021 06/03/2021 06/03/2021 7:34 PM CDT R/O COVID-19 12/22/2022 12/22/2022 12/22/2022 12:2 5 PM CDT R/O COVID-19 09/07/2023 09/07/2023 09/07/2023 9:52 PM CREATIVE ART THERAPIST documented as of this encounter Care Teams Doll Maker Relationship Specialty Start Date End Date Kassy Jay MD [address] [facility] [address] [place] [address] PCP - General Family Practice 12/04/22 documented as of this encounter
--- OUTSIDE RECORDS SUMMARY | 2025-08-21 14:00 | XMS_ITS | Encounter Summary ---
Author Organization [facility] Address [address] [place] [address] Care Team Providers Care President + Publisher Name Role Phone Kassy Jay MD Primary Care Provider [phone] Encounter Details Date Type Department Care Team ([facility] Contact Info) Description 08/27/2005 Outpatient Historical [facility] Pediatrics - [facility] [address] [place] [address] [place] [address] [place] [address] Social History Tobacco Use Types Packs/Day Years Used Date Smoking Tobacco: Never Assessed Comments Unknown Sex and Gender Information Value Date Recorded Sex Assigned at Not on file Legal Sex Female 4:02 AM CHAINSTITCH ELASTIC ATTACHER Gender Identity Not on file Sexual Orientation Not on file documented as of this encounter Last Filed Vital Signs Vital Sign Reading Time Taken Comments Blood Pressure - - Pulse 102 08/27/2005 3:00 PM CHAINSTITCH ELASTIC ATTACHER Temperature 36.8 C (98.3 F) 08/27/2005 3:00 PM CHAINSTITCH ELASTIC ATTACHER Respiratory Rate 21 08/27/2005 3:00 PM CHAINSTITCH ELASTIC ATTACHER Oxygen Saturation - - Inhaled Oxygen Concentration - - Weight 25.9 kg (57 lb) 08/27/2005 3:00 PM CHAINSTITCH ELASTIC ATTACHER Height - - Body Mass Index - - documented in this encounter Plan of Treatment Upcoming Encounters Date Type Department Care Team (Late Contact Info) Description 09/25/2025 8:30 AM CHAINSTITCH ELASTIC ATTACHER Video Visit [facility] Adult Psychiatry [place] [address] [address] [place] [phone] Argelia Law NP [address] [place] [address] documented as of this encounter Visit Diagnoses Not on filedocumented in this encounter Additional Health Concerns Infection Onset Date Last Indicated Resolved Time R/O COVID-19 06/02/2021 06/03/2021 06/03/2021 7:34 PM CDT R/O COVID-19 12/22/2022 12/22/2022 12/22/2022 12:2 5 PM CDT R/O COVID-19 09/07/2023 09/07/2023 09/07/2023 9:52 PM CHAINSTITCH ELASTIC ATTACHER documented as of this encounter Care Teams President + Publisher Relationship Specialty Start Date End Date Kassy Jay MD [address] [place] [address] PCP - General Family Practice 12/04/22 documented as of this encounter
--- OUTSIDE RECORDS SUMMARY | 2025-08-21 14:00 | XMS_ITS | Encounter Summary ---
Author Organization [facility] Address [address] [place] [address] Care Team Providers Care Clinical Laboratory Medical Director Name Role Phone Kassy Jay MD Primary Care Provider [phone] Encounter Details Date Type Department Care Team (Late Contact Info) Description 04/19/2007 Outpatient Historical [facility] Pediatrics - [facility] [address] [place] [address] [place] [address] [place] [address] Social History Tobacco Use Types Packs/Day Years Used Date Smoking Tobacco: Never Assessed Comments Unknown Sex and Gender Information Value Date Recorded Sex Assigned at Not on file Legal Sex Female 4:02 AM VACUUM CONDITIONER OPERATOR Gender Identity Not on file Sexual [...] (Late Contact Info) Description 09/25/2025 8:30 AM VACUUM CONDITIONER OPERATOR Video Visit [facility] Adult Psychiatry [place] [address] [address] [place] [address] Argelia Law NP [address] [address] [place] [address] documented as of this encounter Visit Diagnoses Not on filedocumented in this encounter Additional Health Concerns Infection Onset Date Last Indicated Resolved Time R/O COVID-19 06/02/2021 06/03/2021 06/03/2021 7:34 PM CDT R/O COVID-19 12/22/2022 12/22/2022 12/22/2022 12:2 5 PM CDT R/O COVID-19 09/07/2023 09/07/2023 09/07/2023 9:52 PM VACUUM CONDITIONER OPERATOR documented as of this encounter Care Teams Clinical Laboratory Medical Director Relationship Specialty Start Date End Date Kassy Jay MD [address] [facility] [place] [place] [phone] PCP - General Family Practice 12/04/22 documented as of this encounter
--- OUTSIDE RECORDS SUMMARY | 2025-08-21 14:00 | XMS_ITS | Encounter Summary ---
Author Organization [facility] Address [address] [place] [address] Care Team Providers Care Medical Terminologist Name Role Phone Kassy Jay MD Primary Care Provider [phone] Encounter Details Date Type Department Care Team (Late Contact Info) Description 04/19/1999 Outpatient Historical [facility] Pediatrics - [facility] [address] [place] [address] Darren Tabor MD NO ADDRESS ON FILE Social History Tobacco Use Types Packs/Day Years Used Date Smoking Tobacco: Never Assessed Comments Unknown Sex and Gender Information Value Date Recorded Sex Assigned at Not on file Legal Sex Female 4:02 AM REGISTERED NURSES Gender Identity Not on file Sexual Orientation Not on file documented as of this encounter Plan of Treatment Upcoming Encounters Date Type Department Care Team (Late Contact Info) Description 09/25/2025 8:30 AM REGISTERED NURSES Video Visit [facility] Adult Psychiatry [place] [address] [phone] Thanh, Argelia Lopez NP [address] [address] documented as of this encounter Visit Diagnoses Not on filedocumented in this encounter Additional Health Concerns Infection Onset Date Last Indicated Resolved Time R/O COVID-19 06/02/2021 06/03/2021 06/03/2021 7:34 PM CDT R/O COVID-19 12/22/2022 12/22/2022 12/22/2022 12:2 5 PM CDT R/O COVID-19 09/07/2023 09/07/2023 09/07/2023 9:52 PM REGISTERED NURSES documented as of this encounter Care Teams Medical Terminologist Relationship Specialty Start Date End Date Kassy Jay MD [address] [facility] [place] [phone] PCP - General Family Practice 12/04/22 documented as of this encounter
--- OUTSIDE RECORDS SUMMARY | 2025-08-21 14:00 | XMS_ITS | Encounter Summary ---
Author Organization [facility] Address [address] [place] [address] Care Team Providers Care Company Marker Name Role Phone Kassy Jay MD Primary Care Provider [phone] Encounter Details Date Type Department Care Team (Late Contact Info) Description 10/14/1999 Outpatient Historical [facility] Pediatrics - [facility] [address] [place] [address] [place] [address] [facility] [address] [place] [address] Social History Tobacco Use Types Packs/Day Years Used Date Smoking Tobacco: Never Assessed Comments Unknown Sex and Gender Information Value Date Recorded Sex Assigned at Not on file Legal Sex Female 4:02 AM CLERICAL AND ADMINISTRATIVE WORKERS Gender Identity Not on file Sexual Orientation Not on file documented as of this encounter Plan of Treatment Upcoming Encounters Date Type Department Care Team (Late Contact Info) Description 09/25/2025 8:30 AM CLERICAL AND ADMINISTRATIVE WORKERS Video Visit [facility] Adult Psychiatry [place] [address] [phone] Argelia Law NP [address] [address] documented as of this encounter Visit Diagnoses Not on filedocumented in this encounter Additional Health Concerns Infection Onset Date Last Indicated Resolved Time R/O COVID-19 06/02/2021 06/03/2021 06/03/2021 7:34 PM CDT R/O COVID-19 12/22/2022 12/22/2022 12/22/2022 12:2 5 PM CDT R/O COVID-19 09/07/2023 09/07/2023 09/07/2023 9:52 PM CLERICAL AND ADMINISTRATIVE WORKERS documented as of this encounter Care Teams Company Marker Relationship Specialty Start Date End Date Kassy Jay MD [address] [place] [address] [phone] PCP - General Family Practice 12/04/22 documented as of this encounter
--- OUTSIDE RECORDS SUMMARY | 2025-08-21 14:00 | XMS_ITS | Encounter Summary ---
Author Organization [facility] Address [address] [place] [address] Care Team Providers Care Probate Clerk Name Role Phone Kassy Jay MD Primary Care Provider [phone] Encounter Details Date Type Department Care Team (Late Contact Info) Description 07/21/2005 Outpatient Historical [facility] Pediatrics - [facility] [address] [facility] [address] [place] [address] [place] [address] [place] [address] Social History Tobacco Use Types Packs/Day Years Used Date Smoking Tobacco: Never Assessed Comments Unknown Sex and Gender Information Value Date Recorded Sex Assigned at Not on file Legal Sex Female 4:02 AM GAS MAIN FITTER Gender Identity Not on file Sexual Orientation Not on file documented as of this encounter Plan of Treatment Upcoming Encounters Date Type Department Care Team (Late Contact Info) Description 09/25/2025 8:30 AM GAS MAIN FITTER Video Visit [facility] Adult Psychiatry [place] [address] [phone] Argelia Law NP [address] [address] documented as of this encounter Visit Diagnoses Not on filedocumented in this encounter Additional Health Concerns Infection Onset Date Last Indicated Resolved Time R/O COVID-19 06/02/2021 06/03/2021 06/03/2021 7:34 PM CDT R/O COVID-19 12/22/2022 12/22/2022 12/22/2022 12:2 5 PM CDT R/O COVID-19 09/07/2023 09/07/2023 09/07/2023 9:52 PM GAS MAIN FITTER documented as of this encounter Care Teams Probate Clerk Relationship Specialty Start Date End Date Kassy Jay MD [address] [place] [address] [phone] PCP - General Family Practice 12/04/22 documented as of this encounter
--- OUTSIDE RECORDS SUMMARY | 2025-08-21 14:00 | XMS_ITS | Encounter Summary ---
Author Organization [facility] Address [address] [place] [address] Care Team Providers Care Program Services Planner Name Role Phone Kassy Jay MD Primary Care Provider [phone] Encounter Details Date Type Department Care Team (Late st Contact Info) Description 01/21/2006 Orders Only [facility] Pediatrics - [facility] [address] [facility] [address] [place] [address] [place] [address] [place] [address] Social History Tobacco Use Types Packs/Day Years Used Date Smoking Tobacco: Never Assessed Comments Unknown Sex and Gender Information Value Date Recorded Sex Assigned at Not on file Legal Sex Female 4:02 AM MUSEUM SECURITY CHIEF Gender Identity Not on file Sexual [...] NEW PRESCRIPTION, 01/21/2006. LAB ORDERS: Order number: [id number] Test Ordered: RAPID STREP [id number] RETURN VISIT/GUIDANCE: Instructed to:Take OTC meds as directed Call office if concerned or if child is no better Return if symptoms are not resolved. Electronically Signed by: Lacie Malik M.D. on Saturday, January 21, 2006 documented in this encounter Plan of Treatment Upcoming Encounters Date Type Department Care Team (Late st Contact Info) Description 09/25/2025 8:30 AM MUSEUM SECURITY CHIEF Video Visit [facility] Adult Psychiatry [place] [address] [place] [address] Argelia Law NP [address] [address] documented as of this encounter Visit Diagnoses Not on filedocumented in this encounter Additional Health Concerns Infection Onset Date Last Indicated Resolved Time R/O COVID-19 06/02/2021 06/03/2021 06/03/2021 7:34 PM CDT R/O COVID-19 12/22/2022 12/22/2022 12/22/2022 12:2 5 PM CDT R/O COVID-19 09/07/2023 09/07/2023 09/07/2023 9:52 PM MUSEUM SECURITY CHIEF documented as of this encounter Care Teams Program Services Planner Relationship Specialty Start Date End Date Kassy Jay MD [address] [place] [address] [phone] PCP - General Family Practice 12/04/22 documented as of this encounter
--- OUTSIDE RECORDS SUMMARY | 2025-08-21 14:00 | XMS_ITS | Encounter Summary ---
Author Organization [facility] Address [address] [place] [address] Care Team Providers Care Special Procedures Tech Name Role Phone Kassy Jay MD Primary Care Provider [phone] Encounter Details Date Type Department Care Team (Late Contact Info) Description 1998 Outpatient Historical [facility] - [facility] [address] [place] [address] Darren Tabor MD NO ADDRESS ON FILE Social History Tobacco Use Types Packs/Day Years Used Date Smoking Tobacco: Never Assessed Comments Unknown Sex and Gender Information Value Date Recorded Sex Assigned at Not on file Legal Sex Female 4:02 AM ENGINEERING SURVEYOR Gender Identity Not on file Sexual Orientation Not on file documented as of this encounter Plan of Treatment Upcoming Encounters Date Type Department Care Team (Late Contact Info) Description 09/25/2025 8:30 AM ENGINEERING SURVEYOR Video Visit [facility] Adult Psychiatry [place] [address] [phone] Thanh, Argelia Lopez NP [address] [address] documented as of this encounter Visit Diagnoses Not on filedocumented in this encounter Additional Health Concerns Infection Onset Date Last Indicated Resolved Time R/O COVID-19 06/02/2021 06/03/2021 06/03/2021 7:34 PM CDT R/O COVID-19 12/22/2022 12/22/2022 12/22/2022 12:2 5 PM CDT R/O COVID-19 09/07/2023 09/07/2023 09/07/2023 9:52 PM ENGINEERING SURVEYOR documented as of this encounter Care Teams Special Procedures Tech Relationship Specialty Start Date End Date Kassy Jay MD [address] [facility] [place] [phone] PCP - General Family Practice 12/04/22 documented as of this encounter
--- OUTSIDE RECORDS SUMMARY | 2025-08-21 14:00 | XMS_ITS | Encounter Summary ---
Author Organization [facility] Address [address] [place] [address] Care Team Providers Care Sheet Metal Supervisor Name Role Phone Kassy Jay MD Primary Care Provider [phone] Encounter Details Date Type Department Care Team (Late Contact Info) Description 02/03/2001 Outpatient Historical [facility] Pediatrics - [facility] [address] [facility] [address] [place] [address] [place] [address] [facility] [address] [place] [address] Social History Tobacco Use Types Packs/Day Years Used Date Smoking Tobacco: Never Assessed Comments Unknown Sex and Gender Information Value Date Recorded Sex Assigned at Not on file Legal Sex Female 4:02 AM ORACLE FUSION DEVELOPER Gender Identity Not on file Sexual Orientation Not on file documented as of this encounter Plan of Treatment Upcoming Encounters Date Type Department Care Team (Late Contact Info) Description 09/25/2025 8:30 AM ORACLE FUSION DEVELOPER Video Visit [facility] Adult Psychiatry [place] [address] [phone] Argelia Law NP [address] [address] documented as of this encounter Visit Diagnoses Not on filedocumented in this encounter Additional Health Concerns Infection Onset Date Last Indicated Resolved Time R/O COVID-19 06/02/2021 06/03/2021 06/03/2021 7:34 PM CDT R/O COVID-19 12/22/2022 12/22/2022 12/22/2022 12:2 5 PM CDT R/O COVID-19 09/07/2023 09/07/2023 09/07/2023 9:52 PM ORACLE FUSION DEVELOPER documented as of this encounter Care Teams Sheet Metal Supervisor Relationship Specialty Start Date End Date Kassy Jay MD [address] [place] [phone] PCP - General Family Practice 12/04/22 documented as of this encounter
--- OUTSIDE RECORDS SUMMARY | 2025-08-21 14:00 | XMS_ITS | Encounter Summary ---
Author Organization [facility] Address [address] [place] [address] Care Team Providers Care Information Systems Security Analyst Name Role Phone Kassy Jay MD Primary Care Provider [phone] Encounter Details Date Type Department Care Team (Late Contact Info) Description 06/30/2007 Outpatient Historical [facility] Pediatrics - [facility] [address] [address] [place] [address] [place] [address] [place] [address] Social History Tobacco Use Types Packs/Day Years Used Date Smoking Tobacco: Never Assessed Comments Unknown Sex and Gender Information Value Date Recorded Sex Assigned at Not on file Legal Sex Female 4:02 AM MEDICAL AIDES TEACHER Gender Identity Not on file Sexual Orientation Not on file documented as of this encounter Plan of Treatment Upcoming Encounters Date Type Department Care Team (Late Contact Info) Description 09/25/2025 8:30 AM MEDICAL AIDES TEACHER Video Visit [facility] Adult Psychiatry [place] [address] [phone] Argelia Law NP [address] [address] documented as of this encounter Visit Diagnoses Not on filedocumented in this encounter Additional Health Concerns Infection Onset Date Last Indicated Resolved Time R/O COVID-19 06/02/2021 06/03/2021 06/03/2021 7:34 PM CDT R/O COVID-19 12/22/2022 12/22/2022 12/22/2022 12:2 5 PM CDT R/O COVID-19 09/07/2023 09/07/2023 09/07/2023 9:52 PM MEDICAL AIDES TEACHER documented as of this encounter Care Teams Information Systems Security Analyst Relationship Specialty Start Date End Date Kassy Jay MD [address] [place] [phone] PCP - General Family Practice 12/04/22 documented as of this encounter
--- OUTSIDE RECORDS SUMMARY | 2025-08-21 14:00 | XMS_ITS | Encounter Summary ---
Author Organization [facility] Address [address] [place] [address] Care Team Providers Care Cutter Operator Name Role Phone Kassy Jay MD Primary Care Provider [phone] Encounter Details Date Type Department Care Team (Late Contact Info) Description 07/18/2005 Outpatient Historical [facility] Pediatrics - [facility] [address] [place] [address] [place] [address] [place] [address] Social History Tobacco Use Types Packs/Day Years Used Date Smoking Tobacco: Never Assessed Comments Unknown Sex and Gender Information Value Date Recorded Sex Assigned at Not on file Legal Sex Female 4:02 AM MANAGER DOCUMENT CONTROL Gender Identity Not on file Sexual Orientation Not on file documented as of this encounter Plan of Treatment Upcoming Encounters Date Type Department Care Team (Late Contact Info) Description 09/25/2025 8:30 AM MANAGER DOCUMENT CONTROL Video Visit [facility] Adult Psychiatry Var[place] [address] [phone] Argelia Law NP [address] [address] documented as of this encounter Visit Diagnoses Not on filedocumented in this encounter Additional Health Concerns Infection Onset Date Last Indicated Resolved Time R/O COVID-19 06/02/2021 06/03/2021 06/03/2021 7:34 PM CDT R/O COVID-19 12/22/2022 12/22/2022 12/22/2022 12:2 5 PM CDT R/O COVID-19 09/07/2023 09/07/2023 09/07/2023 9:52 PM MANAGER DOCUMENT CONTROL documented as of this encounter Care Teams Cutter Operator Relationship Specialty Start Date End Date Kassy Jay MD [address] [place] [address] [phone] PCP - General Family Practice 12/04/22 documented as of this encounter
--- OUTSIDE RECORDS SUMMARY | 2025-08-21 14:00 | XMS_ITS | Encounter Summary ---
Author Organization [facility] Address [address] [place] [address] Care Team Providers Care Clinic Director Name Role Phone Kassy Jay MD Primary Care Provider [phone] Encounter Details Date Type Department Care Team (Late st Contact Info) Description 09/11/2006 Orders Only [facility] Pediatrics - [facility] [address] [facility] [address] [place] [address] [place] [address] [place] [address] Social History Tobacco Use Types Packs/Day Years Used Date Smoking Tobacco: Never Assessed Comments Unknown Sex and Gender Information Value Date Recorded Sex Assigned at Not on file Legal Sex Female 4:02 AM ACCOUNT COLLECTOR Gender Identity Not on file Sexual Orientation Not on file documented as of this encounter Progress Notes * Lacie Malik MD - 07/05/2008 4:31 AM CDT PATIENT'S AGE: 6 yrs, 6 mths, 2 wks, 1 day VITALS: TEMP: 98??f Oral PULSE: 88 Apical, Regular RESPIRATIONS: 20. WEIGHT: [id number] NURSE NAME: Jesusita Williamson L ACCOMPANIED BY: [...] Electronically Signed by: Lacie Malik MD on Monday, September 11, 2006 documented in this encounter Plan of Treatment Upcoming Encounters Date Type Department Care Team (Late st Contact Info) Description 09/25/2025 8:30 AM ACCOUNT COLLECTOR Video Visit [facility] Adult Psychiatry [place] [address] [address] [address] [phone] Argelia Law NP [address] [address] [address] [place] [address] documented as of this encounter Visit Diagnoses Not on filedocumented in this encounter Additional Health Concerns Infection Onset Date Last Indicated Resolved Time R/O COVID-19 06/02/2021 06/03/2021 06/03/2021 7:34 PM CDT R/O COVID-19 12/22/2022 12/22/2022 12/22/2022 12:2 5 PM CDT R/O COVID-19 09/07/2023 09/07/2023 09/07/2023 9:52 PM ACCOUNT COLLECTOR documented as of this encounter Care Teams Clinic Director Relationship Specialty Start Date End Date Kassy Jay MD [address] [place] [address] [phone] PCP - General Family Practice 12/04/22 documented as of this encounter
--- OUTSIDE RECORDS SUMMARY | 2025-08-21 14:00 | XMS_ITS | Encounter Summary ---
Author Organization [facility] Address [address] [place] [address] Care Team Providers Care Dementia Program Director Name Role Phone Kassy Jay MD Primary Care Provider [phone] Encounter Details Date Type Department Care Team (Late Contact Info) Description 07/21/2005 Outpatient Historical [facility] Pediatrics - [facility] [address] [facility] [address] [facility] [address] [place] [address] [place] [address] [place] [address] Social History Tobacco Use Types Packs/Day Years Used Date Smoking Tobacco: Never Assessed Comments Unknown Sex and Gender Information Value Date Recorded Sex Assigned at Not on file Legal Sex Female 4:02 AM RAIL TRACK LAYER Gender Identity Not on file Sexual Orientation Not on file documented as of this encounter Plan of Treatment Upcoming Encounters Date Type Department Care Team (Late Contact Info) Description 09/25/2025 8:30 AM RAIL TRACK LAYER Video Visit [facility] Adult Psychiatry Var[place] [address] [phone] Argelia Law NP [address] [address] documented as of this encounter Visit Diagnoses Not on filedocumented in this encounter Additional Health Concerns Infection Onset Date Last Indicated Resolved Time R/O COVID-19 06/02/2021 06/03/2021 06/03/2021 7:34 PM CDT R/O COVID-19 12/22/2022 12/22/2022 12/22/2022 12:2 5 PM CDT R/O COVID-19 09/07/2023 09/07/2023 09/07/2023 9:52 PM RAIL TRACK LAYER documented as of this encounter Care Teams Dementia Program Director Relationship Specialty Start Date End Date Kassy Jay MD [address] [place] [address] [phone] PCP - General Family Practice 12/04/22 documented as of this encounter
--- OUTSIDE RECORDS SUMMARY | 2025-08-21 14:00 | XMS_ITS | Encounter Summary ---
Author Organization [facility] Address [address] [place] [address] Care Team Providers Care Automotive Glass Mechanic Name Role Phone Kassy Jay MD Primary Care Provider [phone] Encounter Details Date Type Department Care Team (Late Contact Info) Description 11/23/2000 Outpatient Historical [facility] Pediatrics - [facility] [address] [facility] [address] [facility] [address] [place] [address] [place] [address] [place] [address] Social History Tobacco Use Types Packs/Day Years Used Date Smoking Tobacco: Never Assessed Comments Unknown Sex and Gender Information Value Date Recorded Sex Assigned at Not on file Legal Sex Female 4:02 AM POLICY CHECKER Gender Identity Not on file Sexual Orientation Not on file documented as of this encounter Plan of Treatment Upcoming Encounters Date Type Department Care Team (Late Contact Info) Description 09/25/2025 8:30 AM POLICY CHECKER Video Visit [facility] Adult Psychiatry Var[place] [address] [phone] Argelia Law NP [address] [address] documented as of this encounter Visit Diagnoses Not on filedocumented in this encounter Additional Health Concerns Infection Onset Date Last Indicated Resolved Time R/O COVID-19 06/02/2021 06/03/2021 06/03/2021 7:34 PM CDT R/O COVID-19 12/22/2022 12/22/2022 12/22/2022 12:2 5 PM CDT R/O COVID-19 09/07/2023 09/07/2023 09/07/2023 9:52 PM POLICY CHECKER documented as of this encounter Care Teams Automotive Glass Mechanic Relationship Specialty Start Date End Date Kassy Jay MD [address] [place] [address] [phone] PCP - General Family Practice 12/04/22 documented as of this encounter
--- OUTSIDE RECORDS SUMMARY | 2025-08-21 14:00 | XMS_ITS | Encounter Summary ---
Author Organization [facility] Address [address] [place] [address] Care Team Providers Care Creative Consultant Name Role Phone Kassy Jay MD Primary Care Provider [phone] Encounter Details Date Type Department Care Team (Late Contact Info) Description 08/06/1999 Outpatient Historical [facility] Pediatrics - [facility] [address] [place] [address] Darren Tabor MD NO ADDRESS ON FILE Social History Tobacco Use Types Packs/Day Years Used Date Smoking Tobacco: Never Assessed Comments Unknown Sex and Gender Information Value Date Recorded Sex Assigned at Not on file Legal Sex Female 4:02 AM HOMELAND SECURITY PROGRAM SPECIALIST Gender Identity Not on file Sexual Orientation Not on file documented as of this encounter Plan of Treatment Upcoming Encounters Date Type Department Care Team (Late Contact Info) Description 09/25/2025 8:30 AM HOMELAND SECURITY PROGRAM SPECIALIST Video Visit [facility] Adult Psychiatry [place] [address] [phone] Thanh, Argelia Lopez NP [address] [address] documented as of this encounter Visit Diagnoses Not on filedocumented in this encounter Additional Health Concerns Infection Onset Date Last Indicated Resolved Time R/O COVID-19 06/02/2021 06/03/2021 06/03/2021 7:34 PM CDT R/O COVID-19 12/22/2022 12/22/2022 12/22/2022 12:2 5 PM CDT R/O COVID-19 09/07/2023 09/07/2023 09/07/2023 9:52 PM HOMELAND SECURITY PROGRAM SPECIALIST documented as of this encounter Care Teams Creative Consultant Relationship Specialty Start Date End Date Kassy Jay MD [address] [facility] [address] [place] [phone] PCP - General Family Practice 12/04/22 documented as of this encounter
--- OUTSIDE RECORDS SUMMARY | 2025-08-21 14:00 | XMS_ITS | Encounter Summary ---
Author Organization [facility] Address [address] [place] [address] Care Team Providers Care History Instructor Name Role Phone Kassy Jay MD Primary Care Provider [phone] Encounter Details Date Type Department Care Team (Late Contact Info) Description 1998 Outpatient Historical [facility] - [facility] [address] [address] [address] [place] [address] Garrett Mittal MD [address] [facility] [address] [place], [place] [id number] Social History Tobacco Use Types Packs/Day Years Used Date Smoking Tobacco: Never Assessed Comments Unknown Sex and Gender Information Value Date Recorded Sex Assigned at Not on file Legal Sex Female 4:02 AM GEOTHERMAL ELECTRICAL ENGINEER Gender Identity Not on file Sexual Orientation Not on file documented as of this encounter Plan of Treatment Upcoming Encounters Date Type Department Care Team (Late Contact Info) Description 09/25/2025 8:30 AM GEOTHERMAL ELECTRICAL ENGINEER Video Visit [facility] Adult Psychiatry [place] [address] [phone] Argelia Law NP [address] [address] documented as of this encounter Visit Diagnoses Not on filedocumented in this encounter Additional Health Concerns Infection Onset Date Last Indicated Resolved Time R/O COVID-19 06/02/2021 06/03/2021 06/03/2021 7:34 PM CDT R/O COVID-19 12/22/2022 12/22/2022 12/22/2022 12:2 5 PM CDT R/O COVID-19 09/07/2023 09/07/2023 09/07/2023 9:52 PM GEOTHERMAL ELECTRICAL ENGINEER documented as of this encounter Care Teams History Instructor Relationship Specialty Start Date End Date Kassy Jay MD [address] [place] [address] [phone] PCP - General Family Practice 12/04/22 documented as of this encounter
--- OUTSIDE RECORDS SUMMARY | 2025-08-21 14:00 | XMS_ITS | Encounter Summary ---
Author Organization [facility] Address [address] [place] [address] Care Team Providers Care Regional Otr Company Driver Name Role Phone Kassy Jay MD Primary Care Provider [phone] Encounter Details Date Type Department Care Team (Late Contact Info) Description 04/07/2002 Outpatient Historical [facility] Pediatrics - [facility] [address] [place] [address] Darren Tabor MD NO ADDRESS ON FILE Social History Tobacco Use Types Packs/Day Years Used Date Smoking Tobacco: Never Assessed Comments Unknown Sex and Gender Information Value Date Recorded Sex Assigned at Not on file Legal Sex Female 4:02 AM TRAVEL REGISTERED NURSE NICU Gender Identity Not on file Sexual Orientation Not on file documented as of this encounter Plan of Treatment Upcoming Encounters Date Type Department Care Team (Late Contact Info) Description 09/25/2025 8:30 AM TRAVEL REGISTERED NURSE NICU Video Visit [facility] Adult Psychiatry [place] [address] [phone] Thanh, Argelia Lopez NP [address] [address] documented as of this encounter Visit Diagnoses Not on filedocumented in this encounter Additional Health Concerns Infection Onset Date Last Indicated Resolved Time R/O COVID-19 06/02/2021 06/03/2021 06/03/2021 7:34 PM CDT R/O COVID-19 12/22/2022 12/22/2022 12/22/2022 12:2 5 PM CDT R/O COVID-19 09/07/2023 09/07/2023 09/07/2023 9:52 PM TRAVEL REGISTERED NURSE NICU documented as of this encounter Care Teams Regional Otr Company Driver Relationship Specialty Start Date End Date Kassy Jay MD [address] [facility] [place] [phone] PCP - General Family Practice 12/04/22 documented as of this encounter
--- OUTSIDE RECORDS SUMMARY | 2025-08-21 14:00 | XMS_ITS | Encounter Summary ---
Author Organization [facility] Address [address] [place] [address] Care Team Providers Care Flex O Writer Operator Name Role Phone Kassy Jay MD Primary Care Provider [phone] Encounter Details Date Type Department Care Team (Late Contact Info) Description 07/18/2005 Outpatient Historical [facility] Pediatrics - [facility] [address] [place] [address] [place] [address] [place] [address] Social History Tobacco Use Types Packs/Day Years Used Date Smoking Tobacco: Never Assessed Comments Unknown Sex and Gender Information Value Date Recorded Sex Assigned at Not on file Legal Sex Female 4:02 AM ELECTRIC MOTOR MECHANIC Gender Identity Not on file Sexual Orientation Not on file documented as of this encounter Plan of Treatment Upcoming Encounters Date Type Department Care Team (Late Contact Info) Description 09/25/2025 8:30 AM ELECTRIC MOTOR MECHANIC Video Visit [facility] Adult Psychiatry Var[place] [address] [phone] Argelia Law NP [address] [address] documented as of this encounter Visit Diagnoses Not on filedocumented in this encounter Additional Health Concerns Infection Onset Date Last Indicated Resolved Time R/O COVID-19 06/02/2021 06/03/2021 06/03/2021 7:34 PM CDT R/O COVID-19 12/22/2022 12/22/2022 12/22/2022 12:2 5 PM CDT R/O COVID-19 09/07/2023 09/07/2023 09/07/2023 9:52 PM ELECTRIC MOTOR MECHANIC documented as of this encounter Care Teams Flex O Writer Operator Relationship Specialty Start Date End Date Kassy Jay MD [address] [place] [address] [phone] PCP - General Family Practice 12/04/22 documented as of this encounter
--- OUTSIDE RECORDS SUMMARY | 2025-08-21 14:00 | XMS_ITS | Encounter Summary ---
Author Organization [facility] Address [address] [place] [address] Care Team Providers Care Cooperer Name Role Phone Kassy Jay MD Primary Care Provider [phone] Encounter Details Date Type Department Care Team (Late Contact Info) Description 01/01/2000 Outpatient Historical [facility] Pediatrics - [facility] [address] [facility] [address] [place] [address] [place] [address] [place] [address] Social History Tobacco Use Types Packs/Day Years Used Date Smoking Tobacco: Never Assessed Comments Unknown Sex and Gender Information Value Date Recorded Sex Assigned at Not on file Legal Sex Female 4:02 AM SALES OPERATIONS Gender Identity Not on file Sexual Orientation Not on file documented as of this encounter Plan of Treatment Upcoming Encounters Date Type Department Care Team (Late Contact Info) Description 09/25/2025 8:30 AM SALES OPERATIONS Video Visit [facility] Adult Psychiatry Var[place] [address] [phone] Argelia Law NP [address] [address] documented as of this encounter Visit Diagnoses Not on filedocumented in this encounter Additional Health Concerns Infection Onset Date Last Indicated Resolved Time R/O COVID-19 06/02/2021 06/03/2021 06/03/2021 7:34 PM CDT R/O COVID-19 12/22/2022 12/22/2022 12/22/2022 12:2 5 PM CDT R/O COVID-19 09/07/2023 09/07/2023 09/07/2023 9:52 PM SALES OPERATIONS documented as of this encounter Care Teams Cooperer Relationship Specialty Start Date End Date Kassy Jay MD [address] [place] [address] [phone] PCP - General Family Practice 12/04/22 documented as of this encounter
--- OUTSIDE RECORDS SUMMARY | 2025-08-21 14:00 | XMS_ITS | Encounter Summary ---
Author Organization [facility] Address [address] [place] [address] Care Team Providers Care Fiberglass Roving Winder Name Role Phone Kassy Jay MD Primary Care Provider [phone] Encounter Details Date Type Department Care Team (Late Contact Info) Description 1998 Outpatient Historical [facility] Pediatrics - [facility] [address] [place] [address] Darren Tabor MD NO ADDRESS ON FILE Social History Tobacco Use Types Packs/Day Years Used Date Smoking Tobacco: Never Assessed Comments Unknown Sex and Gender Information Value Date Recorded Sex Assigned at Not on file Legal Sex Female 4:02 AM INTRAVENOUS THERAPY NURSE Gender Identity Not on file Sexual Orientation Not on file documented as of this encounter Plan of Treatment Upcoming Encounters Date Type Department Care Team (Late Contact Info) Description 09/25/2025 8:30 AM INTRAVENOUS THERAPY NURSE Video Visit [facility] Adult Psychiatry Var[place] [address] [phone] Thanh, Argelia Lopez NP [address] [address] documented as of this encounter Visit Diagnoses Not on filedocumented in this encounter Additional Health Concerns Infection Onset Date Last Indicated Resolved Time R/O COVID-19 06/02/2021 06/03/2021 06/03/2021 7:34 PM CDT R/O COVID-19 12/22/2022 12/22/2022 12/22/2022 12:2 5 PM CDT R/O COVID-19 09/07/2023 09/07/2023 09/07/2023 9:52 PM INTRAVENOUS THERAPY NURSE documented as of this encounter Care Teams Fiberglass Roving Winder Relationship Specialty Start Date End Date Kassy Jay MD [address] [facility] [place] [phone] PCP - General Family Practice 12/04/22 documented as of this encounter
--- OUTSIDE RECORDS SUMMARY | 2025-08-21 14:00 | XMS_ITS | Encounter Summary ---
Author Organization [facility] Address [address] [place] [address] Care Team Providers Care Hvac Service Tech Name Role Phone Kassy Jay MD Primary Care Provider [phone] Encounter Details Date Type Department Care Team (Late Contact Info) Description 11/20/1999 Outpatient Historical [facility] Pediatrics - [facility] [address] [facility] [address] [place] [address] [place] [address] [place] [address] Social History Tobacco Use Types Packs/Day Years Used Date Smoking Tobacco: Never Assessed Comments Unknown Sex and Gender Information Value Date Recorded Sex Assigned at Not on file Legal Sex Female 4:02 AM FOLDER SEAMER Gender Identity Not on file Sexual Orientation Not on file documented as of this encounter Plan of Treatment Upcoming Encounters Date Type Department Care Team (Late Contact Info) Description 09/25/2025 8:30 AM FOLDER SEAMER Video Visit [facility] Adult Psychiatry Var[place] [address] [phone] Argelia Law NP [address] [address] documented as of this encounter Visit Diagnoses Not on filedocumented in this encounter Additional Health Concerns Infection Onset Date Last Indicated Resolved Time R/O COVID-19 06/02/2021 06/03/2021 06/03/2021 7:34 PM CDT R/O COVID-19 12/22/2022 12/22/2022 12/22/2022 12:2 5 PM CDT R/O COVID-19 09/07/2023 09/07/2023 09/07/2023 9:52 PM FOLDER SEAMER documented as of this encounter Care Teams Hvac Service Tech Relationship Specialty Start Date End Date Kassy Jay MD [address] [place] [address] [phone] PCP - General Family Practice 12/04/22 documented as of this encounter
--- OUTSIDE RECORDS SUMMARY | 2025-08-21 14:00 | XMS_ITS | Encounter Summary ---
Author Organization [facility] Address [address] [place] [address] Care Team Providers Care Manager Of Radiology Name Role Phone Kassy Jay MD Primary Care Provider [phone] Encounter Details Date Type Department Care Team (Late Contact Info) Description 05/16/2006 Outpatient Historical [facility] Pediatrics - [facility] [address] [place] [address] [place] [address] [place] [address] Social History Tobacco Use Types Packs/Day Years Used Date Smoking Tobacco: Never Assessed Comments Unknown Sex and Gender Information Value Date Recorded Sex Assigned at Not on file Legal Sex Female 4:02 AM CATTLE EXAMINER Gender Identity Not on file Sexual Orientation Not on file documented as of this encounter Plan of Treatment Upcoming Encounters Date Type Department Care Team (Late Contact Info) Description 09/25/2025 8:30 AM CATTLE EXAMINER Video Visit [facility] Adult Psychiatry Var[place] [address] [phone] Argelia Law NP [address] [address] documented as of this encounter Visit Diagnoses Not on filedocumented in this encounter Additional Health Concerns Infection Onset Date Last Indicated Resolved Time R/O COVID-19 06/02/2021 06/03/2021 06/03/2021 7:34 PM CDT R/O COVID-19 12/22/2022 12/22/2022 12/22/2022 12:2 5 PM CDT R/O COVID-19 09/07/2023 09/07/2023 09/07/2023 9:52 PM CATTLE EXAMINER documented as of this encounter Care Teams Manager Of Radiology Relationship Specialty Start Date End Date Kassy Jay MD [address] [place] [address] [phone] PCP - General Family Practice 12/04/22 documented as of this encounter
--- OUTSIDE RECORDS SUMMARY | 2025-08-21 14:00 | XMS_ITS | Encounter Summary ---
Author Organization [facility] Address [address] [place] [address] Care Team Providers Care Is/It Project Manager Name Role Phone Kassy Jay MD Primary Care Provider [phone] Reason for Visit * Reason Onset Date Comments form 08/19/2025 Encounter Details Date Type Department Care Team (Late st Contact Info) Description 08/19/2025 Telephone [facility] Primary Care - Kirby Herr[address] [place] [address] Kassy Jay MD [address] [place] [address] form Social History Tobacco Use Types Packs/Day Years [...] Never 02/09/2020 How often do you attend temple or uatsdin serv ices? 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 Please attachmed list , allergies , EKG and BMP and fax She also brought paper from [facility] pharmacy for leaver of absence from 08/26- 09/22/2025. This form looks like accomodation questionnaire . I was not able to complete this KEEPING CLERKS SUPERVISOR documented in this encounter Plan of Treatment Upcoming Encounters Date Type Department Care Team (Late st Contact Info) Description 09/25/2025 8:30 AM BOOKKEEPING CLERKS SUPERVISOR Video Visit [facility] Adult Psychiatry [place] [address] [address] [place] [phone] [place] [address] [place] [address] documented as of this encounter Visit Diagnoses Not on filedocumented in this encounter Care Teams Is/It Project Manager Relationship Specialty Start Date End Date Kassy Jay MD [address] [place] [phone] PCP - General Family Practice 12/04/22 documented as of this encounter
--- OUTSIDE RECORDS SUMMARY | 2025-08-21 14:00 | XMS_ITS | Encounter Summary ---
Author Organization [facility] Address [address] [place] [address] Care Team Providers Care Hospital Account Manager Name Role Phone Kassy Jay MD Primary Care Provider [phone] Encounter Details Date Type Department Care Team (Latest Contact Info) Description 04/13/2002 Outpatient Historical [place] [address] [place] [address] UNS ASTHMA WOSTATUS ASTHMATICUS (Primary Dx) Social History Tobacco Use Types Packs/Day Years Used Date Smoking Tobacco: Never Assessed Comments Unknown Sex and Gender Information Value Date Recorded Sex Assigned at Not on file Legal Sex Female 4:02 AM CUSTOMER ORDERS CLERK Gender Identity Not on file Sexual Orientation Not on file documented as of this encounter Plan of Treatment Upcoming Encounters Date Type Department Care Team (Late st Contact Info) Description 09/25/2025 8:30 AM CUSTOMER ORDERS CLERK Video Visit [facility] Adult Psychiatry [place] [address] [phone] Argelia Law NP [address] [address] documented as of this encounter Visit Diagnoses Diagnosis Unspecified asthma(493.90)- Primary Unspecified asthma documented in this encounter Additional Health Concerns Infection Onset Date Last Indicated Resolved Time R/O COVID-19 06/02/2021 06/03/2021 06/03/2021 7:34 PM CDT R/O COVID-19 12/22/2022 12/22/2022 12/22/2022 12:2 5 PM CDT R/O COVID-19 09/07/2023 09/07/2023 09/07/2023 9:52 PM CUSTOMER ORDERS CLERK documented as of this encounter Care Teams Hospital Account Manager Relationship Specialty Start Date End Date Kassy Jay MD [address] [facility] [place] [phone] PCP - General Family Practice 12/04/22 documented as of this encounter
--- OUTSIDE RECORDS SUMMARY | 2025-08-21 14:00 | XMS_ITS | Encounter Summary ---
Author Organization [facility] Address [address] [place] [address] Care Team Providers Care Biometrics Head Name Role Phone Kassy Jay MD Primary Care Provider [phone] Encounter Details Date Type Department Care Team (Late Contact Info) Description 1998 Outpatient Historical [facility] Pediatrics - [facility] [address] [address] [place] [address] Darren Tabor MD NO ADDRESS ON FILE Social History Tobacco Use Types Packs/Day Years Used Date Smoking Tobacco: Never Assessed Comments Unknown Sex and Gender Information Value Date Recorded Sex Assigned at Not on file Legal Sex Female 4:02 AM SIDE LASTER TACK Gender Identity Not on file Sexual Orientation Not on file documented as of this encounter Plan of Treatment Upcoming Encounters Date Type Department Care Team (Late Contact Info) Description 09/25/2025 8:30 AM SIDE LASTER TACK Video Visit [facility] Adult Psychiatry [place] [address] [phone] Thanh, Argelia Lopez NP [address] [address] documented as of this encounter Visit Diagnoses Not on filedocumented in this encounter Additional Health Concerns Infection Onset Date Last Indicated Resolved Time R/O COVID-19 06/02/2021 06/03/2021 06/03/2021 7:34 PM CDT R/O COVID-19 12/22/2022 12/22/2022 12/22/2022 12:2 5 PM CDT R/O COVID-19 09/07/2023 09/07/2023 09/07/2023 9:52 PM SIDE LASTER TACK documented as of this encounter Care Teams Biometrics Head Relationship Specialty Start Date End Date Kassy Jay MD [address] [facility] [place] [phone] PCP - General Family Practice 12/04/22 documented as of this encounter
--- OUTSIDE RECORDS SUMMARY | 2025-08-21 14:00 | XMS_ITS | Encounter Summary ---
Author Organization [facility] Address [address] [place] [address] Care Team Providers Care Ruffling Machine Operator Name Role Phone Kassy Jay MD Primary Care Provider [phone] Encounter Details Date Type Department Care Team (Latest Contact Info) Description 01/01/2006 Outpatient Historical [facility] Gustavo Sims Extrinsic Asthma, Unspecified (Primary Dx) Social History Tobacco Use Types Packs/Day Years Used Date Smoking Tobacco: Never Assessed Comments Unknown Sex and Gender Information Value Date Recorded Sex Assigned at Not on file Legal Sex Female 4:02 AM INSTRUCTIONAL PARAPROFESSIONAL Gender Identity Not on file Sexual Orientation Not on file documented as of this encounter Plan of Treatment Upcoming Encounters Date Type Department Care Team (Late st Contact Info) Description 09/25/2025 8:30 AM INSTRUCTIONAL PARAPROFESSIONAL Video Visit [facility] Adult Psychiatry [place] [address] [phone] [place] [address] [address] documented as of this encounter Visit Diagnoses Diagnosis Extrinsic asthma, unspecified- Primary documented in this encounter Additional Health Concerns Infection Onset Date Last Indicated Resolved Time R/O COVID-19 06/02/2021 06/03/2021 06/03/2021 7:34 PM CDT R/O COVID-19 12/22/2022 12/22/202212/22/2022 12:2 5 PM CDT R/O COVID-19 09/07/2023 09/07/2023 09/07/2023 9:52 PM INSTRUCTIONAL PARAPROFESSIONAL documented as of this encounter Care Teams Ruffling Machine Operator Relationship Specialty Start Date End Date Kassy Jay MD [address] [place] [phone] PCP - General Family Practice 12/04/22 documented as of this encounter
--- OUTSIDE RECORDS SUMMARY | 2025-08-21 14:00 | XMS_ITS | Encounter Summary ---
Author Organization [facility] Address [address] [place] [address] Care Team Providers Care Chip Mixing Machine Operator Name Role Phone Kassy Jay MD Primary Care Provider [phone] Encounter Details Date Type Department Care Team (OSS Health Contact Info) Description 05/21/2005 Outpatient [facility] [address] [place] [address] Garrett Mittal MD [address] [facility] [address] [place] [address] Social History Tobacco Use Types Packs/Day Years Used Date Smoking Tobacco: Never Assessed Comments Unknown Sex and Gender Information Value Date Recorded Sex Assigned at Not on file Legal Sex Female 4:02 AM CNC TECHNICIAN Gender Identity Not on file Sexual [...] (Late Contact Info) Description 09/25/2025 8:30 AM CNC TECHNICIAN Video Visit [facility] Adult Psychiatry [place] [address] [address] [place] [address] Argelia Law NP [address] [place] [address] documented as of this encounter Visit Diagnoses Not on filedocumented in this encounter Additional Health Concerns Infection Onset Date Last Indicated Resolved Time R/O COVID-19 06/02/2021 06/03/2021 06/03/2021 7:34 PM CDT R/O COVID-19 12/22/2022 12/22/2022 12/22/2022 12:2 5 PM CDT R/O COVID-19 09/07/2023 09/07/2023 09/07/2023 9:52 PM CNC TECHNICIAN documented as of this encounter Care Teams Chip Mixing Machine Operator Relationship Specialty Start Date End Date Kassy Jay MD [address] [place] [address] PCP - General Family Practice 12/04/22 documented as of this encounter
--- OUTSIDE RECORDS SUMMARY | 2025-08-21 14:00 | XMS_ITS | Encounter Summary ---
Author Organization [facility] Address [address] [place] [address] Care Team Providers Care Newspaper Delivery Driver Name Role Phone Kassy Jay MD Primary Care Provider [phone] Encounter Details Date Type Department Care Team (Late Contact Info) Description 1998 Outpatient Historical [facility] Pediatrics - [facility] [address] [place] [address] [place] [address] [place] [address] Social History Tobacco Use Types Packs/Day Years Used Date Smoking Tobacco: Never Assessed Comments Unknown Sex and Gender Information Value Date Recorded Sex Assigned at Not on file Legal Sex Female 4:02 AM FOOT MITER OPERATOR Gender Identity Not on file Sexual Orientation Not on file documented as of this encounter Plan of Treatment Upcoming Encounters Date Type Department Care Team (Late Contact Info) Description 09/25/2025 8:30 AM FOOT MITER OPERATOR Video Visit [facility] Adult Psychiatry [place] [address] [phone] Argelia Law NP [address] [address] documented as of this encounter Visit Diagnoses Not on filedocumented in this encounter Additional Health Concerns Infection Onset Date Last Indicated Resolved Time R/O COVID-19 06/02/2021 06/03/2021 06/03/2021 7:34 PM CDT R/O COVID-19 12/22/2022 12/22/2022 12/22/2022 12:2 5 PM CDT R/O COVID-19 09/07/2023 09/07/2023 09/07/2023 9:52 PM FOOT MITER OPERATOR documented as of this encounter Care Teams Newspaper Delivery Driver Relationship Specialty Start Date End Date Kassy Jay MD [address] [place] [phone] PCP - General Family Practice 12/04/22 documented as of this encounter
--- OUTSIDE RECORDS SUMMARY | 2025-08-21 14:00 | XMS_ITS | Clinical Summary ---
Author Organization [facility] [employer] Address [address] [place] [address] Care Team Providers Care Senior Net Software Developer Name Role Phone Kassy Jay MD Primary Care Provider [phone] Source Comments [facility] [employer],non-owned Affiliates and Associated Physician Practices is amultiple site organization consisting of ambulatory clinics and hospital sitesin [place], [place], [place] and [place]. This disclosure is being madepursuant to the Care Everywhere program and may not contain all information available regarding this patient. Last updated 18.[facility] [employer] Allergies Active Allergy Reactions Criticality Noted Date [...] Zyrtec & solumedrol given. Make appt with [facility]. 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 Recently started on diazoxide. BG [...] sent hypoglycemia labs. Discussed with veronica, outpatient rn nicu Dr. Mejia will f/u with results & [...] Assessment & Plan: Patient reports follows with [facility] psychiatry. Pharmacy list confirmed with patient. [...] Encounters Date Type Department Care Team Description 08/11/2025 Telephone [facility] - ENTRY CLERK [address] [place] [phone] Sam Cui MD Question from Last 3 Months Immunizations Immunization [...] Industry Job Start Date Job End Date [employer] [facility] Not on file Not on file Not on file Last Filed Vital Signs Vital Sign Reading Time Taken Comments Blood Pressure 113/71 10/11/2024 2:05 PM SPACE PLANNER Pulse 82 10/11/2024 2:05 PM SPACE PLANNER Temperature 36.7 C (98.1 F) 10/11/2024 11:52 AM SPACE PLANNER Respiratory Rate 20 10/11/2024 2:05 PM SPACE PLANNER Oxygen Saturation 98% 10/11/2024 2:05 PM SPACE PLANNER Inhaled Oxygen Concentration - - Weight 81.6 kg (180 lb) 10/11/2024 11:52 AM SPACE PLANNER Height 154.9 cm (5' 1) 10/11/2024 11:52 AM SPACE PLANNER Body Mass Index 34.01 10/11/2024 11:52 AM SPACE PLANNER Plan of Treatment Upcoming Encounters Date Type Department Care Team (Late st Contact Info) Description 10/26/2025 2:30 PM SPACE PLANNER Office Visit [facility] - ENTRY CLERK [address] [place] [address], [facility] [address] [place] [address] Sam Cui MD [address] [place] [address] [address] [place] [address] Health Maintenance Due Date Last Done [...] HR ALL PATH Routine 08/31/2023 10:35 AM SPACE PLANNER Routine cervical smear from Last 3 Months or Most Recently Relevant to Health Maintenance Results * PAP IG RFLX HPV HR ALL PATH (08/31/2023 10:35 AM SPACE PLANNER) Diagnosis [facility] INSURANCE BILL Comment: NEGATIVE FOR INTRAEPITHELIAL LESION OR MALIGNANCY. REACTIVE CELLULAR CHANGES AND/OR REPAIR ARE PRESENT. Specimen Adequacy [facility] INSURANCE BILL Comment: Satisfactory for evaluation. Endocervical and/or squamous metaplastic cells (endocervical component) are present. Clinician Provided ICD10 [facility] INSURANCE BILL Comment: Z01.419 Z12.4 Z97.5 Performed by [facility] INSURANCE BILL Comment:Casey Dunn hnologist (ASCP) Electronically Signed by [facility] INSURANCE BILL Comment:Mony Hermosillo MD, P athologist Comment . [facility] INSURANCE BILL Note [facility] INSURANCE BILL Comment: The Pap smear is a screening test designed to aid in the detection of premalignant and malignant conditions of the uterine cervix. It is not a diagnostic procedure and should not be used as the sole means of detecting cervical cancer. Both false-positive and false-negative reports do occur. . [facility] CPT Code Automation [facility] INSURANCE BILL Comment: This liquid based ThinPrep(R) pap test was screened with the use of an image guided system. Note [facility] INSURANCE BILL Comment: The HPV DNA reflex criteria were not met with this specimen result therefore, no HPV testing was performed. . Pathology/Cytolog y ENTIRE ENDOCERVIX / Unknown 08/31/2023 10:35 AM SPACE PLANNER 09/01/2023 Narrative [facility] INSURANCE BILL - 09/03/2023 3:09 PM SPACE PLANNER Source.............Cervix No. of containers..01 ThinPrep Vial Resulting Agency Comment Lab Testing performed at: [facility] [place] [id number] Sam Cui MD LAB - PATHOLOGY/CYTOLOGY ORDERAB LES Final Result [facility] INSURANCE BILL [address] [place] [address] from Last 3 Months or Most Recently Relevant to Health Maintenance Insurance MEDICAID [employer] [employer] Care Teams Senior Net Software Developer Relationship Specialty Start Date End Date Kassy Jay MD [address] [place] [phone] PCP - General Family Medicine 06/15/23
--- OUTSIDE RECORDS SUMMARY | 2025-08-21 14:00 | XMS_ITS | Encounter Summary ---
Author Organization [facility] Address [address] [place] [address] Care Team Providers Care Photography Colorist Name Role Phone Kassy Jay MD Primary Care Provider [phone] Encounter Details Date Type Department Care Team (Late Contact Info) Description 07/21/2005 Outpatient Historical [facility] Pediatrics - [facility] [address] [place] [address] [place] [address] [place] [address] Social History Tobacco Use Types Packs/Day Years Used Date Smoking Tobacco: Never Assessed Comments Unknown Sex and Gender Information Value Date Recorded Sex Assigned at Not on file Legal Sex Female 4:02 AM GRADING MACHINE FEEDER Gender Identity Not on file Sexual Orientation Not on file documented as of this encounter Plan of Treatment Upcoming Encounters Date Type Department Care Team (Late Contact Info) Description 09/25/2025 8:30 AM GRADING MACHINE FEEDER Video Visit [facility] Adult Psychiatry [place] [address] [phone] Argelia Law NP [address] [address] documented as of this encounter Visit Diagnoses Not on filedocumented in this encounter Additional Health Concerns Infection Onset Date Last Indicated Resolved Time R/O COVID-19 06/02/2021 06/03/2021 06/03/2021 7:34 PM CDT R/O COVID-19 12/22/2022 12/22/2022 12/22/2022 12:2 5 PM CDT R/O COVID-19 09/07/2023 09/07/2023 09/07/2023 9:52 PM GRADING MACHINE FEEDER documented as of this encounter Care Teams Photography Colorist Relationship Specialty Start Date End Date Kassy Jay MD [address] [place] [address] [phone] PCP - General Family Practice 12/04/22 documented as of this encounter
--- OUTSIDE RECORDS SUMMARY | 2025-08-21 14:01 | XMS_ITS | Encounter Summary ---
Author Organization [facility] Address [address] [place] [address] Care Team Providers Care Health Support Specialist Name Role Phone Kassy Jay MD Primary Care Provider [phone] Encounter Details Date Type Department Care Team (Late Contact Info) Description 12/06/2007 Outpatient Historical [facility] Pediatrics - [facility] [address] [place] [address] [place] [address] [place] [address] Social History Tobacco Use Types Packs/Day Years Used Date Smoking Tobacco: Never Assessed Comments Unknown Sex and Gender Information Value Date Recorded Sex Assigned at Not on file Legal Sex Female 4:02 AM LITIGATION PARTNER Gender Identity Not on file Sexual Orientation Not on file documented as of this encounter Plan of Treatment Upcoming Encounters Date Type Department Care Team (Late Contact Info) Description 09/25/2025 8:30 AM LITIGATION PARTNER Video Visit [facility] Adult Psychiatry [place] [address] [phone] Argelia Law NP [address] [address] documented as of this encounter Visit Diagnoses Not on filedocumented in this encounter Additional Health Concerns Infection Onset Date Last Indicated Resolved Time R/O COVID-19 06/02/2021 06/03/2021 06/03/2021 7:34 PM CDT R/O COVID-19 12/22/2022 12/22/2022 12/22/2022 12:2 5 PM CDT R/O COVID-19 09/07/2023 09/07/2023 09/07/2023 9:52 PM LITIGATION PARTNER documented as of this encounter Care Teams Health Support Specialist Relationship Specialty Start Date End Date Kassy Jay MD [address] [place] [address] [phone] PCP - General Family Practice 12/04/22 documented as of this encounter
--- OUTSIDE RECORDS SUMMARY | 2025-08-21 14:01 | XMS_ITS | Encounter Summary ---
Author Organization [facility] Address [address] [place] [address] Care Team Providers Care High Density Press Operator Name Role Phone Kassy Jay MD Primary Care Provider [phone] Encounter Details Date Type Department Care Team (Late Contact Info) Description 1998 Outpatient Historical [facility] Darren Bansal MD NO ADDRESS ON FILE Social History Tobacco Use Types Packs/Day Years Used Date Smoking Tobacco: Never Assessed Comments Unknown Sex and Gender Information Value Date Recorded Sex Assigned at Not on file Legal Sex Female 4:02 AM SLOT FLOOR ATTENDANT Gender Identity Not on file Sexual Orientation Not on file documented as of this encounter Plan of Treatment Upcoming Encounters Date Type Department Care Team ([facility] Contact Info) Description 09/25/2025 8:30 AM SLOT FLOOR ATTENDANT Video Visit [facility] Adult Psychiatry [place] [address] [place] [address] [facility] Argelia Lopez NP [address] [address] documented as of this encounter Visit Diagnoses Not on filedocumented in this encounter Additional Health Concerns Infection Onset Date Last Indicated Resolved Time R/O COVID-19 06/02/2021 06/03/2021 06/03/2021 7:34 PM CDT R/O COVID-19 12/22/2022 12/22/2022 12/22/2022 12:2 5 PM CDT R/O COVID-19 09/07/2023 09/07/2023 09/07/2023 9:52 PM SLOT FLOOR ATTENDANT documented as of this encounter Care Teams High Density Press Operator Relationship Specialty Start Date End Date Kassy Jay MD [address] [place] [address] [phone] PCP - General Family Practice 12/04/22 documented as of this encounter
--- OUTSIDE RECORDS SUMMARY | 2025-08-21 14:01 | XMS_ITS | Encounter Summary ---
Author Organization [facility] Address [address] [place] [address] Care Team Providers Care Human Resource Adviser Name Role Phone Kassy Jay MD Primary Care Provider [phone] Encounter Details Date Type Department Care Team (Late Contact Info) Description 12/06/2007 Outpatient Historical [facility] Pediatrics - [facility] [address] [place] [address] [place] [address] [place] [address] Social History Tobacco Use Types Packs/Day Years Used Date Smoking Tobacco: Never Assessed Comments Unknown Sex and Gender Information Value Date Recorded Sex Assigned at Not on file Legal Sex Female 4:02 AM THREADING MACHINE SETTER Gender Identity Not on file Sexual Orientation Not on file documented as of this encounter Plan of Treatment Upcoming Encounters Date Type Department Care Team (Late Contact Info) Description 09/25/2025 8:30 AM THREADING MACHINE SETTER Video Visit [facility] Adult Psychiatry [place] [address] [phone] Argelia Law NP [address] [address] documented as of this encounter Visit Diagnoses Not on filedocumented in this encounter Additional Health Concerns Infection Onset Date Last Indicated Resolved Time R/O COVID-19 06/02/2021 06/03/2021 06/03/2021 7:34 PM CDT R/O COVID-19 12/22/2022 12/22/2022 12/22/2022 12:2 5 PM CDT R/O COVID-19 09/07/2023 09/07/2023 09/07/2023 9:52 PM THREADING MACHINE SETTER documented as of this encounter Care Teams Human Resource Adviser Relationship Specialty Start Date End Date Kassy Jay MD [address] [place] [phone] PCP - General Family Practice 12/04/22 documented as of this encounter
--- OUTSIDE RECORDS SUMMARY | 2025-08-21 14:01 | XMS_ITS | Clinical Summary ---
Author Organization [facility] Address [address] [place] [address] Phone Care Team Providers Care Criminal Attorney Name Role Phone Kassy Jay MD Primary Care Provider [phone] Allergies Active Allergy Reactions Criticality Noted Date Comments Amoxicillin-Pot Clavulanate Diarrhea,David sea and Vomiting,Hives High 05/21/2005 Bee Sting Kit Anaphylaxis High 03/23/2022 Cat Hair Standardized Allergenic Extract Hives High 03/22/2020 Hymenoptera Allergenic Extract Hives High 03/16/2020 Tree Nut Hives,Shortness of Breath/Wheezing,Other (See Comments) High 02/27/2010 Venom-Honey Bee Anaphylaxis High 07/20/2022 Medications gabapentin (NEURONTIN) 600 mg tablet Take [...] daily as needed for Anaphylaxis. 1 Each 025 Active methylphenidate HCl 27 mg Extended [...] Amount: 27 mg 30 Tablet 026 Active cariprazine (Vraylar) 6 mg Capsule capsuleIndicatio ns:BARBIE (generalized anxiety disorder),Unspec ified mood (affective) disorder,Bipolar 1 disorder, mixed, partial remission (CMS/HCC),Border line personality disorder (CMS/HCC) Take 1 Capsule (6 mg) by mouth daily. 30 Capsule 3 025 Active LORazepam (ATIVAN) 2 mg tabletIndication s:BARBIE (generalized anxiety disorder) Take 1 Tablet (2 mg) by mouth 3 times daily as needed for Anxiety. 90 Tablet 3 025 Active FLUoxetine (PROzac) 40 mg capsuleIndicatio ns:BARBIE (generalized anxiety disorder) Take 2 Capsules (80 mg) by mouth daily. 60 Capsule 1 025 Active traZODone (DESYREL) 300 mg tabletIndication s:Insomnia, unspecified type Take 1 Tablet (300 mg) by mouth daily at bedtime. 30 Tablet 1 Active scopolamine (TRANSDERM-SCOP) 1 mg/72 hr patch Apply 1 Patch to skin as directed see administration instructions. Active traZODone (DESYREL) 300 mg tabletIndication s:BARBIE [...] A DAY 180 Tablet 025 2024 Discontinued traZODone (DESYREL) 100 mg tabletIndication s:Insomnia, unspecified type Take 2 Tablets (200 mg) by mouth daily at bedtime. 60 Tablet 3 025 2024 Discontinued(R eorder) FLUoxetine (PROzac) 20 mg capsuleIndicatio ns:BARBIE (generalized anxiety disorder) Take 1 Capsule (20 mg) by mouth daily. 30 Capsule 3 025 2024 Discontinued FLUoxetine (PROzac) 40 mg capsuleIndicatio ns:BARBIE (generalized anxiety disorder) Take 1 Capsule (40 mg) by mouth daily. 30 Capsule 3 025 2024 Discontinued(R eorder) Active Problems Problem [...] menses 01/21/2017 Overview (04/15/2021): Overview: [place] [place] [employer]; has follow up with 02/06/17 Overview: Overview: [...] Zyrtec & solumedrol given. Make appt with walking dragline operator. Psychogenic nonepileptic seizure 12/16/2021 08/19/2023 Nightmares 07/01/2021 08/19/2023 Atrial tachycardia 04/15/2021 4 Febrile illness 04/15/2021 08/19/2023 Frequent headaches 04/15/2021 Hospital discharge follow-up 04/15/2021 08/19/2023 Mild intermittent [...] Encounters Date Type Department Care Team Description 08/21/2025 Refill [facility] [place] [facility] [place] [address] Kassy Jay MD Moderate persistent asthma without complication 08/19/2025 Telephone [facility] [place] [address] Kassy Jay MD form 08/15/2025 1:30 PM PLASTIC TOOL MAKER [facility] [place] [address] Kassy Jay MD Folate deficiency (Primary Dx); Acute cough; Anorexia nervosa, restricting type, unspecified severity (CMS/HCC) 08/15/2025 Results Follow-Up [facility] [place] [address] Kassy Jay MD POC INFLUENZA A/B AND COVID-19 ANTIGENS, CBC WITH DIFFERENTIAL, COMPREHENSIVE METABOLIC PANEL, VITAMIN B12 AND FOLATE 08/08/2025 4:30 PM PLASTIC TOOL MAKER Video Visit [facility] Adult Psychiatry [place] [address] [place] [address] Argelia Law NP Bipolar 1 disorder, mixed (CMS/HCC) (Primary Dx); BARBIE (generalized anxiety disorder); Insomnia, unspecified type; Attention deficit hyperactivity disorder (ADHD), predominantly inattentive type; Borderline personality disorder (CMS/HCC); PTSD (post-traumatic stress disorder); Atypical anorexia nervosa 08/08/2025 External Device Data [facility] ABSTRACTION Provider, Abstract 08/08/2025 External Device Data [place] Provider, Abstract 08/07/2025 4:26 PM PLASTIC TOOL MAKER - 08/07/2025 7:23 PM [facility] Emergency [facility] Emergency Department [address] [place] [address] Xavier Scruggs DO Psychogenic nonepileptic seizure (Primary Dx) Discharge Disposition: Home or Self Care 08/07/2025 Telephone [facility] Psychiatry [facility] and [address] [place] [address] Argelia Law NP Update 08/01/2025 External Device Data [facility] ABSTRACTION Provider, Abstract 07/27/2025 7:30 AM PLASTIC TOOL MAKER Video Visit [facility] Psychiatry [address] [place] [address] Argelia Law NP Bipolar 1 disorder, mixed, partial remission (CMS/HCC) (Primary Dx); Insomnia, unspecified type; BARBIE (generalized anxiety disorder); Unspecified mood (affective) disorder; Borderline personality disorder (CMS/HCC); Attention deficit hyperactivity disorder (ADHD), predominantly inattentive type; Panic disorder; PTSD (post-traumatic stress disorder); Atypical anorexia nervosa 07/27/2025 Refill [facility] Adult Psychiat[facility] [address] [place] [address] Argelia Law NP Attention deficit hyperactivity disorder (ADHD), predominantly inattentive type 07/25/2025 External Device Data [place] ABSTRACTION Provider, Abstract 07/19/2025 External Device Data [place] ABSTRACTION Provider, Abstract 07/19/2025 External Device Data [facility] ABSTRACTION Provider, Abstract 07/05/2025 [facility] Psychiatry [address] [address] [place] [address] Argelia Law NP BARBIE (generalized anxiety disorder) 07/02/2025 [facility] Psychiatry [address] [address] [place] [address] Argelia Law NP Unspecified mood (affective) disorder 06/26/2025 9:00 AM CDT Video Visit [facility] Psychiatry [address] [place] [address] Argelia Law NP Bipolar 1 disorder, mixed, partial remission (CMS/HCC) (Primary Dx); Attention deficit hyperactivity disorder (ADHD), predominantly inattentive type; PTSD (post-traumatic stress disorder); BARBIE (generalized anxiety disorder); Panic disorder; Borderline personality disorder (CMS/HCC); Insomnia, unspecified type; Atypical anorexia nervosa; Unspecified mood (affective) disorder 06/26/2025 [facility] Psychiatry [address] [place] [address] Argelia Law NP Attention deficit hyperactivity disorder (ADHD), predominantly inattentive type 06/20/2025 [facility] Psychiatry [address] [place] [address] Argelia Law NP Erroneous encounter-disregard 06/12/2025 2:00 PM CDT Video Visit [facility] Psychiatry [address] [place] [address] Argelia Law NP Bipolar 1 disorder, mixed, partial remission (CMS/HCC) (Primary Dx); BARBIE (generalized anxiety disorder); Borderline personality disorder (CMS/HCC); Attention deficit hyperactivity disorder (ADHD), predominantly inattentive type; Insomnia, unspecified type; Atypical anorexia nervosa; PTSD (post-traumatic stress disorder); Panic disorder; Unspecified mood (affective) disorder 06/12/2025 [facility] Psychiatry [address] [place] [address] Argelia Law NP Attention deficit hyperactivity disorder (ADHD), predominantly inattentive type 06/07/2025 External Device Data [facility] ABSTRACTION Provider, Abstract 06/06/2025 External Device Data [place] ABSTRACTION Provider, Abstract 06/02/2025 Refill [facility] Adult Psychiatry [address] [address] [place] [address] Argelia Law NP BARBIE (generalized anxiety disorder) 05/30/2025 External Device Data [place] ABSTRACTION Provider, Abstract 05/29/2025 7:30 AM CDT Video Visit [facility] Adult Psychiatry [address] [address] [place], [place] [address] Argelia Law NP Attention deficit hyperactivity disorder (ADHD), predominantly inattentive type (Primary Dx); BARBIE (generalized anxiety disorder); Insomnia, unspecified type; Bipolar 1 disorder, mixed, partial remission (CMS/HCC); Borderline personality disorder (CMS/HCC); Atypical anorexia nervosa; PTSD (post-traumatic stress disorder); Panic disorder 05/29/2025 Refill [facility] Adult Psychiatry [address] [address] [place] [address] Argelia Law NP Attention deficit hyperactivity disorder (ADHD), predominantly inattentive type (Primary Dx) 05/24/2025 External Device Data STL ABSTRACTION Provider, Abstract 05/23/2025 Telephone [facility] Psychiatry [facility] and [facility] [address] [facility] [place] [address] Argelia Law NP Medication Problem from Last 3 Months Immunizations Immunization Administration [...] 08/09/2009 Influenza Seasonal Unspecifi ed Formulation IM 06/22/2024,07/01/2021,09/04/2011,07/10 Influenza Vaccine 18+ C.derived Pf Im 05/31/2025 Influenza Vaccine Quad Split 6-35 Mo Pf Im 08/17/2014 Influenza Vaccine Split 3+ Yrs IM 2006,07/18/2005,07/18/2004,08/01,07/06/2002,08/23/2001,07/13/2001 Influenza Vaccine Split 3+ Yrs PF IM 07/29/2008 Influenza, Unspecified Formulation 06/20,09/04/2011,08/09/2009,07/10,07/29/2008,07/03/2007,07/18/2005 ,07/18/2004,08/01/2003,07/06/2002,11/2000,07/13/2001 Meningococcal A Conjugate Vaccine IM 02/27/2010 Meningococcal [...] Augustin Love in 2011 from fall in care home No Known Problems Paternal Grandmother Celiac [...] Never 02/09/2020 How often do you attend worship or gnosticist serv ices? Never 02/09/2020 Do you belong to any clubs o r organizations such as worship groups, unions, fraternal or athletic groups, or [...] Answer Date Recorded Social/Environmental Concerns No concerns 12 / Education Answer Date Recorded What is the highest level of school you have completed or the highest degree you have received? Bachelor's degree (e.g., BA, AB, BS) 02/09/2020 Comments No Sex and Gender Information Value Date Recorded Sex Assigned at Not on file Legal Sex Female 4:02 AM PLASTIC TOOL MAKER Gender Identity Not on file Sexual Orientation Not on file Occupation Industry Job Start Date Job End Date student Not on file Not on file Not on file Last Filed Vital Signs Vital Sign Reading Time Taken Comments Blood Pressure 130/84 08/15/2025 1:19 PM PLASTIC TOOL MAKER Pulse 100 08/15/2025 1:19 PM PLASTIC TOOL MAKER Temperature 36.7 C (98.1 F) 08/15/2025 1:19 PM PLASTIC TOOL MAKER Respiratory Rate 13 08/07/2025 6:45 PM PLASTIC TOOL MAKER Oxygen Saturation 97% 08/15/2025 1:19 PM PLASTIC TOOL MAKER Inhaled Oxygen Concentration - - Weight 77.2 kg (170 lb 3.2 oz) 08/15/2025 1:19 P M PLASTIC TOOL MAKER Height 154.9 cm (5' 1) 08/15/2025 1:19 PM PLASTIC TOOL MAKER Body Mass Index 32.16 08/15/2025 1:19 PM PLASTIC TOOL MAKER Plan of Treatment Upcoming Encounters Date Type Department Care Team (Late st Contact Info) Description 09/25/2025 8:30 AM PLASTIC TOOL MAKER Video Visit [facility] Adult Psychiatry [place] [id number] [address] [place], [facility] [address] [id number] Health Maintenance Due Date Last Done Comments [...] history exists Medical Devices Implanted Type Area Insert Cutter Device Identifier Shelf Expiration Date Model / Serial / Lot Clip Ti Med/Lg [id number] - Csc - [id number] Implanted:Qty: 2 on 01/03/2025 by Tarik Cervanets DO at [facility] N/A: Abdomen TELEFLEX- WECK CLOSURE SYS 06/09/2029 [id number] / / [id number] Iud Procedures Procedure Name Priority Date/Time Associated Diagnosis Comments VITAMIN B12 AND FOLATE Routine 2:29 PM PLASTIC TOOL MAKER Folate deficiency COMPREHENSIVE METABOLIC PANEL Routine 08/15/2025 2:29 PM PLASTIC TOOL MAKER Anorexia nervosa, restricting type, unspecified severity (CMS/HCC) CBC WITH DIFFERENTIAL Routine 08/15/2025 2:29 PM PLASTIC TOOL MAKER Anorexia nervosa, restricting type, unspecified severity (CMS/HCC) POC INFLUENZA A/B AND COVID-19 ANTIGENS Routine 08/15/2025 1:55 PM PLASTIC TOOL MAKER Acute cough EXTRA TUBE (URINE GALARZA) Stat 08/07/2025 5:50 PM PLASTIC TOOL MAKER URINALYSIS W/REFLEX MICROSCOPIC Stat 08/07/2025 5:50 PM PLASTIC TOOL MAKER DRUG SCREEN, URINE Stat 08/07/2025 5: 50 PM PLASTIC TOOL MAKER HCG QUALITATIVE, URINE Stat 5:50 PM PLASTIC TOOL MAKER ETHANOL LEVEL Stat 08/07/2025 5:28 PM PLASTIC TOOL MAKER LACTIC ACID Stat 08/07/2025 5:28 PM PLASTIC TOOL MAKER MAGNESIUM LEVEL Stat 08/07/2025 5:28 PM PLASTIC TOOL MAKER COMPREHENSIVE METABOLIC PANEL Stat 08/07/2025 5:28 PM PLASTIC TOOL MAKER CBC WITH DIFFERENTIAL Stat 08/07/2025 5:28 PM PLASTIC TOOL MAKER from Last 3 Months Results * VITAMIN B12 AND FOLATE (08/15/2025 2:29 PM PLASTIC TOOL MAKER) [facility] VITAMIN B12 622 200 - 1100 pg/mL [facility] FOLATE, SERUM 8.4 ng/mL [facility] Comment: Reference Range Low: <3.4 Borderline: 3.4-5.4 Normal: >5.4 Test Performed at: [facility] [address] [place] [address] Lc Andrews MD Blood 08/15/2025 2:29 PM PLASTIC TOOL MAKER 08/16/2025 2:40 AM PLASTIC TOOL MAKER Kassy Jay MD CHEMISTRY ORDERABLES Final Resu lt [facility] [phone] [facility] [id number] [place] [address] * CBC WITH DIFFERENTIAL (08/15/2025 2:29 PM PLASTIC TOOL MAKER) Only the most recent of2 resultswithin the time period is included. [facility] WBC 5.9 3.8 - 10.8 Thousand/u L [facility] RBC 4.75 3.80 - 5.10 Million/uL [facility] HEMOGLOBIN 13.8 11.7 - 15.5 g/dL [facility] HEMATOCRIT 42.9 35.9 - 46.0 % [facility] MCV 90.3 81.4 - 101.7 fL [facility] MCH 29.1 27.0 - 33.0 pg [facility] MCHC 32.2 31.6 - 35.4 g/dL [facility] Comment: For adults, a slight decrease in the calculated MCHC value (in the range of 30 to 32 g/dL) is most likely not clinically significant; however, it should be interpreted with caution in correlation with other red cell parameters and the patient's clinical condition. RDW 12.1 11.0 - 15.0 % [facility] PLATELETS 234 140 - 400 Thousand/u L [facility] MPV 11.0 7.5 - 12.5 fL [facility] NEUTROPHIL ABSOLUTE 4,095 1,500 - 7,800 cells/uL [facility] LYMPHOCYTE ABSOLUTE 1,145 850 - 3,900 cells/uL [facility] MONOCYTE ABSOLUTE 490 200 - 950 cells/uL [facility] EOSINOPHIL ABSOLUTE 153 15 - 500 cells/uL [facility] BASOPHILS ABSOLUTE 18 0 - 200 cells/uL [facility] NEUTROPHIL 69.4 % [facility] LYMPHOCYTES 19.4 % [facility] MONOCYTE 8.3 % [facility] EOSINOPHILS 2.6 % [facility] BASOPHILS 0.3 % [facility] Comment: Test Performed at: [place] [place] [address] [place] [address] Lc Andrews Blood 08/15/2025 2:29 PM PLASTIC TOOL MAKER 08/16/2025 2:40 AM PLASTIC TOOL MAKER us Kassy Jay MD HEMATOLOGY ORDERABLES Final Res ult [facility] [phone] [place] [place] [address] [place] [address] * COMPREHENSIVE METABOLIC PANEL (08/15/2025 2:29 PM PLASTIC TOOL MAKER) Only the most recent of2 resultswithin the time period is included. GLUCOSE 96 65 - 99 mg/dL [facility] Comment: Fasting reference interval BUN 10 7 - 25 mg/dL [facility] CREATININE 0.56 0.50 - 0.96 mg/dL [facility] GFR 128 > OR = 60 mL/min/1. 73m2 [facility] BUN/CREAT RATIO SEE NOTE: 6 (calc) [facility] Comment: Not Reported: BUN and Creatinine are within reference range. SODIUM 139 135 - 146 mmol/L [facility] POTASSIUM 4.1 3.5 - 5.3 mmol/L [facility] CHLORIDE 104 98 - 110 mmol/L [facility] CO2 26 20 - 32 mmol/L [facility] CALCIUM 9.0 8.6 - 10.2 mg/dL [facility] TOTAL PROTEIN 6.8 6.1 - 8.1 g/dL [facility] ALBUMIN 4.4 3.6 - 5.1 g/dL [facility] GLOBULIN 2.4 1.9 - 3.7 g/dL (calc) [facility] ALBUMIN/GLOBULIN RATIO 1.8 1.0 - 2.5 (calc) [facility] BILIRUBIN TOTAL 0.3 0.2 - 1.2 mg/dL [facility] ALKALINE PHOSPHATASE 51 31 - 125 U/L [facility] AST 14 10 - 30 U/L [facility] ALT 17 6 - 29 U/L [facility] Comment: Test Performed at: [facility] [place] [address] [place] [address] Susi-Jeanette Andre Blood 08/15/2025 2:29 PM PLASTIC TOOL MAKER 08/16/2025 2:40 AM PLASTIC TOOL MAKER Kassy Jay MD CHEMISTRY ORDERABLES Final Resu lt [facility] [phone] [facility] [place] [address] [place] [address] * POC INFLUENZA A/B AND COVID-19 ANTIGENS (08/15/2025 1:55 PM PLASTIC TOOL MAKER) INFLUENZA A AG POC Not Detected Not Detected [facility] INFLUENZA B AG POC Not Detected Not Detected [facility] COVID-19 ANTIGEN POC Presumptively Negative Presumptively Negative [facility] INTERNAL KIT QC POC Pass Pass [facility] [employer] KIT LOT NUMBER POC [id number] [facility] K[facility] EXP DATE POC 03/20/2026 [facility] Upper Respiratory 08/15/2025 1:55 PM PLASTIC TOOL MAKER us Kassy Jay MD POINT OF CARE TESTING Final Res ult [facility] CLIA# [id number] [address], [address] [place] [address] * EXTRA TUBE (URINE GALARZA) (08/07/2025 5:50 PM PLASTIC TOOL MAKER) Urine URINE SPECIMEN OBTAINED BY CLEAN CATCH PROCEDURE / Unknown Collection / Unknown 08/07/2025 5:50 PM PLASTIC TOOL MAKER 08/07/2025 5:58 PM PLASTIC TOOL MAKER us Xavier Scruggs DO URINE ORDERABLES Final Res ult [id number] [place] [address] * (ABNORMAL) DRUG SCREEN, URINE (08/07/2025 5:50 PM PLASTIC TOOL MAKER) Pathologist [facility] AMPHETAMINE QUAL, URINE Negative Negative 08/07/2025 6:33 PM PLASTIC TOOL MAKER [facility] BARBITURATE QUAL, URINE Negative Negative 08/07/2025 6:33 PM PLASTIC TOOL MAKER [facility] BENZODIAZEPINE QUAL, URINE Presumptive Positive(A) Negative 08/07/2025 6:33 PM PLASTIC TOOL MAKER [facility] COCAINE QUAL URINE Negative Negative 08/07/2025 6:33 PM PLASTIC TOOL MAKER [facility] OPIATE QUAL, URINE Negative Negative 08/07/2025 6:33 PM PLASTIC TOOL MAKER [facility] CANNABINOIDS QUAL, URINE Negative Negative 08/07/2025 6:33 PM PLASTIC TOOL MAKER [facility] PCP QUAL, URINE Negative Negative 6:33 PM PLASTIC TOOL MAKER [facility] OXYCODONE QUAL, URINE Negative Negative 08/07/2025 6:33 PM PLASTIC TOOL MAKER [facility] METHADONE QUAL, URINE Negative Negative 08/07/2025 6:33 PM [facility] FENTANYL QUAL, URINE Negative Negative 08/07/2025 6:33 PM [facility] CREATININE, URINE 35.9 29.0 - 226.0 mg/dL 08/07/2025 6:33 PM [facility] Comment:Reference Range vari es with fluid intake and diet. Urine URINE SPECIMEN OBTAINED BY CLEAN CATCH PROCEDURE / Unknown Collection / Unknown 08/07/2025 5:50 PM PLASTIC TOOL MAKER 08/07/2025 5:58 PM PLASTIC TOOL MAKER [facility] - 08/07/2025 6:33 PM PLASTIC TOOL MAKER This test is a qualitative screen. The presumptive positive results should not be used for legal purposes. If confirmation of results is desired, the lab must be contacted without delay. Drug Ref. Range Screening Threshold Amphetamines Negative 500 ng/mL Barbiturates Negative 200 ng/mL Benzodiazepines Negative 100 ng/mL Cannabinoids Negative 50 ng/mL Cocaine Negative 150 ng/mL Methadone Negative 300 ng/mL Opiates Negative 300 ng/mL Oxycodone Negative 100 ng/mL Phencyclidine Negative 25 ng/mL Fentanyl Negative 5 ng/mL us Xavier Scruggs DO URINE ORDERABLES Final Res ult [facility] CLIA# [id number] [place] [address] * URINALYSIS WITH REFLEX MICROSCOPIC (08/07/2025 5:50 PM PLASTIC TOOL MAKER) COLOR UA Pale Yellow Pale to Dark Yellow 08/07/2025 6:05 PM [facility] CLARITY UA Clear Clear 08/07/2025 6:05 PM [facility] SPECIFIC GRAVITY UA 1.012 1.003 - 1.035 08/07/2025 6:05 PM [facility] PH UA 6.0 5.0 - 8.0 08/07/2025 6:05 PM [facility] LEUKOCYTE ESTERASE UA Negative Negative 08/07/2025 6:05 PM [facility] NITRITE UA Negative Negative 08/07/2025 6:05 PM PLASTIC TOOL MAKER [facility] PROTEIN UA Negative Negative 08/07/2025 6:05 PM PLASTIC TOOL MAKER [facility] GLUCOSE UA Negative Negative 08/07/2025 6:05 PM PLASTIC TOOL MAKER [facility] KETONES UA Negative Negative 08/07/2025 6:05 PM PLASTIC TOOL MAKER [facility] UROBILINOGEN UA Normal <2.0 mg/dL 6:05 PM PLASTIC TOOL MAKER [facility] BILIRUBIN UA Negative Negative 08/07/2025 6:05 PM PLASTIC TOOL MAKER [facility] BLOOD UA Negative Negative 08/07/2025 6:05 PM PLASTIC TOOL MAKER [facility] Urine URINE SPECIMEN OBTAINED BY CLEAN CATCH PROCEDURE / Unknown Collection / Unknown 08/07/2025 5:50 PM PLASTIC TOOL MAKER 08/07/2025 5:58 PM PLASTIC TOOL MAKER us Xavier Scruggs DO URINE ORDERABLES Final Res ult [facility] CLIA# [id number] [place] [address] * HCG QUALITATIVE, URINE (08/07/2025 5:50 PM PLASTIC TOOL MAKER) HCG QUAL URINE Negative Negative 08/07/2025 6:10 PM PLASTIC TOOL MAKER [facility] COLOR UA Yellow Pale to Dark Yellow 08/07/2025 6:10 PM PLASTIC TOOL MAKER [facility] CLARITY UA Clear Clear 08/07/2025 6:10 PM PLASTIC TOOL MAKER [facility] Urine URINE SPECIMEN OBTAINED BY CLEAN CATCH PROCEDURE / Unknown Collection / Unknown 08/07/2025 5:50 PM PLASTIC TOOL MAKER 08/07/2025 5:58 PM PLASTIC TOOL MAKER us Xavier Scruggs DO URINE ORDERABLES Final Res ult [facility] CLIA# [id number] [place] [address] * LACTIC ACID (08/07/2025 5:28 PM PLASTIC TOOL MAKER) Pathologist [facility] LACTIC ACID 0.7 <=2.0 mmol/L 08/07/2025 6:23 PM PLASTIC TOOL MAKER [facility] Blood BLOOD SPECIMEN / Unknown Venipuncture / Unknown 08/07/2025 5:28 PM PLASTIC TOOL MAKER 08/07/2025 5:53 PM PLASTIC TOOL MAKER Xavier Scruggs DO CHEMISTRY ORDERABLES Final Result [facility] [id number] [place] [address] * MAGNESIUM LEVEL (08/07/2025 5:28 PM PLASTIC TOOL MAKER) [facility] MAGNESIUM 1.7 1.6 - 2.6 mg/dL 08/07/2025 6:25 PM PLASTIC TOOL MAKER [facility] Blood Venipuncture / Unknown 08/07/2025 5:28 PM PLASTIC TOOL MAKER 08/07/2025 5:55 PM PLASTIC TOOL MAKER Xavier Scruggs DO CHEMISTRY ORDERABLES Final Result [facility] [id number] [place] [address] * ETHANOL LEVEL (08/07/2025 5:28 PM PLASTIC TOOL MAKER) Pathologist [facility] ETHANOL <10.10 No Ref Range Estab mg/dL 08/07/2025 6:25 PM PLASTIC TOOL MAKER [facility] ETHANOL % <0.01 %w/v 08/07/2025 6:25 PM PLASTIC TOOL MAKER [facility] Blood Venipuncture / Unknown 08/07/2025 5:28 PM PLASTIC TOOL MAKER 08/07/2025 5:55 PM PLASTIC TOOL MAKER Xavier Scruggs DO CHEMISTRY ORDERABLES Final Result [facility]# [id number] [place] [address] from Last 3 Months Insurance [facility] MEDICAID STUDENT RESOURCES [id number] AETNA CHOICE POS II RX INFOCROSSING Medicaid RX [facility] RX [place] PLANS (INTERNAL) [facility] Internal Plans [facility] [place] [place] MEDICAID Advance Directives For more information, please contact: [phone] * Full Code (Latest Code Status on [...] 8:57 PM 10/10/2021 1:06 PM Care Teams Criminal Attorney Relationship Specialty Start Date End Date Kassy Jay MD [address] [place] [phone] PCP - General Family Practice 12/04/22
--- OUTSIDE RECORDS SUMMARY | 2025-08-21 14:01 | XMS_ITS | Encounter Summary ---
Author Organization [facility] Address [address] [place] [address] Care Team Providers Care Principal Account Clerk Name Role Phone Kassy Jay MD Primary Care Provider [phone] Encounter Details Date Type Department Care Team (Late Contact Info) Description 12/06/2007 Outpatient Historical [facility] Pediatrics - [facility] [address] [place] [address] [place] [address] [place] [address] Social History Tobacco Use Types Packs/Day Years Used Date Smoking Tobacco: Never Assessed Comments Unknown Sex and Gender Information Value Date Recorded Sex Assigned at Not on file Legal Sex Female 4:02 AM CAPSULE MACHINE OPERATOR Gender Identity Not on file Sexual Orientation Not on file documented as of this encounter Plan of Treatment Upcoming Encounters Date Type Department Care Team (Late Contact Info) Description 09/25/2025 8:30 AM CAPSULE MACHINE OPERATOR Video Visit [facility] Adult Psychiatry Varinder [address] [phone] Argelia Law NP [address] [address] documented as of this encounter Visit Diagnoses Not on filedocumented in this encounter Additional Health Concerns Infection Onset Date Last Indicated Resolved Time R/O COVID-19 06/02/2021 06/03/2021 06/03/2021 7:34 PM CDT R/O COVID-19 12/22/2022 12/22/2022 12/22/2022 12:2 5 PM CDT R/O COVID-19 09/07/2023 09/07/2023 09/07/2023 9:52 PM CAPSULE MACHINE OPERATOR documented as of this encounter Care Teams Principal Account Clerk Relationship Specialty Start Date End Date Kassy Jay MD [address] [place] [phone] PCP - General Family Practice 12/04/22 documented as of this encounter
--- OUTSIDE RECORDS SUMMARY | 2025-08-21 14:01 | XMS_ITS | Encounter Summary ---
Author Organization [facility] Address [address] [place] [address] Care Team Providers Care Hospital Insurance Representative Name Role Phone Kassy Jay MD Primary Care Provider [phone] Encounter Details Date Type Department Care Team (Late Contact Info) Description 05/04/2008 Outpatient Historical [facility] [address] [place] [address] Headache Social History Tobacco Use Types Packs/Day Years Used Date Smoking Tobacco: Never Assessed Comments No Sex and Gender Information Value Date Recorded Sex Assigned at Not on file Legal Sex Female 4:02 AM THEATER SET PRODUCTION DESIGNER Gender Identity Not on file Sexual Orientation Not on file documented as of this encounter Plan of Treatment Upcoming Encounters Date Type Department Care Team ([facility] Contact Info) Description 09/25/2025 8:30 AM THEATER SET PRODUCTION DESIGNER Video Visit [facility] Adult Psychiatry Var[place] [address] [phone] Argelia Law NP [address] [address] documented as of this encounter Visit Diagnoses Diagnosis Headache(784.0) Headache documented in this encounter Additional Health Concerns Infection Onset Date Last Indicated Resolved Time R/O COVID-19 06/02/2021 06/03/2021 06/03/2021 7:34 PM CDT R/O COVID-19 12/22/2022 12/22/2022 12/22/2022 12:2 5 PM CDT R/O COVID-19 09/07/2023 09/07/2023 09/07/2023 9:52 PM THEATER SET PRODUCTION DESIGNER documented as of this encounter Care Teams Hospital Insurance Representative Relationship Specialty Start Date End Date Kassy Jay MD [address] [place] [address] [address] [place] [phone] PCP - General Family Practice 12/04/22 documented as of this encounter
--- OUTSIDE RECORDS SUMMARY | 2025-08-21 14:01 | XMS_ITS | Encounter Summary ---
Author Organization [facility] Address [address] [place] [address] Care Team Providers Care Gas Technician Name Role Phone Kassy Jay MD Primary Care Provider [phone] Encounter Details Date Type Department Care Team (Late Contact Info) Description 1998 Outpatient Historical [facility] MAURICIO Yadav, Alley Cid MD [address] [place] [address] Social History Tobacco Use Types Packs/Day Years Used Date Smoking Tobacco: Never Assessed Comments Unknown Sex and Gender Information Value Date Recorded Sex Assigned at Not on file Legal Sex Female 4:02 AM BAKER HELPER Gender Identity Not on file Sexual Orientation Not on file documented as of this encounter Plan of Treatment Upcoming Encounters Date Type Department Care Team (Late Contact Info) Description 09/25/2025 8:30 AM BAKER HELPER Video Visit [facility] Adult Psychiatry [place] [address] [place] [phone] Thanh, Argelia Lopez NP [address] [place] [phone] documented as of this encounter Visit Diagnoses Not on filedocumented in this encounter Additional Health Concerns Infection Onset Date Last Indicated Resolved Time R/O COVID-19 06/02/2021 06/03/202106/03/2021 7:34 PM CDT R/O COVID-19 12/22/2022 12/22/2022 12/22/2022 12:2 5 PM CDT R/O COVID-19 09/07/2023 09/07/2023 09/07/2023 9:52 PM BAKER HELPER documented as of this encounter Care Teams Gas Technician Relationship Specialty Start Date End Date Kassy Jay MD [address] [facility] [address] [place] [phone] PCP - General Family Practice 12/04/22 documented as of this encounter
--- OUTSIDE RECORDS SUMMARY | 2025-08-21 14:01 | XMS_ITS | Encounter Summary ---
Author Organization [facility] Address [address] [place] [address] Care Team Providers Care Dice Spotter Name Role Phone Kassy Jay MD Primary Care Provider [phone] Encounter Details Date Type Department Care Team (Late Contact Info) Description 1998 Outpatient Historical [facility] Pediatrics - [facility] [address] [place] [address] Darren Tabor MD NO ADDRESS ON FILE Social History Tobacco Use Types Packs/Day Years Used Date Smoking Tobacco: Never Assessed Comments Unknown Sex and Gender Information Value Date Recorded Sex Assigned at Not on file Legal Sex Female 4:02 AM FARM LOAN INSPECTOR Gender Identity Not on file Sexual Orientation Not on file documented as of this encounter Plan of Treatment Upcoming Encounters Date Type Department Care Team (Late Contact Info) Description 09/25/2025 8:30 AM FARM LOAN INSPECTOR Video Visit [facility] Adult Psychiatry [place] [address] [phone] Thanh, Argelia Lopez NP [address] [address] documented as of this encounter Visit Diagnoses Not on filedocumented in this encounter Additional Health Concerns Infection Onset Date Last Indicated Resolved Time R/O COVID-19 06/02/2021 06/03/2021 06/03/2021 7:34 PM CDT R/O COVID-19 12/22/2022 12/22/2022 12/22/2022 12:2 5 PM CDT R/O COVID-19 09/07/2023 09/07/2023 09/07/2023 9:52 PM FARM LOAN INSPECTOR documented as of this encounter Care Teams Dice Spotter Relationship Specialty Start Date End Date Kassy Jay MD [address] [facility] [address] [place] [phone] PCP - General Family Practice 12/04/22 documented as of this encounter
--- OUTSIDE RECORDS SUMMARY | 2025-08-21 14:01 | XMS_ITS | Encounter Summary ---
Author Organization [facility] Address [address] [place] [address] Care Team Providers Care Med Asst Name Role Phone Kassy Jay MD Primary Care Provider [phone] Encounter Details Date Type Department Care Team (Late Contact Info) Description 1998 Outpatient Historical [facility] Darren Bansal MD NO ADDRESS ON FILE Social History Tobacco Use Types Packs/Day Years Used Date Smoking Tobacco: Never Assessed Comments Unknown Sex and Gender Information Value Date Recorded Sex Assigned at Not on file Legal Sex Female 4:02 AM COAL DELIVERER Gender Identity Not on file Sexual Orientation Not on file documented as of this encounter Plan of Treatment Upcoming Encounters Date Type Department Care Team ([facility] Contact Info) Description 09/25/2025 8:30 AM COAL DELIVERER Video Visit [facility] Adult Psychiatry Var[place] [address] [place] [address] [facility] Argelia Lopez NP [address] [address] documented as of this encounter Visit Diagnoses Not on filedocumented in this encounter Additional Health Concerns Infection Onset Date Last Indicated Resolved Time R/O COVID-19 06/02/2021 06/03/2021 06/03/2021 7:34 PM CDT R/O COVID-19 12/22/2022 12/22/2022 12/22/2022 12:2 5 PM CDT R/O COVID-19 09/07/2023 09/07/2023 09/07/2023 9:52 PM COAL DELIVERER documented as of this encounter Care Teams Med Asst Relationship Specialty Start Date End Date Kassy Jay MD [address] [place] [phone] PCP - General Family Practice 12/04/22 documented as of this encounter
--- OUTSIDE RECORDS SUMMARY | 2025-08-21 14:01 | XMS_ITS | Encounter Summary ---
Author Organization Address [address] [place] [address] Care Team Providers Care Risk Control Analyst Name Role Phone Kassy Jay MD Primary Care Provider [phone] Encounter Details Date Type Department Care Team (Late st Contact Info) Description 12/06/[address] [facility] Pediatrics - [facility] [address] [place] [address] [place] [address] [place] [address] Social History Tobacco Use Types Packs/Day Years Used Date Smoking Tobacco: Never Assessed Comments Unknown Sex and Gender Information Value Date Recorded Sex Assigned at Not on file Legal Sex Female 4:02 AM RESORT HOST Gender Identity Not on file Sexual Orientation Not on file documented as of this encounter Progress Notes * Lacie Malik MD - 02/24/2008 6:49 PM CDT PATIENT'S AGE: 7 yrs, 9 mths, 1 wk, 3 days VITALS: TEMP: 98.4??f Oral PULSE: 116 Apical, Regular RESPIRATIONS: 20. WEIGHT: [id number] NURSE NAME: Lakeshia Fan J ACCOMPANIED BY: [...] st Contact Info) Description 09/25/2025 8:30 AM RESORT HOST Video Visit [facility] Adult Psychiatry [place] [address] [place] [address] [address] [phone] Argelia Law NP [address] [place] [address] [address] [place] [address] documented as of this encounter Visit Diagnoses Not on filedocumented in this encounter Additional Health Concerns Infection Onset Date Last Indicated Resolved Time R/O COVID-19 06/02/2021 06/03/2021 06/03/2021 7:34 PM CDT R/O COVID-19 12/22/2022 12/22/2022 12/22/2022 12:2 5 PM CDT R/O COVID-19 09/07/2023 09/07/2023 09/07/2023 9:52 PM RESORT HOST documented as of this encounter Care Teams Risk Control Analyst Relationship Specialty Start Date End Date Kassy Jay MD [address] [place] [phone] PCP - General Family Practice 12/04/22 documented as of this encounter
--- OUTSIDE RECORDS SUMMARY | 2025-08-21 14:01 | XMS_ITS | Encounter Summary ---
Author Organization [facility] Address [address] [place] [address] Care Team Providers Care Florist Supplies Salesperson Name Role Phone Kassy Jay MD Primary Care Provider [phone] Encounter Details Date Type Department Care Team (Late Contact Info) Description 1998 Outpatient Historical [facility] Darren Bansal MD NO ADDRESS ON FILE Social History Tobacco Use Types Packs/Day Years Used Date Smoking Tobacco: Never Assessed Comments Unknown Sex and Gender Information Value Date Recorded Sex Assigned at Not on file Legal Sex Female 4:02 AM ADVERTISING DISPATCH CLERKS SUPERVISOR Gender Identity Not on file Sexual Orientation Not on file documented as of this encounter Plan of Treatment Upcoming Encounters Date Type Department Care Team ([facility] Contact Info) Description 09/25/2025 8:30 AM ADVERTISING DISPATCH CLERKS SUPERVISOR Video Visit [facility] Adult Psychiatry Var[place] [address] [phone] [facility] Argelia Lopez NP [address] [address] documented as of this encounter Visit Diagnoses Not on filedocumented in this encounter Additional Health Concerns Infection Onset Date Last Indicated Resolved Time R/O COVID-19 06/02/2021 06/03/2021 06/03/2021 7:34 PM CDT R/O COVID-19 12/22/2022 12/22/2022 12/22/2022 12:2 5 PM CDT R/O COVID-19 09/07/2023 09/07/2023 09/07/2023 9:52 PM ADVERTISING DISPATCH CLERKS SUPERVISOR documented as of this encounter Care Teams Florist Supplies Salesperson Relationship Specialty Start Date End Date Kassy aJy MD [address] [place] [phone] PCP - General Family Practice 12/04/22 documented as of this encounter
--- OUTSIDE RECORDS SUMMARY | 2025-08-21 14:01 | XMS_ITS | Encounter Summary ---
Author Organization [facility] Address [address] [place] [address] Care Team Providers Care Product Safety And Standards Engineer Name Role Phone Kassy Jay MD Primary Care Provider [phone] Encounter Details Date Type Department Care Team (Late Contact Info) Description 04/06/1999 Outpatient Historical [facility] Pediatrics - [facility] [address] [place] [address] Darren Tabor MD NO ADDRESS ON FILE Social History Tobacco Use Types Packs/Day Years Used Date Smoking Tobacco: Never Assessed Comments Unknown Sex and Gender Information Value Date Recorded Sex Assigned at Not on file Legal Sex Female 4:02 AM RECREATION CLERK Gender Identity Not on file Sexual Orientation Not on file documented as of this encounter Plan of Treatment Upcoming Encounters Date Type Department Care Team (Late Contact Info) Description 09/25/2025 8:30 AM RECREATION CLERK Video Visit [facility] Adult Psychiatry [place] [address] [phone] Thanh, Argelia Lopez NP [address] [address] documented as of this encounter Visit Diagnoses Not on filedocumented in this encounter Additional Health Concerns Infection Onset Date Last Indicated Resolved Time R/O COVID-19 06/02/2021 06/03/2021 06/03/2021 7:34 PM CDT R/O COVID-19 12/22/2022 12/22/2022 12/22/2022 12:2 5 PM CDT R/O COVID-19 09/07/2023 09/07/2023 09/07/2023 9:52 PM RECREATION CLERK documented as of this encounter Care Teams Product Safety And Standards Engineer Relationship Specialty Start Date End Date Kassy Jay MD [address] [facility] [place] [phone] PCP - General Family Practice 12/04/22 documented as of this encounter
--- OUTSIDE RECORDS SUMMARY | 2025-08-21 14:01 | XMS_ITS | Encounter Summary ---
Author Organization [facility] Address [address] [place] [address] Care Team Providers Care Cattle Knocker Name Role Phone Kassy Jay MD Primary Care Provider [phone] Encounter Details Date Type Department Care Team (Late Contact Info) Description 1998 Outpatient Historical [facility] MAURICIO Yadav, Alley Cid MD [address] [place] [address] Social History Tobacco Use Types Packs/Day Years Used Date Smoking Tobacco: Never Assessed Comments Unknown Sex and Gender Information Value Date Recorded Sex Assigned at Not on file Legal Sex Female 4:02 AM SENIOR COUNSEL Gender Identity Not on file Sexual Orientation Not on file documented as of this encounter Plan of Treatment Upcoming Encounters Date Type Department Care Team (Late Contact Info) Description 09/25/2025 8:30 AM SENIOR COUNSEL Video Visit [facility] Adult Psychiatry [place] [address] [place] [phone] Thanh, Argelia Lopez NP [address] [place] [address] documented as of this encounter Visit Diagnoses Not on filedocumented in this encounter Additional Health Concerns Infection Onset Date Last Indicated Resolved Time R/O COVID-19 06/02/2021 06/03/202106/03/2021 7:34 PM CDT R/O COVID-19 12/22/2022 12/22/2022 12/22/2022 12:2 5 PM CDT R/O COVID-19 09/07/2023 09/07/2023 09/07/2023 9:52 PM SENIOR COUNSEL documented as of this encounter Care Teams Cattle Knocker Relationship Specialty Start Date End Date Kassy Jay MD [address] [facility] [place] [place] [phone] PCP - General Family Practice 12/04/22 documented as of this encounter
--- OUTSIDE RECORDS SUMMARY | 2025-08-21 14:01 | XMS_ITS | Encounter Summary ---
Author Organization [facility] Address [address] [place] [address] Care Team Providers Care Live Games Dealer Name Role Phone Kassy Jay MD Primary Care Provider [phone] Encounter Details Date Type Department Care Team (Late Contact Info) Description 1998 Outpatient Historical [facility] Darren Bansal MD NO ADDRESS ON FILE Social History Tobacco Use Types Packs/Day Years Used Date Smoking Tobacco: Never Assessed Comments Unknown Sex and Gender Information Value Date Recorded Sex Assigned at Not on file Legal Sex Female 4:02 AM PLANISHING HAMMER OPERATOR Gender Identity Not on file Sexual Orientation Not on file documented as of this encounter Plan of Treatment Upcoming Encounters Date Type Department Care Team ([facility] Contact Info) Description 09/25/2025 8:30 AM PLANISHING HAMMER OPERATOR Video Visit [facility] Adult Psychiatry Varinder [address] [phone] [facility] Argelia Lopez NP [address] [address] documented as of this encounter Visit Diagnoses Not on filedocumented in this encounter Additional Health Concerns Infection Onset Date Last Indicated Resolved Time R/O COVID-19 06/02/2021 06/03/2021 06/03/2021 7:34 PM CDT R/O COVID-19 12/22/2022 12/22/2022 12/22/2022 12:2 5 PM CDT R/O COVID-19 09/07/2023 09/07/2023 09/07/2023 9:52 PM PLANISHING HAMMER OPERATOR documented as of this encounter Care Teams Live Games Dealer Relationship Specialty Start Date End Date Kassy Jay MD [address] [place] [phone] PCP - General Family Practice 12/04/22 documented as of this encounter
--- OUTSIDE RECORDS SUMMARY | 2025-08-21 14:01 | XMS_ITS | Clinical Summary ---
Author Organization [facility] Address [address] [place] [address] Care Team Providers Care Chief Information Security Officer Name Role Phone Kassy Jay MD Primary Care Provider [phone] No, Physician Unavailable Allergies Active Allergy Reactions [...] 08/25/2022 Assessment & Plan (08/26/2022 1:10 PM LANG INTERPRETER): - pt presenting after shaking episode similar to previous episodes of psychogenic nonepileptic seizures. 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 - Admitted for Observation secondary to sedation. Back to baseline mental status today. Assessment & Plan (08/25/2022 10:54 PM LANG INTERPRETER): - pt presenting after shaking episode similar [...] of hypoglycemia since April, was following with [facility] Endocrinology. Recently started on diazoxide. BG [...] sent hypoglycemia labs. Discussed with veronica, outpatient telemarketer Dr. Mejia will f/u with results & [...] 07/20/2022 Assessment & Plan (08/25/2022 10:40 PM LANG INTERPRETER): -cont linzess Assessment & Plan (07/21/2022 10:08 AM CDT): - Continue home Linzess and Colace Assessment & Plan (07/20/2022 8:31 PM CDT): -Continue home Linzess and Colace. Asthma 11/06/2020 Assessment & Plan (08/26/2022 1:11 PM LANG INTERPRETER): - stable, cont home inhalers Assessment & Plan (08/25/2022 10:41 PM LANG INTERPRETER): -cont home inhalers Gastroesophageal reflux disease 11/06/2020 Assessment & Plan (08/26/2022 1:11 PM LANG INTERPRETER): -cont pepcid and ppi Assessment & Plan (08/25/2022 10:40 PM LANG INTERPRETER): - cont pepcid and ppi Assessment & [...] 9:01 AM CDT): Patient reports follows with [facility] psychiatry. Pharmacy list confirmed with patient. Concern of polypharmacy discussed with patient. - witnessed pseudoseizure 07/22 AM, VS stable and BG 111. No meds given. Self resolved. - Continue home Lamictal, Topomax and gabapentin Assessment & Plan (07/20/2022 8:27 PM CDT): -Patient reports follows with [facility] psychiatry. Pharmacy list confirmed with patient. [...] celexa Assessment & Plan (08/26/2022 1:11 PM LANG INTERPRETER): - patient with chart history of BARBIE, MDD, ptsd, and borderline personality disorder. - follows with psychiatrist and on extensive medication regimen. - cont home duloxetine, lurasidone, lamotrigine, and prazosin. - held several medications including nortriptyline, temazepam,clonazepam and gabapentin given drowsiness Assessment & Plan (08/25/2022 10:46 PM LANG INTERPRETER): - patient with chart history of BARBIE, [...] 01/21/2017 Overview (05/17/2020): Overview: Overview: Thinks from [facility]; has follow up with 02/06/17 Asthma, moderate [...] on file Legal Sex Female 11:33 PM LANG INTERPRETER Gender Identity Female 05/17/2020 9:28 AM CDT Sexual Orientation Straight 05/17/2020 9: 28 AM CDT Last Filed Vital Signs Vital Sign Reading Time Taken Comments Blood Pressure 106/54 08/26/2022 8:50 AM LANG INTERPRETER Pulse 92 08/26/2022 8:18 AM LANG INTERPRETER Temperature 36.6 C (97.9 F) 08/26/2022 8:18 AM LANG INTERPRETER Respiratory Rate 16 08/26/2022 8:18 AM LANG INTERPRETER Oxygen Saturation 97% 08/26/2022 8:18 AM LANG INTERPRETER Inhaled Oxygen Concentration - - Weight 93.4 kg (205 lb 14.4 oz) 022 11:06 PM LANG INTERPRETER Height 154.9 cm (5' 1) 08/25/2022 11:0 6 PM LANG INTERPRETER Body Mass Index 38.9 08/25/2022 11:06 PM LANG INTERPRETER Plan of Treatment Health Maintenance Due Date [...] Varicella Vaccines Completed 02/15/2016, 02/26/[address] [facility] CHOICE OOS [facility] CHO[facility] O[facility] Member Subscriber Plan / Payer (Ef fective 2017-Present) Name:Isaura Holland Relation to Subscriber:Child Name:ORIN HOLLAND Date of :1899 (Home) Address: [address] [place] [address] Payer ID:[id number] (NAIC) Type:[employer] Address: [address] BLUE [employer] BLUE ACC CHOICE OOS [place] Advance Directives For more information, please contact: [phone] * Full Code (Latest Code Status on File) Date Activated Date Inactivated Comments 08/25/2022 11:05 PM 08/26/2022 6:08 PM * Full Code Date Activated Date Inactivated Comments 07/20/2022 7:11 PM 07/23/2022 7:19 PM Care Teams Chief Information Security Officer Relationship Specialty Start Date End Date Kassy Jay MD [address] [place] [phone] PCP - General Family Practice 07/21/22 No, Physician 08/26/22
--- OUTSIDE RECORDS SUMMARY | 2025-08-21 14:01 | XMS_ITS | Encounter Summary ---
Author Organization [facility] Address [address] [place] [address] Care Team Providers Care Utility Worker Driver Name Role Phone Kassy Jay MD Primary Care Provider [phone] Encounter Details Date Type Department Care Team (Late Contact Info) Description 1998 Outpatient Historical [facility] Darren Bansal MD NO ADDRESS ON FILE Social History Tobacco Use Types Packs/Day Years Used Date Smoking Tobacco: Never Assessed Comments Unknown Sex and Gender Information Value Date Recorded Sex Assigned at Not on file Legal Sex Female 4:02 AM STENOTYPIST Gender Identity Not on file Sexual Orientation Not on file documented as of this encounter Plan of Treatment Upcoming Encounters Date Type Department Care Team ([facility] Contact Info) Description 09/25/2025 8:30 AM STENOTYPIST Video Visit [facility] Adult Psychiatry [place] [address] [phone] [facility] Argelia Lopez NP [address] [address] documented as of this encounter Visit Diagnoses Not on filedocumented in this encounter Additional Health Concerns Infection Onset Date Last Indicated Resolved Time R/O COVID-19 06/02/2021 06/03/2021 06/03/2021 7:34 PM CDT R/O COVID-19 12/22/2022 12/22/2022 12/22/2022 12:2 5 PM CDT R/O COVID-19 09/07/2023 09/07/2023 09/07/2023 9:52 PM STENOTYPIST documented as of this encounter Care Teams Utility Worker Driver Relationship Specialty Start Date End Date Kassy Jay MD [address] [place] [phone] PCP - General Family Practice 12/04/22 documented as of this encounter
--- OUTSIDE RECORDS SUMMARY | 2025-08-21 14:01 | XMS_ITS | Encounter Summary ---
Author Organization [facility] Address [address] [place] [address] Care Team Providers Care Aerial Gunner Name Role Phone Kassy Jay MD Primary Care Provider [phone] Encounter Details Date Type Department Care Team (Late Contact Info) Description 02/11/1999 Outpatient Historical [facility] Pediatric[facility] - [facility] [address] [place] [address] Darren Tabor MD NO ADDRESS ON FILE Social History Tobacco Use Types Packs/Day Years Used Date Smoking Tobacco: Never Assessed Comments Unknown Sex and Gender Information Value Date Recorded Sex Assigned at Not on file Legal Sex Female 4:02 AM SPECIALTY COOK Gender Identity Not on file Sexual Orientation Not on file documented as of this encounter Plan of Treatment Upcoming Encounters Date Type Department Care Team (Late Contact Info) Description 09/25/2025 8:30 AM SPECIALTY COOK Video Visit [facility] Adult Psychiatry [place] [address] [phone] Thanh, Argelia Lopez NP [address] [id number] documented as of this encounter Visit Diagnoses Not on filedocumented in this encounter Additional Health Concerns Infection Onset Date Last Indicated Resolved Time R/O COVID-19 06/02/2021 06/03/2021 06/03/2021 7:34 PM CDT R/O COVID-19 12/22/2022 12/22/2022 12/22/2022 12:2 5 PM CDT R/O COVID-19 09/07/2023 09/07/2023 09/07/2023 9:52 PM SPECIALTY COOK documented as of this encounter Care Teams Aerial Gunner Relationship Specialty Start Date End Date Kassy Jay MD [address] [facility] [place] [phone] PCP - General Family Practice 12/04/22 documented as of this encounter
--- OUTSIDE RECORDS SUMMARY | 2025-08-21 14:01 | XMS_ITS | Encounter Summary ---
Author Organization [facility] Address [address] [place] [address] Care Team Providers Care Special Distribution Clerk Name Role Phone Kassy Jay MD Primary Care Provider [phone] Encounter Details Date Type Department Care Team (Late st Contact Info) Description 08/11/[address] [facility] Pediatrics - [facility] [address] [place] [address] [place] [address] [place] [address] Social History Tobacco Use Types Packs/Day Years Used Date Smoking Tobacco: Never Assessed Comments Unknown Sex and Gender Information Value Date Recorded Sex Assigned at Not on file Legal Sex Female 4:02 AM MALTED MILK MIXER Gender Identity Not on file Sexual Orientation [...] st Contact Info) Description 09/25/2025 8:30 AM MALTED MILK MIXER Video Visit [facility] Adult Psychiatry [place] [address] [address] [place] [phone] Argelia Law NP [address] [address] [place] [address] documented as of this encounter Visit Diagnoses Not on filedocumented in this encounter Additional Health Concerns Infection Onset Date Last Indicated Resolved Time R/O COVID-19 06/02/2021 06/03/2021 06/03/2021 7:34 PM CDT R/O COVID-19 12/22/2022 12/22/2022 12/22/2022 12:2 5 PM CDT R/O COVID-19 09/07/2023 09/07/2023 09/07/2023 9:52 PM MALTED MILK MIXER documented as of this encounter Care Teams Special Distribution Clerk Relationship Specialty Start Date End Date Kassy Jay MD [address] [place] [phone] PCP - General Family Practice 12/04/22 documented as of this encounter
--- NOTE | 2025-08-21 14:05 | ED.SEIZURE ---
HPI - Seizure General Chief Complaint: Seizure Stated Complaint: seizure Time Seen by Provider: 08/21/25 12:18 History of Present Illness HPI Narrative: Patient has history of PNES and was witnessed to have seizure like activity earlier today consistent with her PNES. She is now denying any complaints, other than feeling kind of tired. She did take an Ativan this morning. Related Data Home Medications ?Medication ?Instructions ?Recorded ?Confirmed ?Last Taken ?Type benztropine 1 mg tablet 1 mg PO BID 06/22/25 07/18/25 07/18/25 History cariprazine 6 mg capsule (Vraylar) 6 mg PO DAILY 06/22/25 07/18/25 07/18/25 History famotidine 20 mg tablet (Pepcid) 20 mg PO BID 06/22/25 07/18/25 07/18/25 History fluoxetine 20 mg capsule 20 mg PO DAILY 06/22/25 07/18/25 07/18/25 History fluoxetine 40 mg capsule 40 mg PO DAILY 06/22/25 07/18/25 07/18/25 History lorazepam 2 mg tablet 2 mg PO TID 06/22/25 07/18/25 07/18/25 History methylphenidate HCl 18 mg 18 mg PO ONCE 06/22/25 07/18/25 07/18/25 History tablet,extended release 24 hr (Concerta) methylphenidate HCl 5 mg tablet 5 mg PO BID 06/22/25 07/18/25 07/18/25 History (Ritalin) thiamine HCl (vitamin B1) 250 mg 250 mg PO DAILY 06/22/25 07/18/25 07/18/25 History tablet (Vitamin B-1) trazodone 100 mg tablet 200 mg PO HS 06/22/25 07/18/25 07/17/25 History Allergies Allergy/AdvReac Type Severity Reaction Status Date / Time amoxicillin Allergy Severe Anaphylaxis Verified 08/21/25 12:13 Review of Systems Review of Systems: All systems reviewed & are unremarkable except as noted in HPI and below PMFSH Past Medical History Medical History Anxiety GERD (gastroesophageal reflux disease) Bipolar disorder Exam Narrative: EXAMINATION OF ORGAN SYSTEMS/BODY AREAS: Constitutional: Vital signs per nursing GENERAL:[No acute distress, non-toxic appearing.] HEAD: Normal with no signs of head trauma. EYES: EOMI, conjunctiva normal ENT: Hearing grossly intact LUNGS: Nonlabored breathing. HEART: [Regular rate and rhythm] ABD: [Soft], [nontender to palpation] EXT: Normal range of motion SKIN: [No rashes or lesions.] NEURO: [Alert and oriented x 3. No gross focal sensory or strength deficits. Speaking with clear speech, ambulating with normal steady gait] PSYCH: Normal affect Course Vital Signs Vital signs: Vital Signs Temperature 97.6 F 08/21/25 12:13 Pulse Rate 74 08/21/25 12:13 Respiratory Rate 14 08/21/25 12:13 Blood Pressure 116/79 08/21/25 12:13 Pulse Oximetry 97 08/21/25 12:13 Temperature 97.6 F 08/21/25 12:13 Pulse Rate 73 08/21/25 13:09 Respiratory Rate 14 08/21/25 13:09 Blood Pressure 116/78 08/21/25 13:09 Pulse Oximetry 98 08/21/25 13:09 MDM - Seizure MDM Narrative Medical decision making narrative: Patient presents here with concern for possible PNES, has history of this, she is now feeling better, cannot really recall what happened, on exam her neurologic exam is normal, she is speaking with clear speech, ambulating normal steady gait. I did offer possibly Ativan if needed, patient states she feels ready to go home. She has follow-up with her specialist in September. At let her know she can return to the ER for any further issues. Discharge Plan Discharge Clinical Impression: Psychogenic nonepileptic seizure Patient Disposition: Home Condition: Stable Instructions: Nonepileptic Seizures (ED) Additional Instructions: Please follow-up with your doctor that you usually see for PNES, if you have any further issues he can always return to the emergency room. Patient Language: Sami Prescriptions: No Action benztropine 1 mg tablet 1 mg PO BID methylphenidate HCl [Concerta] 18 mg tablet extended release 24hr 18 mg PO ONCE famotidine [Pepcid] 20 mg tablet 20 mg PO BID fluoxetine 40 mg capsule 40 mg PO DAILY lorazepam 2 mg tablet 2 mg PO TID fluoxetine 20 mg capsule 20 mg PO DAILY methylphenidate HCl [Ritalin] 5 mg tablet 5 mg PO BID trazodone 100 mg tablet 200 mg PO HS thiamine HCl (vitamin B1) [Vitamin B-1] 250 mg tablet 250 mg PO DAILY Vraylar 6 mg capsule 6 mg PO DAILY Follow-up/Referrals: UNKNOWN,DOCTOR [Primary Care Provider]
== END 2025-08-21 13:10 | disposition home or self-care (01) ==
LOC: ANHED 12:54
PROVIDERS: Emergency Provider Emergency Medicine
DX: R56.9 Unspecified convulsions (principal); K21.9 Gastro-esophageal reflux disease without esophagitis; F41.9 Anxiety disorder, unspecified; F31.9 Bipolar disorder, unspecified; Z79.899 Other long term (current) drug therapy
CPT/HCPCS: 99282